=== PATIENT | female | born 1960 | race Caucasian/White ===

== ENCOUNTER 2018-07-21 00:48 | Outpatient (CLI) | payer MEDICARE, SELFPAY ==
--- NOTE | 2018-07-21 07:30 | MERGE_ITS ---
*[facility]* *[facility]* [address] [place] [address] Date of study: 07/21/2018 Transthoracic Echocardiography M-mode, complete 2D, complete spectral Doppler, and color Doppler *STUDY CONCLUSIONS* Summary: 1. Left ventricle: The cavity size was normal. Wall thickness was increased in a pattern of mild LVH. Systolic function was normal. The estimated ejection fraction was 60-65%. Wall motion was normal; there were no regional wall motion abnormalities. 2. Right ventricle: The cavity size was normal. Wall thickness was mildly increased. Systolic function was normal. *PATIENT PRESENTATION* Height: 165.1cm ((65in) ) S/D Pressure: 125 / 66 Weight: 122.5kg ((269.4lb) ) BSA: 2.44m^2 Test start time: 07:40 AM. Test stop time: 08:30 AM. CONSULTING Steven Jeffries MD PERFORMING Unknown PERFORMING [facility] ENVIRONMENTAL ADVISOR RT Tatiana (R)(CT), [facility] ORDERING Francy Lowe REFERRING Francy Lowe *PROCEDURE DATA* Procedure information: The patient was identified by two identifiers. This study was interpreted by [facility]. Pertinent images and digital data are archived for permanent storage and are available for subsequent review. No prior study was available for comparison. Study status: Routine. Transthoracic echocardiography. M-mode, complete 2D, complete spectral Doppler, and color Doppler. A Transthoracic Echocardiogram was performed. Scanning was performed from the parasternal, apical, subcostal, and suprasternal notch acoustic windows. Images were obtained using an [id number] cardiac ultrasound machine. Image quality was adequate. Study completion: The patient tolerated the procedure well. History: PMH: Intermittent chest pain r07.89. *CARDIAC ANATOMY* Left ventricle: The cavity size was normal. Wall thickness was increased in a pattern of mild LVH. Systolic function was normal. The estimated ejection fraction was 60-65%. Wall motion was normal; there were no regional wall motion abnormalities. Diastolic parameters were normal. Aortic valve: Trileaflet; normal thickness leaflets. Mobility was not restricted. Doppler: Transvalvular velocity was within the normal range. There was no stenosis. There was no significant regurgitation. VTI ratio of LVOT to aortic valve: 0.68. Valve area (VTI): 2.3cm^2. Indexed valve area (VTI): 1cm^2/m^2. Peak velocity ratio of LVOT to aortic valve: 0.55. Valve area (Vmax): 1.9cm^2. Indexed valve area (Vmax): 0.8cm^2/m^2. Mean velocity ratio of LVOT to aortic valve: 0.59. Valve area (Vmean): 2.1cm^2. Indexed valve area (Vmean): 0.8cm^2/m^2. Mean gradient (S): 6.8mm Hg. Peak gradient (S): 12.6mm Hg. Aorta: Aortic root: The aortic root was normal in size. Ascending aorta: The ascending aorta was normal in size. Mitral valve: Structurally normal valve. Mobility was not restricted. Doppler: Transvalvular velocity was within the normal range. There was no evidence for stenosis. There was no significant regurgitation. Valve area by pressure half-time: 3.7cm^2. Indexed valve area by pressure half-time: 1.5cm^2/m^2. Left atrium: The atrium was normal in size. Right ventricle: The cavity size was normal. Wall thickness was mildly increased. Systolic function was normal. Pulmonic valve: Doppler: Transvalvular velocity was within the normal range. There was no evidence for stenosis. There was no significant regurgitation. Peak gradient (S): 5.2mm Hg. Tricuspid valve: Structurally normal valve. Doppler: Transvalvular velocity was within the normal range. There was no evidence for stenosis. There was no significant regurgitation. Pulmonary artery: Systolic pressure could not be accurately estimated. Right atrium: The atrium was normal in size. Pericardium: A prominent pericardial fat pad was present. Systemic veins: Inferior vena cava: Well visualized. The vessel was patent and normal in size. The respirophasic diameter changes were in the normal range (greater than or equal to 50%). Baseline ECG: Normal sinus rhythm. Measurements Left ventricle Value Reference LV ID, ED, PLAX 4.8 cm 3.5 - 6.0 LV ID, ES, PLAX 3.3 cm 2.1 - 4.0 LV PW thickness, ED, PLAX 1.2 cm LV end-diastolic volume, 1-p A2C 69 ml LV ejection fraction, 1-p A2C 64 % LV end-diastolic volume, 1-p A4C 68 ml LV ejection fraction, 1-p A4C 57 % LV e', lateral 0.104 m/sec LV E/e', lateral 6 LV e', medial 0.075 m/sec LV E/e', medial 8 LV e', average 0.09 m/sec LV E/e', average 7 Ventricular septum Value Reference IVS thickness, ED, PLAX 1.2 cm LVOT Value Reference LVOT ID, A-P 2.1 cm LVOT area 3.5 cm^2 LVOT peak velocity, S 0.97 m/sec LVOT mean velocity, S 0.75 m/sec LVOT VTI, S 22.4 cm LVOT peak gradient, S 3.8 mm Hg LVOT mean gradient, S 2.4 mm Hg Stroke volume (SV), LVOT DP 77 ml Stroke index (SV/bsa), LVOT DP 32 ml/m^2 Aortic valve Value Reference Aortic valve peak velocity, S 1.8 m/sec Aortic valve mean velocity, S 1.26 m/sec Aortic valve VTI, S 33.0 cm Aortic mean gradient, S 6.8 mm Hg Aortic peak gradient, S 12.6 mm Hg VTI ratio, LVOT/AV 0.68 Aortic valve area, VTI 2.3 cm^2 Velocity ratio, peak, LVOT/AV 0.55 Aortic valve area, peak velocity 1.9 cm^2 Velocity ratio, mean, LVOT/AV 0.59 Aortic valve area, mean velocity 2.1 cm^2 Aortic valve area/bsa, mean velocity 0.8 cm^2/m^2 Aorta Value Reference Aortic root ID, ED 2.7 cm Ascending aorta ID, A-P, S 3.3 cm Left atrium Value Reference LA ID, A-P, ES 3.7 cm LA ID/bsa, A-P 1.5 cm/m^2 <=2.2 LA area, ES, A4C 16.8 cm^2 8.8 - 23.4 LA area, ES, A2C 15 cm^2 LA volume/bsa, ES, 1-p A4C 20 ml/m^2 LA volume, ES, 2-p 38 ml LA volume/bsa, ES, 2-p 15 ml/m^2 LA/aortic root ratio 1.36 Mitral valve Value Reference Mitral E-wave peak velocity 0.61 m/sec Mitral A-wave peak velocity 0.71 m/sec Mitral deceleration time 208 ms 150 - 230 Mitral pressure half-time 60 ms Mitral E/A ratio, peak 0.85 Mitral valve area, PHT, DP 3.7 cm^2 Pulmonary veins Value Reference Pulmonary vein peak velocity, S 0.4 m/sec Pulmonary vein peak velocity, D 0.25 m/sec Pulmonary vein velocity ratio, peak, 1.6 S/D Pulmonary vein A-wave reversal peak 0.3 m/sec velocity Pulmonary vein A-wave reversal 108 ms duration Tricuspid valve Value Reference Tricuspid regurg peak velocity 2.6 m/sec Tricuspid peak RV-RA gradient 27.6 mm Hg Right atrium Value Reference RA area, ES, A4C 13.4 cm^2 8.3 - 19.5 Pulmonic valve Value Reference Pulmonic peak gradient, S 5.2 mm Hg Legend: (L) and (H) michelle values outside specified reference range. I have personally reviewed the images and have reviewed and edited the reported findings. Electronically signed by John Telles 07/21/2018 11:40
== END 2018-07-21 01:08 ==
PROVIDERS: PCP Internal Medicine; Visit Provider Nurse Practitioner Family
DX: R07.89 Other chest pain (principal); I10 Essential (primary) hypertension; E78.5 Hyperlipidemia, unspecified
CPT/HCPCS: 93306

== ENCOUNTER 2018-07-27 00:21 | Outpatient (CLI) | payer MEDICARE, SELFPAY ==
--- NOTE | 2018-07-27 08:30 | MERGEMPI_ITS ---
*[facility]* *[facility]* [address] [place] [address] Myocardial Perfusion Imaging - SPECT Donnie protocol Date of study: 07/27/2018 *PATIENT PRESENTATION* Height: 165.1cm (65in) Blood Pressure: Weight: 125.9kg (277lb) BSA: 2.47m^2 Referring physician: Carlos Jenkins MD Ordering physician: Francy Lowe Impressions: Normal perfusion by Tc99m Sestamibi Imaging. Summary: 1. Myocardial perfusion imaging: No myocardial perfusion defects noted. 2. The calculated left ventricular ejection fraction after stress: 61%. No left ventricular regional motion abnormality. 3. Stress: The target heart rate was not achieved. Indication: R07.89. History: REASON FOR TESTING: PATIENT REPORTS INTERMITTENT DULL ACHE MIDSTERNAL CHEST PAIN WHICH OCCASIONALLY RADIATES TO HER JAW. SHE ALSO OCCASIONALLY HAS POKER LIKE PAIN BEHIND LEFT SHOULDER BLADE, AND OCCASIONAL DULL ACHE UNDER LEFT BREAST. THESE SYMPTOMS MOSTLY HAPPEN AT REST AND OCCASIONALLY WITH ACTIVITY. SHE REPORTS THESE SYMPTOMS HAVE BEEN HAPPENING FOR APPROXIMATELY A YEAR. THESE SYMPTOMS HAPPEN A COUPLE TIMES A WEEK WITH EPISODES LASTING APPROXIMATELY 30 SECONDS. SHE DENIES CHEST PAIN AND ANY ASSOCIATED SYMPTOMS UPON ARRIVAL TO TESTING TODAY. SIGNIFICANT PAST MEDICAL HISTORY: DIABETES SMOKING STATUS: CURRENT SMOKER WHO HAS SMOKED FOR 42 YEARS 1/2 PPD. EXERCISE ROUTINE: SEDENTARY LIFESTYLE. Risk factors: Family history of coronary artery disease. Current tobacco use. Diabetes mellitus. Obesity. Dyslipidemia. Cholesterol: 270mg/dl. HDL: 42mg/dl. LDL: 193mg/dl. Triglycerides: 157mg/dl. ALLERGIES: ZOLOFT, INDOCEN, PERCOCET, VICODIN, METFORMIN HCL, CODEINE, CELEXA, VICTOZA, BYETTA, VYTORIN, CRESTOR, LIPITOR, WELLBUTRIN. MEDICATIONS: PRILOSEC 40 MG BID, CYCLOBENZAPRINE HCL 10 MG HS, CICLOPIROX 8% EXTERNAL SOLUTION--REMOVE EVERY 7 DAYS, TRESIBA 82 UNITS DAILY. Imaging Technique: Protocol: Donnie protocol. Acquisition: Gated SPECT; 1 day - rest/stress. The patient was imaged in the supine position. Attenuation correction used. Isotope administration: - Rest. Tc[99m]-sestamibi. Dose: 12.4mCi. Injection time: 08:30 AM. Injection to stress time: 00:45. - Stress. Tc[99m]-sestamibi. Dose: 38mCi. Injection time: 10:34 AM. 1-2 min before end of exercise Baseline ECG: SINUS RHYTHM. 74BPM. Stress protocol: + +---+ + + !Stage !HR !BP (mmHg) !Comments ! + +---+ + + !Baseline supine !74 !130/86 (101)! ! + +---+ + + !Baseline standing !85 !140/88 (105)! ! + +---+ + + !Stage I; 1.7mph, 10degrees; 3 min!113! ! ! + +---+ + + !Stage II; 2.5mph, 12degrees; 3 !135! ! ! !min ! ! ! ! + +---+ + + !Recovery; 1 min !117!200/80 (120)! ! + +---+ + + !Recovery; 3 min !98 !142/80 (101)! ! + +---+ + + !1 min !107!120/70 (87) !Inject Regadenoson.! + +---+ + + !2 min !100!120/72 (88) ! ! + +---+ + + !3 min !99 !120/80 (93) ! ! + +---+ + + * Stress results: Maximal heart rate during stress was 135bpm (83% of maximal predicted heart rate). The maximal predicted heart rate was 163bpm. The target heart rate was not achieved. The rate-pressure product for the peak heart rate and blood pressure was 20178gd Hg/min. Stress ECG: STRESS TEST ENDED IN 5 MINUTES 55 SECONDS DUE TO FATIGUE AND KNEE DISCOMFORT. NORMAL HEART RATE AND BLOOD PRESSURE RESPONSE TO EXERCISE. MAX HEART RATE: 135 % OF TARGET HEART RATE ACHIEVED--UNABLE TO OBTAIN DUE TO ARTIFACT. MET'S: UNABLE TO OBTAIN DUE TO ARTIFACT. NO ECTOPY. NO ANGINA. NO SIGNIFICANT ST SEGMENT CHANGES. FUNCTIONAL CAPACITY: AVERAGE PATIENT TRANSITIONED LEXISCAN INJECTION DUE TO INABILITY TO ACHEIVE 85% TARGET HEART RATE. LEXISCAN STRESS TEST ENDED IN 6 MINUTES 43 SECONDS. NORMAL HEART RATE AND BLOOD PRESSURE RESPONSE TO LEXISCAN INJECTION. NO ECTOPY. NO ANGINA. NO SIGNIFICANT ST SEGMENT CHANGES. Myocardial perfusion: Imaging information: gated. No myocardial perfusion defects noted. Ventricular Function (Wall Motion): The calculated left ventricular ejection fraction after stress: 61%. No left ventricular regional motion abnormality. Study data: Carlos Jenkins MD supervised and was readily available during the procedure. This study was interpreted by [facility]. Study status: Routine. Consent: The risks, benefits, and alternatives to the procedure were explained to the patient and informed consent was obtained. Procedure: Initial setup. A baseline ECG was recorded. Surface ECG leads and manual cuff blood pressure measurements were monitored. Heart sounds: Normal. Lung sounds: Normal. Treadmill exercise testing was performed using the Donnie protocol. Study completion: All catheters inserted during the procedure were removed. The patient tolerated the procedure well and was discharged from the lab. Discharge: The patient left the laboratory in stable condition. Birthdate: Patient birthdate: 1960. Sex: Gender: female. Study date: Study date: 07/27/2018. Study time: 00:01 AM. Electronically signed by Carlos Jenkins MD 07/27/2018 18:52
[2018-07-27] MEDS: Regadenoson 0.4 MG/5 ML SYR IVP (10:47)
== END 2018-07-27 00:41 ==
PROVIDERS: PCP Internal Medicine; Visit Provider Nurse Practitioner Family
DX: R07.89 Other chest pain (principal); E11.9 Type 2 diabetes mellitus without complications; E78.5 Hyperlipidemia, unspecified; F17.200 Nicotine dependence, unspecified, uncomplicated; Z82.49 Family history of ischemic heart disease and other diseases of the circulatory system
CPT/HCPCS: 78452; 93016; 93018; 93017; J2785

== ENCOUNTER 2019-02-02 22:30 | Outpatient (REF) | payer MEDICARE, SELFPAY ==
[2019-02-02 20:57] LABS: Anion Gap 8.2 mmol/L (3-11); BUN 11 mg/dL (7-18); CO2 28.8 mmol/L (21.0-32.0); CREATININE 0.77 mg/dL (0.55-1.02); Calcium 8.7 mg/dL (8.5-10.1); Calculated LDL 183 mg/dL; Chloride 103 mmol/L (98-107); Cholesterol 250 mg/dL (50-200); Glucose 171 mg/dL (70-100); HDL Cholesterol 41 mg/dL (40-60); Potassium 4.2 mmol/L (3.5-5.1); Sodium 140 mmol/L (136-145); Triglyceride 130 mg/dL (30-150)
== END 2019-02-02 22:50 ==
LOC: NCHCN 22:30
PROVIDERS: PCP Internal Medicine; Visit Provider Nurse Practitioner Family
DX: E78.5 Hyperlipidemia, unspecified (principal)
CPT/HCPCS: 80048; 80061

== ENCOUNTER 2019-05-17 09:44 | Outpatient (REF) | payer MEDICARE, SELFPAY | END 2019-05-17 10:04 | LOC: NCHCN 09:44 | PROVIDERS: PCP Internal Medicine; Visit Provider Nurse Practitioner Family | DX: N76.0 Acute vaginitis (principal) | CPT/HCPCS: 87480; 87510; 87660 ==

== ENCOUNTER 2019-06-03 09:37 | Outpatient (REF) | payer MEDICARE, SELFPAY ==
[2019-06-03 19:48] LABS: FREE T4 0.96 ng/dL (0.76-1.46); TSH 2.25 uIU/mL (0.36-3.74)
[2019-06-04 17:13] LABS: T3,Free 3.3 pg/mL (2.8-5.3)
[2019-06-07 10:58] LABS: Thyroglobulin Antibody 63 U/mL (<=60); Thyroperoxidase Antibody 182 U/mL (<=60)
== END 2019-06-03 09:57 ==
LOC: NCHCN 09:37
PROVIDERS: PCP Internal Medicine; Visit Provider Nurse Practitioner Family
DX: L65.9 Nonscarring hair loss, unspecified (principal); R53.83 Other fatigue
CPT/HCPCS: 86376; 84439; 84443; 84481

== ENCOUNTER 2019-07-07 10:14 | Outpatient (REF) | payer MEDICARE, SELFPAY ==
[2019-07-07 21:01] LABS: COMMENT (LAB VIEW ONLY) 82.07 mg/dL; Microalb ug/mg Crea 4.9 ug/mg Cr
== END 2019-07-07 10:34 ==
LOC: NCHCN 10:14
PROVIDERS: PCP Internal Medicine; Visit Provider Nurse Practitioner Family
DX: E11.65 Type 2 diabetes mellitus with hyperglycemia (principal)
CPT/HCPCS: 82043; 82570

== ENCOUNTER 2019-10-13 10:29 | Outpatient (REF) | payer MEDICARE, SELFPAY ==
[2019-10-13 19:50] LABS: HCT 48.3 % (36.0-46.0); HGB 15.4 g/dL (12.0-15.5); Mean Corp. HGB Concentration 31.9 g/dL (32.0-36.0); Mean Corpuscular Hemoglobin 26.2 pg (27.0-33.0); Mean Corpuscular Volume 82.3 fL (80-95); Mean Platelet Volume 11.6 fL (8.0-11.0); Platelet Count 253 x1000/uL (130-400); RBC 5.87 m/cumm (4.00-5.20); RBC Distribution Width 14.1 % (11.7-14.6); White Blood Cell Count 6.36 k/cumm (4.4-10.8)
[2019-10-13 20:26] LABS: FREE T4 0.96 ng/dL (0.76-1.46); TSH 1.75 uIU/mL (0.36-3.74)
[2019-10-14 16:43] LABS: T3,Free 4.4 pg/mL (2.8-5.3)
[2019-10-15 10:59] LABS: Thyroglobulin Antibody 61 U/mL (<=60); Thyroperoxidase Antibody 324 U/mL (<=60)
== END 2019-10-13 10:49 ==
LOC: NCHCN 10:29
PROVIDERS: PCP Internal Medicine; Visit Provider Nurse Practitioner Family
DX: L65.9 Nonscarring hair loss, unspecified (principal)
CPT/HCPCS: 85027; 86376; 84439; 84443; 84481

== ENCOUNTER 2020-01-28 11:17 | Outpatient (REF) | payer MEDICARE, SELFPAY ==
[2020-01-28 22:29] LABS: Calculated LDL 162 mg/dL (<100); Cholesterol 238 mg/dL (<200); HDL Cholesterol 33 mg/dL (40-60); TSH 1.05 uIU/mL (0.36-3.74); Triglyceride 217 mg/dL (<150)
[2020-01-28 22:38] LABS: ESR 9 mm/hr (0-30)
[2020-01-28 22:59] LABS: FREE T4 0.83 ng/dL (0.76-1.46)
[2020-01-30 20:05] LABS: CRP, High Sensitivity 9.57 mg/L (See Note); Rheumatoid Factor <8.6 IU/mL (<12.0)
[2020-01-30 20:37] LABS: T3, Total 155 ng/dL (97-169)
[2020-01-31 09:20] LABS: Cyclic Citrullinated Peptide <2.5 U/mL (<5.0)
== END 2020-01-28 11:37 ==
LOC: NCHCN 11:17
PROVIDERS: PCP Internal Medicine; Visit Provider Physician Assistant
DX: E06.3 Autoimmune thyroiditis (principal); E11.40 Type 2 diabetes mellitus with diabetic neuropathy, unspecified; M25.50 Pain in unspecified joint
CPT/HCPCS: 80061; 85652; 86141; 86200; 84439; 84443; 84480; 86431

== ENCOUNTER 2020-09-12 13:30 | Outpatient (REF) | payer MEDICARE, SELFPAY ==
[2020-09-13 10:22] LABS: Hepatitis C Ab w Rflx HCV PCR Negative (Negative)
[2020-09-13 10:27] LABS: HBs Antibody, Quant <3.1 mIU/mL (See Note); Hepatitis B Surface Ab Negative (See Note)
[2020-09-13 11:11] LABS: Hep A Total Ab w Rflx IgM Negative (Negative)
== END 2020-09-12 13:31 | disposition home or self-care (01) ==
LOC: NCHCN 13:30
PROVIDERS: PCP Internal Medicine; Visit Provider Nurse Practitioner Family
DX: K76.0 Fatty (change of) liver, not elsewhere classified (principal)
CPT/HCPCS: 86706; 86709; 86803

== ENCOUNTER 2020-10-16 16:31 | Outpatient (REF) | payer OTHER, SELFPAY ==
[2020-10-16 16:03] LABS: Anion Gap 4.9 mmol/L (3-11); BUN 11 mg/dL (7-18); CO2 33.1 mmol/L (21.0-32.0); CREATININE 0.8 mg/dL (0.55-1.02); Chloride 104 mmol/L (98-107); Glucose 140 mg/dL (74-106); Potassium 4.5 mmol/L (3.5-5.1); Sodium 142 mmol/L (136-145); TSH (W/Ref FT4) 1.07 uIU/mL (0.36-3.74)
== END 2020-10-16 16:32 | disposition home or self-care (01) ==
LOC: NCHCN 16:31
PROVIDERS: PCP Internal Medicine; Visit Provider Nurse Practitioner Family
DX: E11.40 Type 2 diabetes mellitus with diabetic neuropathy, unspecified (principal); E06.3 Autoimmune thyroiditis
CPT/HCPCS: 80048; 83036; 84443

== ENCOUNTER 2021-01-23 12:50 | Outpatient (REF) | payer OTHER, SELFPAY ==
[2021-01-23 20:26] LABS: ALT 39 U/L (14-59); AST 28 U/L (15-37); Albumin 3.5 g/dL (3.4-5.0); Alkaline Phosphatase 77 U/L (46-116); Anion Gap 2.7 mmol/L (3-11); BUN 14 mg/dL (7-18); Bilirubin, Total 0.3 mg/dL (0.2-1.0); CO2 33.3 mmol/L (21.0-32.0); CREATININE 0.8 mg/dL (0.55-1.02); Calcium 8.9 mg/dL (8.5-10.1); Chloride 107 mmol/L (98-107); FREE T4 0.76 ng/dL (0.76-1.46); Glucose 106 mg/dL (74-106); Potassium 4.5 mmol/L (3.5-5.1); Sodium 143 mmol/L (136-145); TSH 0.91 uIU/mL (0.36-3.74); Total Protein 6.1 g/dL (6.4-8.2)
[2021-01-23 20:59] LABS: Microalb ug/mg Crea 4.4 ug/mg Cr
[2021-01-24 16:44] LABS: T3,Free 3.7 pg/mL (2.8-5.3)
[2021-01-24 18:15] LABS: Thyroglobulin Antibody 34 U/mL (<=60); Thyroperoxidase Antibody 98 U/mL (<=60)
== END 2021-01-23 12:51 | disposition home or self-care (01) ==
LOC: NCHCN 12:50
PROVIDERS: PCP Internal Medicine; Referring Provider Nurse Practitioner Family; Visit Provider Nurse Practitioner Family
DX: E06.3 Autoimmune thyroiditis (principal); E11.40 Type 2 diabetes mellitus with diabetic neuropathy, unspecified
CPT/HCPCS: 80053; 82043; 82570; 84439; 84443; 84481; 86376; 86800

== ENCOUNTER 2021-05-08 15:55 | Outpatient (REF) | payer OTHER, SELFPAY ==
[2021-05-10 10:35] LABS: COVID-19 RT-PCR UVMMC Result Negative (Negative)
== END 2021-05-08 15:56 | disposition home or self-care (01) ==
LOC: NCHCN 15:55
PROVIDERS: PCP Internal Medicine; Visit Provider Physician Assistant
DX: Z20.822 Contact with and (suspected) exposure to COVID-19 (principal); R09.81 Nasal congestion
CPT/HCPCS: U0003; U0005

== ENCOUNTER 2022-01-24 18:29 | Outpatient (REF) | payer MEDICARE, SELFPAY ==
[2022-01-24 20:22] LABS: Anion Gap 5.7 mmol/L (3-11); BUN 8 mg/dL (7-18); CO2 30.3 mmol/L (21.0-32.0); CREATININE 0.7 mg/dL (0.55-1.02); Calcium 8.7 mg/dL (8.5-10.1); Chloride 104 mmol/L (98-107); Estimated GFR 98.95 (mL/min/1.73m2); FREE T4 0.92 ng/dL (0.76-1.46); Glucose 121 mg/dL (74-106); Sodium 140 mmol/L (136-145)
[2022-01-25 20:03] LABS: T3, Total 165 ng/dL (97-169)
[2022-01-29 16:28] LABS: 2-OH-Ethyl-Flurazepam Negative ng/mL (Cutoff: 10); 7-NH-Clonazepam 250 ng/mL (Cutoff: 10); 7-NH-Flunitrazepam Negative ng/mL (Cutoff: 10); Alpha OH-Alprazolam Negative ng/mL (Cutoff: 10); Alpha-OH Midazolam Negative ng/mL (Cutoff: 10); Alpha-OH-Triazolam Negative ng/mL (Cutoff: 10); Alprazolam Negative ng/mL (Cutoff: 10); Benzodiazepines Interpretation Positive.; Chlordiazepoxide Negative ng/mL (Cutoff: 10); Clobazam Negative ng/mL (Cutoff: 10); Clonazepam 21 ng/mL (Cutoff: 10); Diazepam Negative ng/mL (Cutoff: 10); Lorazepam Negative ng/mL (Cutoff: 10); Midazolam Negative ng/mL (Cutoff: 10); N-Desmethylclobazam Negative ng/mL (Cutoff: 10); Prazepam Negative ng/mL (Cutoff: 10); Temazepam Negative ng/mL (Cutoff: 10); Triazolam Negative ng/mL (Cutoff: 10); Zolpidem Carboxylic acid Negative ng/mL (Cutoff: 10)
== END 2022-01-24 18:30 | disposition home or self-care (01) ==
LOC: NCHCN 18:29
PROVIDERS: PCP Internal Medicine; Visit Provider Physician Assistant
DX: E11.40 Type 2 diabetes mellitus with diabetic neuropathy, unspecified (principal); E06.3 Autoimmune thyroiditis; F32.A Depression, unspecified
CPT/HCPCS: 80048; 80346; 84439; 84443; 84480

== ENCOUNTER 2022-06-26 14:22 | Outpatient (CLI) | payer MEDICARE, SELFPAY ==
--- NOTE | 2022-06-26 14:15 | DI.RAD_ITS ---
Exam(s) XR KNEE LT 3V AP,LAT,TRACY EXAM: XR KNEE LT 3V AP,LAT,TRACY CLINICAL HISTORY: KNEE PAIN. TECHNIQUE: 2D digital imaging was performed. Three views. COMPARISON: No exams were available for comparison FINDINGS: BONES: No acute fracture is present. No bony destructive lesion is seen. JOINTS: Moderate to severe narrowing of the L lateral femoral tibial joint space. Mild periarticular spurring. Mild lateral subluxation. Mild narrowing of the lateral femoral tibial joint space and p eriarticular spurring. No joint effusion is seen. SOFT TISSUE: Normal. IMPRESSION: Degenerative changes greatest of the patellofemoral joint. DATA REPOSITORY: RADIATION DOSE DELIVERED:
--- NOTE | 2022-06-26 14:45 | DI.RAD_ITS ---
Exam(s) XR KNEE RT 3V AP,LAT,TRACY EXAM: XR KNEE RT 3V AP,LAT,TRACY CLINICAL HISTORY: right knee f/u. TECHNIQUE: 2D digital imaging was performed. Three views. COMPARISON: CR XR KNEE LT 3V AP,LAT,TRACY from 06/26/2022 FINDINGS: There is a total knee prosthesis. The alignment appears satisfactory. There are no suspicious bony lucencies. Mild vascular calcification noted. No joint effusion visible. IMPRESSION: Unremarkable knee prosthesis. DATA REPOSITORY: RADIATION DOSE DELIVERED:
== END 2022-06-26 14:23 | disposition home or self-care (01) ==
PROVIDERS: PCP Internal Medicine; Referring Provider Internal Medicine; Visit Provider Student in an Organized Health Care Education/Training Program
DX: Z96.651 Presence of right artificial knee joint; M17.12 Unilateral primary osteoarthritis, left knee; M24.561 Contracture, right knee
CPT/HCPCS: 20610; 73562; 99204; J1030

== ENCOUNTER → 2022-07-22 14:09 | Outpatient (BNVA) | payer MEDICARE, SELFPAY | PROVIDERS: PCP Internal Medicine; Referring Provider Internal Medicine; Visit Provider Student in an Organized Health Care Education/Training Program | DX: T84.89XA Other specified complication of internal orthopedic prosthetic devices, implants and grafts, initial encounter (principal); M25.661 Stiffness of right knee, not elsewhere classified; Z96.651 Presence of right artificial knee joint | CPT/HCPCS: 99214 ==

== ENCOUNTER 2022-10-29 12:33 | Outpatient (REF) | payer MEDICARE, SELFPAY ==
[2022-11-01 19:02] LABS: 2-OH-Ethyl-Flurazepam Negative ng/mL (Cutoff: 10); 7-NH-Clonazepam 383 ng/mL (Cutoff: 10); 7-NH-Flunitrazepam Negative ng/mL (Cutoff: 10); Alpha OH-Alprazolam Negative ng/mL (Cutoff: 10); Alpha-OH Midazolam Negative ng/mL (Cutoff: 10); Alpha-OH-Triazolam Negative ng/mL (Cutoff: 10); Alprazolam Negative ng/mL (Cutoff: 10); Benzodiazepines Interpretation Positive.; Chlordiazepoxide Negative ng/mL (Cutoff: 10); Clobazam Negative ng/mL (Cutoff: 10); Clonazepam 14 ng/mL (Cutoff: 10); Diazepam Negative ng/mL (Cutoff: 10); Flurazepam Negative ng/mL (Cutoff: 10); Lorazepam Negative ng/mL (Cutoff: 10); Midazolam Negative ng/mL (Cutoff: 10); N-Desmethylclobazam Negative ng/mL (Cutoff: 10); Prazepam Negative ng/mL (Cutoff: 10); Temazepam Negative ng/mL (Cutoff: 10); Triazolam Negative ng/mL (Cutoff: 10); Zolpidem Carboxylic acid Negative ng/mL (Cutoff: 10)
== END 2022-10-29 12:34 | disposition home or self-care (01) ==
LOC: LBN 12:33
PROVIDERS: PCP Internal Medicine; Visit Provider Physician Assistant
DX: F41.8 Other specified anxiety disorders (principal)
CPT/HCPCS: 80346

== ENCOUNTER 2023-01-29 13:26 | Outpatient (REF) | payer MEDICARE, SELFPAY ==
[2023-01-29 20:50] LABS: HCT 46.8 % (36.0-46.0); HGB 15.1 g/dL (11.2-15.7); MCHC 32.3 % (32.0-36.0); MCV 84 fL (80-95); Platelet Count 224 10^3/uL (130-400); RBC 5.59 10^6/uL (3.93-5.22); RDW 12.9 % (11.7-14.6); RDW-SD 39.2 fL; WBC 7.19 10^3/uL (4.4-10.8)
[2023-01-29 21:05] LABS: ALT 25 U/L (14-59); AST 15 U/L (15-37); Albumin 3.5 g/dL (3.4-5.0); Alkaline Phosphatase 67 U/L (46-116); Anion Gap 4.7 mmol/L (3-11); BUN 14 mg/dL (7-18); Bilirubin, Total 0.3 mg/dL (0.2-1.0); CO2 30.3 mmol/L (21.0-32.0); CREATININE 0.8 mg/dL (0.55-1.02); Calcium 9.3 mg/dL (8.5-10.1); Calculated LDL 48 mg/dL (<100); Chloride 102 mmol/L (98-107); Cholesterol 125 mg/dL (<200); Estimated GFR 83.78 (mL/min/1.73m2); Glucose 114 mg/dL (74-106); HDL Cholesterol 50 mg/dL (40-60); Potassium 4.4 mmol/L (3.5-5.1); Sodium 137 mmol/L (136-145); TSH (W/Ref FT4) 0.58 uIU/mL (0.36-3.74); Total Protein 6.6 g/dL (6.4-8.2); Triglyceride 139 mg/dL (<150)
[2023-01-30 19:15] LABS: T3, Total 164 ng/dL (97-169)
== END 2023-01-29 13:27 | disposition home or self-care (01) ==
LOC: NCHCN 13:26
PROVIDERS: PCP Internal Medicine; Visit Provider Physician Assistant
DX: E06.3 Autoimmune thyroiditis (principal); E11.40 Type 2 diabetes mellitus with diabetic neuropathy, unspecified; I25.10 Atherosclerotic heart disease of native coronary artery without angina pectoris
CPT/HCPCS: 80053; 80061; 85027; 84443; 84480

== ENCOUNTER 2023-05-15 15:43 | Outpatient (REF) | payer MEDICARE, SELFPAY ==
[2023-05-15 18:58] LABS: COMMENT (LAB VIEW ONLY) 205.31 mg/dL; Microalb ug/mg Crea 4.8 ug/mg Cr
[2023-05-15 20:25] LABS: Hemoglobin A1C 6.5 % (<5.7)
[2023-05-22 11:38] LABS: 2-OH-Ethyl-Flurazepam Negative ng/mL (Cutoff: 10); 7-NH-Clonazepam 208 ng/mL (Cutoff: 10); 7-NH-Flunitrazepam Negative ng/mL (Cutoff: 10); Alpha OH-Alprazolam Negative ng/mL (Cutoff: 10); Alpha-OH Midazolam Negative ng/mL (Cutoff: 10); Alpha-OH-Triazolam Negative ng/mL (Cutoff: 10); Alprazolam Negative ng/mL (Cutoff: 10); Benzodiazepines Interpretation Positive.; Chlordiazepoxide Negative ng/mL (Cutoff: 10); Clobazam Negative ng/mL (Cutoff: 10); Clonazepam Negative ng/mL (Cutoff: 10); Diazepam Negative ng/mL (Cutoff: 10); Flurazepam Negative ng/mL (Cutoff: 10); Lorazepam Negative ng/mL (Cutoff: 10); Midazolam Negative ng/mL (Cutoff: 10); N-Desmethylclobazam Negative ng/mL (Cutoff: 10); Prazepam Negative ng/mL (Cutoff: 10); Temazepam Negative ng/mL (Cutoff: 10); Triazolam Negative ng/mL (Cutoff: 10); Zolpidem Carboxylic acid Negative ng/mL (Cutoff: 10)
== END 2023-05-15 15:44 | disposition home or self-care (01) ==
LOC: NCHCN 15:43
PROVIDERS: PCP Internal Medicine; Visit Provider Physician Assistant
DX: E11.43 Type 2 diabetes mellitus with diabetic autonomic (poly)neuropathy (principal)
CPT/HCPCS: 80346; 82043; 82570; 83036

== ENCOUNTER 2023-11-25 15:27 | Outpatient (REF) | payer MEDICARE, SELFPAY ==
--- OUTSIDE RECORDS SUMMARY | 2023-11-25 15:29 | XMS_ITS | Continuity of Care Document ---
Author Organization [facility] Address [address] [place] [address] Care Team Providers Care [employer] Supervisor Name Role Phone Primeau IPHCSteven Primary Care Physician Encounter [facility] Date(s): 07/26/22 - 07/26/[address] [phone] Discharge Disposition: Home or Self Care Attending Physician: Gina Castro MD Admitting Physician: Gina Castro MD Allergies, Adverse Reactions, Alerts Substance Reaction Severity Status ADHESIVE TAPE 1, 2 Unknown Active codeine Itching Unknown Active indomethacin 3 Unknown Active sertraline Chest pain Unknown Active acetaminophen-hydrocodone Itching Unknown Ac tive acetaminophen-oxycodone Itching Unknown Acti ve atorvastatin 4 Unknown Active citalopram 5 Unknown Active escitalopram 6 Unknown Active rosuvastatin 7 Unknown Active ezetimibe-simvastatin 8 Unknown Acti ve buPROPion 9 Unknown Active exenatide Nausea Unknown Active metFORMIN Itching Unknown Active DULoxetine 10 Unknown Active liraglutide Unknown Active 1skin chambers [id number] 3Headache 4Constipation 5GI upset 6GI upset 7Constipation 8Constipation 9Increased depression 10Increases blood sugar Assessment and Plan Extracted from: Title:Clinical Document Author:Alicia Arnett te:07/26/22 Diagnosis: Cellulitis Comment: Functional Status 07/26/22 Recent Travel History No recent travel Other exposure to Infectious Disease Non e Medications !-Keflex 500 mg oral capsule 500 mg = 1 cap, Oral, QID, X 10 days, # 39 cap, 0 Refill(s), 08/05/22 13:24:00 EDT, Pharmacy: [id number], 165, cm, 07/26/22 13:13:00 EDT, Height/Length Dosing, 95, kg, 07/26/22 13:13:00 EDT, Weight Dosing Start Date: 07/26/22 Stop Date: 08/05/22 Status: Ordered Aspi-Cor 81 mg oral delayed release tablet 0 Refill(s) Start Date: 10/29/21 Status: Ordered clonazePAM 1 mg oral tablet 0 Refill(s) Start Date: 12/17/21 Status: Ordered clopidogrel 75 mg oral tablet 75 mg = 1 tab, Oral, Daily, 0 Refill(s) Start Date: 10/22/21 Status: Ordered cyclobenzaprine 10 mg oral tablet 10 mg = 1 tab, Oral, TID, PRN as needed for muscle spasm, # 30 tab, 0 Refill(s), Pharmacy: [id number], 165, cm, 12/17/21 12:57:00 EDT, Height/Length Dosing, 98.88, kg, 12/17/21 12:57:00 EDT, Weight Dosing Start Date: 12/17/21 Status: Ordered Dexilant 30 mg oral delayed release capsule 0 Refill(s) Start Date: 12/17/21 Status: Ordered doxycycline monohydrate 100 mg oral tablet 100 mg = 1 tab, Oral, BID, X 10 days, # 19 tab, 0 Refill(s), 08/05/22 13:24:00 EDT, Pharmacy: [id number], 165, cm, 07/26/22 13:13:00 EDT, Height/Length Dosing, 95, kg, 07/26/22 13:13:00 EDT, Weight Dosing Start Date: 07/26/22 Stop Date: 08/05/22 Status: Ordered estradiol 0.1 mg/g vaginal cream 0 Refill(s) Start Date: 12/17/21 Status: Ordered isosorbide mononitrate 30 mg oral tablet, extended release 30 mg = 1 tab, Oral, every morning, 0 Refill(s) Start Date: 10/22/21 Status: Ordered liothyronine 5 mcg oral tablet 0 Refill(s) Start Date: 12/17/21 Status: Ordered losartan 25 mg oral tablet 0.5 tab, Oral, Daily, # 45 tab, 3 Refill(s), Pharmacy: [id number], 165, cm, 12/17/21 12:57:00 EDT, Height/Length Dosing, 98.88, kg, 12/17/21 12:57:00 EDT, Weight Dosing Start Date: 01/07/22 Status: Ordered Metoprolol Succinate ER 50 mg oral tablet, extended release 1 tab, Oral, Daily, # 90 tab, 3 Refill(s), Pharmacy: [id number], 165, cm, 12/17/21 12:57:00 EDT, Height/Length Dosing, 98.88, kg, 12/17/21 12:57:00 EDT, Weight Dosing Start Date: 01/07/22 Status: Ordered nitroglycerin 0.4 mg sublingual tablet 0 Refill(s) Start Date: 12/17/21 Status: Ordered Ozempic (1 mg dose) 4 mg/3 mL subcutaneous solution 0.25 mg =, Subcutaneous, every week, # 3 mL, 0 Refill(s) Start Date: 10/29/21 Stop Date: 11/26/21 Status: Ordered Repatha Pushtronex 420 mg/3.5 mL subcutaneous solution 0 Refill(s) Start Date: 12/17/21 Status: Ordered Problem List Condition Confirmation Course Effective Dates Status H ealth Status Informant 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 Coronary arteriosclerosis Confirmed 09/27/20 Active Diabetes mellitus Confirmed 02/08/18 Active Finding of esophagus Confirmed Active Hypersomnia Confirmed Active 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 Insomnia Confirmed Active Swelling / lump finding Confirmed Active Nicotine dependence Confirmed Active Obstructive sleep apnea syndrome Confirmed Active pain of left knee Confirmed Active Pain of left shoulder joint Confirmed Active Postoperative pain Confirmed Active Sleep apnea Confirmed Active Vitamin D deficiency Confirmed Active Procedures Procedure Date Related Diagnosis Body Site Status Cardiac catheterization 1 02/06/20 Completed Carpal tunnel release - revision L 12/29/18 Completed Left shoulder arthroplasty 06/04/17 Completed Left elbow tendon release 05/11/14 Completed Repair of rectocele 05/11/14 Compl eted Laparoscopic Cholecystectomy 05/11/11 Completed Total replacement of right knee joint 05/11/09 Completed Hysterectomy 05/11/94 Completed Carpal tunnel surgery Com pleted Mass cyst lipoma excision - left inner arm Completed 1stents to JEANETH to LAD LPA&LPL1 Vital Signs Most recent to oldest [Reference Range]: 1 Temperature Temporal Artery [36-38 Deg C ] 36 Deg C (07/26/22 1:00 PM) Peripheral Pulse Rate [60-100 bpm] 84 bp m (07/26/22 1:00 PM) Respiratory Rate [12-24 br/min] 16 br/mi n (07/26/22 1:00 PM) Blood Pressure [90-140/60-90 mmHg] 142/9 1mmHg *HI* (07/26/22 1:00 PM) Weight Dosing 95.00 kg (07/26/22 1:13 PM) Weight Estimated 95.00 kg (07/26/22 1:00 PM) Height/Length Dosing 165.000 cm (07/26/22 1:13 PM) Height/Length Estimated 165.000 cm (07/26/22 1:00 PM) Social History Social History Type Response Tobacco Current everyday tob acco user Tobacco Use:. 1 PPD per day. 45 year(s). Sex Female Physician Emergency department Note * Sivakumar Armijo MD: PERFORM Event Display: ED Note Physician Authored Date: [id number] JARRETTMANISHA COLUNGA :1960 Age:62 years Sex:Female Visit Date:07/26/2022 Primary Care Physician: Mervin KWAN, Steven Mccarthy MD HPI 62-year-old female presents for evaluation of warmth, redness, and pain at a recent tattoo site, patient is concerned that she has cellulitis as she has experienced post tattoo cellulitis on 2 prior tattoos. No systemic symptoms. Symptoms been present for 1+ days. Tattoo placed 1 week ago. ROS withno recent constitutional symptoms. ?? Exam HR 84, RR 16, BP 142/91, T 36.0?C, SaO2 96% on room air.?? Gen: Pleasant, nontoxic-appearing, resting comfortably. HEENT: NC, AT, PEERL, EOMI. Resp: Unlabored respirations with a normal work of breathing. Card: Extremities warm and well perfused.?? GI: Non-distended. : Deferred MSK: No visible deformities, strength and tone without visually appreciable deficit. Neuro:??alert and oriented?3, no facial asymmetry, vision and hearing WNL. Heme/Lymph: Deferred Skin: Left upper posterior lateral arm with mild warmth and tenderness underlying a recent tattoo, affected area is approximately Mckenna in size. No underlying fluctuance, crepitus, or further abnormalities. Psych: Mood and affect appropriate. ?? MDM Previous chart, nursing note, and vitals reviewed.?? A: 62-year-old obese female with nicotine dependence presents for evaluation of warmth, redness, and tenderness of approximately 24 hours duration at the site of a tattoo placed 1 week ago. ?? DDx & Evaluation: Exam C/W cellulitis, no features suggestive of sepsis, erysipelas, necrotizing fasciitis, or abscess. Patient prescribed cephalexin and doxycycline. First dose is given in the ER. ?? Impression: Cellulitis. Electronically Signed on 07/26/22 01:26 PM Sivakumar Armijo MD Emergency department Discharge instructions * Sivakumar Armijo MD: PERFORM Event Display: ED Discharge Information Authored Date: [id number] MANISHA FARIAS :1960 Age:62 years Sex:Female Visit Date:07/26/2022 Primary Care Physician: Steven Jordan MD Discharge Instructions We would like to thank you for allowing us to assist you with your healthcare needs. The following includes patient education materials and information regarding your injury/illness. ?? You were seen at [facility] for evaluation for evaluation of??[redness, warmth, and tenderness on your left arm at the site of a recently placed tattoo. ??The time of your evaluation you are believed to have a cellulitis and you have been prescribed cephalexin and doxycycline].??Please r ead and follow all of the instructions below. ?? Please follow up with your primary care physician??[in 2-3 days for repeat evaluation of your cellulitis as well as your asymptomatic hypertension]. When calling for follow-up care, please make the office aware that this follow-up is from your recent emergency room visit.? Your care today was limited to identifying and treating emergent medical problems only. Many peoplehave subtle differences in their test results that require follow up with their outpatient physician(s) to correctly determine if this represents a normal variation or concerning abnormality with respect to your specific health.??The care given to you today was limited to identifying and treating emergent medical problems - you need to request a copy of all of your medical records from today's visit and follow up with your outpatient physician(s) to review both today's visit and your overall health. If you have any new symptoms or if you are at all concerned about your health please return immediately to the emergency department. ?? Prescriptions: If you are uninsured or have financial difficulties with filling your prescription(s), you may consider using a free pharmacy discount service such as [employer] ([employer]) or [employer] ([employer]). These services allow you to search for a medication on your phone (or computer) and obtain a coupon that usually has a significant discount from the list guerrero at a pharmacy. Your physician does not have a financial relationship with either of these services. You may also wish to speak with your physician to determine if lower cost prescriptions are possible. ?? High Blood Pressure (Hypertension) When you were in the emergency department you had an abnormally high blood pressure. High blood pressure can be without symptoms. However high blood pressure can lead to many medical problems including kidney disease, strokes, and heart attacks. Your blood pressure may have been elevated due to pain or the stress of being in the emergency department, however half of people with an elevated blood pressure in the emergency department have prison problems with high blood pressure.? Please see your primary care physician in 2-3 days for a repeat check of your blood pressure. This may help prevent many health serious problems in the future. ? Please return to the emergency department if you develop any of the following: chest pain, shortness of breath, new or severe headache, changes in vision or hearing, weakness, or if you are otherwiseconcerned about your health. ?? You were diagnosed with cellulitis. This is a bacterial infection of the skin. Symptoms are usually redness, swelling, and warmth in the affected area. Some people get a fever (temperature higher than 100.4??F / 38??C) with this infection. ?Cellulitis is treated with antibiotics and pain control.?Redness, swelling, warmth, and fever should start to get better after 1-2 days of treatment. Ifyou are not improving please see your primary care physician or return to this or the nearest emergency department. If you were directed during your exam or if you have any concerns about your infection please follow up promptly with your primary care physician or in an emergency department. ?If possible, outline the infection once every 24 hours and take a picture to show to your physician in case you need further treatment. ?? YOU SHOULD SEEK MEDICAL ATTENTION IMMEDIATELY, EITHER HERE OR AT THE NEAREST EMERGENCY DEPARTMENT, IF ANY OF THE FOLLOWING OCCURS: ?Redness spreads even with treatment. You can michelle the infection area with a pen. This will helpwatch for improvement or spreading. ?Fever (temperature higher than 100.4??F / 38??C) does not go away or gets worse after 2-3 days of antibiotics. ?Unusual or increasing pain in the infected area. ?Lightheadedness. ?Feeling sicker at any time or not getting better as expected. ?? Cephalexin (Brand Name: Keflex) ?Take as directed on the prescription. ?Take the full prescribed course of medications. ?? SIDE EFFECTS: Diarrhea, dizziness, headache, or stomach upset may occur. If any of these effects persist or worsen, tell your doctor or pharmacist promptly. Tell your doctor immediately if any of these rare but very serious side effects occur: severe stomach/abdominal pain, persistent nausea/vomiting, yellowing eyes/skin, dark urine, change in the amount of urine, new signs of infection (e.g., fever, persistent sore throat), easy bruising/bleeding, mental/mood changes (e.g., agitation, confusion). This medication may rarely cause a severe intestinal condition (Clostridium difficile-associateddiarrhea) due to a resistant bacteria. This condition may occur during treatment or weeks to months after treatment has stopped. Tell your doctor immediately if you develop persistent diarrhea, abdominal or stomach pain/cramping, blood/mucus in your stool. Do not use anti-diarrhea products or narcotic pain medications if you have any of these symptoms because these products may make them worse. Use of this medication for prolonged or repeated periods may result in oral thrush or a new vaginal yeast infection. Contact your doctor if you notice white patches in your mouth, a change in vaginal discharge, or other new symptoms. A very serious allergic reaction to this drug is rare. However, seek immediate medical attention if you notice any symptoms of a serious allergic reaction, including: rash, itching/swelling (especially of the face/tongue/throat), severe dizziness, trouble breathing. This is not a complete list of possible side effects. If you notice other effects not listed above, contact your doctor or pharmacist. ?? PRECAUTIONS: Before taking cephalexin, tell your doctor or pharmacist if you are allergic to it; orto penicillins or other cephalosporins (e.g., cefpodoxime); or if you have any other allergies. This product may contain inactive ingredients, which can cause allergic reactions or other problems. Talk to your pharmacist for more details. Before using this medication, tell your doctor or pharmacist your medical history, especially of: kidney disease, stomach/intestinal disease (e.g., colitis). This drug may make you dizzy. Do not drive, use machinery, or do any activity that requires alertness until you are sure you can perform such activities safely. Limit alcoholic beverages. The liquid form of this product may contain sugar. Caution is advised if you have diabetes. Ask your doctor or pharmacist about using this product safely. Kidney function declines as you grow older. This medicationis removed by the kidneys. Therefore, older adults may be at greater risk for side effects while using this drug. During , this medication should be used only when clearly needed. Discuss the risks and benefits with your doctor. This medication passes into breast milk. Consult your doctor before breast-feeding.? DRUG INTERACTIONS: Your doctor or pharmacist may already be aware of any possible drug interactionsand may be monitoring you for them. Do not start, stop, or change the dosage of any medicine beforechecking with them first. Before using this medication, tell your doctor or pharmacist of all prescription and nonprescription/herbal products you may use, especially of: vaccines that contain live bacteria (e.g., typhoid, BCG), metformin, probenecid. This medication may decrease the effectiveness of combination-type control pills. This can result in . You may need to use an additional form of reliable control while using this medication. Consult your doctor or pharmacist for details. This medication may interfere with certain laboratory tests (including Melissa' test, certain urine glucose tests), possibly causing false test results. Make sure laboratory personnel and all your doctors know you use this drug. This document does not contain all possible interactions. The refore, before using this product, tell your doctor or pharmacist of all the products you use. Keepa list of all your medications with you, and share the list with your doctor and pharmacist.? Doxycycline (Brand Name: Vibramycin) ?Please take this medication as prescribed. ?Please take the medication for the full duration of the precription. ?If you feel you are experiencing a side effect, please call your physician or the emergency department. ?This medication may rarely cause mild to severe rashes that hurt with exposure to sunlight. Please stop this medication and contact your doctor if you have a rash.? WARNING/CAUTION: Even though it may be rare, some people may have very bad and sometimes deadly side effects when taking a drug. Tell your doctor or get medical help right away if you have any of thefollowing signs or symptoms that may be related to a very bad side effect: ?Signs of an allergic reaction, like rash; hives; itching; red, swollen, blistered, or peeling skin with or without fever; wheezing; tightness in the chest or throat; trouble breathing or talking;unusual hoarseness; or swelling of the mouth, face, lips, tongue, or throat. ?Signs of liver problems like dark urine, feeling tired, not hungry, upset stomach or stomach pain, light-colored stools, throwing up, or yellow skin or eyes. ?Chest pain. ?Not able to pass urine or change in how much urine is passed. ?Fever or chills. ?Sore throat. ?Throat irritation. ?Trouble swallowing. ?Any bruising or bleeding that is not normal. ?Joint pain. ?Feeling very tired or weak. ?Vaginal itching or discharge. ?It is common to have diarrhea when taking this drug. Rarely, a very bad form of diarrhea calledClostridium difficile (C diff)-associated diarrhea (CDAD) may occur. Sometimes, this has led to a deadly bowel problem (colitis). CDAD may happen while you are taking this drug or within a few monthsafter you stop taking it. Call your doctor right away if you have stomach pain or cramps, very loose or watery stools, or bloody stools. Do not try to treat loose stools without first checking with your doctor. ?Raised pressure in the brain has happened with this drug. Most of the time, this will go back to normal after this drug is stopped. Sometimes, loss of eyesight may happen and may not go away evenafter this drug is stopped. Call your doctor right away if you have a headache or eyesight problemslike blurred eyesight, seeing double, or loss of eyesight. ?A very bad skin reaction (Tom-Reggie syndrome/toxic epidermal necrolysis) may happen. It can cause very bad health problems that may not go away, and sometimes . Get medical help right away if you have signs like red, swollen, blistered, or peeling skin (with or without fever); red or irritated eyes; or sores in your mouth, throat, nose, or eyes. ?? What are some other side effects of this drug?All drugs may cause side effects. However, many people have no side effects or only have minor side effects. Call your doctor or get medical help if any of these side effects or any other side effects bother you or do not go away: ?Not hungry. ?Upset stomach or throwing up. ?Loose stools (diarrhea). ?These are not all of the side effects that may occur. If you have questions about side effects,call your doctor. Call your doctor for medical advice about side effects. ?? What do I need to tell my doctor BEFORE I take this drug?If you have an allergy to doxycycline or any other part of this drug. ?If you are allergic to any drugs like this one, any other drugs, foods, or other substances. Tell your doctor about the allergy and what signs you had, like rash; hives; itching; shortness of breath; wheezing; cough; swelling of face, lips, tongue, or throat; or any other signs. ?If you are taking any of these drugs: Acitretin, isotretinoin, or a penicillin. ?This is not a list of all drugs or health problems that interact with this drug. ?Tell your doctor and pharmacist about all of your drugs (prescription or OTC, natural products,vitamins) and health problems. You must check to make sure that it is safe for you to take this drug with all of your drugs and health problems. Do not start, stop, or change the dose of any drug without checking with your doctor. ?? What are some things I need to know or do while I take this drug?You may get sunburned more easily. Avoid sun, sunlamps, and tanning beds. Use sunscreen and wear clothing and eyewear that protects you from the sun. ? control pills and other hormone-based control may not work as well to prevent . Use some other kind of control also like a condom when taking this drug. ?This drug may cause a change in tooth color to [id number] in children younger than 8 years old. If this change of tooth color happens, it will not go away. Talk with the doctor. ?Do not give to a child younger than 8 years old unless other drugs cannot be used or have not worked. Talk with the doctor. ?This drug may cause harm to the unborn baby if you take it while you are . ?Tell your doctor if you are or plan on getting . You will need to talk about the benefits and risks of using this drug while you are . Tell your doctor if you are breast-feeding. You will need to talk about any risks to your baby. ?? Discharge Vitals Temperature??(Temporal Artery) 96.8 ??F (36 ??C) Heart Rate??(Peripheral) 84 Respiratory Rate?? 16 Blood Pressure?? 142/91?? Height?? 64.96 in (165.000 cm) Weight??(Estimated) 209.48 lb (95.00 kg) Allergies ADHESIVE TAPE DULoxetine acetaminophen-hydrocodone??(Itching) acetaminophen-oxycodone??(Itching) atorvastatin buPROPion citalopram codeine??(Itching) escitalopram exenatide??(Nausea) ezetimibe-simvastatin indomethacin liraglutide metFORMIN??(Itching) rosuvastatin sertraline??(Chest pain) You were treated today on an emergency basis; it may be coyne to contact your primary care provider to notify them of your visit today. You may have been referred to your regular doctor or a specialist, please follow up as instructed. If your condition worsens or you can't get in to see the doctor, contact the Emergency Department. Medications What How Much When Why Instructions Next Dose New cephalexin (!-Keflex 500 mg oral capsule) 1 Capsules Oral (given by mouth) 4 times a day Duration: 10 Days Pickup at [facility] New doxycycline (doxycycline monohydrate 100 mg oral tablet) 1 tab Oral (given by mouth) 2 times a day Duration: 10 Days Pickup at [id number] Unchanged aspirin (Aspi-Cor 81 mg oral delayed release tablet) Unchanged clonazePAM (clonazePAM 1 mg oral tablet) Unchanged clopidogrel (clopidogrel 75 mg oral tablet) 1 tab Oral (given by mouth) Every day Unchanged cyclobenzaprine (cyclobenzaprine 10 mg oral tablet) 1 tab Oral (given by mouth) 3 times a day as needed for as needed for muscle spasm Lumbar disc herniation Unchanged dexlansoprazole (Dexilant 30 mg oral delayed release capsule) Unchanged estradiol topical (estradiol 0.1 mg/ g vaginal cream) Unchanged evolocumab (Repatha Pushtronex 420 mg/ 3.5 mL subcutaneous solution) Unchanged isosorbide mononitrate (isosorbide mononitrate 30 mg oral tablet, extended release) 1 tab Oral (given by mouth) Every morning Unchanged liothyronine (liothyronine 5 mcg oral tablet) Unchanged losartan (losartan 25 mg oral tablet) 0.5 tab Oral (given by mouth) Every day Unchanged metoprolol (Metoprolol Succinate ER 50 mg oral tablet, extended release) 1 tab Oral (given by mouth) Every day Unchanged nitroglycerin (nitroglycerin 0.4 mg sublingual tablet) Unchanged semaglutide (Ozempic (1 mg dose) 4 mg/ 3 mL subcutaneous solution) 0.25 Milligrams Subcutaneous (under the skin) Every week Duration: 4 weeks Pharmacy Information [facility]: [address] [place] [address] [phone] Patient/Care Navigator Signature Patient Name:MANISHA FARIAS I have received this information and my questions have been answered. Patient/Care Navigator Name: Patient/Care Navigator Signature: Relationship to Patient: Witness Name/Signature: Date: Electronically Signed on: 07/26/2022 13:26 EDTSigned by:RDJ Discharge summary * Alicia Arnett: PERFORM Event Display: Discharge Note Authored Date: [id number] * Alicia Arnett: PERFORM Event Display: Discharge Note Authored Date: [id number] Diagnosis: Cellulitis Comment: Electronically Signed on 07/26/22 01:30 PM Alicia Arnett Patient Care team information Care Team Personnel Name: Steven Jordan MD Position: No Access Member Role: Primary Care Physician Address: Address: [address] Name: Sivakumar Armijo MD Position: Physician Member Role: ED Physician Care Team Related Persons Name: ROGELIO FARIAS Address: Home
--- OUTSIDE RECORDS SUMMARY | 2023-11-25 15:29 | XMS_ITS | Continuity of Care Document ---
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 Name Role Phone [place] [facility] Primary Care Physician Encounter [facility] Date(s): 11/14/22 - 11/14/[address] [id number] Encounter Diagnosis Back pain(Discharge Diagnosis) - 11/14/22 Discharge Disposition: Home or Self Care Attending Physician: Rochelle Robbins MD Admitting Physician: Rochelle Robbins MD Allergies, Adverse Reactions, Alerts Substance Reaction [...] Unknown Active liraglutide Unknown Active 1skin chambers [id number] 3Headache 4Constipation 5GI upset 6GI upset 7Constipation 8Constipation 9Increased depression 10Increases blood sugar Assessment and Plan Extracted from: Title:Clinical Document Author:Alicia Arnett te:11/14/22 Diagnosis: 1. Back pain Comment: Diagnosis: Back pain Comment: Functional Status 11/14/22 Family Member Travel History No recent t ravel Recent Travel History No recent travel Other exposure to Infectious Disease Non e Medications Aspi-Cor 81 mg oral delayed release tablet 0 Refill(s) Start Date: 10/29/21 Status: Ordered clonazePAM 1 mg oral tablet 0 Refill(s) Start Date: 12/17/21 Status: Ordered cyclobenzaprine 10 mg oral tablet 10 mg = 1 tab, Oral, TID, PRN as needed for muscle spasm, # 30 tab, 0 Refill(s), Pharmacy: [id number], 165, cm, 12/17/21 12:57:00 EDT, Height/Length Dosing, 98.88, kg, 12/17/21 12:57:00 EDT, Weight Dosing Start Date: 12/17/21 Status: Ordered cyclobenzaprine 5 mg oral tablet 5 mg = 1 tab, Oral, Daily, PRN as needed for muscle spasm, X 5 days, # 12 tab, 0 Refill(s), 11/15/22 13:40:00 EDT, Pharmacy: [id number], 165.1, cm, 11/10/22 12:55:00 EDT, Height/Length Dosing, 99.79, kg, 11/10/22 12:55:00 EDT, Weight Dosing Start Date: 11/10/22 Stop Date: 11/15/22 Status: Ordered Dexilant 30 mg oral delayed release capsule 0 Refill(s) Start Date: 12/17/21 Status: Ordered estradiol 0.1 mg/g vaginal cream [...] Daily, # 45 tab, 3 Refill(s), Pharmacy: [id number], 165, cm, 12/17/21 12:57:00 EDT, Height/Length Dosing, 98.88, kg, 12/17/21 12:57:00 EDT, Weight Dosing Start Date: 01/07/22 Status: Ordered Metoprolol Succinate ER 50 mg oral tablet, extended release 1 tab, Oral, Daily, # 90 tab, 3 Refill(s), Pharmacy: [id number], 165, cm, 12/17/21 12:57:00 EDT, [...] Temperature Temporal Artery [36-38 Deg C ] 36.0 Deg C (11/14/22 1:36 PM) Peripheral Pulse Rate [60-100 bpm] 90 bp m (11/14/22 1:36 PM) Respiratory Rate [12-24 br/min] 18 br/mi n (11/14/22 1:36 PM) Blood Pressure [90-140/60-90 mmHg] 119/9 0mmHg (11/14/22 1:36 PM) Weight Dosing 99.79 kg (11/14/22 1:45 PM) Weight Estimated 99.79 kg (11/14/22 1:36 PM) Height/Length Dosing 165.000 cm (11/14/22 1:45 PM) Height/Length Estimated 165.000 cm (11/14/22 1:36 PM) Social History Social History Type Response Tobacco Current everyday tob acco user Tobacco Use:. Sex Female Hospital Discharge Instructions Patient Education 11/14/2022 13:21:30 Sacroiliac Joint Dysfunction Sacroiliac Joint Dysfunction Sacroiliac joint dysfunction is a condition that causes inflammation on one or both sides of the sacroiliac (SI) joint. The SI joint is the joint between two bones of the pelvis called the sacrum andthe ilium. The sacrum is the bone at the base of the spine. The ilium is the large bone that forms the hip. This condition causes deep aching or burning pain in the low back. In some cases, the pain may also spread into one or both buttocks, hips, or thighs. What are the causes? This condition may be caused by: ??? . During , extra stress is put on the SI joints because the pelvis widens. ??? Injury, such as: ??? Injuries from car crashes. ??? Sports-related injuries. ??? Work-related injuries. ??? Having one leg that is shorter than the other. ??? Conditions that affect the joints, such as: ??? Rheumatoid arthritis. ??? Gout. ??? Psoriatic arthritis. ??? Joint infection (septic arthritis). Sometimes, the cause of SI joint dysfunction is not known. What are the signs or symptoms? Symptoms of this condition include: ??? Aching or burning pain in the lower back. The pain may also spread to other areas, such as: ??? Buttocks. ??? Groin. ??? Thighs. ??? Muscle spasms in or around the painful areas. ??? Increased pain when standing, walking, running, stair climbing, bending, or lifting. How is this diagnosed? This condition is diagnosed with a physical exam and your medical history. During the exam, the health care provider may move one or both of your legs to different positions to check for pain. Various tests may be done to confirm the diagnosis, including: ??? Imaging tests to look for other causes of pain. These may include: ??? MRI. ??? CT scan. ??? Bone scan. ??? Diagnostic injection. A numbing medicine is injected into the SI joint using a needle. If your pain is temporarily improved or stopped after the injection, this can indicate that SI joint dysfunction is the problem. How is this treated? Treatment depends on the cause and severity of your condition. Treatment options can be noninvasiveand may include: ??? Ice or heat applied to the lower back area after an injury. This may help reduce pain and muscle spasms. ??? Medicines to relieve pain or inflammation or to relax the muscles. ??? Wearing a back brace (sacroiliac brace) to help support the joint while your back is healing. ??? Physical therapy to increase muscle strength around the joint and flexibility at the joint. This may also involve learning proper body positions and ways of moving to relieve stress on the joint. ??? Direct manipulation of the SI joint. ??? Use of a device that provides electrical stimulation to help reduce pain at the joint. Other treatments may include: ??? Injections of steroid medicine into the joint to reduce pain and swelling. ??? Radiofrequency ablation. This treatment uses heat to burn away nerves that are carrying pain messages from the joint. ??? Surgery to put in screws and plates that limit or prevent joint motion. This is rare. Follow these instructions at home: Medicines ??? Take bqhx-cwn-jcepatp and prescription medicines only as told by your health care provider. ??? Ask your health care provider if the medicine prescribed to you: ??? Requires you to avoid driving or using machinery. ??? Can cause constipation. You may need to take these actions to prevent or treat constipation: ??? Drink enough fluid to keep your urine pale yellow. ??? Take rhpt-drx-edwyptg or prescription medicines. ??? Eat foods that are high in fiber, such as beans, whole grains, and fresh fruits and vegetables. ??? Limit foods that are high in fat and processed sugars, such as fried or sweet foods. If you have a brace: ??? Wear the brace as told by your health care provider. Remove it only as told by your health careprovider. ??? Keep the brace clean. ??? If the brace is not waterproof: ??? Do not let it get wet. ??? Cover it with a watertight covering when you take a bath or a shower. Managing pain, stiffness, and swelling ??? Icing can help with pain and swelling. Heat may help with muscle tension or spasms. Ask your health care provider if you should use ice or heat. ??? If directed, put ice on the affected area: ??? If you have a removable brace, remove it as told by your health care provider. ??? Put ice in a plastic bag. ??? Place a towel between your skin and the bag. ??? Leave the ice on for 20 minutes, 2???3 times a day. ??? Remove the ice if your skin turns bright red. This is very important. If you cannot feel pain, heat, or cold, you have a greater risk of damage to the area. ??? If directed, apply heat to the affected area as often as told by your health care provider. Usethe heat source that your health care provider recommends, such as a moist heat pack or a heating pad. ??? Place a towel between your skin and the heat source. ??? Leave the heat on for 20???30 minutes. ??? Remove the heat if your skin turns bright red. This is especially important if you are unable to feel pain, heat, or cold. You may have a greater risk of getting burned. General instructions ??? Rest as needed. Return to your normal activities as told by your health care provider. Ask yourhealth care provider what activities are safe for you. ??? Do exercises as told by your health care provider or physical therapist. ??? Keep all follow-up visits. This is important. Contact a health care provider if: ??? Your pain is not controlled with medicine. ??? You have a fever. ??? Your pain is getting worse. Get help right away if: ??? You have weakness, numbness, or tingling in your legs or feet. ??? You lose control of your bladder or bowels. Summary ??? Sacroiliac (SI) joint dysfunction is a condition that causes inflammation on one or both sides of the SI joint. ??? This condition causes deep aching or burning pain in the low back. In some cases, the pain may also spread into one or both buttocks, hips, or thighs. ??? Treatment depends on the cause and severity of your condition. It may include medicines to reduce pain and swelling or to relax muscles. This information is not intended to replace advice given to you by your health care provider. Make sure you discuss any questions you have with your health care provider. Document Revised: 09/07/2020 Document Reviewed: 09/07/2020 [employer] Patient Education ?? 2022 [employer]. 11/14/2022 13:21:22 Acute Back Pain, Adult Acute Back Pain, Adult Acute back pain is sudden and usually short-lived. It is often caused by an injury to the muscles and tissues in the back. The injury may result from: ??? A muscle, tendon, or ligament getting overstretched or torn. Ligaments are tissues that connectbones to each other. Lifting something improperly can cause a back strain. ??? Wear and tear (degeneration) of the spinal disks. Spinal disks are circular tissue that providecushioning between the bones of the spine (vertebrae). ??? Twisting motions, such as while playing sports or doing yard work. ??? A hit to the back. ??? Arthritis. You may have a physical exam, lab tests, and imaging tests to find the cause of your pain. Acute back pain usually goes away with rest and home care. Follow these instructions at home: Managing pain, stiffness, and swelling ??? Take zpmd-vwk-elrenrv and prescription medicines only as told by your health care provider. Treatment may include medicines for pain and inflammation that are taken by mouth or applied to the skin, or muscle relaxants. ??? Your health care provider may recommend applying ice during the first 24???48 hours after your pain starts. To do this: ??? Put ice in a plastic bag. ??? Place a towel between your skin and the bag. ??? Leave the ice on for 20 minutes, 2???3 times a day. ??? Remove the ice if your skin turns bright red. This is very important. If you cannot feel pain, heat, or cold, you have a greater risk of damage to the area. ??? If directed, apply heat to the affected area as often as told by your health care provider. Usethe heat source that your health care provider recommends, such as a moist heat pack or a heating pad. ??? Place a towel between your skin and the heat source. ??? Leave the heat on for 20???30 minutes. ??? Remove the heat if your skin turns bright red. This is especially important if you are unable to feel pain, heat, or cold. You have a greater risk of getting burned. Activity ??? Do not stay in bed. Staying in bed for more than 1???2 days can delay your recovery. ??? Sit up and stand up straight. Avoid leaning forward when you sit or hunching over when you stand. ??? If you work at a desk, sit close to it so you do not need to lean over. Keep your chin tucked in. Keep your neck drawn back, and keep your elbows bent at a 90-degree angle (right angle). ??? Sit high and close to the steering wheel when you drive. Add lower back (lumbar) support to your car seat, if needed. ??? Take short walks on even surfaces as soon as you are able. Try to increase the length of time you walk each day. ??? Do not sit, drive, or computer support specialist instructor one place for more than 30 minutes at a time. Sitting or standing for long periods of time can put stress on your back. ??? Do not drive or use heavy machinery while taking prescription pain medicine. ??? Use proper lifting techniques. When you bend and lift, use positions that put less stress on your back: ??? Bend your knees. ??? Keep the load close to your body. ??? Avoid twisting. ??? Exercise regularly as told by your health care provider. Exercising helps your back heal fasterand helps prevent back injuries by keeping muscles strong and flexible. ??? Work with a physical therapist to make a safe exercise program, as recommended by your health care provider. Do any exercises as told by your physical therapist. Lifestyle ??? Maintain a healthy weight. Extra weight puts stress on your back and makes it difficult to havegood posture. ??? Avoid activities or situations that make you feel anxious or stressed. Stress and anxiety increase muscle tension and can make back pain worse. Learn ways to manage anxiety and stress, such as through exercise. General instructions ??? Sleep on a firm mattress in a comfortable position. Try lying on your side with your knees slightly bent. If you lie on your back, put a pillow under your knees. ??? Keep your head and neck in a straight line with your spine (neutral position) when using electronic equipment like smartphones or pads. To do this: ??? Raise your smartphone or pad to look at it instead of bending your head or neck to look down. ??? Put the smartphone or pad at the level of your face while looking at the screen. ??? Follow your treatment plan as told by your health care provider. This may include: ??? Cognitive or behavioral therapy. ??? Acupuncture or massage therapy. ??? Meditation or yoga. Contact a health care provider if: ??? You have pain that is not relieved with rest or medicine. ??? You have increasing pain going down into your legs or buttocks. ??? Your pain does not improve after 2 weeks. ??? You have pain at night. ??? You lose weight without trying. ??? You have a fever or chills. ??? You develop nausea or vomiting. ??? You develop abdominal pain. Get help right away if: ??? You develop new bowel or bladder control problems. ??? You have unusual weakness or numbness in your arms or legs. ??? You feel faint. These symptoms may represent a serious problem that is an emergency. Do not wait to see if the symptoms will go away. Get medical help right away. Call your local emergency services (911 in the [place] Do not drive yourself to the hospital. Summary ??? Acute back pain is sudden and usually short-lived. ??? Use proper lifting techniques. When you bend and lift, use positions that put less stress on your back. ??? Take mxhs-ffk-indfkmc and prescription medicines only as told by your health care provider, andapply heat or ice as told. This information is not intended to replace advice given to you by your health care provider. Make sure you discuss any questions you have with your health care provider. Document Revised: 07/20/2021 Document Reviewed: 07/20/2021 [employer] Patient Education ?? 2022 [employer]. Follow Up Care 11/14/2022 13:36:51 With:Follow up with primary care provider Address: When:1 to 2 weeks Physician Emergency department Note * Rochelle Robbins MD: PERFORM Event Display: ED Note Physician Authored Date: [id number] MANISHA FARIAS :1960 Age:62 years Sex:Female Visit Date:11/14/2022 Primary Care Physician: Mervin [facility], Steven Mccarthy MD Basic Information Time Seen: Rochelle Robbins MD / 11/14/2022 13:51 Chief Complaint I was seen on the I injured my back. I can't see my PCP until tomorrow and it's not any better. The toradol shot was great last time. I need more of that. 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 Patient reports when she was last in the emergency department??she received a shot of Toradol and a prescription for Flexeril??she also states she??received Flexeril??the medication received here in the em ergency department??worked while being around white ones that she received from [employer] did not seem to work.?? Patient reports that she is getting some tingling in her cast and the pain goes down her legs??she states that the spine??doctor she saw at [facility] did not want to do any injections??until she had pain down her legs she is hoping to make an appointment with them as soon as she leaves here.?? Patient has an appointment with Dr. Jeffries tomorrow.?? Patient is hoping for??Toradol injection. Review of Systems: see hpi for ros Physical Exam Vitals & Measurements T:??36.0?C ??(Temporal Artery)?? HR:??90??(Peripheral)?? RR:??18?? BP:??119/90?? SpO2:??94%?? HT:??165.000??cm?? WT:??99.79??kg??(Estimated)?? Pain Score:??8?? O2 Therapy:??Room air?? General: Alert and oriented, well nourished,?No??acute distress Eye: PER,?Normal??conjunctiva, No scleral icterus HENT: Normocephalic?Normal?? hearing?? Respiratory:??Respiration??no distress??no increased work of breathing Chest: wall excursion wnl no abnormal movements no obvious deformities Musculoskeletal:?Normal?? range of motion and strength,?No??tenderness??except for??positive seated straight leg raise left??negative on the right,?No??swelling??no vertebral tenderness to pa lpation except for bilateral SI joints??no muscle spasm bilaterally??appreciated??deep tendon reflexes are symmetric??patella and Achilles Skin: Skin is warm, dry and pink,?No??rashes,?No??lesions Neurologic: Awake, alert and oriented X4 Psychiatric: Cooperative, appropriate mood and affect Medical Decision Making: For MDM please see under assessment and plan Procedure No Qualifying Data Assessment/Plan 1.??Back pain??M54.9 I think this is a combination of back pain??sacroiliac dysfunction??patient will try to make an appointment with her spine??doctor??down at [facility] and she will keep an appointment with her primarycare provider tomorrow.?? Patient was given a Toradol 30 mg IM shot here??in the emergency department and will continue with??Flexeril as needed at home as well as heat and ice and other modalities that are helpful for her. Orders: Toradol, 30 mg = 1 mL, IM, Soln, Once, First Dose: 11/14/22 14:11:00 EDT, Stop Date: 11/14/22 14:11:00 EDT, Physician Stop, STAT Discharge Patient, 11/14/22 14:21:00 EDT, Home Independently, Constant Indicator Patient Education Sacroiliac Joint Dysfunction Acute Back Pain, Adult Follow Up With When Contact Information Follow up with primary care provider Within 1 to 2 weeks Additional Instructions: Medication Reconciliation Unchanged aspirin (Aspi-Cor 81 mg oral delayed release tablet) ?? clonazePAM (clonazePAM 1 mg oral tablet) ?? cyclobenzaprine (cyclobenzaprine 10 mg oral tablet)1 tab Oral (given by mouth) 3 times a day as needed as needed for muscle spasm. Refills: 0. ?? cyclobenzaprine (cyclobenzaprine 5 mg oral tablet)1 tab Oral (given by mouth) every day as needed as needed for muscle spasm for 5 Days. Refills: 0. ?? dexlansoprazole (Dexilant 30 mg oral delayed release capsule) ?? estradiol topical (estradiol 0.1 mg/g vaginal cream) ?? evolocumab (Repatha Pushtronex 420 mg/3.5 mL subcutaneous solution) ?? isosorbide mononitrate (isosorbide mononitrate 30 mg oral tablet, extended release)1 tab Oral (given by mouth) every morning. ?? liothyronine (liothyronine 5 mcg oral tablet) ?? losartan (losartan 25 mg oral tablet)0.5 tab Oral (given by mouth) every day. Refills: 3. ?? metoprolol (Metoprolol Succinate ER 50 mg oral tablet, extended release)1 tab Oral (given by mouth)every day. Refills: 3. ?? nitroglycerin (nitroglycerin 0.4 mg sublingual tablet) ?? semaglutide (Ozempic (1 mg dose) 4 mg/3 mL subcutaneous solution)0.25 Milligrams Subcutaneous (under the skin) every week for 4 weeks. Problem List/Past Medical History Ongoing Johnson's esophagus Coronary arteriosclerosis Diabetes mellitus Finding of esophagus Hypersomnia Idiopathic sleep related non-obstructive alveolar hypoventilation Insomnia Nicotine dependence Obstructive sleep apnea syndrome pain of left knee Pain of left shoulder joint Postoperative pain Sleep apnea Swelling / lump finding Vitamin D deficiency Historical No qualifying data Procedure/Surgical History ???Cardiac catheterization (02/07/2020)???Carpal tunnel release - revision L (12/30/2018)???Left shoulder arthroplasty (06/05/2017)???Left elbow tendon release (05/12/2014)???Repair of rectocele (05/12/2014)???Laparoscopic Cholecystectomy (05/12/2011)???Total replacement of right knee joint ( 010)???Hysterectomy (05/12/1994)???Carpal tunnel surgery???Mass cyst lipoma excision - left inner arm Allergies ADHESIVE TAPE DULoxetine acetaminophen-hydrocodone??(Itching) acetaminophen-oxycodone??(Itching) atorvastatin buPROPion citalopram codeine??(Itching) escitalopram exenatide??(Nausea) ezetimibe-simvastatin indomethacin liraglutide metFORMIN??(Itching) rosuvastatin sertraline??(Chest pain) Social History 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 Family History Diabetes mellitus: Sister and Brother. Myocardial infarction: Sister and Brother. Electronically Signed on 11/14/22 02:25 PM Rochelle Robbins MD Emergency department Discharge instructions * Rochelle Robbins MD: PERFORM Event Display: ED Discharge Information Authored Date: [id number] MANISHA FARIAS :1960 Age:62 years Sex:Female Visit Date:11/14/2022 Primary Care Physician: Steven Jordan MD Discharge Instructions We would like to thank you for allowing us to assist you with your healthcare needs. The following includes patient education materials and information regarding your injury/illness. Diagnosis from Today's Visit Back pain Discharge Vitals Temperature??(Temporal Artery) 96.8 ??F (36.0 ??C) Heart Rate??(Peripheral) 90 Respiratory Rate?? 18 Blood Pressure?? 119/90?? Height?? 64.96 in (165.000 cm) Weight??(Estimated) 220.04 lb (99.79 kg) Allergies ADHESIVE TAPE DULoxetine acetaminophen-hydrocodone??(Itching) acetaminophen-oxycodone??(Itching) atorvastatin buPROPion citalopram codeine??(Itching) escitalopram exenatide??(Nausea) ezetimibe-simvastatin indomethacin liraglutide metFORMIN??(Itching) rosuvastatin sertraline??(Chest pain) What to Do Next Instructions from Your Care Team Take your Flexeril 10 mg 3 times a day as needed try heat or ice to the area.?? Keep your appointment with your primary care provider tomorrow.?? If you worsen return to the emergency department. You Need to Schedule the Following Appointments Follow Up with??Follow up with primary care provider When:??Within 1 to 2 weeks You were treated today on an emergency [...] How Much When Why Instructions Next Dose Unchanged aspirin (Aspi-Cor 81 mg oral delayed release tablet) Unchanged clonazePAM (clonazePAM 1 mg oral tablet) Unchanged cyclobenzaprine (cyclobenzaprine 10 mg oral tablet) 1 tab Oral (given by mouth) 3 times a day as needed for as needed for muscle spasm Lumbar disc herniation Unchanged cyclobenzaprine (cyclobenzaprine 5 mg oral tablet) 1 tab Oral (given by mouth) Every day as needed for as needed for muscle spasm Back pain Duration: 5 Days Unchanged dexlansoprazole (Dexilant 30 mg oral delayed [...] the skin) Every week Duration: 4 weeks Education Materials Sacroiliac Joint Dysfunction Sacroiliac joint dysfunction is a condition that causes inflammation on one or both sides of the sacroiliac (SI) joint. The SI joint is the joint between two bones of the pelvis called the sacrum andthe ilium. The sacrum is the bone at the base of the spine. The ilium is the large bone that forms the hip. This condition causes deep aching or burning pain in the low back. In some cases, the pain may also spread into one or both buttocks, hips, or thighs. What are the causes? This condition may be caused by: ? . During , extra stress is put on the SI joints because the pelvis widens. ? Injury, such as: ? Injuries from car crashes. ? Sports-related injuries. ? Work-related injuries. ? Having one leg that is shorter than the other. ? Conditions that affect the joints, such as: ? Rheumatoid arthritis. ? Gout. ? Psoriatic arthritis. ? Joint infection (septic arthritis). Sometimes, the cause of SI joint dysfunction is not known. What are the signs or symptoms? Symptoms of this condition include: ? Aching or burning pain in the lower back. The pain may also spread to other areas, such as: ? Buttocks. ? Groin. ? Thighs. ? Muscle spasms in or around the painful areas. ? Increased pain when standing, walking, running, stair climbing, bending, or lifting. How is this diagnosed? This condition is diagnosed with a physical exam and your medical history. During the exam, the health care provider may move one or both of your legs to different positions to check for pain. Various tests may be done to confirm the diagnosis, including: ? Imaging tests to look for other causes of pain. These may include: ? MRI. ? CT scan. ? Bone scan. ? Diagnostic injection. A numbing medicine is injected into the SI joint using a needle. If your painis temporarily improved or stopped after the injection, this can indicate that SI joint dysfunctionis the problem. How is this treated? Treatment depends on the cause and severity of your condition. Treatment options can be noninvasiveand may include: ? Ice or heat applied to the lower back area after an injury. This may help reduce pain and muscle spasms. ? Medicines to relieve pain or inflammation or to relax the muscles. ? Wearing a back brace (sacroiliac brace) to help support the joint while your back is healing. ? Physical therapy to increase muscle strength around the joint and flexibility at the joint. This may also involve learning proper body positions and ways of moving to relieve stress on the joint. ? Direct manipulation of the SI joint. ? Use of a device that provides electrical stimulation to help reduce pain at the joint. Other treatments may include: ? Injections of steroid medicine into the joint to reduce pain and swelling. ? Radiofrequency ablation. This treatment uses heat to burn away nerves that are carrying pain messages from the joint. ? Surgery to put in screws and plates that limit or prevent joint motion. This is rare. Follow these instructions at home: Medicines ? Take uaom-brh-vzhquzv and prescription medicines only as told by your health care provider. ? Ask your health care provider if the medicine prescribed to you: ? Requires you to avoid driving or using machinery. ? Can cause constipation. You may need to take these actions to prevent or treat constipation: ? Drink enough fluid to keep your urine pale yellow. ? Take uhss-nac-pqzsgdh or prescription medicines. ? Eat foods that are high in fiber, such as beans, whole grains, and fresh fruits and vegetables. ? Limit foods that are high in fat and processed sugars, such as fried or sweet foods. If you have a brace: ? Wear the brace as told by your health care provider. Remove it only as told by your health care provider. ? Keep the brace clean. ? If the brace is not waterproof: ? Do not let it get wet. ? Cover it with a watertight covering when you take a bath or a shower. Managing pain, stiffness, and swelling ? Icing can help with pain and swelling. Heat may help with muscle tension or spasms. Ask your healthcare provider if you should use ice or heat. ? If directed, put ice on the affected area: ? If you have a removable brace, remove it as told by your health care provider. ? Put ice in a plastic bag. ? Place a towel between your skin and the bag. ? Leave the ice on for 20 minutes, 2???3 times a day. ? Remove the ice if your skin turns bright red. This is very important. If you cannot feel pain, heat, or cold, you have a greater risk of damage to the area. ? If directed, apply heat to the affected area as often as told by your health care provider. Use theheat source that your health care provider recommends, such as a moist heat pack or a heating pad. ? Place a towel between your skin and the heat source. ? Leave the heat on for 20???30 minutes. ? Remove the heat if your skin turns bright red. This is especially important if you are unable to feel pain, heat, or cold. You may have a greater risk of getting burned. General instructions ? Rest as needed. Return to your normal activities as told by your health care provider. Ask your health care provider what activities are safe for you. ? Do exercises as told by your health care provider or physical therapist. ? Keep all follow-up visits. This is important. Contact a health care provider if: ? Your pain is not controlled with medicine. ? You have a fever. ? Your pain is getting worse. Get help right away if: ? You have weakness, numbness, or tingling in your legs or feet. ? You lose control of your bladder or bowels. Summary ? Sacroiliac (SI) joint dysfunction is a condition that causes inflammation on one or both sides of the SI joint. ? This condition causes deep aching or burning pain in the low back. In some cases, the pain may alsospread into one or both buttocks, hips, or thighs. ? Treatment depends on the cause and severity of your condition. It may include medicines to reduce pain and swelling or to relax muscles. This information is not intended to replace advice given to you by your health care provider. Make sure you discuss any questions you have with your health care provider. Document Revised: 09/07/2020 Document Reviewed: 09/07/2020 [employer] Patient Education ?? 2022 [employer] Acute Back Pain, Adult Acute back pain is sudden and usually short-lived. It is often caused by an injury to the muscles and tissues in the back. The injury may result from: ? A muscle, tendon, or ligament getting overstretched or torn. Ligaments are tissues that connect bones to each other. Lifting something improperly can cause a back strain. ? Wear and tear (degeneration) of the spinal disks. Spinal disks are circular tissue that provide cushioning between the bones of the spine (vertebrae). ? Twisting motions, such as while playing sports or doing yard work. ? A hit to the back. ? Arthritis. You may have a physical exam, lab tests, and imaging tests to find the cause of your pain. Acute back pain usually goes away with rest and home care. Follow these instructions at home: Managing pain, stiffness, and swelling ? Take mojq-bab-caqwemu and prescription medicines only as told by your health care provider. Treatment may include medicines for pain and inflammation that are taken by mouth or applied to the skin, or muscle relaxants. ? Your health care provider may recommend applying ice during the first 24???48 hours after your painstarts. To do this: ? Put ice in a plastic bag. ? Place a towel between your skin and the bag. ? Leave the ice on for 20 minutes, 2???3 times a day. ? Remove the ice if your skin turns bright red. This is very important. If you cannot feel pain, heat, or cold, you have a greater risk of damage to the area. ? If directed, apply heat to the affected area as often as told by your health care provider. Use theheat source that your health care provider recommends, such as a moist heat pack or a heating pad. ? Place a towel between your skin and the heat source. ? Leave the heat on for 20???30 minutes. ? Remove the heat if your skin turns bright red. This is especially important if you are unable to feel pain, heat, or cold. You have a greater risk of getting burned. Activity ? Do not stay in bed. Staying in bed for more than 1???2 days can delay your recovery. ? Sit up and stand up straight. Avoid leaning forward when you sit or hunching over when you stand. ? If you work at a desk, sit close to it so you do not need to lean over. Keep your chin tucked in. Keep your neck drawn back, and keep your elbows bent at a 90-degree angle (right angle). ? Sit high and close to the steering wheel when you drive. Add lower back (lumbar) support to your car seat, if needed. ? Take short walks on even surfaces as soon as you are able. Try to increase the length of time you walk each day. ? Do not sit, drive, or computer support specialist instructor one place for more than 30 minutes at a time. Sitting or standing for long periods of time can put stress on your back. ? Do not drive or use heavy machinery while taking prescription pain medicine. ? Use proper lifting techniques. When you bend and lift, use positions that put less stress on your back: ? Bend your knees. ? Keep the load close to your body. ? Avoid twisting. ? Exercise regularly as told by your health care provider. Exercising helps your back heal faster andhelps prevent back injuries by keeping muscles strong and flexible. ? Work with a physical therapist to make a safe exercise program, as recommended by your health care provider. Do any exercises as told by your physical therapist. Lifestyle ? Maintain a healthy weight. Extra weight puts stress on your back and makes it difficult to have good posture. ? Avoid activities or situations that make you feel anxious or stressed. Stress and anxiety increase muscle tension and can make back pain worse. Learn ways to manage anxiety and stress, such as through exercise. General instructions ? Sleep on a firm mattress in a comfortable position. Try lying on your side with your knees slightlybent. If you lie on your back, put a pillow under your knees. ? Keep your head and neck in a straight line with your spine (neutral position) when using electronicequipment like smartphones or pads. To do this: ? Raise your smartphone or pad to look at it instead of bending your head or neck to look down. ? Put the smartphone or pad at the level of your face while looking at the screen. ? Follow your treatment plan as told by your health care provider. This may include: ? Cognitive or behavioral therapy. ? Acupuncture or massage therapy. ? Meditation or yoga. Contact a health care provider if: ? You have pain that is not relieved with rest or medicine. ? You have increasing pain going down into your legs or buttocks. ? Your pain does not improve after 2 weeks. ? You have pain at night. ? You lose weight without trying. ? You have a fever or chills. ? You develop nausea or vomiting. ? You develop abdominal pain. Get help right away if: ? You develop new bowel or bladder control problems. ? You have unusual weakness or numbness in your arms or legs. ? You feel faint. These symptoms may represent a serious problem that is an emergency. Do not wait to see if the symptoms will go away. Get medical help right away. Call your local emergency services (911 in the [place] Do not drive yourself to the hospital. Summary ? Acute back pain is sudden and usually short-lived. ? Use proper lifting techniques. When you bend and lift, use positions that put less stress on your back. ? Take wmfy-ztn-zotalbr and prescription medicines only as told by your health care provider, and apply heat or ice as told. This information is not intended to replace advice given to you by your health care provider. Make sure you discuss any questions you have with your health care provider. Document Revised: 07/20/2021 Document Reviewed: 07/20/2021 [employer] Patient Education ?? 2022 [employer] Patient/Tax Associate Attorney Signature Patient Name:MANISHA FARIAS I have received this information and my questions have been answered. Patient/Tax Associate Attorney Name: Patient/Tax Associate Attorney Signature: Relationship to Patient: Witness Name/Signature: Date: Electronically Signed on: 11/14/2022 14:25 EDTSigned by:Rochelle Joyce MD: PERFORM Event Display: ED Discharge Information Authored Date: [id number] MANISHA FARIAS :1960 Age:62 years Sex:Female Visit Date:11/14/2022 Primary Care Physician: Steven Jordan MD Discharge Instructions We would like to thank you for allowing us to assist you with your healthcare needs. The following includes patient education materials and information regarding your injury/illness. Discharge Vitals Temperature??(Temporal Artery) 96.8 ??F (36.0 ??C) Heart Rate??(Peripheral) 90 Respiratory Rate?? 18 Blood Pressure?? 119/90?? Height?? 64.96 in (165.000 cm) Weight??(Estimated) 220.04 lb (99.79 kg) Allergies ADHESIVE TAPE DULoxetine acetaminophen-hydrocodone??(Itching) acetaminophen-oxycodone??(Itching) atorvastatin buPROPion citalopram codeine??(Itching) escitalopram exenatide??(Nausea) ezetimibe-simvastatin indomethacin liraglutide metFORMIN??(Itching) rosuvastatin sertraline??(Chest pain) What to Do Next Instructions from Your Care Team Take your Flexeril 10 mg 3 times a day as needed try heat or ice to the area.?? Keep your appointment with your primary care provider tomorrow.?? If you worsen return to the emergency department. You Need to Schedule the Following Appointments Follow Up with??Follow up with primary care provider When:??Within 1 to 2 weeks You were treated today on an emergency [...] How Much When Why Instructions Next Dose Unchanged aspirin (Aspi-Cor 81 mg oral delayed release tablet) Unchanged clonazePAM (clonazePAM 1 mg oral tablet) Unchanged cyclobenzaprine (cyclobenzaprine 10 mg oral tablet) 1 tab Oral (given by mouth) 3 times a day as needed for as needed for muscle spasm Lumbar disc herniation Unchanged cyclobenzaprine (cyclobenzaprine 5 mg oral tablet) 1 tab Oral (given by mouth) Every day as needed for as needed for muscle spasm Back pain Duration: 5 Days Unchanged dexlansoprazole (Dexilant 30 mg oral delayed [...] the skin) Every week Duration: 4 weeks Education Materials Sacroiliac Joint Dysfunction Sacroiliac joint dysfunction is a condition that causes inflammation on one or both sides of the sacroiliac (SI) joint. The SI joint is the joint between two bones of the pelvis called the sacrum andthe ilium. The sacrum is the bone at the base of the spine. The ilium is the large bone that forms the hip. This condition causes deep aching or burning pain in the low back. In some cases, the pain may also spread into one or both buttocks, hips, or thighs. What are the causes? This condition may be caused by: ? . During , extra stress is put on the SI joints because the pelvis widens. ? Injury, such as: ? Injuries from car crashes. ? Sports-related injuries. ? Work-related injuries. ? Having one leg that is shorter than the other. ? Conditions that affect the joints, such as: ? Rheumatoid arthritis. ? Gout. ? Psoriatic arthritis. ? Joint infection (septic arthritis). Sometimes, the cause of SI joint dysfunction is not known. What are the signs or symptoms? Symptoms of this condition include: ? Aching or burning pain in the lower back. The pain may also spread to other areas, such as: ? Buttocks. ? Groin. ? Thighs. ? Muscle spasms in or around the painful areas. ? Increased pain when standing, walking, running, stair climbing, bending, or lifting. How is this diagnosed? This condition is diagnosed with a physical exam and your medical history. During the exam, the health care provider may move one or both of your legs to different positions to check for pain. Various tests may be done to confirm the diagnosis, including: ? Imaging tests to look for other causes of pain. These may include: ? MRI. ? CT scan. ? Bone scan. ? Diagnostic injection. A numbing medicine is injected into the SI joint using a needle. If your painis temporarily improved or stopped after the injection, this can indicate that SI joint dysfunctionis the problem. How is this treated? Treatment depends on the cause and severity of your condition. Treatment options can be noninvasiveand may include: ? Ice or heat applied to the lower back area after an injury. This may help reduce pain and muscle spasms. ? Medicines to relieve pain or inflammation or to relax the muscles. ? Wearing a back brace (sacroiliac brace) to help support the joint while your back is healing. ? Physical therapy to increase muscle strength around the joint and flexibility at the joint. This may also involve learning proper body positions and ways of moving to relieve stress on the joint. ? Direct manipulation of the SI joint. ? Use of a device that provides electrical stimulation to help reduce pain at the joint. Other treatments may include: ? Injections of steroid medicine into the joint to reduce pain and swelling. ? Radiofrequency ablation. This treatment uses heat to burn away nerves that are carrying pain messages from the joint. ? Surgery to put in screws and plates that limit or prevent joint motion. This is rare. Follow these instructions at home: Medicines ? Take icge-spk-wdpzueu and prescription medicines only as told by your health care provider. ? Ask your health care provider if the medicine prescribed to you: ? Requires you to avoid driving or using machinery. ? Can cause constipation. You may need to take these actions to prevent or treat constipation: ? Drink enough fluid to keep your urine pale yellow. ? Take fwup-onu-wmvgyoe or prescription medicines. ? Eat foods that are high in fiber, such as beans, whole grains, and fresh fruits and vegetables. ? Limit foods that are high in fat and processed sugars, such as fried or sweet foods. If you have a brace: ? Wear the brace as told by your health care provider. Remove it only as told by your health care provider. ? Keep the brace clean. ? If the brace is not waterproof: ? Do not let it get wet. ? Cover it with a watertight covering when you take a bath or a shower. Managing pain, stiffness, and swelling ? Icing can help with pain and swelling. Heat may help with muscle tension or spasms. Ask your healthcare provider if you should use ice or heat. ? If directed, put ice on the affected area: ? If you have a removable brace, remove it as told by your health care provider. ? Put ice in a plastic bag. ? Place a towel between your skin and the bag. ? Leave the ice on for 20 minutes, 2???3 times a day. ? Remove the ice if your skin turns bright red. This is very important. If you cannot feel pain, heat, or cold, you have a greater risk of damage to the area. ? If directed, apply heat to the affected area as often as told by your health care provider. Use theheat source that your health care provider recommends, such as a moist heat pack or a heating pad. ? Place a towel between your skin and the heat source. ? Leave the heat on for 20???30 minutes. ? Remove the heat if your skin turns bright red. This is especially important if you are unable to feel pain, heat, or cold. You may have a greater risk of getting burned. General instructions ? Rest as needed. Return to your normal activities as told by your health care provider. Ask your health care provider what activities are safe for you. ? Do exercises as told by your health care provider or physical therapist. ? Keep all follow-up visits. This is important. Contact a health care provider if: ? Your pain is not controlled with medicine. ? You have a fever. ? Your pain is getting worse. Get help right away if: ? You have weakness, numbness, or tingling in your legs or feet. ? You lose control of your bladder or bowels. Summary ? Sacroiliac (SI) joint dysfunction is a condition that causes inflammation on one or both sides of the SI joint. ? This condition causes deep aching or burning pain in the low back. In some cases, the pain may alsospread into one or both buttocks, hips, or thighs. ? Treatment depends on the cause and severity of your condition. It may include medicines to reduce pain and swelling or to relax muscles. This information is not intended to replace advice given to you by your health care provider. Make sure you discuss any questions you have with your health care provider. Document Revised: 09/07/2020 Document Reviewed: 09/07/2020 [employer] Patient Education ?? 2022 [employer] Acute Back Pain, Adult Acute back pain is sudden and usually short-lived. It is often caused by an injury to the muscles and tissues in the back. The injury may result from: ? A muscle, tendon, or ligament getting overstretched or torn. Ligaments are tissues that connect bones to each other. Lifting something improperly can cause a back strain. ? Wear and tear (degeneration) of the spinal disks. Spinal disks are circular tissue that provide cushioning between the bones of the spine (vertebrae). ? Twisting motions, such as while playing sports or doing yard work. ? A hit to the back. ? Arthritis. You may have a physical exam, lab tests, and imaging tests to find the cause of your pain. Acute back pain usually goes away with rest and home care. Follow these instructions at home: Managing pain, stiffness, and swelling ? Take vfjz-ydc-imvpjpv and prescription medicines only as told by your health care provider. Treatment may include medicines for pain and inflammation that are taken by mouth or applied to the skin, or muscle relaxants. ? Your health care provider may recommend applying ice during the first 24???48 hours after your painstarts. To do this: ? Put ice in a plastic bag. ? Place a towel between your skin and the bag. ? Leave the ice on for 20 minutes, 2???3 times a day. ? Remove the ice if your skin turns bright red. This is very important. If you cannot feel pain, heat, or cold, you have a greater risk of damage to the area. ? If directed, apply heat to the affected area as often as told by your health care provider. Use theheat source that your health care provider recommends, such as a moist heat pack or a heating pad. ? Place a towel between your skin and the heat source. ? Leave the heat on for 20???30 minutes. ? Remove the heat if your skin turns bright red. This is especially important if you are unable to feel pain, heat, or cold. You have a greater risk of getting burned. Activity ? Do not stay in bed. Staying in bed for more than 1???2 days can delay your recovery. ? Sit up and stand up straight. Avoid leaning forward when you sit or hunching over when you stand. ? If you work at a desk, sit close to it so you do not need to lean over. Keep your chin tucked in. Keep your neck drawn back, and keep your elbows bent at a 90-degree angle (right angle). ? Sit high and close to the steering wheel when you drive. Add lower back (lumbar) support to your car seat, if needed. ? Take short walks on even surfaces as soon as you are able. Try to increase the length of time you walk each day. ? Do not sit, drive, or computer support specialist instructor one place for more than 30 minutes at a time. Sitting or standing for long periods of time can put stress on your back. ? Do not drive or use heavy machinery while taking prescription pain medicine. ? Use proper lifting techniques. When you bend and lift, use positions that put less stress on your back: ? Bend your knees. ? Keep the load close to your body. ? Avoid twisting. ? Exercise regularly as told by your health care provider. Exercising helps your back heal faster andhelps prevent back injuries by keeping muscles strong and flexible. ? Work with a physical therapist to make a safe exercise program, as recommended by your health care provider. Do any exercises as told by your physical therapist. Lifestyle ? Maintain a healthy weight. Extra weight puts stress on your back and makes it difficult to have good posture. ? Avoid activities or situations that make you feel anxious or stressed. Stress and anxiety increase muscle tension and can make back pain worse. Learn ways to manage anxiety and stress, such as through exercise. General instructions ? Sleep on a firm mattress in a comfortable position. Try lying on your side with your knees slightlybent. If you lie on your back, put a pillow under your knees. ? Keep your head and neck in a straight line with your spine (neutral position) when using electronicequipment like smartphones or pads. To do this: ? Raise your smartphone or pad to look at it instead of bending your head or neck to look down. ? Put the smartphone or pad at the level of your face while looking at the screen. ? Follow your treatment plan as told by your health care provider. This may include: ? Cognitive or behavioral therapy. ? Acupuncture or massage therapy. ? Meditation or yoga. Contact a health care provider if: ? You have pain that is not relieved with rest or medicine. ? You have increasing pain going down into your legs or buttocks. ? Your pain does not improve after 2 weeks. ? You have pain at night. ? You lose weight without trying. ? You have a fever or chills. ? You develop nausea or vomiting. ? You develop abdominal pain. Get help right away if: ? You develop new bowel or bladder control problems. ? You have unusual weakness or numbness in your arms or legs. ? You feel faint. These symptoms may represent a serious problem that is an emergency. Do not wait to see if the symptoms will go away. Get medical help right away. Call your local emergency services (911 in the [place] Do not drive yourself to the hospital. Summary ? Acute back pain is sudden and usually short-lived. ? Use proper lifting techniques. When you bend and lift, use positions that put less stress on your back. ? Take [id number] and prescription medicines only as told by your health care provider, and apply heat or ice as told. This information is not intended to replace advice given to you by your health care provider. Make sure you discuss any questions you have with your health care provider. Document Revised: 07/20/2021 Document Reviewed: 07/20/2021 Elsevier Patient Education ?? 2022 [employer] Patient/Tax Associate Attorney Signature Patient Name:MANISHA FARIAS I have received this information and my questions have been answered. Patient/Tax Associate Attorney Name: Patient/Tax Associate Attorney Signature: Relationship to Patient: Witness Name/Signature: Date: Electronically Signed on: 11/14/2022 14:22 EDTSigned by:AMS Discharge summary * Alicia Arnett: PERFORM Event Display: Discharge Note Authored Date: * Alicia Arnett: PERFORM Event Display: Discharge Note Authored Date: Diagnosis: 1. Back pain Comment: Diagnosis: Back pain Comment: Electronically Signed on 11/14/22 02:39 PM Alicia Arnett Patient Care team information Care Team Personnel Name: Steven Jordan MD Position: No Access Member Role: Primary Care Physician Address: Address: [id number] [place] [address] Name: Arnaud Ortega RN Position: Nurse Member Role: ED Nurse Name: Rochelle Robbins MD Position: Physician Member Role: ED Physician Address: Address: [address] [place] [address] Care Team Related Persons Name: ROGELIO FARIAS
--- OUTSIDE RECORDS SUMMARY | 2023-11-25 15:29 | XMS_ITS | Continuity of Care Document ---
Author Organization [facility] Address [address] [place] [address] Care Team Providers Care Cook Night Name Role Phone Primeau IPHCSteven Primary Care Physician Encounter [facility] [id number] Date(s): 05/19/23 - 05/19/[address] [address] Discharge Disposition: Home or Self Care Attending Physician: Kaylee Jaquez PA-C Admitting Physician: Kaylee Jaquez PA-C Referring Physician: Kaylee aJquez PA-C Allergies, Adverse Reactions, Alerts Substance Reaction Severity [...] Unknown Active liraglutide Unknown Active 1skin chambers 7123136 3Headache 4Constipation 5GI upset 6GI upset 7Constipation 8Constipation 9Increased depression 10Increases blood sugar Medications Aspi-Cor 81 mg oral delayed release tablet 0 Refill(s) Start Date: 10/29/21 Status: Ordered clonazePAM 1 mg oral tablet 0 Refill(s) Start Date: 12/17/21 Status: Ordered cyclobenzaprine 10 mg oral tablet 10 mg = 1 tab, Oral, TID, PRN as needed for muscle spasm, # 30 tab, 0 Refill(s), Pharmacy: [id number], 165, cm, 12/17/21 12:57:00 EDT, [...] Daily, # 45 tab, 3 Refill(s), Pharmacy: [facility], 165, cm, 12/17/21 12:57:00 EDT, Height/Length Dosing, 98.88, kg, 12/17/21 12:57:00 EDT, Weight Dosing Start Date: 01/07/22 Status: Ordered Metoprolol Succinate ER 50 mg oral tablet, extended release 1 tab, Oral, Daily, # 90 tab, 3 Refill(s), Pharmacy: [facility], 165, cm, 12/17/21 12:57:00 EDT, [...] Completed 1stents to JEANETH to LAD LPA&LPL1 Social History Social History Type Response Tobacco Current everyday tob acco user Tobacco Use:. Sex Female Patient Care team information Care Team Personnel Name: Mervin Steven ALEXIS MD Position: No Access Member Role: Primary Care Physician Address: Address: [place] [address]- Care Team Related Persons Name: ROGELIO FARIAS
--- OUTSIDE RECORDS SUMMARY | 2023-11-25 15:29 | XMS_ITS | Continuity of Care Document ---
Author Organization [facility] Address [address] [place] [address] Care Team Providers Care Oral Surgery Physician Name Role Phone Primeau Steven ALEXIS Primary Care Physician Encounter [facility] Date(s): 08/15/22 - 08/15/[address] [address] Discharge Disposition: Home or Self Care Attending Physician: Kaylee Jaquez PA-C Admitting Physician: Kaylee Jaquez PA-C Referring Physician: Kaylee Jaquez PA-C Allergies, Adverse Reactions, Alerts Substance Reaction [...] Unknown Active liraglutide Unknown Active 1skin chambers [id number] 3Headache 4Constipation 5GI upset 6GI upset 7Constipation [...] spasm, # 30 tab, 0 Refill(s), Pharmacy: [facility], 165, cm, 12/17/21 12:57:00 [...] Daily, # 45 tab, 3 Refill(s), Pharmacy: [facility], 165, cm, 12/17/21 12:57:00 EDT, Height/Length Dosing, 98.88, kg, 12/17/21 12:57:00 EDT, Weight Dosing Start Date: 01/07/22 Status: Ordered Metoprolol Succinate ER 50 mg oral tablet, extended release 1 tab, Oral, Daily, # 90 tab, 3 Refill(s), Pharmacy: [facility], 165, cm, 12/17/21 12:57:00 [...] PPD per day. 46 year(s). Sex Female Patient Care team information Care Team Personnel Name: Steven Jordan MD Position: No Access Member Role: Primary Care Physician Address: Address: [id number] [place] [address] Care Team Related Persons Name: ROGELIO FARIAS Address: Home
--- OUTSIDE RECORDS SUMMARY | 2023-11-25 15:29 | XMS_ITS | Continuity of Care Document ---
Author Organization [facility] Address [address] [place] [address] Care Team Providers Care Photographic Spotter Name Role Phone Primeau IPHCSteven Primary Care Physician Encounter [facility] Date(s): 12/25/22 - 12/25/[address] [address] Discharge Disposition: Home or Self Care Attending Physician: Kayli Rader Admitting Physician: Kayli Rader Referring Physician: Kayli Rader Allergies, Adverse Reactions, Alerts Substance Reaction Severity [...] Unknown Active liraglutide Unknown Active 1skin chambers [id number] 3Headache 4Constipation 5GI upset 6GI upset 7Constipation [...] spasm, # 30 tab, 0 Refill(s), Pharmacy: [facility], 165, cm, 12/17/21 12:57:00 EDT, [...] Daily, # 45 tab, 3 Refill(s), Pharmacy: [facility], 165, cm, 12/17/21 12:57:00 EDT, Height/Length Dosing, 98.88, kg, 12/17/21 12:57:00 EDT, Weight Dosing Start Date: 01/07/22 Status: Ordered Metoprolol Succinate ER 50 mg oral tablet, extended release 1 tab, Oral, Daily, # 90 tab, 3 Refill(s), Pharmacy: [facility], 165, cm, 12/17/21 12:57:00 EDT, [...] Member Role: Primary Care Physician Address: Address: [address] [address]- Care Team Related Persons Name: ROGELIO FARIAS Address: Home
--- OUTSIDE RECORDS SUMMARY | 2023-11-25 15:29 | XMS_ITS | Continuity of Care Document ---
Author Organization [facility] Address [address] [place] [address] Care Team Providers Care Workplace Trainer And Assessor Name Role Phone Primeau HCSteven Primary Care Physician [facility] [id number] Date(s): 09/05/23 - 09/05/[address] [address] Encounter Diagnosis Pain in joint of right wrist(Discharge Diagnosis) - 09/05/23 Discharge Disposition: Home or Self Care Attending Physician: Priscilla Fuller PA-C Admitting Physician: Priscilla Fuller PA-C Referring Physician: Priscilla Fuller PA-C Allergies, Adverse Reactions, Alerts Substance Reaction [...] Unknown Active liraglutide Unknown Active 1skin chambers [id number] 3Headache 4Constipation 5GI upset 6GI upset 7Constipation [...] spasm, # 30 tab, 0 Refill(s), Pharmacy: [facility], 165, cm, 12/17/21 12:57:00 EDT, [...] Daily, # 45 tab, 3 Refill(s), Pharmacy: [facility], 165, cm, 12/17/21 12:57:00 EDT, Height/Length Dosing, 98.88, kg, 12/17/21 12:57:00 EDT, Weight Dosing Start Date: 01/07/22 Status: Ordered Metoprolol Succinate ER 50 mg oral tablet, extended release 1 tab, Oral, Daily, # 90 tab, 3 Refill(s), Pharmacy: [facility], 165, cm, 12/17/21 12:57:00 EDT, [...] - left inner arm Completed 1stents to JENAETH to LAD LPA&LPL1 Social History Social History Type Response Tobacco Current everyday tob acco user Tobacco Use:. Sex Female Patient Care team information Care Team Personnel Name: Steven Jordan MD Position: No Access Member Role: Informed Provider Address: Address: [facility] [address] [place] [address]- Care Team Related Persons Name: ROGELIO FARIAS Address: Home [address] [place], [id number]
--- OUTSIDE RECORDS SUMMARY | 2023-11-25 15:29 | XMS_ITS | Continuity of Care Document ---
Author Organization [facility] Address [address] [place] [address] Care Team Providers Care Outside Production Inspector Name Role Phone Primeau Steven ALEXIS Primary Care Physician Encounter [facility] Date(s): 11/10/22 - 11/10/[address] [address] Encounter Diagnosis Back pain(Discharge Diagnosis) - 11/10/22 Discharge Disposition: Home or Self Care Attending [...] Unknown Active liraglutide Unknown Active 1skin chambers [id number] 3Headache 4Constipation 5GI upset 6GI upset 7Constipation [...] spasm, # 30 tab, 0 Refill(s), Pharmacy: [id number], 165, cm, 12/17/21 12:57:00 EDT, Height/Length Dosing, 98.88, kg, 12/17/21 12:57:00 EDT, Weight Dosing Start Date: 12/17/21 Status: Ordered cyclobenzaprine 5 mg oral tablet 5 mg = 1 tab, Oral, Daily, PRN as needed for muscle spasm, X 5 days, # 12 tab, 0 Refill(s), 11/15/22 13:40:00 EDT, Pharmacy: [id number], 165.1, cm, 11/10/22 12:55:00 EDT, [...] Daily, # 45 tab, 3 Refill(s), Pharmacy: [id number], 165, cm, 12/17/21 12:57:00 EDT, Height/Length Dosing, 98.88, kg, 12/17/21 12:57:00 EDT, Weight Dosing Start Date: 01/07/22 Status: Ordered Metoprolol Succinate ER 50 mg oral tablet, extended release 1 tab, Oral, Daily, # 90 tab, 3 Refill(s), Pharmacy: [id number], 165, cm, 12/17/21 12:57:00 EDT, [...] Temperature Temporal Artery [36-38 Deg C ] 36.4 Deg C (11/10/22 12:51 PM) Peripheral Pulse Rate [60-100 bpm] 89 bp m (11/10/22 12:51 PM) Respiratory Rate [12-24 br/min] 16 br/mi n (11/10/22 12:51 PM) Blood Pressure [90-140/60-90 mmHg] 149/9 5mmHg *HI* (11/10/22 12:51 PM) Weight Dosing 99.79 kg (11/10/22 12:55 PM) Weight Estimated 99.79 kg (11/10/22 12:51 PM) Height/Length Dosing 165.100 cm (11/10/22 12:55 PM) Height/Length Estimated 165.100 cm (11/10/22 12:51 PM) Social History Social History Type Response Tobacco Current everyday tob acco user Tobacco Use:. Sex Female Hospital Discharge Instructions Patient Education 11/10/2022 12:40:21 Chronic Back Pain Chronic Back Pain When back pain lasts longer than 3 months, it is called chronic back pain. The cause of your back pain may not be known. Some common causes include: ??? Wear and tear (degenerative disease) of the bones, ligaments, or disks in your back. ??? Inflammation and stiffness in your back (arthritis). People who have chronic back pain often go through certain periods in which the pain is more intense (flare-ups). Many people can learn to manage the pain with home care. Follow these instructions at home: Pay attention to any changes in your symptoms. Take these actions to help with your pain: Managing pain and stiffness ??? If directed, apply ice to the painful area. Your health care provider may recommend applying ice during the first 24???48 hours after a flare-up begins. To do this: ??? Put ice in a plastic bag. ??? Place a towel between your skin and the bag. ??? Leave the ice on for 20 minutes, 2???3 times per day. ??? If directed, apply heat to the [...] have a greater risk of getting burned. ??? Try soaking in a warm tub. Activity ??? Avoid bending and other activities that make the problem worse. ??? Maintain a proper position when standing or sitting: ??? When standing, keep your upper back and neck straight, with your shoulders pulled back. Avoid slouching. ??? When sitting, keep your back straight and relax your shoulders. Do not round your shoulders or pull them backward. ??? Do not sit or od grinder operator one place for long periods of time. ??? Take brief periods of rest throughout the day. This will reduce your pain. Resting in a lying or standing position is usually better than sitting to rest. ??? When you are resting for longer periods, mix in some mild activity or stretching between periods of rest. This will help to prevent stiffness and pain. ??? Get regular exercise. Ask your health care provider what activities are safe for you. ??? Do not lift anything that is heavier than 10 lb (4.5 kg), or the limit that you are told, untilyour health care provider says that it is safe. Always use proper lifting technique, which includes: ??? Bending your knees. ??? Keeping the load close to your body. ??? Avoiding twisting. ??? Sleep on a firm mattress in a comfortable position. Try lying on your side with your knees slightly bent. If you lie on your back, put a pillow under your knees. Medicines ??? Treatment may include medicines for pain and inflammation taken by mouth or applied to the skin, prescription pain medicine, or muscle relaxants. Take jxuu-cnv-ffhixfj and prescription medicines only as told by your health care provider. ??? Ask your health care provider if the medicine prescribed to you: ??? Requires you to avoid driving or using machinery. ??? Can cause constipation. You may need to take these actions to prevent or treat constipation: ??? Drink enough fluid to keep your urine pale yellow. ??? Take iwhs-oxf-ggcmrae or prescription medicines. ??? Eat foods that are high in fiber, such as beans, whole grains, and fresh fruits and vegetables. ??? Limit foods that are high in fat and processed sugars, such as fried or sweet foods. General instructions ??? Do not use any products that contain nicotine or tobacco, such as cigarettes, e-cigarettes, andchewing tobacco. If you need help quitting, ask your health care provider. ??? Keep all follow-up visits as told by your health care provider. This is important. Contact a health care provider if: ??? You have pain that is not relieved with rest or medicine. ??? Your pain gets worse, or you have new pain. ??? You have a high fever. ??? You have rapid weight loss. ??? You have trouble doing your normal activities. Get help right away if: ??? You have weakness or numbness in one or both of your legs or feet. ??? You have trouble controlling your bladder or your bowels. ??? You have severe back pain and have any of the following: ??? Nausea or vomiting. ??? Pain in your abdomen. ??? Shortness of breath or you faint. Summary ??? Chronic back pain is back pain that lasts longer than 3 months. ??? When a flare-up begins, apply ice to the painful area for the first 24???48 hours. ??? Apply a moist heat pad or use a heating pad on the painful area as directed by your health careprovider. ??? When you are resting for longer periods, mix in some mild activity or stretching between periods of rest. This will help to prevent stiffness and pain. This information is not intended to replace advice given to you by your health care provider. Make sure you discuss any questions you have with your health care provider. Document Revised: 06/07/2020 Document Reviewed: 06/07/2020 [employer] Patient Education ?? 2021 [employer]. Follow Up Care 11/10/2022 12:51:20 With:Primary Care Physician Address: When:1 to 2 weeks only if needed Physician Emergency department Note * Gina Castro MD: PERFORM Event Display: ED Note Physician Authored Date: [id number] MANISHA FARIAS :1960 Age:62 years Sex:Female Visit Date:11/10/2022 Primary Care Physician: Mervin KWAN, Steven Mcacrthy MD Basic Information Time Seen: Gina Castro MD / 11/10/2022 12:52 Chief Complaint Pt states she has pain toher lower back that radiates down her left leg after vacuuming 2 days ago History Of Present Illness: 62-year-old lady??with chart listed history of coronary artery disease, diabetes,??insomnia, BEN, chronic back pain, presents to the ED with c/o back pain.?? Patient reports 30 years of chronic back pain. She is followed by spine at [facility] for nerve root damage and is scheduled to have an injection in the nextfew weeks. She??developed worsening pain after vacuuming 2 days ago. The patient denies recent trauma or fall. There has been no bowel or bladder incontinence or perianal anesthesia. ??The patient also denies numbness or tingling down the extremities, or weakness of any of the extremities. The patient denies current IV drug use or history of. No h/o recent surgery or injections in the back.?? Pt says she used to go the EDs with her back pain in the past and used to get Toradol and Demorol. She would like a shot of Toradol and a muscle relaxant today. ?? ROS: In addition to the ROS embedded in the HPI, the patient has no Const: fever, chills CV: chest pain or palpittiaons Pulm: sob GI: n/v/c/d or abd pain ? Physical examination GENERAL: A&Ox3, Well developed well nourished in nad HEENT: Moist mucous membranes. NECK: Supple, no JVD. BACK: no ttp over the spine, no step off, there is paraspinal ttp on the [@@@] EXTREMITIES: No clubbing, cyanosis or edema, motor 5/5 in all 4 extremities, sensation intact, gaitis steady [@@@] with normal coordination, patellar reflexes wnl and symmetric b/l.? MDM: 62??year-old lady with worsening back pain in the setting of Chronic back pain ?? Previous charts reviewed. Vitals reviewed, nursing triage note reviewed ?? Pt is neurovascularly intact. No red flags for cauda equina or discitis ?? Pt given Toradol and Flexeril with improvement in her pain. Will d/c home with a few days of Flexeril. She has f/u at the spine clinic. Discharge instructions and return precautions discussed, all questions answered. Physical Exam Vitals & Measurements T:??36.4?C ??(Temporal Artery)?? HR:??89??(Peripheral)?? RR:??16?? BP:??149/95?? SpO2:??96%?? HT:??165.100??cm?? WT:??99.79??kg??(Estimated)?? Pain Score:??2?? O2 Therapy:??Room air?? Procedure No Qualifying Data Assessment/Plan 1.??Back pain??M54.9 Ordered: cyclobenzaprine 5 mg oral tablet, 5 mg = 1 tab, Oral, Daily, PRN as needed for muscle spasm, X 5 days, # 12 tab, 0 Refill(s), 11/15/22 13:40:00 EDT, Pharmacy: [id number], 165.1, cm, 11/10/22 12:55:00 EDT, Height/Length Dosing, 99.79, kg, 11/10/22 12:55:00 EDT, Weight Dosing Discharge Patient, 11/10/22 13:40:00 EDT, Constant Indicator ?? Patient Education Chronic Back Pain Follow Up With When Contact Information Primary Care Physician Within 1 to 2 weeks, only if needed Additional Instructions: Medication Reconciliation Changed cyclobenzaprine (cyclobenzaprine 10 mg oral tablet)1 tab Oral (given by mouth) 3 times a day as needed as needed for muscle spasm. Refills: 0. ?? cyclobenzaprine (cyclobenzaprine 5 mg oral tablet)1 tab Oral (given by mouth) every day as needed as needed for muscle spasm for 5 Days. Refills: 0. ?? Unchanged aspirin (Aspi-Cor 81 mg oral delayed release tablet) ?? clonazePAM (clonazePAM 1 mg oral tablet) ?? clopidogrel (clopidogrel 75 mg oral tablet)1 tab Oral (given by mouth) every day. ?? 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 Family History Diabetes mellitus: Sister and Brother. Myocardial infarction: Sister and Brother. Electronically Signed on 11/10/22 02:43 PM Gina Castro MD Emergency department Discharge instructions * Gina Castro MD: PERFORM Event Display: ED Discharge Information Authored Date: [id number] MANISHA FARIAS :1960 Age:62 years Sex:Female Visit Date:11/10/2022 Primary Care Physician: Steven Jordan MD Discharge Instructions We would like to thank you for allowing us to assist you with your healthcare needs. The following includes patient education materials and information regarding your injury/illness. Diagnosis from Today's Visit Back pain Discharge Vitals Temperature??(Temporal Artery) 97.5 ??F (36.4 ??C) Heart Rate??(Peripheral) 89 Respiratory Rate?? 16 Blood Pressure?? 149/95?? Height?? 65.00 in (165.100 cm) Weight??(Estimated) 220.04 lb (99.79 kg) Allergies ADHESIVE TAPE DULoxetine acetaminophen-hydrocodone??(Itching) acetaminophen-oxycodone??(Itching) atorvastatin buPROPion citalopram codeine??(Itching) escitalopram exenatide??(Nausea) ezetimibe-simvastatin indomethacin liraglutide metFORMIN??(Itching) rosuvastatin sertraline??(Chest pain) What to Do Next Instructions from Your Care Team Please continue usual pain medications as prescribed.?? For extremely severe pain, take Flexeril upto twice a day.?? Please do not drive, operate machinery or make important life decisions when taking Flexeril as it may make you sleepy.?? Follow-up with your primary care provider for reevaluation in 1 to 2 weeks as needed.?? Return to the emergency department for any new or worsening symptoms. You Need to Schedule the Following Appointments Follow Up with??Primary Care Physician When:??Within 1 to 2 weeks, only if needed You were treated today on an emergency [...] How Much When Why Instructions Next Dose Changed cyclobenzaprine (cyclobenzaprine 10 mg oral tablet) 1 tab Oral (given by mouth) 3 times a day as needed for as needed for muscle spasm Lumbar disc herniation Changed cyclobenzaprine (cyclobenzaprine 5 mg oral tablet) 1 tab Oral (given by mouth) Every day as needed for as needed for muscle spasm Back pain Duration: 5 Days Pickup at [facility] Unchanged aspirin (Aspi-Cor 81 mg oral delayed release tablet) Unchanged clonazePAM (clonazePAM 1 mg oral tablet) Unchanged clopidogrel (clopidogrel 75 mg oral tablet) 1 tab Oral (given by mouth) Every day Unchanged dexlansoprazole (Dexilant 30 mg oral delayed [...] Every week Duration: 4 weeks Pharmacy Information [facility]: [address] [place] [address] [phone] Education Materials Chronic Back Pain When back pain lasts longer than 3 months, it is called chronic back pain. The cause of your back pain may not be known. Some common causes include: ? Wear and tear (degenerative disease) of the bones, ligaments, or disks in your back. ? Inflammation and stiffness in your back (arthritis). People who have chronic back pain often go through certain periods in which the pain is more intense (flare-ups). Many people can learn to manage the pain with home care. Follow these instructions at home: Pay attention to any changes in your symptoms. Take these actions to help with your pain: Managing pain and stiffness ? If directed, apply ice to the painful area. Your health care provider may recommend applying ice during the first 24???48 hours after a flare-up begins. To do this: ? Put ice in a plastic bag. ? Place a towel between your skin and the bag. ? Leave the ice on for 20 minutes, 2???3 times per day. ? If directed, apply heat to the [...] have a greater risk of getting burned. ? Try soaking in a warm tub. Activity ? Avoid bending and other activities that make the problem worse. ? Maintain a proper position when standing or sitting: ? When standing, keep your upper back and neck straight, with your shoulders pulled back. Avoid slouching. ? When sitting, keep your back straight and relax your shoulders. Do not round your shoulders or pullthem backward. ? Do not sit or od grinder operator one place for long periods of time. ? Take brief periods of rest throughout the day. This will reduce your pain. Resting in a lying or standing position is usually better than sitting to rest. ? When you are resting for longer periods, mix in some mild activity or stretching between periods ofrest. This will help to prevent stiffness and pain. ? Get regular exercise. Ask your health care provider what activities are safe for you. ? Do not lift anything that is heavier than 10 lb (4.5 kg), or the limit that you are told, until your health care provider says that it is safe. Always use proper lifting technique, which includes: ? Bending your knees. ? Keeping the load close to your body. ? Avoiding twisting. ? Sleep on a firm mattress in a comfortable position. Try lying on your side with your knees slightlybent. If you lie on your back, put a pillow under your knees. Medicines ? Treatment may include medicines for pain and inflammation taken by mouth or applied to the skin, prescription pain medicine, or muscle relaxants. Take oypr-lza-wpzyqpd and prescription medicines onlyas told by your health care provider. ? Ask your health care provider if the medicine prescribed to you: ? Requires you to avoid driving or using machinery. ? Can cause constipation. You may need to take these actions to prevent or treat constipation: ? Drink enough fluid to keep your urine pale yellow. ? Take zrtj-mcu-yfondtz or prescription medicines. ? Eat foods that are high in fiber, such as beans, whole grains, and fresh fruits and vegetables. ? Limit foods that are high in fat and processed sugars, such as fried or sweet foods. General instructions ? Do not use any products that contain nicotine or tobacco, such as cigarettes, e- cigarettes, and chewing tobacco. If you need help quitting, ask your health care provider. ? Keep all follow-up visits as told by your health care provider. This is important. Contact a health care provider if: ? You have pain that is not relieved with rest or medicine. ? Your pain gets worse, or you have new pain. ? You have a high fever. ? You have rapid weight loss. ? You have trouble doing your normal activities. Get help right away if: ? You have weakness or numbness in one or both of your legs or feet. ? You have trouble controlling your bladder or your bowels. ? You have severe back pain and have any of the following: ? Nausea or vomiting. ? Pain in your abdomen. ? Shortness of breath or you faint. Summary ? Chronic back pain is back pain that lasts longer than 3 months. ? When a flare-up begins, apply ice to the painful area for the first 24???48 hours. ? Apply a moist heat pad or use a heating pad on the painful area as directed by your health care provider. ? When you are resting for longer periods, mix in some mild activity or stretching between periods ofrest. This will help to prevent stiffness and pain. This information is not intended to replace advice given to you by your health care provider. Make sure you discuss any questions you have with your health care provider. Document Revised: 06/07/2020 Document Reviewed: 06/07/2020 [employer] Patient Education ?? 2021 [employer] Tests Performed Medications and Immunizations Administered Given cyclobenzaprine, 10 mg, Oral Toradol, 30 mg, IM Patient/Upset Operator Signature Patient Name:MANISHA FARIAS I have received this information and my questions have been answered. Patient/Upset Operator Name: Patient/Upset Operator Signature: Relationship to Patient: Witness Name/Signature: Date: Electronically Signed on: 11/10/2022 13:43 EDTSigned by:AKANKSHA Emergency department Note * Yaneli Wakefield: PERFORM Event Display: ED Notes Authored Date: [id number] Patient Care team information Care Team Personnel Name: Steven Jordan MD Position: No Access Member Role: Primary Care Physician Address: Address: [address] Name: Gina Castro MD Position: Physician Member Role: Attending Physician Address: Address: [address] [place] [address] Name: Moe Alvarez RN Position: Nurse Member Role: ED Nurse Care Team Related Persons Name: ROGELIO FARIAS
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
--- OUTSIDE RECORDS SUMMARY | 2023-11-25 15:30 | XMS_ITS | Encounter Summary ---
Author Organization [facility] Address [address] [place] [address] Care Team Providers Care Senior Business Intelligence Analyst Name Role Phone Vicentevashti Kenia Vashti CLAIMS AUDITOR Primary Care Provider [phone] Francy Lowe CLAIMS AUDITOR Primary Care Provider [phone] Reason for Referral * Radiology Services (Routine) - Authorization Not Required Specialty Diagnoses / Procedures Referred By Contac t Referred To Contact Diagnoses Right hip pain Procedures XR HIP RIGHT 2-3 VIEWS, OPTIONAL PELVIS Helena Ramirez NP [address] [place] [address] Referral ID Status Reason Start Date Expiration Date Visits Requested Visits Authorized [id number] Authorization Not Required 11/30/2020 1 1 Reason for Visit * Reason Onset Date Comments Pain 11/27/2020 Encounter Details Date Type Department Care Team (Late st Contact Info) Description 11/27/2020 Orders Only [facility] Total Joint Program - [address] [address] Helena Ramirez NP [address] [place] [address] Right hip pain (Primary Dx) Social History Tobacco Use Types Packs/Day Years Used Date Smoking Tobacco: Never Assessed Interpersonal Safety Answer Date Record ed Physically Hurt Never 10/01/2020 Verbally Threaten Not on file 10/01/2020 Sex and Gender Information Value Date Recorded Sex Assigned at Not on file Gender Identity Not on file Sexual Orientation Not on file documented as of this encounter Plan of Treatment Not on file documented as of this encounter Results * XR HIP RIGHT 2-3 VIEWS, OPTIONAL PELVIS (11/30/2020 14:57 EDT) Anatomical Region Laterality Modality Lower Extremities Right Computed Radio graphy 12/01/2020 8:57 EDT Impressions 12/01/2020 8:57 EDT FINDINGS / IMPRESSION: Pelvis AP view, right hip AP and frog-leg oblique views: 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 There is chronic appearing deformity at the right inferior ischio pubic ramus, likely sequela from prior injury. There are mild degenerative changes involving both SI joints and the pubic symphysis. Degenerative changes are noted in the lower most portion of the lumbar spine as included on the AP pelvis radiograph, but with this region incompletely assessed. A nonspecific small intramedullary sclerotic lesion at the level of the intertrochanteric region of the proximal right femur likely represents a bone island provided the patient has no known risk factors for an osteoblastic metastasis. A ovoid 2.4 x 1.6 cm calcific density projects over the lateral subcutaneous soft tissues at the level of the intertrochanteric region, nonspecific. This can be further evaluated with ultrasound if the patient has a palpable lump or pain referrable to this area. Narrative 12/01/2020 8:57 EDT EXAM/TECHNIQUE: XR HIP RIGHT 2-3 VIEWS, OPTIONAL PELVIS ??11/30/2020 2:15 PM HISTORY: ?? pain COMPARISON: None. Procedure Note Michael Lemus MD - 12/01/2020 EXAM/TECHNIQUE: XR HIP RIGHT 2-3 VIEWS, OPTIONAL PELVIS 11/30/2020 2:15 PM HISTORY: pain COMPARISON: None. IMPRESSION FINDINGS / IMPRESSION: Pelvis AP view, right hip AP and frog-leg oblique views: There is coxaprofunda with superimposed mild osteoarthrosis involving both hip joints,but with the left hip only evaluated in the AP projection. There ischronic appearing deformity at the right inferior ischio pubic ramus,likely sequela from prior injury. There are mild degenerative changesinvolving both SI joints and the pubic symphysis. Degenerative changes arenoted in the lower most portion of the lumbar spine as included on the APpelvis radiograph, but with this region incompletely assessed. Anonspecific small intramedullary sclerotic lesion at the level of theintertrochanteric region of the proximal right femur likely represents abone island provided the patient has no known risk factors for anosteoblastic metastasis. A ovoid 2.4 x 1.6 cm calcific density projectsover the lateral subcutaneous soft tissues at the level of theintertrochanteric region, nonspecific. This can be further evaluated withultrasound if the patient has a palpable lump or pain referrable to this area. Helena Ramirez NP IMG DIAGNOSTIC IMAGI NG ORDERABLES documented in this encounter Visit Diagnoses Diagnosis Right hip pain- Primary Pain in joint, pelvic region and thigh Right hip pain Pain in joint, pelvic region and thigh documented in this encounter Care Teams Senior Business Intelligence Analyst Relationship Specialty Start Date End Date Kenia Hernandez NP [address] [place] [address] PCP - General 06/04/16 11/29/20 Francy Lowe NP [address] [place] [address] PCP - General 11/30/20 documented as of this encounter
--- OUTSIDE RECORDS SUMMARY | 2023-11-25 15:30 | XMS_ITS | Encounter Summary ---
Author Organization [facility] Address [address] [place] [address] Care Team Providers Care Child And Family Therapist Name Role Phone David Kenia Arnaldo GRINDER CHIPPER Primary Care Provider [phone] Francy Lowe GRINDER CHIPPER Primary Care Provider [phone] Encounter Details Date Type Department Care Team (Late st Contact Info) Description 01/29/2020 Lab Requisition [facility] Pathology & Laboratory Medicine - [facility] [address] [place] [address] Outr Resulting Lab, Provider Social History Tobacco Use Types Packs/Day Years Used Date Smoking Tobacco: Never Assessed Interpersonal Safety Answer Date Record ed Physically Hurt Never 12/13/2019 Verbally Threaten Not on file 12/13/2019 Sex and Gender Information Value Date Recorded Sex Assigned at Not on file Gender Identity Not on file Sexual Orientation Not on file documented as of this encounter Plan of Treatment Not on file documented as of this encounter Procedures Procedure Name Priority Date/Time Associated Diagnosis Comments CCP ANTIBODIES Routine 01/28/2020 10:00 EDT RHEUMATOID FACTOR Routine 01/28/2020 10: 00 EDT HIGH SENSITIVITY C-REACTIVE PROTEIN (CARDIOVASCULAR DISEASE) Routine 01/28/2020 10:00 EDT T3, TOTAL Routine 01/28/2020 10:00 EDT documented in this encounter Results * T3, TOTAL (01/28/2020 10:00 EDT) T3, Total 155 97 - 169 ng/dL 01/30/2020 20:29 EDT [facility] Blood VENOUS BLOOD / Unknown 01/28/2020 10:00 EDT 01/30/2020 19:43 EDT Provider Outr Resulting Lab CHEMISTRY & BLOOD GAS ORDERABLES Performing Organization Address [facility] de Phone Number [facility] [address] [place] [address] * RHEUMATOID FACTOR (01/28/2020 10:00 EDT) Rheumatoid Factor <8.6 <12.0 IU/mL 01/30/2020 20:00 EDT [facility] Blood VENOUS BLOOD / Unknown 01/28/2020 10:00 EDT 01/30/2020 19:43 EDT Provider Outr Resulting Lab CHEMISTRY & BLOOD GAS ORDERABLES Performing Organization Address [facility] de Phone Number [facility] [address] [place] [address] * CCP ANTIBODIES (01/28/2020 10:00 EDT) CCP Antibodies <2.5 <5.0 U/mL 01/31/2020 9:16 EDT [facility] Blood VENOUS BLOOD / Unknown 01/28/2020 10:00 EDT 01/30/2020 19:43 EDT Provider Outr Resulting Lab IMMUNOLOGY A ND SEROLOGY ORDERABLES Performing Organization Address [facility] de Phone Number [facility] [address] [place] [address] * HIGH SENSITIVITY C-REACTIVE PROTEIN (CARDIOVASCULAR DISEASE) (01/28/2020 10:00 EDT) High Sensitivity CRP 9.57 See Note mg/L 01/30/2020 20:00 EDT [facility] Comment: Reference Range: ??Source: The [place] [employer] Clinical Practice Recommendations, 2003 ??Low Risk: ? <1.0 mg/L ??Average Risk: ?? 1.0 - 3.0 mg/L ??High Risk: ?>3.0 mg/L ??Indeterminate*: >10.0 mg/L ??*May be an indication of another source of inflammation or infection Blood VENOUS BLOOD / Unknown 01/28/2020 10:00 EDT 01/30/2020 19:43 EDT Provider Outr Resulting Lab CHEMISTRY & BLOOD GAS ORDERABLES [facility] [address] [place] [address] documented in this encounter Visit Diagnoses Not on filedocumented in this encounter Care Teams Child And Family Therapist Relationship Specialty Start Date End Date Kenia Hernandez NP [address] [place] [address] PCP - General 06/04/16 11/29/20 Francy Lowe NP [address] [place] [address] PCP - General 11/30/20 documented as of this encounter
--- OUTSIDE RECORDS SUMMARY | 2023-11-25 15:30 | XMS_ITS | Encounter Summary ---
Author Organization [facility] Address [facility] [place] [address] Care Team Providers Care Human Resources Benefits Assistant Name Role Phone Kaylee Jaquez Primary Care Provider [phone] Encounter Details Date Type Department Care Team (Late st Contact Info) Description 10/03/2023 Telephone Physical Therapy at [facility] [address] [place] [id number] Tatyana Hernandez Social History Tobacco Use Types Packs/Day Years Used Date Smoking Tobacco: Every Day Cigarettes 0.5 45 Smokeless Tobacco: Never Comments:Quit but family marina garcia and she started smoking again 08/01/21 Alcohol Use Standard Drinks/Week Comments Not Currently 0 (1 standard drink = 0.6 oz pur e alcohol) ocassional Sex and Gender Information Value Date Recorded Sex Assigned at Not on file Gender Identity Female 02/07/2020 7:29 AM EDT Sexual Orientation Not on file documented as of this encounter Plan of Treatment Not on file documented as of this encounter Visit Diagnoses Not on filedocumented in this encounter Care Teams Human Resources Benefits Assistant Relationship Specialty Start Date End Date Kaylee Jaquez PA [address] [place] [address] PCP - General Family Medicine 01/18/22 documented as of this encounter
--- OUTSIDE RECORDS SUMMARY | 2023-11-25 15:30 | XMS_ITS | Encounter Summary ---
Author Organization [facility] [place] [address] Care Team Providers Care Dry End Operator Name Role Phone Kaylee Jaquez Primary Care Provider Encounter Details Date Type Department Care Team (Late st Contact Info) Description 09/05/2023 2:30 PM EDT Ancillary Procedure [place] [id number] Unknown None Social History Tobacco Use Types Packs/Day Years Used Date Smoking Tobacco: Every Day Cigarettes 0.5 45 Smokeless Tobacco: Never Comments:Quit but family mem radha and she started smoking again 08/01/21 Alcohol [...] Procedure Name Priority Date/Time Associated Diagnosis Comments FILM LIBRARY STORAGE ONLY DX WRIST Routine 09/05/2023 2:30 PM EDT documented in this encounter Results * Film Library- Storage Only DX Wrist (09/05/2023 2:30 PM EDT) 10/28/2023 4:11 PM EDT Narrative [facility] - 10/28/2023 4:11 PM EDT This exam is auto-finalizing. It's purpose is for storage only. Unknown IMG FILM LIBRARY ORD ERABLES [place], [place] documented in this encounter Visit Diagnoses Not on filedocumented in this encounter Care Teams Dry End Operator Relationship Specialty Start Date End Date Kaylee Jaquez PA [address] [place] [address] PCP - General Family Medicine 01/18/22 documented as of this encounter
--- OUTSIDE RECORDS SUMMARY | 2023-11-25 15:30 | XMS_ITS | Encounter Summary ---
Author Organization [facility] Address [address] [place] [address] Care Team Providers Care Coil Strapper Name Role Phone Kenia Hernandez SCARFER OPERATOR Primary Care Provider [phone] Francy Lowe SCARFER OPERATOR Primary Care Provider [phone] Encounter Details Date Type Department Care Team (Late st Contact Info) Description 10/14/2019 Lab Requisition [facility] Pathology & Laboratory Medicine - [facility] [address] [place], [place] [id number] Outr Resulting Lab, Provider Social History Tobacco Use Types Packs/Day Years Used Date Smoking Tobacco: Never Assessed Sex and Gender Information Value Date Recorded Sex Assigned at Not on file Gender Identity Not on file Sexual Orientation Not on file documented as of this encounter Plan of Treatment Not on file documented as of this encounter Procedures Procedure Name Priority Date/Time Associated Diagnosis Comments HOLD SST Today 10/13/2019 10:00 EDT T3 FREE Today 10/13/2019 10:00 EDT THYROID ANTIBODIES Today 10/13/2019 10 :00 EDT documented in this encounter Results * HOLD SST (10/13/2019 10:00 EDT) Hold Hold 10/14/2019 17:[address] [facility] Blood VENOUS BLOOD / Unknown 10/13/2019 10:00 EDT 10/14/2019 16:02 EDT Provider Outr Resulting Lab LAB INFO SER VICE AND SUPPORT & PHONE RESULT Performing Organization Address City/[facility]/ZIP Co de Phone Number [facility] [address] [place] [address] * T3 FREE (10/13/2019 10:00 EDT) T3, Free 4.4 2.8 - 5.3 pg/mL 10/14/2019 16:[address] [facility] Blood VENOUS BLOOD / Unknown 10/13/2019 10:00 EDT 10/14/2019 16:01 EDT Provider Outr Resulting Lab CHEMISTRY & BLOOD GAS ORDERABLES Performing Organization Address City/[facility] Co de Phone Number [facility] [address] [place] [address] * (ABNORMAL) THYROID ANTIBODIES (10/13/2019 10:00 EDT) Anti-Thyroglobulin 61(H) <=60 U/mL 2019 10:54 ED[address] [facility] Thyroperoxidase Ab 324(H) <=60 U/mL 2019 10:[address] [facility] Blood VENOUS BLOOD / Unknown 10/13/2019 10:00 EDT 10/14/2019 16:01 EDT Provider Outr Resulting Lab CHEMISTRY & BLOOD GAS ORDERABLES Performing Organization Address City/[facility] Co de Phone Number [facility] [address] [place] [address] documented in this encounter Visit Diagnoses Not on filedocumented in this encounter Care Teams Coil Strapper Relationship Specialty Start Date End Date Kenia Hernandez SCARFER OPERATOR [address] [place] [address] PCP - General 06/04/16 11/29/20 Francy Lowe NP [address] [place] [address] PCP - General 11/30/20 documented as of this encounter
--- OUTSIDE RECORDS SUMMARY | 2023-11-25 15:30 | XMS_ITS | Encounter Summary ---
Author Organization Formerly [facility] [place] [address] Care Team Providers Care Multiple Knife Edge Trimmer Operator Name Role Phone Kaylee Jaquez Primary Care Provider [phone] Reason for Visit * Reason Onset Date Comments Medication Refill 11/17/2023 Encounter Details Date Type Department Care Team (Late st Contact Info) Description 11/17/2023 Refill Gastroenterology at [facility] [place] [address] Nimesh Alicia [place] [address] Gastroparesis Social History Tobacco Use Types Packs/Day Years [...] as of this encounter Visit Diagnoses Diagnosis Gastroparesis documented in this encounter Care Teams Multiple Knife Edge Trimmer Operator Relationship Specialty Start Date End Date Kaylee Jaquez PA [address] [place] [address] PCP - General Family Medicine 01/18/22 documented as of this encounter
--- OUTSIDE RECORDS SUMMARY | 2023-11-25 15:30 | XMS_ITS | Encounter Summary ---
Author Organization [facility] [place] [address] Care Team Providers Care Telesales Manager Name Role Phone Kaylee Jaquez Primary Care Provider [phone] Reason for Visit * Auth/Cert (Routine) Specialty Diagnoses / Procedures Referred By Jasson t Referred To Contact Diagnoses Gastroparesis villegas's surveillance Procedures PRO UPPER GI ENDOSCOPY, DIAGNOSTIC PRO UPPER GI ENDOSCOPY, BIOPSY PRO UP GI ENDOSCOPY, REMV TUMOR, SNARE PRO ANES, UGI ENDOSCOPY NOS EGD, UPPER GI ENDOSCOPY (WRVU 2.09) Nimesh Alicia MD [facility] [place] [address] [facility] Referral ID Status Reason Start Date Expiration Date Visits Re quested Visits Authorized [id number] 1 1 Encounter Details Date Type Department Care Team (Late st Contact Info) Description 10/03/2023 10:30 AM EDT - 10/03/2023 11:00 AM EDT [place] [address] Nimesh Alicia MD [facility] [place] [address] EGD WITH BIOPSY (WRVU 2.39) Social History Tobacco Use Types Packs/Day Years Used Date Smoking Tobacco: Every Day Cigarettes 0.5 45 Smokeless Tobacco: Never Tobacco Cessation:Ready to Q uit: Not Asked; Counseling Given: Not Answered Comments:Quit but family member and she started smoking again 08/01/21 Alcohol Use Standard Drinks/Week Comments Not Currently 0 (1 standard drink = 0.6 oz pur e alcohol) ocassional Sex and Gender Information Value Date Recorded Sex Assigned at Not on file Gender Identity Female 02/07/2020 7:29 AM EDT Sexual Orientation Not on file documented as of this encounter Last Filed Vital Signs Vital Sign Reading Time Taken Comments Blood Pressure 109/76 10/03/2023 10:07 AM EDT Pulse 68 10/03/2023 10:07 AM EDT Temperature 36.7 ??C (98.1 ??F) 10/03/2023 10:07 AM E DT Respiratory Rate 18 10/03/2023 10:07 AM EDT Oxygen Saturation 98% 10/03/2023 10:07 AM EDT Inhaled Oxygen Concentration - - Weight 99.8 kg (220 lb) 10/03/2023 10:07 AM EDT Height 165.1 cm (5' 5) 10/03/2023 10:07 AM EDT Body Mass Index 36.61 10/03/2023 10:07 AM EDT documented in this encounter Discharge Instructions * Discharge Instructions* Sonam Zavala, RN - 10/03/2023 11:07 AM EDT Upper GI Endoscopy: What to Expect at Home Your Recovery You will be able to go home after your doctor or nurse checks to make sure you are not having any problems. You may have to stay overnight if you had treatment during the test. You may have a sore throat fora day or two after the test. This care sheet gives you a general idea about what to expect after the test. How can you care for yourself at home? Activity Rest when you feel tired. You can do your normal activities when it feels okay to do so. Diet Follow your doctor's directions for eating. Unless your doctor has told you not to, drink plenty of fluids. This helps to replace the fluids that were lost during the prep. Do not drink alcohol. Medicines Your doctor will tell you if and when you can restart your medicines. He or she will also give you instructions about taking any new medicines. If you take blood thinners, such as warfarin (Coumadin), clopidogrel (Plavix), or aspirin, be sure to talk to your doctor. He or she will tell you if and when to start taking those medicines again. Make sure that you understand exactly what your doctor wants you to do. If polyps were removed or a biopsy was done during the test, your doctor may tell you not to take aspirin or other anti-inflammatory medicines for a few days. These include ibuprofen (Advil, Motrin) and naproxen (Aleve). If you have a sore throat the day after the procedure, use an ohjm-gut-shzfnuw spray to numb your throat. Sucking on throat lozenges and gargling with warm salt water may also help relieve your symptoms. Other instructions For your safety, do not drive or operate machinery until the medicine wears off and you can think clearly. Your doctor may tell you not to drive or operate machinery until the day after your test. Do not sign legal documents or make major decisions until the medicine wears off and you can think clearly. The anesthesia can make it hard for you to fully understand what you are agreeing to. Additional Information for Sedation Patients For patients who received sedation: You may have received medications before and/or during your procedure which effects your judgement and reaction time. Do not drive, operate machinery, drink alcoholic beverages or make important decisions for 24 hours. Be careful on stairs as you may be unsteady on your feet. You may eat a regular diet as tolerated. Do not smoke if you are alone. IV site: Slight redness or tenderness is normal, you can use a warm compress if you would like. If tenderness and/or redness increase or if foul drainage occurs, please contact your Doctor. Please call [phone] before 8pm Mon-Fri with problems, questions or concerns. If you call after 8pm or on weekends, call the Hospital at [phone] and ask to speak to the Supervisor [employer] global position system technician and the liner machine operator will contact that person for you. When should you call for help? Call [phone] anytime you think you may need emergency care. For example, call if: You passed out (lost consciousness). You pass maroon or bloody stools. You have trouble breathing. Call your doctor now or seek immediate medical care if: You have pain that does not get better after you take pain medicine. You are sick to your stomach or cannot drink fluids. You have new or worse belly pain. You have blood in your stools. You have a fever. You cannot pass stools or gas. Watch closely for changes in your health, and be sure to contact your doctor if you have any problems. Where can you learn more? [facility] View your After Visit Summary and more online at [email or web address] If you would like to provide feedback about your hospital experience, please call the Office of Patient and Family Relations at . If you have received this After Visit Summary in error, please immediately return it in person to the department, or notify the [facility] Privacy Office by calling toll free at between the hours of 8AM and 5PM to arrange for our retrieval of the documents at no cost to you. Content Version: 12.2 ?? 6195-2930 [employer]. Care instructions adapted under license by [facility]. If you have questions about a medical condition or this instruction, always ask your healthcare professional. [employer] disclaims any warranty or liability for your use of this information.Upper GI Endoscopy: What to Expect at Home Your Recovery You will be able to go home after your doctor or nurse checks to make sure you are not having any problems. You may have to stay overnight if you had treatment during the test. You may have a sore throat fora day or two after the test. This care sheet gives you a general idea about what to expect after the test. How can you care for yourself at home? Activity Rest when you feel tired. You can do your normal activities when it feels okay to do so. Diet Follow your doctor's directions for eating. Unless your doctor has told you not to, drink plenty of fluids. This helps to replace the fluids that were lost during the prep. Do not drink alcohol. Medicines Your doctor will tell you if and when you can restart your medicines. He or she will also give you instructions about taking any new medicines. If you take blood thinners, such as warfarin (Coumadin), clopidogrel (Plavix), or aspirin, be sure to talk to your doctor. He or she will tell you if and when to start taking those medicines again. Make sure that you understand exactly what your doctor wants you to do. If polyps were removed or a biopsy was done during the test, your doctor may tell you not to take aspirin or other anti-inflammatory medicines for a few days. These include ibuprofen (Advil, Motrin) and naproxen (Aleve). If you have a sore throat the day after the procedure, use an bhvg-wot-wxqgzny spray to numb your throat. Sucking on throat lozenges and gargling with warm salt water may also help relieve your symptoms. Other instructions For your safety, do not drive or operate machinery until the medicine wears off and you can think clearly. Your doctor may tell you not to drive or operate machinery until the day after your test. Do not sign legal documents or make major decisions until the medicine wears off and you can think clearly. The anesthesia can make it hard for you to fully understand what you are agreeing to. Additional Information for Sedation Patients For patients who received sedation: You may have received medications before and/or during your procedure which effects your judgement and reaction time. Do not drive, operate machinery, drink alcoholic beverages or make important decisions for 24 hours. Be careful on stairs as you may be unsteady on your feet. You may eat a regular diet as tolerated. Do not smoke if you are alone. IV site: Slight redness or tenderness is normal, you can use a warm compress if you would like. If tenderness and/or redness increase or if foul drainage occurs, please contact your Doctor. Please call [phone] before 8pm Mon-Fri with problems, questions or concerns. If you call after 8pm or on weekends, call the Hospital at [phone] and ask to speak to the Supervisor [employer] global position system technician and the liner machine operator will contact that person for you. When should you call for help? Call [phone] anytime you think you may need emergency care. For example, call if: You passed out (lost consciousness). You pass maroon or bloody stools. You have trouble breathing. Call your doctor now or seek immediate medical care if: You have pain that does not get better after you take pain medicine. You are sick to your stomach or cannot drink fluids. You have new or worse belly pain. You have blood in your stools. You have a fever. You cannot pass stools or gas. Watch closely for changes in your health, and be sure to contact your doctor if you have any problems. Where can you learn more? [facility] View your After Visit Summary and more online at [email or web address] If you would like to provide feedback about your hospital experience, please call the Office of Patient and Family Relations at . If you have received this After Visit Summary in error, please immediately return it in person to the department, or notify the - Privacy Office by calling toll free at between the hours of 8AM and 5PM to arrange for our retrieval of the documents at no cost to you. Content Version: 12.2 ?? 8250-5789 [employer]. Care instructions adapted under license by [facility]. If you have questions about a medical condition or this instruction, always ask your healthcare professional. [employer] disclaims any warranty or liability for your use of this information. documented in this encounter Medications at Time of Discharge Medication Sig Dispensed Refills Start Date End Date semaglutide (Ozempic) 1 mg/dose (4 mg/3 mL) Pen InjectorIndications:t ype 2 diabetes mellitus Inject 1 mg subcutaneously once a week. Indications: type 2 diabetes mellitus 9 mL 3 09/17/2023 isosorbide mononitrate CR (Imdur) 30 mg ER 24 hr tabletIndications:NST PAULETTE (non-ST elevated myocardial infarction) Take 2 tablets by mouth daily. 180 tablet 3 08/25/2023 liothyronine (Cytomel) 5 mcg tablet Take 1 tablet by mouth daily. 90 tablet 3 08/04/2023 metoprolol succinate XL (Toprol-XL) 50 mg ER 24 hr tabletIndications:NST PAULETTE (non-ST elevated myocardial infarction) Take 1 tablet by mouth daily. 90 tablet 3 08/04/2023 dexlansoprazole (Dexilant) [address] capsule Take 1 capsule by mouth daily. 90 capsule 1 07/07/2023 celecoxib (CeleBREX) 100 mg capsule Take 100 mg by mouth 2 times daily. nitroGLYcerin (Nitrostat) 0.4 mg Tablet, Sublingual Place 0.4 mg under the tongue every 5 minutes as needed for Chest pain. aspirin 81 mg Tablet, Chewable Take 81 mg by mouth daily. 90 tablet 02/10/2020 acetaminophen (TYLENOL) 500 mg Tablet Take 1,000 mg by mouth as needed for Pain. amoxicillin (AMOXIL) 500 mg TabletIndications:Lef t knee pain, unspecified chronicity Take 4 tablets by mouth 1 hour prior to procedure 12 tablet 2 03/26/2018 clonazePAM (KLONOPIN) 0.5 mg Tablet Take 0.5 mg by mouth daily. 2 02/26/2018 terbinafine (LamISIL) 250 mg tablet Take 1 tablet by mouth daily. 11/03/2023 predniSONE (Deltasone) 10 mg tablet Take 4 tablets by mouth x 4 days, take 3 tablets by mouth x 3 days, take 2 tablets by mouth x 2 days, take 1 tablet by mouth x 1 day 30 tablet 07/21/2023 11/03/2023 prucalopride (Motegrity) 1 mg tabletIndications:Gas troparesis Take 2 tablets by mouth daily. 180 tablet 3 09/23/2022 11/17/2023 losartan (Cozaar) 25 mg tabletIndications:NST PAULETTE (non-ST elevated myocardial infarction) Take 0.5 tablets by mouth daily. 45 tablet 3 09/04/2022 11/03/2023 Repatha Pushtronex 420 mg/3.5 mL wearable injectorIndications:H yperlipidemia, unspecified hyperlipidemia type 3.5 mLs by subcutaneous (via wearable injector) route every 30 days. 3.5 mL 11 09/04/2022 11/07/2023 BD ULTRA-FINE ORIG PEN NEEDLE 29 gauge x 1/2 Needle INJECT INSULIN SUBCUTANEOUSLY DIRECTED. 3 10/17/2017 11/03/2023 documented as of this encounter H&P Notes * Nimesh Alicia MD - 10/03/2023 10:41 AM EDT Procedure: \EGD Indication: Villegas's surveillance History of Present Illness: Danielle Mills is a 63 y.o. 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 Carpal tunnel syndrome G56.00 Cystocele [id number] Depression, anxiety, insomnia, PTSD F32.A Edema R60.9 Pain in right hip M25.551 Nicotine dependence, uncomplicated F17.200 Onychomycosis of toenail B35.1 Osteoarthritis of hip M16.9 Spinal stenosis of cervical region M48.02 Chronic low back pain M54.50, G89.29 BEN (obstructive sleep apnea) G47.33 HAMMONDS (nonalcoholic steatohepatitis) K75.81 Adult BMI 45.0-49.9 kg/sq m Z68.42 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, 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 with normal TSH 1.75-2.25) E06.3 Non-ST elevation myocardial infarction (NSTEMI) I21.4 NSTEMI (non-ST elevated myocardial infarction) I21.4 Constipation K59.00 Hepatitis K75.9 Radiculopathy of lumbar region M54.16 Medications: Reviewed in EDH Allergies Allergen Reactions Atorvastatin Other (See Comments) Constipation Bupropion Increased depression Citalopram GI upset Codeine Itching and Other (See Comments) Unable to sleep too Cortisone Sweating and headache- cortisone shots Duloxetine Increases blood sugar Escitalopram GI upset Exenatide Nausea And Vomiting Ezetimibe-Simvastatin Constipation Hydrocodone-Acetaminophen Itching Indomethacin Itching Liraglutide Metformin Itching Oxycodone-Acetaminophen Itching Prednisone Nausea Only Rosuvastatin Other (See Comments) Sertraline Other (See Comments) Tape, Permeable Adhesive Other (See Comments) Rash, peels off the skin- Can use paper tape Social History/Family History: Reviewed in EDH. No changes Exam: Patient Vitals for the past 24 hrs: Temp Pulse Resp BP SpO2 O2 Device 10/03/23 1007 36.7 ??C (98.1 ??F) 68 18 109/76 98 % RA Axox3, nad Anicteric, MMM CTAB RRR, no m/r/g abd soft nt nd +bs Assessment and Plan: Proceed with EGD: ASA Grade: ASA 3 - Patient with moderate systemic disease with functional limitations Mallampati score:III (soft palate, base of uvula visible) Sedation plan: MAC Risks and benefits of the procedure were discussed with the patient. Consent has been signed. Nimesh Alicia MD documented in this encounter Plan of Treatment Not on file documented as of this encounter Procedures Procedure Name Priority Date/Time Associated Diagnosis Comments SPECIMEN TO PATHOLOGY Routine 10/03/2023 11:02 AM EDT SURGICAL PATHOLOGY REPORT Routine 10/03/2023 10:58 AM EDT UPPER GI ENDOSCOPY Routine 10/03/2023 10 :50 AM EDT Upper Gi Endoscopy, Biopsy (10819) 10/03/2023 10:48 AM EDT Gastroparesis POCT GLUCOSE Routine 10/03/2023 10:27 AM EDT documented in this encounter Results * Specimen to Pathology (10/03/2023 11:02 AM EDT) AP Specimen 10/03/2023 11:0 2 AM EDT 10/03/2023 11:03 AM EDT Narrative [facility] - 10/03/2023 11:03 AM EDT Specimen requisition ordered. ??Separate Pathology report to follow Nimesh Alicia MD PATHOLOGY/CYTOLOGY O RDERABLES [facility] [place] [address] * Surgical Pathology Report (10/03/2023 10:58 AM EDT) Surgical Pathology Report [id number] ? Location: 4T; EA10; A The signing pathologist has (i) examined the relevant preparation(s) for the specimen(s) and (ii) rendered or confirmed the diagnosis(es). . ?Surgical Pathology DIAGNOSIS A - GE junction,biopsy (Multiple): - ??Squamous esophageal and cardiac mucosa within normal limits. - ??No goblet cell metaplasia is seen. Electronically signed by: ?Desirae ABDUL, Cleopatra Andersen Verified: ??10/14/2023 15:24 ??Pathologist Performed at: ??-[facility] Dept. of Pathology, [place] [address] Instructor Technical Training: Cleopatra Merrill MD, AP, ??CLIA Certificate: [id number] SPECIMEN(S) SUBMITTED A - GE junction bx's. r/o ?? Villegas's, biopsy (Multiple) CLINICAL INFORMATION 63-year-old with? ??Villegas's SPECIMEN PROCESSING A - Labeled/Fixativ e: GE junction BX, rule out Villegas's, formalin. Quantity/Size: Four, averaging 0.4 cm. Tissue Description: Soft, pink-red tissues. Sections/Proces sing: Submitted in toto ??in 1 cassette labeled A1. ??sns [facility] 10/03/2023 10:5 8 AM EDT Nimesh Alicia MD PATHOLOGY/CYTOLOGY O RDERABLES [facility] [place] [address] * UPPER GI ENDOSCOPY (10/03/2023 10:50 AM EDT) UPPER GI ENDOSCOPY [facility] ___ Procedure Date: 10/03/2023 10:50 AM ? Patient Name: Danielle Mills ? Date of : 1960 ? Age: 63 ? Order #: [id number] ? Instrument Name: [id number] ? ___ Procedure: ? Upper GI endoscopy Indications: ? Gastro-esophageal reflux disease, ? Follow-up of Villegas's esophagus Providers: ? Carlos Christian ? Evelyne, SHAR, Carlos Jj MD: ?Kaylee Jaquez Medicines: ? Propofol per Anesthesia Complications: ? No immediate complications. ___ Procedure: ? Pre-Anesthesia Assessment: ? - Prior to the procedure, a History ? and Physical was performed, and ? patient medications and allergies ? were reviewed. The patient is ? competent. The risks and benefits ? of the procedure and the sedation ? options and risks were discussed ? with the patient. All questions ? were answered and informed consent ? was obtained. Patient ? identification and proposed ? procedure were verified by the ? physician in the pre-procedure ? area. Mental Status Examination: ? alert and oriented. Airway ? Examination: normal oropharyngeal ? airway and neck mobility. ? Respiratory Examination: clear to ? auscultation. CV Examination: ? normal. Prophylactic Antibiotics: ? The patient does not require ? prophylactic antibiotics. Prior ? Anticoagulants: The patient has ? taken no anticoagulant or ? antiplatelet agents. ASA Grade ? Assessment: III - A patient with ? severe systemic disease. After ? reviewing the risks and benefits, ? the patient was deemed in ? satisfactory condition to undergo ? the procedure. The anesthesia plan ? was to use monitored anesthesia ? care (MAC). Immediately prior to ? administration of medications, the ? patient was re-assessed for ? adequacy to receive sedatives. The ? heart rate, respiratory rate, ? oxygen saturations, blood pressure, ? adequacy of pulmonary ventilation, ? and response to care were monitored ? throughout the procedure. The ? physical status of the patient was ? re-assessed after the procedure. ? The procedure, indications, ? benefits, risks and alternatives ? were explained to the patient. ? Specifically discussed were ? potential complications including, ? but not limited to, bleeding, ? perforation, infection, missing a ? cancer, and adverse medication ? reactions. The Endoscope was ? introduced through the mouth, and ? advanced to the second part of ? duodenum The patient tolerated the ? procedure well. ? Findings: ? The examined esophagus was normal. Multiple biopsies ? were obtained at the gastroesophageal junction with ? cold forceps for histology. ? Esophagogastric landmarks were identified: the Z-line ? was found at 40 cm and the gastroesophageal junction ? was found at 40 cm from the incisors. ? The entire examined stomach was normal. ? The examined duodenum was normal. ? Moderate Sedation: ? Not applicable - See Anesthesia documentation Impression: ?- Normal esophagus. ? - Normal stomach. ? - Normal examined duodenum. ? - Multiple biopsies were obtained ? at the gastroesophageal junction. Recommendation: ?- Discharge patient to home. ? - Resume previous diet. ? - Await pathology results. ? - Use a proton pump inhibitor PO ? daily. ? - Follow an antireflux regimen. ? - Repeat upper endoscopy for ? surveillance based on pathology ? results. ? Procedure Code(s): ? --- Professional --- ? 32621, Esophagogastroduode noscopy, ? flexible, transoral; with biopsy, ? single or multiple Diagnosis Code(s): ? --- Professional --- ? K21.9, Gastro-esophageal reflux ? disease without esophagitis ? K22.70, Villegas's esophagus without ? dysplasia ? --- Technical --- ? K21.9, Gastro-esophageal reflux ? disease without esophagitis ? K22.70, Villegas's esophagus without ? dysplasia CPT copyright 2021 [employer]. All rights reserved. The codes documented in this report are preliminary and upon panel assembler review may be revised to meet current compliance requirements. Attending Participation: ? I personally performed the entire procedure. ? Nimesh Alicia, 10/03/2023 11:02:52 AM Number of Addenda: 0 Note Initiated On: 10/03/2023 10:50 AM [employer] 10/03/2023 10:5 0 AM EDT Unknown GENERAL SURGICAL ORD ERABLES Performing Organization Address [facility] Co de Phone Number [employer] * POCT Glucose (10/03/2023 10:27 AM EDT) POC Glucose 114 65 - 199 mg/dL [facility] Comment: Supplemental ranges: <140 mg/dL before meals <180 mg/dL all other times of the day Blood 10/03/2023 10:2 7 AM EDT 10/03/2023 10:27 AM EDT Nimesh Alicia MD POINT OF CARE TEST O RDERABLES Performing Organization Address [facility] de Phone Number [facility] [place] [address] documented in this encounter Visit Diagnoses Diagnosis Gastroparesis documented in this encounter Administered Medications Inactive Administered Medications - up to 3 most recent administrations Medication Order MAR Action Action Date Dose Rate Site ipratropium-albuteroL (Duoneb) 0.5 mg-3 mg(2.5 mg base)/3 mL nebulizer solution 3 mL 3 mL, Nebulization, ONCE, 1 dose, On Fri10/03/23 at 1200, STAT Given 10/03/2023 11:32 AM EDT 3 mLs lactated ringers infusion 100 mL/hr, Intravenous, CONTINUOUS, Starting on Fri10/03/23 at 1030, Until Fri10/03/23 at 1200, Endoscopy (Intra-Procedure) Restarted 10/03/2023 10:50 AM EDT New Bag 10/03/2023 10:27 AM EDT 100 mL/hr 100 mL/hr documented in this encounter Active and Recently Administered Medications Times are shown in EDT. Scheduled Medication Order 10/01/2023 10/02/2023 10/03/2023 ipratropium-albuteroL (Duoneb) 0.5 mg-3 mg(2.5 mg base)/3 mL nebulizer solution 3 mL (COMPLETED) 3 mL, Nebulization, ONCE, 1 dose, On Fri10/03/23 at 1200, STAT 1132 (Given - Provid er: Sonam Zavala RN) Continuous Medication Order 10/01/2023 10/02/2023 10/03/2023 lactated ringers infusion (CANCELED) 100 mL/hr, Intravenous, CONTINUOUS, Starting on Fri10/03/23 at 1030, Until Fri10/03/23 at 1200, Endoscopy (Intra-Procedure) 1027 (New Bag - Prov ider: Malgorzata Lopez RN)1049 (Paused - Provider: Ryan Gates CRNA - Comment: Switch to gravity)1050 (Restarted - Provider: Ryan Gates CRNA)1104 (Stopped - Provider: Ryan Gates CRNA) documented in this encounter Care Teams Telesales Manager Relationship Specialty Start Date End Date Kaylee Jaquez PA [address] [address] PCP - General Family Medicine 01/18/22 documented as of this encounter
--- OUTSIDE RECORDS SUMMARY | 2023-11-25 15:30 | XMS_ITS | Encounter Summary ---
Author Organization [facility] [place] [address] Care Team Providers Care Zipper Setter Chainstitch Name Role Phone Kaylee Jaquez Primary Care Provider Encounter Details Date Type Department Care Team (Late st Contact Info) Description 09/05/2023 Interpretation [place] [id number] Unknown None Social History Tobacco Use Types [...] PM EDT) 10/28/2023 4:11 PM EDT Narrative RAD - 10/28/2023 4:11 PM EDT This exam is auto-finalizing. It's purpose is for storage only. Unknown IMG FILM LIBRARY ORD ERABLES [facility] [place], [place] documented in this encounter Visit Diagnoses Not on filedocumented in this encounter Care Teams Zipper Setter Chainstitch Relationship Specialty Start Date End Date Kaylee Jaquez PA [address] [place] [address] PCP - General Family Medicine 01/18/22 documented as of this encounter
--- OUTSIDE RECORDS SUMMARY | 2023-11-25 15:30 | XMS_ITS | Encounter Summary ---
Author Organization [facility] Address [facility] [place] [address] Care Team Providers Care Senior Production Manager Name Role Phone Kaylee Jauqez Primary Care Provider [phone] Reason for Visit * Reason Comments Medication Refill Encounter Details Date Type Department Care Team (Late st Contact Info) Description 08/25/2023 Refill Cardiology at [address] [phone] Lc Garcia MD [facility] [place] [address] Medication Refill Social History Tobacco Use Types Packs/Day Years [...] on file documented as of this encounter Miscellaneous Notes * Telephone Encounter - Minerva Mejia RN - 08/25/2023 9:40 AM EDT It was previously confirmed that the patient is taking 60mg of this medication - Imdur per day. See [employer] message chain from 07/28/23. documented in this encounter Plan of Treatment Not on file documented as of this encounter Visit Diagnoses Diagnosis NSTEMI (non-ST elevated myocardial infarction) Acute myocardial infarction, subendocardial infarction, episode of care unspecified documented in this encounter Care Teams Senior Production Manager Relationship Specialty Start Date End Date Kaylee Jaquez PA [address] [place] [id number] PCP - General Family Medicine 01/18/22 documented as of this encounter
--- OUTSIDE RECORDS SUMMARY | 2023-11-25 15:30 | XMS_ITS | Encounter Summary ---
Author Organization [facility] Address [address] [place] [address] Care Team Providers Care Pattern Developer Name Role Phone Kenia Hernandez VETERANS' COORDINATOR Primary Care Provider [phone] Encounter Details Date Type Department Care Team (Latest Contact Info) Description 09/08/2017 10:09 EDT - 09/08/2017 23:59 EDT Hospital Encounter [address] [address] Unknown, Provider, Discharge Disposition: Home or Self Care Social History Tobacco Use Types Packs/Day Years Used Date Smoking Tobacco: Never Assessed Sex and Gender Information Value Date Recorded Sex Assigned at Not on file Gender Identity Not on file Sexual Orientation Not on file documented as of this encounter Discharge Disposition Disposition Code Departure Means Destination Home or Self [facility] documented in this encounter Plan of Treatment Not on file documented as of this encounter Visit Diagnoses Not on filedocumented in this encounter Care Teams Pattern Developer Relationship Specialty Start Date End Date Kenia Hernandez, VETERANS' COORDINATOR [address] [place] [address] PCP - General 06/04/16 11/29/20 documented as of this encounter
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
--- OUTSIDE RECORDS SUMMARY | 2023-11-25 15:30 | XMS_ITS | Encounter Summary ---
Author Organization [facility] Address [address] [place] [address] Care Team Providers Care Financial Compliance Manager Name Role Phone Francy Lowe SENIOR DESIGNER/ART DIRECTOR Primary Care Provider [phone] Encounter Details Date Type Department Care Team (Late st Contact Info) Description 03/07/2021 Lab Requisition [facility] Pathology & Laboratory Medicine - [address] [address] Outr Resulting Lab, Provider Social History Tobacco [...] Procedure Name Priority Date/Time Associated Diagnosis Comments T3, TOTAL Routine 03/07/2021 14:31 EDT documented in this encounter Results * (ABNORMAL) T3, TOTAL (03/07/2021 14:31 EDT) T3, Total 171(H) 97 - 169 ng/dL 03/07/2021 21:44 EDT [facility] Blood VENOUS BLOOD / Unknown 03/07/2021 14:31 EDT 03/07/2021 20:59 EDT Provider Outr Resulting Lab CHEMISTRY & BLOOD GAS ORDERABLES [facility] [address] [place] [address] documented in this encounter Visit Diagnoses Not on filedocumented in this encounter Care Teams Financial Compliance Manager Relationship Specialty Start Date End Date Francy Lowe NP PCP - General 11/30/20 documented as of this encounter
--- OUTSIDE RECORDS SUMMARY | 2023-11-25 15:30 | XMS_ITS | Encounter Summary ---
Author Organization [facility] Address [address] [place] [address] Care Team Providers Care Amusement Centre Manager Name Role Phone Francy Lowe SHEET METAL INSULATOR Primary Care Provider [phone] Encounter Details Date Type Department Care Team (Late st Contact Info) Description 01/30/2023 Lab Requisition [facility] Pathology & Laboratory Medicine - [address] [phone] Outr Resulting Lab, Provider Social History Tobacco [...] Date/Time Associated Diagnosis Comments T3, TOTAL Routine 01/29/2023 9:35 EDT documented in this encounter Results * T3, TOTAL (01/29/2023 9:35 EDT) T3, Total 164 97 - 169 ng/dL 01/30/2023 19:[address] [facility] Blood VENOUS BLOOD / Unknown 01/29/2023 9:35 EDT 01/30/2023 18:02 EDT Provider Outr Resulting Lab CHEMISTRY & BLOOD GAS ORDERABLES [facility] [address] [place] [address] documented in this encounter Visit Diagnoses Not on filedocumented in this encounter Care Teams Amusement Centre Manager Relationship Specialty Start Date End Date Francy Lowe, VIRY PCP - General 11/30/20 documented as of this encounter
--- OUTSIDE RECORDS SUMMARY | 2023-11-25 15:30 | XMS_ITS | Encounter Summary ---
Author Organization [facility] Address [address] [place] [address] Care Team Providers Care Vending Machine Collector Name Role Phone Francy Lowe STAKE DRIVER Primary Care Provider [phone] Encounter Details Date Type Department Care Team (Late st Contact Info) Description 01/25/2022 Lab Requisition [facility] Pathology & Laboratory Medicine - [address] [address] Outr Resulting Lab, Provider Social History Tobacco [...] Date/Time Associated Diagnosis Comments T3, TOTAL Routine 01/24/2022 12:00 EDT documented in this encounter Results * T3, TOTAL (01/24/2022 12:00 EDT) T3, Total 165 97 - 169 ng/dL 01/25/2022 19:57 EDT [facility] Blood VENOUS BLOOD / Unknown 01/24/2022 12:00 EDT 01/25/2022 19:01 EDT Provider Outr Resulting Lab CHEMISTRY & BLOOD GAS ORDERABLES [facility] [address] [place] [address] documented in this encounter Visit Diagnoses Not on filedocumented in this encounter Care Teams Vending Machine Collector Relationship Specialty Start Date End Date Francy Lowe, VIRY PCP - General 11/30/20 documented as of this encounter
--- OUTSIDE RECORDS SUMMARY | 2023-11-25 15:30 | XMS_ITS | Encounter Summary ---
Author Organization [facility] [place] [address] Care Team Providers Care Administrative Support Specialist Name Role Phone Kaylee Jaquez Primary Care Provider [phone] Reason for Visit * Auth/Cert (Routine) Specialty Diagnoses / Procedures Referred By Contac t Referred To Contact Diagnoses Gastroparesis villegas's surveillance Procedures PRO UPPER GI ENDOSCOPY, DIAGNOSTIC PRO UPPER GI ENDOSCOPY, BIOPSY PRO UP GI ENDOSCOPY, REMV TUMOR, SNARE PRO ANES, UGI ENDOSCOPY NOS EGD, UPPER GI ENDOSCOPY (WRVU 2.09) Nimesh Alicia MD [facility] [place] [address] [facility] Referral ID Status Reason Start Date Expiration Date Visits Re quested Visits Authorized [id number] 1 1 Encounter Details Date Type Department Care Team (Late st Contact Info) Description 10/03/2023 10:47 AM EDT Anesthesia [place] [address] Lilibeth Freed MD [facility] [place] [address] Jason Hopson MD [facility] [place] [address] Anesthesia Record Procedure Summary Procedure Name Responsible Anesthesiologist Anesthesia Start Time Anesthesia Stop Time EGD WITH BIOPSY (WRVU 2.39) (Trunk) Lilibeth Freed MD 10/03/23 1047 10/03/23 1111 Events Date Time Event Comment 10/03/2023 1040 1047 AN Verify 1047 Start 1047 An Start Data 1051 An Induction 1052 Anesthesia Ready 1104 an stop data 1111 Recovery or ICU Handoff Della ent care was transferred to the destination unit staff after review of the patient's medical history, current anesthetic/surgical status and plan, according to the Provider Handoff Checklist. 1111 Stop Meds Name Total IV Lidocaine 100 mg Propofol 100 mg Propofol INF 66.69 mg lactated ringers infusion 400 mL * Agents Name O2 Air N2O O2 Auxiliary Flowmeter 1 * Blood No blood administrations on file. Lines, Drains, and Airways Type Details Placement Removal PIV 10/03/23; 1027; fllp-von-lupnmd catheter system; 20 gauge; median cubital vein (antecubital fossa), right; Anatomical Landmarks; Malgorzata MYLES; 10/03/23; 1200 10/03/23 1027 by Malgorzata Lopez RN 10/03/23 1200 by Sonam Zavala RN documented in this encounter Social History Tobacco Use Types Packs/Day Years [...] on file documented as of this encounter OR Notes * Anesthesia Postprocedure Evaluation - Lilibeth Freed MD - 10/03/2023 12:23 PM EDT Department of Anesthesiology Post-procedure Note Patient: Danielle Mills Procedure Summary Date: 10/03/23 Room / Location: [facility] ENDO 3 / [facility] Anesthesia Start: 1047 Anesthesia Stop: 1111 Procedure: EGD WITH BIOPSY (WRVU 2.39) (Trunk) Diagnosis: Gastroparesis (villegas's surveillance) Surgeons: Nimesh Alicia MD Responsible Provider: Lilibeth Freed MD Anesthesia Type: MAC ASA Status: 3 All Anesthesia Providers: Anesthesiologist: Lilibeth Freed MD INFORMATION CODER: Ryan Gates CRNA Student Support Advisor: Jason Hopson MD Vitals Value Taken Time BP 117/68 10/03/23 1150 Temp Pulse Resp 16 10/03/23 1150 SpO2 99 % 10/03/23 1155 Pain Level 0 10/03/23 1150 Vitals shown include unfiled device data. Patient Location: PACU/[facility] Level of Consciousness: Awake and Alert Pain Management: Satisfactory Analgesia PONV: None Cardiovascular Status: At Baseline and Hemodynamically Stable Respiratory Status: At Baseline and Room Air Postoperative Fluid Status: Intravascular EUvolemia Possible Anesthetic Complications: NONE apparent at time of evaluation Final Primary Anesthesia Type: MAC (The anesthetic type performed was the same as planned.) Comments: * Anesthesia Preprocedure Evaluation - Jason Hopson MD - 10/03/2023 8:06 AM EDT Pre-Anesthesia Evaluation for: Danielle Mills a 63 y.o. female. Procedure(s): EGD, UPPER GI ENDOSCOPY (WRVU 2.09) Patient Active Problem List Diagnosis Date Noted ??? 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 Radiculopathy of lumbar region 01/23/2023 ??? Hepatitis ??? Constipation 08/29/2020 ??? Non-ST elevation myocardial infarction (NSTEMI) 02/07/2020 ??? NSTEMI (non-ST elevated myocardial infarction) 02/07/2020 ??? BEN (obstructive sleep apnea) 10/20/2019 ??? HAMMONDS (nonalcoholic steatohepatitis) 10/20/2019 ??? Adult BMI 45.0-49.9 kg/sq m 10/20/2019 ??? Chronic low back pain 10/12/2019 ??? Benign lipomatous neoplasm 03/18/2018 ??? Cystocele 03/18/2018 ??? Depression, anxiety, insomnia, PTSD 03/18/2018 ??? Edema 03/18/2018 ??? Nicotine dependence, uncomplicated 03/18/2018 ??? Onychomycosis of toenail 03/18/2018 ??? Osteoarthritis of hip 03/18/2018 ??? Spinal stenosis of cervical region 03/18/2018 ??? Carpal tunnel syndrome 08/11/2014 ??? Gastroesophageal reflux disease with hiatal hernia 12/14/2010 ??? Type 2 diabetes mellitus ??? HLD (hyperlipidemia) ??? Pain in right hip 02/01/2010 Past Medical History: Diagnosis Date ??? Arthritis ??? Depression ??? DM hyperosmolarity type II ??? GERD (gastroesophageal reflux disease) ??? Hepatitis ??? Hiatal hernia ??? Hyperlipidemia ??? IBS (irritable bowel syndrome) ??? PTSD (post-traumatic stress disorder) ??? Tobacco use Past Surgical History: Procedure Laterality Date ??? ABDOMEN SURGERY ??? ANUS SURGERY 2004 Anal fissure repair Procedure Date: 2004 ??? CARPAL TUNNEL RELEASE Bilateral ~2005 Bilateral carpal tunnel release Procedure Date: Unknown ??? CHOLECYSTECTOMY ??? ELBOW SURGERY 01/04/2015 Left lateral epi rel ??? HIP SURGERY Right Right hip spur Procedure Date: Unknown, Dr. Benitez ??? HYSTERECTOMY, TOTAL ABDOMINAL 1994 Total abdominal hysterectomy Procedure Date: 1994 ??? JOINT REPLACEMENT ??? ORTHOPEDIC SURGERY ??? PRO COLONOSCOPY, REMV LESN, SNARE N/A 08/01/2021 COLONOSCOPY, POLYPECTOMY, REMOVAL LESION BY SNARE (WRVU 4.67) performed by Nimesh Alicia MD at [facility] ENDOSCOPY ??? PRO INJECTION DX/THER SBST INTRLMNR LMBR/SAC W/IMG GDN Midline 01/23/2023 INJECTION, EPIDURAL, LUMBAR OR SACRAL (CAUDAL), WITH IMAGING GUIDANCE (WRVU 1.8) performed by Alvarez Monteiro MD at [facility] PA[facility] ??? PRO INJECTION DX/THER SBST INTRLMNR LMBR/SAC W/IMG GDN Midline 01/23/2023 Lumbar or Sacral Epidural Steroid Inj Sacral (Caudal) (38716) performed by Alvarez Monteiro MD at [facility] ??? PRO UPPER GI ENDOSCOPY, BIOPSY N/A 11/19/2018 EGD WITH BIOPSY (WRVU 2.49) performed by Nimesh Alicia MD at [facility] END[facility]COPY ??? RECTOCELE REPAIR 2014 Dr. Boo @ [facility] ??? SHOULDER SURGERY Left 06/05/2017 L shoulder AC joint resection and bicep debridement, Dr. Adrien Pedro ??? TOTAL KNEE ARTHROPLASTY 09/2009 Right total knee replacement Procedure Date: September 2009 Social History Tobacco Use ??? Smoking status: Every Day Current packs/day: 0.50 Average packs/day: 0.5 packs/day for 45.0 years (22.5 ttl pk-yrs) Types: Cigarettes ??? Smokeless tobacco: Never ??? Tobacco comments: Quit but family member and she started smoking again 08/01/21 Substance Use Topics ??? Alcohol use: Not Currently Comment: ocassional Social History Substance and Sexual Activity Drug Use Not on file Comment: no drugs since 1990 no IV drug use Allergies Allergen Reactions ??? Atorvastatin Other (See Comments) Constipation ??? Bupropion Increased depression ??? Citalopram GI upset ??? Codeine Itching and Other (See Comments) Unable to sleep too ??? Cortisone Sweating and headache- cortisone shots ??? Duloxetine Increases blood sugar ??? Escitalopram GI upset ??? Exenatide Nausea And Vomiting ??? Ezetimibe-Simvastatin Constipation ??? Hydrocodone-Acetaminophen Itching ??? Indomethacin Itching ??? Liraglutide ??? Metformin Itching ??? Oxycodone-Acetaminophen Itching ??? Prednisone Nausea Only ??? Rosuvastatin Other (See Comments) ??? Sertraline Other (See Comments) ??? Tape, Permeable Adhesive Other (See Comments) Rash, peels off the skin- Can use paper tape Medications: MAR and/or home medications have been reviewed. Physical Exam: Preprocedure Vitals Current as of 10/03/23 0806 No BP, pulse, respiration, SpO2, or temperature recorded. Height: Weight: BMI: IBW: Airway Assessment: Mallampati: II TM distance: >3 FB Neck ROM: full Cardiovascular Assessment: system normal Pulmonary Assessment: unlabored breathing Dental Assessment: - normal exam Misc Assessment: IV access: Peripheral line Last Filed Perioperative Cognitive Screening None Anesthesia Plan: ASA 3 MAC, with a(n) intravenous induction Danielle Mills is a 63 y.o. female with villegas's surveillance, going to the OR for EGD, UPPER GIENDOSCOPY (WRVU 2.09) (Trunk) with Dr. Alicia and associates. PMH notable for: DMII, HLD, GERD with hiatal hernia, BEN, HAMMONDS, Delano's thyroiditis, current smoker, PTSD, prior NSTEMI(s/p PCI x3, takes 60mg of Imdur daily), lumbar radiculopathy, prescribed OZEMPIC Nuclear stress 07/05: No ischemia or scar, normal LV function Tolerated MAC for EGD previously Last dose of Ozempic was 3 weeks ago. GERD well controlled, able to lay flat without issues. Took adose of nitroglycerin 2 days ago for vague chest pain after sitting down. Says it was musculoskeletal pain, but improved with nitroglycerin. Denies any recent reproducible chest pain with exertion. Able to climb 2 sets of stairs and walk several blocks without needing to stop. Plan: JUN Hopson MD Student Support Advisor Region - Other Informed Consent: Anesthetic plan and risks discussed with patient. Anesthesia Screening documented in this encounter Plan of Treatment Not on file documented as of this encounter Visit Diagnoses Not on filedocumented in this encounter Administered Medications Inactive Administered Medications - up to 3 most recent administrations Medication Order MAR Action Action Date Dose Rate Site lactated ringers infusion 100 mL/hr, Intravenous, CONTINUOUS, Starting on Fri10/03/23 at 1030, Until Fri10/03/23 at 1200, Endoscopy (Intra-Procedure) Restarted 10/03/2023 10:50 AM EDT New Bag 10/03/2023 10:27 AM EDT 100 mL/hr 100 mL/hr lidocaine (pf) (Xylocaine) (20 mg/mL) 2% injection syringe Intravenous, PRN, Starting on Fri10/03/23 at 1051, Until Fri10/03/23 at 1111, Anesthesia Intra-op, Routine Given 10/03/2023 10:51 AM EDT 100 mg propofoL (Diprivan) (10 mg/mL) infusion Intravenous, CONTINUOUS PRN, Starting on Fri10/03/23 at 1051, Until Fri10/03/23 at 1111, Anesthesia Intra-op, Routine Restarted 10/03/2023 10:54 AM EDT 100 mcg/kg/min 44.46 mL/hr New Bag 10/03/2023 10:51 AM EDT 200 mcg/kg/min 88.92 mL /hr propofoL (Diprivan) 10 mg/mL bolus injection (Anesthesia) Intravenous, PRN, Starting on Fri10/03/23 at 1051, Until Fri10/03/23 at 1111, Anesthesia Intra-op Given 10/03/2023 10:52 AM EDT 50 mg Given 10/03/2023 10:51 AM EDT 50 mg documented in this encounter Care Teams Administrative Support Specialist Relationship Specialty Start Date End Date Kaylee Jaquez PA [address] [place] [id number] PCP - General Family Medicine 01/18/22 documented as of this encounter
--- OUTSIDE RECORDS SUMMARY | 2023-11-25 15:30 | XMS_ITS | Clinical Summary ---
Author Organization [facility] [place] [address] Care Team Providers Care Boilers Inspector Name Role Phone Kaylee Jaquez Primary Care Provider Allergies Active Allergy Reactions Criticality Noted Date Comments Atorvastatin Other (See Comments) 09/15/2015 Constipation Bupropion 12/09/2022 Increased depression Citalopram 12/09/2022 GI upset Codeine Itching,Other (See Comments) 09/15/2015 Unable to sleep too Cortisone 07/21/2023 Sweating and headache- cortisone shots Duloxetine 12/09/2022 Increases blood sugar Escitalopram 12/09/2022 GI upset Exenatide Nausea And Vomiting 12/09/2022 Ezetimibe-Simvastatin 12/09/2022 Constipation Hydrocodone-Acetaminoph en Itching 09/15/2015 Indomethacin Itching 09/15/2015 Liraglutide 12/09/2022 Metformin Itching 12/09/2022 Oxycodone-Acetaminophen Itching 09/15/2015 Prednisone Nausea Only 09/15/2015 Rosuvastatin Other (See Comments) 09/15/2015 Sertraline Other (See Comments) 12/09/2022 Tape, Permeable Adhesive Other (See Comments) 12/09/2022 Rash, peels off the skin- Can use paper tape Medications Medication Sig Dispensed Refills Start Date End Date Status clonazePAM (KLONOPIN) 0.5 mg Tablet Take 0.5 mg by mouth daily. 2 02/26/2018 Active amoxicillin (AMOXIL) 500 mg TabletIndications:L eft knee pain, unspecified chronicity Take 4 tablets by mouth 1 hour prior to procedure 12 tablet 2 03/26/2018 Active acetaminophen (TYLENOL) 500 mg Tablet Take 1,000 mg by mouth as needed for Pain. Active aspirin 81 mg Tablet, Chewable Take 81 mg by mouth daily. 90 tablet 02/10/2020 Active nitroGLYcerin (Nitrostat) 0.4 mg Tablet, Sublingual Place 0.4 mg under the tongue every 5 minutes as needed for Chest pain. Active celecoxib (CeleBREX) 100 mg capsule Take 100 mg by mouth 2 times daily. Active dexlansoprazole (Dexilant) [address] capsule Take 1 capsule by mouth daily. 90 capsule 1 07/07/2023 Active liothyronine (Cytomel) 5 mcg tablet Take 1 tablet by mouth daily. 90 tablet 3 08/04/2023 Active metoprolol succinate XL (Toprol-XL) 50 mg ER 24 hr tabletIndications:N STEMI (non-ST elevated myocardial infarction) Take 1 tablet by mouth daily. 90 tablet 3 08/04/2023 Active isosorbide mononitrate CR (Imdur) 30 mg ER 24 hr tabletIndications:N STEMI (non-ST elevated myocardial infarction) Take 2 tablets by mouth daily. 180 tablet 3 08/25/2023 Active semaglutide (Ozempic) 1 mg/dose (4 mg/3 mL) Pen InjectorIndications :type 2 diabetes mellitus Inject 1 mg subcutaneously once a week. Indications: type 2 diabetes mellitus 9 mL 3 09/17/2023 Active Repatha Pushtronex 420 mg/3.5 mL wearable injectorIndications :Hyperlipidemia, unspecified hyperlipidemia type INJECT 3.5ML SUBCUTANEOUSLY VIA WEARABLE INJECTOR ROUTE EVERY 30 DAYS 12 mL 3 11/07/2023 Active prucalopride (Motegrity) 2 mg tabletIndications:G astroparesis Take 1 tablet by mouth daily. 90 tablet 3 11/17/2023 Active Active Problems Problem Noted Date Diagnosed Date Radiculopathy of lumbar region 01/23/2023 Constipation 08/29/2020 Overview (08/29/2020): Added automatically from request for surgery [id number] Non-ST elevation myocardial infarction (NSTEMI) 02/07/2020 NSTEMI (non-ST elevated myocardial infarction) 0 02/07/2020 BEN (obstructive sleep apnea) 10/20/2019 HAMMONDS (nonalcoholic steatohepatitis) 10/20/2019 Adult BMI 45.0-49.9 kg/sq m 10/20/2019 Delano's thyroiditis (jason vated TPO Ab 324, Tg 63 with normal TSH 1.75-2.25) 10/20/2019 Chronic low back pain 10/12/2019 Benign lipomatous neoplasm 03/18/2018 Cystocele 03/18/2018 Depression, anxiety, insomnia, PTSD 03/18/2018 Edema 03/18/2018 Nicotine dependence, uncomplicated 03/18/2018 Onychomycosis of toenail 03/18/2018 Osteoarthritis of hip 03/18/2018 Spinal stenosis of cervical region 03/18/2018 Carpal tunnel syndrome 08/11/2014 Gastroesophageal reflux disease with hiatal adriana ia 12/14/2010 Pain in right hip 02/01/2010 Type 2 diabetes mellitus Overview (03/18/2018): Diet controlled HLD (hyperlipidemia) Hepatitis Resolved Problems Problem Noted Date Diagnosed Date Resolved Date Degeneration of intervertebr al disc of lumbar region 03/18/2018 10/20/2019 Dysphagia 03/18/2018 10/20/2019 Frequency of micturition 03/18/201801/2019 Hypertrophy of breast 03/18/20182019 Pain in thoracic spine 03/18/201810/19 Strain of lumbar region 03/18/201810/10 Tear of medial meniscus of knee 03/18/2018 10/20/2019 Trochanteric bursitis 03/18/20182019 Atopic rhinitis 03/18/2018 10/20/2019 Lateral epicondylitis 11/28/20142019 Enthesopathy of lower extrem ity excluding foot 01/19/2013 10/20/2019 Knee pain 10/31/2011 10/20/2019 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 12/14/2010 10/20/2019 Neck pain 10/20/2019 Anxiety disorder 10/20/2019 Hiatal hernia 10/20/2019 Insomnia 10/20/2019 Adiposity 10/20/2019 Encounters Date Type Department Care Team Description 11/17/2023 Refill [place] [address] Nimesh Alicia MD Gastroparesis 11/07/2023 Refill Cardiology at [address] [phone] Lc Garcia MD Medication Refill 11/03/2023 3:15 PM EDT Office Visit Orthopaedics at [address] [phone] Elvin Whiting MD Pain in right wrist 11/03/2023 Travel 10/27/2023 Travel 10/03/2023 10:47 AM EDT Anesthesia [place] [address] Lilibeth Freed MD Beck, Troy J, MD 10/03/2023 10:30 AM EDT - 10/03/2023 11:00 AM EDT Surgery [place] [phone] Nimesh Alicia MD EGD WITH BIOPSY (WRVU 2.39) 10/03/2023 9:38 AM EDT - 10/03/2023 12:15 PM EDT Hospital Encounter [place] [phone] Nimesh Alicia MD Discharge Disposition: Home 10/03/2023 Telephone Physical Therapy at [facility] [address] [place] [address] Tatyana Hernandez 09/05/2023 2:30 PM EDT Ancillary [place] [phone] Unknown 09/05/2023 Interpretation [place] [phone] Unknown from Last 3 Months Immunizations Name Administration Dates Next Due Influenza Quadrivalent, Preservative Free 2019 Family History Relation Status Comments Brother Father Mother Sister Social History Tobacco Use Types Packs/Day Years [...] AM EDT Sexual Orientation Not on file Last Filed Vital Signs Vital Sign Reading Time Taken Comments Blood Pressure 117/68 10/03/2023 11:50 AM EDT Pulse 68 10/03/2023 10:07 AM EDT Temperature 36.7 ??C (98.1 ??F) 10/03/2023 10:07 AM E DT Respiratory Rate 16 10/03/2023 11:50 AM EDT Oxygen Saturation 98% 10/03/2023 11:50 AM EDT Inhaled Oxygen Concentration - - Weight 99.8 kg (220 lb) 10/03/2023 10:07 AM EDT Height 165.1 cm (5' 5) 10/03/2023 10:07 AM EDT Body Mass Index 36.61 10/03/2023 10:07 AM EDT Plan of Treatment Health Maintenance Due Date Last Done Comments CT Colonography 1961 FIT DNA 1960 FIT 1961 Sigmoidoscopy 1960 Pneumococcal Vaccine: At-Ris k 5-64yrs (1 of 2 - PCV) 07/19/1967 DM Opthalmology Exam 07/19/1971 HIV screen 07/19/1979 Hepatitis C Screening 07/19/1979 Tdap adult 1980 Tetanus vaccine 1980 HPV test 07/19/1991 PAP Smear 07/19/1991 Breast Cancer Share Decision Needed 2001 Breast Cancer screening 2001 Zoster vaccine (1 of 2) 07/19/2011 Advance Directive 2016 Covid-19 Vaccine (2 - 2022-2 4 season) 2023 03/15/2022 DM Creatinine yearly 07/30/2023 07/29/2022, 02/09/2020, 02/08/2020, Additional history exists DM Urine Microalbumin yearly 07/30/2023 07/29/2022 Influenza (Flu) vaccine (1 o f 1 - Influenza standard series) 01/11/2024 02/09/2020 DM Hemoglobin A1c 6 month 01/31/20242023, 07/29/2022, 02/07/2020 Lipid Screening 02/06/2025 02/07/2020 Colonoscopy 08/02/2031 08/01/2021, 08/01/2021 Colorectal Cancer Screening 08/02/2031 Sigmoidoscopy (10 year) with FIT yearly 08/02/2031 08/01/2021, 08/01/2021 Procedures Procedure Name Priority Date/Time Associated Diagnosis Comments SPECIMEN TO PATHOLOGY Routine 10/03/2023 11:02 AM EDT SURGICAL PATHOLOGY REPORT Routine 10/03/2023 10:58 AM EDT UPPER GI ENDOSCOPY Routine 10/03/2023 10 :50 AM EDT Upper Gi Endoscopy, Biopsy ([id number]) 10/03/2023 10:48 AM EDT Gastroparesis POCT GLUCOSE Routine 10/03/2023 10:27 AM EDT FILM LIBRARY STORAGE ONLY DX WRIST Routine 09/05/2023 2:30 PM EDT HC HEMOGLOBIN A1C Routine 07/31/2023 12: 12 PM EDT Type 2 diabetes, controlled, 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 HC CREATININE - NON BLOOD Routine 07/29/2022 10:59 AM EDT Type 2 diabetes, controlled, 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 BASIC METABOLIC PANEL (NON-FASTING) Routine 07/29/2022 10:55 AM EDT Type 2 diabetes, controlled, 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 COLONOSCOPY Routine 08/01/2021 9:51 AM EDT LIPID PANEL (REFLEX DIRECT LDL) STAT 02/07/2020 7:29 AM EDT from Last 3 Months or Most Recently Relevant to Health Maintenance Results * Specimen to Pathology (10/03/2023 11:02 AM EDT) AP Specimen 10/03/2023 11:0 2 AM EDT 10/03/2023 11:03 AM EDT Narrative [facility] - 10/03/2023 11:03 AM EDT Specimen requisition ordered. ??Separate Pathology report to follow Nimesh Alicia MD PATHOLOGY/CYTOLOGY O RDERABLES [facility] [place] [id number] * Surgical Pathology Report (10/03/2023 10:58 AM EDT) Surgical Pathology Report [id number] ? Location: 4T; EA10; A The signing pathologist has (i) examined the relevant preparation(s) for the specimen(s) and (ii) rendered or confirmed the diagnosis(es). . ?Surgical Pathology DIAGNOSIS A - GE junction,biopsy (Multiple): - ??Squamous esophageal and cardiac mucosa within normal limits. - ??No goblet cell metaplasia is seen. Electronically signed by: ?Desirae ABDUL, Cleopatra Andersen Verified: ??10/14/2023 15:24 ??Pathologist Performed at: ??-[facility] Dept. of Pathology, [place] [address] Helicopter Technician: Cleopatra Merrill MD, FCAP, ??CLIA Certificate: [id number] SPECIMEN(S) SUBMITTED A - GE junction bx's. r/o ?? Johnson's, biopsy (Multiple) CLINICAL INFORMATION 63-year-old with? ??Johnson's SPECIMEN PROCESSING A - Labeled/Fixativ e: GE junction BX, rule out Johnson's, formalin. Quantity/Size: Four, averaging 0.4 cm. Tissue Description: Soft, pink-red tissues. Sections/Proces sing: Submitted in toto ??in 1 cassette labeled A1. ??sns [facility] 10/03/2023 10:5 8 AM EDT Nimesh Alicia MD PATHOLOGY/CYTOLOGY O RDERABLES [facility] [place] [address] * UPPER GI ENDOSCOPY (10/03/2023 10:50 AM EDT) UPPER GI ENDOSCOPY [facility] ___ Procedure Date: 10/03/2023 10:50 AM ? Patient Name: Danielle Mills ? Date of : 1960 ? Age: 63 ? Order #: [id number] ? Instrument Name: [id number] ? ___ Procedure: ? Upper GI endoscopy Indications: ? Gastro-esophageal reflux disease, ? Follow-up of Johnson's esophagus Providers: ? Carlos Christian ? SHAR Stubbs, Carlos Veliz Referring MD: ?Kaylee Jaquez Medicines: ? Propofol per [...] Procedure Code(s): ? --- Professional --- ? 02461, Esophagogastroduode noscopy, ? flexible, transoral; with biopsy, ? single or multiple Diagnosis Code(s): ? --- Professional --- ? K21.9, Gastro-esophageal reflux ? disease without esophagitis ? K22.70, Johnson's esophagus without ? dysplasia ? --- Technical --- ? K21.9, Gastro-esophageal reflux ? disease without esophagitis ? K22.70, Johnson's esophagus without ? dysplasia CPT copyright 2022 [employer]. All rights reserved. The codes documented in this report are preliminary and upon manager private review may be revised to meet current compliance requirements. Attending Participation: ? I personally performed the entire procedure. ? Nimesh Alicia, 10/03/2023 11:02:52 AM Number of Addenda: 0 Note Initiated On: 10/03/2023 10:50 AM PROVATION 10/03/2023 10:5 0 AM EDT Unknown GENERAL SURGICAL ORD ERABLES PROVATION * POCT Glucose (10/03/2023 10:27 AM EDT) POC Glucose 114 65 - 199 mg/dL [facility] Comment: Supplemental ranges: <140 mg/dL before meals <180 mg/dL all other times of the day Blood 10/03/2023 10:2 7 AM EDT 10/03/2023 10:27 AM EDT Nimesh Alicia MD POINT OF CARE TEST O RDERABLES Performing Organization Address [facility] de Phone Number [facility] [place] [address] * Film Library- Storage Only DX Wrist (09/05/2023 2:30 PM EDT) 10/28/2023 4:11 PM EDT Narrative [facility] - 10/28/2023 4:11 PM EDT This exam is auto-finalizing. It's purpose is for storage only. Unknown IMG FILM LIBRARY ORD ERABLES Performing Organization Address [facility] Co de Phone Number [place], [place] * (ABNORMAL) Hemoglobin A1c (07/31/2023 12:12 PM EDT) Hemoglobin A1C 6.9(H) 4.3 - 5.6 % [facility] Comment: Reference Range: 4.3 - 5.6% 5.7 - 6.4% - Increased Risk of Developing Diabetes Mellitus >= 6.5% - Consistent with diagnosis of Diabetes Mellitus In the absence of hyperglycemia (i.e. plasma glucose > 200 mg/dL) or classic symptoms of hyperglycemia a repeat measurement of HbA1c should be performed on a separate sample to confirm the diagnosis. Diagnosis and Classification of Diabetes Mellitus, Diabetes Care 2013; 36: Suppl. 1, S67-74 Est Avg Gluc 150 mg/dL [facility] Blood 07/31/2023 12:1 2 PM EDT 07/31/2023 12:43 PM EDT Narrative Resulting Agency Comment Spec In Lab Marta Rivera MD CHEMISTRY ORDERAB LES Performing Organization Address City/[facility]/ZIP Co de Phone Number [facility] [place] [address] * U Albumin/Cre Ratio (07/29/2022 10:59 AM EDT) Alb/Cr Ratio, Random Not Calculated 0 - 29 mcg/mg Cr [facility] Comment: Reference Ranges: <30 mcg/mg: Normal 30-300 mcg/mg: Moderately increased albuminuria.* >300 mcg/mg: Severely increased albuminuria. * ACEI or ARB recommended if diabetic; suggested if BP>130/80 without diabetes ACEI or ARB strongly recommended if diabetic; recommended if BP>130/80 without diabetes Two of three specimens collected within a 3 to 6 month period should be abnormal before considering a patient to have albuminuria. Transient causes: exercise, fever, infection, CHF, marked hyperglycemia or hypertension. Persistent albuminuria indicates CKD and is an independent risk factor for ASCVD. ADA Standards of Medical Care in Diabetes-2016; KDIGO: Kidney International Supplements (2012) 2, 357? 362 U Albumin Conc, Random <3.0 mg/L [facility] U Creatinine 49 mg/dL [facility] Urine 07/29/2022 10:5 9 AM EDT 07/29/2022 11:16 AM EDT Narrative Resulting Agency Comment Spec In Lab Marta Rivera MD URINE ORDERABLES [facility] [place] [address] * Basic Metabolic Panel (non-fasting) (07/29/2022 10:55 AM EDT) Glucose Lvl 139 65 - 199 mg/dL [facility] Comment:Diabetes: >=200 mg/d L plus symptoms BUN 11 8 - 18 mg/dL [facility] Creatinine 0.70 0.70 - 1.20 mg/dL [facility] Sodium 142 135 - 145 mmol/L [facility] Potassium 3.8 3.5 - 5.0 mmol/L [facility] Comment: Please note: ??Patients with WBC >100,000 may have falsely elevated Potassium levels. ??For accurate Potassium quantification in these patients send serum separator tube (gold top) for subsequent determinations. ??Contact the Clinical Chemistry Laboratory if there are any questions. Chloride 103 98 - 107 mmol/L [facility] CO2 28 22 - 31 mmol/L [facility] Anion Gap 11 5 - 15 mmol/L [facility] Calcium 9.4 8.5 - 10.5 mg/dL [facility] Estimated GFR 98 >=60 mL/min/1. 73 m?? [facility] Comment: This patient's estimated GFR was calculated using the 2020 CKD-EPI equation. The estimated GFR can vary from the measured GFR by up to 30% in the absence of rapidly changing kidney function. Assessment of the estimated GFR is not appropriate when creatinine concentrations are rapidly changing. For clinical situations in which a more precise estimate of GFR is necessary, consider alternative methods of GFR estimation such as a 24-hour urine creatinine clearance. Assignment of CKD stage 1-5 for patients with an eGFR near the transition point between stages may be based on clinical assessment of muscle mass and symptoms in addition to eGFR. Blood 07/29/2022 10:5 5 AM EDT 07/29/2022 11:15 AM EDT Narrative Resulting Agency Comment Spec In Lab Marta Rivera MD CHEMISTRY ORDERAB LES [facility] [place] [address] * COLONOSCOPY (08/01/2021 9:51 AM EDT) COLONOSCOPY [facility] Endoscopy Procedure Date: 08/01/2021 9:51 AM ? Patient Name: Danielle Mills ? N: [id number] ? Date of : 1960 ? Age: 61 ? Order #: [id number] ? Instrument Name: [id number] ? Procedure: ? Colonoscopy Indications: ? Constipation Providers: ? Nimesh Alicia, Deidre Vega, ? Carlos Veliz Referring MD: ?Steven Jeffries MD Medicines: ? Propofol per Anesthesia Complications: ? No immediate complications. Procedure: ? Pre-Anesthesia Assessment: ? - Prior to the procedure, a History ? and Physical was performed, and ? patient medications and allergies ? were reviewed. The patient is ? competent. The risks and benefits of ? the procedure and the sedation ? options and risks were discussed with ? the patient. All questions were ? answered and informed consent was ? obtained. Patient identification and ? proposed procedure were verified by ? the physician in the pre-procedure ? area. Mental Status Examination: ? alert and oriented. Airway ? Examination: normal oropharyngeal ? airway and neck mobility. Respiratory ? Examination: clear to auscultation. ? CV Examination: normal. Prophylactic ? Antibiotics: The patient does not ? require prophylactic antibiotics. ? Prior Anticoagulants: The patient has ? taken no previous anticoagulant or ? antiplatelet agents. ASA Grade ? Assessment: II - A patient with mild ? systemic disease. After reviewing the ? risks and benefits, the patient was ? deemed in satisfactory condition to ? undergo the procedure. The anesthesia ? plan was to use monitored anesthesia ? care (MAC). Immediately prior to ? administration of medications, the ? patient was re-assessed for adequacy ? to receive sedatives. The heart rate, ? respiratory rate, oxygen saturations, ? blood pressure, adequacy of pulmonary ? ventilation, and response to care ? were monitored throughout the ? procedure. The physical status of the ? patient was re-assessed after the ? procedure. ? The procedure, indications, benefits, ? risks and alternatives were explained ? to the patient. Specifically ? discussed were potential ? complications including, but not ? limited to, bleeding, perforation, ? infection, missing a cancer, and ? adverse medication reactions. The ? patient was placed in the left ? lateral decubitus position, and a ? digital rectal exam was performed. ? The Colonoscope was inserted in the ? anus and under direct visualization, ? advanced to the terminal ileum. ? Careful inspection was made as the ? colonoscope was withdrawn. The ? patient tolerated the procedure well. ? The quality of the bowel preparation ? was adequate. ? Findings: ? The terminal ileum appeared normal. ? Two flat polyps were found in the recto-sigmoid ? colon. The polyps were 1 to 2 mm in size. These ? polyps were removed with a cold snare. Resection and ? retrieval were complete. ? The retroflexed view of the distal rectum and anal ? verge was normal and showed no anal or rectal ? abnormalities. ? Moderate Sedation: ? Not applicable - See Anesthesia documentation Impression: ?- The examined portion of the ileum ? was normal. ? - Two 1 to 2 mm polyps at the ? recto-sigmoid colon, removed with a ? cold snare. Resected and retrieved. ? - The distal rectum and anal verge ? are normal on retroflexion view. Recommendation: ?- Discharge patient to home. ? - Resume previous diet. ? - Await pathology results. ? - Repeat colonoscopy for surveillance ? based on pathology results. ? - SmartPill and Anorectal manometry ? - Continue bowel regimen ? Procedure Code(s): ?? --- Professional --- ? 65834, Colonoscopy, flexible; with ? removal of tumor(s), polyp(s), or ? other lesion(s) by snare technique Diagnosis Code(s): ?? --- Professional --- ? K59.00, Constipation, unspecified ? K63.5, Polyp of colon ? --- Technical --- ? K59.00, Constipation, unspecified ? K63.5, Polyp of colon CPT copyright 2019 [employer]. All rights reserved. The codes documented in this report are preliminary and upon manager private review may be revised to meet current compliance requirements. Attending Participation: ? I personally performed the entire procedure. ? Nimesh Alicia, 08/01/2021 11:11:02 AM Number of Addenda: 0 Note Initiated On: 08/01/2021 9:51 AM PROVATION 08/01/2021 9:51 AM EDT Steven Jeffries MD GENERAL SURGICAL ORD ERABLES PROVATION * Lipid Panel (Reflex Direct LDL) (02/07/2020 7:29 AM EDT) Chol, Total 186 mg/dL [facility] Comment: Lower Risk: <200 mg/dL Average Risk: 200-239 mg/dL Higher Risk: >ys=150 mg/dL Triglycerides 161 mg/dL [facility] Comment: Average Risk/Lower Risk: <150 mg/dL Borderline High Risk: 150-199 mg/dL High Risk: 200-499 mg/dL Very High Risk: >da=797 mg/dL HDL 34 mg/dL [facility] Comment: Males: ?? Higher Risk: <40 mg/dL Females: ?? HIgher Risk: <50 mg/dL LDL Cholesterol 120 mg/dL [facility] Comment: Lowest Risk: <100 mg/dL Lower Risk: 100-129 mg/dL Borderline High Risk: 130-159 mg/dL High Risk: 160-189 mg/dL Very High Risk: >rg=483 mg/dL Chol/HDL Ratio 5.5 ratio [facility] Lipid Interpretation See Note [facility] Comment: Lipid management should be guided by a patient? s ASCVD risk, goals and preferences. ACC/AHA Guidelines recommend high intensity statin if clinical ASCVD or LDL greater than or equal to 190 mg/dL. http://Picanova/VBW-MTI-Qthnylzzq Adults aged 40-75 with LDL 70-189 mg/dL should have their 10 year ASCVD risk estimated with the ACC/AHA ASCVD risk help desk specialist http://tools.acc.org/ZSRJO-Mzdr-Dyrreopeq/ Statin should be discussed if risk greater than or equal to 7.5% in non-diabetics. With diabetes, moderate intensity statin is recommended if risk less than 7.5%, high intensity if risk greater than or equal to 7.5%. Annual lipid monitoring on statins is not necessary. Evaluate secondary causes of Triglycerides greater than 500 mg/dL or LDL greater than 190 mg/dL: See table 6 of ACC/AHA Guideline. Lifestyle modification is a critical component of ASCVD risk reduction. Blood specimen (specimen) 02/07/2020 7:29 AM EDT 02/07/2020 7:45 AM EDT Narrative Resulting Agency Comment Spec In Lab Vik Justin MD CHEMISTRY ORDER TOBI [facility] [place] [address] from Last 3 Months or Most Recently Relevant to Health Maintenance Advance Directives * Full Code (Latest Code Status on File) Date Activated Date Inactivated Comments 02/07/2020 7:37 AM 02/09/2020 2:35 PM Question Answer Comments Does patient have capacity to make decision: Yes * Attempt Cardiopulmonary Resuscitation - Inpatient Date Activated Date Inactivated Comments 02/07/2020 7:37 AM 02/07/2020 7:37 AM Question Answer Comments Code Status decision made by: Patient Care Teams Boilers Inspector Relationship Specialty Start Date End Date Kaylee Jaquez PA [address] [place] [address] PCP - General Family Medicine 01/18/22
--- OUTSIDE RECORDS SUMMARY | 2023-11-25 15:30 | XMS_ITS | Encounter Summary ---
Author Organization [facility] Address [address] [place] [address] Care Team Providers Care Assistant Professor Of Marine Biology Name Role Phone Kenia Hernandez Arnaldo [facility] Primary Care Provider [phone] Francy Lowe [facility] Primary Care Provider [phone] Encounter Details Date Type Department Care Team (Late st Contact Info) Description 09/12/2020 Lab Requisition [facility] Pathology & Laboratory Medicine - [facility] [address] [place], [place] [address] Outr Resulting Lab, Provider Social History Tobacco [...] Date/Time Associated Diagnosis Comments HOLD SST Today 09/12/2020 12:07 EDT HEPATITIS C AB W REFLEX TO HCV RNA BY PCR Today 09/12/2020 12:07 EDT HEPATITIS A TOTAL ANTIBODY W REFLEX Today 09/12/2020 12:07 EDT HEPATITIS B SURFACE ANTIBODY Today 09/12/2020 12:07 EDT documented in this encounter Results * HOLD SST (09/12/2020 12:07 EDT) Hold Hold 09/12/2020 21:32 EDT [facility] Blood VENOUS BLOOD / Unknown 09/12/2020 12:07 EDT 09/12/2020 20:29 EDT Provider Outr Resulting Lab LAB INFO SER VICE AND SUPPORT & PHONE RESULT Performing Organization Address [facility]/ZIP Co de Phone Number [facility] [address] [place] [address] * HEPATITIS B SURFACE ANTIBODY (09/12/2020 12:07 EDT) Pathologist [facility] Hep B Surface Ab, Quantitative <3.1 See Note mIU/mL 09/13/2020 10:22 EDT [facility] Comment: Reference Range for Hep B Surface Ab, Quant: Positive: >= 10.0 mIU/mL Negative: ??< 10.0 mIU/mL Patient is presumed to not be immune to infection with Hepatitis B Virus. Hep B Surface Ab, Qualitative Negative See Note 09/13/2020 10:22 EDT [facility] Comment: Reference Range for Hep B Surface Ab, Qual: Unvaccinated: ??Negative Vaccinated: ??Positive Blood VENOUS BLOOD / Unknown 09/12/2020 12:07 EDT 09/12/2020 20:29 EDT Provider Outr Resulting Lab CHEMISTRY & BLOOD GAS ORDERABLES Performing Organization Address [facility]/ZIP Co de Phone Number [facility] [address] [place] [id number] * HEPATITIS C AB W REFLEX TO HCV RNA BY PCR (09/12/2020 12:07 EDT) Pathologist [facility] Hep C Antibody Negative Negative 09/13/2020 10:17 EDT [facility] Blood VENOUS BLOOD / Unknown 09/12/2020 12:07 EDT 09/12/2020 20:24 EDT Provider Outr Resulting Lab CHEMISTRY & BLOOD GAS ORDERABLES [facility] [address] [place] [address] * HEPATITIS A TOTAL ANTIBODY W REFLEX (09/12/2020 12:07 EDT) Hepatitis A Antibody, Total Negative Negative 09/13/2020 11:07 EDT [facility] Blood VENOUS BLOOD / Unknown 09/12/2020 12:07 EDT 09/12/2020 20:29 EDT Narrative [facility] - 09/13/2020 11:07 EDT The result of this assay can be falsely elevated (Positive) due to the consumption of Biotin. Provider Outr Resulting Lab CHEMISTRY & BLOOD GAS ORDERABLES [facility] [address] [place] [address] documented in this encounter Visit Diagnoses Not on filedocumented in this encounter Care Teams Assistant Professor Of Marine Biology Relationship Specialty Start Date End Date Kenia Hernandez NP [address] [place] [address] PCP - General 06/04/16 11/29/20 Francy Lowe NP [address] [place] [address] PCP - General 11/30/20 documented as of this encounter
--- OUTSIDE RECORDS SUMMARY | 2023-11-25 15:30 | XMS_ITS | Encounter Summary ---
Author Organization [facility] Address [address] [place] [address] Care Team Providers Care Ribber Name Role Phone Francy Lowe NP Primary Care Provider [phone] Reason for Referral * Radiology Services (Routine) - Authorization Not Required Specialty Diagnoses / Procedures Referred By Contac t Referred To Contact Diagnoses Right hip pain Procedures XR HIP RIGHT 2-3 VIEWS, OPTIONAL PELVIS Helena Ramirez NP [address] [place] [address] Referral ID Status Reason Start Date Expiration Date Visits Requested Visits Authorized [id number] Authorization Not Required 11/30/2020 1 1 Reason for Visit * Radiology Services (Routine) - Authorization Not Required Specialty Diagnoses / Procedures Referred By Contac t Referred To Contact Diagnoses Right hip pain Procedures XR HIP RIGHT 2-3 VIEWS, OPTIONAL PELVIS Helena Ramirez NP [address] [place] [address] Referral ID Status Reason Start Date Expiration Date Visits Requested Visits Authorized [id number] Authorization Not Required 11/30/2020 1 1 Encounter Details Date Type Department Care Team (Latest Contact Info) Description 11/30/2020 14:15 EDT - 11/30/2020 23:59 EDT Hospital Encounter [facility] Xray [address] [place], [place] [id number] Right hip pain Discharge Disposition: Home or Self Care Social [...] Code Departure Means Destination Home or Self Care documented in this encounter Plan of Treatment Not on file documented as of this encounter Procedures Procedure Name Priority Date/Time Associated Diagnosis Comments XR HIP RIGHT 2-3 VIEWS, OPTIONAL PELVIS Routine 11/30/2020 14:57 EDT Right hip pain documented in this encounter Results * XR HIP RIGHT [...] this encounter Visit Diagnoses Diagnosis Right hip pain Pain in joint, pelvic region and thigh documented in this encounter Care Teams Ribber Relationship Specialty Start Date End Date Francy Lowe NP PCP - General 11/30/20 documented as of this encounter
--- OUTSIDE RECORDS SUMMARY | 2023-11-25 15:30 | XMS_ITS | Encounter Summary ---
Author Organization [facility] Address [address] [place] [address] Care Team Providers Care Bindery Machine Setter Name Role Phone Adeana luisa Francy Pauline ACCOUNTANT BOOKKEEPER Primary Care Provider [phone] Encounter Details Date Type Department Care Team (Latest Contact Info) Description 03/05/2021 10:48 EDT - 03/05/2021 23:59 EDT Hospital Encounter [facility] [address] [place], [place] [id number] Low back pain, unspecified back pain laterality, unspecified chronicity, unspecified whether sciatica present Discharge Disposition: Home or Self Care Social [...] on file documented as of this encounter Medications at Time of Discharge Medication Sig Dispensed Refills Start Date End Date aspirin chewable 81 mg tablet Take 81 mg by mouth daily. clopidogreL (PLAVIX) 75 mg tablet Take 75 mg by mouth daily. dexlansoprazole (DEXILANT) 60 mg capsule Take 60 mg by mouth daily. evolocumab (REPATHA PUSHTRONEX) 420 mg/3.5 mL wearable injector Inject 420 mg into the skin every 28 days. glimepiride (AMARYL) 4 mg tablet Take 4 mg by mouth 2 times daily. isosorbide MONOnitrate (IMDUR) 60 mg CR tablet Take 60 mg by mouth daily. liothyronine (CYTOMEL) 5 mcg tablet Take 5 mcg by mouth daily. liraglutide (VICTOZA 2-AUGUSTINE SUBQ) Inject 1.8 mg into the skin daily. losartan (COZAAR) 25 mg tablet Take 12.5 mg by mouth daily. Half tab metoprolol TARtrate (LOPRESSOR) 50 mg tablet Take 50 mg by mouth daily. documented as of this encounter Discharge Disposition Disposition Code Departure Means Destination Home or Self Care documented in this encounter Plan of Treatment Not on file documented as of this encounter Procedures Procedure Name Priority Date/Time Associated Diagnosis Comments XR LUMBAR SPINE 4+ VIEWS Routine 03/05/2021 11:01 EDT Low back pain, unspecified back pain laterality, unspecified chronicity, unspecified whether sciatica present documented in this encounter Results * XR LUMBAR SPINE 4 OR MORE VIEWS (03/05/2021 11:01 EDT) Anatomical Region Laterality Modality Computed Radiogr aphy 03/06/2021 12:3 9 EDT Impressions 03/06/2021 12:39 EDT Findings/Impression: Suspicious normal alignment. No dynamic instability. Vertebral body heights and disc heights are normal. Mild facet arthropathy in the lower lumbar levels. Surgical clips in the right upper quadrant. Atherosclerotic calcifications of the abdominal aorta are present. Narrative 03/06/2021 12:39 EDT XR LUMBAR SPINE 4 OR MORE VIEWS ??03/05/2021 11:00 AM Clinical History/Comments: Lower back pain. Technique: AP and lateral views of the lumbar spine. Flexion and extension views of the lumbar spine. Comparison: None Procedure Note Carlos Shi MD - 03/06/2021 XR LUMBAR SPINE 4 OR MORE VIEWS 03/05/2021 11:00 AM Clinical History/Comments: Lower back pain. Technique: AP and lateral views of the lumbar spine. Flexion and extension views ofthe lumbar spine. Comparison: None IMPRESSION Findings/Impression: Suspicious normal alignment. No dynamic instability. Vertebral bodyheights and disc heights are normal. Mild facet arthropathy in the lowerlumbar levels. Surgical clips in the right upper quadrant. Atheroscleroticcalcifications of the abdominal aorta are present. Fariba Darling PA-C [facility] ORDERABLES documented in this encounter Visit Diagnoses Diagnosis Low back pain, unspecified back pain laterality, unspecified chronicity, unspecified whether sciatica present documented in this encounter Care Teams Bindery Machine Setter Relationship Specialty Start Date End Date Francy Lowe NP PCP - General 11/30/20 documented as of this encounter
--- OUTSIDE RECORDS SUMMARY | 2023-11-25 15:30 | XMS_ITS | Encounter Summary ---
Author Organization [facility] Address [address] [place] [address] Care Team Providers Care Applications Manager Name Role Phone Francy Lowe APPLICATION ADMINISTRATOR Primary Care Provider [phone] Encounter Details Date Type Department Care Team (Late st Contact Info) Description 02/16/2021 Orders Only [facility] - [address] [place] [address] Fariba Darling PA-C [address] [facility] [place] [address] Low back pain, unspecified back pain laterality, unspecified chronicity, unspecified whether sciatica present (Primary Dx) Social [...] as of this encounter Results * XR LUMBAR SPINE [...] unspecified chronicity, unspecified whether sciatica present- Primary Low back pain, unspecified back pain laterality, unspecified chronicity, unspecified whether sciatica present documented in this encounter Care Teams Applications Manager Relationship Specialty Start Date End Date Francy Lowe NP PCP - General 11/30/20 documented as of this encounter
--- OUTSIDE RECORDS SUMMARY | 2023-11-25 15:30 | XMS_ITS | Encounter Summary ---
[place] [address] Care Team Providers Care Cart Pusher Name Role Phone Kaylee Jaquez Primary Care Provider Encounter Details Date Type Department Care Team (Latest Contact Info) Description 08/19/2023 Travel Social History Tobacco Use Types Packs/Day Years [...] on filedocumented in this encounter Care Teams Cart Pusher Relationship Specialty Start Date End Date Kaylee Jaquez PA [address] [place] [address] PCP - General Family Medicine 01/18/22 documented as of this encounter
--- OUTSIDE RECORDS SUMMARY | 2023-11-25 15:30 | XMS_ITS | Referral Summary ---
Author Organization [facility] Address [address] [place] [address] Care Team Providers Care Carpenter Assistant Installer Name Role Phone Adeana luisa Francy Pauline TAFFY CANDY MAKER Primary Care Provider [phone] Allergies Active Allergy Reactions Criticality Noted Date Comments Codeine Itching,Other (See Comments) 03/05/2021 insomnia Indomethacin Headaches 03/05/2021 Oxycodone-Acetaminophen Itching,Other (S ee Comments) 03/05/2021 Insomnia Hydrocodone-Acetaminophen Itching,Other (See Comments) 03/05/2021 insomnia Medications Medication Sig Dispensed Refills Start Date End Date Status evolocumab (REPATHA PUSHTRONEX) 420 mg/3.5 mL wearable injector Inject 420 mg into the skin every 28 days. Active metoprolol TARtrate (LOPRESSOR) 50 mg tablet Take 50 mg by mouth daily. Active clopidogreL (PLAVIX) 75 mg tablet Take 75 mg by mouth daily. Active losartan (COZAAR) 25 mg tablet Take 12.5 mg by mouth daily. Half tab Active aspirin chewable 81 mg tablet Take 81 mg by mouth daily. Active dexlansoprazole (DEXILANT) 60 mg capsule Take 60 mg by mouth daily. Active liothyronine (CYTOMEL) 5 mcg tablet Take 5 mcg by mouth daily. Active liraglutide (VICTOZA 2-AUGUSTINE SUBQ) Inject 1.8 mg into the skin daily. Active glimepiride (AMARYL) 4 mg tablet Take 4 mg by mouth 2 times daily. Active isosorbide MONOnitrate (IMDUR) 60 mg CR tablet Take 60 mg by mouth daily. Active Active Problems No known active problems Social History Tobacco Use Types Packs/Day Years [...] on file Sexual Orientation Not on file Plan of Treatment Not on file Procedures Procedure Name Priority Date/Time Associated Diagnosis Comments HEPATITIS C AB W REFLEX TO HCV RNA BY PCR Today 09/12/2020 12:07 EDT from Last 3 Months or Most Recently Relevant to Health Maintenance Results * HEPATITIS C AB W REFLEX TO HCV RNA BY PCR (09/12/2020 12:07 EDT) Hep C Antibody Negative Negative 09/13/2020 10:17 EDT [facility] Blood VENOUS BLOOD / Unknown 09/12/2020 12:07 EDT 09/12/2020 20:24 EDT Provider Outr Resulting Lab CHEMISTRY & BLOOD GAS ORDERABLES [facility] [address] [place] [address] from Last 3 Months or Most Recently Relevant to Health Maintenance Care Teams Carpenter Assistant Installer Relationship Specialty Start Date End Date Francy Lowe NP PCP - General 11/30/20
--- OUTSIDE RECORDS SUMMARY | 2023-11-25 15:30 | XMS_ITS | Clinical Summary ---
Author Organization [facility] Address [address] [place] [address] Care Team Providers Care Glass Or Mirror Inspector Name Role Phone Adeana luisa Francy Pauline TANK CREWMEMBER Primary Care Provider [phone] Allergies Active Allergy Reactions Criticality Noted Date [...] on file Sexual Orientation Not on file Obstetrics History Plan of Treatment Health Maintenance Due Date Last Done Comments Pneumococcal Immunization (1 of 2 - PCV) 07/19/1966 RSV Immunization ( o r 60+ Years) (1 - 1-dose 60+ series) 2021 COVID-19 Vaccine ( - 2022- season) 2023 Hepatitis C Screen Completed 09/12/2020 Procedures Procedure Name Priority Date/Time Associated Diagnosis Comments HEPATITIS C AB W REFLEX TO HCV RNA BY PCR Today 09/12/2020 12:07 EDT from Last 3 Months or Most Recently Relevant to Health Maintenance Results * HEPATITIS C AB W REFLEX TO HCV RNA BY PCR (09/12/2020 12:07 EDT) Hep C Antibody Negative Negative 09/13/2020 10:17 EDT [facility] Blood VENOUS BLOOD / Unknown 09/12/2020 12:07 EDT 09/12/2020 20:24 EDT Provider Outr Resulting Lab CHEMISTRY & BLOOD GAS ORDERABLES [facility] [address] [place] [address] from Last 3 Months or Most Recently Relevant to Health Maintenance Care Teams Glass Or Mirror Inspector Relationship Specialty Start Date End Date Francy Lowe NP PCP - General 11/30/20
--- OUTSIDE RECORDS SUMMARY | 2023-11-25 15:30 | XMS_ITS | Encounter Summary ---
Author Organization [facility] Address [address] [place] [address] Care Team Providers Care Steeplechase Jockey Name Role Phone rByFrancy villagran CLINICAL RN Primary Care Provider [phone] Encounter Details Date Type Department Care Team (Late st Contact Info) Description 01/24/2021 Lab Requisition [facility] Pathology & Laboratory Medicine - [address] [id number] Outr Resulting Lab, Provider Social History Tobacco [...] Date/Time Associated Diagnosis Comments HOLD SST Today 01/23/2021 11:30 EDT HOLD SST Today 01/23/2021 11:30 EDT THYROPEROXIDASE ANTIBODY Today 01/23/2021 11:30 EDT ANTI THYROGLOBULIN Today 01/23/2021 11 :30 EDT T3 FREE Today 01/23/2021 11:30 EDT documented in this encounter Results * HOLD SST (01/23/2021 11:30 EDT) Hold Hold 01/24/2021 17:01 EDT [facility] Blood VENOUS BLOOD / Unknown 01/23/2021 11:30 EDT 01/24/2021 15:53 EDT Provider Outr Resulting Lab LAB INFO SER VICE AND SUPPORT & PHONE RESULT Performing Organization Address [facility]/ZIP Co de Phone Number [facility] [address] [place] [address] * HOLD SST (01/23/2021 11:30 EDT) Hold Hold 01/24/2021 17:01 EDT [facility] Blood VENOUS BLOOD / Unknown 01/23/2021 11:30 EDT 01/24/2021 15:53 EDT Provider Outr Resulting Lab LAB INFO SER VICE AND SUPPORT & PHONE RESULT Performing Organization Address [facility]/ZIP Co de Phone Number [facility] [address] [place] [address] * T3 FREE (01/23/2021 11:30 EDT) Pathologist [facility] T3, Free 3.7 2.8 - 5.3 pg/mL 01/24/2021 16:39 EDT [facility] Blood VENOUS BLOOD / Unknown 01/23/2021 11:30 EDT 01/24/2021 15:52 EDT Provider Outr Resulting Lab CHEMISTRY & BLOOD GAS ORDERABLES Performing Organization Address City/[facility]/ZIP Co de Phone Number [facility] [address] [place] [address] * (ABNORMAL) THYROPEROXIDASE ANTIBODY (01/23/2021 11:30 EDT) Pathologist [facility] Thyroperoxidase Ab 98(H) <=60 U/mL 2020 18:10 EDT [facility] Blood VENOUS BLOOD / Unknown 01/23/2021 11:30 EDT 01/24/2021 15:52 EDT Provider Outr Resulting Lab CHEMISTRY & BLOOD GAS ORDERABLES Performing Organization Address City/[facility]/ZIP Co de Phone Number [facility] [address] [place] [address] * ANTI THYROGLOBULIN (01/23/2021 11:30 EDT) Anti-Thyroglob ulin 34 <=60 U/mL 01/24/2021 18:10 EDT [facility] Blood VENOUS BLOOD / Unknown 01/23/2021 11:30 EDT 01/24/2021 15:52 EDT Provider Outr Resulting Lab CHEMISTRY & BLOOD GAS ORDERABLES Performing Organization Address City/[facility] Co de Phone Number [facility] [address] [place] [address] documented in this encounter Visit Diagnoses Not on filedocumented in this encounter Care Teams Steeplechase Jockey Relationship Specialty Start Date End Date Francy Lowe NP PCP - General 11/30/20 documented as of this encounter
--- OUTSIDE RECORDS SUMMARY | 2023-11-25 15:30 | XMS_ITS | Encounter Summary ---
Author Organization [facility] [place] [address] Care Team Providers Care Park Maintainer Name Role Phone Kaylee Jaquez Primary Care Provider [phone] Encounter Details Date Type Department Care Team (Late st Contact Info) Description 08/25/2023 [place] [id number] Tahmina Morataya Social History Tobacco Use Types Packs/Day Years [...] encounter Miscellaneous Notes * Telephone Encounter - Tahmina Morataya - 08/25/2023 8:28 AM EDT Danielle Mills [id number] Diagnosis/Indication: barretts Please review patient chart to confirm if previous Endoscopy procedure was performed within system. If yes, take note of Anesthesia type used. If previous procedure found, and with MAC/propofol Anesthesia support was used, schedule this procedure with Anesthesia and skip the Anesthesia portion of questions. If not performed within system, not performed at all, or performed with IVCS, ask Anesthesia questions. SCHEDULING QUESTIONS (ask all patient these questions) Have you ever had a/an Upper Endoscopy before? Yes: Date 11/19/18 If yes, did you have any problems with the procedure (such as waking up during the procedure, pain or difficulties afterwards, etc.)? No What type of sedation was used: General Anesthesia (ASK ONLY FOR COLONOSCOPY PROCEDURES) Are you aware, or have you ever been told that you had a poor prep or failed prep with a previous colonoscopy? No If yes, assign the Extended MiraLAX Prep (ASK ONLY FOR COLONOSCOPY PROCEDURES) Do you have an ongoing history of constipation? (E.g., hard stools, >2 days without a bowel movement, straining or difficulty passing stool) No If yes, assign the Extended MiraLAX Prep Do you take any blood thinners or have you been diagnosed with a bleeding disorder that increases your risk of bleeding with procedures? No Do you have a Pacemaker or Defibrillator device? If yes, send pool message to Cardiology with patient information and date or procedure. No Do you have diabetes? If yes, call PCP/managing provider to discuss use of prep and any questions or concerns related to. No If yes, assign the Extended MiraLAX Prep Do you take any iron supplements or vitamins that contain iron? No Do you have a preference regarding the gender of your provider? Yes latoya ANESTHESIA QUESTIONS (YES to any question, please book with Anesthesia support) Have you ever been diagnosed with Pulmonary Hypertension and/or Congential Heart Disease? No Have you been diagnosed with A-Fib (atrial fibrillation) that is NOT being well controled with medications? No Have you ever had an allergic or adverse reaction to Fentanyl or Versed? No Have you had a problem with sedation or anesthesia? (Waking up during procedure, extreme confusion after, etc.) No Do you have a diagnosis of Obstructive Sleep Apnea that requires the use of a c- pap machine? No Do you use an oxygen tank at home? No Do you use a rescue inhaler more than twice per day? (COPD, severe asthma) No Do you experience breathing problems when you lay flat for a period of time? No Do you regularly take prescription opioid pain medications on a daily basis? (Includes oxycodone, Percocet, Suboxone, methadone, etc.) No If yes, assign the Extended MiraLAX Prep SCHEDULING CONFIRMATIONS: Please note any and all parts of your conversation with the patient here. We offer all new patients an opportunity to have an appointment with one of our associate care providers to learn more about your upcoming procedure, ask questions and get answers. These appointmentsare offered via telehealth. Would you be interested in scheduling this appointment? (Only ask if NEW referral patient; skip this question if [facility] provider ordered the procedure.) No Is there any other information or concerns you would like to us to share with your care team in relation to your upcoming scheduled procedure? No You must have a responsible green party who will drive you to your procedure, stay on campus for the entire duration of your procedure, and drive you home from your procedure. Who will likely be your farm truck driver for the procedure? *Please Verify the height and weight, and adjust if height and/or weight have changed* Estimated body mass index is 37.08 kg/m?? as calculated from the following: Height as of 08/15/23: 165.1 cm (5' 5). Weight as of 08/15/23: 101.1 kg (222 lb 12.8 oz). Age:63 y.o. documented in this encounter Plan of Treatment Not on file documented as of this encounter Visit Diagnoses Not on filedocumented in this encounter Care Teams Park Maintainer Relationship Specialty Start Date End Date Kaylee Jaquez PA [address] [address] PCP - General Family Medicine 01/18/22 documented as of this encounter
--- OUTSIDE RECORDS SUMMARY | 2023-11-25 15:30 | XMS_ITS | Encounter Summary ---
Author Organization [facility] Address [facility] [place] [address] Care Team Providers Care Applications Manager Name Role Phone Kaylee Jaquez Primary Care Provider [phone] Reason for Visit * Reason Comments Medication Refill Encounter Details Date Type Department Care Team (Late st Contact Info) Description 11/07/2023 Refill Cardiology at [address] [id number] Lc Garcia MD [facility] [place] [address] Medication Refill Social History Tobacco Use Types [...] encounter Miscellaneous Notes * Telephone Encounter - Annette Houser RN - 11/07/2023 8:50 AM EDT VINICIUS: 08/15/23 Per assessment and Plan: Cardiovascular #Chest pain, musculoskeletal by history, normal recent perfusion imaging #ASCVD, three-vessel, 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 (LAD, LPL, LPDA), preserved LV systolic function, stable and without anginal symptoms #Hyperlipidemia, on Repatha, documented allergies to atorvastatin and Crestor, last LDL 43 #Hypertension, well controlled Noncardiac #Obesity, class 2 (BMI 36), ~40 pound weight loss since 2019, now stable for the past 6 months, on Ozempic #Type 2 diabetes, recent hemoglobin A1c 6.5%, followed by Endocrinology #Current smoker, at least 45 pack years, currently 0.5-1 pack per day Next f/u: due back 08/2024 Requested Prescriptions Pending Prescriptions Disp Refills Repatha Pushtronex 420 mg/3.5 mL wearable injector [Pharmacy Med Name: Repatha Pushtronex System 420 MG/3.5ML Subcutaneous Solution Cartridge] 12 mL 3 Sig: INJECT 3.5ML SUBCUTANEOUSLY VIA WEARABLE INJECTOR ROUTE EVERY 30 DAYS Annette Houser RN [facility] at [facility] [id number] documented in this encounter Plan of Treatment Not on file documented as of this encounter Visit Diagnoses Diagnosis Hyperlipidemia, unspecified hyperlipidemia type documented in this encounter Care Teams Applications Manager Relationship Specialty Start Date End Date Kaylee Jaquez PA [address] [place] [id number] PCP - General Family Medicine 01/18/22 documented as of this encounter
--- OUTSIDE RECORDS SUMMARY | 2023-11-25 15:30 | XMS_ITS | Encounter Summary ---
[place] [address] Care Team Providers Care Interpretive Program Coordinator Name Role Phone Kaylee Jaquez Primary Care Provider [phone] Reason for Visit * Reason Comments Right Wrist Pain Encounter Details Date Type Department Care Team (Late st Contact Info) Description 11/03/2023 3:15 PM EDT Office Visit [facility] at [place] [address] [place] [address] Sofie Whiting MD [address] [place] [address] Pain in right wrist Social History Tobacco Use Types Packs/Day Years [...] as of this encounter Progress Notes * Sofie Whiting MD - 11/03/2023 3:15 PM EDT SUBJECTIVE: Danielle is a 63 old female, self-referred for a chief complaint of right wrist pain. She reports symptoms have been present for the past couple of months. She complains of pain on the palm side of her hand that radiates up into her thumb. She states her 2nd - 4th fingers will lock up on her. She states the pain exacerbated with any use of her right hand. She has tried a thumbster wrist brace that she mostly wears at night. She denies any trauma. She has had prior right carpal tunnel release many years ago that she did very well with. She denies any other associated symptoms and has no systemic complaints. Diabetes:Yes Lab Results Component Value Date HA1C 6.9 (H) 07/31/2023 Anticoagulants:ASA 81 mg Medications 11/03/23 1500 Medication Sig Taking? semaglutide (Ozempic) 1 mg/dose (4 mg/3 mL) Pen Injector Inject 1 mg subcutaneously once a week. Indications: type 2 diabetes mellitus Yes. T isosorbide mononitrate CR (Imdur) 30 mg ER 24 hr tablet Take 2 tablets by mouth daily. Yes liothyronine (Cytomel) 5 mcg tablet Take 1 tablet by mouth daily. Yes metoprolol succinate XL (Toprol-XL) 50 mg ER 24 hr tablet Take 1 tablet by mouth daily. Yes dexlansoprazole (Dexilant) [address] capsule Take 1 capsule by mouth daily. Yes celecoxib (CeleBREX) 100 mg capsule Take 100 mg by mouth 2 times daily. Yes prucalopride (Motegrity) 1 mg tablet Take 2 tablets by mouth daily. Yes Repatha Pushtronex 420 mg/3.5 mL wearable injector 3.5 mLs by subcutaneous (via wearable injector) route every 30 days. Yes nitroGLYcerin (Nitrostat) 0.4 mg Tablet, Sublingual Place 0.4 mg under the tongue every 5 minutes as needed for Chest pain. Yes aspirin 81 mg Tablet, Chewable Take 81 mg by mouth daily. Yes acetaminophen (TYLENOL) 500 mg Tablet Take 1,000 mg by mouth as needed for Pain. Yes amoxicillin (AMOXIL) 500 mg Tablet Take 4 tablets by mouth 1 hour prior to procedure Yes clonazePAM (KLONOPIN) 0.5 mg Tablet Take 0.5 mg by mouth daily. Yes Allergies Allergen Reactions Atorvastatin Other (See Comments) [...] off the skin- Can use paper tape Family history is noncontributory. Social history: No drug or alcohol problems reported. Current half pack a day smoker. She is currently on disability. All other systems reviewed and were negative. Past medical history, medications and allergies were reviewed and updated where appropriate. OBJECTIVE: On exam, a well-developed, well-nourished female awake, alert, and oriented x3. BMI 36.61 Right wrist exam: Volar cystic mass Nontender Mobile Skins unremarkable IMAGING: Xrays taken on 09/05/23 of the right wrist at an outside facility were reviewed with the patient andshow minimal osteoarthritis no signs of fracture. ASSESSMENT: Right wrist volar medial ganglion cyst PLAN: Mutually agreed to proceed with aspiration and injection today We discussed the x-ray findings examination findings anatomy pertinent to the diagnosis. Consideration of surgical excision if this is not helpful Right wrist aspiration and steroid injection today. A lengthy discussion was undertaken in regards to aspiration procedure including risks, benefits, and complications, and alternatives. She understood all of this, and wished to proceed. Sterile preparation of the skin with alcohol. A 20 gauge needle was then inserted into the right wrist and approximately 1 mL of a clear colored fluid consistent with a ganglion cyst was aspirated. Band-aid and coban were applied. Post-aspiration and injection instructions were reviewed. Procedural Time-Out: [x] ISOFIE MD, attest that the following elements of the timeout were completed. All staff for procedure were present Patient name and verified Consent signed or verbally obtained Procedure and location verified by patient & provider, site marked if applicable Time-Out completed at 3:30 pm Cc: JUAN PABLO Waterman documented in this encounter Plan of Treatment Not on file documented as of this encounter Visit Diagnoses Diagnosis Pain in right wrist Pain in joint, forearm documented in this encounter Administered Medications Inactive Administered Medications - up to 3 most recent administrations Medication Order MAR Action Action Date Dose Rate Site betamethasone acetate-betamethasone sodium phosphate (Celestone) (6 mg/mL) injection 6 mg 6 mg, Intra-articular, ONCE, 1 dose, On 11/03/23 at 1615, Routine Given 11/03/2023 3:59 PM EDT 6 mg documented in this encounter Care Teams Interpretive Program Coordinator Relationship Specialty Start Date End Date Kaylee Jaquez PA [address] [place] [id number] PCP - General Family Medicine 01/18/22 documented as of this encounter
--- OUTSIDE RECORDS SUMMARY | 2023-11-25 15:30 | XMS_ITS | Encounter Summary ---
[place] [address] Care Team Providers Care Payroll Technician Name Role Phone Kaylee Jaquez Primary Care Provider [phone] Encounter Details Date Type Department Care Team (Latest Contact Info) Description 10/27/2023 Travel Social History Tobacco Use Types Packs/Day [...] on filedocumented in this encounter Care Teams Payroll Technician Relationship Specialty Start Date End Date Kaylee Jaquez PA [address] [place] [address] PCP - General Family Medicine 01/18/22 documented as of this encounter
--- OUTSIDE RECORDS SUMMARY | 2023-11-25 15:30 | XMS_ITS | Encounter Summary ---
Author Organization [facility] Address [address] [place] [address] Care Team Providers Care Cosmetology Educator Name Role Phone Kenia Hernandez Arnaldo STATION INSTALLER AND REPAIRER Primary Care Provider [phone] Francy Lowe STATION INSTALLER AND REPAIRER Primary Care Provider [phone] Encounter Details Date Type Department Care Team (Late st Contact Info) Description 06/04/2019 Lab Requisition [facility] Pathology & Laboratory Medicine - [address] [address] Unknown, Provider, Social History Tobacco Use Types Packs/Day Years Used Date Smoking Tobacco: Never Assessed Sex and Gender Information Value Date Recorded Sex Assigned at Not on file Gender Identity Not on file Sexual Orientation Not on file documented as of this encounter Plan of Treatment Not on file documented as of this encounter Procedures Procedure Name Priority Date/Time Associated Diagnosis Comments T3 FREE Routine 06/03/2019 8:30 EST THYROID ANTIBODIES Routine 06/03/2019 8:30 EST documented in this encounter Results * T3 FREE (06/03/2019 8:30 EST) T3, Free 3.3 2.8 - 5.3 pg/mL 06/04/2019 17:10 EST [facility] Blood VENOUS BLOOD / Unknown 06/03/2019 8:30 EST 06/04/2019 16:44 EST Provider Unknown CHEMISTRY & BLOOD GA S ORDERABLES [facility] [address] [place] [address] * (ABNORMAL) THYROID ANTIBODIES (06/03/2019 8:30 EST) Anti-Thyroglobulin 63(H) <=60 U/mL 2019 10:54 EST [facility] Thyroperoxidase Ab 182(H) <=60 U/mL 2019 10:54 EST [facility] Blood VENOUS BLOOD / Unknown 06/03/2019 8:30 EST 06/04/2019 16:44 EST Provider Unknown CHEMISTRY & BLOOD GA S ORDERABLES Performing Organization Address [facility] Co de Phone Number [facility] [address] [place] [address] documented in this encounter Visit Diagnoses Not on filedocumented in this encounter Care Teams Cosmetology Educator Relationship Specialty Start Date End Date Kenia Hernandez STATION INSTALLER AND REPAIRER [address] [place] [id number] PCP - General 06/04/16 11/29/20 Francy Lowe NP [address] [place] [id number] PCP - General 11/30/20 documented as of this encounter
--- OUTSIDE RECORDS SUMMARY | 2023-11-25 15:30 | XMS_ITS | Continuity of Care Document ---
Author Organization [facility] Address [address] [place] [address] Care Team Providers Care Machine Operator Picker Name Role Phone Primeau IPHCSteven Primary Care Physician [facility] [id number] Date(s): 08/30/23 - 08/30/[address] [address] Encounter Diagnosis Pain in wrist(Discharge Diagnosis) - 08/30/23 Discharge Disposition: Home or Self Care Attending [...] Unknown Active liraglutide Unknown Active 1skin chambers [id number] 3Headache 4Constipation 5GI upset 6GI upset 7Constipation 8Constipation 9Increased depression 10Increases blood sugar Assessment and Plan Extracted from: Title:ED Provider Note Author:Gina Castro Ma, MD Date:08/30/23 Assessment/Plan 1.??Pain in wrist??M25.539 Ordered: Discharge Patient, 08/30/23 15:27:00 EDT, Constant Indicator ?? Patient Education Wrist Pain, Adult Medications Aspi-Cor 81 mg oral delayed release tablet 0 Refill(s) Start Date: 10/29/21 Status: Ordered clonazePAM 1 mg oral tablet 0 Refill(s) Start Date: 12/17/21 Status: Ordered cyclobenzaprine 10 mg oral tablet 10 mg = 1 tab, Oral, TID, PRN as needed for muscle spasm, # 30 tab, 0 Refill(s), Pharmacy: [id number], 165, cm, 12/17/21 12:57:00 [...] Daily, # 45 tab, 3 Refill(s), Pharmacy: [id number], 165, cm, 12/17/21 12:57:00 EDT, Height/Length Dosing, 98.88, kg, 12/17/21 12:57:00 EDT, Weight Dosing Start Date: 01/07/22 Status: Ordered Metoprolol Succinate ER 50 mg oral tablet, extended release 1 tab, Oral, Daily, # 90 tab, 3 Refill(s), Pharmacy: [id number], 165, cm, 12/17/21 12:57:00 [...] [36-38 Deg C ] 36.4 Deg C (08/30/23 3:12 PM) Heart Rate Monitored [60-100 bpm] 84 bpm (08/30/23 3:12 PM) Respiratory Rate [12-24 br/min] 16 br/mi n (08/30/23 3:12 PM) Blood Pressure [90-140/60-90 mmHg] 127/8 2mmHg (08/30/23 3:12 PM) Mean Arterial Pressure, Cuff [65-140 mmH g] 97 mmHg (08/30/23 3:12 PM) Weight Estimated 99.79 kg (08/30/23 3:12 PM) Body Mass Index Estimated 36.61 kg/m2 (08/30/23 3:12 PM) Height/Length Estimated 165.10 cm (08/30/23 3:12 PM) Social History Social History Type Response Tobacco Current everyday tob acco user Tobacco Use:. Sex Female Hospital Discharge Instructions Patient Education 08/30/2023 14:26:35 Wrist Pain, Adult Wrist Pain, Adult There are many things that can cause wrist pain. Some common causes include: ??? An injury to the wrist area, such as a sprain, strain, or fracture. ??? Overuse of the joint. ??? A condition that causes increased pressure on a nerve in the wrist (carpal tunnel syndrome). ??? Wear and tear of the joints that occurs with aging (osteoarthritis). ??? Other types of joint inflammation and stiffness (arthritis). Sometimes, the cause of wrist pain is not known. Often, the pain goes away when you follow instructions from your health care provider for relieving pain at home, such as resting the wrist, icing thewrist, or using a splint or an elastic wrap for a short time. If your wrist pain continues, it is important to tell your health care provider. Follow these instructions at home: If you have a splint or elastic wrap: ??? Wear the splint or wrap as told by your health care provider. Remove it only as told by your health care provider. Ask your health care provider if you may remove it for bathing. ??? Loosen the splint or wrap if your fingers tingle, become numb, or turn cold and blue. ??? Check the skin around the splint or wrap every day. Tell your health care provider about any concerns. ??? Keep the splint or wrap clean. ??? If the splint or wrap is not waterproof: ??? Do not let it get wet. ??? Cover it with a watertight covering when you take a bath or shower. Managing pain, stiffness, and swelling ??? If directed, put ice on the painful area. To do this: ??? If you have a removable splint or wrap, remove it as told by your health care provider. ??? Put ice in a plastic bag. ??? Place a towel between your skin and the bag or between your splint or wrap and the bag. ??? Leave the ice on for 20 minutes, 2???3 times a day. ??? Move your fingers often to reduce stiffness and swelling. ??? Raise (elevate) the injured area above the level of your heart while you are sitting or lying down. Activity ??? Rest your affected wrist as told by your health care provider. ??? Return to your normal activities as told by your health care provider. Ask your health care provider what activities are safe for you. ??? Ask your health care provider when it is safe to drive if you have a splint or wrap on your wrist. ??? Do exercises as told by your health care provider. General instructions ??? Pay attention to any changes in your symptoms. ??? Take imsh-unj-uhifqon and prescription medicines only as told by your health care provider. ??? Keep all follow-up visits as told by your health care provider. This is important. Contact a health care provider if: ??? You have a sudden, sharp pain in the wrist, hand, or arm that is different or new. ??? The swelling or bruising on your wrist or hand gets worse. ??? Your skin becomes red, gets a rash, or has open sores. ??? Your pain does not get better or it gets worse. ??? You have a fever or chills. Get help right away if: ??? You lose feeling in your fingers or hand. ??? Your fingers turn white, very red, or cold and blue. ??? You cannot move your fingers. Summary ??? Wrist pain in an adult has many different causes. ??? If your wrist pain continues, it is important to tell your health care provider. ??? You may need to wear a splint or an elastic wrap for a short period of time. ??? Return to your normal activities as told by your health care provider. Ask your health care provider what activities are safe for you. This information is not intended to replace advice given to you by your health care provider. Make sure you discuss any questions you have with your health care provider. Document Revised: 10/11/2022 Document Reviewed: 03/16/2020 Else[employer] Patient Education ?? 2022 [employer] Physician Emergency department Note * Gina Castro MD: PERFORM Event Display: ED Note Physician Authored Date: [id number] MANISHA FARIAS :1960 Age:63 years Sex:Female Visit Date:08/30/2023 Primary Care Physician: Mervin KWAN, Steven Mccarthy MD Basic Information Time Seen: Gina Castro MD / 08/30/2023 15:10 Chief Complaint Patient had a cardiac cath back in 2019, access through the right wrist. States that there has beenan increase in pain over the last two weeks causing a shooting pain down thumb and first two fingers, also causing knuckles to lock up History Of Present Illness: 62-year-old lady??with chart listed history of coronary artery disease, diabetes,??insomnia, BEN, chronic back pain, presents to the ED with c/o??wrist pain, mainly when she touches the area where she says she had a cath about 4 years ago. She has had pain for 3 weeks.?? Pt points over the base of the thumb where most of the pain is.?? Pain radiates to the thumb Pt also says sometimes she has locking of finger 2 and 3 that she manually unlocks Pt?? had carpal tunnel surgery in that wrist No trauma ?? Physical exam: ?? General: A&Ox3, Calm, no apparent distress, well developed, pleasant and cooperative ?? HEENT: Head ATNC. Eyes: OFELIA. Extraocular Mobility: intact and symmetrical. Conjunctiva: non-injected, anicteric, no discharge.? Extremities: Rt wrist with no deformity, no bruising, no cyanosis, no opening in the skin, there is ttp over themedial part of the anterior wrist, FROM actively. Strength 5/5, sensation intact, 2+cap refill in fingers ?? Neuro: normal tone, normal strength in all 3 other extremities, sensation intact ?? MDM Thorough chart review performed Nursing triage note reviewed Triage vitals reviewed Pt well and non toxic appearing?? Presentation concerning for trigger fingers, possibly more proximal tendon irritation. No concern for cellulitis, no concern for septic joint.?? I recommended pt follows up with orthopedic surgery. She wants to see [place] as she had carpal tunnel surgery there. I told her she was also welcome to f/u here.?? Would not splint at this time in order to keep range of motion and prevent stiffness. Discharge instructions and return precautions discussed, all questions answered. Physical Exam Vitals & Measurements T:??36.4?C ??(Temporal Artery)?? HR:??84??(Monitored)?? RR:??16?? BP:??127/82?? SpO2:??97%?? HT:??165.10??cm?? WT:??99.79??kg??(Estimated)?? BMI:??36.61?? O2 Therapy:??Room air?? Procedure No Qualifying Data Assessment/Plan 1.??Pain in wrist??M25.539 Ordered: Discharge Patient, 08/30/23 15:27:00 EDT, Constant Indicator ?? Patient Education Wrist Pain, Adult Medication Reconciliation Unchanged aspirin (Aspi-Cor 81 mg oral delayed release tablet) ?? clonazePAM (clonazePAM 1 mg oral tablet) ?? cyclobenzaprine (cyclobenzaprine 10 mg oral tablet)1 tab Oral (given by mouth) 3 times a day as needed as needed for muscle spasm. Refills: 0. ?? dexlansoprazole (Dexilant 30 mg [...] infarction: Sister and Brother. Electronically Signed on 08/30/23 03:40 PM Gina Castro MD Emergency department Discharge instructions * Gina Castro MD: PERFORM Event Display: ED Discharge Information Authored Date: [id number] MANISHA FARIAS :1960 Age:63 years Sex:Female Visit Date:08/30/2023 Primary Care Physician: Steven Jordan MD Discharge Instructions We would like to thank you for allowing us to assist you with your healthcare needs. The following includes patient education materials and information regarding your injury/illness. Diagnosis from Today's Visit Pain in wrist Discharge Vitals Temperature??(Temporal Artery) 97.5 ??F (36.4 ??C) Heart Rate??(Monitored) 84 Respiratory Rate?? 16 Blood Pressure?? 127/82?? SpO2?? 97% Height?? 65.00 in (165.10 cm) Weight??(Estimated) 220.04 lb (99.79 kg) BMI?? 36.61 Allergies ADHESIVE TAPE DULoxetine acetaminophen-hydrocodone??(Itching) acetaminophen-oxycodone??(Itching) atorvastatin buPROPion citalopram codeine??(Itching) escitalopram exenatide??(Nausea) ezetimibe-simvastatin indomethacin liraglutide metFORMIN??(Itching) rosuvastatin sertraline??(Chest pain) What to Do Next Instructions from Your Care Team Please follow up with your orthopedic surgeon next week. Take Tylenol for pain and move your wrist as tolerated. Return to the ED for any new or worsening symptoms.?? You were treated today on an emergency basis; it may be coyen to contact your primary care provider to [...] Every week Duration: 4 weeks Education Materials Wrist Pain, Adult There are many things that can cause wrist pain. Some common causes include: ? An injury to the wrist area, such as a sprain, strain, or fracture. ? Overuse of the joint. ? A condition that causes increased pressure on a nerve in the wrist (carpal tunnel syndrome). ? Wear and tear of the joints that occurs with aging (osteoarthritis). ? Other types of joint inflammation and stiffness (arthritis). Sometimes, the cause of wrist pain is not known. Often, the pain goes away when you follow instructions from your health care provider for relieving pain at home, such as resting the wrist, icing thewrist, or using a splint or an elastic wrap for a short time. If your wrist pain continues, it is important to tell your health care provider. Follow these instructions at home: If you have a splint or elastic wrap: ? Wear the splint or wrap as told by your health care provider. Remove it only as told by your healthcare provider. Ask your health care provider if you may remove it for bathing. ? Loosen the splint or wrap if your fingers tingle, become numb, or turn cold and blue. ? Check the skin around the splint or wrap every day. Tell your health care provider about any concerns. ? Keep the splint or wrap clean. ? If the splint or wrap is not waterproof: ? Do not let it get wet. ? Cover it with a watertight covering when you take a bath or shower. Managing pain, stiffness, and swelling ? If directed, put ice on the painful area. To do this: ? If you have a removable splint or wrap, remove it as told by your health care provider. ? Put ice in a plastic bag. ? Place a towel between your skin and the bag or between your splint or wrap and the bag. ? Leave the ice on for 20 minutes, 2???3 times a day. ? Move your fingers often to reduce stiffness and swelling. ? Raise (elevate) the injured area above the level of your heart while you are sitting or lying down. Activity ? Rest your affected wrist as told by your health care provider. ? Return to your normal activities as told by your health care provider. Ask your health care provider what activities are safe for you. ? Ask your health care provider when it is safe to drive if you have a splint or wrap on your wrist. ? Do exercises as told by your health care provider. General instructions ? Pay attention to any changes in your symptoms. ? Take pbfi-ecp-oruadkl and prescription medicines only as told by your health care provider. ? Keep all follow-up visits as told by your health care provider. This is important. Contact a health care provider if: ? You have a sudden, sharp pain in the wrist, hand, or arm that is different or new. ? The swelling or bruising on your wrist or hand gets worse. ? Your skin becomes red, gets a rash, or has open sores. ? Your pain does not get better or it gets worse. ? You have a fever or chills. Get help right away if: ? You lose feeling in your fingers or hand. ? Your fingers turn white, very red, or cold and blue. ? You cannot move your fingers. Summary ? Wrist pain in an adult has many different causes. ? If your wrist pain continues, it is important to tell your health care provider. ? You may need to wear a splint or an elastic wrap for a short period of time. ? Return to your normal activities as told by your health care provider. Ask your health care provider what activities are safe for you. This information is not intended to replace advice given to you by your health care provider. Make sure you discuss any questions you have with your health care provider. Document Revised: 10/11/2022 Document Reviewed: 03/16/2020 Elsevier Patient Education ?? 2022 [employer] Patient/Learning Program Manager Signature Patient Name:MANISHA FARIAS I have received this information and my questions have been answered. Patient/Learning Program Manager Name: Patient/Learning Program Manager Signature: Relationship to Patient: Witness Name/Signature: Date: Electronically Signed on: 08/30/2023 15:28 EDTSigned by:[facility] Emergency department Note * Angelica Funk M: PERFORM Event Display: ED Notes Authored Date: [id number] Patient Care team information Care Team Personnel Name: Steven Jordan MD Position: No Access Member Role: Informed Provider Address: Address: [facility] [address] [place] [address]- Care Team Related Persons Name: ROGELIO FARIAS Address: Home [address] [facility], [id number]
--- OUTSIDE RECORDS SUMMARY | 2023-11-25 15:30 | XMS_ITS | Encounter Summary ---
[place] [address] Care Team Providers Care Clipper Machine Name Role Phone Kaylee Jaquez Primary Care Provider Encounter Details Date Type Department Care Team (Latest Contact Info) Description 11/03/2023 Travel Social History Tobacco Use Types Packs/Day [...] on filedocumented in this encounter Care Teams Clipper Machine Relationship Specialty Start Date End Date Kaylee Jaquez PA [address] [place] [address] PCP - General Family Medicine 01/18/22 documented as of this encounter
--- OUTSIDE RECORDS SUMMARY | 2023-11-25 15:30 | XMS_ITS | Encounter Summary ---
Author Organization [facility] Address [address] [place] [address] Care Team Providers Care Irish Moss Operator Name Role Phone Francy Lowe AUDIO VISUAL FACILITIES ENGINEER Primary Care Provider [phone] Reason for Visit * Reason Onset Date Comments Other 03/05/2021 Encounter Details Date Type Department Care Team (Late st Contact Info) Description 03/05/2021 Telephone [facility] Spine Program - [address] [phone] Fariba Darling PA-C [address] [facility] [place] [address] Other Social History Tobacco Use Types Packs/Day Years [...] encounter Miscellaneous Notes * Telephone Encounter - Froy Anguiano MA - 03/05/2021 [id number] EDT Patient called to inform us that she would not be following up with Fariba Darling PA-C and would be seeing her doctor in [place]. She said she would not be doing the MRI and would like it canceled. I confirmed the patients Identity and that she wanted to cancel the MRI order. Radiology was called following this encounter and the order was canceled. FROY ANGUIANO MA 03/05/2021 14:37 documented in this encounter Plan of Treatment Not on file documented as of this encounter Visit Diagnoses Not on filedocumented in this encounter Care Teams Irish Moss Operator Relationship Specialty Start Date End Date Francy Lowe NP PCP - General 11/30/20 documented as of this encounter
--- OUTSIDE RECORDS SUMMARY | 2023-11-25 15:30 | XMS_ITS | Encounter Summary ---
Author Organization [facility] Address [address] [place] [address] Care Team Providers Care Woodworking Bench Carpenter Name Role Phone Francy Lowe LOOM FIXER Primary Care Provider [phone] Encounter Details Date Type Department Care Team (Late st Contact Info) Description 05/09/2021 Lab Requisition [facility] Pathology & Laboratory Medicine - [address] [phone] Outr Resulting Lab, Provider Social History Tobacco [...] Procedure Name Priority Date/Time Associated Diagnosis Comments ZZCOVID-19 TEST [facility] PCR Today 05/08/2021 15:30 EST COVID-19 TESTING Routine 05/08/2021 15:3 0 EST documented in this encounter Results * COVID-19 TEST [facility] PCR (05/08/2021 15:30 EST) Swab 05/08/2021 15:3 0 EST 05/09/2021 17:07 EST Provider Outr Resulting Lab MICROBIOLOGY - GENERAL ORDERABLES [facility] [address] [place] [address] * COVID-19 TESTING (05/08/2021 15:30 EST) COVID-19 rt-PCR Result Negative Negative 05/10/2021 10:28 EST [facility] Comment: This test has not been FDA cleared or approved. This test has been authorized by FDA under an EUA for use by authorized laboratories. This test has been authorized only for detection of nucleic acid from 2019-nCoV, not for any other viruses or pathogens. This test is only authorized for the duration of the declaration that circumstances exist justifying the authorization of emergency use of in vitro diagnostic tests for detection and/or diagnosis of 2019-nCoV under section 564(b)(1) of Act, 21 U.S.C ?? 360bbb-3(b) (1), unless the authorization is terminated or revoked sooner. Negative results do not preclude 2019-nCoV infection and should not be used as the sole basis for treatment or other patient management decisions. Negative results must be combined with clinical observations, patient history, and epidemiological information. Testing was performed using the latanya SARS-CoV-2 assay ([employer] on the Latanya 6800 System Performing Lab Latanya [address] [facility] Lab 05/10/2021 10:28 EST [facility] Swab 05/08/2021 15:3 0 EST 05/09/2021 17:07 EST Provider Outr Resulting Lab MICROBIOLOGY - GENERAL ORDERABLES [facility] [address] [place] [address] documented in this encounter Visit Diagnoses Not on filedocumented in this encounter Care Teams Woodworking Bench Carpenter Relationship Specialty Start Date End Date Francy Lowe NP PCP - General 11/30/20 documented as of this encounter
--- OUTSIDE RECORDS SUMMARY | 2023-11-25 15:30 | XMS_ITS | Encounter Summary ---
Author Organization [facility] [address] Care Team Providers Care Clarifier Operator Helper Name Role Phone Kaylee Jaquez Primary Care Provider [phone] Reason for Visit * Auth/Cert (Routine) Specialty Diagnoses / Procedures Referred By Jasson t Referred To Contact Diagnoses Gastroparesis villegas's surveillance Procedures PRO UPPER GI ENDOSCOPY, DIAGNOSTIC PRO UPPER GI ENDOSCOPY, BIOPSY PRO UP GI ENDOSCOPY, REMV TUMOR, SNARE PRO ANES, UGI ENDOSCOPY NOS EGD, UPPER GI ENDOSCOPY (WRVU 2.09) Nimesh Alicia MD [facility] [place] [address] [facility] Referral ID Status Reason Start Date Expiration Date Visits Re quested Visits Authorized [id number] 1 1 Encounter Details Date Type Department Care Team (Latest Contact Info) Description 10/03/2023 9:38 AM EDT - 10/03/2023 12:15 PM EDT Hospital Encounter [place] [address] Nimesh Alicia MD [facility] [place] [address] Discharge Disposition: Home Social History Tobacco Use Types Packs/Day Years [...] encounter Discharge Instructions * Discharge Instructions* Sonam Zavala RN - 10/03/2023 11:07 AM EDT Upper [...] the day after the procedure, use an ipel-vtw-fjockyt spray to numb your throat. Sucking on [...] occurs, please contact your Doctor. Please call [phone] before 8pm Mon-Fri with problems, questions or concerns. If you call after 8pm or on weekends, call the Hospital at [phone] and ask to speak to the Rhinologist stone setter metal optical frames and the equipment operator warehouse will contact that person for you. When should you call for help? Call [phone] anytime you think you may need emergency [...] any problems. Where can you learn more? [facility] View your After Visit Summary and more online at [email or web address] If you would like to provide feedback about your hospital experience, please call the Office of Patient and Family Relations at . If you have received this After Visit Summary in error, please immediately return it in person to the department, or notify the [facility] Privacy Office by calling toll free at between the hours of 8AM and 5PM to arrange for our retrieval of the documents at no cost to you. Content Version: 12.2 ?? [phone] [employer]. Care instructions adapted under license by [facility]. If you have questions about a medical condition or this instruction, always ask your healthcare professional. [employer] disclaims any warranty or liability for your [...] the day after the procedure, use an kvtd-woa-mmtfyzz spray to numb your throat. Sucking on [...] occurs, please contact your Doctor. Please call [phone] before 8pm Mon-Fri with problems, questions or concerns. If you call after 8pm or on weekends, call the Hospital at [phone] and ask to speak to the Rhinologist stone setter metal optical frames and the equipment operator warehouse will contact that person for you. When should you call for help? Call [phone] anytime you think you may need emergency [...] any problems. Where can you learn more? [email or web address] View your After Visit Summary and more online at [email or web address] If you would like to provide [...] cost to you. Content Version: 12.2 ?? 5858-2483 [employer]. Care instructions adapted under license by [facility]. If you have questions about a medical condition or this instruction, always ask your healthcare professional. 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 ??Separate Pathology report to follow Nimesh Alicia MD PATHOLOGY/CYTOLOGY O RDERABLES Performing Organization Address [facility]/State/ZIP Co de Phone Number [facility] [place] [address] * Surgical Pathology Report (10/03/2023 10:58 AM EDT) Surgical Pathology Report [id number] ? Location: 4T; EA10; A The signing pathologist has (i) examined the relevant preparation(s) for the specimen(s) and (ii) rendered or confirmed the diagnosis(es). . ?Surgical Pathology DIAGNOSIS A - GE junction,biopsy (Multiple): - ??Squamous esophageal and cardiac mucosa within normal limits. - ??No goblet cell metaplasia is seen. Electronically signed by: ?Desirae ABDUL, Cleopatra Andersen Verified: ??10/14/2023 15:24 ??Pathologist Performed at: ??-[facility] Dept. of Pathology, [place] [address] Cutting Machine Operator Helper: Cleopatra Merrill MD, AP, ??CLIA Certificate: [id number] SPECIMEN(S) SUBMITTED A - GE junction bx's. r/o ?? Villegas's, biopsy (Multiple) CLINICAL INFORMATION 63-year-old with? ??Villegas's SPECIMEN PROCESSING A - Labeled/Fixativ e: GE junction BX, rule out Villegas's, formalin. Quantity/Size: Four, averaging 0.4 cm. Tissue Description: Soft, pink-red tissues. Sections/Proces sing: Submitted in toto ??in 1 cassette labeled A1. ??sns [facility] 10/03/2023 10:5 8 AM EDT Nimesh Alicia MD PATHOLOGY/CYTOLOGY O RDERABLES [facility] [place] [address] * UPPER GI ENDOSCOPY (10/03/2023 10:50 AM EDT) UPPER GI ENDOSCOPY [facility] Endoscopy ___ Procedure Date: 10/03/2023 10:50 AM ? Patient Name: Danielle Mills ? Date of : 1960 ? Age: 63 ? Order #: [id number] ? Instrument Name: [id number] ? ___ Procedure: ? Upper GI endoscopy Indications: ? Gastro-esophageal reflux disease, ? Follow-up of Villegas's esophagus Providers: ? Carlos Christian ? Evelyne, SHAR, Carlos Veliz Referring : ?Kaylee Jaquez Medicines: ? Propofol per Anesthesia [...] Procedure Code(s): ? --- Professional --- ? 30895, Esophagogastroduode noscopy, ? flexible, transoral; with biopsy, ? single or multiple Diagnosis Code(s): ? --- Professional --- ? K21.9, Gastro-esophageal reflux ? disease without esophagitis ? K22.70, Villegas's esophagus without ? dysplasia ? --- Technical --- ? K21.9, Gastro-esophageal reflux ? disease without esophagitis ? K22.70, Villegas's esophagus without ? dysplasia CPT copyright 2021 [employer]. All rights reserved. The codes documented in this report are preliminary and upon highway safety engineer review may be revised to meet current compliance requirements. Attending Participation: ? I personally performed the entire procedure. ? Nimesh Alicia, 10/03/2023 11:02:52 AM Number of Addenda: 0 Note Initiated On: 10/03/2023 10:50 AM [facility]ATION 10/03/2023 10:5 0 AM EDT Unknown GENERAL SURGICAL ORD ERABLES Performing Organization Address [facility] Co de Phone Number [facility] * POCT Glucose (10/03/2023 10:27 AM EDT) POC Glucose 114 65 - 199 mg/dL [facility] Comment: Supplemental ranges: <140 mg/dL before meals <180 mg/dL all other times of the day Blood 10/03/2023 10:2 7 AM EDT 10/03/2023 10:27 AM EDT Nimesh Alicia MD POINT OF CARE TEST O RDERABLES Performing Organization Address [facility] Co de Phone Number [facility] [place] [address] documented in this encounter Visit Diagnoses Not [...] CRNA) documented in this encounter Care Teams Clarifier Operator Helper Relationship Specialty Start Date End Date Kaylee Jaquez PA [address] [address] PCP - General Family Medicine 01/18/22 documented as of this encounter
--- OUTSIDE RECORDS SUMMARY | 2023-11-25 15:30 | XMS_ITS | Encounter Summary ---
Author Organization [facility] Address [address] [place] [address] Care Team Providers Care Home Hospice Aide Name Role Phone Kenia Hernandez EGG SEPARATOR Primary Care Provider [phone] Encounter Details Date Type Department Care Team (Late st Contact Info) Description 09/09/2017 Results Only [facility] [phone] Tom Huber MD [address] [place] [id number] Social History Tobacco Use Types Packs/Day Years Used Date Smoking Tobacco: Never Assessed Sex and Gender Information Value Date Recorded Sex Assigned at Not on file Gender Identity Not on file Sexual Orientation Not on file documented as of this encounter Plan of Treatment Not on file documented as of this encounter Procedures Procedure Name Priority Date/Time Associated Diagnosis Comments SURGICAL PATHOLOGY Routine 09/09/2017 0:02 EDT documented in this encounter Results * SURGICAL PATHOLOGY (09/09/2017 0:02 EDT) Pathology Report: SURGICAL PATHOLOGY REPORT Reports generated via electronic interface contain original data; however they are lacking the format of the original report. Caution should be taken when reading/interpret ing unformatted reports. Name: ? DANIELLE FARIAS ? Accession #: ? [id number] ? : ? 1960 (Age: 57) ??F ? Collect Date: ? 09/09/2017 ? Location: ? [facility] ? Receive Date: ? 09/09/2017 ? Provider: TOM HUBER II, MD Copy to: SHASTA ARVIZU MD ? Final Pathologic Diagnosis: A. ESOPHAGUS, DISTAL, BIOPSY: - Intestinal metaplasia in a background of active reflux esophagitis. - Negative for dysplasia. B. STOMACH, ANTRUM, BIOPSY: - Focal intestinal metaplasia background of reactive (chemical) gastropathy. - Negative for dysplasia. C. SMALL BOWEL, JEJUNUM, BIOPSY: - ??Focal villous lymphangiectasia; otherwise no specific pathologic features. D. STOMACH, BODY, BIOPSY: - Gastric body mucosa with no specific pathologic features. Document reviewed and electronically signed by: FROY CHIRINOS MD Report ??Date: 09/10/2017 19:33 By the signature above, the attending physician certifies that he/she has personally conducted a gross and/or microscopic examination of the described specimens and rendered or confirmed the above diagnosis. Specimen(s) Received: A. ??Johnson's distal esophagus B. ??Antrum C. ??Jejunum bx D. ??Body bx Clinical History: GERD, HH, ? Johnson's, dysphagia; G itis Gross Description: A. ?Received in formalin labelled with proper patient identification (initials P, L) and Johnson's distal esophagus are four wright irregular tissues averaging 0.2 x 0.2 x 0.2 cm. Entirely submitted in A1. B. ?Received in formalin labelled with proper patient identification (initials P, L) and antrum are two wright irregular tissues, 0.1 x 0.1 x 0.1 cm and 0.3 x 0.3 x 0.2 cm. Entirely submitted in B1. C. ?Received in formalin labelled with proper patient identification (initials P, L) and jejunum bx are two wright irregular tissues, 0.3 x 0.3 x 0.3 cm and 0.4 x 0.2 x 0.2 cm. Entirely submitted in C1. D. ?Received in formalin labelled with proper patient identification (initials P, L) and body bx are three wright irregular tissues ranging from 0.1 x 0.1 x 0.1 cm to 0.4 x 0.2 x 0.1 cm. Entirely submitted in D1. JUAN PABLO Holt (ASCP) 09/09/2017 7:35 AM End of Report [facility] 09/09/2017 0:02 EDT 09/09/2017 0:02 EDT Tom Huber MD PATHOLOGY ORDERABLES Performing Organization Address City/State/[facility] Co de Phone Number [facility] [address] [place] [address] documented in this encounter Visit Diagnoses Not on filedocumented in this encounter Care Teams Home Hospice Aide Relationship Specialty Start Date End Date Kenia Hernandez, EGG SEPARATOR [address] [place] [address] PCP - General 06/04/16 11/29/20 documented as of this encounter
--- OUTSIDE RECORDS SUMMARY | 2023-11-25 15:31 | XMS_ITS | Encounter Summary ---
Author Organization [facility] [place] [address] Care Team Providers Care Animal Shelter Supervisor Name Role Phone Kaylee Jaquez Primary Care Provider [phone] Reason for Visit * Diagnostic Test (Routine) - Canceled Specialty Diagnoses / Procedures Referred By Contac t Referred To Contact Cardiology Diagnoses Chest pain, unspecified type ASCVD (arteriosclerotic cardiovascular disease) Procedures Nuclear Exercise Stress Cardiology Lc Garcia MD [facility] [place] [address] [facility] [place] [address] Referral ID Status Reason Start Date Expiration Date Visits Requested Visits Authorized [id number] Canceled Specialty Service Requested 05/30/2023 05/29/2024 1 1 Encounter Details Date Type Department Care Team (Latest Contact Info) Description 06/12/2023 8:59 AM EST Hospital Encounter Non-Invasive [place] [address] [facility] [place] [address] Chest pain, unspecified type; ASCVD (arteriosclerotic cardiovascular disease) Discharge Disposition: Home Social History Tobacco Use [...] Sig Dispensed Refills Start Date End Date celecoxib (CeleBREX) 100 mg capsule Take 100 [...] 0.5 mg by mouth daily. 2 02/26/2018 isosorbide mononitrate CR (Imdur) 30 mg ER 24 hr tabletIndications:NST PAULETTE (non-ST elevated myocardial infarction) Take 2 tablets by mouth daily. 90 tablet 3 05/30/2023 07/28/2023 liothyronine (Cytomel) 5 mcg tablet Take 1 tablet by mouth daily. 90 tablet 04/30/2023 07/30/2023 dexlansoprazole (Dexilant) [address] capsule Take 1 capsule by mouth daily. 90 capsule 1 03/11/2023 07/07/2023 prucalopride (Motegrity) 1 mg tabletIndications:Gas troparesis Take 2 tablets by mouth daily. 180 tablet 3 09/23/2022 11/17/2023 losartan (Cozaar) 25 mg tabletIndications:NST PAULETTE (non-ST elevated myocardial infarction) Take 0.5 tablets by mouth daily. 45 tablet 3 09/04/2022 11/03/2023 metoprolol succinate XL (Toprol-XL) 50 mg ER 24 hr tabletIndications:NST PAULETTE (non-ST elevated myocardial infarction) Take 1 tablet by mouth daily. 90 tablet 3 09/04/2022 07/30/2023 Repatha Pushtronex 420 mg/3.5 mL wearable injectorIndications:H yperlipidemia, unspecified hyperlipidemia type 3.5 mLs by subcutaneous (via wearable injector) route every 30 days. 3.5 mL 11 09/04/2022 11/07/2023 Ozempic 2 mg/dose (8 mg/3 mL) Pen Injector Inject 2 mg subcutaneously once a week. 06/26/2022 09/16/2023 BD ULTRA-FINE ORIG PEN NEEDLE 29 gauge x 1/2 Needle INJECT INSULIN SUBCUTANEOUSLY DIRECTED. 3 10/17/2017 11/03/2023 documented as of this encounter Plan of Treatment Not on file documented as of this encounter Procedures Procedure Name Priority Date/Time Associated Diagnosis Comments NUCLEAR PHARMACOLOGIC STRESS CARDIOLOGY Routine 06/12/2023 11:11 AM EST Chest pain, unspecified type ASCVD (arteriosclerotic cardiovascular disease) documented in this encounter Results * Nuclear Pharmacologic Stress Cardiology (06/12/2023 11:11 AM EST) Anatomical Region Laterality Modality Other Lc Garcia MD CARDIAC SERVICES ORD ERABLES documented in this encounter Visit Diagnoses Diagnosis Chest pain, unspecified type ASCVD (arteriosclerotic cardiovascular disease) Unspecified cardiovascular disease documented in this encounter Care Teams Animal Shelter Supervisor Relationship Specialty Start Date End Date Kaylee Jaquez PA [address] [place] [address] PCP - General Family Medicine 01/18/22 documented as of this encounter
--- OUTSIDE RECORDS SUMMARY | 2023-11-25 15:31 | XMS_ITS | Encounter Summary ---
Author Organization [facility] [place] [address] Care Team Providers Care Lens Examiner Name Role Phone Kaylee Jaquez Primary Care Provider [phone] Reason for Visit * Reason Onset Date Comments Medication Refill 07/30/2023 Encounter Details Date Type Department Care Team (Late st Contact Info) Description 07/30/2023 Refill [place] [address] Chiquis Chen MD [facility] [place] [address] Social History Tobacco Use Types Packs/Day Years [...] on filedocumented in this encounter Care Teams Lens Examiner Relationship Specialty Start Date End Date Kaylee Jaquez PA [address] [facility] [place] [address] PCP - General Family Medicine 01/18/22 documented as of this encounter
--- OUTSIDE RECORDS SUMMARY | 2023-11-25 15:31 | XMS_ITS | Encounter Summary ---
Author Organization [facility] [place] [address] Care Team Providers Care Forklift Wheel Loader Name Role Phone Kaylee Jaquez Primary Care Provider [phone] Encounter Details Date Type Department Care Team (Late st Contact Info) Description 01/31/2023 Telephone [facility] [place] [phone] Fariba Palacio Social History Tobacco Use Types Packs/Day Years [...] encounter Miscellaneous Notes * Telephone Encounter - Fariba Palacio - 01/31/2023 1:29 PM EDT LVM on 01/31/23 in regards to rescheduling an appointment with Kayli Rader APRN from 02/14/23. Please call [phone] documented in this encounter Plan of Treatment Not on file documented as of this encounter Visit Diagnoses Not on filedocumented in this encounter Care Teams Forklift Wheel Loader Relationship Specialty Start Date End Date Kaylee Jaquez PA [address] [place] [address] PCP - General Family Medicine 01/18/22 documented as of this encounter
--- OUTSIDE RECORDS SUMMARY | 2023-11-25 15:31 | XMS_ITS | Encounter Summary ---
[place] [address] Care Team Providers Care Filer Finish Name Role Phone Kaylee Jaquez Primary Care Provider Reason for Referral * Diagnostic Test (Routine) - Closed Specialty Diagnoses / Procedures Referred By Contac t Referred To Contact Radiology Diagnoses Chest pain, unspecified type ASCVD (arteriosclerotic cardiovascular disease) Procedures NM Exercise Stress CT Component Lc Garcia MD [facility] [place] [address] [place] [address] Referral ID Status Reason Start Date Expiration Date V isits Requested Visits Authorized [id number] Closed Specialty Service Requested 05/30/2023 11/27/2024 1 1 Reason for Visit * Diagnostic Test (Routine) - Closed Specialty Diagnoses / Procedures Referred By Contac t Referred To Contact Radiology Diagnoses Chest pain, unspecified type ASCVD (arteriosclerotic cardiovascular disease) Procedures NM Exercise Stress CT Component Lc Garcia MD [facility] [place] [address] [facility] [place] [address] Referral ID Status Reason Start Date Expiration Date V isits Requested Visits Authorized [id number] Closed Specialty Service Requested 05/30/2023 11/27/2024 1 1 Encounter Details Date Type Department Care Team (Latest Contact Info) Description 06/12/2023 9:00 AM EST - 06/12/2023 11:59 PM EST Hospital Encounter [place] [phone] Lc Garcia MD [facility] [place] [address] Chest pain, unspecified type; ASCVD (arteriosclerotic cardiovascular [...] Procedure Name Priority Date/Time Associated Diagnosis Comments NM EXERCISE STRESS CT COMPONENT Routine 06/12/2023 11:32 AM EST Chest pain, unspecified type ASCVD (arteriosclerotic cardiovascular disease) documented in this encounter Results * NM Exercise Stress CT Component (06/12/2023 11:32 AM EST) Anatomical Region Laterality Modality Nuclear Medicine Impressions 06/12/2023 2:58 PM EST 1. ??No ischemia or scar. 2. ??Left ventricular function is normal. Preliminary report signed by: Keri Yosvany at 06/12/2023 2:36 PM I have personally reviewed the image(s) and the resident's interpretation and agree with the findings, Neto Hinson MD at 06/12/2023 2:58 PM Thank you for letting us participate in the care of this patient. ??If you are a health care provider and have any questions regarding this report, please contact the number below. ??For patients who have questions please contact the health post acute care nurse practitioner that requested your imaging first. ? Narrative 06/12/2023 2:58 PM EST EXAMINATION: NM PHARMACOLOGIC STRESS AND REST MYOCARDIAL PERFUSION CLINICAL HISTORY: Chest pain/anginal equiv, 10yr CHD risk > 20%, EST candidate R07.9, Chest pain, unspecified - I25.10, Atherosclerotic heart disease of [place] coronary artery without angina pectoris TECHNIQUE: During rest, 7.8 mCi of technetium-99 sestamibi were administered intravenously. Approximately 15 minutes later, SPECT images of the heart were obtained with reconstruction in the short, vertical long and horizontal long axes. The patient was then administered Regadenoson 400 mcg intravenously over 20 seconds followed 20 seconds later by radionuclide tracer. ??26.1 mCi of technetium-99m sestamibi was then administered intravenously. Images of the heart were then again obtained with SPECT reconstruction. A low dose CT scan was acquired for the purpose of attenuation correction. COMPARISON: None FINDINGS: No fixed or reversible perfusion defects are present. Functional analysis: Myocardial function: There is normal wall motion and wall thickening. Left ventricular ejection fraction: 72 % (normal greater than 50%) INCIDENTAL CT FINDINGS: Aortic and coronary calcification. Evidence of coronary artery stent. 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 Approximately 15 minutes later, SPECT images of the heartwere obtained with reconstruction in the short, vertical long and horizontallong axes. The patient was then administered Regadenoson 400 mcg intravenously over20 seconds followed 20 seconds later by radionuclide tracer. 26.1 mCi of technetium-99m sestamibi was then administered intravenously. Images ofthe heart were then again obtained with SPECT reconstruction. A low dose CT scan was acquired for the purpose of attenuationcorrection. COMPARISON: None FINDINGS: No fixed or reversible perfusion defects are present. Functional analysis: Myocardial function: There is normal wall motion and wall thickening. Left ventricular ejection fraction: 72 % (normal greater than 50%) INCIDENTAL CT FINDINGS: Aortic and coronary calcification. Evidence of coronary artery stent. IMPRESSION 1. No ischemia or scar. 2. Left ventricular function is normal. Preliminary report signed by: Keri Bar at 06/12/2023 2:36 PM I have personally reviewed the image(s) and the resident's interpretationand agree with the findings, Neto Hinson MD at 06/12/2023 2:58 PM Thank you for letting us participate in the care of this patient. If youare a health care provider and have any questions regarding this report,please contact the number below. For patients who have questions please contactthe health post acute care nurse practitioner that requested your imaging first. Lc Garcia MD [facility] [place] ORDERABLES documented in this encounter Visit Diagnoses Diagnosis Chest pain, unspecified type ASCVD (arteriosclerotic cardiovascular disease) Unspecified cardiovascular disease documented in this encounter Care Teams Filer Finish Relationship Specialty Start Date End Date Kaylee Jaquez PA [address] [place] [address] PCP - General Family Medicine 01/18/22 documented as of this encounter
--- OUTSIDE RECORDS SUMMARY | 2023-11-25 15:31 | XMS_ITS | Encounter Summary ---
[facility] [place] [address] Care Team Providers Care Painter Bottom Name Role Phone Kaylee Jaquez Primary Care Provider [phone] Reason for Visit * Reason Comments Medication Refill Encounter Details Date Type Department Care Team (Late st Contact Info) Description 07/27/2023 Refill Cardiology at [address] [id number] Lc Garcia MD [facility] [place] [address] Medication Refill Social History Tobacco Use Types [...] unspecified documented in this encounter Care Teams Painter Bottom Relationship Specialty Start Date End Date Kaylee Jaquez PA [address] [place], [place] [id number] PCP - General Family Medicine 01/18/22 documented as of this encounter
--- OUTSIDE RECORDS SUMMARY | 2023-11-25 15:31 | XMS_ITS | Encounter Summary ---
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 Kaylee Jaquez PA [address] [place] [address] [facility] End[facility] [address] [place] [address] Referral ID Status Reason Start Date Expiration Date V isits Requested Visits Authorized [id number] Closed Consult, Test & Treat PCP Updated and/or Approved 05/22/2023 05/21/2024 6 6 Encounter Details Date Type Department Care Team (Latest Contact Info) Description 05/22/2023 Transcribe Orders eDH Incoming Referrals [phone] Kaylee Jaquez PA [address] [place] [address] 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 Social History Tobacco Use Types Packs/Day Years [...] as of this encounter Plan of Treatment Scheduled Referrals Name Type Priority Associated Diagnoses Order Schedule Referral to Gastroenterology Outpatient Referral Routine 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
--- OUTSIDE RECORDS SUMMARY | 2023-11-25 15:31 | XMS_ITS | Encounter Summary ---
[place] [address] Care Team Providers Care Compliance Auditor Name Role Phone Kaylee Jaquez Primary Care Provider Encounter Details Date Type Department Care Team (Latest Contact Info) Description 07/20/2023 Travel Social History Tobacco Use Types Packs/Day [...] on filedocumented in this encounter Care Teams Compliance Auditor Relationship Specialty Start Date End Date Kaylee Jaquez PA [address] [facility] [place] [address] PCP - General Family Medicine 01/18/22 documented as of this encounter
--- OUTSIDE RECORDS SUMMARY | 2023-11-25 15:31 | XMS_ITS | Encounter Summary ---
Author Organization [facility] [place] [address] Care Team Providers Care Bell Ringer Name Role Phone Kyalee Jaquez Primary Care Provider [phone] Encounter Details Date Type Department Care Team (Late st Contact Info) Description 07/31/2023 11:30 AM EDT Office Visit [place] [id number] Marta Cabral MD [facility] [place] [address] Type 2 diabetes, controlled, with neuropathy; Delano's thyroiditis; Vitamin D deficiency; 3-vessel CAD Social History Tobacco Use Types Packs/Day Years [...] Sign Reading Time Taken Comments Blood Pressure 91/62 07/31/2023 11:14 AM EDT Pulse 80 07/31/2023 11:14 AM EDT Temperature 36.8 ??C (98.3 ??F) 07/31/2023 1 1:14 AM EDT Respiratory Rate - - Oxygen Saturation 97% 07/31/2023 11: 14 AM EDT Inhaled Oxygen Concentration - - Weight 101.7 kg (224 lb 3.2 oz) 024 11:14 AM EDT Height 165.1 cm (5' 5) 07/31/2023 11:1 4 AM EDT Body Mass Index 37.31 07/31/2023 11:14 AM EDT documented in this encounter Patient Instructions * Patient Instructions* Marta Cabral MD - 07/31/2023 11:30 AM EDT Recent Results (from the past 24 hour(s)) LDL Cholesterol, Direct Result Value Ref Range LDL Chol Direct 43 mg/dL Vitamin D, 25-Hydroxy Result Value Ref Range 25-OH Vit D Total 20 (L) 21 - 100 ng/mL 25-OH Vit D Interp Deficient TSH [facility] Result Value Ref Range TSH 1.59 0.27 - 4.20 mcIU/mL Hemoglobin A1c Result Value Ref Range Hemoglobin A1C 6.9 (H) 4.3 - 5.6 % Est Avg Gluc 150 mg/dL Addendum: lab showed low vitamin D at 20 (normal 30-100) not good for bone or your hip => to double OTCvitamin D from 2,000iu to 4,000-5,000 iu daily for now. MARTA CABRAL MD PLAN: 1. Medication: Patient will continue taking liothyronine 5 mcg daily. *Previously, LT4 made her feel very depressed. T3 (short-acting active form) seems to help with some of her psych symptoms & depression. She knows to take thyroid pills on an empty stomach at least 1/2 h before breakfast and separate from iron, calcium or multivitamin-multimineral supplement to ensure full absorption of her thyroid medication. Patient was advised of proper dosage, how to take the medication properly, precautions, and potential complication of the medication prescribed. Target TSH 0.5-1.5 or around 1.0 and <2.0 for her weight and fatigue issues. Ok to continue Ozempic 2.0 mg weekly for her T2DM and obesity.and may reduce to 1 mg sc weekly if she has worsening gastroparesis - better lately (*already stopped taking glimiperide 4 mg 2x/day last year and off insulin since we started victoza). To cont to eat low carb low gluten diet. Patient will continue all other medications Ideally she should resume using CPAP at night to reduce daytime fatigue for her BEN and to quit smoking completely. 2. To eat low fat/controlled carb and healthy diet as well as exercise as tolerated to keep weight down and be able to cut back on insulin dose further. 3. Lab: already checked lab after visit today as ordered for TSH and A1c, etc Orders Placed This Encounter Procedures Hemoglobin A1c TSH [facility] Vitamin D, 25-Hydroxy LDL Cholesterol, Direct X-ray/Imaging study: Office Thyroid ultrasound for thyroid nodule size after 2-4 year at our office(by the same gettering filament machine operator). 4. RTC: 1-2 years for thyroid US and DM and make sure that she continue lose wt further (goal wt is185 lbs) documented in this encounter Progress Notes * Marta Cabral MD - 07/31/2023 11:30 AM EDT Images from the original note were not included. Office Thyroid Ultrasound: Date: 07/31/23 Indication: Rt thyroid nodule and Delano's thyroiditis - to assess nodule size after 1.5 yrs Comparison: 05/30/21, 12/06/19 at our clinic 10/22/19 US from outside at [facility]. Procedure: Real-time ultrasonography limited to the thyroid gland and lateral neck area with and without color doppler were obtained using a [employer] Flex Focus 400 US machine and an HFL38/15-6 broadband linear array transducer. All measurements are given as Longitudinal x Anterior-Posterior (A-P) x Transverse The right lobe measures 4.0x1.5x1.2 cm (was 3.4x1.6x1.8 cm on 05/30/21, 3.8x1.3x1.3 cm on 12/06/19) The left lobe measures 3.1x1.4x0.9 cm (was 2.9x1.5x0.9 cm on 05/30/21, 3.4x1.0x0.9 cm on 12/06/19) Isthmus thickness 0.4 cm (A-P dimension) The overall thyroid gland is slightly heterogeneous with normal vascularity. No goiter. There is a small spongiform nodule in the right mid-lower pole and a few mixed cysts in the right lobe and 2 tiny colloid cysts identified in the left lobe. #1 the right mixed solid/cystic, spongiform nodule is measured 1.07x0.7x0.7 cm (was 1.0x0.6x0.6 cm on 05/30/21; 1.2x0.7x0.7 cm on 12/06/19 and 1.1 cm at outside report on 10/22/19) with colloid crystalsfloating in the small cystic portions (not micro-calcifications). It has distinct smooth borders and avascular on color doppler with benign appearance. There is a small isthmus nodule of 0.7x0.6x0.5 cm very superficial with benign appearance There are 2 tiny cysts of 0.1-0.2 cm in the left lobe. Impression: Slightly small thyroid gland size without goiter or suspicious nodule. The small right mixed nodule with colloid crystals appears benign and stable in size 1.0-1.1 cm after 2 years (was 1.2 cm prior in 2019) Rec : Monitor thyroid function and will repeat US study only as needed in 2-4 years. FNA of the mixed nodule is rec'd only if it's enlarging in size >1.5-2.0 cm in the future. Marta Cabral MD, PhD, FACE, FACP ANES POST EVAL Endocrinology Follow-up Note Date of Visit: 07/31/2023 Patient: Name: Danielle Mills : 1960 PCP: JUAN PABLO Waterman Danielle Mills was seen in the Endocrine clinic in person for: Autoimmune Delano's thyroiditiswith thyroid nodule with stable or smaller nodule size at 1.0 cm after 1.5 yrs on US 05/30/21 and stable at 1.07 cm today after 2 yrs interval. She also has type 2 diabetes and weight issues with goodwt loss ~50-70 lbs after using victoza -> ozempic pen, already stopped insulin with A1c down from 8.2 to 6.1-6.5% excellent. Addendum 09/16/23:eDH messages Good morning, Ozempic has done wonders for my A1C but it???s making my gastoparesis worse. I can???t have normal bowel movements, I???m always feeling bloated. What is a good medication, besides going back on insulin, that we could try? I haven???t spoken with my GI doctor yet, but I do intend to. Thank you Danielle Mcgheeier => Better to lower ozempic dose from 2mg to 0.5mg or 1 mg weekly then. Other GLP1 will cause the same side effects/ Just have to balance the benefit and side effects to find the right dose you have benefit with least side effects. MARTA CABRAL MD HISTORY OF PRESENT ILLNESS: Patient is a very pleasant 63 y.o. female who initially presented to us on 10/21/19 for evaluation of autoimmune Delano's thyroiditis with rising TPO Ab from 182 in May to 324 in early October 2019 and normal TSH 1.75-2.25 in euthyroid. However, she was having all hypothyroid symptoms and already tried to eat healthier but unable to lose weight. She feels very fatigue with dry skin, scalp hair loss, mood swing and depressed mood when she tried to take levothyroxine (LT4) but ok with a low dose liothyronine (T3). Even a small dose of levothyroxine caused her to feel very depressed, so we switched to low dose cytomel 5 mcg qd instead since 11/01/19. Her noted improvement and she feels less sleepy without constipation since then. She also has T2DM with good control on lantus 100u => down to 86u qAM and tapered more after wt loss of 35+25 lbs as she cut back on carb intake plus using ozempic pen 2 mg weekly. Target is to keep fasting BG 80-140 range without low to avoid wt gain. She could not tolerate metformin, byetta orJardiance with yeast infection. Her A1c has been better 6.1-6.8% at target. She was diagnosed with BEN and unable to use CPAP due to more sinus issue so some of her daytime fatigue could be related to BEN. Patient has FH of thyroid problem on mother side but no family history of thyroid cancer that patient is aware of. No previous head and neck irradiation and does not take other supplements or medications that can cause low thyroid. She noticed mild goiter, R >L with some neck discomfort and occasional difficulty swallowing. Thyroid US at [facility] on 10/22/19 showed a Rt thyroid nodule of 1.1 cm and the others were < 1 cm with rec to FU in 6 mo. Since she has underlying Delano's thyroiditis we will need to r/o psuedonodule and to look at the US images realtime to see if it's colloid or calcification, etc. We therefore did office US on 12/06/19 for nodule characteristics and no need for FNA biopsy for benign appearing spongiform nodule of about 1 cm - stable on last US in May 2021. Thyroid US at [facility] Radiology (10/22/19) before taking thyroid Rx showed a Rt thyroid nodule of 1.1 cmand the others were < 1 cm with rec to FU in 6 mo. Recent labs: 06/03/19 10/13/19 07/29/22 1/424 A1c 8.2%H 6.1% 6.5% 6.5% TSH 2.25 1.75 1.27 FT4 0.96 0.96 still borderline low FT3 3.3 4.4 (nl 2.8-5.3) TPO Ab 182H 324H Tg AB 63H 61H Fatigue - better Weight gain - better & lost wt from 274 to 210-220s lbs on GLP1 (oempic 2 mg weekly) which is excellent Intolerance to cold - better Dry skin - better in her LEs constipation - better Menstrual irregularities - No, already menopause (s/p LISA at age 34 in 1994) Muscle and joint pain - Yes Sleep disturbances - BEN not on CPAP any more for a year due to sinus Forgetfulness - some Globus sensation - some Difficulty swallowing - occasionally Difficulty breathing - no Hoarseness or voice change - No REVIEW OF SYSTEMS: as per HPI, all other systems reviewed and negative PAST MEDICAL HISTORY Patient Active Problem List Diagnosis Code Type 2 diabetes mellitus E11.9 HLD (hyperlipidemia) E78.5 Gastroesophageal reflux disease with hiatal hernia K21.9, K44.9 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 90 tablet 3 isosorbide mononitrate CR (Imdur) 30 mg ER 24 hr tablet Take 1 tablet by mouth once daily (Patient taking differently: Take 60 mg by mouth daily.) 90 tablet 1 terbinafine (LamISIL) 250 mg tablet Take 1 tablet by mouth daily. predniSONE (Deltasone) 10 mg tablet Take 4 tablets by mouth x 4 days, take 3 tablets by mouth x 3 days, take 2 tablets by mouth x 2 days, take 1 tablet by mouth x 1 day 30 tablet 0 dexlansoprazole (Dexilant) [address] capsule Take 1 capsule by mouth daily. 90 capsule 1 liothyronine (Cytomel) 5 mcg tablet Take 1 tablet by mouth daily. 90 tablet 0 prucalopride (Motegrity) 1 mg tablet Take 2 tablets by mouth daily. 180 tablet 3 losartan (Cozaar) 25 mg tablet Take 0.5 tablets by mouth daily. 45 tablet 3 Repatha Pushtronex 420 mg/3.5 mL wearable injector 3.5 mLs by subcutaneous (via wearable injector) route every 30 days. 3.5 mL 11 Ozempic 2 mg/dose (8 mg/3 mL) Pen Injector Inject 2 mg subcutaneously once a week. nitroGLYcerin (Nitrostat) 0.4 mg Tablet, Sublingual Place 0.4 mg under the tongue every 5 minutes as needed for Chest pain. aspirin 81 mg Tablet, Chewable Take 81 mg by mouth daily. 90 tablet 0 acetaminophen (TYLENOL) 500 mg Tablet Take 1,000 mg by mouth as needed for Pain. amoxicillin (AMOXIL) 500 mg Tablet Take 4 tablets by mouth 1 hour prior to procedure 12 tablet 2 clonazePAM (KLONOPIN) 0.5 mg Tablet Take 0.5 mg by mouth daily. 2 BD ULTRA-FINE ORIG PEN NEEDLE 29 gauge x 1/2 Needle INJECT INSULIN SUBCUTANEOUSLY DIRECTED. 3 celecoxib (CeleBREX) 100 mg capsule Take 100 mg by mouth 2 times daily. No current facility-administered medications on file prior to visit. Social History Social History Socioeconomic History Marital status: Spouse name: Not on file Number of children: Not on file Years of education: Not on file Highest education level: Not on file Occupational History Not on file Tobacco Use Smoking status: Every Day Packs/day: 0.50 Years: 45.00 Additional pack years: 0.00 Total pack years: 22.50 Types: Cigarettes Smokeless tobacco: Never Tobacco comments: Quit but family member and she started smoking again 08/01/21 Vaping Use Vaping Use: Never used Substance and Sexual Activity Alcohol use: Not Currently Comment: ocassional Drug use: Not on file Comment: no drugs since 1990 no IV drug use Sexual activity: Not on file Other Topics Concern Not on file Social History Narrative Not on file Social Determinants of Health Financial Resource Strain: Not on file Food Insecurity: Not on file Transportation Needs: Not on file Physical Activity: Not on file Intimate Partner Violence: Not on file Housing Stability: Not on file Family History +DM2, thyroid PHYSICAL EXAM: BP 91/62 (BP Location (NBP): Right arm, Patient Position: Sitting, BP Cuff Sizes: Large Adult (32-43 cm)) Pulse 80 Temp 36.8 ??C (98.3 ??F) (Temporal) Ht 165.1 cm (5' 5) Wt 101.7 kg (224 lb 3.2 oz) SpO2 97% BMI 37.31 kg/m?? Appearance: Patient is very pleasant white female, obese, clinically euthyroid, not in acute distress Skin - normal in texture and temperature HEENT - PERRLA, EOMI, no lid lag or exophthalmos. No hoarseness of voice or stridor. Neck - supple, no goiter or nodule, no lymphadenopathy. Extremities - no pitting edema Neuro - Non-focal. No proximal muscle weakness. Addendum: Recent Results (from the past 24 hour(s)) LDL Cholesterol, Direct Result Value Ref Range LDL Chol Direct 43 mg/dL Vitamin D, 25-Hydroxy Result Value Ref Range 25-OH Vit D Total 20 (L) 21 - 100 ng/mL 25-OH Vit D Interp Deficient TSH [facility] Result Value Ref Range TSH 1.59 0.27 - 4.20 mcIU/mL Hemoglobin A1c Result Value Ref Range Hemoglobin A1C 6.9 (H) 4.3 - 5.6 % Est Avg Gluc 150 mg/dL Good thyroid and LDL with reasonable A1c 6.9% (target <7%) but low vitamin D at 20 (normal 30-100) not good for bone or your hip. Please double your vitamin D from 2,000iu to 4,000-5,000 iu daily for now. MARTA CABRAL MD DIAGNOSIS: 63 y.o. lady with confirmed Delano's thyroiditis with elevated TPO (182-324) and Tg antibodies (61-63) twice, so there is no need to follow the antibody titers any more as they are only used for the diagnosis which is definite. She has had normal TSH 1.75-2.25 in euthyroid but borderline low FT4at 0.96 x2 and now low at 0.8 (FT3 would be the last to get low in severe hypothyroid). She is having lots of hypothyroid symptoms and already tried to take low dose thyroid supplement and tolerated Liothyronine 5 mcg qd but not levothyroxine 25 mcg/day. Since she is very sensitive to thyroid hormone supplement, ok for her to try 0.25-0.5 tab of levothyroxine to keep FT4 up in the normal range and TSH around 1.0 for nodule suppression and weight down. She has been eating healthy and responded very well to the addition of GLP-1 (victoza -> ozempicpen weekly) for her T2DM with wt down 50-70 lbs over the past 4-5 yrs. Overall she has good BG control and A1c down from 8.2 to 6.1-6.5% since October 2021 which is amazing. She could not tolerate metformin, byetta, SGLT2 (Jardiance) and already stopped taking glimiperide last year and no insulin since she started victoza She also has untreated BEN (unable to use CPAP due to sinus issue) and feels some fatigue all the time, causing daytime fatigue, and has been using Aura ring to monitor her PaO2, HR, walking steps, etc. Her dry skin and scalp hair loss could be related to menopause but they could be due to a borderline hypothyroid with a borderline low FT4. Target TSH 0.5-1.5 or around 1.0 and <2.0 for her obesity (BMI 45-> 35 now!). She has no cardiovascular disease or arrhythmia but quite sensitive to any medication changes with underlying anxiety and depression. It's good news for thyroid US findingsat our visit in 2021 so there is no need for FNA biopsy and the mixed nodules are all small and stable in size up to 1 cm. PLAN: 1. Medication: Patient will continue taking liothyronine 5 mcg daily. *Previously, LT4 made her feel very depressed. T3 (short-acting active form) seems to help with some of her psych symptoms & depression. She knows to take thyroid pills on an empty stomach at least 1/2 h before breakfast and separate from iron, calcium or multivitamin-multimineral supplement to ensure full absorption of her thyroid medication. Patient was advised of proper dosage, how to take the medication properly, precautions, and potential complication of the medication prescribed. Target TSH 0.5-1.5 or around 1.0 and <2.0 for her weight and fatigue issues. Ok to continue Ozempic 2.0 mg weekly for her T2DM and obesity and to reduce to 1 mg sc weekly (09/16/23) as she has worsening gastroparesis. (*already stopped taking glimiperide 4 mg 2x/day last year and off insulin since we started victoza). To cont to eat low carb low gluten diet. Patient will continue all other medications Ideally she should resume using CPAP at night to reduce daytime fatigue for her BEN and to quit smoking completely. Addendum: lab showed low vitamin D at 20 (normal 30-100) not good for bone or your hip => to double OTCvitamin D from 2,000iu to 4,000-5,000 iu daily for now. MARTA CABRAL MD 2. To eat low fat/controlled carb and healthy diet as well as exercise as tolerated to keep weight down and be able to cut back on insulin dose further. 3. Lab: already checked lab after visit today as ordered for TSH and A1c, etc Orders Placed This Encounter Procedures Hemoglobin A1c TSH [facility] Vitamin D, 25-Hydroxy LDL Cholesterol, Direct X-ray/Imaging study: Office Thyroid ultrasound for thyroid nodule size after 2-4 year at our office(by the same gettering filament machine operator). 4. RTC: 1-2 years for thyroid US and DM and make sure that she continue lose wt further (goal wt is185 lbs) We have reviewed our plan outlined above with the patient, and patient verbalized understanding. All questions were answered and most of the time was spent on counseling about thyroid conditions, medications adjustment, including pros and cons of starting medication, the diagnostic and therapeutic decisions, and coordination of care. Thank you for allowing me to participate in the care of this very pleasant patient. Marta Cabral MD, PhD, FACE, FACP cc: JUAN PALBO Waterman documented in this encounter Miscellaneous Notes * Addendum Note - Marta Cabral MD - 07/31/2023 11:30 AM EDTAddended by: MARTA CABRAL on: 09/16/2023 01:16 PM Modules accepted: Orders documented in this encounter Plan of Treatment Not on file documented as of this encounter Results * LDL Cholesterol, Direct (07/31/2023 12:12 PM EDT) LDL Chol Direct 43 mg/dL [facility] Comment: Desirable: ? <100 mg/dL Above Desirable: 100-129 mg/dL Borderline High: 130-159 mg/dL High: ?160-189 mg/dL Very High: ? >ym=060 mg/dL If not reaching LDL goals on maximally tolerated statin, consider exetimibe and/or a PCSK9 inhibitor: ?? Target for primary prevention: LDL<100 ?? Target for those with ASCVD or diabetes and 19-year risk >or=20%: LDL<70 ?? Target for those with very high risk ASCVD: LDL<55 (Very high risk being the presence of 2 or more of: recent acute coronary syndrome, past myocardial infarction, ischemic stroke, symptomatic perpheral artery disease). Blood 07/31/2023 12:1 2 PM EDT 07/31/2023 12:44 PM EDT Narrative Resulting Agency Comment Spec In Lab Marta Cabral MD CHEMISTRY ORDERAB LES Performing Organization Address City/[facility]/ZIP Co de Phone Number [facility] [place] [address] * (ABNORMAL) Vitamin D, 25-Hydroxy (07/31/2023 12:12 PM EDT) [facility] 25-OH Vit D Total 20(L) 21 - 100 ng/mL [facility] 25-OH Vit D Interp Deficient [facility] Blood 07/31/2023 12:1 2 PM EDT 07/31/2023 12:43 PM EDT Narrative Resulting Agency Comment Spec In Lab Marta Cabral MD CHEMISTRY ORDERAB LES Performing Organization Address City/[facility]/ZIP Co de Phone Number [facility] [place] [address] * TSH [facility] (07/31/2023 12:12 PM EDT) [facility] TSH 1.59 0.27 - 4.20 mcIU/mL [facility] Comment: Reference Interval (mcIU/mL): Females: ??First Trimester: 0.23-3.88 ??Second Trimester: 0.22-3.90 ??Third Trimester: 0.44-4.66 Blood 07/31/2023 12:1 2 PM EDT 07/31/2023 12:43 PM EDT Narrative Resulting Agency Comment Spec In Lab Marta Cabral MD CHEMISTRY ORDERAB LES [facility] [place] [place] [address] * (ABNORMAL) Hemoglobin A1c (07/31/2023 12:12 PM EDT) Hemoglobin A1C 6.9(H) 4.3 - 5.6 % [facility] Comment: Reference Range: 4.3 [...] Mellitus, Diabetes Care 2013; 36: Suppl. 1, S67-71 Est Avg Gluc 150 mg/dL [facility] Blood 07/31/2023 12:1 2 PM EDT 07/31/2023 12:43 PM EDT Narrative Resulting Agency Comment Spec In Lab Marta Cabral MD CHEMISTRY ORDERAB LES Performing Organization Address City/[facility]/ZIP Co de Phone Number [facility] [place] [address] documented in this encounter Visit Diagnoses Diagnosis Type 2 diabetes, controlled, with neuropathy Type II or unspecified type diabetes mellitus with neurological manifestations, not stated as uncontrolled Delano's thyroiditis Chronic lymphocytic thyroiditis Vitamin D deficiency Unspecified vitamin D deficiency 3-vessel CAD Coronary atherosclerosis of unspecified type of vessel, [place] or graft documented in this encounter Care Teams Bell Ringer Relationship Specialty Start Date End Date Kaylee Jaquez PA [address] [place] [address] PCP - General Family Medicine 01/18/22 documented as of this encounter
--- OUTSIDE RECORDS SUMMARY | 2023-11-25 15:31 | XMS_ITS | Encounter Summary ---
Author Organization [facility] [place] [address] Care Team Providers Care Business Support Professional Name Role Phone Kaylee Jaquez Primary Care Provider [phone] Reason for Visit * Auth/Cert (Routine) Specialty Diagnoses / Procedures Referred By Contac t Referred To Contact Diagnoses Lumbar radiculopathy lumbar radiculopathy Procedures PRO INJECTION DX/THER SBST INTRLMNR LMBR/SAC W/IMG GDN PRO INJECTION DX/THER SBST INTRLMNR LMBR/SAC W/IMG GDN INJECTION, EPIDURAL, LUMBAR OR SACRAL (CAUDAL), WITH IMAGING GUIDANCE (WRVU 1.8) Lumbar or Sacral Epidural Steroid Inj Sacral (Caudal) (63135) Alvarez Monteiro MD [facility] [place] [address] [facility] Referral ID Status Reason Start Date Expiration Date Visits Re quested Visits Authorized [id number] 1 1 Encounter Details Date Type Department Care Team (Late st Contact Info) Description 01/23/2023 11:00 AM EDT Ancillary [place] [phone] Alvarez Monteiro MD [facility] [place] [address] Social History Tobacco Use Types Packs/Day Years [...] Associated Diagnosis Comments FILM LIBRARY STORAGE ONLY PAIN CLINIC C ARM Routine 01/23/2023 1:06 PM EDT documented in this encounter Results * Film Library- Storage Only pain Clinic C-Arm (01/23/2023 1:06 PM EDT) Narrative [facility] - 01/23/2023 1:06 PM EDT See PACS for result report. Alvarez Monteiro MD IMG FILM LIBRARY ORD ERABLES Performing Organization Address City/State/[facility] Co de Phone Number [place], [place] documented in this encounter Visit Diagnoses Not on filedocumented in this encounter Care Teams Business Support Professional Relationship Specialty Start Date End Date Kaylee Jaquez PA [address] [place] [address] PCP - General Family Medicine 01/18/22 documented as of this encounter
--- OUTSIDE RECORDS SUMMARY | 2023-11-25 15:31 | XMS_ITS | Encounter Summary ---
[place] [address] Care Team Providers Care Rag Washer Name Role Phone Kaylee Jaquez Primary Care Provider [phone] Encounter Details Date Type Department Care Team (Latest Contact Info) Description 08/11/2023 Travel Social History Tobacco Use Types Packs/Day [...] on filedocumented in this encounter Care Teams Rag Washer Relationship Specialty Start Date End Date Kaylee Jaquez PA [address] [place] [address] PCP - General Family Medicine 01/18/22 documented as of this encounter
--- OUTSIDE RECORDS SUMMARY | 2023-11-25 15:31 | XMS_ITS | Encounter Summary ---
Author Organization [facility] [place] [address] Care Team Providers Care Media Strategist Name Role Phone Kaylee Jaquez Primary Care Provider [phone] Reason for Visit * Reason Onset Date Comments Medication Refill 07/07/2023 Encounter Details Date Type Department Care Team (Late st Contact Info) Description 07/07/2023 Refill Gastroenterology at [facility] [place] [address] Nimesh Alicia MD [facility] [place] [address] Social History Tobacco Use Types Packs/Day Years [...] on filedocumented in this encounter Care Teams Media Strategist Relationship Specialty Start Date End Date Kaylee Jaquez PA [address] [facility] [place] [address] PCP - General Family Medicine 01/18/22 documented as of this encounter
--- OUTSIDE RECORDS SUMMARY | 2023-11-25 15:31 | XMS_ITS | Encounter Summary ---
[place] [address] Care Team Providers Care Corporate Officer Name Role Phone Kaylee Jaquez Primary Care Provider [phone] Encounter Details Date Type Department Care Team ([facility] st Contact Info) Description 07/21/2023 12:00 PM EDT Ancillary Procedure XRay at [place] [address] [place] [address] Elvin Whiting MD [address] [place] [place] [id number] Pain in right hip Social History Tobacco Use Types Packs/Day Years [...] Name Priority Date/Time Associated Diagnosis Comments XR PELVIS AND LAT HIP RIGHT Routine 07/21/2023 11:55 AM EDT Pain in right hip documented in this encounter Results * XR Pelvis & Lat Hip Right (Generic) (07/21/2023 11:55 AM EDT) Anatomical Region Laterality Modality Pelvis, Hip Right Digital Radiogra phy Impressions 07/21/2023 12:52 PM EDT No acute fracture dislocation. Vascular calcifications. Mild degenerative changes of the right hip. Subtle sclerotic area within the proximal right femur in the intertrochanteric area. Consider dedicated evaluation with contrast-enhanced MRI Thank you for letting us participate in the care of this patient. ??If you are a health care provider and have any questions regarding this report, please contact the number below. ??For patients who have questions please contact the health home care administrator that requested your imaging first. ? Narrative 07/21/2023 12:52 PM EDT EXAMINATION: XR PELVIS AND LAT HIP RIGHT (GENERIC) CLINICAL HISTORY: Right hip pain TECHNIQUE: AP view the pelvis and AP and frog-leg views of the right hip COMPARISON: None FINDINGS: Osseous structures: No acute fracture. ??Normal bone mineralization. No lytic or blastic bone lesion appreciated. Small sclerotic area within the right proximal femur incompletely characterized. Joints: Mild degenerative changes of both hips. No acute fracture or dislocation Soft tissues: No soft tissue swelling. No radiopaque foreign body. No soft tissue gas. Procedure Note Tony Ferro MD - 07/21/2023 EXAMINATION: XR PELVIS AND LAT HIP RIGHT (GENERIC) CLINICAL HISTORY: Right hip pain TECHNIQUE: AP view the pelvis and AP and frog-leg views of the right hip COMPARISON: None FINDINGS: Osseous structures: No acute fracture. Normal bone mineralization. Nolytic or blastic bone lesion appreciated. Small sclerotic area within the rightproximal femur incompletely characterized. Joints: Mild degenerative changes of both hips. No acute fracture ordislocation Soft tissues: No soft tissue swelling. No radiopaque foreign body. Nosoft tissue gas. IMPRESSION No acute fracture dislocation. Vascular calcifications. Mild degenerative changes of the right hip. Subtle sclerotic area within the proximal right femur in theintertrochanteric area. Consider dedicated evaluation with contrast-enhanced MRI Thank you for letting us participate in the care of this patient. If youare a health care provider and have any questions regarding this report,please contact the number below. For patients who have questions please contactthe health home care administrator that requested your imaging first. Elvin Whiting MD IMG DX ORDERABLES documented in this encounter Visit Diagnoses Diagnosis Pain in right hip Pain in joint, pelvic region and thigh documented in this encounter Care Teams Corporate Officer Relationship Specialty Start Date End Date Kaylee Jaquez PA [address] [place] [address] PCP - General Family Medicine 01/18/22 documented as of this encounter
--- OUTSIDE RECORDS SUMMARY | 2023-11-25 15:31 | XMS_ITS | Encounter Summary ---
[place] [address] Care Team Providers Care Conduit Cleaner Name Role Phone Kaylee Jaquez Primary Care Provider Encounter Details Date Type Department Care Team (Latest Contact Info) Description 07/31/2023 1:25 PM EDT Laboratory Appointment Lab [address] [address] Type 2 diabetes, controlled, with neuropathy; Delano's [...] Procedure Name Priority Date/Time Associated Diagnosis Comments HC THYROID STIMULATING HORMONE, SERUM Routine 07/31/2023 12:12 PM EDT Type 2 diabetes, controlled, 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 HC VITAMIN D TOTAL-25 HYDROXY Routine 07/31/2023 12:12 PM EDT Type 2 diabetes, controlled, 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 HC LDL CHOLESTEROL, DIRECT Routine 07/31/2023 12:12 PM EDT Type 2 diabetes, controlled, 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 HC HEMOGLOBIN A1C Routine 07/31/2023 12: 12 PM EDT Type 2 diabetes, controlled, 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 documented in this encounter Results * (ABNORMAL) Hemoglobin A1c (07/31/2023 12:12 PM [...] 1, S67-74 Est Avg Gluc 150 mg/dL [facility] Blood 07/31/2023 12:1 2 PM EDT 07/31/2023 12:43 PM EDT Narrative Resulting Agency Comment Spec In Lab Marta Rivera MD CHEMISTRY ORDERAB LES [facility] [place] [address] * TSH [place] (07/31/2023 12:12 PM EDT) TSH 1.59 0.27 - 4.20 mcIU/mL [facility] Comment: Reference Interval (mcIU/mL): Females: ??First Trimester: 0.23-3.88 ??Second Trimester: 0.22-3.90 ??Third Trimester: 0.44-4.66 Blood 07/31/2023 12:1 2 PM EDT 07/31/2023 12:43 PM EDT Narrative Resulting Agency Comment Spec In Lab Marta Rivera MD CHEMISTRY ORDERAB LES Performing Organization Address City/[facility]/ZIP Co de Phone Number [facility] [place] [address] * (ABNORMAL) Vitamin D, 25-Hydroxy (07/31/2023 12:12 PM EDT) 25-OH Vit D Total 20(L) 21 - 100 ng/mL [facility] 25-OH Vit D Interp Deficient [facility] Blood 07/31/2023 12:1 2 PM EDT 07/31/2023 12:43 PM EDT Narrative Resulting Agency Comment Spec In Lab Marta Rivera MD CHEMISTRY ORDERAB LES Performing Organization Address [facility] Co de Phone Number [facility] [place] [place] [address] * LDL Cholesterol, Direct (07/31/2023 12:12 PM EDT) LDL Chol Direct 43 mg/dL [facility] Comment: Desirable: ? <100 mg/dL Above Desirable: 100-129 mg/dL Borderline High: 130-159 mg/dL High: ?160-189 mg/dL Very High: ? >vk=720 mg/dL If not reaching LDL goals on [...] Lab Marta Rivera MD CHEMISTRY ORDERAB LES [facility] [place] [address] documented in this encounter Visit Diagnoses Diagnosis Type 2 diabetes, controlled, with neuropathy Type II or unspecified type diabetes mellitus with neurological manifestations, not stated as uncontrolled Delano's thyroiditis Chronic lymphocytic thyroiditis Vitamin D deficiency Unspecified vitamin D deficiency 3-vessel CAD Coronary atherosclerosis of unspecified type of vessel, benton or graft documented in this encounter Care Teams Conduit Cleaner Relationship Specialty Start Date End Date Kaylee Jqauez PA [address] [place] [address] PCP - General Family Medicine 01/18/22 documented as of this encounter
--- OUTSIDE RECORDS SUMMARY | 2023-11-25 15:31 | XMS_ITS | Encounter Summary ---
Author Organization [facility] [place] [address] Care Team Providers Care Micro Lab Analyst Name Role Phone Kaylee Jaquez Primary Care Provider [phone] Reason for Visit * Diagnostic Test (Routine) - Closed Specialty Diagnoses / Procedures Referred By Contac t Referred To Contact Gastroenterology Diagnoses Constipation, unspecified constipation type ARM for constipation Procedures High Definition Anal Manometry Nimesh Alicia MD [place] [address] [facility] [address] [place] [address] Referral ID Status Reason Start Date Expiration Date V isits Requested Visits Authorized [id number] Closed Consult, Test & Treat 07/14/2023 07/13/2024 1 1 Encounter Details Date Type Department Care Team (Latest Contact Info) Description 08/19/2023 2:00 PM EDT Procedure [place] [address] Constipation, unspecified constipation type Social History Tobacco Use Types Packs/Day Years [...] as of this encounter Progress Notes * Sarah Frazier RN - 08/19/2023 2:00 PM EDT A description of the anal manometry procedure was provided to the patient. All questions were answered and the patient verbalized understanding. After performing a digital rectal exam, the HRAM probe was placed in the rectum without difficulty and the procedure was performed. After removal of the probe, an anorectal balloon expulsion catheterwas placed in the rectum for continuation of the study and then removed. The patient tolerated the procedure well. * Carlos Stacy MD - 08/19/2023 2:00 PM EDT Re: Danielle Mills Reg No:[id number] : 1960 Date of Service: 08/19/2023 ANORECTAL MANOMETRY w/BALLOON EXPULSION Referring provider:Nimesh Alicia Dear: Dr. Alicia We had the pleasure of performing a high resolution anorectal manometry on your patient in the GI Motility Laboratory at [facility]. CLINICAL HISTORY AND INDICATION As you know, she is a 63 y.o. female with complaints of constipation RESULTS Resting sphincter pressure (NL Value: Males 70-100, Females 70-90) : 81 mmHg Max squeeze pressure (NL Value: Males 240-300, Females 160-200) : 274 mmHg Squeeze duration: excellent (sustaining at least 50% of the difference between maximum squeeze and resting pressures for at least 20 seconds). Rectoanal inhibitory reflex: present at 60 ccs balloon distention Response to coughing: normal (cough elicits a pressure greater than or equal to double the resting pressure). Dyssynergia evident on push maneuvers. 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 Resting anal sphincter pressure reflecting internal sphincter function was normal. Maximum squeeze pressures reflecting external sphincter function were elevated. Rectal sensation was normal. Carlos Stacy MD, [facility] Section of Gastroenterology and Hepatology [place] [address] [address] V: [phone] F: [phone] CC/EC: JUAN PABLO Waterman [address] [place] [address] documented in this encounter Plan of Treatment Not on file documented as of this encounter Visit Diagnoses Diagnosis Constipation, unspecified constipation type documented in this encounter Care Teams Micro Lab Analyst Relationship Specialty Start Date End Date Kaylee Jaquez PA [address] [place] [address] PCP - General Family Medicine 01/18/22 documented as of this encounter
--- OUTSIDE RECORDS SUMMARY | 2023-11-25 15:31 | XMS_ITS | Encounter Summary ---
Author Organization [facility] Address [facility] [place] [address] Care Team Providers Care Exhibitions Curator Name Role Phone Kaylee Jaquez Primary Care Provider [phone] Reason for Visit * Reason Onset Date Comments Medication Refill 07/30/2023 Encounter Details Date Type Department Care Team (Late st Contact Info) Description 07/30/2023 Refill Cardiology at [address] [address] Lc Garcia MD [facility] [place] [address] Medication Refill Social History Tobacco Use Types [...] unspecified documented in this encounter Care Teams Exhibitions Curator Relationship Specialty Start Date End Date Kaylee Jaquez PA [address] [place] [address] PCP - General Family Medicine 01/18/22 documented as of this encounter
--- OUTSIDE RECORDS SUMMARY | 2023-11-25 15:31 | XMS_ITS | Encounter Summary ---
Author Organization [facility] [place] [address] Care Team Providers Care Coat Hanger Shaper Machine Operator Name Role Phone Kaylee Jaquez Primary Care Provider Encounter Details Date Type Department Care Team (Late st Contact Info) Description 07/02/2023 Telephone Tobacco Treatment at [facility] [place] [phone] Jennifer Barber Social History Tobacco Use Types Packs/Day Years [...] encounter Miscellaneous Notes * Telephone Encounter - Jennifer Barber - 07/02/2023 10:14 AM EST LM (3rd) asking pt to return call to schedule a Smoking Cessation apptmt. Ref to be closed/unable to reach pt documented in this encounter Plan of Treatment Not on file documented as of this encounter Visit Diagnoses Not on filedocumented in this encounter Care Teams Coat Hanger Shaper Machine Operator Relationship Specialty Start Date End Date Kaylee Jaquez PA [address] [place] [address] PCP - General Family Medicine 01/18/22 documented as of this encounter
--- OUTSIDE RECORDS SUMMARY | 2023-11-25 15:31 | XMS_ITS | Encounter Summary ---
[place] [address] Care Team Providers Care Xm1 Tank Driver Name Role Phone Kaylee Jaquez Primary Care Provider [phone] Encounter Details Date Type Department Care Team (Late st Contact Info) Description 07/02/2023 Orders Only Orthopaedics at [place] [address] [place] [address] Elvin Whiting MD [address] [place] [address] Pain in right hip Social History Tobacco [...] as of this encounter Results * XR Pelvis & [...] who have questions please contact the health primary care physician that requested your imaging first. ? Narrative [...] patients who have questions please contactthe health primary care physician that requested your imaging first. Elvin Whiting MD IMG DX ORDERABLES documented in this encounter Visit Diagnoses Diagnosis Pain in right hip Pain in joint, pelvic region and thigh Pain in right hip Pain in joint, pelvic region and thigh documented in this encounter Care Teams Xm1 Tank Driver Relationship Specialty Start Date End Date Kaylee Jaquez PA [address] [place] [address] PCP - General Family Medicine 01/18/22 documented as of this encounter
--- OUTSIDE RECORDS SUMMARY | 2023-11-25 15:31 | XMS_ITS | Encounter Summary ---
Author Organization [facility] Address [facility] [place] [address] Care Team Providers Care Convention Services Director Name Role Phone Kaylee Jaquez Primary Care Provider Encounter Details Date Type Department Care Team (Latest Contact Info) Description 04/21/2023 9:49 PM EST - 04/21/2023 11:59 PM EST [place] [phone] Discharge Disposition: Home Social History Tobacco Use [...] 0.5 mg by mouth daily. 2 02/26/2018 dexlansoprazole (Dexilant) [address] capsule Take 1 capsule by mouth daily. 90 capsule 1 03/11/2023 07/07/2023 liothyronine (Cytomel) 5 mcg tablet Take 1 tablet by mouth daily. 90 tablet 1 11/01/2022 04/30/2023 prucalopride (Motegrity) 1 mg tabletIndications:Gas troparesis Take 2 tablets by mouth daily. 180 tablet 3 09/23/2022 11/17/2023 isosorbide mononitrate CR (Imdur) 30 mg ER 24 hr tabletIndications:NST PAULETTE (non-ST elevated myocardial infarction) Take 1 tablet by mouth daily. 90 tablet 3 09/10/2022 05/30/2023 losartan (Cozaar) 25 mg tabletIndications:NST PAULETTE (non-ST [...] Priority Date/Time Associated Diagnosis Comments SURGICAL PATHOLOGY REPORT Routine 04/21/2023 2:24 PM EST documented in this encounter Results * Surgical Pathology Report (04/21/2023 2:24 PM EST) Surgical Pathology Report [id number] ? Location: [facility] The signing pathologist has (i) examined the relevant preparation(s) for the specimen(s) and (ii) rendered or confirmed the diagnosis(es). . ?Surgical Pathology DIAGNOSIS Right foot toenail, clippings: - PAS staining positive for fungal hyphae present in nail plate ? (see discussion) Electronically signed by: ?Radha ABDUL, Steven Lindo Verified: ??04/24/2023 16:23 ??Dermatopathol ogist Performed at: ??-[facility] [place], [place] [address] Field Nurse: Cleopatra Merrill MD, FCAP, ??CLIA Certificate: [id number] DISCUSSION The hyphae have a distorted apperance, which could reflect processing artifact or partial treatment. Staining also reveals background coccoid bacteria that appear distinct from the fungi. SPECIMEN(S) SUBMITTED A - toenail clipping right foot Referring Identifier: ??[id number] CLINICAL INFORMATION Thick discolored nails SPECIMEN PROCESSING A - Labeled/Fixativ e: Patient demographics, fresh. Quantity/Size: ??Two, 0.5 and 0.7 cm. Tissue Description: Chalky, yellow-wright nail clippings. Sections/Proces sing: Submitted in toto ??in 1 cassette labeled A1. ??sns [facility] 04/21/2023 2:24 PM EST Narrative Resulting Agency Comment Spec In Lab / WKS Juanita Khan TEST CENTER ADMINISTRATOR PATHOLOGY/CYTOLOGY O RDERABLES [facility] [place] [address] documented in this encounter Visit Diagnoses Not on filedocumented in this encounter Care Teams Convention Services Director Relationship Specialty Start Date End Date Kaylee Jaquez PA [address] [place] [address] PCP - General Family Medicine 01/18/22 documented as of this encounter
--- OUTSIDE RECORDS SUMMARY | 2023-11-25 15:31 | XMS_ITS | Encounter Summary ---
Author Organization [facility] [place] [address] Care Team Providers Care Account Collector Name Role Phone Kaylee Jaquez Primary Care Provider [phone] Encounter Details Date Type Department Care Team (Late st Contact Info) Description 06/09/2023 Telephone Tobacco Treatment at [facility] [place] [phone] Jennifer Barber Social History Tobacco Use Types [...] * Telephone Encounter - Jennifer Barber - 06/09/2023 9:56 AM EST LM asking pt to return call to schedule a Smoking Cessation apptmt documented in this encounter Plan of Treatment Not on file documented as of this encounter Visit Diagnoses Not on filedocumented in this encounter Care Teams Account Collector Relationship Specialty Start Date End Date Kaylee Jaquez PA [address] [place], [place] [id number] PCP - General Family Medicine 01/18/22 documented as of this encounter
--- OUTSIDE RECORDS SUMMARY | 2023-11-25 15:31 | XMS_ITS | Encounter Summary ---
[place] [address] Care Team Providers Care Farmworker Pullet Farm Name Role Phone Kaylee Jaquez Primary Care Provider Encounter Details Date Type Department Care Team (Latest Contact Info) Description 06/11/2023 Travel Social History Tobacco Use Types Packs/Day [...] on filedocumented in this encounter Care Teams Farmworker Pullet Farm Relationship Specialty Start Date End Date Kaylee Jaquez PA [address] [facility] [place] [address] PCP - General Family Medicine 01/18/22 documented as of this encounter
--- OUTSIDE RECORDS SUMMARY | 2023-11-25 15:31 | XMS_ITS | Encounter Summary ---
[facility] [place] [address] Care Team Providers Care Solar Maintenance Technician Name Role Phone Kaylee Jaquez Primary Care Provider [phone] Reason for Visit * Auth/Cert (Routine) Specialty Diagnoses / Procedures Referred By Contac t Referred To Contact Diagnoses Lumbar radiculopathy lumbar radiculopathy Procedures PRO INJECTION DX/THER SBST INTRLMNR LMBR/SAC W/IMG GDN PRO INJECTION DX/THER SBST INTRLMNR LMBR/SAC W/IMG GDN INJECTION, EPIDURAL, LUMBAR OR SACRAL (CAUDAL), WITH IMAGING GUIDANCE (WRVU 1.8) Lumbar or Sacral Epidural Steroid Inj Sacral (Caudal) (23265) Alvarez Monteiro MD [facility] [place] [address] [facility] Referral ID Status Reason Start Date Expiration Date Visits Re quested Visits Authorized [id number] 1 1 Encounter Details Date Type Department Care Team (Late st Contact Info) Description 01/23/2023 11:00 AM EDT - 01/23/2023 11:30 AM [place]T [place] [id number] Alvarez Monteiro MD [facility] [place] [address] INJECTION, EPIDURAL, LUMBAR OR SACRAL (CAUDAL), WITH IMAGING GUIDANCE (WRVU 1.8) Social History Tobacco Use Types Packs/Day Years [...] Sign Reading Time Taken Comments Blood Pressure 123/76 01/23/2023 10:36 AM EDT Pulse 80 01/23/2023 10:36 AM EDT Temperature - - Respiratory Rate - - Oxygen Saturation 97% 01/23/2023 11:30 AM EDT Inhaled Oxygen Concentration - - Weight 99.8 kg (220 lb) 01/23/2023 10:36 AM EDT Height 165.1 cm (5' 5) 01/23/2023 10:36 AM EDT Body Mass Index 36.61 01/23/2023 10:36 AM EDT documented in this encounter Medications at Time [...] 1 capsule by mouth daily. 90 capsule 12/19/2022 03/11/2023 liothyronine (Cytomel) 5 mcg tablet Take 1 [...] as of this encounter H&P Notes * Arvind Gordon MD - 01/22/2023 1:57 PM EDT Patient Name: Danielle Mills Patient Age: 62 y.o. Birthdate: 1960 Admit date: (Not on file) Attending Physician: Alvarez Monteiro MD [facility] PREPROCEDURE HISTORY AND PHYSICAL HPI: Danielle Mills is a 62 y.o. female who presents today for: Procedure: left Lumbar Epidural Steroid Injection The history is obtained from the patient, and I have reviewed medical records provided by the referring physician, located in the electronic medical record to fill in gaps in the patient's recollection of events, treatments and outcomes. ROS: Patient denies recent fever, chills, infection, wounds, hospitalizations, ED visits, use of antibiotics. Pertinent positives and negatives otherwise noted in the HPI. I have reviewed the patient's past medical history, past surgical history, list of medications, allergies, family history and social history as documented in the electronic medical record. Physical Examination: There were no vitals taken for this visit. Pain Ratin Please see previous evaluation performed on 01/03/23, by Ms. Rader No pertinent changes are noted from previous assessment. Pulmonary/Chest: Effort normal. Skin: Skin is warm and dry. No rash noted. Not diaphoretic. Radiologic Data: Relevant imaging was reviewed today. New Imaging: None Labs: No labs required Assessment and Plan: lumbar radiculopathy Proceed with planned left Lumbar Epidural Steroid Injection. Addressed all questions and concerns. Nursing intake/checklist reviewed. Medications holds confirmed. Risks and benefits discussed with patient. No contraindications to the procedure at this time, will proceed. Arvind Gordon MD Attending Physician [facility] [place] [address] / documented in this encounter Miscellaneous Notes * Op Note - Alvarez Monteiro MD - 01/23/2023 11:25 AM EDT Pain Management Operative Note Patient Name: Danielle Mills : [id number] MR#: [id number] Case Date: 01/23/2023 Surgeon: Surgeon(s) and Role: * Alvarez Monteiro MD - Primary * Arvind Gordon MD - Fellow - Assisting Present on Admission: Radiculopathy of lumbar region Postoperative diagnosis: same LUMBAR INTERLAMINAR EPIDURAL STERIOID INJECTION PROCEDURE NOTE Ms. Danielle Mills has been referred to the [facility] for a lumbar epidural steroid injection by Unknown None. The patient complains of low back pain with pain radiating down the left leg. Ms. Mills was greeted by the nurse who verified patients name and . The patient was then taken to the fluoroscopy suite. Ms. Mills was interviewed and the medical record reviewed. There were no medical, pharmacologic, radiographic, or other structural contraindications to attempting fluoroscopically guided lumbar epidural steroid injection. Risks and potential side effects, as well as potential benefits of the procedure were reviewed with Ms. Mills. Her voiced concerns were addressed. After I was assured that informed consent was obtained, the patient consent form was signed. Standard time-out procedure was performed. Ms. Mills was placed in the prone position on the fluoroscopy table and automated blood pressure cuff and pulse oximeter applied. The skin entry point for entering/approaching the left L4-L5 epidural space for the lumbar epidural steroid injection was marked. Following thorough chlorhexadine preparation of the skin and draping and 1% lidocaine infiltration of the skin entry point and subcutaneous tissues, an 5 inch 18 gauge Touhy needle was placed and advanced under fluoroscopic guidance and with loss of resistance technique into the left L4-L5 epidural space. Needle tip placement and depth were aided and confirmed by fluoroscopy. There was no paresthesia or return of blood or CSF through the needle. 2 cc's of Omnipaque 240 was injected (48 cc's was wasted) with clear epidural spread confirmed with fluoroscopy. 80 mg of preservative-free Depomedrol (80 mg/cc) and 2 ml of 1% lidocaine preservative free was injected. This was followed by 1 cc of preservative-free normal saline to flush the steroid out of the needle. There was not any unusual discomfort expressed by Ms. Mills. (48 cc of Omnipaque was wasted) Ms. Mills's vital signs were stable throughout the procedure and were as recorded in nursing records. Patient's neurological examination was unchanged postprocedure. Post-procedure pain score: 0/10. Follow up plans and appointments were discussed with Ms. Mills. The patient is set to follow upwith Kayli Arana. Post procedure instruction was given as documented in nursing records and having met discharge criteria he was discharged from the [facility]. Comments: If this procedure is successful in helping with pain and improving her function, it can be completed a maximum of 3 times every 12 months. I was the attending physician supervising the fellow in the above care and I was present with the fellow for the entire procedure. Alvarez Monteiro MD [facility] Diesel Crane Operator of Anesthesiology [facility] [employer] [address] [phone] / [facility] [place] CC: Unknown None documented in this encounter Plan of Treatment Not on file documented as of this encounter Procedures Procedure Name Priority Date/Time Associated Diagnosis Comments Injection Dx/Ther Sbst Intrlmnr Lmbr/Sac W/Img Gdn (76400) 01/23/2023 11:22 AM EDT Left lumbar radiculopathy Injection Dx/Ther Sbst Intrlmnr Lmbr/Sac W/Img Gdn (37424) 01/23/2023 11:22 AM EDT Left lumbar radiculopathy INJECTION, EPIDURAL, LUMBAR OR SACRAL (CAUDAL), WITH IMAGING GUIDANCE Routine 01/23/2023 10:27 AM EDT Left lumbar radiculopathy documented in this encounter Visit Diagnoses Diagnosis Left lumbar radiculopathy Thoracic or lumbosacral neuritis or radiculitis, unspecified Left lumbar radiculopathy Thoracic or lumbosacral neuritis or radiculitis, unspecified documented in this encounter Administered Medications Inactive Administered Medications - up to 3 most recent administrations Medication Order MAR Action Action Date Dose Rate Site dexAMETHasone (PF) (Decadron) (10 mg/mL) injection PRN, Starting on Ayde 01/23/23 at 1137, Until Ayde 01/23/23 at 1338, Intra-Operative (Intra-Procedure), Routine Given 01/23/2023 11:37 AM EDT 15 mg iohexoL (Omnipaque) (240 mg/mL) solution PRN, Starting on Ayde 01/23/23 at 1137, Until Ayde 01/23/23 at 1338, Intra-Operative (Intra-Procedure), Routine Given 01/23/2023 11:37 AM EDT 1 mL lidocaine (pf) (Xylocaine) (10 mg/mL) 1% injection PRN, Starting on Ayde 01/23/23 at 1136, Until Yade 01/23/23 at 1338, Intra-Operative (Intra-Procedure), Routine Given 01/23/2023 11:36 AM EDT 2 mLs documented in this encounter Active and Recently Administered Medications Times are shown in EDT. PRN Medication Order 01/21/2023 01/22/2023 01/23/2023 dexAMETHasone (PF) (Decadron) (10 mg/mL) injection (CANCELED) PRN, Starting on Ayde 01/23/23 at 1137, Until Ayde 01/23/23 at 1338, Intra-Operative (Intra-Procedure), Routine 1137 (Given - Provid er: Arvind Gordon MD - Comment: LESI) iohexoL (Omnipaque) (240 mg/mL) solution (CANCELED) PRN, Starting on Ayde 01/23/23 at 1137, Until Ayde 01/23/23 at 1338, Intra-Operative (Intra-Procedure), Routine 1137 (Given - Provid er: Arvind Gordon MD - Comment: LESI) lidocaine (pf) (Xylocaine) (10 mg/mL) 1% injection (CANCELED) PRN, Starting on Ayde 01/23/23 at 1136, Until Ayde 01/23/23 at 1338, Intra-Operative (Intra-Procedure), Routine 1136 (Given - Provid er: Arvind Gordon MD - Comment: LESI) documented in this encounter Care Teams Solar Maintenance Technician Relationship Specialty Start Date End Date Kaylee Jaquez PA [address] [address] PCP - General Family Medicine 01/18/22 documented as of this encounter
--- OUTSIDE RECORDS SUMMARY | 2023-11-25 15:31 | XMS_ITS | Encounter Summary ---
[place] [address] Care Team Providers Care Plumbing Contractor Name Role Phone Kaylee Jaquez Primary Care Provider Encounter Details Date Type Department Care Team (Latest Contact Info) Description 08/12/2023 Travel Social History Tobacco Use Types Packs/Day [...] on filedocumented in this encounter Care Teams Plumbing Contractor Relationship Specialty Start Date End Date Kaylee Jaquez PA [address] [facility] [place] [address] PCP - General Family Medicine 01/18/22 documented as of this encounter
--- OUTSIDE RECORDS SUMMARY | 2023-11-25 15:31 | XMS_ITS | Encounter Summary ---
Author [place] [address] Care Team Providers Care Mathematical Engineering Technician Name Role Phone Kaylee Jaquez Primary Care Provider Encounter Details Date Type Department Care Team (Latest Contact Info) Description 08/13/2023 Travel Social History Tobacco Use Types Packs/Day [...] on filedocumented in this encounter Care Teams Mathematical Engineering Technician Relationship Specialty Start Date End Date Kaylee Jaquez PA [address] [place] [address] PCP - General Family Medicine 01/18/22 documented as of this encounter
--- OUTSIDE RECORDS SUMMARY | 2023-11-25 15:31 | XMS_ITS | Encounter Summary ---
[place] [address] Care Team Providers Care Supervisor Electron Tube Processing Name Role Phone Kaylee Jaquez Primary Care Provider Reason for Referral * Diagnostic Test (Routine) - Closed Specialty Diagnoses / Procedures Referred By Contac t Referred To Contact Radiology Diagnoses Chest pain, unspecified type ASCVD (arteriosclerotic cardiovascular disease) Procedures NM Exercise Stress and Rest Myocardial Perfusion Lc Garcia MD [facility] [place] [address] [place] [address] Referral ID Status Reason Start Date Expiration Date V isits Requested Visits Authorized [id number] Closed Specialty Service Requested 05/30/2023 11/28/2024 1 1 * Diagnostic Test (Routine) - Closed Specialty Diagnoses / Procedures Referred By Contac t Referred To Contact Radiology Diagnoses Chest pain, unspecified type ASCVD (arteriosclerotic cardiovascular disease) Procedures NM Exercise Stress CT Component Lc Garcia MD [facility] [place] [address] [facility] [place] [address] Referral ID Status Reason Start Date Expiration Date V isits Requested Visits Authorized [id number] Closed Specialty Service Requested 05/30/2023 11/27/2024 1 1 * Consultation (Routine) - Closed Specialty Diagnoses / Procedures Referred By Contac t Referred To Contact Diagnoses ASCVD (arteriosclerotic cardiovascular disease) Cigarette smoker Lc Garcia MD [facility] [place] [address] [facility] [place] [address] Referral ID Status Reason Start Date Expiration Date V isits Requested Visits Authorized [id number] Closed Consult, Test & Treat 05/30/2023 05/29/2024 1 1 Encounter Details Date Type Department Care Team (Latest Contact Info) Description 05/30/2023 1:20 PM EST Office Visit Cardiology at [address] [phone] Lc Garcia MD [facility] [place] [address] NSTEMI (non-ST elevated myocardial infarction); Chest pain, unspecified type; ASCVD (arteriosclerotic cardiovascular disease); Cigarette smoker Social History Tobacco Use Types Packs/Day Years [...] Sign Reading Time Taken Comments Blood Pressure 128/83 05/30/2023 1:10 PM EST Pulse 80 05/30/2023 1:10 PM EST Temperature - - Respiratory Rate - - Oxygen Saturation 100% 05/30/2023 1:10 PM EST Inhaled Oxygen Concentration - - Weight 102.7 kg (226 lb 8 oz) 05/30/2023 1:10 PM EST Height 165.1 cm (5' 5) 05/30/2023 1:10 PM EST Body Mass Index 37.69 05/30/2023 1:10 PM EST documented in this encounter Progress Notes * Lc Garcia MD - 05/30/2023 1:20 PM EST [facility] Outpatient Cardiology Patient: Danielle Mills : 1960 Reason for follow up: ASCVD, chest pain PCP: JUAN PABLO Waterman History of present illness: Danielle Mills is a 62 y.o. female with multivessel ASCVD who presents to establish cardiovascular care in the setting of her prior oss architect departing a local practice. History is notable for multivessel PCI in the context of non- STEMI in January 2022 performed at [facility], referred from [facility]. The patient was noted to have three-vessel coronary artery disease after her initial cath, and an IABP was placed due to intractable chest pain. Transthoracic echo showed preserved LV systolic function with apical hypokinesis and no thrombus, normal RV function, no valve disease. CT surgery was consulted, and the patient was deemed not to be a candidate for bypass due to poor targets. She thus proceeded with PCI of the LAD, L PDA, and LPL. The patient was noted to be in diastolic heart failure and was started on Lasix. Discharge weight was 256 pounds. The patient since 2019 [address] following with Dr. Carlos Jenkins at [facility]. She was switched to Repatha after both Crestor and atorvastatin resulted in severe constipation. She is doing well with Repatha and had labs documentingan LDL of 69. She quit smoking briefly after her myocardial infarction but has remained a smoker for the past couple years. She started smoking at the age of 17 and smokes about a pack a day. On interview today, the patient reports concern about chest pain which is increasing over the past 2 months. She states this occurs both at rest and with exertion. It is substernal radiating to her shoulder blades. It is dull and comes on over a few minutes, last a few minutes, and then subsides. No clear alleviating or exacerbating features. States this feels similar to her prior myocardial infarction. She has never had chest pain that did not resolve. She reports continue to smoke at least a half a pack a day, up to a full pack. Review of systems: Cardiovascular: No orthopnea, LE edema, or PND; no palpitations. 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, Tg 63 with normal TSH 1.75-2.25) Radiculopathy of lumbar region Hepatitis Constipation Added automatically from request for surgery [id number] Non-ST elevation myocardial infarction (NSTEMI) NSTEMI (non-ST elevated myocardial infarction) BEN (obstructive sleep apnea) HAMMONDS (nonalcoholic steatohepatitis) Adult BMI 45.0-49.9 kg/sq m Chronic low back pain Benign lipomatous neoplasm Cystocele Depression, anxiety, insomnia, PTSD Edema Nicotine dependence, uncomplicated Onychomycosis of toenail Osteoarthritis of hip Spinal stenosis of cervical region Carpal tunnel syndrome Gastroesophageal reflux disease with hiatal hernia Type 2 diabetes mellitus Diet controlled HLD (hyperlipidemia) Past Medical History: Diagnosis Date Arthritis Depression DM hyperosmolarity type II GERD (gastroesophageal reflux disease) Hepatitis Hiatal hernia Hyperlipidemia IBS (irritable bowel syndrome) PTSD (post-traumatic stress disorder) Tobacco use Past Surgical History: Procedure Laterality Date ABDOMEN SURGERY ANUS SURGERY 2004 Anal fissure repair Procedure Date: 2004 CARPAL TUNNEL RELEASE Bilateral ~2004 Bilateral carpal tunnel release Procedure Date: Unknown CHOLECYSTECTOMY ELBOW SURGERY 01/04/2015 Left lateral epi rel HIP SURGERY Right Right hip spur Procedure Date: Unknown, Dr. Benitez HYSTERECTOMY, TOTAL ABDOMINAL 1994 Total abdominal hysterectomy Procedure Date: 1994 JOINT REPLACEMENT ORTHOPEDIC SURGERY PRO COLONOSCOPY, REMV LESN, SNARE N/A 08/01/2021 COLONOSCOPY, POLYPECTOMY, REMOVAL LESION BY SNARE (WRVU 4.67) performed by Nimesh Alicia MD at [facility] ENDOSCOPY PRO INJECTION DX/THER SBST INTRLMNR LMBR/SAC W/IMG GDN Midline 01/23/2023 INJECTION, EPIDURAL, LUMBAR OR SACRAL (CAUDAL), WITH IMAGING GUIDANCE (WRVU 1.8) performed by Alvarez Monteiro MD at [facility] PAIN MGMT MSO PRO INJECTION DX/THER SBST INTRLMNR LMBR/SAC W/IMG GDN Midline 01/23/2023 Lumbar or Sacral Epidural Steroid Inj Sacral (Caudal) (18515) performed by Alvarez Monteiro MD at [facility] PAIN MGMT MSO PRO UPPER GI ENDOSCOPY, BIOPSY N/A 11/19/2018 EGD WITH BIOPSY (WRVU 2.49) performed by Nimesh Alicia MD at [facility] ENDOSCOPY RECTOCELE REPAIR 2014 Dr. Boo @ [facility] SHOULDER SURGERY Left 06/05/2017 L shoulder AC joint resection and bicep debridement, Dr. Adrien ePdro TOTAL KNEE ARTHROPLASTY 09/2009 Right total knee replacement Procedure Date: September 2009 Allergies: Allergies Allergen Reactions Atorvastatin Other (See Comments) Bupropion Increased depression Citalopram GI upset Codeine Other (See Comments) Duloxetine Increases blood sugar Escitalopram GI upset Exenatide Nausea And Vomiting Ezetimibe-Simvastatin Constipation Hydrocodone-Acetaminophen Itching Indomethacin Itching Liraglutide Metformin Itching Oxycodone-Acetaminophen Itching Prednisone Rosuvastatin Other (See Comments) Sertraline Other (See Comments) Tape, Permeable Adhesive Other (See Comments) Rash, peels off the skin Current Outpatient Medications Medication Sig Dispense Refill liothyronine (Cytomel) 5 mcg tablet Take 1 tablet by mouth daily. 90 tablet 0 dexlansoprazole (Dexilant) [address] capsule Take 1 capsule by mouth daily. 90 capsule 1 celecoxib (CeleBREX) 100 mg capsule Take 100 mg by mouth 2 times daily. prucalopride (Motegrity) 1 mg tablet Take 2 tablets by mouth daily. 180 tablet 3 isosorbide mononitrate CR (Imdur) 30 mg ER 24 hr tablet Take 1 tablet by mouth daily. 90 tablet 3 losartan (Cozaar) 25 mg tablet Take 0.5 tablets by mouth daily. 45 tablet 3 metoprolol succinate XL (Toprol-XL) 50 mg ER 24 hr tablet Take 1 tablet by mouth daily. 90 tablet 3 Repatha Pushtronex 420 mg/3.5 mL [...] 1/2 Needle INJECT INSULIN SUBCUTANEOUSLY DIRECTED. 3 No family history on file. Social History Socioeconomic History Marital status: Spouse [...] on file Housing Stability: Not on file Vitals: BP 128/83 Pulse 80 Ht 165.1 cm (5' 5) Wt 102.7 kg (226 lb 8 oz) SpO2 100% BMI 37.69 kg/m?? Exam: Psych: The patient is able to relay the details of her medical course, and is oriented. Cardiovascular: Heart rhythm is regular, rate controlled. PMI is palpated and is not displaced; there is no RV lift. S1 and S2 are normal. There is no systolic murmur, no diastolic murmur, no rubs orgallops. JVP is easily seen with the patient sitting upright and is estimated at less than 8 cm of water. Extremities: No LE edema. No stasis dermatitis or open ulcers. Respiratory: Clear to auscultation bilaterally; no labored breathing. Labs: Most recent labs available reviewed. CBC unremarkable. BMP unremarkable. Hemoglobin A1c 6.5%. Last LDL 69. ECGs: Personally reviewed. 02/07/2020: Normal sinus rhythm at 76 bpm. Cannot rule out anterior infarct. TTE (01/2020): Personally reviewed. 1. The left ventricular chamber size is normal. There is normal global left ventricular systolic function. The quantitative left ventricular ejection fraction by biplane Gross's method is 61%. There are left ventricular segmental wall motion abnormalities present at the apex as shown in the diagram below. 2. There is no LV apical thrombus (contrast administered). 3. The RV is normal in size and function. 4. No significant valvular abnormalities. Coronary angiography (02/07/2020): Personally reviewed. Dominance: Left Left Main There was mild diffuse (<=25% stenosis) disease of the entire vessel segment of the left main artery. Left Anterior Descending There was a 90% stenosis of the proximal segment of the left anterior descending artery (LAD). The mid segment of the LAD had a single discrete 40% stenosis. Left Circumflex There was mild diffuse (<=25% stenosis) disease of the entire vessel segment of the left circumflex artery (LCX). There was a 90% stenosis of the proximal segment of the first left posterolateral branch (LPL1) of the LCX. There was a 90% stenosis of the proximal segment of the left posterior descending branch (LPDA) of the LCX. Right Coronary Artery This vessel was not injected. Known occluded from earlier angiogram. Indication for Intervention: Coronary intervention was indicated for primary therapy for an acute myocardial infarction. The priority for the procedure was Emergent. The NCDR indication for the procedure was NSTE-ACS. LVEF within one week was 55%. Syntax Score was Intermediate. Staged PCI was performed for multivessel disease. PCI is performed after surgical consult and Surgery Not Recommended. Intervention Summary: Left Anterior Descending Artery Proximal 90% Stent insertion was performed on the 90% stenosis in the proximal segment of the LAD. This was a de maricarmen lesion. According to the ACC/AHA classification system, this lesion was a type B2 high risk lesion. Primary prevention of restenosis was the indication for stent insertion. This was the culprit lesion. A guidewire was placed across this lesion. Vessel flow pre intervention was DENIA 2. Lesion length was 15mm. Stent insertion was accomplished through a 7 Fr. XB 3.5 guide. The lesion was predilated with a 2.50mm EUPHORA 12 MM balloon with a maximum inflation pressure of 14 atmospheres. A premounted 3.50 x 18 mm Resolute EZEQUIEL (JEANETH) was deployed with a maximum inflation pressure of 18 atmospheres. Following stent deployment, the lesion was dilated using a 3.50mm NC EUPHORA 15 MM balloon with a maximum inflation pressure of 22 atmospheres. The final outcome was defined as successful. The residual stenosis following this intervention was 5%. The final DENIA flow was 3. First Left Posterolateral Branch of the LCX Proximal 90% Stent insertion was performed on the 90% stenosis in the proximal segment of the LPL1. This was a de maricarmen lesion. This lesion was designated a type C high risk lesion based on ACC/AHA classification system. Primary prevention of restenosis was the indication for stent insertion. This was the culprit lesion. A guidewire was placed across this lesion. Vessel flow pre intervention was DENIA 3. Lesion length was 18mm. The lesion involves a bifurcation with the LPDA. This bifurcation lesion was treated with a two stent, crush or mini-crush technique and a final kissing balloon post-dilation. Stent insertion was accomplished through a XB 3.5 guide. The lesion was predilated with a 2.00mm EUPHORA 15 MM balloon with a maximum inflation pressure of 15 atmospheres. A premounted 2.50 x 18 mm Resolute EZEQUIEL (JEANETH) was deployed with a maximum inflation pressure of 16 atmospheres. Following stent deployment, the lesion was dilated using a 3.00mm EUPHORA 15 MM balloon with a maximum inflation pressure of 16 atmospheres. The final outcome was defined as successful. The residual stenosis following this intervention was 5%. The final DENIA flow was 3. Left Posterior Descending Branch of the LCX Proximal 90% Stent insertion was performed on the 90% stenosis in the proximal segment of the LPDA. This was a de maricarmen lesion. According to the ACC/AHA classification system, this lesion was a type C high risk lesion. Primary prevention of restenosis was the indication for stent insertion. This was the culprit lesion. A guidewire was placed across this lesion. Vessel flow pre intervention was DENIA 3. Lesion length was 22mm. Stent insertion was accomplished through a 7 Fr. XB 3.5 guide. The lesion was predilated with a 2.00mm EUPHORA 20 MM balloon with a maximum inflation pressure of 20 atmospheres. A premounted 2.50 x 26 mm Resolute EZEQUIEL (JEANETH) was deployed with a maximum inflation pressure of 20 atmospheres. Following stent deployment, the lesion was dilated using a 2.00mm EUPHORA 15 MM balloon with a maximum inflation pressure of 16 atmospheres. The final outcome was defined as successful. The residual stenosis following this intervention was 5%. The final DENIA flow was 3. Assessment and recommendations: Cardiovascular #Chest pain, new, possibly anginal #ASCVD, three-vessel, 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 (LAD, LPL, LPDA), preserved LV systolic function, with new possibly anginal symptoms #Hyperlipidemia, on Repatha, documented allergies to atorvastatin and Crestor, last LDL 69 #Hypertension, well controlled Noncardiac #Obesity, class 2 (BMI 36), ~40 pound weight loss since 2019, now stable for the past 6 months, on Ozempic #Type 2 diabetes, recent hemoglobin A1c 6.5%, followed by Endocrinology #Current smoker, at least 45 pack years, currently 0.5-1 pack per day This is a very pleasant 62 y.o. female with history as above who presents in follow-up with a concern for new atypical chest pain, possibly anginal. She continues to smoke heavily. She does no structured exercise, has not lost further weight. However, lipids generally well managed, and blood pressure well- controlled. Given new chest pain, reasonable to obtain obtain stress imaging. Will obtain exercise SPECT with contingency for Lexiscan if unable to reach target heart rate. Increase Imdur to 60 mg daily. Smoke cessation extensively counseled. The patient was offered pharmacologic cessation aids. She says she cannot tolerate nicotine patches due to an adhesive allergy, and also got severelydepressed with both Chantix and Wellbutrin. She did agree to a referral to the [facility] tobacco cessation program, which I placed. The patient does clearly and unambiguously understands that continuing to smoke represents her greatest modifiable risk factor for cardiovascular morbidity and mortality. Follow-up plan pending stress testing results. I spent a total of 30 minutes on this encounter, including patient counseling, review of records, ordering testing, care coordination, and documentation. Lc Garcia MD, PARTH, FACC, FACP, FASE Cardiovascular Medicine Thank you for this referral. If you would like to discuss this patient, please contact me at [phone] or by email at [email or web address]. CC: JUAN PABLO Waterman documented in this encounter Plan of Treatment Scheduled Referrals Name Type Priority Associated Diagnoses Orde r Schedule Referral to Smoking Cessation Program Outpatient Referral Routine ASCVD (arteriosclerotic cardiovascular disease) Cigarette smoker Ordered: 05/30/2023 documented as of this encounter Results * NM Exercise Stress [...] who have questions please contact the health child care center assistant director that requested your imaging first. ? Electronically signed by: Neto Hinson MD, [facility] ([phone]), at 06/12/2023 2:58 PM Narrative 06/12/2023 2:58 PM EST EXAMINATION: NM PHARMACOLOGIC STRESS AND REST MYOCARDIAL PERFUSION CLINICAL HISTORY: Chest pain/anginal equiv, 10yr CHD risk > 20%, EST candidate R07.9, Chest pain, unspecified - I25.10, Atherosclerotic heart disease of [place] coronary artery without angina pectoris TECHNIQUE: During [...] patients who have questions please contactthe health child care center assistant director that requested your imaging first. Lc Garcia MD IMG NM ORDERABLES * NM Exercise Stress and Rest Myocardial Perfusion (06/12/2023 9:30 AM EST) Anatomical Region Laterality Modality Nuclear [...] who have questions please contact the health child care center assistant director that requested your imaging first. ? Electronically signed by: Neto Hinson MD, [facility] ([phone]), at 06/12/2023 2:58 PM Narrative 06/12/2023 2:58 PM EST EXAMINATION: NM PHARMACOLOGIC STRESS AND REST MYOCARDIAL PERFUSION CLINICAL HISTORY: Chest pain/anginal equiv, 10yr CHD risk > 20%, EST candidate R07.9, Chest pain, unspecified - I25.10, Atherosclerotic heart disease of [place] coronary artery without angina pectoris TECHNIQUE: During [...] patients who have questions please contactthe health child care center assistant director that requested your imaging first. Lc Garcia MD [facility] [place] ORDERABLES documented in this encounter Visit Diagnoses Diagnosis NSTEMI (non-ST elevated myocardial infarction) Acute myocardial infarction, subendocardial infarction, episode of care unspecified Chest pain, unspecified type ASCVD (arteriosclerotic cardiovascular disease) Unspecified cardiovascular disease Cigarette smoker Tobacco use disorder Chest pain, unspecified type ASCVD (arteriosclerotic cardiovascular disease) Unspecified cardiovascular disease Chest pain, unspecified type ASCVD (arteriosclerotic cardiovascular disease) Unspecified cardiovascular disease documented in this encounter Care Teams Supervisor Electron Tube Processing Relationship Specialty Start Date End Date Kaylee Jaquez PA [address] [place] [id number] PCP - General Family Medicine 01/18/22 documented as of this encounter
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
--- OUTSIDE RECORDS SUMMARY | 2023-11-25 15:31 | XMS_ITS | Encounter Summary ---
[place] [address] Care Team Providers Care Orthopedic Dentist Name Role Phone Kaylee Jaquez Primary Care Provider [phone] Encounter Details Date Type Department Care Team (Latest Contact Info) Description 05/30/2023 Travel Social History Tobacco Use Types Packs/Day [...] on filedocumented in this encounter Care Teams Orthopedic Dentist Relationship Specialty Start Date End Date Kaylee Jaquez PA [address] [facility] [place] [address] PCP - General Family Medicine 01/18/22 documented as of this encounter
--- OUTSIDE RECORDS SUMMARY | 2023-11-25 15:31 | XMS_ITS | Encounter Summary ---
Author Organization [facility] [place] [address] Care Team Providers Care Imitation Marble Mechanic Name Role Phone Kaylee Jaquez Primary Care Provider [phone] Reason for Visit * Reason Onset Date Comments Medication Refill 03/11/2023 Encounter Details Date Type Department Care Team (Late st Contact Info) Description 03/11/2023 Refill Gastroenterology at [facility] [address] Nimesh Alicia MD [facility] [place] [address] Social History Tobacco Use Types Packs/Day Years [...] on filedocumented in this encounter Care Teams Imitation Marble Mechanic Relationship Specialty Start Date End Date Kaylee Jaquez PA [address] [place] [facility] [place] [address] PCP - General Family Medicine 01/18/22 documented as of this encounter
--- OUTSIDE RECORDS SUMMARY | 2023-11-25 15:31 | XMS_ITS | Encounter Summary ---
[place] [address] Care Team Providers Care Corporate Travel Consultant Name Role Phone Kaylee Jaquez Primary Care Provider Encounter Details Date Type Department Care Team (Latest Contact Info) Description 07/31/2023 Travel Social History Tobacco Use Types Packs/Day [...] on filedocumented in this encounter Care Teams Corporate Travel Consultant Relationship Specialty Start Date End Date Kaylee Jaquez PA [address] [place] [address] PCP - General Family Medicine 01/18/22 documented as of this encounter
--- OUTSIDE RECORDS SUMMARY | 2023-11-25 15:31 | XMS_ITS | Encounter Summary ---
[place] [address] Care Team Providers Care Manager Nicu Name Role Phone Kaylee Jaquez Primary Care Provider [phone] Reason for Visit * Diagnostic Test (Routine) - Closed Specialty Diagnoses / Procedures Referred By Contac t Referred To Contact Radiology Diagnoses Chest pain, unspecified type ASCVD (arteriosclerotic cardiovascular disease) Procedures NM Exercise Stress and Rest Myocardial Perfusion Lc Garcia MD [facility] [place] [address] [place] [address] Referral ID Status Reason Start Date Expiration Date V isits Requested Visits Authorized [id number] Closed Specialty Service Requested 05/30/2023 11/28/2024 1 1 Encounter Details Date Type Department Care Team (Latest Contact Info) Description 06/12/2023 8:59 AM EST Hospital Encounter [place] [address] Lc Garcia MD [facility] [place] [address] Discharge Disposition: Home Social History Tobacco Use [...] Date/Time Associated Diagnosis Comments NM EXERCISE STRESS AND REST MYOCARDIAL PERFUSION Routine 06/12/2023 9:30 AM EST Chest pain, unspecified type ASCVD (arteriosclerotic cardiovascular disease) documented in this encounter Visit Diagnoses Not on filedocumented in this encounter Administered Medications Inactive Administered Medications - up to 3 most recent administrations Medication Order MAR Action Action Date Dose Rate Site regadenoson (Lexiscan) injection 0.4 mg 0.4 mg, Intravenous, ONCE, 1 dose, On Ayde 06/12/23 at 1130, Radiology Contrast, Routine Given 06/12/2023 11:30 AM EST 0.4 mg Righ t Arm technetium (Tc-99m) sestamibi injection 0-30 mCi 0-30 mCi, Intravenous, 2 TIMES DAILY PRN, 2 doses, Starting on Ayde 06/12/23 at 0936, Until Ayde 06/12/23 at 1100, Per Protocol, Radiology Contrast, Routine Given 06/12/2023 11:00 AM EST 26.1 mCi Right Arm Given 06/12/2023 9:35 AM EST 7.8 mCi Ri ght Arm documented in this encounter Care Teams Manager Nicu Relationship Specialty Start Date End Date Kaylee Jaquez PA [address] [place] [address] PCP - General Family Medicine 01/18/22 documented as of this encounter
--- OUTSIDE RECORDS SUMMARY | 2023-11-25 15:31 | XMS_ITS | Encounter Summary ---
Author Organization [facility] [place] [address] Care Team Providers Care Carbonation Equipment Operator Name Role Phone Kaylee Jaquez Primary Care Provider [phone] Reason for Visit * Reason Comments Medication Refill Encounter Details Date Type Department Care Team (Late st Contact Info) Description 04/30/2023 [place] [address] Marta Rivera MD [facility] [address] Social History Tobacco Use Types Packs/Day Years [...] on filedocumented in this encounter Care Teams Carbonation Equipment Operator Relationship Specialty Start Date End Date Kaylee Jaquez PA [address] [place] [address] PCP - General Family Medicine 01/18/22 documented as of this encounter
--- OUTSIDE RECORDS SUMMARY | 2023-11-25 15:31 | XMS_ITS | Encounter Summary ---
Author Organization [facility] [place] [address] Care Team Providers Care Shearer Screen Measurer And Trimmer Name Role Phone Kaylee Jaquez Primary Care Provider [phone] Encounter Details Date Type Department Care Team (Late st Contact Info) Description 06/02/2023 Telephone Tobacco Treatment at [facility] [place] [phone] Jennifer Barber Social History Tobacco Use Types [...] * Telephone Encounter - Jennifer Barber - 06/02/2023 9:53 AM EST LM asking pt to return call to schedule a Smoking cessation apptmt documented in this encounter Plan of Treatment Not on file documented as of this encounter Visit Diagnoses Not on filedocumented in this encounter Care Teams Shearer Screen Measurer And Trimmer Relationship Specialty Start Date End Date Kaylee Jaquez PA [address] [place], [place] [id number] PCP - General Family Medicine 01/18/22 documented as of this encounter
--- OUTSIDE RECORDS SUMMARY | 2023-11-25 15:31 | XMS_ITS | Encounter Summary ---
Author Organization [facility] [place] [address] Care Team Providers Care Alligator Hunter Name Role Phone Kaylee Jaquez Primary Care Provider [phone] Encounter Details Date Type Department Care Team (Late st Contact Info) Description 02/03/2023 Telephone [facility] [place] [phone] Fariba Palacio Social History Tobacco Use Types [...] * Telephone Encounter - Fariba Palacio - 02/03/2023 9:15 AM EDT LVM omn 02/03/23 in regards to rescheduling her appointment with Kayli Rader APRN from 02/14/23. Please call [phone]. SLB approved of a TOV documented in this encounter Plan of Treatment Not on file documented as of this encounter Visit Diagnoses Not on filedocumented in this encounter Care Teams Alligator Hunter Relationship Specialty Start Date End Date Kaylee Jaquez PA [address] [place] [address] PCP - General Family Medicine 01/18/22 documented as of this encounter
--- OUTSIDE RECORDS SUMMARY | 2023-11-25 15:31 | XMS_ITS | Encounter Summary ---
[place] [address] Care Team Providers Care Piece Jobber Name Role Phone Kaylee Jaquez Primary Care Provider [phone] Reason for Referral * Diagnostic Test (Routine) - Closed Specialty Diagnoses / Procedures Referred By Contac t Referred To Contact Radiology Diagnoses Chest pain, unspecified type ASCVD (arteriosclerotic cardiovascular disease) Procedures NM Exercise Stress and Rest Myocardial Perfusion Lc Garcia MD [facility] [place] [address] [place] [address] Referral ID Status Reason Start Date Expiration Date V isits Requested Visits Authorized [id number] Closed Specialty Service Requested 05/30/2023 11/28/2024 1 1 Reason for Visit * Diagnostic Test (Routine) - Closed Specialty Diagnoses / Procedures Referred By Contac t Referred To Contact Radiology Diagnoses Chest pain, unspecified type ASCVD (arteriosclerotic cardiovascular disease) Procedures NM Exercise Stress and Rest Myocardial Perfusion Lc Garcia MD [facility] [place] [address] [facility] [place] [address] Referral ID Status Reason Start Date Expiration Date V isits Requested Visits Authorized [id number] Closed Specialty Service Requested 05/30/2023 11/28/2024 1 1 Encounter Details Date Type Department Care Team (Latest Contact Info) Description 06/12/2023 8:59 AM EST Hospital Encounter [place] [address] Lc Garcia MD [facility] [place] [address] Chest pain, unspecified type; ASCVD (arteriosclerotic cardiovascular [...] this encounter Results * NM Exercise Stress and Rest Myocardial [...] who have questions please contact the health critical care unit nurse that requested your imaging first. ? Narrative 06/12/2023 2:58 PM EST EXAMINATION: NM PHARMACOLOGIC STRESS AND REST MYOCARDIAL PERFUSION CLINICAL HISTORY: Chest pain/anginal equiv, 10yr CHD risk > 20%, EST candidate R07.9, Chest pain, unspecified - I25.10, Atherosclerotic heart disease of habematolel coronary artery without angina pectoris TECHNIQUE: During [...] patients who have questions please contactthe health critical care unit nurse that requested your imaging first. Lc Garcia MD [facility] [place] ORDERABLES documented in this encounter Visit Diagnoses Diagnosis Chest pain, unspecified type ASCVD (arteriosclerotic cardiovascular disease) Unspecified cardiovascular disease documented in this encounter Administered Medications Inactive Administered Medications - up to 3 most recent administrations Medication Order MAR Action Action Date Dose Rate Site technetium (Tc-99m) sestamibi injection 0-30 mCi 0-30 mCi, Intravenous, 2 TIMES DAILY PRN, 2 doses, Starting on Ayde 06/12/23 at 0936, Until Ayde 06/12/23 at 1100, Per Protocol, Radiology Contrast, Routine Given 06/12/2023 11:00 AM EST 26.1 mCi Right Arm Given 06/12/2023 9:35 AM EST 7.8 mCi Ri ght Arm documented in this encounter Care Teams Piece Jobber Relationship Specialty Start Date End Date Kaylee Jaquez PA [address] [place] [address] PCP - General Family Medicine 01/18/22 documented as of this encounter
--- OUTSIDE RECORDS SUMMARY | 2023-11-25 15:31 | XMS_ITS | Encounter Summary ---
[place] [address] Care Team Providers Care Noodle Maker Name Role Phone Kaylee Jaquez Primary Care Provider Encounter Details Date Type Department Care Team (Late st Contact Info) Description 07/30/2023 Abstract Cardiology at [address] [phone] Kiki Peck, RN Social History Tobacco Use Types Packs/Day Years [...] on filedocumented in this encounter Care Teams Noodle Maker Relationship Specialty Start Date End Date Kaylee Jaquez PA [address] [place] [address] PCP - General Family Medicine 01/18/22 documented as of this encounter
--- OUTSIDE RECORDS SUMMARY | 2023-11-25 15:31 | XMS_ITS | Encounter Summary ---
[place] [address] Care Team Providers Care Auger Press Operator Name Role Phone Kaylee Jaquez Primary Care Provider [phone] Encounter Details Date Type Department Care Team (Latest Contact Info) Description 07/03/2023 Travel Social History Tobacco Use Types Packs/Day [...] on filedocumented in this encounter Care Teams Auger Press Operator Relationship Specialty Start Date End Date Kaylee Jaquez PA [address] [place] [address] PCP - General Family Medicine 01/18/22 documented as of this encounter
--- OUTSIDE RECORDS SUMMARY | 2023-11-25 15:31 | XMS_ITS | Encounter Summary ---
Author Organization [facility] [place] [address] Care Team Providers Care Labor Gang Supervisor Name Role Phone Kaylee Jaquez Primary Care Provider [phone] Reason for Visit * Reason Comments Medication Refill Encounter Details Date Type Department Care Team (Late st Contact Info) Description 07/30/2023 Refill [place] [address] Chiquis Chen MD [facility] [place] [address] Social History Tobacco Use Types Packs/Day Years [...] on filedocumented in this encounter Care Teams Labor Gang Supervisor Relationship Specialty Start Date End Date Kaylee Jaquez PA [address] [place] [address] PCP - General Family Medicine 01/18/22 documented as of this encounter
--- OUTSIDE RECORDS SUMMARY | 2023-11-25 15:31 | XMS_ITS | Encounter Summary ---
[place] [address] Care Team Providers Care Clip Riveter Name Role Phone Kaylee Jaquez Primary Care Provider [phone] Encounter Details Date Type Department Care Team (Latest Contact Info) Description 08/15/2023 Travel Social History Tobacco Use Types Packs/Day [...] on filedocumented in this encounter Care Teams Clip Riveter Relationship Specialty Start Date End Date Kaylee Jaquez PA [address] [facility] [place] [address] PCP - General Family Medicine 01/18/22 documented as of this encounter
--- OUTSIDE RECORDS SUMMARY | 2023-11-25 15:31 | XMS_ITS | Encounter Summary ---
Author Organization [facility] Address [facility] [place] [place] [address] Care Team Providers Care Timber Feller Name Role Phone Kaylee Jaquez Primary Care Provider [phone] Reason for Referral * Diagnostic Test (Routine) - Closed Specialty Diagnoses / Procedures Referred By Contac t Referred To Contact Gastroenterology Diagnoses Constipation, unspecified constipation type ARM for constipation Procedures High Definition Anal Manometry Nimesh Alicia MD [facility] [place] [address] [facility] Gastro [address] [place] [address] Referral ID Status Reason Start Date Expiration Date V isits Requested Visits Authorized [id number] Closed Consult, Test & Treat 07/14/2023 07/13/2024 1 1 Encounter Details Date Type Department Care Team (Late st Contact Info) Description 07/14/2023 Orders [place] [address] Nimesh Alicia MD [facility] [place] [address] Constipation, unspecified constipation type Social History Tobacco [...] of this encounter Plan of Treatment Scheduled Orders Name Type Priority Associated Diagnoses Orde r Schedule High Definition Anal Manometry GI Routine Constipation, unspecified constipation type Expected: 07/14/2023 (Approximate), Expires: 01/13/2024 documented as of this encounter Visit Diagnoses Diagnosis Constipation, unspecified constipation type documented in this encounter Care Teams Timber Feller Relationship Specialty Start Date End Date Kaylee Jaquez PA [address] [place] [address] PCP - General Family Medicine 01/18/22 documented as of this encounter
--- OUTSIDE RECORDS SUMMARY | 2023-11-25 15:31 | XMS_ITS | Encounter Summary ---
Author Organization [facility] Address [facility] [place] [address] Care Team Providers Care Apprentice Machinist Outside Name Role Phone Kaylee Jaquez Primary Care Provider Encounter Details Date Type Department Care Team (Latest Contact Info) Description 08/15/2023 11:40 AM EDT Office Visit Cardiology at [address] [id number] Lc Garcia MD [facility] [place] [address] ASCVD (arteriosclerotic cardiovascular disease); Hyperlipidemia, unspecified hyperlipidemia type; Non-cardiac chest pain; Current smoker Social History Tobacco Use Types Packs/Day [...] Sign Reading Time Taken Comments Blood Pressure 102/68 08/15/2023 11:18 AM EDT Pulse 76 08/15/2023 11:18 AM EDT Temperature - - Respiratory Rate - - Oxygen Saturation 98% 08/15/2023 11: 18 AM EDT Inhaled Oxygen Concentration - - Weight 101.1 kg (222 lb 12.8 oz) 2023 11:18 AM EDT Height 165.1 cm (5' 5) 08/15/2023 11:1 8 AM EDT Body Mass Index 37.08 08/15/2023 11:18 AM EDT documented in this encounter Progress Notes * Lc Garcia MD - 08/15/2023 11:40 AM EDT [facility] Outpatient Cardiology Patient: Danielle Mills : 1960 Reason for follow up: ASCVD chest pain PCP: JUAN PABLO Waterman History of present illness: Danielle Mills is a 63 y.o. 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 History is notable for multivessel PCI in the context of non- STEMI in January 2022 performed at [facility], referred from [facility]. The patient [...] on Lasix. Discharge weight was 256 pounds. She was switched to Repatha by Dr. Jenkins after both Crestor and atorvastatin resulted in severe constipation. She is doing well with Repatha and had labs documenting an LDL of 69. She quit smoking briefly after her myocardial infarction but has remained a smoker for the past couple years. She started smoking at the age of 17 and smokes about a pack a day. At her last visit in May, the patient complained of chest pain. We obtained perfusion imaging which was normal. She continues to experience chest pain which is worse with arm movement and position change. Review of systems: Cardiovascular: Denies orthopnea, LE edema, or PND; no palpitations. 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8) performed by Alvarez Monteiro MD at [facility] PAIN MGMT MSO PRO INJECTION DX/THER SBST INTRLMNR LMBR/SAC W/IMG GDN Midline 01/23/2023 Lumbar or Sacral Epidural Steroid Inj Sacral (Caudal) (93713) performed by Alvarez Monteiro MD at [facility] PAIN MGMT MSO PRO UPPER GI ENDOSCOPY, BIOPSY N/A 11/19/2018 EGD WITH BIOPSY (WRVU 2.49) performed by Nimesh Alicia MD at [facility] ENDOSCOPY RECTOCELE REPAIR 2014 Dr. Boo @ [facility] SHOULDER SURGERY Left 06/05/2017 L shoulder AC joint resection and bicep debridement, Dr. Adrien Pedro TOTAL KNEE ARTHROPLASTY 09/2009 Right total knee [...] the skin- Can use paper tape Current Outpatient Medications Medication Sig Dispense Refill liothyronine (Cytomel) 5 mcg tablet Take 1 tablet by mouth daily. 90 tablet 3 metoprolol succinate XL (Toprol-XL) 50 mg ER 24 hr tablet Take 1 tablet by mouth daily. 90 tablet 3 isosorbide mononitrate CR (Imdur) 30 mg ER 24 hr tablet Take 1 tablet by mouth once daily (Patient taking differently: Take 60 mg by mouth daily.) 90 tablet 1 terbinafine (LamISIL) 250 mg tablet Take 1 tablet by mouth daily. dexlansoprazole (Dexilant) [address] capsule Take 1 capsule by mouth daily. 90 capsule 1 prucalopride (Motegrity) 1 mg tablet Take 2 [...] Take 0.5 mg by mouth daily. 2 predniSONE (Deltasone) 10 mg tablet Take 4 tablets by mouth x 4 days, take 3 tablets by mouth x 3 days, take 2 tablets by mouth x 2 days, take 1 tablet by mouth x 1 day (Patient not taking: Reported on 08/15/2023) 30 tablet 0 celecoxib (CeleBREX) 100 mg capsule Take 100 mg by mouth 2 times daily. BD ULTRA-FINE ORIG PEN NEEDLE 29 gauge x 1/2 Needle INJECT INSULIN SUBCUTANEOUSLY DIRECTED. 3 Social History Socioeconomic History Marital status: Spouse [...] Housing Stability: Not on file Vitals: BP 102/68 Pulse 76 Ht 165.1 cm (5' 5) Wt 101.1 kg (222 lb 12.8 oz) SpO2 98% BMI 37.08 kg/m?? Exam: Psych: The patient is able [...] BMP unremarkable. Hemoglobin A1c 6.5%. Last LDL 43. ECGs: Personally reviewed. 02/07/2020: Normal sinus rhythm [...] of the LAD. This was a de maricarmne lesion. According to the ACC/AHA classification system, [...] 5%. The final DENIA flow was 3. Pharmacologic SPECT (06/12/23): 1. No ischemia or scar. 2. Left ventricular function is normal. Assessment and recommendations: Cardiovascular #Chest pain, musculoskeletal by history, normal [...] per day This is a very pleasant 63 y.o. female with history as above who presents in follow-up. Earlier this year, she underwent stress testing due to chest pain which was normal. She continues to have chestpain which is likely musculoskeletal. She has preserved LV systolic function. She is now on Repatha and has documented allergies to both atorvastatin and Crestor. Recent LDL is well under 70. Other than smoking, risk factors are well-managed. She continues to smoke fairly heavily. At our prior visit in May, I referred the patient to tobacco cessation counseling. The tobacco cessation counselor called the patient 3 times, but no calls were returned. The patient today declines a rereferral for tobacco cessation counseling. She has tried Wellbutrin in the past with the symptom of depression.I did once again counseled the patient that continue to smoke represents her greatest modifiable risk factor in terms of cardiovascular morbidity and mortality. She does not seem ready to quit, though her with her at the visit today seems supportive and does not smoke himself. In terms of changes at today's visit, we will stop very low-dose losartan 12.5 mg daily due to a systolic blood pressure ranging between 91 and 102 on recent clinic visits. The patient should check her blood pressure daily for the next week and let us know if her systolic pressure goes over 130 mmHg. Other than this, we will continue current medications. Patient has not needed refills. Schedule follow-up in 1 year, sooner if any concerning symptoms. I spent a total of 30 minutes on this encounter, including patient counseling, review of records, and documentation. Lc aGrcia MD, PARTH, FACC, FACP, FASE Cardiovascular Medicine Thank you for this referral. If you would like to discuss this patient, please contact me at [phone] or by email at [email or web address]. CC: JUAN PABLO Waterman documented in this encounter Plan of Treatment Not on file documented as of this encounter Visit Diagnoses Diagnosis ASCVD (arteriosclerotic cardiovascular disease) Unspecified cardiovascular disease Hyperlipidemia, unspecified hyperlipidemia type Non-cardiac chest pain Other chest pain Current smoker Tobacco use disorder documented in this encounter Care Teams Apprentice Machinist Outside Relationship Specialty Start Date End Date Kaylee Jaquez PA [address] [place] [address] PCP - General Family Medicine 01/18/22 documented as of this encounter
--- OUTSIDE RECORDS SUMMARY | 2023-11-25 15:31 | XMS_ITS | Encounter Summary ---
Author Organization [facility] Address [facility] [place] [address] Care Team Providers Care Service Unit Operator Oil Well Name Role Phone Kaylee Jaquez Primary Care Provider [phone] Reason for Visit * Reason Onset Date Comments Medication Refill 08/04/2023 Encounter Details Date Type Department Care Team (Late st Contact Info) Description 08/04/2023 Refill Cardiology at [address] [address] Lc Garcia MD [facility] [place] [address] Medication Refill Social History Tobacco Use Types [...] unspecified documented in this encounter Care Teams Service Unit Operator Oil Well Relationship Specialty Start Date End Date Kaylee Jaquez PA [address] [place] [address] PCP - General Family Medicine 01/18/22 documented as of this encounter
--- OUTSIDE RECORDS SUMMARY | 2023-11-25 15:31 | XMS_ITS | Encounter Summary ---
[place] [address] Care Team Providers Care Capsule Machine Operator Name Role Phone Kaylee Jaquez Primary Care Provider [phone] Reason for Visit * Diagnostic Test (Routine) - Closed Specialty Diagnoses / Procedures Referred By Contac t Referred To Contact Radiology Diagnoses Chest pain, unspecified type ASCVD (arteriosclerotic cardiovascular disease) Procedures NM Exercise Stress and Rest Myocardial Perfusion Lc Garcia MD [facility] [place] [address] [place] [address] Referral ID Status Reason Start Date Expiration Date V isits Requested Visits Authorized [id number] Closed Specialty Service Requested 05/30/2023 11/28/2024 1 1 Encounter Details Date Type Department Care Team (Latest Contact Info) Description 06/12/2023 8:59 AM EST Hospital Encounter [place] [address] Lc Garcia MD [facility] [place] [address] Discharge Disposition: Home Social History [...] who have questions please contact the health career resource specialist that requested your imaging first. ? Narrative 06/12/2023 2:58 PM EST EXAMINATION: NM PHARMACOLOGIC STRESS AND REST MYOCARDIAL PERFUSION CLINICAL HISTORY: Chest pain/anginal equiv, 10yr CHD risk > 20%, EST candidate R07.9, Chest pain, unspecified - I25.10, Atherosclerotic heart disease of [place] coronary artery without angina pectoris TECHNIQUE: During [...] patients who have questions please contactthe health career resource specialist that requested your imaging first. Lc Garcia [...] who have questions please contact the health career resource specialist that requested your imaging first. ? Narrative 06/12/2023 2:58 PM EST EXAMINATION: NM PHARMACOLOGIC STRESS AND REST MYOCARDIAL PERFUSION CLINICAL HISTORY: Chest pain/anginal equiv, 10yr CHD risk > 20%, EST candidate R07.9, Chest pain, unspecified - I25.10, Atherosclerotic heart disease of [place] coronary artery without angina pectoris TECHNIQUE: During [...] patients who have questions please contactthe health career resource specialist that requested your imaging first. Lc Garcia MD IMG NM ORDERABLES documented in this encounter Visit Diagnoses Not on filedocumented in this encounter Care Teams Capsule Machine Operator Relationship Specialty Start Date End Date Kaylee Jaquez PA [address] [address] PCP - General Family Medicine 01/18/22 documented as of this encounter
--- OUTSIDE RECORDS SUMMARY | 2023-11-25 15:31 | XMS_ITS | Encounter Summary ---
Author Organization [facility] [place] [address] Care Team Providers Care Bible Worker Name Role Phone Kaylee Jaquez Primary Care Provider [phone] Reason for Referral * Consultation (Routine) - Authorized Specialty Diagnoses / Procedures Referred By Contac t Referred To Contact Orthopaedics Diagnoses Pain of right hip PT ALREADY HAS APPT SCHED , ATTACHED REFERRAL TO APPT Kaylee Jaquez PA [address] [place] [address] Elvin Whiting MD [address] [place] [address] Referral ID Status Reason Start Date Expiration Date Visits Requested Visits Authorized [id number] Authorized Consult, Test & Treat PCP Updated and/or Approved 06/26/2023 06/25/2024 6 6 Encounter Details Date Type Department Care Team (Late st Contact Info) Description 06/26/2023 Transcribe Orders eDH Incoming Referrals [phone] Kaylee Jaquez PA [address] [place] [phone] Pain of right hip Social History Tobacco Use Types [...] Priority Associated Diagnoses Order Schedule Referral to Orthopaedics Outpatient Referral Routine Pain of right hip Ordered: 06/26/2023 documented as of this encounter Visit Diagnoses Diagnosis Pain of right hip documented in this encounter Care Teams Bible Worker Relationship Specialty Start Date End Date Kaylee Jaquez PA [address] [place] [address] PCP - General Family Medicine 01/18/22 documented as of this encounter
--- OUTSIDE RECORDS SUMMARY | 2023-11-25 15:31 | XMS_ITS | Encounter Summary ---
[place] [address] Care Team Providers Care Master Merchandiser Name Role Phone Kaylee Jaquez Primary Care Provider Encounter Details Date Type Department Care Team (Latest Contact Info) Description 07/24/2023 Travel Social History Tobacco Use Types Packs/Day [...] on filedocumented in this encounter Care Teams Master Merchandiser Relationship Specialty Start Date End Date Kaylee Jaquez PA [address] [facility] [place] [address] PCP - General Family Medicine 01/18/22 documented as of this encounter
--- OUTSIDE RECORDS SUMMARY | 2023-11-25 15:31 | XMS_ITS | Encounter Summary ---
Author Organization [facility] [address] Care Team Providers Care Game Artist Name Role Phone Kaylee Jaquez Primary Care Provider [phone] Encounter Details Date Type Department Care Team (Late st Contact Info) Description 07/24/2023 Telephone [place] [address] Colten Catherine Social History Tobacco Use Types Packs/Day Years [...] encounter Miscellaneous Notes * Telephone Encounter - Colten Catherine - 07/24/2023 9:27 AM EDT Inbound/Outbound: Outbound Spoke to Patient/Left Message: Left message Notes: Outbound call to patient to schedule motility lab testing from referral. Left message askingfor callback to schedule. Return calls can be handled by: [facility] Senior Manufacturing Technician documented in this encounter Plan of Treatment Not on file documented as of this encounter Visit Diagnoses Not on filedocumented in this encounter Care Teams Game Artist Relationship Specialty Start Date End Date Kaylee Jaquez PA [address] [place] [address] PCP - General Family Medicine 01/18/22 documented as of this encounter
--- OUTSIDE RECORDS SUMMARY | 2023-11-25 15:31 | XMS_ITS | Encounter Summary ---
Author Organization [facility] [place] [address] Care Team Providers Care Allergy Nurse Name Role Phone Kaylee Jaquez Primary Care Provider [phone] Reason for Visit * Reason Onset Date Comments Medication Refill 04/30/2023 Encounter Details Date Type Department Care Team (Late st Contact Info) Description 04/30/2023 Ref[place] [address] Marta Rivera MD [facility] [place] [address] Social History Tobacco Use Types Packs/Day Years [...] on filedocumented in this encounter Care Teams Allergy Nurse Relationship Specialty Start Date End Date Kaylee Jaquez PA [address] [place] [address] PCP - General Family Medicine 01/18/22 documented as of this encounter
--- OUTSIDE RECORDS SUMMARY | 2023-11-25 15:32 | XMS_ITS | Encounter Summary ---
[place] [address] Care Team Providers Care Design Eng Name Role Phone Steven Jeffries MD Primary Care Provider Reason for Referral * Consultation (Routine) - Closed Specialty Diagnoses / Procedures Referred By Contac t Referred To Contact [facility] Diagnoses Intervertebral disc disease Degenerative disc disease, lumbar Radiculopathy of lumbar region Spine - Lumbar disc protrusion w/ nerve impingement/ tried PT/ MRI 11/23/21 @ [facility] *AMP or Kaylee Alfonso PA [address] [place] [address] [facility] [place] [address] Referral ID Status Reason Start Date Expiration Date V isits Requested Visits Authorized [id number] Closed Evaluate and Treat PCP Updated and/or Approved 11/28/2021 11/28/2022 6 6 Encounter Details Date Type Department Care Team (Latest Contact Info) Description 11/28/2021 Transcribe Orders eDH Incoming Referrals [phone] Kaylee Jaquez PA [address] [place] [address] Intervertebral disc disease; Degenerative disc disease, lumbar; Radiculopathy of lumbar region Social History Tobacco Use Types Packs/Day Years [...] Associated Diagnoses Orde r Schedule Referral to [facility] and Spine Center (Internal only) Outpatient Referral Routine Intervertebral disc disease Degenerative disc disease, lumbar Radiculopathy of lumbar region Ordered: 11/28/2021 documented as of this encounter Visit Diagnoses Diagnosis Intervertebral disc disease Other and unspecified disc disorder of unspecified region Degenerative disc disease, lumbar Degeneration of lumbar or lumbosacral intervertebral disc Radiculopathy of lumbar region Thoracic or lumbosacral neuritis or radiculitis, unspecified documented in this encounter Care Teams Design Eng Relationship Specialty Start Date End Date Steven Jeffries MD [address] [place] [address] PCP - General General Internal Medicine 02/12/2101/17 documented as of this encounter
--- OUTSIDE RECORDS SUMMARY | 2023-11-25 15:32 | XMS_ITS | Encounter Summary ---
[place] [address] Care Team Providers Care Fire Range Technician Name Role Phone Kaylee Jaquez Primary Care Provider Encounter Details Date Type Department Care Team (Latest Contact Info) Description 07/09/2022 Travel Social History Tobacco Use Types Packs/Day [...] on filedocumented in this encounter Care Teams Fire Range Technician Relationship Specialty Start Date End Date Kaylee Jaquez PA [address] [place] [address] PCP - General Family Medicine 01/18/22 documented as of this encounter
--- OUTSIDE RECORDS SUMMARY | 2023-11-25 15:32 | XMS_ITS | Encounter Summary ---
Author Organization [facility] [place] [address] Care Team Providers Care Marketing Operations Manager Name Role Phone Kaylee Jaquez Primary Care Provider [phone] Encounter Details Date Type Department Care Team (Late st Contact Info) Description 11/22/2022 Telephone [facility] [place] [phone] Fariba Palacio Social History Tobacco Use Types [...] * Telephone Encounter - Fariba Palacio - 11/22/2022 12:21 PM EDT LVM on 11/22/22 in regards to a [employer]- message left by patient stating she is having back pain with leg pain that is getting worse. Patient was requesting a follow up with Dr. Cadena. I asked to call [phone]. documented in this encounter Plan of Treatment Not on file documented as of this encounter Visit Diagnoses Not on filedocumented in this encounter Care Teams Marketing Operations Manager Relationship Specialty Start Date End Date Kaylee Jaquez PA [address] [place] [address] PCP - General Family Medicine 01/18/22 documented as of this encounter
--- OUTSIDE RECORDS SUMMARY | 2023-11-25 15:32 | XMS_ITS | Encounter Summary ---
[place] [address] Care Team Providers Care Collar Pointer Name Role Phone Kaylee Jaquez Primary Care Provider Encounter Details Date Type Department Care Team (Latest Contact Info) Description 12/30/2022 Travel Social History Tobacco Use Types Packs/Day [...] on filedocumented in this encounter Care Teams Collar Pointer Relationship Specialty Start Date End Date Kaylee Jaquez PA [address] [facility] [place] [address] PCP - General Family Medicine 01/18/22 documented as of this encounter
--- OUTSIDE RECORDS SUMMARY | 2023-11-25 15:32 | XMS_ITS | Encounter Summary ---
Author Organization [facility] [place] [address] Care Team Providers Care Window Dresser Name Role Phone Kaylee Jaquez Primary Care Provider [phone] Reason for Visit * Reason Onset Date Comments Medication Refill 01/26/2022 Encounter Details Date Type Department Care Team (Late st Contact Info) Description 01/26/2022 [place] [address] Marta Rivera MD [facility] [place] [address] Social History Tobacco Use Types Packs/Day Years [...] on filedocumented in this encounter Care Teams Window Dresser Relationship Specialty Start Date End Date Kaylee Jaquez PA [address] [place] [address] PCP - General Family Medicine 01/18/22 documented as of this encounter
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
--- OUTSIDE RECORDS SUMMARY | 2023-11-25 15:32 | XMS_ITS | Encounter Summary ---
[place] [address] Care Team Providers Care Wire Tester Name Role Phone Kaylee Jaquez Primary Care Provider Encounter Details Date Type Department Care Team (Late st Contact Info) Description 12/25/2022 Ancillary Procedure [place] [address] Kaylee Jaquez PA [address] [place] [address] Social History Tobacco Use Types Packs/Day Years [...] Associated Diagnosis Comments FILM LIBRARY STORAGE ONLY MR SPINE Routine 12/25/2022 12:00 AM EDT documented in this encounter Results * Film Library- Storage Only MR Spine (12/25/2022 12:00 AM EDT) Narrative [facility] - 12/27/2022 8:59 AM EDT This exam is auto-finalizing. It's purpose is for storage only. Kaylee ALMEIDA [facility] FILM LIBRARY ORD ERABLES [place], [place] documented in this encounter Visit Diagnoses Not on filedocumented in this encounter Care Teams Wire Tester Relationship Specialty Start Date End Date Kaylee Jaquez PA [address] [place] [id number] PCP - General Family Medicine 01/18/22 documented as of this encounter
--- OUTSIDE RECORDS SUMMARY | 2023-11-25 15:32 | XMS_ITS | Encounter Summary ---
Author Organization [facility] [place] [address] Care Team Providers Care Rn Clinical Coordinator Name Role Phone Kaylee Jaquez Primary Care Provider [phone] Encounter Details Date Type Department Care Team (Late st Contact Info) Description 01/22/2023 Telephone [place] [id number] Charlee Porter RN Social History Tobacco Use Types Packs/Day [...] encounter Miscellaneous Notes * Telephone Encounter - Charlee Porter RN - 01/22/2023 11:42 AM EDT Pt called in to say that she might have an infection in one of her toes, she is seeing her doctor today at 1:30pm. She wanted to know if that would affect her having her procedure tomorrow. I told the pt yes, it would preclude her from getting the procedure. Pt will call me back after she is evaluated by her doctor, and she understands if it is infected, she will need to reschedule tomorrow's procedure. documented in this encounter Plan of Treatment Not on file documented as of this encounter Visit Diagnoses Not on filedocumented in this encounter Care Teams Rn Clinical Coordinator Relationship Specialty Start Date End Date Kaylee Jaquez PA [address] [address] PCP - General Family Medicine 01/18/22 documented as of this encounter
--- OUTSIDE RECORDS SUMMARY | 2023-11-25 15:32 | XMS_ITS | Encounter Summary ---
Author Organization [facility] [place] [address] Care Team Providers Care Comb Winder Name Role Phone Kaylee Jaquez Primary Care Provider [phone] Reason for Visit * Reason Comments Medication Refill Encounter Details Date Type Department Care Team (Late st Contact Info) Description 01/26/2022 [place] [address] Marta Rivera MD [facility] ENDOCR[facility]OLOG[place] [address] Social History Tobacco Use Types Packs/Day Years [...] on filedocumented in this encounter Care Teams Comb Winder Relationship Specialty Start Date End Date Kaylee Jaquez PA [address] [place] [address] PCP - General Family Medicine 01/18/22 documented as of this encounter
--- OUTSIDE RECORDS SUMMARY | 2023-11-25 15:32 | XMS_ITS | Encounter Summary ---
[place] [address] Care Team Providers Care Processing Archivist Name Role Phone Kaylee Jaquez Primary Care Provider [phone] Encounter Details Date Type Department Care Team (Latest Contact Info) Description 03/04/2022 2:20 PM EDT Ancillary Procedure XRay at [address] [address] Elvin Whiting MD [address] [place] [id number] Primary osteoarthritis of right knee Social History Tobacco Use Types Packs/Day Years [...] Name Priority Date/Time Associated Diagnosis Comments XR KNEE AP LAT AXIAL PATELLA RIGHT Routine 03/04/2022 2:27 PM EDT Primary osteoarthritis of right knee documented in this encounter Results * XR Knee 3 Views Right (03/04/2022 2:27 PM EDT) Anatomical Region Laterality Modality Knee Right Digital Radiogra phy Impressions 03/04/2022 3:09 PM EDT Right total knee arthroplasty radiographic evidence of complication or acute osseous abnormality Thank you for letting us participate in the care of this patient. ??If you are a health care provider and have any questions regarding this report, please contact the number below. ??For patients who have questions please contact the health client care representative that requested your imaging first. ? Electronically signed by: Hernesto Frias DO [facility] ([phone]), at 03/04/2022 3:09 PM Narrative 03/04/2022 3:09 PM EDT EXAMINATION: XR KNEE 3 VIEWS RIGHT CLINICAL HISTORY: right knee pain s/p tka TECHNIQUE: 3 views RIGHT knee COMPARISON: Knee radiographs dating back to 2016 FINDINGS: Right total knee arthroplasty is in place. Hardware remains intact with near anatomic alignment. No periprosthetic fracture or radiolucency is present. There is healed fracture deformity of the distal mid femoral diaphysis with compared to prior studies. Limited evaluation of the contralateral demonstrates stable degenerative changes and healed fracture of the fibula. Procedure Note Hernesto Frias DO - 03/04/2022 EXAMINATION: XR KNEE 3 VIEWS RIGHT CLINICAL HISTORY: right knee pain s/p tka TECHNIQUE: 3 views RIGHT knee COMPARISON: Knee radiographs dating back to 2016 FINDINGS: Right total knee arthroplasty is in place. Hardware remains intact withnear anatomic alignment. No periprosthetic fracture or radiolucency is present.There is healed fracture deformity of the distal mid femoral diaphysis withcompared to prior studies. Limited evaluation of the contralateral demonstrates stable degenerativechanges and healed fracture of the fibula. IMPRESSION Right total knee arthroplasty radiographic evidence of complication oracute osseous abnormality Thank you for letting us participate in the care of this patient. If youare a health care provider and have any questions regarding this report,please contact the number below. For patients who have questions please contactthe health client care representative that requested your imaging first. Elvin Whiting MD IMG DX ORDERABLES documented in this encounter Visit Diagnoses Diagnosis Primary osteoarthritis of right knee Primary localized osteoarthrosis, lower leg documented in this encounter Care Teams Processing Archivist Relationship Specialty Start Date End Date Kaylee Jaquez PA [address] [place] [address] PCP - General Family Medicine 01/18/22 documented as of this encounter
--- OUTSIDE RECORDS SUMMARY | 2023-11-25 15:32 | XMS_ITS | Encounter Summary ---
[place] [address] Care Team Providers Care Irrigation District Manager Name Role Phone Kaylee Jaquez Primary Care Provider [phone] Reason for Visit * Reason Comments Prior Authorization Repatha Pushtronex S ystem 420 SOCT Encounter Details Date Type Department Care Team (Late st Contact Info) Description 09/09/2022 Specialty [place] [address] Paula Marcelo CPHT Social History Tobacco Use Types Packs/Day Years [...] as of this encounter Progress Notes * Paula Marcelo - 09/09/2022 2:45 PM EDT [facility], Benefits Investigation Patient: Danielle Mills Patient : 1960 Patient Address: [address] [place] [address] (home) Medication Name: REPATHA PUSHTRONEX 420 MG/3.5 ML SUBCUTANEOUS WEARABLE INJECTOR Medication ID: [id number] Patient Location: [facility] 4A Patient Location Comment: Medication Strength Frequency Requested: Repatha Pushtronex System 420 SOCT: 3.5 mLs by subcutaneous (via wearable injector) route every 30 days Qty/Day Supply: 09/08 New Start: New to Pharmacy Diagnosis & ICD-10 Code: ASCVD, I25.10 Subscriber Insurance: [employer] Subscriber Insurance Comment: Fax: Physician: ARIK BARON Physician Comment : PA Status: PA Not Needed Insurance mandated Pharmacy: [facility] Fill[facility] at [facility]: Yes Insurance requirements/notes: None Copay: Unknown Copay assistance: None Copay assistance comment: Pharmacy staff will be reaching out to the patient to inform them of their medication[facility]. If applicable, a pharmacist will speak with the patient to offer our specialty pharmacy services and to arrange delivery of their medication. Paula Marcelo 09/09/22 2:50 PM documented in this encounter Plan of Treatment Not on file documented as of this encounter Visit Diagnoses Not on filedocumented in this encounter Care Teams Irrigation District Manager Relationship Specialty Start Date End Date Kaylee Jaquez PA [address] [place] [address] PCP - General Family Medicine 01/18/22 documented as of this encounter
--- OUTSIDE RECORDS SUMMARY | 2023-11-25 15:32 | XMS_ITS | Encounter Summary ---
Author Organization [facility] [place] [address] Care Team Providers Care Machinist/Machine Builder Name Role Phone Kaylee Jaquez Primary Care Provider [phone] Reason for Visit * Reason Onset Date Comments Medication Refill 09/04/2022 Encounter Details Date Type Department Care Team (Late st Contact Info) Description 09/04/2022 Refill Cardiology at [address] [address] Lc Garcia MD [facility] [place] [address] Medication Refill Social History Tobacco Use Types [...] Visit Diagnoses Diagnosis Hyperlipidemia, unspecified hyperlipidemia type NSTEMI (non-ST elevated myocardial infarction) Acute myocardial infarction, subendocardial infarction, episode of care unspecified documented in this encounter Care Teams Machinist/Machine Builder Relationship Specialty Start Date End Date Kaylee Jaquez PA [address] [place] [address] PCP - General Family Medicine 01/18/22 documented as of this encounter
--- OUTSIDE RECORDS SUMMARY | 2023-11-25 15:32 | XMS_ITS | Encounter Summary ---
Author Organization [facility] [place] [address] Care Team Providers Care Risk Management Intern Name Role Phone Kaylee Jaquez Primary Care Provider Encounter Details Date Type Department Care Team (Late st Contact Info) Description 07/17/2022 Notes Only Gastroenterology at [facility] [place] [address] Nimesh Alicia MD [facility] [place] [address] Social History Tobacco Use Types Packs/Day Years [...] on filedocumented in this encounter Care Teams Risk Management Intern Relationship Specialty Start Date End Date Kaylee Jaquez PA [address] [place] [address] PCP - General Family Medicine 01/18/22 documented as of this encounter
--- OUTSIDE RECORDS SUMMARY | 2023-11-25 15:32 | XMS_ITS | Encounter Summary ---
[facility] Organization [facility] [place] [address] Care Team Providers Care Health Worker Name Role Phone Kaylee Jaquez Primary Care Provider [phone] Reason for Visit * Auth/Cert (Routine) Specialty Diagnoses / Procedures Referred By Contac t Referred To Contact Diagnoses Lumbar radiculopathy lumbar radiculopathy Procedures PRO INJECTION DX/THER SBST INTRLMNR LMBR/SAC W/IMG GDN PRO INJECTION DX/THER SBST INTRLMNR LMBR/SAC W/IMG GDN INJECTION, EPIDURAL, LUMBAR OR SACRAL (CAUDAL), WITH IMAGING GUIDANCE (WRVU 1.8) Lumbar or Sacral Epidural Steroid Inj Sacral (Caudal) (89551) Alvarez Monteiro MD [facility] [place] [address] [facility] Referral ID Status Reason Start Date Expiration Date Visits Re quested Visits Authorized [id number] 1 1 Encounter Details Date Type Department Care Team (Latest Contact Info) Description 01/23/2023 10:13 AM EDT - 01/23/2023 11:37 AM EDT Hospital [place] [id number] Alvarez Monteiro MD [facility] [place] [address] Left lumbar radiculopathy Discharge Disposition: Home Social History Tobacco Use [...] on file) Attending Physician: Alvarez Monteiro MD [facility] PREPROCEDURE HISTORY AND [...] Attending Physician [facility] [place] [address] / documented in this encounter Miscellaneous Notes * Op Note - Alvarez Monteiro MD - 01/23/2023 11:25 AM EDT Pain Management Operative Note Patient Name: Danielle Mills : [id number] MR#: [id number] Case Date: 01/23/2023 Surgeon: Surgeon(s) and Role: [...] procedure. Alvarez Monteiro MD [facility] Dental Director of Anesthesiology [facility] [address] [address] / [facility] CC: Unknown None documented in this encounter Plan of Treatment Not on file documented as of this encounter Procedures Procedure Name Priority Date/Time Associated Diagnosis Comments Injection Dx/Ther Sbst Intrlmnr Lmbr/Sac W/Img Gdn (28814) 01/23/2023 11:22 AM EDT Left lumbar radiculopathy Injection Dx/Ther Sbst Intrlmnr Lmbr/Sac W/Img Gdn (72224) 01/23/2023 11:22 AM EDT Left lumbar radiculopathy INJECTION, EPIDURAL, LUMBAR OR SACRAL (CAUDAL), WITH IMAGING GUIDANCE Routine 01/23/2023 10:27 AM EDT Left lumbar radiculopathy documented in this encounter Visit Diagnoses Diagnosis Left lumbar radiculopathy Thoracic or lumbosacral neuritis or radiculitis, unspecified Radiculopathy of lumbar region Thoracic or lumbosacral neuritis or radiculitis, unspecified documented in this encounter Active and Recently [...] Provid er: Arvind Gordon MD - Comment: JM) documented in this encounter Care Teams Health Worker Relationship Specialty Start Date End Date Kaylee Jaquez PA [address] [place] [address] PCP - General Family Medicine 01/18/22 documented as of this encounter
--- OUTSIDE RECORDS SUMMARY | 2023-11-25 15:32 | XMS_ITS | Encounter Summary ---
Author Organization [facility] [place] [address] Care Team Providers Care Hand Plate Stacker Name Role Phone Kaylee Jaquez Primary Care Provider [phone] Encounter Details Date Type Department Care Team (Latest Contact Info) Description 01/03/2023 10:00 AM EDT Office Visit [place] [phone] Kayli Rader CHARGE ENTRY SPECIALIST [facility] [place] [address] Left lumbar radiculopathy Social History Tobacco Use Types Packs/Day Years [...] on file documented as of this encounter Patient Instructions * Patient Instructions* Kayli Rader APRN - 01/03/2023 10:00 AM EDT I have ordered the following injection plan for you: []Cervical Epidural Injection [x]Lumbar Epidural Injection - scheduled for 01/23 - please arrive 1030am for an 11am injection withDr. Monteiro []Medial Branch Blocks with Radiofrequency Ablation (RFA) - as a reminder, this process involves 2 test injection (medical branch block) appointments prior to the RFA []Sacroiliac Joint Injection Can I eat and/or drink prior to my procedure? You are not required to fast for this procedure. As a reminder, you will need to hold the following medications: Hold Aspirin 6 days prior to injection Multi-vitamins and all other supplements, not prescribed by someone your care team - hold for 7 days prior to your injection Scheduling: Our scheduling team will work on prior authorization from your insurance provider and will call youfor scheduling. If you have questions about scheduling your injection, please call the scheduling team at . Please call the office [phone] and ask to speak with a nurse if any of the following occurs within 14 days prior to your injection/procedure: [x]You have begun taking steroids or antibiotics [x]You have had any changes in your health status or medications [x]You have started taking a blood thinner documented in this encounter Progress Notes * Kayli Rader APRN - 01/03/2023 10:00 AM EDT [place] Medical Decision Making: Danielle Mills is a pleasant 62 y.o. female seen today for a chief complaint of left lower extremity radicular pain likely associated with a left L4-5 disc protrusion likely affecting her left L5 traversing nerve I would recommend at this point, moving forward with a left L4-5 epidural steroid injection to see if this can mitigate her pain. We briefly discussed the role of surgical intervention, but she is hopeful to avoid surgery. As a result of our discussion today, I will place an order for the MARINE and will follow-up with her after this is completed for a further discussion of options. Diagnosis: ICD-10-CM 1. Left lumbar radiculopathy M54.16 SURGICAL CASE REQUEST: INJECTION, EPIDURAL, LUMBAR OR SACRAL (CAUDAL), WITH IMAGING GUIDANCE (WRVU 1.8), Lumbar or Sacral Epidural Steroid Inj Sacral (Caudal) (35412) Plan Left L4-5 MARINE Follow-up with me after the above is completed HPI: Danielle Mills is a 62 y.o. female last seen by me on 12/09/2022 for evaluation of a chief complaint of left leg radicular pain following an L5-S1 pattern. She was also noted to have some weakness to the left foot. I subsequently recommended moving forward with an MRI and she is following up with me today to discuss the results. Currently, the patient continues to endorse left lower extremity radicular pain in an L5-S1 distribution. She continues to have a slight sense of weakness to the left foot. She is here today to discuss the results of her MRI. ROS A five point review of systems was completed today and, of note, pertinent positive and negatives are indicated in the HPI. reports that she has been smoking cigarettes. She has a 22.50 pack-year smoking history. She has never used smokeless tobacco. Conservative Treatment: Physical Therapy: None recently but she has extensive experience with Higinio Mcdaniel PT in the [facility] area who predominantly performs manual physical therapy practices Home Exercise Program: She is performing some Latha based exercises since her last visit with minimal improvement Medications: NSAIDS: Celecoxib Helpful? Yes Acetaminophen: Yes Helpful? No Other Medications: Toradol injection x2 at the emergency room Helpful? Yes Injections: None recently Physical Examination: Wt Readings from Last 1 Encounters: 12/09/22 99.3 kg (219 lb) BMI Readings from Last 1 Encounters: 12/09/22 36.44 kg/m?? Pain 6-12/19 General: Pleasant, cooperative, Mood and affect are appropriate Posture: Upright Gait: Antalgic favoring the left lower extremity Palpation: Deferred Skin: Intact with no stigmata of underlying disease. ROM: Deferred Sensation: Grossly intact throughout all dermatomes with the exception of altered sensation to the left lower extremity in an S1 distribution Neuro: Strength: LOWER RIGHT LEFT Hip Flex 5/5 5/5 Knee ext 5/5 5/5 Ank DF 5/5 5/5 EHL 5/5 5/5 Plantar Flex 5/5 5/5 Ank Eversion 5/5 4-/5 Reflexes: Knees 2/4 2/4 Ankles 1/4 0/4 Provocative Maneuvers: SLR: Positive left Imaging and Test Review: On the day of this encounter, I independently reviewed an MRI of the lumbar spine dated 12/25/2022 demonstrating a left sided disc protrusion at L4-5 contributing to left lateral recess stenosis likely affecting the traversing L5 and exiting L4 nerve. CC: JUAN PABLO Waterman Referring Provider: Kaylee Rader APRN 01/03/2023 [facility] documented in this encounter Plan of Treatment Not on file documented as of this encounter Visit Diagnoses Diagnosis Left lumbar radiculopathy Thoracic or lumbosacral neuritis or radiculitis, unspecified documented in this encounter Care Teams Hand Plate Stacker Relationship Specialty Start Date End Date Kaylee Jaquez PA [address] [place] [address] PCP - General Family Medicine 01/18/22 documented as of this encounter
--- OUTSIDE RECORDS SUMMARY | 2023-11-25 15:32 | XMS_ITS | Encounter Summary ---
Author Organization [facility] Address [facility] [place] [address] Care Team Providers Care Strainer Tender Name Role Phone Kaylee Jaquez Primary Care Provider [phone] Reason for Visit * Reason Onset Date Comments Medication Refill 12/16/2022 Encounter Details Date Type Department Care Team (Late st Contact Info) Description 12/16/2022 Refill Gastroenterology at [facility] [place] [address] Nimesh Alicia MD [facility] [place] [address] Social History Tobacco Use Types Packs/Day Years [...] encounter Miscellaneous Notes * Telephone Encounter - Kilo Durham RN - 12/16/2022 7:12 AM EDT Waiting for response from pt via myDH to confirm dosing; once daily or twice daily. Pt responds and confirms that she is taking once daily Dexilant. documented in this encounter Plan of Treatment Not on file documented as of this encounter Visit Diagnoses Not on filedocumented in this encounter Care Teams Strainer Tender Relationship Specialty Start Date End Date Kaylee Jaquez PA [address] [place] [address] PCP - General Family Medicine 01/18/22 documented as of this encounter
--- OUTSIDE RECORDS SUMMARY | 2023-11-25 15:32 | XMS_ITS | Encounter Summary ---
Author Organization [facility] [place] [address] Care Team Providers Care Proposal Manager Writer Name Role Phone Kaylee Jaquez Primary Care Provider Reason for Visit * Reason Onset Date Comments Medication Refill 09/04/2022 Encounter Details Date Type Department Care Team (Late st Contact Info) Description 09/04/2022 Refill Gastroenterology at [facility] [place] [address] Nimesh Alicia MD [facility] [place] [address] Gastroparesis Social History Tobacco Use Types Packs/Day [...] Gastroparesis documented in this encounter Care Teams Proposal Manager Writer Relationship Specialty Start Date End Date Kaylee Jaquez PA [address] [place] [address] PCP - General Family Medicine 01/18/22 documented as of this encounter
--- OUTSIDE RECORDS SUMMARY | 2023-11-25 15:32 | XMS_ITS | Encounter Summary ---
Author Organization [facility] [place] [address] Care Team Providers Care Brass Wind Instrument Maker Name Role Phone Kaylee Jaquez Primary Care Provider [phone] Reason for Visit * Reason Onset Date Comments Medication Refill 06/17/2022 Encounter Details Date Type Department Care Team (Late st Contact Info) Description 06/17/2022 Refill Gastroenterology at [facility] [place] [address] Nimesh Alicia MD [facility] [place] [address] Social History Tobacco Use Types Packs/Day Years [...] on filedocumented in this encounter Care Teams Brass Wind Instrument Maker Relationship Specialty Start Date End Date Kaylee Jaquez PA [address] [place] [facility] [place] [address] PCP - General Family Medicine 01/18/22 documented as of this encounter
--- OUTSIDE RECORDS SUMMARY | 2023-11-25 15:32 | XMS_ITS | Encounter Summary ---
Author Organization [facility] [place] [address] Care Team Providers Care Bit Tripoler Name Role Phone Kaylee Jaquez Primary Care Provider [phone] Reason for Visit * Reason Onset Date Comments Medication Refill 07/23/2022 Encounter Details Date Type Department Care Team (Late st Contact Info) Description 07/23/2022 Refill [place] [address] Marta Rivera MD [facility] [place] [address] Social History Tobacco Use Types Packs/Day Years [...] on filedocumented in this encounter Care Teams Bit Tripoler Relationship Specialty Start Date End Date Kaylee Jaquez PA [address] [place] [address] PCP - General Family Medicine 01/18/22 documented as of this encounter
--- OUTSIDE RECORDS SUMMARY | 2023-11-25 15:32 | XMS_ITS | Encounter Summary ---
Author Organization [facility] [place] [address] Care Team Providers Care Cardiopulmonary Technician Name Role Phone Kaylee Jaquez Primary Care Provider Reason for Referral * Consultation (Routine) - Closed Specialty Diagnoses / Procedures Referred By Contac t Referred To Contact [facility] Diagnoses Other specified dorsopathies, site unspecified Kaylee Jaquez PA [address] [place] [address] Maxime Cadena MD [facility] [place] [address] Referral ID Status Reason Start Date Expiration Date V isits Requested Visits Authorized [id number] Closed Consult, Test & Treat PCP Updated and/or Approved 11/22/2022 11/22/2023 1 1 Encounter Details Date Type Department Care Team (Latest Contact Info) Description 11/22/2022 Transcribe Orders eDH Incoming Referrals [phone] Kaylee Jaquez PA [address] [place], [place] [id number] Other specified dorsopathies, site unspecified Social History Tobacco Use Types Packs/Day Years [...] Diagnoses Orde r Schedule Referral to Pain Management Outpatient Referral Routine Other specified dorsopathies, site unspecified Ordered: 11/22/2022 documented as of this encounter Visit Diagnoses Diagnosis Other specified dorsopathies, site unspecified documented in this encounter Care Teams Cardiopulmonary Technician Relationship Specialty Start Date End Date Kaylee Jaquez PA [address] [place] [address] PCP - General Family Medicine 01/18/22 documented as of this encounter
--- OUTSIDE RECORDS SUMMARY | 2023-11-25 15:32 | XMS_ITS | Encounter Summary ---
Author Organization [facility] [place] [address] Care Team Providers Care Machine Featheredger And Reducer Name Role Phone Kaylee Jaquez Primary Care Provider [phone] Reason for Visit * Reason Onset Date Comments Medication Refill 06/16/2022 Encounter Details Date Type Department Care Team (Late st Contact Info) Description 06/16/2022 Refill Gastroenterology at [facility] [place] [address] Nimesh Alicia MD [facility] [place] [address] Social History Tobacco Use Types Packs/Day Years [...] on filedocumented in this encounter Care Teams Machine Featheredger And Reducer Relationship Specialty Start Date End Date Kaylee Jaquez PA [address] [place] [address] PCP - General Family Medicine 01/18/22 documented as of this encounter
--- OUTSIDE RECORDS SUMMARY | 2023-11-25 15:32 | XMS_ITS | Encounter Summary ---
[place] [address] Care Team Providers Care Program Mgr Name Role Phone Kaylee Jaquez Primary Care Provider Encounter Details Date Type Department Care Team (Late st Contact Info) Description 01/22/2023 Telephone [place] [phone] Charlee Porter RN Social History Tobacco Use [...] on filedocumented in this encounter Care Teams Program Mgr Relationship Specialty Start Date End Date Kaylee Jaquez PA [address] [place] [address] PCP - General Family Medicine 01/18/22 documented as of this encounter
--- OUTSIDE RECORDS SUMMARY | 2023-11-25 15:32 | XMS_ITS | Encounter Summary ---
[place] [address] Care Team Providers Care Fabric Lay Out Worker Name Role Phone Kaylee Jaquez Primary Care Provider [phone] Encounter Details Date Type Department Care Team (Latest Contact Info) Description 07/24/2022 Travel Social History Tobacco Use Types Packs/Day [...] on filedocumented in this encounter Care Teams Fabric Lay Out Worker Relationship Specialty Start Date End Date Kaylee Jaquez PA [address] [place] [address] PCP - General Family Medicine 01/18/22 documented as of this encounter
--- OUTSIDE RECORDS SUMMARY | 2023-11-25 15:32 | XMS_ITS | Encounter Summary ---
Author Organization [facility] Address [facility] [place] [address] Care Team Providers Care Process Coach Name Role Phone Kaylee Jaquez Primary Care Provider [phone] Reason for Visit * Reason Onset Date Comments Medication Refill 09/10/2022 Encounter Details Date Type Department Care Team (Late st Contact Info) Description 09/10/2022 Refill Cardiology at [address] [address] Lc Garcia MD [facility] [place] [address] Medication Refill Social History Tobacco Use Types [...] unspecified documented in this encounter Care Teams Process Coach Relationship Specialty Start Date End Date Kaylee Jaquez PA [address] [place] [address] PCP - General Family Medicine 01/18/22 documented as of this encounter
--- OUTSIDE RECORDS SUMMARY | 2023-11-25 15:32 | XMS_ITS | Encounter Summary ---
Author Organization [facility] [place] [address] Care Team Providers Care Tufter Operator Name Role Phone Kaylee Jaquez Primary Care Provider [phone] Encounter Details Date Type Department Care Team (Late st Contact Info) Description 01/31/2022 Notes Only Pain and Sp[facility] Center at [facility] [place] [address] Lisa Hernandez Social History Tobacco Use Types Packs/Day [...] as of this encounter Progress Notes * Lisa Hernandez - 01/31/2022 7:26 AM EDT Patient was scheduled for [facility] however, canceled via [facility] stating - After looking upthe program, it's all pretty much what I've done in the past. I've been dealing with lower back issues for years. I honestly don't think I will get anything out of it that I don't already know or have tried. - Patient's referral has been closed, referring provider will be notified. documented in this encounter Plan of Treatment Not on file documented as of this encounter Visit Diagnoses Not on filedocumented in this encounter Care Teams Tufter Operator Relationship Specialty Start Date End Date Kaylee Jaquez PA [address] [place] [address] PCP - General Family Medicine 01/18/22 documented as of this encounter
--- OUTSIDE RECORDS SUMMARY | 2023-11-25 15:32 | XMS_ITS | Encounter Summary ---
[place] [address] Care Team Providers Care Power Checker Name Role Phone Kaylee Jaquez Primary Care Provider [phone] Encounter Details Date Type Department Care Team (Latest Contact Info) Description 07/29/2022 Travel Social History Tobacco Use Types Packs/Day [...] on filedocumented in this encounter Care Teams Power Checker Relationship Specialty Start Date End Date Kaylee Jaquez PA [address] [place] [address] PCP - General Family Medicine 01/18/22 documented as of this encounter
--- OUTSIDE RECORDS SUMMARY | 2023-11-25 15:32 | XMS_ITS | Encounter Summary ---
Author Organization [facility] [place] [address] Care Team Providers Care Jewel Bearing Driller Name Role Phone Steven Jeffries MD Primary Care Provider [phone] Encounter Details Date Type Department Care Team (Late st Contact Info) Description 01/02/2022 Ancillary Procedure [place] [phone] Sirisha Tolliver APRN [facility] [place] [address] Social History Tobacco Use Types Packs/Day Years [...] FILM LIBRARY STORAGE ONLY MR SPINE Routine 01/02/2022 12:00 AM EDT documented in this encounter Results * Film Library- Storage Only MR Spine (01/02/2022 12:00 AM EDT) Narrative [facility] - 01/22/2022 8:06 PM EDT This exam is auto-finalizing. It's purpose is for storage only. Sirisha Tolliver APRN IMG FILM LIBRARY OR DERABLES DH [place], [place] documented in this encounter Visit Diagnoses Not on filedocumented in this encounter Care Teams Jewel Bearing Driller Relationship Specialty Start Date End Date Steven Jeffries MD [address] [place] [address] PCP - General General Internal Medicine 02/12/2101/17 documented as of this encounter
--- OUTSIDE RECORDS SUMMARY | 2023-11-25 15:32 | XMS_ITS | Encounter Summary ---
[place] [address] Care Team Providers Care Fishing Boat Captain Name Role Phone Kaylee Jaquez Primary Care Provider Encounter Details Date Type Department Care Team (Latest Contact Info) Description 01/03/2023 Travel Social History Tobacco Use Types Packs/Day [...] on filedocumented in this encounter Care Teams Fishing Boat Captain Relationship Specialty Start Date End Date Kaylee Jaquez PA [address] [place] [address] PCP - General Family Medicine 01/18/22 documented as of this encounter
--- OUTSIDE RECORDS SUMMARY | 2023-11-25 15:32 | XMS_ITS | Encounter Summary ---
Author Organization [facility] Address [facility] [place] [address] Care Team Providers Care Security Patrol Driver Name Role Phone Kaylee Jaquez Primary Care Provider [phone] Reason for Visit * Reason Onset Date Comments Medication Refill 11/22/2022 Encounter Details Date Type Department Care Team (Late st Contact Info) Description 11/22/2022 Refill Cardiology at [address] [address] Lc Garcia MD [facility] [place] [address] Medication Refill Social History Tobacco Use Types [...] type documented in this encounter Care Teams Security Patrol Driver Relationship Specialty Start Date End Date Kaylee Jaquez PA [address] [place] [facility] [place] [address] PCP - General Family Medicine 01/18/22 documented as of this encounter
--- OUTSIDE RECORDS SUMMARY | 2023-11-25 15:32 | XMS_ITS | Encounter Summary ---
[place] [address] Care Team Providers Care Manufacturing Engineering Director Name Role Phone Steven Jeffries MD Primary Care Provider [phone] Encounter Details Date Type Department Care Team (Late st Contact Info) Description 11/23/2021 Ancillary Procedure [place] [address] Steven Jeffries MD [address] [place] [address] Social History Tobacco Use Types Packs/Day Years [...] FILM LIBRARY STORAGE ONLY MR SPINE Routine 11/23/2021 12:00 AM EDT documented in this encounter Results * Film Library- Storage Only MR Spine (11/23/2021 12:00 AM EDT) Narrative [facility] - 01/16/2022 3:10 PM EDT This exam is auto-finalizing. It's purpose is for storage only. Steven Jeffries MD [facility] FILM LIBRARY ORD ERABLES Performing Organization Address City/State/[facility] Co de Phone Number [place], [place] documented in this encounter Visit Diagnoses Not on filedocumented in this encounter Care Teams Manufacturing Engineering Director Relationship Specialty Start Date End Date Steven Jeffries MD [address] [place] [address] PCP - General General Internal Medicine 02/12/2101/17 documented as of this encounter
--- OUTSIDE RECORDS SUMMARY | 2023-11-25 15:32 | XMS_ITS | Encounter Summary ---
[place] [address] Care Team Providers Care Technical Aide Name Role Phone Kaylee Jaquez Primary Care Provider [phone] Reason for Visit * Reason Comments Right Knee Pain S/P TKA dos September 2009 Encounter Details Date Type Department Care Team ([facility] st Contact Info) Description 03/04/2022 2:30 PM EDT Office Visit Orthopaedics at [address] [address] Elvin Whiting MD [address] [place] [id number] Primary osteoarthritis of right knee; Presence of right artificial knee joint Social History Tobacco Use Types Packs/Day Years [...] Progress Notes * Elvin Whiting MD - 03/04/2022 2:30 PM EDT SUBJECTIVE: Danielle is a 61 y.o. female, sent to me in consultation by JUAN PABLO Waterman for a yearly check of the right knee, s/p total knee arthroplasty on September 2009. Patient reports if she is on it to much walking and her normal activity. She has swelling and pain below the patella aspect of the knee. This started a couple weeks ago. She has tried Advil and tylenol to treat which they do seem to help. Blood thinners: Aspirin 81 mg History of Heart attack 2 years ago. Diabetic: yes, last A1C 6.7 taken on Jan 2022 Past Medical History: Diagnosis Date ??? Arthritis ??? Depression ??? DM hyperosmolarity type II ??? GERD (gastroesophageal reflux disease) ??? Hepatitis ??? Hiatal hernia ??? Hyperlipidemia ??? IBS (irritable bowel syndrome) ??? PTSD (post-traumatic stress disorder) ??? Tobacco use ??? semaglutide (Ozempic) 1 mg/dose (4 mg/3 mL) Pen Injector ??? liothyronine (Cytomel) 5 mcg Tablet ??? ibuprofen (Advil) 200 mg Tablet ??? dexlansoprazole (DEXILANT) 30 mg Cap, Delayed Rel., Multiphasic ??? isosorbide dinitrate (Isordil) 30 mg Tablet ??? Repatha Pushtronex 420 mg/3.5 mL wearable injector ??? senna (Senokot) 8.6 mg Tablet ??? nitroGLYcerin (Nitrostat) 0.4 mg Tablet, Sublingual ??? aspirin 81 mg Tablet, Chewable ??? losartan (Cozaar) 25 mg Tablet ??? metoprolol succinate XL (Toprol-XL) 50 mg Tablet Sustained Release 24 hr ??? cyclobenzaprine (Flexeril) 10 mg Tablet ??? acetaminophen (TYLENOL) 500 mg Tablet ??? amoxicillin (AMOXIL) 500 mg Tablet ??? clonazePAM (KLONOPIN) 0.5 mg Tablet ??? BD ULTRA-FINE ORIG PEN NEEDLE 29 gauge x 1/2 Needle Allergies Allergen Reactions ??? Atorvastatin Other (See Comments) ??? Codeine Other (See Comments) ??? Hydrocodone-Acetaminophen Itching ??? Indomethacin Itching ??? Oxycodone-Acetaminophen Itching ??? Prednisone ??? Rosuvastatin Other (See Comments) Family history is noncontributory. Social history: No drug or alcohol problems reported. Nonsmoker. All other systems reviewed and were negative. Past medical history, medications and allergies were reviewed and updated where appropriate. OBJECTIVE: On exam, a well-developed, well-nourished 61 y.o. female awake, alert, oriented x3. Pain and tenderness within the right knee just inferior to the patella No effusion good range of motion Stable ligaments Minimal limp on ambulation No erythema ecchymosis lymphadenopathy IMAGING: X-Ray taken today at [facility], were reviewed with the patient and shows: of the right knee, a well applied total knee replacement. ASSESSMENT: Right knee osteoarthritis, TKA PLAN: Appears as though she may have a low-grade degree of tendinitis. I do not feel there is anything specifically she should do for this area other than the use of Voltaren gel 3 times a day We can consider prednisone treatment if necessary. She has lost quite a bit of weight I suggest she continue with weight loss We will follow-up with her in 2 years for reevaluation of her knee PATIENT DISCUSSION: The above information was discussed in detail with the patient. We discussed and reviewed the diagnosis and the anatomy pertinent to the diagnosis. We reviewed treatment options both operative and nonoperative and the plan for treatment. Discussedreasons to contact the office. The patient expressed understanding of the discussion and diagnosis and agreed with the proposed treatment plan. Questions were elicited and answered. They appeared to be pleased upon departure from the office today. Suggested antibiotic prophylaxis dental and procedural regiments were reviewed. Exercises were reviewed to maintain joint strength and health were also discussed. Cc: JUAN PABLO Waterman documented in this encounter Plan of Treatment Not on file documented as of this encounter Visit Diagnoses Diagnosis Primary osteoarthritis of right knee Primary localized osteoarthrosis, lower leg Presence of right artificial knee joint Knee joint replacement by other means documented in this encounter Care Teams Technical Aide Relationship Specialty Start Date End Date Kaylee Jaquez PA [address] [place] [id number] PCP - General Family Medicine 01/18/22 documented as of this encounter
--- OUTSIDE RECORDS SUMMARY | 2023-11-25 15:32 | XMS_ITS | Encounter Summary ---
[place] [address] Care Team Providers Care Talent Acquisition Associate Name Role Phone Kaylee Jaquez Primary Care Provider Encounter Details Date Type Department Care Team (Latest Contact Info) Description 12/02/2022 Travel Social History Tobacco Use Types Packs/Day [...] on filedocumented in this encounter Care Teams Talent Acquisition Associate Relationship Specialty Start Date End Date Kaylee Jaquez PA [address] [place] [address] PCP - General Family Medicine 01/18/22 documented as of this encounter
--- OUTSIDE RECORDS SUMMARY | 2023-11-25 15:32 | XMS_ITS | Encounter Summary ---
Author Organization [facility] [place] [address] Care Team Providers Care Honeycomb Decapper Name Role Phone Kaylee Jaquez Primary Care Provider [phone] Reason for Visit * Reason Onset Date Comments Medication Refill 07/29/2022 Encounter Details Date Type Department Care Team (Late st Contact Info) Description 07/29/2022 Ref[place] [address] Marta Rivera MD [facility] [place] [address] Social History Tobacco Use Types Packs/Day Years [...] on filedocumented in this encounter Care Teams Honeycomb Decapper Relationship Specialty Start Date End Date Kaylee Jaquez PA [address] [place] [address] PCP - General Family Medicine 01/18/22 documented as of this encounter
--- OUTSIDE RECORDS SUMMARY | 2023-11-25 15:32 | XMS_ITS | Encounter Summary ---
Author Organization [facility] [place] [address] Care Team Providers Care Diesel Trailer Mechanic Name Role Phone Steven Jeffries MD Primary Care Provider [phone] Reason for Visit * Reason Onset Date Comments Medication Refill 01/02/2022 Encounter Details Date Type Department Care Team (Late st Contact Info) Description 01/02/2022 Refill Gastroenterology at [facility] [place] [address] Nimesh Alicia MD [facility] [address] Social History Tobacco Use Types Packs/Day Years [...] on filedocumented in this encounter Care Teams Diesel Trailer Mechanic Relationship Specialty Start Date End Date Steven Jeffries MD [address] [place] [address] PCP - General General Internal Medicine 02/12/2101/17 documented as of this encounter
--- OUTSIDE RECORDS SUMMARY | 2023-11-25 15:32 | XMS_ITS | Encounter Summary ---
[place] [address] Care Team Providers Care Appraisal Technician Name Role Phone Kaylee Jaquez Primary Care Provider [phone] Reason for Visit * Reason Onset Date Comments Prior Authorization 09/05/2022 [employer] Encounter Details Date Type Department Care Team (Late st Contact Info) Description 09/05/2022 Telephone [place] [id number] Paulette Guevara CMA Prior Authorization ([employer]) Social History Tobacco Use Types Packs/Day Years [...] encounter Miscellaneous Notes * Telephone Encounter - Maia Gutiérrez CMA - 09/06/2022 3:16 PM EDTSummary: Approved Submitted Date: Submitted Date: 09/05/2022 Next Review Date: Next Review Date: 05/11/2023 JUAN PABLO Outcome: PA Approval Medication Prior Authorization Approval Approved: Mote[employer] 1MG tablets Start Date: 09/06/2022 End Date: 05/11/2023 Case/Reference #: JUAN PABLO Case ID: [id number] [id number] Approval Letter will be scanned into media once received. * Telephone Encounter - Paulette Guevara CMA - 09/06/2022 10:36 AM EDT Images from the original note were not included. Received additional information request form from [employer]. Form printed off, filled out, faxed back to the insurance at [phone], and scanned into the patient chart. * Telephone Encounter - Paulette Guevara CMA - 09/05/2022 2:28 PM EDT PA Submitted Submitted Date: Submitted Date: 09/05/2022 Medication Prior Authorization Patient: Danielle Mills Patient : 1960 Insurance Company: [employer] Sent via: [employer] Leon: [id number] Physician: Nimesh Alicia MD Medication Requested: prucalopride (Motegrity) 1 mg tablet Frequency/Sig: Take 2 tablets by mouth daily Disp: 180 Refills: 3 Currently taking: yes If yes, how lon07/2022 Diagnosis for this medication: Gastroparesis (K31.84) Additional Notes: Information below attached to PA request Office note 07/16/2022 slowed gastric emptying on smart pill last year consistent with a diagnosis of gastroparesis. I reviewed therapeutic options for her, and given that she also has chronic constipation, I think prucalopride would be a good option for her. [facility] Endoscopy Procedure Date: 08/01/2021 9:51 AM ? Patient Name: Danielle Mills ? Date of : 1960 ? Age: 61 ? Order #: [id number] ? Instrument Name: [id number] ? Procedure: ? Colonoscopy Indications: ? Constipation Providers: ? Deidre Christian, ?Carlos Veliz Referring : ?Steven Jeffries MD Medicines: ? Propofol per Anesthesia Complications: ? No immediate complications. Procedure: ? Pre-Anesthesia Assessment: ?- Prior to the procedure, a History ?and Physical was performed, and ?patient medications and allergies ?were reviewed. The patient is ?competent. The risks and benefits of ?the procedure and the sedation ?options and risks were discussed with ?the patient. All questions were ?answered and informed consent was ?obtained. Patient identification and ?proposed procedure were verified by ?the physician in the pre-procedure ?area. Mental Status Examination: ?alert and oriented. Airway ?Examination: normal oropharyngeal ?airway and neck mobility. Respiratory ?Examination: clear to auscultation. ?CV Examination: normal. Prophylactic ?Antibiotics: The patient does not ?require prophylactic antibiotics. ?Prior Anticoagulants: The patient has ?taken no previous anticoagulant or ?antiplatelet agents. ASA Grade ?Assessment: II - A patient with mild ?systemic disease. After reviewing the ?risks and benefits, the patient was ?deemed in satisfactory condition to ?undergo the procedure. The anesthesia ?plan was to use monitored anesthesia ?care (MAC). Immediately prior to ?administration of medications, the ?patient was re-assessed for adequacy ?to receive sedatives. The heart rate, ?respiratory rate, oxygen saturations, ? blood pressure, adequacy of pulmonary ?ventilation, and response to care ?were monitored throughout the ?procedure. The physical status of the ?patient was re-assessed after the ?procedure. ?The procedure, indications, benefits, ?risks and alternatives were explained ?to the patient. Specifically ?discussed were potential ?complications including, but not ?limited to, bleeding, perforation, ?infection, missing a cancer, and ?adverse medication reactions. The ?patient was placed in the left ?lateral decubitus position, and a ?digital rectal exam was performed. ?The Colonoscope was inserted in the ?anus and under direct visualization, ?advanced to the terminal ileum. ?Careful inspection was made as the ?colonoscope was withdrawn. The ?patient tolerated the procedure well. ?The quality of the bowel preparation ?was adequate. ? Findings: ?The terminal ileum appeared normal. ?Two flat polyps were found in the recto-sigmoid ?colon. The polyps were 1 to 2 mm in size. These ?polyps were removed with a cold snare. Resection and ?retrieval were complete. ?The retroflexed view of the distal rectum and anal ?verge was normal and showed no anal or rectal ?abnormalities. ? Moderate Sedation: ?Not applicable - See Anesthesia documentation Impression: ?- The examined portion of the ileum ?was normal. ?- Two 1 to 2 mm polyps at the ?recto-sigmoid colon, removed with a ?cold snare. Resected and retrieved. ?- The distal rectum and anal verge ?are normal on retroflexion view. Recommendation: ?- Discharge patient to home. ?- Resume previous diet. ?- Await pathology results. ?- Repeat colonoscopy for surveillance ?based on pathology results. ?- SmartPill and Anorectal manometry ?- Continue bowel regimen ? Procedure Code(s): ?? --- Professional --- ?35610, Colonoscopy, flexible; with ?removal of tumor(s), polyp(s), or ?other lesion(s) by snare technique Diagnosis Code(s): ?? --- Professional --- ?K59.00, Constipation, unspecified ?K63.5, Polyp of colon ?--- Technical --- ?K59.00, Constipation, unspecified ?K63.5, Polyp of colon CPT copyright 2019 [employer]. All rights reserved. The codes documented in this report are preliminary and upon certified coder review may be revised to meet current compliance requirements. Attending Participation: ?I personally performed the entire procedure. ? Nimesh Alicia, 08/01/2021 11:11:02 AM Number of Addenda: 0 [facility] End[facility] Procedure Date: 11/19/2018 12:41 PM ? Patient Name: Danielle Mills ? Date of : 1960 ? Age: 58 ? Order #: [id number] ? Instrument Name: [id number] LOANER ? Procedure: ? Upper GI endoscopy Indications: ? Follow-up of Johnson's esophagus Providers: ? iNmesh Alicia MD, Yaneli ?Risa Moses MD: ?Steven Jeffries MD Medicines: ? Propofol per Anesthesia Complications: ? No immediate complications. Procedure: ? Pre-Anesthesia Assessment: ?- Prior to the procedure, a History ?and Physical was performed, and ?patient medications and allergies ?were reviewed. The risks and benefits ?of the procedure and the sedation ?options and risks were discussed with ?the patient. All questions were ?answered and informed consent was ?obtained. Patient identification and ?proposed procedure were verified by ?the physician in the pre-procedure ?area. Mental Status Examination: ?alert and oriented. Airway ?Examination: normal oropharyngeal ?airway and neck mobility. Respiratory ?Examination: clear to auscultation. ?CV Examination: normal. Prophylactic ?Antibiotics: The patient does not ?require prophylactic antibiotics. ?Prior Anticoagulants: The patient has ?taken no previous anticoagulant or ?antiplatelet agents. ASA Grade ?Assessment: II - A patient with mild ?systemic disease. After reviewing the ?risks and benefits, the patient was ?deemed in satisfactory condition to ?undergo the procedure. The anesthesia ?plan was to use monitored anesthesia ?care (MAC). Immediately prior to ?administration of medications, the ?patient was re-assessed for adequacy ?to receive sedatives. The heart rate, ?respiratory rate, oxygen saturations, ? blood pressure, adequacy of pulmonary ?ventilation, and response to care ?were monitored throughout the ?procedure. The physical status of the ?patient was re-assessed after the ?procedure. ?The procedure, indications, benefits, ?risks and alternatives were explained ?to the patient. Specifically ?discussed were potential ?complications including, but not ?limited to, bleeding, perforation, ?infection, missing a cancer, and ?adverse medication reactions. The was ?introduced through the mouth, and ?advanced to the second part of ?duodenum. The patient tolerated the ?procedure well. The patient tolerated ? the procedure well. ? Findings: ?The esophagus and gastroesophageal junction were ?examined with white light and narrow band imaging ?(NBI) from a forward view and retroflexed position. ?There were esophageal mucosal changes suspicious for ?short-segment Johnson's esophagus. These changes ?involved the mucosa at the upper extent of the ?gastric folds (40 cm from the incisors) extending to ?the Z-line (39 cm from the incisors). One tongue of ?salmon-colored mucosa was present from 39 to 40 cm. ?The maximum longitudinal extent of these esophageal ?mucosal changes was 1 cm in length. Mucosa was ?biopsied with a cold forceps for histology. One ?specimen bottle was sent to pathology. ?The entire examined stomach was normal. ?Biopsies were taken with a cold forceps in the ?gastric body and in the gastric antrum for histology. ?A single 4 mm sessile polyp was found in the first ?portion of the duodenum. Biopsies were taken with a ?cold forceps for histology. ? Moderate Sedation: ?Not applicable - See Anesthesia documentation Impression: ?- Esophageal mucosal changes ?suspicious for short-segment ?Johnson's esophagus. Biopsied. ?- Normal stomach. ?- A single duodenal polyp. Biopsied. ?- Non targeted biopsies were taken ?with a cold forceps for histology in ?the gastric body and in the gastric ?antrum to follow up metaplasia. Recommendation: ?- Discharge patient to home. ?- Resume regular diet. ?- Await pathology results. ?- Repeat upper endoscopy in 3 years ?for surveillance pending pathology. ? Attending Participation: ?I personally performed the entire procedure. ? Nimesh Alicia MD 11/19/2018 1:22:38 PM Number of Addenda: 0 Note Initiated On: 11/19/2018 12:41 PM documented in this encounter Plan of Treatment Not on file documented as of this encounter Visit Diagnoses Not on filedocumented in this encounter Care Teams Appraisal Technician Relationship Specialty Start Date End Date Kaylee Jaquez PA [address] [place] [address] PCP - General Family Medicine 01/18/22 documented as of this encounter
--- OUTSIDE RECORDS SUMMARY | 2023-11-25 15:32 | XMS_ITS | Encounter Summary ---
[place] [address] Care Team Providers Care Line Installation Supervisor Name Role Phone Kaylee Jaquez Primary Care Provider Encounter Details Date Type Department Care Team (Latest Contact Info) Description 08/02/2022 Travel Social History Tobacco Use Types Packs/Day [...] on filedocumented in this encounter Care Teams Line Installation Supervisor Relationship Specialty Start Date End Date Kaylee Jaquez PA [address] [facility] [address] PCP - General Family Medicine 01/18/22 documented as of this encounter
--- OUTSIDE RECORDS SUMMARY | 2023-11-25 15:32 | XMS_ITS | Encounter Summary ---
Author Organization [facility] [place] [address] Care Team Providers Care Color Paste Mixer Name Role Phone Kaylee Jaquez Primary Care Provider [phone] Encounter Details Date Type Department Care Team (Late st Contact Info) Description 07/29/2022 10:00 AM EDT Office [place] [phone] Marta Cabral MD [facility] [address] END[place] [address] Type 2 diabetes, controlled, with neuropathy; Delano's [...] Sign Reading Time Taken Comments Blood Pressure 118/74 07/29/2022 10:03 AM EDT Pulse 84 07/29/2022 10:03 AM EDT Temperature 36 ??C (96.8 ??F) 07/29/2022 10:03 AM EDT Respiratory Rate - - Oxygen Saturation 98% 07/29/2022 10:03 AM EDT Inhaled Oxygen Concentration - - Weight 97.5 kg (215 lb) 07/29/2022 10:03 AM EDT Height 165.1 cm (5' 5) 07/29/2022 10:03 AM EDT Body Mass Index 35.78 07/29/2022 10:03 AM EDT documented in this encounter Patient Instructions * Patient Instructions* Marta Cabral MD - 07/29/2022 10:00 AM EDT PLAN: 1. 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 4. RTC: 12 mo for thyroid US and DM and make sure that she continue lose wt further (goal wt is 185lbs) Marta Cabral MD, PhD, FACE, FACP documented in this encounter Progress Notes * Marta Cabral MD - 07/29/2022 10:00 AM EDT Images from the original note were not included. Endocrinology Follow-up Note Date of Visit: 07/29/2022 Patient: Name: Danielle Mills : 1960 PCP: JUAN PABLO Waterman Danielle Mills was seen in the Endocrine clinic in person for: Autoimmune Delano's thyroiditiswith thyroid nodule with stable or smaller nodule size at 1.0 cm after 1.5 yrs on US 05/30/21. She also has type 2 diabetes and weight issues with good wt loss ~70 lbs after using victoza -> ozempic pen, already stopped insulin when she started victoza with A1c down from 8.2 to 6.1% which is excellent. HISTORY OF PRESENT ILLNESS: Patient is a very pleasant 62 y.o. female who initially presented to us [...] lbs as she cut back on carb intake. Target is to keep fasting BG 80-140 range without low to avoid wt gain. She could not tolerate metformin, byetta or Jardiance with yeast infection. Her last A1c was better down from 8.2 to 7.1% and then 6.1-6.8% at target. She was diagnosed with [...] and occasional difficulty swallowing. Thyroid US at [facility] on 10/22/19 showed a Rt thyroid nodule [...] stable on last US in May 2021. Recent labs: 06/03/19 10/13/19 A1c 8.2%H 6.1% TSH 2.25 1.75 FT4 0.96 0.96 still borderline low FT3 3.3 4.4 (nl 2.8-5.3) TPO Ab 182H 324H Tg AB 63H 61H Fatigue - Yes, a bit better Weight gain - better & lost 36+23 lbs from 274 to 210-214 lbs on GLP1 (oempic 2 mg weekly higher dose) which is excellent Intolerance to cold - [...] HISTORY Patient Active Problem List Diagnosis Code ??? Type 2 diabetes mellitus E11.9 ??? HLD (hyperlipidemia) E78.5 ??? Gastroesophageal reflux disease with hiatal hernia K21.9, K44.9 ??? 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 Carpal tunnel syndrome G56.00 ??? Cystocele [id number] ??? Depression, anxiety, insomnia, PTSD F32.A ??? [...] I21.4 ??? Constipation K59.00 ??? Hepatitis K75.9 Allergy Allergies Allergen Reactions ??? Atorvastatin Other (See Comments) ??? Codeine Other (See Comments) ??? Hydrocodone-Acetaminophen Itching ??? Indomethacin Itching ??? Oxycodone-Acetaminophen Itching ??? Prednisone ??? Rosuvastatin Other (See Comments) Current Medication Current Outpatient Medications on File Prior to Visit Medication Sig Dispense Refill ??? prucalopride (Motegrity) 1 mg Tablet Take 1 tablet by mouth daily for 30 days. 30 tablet 3 ??? dexlansoprazole (DEXILANT) 30 mg Cap, Delayed Rel., Multiphasic Take 1 capsule by mouth daily. 30 capsule 5 ??? dexlansoprazole (DEXILANT) 30 mg Cap, Delayed Rel., Multiphasic Take 1 capsule by mouth daily. 30 capsule 5 ??? [DISCONTINUED] semaglutide (Ozempic) 1 mg/dose (4 mg/3 mL) Pen Injector Inject 1 mg subcutaneously once a week. 9 mL 1 ??? liothyronine (Cytomel) 5 mcg Tablet Take 1 tablet by mouth daily. 90 tablet 1 ??? ibuprofen (Advil) 200 mg Tablet Take 800 mg by mouth as needed for Pain. ??? isosorbide dinitrate (Isordil) 30 mg Tablet Take 30 mg by mouth daily. ??? Repatha Pushtronex 420 mg/3.5 mL wearable injector INJECT 3.5ML EVERY MONTH BY SUBCUTANEOUS ROUTE FOR 90 DAYS ??? aspirin 81 mg Tablet, Chewable Take 81 mg by mouth daily. 90 tablet 0 ??? losartan (Cozaar) 25 mg Tablet Take 0.5 tablets by mouth daily. 45 tablet 0 ??? metoprolol succinate XL (Toprol-XL) 50 mg Tablet Sustained Release 24 hr Take 1 tablet by mouthdaily. 90 tablet 0 ??? acetaminophen (TYLENOL) 500 mg Tablet Take 1,000 mg by mouth as needed for Pain. ??? clonazePAM (KLONOPIN) 0.5 mg Tablet Take 0.5 mg by mouth daily. 2 ??? BD ULTRA-FINE ORIG PEN NEEDLE 29 gauge x 1/2 Needle INJECT INSULIN SUBCUTANEOUSLY DIRECTED.3 ??? Ozempic 2 mg/dose (8 mg/3 mL) Pen Injector Inject 2 mg subcutaneously once a week. ??? senna (Senokot) 8.6 mg Tablet Take 2 tablets by mouth daily. (Patient not taking: Reported on 07/29/2022) 60 tablet 5 ??? nitroGLYcerin (Nitrostat) 0.4 mg Tablet, Sublingual Place 0.4 mg under the tongue every 5 minutes as needed for Chest pain. ??? cyclobenzaprine (Flexeril) 10 mg Tablet TAKE 1 TABLET BY MOUTH AT BEDTIME NEEDED ??? amoxicillin (AMOXIL) 500 mg Tablet Take 4 tablets by mouth 1 hour prior to procedure (Patient not taking: Reported on 07/29/2022) 12 tablet 2 No current facility-administered medications on file prior to visit. Social History Social History Socioeconomic History ??? Marital status: Spouse name: Not on file ??? Number of children: Not on file ??? Years of education: Not on file ??? Highest education level: Not on file Occupational History ??? Not on file Tobacco Use ??? Smoking status: Every Day Packs/day: 0.50 Years: 45.00 Pack years: 22.50 Types: Cigarettes ??? Smokeless tobacco: Never ??? Tobacco comments: Quit but family member and she started smoking again 08/01/21 Vaping Use ??? Vaping Use: Never used Substance and Sexual Activity ??? Alcohol use: Not Currently Comment: ocassional ??? Drug use: Not on file Comment: no [...] Family History +DM2, thyroid PHYSICAL EXAM: BP 118/74 Pulse 84 Temp 36 ??C (96.8 ??F) Ht 165.1 cm (5' 5) Wt 97.5 kg (215 lb) SpO2 98% BMI 35.78 kg/m?? Appearance: Patient is very pleasant white female, obese, clinically euthyroid, not in acute distress Skin - normal in texture and temperature HEENT - PERRLA, EOMI, no lid lag or exophthalmos. No hoarseness of voice or stridor. Neck - supple, no goiter or nodule, no lymphadenopathy. Extremities - no pitting edema Neuro - Non-focal. No proximal muscle weakness. Thyroid US at [facility] Radiology (10/22/19) before taking thyroid Rx showed a Rt thyroid nodule of 1.1 cmand the others were < 1 cm with rec to FU in 6 mo. Office Thyroid Ultrasound: 05/30/21 Indication: Rt thyroid nodule and Delano's thyroiditis - to assess nodule size after 1.5 yrs Comparison:12/06/19 at our clinic 10/22/19 US from outside at [facility]. Procedure: Real-time ultrasonography limited to the thyroid gland and lateral neck area with and without color doppler were obtained using a YABU[employer] Flex Focus 400 US machine and an HFL38/15-6 broadband linear array transducer. All measurements are given as Longitudinal x Anterior-Posterior (A-P) x Transverse The right lobe measures 3.4x1.6x1.8 cm (was 3.8x1.3x1.3 cm on 12/06/19) The left lobe measures 2.9x1.5x0.9 cm (was 3.4x1.0x0.9 cm on 12/06/19) Isthmus thickness 0.4 cm (A-P dimension) The overall thyroid gland is slightly heterogeneous with normal vascularity. No goiter. There is a small spongiform nodule in the right lower pole and a few mixed cysts in the right lobe and 2 tiny colloid cysts identified in the left lobe. #1 the right mixed solid/cystic, spongiform nodule is measured 1.0x0.6x0.6 cm (was 1.2x0.7x0.7 cm on 12/06/19 and 1.1 cm at outside report on 10/22/19) with colloid crystals floating in the small cystic portions (not micro- calcifications). It has distinct smooth borders and avascular on color doppler with benign appearance. #2 the largest mixed cyst in the right upper pole measured 0.4x0.2x0.3 cm (same as 12/06/19) with colloid crystals with entirely benign appearance Impression: Slightly small thyroid gland size without goiter or suspicious nodule. The small right mixed nodule with colloid crystals appears benign and stable or slightly smaller insize 1.1-1.2 to 1.0 cm after 1.5 years. The small mixed cyst of < 0.4 cm and bilateral tiny colloid cysts of 0.1-0.2 cm are all benign. Rec monitoring thyroid function and will repeat US study only as needed in 2-4 years FNA of the mixed nodule is rec'd only if it's enlarging in size >1.5-2.0 cm in the future. Marta Cabral MD, PhD, FACE, FACP Addendum: Lab after the visit (07/29/22) Recent Results (from the past 24 hour(s)) Basic Metabolic Panel (non-fasting) Result Value Ref Range Glucose Lvl 139 65 - 199 mg/dL BUN 11 8 - 18 mg/dL Creatinine 0.70 0.70 - 1.20 mg/dL Sodium 142 135 - 145 mmol/L Potassium 3.8 3.5 - 5.0 mmol/L Chloride 103 98 - 107 mmol/L CO2 28 22 - 31 mmol/L Anion Gap 11 5 - 15 mmol/L Calcium 9.4 8.5 - 10.5 mg/dL Estimated GFR 98 >=60 mL/min/1.73 m?? LDL Cholesterol, Direct Result Value Ref Range LDL Chol Direct 69 mg/dL Vitamin D, 25-Hydroxy Result Value Ref Range 25-OH Vit D Total 34 21 - 100 ng/mL 25-OH Vit D Interp Sufficient TSH [place] Result Value Ref Range TSH 1.27 0.27 - 4.20 mcIU/mL Hemoglobin A1c Result Value Ref Range Hemoglobin A1C 6.5 (H) 4.3 - 5.6 % Est Avg Gluc 140 mg/dL U Albumin/Cre Ratio Result Value Ref Range Alb/Cr Ratio, Random Not Calculated 0 - 29 mcg/mg Cr U Albumin Conc, Random <3.0 mg/L U Creatinine 49 mg/dL All good or better results & excellent A1c 6.5% with a total of 70 lbs weight loss which is excellent. Congrats! Ok to stay on all the current Rx. MARTA CABRAL MD DIAGNOSIS: 62 y.o. lady with confirmed Delano's thyroiditis with [...] weekly) for her T2DM with wt down 35+25 lbs over the past 2-3 yrs. Overall she has good BG control and A1c down from 8.2 to 6.1% in October 2021 which is amazing. She could [...] A1c, etc Orders Placed This Encounter Procedures ??? Hemoglobin A1c ??? TSH [place] ??? Vitamin D, 25-Hydroxy ??? LDL Cholesterol, Direct ??? Basic Metabolic Panel (non-fasting) ??? 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 4. RTC: 12 mo for thyroid US and DM and make sure that she continue lose wt further (goal wt is 185lbs) We have reviewed our plan outlined above [...] Cabral MD, PhD, FACE, FACP cc: JUAN PABLO Waterman documented in this encounter Plan of Treatment Not on file documented as of this encounter Procedures Procedure Name Priority Date/Time Associated Diagnosis Comments HC CREATININE - NON BLOOD Routine 07/29/2022 10:59 AM EDT Type 2 diabetes, controlled, 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 HC THYROID STIMULATING HORMONE, SERUM Routine 07/29/2022 10:55 AM EDT Type 2 diabetes, controlled, 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 HC VITAMIN D TOTAL-25 HYDROXY Routine 07/29/2022 10:55 AM EDT Type 2 diabetes, controlled, 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 HC LDL CHOLESTEROL, DIRECT Routine 07/29/2022 10:55 AM EDT Type 2 diabetes, controlled, 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 HC HEMOGLOBIN A1C Routine 07/29/2022 10: 55 AM EDT Type 2 diabetes, controlled, 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 BASIC METABOLIC PANEL (NON-FASTING) Routine 07/29/2022 10:55 AM EDT Type 2 diabetes, controlled, 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 documented in this encounter Results * U Albumin/Cre Ratio (07/29/2022 10:59 AM [...] Comment Spec In Lab Marta Cabral MD URINE ORDERABLES [facility] [place] [address] * Basic Metabolic Panel (non-fasting) (07/29/2022 10:55 [...] Lab Marta Cabral MD CHEMISTRY ORDERAB LES [facility] [place] [place] [address] * LDL Cholesterol, Direct (07/29/2022 10:55 AM EDT) LDL Chol Direct 69 mg/dL [facility] Comment: Lowest Risk: <100 mg/dL Lower Risk: 100-129 mg/dL Borderline High Risk: 130-159 mg/dL High Risk: 160-189 mg/dL Very High Risk: >kg=883 mg/dL Blood 07/29/2022 10:5 5 AM EDT 07/29/2022 11:15 AM EDT Narrative Resulting Agency Comment Spec In Lab Marta Cabral MD CHEMISTRY ORDERAB LES Performing Organization Address [facility] Co de Phone Number [facility] [place] [address] * Vitamin D, 25-Hydroxy (07/29/2022 10:55 AM EDT) 25-OH Vit D Total 34 21 - 100 ng/mL [facility] 25-OH Vit D Interp Sufficient [facility] Blood 07/29/2022 10:5 5 AM EDT 07/29/2022 11:15 AM EDT Narrative Resulting Agency Comment Spec In Lab Marta Cabral MD CHEMISTRY ORDERAB LES Performing Organization Address [facility] Co de Phone Number [facility] [place] [address] * TSH [place] (07/29/2022 10:55 AM EDT) Pathologist [facility] TSH 1.27 0.27 - 4.20 mcIU/mL [facility] Comment: Reference Interval (mcIU/mL): Females: ??First Trimester: 0.23-3.88 ??Second Trimester: 0.22-3.90 ??Third Trimester: 0.44-4.66 Blood 07/29/2022 10:5 5 AM EDT 07/29/2022 11:15 AM EDT Narrative Resulting Agency Comment Spec In Lab Marta Cabral MD CHEMISTRY ORDERAB LES Performing Organization Address [facility]/ZIP Co de Phone Number [facility] [place] [address] * (ABNORMAL) Hemoglobin A1c (07/29/2022 10:55 AM EDT) Hemoglobin A1C 6.5(H) 4.3 - 5.6 % [facility] Mellitus, Diabetes Care 2013; 36: Suppl. 1, S67-47 Est Avg Gluc 140 mg/dL [facility] Comment: eAG equivalents for HbA1c percentages: HbA1c(%) ?eAG(mg/dL) 6.0 ?126 6.5 ?140 7.0 ?154 7.5 ?169 8.0 ?183 8.5 ?197 9.0 ?212 9.5 ?226 10.0 ? 240 Limitations: The eAG calculation has not been validated on women, individuals below 18 years old and above 70 years old, and individuals with hemoglobinopathies. Additional resources are available on the ADA website. Ernesto ARCOS, Orlando J, Kimberly R, et al. ??Translating the A1C assay into estimated average glucose values. ??Diabetes Care 2008:31(8):1342-9254. Blood 07/29/2022 10:5 5 AM EDT 07/29/2022 11:15 AM EDT Narrative Resulting Agency Comment Spec In Lab Marta Cabral MD CHEMISTRY ORDERAB LES [facility] [place] [place] [address] documented in this encounter Visit Diagnoses Diagnosis Type 2 diabetes, controlled, with neuropathy Type II or unspecified type diabetes mellitus with neurological manifestations, not stated as uncontrolled Delano's thyroiditis Chronic lymphocytic thyroiditis Vitamin D deficiency Unspecified vitamin D deficiency 3-vessel CAD Coronary atherosclerosis of unspecified type of vessel, [place] or graft documented in this encounter Care Teams Color Paste Mixer Relationship Specialty Start Date End Date Kaylee Jaquez PA [address] [place] [id number] PCP - General Family Medicine 01/18/22 documented as of this encounter
--- OUTSIDE RECORDS SUMMARY | 2023-11-25 15:32 | XMS_ITS | Encounter Summary ---
[place] [address] Care Team Providers Care Surgical Services Assistant Name Role Phone Kaylee Jaquez Primary Care Provider Encounter Details Date Type Department Care Team (Latest Contact Info) Description 07/16/2022 Travel Social History Tobacco Use Types Packs/Day [...] on filedocumented in this encounter Care Teams Surgical Services Assistant Relationship Specialty Start Date End Date Kaylee Jaquez PA [address] [place] [address] PCP - General Family Medicine 01/18/22 documented as of this encounter
--- OUTSIDE RECORDS SUMMARY | 2023-11-25 15:32 | XMS_ITS | Encounter Summary ---
Author Organization [facility] [place] [address] Care Team Providers Care Costume Designer Name Role Phone Kaylee Jaquez Primary Care Provider Encounter Details Date Type Department Care Team (Late st Contact Info) Description 07/31/2022 Orders Only Gastroenterology at [facility] [place] [address] Nimesh Alicia MD [facility] [place] [address] Social History Tobacco Use Types Packs/Day Years [...] on filedocumented in this encounter Care Teams Costume Designer Relationship Specialty Start Date End Date Kaylee Jaquez PA [address] [place] [address] PCP - General Family Medicine 01/18/22 documented as of this encounter
--- OUTSIDE RECORDS SUMMARY | 2023-11-25 15:32 | XMS_ITS | Encounter Summary ---
Author Organization [facility] [place] [address] Care Team Providers Care Small Stock Facer Name Role Phone Kaylee Jaquez Primary Care Provider Reason for Visit * Reason Onset Date Comments Medication Refill 09/23/2022 Encounter Details Date Type Department Care Team (Late st Contact Info) Description 09/23/2022 Refill Gastroenterology at [facility] [place] [address] Nimesh Alicia MD [facility] [place] [address] Gastroparesis Social History Tobacco Use Types Packs/Day [...] Gastroparesis documented in this encounter Care Teams Small Stock Facer Relationship Specialty Start Date End Date Kaylee Jaquez PA [address] [place] [address] PCP - General Family Medicine 01/18/22 documented as of this encounter
--- OUTSIDE RECORDS SUMMARY | 2023-11-25 15:32 | XMS_ITS | Encounter Summary ---
[place] [address] Care Team Providers Care Railway Signal Electrician Name Role Phone Kaylee Jaquez Primary Care Provider Reason for Visit * Reason Onset Date Comments Prior Authorization 08/07/2022 dexlansopraz ole (Dexilant) [address] capsule Encounter Details Date Type Department Care Team (Late st Contact Info) Description 08/07/2022 [place] [phone] Crista Beckwith CMA Prior Authorization (dexlansoprazole (Dexilant) [address] capsule) Social History Tobacco Use Types Packs/Day Years [...] Telephone Encounter - Maia Gutiérrez CMA - 08/09/2022 3:20 PM EDTSummary: Approval Images from the original note were not included. PA Outcome: PA Approval Medication Prior Authorization for Primary Care Approved: dexlansoprazole (Dexilant) [address] capsule Start Date: 08/07/2022 End Date: 05/11/2023 Case/Reference #: [id number] Letter of approval will be scanned to media once received. Additional Notes: * Telephone Encounter - Crista Beckwith CMA - 08/07/2022 4:09 PM EDTSummary: JUAN PABLO submitted - dexlansoprazole Medication Prior Authorization Patient: Danielle Mills Patient : 1960 Insurance Company: [employer] Medicare Sent via: [employer] Leon: [id number] Physician: Nimesh Alicia MD Medication Requested: dexlansoprazole (Dexilant) [address] capsule Frequency/Sig: Take 1 capsule by mouth 2 times daily for 30 days. Disp: 30 Refills: 3 Currently taking: yes If yes, how lon08/2020, increased to BID dosing 07/31/22 Diagnosis for this medication: Gastroesophageal reflux disease with hiatal hernia (K21.9, K44.9) Prior medications trialed in this patient: Medication: pantoprazole EC (Protonix) 40 mg Tablet Approx Dates: 01/2020-08/2020 Outcome/Adverse Reactions: Inadequate response Medication: omeprazole (PriLOSEC) 40 mg Capsule, Approx Dates: 08/2015-01/2020 Outcome/Adverse Reactions: Inadequate response Medication: lansoprazole (PREVACID) 30 mg Capsule Approx Dates: 07/2010-12/2010, 08/2020-01/2022 Outcome/Adverse Reactions: Inadequate response Medication: esomeprazole (NexIUM) 40 mg Capsule Approx Dates: 01/2020 Outcome/Adverse Reactions: Inadequate response Additional Notes: documented in this encounter Plan of Treatment Not on file documented as of this encounter Visit Diagnoses Not on filedocumented in this encounter Care Teams Railway Signal Electrician Relationship Specialty Start Date End Date Kaylee Jaquez PA [address] [address] PCP - General Family Medicine 01/18/22 documented as of this encounter
--- OUTSIDE RECORDS SUMMARY | 2023-11-25 15:32 | XMS_ITS | Encounter Summary ---
[place] [address] Care Team Providers Care Psych Therapist Name Role Phone Kaylee Jaquez Primary Care Provider [phone] Reason for Referral * Consultation (Routine) - Closed Specialty Diagnoses / Procedures Referred By Contac t Referred To Contact [facility] Diagnoses Chronic midline low back pain, unspecified whether sciatica present Maxime Cadena MD [facility] [place] [address] [facility] [place] [address] Referral ID Status Reason Start Date Expiration Date V isits Requested Visits Authorized [id number] Closed Consult, Test & Treat 01/21/2022 01/21/2023 1 1 Reason for Visit * Reason Comments Back Pain Bilateral Leg Pain * Consultation (Routine) - Closed Specialty Diagnoses / Procedures Referred By Contac t Referred To Contact [facility] Diagnoses Intervertebral disc disease Degenerative disc disease, lumbar Radiculopathy of lumbar region Spine - Lumbar disc protrusion w/ nerve impingement/ tried PT/ MRI 11/23/21 @ [facility] *AMP or Kaylee Alfonso PA [address] [place] [address] [facility] [place] [address] Referral ID Status Reason Start Date Expiration Date V isits Requested Visits Authorized [id number] Closed Evaluate and Treat PCP Updated and/or Approved 11/28/2021 11/28/2022 6 6 Encounter Details Date Type Department Care Team (Late st Contact Info) Description 01/21/2022 3:00 PM EDT Office Visit [place] [phone] Maxime Cadena MD [facility] [place] [address] Chronic midline low back pain, unspecified whether sciatica present Social History Tobacco Use Types Packs/Day Years [...] Sign Reading Time Taken Comments Blood Pressure 131/81 01/21/2022 3:06 PM EDT Pulse 85 01/21/2022 3:06 PM EDT Temperature - - Respiratory Rate - - Oxygen Saturation - - Inhaled Oxygen Concentration - - Weight 98 kg (216 lb) 01/21/2022 3:06 PM EDT Height 165.1 cm (5' 5) 01/21/2022 3:06 PM EDT Body Mass Index 35.94 01/21/2022 3:06 PM EDT documented in this encounter Progress Notes * Maxime Cadena MD - 01/21/2022 3:00 PM EDT Chief complaint: Low back pain and History of present illness: Ms. Mills is a 61-year-old female whom I am seeing in consultation for Kaylee Jaquez in regards to her chronic back pain. She has had varying amounts of sciatica overthe years, but right now she has predominantly low back pain in the midline just below her belt line. 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 She describes occasional numbness and weakness in her legs but nothing consistent. Her pain tends a worse with prolonged sitting, though prolonged standing can also be bothersome. She gets some relief by laying on her left side. The pain occasionally bothers her at night. She denies bowel or bladder incontinence. She has done extensive physical therapy in the past with some benefit. She has been none recently. She takes Tylenol, Advil, and Flexeril with some relief. She has had many spinal injections the past but none recently. She has not had prior spinal surgery. Past medical history: Heart disease status post GA, diabetes, Delano's thyroiditis Past surgical history: Hysterectomy, hip surgery, cholecystectomy, total knee arthroplasty, bilateral carpal tunnel release, elbow surgery, shoulder surgery Medications and allergies were reviewed and are in eDH. Family history: Diabetes, cancer Social history: She is disabled. She smokes 1 pack/day. She does not drink. Review of systems: All negative except musculoskeletal as above. Physical exam Patient is 5 foot 5/10 and 16 pounds, with a BMI of 35.9 General: Patient is comfortable, no acute distress Back: Her back is mildly tender to palpation in the midline. She can flex 60 degrees and extend 10 degrees, with extension being more painful. Neurological exam: She walks with normal gait. She can heel and toe walk. Motor exam reveals 5/5 strength of all lower extremity motors. She has normal sensory exam. Reflexes are 1/4 at the knees andtrace at the ankles. Straight leg raise is negative bilaterally. She has no clonus. Hip exam: She has normal, painless range of motion of both hips. Vascular exam: She has palpable pulses bilaterally. Imaging: MRI of the lumbar spine from 11/23/2021 was reviewed. She has hemangiomas at multiple levels. She has moderate degenerative changes in the lower lumbar spine. The L5-S1 level there is transitional and hemisacralized on the right. At L4-L5, there is a left paracentral disc protrusion causingmild compression of the traversing L5 nerve root. There are no other areas of significant nerve compression. Assessment/plan: Ms. Mills is a 61-year-old female with chronic back pain in the setting of degenerative changes in the lumbar spine. She does have a small disc protrusion on the left at L4-L5, however, she does not have consistent radicular pain. 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 We discussed treatment options for this that include continued medication, further physical therapy, and injections. She would like to discuss injections with a provider in the pain clinic, so I made that referral. I see no role for surgery in her case documented in this encounter Plan of Treatment Scheduled Referrals Name Type Priority Associated Diagnoses Orde r Schedule Referral to Pain and Spine Center (Internal only) Outpatient Referral Routine Chronic midline low back pain, unspecified whether sciatica present Ordered: 01/21/2022 documented as of this encounter Visit Diagnoses Diagnosis Chronic midline low back pain, unspecified whether sciatica present documented in this encounter Care Teams Psych Therapist Relationship Specialty Start Date End Date Kaylee Jaquez PA [address] [place] [id number] PCP - General Family Medicine 01/18/22 documented as of this encounter
--- OUTSIDE RECORDS SUMMARY | 2023-11-25 15:32 | XMS_ITS | Encounter Summary ---
Author Organization [facility] [place] [address] Care Team Providers Care Barrel Cutter Name Role Phone Kaylee Jaquez Primary Care Provider [phone] Encounter Details Date Type Department Care Team (Late st Contact Info) Description 07/16/2022 10:00 AM EST Office Visit Gastroenterology at [place] [address] Nimesh Alicia MD [facility] [place] [address] Gastroparesis; Constipation, unspecified constipation type Social History Tobacco [...] as of this encounter Progress Notes * Nimesh Alicia MD - 07/16/2022 10:00 AM EST GI PROBLEM LIST Here in routine follow up Is interested in addressing her sulfur burps She has been successful through dietary intervention to lose a considerable amount of weight She also feels that her DM is better controled an dis also following with endocrinology for hoshimotos. She had a smart pill last year IMPRESSION Delayed gastric emptying. Normal small bowel transit. Normal colon transit. Review of Systems: All other systems negative except as above in HPI Past Medical History: Diagnosis Date ??? Arthritis [...] 4.67) performed by Nimesh Alicia MD at [facility] ENDOSCOPY ??? PRO UPPER GI ENDOSCOPY, BIOPSY N/A 11/19/2018 EGD WITH BIOPSY (WRVU 2.49) performed by Nimesh Alicia MD at [facility] ENDOSCOPY ??? RECTOCELE REPAIR 2014 Dr. Boo @ [facility] ??? SHOULDER SURGERY Left 06/05/2017 L shoulder AC joint resection and bicep debridement, Dr. Adrien Pedro ??? TOTAL KNEE ARTHROPLASTY 09/2009 Right total knee replacement Procedure Date: September 2009 Family History: family history is not on file. Current Outpatient Medications Medication Sig Dispense Refill ??? dexlansoprazole (DEXILANT) 30 mg Cap, Delayed Rel., Multiphasic Take 1 capsule by mouth daily. 30 capsule 5 ??? dexlansoprazole (DEXILANT) 30 mg Cap, Delayed Rel., Multiphasic Take 1 capsule by mouth daily. 30 capsule 5 ??? semaglutide (Ozempic) 1 mg/dose (4 mg/3 [...] BY SUBCUTANEOUS ROUTE FOR 90 DAYS ??? senna (Senokot) 8.6 mg Tablet Take 2 tablets by mouth daily. 60 tablet 5 ??? nitroGLYcerin (Nitrostat) 0.4 mg Tablet, Sublingual Place 0.4 mg under the tongue every 5 minutes as needed for Chest pain. ??? aspirin 81 mg Tablet, Chewable Take 81 mg by mouth daily. 90 tablet 0 ??? losartan (Cozaar) 25 mg Tablet Take 0.5 tablets by mouth daily. 45 tablet 0 ??? metoprolol succinate XL (Toprol-XL) 50 mg Tablet Sustained Release 24 hr Take 1 tablet by mouthdaily. 90 tablet 0 ??? cyclobenzaprine (Flexeril) 10 mg Tablet TAKE 1 TABLET BY MOUTH AT BEDTIME NEEDED ??? acetaminophen (TYLENOL) 500 mg Tablet Take 1,000 mg by mouth as needed for Pain. ??? amoxicillin (AMOXIL) 500 mg Tablet Take 4 tablets by mouth 1 hour prior to procedure 12 tablet 2 ??? clonazePAM (KLONOPIN) 0.5 mg Tablet Take 0.5 mg by mouth daily. 2 ??? BD ULTRA-FINE ORIG PEN NEEDLE 29 gauge x 1/2 Needle INJECT INSULIN SUBCUTANEOUSLY DIRECTED.3 No current facility-administered medications for this visit. Allergies Allergen Reactions ??? Atorvastatin Other (See Comments) ??? Codeine Other (See Comments) ??? Hydrocodone-Acetaminophen Itching ??? Indomethacin Itching ??? Oxycodone-Acetaminophen Itching ??? Prednisone ??? Rosuvastatin Other (See Comments) Physical Examination: There were no vitals taken for this visit. Alert and oriented, No acute distress Anicteric, acyanotic, MMM No neck adenopathy, no thyromegaly No wheezing Regular rhythm Abdomen soft, non-tender, non-distended, normal bowel sounds No edema No rashes Additional Testing: Reviewed available labs, imaging and endoscopy results in EDH/CIS as well as Scan Docs tab. Labs: Lab Results Component Value Date WBC 7.8 02/09/2020 HGB 13.5 02/09/2020 HCT 42.8 02/09/2020 MCV 83.8 02/09/2020 PLATELET 168 02/09/2020 Chemistry Component Value Date/Time NA 138 02/09/2020 0334 K 3.8 02/09/2020 0334 CL 100 02/09/2020 0334 CO2 29 02/09/2020 0334 BUN 12 02/09/2020 0334 CREATININE 0.78 02/09/2020 0334 Component Value Date/Time CALCIUM 8.0 (L) 02/09/2020 0334 ALKPHOS 72 02/07/2020 0729 AST 35 (H) 02/07/2020 0729 ALT 36 (H) 02/07/2020 0729 BILITOT 0.4 02/07/2020 0729 Lab Results Component Value Date ALT 36 (H) 02/07/2020 AST 35 (H) 02/07/2020 ALKPHOS 72 02/07/2020 BILITOT 0.4 02/07/2020 IMPRESSION AND RECOMMENDATIONS: Danielle Mills is a 61 y.o. woman with diabetes here in routine follow up to discuss sulfur smelling eructation. She otherwise has been feeling well. She does have DM and slowed gastric emptying on smart pill last year consistent with a diagnosis of gastroparesis. I reviewed therapeutic options for her, and given that she also has chronic constipation, I think prucalopride would be a good option for her. I have sent an Rx to her pharmacy, and she will contact me in a few weeks to let me know how she is tolerating the medication and if it is helping. 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 Nimesh Alicia MD [facility] [address] [place] [address] No referring provider defined for this encounter. documented in this encounter Plan of Treatment Not on file documented as of this encounter Visit Diagnoses Diagnosis Gastroparesis Constipation, unspecified constipation type documented in this encounter Care Teams Barrel Cutter Relationship Specialty Start Date End Date Kaylee Jaquez PA [address] [place] [address] PCP - General Family Medicine 01/18/22 documented as of this encounter
--- OUTSIDE RECORDS SUMMARY | 2023-11-25 15:32 | XMS_ITS | Encounter Summary ---
Author Organization [facility] [place] [address] Care Team Providers Care Horse Race Starter Name Role Phone Kaylee Jaquez Primary Care Provider Reason for Visit * Reason Comments Medication Refill Encounter Details Date Type Department Care Team (Late st Contact Info) Description 11/15/2022 Refill Gastroenterology at [facility] [place] [address] Nimesh Alicia MD [facility] [place] [address] Social History Tobacco Use Types Packs/Day Years [...] on filedocumented in this encounter Care Teams Horse Race Starter Relationship Specialty Start Date End Date Kaylee Jaquez PA [address] [facility] [place] [address] PCP - General Family Medicine 01/18/22 documented as of this encounter
--- OUTSIDE RECORDS SUMMARY | 2023-11-25 15:32 | XMS_ITS | Encounter Summary ---
[place] [address] Care Team Providers Care Instrument Inspector Name Role Phone Kaylee Jaquez Primary Care Provider [phone] Reason for Visit * Reason Onset Date Comments Medication Refill 02/04/2022 Encounter Details Date Type Department Care Team (Late st Contact Info) Description 02/04/2022 [place] [address] Reid Mondragon, RN Social History Tobacco Use Types Packs/Day [...] on filedocumented in this encounter Care Teams Instrument Inspector Relationship Specialty Start Date End Date Kaylee Jaquez PA [address] [place], [place] [address] PCP - General Family Medicine 01/18/22 documented as of this encounter
--- OUTSIDE RECORDS SUMMARY | 2023-11-25 15:32 | XMS_ITS | Encounter Summary ---
Author Organization [facility] Address [facility] [place] [address] Care Team Providers Care Web Developer Programmer Name Role Phone Kaylee Jaquez Primary Care Provider Reason for Visit * Reason Comments Follow-up Left sided foot and buttock pain * Consultation (Routine) - Closed Specialty Diagnoses / Procedures Referred By Contac t Referred To Contact [facility] and Sp[facility] Center Diagnoses Other specified dorsopathies, site unspecified Kaylee Jaquez PA [address] [place] [address] Maxime Cadena MD [facility] [place] [address] Referral ID Status Reason Start Date Expiration Date V isits Requested Visits Authorized [id number] Closed Consult, Test & Treat PCP Updated and/or Approved 11/22/2022 11/22/2023 1 1 Encounter Details Date Type Department Care Team (Latest Contact Info) Description 12/09/2022 9:15 AM EDT Office Visit [place] [address] Kayli Rader APRN [facility] [place] [address] Left lumbar radiculopathy Social History Tobacco Use [...] Sign Reading Time Taken Comments Blood Pressure - - Pulse - - Temperature - - Respiratory Rate - - Oxygen Saturation - - Inhaled Oxygen Concentration - - Weight 99.3 kg (219 lb) 12/09/2022 9:10 AM EDT Height 165.1 cm (5' 5) 12/09/2022 9:10 AM EDT Body Mass Index 36.44 12/09/2022 9:10 AM EDT documented in this encounter Progress Notes * Rader, Kayli Pauline, CELL POURER - 12/09/2022 9:15 AM EDT [place] [facility] Medical Decision Making: Danielle Mills is a 62 y.o. female seen today for a chief complaint of left lower extremity radicular pain most prominently following an S1 distribution. She also has some weakness to the left footwith ankle eversion again, suggestive of an S1 involvement. Today, I discussed with the patient that it would not be unreasonable to move forward with an MRI for further evaluation. She is amenable to this and I will see her back once this is completed for further discussion of options. In the interim, she will continue with her Tylenol and Celebrex. Diagnosis: ICD-10-CM 1. Left lumbar radiculopathy M54.16 MRI Lumbar Spine wo Contrast (Generic) Plan MR lumbar Follow-up with me when the above is completed HPI: Danielle Mills is a 62 y.o. female seen today for evaluation of acute issue revolving around 2 weeks of excruciating pain to her left foot, posterior calf, lateral aspect of the thigh and left buttock. She has been to the emergency room 2 times and treated with a Toradol injection. She is also connected with her primary care provider who is prescribed Celebrex. She did reach out to our clinic and was counseled to come in for a visit. Of note, she is established with Sirisha Tolliver but because of scheduling challenges, she is starting with me today. Currently, the patient reports 5 to 6 weeks of acute left lower extremity radicular pain. She reports on the day in question, she spent quite some time vacuuming her [id number]'s rug and on occasion, the vacuum would get slightly stuck and she had to pull hard on the vacuum. She then mopped to the kitchen floor. During the activity she felt okay but the next day, she had acute radiating pain to the left lower extremity. Today she reports pain radiating from the buttock into the posterior aspect of the thigh and calf and into the lateral aspect of the foot. She has some tingling in the samedistribution as the pain. She does not endorse any sense of weakness but she does have some claudica tory pain to the leg with stepping down. She has been struggling getting comfortable at night but does note that symptoms are slightly improved after switching to Celebrex through her primary care provider. However, symptoms persist and she is quite uncomfortable. ROS A ten point review of systems was completed today and, of note, pertinent positives and negatives are indicated in the HPI. reports that she has been smoking cigarettes. She has a 22.50 pack-year smoking history. She has never used smokeless tobacco. Conservative Treatment: Physical Therapy: None recently but she has extensive experience with Higinio Mcdaniel PT in the [facility] area who predominantly performs manual physical therapy practices Home Exercise Program: None currently Medications: NSAIDS: Celecoxib Helpful? Yes Acetaminophen: Yes Helpful? No Other Medications: Toradol injection x2 at the emergency room Helpful? Yes Injections: None recently Physical Examination: Wt Readings from Last 1 Encounters: 12/09/22 99.3 kg (219 lb) BMI Readings from Last 1 Encounters: 12/09/22 36.44 kg/m?? Pain: 4 (best- 2-3, sitting (positional) / Worst- 1, stepping down incorrectly, stairs, has to lay on her RT side and not on her back causes shooting pain in leg) General: Pleasant, cooperative, Mood and affect are appropriate Posture: Upright Gait: Antalgic favoring the left lower extremity Palpation: Deferred Skin: Intact with no stigmata of underlying disease. ROM: Deferred Sensation: Grossly intact throughout all dermatomes with the exception of altered sensation to the left lower extremity in an S1 distribution Neuro: Strength: LOWER RIGHT LEFT Hip Flex 5/5 5/5 Knee ext 5/ 5/5 Ank DF 5/5 5/5 EHL 5/5 5/5 Plantar Flex 5/5 5/5 Ank Eversion 5/5 4-/5 Reflexes: Knees 2/4 2/4 Ankles 1/4 0/4 Provocative Maneuvers: SLR: Positive left Imaging and Test Review: No new imaging studies have been ordered for review today CC: JUAN PABLO Waterman Referring Provider: No ref. provider found Kayli Rader APRN 12/09/2022 [facility] documented in this encounter Plan of Treatment Not on file documented as of this encounter Visit Diagnoses Diagnosis Left lumbar radiculopathy Thoracic or lumbosacral neuritis or radiculitis, unspecified documented in this encounter Care Teams Web Developer Programmer Relationship Specialty Start Date End Date Kaylee Jaquez PA [address] [place] [phone] PCP - General Family Medicine 01/18/22 documented as of this encounter
--- OUTSIDE RECORDS SUMMARY | 2023-11-25 15:32 | XMS_ITS | Encounter Summary ---
[place] [address] Care Team Providers Care Ios Software Engineer Name Role Phone Kaylee Jaquez Primary Care Provider [phone] Encounter Details Date Type Department Care Team (Latest Contact Info) Description 12/09/2022 Travel Social History Tobacco Use Types Packs/Day [...] on filedocumented in this encounter Care Teams Ios Software Engineer Relationship Specialty Start Date End Date Kaylee Jaquez PA [address] [place] [address] PCP - General Family Medicine 01/18/22 documented as of this encounter
--- OUTSIDE RECORDS SUMMARY | 2023-11-25 15:32 | XMS_ITS | Encounter Summary ---
Author [facility] [place] [address] Care Team Providers Care Lens Blank Gauger Name Role Phone Kaylee Jaquez Primary Care Provider [phone] Encounter Details Date Type Department Care Team (Late st Contact Info) Description 11/22/2022 Telephone [place] [address] Shahida Richard LPN Social History Tobacco Use Types Packs/Day Years [...] encounter Miscellaneous Notes * Telephone Encounter - Shahida Richard LPN - 11/22/2022 1:28 PM EDT Danielle called with concerns for 2 weeks on excruciating pain to her left foot, posterior calve, exterior thigh into butt left butt., she can't sleep, she can't lat down on her left side, she has had norecent imaging. She has been to local ED twice she received a shot of Toradol both times, she has also seen her PCP and he prescribed Celebrex. When stepping down on her left foot she gets a shootingpain up to her butt. She did see Dr. Cadena in January 2022, at which time he did not see a reason for surgery. Her primary cares office did send in a referral to see Dr. Cadena again, but with no new imaging Ifeel she should see either Kayli Ortiz or Dr. Chase. She is scheduled with Kayli for 12-26-22 documented in this encounter Plan of Treatment Not on file documented as of this encounter Visit Diagnoses Not on filedocumented in this encounter Care Teams Lens Blank Gauger Relationship Specialty Start Date End Date Kaylee Jaquez PA [address] [place] [id number] PCP - General Family Medicine 01/18/22 documented as of this encounter
--- OUTSIDE RECORDS SUMMARY | 2023-11-25 15:32 | XMS_ITS | Encounter Summary ---
[place] [address] Care Team Providers Care Solder Deposit Operator Name Role Phone Kaylee Jaquez Primary Care Provider [phone] Encounter Details Date Type Department Care Team (Latest Contact Info) Description 08/09/2022 Travel Social History Tobacco Use Types Packs/Day [...] on filedocumented in this encounter Care Teams Solder Deposit Operator Relationship Specialty Start Date End Date Kaylee Jaquez PA [address] [facility] [place] [address] PCP - General Family Medicine 01/18/22 documented as of this encounter
--- OUTSIDE RECORDS SUMMARY | 2023-11-25 15:32 | XMS_ITS | Encounter Summary ---
Author Organization [facility] [place] [address] Care Team Providers Care Hotbed Lever Operator Name Role Phone Kaylee Jaquez Primary Care Provider [phone] Encounter Details Date Type Department Care Team (Late st Contact Info) Description 03/06/2022 Telephone Gastroenterology at [facility] [place] [id number] Bonnie Rubio Social History Tobacco Use Types Packs/Day Years [...] encounter Miscellaneous Notes * Telephone Encounter - Bonnie Rubio - 03/06/2022 8:28 AM EDT Inbound/Outbound: OUTBOUND Spoke to Patient/Left Message: Spoke to patient Notes: Patient declines making an appointment with DR. Alicia for follow up. Patient states she is not having bowel problems at this time and is working with the spine clinic to help fix her evacuation problems. Return calls can be handled by: Any Gastro Blending Line Attendant documented in this encounter Plan of Treatment Not on file documented as of this encounter Visit Diagnoses Not on filedocumented in this encounter Care Teams Hotbed Lever Operator Relationship Specialty Start Date End Date Kaylee Jaquez PA [address] [place] [id number] PCP - General Family Medicine 01/18/22 documented as of this encounter
--- OUTSIDE RECORDS SUMMARY | 2023-11-25 15:32 | XMS_ITS | Encounter Summary ---
Author Organization [facility] [place] [address] Care Team Providers Care Stripping Machine Operator Name Role Phone Kaylee Jaquez Primary Care Provider Encounter Details Date Type Department Care Team (Latest Contact Info) Description 08/09/2022 1:40 PM EDT Office Visit Cardiology at [address] [phone] Lc Garcia MD [facility] [place] [address] ASCVD (arteriosclerotic cardiovascular disease); Hyperlipidemia, unspecified hyperlipidemia type; Hypertension, unspecified type; Current smoker Social History Tobacco Use Types [...] Sign Reading Time Taken Comments Blood Pressure 116/81 08/09/2022 1:35 PM EDT Pulse 80 08/09/2022 1:35 PM EDT Temperature - - Respiratory Rate - - Oxygen Saturation 98% 08/09/2022 1:35 PM EDT Inhaled Oxygen Concentration - - Weight 99.3 kg (219 lb) 08/09/2022 1:35 PM EDT Height 165.1 cm (5' 5) 08/09/2022 1:35 PM EDT Body Mass Index 36.44 08/09/2022 1:35 PM EDT documented in this encounter Progress Notes * Lc Garcia MD - 08/09/2022 1:40 PM EDT [facility] Outpatient Cardiology Patient: Danielle Mills : 1960 Reason for consult: ASCVD, hypertension, hyperlipidemia PCP: JUAN PABLO Waterman History of present illness: Danielle Mills is a 62 y.o. female with multivessel ASCVD who presents to establish cardiovascular care in the setting of her prior change person departing a local practice. History is notable for multivessel PCI in the context of non- STEMI in January 2022 [place] [facility] from [facility]. The patient was noted to have [...] not following with Dr. Carlos Jenkins at [facility]. She was switched to Repatha after both Crestor and atorvastatin resulted in severe constipation. She is doing well with Repatha and had recent labs docum enting an LDL of 69. She quit smoking briefly after her myocardial infarction but has remained a smoker for the past couple years. She started smoking at the age of 17 and smokes about a pack a day. She reports occasional twinges of chest pain. She recalls that her prior change person palpated her chest which reproduced the sensation. Ischemic evaluation was not previously recommended, and the patient has not had further cardiac testing since January 2020. She is taking her medications as prescribed. She is quite satisfied that she has lost 40 pounds. She is following with endocrinology for diabetes. She is taking aspirin but no clopidogrel or other antiplatelet. Review of systems: Cardiovascular: Denies orthopnea, LE edema, or PND; no palpitations. Patient Active Problem List Diagnosis ??? 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 Hepatitis ??? Constipation Added automatically from request for surgery [id number] ??? Non-ST elevation myocardial infarction (NSTEMI) ??? NSTEMI (non-ST elevated myocardial infarction) ??? BEN (obstructive sleep apnea) ??? HAMMONDS (nonalcoholic steatohepatitis) ??? Adult BMI 45.0-49.9 kg/sq m ??? Chronic low back pain ??? Benign lipomatous neoplasm ??? Cystocele ??? Depression, anxiety, insomnia, PTSD ??? Edema ??? Nicotine dependence, uncomplicated ??? Onychomycosis of toenail ??? Osteoarthritis of hip ??? Spinal stenosis of cervical region ??? Carpal tunnel syndrome ??? Gastroesophageal reflux disease with hiatal hernia ??? Type 2 diabetes mellitus Diet controlled ??? HLD (hyperlipidemia) Past Medical History: Diagnosis Date ??? Arthritis [...] 4.67) performed by Nimesh Alicia MD at [facility] ENDOSCOPY ??? PRO UPPER GI ENDOSCOPY, BIOPSY N/A 11/19/2018 EGD WITH BIOPSY (WRVU 2.49) performed by Nimesh Alicia MD at [facility] ENDOSCOPY ??? RECTOCELE REPAIR 2014 Dr. Boo @ [facility] ??? SHOULDER SURGERY Left 06/05/2017 L shoulder AC joint resection and bicep debridement, Dr. Adrien Pedro ??? TOTAL KNEE ARTHROPLASTY 09/2009 Right total knee replacement Procedure Date: September 2009 Allergies Allergen Reactions ??? Atorvastatin Other (See Comments) ??? Codeine Other (See Comments) ??? Hydrocodone-Acetaminophen Itching ??? Indomethacin Itching ??? Oxycodone-Acetaminophen Itching ??? Prednisone ??? Rosuvastatin Other (See Comments) Current Outpatient Medications Medication Sig Dispense Refill ??? dexlansoprazole (Dexilant) [address] capsule Take 1 capsule by mouth 2 times daily for 30 days. 30 capsule 3 ??? Ozempic 2 mg/dose (8 mg/3 mL) Pen Injector Inject 2 mg subcutaneously once a week. ??? liothyronine (Cytomel) 5 mcg tablet Take 1 tablet by mouth daily. 90 tablet 1 ??? prucalopride (Motegrity) 1 mg Tablet Take 1 tablet by mouth daily for 30 days. 30 tablet 3 ??? ibuprofen (Advil) 200 mg Tablet Take 800 mg by mouth as needed for Pain. ??? isosorbide dinitrate (Isordil) 30 mg Tablet Take 30 mg by mouth daily. ??? Repatha Pushtronex 420 mg/3.5 mL wearable injector INJECT 3.5ML EVERY MONTH BY SUBCUTANEOUS ROUTE FOR 90 DAYS ??? nitroGLYcerin (Nitrostat) 0.4 mg Tablet, Sublingual [...] taking: Reported on 07/29/2022) 12 tablet 2 ??? clonazePAM (KLONOPIN) 0.5 mg Tablet Take 0.5 mg by mouth daily. 2 ??? BD ULTRA-FINE ORIG PEN NEEDLE 29 gauge x 1/2 Needle INJECT INSULIN SUBCUTANEOUSLY DIRECTED.3 Social History Socioeconomic History ??? Marital status: [...] on file Housing Stability: Not on file Started smoking age 17. Continues smoke 1 pack/day. Quit briefly after her myocardial infarction. Vitals: BP 116/81 (BP Location (NBP): Left arm, Patient Position: Sitting, BP Cuff Sizes: Large Adult (32-43 cm)) Pulse 80 Ht 165.1 cm (5' 5) Wt 99.3 kg (219 lb) SpO2 98% BMI 36.44 kg/m?? Exam: Psych: The patient is able to relay the details of his medical course, and is oriented. Cardiovascular: Heart [...] CBC unremarkable. BMP unremarkable. Hemoglobin A1c 6.5%. LDL 69. ECGs: Personally reviewed. 02/07/2020: Normal [...] flow was 3. Assessment and recommendations: Cardiovascular #ASCVD, three-vessel, 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 (LAD, LPL, LPDA), preserved LV systolic function, stable and without anginal symptoms #Hyperlipidemia, on Repatha, documented allergies to atorvastatin and Crestor, recent LDL 69 #Hypertension, well controlled Noncardiac #Obesity, class 2 (BMI 36), ~40 pound weight loss since 2019 #Type 2 diabetes, recent hemoglobin A1c 6.5%, followed by Endocrinology #Current smoker, at least 45 pack years This is a very pleasant 62 y.o. female with history as above who presents to establish cardiology care following the recent departure of her local change person, Dr. Jenkins, at [facility]. History is remarkable for multivessel ASCVD status post PCI 2.5 years ago. She had preserved LV colic function at the time, has no anginal symptoms, and has a normal cardiovascular exam without evidence of heart failure. She is on reasonable medications including Repatha with an ideally managed LDL on recent labs. Blood pressure is well controlled, along with diabetes, followed by endocrinology. Her major issue is continued longstanding smoking. She has tried nicotine patches, Chantix, counseling, among other approaches. I did offer another round of tobacco cessation counseling [place] [facility], which the patient declined. After our discussion, the patient appeared to realize the gravity of the importance to quit smoking. I also advised her to increase physical activity and make better dietary choices as outlined below. -Continue current medications. -Current guidelines recommend at least 150 minutes of moderate-intensity (3-6 METs, including briskwalking, slow cycling, active yoga) or 75 minutes of high- intensity (greater than 6 METs, includingrunning, cycling at a normal speed, lap swimming) exercise per week to reduce ASCVD risk. Resistance exercise (at 50-80% of one-rep maximum) as possible is also encouraged. -The patient should attempt to follow a Mediterranean pattern diet based on vegetables, legumes, nuts, fruits, and lean vegetable or animal protein. This dietary pattern can reduce both ASCVD outcomes and mortality, particularly in patients who follow vegetarian or predominantly vegetarian versionsof this eating pattern. Intake of several food types has been shown to increase the risk of ASCVD, including sugar-sweetened beverages, sweets, refined grains, and processed meats. -Weight loss trough dietary modification and structured physical activity is recommended and was counseled. The patient has already made good progress on this, as her BMI at the time of her FL was 43. -Follow up in 1 year, sooner if concerning symptoms. Patient agrees to contact this office if symptoms worsen or fail to improve. Lc Garcia MD, PARTH, FACC, FACP, FASE Cardiovascular Medicine Thank you for this referral. If you would like to discuss this patient, please contact me at [phone] or by email at [email or web address]. CC: JUAN PABLO Waterman documented in this encounter Plan of Treatment Scheduled Orders Name Type Priority Associated Diagnoses Orde r Schedule EKG 12 Lead ECG Routine ASCVD (arteriosclerotic cardiovascular disease) One Time for 1 Occurrences starting 08/09/2022 until 08/09/2022 documented as of this encounter Visit Diagnoses Diagnosis ASCVD (arteriosclerotic cardiovascular disease) Unspecified cardiovascular disease Hyperlipidemia, unspecified hyperlipidemia type Hypertension, unspecified type Current smoker Tobacco use disorder documented in this encounter Care Teams Stripping Machine Operator Relationship Specialty Start Date End Date Kaylee Jaquez PA [address] [place] [id number] PCP - General Family Medicine 01/18/22 documented as of this encounter
--- OUTSIDE RECORDS SUMMARY | 2023-11-25 15:32 | XMS_ITS | Encounter Summary ---
Author Organization [facility] [place] [address] Care Team Providers Care Mail List Processor Name Role Phone Kaylee Jaquez Primary Care Provider [phone] Reason for Visit * Reason Onset Date Comments Medication Refill 11/01/2022 Encounter Details Date Type Department Care Team (Late st Contact Info) Description 11/01/2022 [place] [address] Marta Rivera MD [facility] [place] [address] Social History Tobacco Use Types Packs/Day Years [...] on filedocumented in this encounter Care Teams Mail List Processor Relationship Specialty Start Date End Date Kaylee Jaquez PA [address] [place] [address] PCP - General Family Medicine 01/18/22 documented as of this encounter
--- OUTSIDE RECORDS SUMMARY | 2023-11-25 15:32 | XMS_ITS | Encounter Summary ---
[place] [address] Care Team Providers Care Cafeteria Cook Name Role Phone Kaylee Jaquez Primary Care Provider [phone] Reason for Referral * Consultation (Routine) - Closed Specialty Diagnoses / Procedures Referred By Contac t Referred To Contact [facility] Diagnoses Cervical spondylosis Connective tissue and disc stenosis of intervertebral foramina of cervical region Kaylee Jaquez PA [address] [place] [id number] [facility] [place] [address] Referral ID Status Reason Start Date Expiration Date V isits Requested Visits Authorized [id number] Closed Consult, Test & Treat PCP Updated and/or Approved 01/18/2022 01/18/2023 6 6 Encounter Details Date Type Department Care Team (Latest Contact Info) Description 01/18/2022 Transcribe Orders eDH Incoming Referrals [phone] Kaylee Jaquez PA [address] [place] [phone] Cervical spondylosis Social History Tobacco Use Types Packs/Day Years [...] Referral to Pain Management Outpatient Referral Routine Cervical spondylosis Ordered: 01/18/2022 documented as of this encounter Visit Diagnoses Diagnosis Cervical spondylosis Cervical spondylosis without myelopathy documented in this encounter Care Teams Cafeteria Cook Relationship Specialty Start Date End Date Kaylee Jaquez PA [address] [place] [id number] PCP - General Family Medicine 01/18/22 documented as of this encounter
--- OUTSIDE RECORDS SUMMARY | 2023-11-25 15:33 | XMS_ITS | Encounter Summary ---
[place] [address] Care Team Providers Care Manager Product Name Role Phone Francy Lowe APRN Primary Care Provider + Reason for Visit * Reason Onset Date Comments Follow-up 08/07/2020 Tobacco Treatmen t Encounter Details Date Type Department Care Team (Late st Contact Info) Description 08/07/2020 Telephone [place] [phone] Arnaud Teague, RN Follow-up (Tobacco Treatment) Social History Tobacco Use Types Packs/Day Years Used Date Smoking Tobacco: Every Day Cigarettes 1 45 Smokeless Tobacco: Never Comments:states is quitting 11/19/2018 Alcohol Use Standard Drinks/Week Comments Not Currently 0 (1 standard drink = 0.6 oz pur e alcohol) ocassional Sex and Gender Information Value Date Recorded Sex Assigned at Not on file Gender Identity Female 02/07/2020 7:29 AM EDT Sexual Orientation Not on file documented as of this encounter Miscellaneous Notes * Telephone Encounter - Arnaud Teague RN - 08/07/2020 3:06 PM EDT DATE: 08/07/2020 NAME: Danielle Mills : 1960 Reason for Call: 6-month follow-up for Tobacco Treatment [facility] Arnaud Teague, MSN, RN-BC, NCTTP Tobacco Pricing Strategist [facility] Pager #[phone] documented in this encounter Plan of Treatment Not on file documented as of this encounter Visit Diagnoses Not on filedocumented in this encounter Care Teams Manager Product Relationship Specialty Start Date End Date Francy Lowe APRN PCP - General Family Medicine 10/19/19 02/11/21 documented as of this encounter
--- OUTSIDE RECORDS SUMMARY | 2023-11-25 15:33 | XMS_ITS | Encounter Summary ---
Author Organization [facility] [place] [address] Care Team Providers Care Drug Abuse Program Coordinator Name Role Phone Steven Jeffries MD Primary Care Provider [phone] Encounter Details Date Type Department Care Team ([facility] st Contact Info) Description 02/09/2021 Orders Only Orthopaedics at [address] [phone] Elvin Whiting MD [address] [place] [phone] Presence of right artificial knee joint; Primary osteoarthritis of right knee Social History Tobacco Use Types Packs/Day Years Used Date Smoking Tobacco: Every Day Cigarettes 0.5 45 Smokeless Tobacco: Never Comments:states is quitting [...] as of this encounter Results * XR Knee 3 Views Right (02/12/2021 10:49 AM EDT) Anatomical Region Laterality Modality Knee Right Digital Radiogra phy Impressions 02/12/2021 11:58 AM EDT Thank you for letting us participate in the care of this patient. ??If you are a health care provider and have any questions regarding this report, please contact the number below. ??For patients who have questions please contact the health animal daycare provider that requested your imaging first. ? Electronically signed by: Gloria Davidson MD, [facility] ([phone]), at 02/12/2021 11:58 AM Narrative 02/12/2021 11:58 AM EDT EXAMINATION: XR KNEE 3 VIEWS RIGHT CLINICAL HISTORY: s/p right TKA, recent fall TECHNIQUE: 3 views RIGHT knee COMPARISON: 09/15/2015 and 03/19/2018. FINDINGS: RIGHT knee: Patient status post RIGHT total knee arthroplasty. Position alignment of the prosthesis are satisfactory. There is no peripheral lucency about the hardware to suggest loosening or infection. There is a healed fracture of the RIGHT mid femoral shaft with overlap incompletely imaged. Healing fracture only identified on the RIGHT lateral knee. No radiographic complication. The RIGHT patella tracks normally. LEFT knee incidental imaging demonstrates moderate degenerative change with medial joint space narrowing and spurring of the tibial spines. Patellofemoral joint degenerative changes. Negative for osseous abnormality. Procedure Note Gloria Davidson MD - 02/12/2021 EXAMINATION: XR KNEE 3 VIEWS RIGHT CLINICAL HISTORY: s/p right TKA, recent fall TECHNIQUE: 3 views RIGHT knee COMPARISON: 09/15/2015 and 03/19/2018. FINDINGS: RIGHT knee: Patient status post RIGHT total knee arthroplasty. Position alignment of the prosthesis are satisfactory. There is no peripherallucency about the hardware to suggest loosening or infection. There is a healed fracture of the RIGHT mid femoral shaft with overlap incompletely imaged. Healing fracture only identified on the RIGHT lateralknee. No radiographic complication. The RIGHT patella tracks normally. LEFT knee incidental imaging demonstrates moderate degenerative changewith medial joint space narrowing and spurring of the tibial spines.Patellofemoral joint degenerative changes. Negative for osseous abnormality. IMPRESSION Thank you for letting us participate in the care of this patient. If youare a health care provider and have any questions regarding this report,please contact the number below. For patients who have questions please contactthe health animal daycare provider that requested your imaging first. Electronically signed by: Gloria Davidson MD, [facility]([phone]), at 02/12/2021 11:58 AM Elvin Whiting MD IMG DX ORDERABLES documented in this encounter Visit Diagnoses Diagnosis Presence of right artificial knee joint Knee joint replacement by other means Primary osteoarthritis of right knee Primary localized osteoarthrosis, lower leg Presence of right artificial knee joint Knee joint replacement by other means Primary osteoarthritis of right knee Primary localized osteoarthrosis, lower leg documented in this encounter Care Teams Drug Abuse Program Coordinator Relationship Specialty Start Date End Date Steven Jeffries MD [address] [place] [id number] PCP - General General Internal Medicine 02/12/2101/17 documented as of this encounter
--- OUTSIDE RECORDS SUMMARY | 2023-11-25 15:33 | XMS_ITS | Encounter Summary ---
Author Organization [facility] Address [facility] [place] [address] Care Team Providers Care Lab Scientist Name Role Phone Steven Jeffries MD Primary Care Provider [phone] Reason for Visit * Auth/Cert Specialty Diagnoses / Procedures Referred By Jasson t Referred To Contact Diagnoses constipation Procedures PRO COLONOSCOPY, DIAGNOSTIC COLONOSCOPY, DIAGNOSTIC Referral ID Status Reason Start Date Expiration Date Visits Re quested Visits Authorized [id number] 1 1 Encounter Details Date Type Department Care Team (Late st Contact Info) Description 08/01/2021 10:00 AM EDT - 08/01/2021 10:45 AM EDT Surgery [place] [id number] Nimesh Alicia MD [facility] [place] [address] COLONOSCOPY, POLYPECTOMY, REMOVAL LESION BY SNARE (WRVU 4.57) Social History Tobacco Use Types Packs/Day Years [...] Sign Reading Time Taken Comments Blood Pressure 108/71 08/01/2021 9:21 AM EDT Pulse 82 08/01/2021 9:21 AM EDT Temperature 36.4 ??C (97.5 ??F) 08/01/2021 9:21 AM ED T Respiratory Rate 20 08/01/2021 9:21 AM EDT Oxygen Saturation 96% 08/01/2021 9:21 AM EDT Inhaled Oxygen Concentration - - Weight 104.3 kg (230 lb) 08/01/2021 9:21 AM EDT Height - - Body Mass Index 38.27 05/30/2021 9:07 AM EST documented in this encounter Discharge Instructions * Discharge Instructions* Helena Lowry RN - 08/01/2021 11:23 AM EDT Colonoscopy: What to Expect at Home Your Recovery Your doctor will talk to you about when you will need your next colonoscopy. Your doctor can help you decide how often you need to be checked. This will depend on the results of your test and your risk for colorectal cancer. After the test, you may be bloated or have gas pains. You may need to pass gas. If a biopsy was done or a polyp was removed, you may have streaks of blood in your stool (feces) for a few days. Problems such as heavy rectal bleeding may not occur until several weeks after the test. This isn't common. But it can happen after polyps are removed. This care sheet gives you a general idea about how long it will take for you to recover. But each person recovers at a different pace. Follow the steps below to get better as quickly as possible. How can you care for yourself at home? Activity Rest when you feel tired. You can do your normal activities when it feels okay to do so. Diet Follow your doctor's directions for eating. Unless your doctor has told you not to, drink plenty of fluids. This helps to replace the fluids that were lost during the colon prep. Do not drink alcohol. Medicines Your [...] include ibuprofen (Advil, Motrin) and naproxen (Aleve). Other instructions For your safety, do not [...] occurs, please contact your Doctor. Please call [phone] before 8pm Mon-Fri with problems, questions or concerns. If you call after 8pm or on weekends, call the Hospital at [phone] and ask to speak to the [employer] presentation team member and the binder operator will contact that person for you. When should you call for help? Call 351 anytime you think you may need emergency [...] any problems. Where can you learn more? [facility] View your After Visit Summary and more online at [email or web address] If you would like to provide feedback about your hospital experience, please call the Office of Patient and Family Relations at . If you have received this After Visit Summary in error, please immediately return it in person to the department, or notify the [facility] Privacy Office by calling toll free at between the hours of 8AM and 5PM to arrange for our retrieval of the documents at no cost to you. Content Version: 12.2 ?? [id number] [employer] Care instructions adapted under license by [facility]. If you have questions about a medical condition or this instruction, always ask your healthcare professional. [employer] disclaims any warranty or liability for your use of this information. documented in this encounter Medications at Time of Discharge Medication Sig Dispensed Refills Start Date End Date nitroGLYcerin (Nitrostat) 0.4 mg Tablet, Sublingual Place 0.4 mg under the tongue every 5 minutes as needed for Chest pain. aspirin 81 mg Tablet, Chewable Take 81 mg by mouth daily. 90 tablet 02/10/2020 acetaminophen (TYLENOL) 500 mg Tablet Take 1,000 mg by mouth as needed for Pain. amoxicillin (AMOXIL) 500 mg TabletIndications:Le ft knee pain, unspecified chronicity Take 4 tablets by mouth 1 hour prior to procedure 12 tablet 2 03/26/2018 clonazePAM (KLONOPIN) 0.5 mg Tablet Take 0.5 mg by mouth daily. 2 02/26/2018 isosorbide dinitrate (Isordil) 30 mg Tablet Take 30 mg by mouth daily. 09/04/2022 glimepiride (AMARYL) 4 mg TabletIndications:Ty pe 2 diabetes, controlled, with neuropathy Take 1 tablet by mouth 2 times daily. 180 tablet 3 07/09/2021 01/29/2022 dexlansoprazole (DEXILANT) 30 mg Cap, Delayed Rel., Multiphasic Take 1 capsule by mouth daily. 30 capsule 5 07/02/2021 01/02/2022 Ozempic 1 mg/dose (2 mg/1.5 mL) Pen Injector Inject 1 mg subcutaneously every 7 days. 9 mL 3 05/30/2021 02/04/2022 Victoza 3-Emanuel 0.6 mg/0.1 mL (18 mg/3 mL) Pen InjectorIndications: Type 2 diabetes, controlled, with neuropathy INJECT 1.8 MG SUBCUTANEOUSLY ONCE DAILY 27 mL 1 05/29/2021 01/29/2022 Repatha Pushtronex 420 mg/3.5 mL wearable injector INJECT 3.5ML EVERY MONTH BY SUBCUTANEOUS ROUTE FOR 90 DAYS 12/29/2020 09/04/2022 liothyronine (Cytomel) 5 mcg Tablet Take 1 tablet by mouth daily. 90 tablet 3 12/25/2020 01/26/2022 senna (Senokot) 8.6 mg Tablet Take 2 tablets by mouth daily. 60 tablet 5 12/25/2020 08/09/2022 GIDEON ROOT, BULK, MISC by [facility].(Non-Drug; Combo Route) route. 01/29/2022 docusate sodium (Colace) 100 mg Capsule Take 100 mg by mouth 2 times daily. 01/29/2022 lansoprazole (PREVACID) 30 mg Capsule, Delayed Release(E.C.) Take 1 capsule by mouth daily. 30 capsule 12 08/29/2020 01/29/2022 Bisacodyl 5 mg Tablet Take 1 tablet by mouth every 3 days. 30 tablet 3 08/29/2020 01/29/2022 clopidogreL (Plavix) 75 mg Tablet Take 1 tablet by mouth daily. 90 tablet 02/10/2020 01/29/2022 losartan (Cozaar) 25 mg Tablet Take 0.5 tablets by mouth daily. 45 tablet 02/10/2020 09/04/2022 metoprolol succinate XL (Toprol-XL) 50 mg Tablet Sustained Release 24 hr Take 1 tablet by mouth daily. 90 tablet 02/09/2020 09/04/2022 atorvastatin (Lipitor) 80 mg Tablet Take 1 tablet by mouth every evening. 90 tablet 3 02/09/2020 01/29/2022 cyclobenzaprine (Flexeril) 10 mg Tablet TAKE 1 TABLET BY MOUTH AT BEDTIME NEEDED 09/05/2019 08/09/2022 sucralfate (CARAFATE) 100 mg/mL Suspension Take 1 g by mouth 4 times daily. PRN 01/29/2022 BD ULTRA-FINE ORIG PEN NEEDLE 29 gauge x 1/2 Needle INJECT INSULIN SUBCUTANEOUSLY DIRECTED. 3 10/17/2017 11/03/2023 documented as of this encounter Progress Notes * Mandy Goldman - 07/20/2021 8:23 AM EST Danielle Mills [id number] Diagnosis/Indication: constipation 1. Have you ever had a/an Colonoscopy before? Yes: Date when she was 51 If yes, did you have any problems with the procedure? No What type of sedation was used: Other: unknown 2. Do you take any blood thinners or have you been diagnosed with a bleeding disorder that increases your risk of bleeding with procedures? No 3. Do you have a Pacemaker or Defibrillator device? No 4. Are you a diabetic? Yes: Controlled by diet or medication? Medication 5. Do you have any Allergies to Eggs, Latex or Medications? Yes: EDH 6. Do you take any Oral Iron Supplements (Including multi-vitamins)? No 7. Do you have a history of three or more abdominal surgeries? No 8. Have you had a problem with sedation or anesthesia? No 9. Do you use a c-pap machine or oxygen tank? Neither 10. Do you take prescription narcotic pain medications, including suboxone or methodone? No 11. Do you have a preference regarding the gender of your provider? No Preference 12. Is there any other information you would like to us to note for the provider and nursing team who will perform your case? No 13. Say to patient: You must have a responsible green party who will drive you to your procedure, stay [place] for the entire duration of your procedure, and drive you home from your procedure? *Please Verify the height and weight, and adjust if height and/or weight have changed* Estimated body mass index is 39.61 kg/m?? as calculated from the following: Height as of 05/30/21: 165.1 cm (5' 5). Weight as of 05/30/21: 108 kg (238 lb). Age:61 y.o. documented in this encounter H&P Notes * Nimesh Alicia MD - 08/01/2021 10:25 AM EDT Procedure: colonoscopy Indication: constipation History of Present Illness: Danielle Mills is a 61 y.o. woman with worsening constipation here for colonsocopy Patient Active Problem List Diagnosis Code ??? Type 2 diabetes mellitus E11.9 ??? HLD (hyperlipidemia) E78.5 ??? Gastroesophageal reflux disease with hiatal hernia K21.9, K44.9 ??? 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 Carpal tunnel syndrome G56.00 ??? Cystocele TOP9474 ??? Depression, anxiety, insomnia, PTSD F32.A ??? Edema R60.9 ??? Nicotine dependence, uncomplicated F17.200 ??? Onychomycosis of toenail B35.1 ??? Osteoarthritis of hip M16.9 ??? Spinal stenosis of cervical region M48.02 ??? Chronic bilateral low back pain with right-sided sciatica M54.41, G89.29 ??? BEN (obstructive sleep apnea) G47.33 ??? HAMMONDS (nonalcoholic steatohepatitis) K75.81 ??? Adult BMI 45.0-49.9 kg/sq m Z68.42 ??? 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 Non-ST elevation myocardial infarction (NSTEMI) I21.4 ??? NSTEMI (non-ST elevated myocardial infarction) I21.4 ??? Constipation K59.00 ??? Hepatitis K75.9 Medications: Reviewed in EDH Allergies Allergen Reactions ??? Atorvastatin Other (See Comments) ??? Codeine Other (See Comments) ??? Hydrocodone-Acetaminophen Itching ??? Indomethacin Itching ??? Oxycodone-Acetaminophen Itching ??? Prednisone ??? Rosuvastatin Other (See Comments) Social History/Family History: Reviewed in EDH. No changes Exam: Patient Vitals for the past 24 hrs: Temp Pulse Resp BP SpO2 O2 Device 08/01/21 0921 36.4 ??C (97.5 ??F) 82 20 108/71 96 % RA Axox3, nad Anicteric, MMM CTAB RRR, no m/r/g abd soft nt nd +bs Assessment and Plan: Proceed with Colonoscopy: ASA Grade: ASA 2 - Patient with mild systemic disease with no functional limitations Mallampati score:III (soft palate, base of uvula visible) Sedation plan: MAC Risks and benefits of the procedure were discussed with the patient. Consent has been signed. Nimesh Alicia MD documented in this encounter Miscellaneous Notes * Op Note - Nimesh Alicia MD - 08/01/2021 10:38 AM EDT DH Operative Note Patient Name: Danielle Mills : [id number] MR#: [id number] Case Date: 08/01/2021 Surgeon: Surgeon(s) and Role: * Nimesh Alicia MD - Primary Procedure(s): COLONOSCOPY, POLYPECTOMY, REMOVAL LESION BY SNARE (WRVU 4.67) Please see Provation report for details. documented in this encounter Plan of Treatment Not on file documented as of this encounter Procedures Procedure Name Priority Date/Time Associated Diagnosis Comments SPECIMEN TO PATHOLOGY Routine 08/01/2021 11:02 AM EDT SURGICAL PATHOLOGY REPORT Routine 08/01/2021 10:55 AM EDT Colonoscopy, Remv Lesn, Snare ([id number]) 08/01/2021 10:30 AM EDT Constipation, unspecified constipation type COLONOSCOPY Routine 08/01/2021 9:51 AM EDT documented in this encounter Results * Specimen to Pathology (08/01/2021 11:02 AM EDT) AP Specimen 08/01/2021 11:0 2 AM EDT 08/01/2021 11:02 AM EDT [facility] - 08/01/2021 11:02 AM EDT Specimen requisition ordered. ??Separate Pathology report to follow Nimesh Alicia MD PATHOLOGY/CYTOLOGY O RDERABLES Performing Organization Address [facility]/ZIP Co de Phone Number [facility] [place] [address] * Surgical Pathology Report (08/01/2021 10:55 AM EDT) Surgical Pathology Report [id number] ? Location: 4T; EA11; A The signing pathologist has (i) examined the relevant preparation(s) for the specimen(s) and (ii) rendered or confirmed the diagnosis(es). . ?Surgical Pathology DIAGNOSIS A - Rectum polyps x2, excision: - ??Hyperplastic polyp. - Mucosal prolapse polyp. - ??Multiple levels examined. Electronically signed by: ?Shane ABDUL PhD, Adela Verified: ??08/06/2021 14:08 ??Pathologist Performed at: ??-[facility], [place], [place] SPECIMEN(S) SUBMITTED A - Rectum polyps x2, excision (2) CLINICAL INFORMATION 61-year-old female with constipation SPECIMEN PROCESSING A - Labeled/Fixative : Rectum polyps x2, formalin. Quantity/Size: Three, ranging 0.4 x 0.2 cm, 1.0 x 0.4 cm. Tissue Description: Red-wright, partially flattened mucosal tissues, the larger with an eccentric 0.2 cm brown polypoid focus. Sections/Process ing: Entirely submitted in 2 cassettes as follows: ?A1: ??Smaller mucosal tissues, submitted intact ?A2: ??Larger mucosal tissue, inked and trisected ??shb [facility] 08/01/2021 10:5 5 AM EDT Nimesh Alicia MD PATHOLOGY/CYTOLOGY O RDERABLES Performing Organization Address [facility] Co de Phone Number [facility] [place] [address] * COLONOSCOPY (08/01/2021 9:51 AM EDT) Pathologist [facility] COLONOSCOPY [facility] Endoscopy Procedure Date: 08/01/2021 9:51 AM ? Patient Name: Danielle Mills ? Date of : 1960 ? Age: 61 ? Order #: [id number] ? Instrument Name: [id number] ? Procedure: ? Colonoscopy Indications: ? Constipation Providers: ? Nimesh Ailcia, Deidre Vega, ? Carlos Veliz Referring MD: [...] Procedure Code(s): ?? --- Professional --- ? 11693, Colonoscopy, flexible; with ? removal of tumor(s), polyp(s), or ? other lesion(s) by snare technique Diagnosis Code(s): ?? --- Professional --- ? K59.00, Constipation, unspecified ? K63.5, Polyp of colon ? --- Technical --- ? K59.00, Constipation, unspecified ? K63.5, Polyp of colon CPT copyright 2019 [employer]. All rights reserved. The codes documented in this report are preliminary and upon oven equipment repairer review may be revised to meet current compliance requirements. Attending Participation: ? I personally performed the entire procedure. ? Nimesh Alicia, 08/01/2021 11:11:02 AM Number of Addenda: 0 Note Initiated On: 08/01/2021 9:51 AM PROVATION 08/01/2021 9:51 AM EDT Steven Jeffries MD GENERAL SURGICAL ORD ERABLES Performing Organization Address City/State/[facility] Co de Phone Number PROVATION documented in this encounter Visit Diagnoses Diagnosis Constipation- Primary Unspecified constipation Constipation, unspecified constipation type documented in this encounter Admitting Diagnoses Diagnosis Constipation Unspecified constipation documented in this encounter Administered Medications Inactive Administered Medications - up to 3 most recent administrations Medication Order MAR Action Action Date Dose Rate Site lactated ringers infusion 100 mL/hr, Intravenous, CONTINUOUS, Starting on Fri08/01/21 at 0930, Until Fri08/01/21 at 1139, Endoscopy (Day of Procedure) New Bag 08/01/2021 9:45 AM EDT 100 mL/hr 100 mL/hr documented in this encounter Active and Recently Administered Medications Times are shown in EDT. Continuous Medication Order 07/30/2021 07/31/2021 08/01/2021 lactated ringers infusion (CANCELED) 100 mL/hr, Intravenous, CONTINUOUS, Starting on Fri08/01/21 at 0930, Until Fri08/01/21 at 1139, Endoscopy (Day of Procedure) 0945 ([facility] ider: Sarah Frazier RN) documented in this encounter Care Teams Lab Scientist Relationship Specialty Start Date End Date Steven Jeffries MD [address] [place] [id number] PCP - General General Internal Medicine 02/12/2101/17 documented as of this encounter
--- OUTSIDE RECORDS SUMMARY | 2023-11-25 15:33 | XMS_ITS | Encounter Summary ---
Author Organization [facility] Address [facility] [place] [address] Care Team Providers Care Typing Secretary Name Role Phone Steven Jeffries MD Primary Care Provider Reason for Visit * Reason Comments Right Knee Pain S/P TKA dos September 2009 * Consultation (Urgent) - Closed Specialty Diagnoses / Procedures Referred By Jasson t Referred To Contact Orthopaedics Diagnoses Pain in right knee Steven Jeffries MD [address] [place] [address] [facility] [address] [place] [phone] Referral ID Status Reason Start Date Expiration Date V isits Requested Visits Authorized [id number] Closed Consult, Test & Treat PCP Updated and/or Approved 02/09/2021 02/09/2022 6 6 Encounter Details Date Type Department Care Team (Late st Contact Info) Description 02/12/2021 10:45 AM EDT Office Visit Orthopaedics at [address] [phone] Elvin Whiting MD [address] [place] [id number] Presence of right artificial knee joint; Primary [...] Progress Notes * Elvin Whiting MD - 02/12/2021 10:45 AM EDT SUBJECTIVE: Danielle is a 60 y.o. female, sent to me in consultation by Francy Lowe APRN for a yearly check of the right knee, s/p total knee arthroplasty on September 2009. She had a recent slip and fall off of a step and twisted her knee. Patient reports she went to her primary on Friday and during her exam. She is going to a spin specialist for ongoing back issues. Blood thinners: Aspirin 81 mg, Plavix Diabetic: yes, last A1C 7.0 take on 01/24/21 Cardiac history: heart attack last Jan. Has 3 stents dos 02/07/2020 No allergies to latex or nickel Past Medical History: Diagnosis Date ??? Arthritis ??? Depression ??? DM hyperosmolarity type II ??? GERD (gastroesophageal reflux disease) ??? Hepatitis ??? Hiatal hernia ??? Hyperlipidemia ??? IBS (irritable bowel syndrome) ??? PTSD (post-traumatic stress disorder) ??? Tobacco use ??? Repatha Pushtronex 420 mg/3.5 mL wearable injector ??? glimepiride (AMARYL) 4 mg Tablet ??? dexlansoprazole (DEXILANT) 30 mg Cap, Delayed Rel., Multiphasic ??? liothyronine (Cytomel) 5 mcg Tablet ??? senna (Senokot) 8.6 mg Tablet ??? GIDEON ROOT, BULK, MISC ??? nitroGLYcerin (Nitrostat) 0.4 mg Tablet, Sublingual ??? Bisacodyl 5 mg Tablet ??? Victoza 2-Emanuel 0.6 mg/0.1 mL (18 mg/3 mL) Pen Injector ??? isosorbide mononitrate CR (Imdur) 30 mg Tablet Sustained Release 24 hr ??? aspirin 81 mg Tablet, Chewable ??? clopidogreL (Plavix) 75 mg Tablet ??? losartan (Cozaar) 25 mg Tablet ??? metoprolol succinate XL (Toprol-XL) 50 mg Tablet Sustained Release 24 hr ??? acetaminophen (TYLENOL) 500 mg Tablet ??? sucralfate (CARAFATE) 100 mg/mL Suspension ??? amoxicillin (AMOXIL) 500 mg Tablet ??? clonazePAM (KLONOPIN) 0.5 mg Tablet ??? BD ULTRA-FINE ORIG PEN NEEDLE 29 gauge x 1/2 Needle ??? docusate sodium (Colace) 100 mg Capsule ??? lansoprazole (PREVACID) 30 mg Capsule, Delayed Release(E.C.) ??? atorvastatin (Lipitor) 80 mg Tablet ??? cyclobenzaprine (Flexeril) 10 mg Tablet Allergies Allergen Reactions ??? Atorvastatin Other (See Comments) ??? Codeine Other (See Comments) ??? Hydrocodone-Acetaminophen Itching ??? Indomethacin Itching ??? Oxycodone-Acetaminophen Itching ??? Prednisone ??? Rosuvastatin Other (See Comments) Family history is noncontributory. Social history: No drug or alcohol problems reported. current smoker. All other systems reviewed and were negative. Past medical history, medications and allergies were reviewed and updated where appropriate. OBJECTIVE: On exam, a well-developed, well-nourished 60 y.o. female awake, alert, oriented x3. Mild degree of pain with palpation of the MCL No gross instability Reasonable range of motion No effusion Minimal limp with ambulation IMAGING: X-Ray taken today at [facility], were reviewed with the patient and shows: of the right knee, a well applied total knee replacement. No signs of fracture or loosening ASSESSMENT: Right knee osteoarthritis, TKA Knee sprain MCL PLAN: We will lengthy discussion regards the anatomy pertinent to the diagnosis. Her x-rays look terrificno signs of loosening. She status post femur fracture midshaft years ago. The MCL does have some mild tenderness but no gross instability. I do not feel there is a need for bracing but should recoveron its own without too much difficulty. Reasons for which to return to the office were reviewed anddiscussed with the patient. [id number] treatment options were reviewed as well Cc: Francy Lowe APRN documented in this encounter Plan of Treatment Not on file documented as of this encounter Visit Diagnoses Diagnosis Presence of right artificial knee joint Knee joint replacement by other means Primary osteoarthritis of right knee Primary localized osteoarthrosis, lower leg documented in this encounter Care Teams Typing Secretary Relationship Specialty Start Date End Date Steven Jeffries MD [address] [place] [id number] PCP - General General Internal Medicine 02/12/2101/17 documented as of this encounter
--- OUTSIDE RECORDS SUMMARY | 2023-11-25 15:33 | XMS_ITS | Encounter Summary ---
[facility] Organization [facility] [place] [address] Care Team Providers Care Brim Pouncing Machine Operator Name Role Phone Steven Jeffries MD Primary Care Provider [phone] Reason for Visit * Diagnostic Test (Routine) - Closed Specialty Diagnoses / Procedures Referred By Contac t Referred To Contact Gastroenterology Diagnoses Other constipation Nausea SMARTPILL-Nausea Procedures SmartPill SMARTPILL-Nausea Nimesh Alicia MD [facility] [place] [address] [facility] [place] [address] [place] [address] Referral ID Status Reason Start Date Expiration Date V isits Requested Visits Authorized [id number] Closed Consult, Test & Treat 08/01/2021 08/01/2022 1 1 Encounter Details Date Type Department Care Team (Latest Contact Info) Description 08/17/2021 10:00 AM EDT Procedure [place] [address] Other constipation; Nausea Social History Tobacco Use Types Packs/Day Years [...] as of this encounter Progress Notes * Lissa Bryant CCMA - 08/17/2021 10:00 AM EDT The SmartPill Safety Check List was discussed with the patient and a description of the procedure was provided to the patient. All questions were answered and the patient verbalized understanding. Written instructions and contact information were given to the patient as well. The patient was given a glass of water and a SmartBar to eat. After consumption of the SmartBar, the patient was provided with the SmartPill, which was swallowed successfully with water. The patient will return the recording device once the capsule has passed or by next Friday (in five days) at the latest. Upon reading the study, if the capsule did not pass by completion of the study, the referring provider will contact the patient with any necessary next steps. * Adrien San MD - 08/17/2021 10:00 AM EDT Re: Danielle Mills Reg No:[id number] : 1960 Date of Service: 08/30/21 WIRELESS MOTILITY pH CAPSULE INGESTION (SMARTPILL) Referring provider:Nimesh Alicia Dear: Dr. Alicia We had the pleasure of performing a wireless motility pH capsule study on your patient in the GI Motility Laboratory at [facility]. CLINICAL HISTORY AND INDICATION As you know, she is a 61 y.o. female with complaints of nausea RESULTS There is appropriate loss of the recording signal and an abrupt temperature drop on the recording profile, confirming passage of the capsule. Gastric emptying time (normal 2 to 5 hours): 6 hours, 24 minutes Small bowel transit time (normal 2.5 to 6 hours): 4 hours, 42 minutes Colon transit time (normal 10 to 59 hours): 42 hours, 12 minutes Whole gut transit (normal <73 hours): 53 hours, 19 minutes IMPRESSION Delayed gastric emptying. Normal small bowel transit. Normal colon transit. Normal whole gut transit. Signed: Adrien San MD, [facility] Section of Gastroenterology and Hepatology [facility] [place] [address] V: [phone] F: [phone] CC/EC: Steven Jeffries MD [address] [place] [address] documented in this encounter Plan of Treatment Not on file documented as of this encounter Visit Diagnoses Diagnosis Other constipation Nausea Nausea alone documented in this encounter Care Teams Brim Pouncing Machine Operator Relationship Specialty Start Date End Date Steven Jeffries MD [address] [place] [address] PCP - General General Internal Medicine 02/12/2101/17 documented as of this encounter
--- OUTSIDE RECORDS SUMMARY | 2023-11-25 15:33 | XMS_ITS | Encounter Summary ---
Author Organization [facility] Address [facility] [place] [address] Care Team Providers Care Blood Typer Name Role Phone Steven Jeffries MD Primary Care Provider [phone] Reason for Visit * Auth/Cert Specialty Diagnoses / Procedures Referred By Jasson t Referred To Contact Diagnoses constipation Procedures PRO COLONOSCOPY, DIAGNOSTIC COLONOSCOPY, DIAGNOSTIC Referral ID Status Reason Start Date Expiration Date Visits Re quested Visits Authorized [id number] 1 1 Encounter Details Date Type Department Care Team (Late st Contact Info) Description 08/01/2021 10:30 AM EDT Anesthesia [place] [phone] Viviana Mcclellan MD [facility] [place] [address] Anesthesia Record Procedure Summary Procedure Name Responsible Anesthesiologist Anesthesia Start Time Anesthesia Stop Time COLONOSCOPY, POLYPECTOMY, REMOVAL LESION BY SNARE (WRVU 4.57) (Trunk) Viviana Mcclellan MD 08/01/21 1030 08/01/21 1102 Events Date Time Event Comment 08/01/2021 1030 AN Verify 1030 Start 1031 An Start Data 1036 An Induction 1038 Anesthesia Ready 1101 an stop data 1102 Recovery or ICU Handoff Della ent care was transferred to the destination unit staff after review of the patient's medical history, current anesthetic/surgical status and plan, according to the Provider Handoff Checklist. 1102 Stop 1128 Meds Name Total IV Lidocaine 60 mg Propofol 70 mg Propofol INF 312.9 mg Dexmedetomidine 6 mcg PHENYLephrine 240 mcg Lactated Ringers 500 mL * Agents Name O2 Air N2O O2 Auxiliary Flowmeter 1 * Blood No blood administrations on file. Lines, Drains, and Airways Type Details Placement Removal (RETIRED) Peripheral IV Line - Single Lumen 08/01/21; 0945; median cubital vein (antecubital fossa), left; [id number]-[id number]-[id number] catheter system; Anatomical Landmarks; 20 gauge; distraction, intradermal injection, tolerated well; 1; metacarpal vein (top of hand), right; 08/01/21; 1138 08/01/21 0945 by Sarah Frazier RN 08/01/21 1138 by Helena Lowry RN documented in this encounter Social History [...] OR Notes * Anesthesia Postprocedure Evaluation - Viviana Mcclellan MD - 08/01/2021 11:27 AM EDT Department of Anesthesiology Post-procedure Note Patient: Danielle Mills Procedure Summary Date: 08/01/21 Room / Location: [facility] / [facility] Anesthesia Start: 1030 Anesthesia Stop: 1102 Procedure: COLONOSCOPY, POLYPECTOMY, REMOVAL LESION BY SNARE (WRVU 4.67) (N/A Trunk) Diagnosis: Constipation, unspecified constipation type (constipation) Surgeons: Nimesh Alicia MD Responsible Provider: Viviana Mcclellan MD Anesthesia Type: MAC ASA Status: 4 All Anesthesia Providers: Anesthesiologist: Viviana Mcclellan MD CHILD AND YOUTH PROGRAM ASSISTANT: Elba Bean CRNA Vitals Value Taken Time BP 104/63 08/01/21 1120 Temp Pulse Resp SpO2 98 % 08/01/21 1126 Pain Level 0 08/01/21 1120 Vitals shown include unvalidated device data. Patient Location: PACU/COP Level of Consciousness: Conscious but Sleepy Pain Management: Satisfactory Analgesia PONV: None Cardiovascular Status: At Baseline Respiratory Status: At Baseline Postoperative Fluid Status: Intravascular EUvolemia Possible Anesthetic Complications: NONE apparent at time of evaluation Final Primary Anesthesia Type: MAC (The anesthetic type performed was the same as planned.) Comments: * Anesthesia Preprocedure Evaluation - Viviana Mcclellan MD - 07/31/2021 4:28 PM EDT Pre-Anesthesia Evaluation for: Danielle Mills a 61 y.o. female. Procedure(s): COLONOSCOPY, DIAGNOSTIC Patient Active Problem List Diagnosis Date Noted ??? 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 Hepatitis ??? *Constipation 08/29/2020 ??? Non-ST elevation myocardial infarction (NSTEMI) 02/07/2020 ??? NSTEMI (non-ST elevated myocardial infarction) 02/07/2020 ??? BEN (obstructive sleep apnea) 10/20/2019 ??? HAMMONDS (nonalcoholic steatohepatitis) 10/20/2019 ??? Adult BMI 45.0-49.9 kg/sq m 10/20/2019 ??? Chronic bilateral low back pain with right-sided sciatica 10/12/2019 ??? Benign lipomatous neoplasm 03/18/2018 ??? Cystocele 03/18/2018 ??? Depression, anxiety, insomnia, PTSD 03/18/2018 ??? Edema 03/18/2018 ??? Nicotine dependence, uncomplicated 03/18/2018 ??? Onychomycosis of toenail 03/18/2018 ??? Osteoarthritis of hip 03/18/2018 ??? Spinal stenosis of cervical region 03/18/2018 ??? Carpal tunnel syndrome 08/11/2014 ??? Gastroesophageal reflux disease with hiatal hernia 12/14/2010 ??? Type 2 diabetes mellitus ??? HLD (hyperlipidemia) Past Medical History: Diagnosis [...] JOINT REPLACEMENT ??? ORTHOPEDIC SURGERY ??? PRO UPPER GI ENDOSCOPY, BIOPSY N/A 11/19/2018 EGD WITH BIOPSY (WRVU 2.49) performed by Nimesh Alicia MD at [facility] ??? RECTOCELE REPAIR 2014 Dr. Boo @ [facility] ??? SHOULDER SURGERY Left 06/05/2017 L shoulder AC joint resection and bicep debridement, Dr. Adrien Pedro ??? TOTAL KNEE ARTHROPLASTY 09/2009 Right total knee replacement Procedure Date: September 2009 Social History Tobacco Use ??? Smoking status: Current Every Day Smoker Packs/day: 0.50 Years: 45.00 Pack years: 22.50 Types: Cigarettes ??? Smokeless tobacco: Never Used ??? Tobacco comment: states is quitting 11/19/2018 Substance Use Topics ??? Alcohol use: Not Currently Comment: ocassional Social History Substance and Sexual Activity Drug Use Not Currently Comment: no drugs since 1990 no IV drug use Allergies Allergen Reactions ??? Atorvastatin Other (See Comments) ??? Codeine Other (See Comments) ??? Hydrocodone-Acetaminophen Itching ??? Indomethacin Itching ??? Oxycodone-Acetaminophen Itching ??? Prednisone ??? Rosuvastatin Other (See Comments) Medications: MAR and/or home medications have been reviewed. Physical Exam: Preprocedure Vitals Current as of 07/31/21 1628 No BP, pulse, respiration, SpO2, or temperature recorded. Height: 165.1 cm (5' 5) (08/29/20) Weight: 106 kg (233 lb 11.2 oz) (08/29/20) BMI: 38.89 IBW: 57 kg (125 lb 10.6 oz) Airway Assessment: Mallampati: II TM distance: >3 FB Neck ROM: full Cardiovascular Assessment: Rhythm: regular Pulmonary Assessment: unlabored breathing Dental Assessment: Misc Assessment: IV access: Peripheral line Last Filed Perioperative Cognitive Screening None Anesthesia Plan: ASA 4 MAC, with a(n) intravenous induction 61 year old female with a PMH significant for IA (s/p Stent X 3), obesity, continued tobacco abuse,DM2, GERD, and Delano's who presents for colonoscopy. No problems with anesthesia in the past NPO No other changes in health On ASA only for anti-platelet therapy Plan: MAC Patient Active Problem List: Type 2 diabetes mellitus (E11.9) HLD (hyperlipidemia) (E78.5) Gastroesophageal reflux disease with hiatal hernia (K21.9, K44.9) Benign lipomatous neoplasm (D17.9) Carpal tunnel syndrome (G56.00) Cystocele (GJH0477) Depression, anxiety, insomnia, PTSD (F32.A) Edema (R60.9) Nicotine dependence, uncomplicated (F17.200) Onychomycosis of toenail (B35.1) Osteoarthritis of hip (M16.9) Spinal stenosis of cervical region (M48.02) Chronic bilateral low back pain with right-sided sciatica (M54.41, G89.29) BEN (obstructive sleep apnea) (G47.33) HAMMONDS (nonalcoholic steatohepatitis) (K75.81) Adult BMI 45.0-49.9 kg/sq m (Z68.42) 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, Tg 63 with normal TSH 1.75-2.25) (E06.3) Non-ST elevation myocardial infarction (NSTEMI) (I21.4) NSTEMI (non-ST elevated myocardial infarction) (I21.4) Constipation (K59.00) Hepatitis (K75.9) Region - Other Informed Consent: Anesthetic plan and risks discussed with patient. Plan discussed with CHILD AND YOUTH PROGRAM ASSISTANT. Anesthesia Screening documented in this encounter Plan of Treatment Not on file documented as of this encounter Visit Diagnoses Not on filedocumented in this encounter Administered Medications Inactive Administered Medications - up to 3 most recent administrations Medication Order MAR Action Action Date Dose Rate Site dexmedetomidine (Precedex) (4 mcg/mL) bolus injection (Anesthsia) Intravenous, PRN, Starting on Fri08/01/21 at 1037, Until Fri08/01/21 at 1102, Anesthesia Intra-op, Routine Given 08/01/2021 10:37 AM EDT 6 mcg lactated ringers infusion Intravenous, CONTINUOUS PRN, Starting on Fri08/01/21 at 1030, Until Fri08/01/21 at 1102, Anesthesia Intra-op New Bag 08/01/2021 10:30 AM EDT lidocaine (pf) (Xylocaine) (20 mg/mL) 2% injection syringe Intravenous, PRN, Starting on Fri08/01/21 at 1037, Until Fri08/01/21 at 1102, Anesthesia Intra-op, Routine Given 08/01/2021 10:37 AM EDT 60 mg PHENYLephrine in NS (PF) (HOPE-SYNEPHRINE) 0.8 mg/10 mL (80 mcg/mL) multi-dose injection Syrg Intravenous, PRN, Starting on Fri08/01/21 at 1052, Until Fri08/01/21 at 1102, Anesthesia Intra-op, Routine Given 08/01/2021 10:57 AM EDT 160 mcg Given 08/01/2021 10:52 AM EDT 80 mcg propofoL (Diprivan) (10 mg/mL) infusion Intravenous, CONTINUOUS PRN, Starting on Fri08/01/21 at 1037, Until Fri08/01/21 at 1102, Anesthesia Intra-op, Routine New Bag 08/01/2021 10:37 AM EDT 150 mcg/kg/min 93.87 mL/hr propofoL (Diprivan) 10 mg/mL bolus injection (Anesthesia) Intravenous, PRN, Starting on Fri08/01/21 at 1037, Until Fri08/01/21 at 1102, Anesthesia Intra-op Given 08/01/2021 10:39 AM EDT 20 mg Given 08/01/2021 10:37 AM EDT 50 mg documented in this encounter Care Teams Blood Typer Relationship Specialty Start Date End Date Steven Jeffries MD [address] [address] PCP - General General Internal Medicine 02/12/2101/17 documented as of this encounter
--- OUTSIDE RECORDS SUMMARY | 2023-11-25 15:33 | XMS_ITS | Encounter Summary ---
Author Organization [facility] Address [facility] [place] [address] Care Team Providers Care Medical Staff Services Manager Name Role Phone Steven Jeffries MD Primary Care Provider [phone] Reason for Visit * Auth/Cert Specialty Diagnoses / Procedures Referred By Jasson t Referred To Contact Diagnoses constipation Procedures PRO COLONOSCOPY, DIAGNOSTIC COLONOSCOPY, DIAGNOSTIC Referral ID Status Reason Start Date Expiration Date Visits Re quested Visits Authorized [id number] 1 1 Encounter Details Date Type Department Care Team (Latest Contact Info) Description 08/01/2021 8:51 AM EDT - 08/01/2021 11:48 AM EDT Hospital Encounter Gastroenterology at [facility] [place] [phone] Nimesh Alicia MD [facility] [place] [address] Constipation Discharge Disposition: Home Social History Tobacco Use [...] Sign Reading Time Taken Comments Blood Pressure 93/64 08/01/2021 11:30 AM EDT Pulse 82 08/01/2021 9:21 AM EDT Temperature 36.4 ??C (97.5 ??F) 08/01/2021 9:21 AM ED T Respiratory Rate 18 08/01/2021 11:30 AM EDT Oxygen Saturation 98% 08/01/2021 11:30 AM EDT Inhaled Oxygen Concentration - [...] occurs, please contact your Doctor. Please call [phone] before 8pm Mon-Fri with problems, questions or concerns. If you call after 8pm or on weekends, call the Hospital at [phone] and ask to speak to the Nursing Care Attendant operations agent and the receptionist/telephone operator will contact that person for you. When should you call for help? Call [phone] anytime you think you may need emergency [...] any problems. Where can you learn more? [facility] View your After Visit Summary and more online at [email or web address] If you would like to provide [...] cost to you. Content Version: 12.2 ?? 9801-1175 [employer]. Care instructions adapted under license by [facility]. If you have questions about a medical condition or this instruction, always ask your healthcare professional. [employer] disclaims any warranty or liability for your [...] 12/25/2020 08/09/2022 GIDEON ROOT, BULK, MISC by [facility].(Non-Drug; Combo Route) route. 01/29/2022 docusate sodium (Colace) [...] - 07/20/2021 8:23 AM EST Danielle Mills [id number] Diagnosis/Indication: constipation 1. Have you ever had [...] to patient: You must have a responsible democrat who will drive you to your procedure, [...] ??? Carpal tunnel syndrome G56.00 ??? Cystocele [id number] ??? Depression, anxiety, insomnia, PTSD F32.A ??? [...] Operative Note Patient Name: Danielle Mills : [id number] MR#: [id number] Case Date: 08/01/2021 Surgeon: Surgeon(s) and Role: * Nimseh Alicia MD - Primary Procedure(s): COLONOSCOPY, POLYPECTOMY, REMOVAL LESION BY SNARE (WRVU 4.67) Please see Provation report for details. documented in this encounter Plan of Treatment Not on file documented as of this encounter Procedures Procedure Name Priority Date/Time Associated Diagnosis Comments SPECIMEN TO PATHOLOGY Routine 08/01/2021 11:02 AM EDT SURGICAL PATHOLOGY REPORT Routine 08/01/2021 10:55 AM EDT Colonoscopy, Remv Lesn, Snare ([id number]) 08/01/2021 10:30 AM EDT Constipation, unspecified constipation type COLONOSCOPY Routine 08/01/2021 9:51 AM EDT documented in this encounter Results * Specimen to Pathology (08/01/2021 11:02 AM EDT) AP Specimen 08/01/2021 11:0 2 AM EDT 08/01/2021 11:02 AM EDT Narrative [facility] - 08/01/2021 11:02 AM EDT Specimen requisition ordered. ??Separate Pathology report to follow Nimesh Alicia MD PATHOLOGY/CYTOLOGY O RDERABLES [facility] [place] [address] * Surgical Pathology Report (08/01/2021 10:55 AM EDT) Surgical Pathology Report [id number] ? Location: 4T; EA11; A The signing pathologist has (i) examined the relevant preparation(s) for the specimen(s) and (ii) rendered or confirmed the diagnosis(es). . ?Surgical Pathology DIAGNOSIS A - Rectum polyps x2, excision: - ??Hyperplastic polyp. - Mucosal prolapse polyp. - ??Multiple levels examined. Electronically signed by: ?Shane ABDUL PhD, Adela Verified: ??08/06/2021 14:08 ??Pathologist Performed at: ??-[facility] Dept. of Pathology, [place], [place] SPECIMEN(S) SUBMITTED A - Rectum polyps [...] ??Larger mucosal tissue, inked and trisected ??shb [facility] 08/01/2021 10:5 5 AM EDT Nimesh Alicia MD PATHOLOGY/CYTOLOGY O RDERABLES [facility] [place] [address] * COLONOSCOPY (08/01/2021 9:51 AM EDT) COLONOSCOPY [facility] Procedure Date: 08/01/2021 9:51 AM ? Patient Name: Danielle Mills ? Date of : 1960 ? Age: 61 ? Order #: [id number] ? Instrument Name: [id number] ? Procedure: ? Colonoscopy Indications: ? Constipation [...] Procedure Code(s): ?? --- Professional --- ? 62491, Colonoscopy, flexible; with ? removal of tumor(s), polyp(s), or ? other lesion(s) by snare technique Diagnosis Code(s): ?? --- Professional --- ? K59.00, Constipation, unspecified ? K63.5, Polyp of colon ? --- Technical --- ? K59.00, Constipation, unspecified ? K63.5, Polyp of colon CPT copyright 2019 [employer]. All rights reserved. The codes documented in this report are preliminary and upon vp software review may be revised to meet current compliance requirements. Attending Participation: ? I personally performed the entire procedure. ? Nimesh Alicia, 08/01/2021 11:11:02 AM Number of Addenda: 0 Note Initiated On: 08/01/2021 9:51 AM PROVATION 08/01/2021 9:51 AM EDT Steven Jeffries MD GENERAL SURGICAL ORD ERABLES Performing Organization Address City/State/[facility] Co de Phone Number PROVATION documented in this encounter Visit Diagnoses Diagnosis Constipation- Primary Unspecified constipation documented in this encounter Admitting Diagnoses Diagnosis [...] CONTINUOUS, Starting on Fri08/01/21 at 0930, Until 08/01/21 at 1139, Endoscopy (Day of Procedure) 0945 ([facility] ider: Sarah Frazier RN) documented in this encounter Care Teams Medical Staff Services Manager Relationship Specialty Start Date End Date Steven Jeffries MD [address] [place] [address] PCP - General General Internal Medicine 02/12/2101/17 documented as of this encounter
--- OUTSIDE RECORDS SUMMARY | 2023-11-25 15:33 | XMS_ITS | Encounter Summary ---
Author Organization [facility] Address [facility] [place] [address] Care Team Providers Care Information Systems Auditor Name Role Phone Steven Jeffries MD Primary Care Provider [phone] Reason for Referral * Diagnostic Test (Routine) - Closed Specialty Diagnoses / Procedures Referred By Contac t Referred To Contact Gastroenterology Diagnoses Other constipation Nausea SMARTPILL-Nausea Procedures SmartPill SMARTPILL-Nausea Nimesh Alicia MD [facility] [place] [address] [facility] [place] [address] [place] [address] Referral ID Status Reason Start Date Expiration Date V isits Requested Visits Authorized [id number] Closed Consult, Test & Treat 08/01/2021 08/01/2022 1 1 Encounter Details Date Type Department Care Team (Late st Contact Info) Description 08/01/2021 Orders [place] [address] Nimesh Alicia MD [facility] [place] [address] Other constipation; Nausea Social History Tobacco Use [...] Type Priority Associated Diagnoses Orde r Schedule SmartPill GI Routine Other constipation Nausea Expected: 08/01/2021, Expires: 01/31/2022 documented as of this encounter Visit Diagnoses Diagnosis Other constipation Nausea Nausea alone documented in this encounter Care Teams Information Systems Auditor Relationship Specialty Start Date End Date Steven Jeffries MD [address] [place] [address] PCP - General General Internal Medicine 02/12/2101/17 documented as of this encounter
--- OUTSIDE RECORDS SUMMARY | 2023-11-25 15:33 | XMS_ITS | Encounter Summary ---
Author Organization [facility] [place] [address] Care Team Providers Care Emulsion Coater Name Role Phone Francy Lowe APRN Primary Care Provider + Encounter Details Date Type Department Care Team (Late st Contact Info) Description 12/22/2020 Orders Only Gastroenterology at [facility] [place] [address] Nimesh Alicia MD [facility] [place] [address] Constipation, unspecified constipation type Social History Tobacco [...] type documented in this encounter Care Teams Emulsion Coater Relationship Specialty Start Date End Date Francy Lowe APRN PCP - General Family Medicine 10/19/19 02/11/21 documented as of this encounter
--- OUTSIDE RECORDS SUMMARY | 2023-11-25 15:33 | XMS_ITS | Encounter Summary ---
Author Organization [facility] [place] [address] Care Team Providers Care Quality Consultant Name Role Phone Francy Lowe APRN Primary Care Provider + Reason for Visit * Reason Comments Medication Refill Encounter Details Date Type Department Care Team (Late st Contact Info) Description 10/13/2020 Refill [place] [address] Marta Rivera MD [facility] [place] [address] Social History Tobacco Use Types Packs/Day Years [...] on filedocumented in this encounter Care Teams Quality Consultant Relationship Specialty Start Date End Date Francy Lowe APRN PCP - General Family Medicine 10/19/19 02/11/21 documented as of this encounter
--- OUTSIDE RECORDS SUMMARY | 2023-11-25 15:33 | XMS_ITS | Encounter Summary ---
Author Organization [facility] [place] [address] Care Team Providers Care Share Holder Name Role Phone Francy Lowe APRN Primary Care Provider + Reason for Visit * Reason Onset Date Comments Medication Refill 12/25/2020 Encounter Details Date Type Department Care Team (Late st Contact Info) Description 12/25/2020 Refill Gastroenterology at [facility] [place] [address] Nimesh Alicia MD [facility] [place] [address] Social History Tobacco Use Types Packs/Day Years [...] on filedocumented in this encounter Care Teams Share Holder Relationship Specialty Start Date End Date Francy Lowe APRN PCP - General Family Medicine 10/19/19 02/11/21 documented as of this encounter
--- OUTSIDE RECORDS SUMMARY | 2023-11-25 15:33 | XMS_ITS | Encounter Summary ---
Author Organization [facility] [place] [address] Care Team Providers Care Firer Automatic Stoker Name Role Phone Francy Lowe APRN Primary Care Provider + Reason for Visit * Reason Comments Medication Refill Encounter Details Date Type Department Care Team (Late st Contact Info) Description 01/06/2021 [place] [address] Marta Rivera MD [facility] [place] [address] Type 2 diabetes, controlled, with neuropathy Social History Tobacco Use Types Packs/Day Years [...] as of this encounter Visit Diagnoses Diagnosis Type 2 diabetes, controlled, with neuropathy Type II or unspecified type diabetes mellitus with neurological manifestations, not stated as uncontrolled documented in this encounter Care Teams Firer Automatic Stoker Relationship Specialty Start Date End Date Francy Lowe APRN PCP - General Family Medicine 10/19/19 02/11/21 documented as of this encounter
--- OUTSIDE RECORDS SUMMARY | 2023-11-25 15:33 | XMS_ITS | Encounter Summary ---
Author Organization [facility] [place] [address] Care Team Providers Care Roofer Vinyl Coating Name Role Phone Francy Lowe APRN Primary Care Provider + Reason for Visit * Reason Comments Medication Refill Encounter Details Date Type Department Care Team (Late st Contact Info) Description 08/29/2020 Ref[place] [address] Marta Rivera MD [facility] DR ENDOCRIN[place] [address] Type 2 diabetes, controlled, with neuropathy Social [...] uncontrolled documented in this encounter Care Teams Roofer Vinyl Coating Relationship Specialty Start Date End Date Francy Lowe APRN PCP - General Family Medicine 10/19/19 02/11/21 documented as of this encounter
--- OUTSIDE RECORDS SUMMARY | 2023-11-25 15:33 | XMS_ITS | Encounter Summary ---
Author Organization [facility] [place] [address] Care Team Providers Care Sign Hanger Name Role Phone Steven Jeffries MD Primary Care Provider [phone] Reason for Visit * Reason Comments Medication Refill Encounter Details Date Type Department Care Team (Late st Contact Info) Description 05/29/2021 Refill [place] [id number] Marta Rivera MD [facility] [place] [address] Type 2 diabetes, controlled, with neuropathy Social [...] uncontrolled documented in this encounter Care Teams Sign Hanger Relationship Specialty Start Date End Date Steven Jeffries MD [address] [place] [phone] PCP - General General Internal Medicine 02/12/2101/17 documented as of this encounter
--- OUTSIDE RECORDS SUMMARY | 2023-11-25 15:33 | XMS_ITS | Encounter Summary ---
Author Organization [facility] [place] [address] Care Team Providers Care Software Support Technician Name Role Phone Francy Lowe APRN Primary Care Provider + Reason for Visit * Reason Onset Date Comments Medication Refill 12/25/2020 Encounter Details Date Type Department Care Team (Late st Contact Info) Description 12/25/2020 Ref[place] [address] Marta Rivera MD [facility] [place] [address] Social History Tobacco Use Types Packs/Day Years [...] on filedocumented in this encounter Care Teams Software Support Technician Relationship Specialty Start Date End Date Francy Lowe APRN PCP - General Family Medicine 10/19/19 02/11/21 documented as of this encounter
--- OUTSIDE RECORDS SUMMARY | 2023-11-25 15:33 | XMS_ITS | Encounter Summary ---
Author Organization [facility] [address] Care Team Providers Care Marine Design Engineer Name Role Phone Steven Jeffries MD Primary Care Provider [phone] Reason for Visit * Reason Comments Medication Refill Encounter Details Date Type Department Care Team (Late st Contact Info) Description 05/31/2021 Refill Gastroenterology at [facility] [place] [address] Nimesh Alicia MD [facility] [place] [address] Social History Tobacco Use Types Packs/Day Years [...] on filedocumented in this encounter Care Teams Marine Design Engineer Relationship Specialty Start Date End Date Steven Jeffries MD [address] [place], [place] [phone] PCP - General General Internal Medicine 02/12/2101/17 documented as of this encounter
--- OUTSIDE RECORDS SUMMARY | 2023-11-25 15:33 | XMS_ITS | Encounter Summary ---
Author Organization [facility] [place] [address] Care Team Providers Care Bus Info Consultant Name Role Phone Steven Jeffries MD Primary Care Provider [phone] Reason for Visit * Reason Comments Medication Refill Encounter Details Date Type Department Care Team (Late st Contact Info) Description 04/26/2021 Refill Gastroenterology at [facility] [place] [address] Nimesh Alicia MD [facility] [place] [address] Social History Tobacco Use Types Packs/Day Years [...] on filedocumented in this encounter Care Teams Bus Info Consultant Relationship Specialty Start Date End Date Steven Jeffries MD [address] [place], [place] [phone] PCP - General General Internal Medicine 02/12/2101/17 documented as of this encounter
--- OUTSIDE RECORDS SUMMARY | 2023-11-25 15:33 | XMS_ITS | Encounter Summary ---
[place] [address] Care Team Providers Care Instrument Checker Name Role Phone Steven Jeffries MD Primary Care Provider [phone] Encounter Details Date Type Department Care Team (Latest Contact Info) Description 02/12/2021 10:35 AM EDT Ancillary Procedure XRay at [address] [address] Elvin Whiting MD [address] [place] [id number] Presence of right artificial knee joint; Primary [...] KNEE AP LAT AXIAL PATELLA RIGHT Routine 02/12/2021 10:49 AM EDT Presence of right artificial knee joint Primary osteoarthritis of right knee documented in [...] who have questions please contact the health hospice spiritual care coordinator that requested your imaging first. ? Electronically signed by: Gloria Davidson MD, [facility] ([phone]), at 02/12/2021 11:58 AM Narrative 02/12/2021 11:58 [...] patients who have questions please contactthe health hospice spiritual care coordinator that requested your imaging first. Electronically signed by: Gloria Davidson MD, [facility]([phone]), at 02/12/2021 11:58 AM Elvin Whiting MD IMG DX ORDERABLES documented in this encounter Visit Diagnoses Diagnosis Presence of right artificial knee joint Knee joint replacement by other means Primary osteoarthritis of right knee Primary localized osteoarthrosis, lower leg documented in this encounter Care Teams Instrument Checker Relationship Specialty Start Date End Date Steven Jeffries MD [address] [place] [id number] PCP - General General Internal Medicine 02/12/2101/17 documented as of this encounter
--- OUTSIDE RECORDS SUMMARY | 2023-11-25 15:33 | XMS_ITS | Encounter Summary ---
Author Organization [facility] [place] [address] Care Team Providers Care Director Of Curriculum Name Role Phone Steven Jeffries MD Primary Care Provider [phone] Encounter Details Date Type Department Care Team (Late st Contact Info) Description 05/30/2021 9:30 AM EST Office [place] [id number] Marta Rivera MD [facility] [address] [place] [address] Type 2 diabetes, controlled, with neuropathy; Delano's thyroiditis; Vitamin D deficiency; Thyroid nodule Social History Tobacco Use Types Packs/Day Years [...] Sign Reading Time Taken Comments Blood Pressure 122/59 05/30/2021 9:07 AM EST Pulse 89 05/30/2021 9:07 AM EST Temperature 36.2 ??C (97.2 ??F) 05/30/2021 9:07 AM ES T Respiratory Rate - - Oxygen Saturation 97% 05/30/2021 9:07 AM EST Inhaled Oxygen Concentration - - Weight 108 kg (238 lb) 05/30/2021 9:07 AM EST Height 165.1 cm (5' 5) 05/30/2021 9:07 AM EST Body Mass Index 39.61 05/30/2021 9:07 AM EST documented in this encounter Patient Instructions * Patient Instructions* Marta Rivera MD - 05/30/2021 9:30 AM EST PLAN: 1. Medication: Patient will continue taking liothyronine 5 mcg daily without side effect os palpitation at this very low dose. Previously, LT4 made her feel very depressed with more anxiety while T3 (the active short-acting form) seems to help with some of [...] complication of the medication prescribed. Target TSH 1.0-4.0 for her thyroid nodule andcardiac issues. To switch victoza pen 1.8 mg sc daily => ozempic pen 1 mg sc weekly for her T2DM and obesity with lowered cardiovascular outcomes. Ok to continue glimiperide 4 mg 2x/day and allow her to taper to 4-6 mg/day if needed to prevent hypoglycemia. To hole if NPO or low BG<80. Patient will continue all other medications Ideally she should resume using CPAP at night to reduce daytime fatigue for her BEN and to quit smoking completely. 2. To eat low fat/controlled carb and healthy diet as well as exercise as tolerated to keep weight down and be able to cut back on insulin dose further. 3. Lab: already checked lab as above and to recheck lab locally with PCP q 3 mo for A1c and TSH X-ray/Imaging study: Already done Office Thyroid ultrasound for thyroid nodule size after a year atour office by the same head still operator next spring/summer. 4. RTC: 12 mo via Telehealth for her thyroid and T2DM and will make sure that she cont to lose wt with good A1c & TSH further. Marta Rivera MD, PhD, FACE, FACP documented in this encounter Progress Notes * Marta Rivera MD - 05/30/2021 9:30 AM EST Images from the original note were not included. Endocrinology Follow-up Note Date of Visit: 05/30/2021 Patient: Name: Danielle Mills : 1960 PCP: Steven Jeffries MD Reason for follow-up: Delano's thyroiditis with thyroid nodule, obesity with T2DM (A1c 6.8-7.1% recently off high dose insulin and tolerated victoza and glimiperide) and metabolic syndrome, recently admitted in late Jan 2020 for TX s/p 3 stents (02/07/20) Patient verbally consents to this telephone visit and understands that this visit may be billed, similar to a clinic office visit. I provided care to the patient today via telephone call. The total time associated with this visit was 30 minutes. HISTORY OF PRESENT ILLNESS: Danielle Mills is a very pleasant 60 y.o. 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 However, she is having all hypothyroid symptoms with wt gain despite eating healthier and very fatigue all the time with dry skin, scalp hair loss, depressed mood, etc. So we tried a small dose of levothyroxine but it caused her to feel very depressed and switched to low dose cytomel 5 mcg qd instead since 11/01/19. Her noted improvement and she feels less sleepy without constipation. She also has T2DM with good control on lantus 100u => down to 94u => 86u qAM lately after wt loss of 10 lbs as she cut back on carb intake. She used to have low BG dropped from 104 to 54 overnight so we'd rec reducing lantus by 10-20% which is 10-20u down further if low BG<80 while fasting(not by 2u as she is on such a high dose). Target is to keep fasting BG 80-140 range without low toavoid wt gain. She could not tolerate metformin, GLP-1 (byetta or victoza) or Jardiance with yeast infection. Her last A1c was better down from 8.2 to 6-8-7.1% at target. She was diagnosed with BEN and unable to use CPAP due to more sinus issue so some of her daytime fatigue could be related to BEN. She recently admitted due to TX s/p 3 stents for her 3vss CAD with summary as shown below: Hospital Course during 02/06-02/09/20: #NSTEMI s/p PCI with JEANETH to LAD, LPA and LPL1 Admitted to the cardiology service. The patient was taken to the lab technologist and noted to have 3 vessel disease. Given known diabetes and multivessel disease, decision made to discuss with further regarding CABG; IABP placed due to chest pain. Upon discussion with CT surgery, it was thought that she did not have good bypass targets and thus decision was for PCI to LAD, LPA, and LPL1.She patient tolerated the procedure well. The IABP was removed with no issues and she returned to the [facility]. During the cath, she was also noted to have LVEDP of 34 and she was diuresed with IV furosemide 40.She responded well to the lasix and diuresed a net negative 3L. No issues with diuresis and her symptoms improved. At the time of discharge, she was noted to be hemodynamically stable with no issues.She was asymptomatic at discharge. Patient has FH of thyroid problem on mother side but no family history of thyroid cancer that patient is aware of. No previous head and neck irradiation and does not take other supplements or medications that can cause low thyroid. She noticed mild goiter, R >L with some neck discomfort and occasional difficulty swallowing. Thyroid US at [facility] on 10/22/19 showed a Rt thyroid nodule of 1.1 cm and the others were < 1 cm with rec to FU in 6 mo. Since she has underlying Delano's thyroiditis we rechecked US at last visit on 12/06/19 to look at the US images realtime for nodule characteristics and there is no need for FNAbiopsy. Impression: Normal thyroid gland size without goiter or suspicious nodule. The 1.2 cm right mixed nodule with colloid crystals appears benign and will monitor the size next year. The small mixed cyst of < 0.4 cm and bilateral tiny colloid cysts of 0.1-0.2 cm are all benign. Rec monitoring thyroid function and will repeat US study after a year. No need for FNA biopsy yet. FNA of the mixed nodule is rec'd only if it's enlarging in size > 1.5-2.0 cm in the future. Recent labs: 06/03/19 10/13/19 TSH 2.25 1.75 FT4 0.96 0.96 still borderline low FT3 3.3 4.4 (nl 2.8-5.3) TPO Ab 182H 324H Tg AB 63H 61H Fatigue - Yes, a bit better Weight gain - better & lost 10 lbs from 274 to 264 lbs over 6 weeks and then 256 lbs recently which is excellent Intolerance to cold - Yes => better Dry skin - Yes => better in her LEs constipation - Yes => better Menstrual irregularities - No, already menopause (s/p LISA at age 34 in 1994) Muscle and joint pain - Yes Sleep disturbances - Yes, BEN not on CPAP any more for a year due to sinus Forgetfulness - some Globus sensation - some Difficulty swallowing - occasionally Difficulty breathing - no Hoarseness or voice change - No In term of diabetes, she responded very well and tolerated victoza pen up to 1.8 mg sc qd without problem and glimiperide 4 mg bid very well without insulin at all (used to take lantus 60-100 units/day prior). She had much better A1c 6.8- 7.1% now. She checked FSBG 1-2d/day and noted low BG 68 once in the afternoon so she can reduced glimiperide 4 mg bid to 6mg/day for now. REVIEW OF SYSTEMS: as per HPI, all other systems reviewed and negative PAST MEDICAL HISTORY Patient Active Problem List Diagnosis Code ??? Type 2 diabetes mellitus E11.9 ??? HLD (hyperlipidemia) E78.5 ??? Gastroesophageal reflux disease with hiatal hernia K21.9, K44.9 ??? 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 Carpal tunnel syndrome G56.00 ??? Cystocele [id number] ??? Depression, anxiety, insomnia, PTSD F32.A ??? [...] to Visit Medication Sig Dispense Refill ??? Victoza 3-Emanuel 0.6 mg/0.1 mL (18 mg/3 mL) Pen Injector INJECT 1.8 MG SUBCUTANEOUSLY ONCE DAILY 27 mL 1 ??? Dexilant 30 mg Cap, Delayed Rel., Multiphasic Take 1 capsule by mouth once daily 30 capsule 0 ??? glimepiride (AMARYL) 4 mg Tablet TAKE 1 TABLET BY MOUTH TWICE DAILY - DOSE INCREASE 180 tablet 0 ??? Repatha Pushtronex 420 mg/3.5 mL wearable injector INJECT 3.5ML EVERY MONTH BY SUBCUTANEOUS ROUTE FOR 90 DAYS ??? liothyronine (Cytomel) 5 mcg Tablet Take 1 tablet by mouth daily. 90 tablet 3 ??? senna (Senokot) 8.6 mg Tablet Take 2 tablets by mouth daily. 60 tablet 5 ??? GIDEON ROOT, BULK, MISC by Misc.(Non-Drug; Combo Route) route. ??? docusate sodium (Colace) 100 mg Capsule Take 100 mg by mouth 2 times daily. ??? nitroGLYcerin (Nitrostat) 0.4 mg Tablet, Sublingual Place 0.4 mg under the tongue every 5 minutes as needed for Chest pain. ??? Bisacodyl 5 mg Tablet Take 1 tablet by mouth every 3 days. 30 tablet 3 ??? aspirin 81 mg Tablet, Chewable Take 81 mg by mouth daily. 90 tablet 0 ??? clopidogreL (Plavix) 75 mg Tablet Take 1 tablet by mouth daily. 90 tablet 0 ??? losartan (Cozaar) 25 mg Tablet Take 0.5 tablets by mouth daily. 45 tablet 0 ??? metoprolol succinate XL (Toprol-XL) 50 mg Tablet Sustained Release 24 hr Take 1 tablet by mouthdaily. 90 tablet 0 ??? acetaminophen (TYLENOL) 500 mg Tablet Take 1,000 mg by mouth every 6 hours as needed for Pain. ??? sucralfate (CARAFATE) 100 mg/mL Suspension Take 1 g by mouth 4 times daily. PRN ??? amoxicillin (AMOXIL) 500 mg Tablet Take 4 tablets by mouth 1 hour prior to procedure 12 tablet 2 ??? clonazePAM (KLONOPIN) 0.5 mg Tablet Take 0.5 mg by mouth daily. 2 ??? BD ULTRA-FINE ORIG PEN NEEDLE 29 gauge x 1/2 Needle INJECT INSULIN SUBCUTANEOUSLY DIRECTED.3 ??? lansoprazole (PREVACID) 30 mg Capsule, Delayed Release(E.C.) Take 1 capsule by mouth daily. 30 capsule 12 ??? atorvastatin (Lipitor) 80 mg Tablet Take 1 tablet by mouth every evening. (Patient not taking: Reported on 02/12/2021) 90 tablet 3 ??? cyclobenzaprine (Flexeril) 10 mg Tablet TAKE 1 TABLET BY MOUTH AT BEDTIME NEEDED No current facility-administered medications on file prior [...] ??? Tobacco comment: states is quitting 11/19/2018 Vaping Use ??? Vaping Use: Never used Substance and Sexual Activity ??? Alcohol use: Not Currently Comment: ocassional ??? Drug use: Not Currently Comment: no drugs since 1990 [...] Family History +DM2, thyroid PHYSICAL EXAM: BP 122/59 Pulse 89 Temp 36.2 ??C (97.2 ??F) (Temporal) Ht 165.1 cm (5' 5) Wt 108 kg (238 lb) SpO2 97% BMI 39.61 kg/m?? Appearance: Patient is very pleasant white female, obese, clinically euthyroid, not in acute distress, here with her Skin - normal in texture and temperature HEENT - PERRLA, EOMI, no lid lag or exophthalmos. No hoarseness of voice or stridor. Neck - supple, no goiter or nodule, no lymphadenopathy. Extremities - no pitting edema Neuro - Non-focal. No proximal muscle weakness. Thyroid US at [facility] Radiology (10/22/19) before taking thyroid Rx showed a Rt thyroid nodule of 1.1 cmand the others were < 1 cm with rec to FU in 6 mo. Office Thyroid Ultrasound: 12/06/19 (~6 weeks after taking liothyronine supplement) Indication: Rt thyroid nodule and Delano's thyroiditis - to assess nodule characteristic & may need FNA biopsy if suspicious. Comparison: 10/22/19 US from outside at [facility]. Procedure: Real-time ultrasonography limited to the thyroid gland and lateral neck area with and without color doppler were obtained using a shopa Flex Focus 400 US machine and an HFL38/15-6 broadband linear array transducer. All measurements are given as Longitudinal x Anterior-Posterior (A-P) x Transverse The right lobe measures 3.8x1.3x1.3 cm The left lobe measures 3.4x1.0x0.9 cm Isthmus thickness 0.3 cm (A-P dimension) The overall thyroid gland is slightly heterogeneous with normal vascularity. No goiter. There is a small right mixed thyroid nodule in the lower pole and a few mixed cysts in the right lobe and 2 tiny colloid cysts identified in the left lobe. #1 the right mixed solid/cystic, almost spongiform nodule is measured 1.2x0.7x0.7 cm (was 1.1 cm atoutside report) with colloid crystals floating in the small cystic portions (not micro-calcifications). It has distinct smooth borders and avascular on color doppler with benign appearance. #2 the largest mixed cyst in the right upper pole measured 0.4x0.2x0.3 cm with colloid crystals with entirely benign appearance Impression: Normal thyroid gland size without goiter or suspicious nodule (so there is no need for FNA biopsy today). The 1.2 cm right mixed nodule with colloid crystals appears benign and will monitor the size next year. The small mixed cyst of < 0.4 cm and bilateral tiny colloid cysts of 0.1-0.2 cm are all benign. Rec monitoring thyroid function and will repeat US study after a year. FNA of the mixed nodule is rec'd if it's enlarging in size 1.5-2.0 cm in the future. Marta Rivera MD, PhD, FACE, FACP CARDIAC CATHETERIZATION ??02/07/2020 Left dominant LM: mild LAD: proximal 90% LCx: LPL1 90%, LPDA 80% Ramus: ev mild RCA: mid 100% Stents x3 placed in the LAD, LPA and LPL1 ?? Results for JARRETTDANIELLE COLUNGA ( ) Ref. Range 12/06/2019 12:06 02/07/2020 07:29 Hemoglobin A1C Latest Ref Range: 4.3 - 5.6 % 6.8 (H) => 6.6% on 03/07/21 => 6.8% (04/25/21) Free T4 Latest Ref Range: 0.93 - 1.70 ng/dL 0.80 (L) TSH Latest Ref Range: 0.27 - 4.20 mcIU/mL 1.75 1.30 25-OH Vit D Total Latest Ref Range: 21 - 100 ng/mL 29 Chol, Total Latest Units: mg/dL 186 HDL Latest Units: mg/dL 34 Chol/HDL Ratio Latest Units: ratio 5.5 Triglycerides Latest Units: mg/dL 161 LDL Cholesterol Latest Units: mg/dL 120 Lipid Interpretation Unknown See Note Creatinine Latest Ref Range: 0.70 - 1.20 mg/dL 0.69 (L) DIAGNOSIS: 60 y.o. lady with confirmed Delano's thyroiditis with elevated TPO (182-324) and Tg antibodies (61-63), so there is no need to follow the antibody titers any more as they are only used for the diagnosis which is definite. She has had normal TSH 1.75-2.25 in euthyroid but borderline low FT4 at 0.96 x2 and then low at 0.8 (FT3 would be the last to get low in severe hypothyroid). She is having lots of hypothyroid symptoms and already tried to take low dose thyroid supplement and tolerated the Liothyronine 5 mcg qd but not levothyroxine 25 mcg/day. Since she is very sensitive to thyroid hormone supplement, ok for her to try 0.25-0.5 tab of levothyroxine to keep FT4 up in the normal range andTSH around 1.0 for nodule suppression and weight down. She is quite sensitive to any medication changes with underlying anxiety and depression. It's good news for thyroid US findings at our visit confirmed that there is no need for FNA biopsy at present. She also has severe obesity (BMI >40) with T2DM (A1c 6.8-7.1% on high dose insulin) and metabolic syndrome, recently admitted in late Jan 2020 for TX s/p 3 stents (02/07/20), so we will need to keep TSH 1.0-4.0 range and avoid hyperthyroid for her cardiac issue. In term of diabetes, she responded very well and tolerated victoza pen up to 1.8 mg sc qd without problem and glimiperide 4 mg bid very well without insulin at all (used to take lantus 60-100 units/day prior). She had much better A1c 6.8- 7.1% now. She checked FSBG 1-2d/day and noted low BG 68 once in the afternoon so she can reduced glimiperide 4 mg bid to 6mg/day for now. Target is to keep fasting BG 80-150 range without low to avoid wt gain. She could not tolerate metformin or SGLT2 (Jardiance). We discussed the cardiovascular benefit of victoza pen and we are pleased that she could tolerate it well without the need of insulin any more. She also has untreated BEN (unable to use CPAP due to sinus issue) and feels very fatigue all the time, so some of her daytime fatigue could be related to BEN. PLAN: 1. Medication: Patient will continue taking liothyronine 5 mcg daily without side effect os palpitation at this very low dose. Previously, LT4 made her feel very depressed with more anxiety while T3 (the active short-acting form) seems to help with some of [...] complication of the medication prescribed. Target TSH 1.0-4.0 for her thyroid nodule andcardiac issues. To switch victoza pen 1.8 mg sc daily => ozempic pen 1 mg sc weekly for her T2DM and obesity with lowered cardiovascular outcomes. Ok to continue glimiperide 4 mg 2x/day and allow her to taper to 4-6 mg/day if needed to prevent hypoglycemia. To hole if NPO or low BG<80. Patient will continue all other medications Ideally she should resume using CPAP at night to reduce daytime fatigue for her BEN and to quit smoking completely. 2. To eat low fat/controlled carb and healthy diet as well as exercise as tolerated to keep weight down and be able to cut back on insulin dose further. 3. Lab: already checked lab as above and to recheck lab locally with PCP q 3 mo for A1c and TSH X-ray/Imaging study: Already done Office Thyroid ultrasound for thyroid nodule size after a year atour office by the same head still operator next spring/summer. 4. RTC: 12 mo via Telehealth for her thyroid and T2DM and will make sure that she cont to lose wt with good A1c & TSH further. We have reviewed our plan outlined above with the patient, and patient verbalized understanding. All questions were answered and most of the time 34 mins was spent on counseling about thyroid conditions, medications adjustment, including pros and cons of starting medication, the diagnostic and therapeutic decisions, and coordination of care. Thank you for allowing me to participate in the care of this very pleasant patient. Marta Rivera MD, PhD, FACE, FACP cc: Steven Jeffries MD * Marta Rivera MD - 05/30/2021 9:30 AM EST Images from the original note were not included. Endocrinology Follow-up Note Date of Visit: 05/30/2021 Patient: Name: Danielle Mills : 1960 PCP: Steven Jeffries MD Danielle Mills was seen in the Endocrine clinic in person for: Autoimmune Delano's thyroiditiswith thyroid nodule and will check office US today for the nodule size after 1.5 yrs. She also has type 2 diabetes and weight issues with goal to cut back on insulin and weight down. HISTORY OF PRESENT ILLNESS: Patient is a very pleasant 60 y.o. female who initially presented to us [...] and tapered more after wt loss of 35 lbs as she cut back on carb intake. Target is to keep fasting BG 80-140 range without lowto avoid wt gain. She could not tolerate metformin, byetta or Jardiance with yeast infection. Her last A1c was better down from 8.2 to 7.1% and then 6.6-6.8% at target. She was diagnosed with BEN [...] and occasional difficulty swallowing. Thyroid US at [facility] on 10/22/19 showed a Rt thyroid nodule [...] benign appearing spongiform nodule of about 1 cm. Recent labs: 06/03/19 10/13/19 TSH 2.25 1.75 FT4 0.96 0.96 still borderline low FT3 3.3 4.4 (nl 2.8-5.3) TPO Ab 182H 324H Tg AB 63H 61H Fatigue - Yes, a bit better Weight gain - Yes => better & lost 36 lbs from 274 to 238 lbs on GLP1 which is excellent Intolerance to cold - Yes => better Dry skin - Yes => better in her LEs constipation - Yes => better Menstrual irregularities - No, already menopause (s/p LISA at age 34 in 1994) Muscle and joint pain - Yes Sleep disturbances - Yes, BEN not on CPAP any more for [...] ??? Carpal tunnel syndrome G56.00 ??? Cystocele [id number] ??? Depression, anxiety, insomnia, PTSD F32.A ??? [...] to Visit Medication Sig Dispense Refill ??? Victoza 3-Emanuel 0.6 mg/0.1 mL (18 mg/3 mL) Pen Injector INJECT 1.8 MG SUBCUTANEOUSLY ONCE DAILY 27 mL 1 ??? Dexilant 30 mg Cap, Delayed Rel., Multiphasic Take 1 capsule by mouth once daily 30 capsule 0 ??? glimepiride (AMARYL) 4 mg Tablet TAKE 1 TABLET BY MOUTH TWICE DAILY - DOSE INCREASE 180 tablet 0 ??? Repatha Pushtronex 420 mg/3.5 mL wearable injector INJECT 3.5ML EVERY MONTH BY SUBCUTANEOUS ROUTE FOR 90 DAYS ??? liothyronine (Cytomel) 5 mcg Tablet Take 1 tablet by mouth daily. 90 tablet 3 ??? senna (Senokot) 8.6 mg Tablet Take 2 tablets by mouth daily. 60 tablet 5 ??? GIDEON ROOT, BULK, MISC by Misc.(Non-Drug; Combo Route) route. ??? docusate sodium (Colace) 100 mg Capsule Take 100 mg by mouth 2 times daily. ??? nitroGLYcerin (Nitrostat) 0.4 mg Tablet, Sublingual Place 0.4 mg under the tongue every 5 minutes as needed for Chest pain. ??? Bisacodyl 5 mg Tablet Take 1 tablet by mouth every 3 days. 30 tablet 3 ??? aspirin 81 mg Tablet, Chewable Take 81 mg by mouth daily. 90 tablet 0 ??? clopidogreL (Plavix) 75 mg Tablet Take 1 tablet by mouth daily. 90 tablet 0 ??? losartan (Cozaar) 25 mg Tablet Take 0.5 tablets by mouth daily. 45 tablet 0 ??? metoprolol succinate XL (Toprol-XL) 50 mg Tablet Sustained Release 24 hr Take 1 tablet by mouthdaily. 90 tablet 0 ??? acetaminophen (TYLENOL) 500 mg Tablet Take 1,000 mg by mouth every 6 hours as needed for Pain. ??? sucralfate (CARAFATE) 100 mg/mL Suspension Take 1 g by mouth 4 times daily. PRN ??? amoxicillin (AMOXIL) 500 mg Tablet Take 4 tablets by mouth 1 hour prior to procedure 12 tablet 2 ??? clonazePAM (KLONOPIN) 0.5 mg Tablet Take 0.5 mg by mouth daily. 2 ??? BD ULTRA-FINE ORIG PEN NEEDLE 29 gauge x 1/2 Needle INJECT INSULIN SUBCUTANEOUSLY DIRECTED.3 ??? lansoprazole (PREVACID) 30 mg Capsule, Delayed Release(E.C.) Take 1 capsule by mouth daily. 30 capsule 12 ??? atorvastatin (Lipitor) 80 mg Tablet Take 1 tablet by mouth every evening. (Patient not taking: Reported on 02/12/2021) 90 tablet 3 ??? cyclobenzaprine (Flexeril) 10 mg Tablet TAKE 1 TABLET BY MOUTH AT BEDTIME NEEDED No current facility-administered medications on file prior [...] ??? Tobacco comment: states is quitting 11/19/2018 Vaping Use ??? Vaping Use: Never used Substance and Sexual Activity ??? Alcohol use: Not Currently Comment: ocassional ??? Drug use: Not Currently Comment: no drugs since 1990 [...] Family History +DM2, thyroid PHYSICAL EXAM: BP 122/59 Pulse 89 Temp 36.2 ??C (97.2 ??F) (Temporal) Ht 165.1 cm (5' 5) Wt 108 kg (238 lb) SpO2 97% BMI 39.61 kg/m?? Appearance: Patient is very pleasant white female, obese, clinically euthyroid, not in acute distress Skin - normal in texture and temperature HEENT - PERRLA, EOMI, no lid lag or exophthalmos. No hoarseness of voice or stridor. Neck - supple, no goiter or nodule, no lymphadenopathy. Extremities - no pitting edema Neuro - Non-focal. No proximal muscle weakness. Thyroid US at [facility] Radiology (10/22/19) before taking thyroid Rx showed a Rt thyroid nodule of 1.1 cmand the others were < 1 cm with rec to FU in 6 mo. Office Thyroid Ultrasound: 05/30/2021 Indication: Rt thyroid nodule and Delano's thyroiditis - to assess nodule size after 1.5 yrs Comparison:12/06/19 at our clinic 10/22/19 US from outside at [facility]. Procedure: Real-time ultrasonography limited to the thyroid gland and lateral neck area with and without color doppler were obtained using a shopa Flex Focus 400 US machine and an [...] size >1.5-2.0 cm in the future. Marta Rivera MD, PhD, FACE, FACP DIAGNOSIS: 60 y.o. lady with confirmed Delano's thyroiditis with [...] for nodule suppression and weight down. She tried to eat healthy and responded well to the addition of GLP-1 (victoza -> ozempic pen from today) for her T2DM with wt down 35 lbs over the past 1.5 yrs. Overall she has good BG control andA1c down from 8.2 to 7.1% in October 2019 and now 6.6-6.8% range. She could not tolerate metformin, byetta, SGLT2 (Jardiance) but has not tried glimiperide yet so we tried glimiperide and able to cut back on insulin need. She also has untreated BEN (unable to use CPAP due to sinus issue) and feels very fatigue all the time, so some of her daytime fatigue could be related to BEN. Her dry skin and scalp hair loss could be related to menopause but they could be due to a borderline hypothyroid with a borderline low FT4.Target TSH 0.5-1.5 or around 1.0 and <2.0 for her obesity (BMI 45). She has no cardiovascular disease pr arrhythmia but quite sensitive to any medication changes with underlying anxiety and depression. It's good news for thyroid US findings at our visit today so there is no need for FNA biopsy and the mixed nodules are all small and stable in size up to 1 cm and no need for FNA biopsy. PLAN: 1. Medication: Patient will continue taking [...] her weight and fatigue issues. Ok to switch victoza pen 1.8 mg sc daily to ozempic 1.0 mg weekly for her T2DM and obesity. To cont taking glimiperide 4 mg 2x/day to reduce the insulin need. To hole if NPO or low BG<80. To cont to eat low carb low [...] dose further. 3. Lab: already checked lab recently with PCP for TSH and A1c as above X-ray/Imaging study: Office Thyroid ultrasound for thyroid nodule size after 1.5 year at our officetoday as above (by the same head still operator). 4. RTC: 6-12 mo to assess the effect of thyroid and DM medications and make sure that she can lose wt and cut back on insulin use further. We have reviewed our plan outlined above [...] care of this very pleasant patient. Marta Rivera MD, PhD, FACE, FACP cc: Steven Jeffries MD * Marta Rivera MD - 05/30/2021 9:30 AM EST Office Thyroid Ultrasound: 05/30/2021 Name: Danielle Mills : 1960 PCP: Steven Jeffries MD Indication: Rt thyroid nodule and Delano's thyroiditis - to assess nodule size after 1.5 yrs Comparison:12/06/19 at our clinic 10/22/19 US from outside at [facility]. Procedure: Real-time ultrasonography limited to the thyroid gland and lateral neck area with and without color doppler were obtained using a shopa Flex Focus 400 US machine and an [...] size >1.5-2.0 cm in the future. Marta Rivera MD, PhD, FACE, FACP documented in this encounter Plan of Treatment Not on file documented as of this encounter Visit Diagnoses Diagnosis Type 2 diabetes, controlled, with neuropathy Type II or unspecified type diabetes mellitus with neurological manifestations, not stated as uncontrolled Delano's thyroiditis Chronic lymphocytic thyroiditis Vitamin D deficiency Unspecified vitamin D deficiency Thyroid nodule Nontoxic uninodular goiter documented in this encounter Care Teams Director Of Curriculum Relationship Specialty Start Date End Date Steven Jeffries MD [address] [place] [id number] PCP - General General Internal Medicine 02/12/2101/17 documented as of this encounter
--- OUTSIDE RECORDS SUMMARY | 2023-11-25 15:33 | XMS_ITS | Encounter Summary ---
Author Organization [facility] [place] [address] Care Team Providers Care Materials Technician Name Role Phone Francy Lowe APRN Primary Care Provider + Reason for Visit * Reason Onset Date Comments Medication Refill 12/25/2020 Encounter Details Date Type Department Care Team (Late st Contact Info) Description 12/25/2020 Refill Gastroenterology at [facility] [place] [address] Nimesh Alicia MD [facility] [place] [address] Social History Tobacco Use Types Packs/Day Years [...] on filedocumented in this encounter Care Teams Materials Technician Relationship Specialty Start Date End Date Francy Lowe APRN PCP - General Family Medicine 10/19/19 02/11/21 documented as of this encounter
--- OUTSIDE RECORDS SUMMARY | 2023-11-25 15:33 | XMS_ITS | Encounter Summary ---
Author Organization [facility] [place] [address] Care Team Providers Care Recreation Therapy Teacher Name Role Phone Francy Lowe APRN Primary Care Provider + Encounter Details Date Type Department Care Team (Late st Contact Info) Description 03/08/2020 [place] [phone] Sergio Jasmine Social History Tobacco Use Types Packs/Day Years [...] encounter Miscellaneous Notes * Telephone Encounter - Sergio Jasmine - 03/08/2020 2:23 PM EDT LMOAM X1 to schedule 6 month f/u with Dr. Rivera, with ultrasound. documented in this encounter Plan of Treatment Not on file documented as of this encounter Visit Diagnoses Not on filedocumented in this encounter Care Teams Recreation Therapy Teacher Relationship Specialty Start Date End Date Francy Lowe APRN PCP - General Family Medicine 10/19/19 02/11/21 documented as of this encounter
--- OUTSIDE RECORDS SUMMARY | 2023-11-25 15:33 | XMS_ITS | Encounter Summary ---
[place] [address] Care Team Providers Care Acid Dipper Name Role Phone Francy Lowe APRN Primary Care Provider + Reason for Visit * Reason Onset Date Comments Prior Authorization 08/30/2020 Encounter Details Date Type Department Care Team (Late st Contact Info) Description 08/30/2020 Telephone [place] [address] Lissa Bryant CCMA Prior Authorization Social History Tobacco Use Types Packs/Day Years [...] encounter Miscellaneous Notes * Telephone Encounter - Lissa Bryant CCMA - 08/30/2020 1:46 PM EDT Medication Prior Authorization 4L Gastroenterology / [place] [address] Subscriber Insurance: [employer] BIN:[id number] PCN: [id number] Phone: Fax: Physician: Nimesh Alicia NPI: Return Pharmacy: [facility] Phone: Fax: Medication Requested: Lansoprazole Strength: 30mg Frequency: Take 1 capsule by mouth daily Disp.:30 Refills: 12 Currently taking: Diagnosis for this medication: Gerd with hiatal Hernia ICD-10 code: (K21.9) (K44.9) Prior medications trialed in this patient: Esomeprazole, Omeprazole, Pantoprazole, Sucralfate Medication: Outcome/Adverse Reactions:Treatment Failure Decision: Denied Denial letter states the following: The drug you asked for is non-formulary. Before the drug can becovered, we need more information. Please ask your prescriber to explain to [employer] why the preferred drugs have not worked for your medical condition and/or would have bad side effects. If you have not tried ALL the preferred drugs, including Dexilant capsules. Please try this first. documented in this encounter Plan of Treatment Not on file documented as of this encounter Visit Diagnoses Not on filedocumented in this encounter Care Teams Acid Dipper Relationship Specialty Start Date End Date Francy Lowe APRN PCP - General Family Medicine 10/19/19 02/11/21 documented as of this encounter
--- OUTSIDE RECORDS SUMMARY | 2023-11-25 15:33 | XMS_ITS | Encounter Summary ---
[place] [address] Care Team Providers Care Strategic Alliances Manager Name Role Phone Francy Lowe APRN Primary Care Provider + Encounter Details Date Type Department Care Team (Late st Contact Info) Description 11/23/2020 Telephone [place] [phone] Tanya Mccullough Social History Tobacco Use Types Packs/Day Years [...] on filedocumented in this encounter Care Teams Strategic Alliances Manager Relationship Specialty Start Date End Date Francy Lowe APRN PCP - General Family Medicine 10/19/19 02/11/21 documented as of this encounter
--- OUTSIDE RECORDS SUMMARY | 2023-11-25 15:33 | XMS_ITS | Encounter Summary ---
[place] [address] Care Team Providers Care Agricultural Inspector Name Role Phone Francy Lowe APRN Primary Care Provider + Reason for Visit * Reason Onset Date Comments Follow-up 03/10/2020 tobacco treatmen t Encounter Details Date Type Department Care Team (Late st Contact Info) Description 03/10/2020 Telephone [place] [phone] Arnaud Teague, RN Follow-up (tobacco treatment) Social History Tobacco Use Types Packs/Day Years [...] Telephone Encounter - Arnaud Teague RN - 03/10/2020 11:55 AM EDT DATE: 03/10/2020 NAME: Danielle Mills : 1960 Reason for Call: 1-month follow-up for Tobacco Treatment M Arnaud Teague, MSN, RN-BC, [facility] Tobacco Agile Tester [facility] Pager #[phone] documented in this encounter Plan of Treatment Not on file documented as of this encounter Visit Diagnoses Not on filedocumented in this encounter Care Teams Agricultural Inspector Relationship Specialty Start Date End Date Francy Lowe APRN PCP - General Family Medicine 10/19/19 02/11/21 documented as of this encounter
--- OUTSIDE RECORDS SUMMARY | 2023-11-25 15:33 | XMS_ITS | Encounter Summary ---
Author Organization [facility] [place] [address] Care Team Providers Care Long Winder Tender Name Role Phone Steven Jeffries MD Primary Care Provider [phone] Reason for Visit * Reason Comments Medication Refill Encounter Details Date Type Department Care Team (Late st Contact Info) Description 07/02/2021 Refill Gastroenterology at [facility] [place] [address] Nimesh Alicia MD [facility] [place] [address] Social History Tobacco Use Types Packs/Day Years [...] on filedocumented in this encounter Care Teams Long Winder Tender Relationship Specialty Start Date End Date Steven Jeffries MD [address] [place], [place] [phone] PCP - General General Internal Medicine 02/12/2101/17 documented as of this encounter
--- OUTSIDE RECORDS SUMMARY | 2023-11-25 15:33 | XMS_ITS | Encounter Summary ---
Author Organization [facility] [place] [address] Care Team Providers Care Prototype Fabricator Name Role Phone Steven Jeffries MD Primary Care Provider Reason for Visit * Reason Onset Date Comments Medication Refill 05/30/2021 Encounter Details Date Type Department Care Team (Late st Contact Info) Description 05/30/2021 Refill Gastroenterology at [facility] [place] [address] Nimesh Alicia MD [facility] [place] [address] Social History Tobacco Use Types Packs/Day Years [...] on filedocumented in this encounter Care Teams Prototype Fabricator Relationship Specialty Start Date End Date Steven Jeffries MD [address] [place], [place] [phone] PCP - General General Internal Medicine 02/12/2101/17 documented as of this encounter
--- OUTSIDE RECORDS SUMMARY | 2023-11-25 15:33 | XMS_ITS | Encounter Summary ---
Author Organization [facility] [place] [address] Care Team Providers Care Collarette Separator Name Role Phone Steven Jeffries MD Primary Care Provider [phone] Reason for Visit * Reason Comments Medication Refill Encounter Details Date Type Department Care Team (Late st Contact Info) Description 07/07/2021 [place] [phone] Marta Rivera MD [facility] [place] [address] Type 2 diabetes, controlled, with neuropathy Social [...] uncontrolled documented in this encounter Care Teams Collarette Separator Relationship Specialty Start Date End Date Steven Jeffries MD [address] [facility] [place] [phone] PCP - General General Internal Medicine 02/12/2101/17 documented as of this encounter
--- OUTSIDE RECORDS SUMMARY | 2023-11-25 15:33 | XMS_ITS | Encounter Summary ---
[place] [address] Care Team Providers Care Product Safety Compliance Leader Name Role Phone Francy Lowe APRN Primary Care Provider + Reason for Visit * Reason Onset Date Comments Appointment 11/30/2020 Encounter Details Date Type Department Care Team (Late st Contact Info) Description 11/30/2020 Telephone [place] [phone] Felicita Costa I Appointment Social History Tobacco Use Types Packs/Day Years [...] encounter Miscellaneous Notes * Telephone Encounter - Felicita Norton I - 11/30/2020 1:34 PM EDT Called to schedule an overdue FUV from RX list. documented in this encounter Plan of Treatment Not on file documented as of this encounter Visit Diagnoses Not on filedocumented in this encounter Care Teams Product Safety Compliance Leader Relationship Specialty Start Date End Date Francy Lowe APRN PCP - General Family Medicine 10/19/19 02/11/21 documented as of this encounter
--- OUTSIDE RECORDS SUMMARY | 2023-11-25 15:33 | XMS_ITS | Encounter Summary ---
Author Organization [facility] [place] [address] Care Team Providers Care Mortgage Analyst Name Role Phone Steven Jeffries MD Primary Care Provider Reason for Visit * Reason Onset Date Comments Medication Refill 07/02/2021 Encounter Details Date Type Department Care Team (Late st Contact Info) Description 07/02/2021 Refill Gastroenterology at [facility] [place] [address] Nimesh Alicia MD [facility] [place] [address] Social History Tobacco Use Types Packs/Day Years [...] on filedocumented in this encounter Care Teams Mortgage Analyst Relationship Specialty Start Date End Date Steven Jeffries MD [address] [place], [place] [phone] PCP - General General Internal Medicine 02/12/2101/17 documented as of this encounter
--- OUTSIDE RECORDS SUMMARY | 2023-11-25 15:33 | XMS_ITS | Encounter Summary ---
Author Organization [facility] [place] [address] Care Team Providers Care Windows Infrastructure Engineer Name Role Phone Francy Lowe APRN Primary Care Provider + Encounter Details Date Type Department Care Team (Late st Contact Info) Description 08/29/2020 8:30 AM EDT Office Visit Gastroenterology at [facility] [place] [phone] Nimesh Alicia MD [facility] [place] [address] Constipation, unspecified constipation type Social History Tobacco [...] Sign Reading Time Taken Comments Blood Pressure 116/72 08/29/2020 8:20 AM EDT Pulse 80 08/29/2020 8:20 AM EDT Temperature - - Respiratory Rate - - Oxygen Saturation - - Inhaled Oxygen Concentration - - Weight 106 kg (233 lb 11.2 oz) 08/29/2020 8:20 A M EDT Height 165.1 cm (5' 5) 08/29/2020 8:20 AM EDT Body Mass Index 38.89 08/29/2020 8:20 AM EDT documented in this encounter Progress Notes * Nimesh Alicia MD - 08/29/2020 8:30 AM EDT GI PROBLEM LIST Here in routine follow up No acute issues She has been struggling with chronic constipation. No BM at times for 1-2 weeks, straining, hard stools Take milk of mag as needed Review of Systems: All other systems negative [...] performed by Nimesh Alicia MD at [facility] ENDOSCOPY ??? RECTOCELE REPAIR 2014 Dr. Boo @ [facility] ??? SHOULDER SURGERY Left 06/05/2017 L shoulder AC joint resection and bicep debridement, Dr. Adrien Pedro ??? TOTAL KNEE ARTHROPLASTY 09/2009 Right total knee replacement Procedure Date: September 2009 Social History: reports that she has been smoking cigarettes. She has a 22.50 pack-year smoking history. She has never used smokeless tobacco. She reports previous alcohol use. She reports previous drug use. Family History: family history is not on file. Current Outpatient Medications Medication Sig Dispense Refill ??? GIDEON ROOT, BULK, MISC by Misc.(Non-Drug; Combo Route) route. ??? docusate sodium (Colace) 100 mg Capsule Take 100 mg by mouth 2 times daily. ??? nitroGLYcerin (Nitrostat) 0.4 mg Tablet, Sublingual Place 0.4 mg under the tongue every 5 minutes as needed for Chest pain. ??? isosorbide mononitrate CR (Imdur) 30 mg Tablet Sustained Release 24 hr Take 1 tablet by mouth daily. 30 tablet 11 ??? aspirin 81 mg Tablet, Chewable Take [...] tablet by mouthdaily. 90 tablet 0 ??? pantoprazole EC (Protonix) 40 mg Tablet, Delayed Release (E.C.) Take 1 tablet by mouth daily. 90 tablet 0 ??? atorvastatin (Lipitor) 80 mg Tablet Take 1 tablet by mouth every evening. 90 tablet 3 ??? glimepiride (AMARYL) 4 mg Tablet Take 1 tablet by mouth 2 times daily. 180 tablet 3 ??? liraglutide (VICTOZA) 0.6 mg/0.1 mL (18 mg/3 mL) Pen Injector Inject 1.8 mg subcutaneously daily. 9 Syringe 3 ??? liothyronine (Cytomel) 5 mcg Tablet Take 1 tablet by mouth daily. 90 tablet 3 ??? acetaminophen (TYLENOL) 500 mg Tablet Take 1,000 mg by mouth every 6 hours as needed for Pain. ??? sucralfate (CARAFATE) 100 mg/mL Suspension Take 1 g by mouth 4 times daily. ??? amoxicillin (AMOXIL) 500 mg Tablet Take 4 tablets by mouth 1 hour prior to procedure 12 tablet 2 ??? clonazePAM (KLONOPIN) 0.5 mg Tablet Take 0.5 mg by mouth daily. 2 ??? BD ULTRA-FINE ORIG PEN NEEDLE 29 gauge x 1/2 Needle INJECT INSULIN SUBCUTANEOUSLY DIRECTED.3 ??? cyclobenzaprine (Flexeril) 10 mg Tablet TAKE 1 TABLET BY MOUTH AT BEDTIME NEEDED No current facility-administered medications for this visit. Allergies Allergen Reactions ??? Atorvastatin Other (See Comments) ??? Codeine Other (See Comments) ??? Hydrocodone-Acetaminophen Itching ??? Indomethacin Itching ??? Oxycodone-Acetaminophen Itching ??? Prednisone ??? Rosuvastatin Other (See Comments) Physical Examination: BP 116/72 (BP Location (NBP): Left arm, Patient Position: Sitting, BP Cuff Sizes: Large Adult (32-43 cm)) Pulse 80 Ht 165.1 cm (5' 5) Wt 106 kg (233 lb 11.2 oz) BMI 38.89 kg/m?? Alert and oriented, No acute distress Anicteric, [...] IMPRESSION AND RECOMMENDATIONS: Danielle Mills is a 60 y.o. woman with diabetes here in routine follow up. She has been experiencing worsening constipation, at times not having a bowel movement for1-2 weeks, using milk of magnesia as needed. I counseled her on a bowel regimen, and recommended adding a fiber supplement with senna 2 tabs in the am, miralax 1-2 scoops 1-2 times per day, and bisacodyl every 3 days as needed. Will also schedule a colonoscopy and follow up afterwards. Nimesh Alicia MD CC Francy Lowe APRN [address] [address] No referring provider defined for this encounter. documented in this encounter Plan of Treatment Scheduled Orders Name Type Priority Associated Diagnoses Orde r Schedule ENDOSCOPY CASE REQUEST: COLONOSCOPY, DIAGNOSTIC Procedures Routine Constipation, unspecified constipation type Ordered: 08/29/2020 documented as of this encounter Visit Diagnoses Diagnosis Constipation, unspecified constipation type documented in this encounter Care Teams Windows Infrastructure Engineer Relationship Specialty Start Date End Date Francy Lowe APRN PCP - General Family Medicine 10/19/19 02/11/21 documented as of this encounter
--- OUTSIDE RECORDS SUMMARY | 2023-11-25 15:33 | XMS_ITS | Encounter Summary ---
[facility] [place] [address] Care Team Providers Care Stitch Separator Name Role Phone Francy Lowe APRN Primary Care Provider + Encounter Details Date Type Department Care Team (Late st Contact Info) Description 09/12/2020 [place] [phone] Danielle Kimbrough Social History Tobacco Use Types Packs/Day Years [...] encounter Miscellaneous Notes * Telephone Encounter - Danielle Kimbrough - 09/12/2020 8:19 AM EDT Danielle Mills [id number] Diagnosis/Indication: constipation 1. Have you ever had a/an Colonoscopy before? Yes: Date @ 51 in [place] If yes, did you have any problems with the procedure? No What type of sedation was used: IV Conscious Sedation 2. Do you take any blood thinners or have you been diagnosed with a bleeding disorder that increases your risk of bleeding with procedures? Yes: Type: 75 mg of clopidogreo 3. Do you have a Pacemaker or Defibrillator device? No 4. Are you a diabetic? Yes: Controlled by diet or medication? Both 5. Do you have any Allergies to Eggs, Latex or Medications? Yes: E-DH 6. Do you take any Oral Iron Supplements (Including multi-vitamins)? No 7. Do you have a history of three or more abdominal surgeries? No 8. Have you had a problem with sedation or anesthesia? No 9. Do you use a c-pap machine or oxygen tank? Neither but having sleep study 10. Do you take prescription narcotic pain medications, including suboxone or methodone? No 11. Do you have a preference regarding the gender of your provider? Yes: Male Ravin 12. Is there any other information you would like to us to note for the provider and nursing team who will perform your case? Yes: can lay on left side longer than right 13. Say to patient: You must have a responsible republican who will drive you to your procedure, stay [place] for the entire duration of your procedure, and drive you home from your procedure? *Please Verify the height and weight, and adjust if height and/or weight have changed* Estimated body mass index is 38.89 kg/m?? as calculated from the following: Height as of 08/29/20: 165.1 cm (5' 5). Weight as of 08/29/20: 106 kg (233 lb 11.2 oz). Age:60 y.o. documented in this encounter Plan of Treatment Not on file documented as of this encounter Visit Diagnoses Not on filedocumented in this encounter Care Teams Stitch Separator Relationship Specialty Start Date End Date Francy Lowe APRN PCP - General Family Medicine 10/19/19 02/11/21 documented as of this encounter
--- OUTSIDE RECORDS SUMMARY | 2023-11-25 15:33 | XMS_ITS | Encounter Summary ---
Author Organization [facility] [place] [address] Care Team Providers Care State'S Attorney Name Role Phone Francy Lowe APRN Primary Care Provider + Encounter Details Date Type Department Care Team (Latest Contact Info) Description 03/07/2020 10:00 AM EDT TH Visit (TeleHealth) Endocrinology at [place] [phone] Marta Rivera MD [facility] 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, Tg 63 with normal TSH 1.75-2.25); NSTEMI (non-ST elevated myocardial infarction); Adult BMI 40.0-44.9 kg/sq m; Controlled type 2 diabetes mellitus with diabetic neuropathy, without long-term current use of insulin Social History Tobacco Use Types Packs/Day Years [...] Sign Reading Time Taken Comments Blood Pressure 120/80 03/07/2020 10:10 AM EDT Pulse 70 03/07/2020 10:10 AM EDT Temperature - - Respiratory Rate 14 03/07/2020 10:10 AM EDT Oxygen Saturation - - Inhaled Oxygen Concentration - - Weight 113.4 kg (250 lb) 03/07/2020 10:10 AM EDT Height 165.1 cm (5' 5) 03/07/2020 10:10 AM EDT Body Mass Index 41.6 03/07/2020 10:10 AM EDT documented in this encounter Patient Instructions * Patient Instructions* Marta Rivera MD - 03/07/2020 10:00 AM EDT PLAN: 1. Medication: Patient [...] for her thyroid nodule andcardiac issues. To cont victoza pen 1.8 mg sc daily for her T2DM and obesity. Ok to taper glimiperide 4 mg 2x/day to 2 mg qAM and 4 mg qPM or vice versa (total 6 mg/day) to prevent hypoglycemia. To hole if NPO [...] dose further. 3. Lab: already checked lab at recent hopsitalization as above and to recheck lab locally with PCP q 3 mo for A1c and TSH X-ray/Imaging study: Office Thyroid ultrasound for thyroid nodule size after a year at our office by the same outboard motorboat operator next spring/summer. 4. RTC: 6-9 mo with neck ultrasound for annual visit of her hypothyroid with nodules, T2DM and makesure that she cont to lose wt with good A1c & TSH further. Results for DANIELLE FARIAS ( ) Ref. Range 12/06/2019 12:06 02/07/2020 07:29 Hemoglobin A1C Latest Ref Range: 4.3 - 5.6 % 6.8 (H) Free T4 Latest Ref Range: 0.93 - [...] Range: 0.70 - 1.20 mg/dL 0.69 (L) documented in this encounter Progress Notes * Marta Rivera MD - 03/07/2020 10:00 AM EDT Images from the original note were not included. Endocrinology Follow-up Note Date of Visit: 03/07/2020 Patient: Name: Danielle Farias : 1960 PCP: Francy Lowe APRN Reason for follow-up: Delano's thyroiditis with thyroid nodule, obesity with T2DM (A1c 6.8-7.1% recently off high dose insulin and tolerated victoza and glimiperide) and metabolic syndrome, recently admitted in late Jan 2020 for FL s/p 3 stents (02/07/20) Patient verbally consents to this telephone visit and understands that this visit may be billed, similar to a clinic office visit. I provided care to the patient today via telephone call. The total time associated with this visit was 30 minutes. HISTORY OF PRESENT ILLNESS: Danielle Farias is a very pleasant 59 y.o. female who initially presented to us [...] to BEN. She recently admitted due to FL s/p 3 stents for her 3vss CAD with summary as shown below: Hospital Course during 02/06-02/09/20: #NSTEMI s/p PCI with JEANETH to LAD, LPA and LPL1 Admitted to the cardiology service. The patient was taken to the metallurgical lab technician and noted to have 3 vessel disease. [...] and occasional difficulty swallowing. Thyroid US at [facility] on 10/22/19 showed a Rt thyroid nodule [...] ??? Carpal tunnel syndrome G56.00 ??? Cystocele NHQ2988 ??? Depression, anxiety, insomnia, PTSD F32.9 ??? Edema R60.9 ??? Nicotine dependence, uncomplicated [...] ??? NSTEMI (non-ST elevated myocardial infarction) I21.4 Allergy Allergies Allergen Reactions ??? Atorvastatin Other (See Comments) ??? Codeine Other (See Comments) ??? Hydrocodone-Acetaminophen Itching ??? Indomethacin Itching ??? Oxycodone-Acetaminophen Itching ??? Prednisone ??? Rosuvastatin Other (See Comments) Current Medication Current Outpatient Medications on File Prior to Visit Medication Sig Dispense Refill ??? aspirin 81 mg Tablet, Chewable Take [...] by mouth daily. 90 tablet 3 ??? cyclobenzaprine (Flexeril) 10 [...] INSULIN SUBCUTANEOUSLY DIRECTED.3 No current facility-administered medications on file prior to visit. Social History Social History Socioeconomic History ??? Marital status: Spouse name: Not on file ??? Number of children: Not on file ??? Years of education: Not on file ??? Highest education level: Not on file Occupational History ??? Not on file Social Needs ??? Financial resource strain: Not on file ??? Food insecurity Worry: Not on file Inability: Not on file ??? Transportation needs Medical: Not on file Non-medical: Not on file Tobacco Use ??? Smoking status: Current Every Day Smoker Packs/day: 1.00 Years: 45.00 Pack years: 45.00 Types: Cigarettes ??? Smokeless tobacco: Never Used ??? Tobacco comment: states is quitting 11/19/2018 Substance and Sexual Activity ??? Alcohol use: Not Currently Frequency: Never Comment: ocassional ??? Drug use: Not Currently Comment: no drugs since 1990 no IV drug use ??? Sexual activity: Not on file Lifestyle ??? Physical activity Days per week: Not on file Minutes per session: Not on file ??? Stress: Not on file Relationships ??? Social connections Talks on phone: Not on file Gets together: Not on file Attends yarsani service: Not on file Active member of club or organization: Not on file Attends meetings of clubs or organizations: Not on file Relationship status: Not on file ??? Intimate partner violence Fear of current or ex partner: Not on file Emotionally abused: Not on file Physically abused: Not on file Forced sexual activity: Not on file Other Topics Concern ??? Not on file Social History Narrative ??? Not on file Family History +DM2, thyroid PHYSICAL EXAM: There were no vitals taken for this visit. Appearance: Patient is very pleasant white female, obese, clinically euthyroid, not in acute distress, here with her Skin - normal in texture and temperature HEENT - PERRLA, EOMI, no lid lag or exophthalmos. No hoarseness of voice or stridor. Neck - supple, no goiter or nodule, no lymphadenopathy. Extremities - no pitting edema Neuro - Non-focal. No proximal muscle weakness. Thyroid US at [facility] Radiology (10/22/19) before taking thyroid Rx showed a Rt thyroid nodule of 1.1 cmand the others were < 1 cm with rec to FU in 6 mo. Office Thyrid Ultrasound: 12/06/19 (~6 weeks after taking liothyronine supplement) Indication: Rt thyroid nodule and Delano's thyroiditis - to assess nodule characteristic & may need FNA biopsy if suspicious. Comparison: 10/22/19 US from outside at [facility]. Procedure: Real-time ultrasonography limited to the thyroid gland and lateral neck area with and without color doppler were obtained using a [employer] Focus 400 US machine and an [id number] [...] FACE, FACP CARDIAC CATHETERIZATION ??02/07/2020 Left dominant ?? LM: mild LAD: proximal 90% LCx: LPL1 90%, LPDA 80% Ramus: ev mild RCA: mid 100% ?? Stents x3 placed in the LAD, LPA and LPL1 ?? Results for DANIELLE FARIAS ( ) Ref. Range 12/06/2019 12:06 02/07/2020 07:29 Hemoglobin A1C Latest Ref Range: 4.3 - 5.6 % 6.8 (H) Free T4 Latest Ref Range: 0.93 - [...] 0.70 - 1.20 mg/dL 0.69 (L) DIAGNOSIS: 59 y.o. lady with confirmed Delano's thyroiditis with [...] recently admitted in late Jan 2020 for FL s/p 3 stents (02/07/20), so we will [...] for her thyroid nodule andcardiac issues. To cont victoza pen 1.8 mg sc daily for her T2DM and obesity. Ok to taper glimiperide 4 mg 2x/day to 2 mg qAM and 4 mg qPM or vice versa (total 6 mg/day) to prevent hypoglycemia. To hole if NPO [...] dose further. 3. Lab: already checked lab at recent hopsitalization as above and to recheck lab locally with PCP q 3 mo for A1c and TSH X-ray/Imaging study: Office Thyroid ultrasound for thyroid nodule size after a year at our office by the same outboard motorboat operator next spring/summer. 4. 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
--- OUTSIDE RECORDS SUMMARY | 2023-11-25 15:33 | XMS_ITS | Encounter Summary ---
Author Organization [facility] [place] [address] Care Team Providers Care Shuttler Car Name Role Phone Farncy Lowe APRN Primary Care Provider + Encounter Details Date Type Department Care Team (Late st Contact Info) Description 09/04/2020 Orders Only Gastroenterology at [facility] [place] [address] Nimesh Alicia MD [place] [address] Social History Tobacco Use Types Packs/Day Years [...] on filedocumented in this encounter Care Teams Shuttler Car Relationship Specialty Start Date End Date Francy Lowe APRN PCP - General Family Medicine 10/19/19 02/11/21 documented as of this encounter
--- OUTSIDE RECORDS SUMMARY | 2023-11-25 15:33 | XMS_ITS | Encounter Summary ---
Author Organization [facility] [place] [address] Care Team Providers Care Obstetrical Anesthesiologist Name Role Phone Steven Jeffries MD Primary Care Provider [phone] Reason for Visit * Reason Comments Medication Refill Encounter Details Date Type Department Care Team (Late st Contact Info) Description 04/11/2021 Ref[place] [phone] Marta Rivera MD [facility] [place] [address] Type 2 diabetes, controlled, with neuropathy Social [...] uncontrolled documented in this encounter Care Teams Obstetrical Anesthesiologist Relationship Specialty Start Date End Date Steven Jeffries MD [address] [facility] [place] [phone] PCP - General General Internal Medicine 02/12/2101/17 documented as of this encounter
--- OUTSIDE RECORDS SUMMARY | 2023-11-25 15:33 | XMS_ITS | Encounter Summary ---
Author Organization [facility] [place] [address] Care Team Providers Care Senior Analysis Specialist Name Role Phone Francy Lowe APRN Primary Care Provider + Reason for Visit * Reason Comments Medication Refill Encounter Details Date Type Department Care Team (Late st Contact Info) Description 09/30/2020 [place] [phone] Marta Rivera MD [facility] [address] [place] [address] Social History Tobacco Use Types Packs/Day Years [...] encounter Miscellaneous Notes * Telephone Encounter - Brooke Saleem LPN - 10/02/2020 8:35 AM EDT Requested Prescriptions Pending Prescriptions Disp Refills ??? liothyronine (Cytomel) 5 mcg Tablet [Pharmacy Med Name: Liothyronine Sodium 5 MCG Oral Tablet] 90 tablet 0 Sig: Take 1 tablet by mouth once daily Last office visit: 03/07/2020 Last refill: 11/01/2019 Brooke saleem LPN documented in this encounter Plan of Treatment Not on file documented as of this encounter Visit Diagnoses Not on filedocumented in this encounter Care Teams Senior Analysis Specialist Relationship Specialty Start Date End Date Francy Lowe APRN PCP - General Family Medicine 10/19/19 02/11/21 documented as of this encounter
--- OUTSIDE RECORDS SUMMARY | 2023-11-25 15:34 | XMS_ITS | Encounter Summary ---
Author Organization Formerly [facility] [place] [address] Care Team Providers Care Cultural Centre Manager Name Role Phone Farncy Lowe APRN Primary Care Provider + Reason for Referral * Consultation (Routine) - Specialty Diagnoses / Procedures Referred By Jasson mendoza Referred To Contact Cardiac Rehabilitation Diagnoses Non-ST elevation myocardial infarction (NSTEMI) Rell Gutierrez MD [facility] [place] [address] Cardiac Rehab, [address] [place] [address] Referral ID Status Reason Start Date Expiration Date V isits Requested Visits Authorized [id number] Consult, Test & Treat 02/09/2020 08/07/2020 36 36 Reason for Visit * Auth/Cert Specialty Diagnoses / Procedures Referred By Jasson t Referred To Contact Diagnoses NSTEMI (non-ST elevated myocardial infarction) nstemi Referral ID Status Reason Start Date Expiration Date Visits Re quested Visits Authorized [id number] 1 1 Encounter Details Date Type Department Care Team (Latest Contact Info) Description 02/07/2020 6:06 AM EDT - 02/09/2020 12:30 PM EDT Hospital [place] [address] Rell Gutierrez MD [facility] [place] [address] Non-ST elevation myocardial infarction (NSTEMI) Discharge Disposition: Home Social History Tobacco Use Types Packs/Day Years Used Date Smoking Tobacco: Every Day Cigarettes 1 45 Smokeless Tobacco: Never Tobacco Cessation:Ready to Q uit: Yes Comments:states is quitting 11/19/2018 Alcohol Use Standard [...] Sign Reading Time Taken Comments Blood Pressure 101/63 02/09/2020 8:06 AM EDT Pulse 69 02/09/2020 8:06 AM EDT Temperature 36.9 ??C (98.4 ??F) 02/09/2020 4:00 AM ED T Respiratory Rate 17 02/09/2020 8:06 AM EDT Oxygen Saturation 95% 02/09/2020 8:06 AM EDT Inhaled Oxygen Concentration - - Weight 116.2 kg (256 lb 3.2 oz) 02/09/2020 6:00 AM EDT Height 165.1 cm (5' 5) 02/07/2020 6:18 AM EDT Body Mass Index 42.63 02/07/2020 6:18 AM EDT documented in this encounter Discharge Summaries * Maria Bolaños MD - 02/09/2020 12:14 PM EDT Discharge Summary Patient Name: Danielle Mills Patient Age: 59 y.o. Language: Syriac Race: White Ethnicity: Not nor Admit date: 02/07/2020 Discharge date and time: 02/09/20 Attending Physician: Rell Gutierrez MD Discharge Physician: Rell Gutierrez MD Follow-up Recommendations for Providers: -DAPT therapy for at least 1 year, ASA and plavix -GDMT of metoprolol succinate 50mg daily and losartan 12.5 mg Discharge Diagnoses (Hospital Problems) and Secondary Diagnoses (Chronic Problems): Active Hospital Problems Diagnosis ??? 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 Non-ST elevation myocardial infarction (NSTEMI) ??? NSTEMI (non-ST elevated myocardial infarction) ??? Depression, anxiety, insomnia, PTSD ??? Gastroesophageal reflux disease with hiatal hernia ??? Type 2 diabetes mellitus ??? HLD (hyperlipidemia) Resolved Hospital Problems No resolved problems to display. Active Non-Hospital Problems Diagnosis ??? BEN (obstructive sleep apnea) ??? HAMMONDS (nonalcoholic steatohepatitis) ??? Adult BMI 45.0-49.9 kg/sq m ??? Chronic bilateral low back pain with right-sided sciatica ??? Benign lipomatous neoplasm ??? Cystocele ??? Edema ??? Nicotine dependence, uncomplicated ??? Onychomycosis of toenail ??? Osteoarthritis of hip ??? Spinal stenosis of cervical region ??? Carpal tunnel syndrome Operations/Major Procedures: Operations: Procedure(s): CARDIAC CATHETERIZATION 02/07/2020 Procedure(s): CARDIAC CATHETERIZATION 02/07/2020 Left dominant ?? LM: mild LAD: proximal 90% LCx: LPL1 90%, LPDA 80% Ramus: ev mild RCA: mid 100% ?? Stent placed in the LAD, LPA and LPL1 History of Presentation: 59 y/o F with HTN, DM, dyslipidemia, hypothyroidism, obesity/BEN was transferred from [facility] for NSTEMI. ?? Pt reports 1 week of epigastric crushing pain that initially thought was her GERD since worsened with food and drinking. Has been to the ED atleast 4 times with negative w/u that included EKGs. ?? Since yesterday the pain has migrated up to more substernal location. Its worsened with lying and relieved with NTG. Report associated dyspnea and orthopnea. Some nausea but no vomiting. No diaphoresis. No fever, cough, leg swelling. No palpitations. ?? At [facility] starting 9 pm, VSS stable 113/73 HR 85 bpm, RR 19 Questionable CLEMENTINA in V1-V2. Troponin 0.24, lipase 117 CT abdomen/plevis reportedly unremarkable. Pt is s/p CCY She received 4mg IV morphine , Zofran She was started on Heparin and NTG drip. Received ASA 324mg @ 1:32 am at [facility] Plavix 300mg @ 1:55am and then 300mg @2:21am. Consulted with Cards fellow at [facility] and decided to transfer. Hospital Course: #NSTEMI s/p PCI with JEANETH to LAD, LPA and LPL1 Admitted to the cardiology service. 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 [...] with no issues.She was asymptomatic at discharge. Vital Signs at Discharge: BP: 101/63, Heart Rate: 69, Temp: 36.9 ??C (98.4 ??F), Resp: 17, BMI (Calculated): 43.1 Height: 165.1 cm (5' 5) (02/07/20 0618) Weight: 116.2 kg (256 lb 3.2 oz) (02/09/20 0600) Functional and Cognitive Status: Functionally and cognitively intact Admission Diagnoses: NSTEMI (non-ST elevated myocardial infarction) [I21.4] Discharge Diagnoses: NSTEMI with 3VD s/p 3 JEANETH Admission Condition: fair Consults: cardiology Important Studies and Lab Data: Labs: Last wbc, hgb, hct plt Recent Labs 02/09/20 0334 WBC 7.8 HGB 13.5 HCT 42.8 Last 3 Lytes Recent Labs 02/09/20 0334 02/08/20 0401 02/07/20205402/07/20 0729 NA 138 138 -- -- 139 K 3.8 4.4 3.7 < > 4.1 CL 100 102 -- -- 105 CO2 29 27 -- -- 21* BUN 12 8 -- -- 7* CREATININE 0.78 0.66* -- -- 0.69* < > = values in this interval not displayed. Last 3 ProBNP, Trop, CK Recent Labs 02/07/20 1710 02/07/20 1055 02/07/20 0729 TROPONINT 0.27* 0.13* 0.10* PROBNP -- -- 893* Last 3 Lipids Recent Labs 02/07/20 0729 CHLPL 186 HDL 34 LDLCHOL 120 TRIG 161 Last 3 HgbA1C Recent Labs 02/07/20 0729 HA1C 6.8* Studies: TTE 02/07/2020 SUMMARY: ?? 1. The left ventricular chamber size is [...] and function. 4. No significant valvular abnormalities. 5. Other details as noted below. Cath 02/07/2020: Hemodynamics: Left Heart Pressures Resting: Syst Diast EDP a v m Ao 135 74 88 Coronary Angiography: Dominance: Left Left Main There was mild [...] 5%. The final DENIA flow was 3. Discharge Exam: Gen: Pleasant female in NAD HEENT: MMM CV: RRR, s1/s2 of nl character and amplitude, no m/r/g Resp: CTAB, normal WOB on room air Abd: Nondistended, soft, NT, NABS Ext: WWP, 2+ dp/pt pulses, no LE edema Neuro: Alert and responsive without focal deficit Discharge Conditions/Prognosis: good Discharge to: home Updated Allergies/ADRs: Allergies Allergen Reactions ??? Atorvastatin Other (See Comments) ??? Codeine Other (See Comments) ??? Hydrocodone-Acetaminophen Itching ??? Indomethacin Itching ??? Oxycodone-Acetaminophen Itching ??? Prednisone ??? Rosuvastatin Other (See Comments) Immunizations Given this Hospitalization: Immunization History Administered Date(s) Administered ??? Influenza Vaccine PF, Quadrivalent 02/09/2020 Discharge Medications: Your Medications New Medications Dose Details aspirin 81 mg Chew Take 81 mg by mouth daily. Start taking on: February 10, 2020 81 mg Quantity: 90 tablet Refills: 0 atorvastatin 80 mg Tab Commonly known as: Lipitor Take 1 tablet by mouth every evening. 80 mg Quantity: 90 tablet Refills: 3 clopidogreL 75 mg Tab Commonly known as: Plavix Take 1 tablet by mouth daily. Start taking on: February 10, 2020 75 mg Quantity: 90 tablet Refills: 0 losartan 25 mg Tab Commonly known as: Cozaar Take 0.5 tablets by mouth daily. Start taking on: February 10, 2020 12.5 mg Quantity: 45 tablet Refills: 0 metoprolol succinate XL 50 mg Tablet sr Commonly known as: Toprol-XL Take 1 tablet by mouth daily. 50 mg Quantity: 90 tablet Refills: 0 pantoprazole EC 40 mg Tbec Commonly known as: Protonix Take 1 tablet by mouth daily. Start taking on: February 10, 2020 Replaces: omeprazole 40 mg Cpdr 40 mg Quantity: 90 tablet Refills: 0 Continued medications, unchanged Dose Details acetaminophen 500 mg Tab Commonly known as: Tylenol Take 1,000 mg by mouth every 6 hours as needed for Pain. 1,000 mg Refills: 0 amoxicillin 500 mg Tab Commonly known as: AMOXIL Take 4 tablets by mouth 1 hour prior to procedure Quantity: 12 tablet Refills: 2 BD Ultra-Fine Orig Pen Needle 29 gauge x 1/2 Ndle INJECT INSULIN SUBCUTANEOUSLY DIRECTED. Generic drug: insulin needles (disposable) Refills: 3 clonazePAM 0.5 mg Tab Commonly known as: KlonoPIN Take 0.5 mg by mouth daily. 0.5 mg Refills: 2 cyclobenzaprine 10 mg Tab Commonly known as: Flexeril TAKE 1 TABLET BY MOUTH AT BEDTIME NEEDED Refills: 0 glimepiride 4 mg Tab Commonly known as: AMARYL Take 1 tablet by mouth 2 times daily. 4 mg Quantity: 180 tablet Refills: 3 liothyronine 5 mcg Tab Commonly known as: Cytomel Take 1 tablet by mouth daily. 5 mcg Quantity: 90 tablet Refills: 3 liraglutide 0.6 mg/0.1 mL (18 mg/3 mL) Pnij Commonly known as: VICTOZA Inject 1.8 mg subcutaneously daily. 1.8 mg Quantity: 9 Syringe Refills: 3 sucralfate 100 mg/mL Susp Commonly known as: Carafate Take 1 g by mouth 4 times daily. 1 g Refills: 0 STOPPED Medications esomeprazole 40 mg Cpdr Commonly known as: NexIUM Ibuprofen 200 mg Cap omeprazole 40 mg Cpdr Commonly known as: PriLOSEC Replaced by: pantoprazole EC 40 mg Tbec Smoking Status at Discharge: Social History Tobacco Use Smoking Status Current Every Day Smoker ??? Packs/day: 1.00 ??? Years: 45.00 ??? Pack years: 45.00 ??? Types: Cigarettes Smokeless Tobacco Never Used Tobacco Comment states is quitting 11/19/2018 Instructions Given to Patient at Discharge: Patient Instructions Patient Instructions on Discharge to Home Why you were hospitalized: You had a heart attack, which was caused by a blockage in one of your heart arteries. This was fixed with a stent that was placed during a cardiac catheretization. Please continue to take your diabetes medications as you were taking them prior to your hospitalization. Please continue to take your me dications as they are prescribed. Call your doctor if your right groin or wrist pain gets worse, or you develop swelling or redness in that area. Also, call your doctor if you develop sudden chest pain or shortness of breath, especially chest pain that does not go away with nitroglycerin. It is important that you take your aspirin 81mg daily forever and clopidogrel 75mg daily for at least 1 year. Do not miss any doses of these medications! New Medications: Aspirin: this is a platelet inhibitor that will help prevent clot build up in your arteries, as well as in the stent that was placed. Continue taking 81mg daily indefinitely. Clopidogrel (plavix): this is a second platelet inhibitor that will help prevent clot build up in the stent that was placed. It is very important that you take this medication every day at least forone year to help keep your stent open. Follow up with your doctor before stopping this medication. Metoprolol (toprol): this is a beta fernando, that helps protect your heart. Take this every day. Lisinopril: this is an OFE inhibitor that also helps protect your heart, as well as help control your blood pressure. Take this every day. Nitroglycerin: this is a medication that can be placed under your tongue as needed for chest pain. If you experience chest pain, especially that similar to what you had before you were admitted to the hospital, sit down and place one tab under your tongue (it may make you dizzy, so sitting down before taking this is safest). If your chest pain does not improve, call your doctor. Pantoprazole: this is a proton pump inhibitor that protects your stomach from irritation and bleeding that may occur which you are taking two platelet inhibitors. It is recommended you continue to take this medication at least as long as you are taking aspirin and clopidogrel together. When to call your doctor: - Chest pain, worsening shortness of breath, fatigue with usual exertion, or new rest/night time symptoms. - Weigh yourself daily and record; if you note an increase of more than 2-3 pounds in 2 days, or 5 pounds over a week, contact your health care provider. - If you become short of breath, cannot lie down to sleep, or have swelling in your legs/ankles or abdomen, contact your health care provider. - Call if you have reduced urination during the day or increased urination at night. - Call for signs of increased wound drainage, redness, swelling, or increased pain at the site of your cardiac cath. - Call if you develop a temp >100.5 If you have non-emergent questions between now and the time of your follow up appointments: During 8am-5pm Friday through Friday call [phone] to speak with a nurse in the cardiology clinic All other times call [phone] and ask to speak to the insurance healthcare representative teamcenter consultant. Follow up Appointments: ?? [facility] on Friday02/21/20 @ 2:30pm Dr. Carlos Jenkins ([facility] Cardiology) on 03/02/20 @ 2:45pm Future Appointments Date Time Provider Department Center 03/07/2020 10:00 AM Marta Rivera MD [facility] ENDO [facility] PCP: Francy Lowe APRN at [phone] Your Inpatient Doctor(s) at [facility]: Rell Gutierrez MD - Attending physician Your Primary Care Provider: Francy Lowe APRN [address] / [place] [address] For questions regarding issues relating to your hospitalization on the Hospital Medicine Service, please contact your inpatient physician through the [facility] Real Estate Office Manager [phone]. Issues after hours and on weekends will be handled by the Hospitalist staff on-call. General Instructions None Future Appointments and Orders Future Appointments and Orders Future Appointments Provider Department Dept Phone 03/07/2020 10:00 AM Marta Rivera MD Endocrinology at [facility] Arrive at: Home [phone] Please do not come in for this visit. Your provider will call you at the number you provided. Future Orders Complete By Expires Referral to Cardiac Rehab [[id number] Custom] As directed Process Instructions: If no progress note charted, please enter Clinical details in comments. Scheduling Instructions: Questions: My question or request is: NSTEMI, PCI- CR at [facility] Discharge References/Attachments None documented in this encounter Discharge Instructions * Patient Instructions* Kayleigh Crook - 02/09/2020 8:59 AM EDT Patient Instructions on Discharge to Home Why you were hospitalized: You had a heart attack, which was caused by a blockage in one of your heart arteries. This was fixed with a stent that was placed during a cardiac catheretization. Please continue to take your diabetes medications as you were taking them prior to your hospitalization. Please continue to take your me dications as they are prescribed. Call your doctor if your right groin or wrist pain gets worse, or you develop swelling or redness in that area. Also, call your doctor if you develop sudden chest pain or shortness of breath, especially chest pain that does not go away with nitroglycerin. It is important that you take your aspirin 81mg daily forever and clopidogrel 75mg daily for at least 1 year. Do not miss any doses of these medications! New Medications: Aspirin: this is a platelet inhibitor that will help prevent clot build up in your arteries, as well as in the stent that was placed. Continue taking 81mg daily indefinitely. Clopidogrel (plavix): this is a second platelet inhibitor that will help prevent clot build up in the stent that was placed. It is very important that you take this medication every day at least forone year to help keep your stent open. Follow up with your doctor before stopping this medication. Metoprolol (toprol): this is a beta fernando, that helps protect your heart. Take this every day. Lisinopril: this is an OFE inhibitor that also helps protect your heart, as well as help control your blood pressure. Take this every day. Nitroglycerin: this is a medication that can be placed under your tongue as needed for chest pain. If you experience chest pain, especially that similar to what you had before you were admitted to the hospital, sit down and place one tab under your tongue (it may make you dizzy, so sitting down before taking this is safest). If your chest pain does not improve, call your doctor. Pantoprazole: this is a proton pump inhibitor that protects your stomach from irritation and bleeding that may occur which you are taking two platelet inhibitors. It is recommended you continue to take this medication at least as long as you are taking aspirin and clopidogrel together. When to call your doctor: - Chest pain, worsening shortness of breath, fatigue with usual exertion, or new rest/night time symptoms. - Weigh yourself daily and record; if you note an increase of more than 2-3 pounds in 2 days, or 5 pounds over a week, contact your health care provider. - If you become short of breath, cannot lie down to sleep, or have swelling in your legs/ankles or abdomen, contact your health care provider. - Call if you have reduced urination during the day or increased urination at night. - Call for signs of increased wound drainage, redness, swelling, or increased pain at the site of your cardiac cath. - Call if you develop a temp >100.5 If you have non-emergent questions between now and the time of your follow up appointments: During 8am-5pm Friday through Friday call [phone] to speak with a nurse in the cardiology clinic All other times call [phone] and ask to speak to the insurance healthcare representative teamcenter consultant. Follow up Appointments: ?? [facility] on Friday02/21/20 @ 2:30pm Dr. Carlos Jenkins ([facility]) on 03/02/20 @ 2:45pm Future Appointments Date Time Provider Department Center 03/07/2020 10:00 AM Marta Rivera MD [facility] ENDO [facility] PCP: Francy Lowe APRN at [phone] Your Inpatient Doctor(s) at [facility]: Rell Gutierrez MD - Attending physician Your Primary Care Provider: Francy Lowe APRN [address] / [place] [address] For questions regarding issues relating to your hospitalization on the Hospital Medicine Service, please contact your inpatient physician through the [facility] Real Estate Office Manager [phone]. Issues after hours and on weekends will be handled by the Hospitalist staff on-call. documented in this encounter Medications at Time of Discharge Medication Sig Dispensed Refills Start Date End Date aspirin 81 mg Tablet, Chewable Take 81 [...] 0.5 mg by mouth daily. 2 02/26/2018 clopidogreL (Plavix) 75 mg Tablet Take 1 tablet by mouth daily. 90 tablet 02/10/2020 01/29/2022 losartan (Cozaar) 25 mg Tablet Take 0.5 tablets by mouth daily. 45 tablet 02/10/2020 09/04/2022 metoprolol succinate XL (Toprol-XL) 50 mg Tablet Sustained Release 24 hr Take 1 tablet by mouth daily. 90 tablet 02/09/2020 09/04/2022 pantoprazole EC (Protonix) 40 mg Tablet, Delayed Release (E.C.) Take 1 tablet by mouth daily. 90 tablet 02/10/2020 08/29/2020 atorvastatin (Lipitor) 80 mg Tablet Take 1 tablet by mouth every evening. 90 tablet 3 02/09/2020 01/29/2022 glimepiride (AMARYL) 4 mg TabletIndications:Ty pe 2 diabetes, controlled, with neuropathy Take 1 tablet by mouth 2 times daily. 180 tablet 3 12/09/2019 01/08/2021 liraglutide (VICTOZA) 0.6 mg/0.1 mL (18 mg/3 mL) Pen InjectorIndications: Type 2 diabetes, controlled, with neuropathy Inject 1.8 mg subcutaneously daily. 9 Syringe 3 12/06/2019 08/29/2020 liothyronine (Cytomel) 5 mcg Tablet Take 1 tablet by mouth daily. 90 tablet 3 11/01/2019 10/02/2020 cyclobenzaprine (Flexeril) 10 mg Tablet TAKE 1 TABLET BY MOUTH AT BEDTIME NEEDED 09/05/2019 08/09/2022 sucralfate (CARAFATE) 100 mg/mL Suspension Take 1 g by mouth 4 times daily. PRN 01/29/2022 BD ULTRA-FINE ORIG PEN NEEDLE 29 gauge x 1/2 Needle INJECT INSULIN SUBCUTANEOUSLY DIRECTED. 3 10/17/2017 11/03/2023 documented as of this encounter Progress Notes * Clarisa Rees, RN - 02/09/2020 12:21 PM EDT CARE MANAGEMENT DISCHARGE NOTE Chart reviewed, care reviewed with primary team and at interdisciplinary rounds. Patient is medically ready for discharge to home. Needs for Transition of Care: Services Anticipated at Discharge: none Transportation: Transportation Available: family or friend will provide This plan was formulated with input from patient, family and team. All are in agreement with plan. CM addressed financial concerns with patient as she stated she was Medicare A/B only. Patient confirmed that she had received a brochure for financial assistance. She also [place] a point person that she works with on this at [facility]. Also states that she is on a financial program at [facility]. CM encouraged patient to call the financial assistance number provided on the brochure for screening and to discuss the bill from this hospitalization to determine what could potentially be used towards her Medicaid spend down as well. Patient verbalized understanding and denies any further questions or concerns at this time. CM updated DIRECTOR OF THERAPY SERVICES and completed consult that was placed for social work re: financial concerns. Clarisa Rees RN, MSN Family Health Nurse Practitioner - Cardiology Office of Care Management Pager: [phone] Work * Rell Gutierrez MD - 02/09/2020 7:26 AM EDT Inpatient Cardiology Progress Note Patient Name: Danielle Mills Date of Admission: 02/07/2020 ( Hospital Day 2 days ) Service: S2 ID: Danielle Mills 59 y/o F with HTN, DM, dyslipidemia, hypothyroidism, obesity/BEN was transferred from [facility] for NSTEMI. Cardiac cath this AM showed triple vessel disease s/p high riskPCI w/ stent placed in the LAD, LPA and LPL1. Active Problems: Active Hospital Problems Diagnosis ??? 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 Non-ST elevation myocardial infarction (NSTEMI) ??? NSTEMI (non-ST elevated myocardial infarction) ??? Depression, anxiety, insomnia, PTSD ??? Gastroesophageal reflux disease with hiatal hernia ??? Type 2 diabetes mellitus ??? HLD (hyperlipidemia) Resolved Hospital Problems No resolved problems to display. 24 hr events/Subjective: - No acute events overnight - Doing well, no issues. Scheduled Meds: ??? metoprolol succinate XL 50 mg Oral Daily ??? losartan 12.5 mg Oral Daily ??? insulin lispro 0-8 Units Subcutaneous TID WC ? ? insulin lispro 2-12 Units Subcutaneous 4 Times Daily AC & HS ??? enoxaparin 40 mg Subcutaneous Q12H DELORIS ??? aspirin 81 mg Oral Daily ??? liothyronine 5 mcg Oral Daily ??? pantoprazole EC 40 mg Oral Daily ??? sodium chloride 0.9 % (flush) 5 mL Intravenous BID ??? clopidogreL 75 mg Oral Daily Continuous Infusions: PRN Meds:.nicotine polacrilex, flu vacc (6 mos-64 yrs)(PF), glucose 40% oral geL OR dextrose 10% OR glucagon (human recombinant), clonazePAM, cyclobenzaprine, sodium chloride 0.9 % (flush), lidocaine, acetaminophen, potassium chloride ER OR potassium chloride ER Physical Exam: Last value Range last 24 hrs Temperature Temp: 36.9 ??C (98.4 ??F) Temp: [36.8 ??C (98.2 ??F)-37 ??C (98.6 ??F)] Heart Rate Heart Rate: 69 Heart Rate: [69-96] Blood Pressure BP: 101/63 BP: (87-145)/(60-119) Respiratory Rate Resp: 17 Resp: [16-28] SpO2 SpO2: 95 % SpO2: [92 %-99 %] Intake/Output Summary (Last 24 hours) at 02/09/2020 1033 Last data filed at 02/09/2020 0900 Gross per 24 hour Intake 770 ml Output 1140 ml Net -370 ml Cumulative I/O's since admission: Patient Vitals for the past 168 hrs: Weight 02/09/20 0600 116.2 kg (256 lb 3.2 oz) 02/07/20 0618 117.5 kg (259 lb 0.7 oz) Admit wt: 117.5 kg Gen: Pleasant female in NAD HEENT: MMM CV: RRR, s1/s2 of nl character and amplitude, no m/r/g Resp: CTAB, normal WOB on room air Abd: Nondistended, soft, NT, NABS Ext: WWP, 2+ dp/pt pulses, no LE edema Neuro: Alert and responsive without focal deficit Labs Recent Labs 02/09/20 0334 02/08/20 04002/07/20 0729 WBC 7.8 7.9 7.8 HGB 13.5 13.5 13.7 HCT 42.8 42.6 45.2 PLATELET 168 189 173 Recent Labs 02/09/20 0334 02/08/20 0401 02/07/20205402/07/20 0729 NA 138 138 -- -- 139 K 3.8 4.4 3.7 < > 4.1 CL 100 102 -- -- 105 CO2 29 27 -- -- 21* BUN 12 8 -- -- 7* CREATININE 0.78 0.66* -- -- 0.69* < > = values in this interval not displayed. Recent Labs 02/07/20 0729 AST 35* ALT 36* ALKPHOS 72 BILITOT 0.4 BILIDIR 0.1 Recent Labs 02/09/20 0334 02/08/20 0401 02/07/20 1055 02/07/20 0729 CALCIUM 8.0* 7.9* -- 8.1* MAGNESIUM 0.93 0.91 1.00 -- PHOS 2.8 1.9* 3.0 -- Recent Labs 02/07/20 0729 INR 1.0 PT 11.8 Recent Labs 02/07/20 1710 02/07/20 1055 02/07/20 0729 TROPONINT 0.27* 0.13* 0.10* Imaging/Studies: XR Chest One View Final Result Similar pattern of mild vascular congestive changes in the setting of intra-aortic pump. Thank you for letting us participate in the care of this patient. For questions regarding this report, please contact the number below. Cardiac Catheterization Final Result XR Chest One View Final Result Findings suggestive of mild volume overload without kuldeep pulmonary edema. Thank you for letting us participate in the care of this patient. For questions regarding this report, please contact the number below. Cardiac Catheterization Final Result CARDIAC CATH CASE REQUEST: CARDIAC CATHETERIZATION (Results Pending) CARDIAC CATH CASE REQUEST: CARDIAC CATHETERIZATION (Results Pending) XR Chest One View (Results Pending) Cardiac Catheterization: (02/07/2020) Conclusions: * Obstructive disease of the LAD and LCX * Nonobstructive disease of the LM * Successful stent insertion of the proximal LAD lesion * Successful stent insertion of the proximal LPL1 lesion * Successful stent insertion of the proximal LPDA lesion * See Dual Antiplatelet (DAPT) Recommendations above. Assessment: 59 y/o F with HTN, DM, dyslipidemia, hypothyroidism, obesity/BEN was transferred from [facility] for NSTEMI. S/p high risk PCI with stents to LAD, LPL1, LPDA. Required IABP which was removed shortly after theprocedure. Tolerating procedure well with no issues. CP is improved. Doing well. Discharge today. Plan:?? #NSTEMI s/p stent to LAD, LPL1, LPDA - ANN score 111 , DENIA score 4 - s/p cath with JEANETH - ASA, plavix - GDMT - started on metoprolol succinate 50 mg, losartan 12.5 mg #DM -Hold Victoza and glimepride -Sliding scale coverage. ?? #Hypothyroidism -C/w Cytomel. ?? #BEN -CPAP if required ?? #GERD -PPI and sucralfate. ?? #Anxiety -PRN Clonazepam. ?? # FEN/Ppx - Diet: cardiac diet - VTE: lovenox nightly - Electrolytes: Goal K > 4, Mg > 1. K+ protocol Code Status: Full code Dispo: d/c home Maria Bolaños MD PGY1 Cardiology S2 #[id number] CARDIOLOGY ATTENDING NOTE Patient: Danielle Mills Date of Service: 02/09/2020 Date of Admission: 02/07/2020 Length of Stay Hospital Day 2 days Please see the above note by Dr. Bolaños for details. I have interviewed and examined the patient independently and I concur with the assessment and plan. The case was discussed on cardiology rounds and we reviewed the plan of care with the team and patient. In addition, I certify that I am a D-H credentialed attending provider with admitting privileges and that the patient meets or has met medical necessity to require an inpatient IPI level of care meeting a minimum of two midnights. ?? Mrs. Mills is a 59 year old woman with history of HTN, HLD, DM, obesity who presented with worsening epigastric pain, ruled in for NSTEMI with anterior ST-T wave changes. 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 Discussed with CT surg, but due to poor targets, elected for PCI and she is now s/p PCI to LAD, LPL1 and LPDA. IABP removed. TTE with EF 61% with apical WMA. Continue GDMT with DAPT, BB, ARB (ACEI intolerant). Chest pain free. Cardiac rehab consult this morning and then stable for discharge home with outpatientcardiology follow-up. ?? Rest per Dr. Bolaños. Rell Gutierrez MD, MPH, RPVI, [facility] Pager [phone] [employer] RepresentativeManager Of Financial Reportingcake [place] [address] * Rell Gutierrez MD - 02/08/2020 7:04 AM EDT Inpatient Cardiology Progress Note Patient Name: Danielle Mills Date of Admission: 02/07/2020 ( Hospital Day 1 day ) Service: S2 ID: Danielle Mills 59 y/o F with HTN, DM, dyslipidemia, hypothyroidism, obesity/BEN was transferred from [facility] for NSTEMI. Cardiac cath this AM showed triple vessel disease s/p high riskPCI w/ stent placed in the LAD, LPA and LPL1. Active Problems: Active Hospital Problems Diagnosis ??? 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 Non-ST elevation myocardial infarction (NSTEMI) ??? NSTEMI (non-ST elevated myocardial infarction) ??? Depression, anxiety, insomnia, PTSD ??? Gastroesophageal reflux disease with hiatal hernia ??? Type 2 diabetes mellitus ??? HLD (hyperlipidemia) Resolved Hospital Problems No resolved problems to display. 24 hr events/Subjective: - No acute events overnight - Balloon pump was d/c'd - Doing well, no issues. - Denies CP, SOB, palpitations, PND, Orthopnea, dizziness/LH, LE swelling or pain, n/v, abd pain Scheduled Meds: ??? metoprolol tartrate 12.5 mg Oral Q6H DELORIS ??? potassium, sodium phosphates 3 g Oral Q4H ??? losartan 12.5 mg Oral Daily ??? insulin lispro 0-8 Units Subcutaneous TID WC ? ? insulin lispro 2-12 Units Subcutaneous 4 Times Daily AC & HS ??? aspirin 81 mg Oral Daily ??? liothyronine 5 mcg Oral Daily ??? pantoprazole EC 40 mg Oral Daily ??? sodium chloride 0.9 % (flush) 5 mL Intravenous BID ??? clopidogreL 75 mg Oral Daily Continuous Infusions: PRN Meds:.nicotine polacrilex, flu vacc (6 mos-64 yrs)(PF), glucose 40% oral geL OR dextrose 10% OR glucagon (human recombinant), clonazePAM, cyclobenzaprine, sodium chloride 0.9 % (flush), lidocaine, acetaminophen, potassium chloride ER OR potassium chloride ER Physical Exam: Last value Range last 24 hrs Temperature Temp: 36.7 ??C (98.1 ??F) Temp: [36.5 ??C (97.7 ??F)-37.6 ??C (99.7 ??F)] Heart Rate Heart Rate: 77 Heart Rate: [68-96] Blood Pressure BP: 112/66 BP: (88-132)/(33-79) Respiratory Rate Resp: 17 Resp: [-] SpO2 SpO2: 91 % SpO2: [91 %-100 %] Intake/Output Summary (Last 24 hours) at 02/08/2020 1131 Last data filed at 02/08/2020 0932 Gross per 24 hour Intake 1993 ml Output 4325 ml Net -2332 ml cumulative I/O's since admission: Patient Vitals for the past 168 hrs: Weight 02/07/20 0618 117.5 kg (259 lb 0.7 oz) Admit wt: 117.5 kg Gen: Pleasant female in NAD HEENT: MMM CV: RRR, s1/s2 of nl character and amplitude, no m/r/g Resp: CTAB, normal WOB on room air Abd: Nondistended, soft, NT, NABS Ext: WWP, 2+ dp/pt pulses, no LE edema Neuro: Alert and responsive without focal deficit Labs Recent Labs 02/08/2040002/07/20 0729 WBC 7.9 7.8 HGB 13.5 13.7 HCT 42.6 45.2 PLATELET 189 173 Recent Labs 02/08/2040002/07/20205402/07/20170902/07/20 0729 NA 138 -- -- 139 K 4.4 3.7 4.0 4.1 CL 102 -- -- 105 CO2 27 -- -- 21* BUN 8 -- -- 7* CREATININE 0.66* -- -- 0.69* Recent Labs 02/07/20 0729 AST 35* ALT 36* ALKPHOS 72 BILITOT 0.4 BILIDIR 0.1 Recent Labs 02/08/20 04002/07/20 1055 02/07/20 0729 CALCIUM 7.9* -- 8.1* MAGNESIUM 0.91 1.00 -- PHOS 1.9* 3.0 -- Recent Labs 02/07/20 0729 INR 1.0 PT 11.8 Recent Labs 02/07/20170902/07/20 10502/07/20 0729 TROPONINT 0.27* 0.13* 0.10* Imaging/Studies: XR Chest One View Final Result Similar pattern of mild vascular congestive changes in the setting of intra-aortic pump. Thank you for letting us participate in the care of this patient. For questions regarding this report, please contact the number below. Cardiac Catheterization Final Result XR Chest One View Final Result Findings suggestive of mild volume overload without kuldeep pulmonary edema. Thank you for letting us participate in the care of this patient. For questions regarding this report, please contact the number below. Cardiac Catheterization Final Result CARDIAC CATH CASE REQUEST: CARDIAC CATHETERIZATION (Results Pending) CARDIAC CATH CASE REQUEST: CARDIAC CATHETERIZATION (Results Pending) XR Chest One View (Results Pending) Cardiac Catheterization: (02/07/2020) Conclusions: * Obstructive disease of the LAD and LCX * Nonobstructive disease of the LM * Successful stent insertion of the proximal LAD lesion * Successful stent insertion of the proximal LPL1 lesion * Successful stent insertion of the proximal LPDA lesion * See Dual Antiplatelet (DAPT) Recommendations above. Assessment: 59 y/o F with HTN, DM, dyslipidemia, hypothyroidism, obesity/BEN was transferred from [facility] for NSTEMI. S/p high risk PCI with stents to LAD, LPL1, LPDA. Required IABP which was removed shortly after theprocedure. Tolerating procedure well with no issues. CP is improved. Doing well. Plan:?? #NSTEMI -ANN score 111 , DENIA score 4 - s/p cath with stent placed in the LAD, LPA and LPL1 - IABP was kept s/p cath, removed shortly after with no issues #DM -Hold Victoza and glimepride -Sliding scale coverage. ?? #Hypothyroidism -C/w Cytomel. ?? #BEN -CPAP if required ?? #GERD -PPI and sucralfate. ?? #Anxiety -PRN Clonazepam. ?? # FEN/Ppx - Diet: cardiac diet - VTE: lovenox nightly - Electrolytes: Goal K > 4, Mg > 1. K+ protocol Code Status: Full code Dispo: transfer to floor Maria Bolaños MD PGY1 Cardiology S2 #0019 CARDIOLOGY ATTENDING NOTE Patient: Danielle Mills Date of Service: 02/08/2020 Date of Admission: 02/07/2020 Length of Stay Hospital Day 1 day Please see the above note by Dr. Bolaños for details. I have interviewed and examined the patient independently and I concur with the assessment and plan. The case was discussed on cardiology rounds and we reviewed the plan of care with the team and patient. In addition, I certify that I am a D-H credentialed attending provider with admitting privileges and that the patient meets or has met medical necessity to require an inpatient IPI level of care meeting a minimum of two midnights. Mrs. Mills is a 59 year old woman with history of HTN, HLD, DM, obesity who presented with worsening epigastric pain, ruled in for NSTEMI with anterior ST-T wave changes. 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 Discussed with CT surg, but due to poor targets, elected for PCI and she is now s/p PCI to LAD, LPL1 and LPDA. IABP out. Doing well this morning, pain free. TTE with EF 61% with apical WMA. Continue GDMT with DAPT, BB, ARB (ACEI intolerant). Continue diuresis given elevated LVEDP. Stable to transfer for floor. Cardiac rehab consult. Probable discharge tomorrow if remains stable. Rest per Dr. Bolaños. Rell Gutierrez MD, MPH, RPVI, FACC Pager [phone] [employer] RepresentativeManager Of Financial Reportingcake [place] [address] * Carmella Alexander - 02/07/2020 9:02 PM EDT Post-Catheterization Progress Note Subjective: Patient denies lightheadedness, dyspnea, chest pain, palpitations, hand pain, wrist pain, or arm pain. Dressing clean and dry, no signs of infection, no bleeding from R radial access site. Objective: Vitals: Last value Range last 8 hrs Temperature Temp: 36.5 ??C (97.7 ??F) Temp: [36.5 ??C (97.7 ??F)] Heart Rate Heart Rate: 88 Heart Rate: [70-89] Blood Pressure BP: 119/63 BP: (88-132)/(33-79) Respiratory Rate Resp: 18 Resp: [12-20] SpO2 SpO2: 98 % SpO2: [92 %-100 %] Gen: Laying in bed in NAD Ext: R radial access site without hematoma or ecchymosis. No active bleeding. Dressing clean, dry, intact. No tenderness to palpation. A/P: S/p cardiac catheterization with benign appearing R radial access site. Carmella Alexander MD, PGY-2 Cardiology S1/S2, Pager [phone] 02/07/2020 * Ney Sylvester MD - 02/07/2020 1:58 PM EDT Danielle Mills is a 59 y.o. female referred for cardiac catheterization by Dr. Gutierrez for evaluation of coronary arteries . 59 y/o F with HTN, DM, dyslipidemia, hypothyroidism, obesity/BEN was transferred from [facility] for NSTEMI. Cardiac cath this AM showed triple vessel disease as below. IABP in place since this morning. Patient asymptomatic on nitro gtt. Left dominant ?? LM: mild LAD: proximal 90% LCx: LPL1 90%, LPDA 80% Ramus: ev mild RCA: mid 100% SOCIAL Hx: Outpatient Medications Marked as Taking for the 02/07/20 encounter (Hospital Encounter) Medication Sig Dispense Refill ??? esomeprazole (NexIUM) 40 mg Capsule, Delayed Release(E.C.) Take 40 mg by mouth every morning (before breakfast). Indications: indigestion ??? glimepiride (AMARYL) 4 mg Tablet Take 1 tablet by mouth 2 times daily. 180 tablet 3 ??? liothyronine (Cytomel) 5 mcg Tablet Take 1 tablet by mouth daily. 90 tablet 3 ??? [DISCONTINUED] omeprazole (PriLOSEC) 40 mg Capsule, Delayed Release(E.C.) TAKE 1 CAPSULE BY MOUTH TWICE DAILY BP 108/70 (BP Location (NBP): Left arm, Patient Position: Lying) Pulse 73 Temp 36.4 ??C (97.5 ??F) (Oral) Resp 9 Ht 165.1 cm (5' 5) Wt 117.5 kg (259 lb 0.7 oz) SpO2 99% BMI 43.11 kg/m?? Labs reviewed and notable for: Lab Results Component Value Date WBC 7.8 02/07/2020 HGB 13.7 02/07/2020 HCT 45.2 02/07/2020 MCV 84.8 02/07/2020 PLATELET 173 02/07/2020 Lab Results Component Value Date CREATININE 0.69 (L) 02/07/2020 BUN 7 (L) 02/07/2020 NA 139 02/07/2020 K 4.1 02/07/2020 CL 105 02/07/2020 CO2 21 (L) 02/07/2020 Lab Results Component Value Date INR 1.0 02/07/2020 A/P 59 y/o F with HTN, DM, dyslipidemia, hypothyroidism, obesity/BEN was transferred from [facility] for NSTEMI. Cardiac cath this AM showed triple vessel disease as below. IABP in place since this morning. Patient asymptomatic on nitro gtt. - consent signed - No apparent contraindication to DAPT, patient denies upcoming or planned procedures/operations, and denies ongoing or recent bleeding events - FULL code ASA 2 Mallampati 3 I have personally discussed the procedure, including benefits and risks, with the patient who agrees to proceed. The indications for the catheterization, the expected benefits, and the possible riskswere reviewed in detail with the patient. The potential for , heart attack, stroke, kidney failure, bleeding, allergic reaction, vascular complications and infection were reviewed. The possibility of stenting and other percutaneous interventions, with associated risk, was reviewed. The potential need for emergent coronary artery bypass surgery was reviewed. Alternatives were discussed and the patient's questions were answered in full. Following this discussion, the patient consented to theprocedure and signed a form attesting to this, which is in the chart Ney Sylvester MD General Cardiology 02/07/20 1:58 PM [id number] * Jacquelin Dotson RN - 02/07/2020 6:50 AM EDT 0630 Pt admitted for [facility] with c/o chest pain. Pt states she is having 4/10 sscp at this time. Nitrodrip was increased to 20 mcg. Heparin drip continued. MD at bedside. EKG done. Oriented to room andcall system. documented in this encounter H&P Notes * Vik Justin MD - 02/07/2020 6:26 AM EDT Cardiology Admission H&P Patient Name: Danielle Mills Date of : 1960 Age: 59 y.o. Hospital Admit Date: 02/07/2020 Inpatient Attending: Rell Gutierrez MD PCP: Francy Lowe APRN Presenting Diagnosis/Chief Complaint: Transfer from [facility] with NSTEMI/[place]. Active Problem List: Active Hospital Problems Diagnosis ??? Non-ST elevation myocardial infarction (NSTEMI) Resolved Hospital Problems No resolved problems to display. History of Present Illness: 59 y/o F with HTN, DM, dyslipidemia, hypothyroidism, obesity/BEN was transferred from [facility] for NSTEMI. Pt reports 1 week of epigastric crushing pain that initially thought was her GERD since worsened with food and drinking. Has been to the ED atleast 4 times with negative w/u that included EKGs. Since yesterday the pain has migrated up to more substernal location. Its worsened with lying and relieved with NTG. Report associated dyspnea and orthopnea. Some nausea but no vomiting. No diaphoresis. No fever, cough, leg swelling. No palpitations. At [facility] starting 9 pm, VSS stable 113/73 HR 85 bpm, RR 19 Questionable CLEMENTINA in V1-V2. Troponin 0.24, lipase 117 CT abdomen/plevis reportedly unremarkable. Pt is s/p CCY She received 4mg IV morphine , Zofran She was started on Heparin and NTG drip. Received ASA 324mg @ 1:32 am at [facility] Plavix 300mg @ 1:55am and then 300mg @2:21am. Consulted with Cards fellow at [facility] and decided to transfer. Personal and social Hx: . Active smoker with 1ppd X 45 yrs. No Etoh or street drug use. FH: Brother used NTG before dying in his 40s. Unknown if had established CAD. Older sister with CHF. 6 years ago in her 60s. Both parents from cancer. Past Medical History: Past Medical History: Diagnosis Date ??? DM hyperosmolarity type II ??? GERD (gastroesophageal reflux disease) ??? Hiatal hernia ??? Hyperlipidemia ??? IBS (irritable bowel syndrome) ??? PTSD (post-traumatic stress disorder) ??? Tobacco use Surgical History/Problems: Past Surgical History: Procedure Laterality Date ??? ANUS SURGERY 2004 Anal fissure repair Procedure Date: 2004 ??? CARPAL TUNNEL RELEASE Bilateral ~2004 Bilateral carpal tunnel release Procedure Date: Unknown ??? ELBOW SURGERY 01/04/2015 Left lateral epi rel ??? HIP SURGERY Right Right hip spur Procedure Date: Unknown, Dr. Benitez ??? HYSTERECTOMY, TOTAL ABDOMINAL 1994 Total abdominal hysterectomy Procedure Date: 1994 ??? PRO UPPER GI ENDOSCOPY, BIOPSY N/A 11/19/2018 EGD WITH BIOPSY (WRVU 2.49) performed by Nimesh Alicia MD at [facility] ENDOSCOPY ??? RECTOCELE REPAIR 2014 Dr. Boo @ [facility] ??? SHOULDER SURGERY Left 06/05/2017 L shoulder AC joint resection and bicep debridement, Dr. Adrien Pedro ??? TOTAL KNEE ARTHROPLASTY 09/2009 Right total knee replacement Procedure Date: September 2009 Significant Family History: No family history on file. Social History: Social History Socioeconomic History ??? Marital status: Single Spouse name: Not on file ??? Number [...] status: Current Every Day Smoker Packs/day: 0.50 Types: Cigarettes ??? Smokeless tobacco: Never Used ??? Tobacco comment: states is quitting 11/19/2018 Substance and Sexual Activity ??? Alcohol use: Yes Frequency: Never Comment: ocassional ??? Drug use: Not Currently Comment: no drugs since 1990 no IV drug use ??? Sexual activity: Not on file Lifestyle ??? Physical activity Days per week: Not on file Minutes per session: Not on file ??? Stress: Not on file Relationships ??? Social connections Talks on phone: Not on file Gets together: Not on file Attends sikh service: Not on file Active member of [...] Social History Narrative ??? Not on file REVIEW OF SYSTEMS: Review of Systems Constitutional: Positive for appetite change. Negative for activity change, chills, diaphoresis, fatigue and fever. HENT: Negative for congestion, ear pain, facial swelling, hearing loss, postnasal drip, sinus pressure, sinus pain and sore throat. Eyes: Negative. Negative for discharge and itching. Respiratory: Negative for apnea, cough, chest tightness, shortness of breath and wheezing. Cardiovascular: Positive for chest pain. Negative for palpitations and leg swelling. Gastrointestinal: Positive for abdominal pain and nausea. Negative for abdominal distention, anal bleeding, blood in stool, constipation, rectal pain and vomiting. Endocrine: Negative. Genitourinary: Negative. Musculoskeletal: Positive for arthralgias and back pain. Negative for neck pain. Skin: Negative. Allergic/Immunologic: Negative. Neurological: Negative. Negative for dizziness, tremors, seizures, syncope, weakness and light-headedness. Hematological: Negative. Psychiatric/Behavioral: Negative. Medications: Medications Prior to Admission Medication Sig Dispense Refill Last Dose ??? glimepiride (AMARYL) 4 mg Tablet Take 1 tablet by mouth 2 times daily. 180 tablet 3 ??? liraglutide (VICTOZA) 0.6 mg/0.1 mL (18 mg/3 mL) Pen Injector Inject 1.8 mg subcutaneously daily. 9 Syringe 3 ??? levothyroxine (Synthroid) 25 mcg Tablet Take 0.5-1 tablets by mouth daily. 30 tablet 11 ??? liothyronine (Cytomel) 5 mcg Tablet Take 1 tablet by mouth daily. 90 tablet 3 ??? cyclobenzaprine (Flexeril) 10 mg Tablet TAKE 1 TABLET BY MOUTH AT BEDTIME NEEDED ??? pregabalin (Lyrica) 25 mg Capsule TAKE 1 CAPSULE BY MOUTH TWICE DAILY ??? omeprazole (PriLOSEC) 40 mg Capsule, Delayed Release(E.C.) TAKE 1 CAPSULE BY MOUTH TWICE DAILY ??? Lantus U-100 Insulin Solution ??? acetaminophen (TYLENOL) 500 mg Tablet Take 1,000 mg by mouth every 6 hours as needed for Pain. ??? Ibuprofen 200 mg Capsule Take 800 mg by mouth. ??? sucralfate (CARAFATE) 100 mg/mL Suspension Take 1 g by mouth 4 times daily. ??? amoxicillin (AMOXIL) 500 mg Tablet Take 4 tablets by mouth 1 hour prior to procedure 12 tablet 2 ??? clonazePAM (KLONOPIN) 0.5 mg Tablet Take 0.5 mg by mouth daily. 2 ??? BD ULTRA-FINE ORIG PEN NEEDLE 29 gauge x 1/2 Needle INJECT INSULIN SUBCUTANEOUSLY DIRECTED.3 Allergies: Allergies Allergen Reactions ??? Atorvastatin Other (See Comments) ??? Codeine Other (See Comments) ??? Hydrocodone-Acetaminophen Itching ??? Indomethacin Itching ??? Oxycodone-Acetaminophen Itching ??? Prednisone ??? Rosuvastatin Other (See Comments) PHYSICAL EXAM: Last set of vital signs: Ht 165.1 cm (5' 5) Wt 117.5 kg (259 lb 0.7 oz) BMI 43.11 kg/m?? Physical Exam Constitutional: General: She is not in acute distress. Appearance: Normal appearance. She is obese. She is not ill-appearing or diaphoretic. HENT: Head: Normocephalic and atraumatic. Right Ear: External ear normal. Left Ear: External ear normal. Mouth/Throat: Mouth: Mucous membranes are moist. Eyes: General: No scleral icterus. Extraocular Movements: Extraocular movements intact. Pupils: Pupils are equal, round, and reactive to light. Neck: Musculoskeletal: Normal range of motion. Cardiovascular: Rate and Rhythm: Normal rate and regular rhythm. Pulses: Normal pulses. Heart sounds: Normal heart sounds. No murmur. Pulmonary: Breath sounds: No wheezing or rales. Abdominal: Palpations: Abdomen is soft. Tenderness: There is abdominal tenderness. There is no right CVA tenderness or left CVA tenderness. Musculoskeletal: General: No swelling. Right lower leg: No edema. Left lower leg: No edema. Skin: General: Skin is warm. Capillary Refill: Capillary refill takes less than 2 seconds. Comments: Tattoos on LE. Neurological: General: No focal deficit present. Mental Status: She is alert and oriented to person, place, and time. Psychiatric: Mood and Affect: Mood normal. Behavior: Behavior normal. Diagnostics: ECG: NSR @ 80 bpm, normal axis, ? CLEMENTINA in V1-V6 with TWI . Also in I , aVR. QTc 49ms. CXR pending. LABS: No results found for this or any previous visit (from the past 24 hour(s)). ASSESSMENT: 59 y/o F with HTN, DM, dyslipidemia, hypothyroidism, obesity/BEN was transferred from [facility] for NSTEMI. TREATMENT PLAN: #[place]/NSTEMI -ANN score 111 , DENIA score 4 -C/w Heparin and NTG drip. - Received ASA 324mg @ 1:32 am at [facility] -Plavix 300mg @ 1:55am and then 300mg @2:21am. -Will consider adding Metoprolol if BP allows. Last BP 100/60 on NTG drip. -Pt reports constipation with statins. -Plan for urgent LHC today. #DM -Hold Victoza and glimepride -Sliding scale coverage. #Hypothyroidism -C/w Cytomel. #BEN #GERD -PPI and sucralfate. #Anxiety -PRN Clonazepam. #Full code. NPO for LHC. Provider: Vik Justin MD Provider #: [id number] 02/07/2020 documented in this encounter Miscellaneous Notes * Consult Note - Arnaud Teague RN - 02/09/2020 11:53 AM EDT TOBACCO DEPENDENCE TREATMENT NOTE DATE: 02/09/2020 NAME: Danielle Mills : 1960 S: I promise, I am never going to smoke again. I already had him () throw away all my cigarettes, lighters, anything that will be a reminder. I have already thought about some changes I need to make and changing up my habits. O: Referral received. I met with Danielle just as she was preparing for discharge. She would like to continue using the nicotine lozenges to help manage her cravings. She's not able to use the nicotine patches because of an adhesive sensitivity. She has used Chantix in the past and was successful the first time she used it, remaining tobacco-free for about 4 months. She relapsed after the passing of a pet. The second time she tried Chantix she experienced horrible depression and cried constantly. She has tried Wellbutrin in the past and that also caused a horrible depression. Pt feels confident that she will be able to remain tobacco-free with just the lozenges. I gave her a supply of 4 mg nicotine lozenges and reviewed proper use. Pt verbalized understanding. She was also given the Tobacco Treatment packet, including my contact information, and was encouraged to contact me with any questions or concerns. A: Pt is in the PREPARATION stage of change. P: Continue current plan of care. I will follow-up with Danielle at the one month michelle to assess progress with this quit attempt. Thank you. Arnaud Teague, MSN, RN-, [facility] [employer] [facility] Pager #[phone] * Consult Note - Chelsey Beltre RN - 02/09/2020 9:40 AM EDT Danielle Mills was seen today by Cardiac Rehabilitation for: NSTEMI, PCI Activity evaluation - Just walked with RN in CCU. Harriet well. Educational packet regarding CAD, cardiac risk factors, and managing angina given to the patient. Heart diagram reviewed. Given parameters for home exercise. Reviewed managing angina /use of sl nitroglycerin. She has significant stress in her life. She uses smoking to deal w/stress but feels very motivated to quit. Participation in an outpatient cardiac rehabilitation program at [facility] was discussed. Patient agrees to a referral to this program. The referral will be sent at discharge and the patient should be contacted by the Program within 1- 2 weeks from discharge. * Plan of Care - Maribel Babcock RN - 02/08/2020 6:02 PM EDT Problem: Patient Care Overview Goal: Plan of Care Review Outcome: Ongoing (Interventions Implemented as Appropriate) 02/08/20 0802/08/20 3337 Plan of Care Review Progress -- improving Coping/Psychosocial Plan Of Care Reviewed With patient -- OUTCOME EVALUATION NOTE: OUTCOME SUMMARY: A+0x4, sr on tele. Denies pain/sob. Pt walked in halls twice today with stand by assist, pt had steady gait. Pt did c/o Left Neck pain but resolved as soon as it started, did not have any other symptoms with incident- pt spoke to md about situation. Alfred removed. Voiding appropriately PLAN MOVING FORWARD: Transfer to floor when bed available INDIVIDUALIZED FALL PREVENTION INTERVENTIONS: Patient-specific fall risk factors per assessment: [current deficits]: Multiple lines Assistance [level of assistance required for transfers and ambulation]: Stand by Supervision [direct monitoring required during toileting and ADLs]: full Surveillance [continuous indirect monitoring]: zhou Patient-specific fall prevention interventions for sensory deficits provided, if applicable: CPG GOAL OUTCOME EVALUATION: Goal: Fall Prevention-Safe Patient Handling Outcome: Ongoing (Interventions Implemented as Appropriate) 02/08/20 0802/08/20 1400 02/08/20 1600 Mcdaniel Fall Risk History of Falling 0 -- -- Secondary Diagnosis 15 -- -- Ambulatory Aids 0 -- -- Intravenous Therapy/Heparin/Saline Lock 20 -- -- Gait/Transferring 0 -- -- Mental Status 0 -- -- Score 35 -- -- OTHER Mcdaniel Fall Risk Med -- -- Restraint Interventions Safety Promotion/Fall Prevention -- -- safety round/check completed Positioning Body Position independent -- -- Activity Activity Type activity adjusted per tolerance -- -- Activity Assistance Provided -- assistance, stand-by -- Assistive Device Utilized none -- -- Goal: Infection Control Outcome: Ongoing (Interventions Implemented as Appropriate) 02/08/20 0800 Safety Interventions Isolation Precautions standard precautions maintained Infection Prevention single patient room provided Coping Strategies Supportive Measures goal setting facilitated;verbalization of feelings encouraged;self-care encouraged;positive reinforcement provided * Initial Assessments - Clarisa Rees RN - 02/08/2020 6:12 AM EDT Office of Care Management Initial Assessment Clarisa Rees RN reviewed record and discussed patient with Care Team. Source of Information: Source: (chart reviewed), team, bedside nurse and medical record Introduced self/reviewed role; services accepted. Reason for Hospitalization: Reason for Admission as Stated by Patient: chest pain/NSTEMI. Transferred from [facility] Last COVID test date and time: 02/07/20 negative Past medical History: Past Medical History: Diagnosis Date ??? Arthritis ??? Depression ??? DM hyperosmolarity type II ??? GERD (gastroesophageal reflux disease) ??? Hepatitis ??? Hiatal hernia ??? Hyperlipidemia ??? IBS (irritable bowel syndrome) ??? PTSD (post-traumatic stress disorder) ??? Tobacco use Hospitalizations Within the Past 30 Days: Hospitalizations in past 30 days: 0 Anticipated Length Of Stay (If known): 2 days Current Decision-Making Capacity: Decision Maker: Self Advance Care Planning: Full Code <no information> -Advanced Directive: No, need to discuss If AD's have not been completed spouse would be surrogate decision maker per [place] surrogate decision making law. (Only good for 90 days) Any patient receiving care at [facility] must abide by [place] law. The hierarchy for surrogate decision making is: (a) Patient???s spouse, or civil union partner or common law spouse unless there is a divorce proceeding, separation agreement, or restraining order limiting that person???s relationship with the patient. (b) Any adult son or daughter of the patient. (c) Either parent of the patient. (d) Any adult brother or sister of the patient. (e) Any adult grandchild of the patient. (f) Any grandparent of the patient. (g) Any adult aunt, uncle, niece, or nephew of the patient. (h) A close friend of the patient. (i) The agent with financial power of tax attorney or a conservator appointed in accordance with RSA 464-A. (j) The guardian of the patient???s estate. Current Coping/Education/Information Needs: . Patient states she/he is coping pretty well and declined needing a social work consult at this time. Confirms that providers have been good about communicating information to them and denies current questions. 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 Living Arrangements: house. Home Environment: 2 story home with finished basement. Current DME: none DME Needed at DC: none Home Address Listed as: [address] [place] [id number] Social & Family Supports: Extended Emergency Contact Information Primary Emergency Contact: Andrés Mills [address]: [address] [place] [address], [place] [address] [facility] Relation: Spouse Community Resources being provided currently: none noted Behavioral Health History: Current or Prior Mental Health History: Unable to address at this time Substance Use/Abuse: Per chart review: current smoker, occasional alcohol and no recreational drug use since 1990. Other Pertinent/Service Specific Information: No Health/Prescription Coverage: Primary Insurance: MEDICARE Payor: MEDICARE / Plan: MEDICARE PART A & B / Product Type: *No Product type* / Secondary Insurance: N/A Prescription Coverage: Preferred Pharmacy: [id number] - [place] - [address] [place] [address] [id number] - [place], [place] - [address] [facility] [address] [facility] [address] [place], [place] [address] [facility] [address] [facility] [address] Primary Care Provider: Francy Lowe APRN [phone] Patient/Caregiver Goals of Treatment: DC home Potential Needs for Transition of Care: Services Anticipated at Discharge: none Transportation: Transportation Available: family or friend will provide Anticipated Barriers to Discharge/Special Considerations: None noted or presented to CM at this time. Assessment: Patient with no apparent RNCM/SW needs at this time. No housing, transportation, insurance, resources concerns identified at this time. Supports in place to achieve a safe post-hospital transition. No identified barriers to accessing necessary care and/or follow-up after discharge. Assessment: patient is admitted to cardiology service for NSTEMI as a transfer from [facility]. Plan: A member of the Care Management team will continue to monitor progress, follow for continuityof care and assist with transition of care planning. Clarisa Rees RN, MSN, astrophysics teacher Office of Care Management Pager: [phone] Work * Brief Op Note - Todd Garcia MD - 02/07/2020 3:26 PM EDT Images from the original note were not included. Preliminary Cardiac Catheterization Procedure Note: Patient Name: Danielle Mills : [id number] MR#: [id number] Case Date: 02/07/2020 Real Estate Office Manager: Surgeon(s) and Role: * Todd Garcia MD - Primary Preoperative diagnosis: ?CAD Postoperative diagnosis: *ASCVD * Procedure(s) performed: Stent insertion, coronary Access: left BRANCH OPERATIONS COORDINATOR--> Perclosed A time-out was conducted prior to the start of the procedure to verify the correct patient and procedure, procedure location, and all relevant critical information. Preliminary findings: Left dominant LM: mild LAD: proximal 90% LCx: LPL1 90%, LPDA 80% Ramus: ev mild RCA: mid 100% Stent placed in the LAD, LPA and LPL1 IABP will be left for 2-6 hours post procedure until pain. Full report to follow. Todd Garcia MD * Brief Op Note - Todd Garcia MD - 02/07/2020 8:58 AM EDT Preliminary Cardiac Catheterization Procedure Note: Patient Name: Danielle Mills : [id number] MR#: [id number] Case Date: 02/07/2020 Real Estate Office Manager: Surgeon(s) and Role: * Todd Garcia MD - Primary * David Vigil MD - Fellow Preoperative diagnosis: ASCVD Postoperative diagnosis: * ASCVD * Procedure(s) performed: [facility] Coronary angio IABP insertion Access: right radial--> TR band, right BRANCH OPERATIONS COORDINATOR--> IABP inserted A time-out was conducted prior to the start of the procedure to verify the correct patient and procedure, procedure location, and all relevant critical information. Preliminary findings: Left dominant LM: mild LAD: proximal 90% LCx: LPL1 90%, LPDA 80% Ramus: ev mild RCA: mid 100% Severe ASCVD. Reviewed with attending. In light of multivessel disease, diabetes status, and young age, decision made for CABG. IABP inserted to quell low level chest pain, and this was effective. CPfree The patient tolerated the procedures smoothly and was transferred from the cardiac catheterization lab to the next level of care in stable condition. No evident early complications. Full report to follow. Todd Garcia MD * Consult Note - Will Skinner MD - 02/07/2020 8:45 AM EDT Cardiac Surgery Consultation Note Danielle Mills is seen at the request of Dr. Gutierrez for the evaluation of MVCAD. HPI: She is a 59 y.o. year old female who was transferred here this am for NSTEMI. She reported 1 week of epigastric pain that she thought was related to GERD. She has had several work ups in the past at the ED at [facility] for epigastric pain that had been negative for acute findings. Thispresentation she was found to have a slight troponin elevation and slight ST elevation in V1-V6 with t wave inversions. Cath this am showed multivessel disease including LAD, Circ and RCA. She was still having some chest pain on low dose nitro. An IABP was placed in the mill labor supervisor and she is being transferred to [facility]. She received 600mg of plavix this morning. She is currently in [facility] following cath with IABP in place. She is chest pain free. She is on a nitro drip @ 40 mcg/min. She has no other current complaints. Other than the epigastric pain which she has been having, she had no other recent illnesses or complaints. Recently changed her diet drastically to eliminate gluten and other things because of her recent Ronny's diagnosis. Review of Symptoms: Constitutional - No weakness, fatigue, fevers, weight change. HEENT - No visual changes; no hearing changes; no recent URI symptoms. Neck - No new pain, limitation of motion. Cardiovascular -As per HPI. Pulmonary - No dyspnea, cough, bronchitis, pneumonias. GI - No difficulty swallowing, abdominal pain, constipation, diarrhea, melena, or BRBPR. - No frequency, nocturia, dysuria. Musculoskeletal - No muscle pain, No new limitation of motion. Extremities - No edema, no varicosities. Neuro - No confusion, syncope, paresthesias. Hematologic - No bruising, excessive bleeding, previous bleeding issues. Problem List: Patient Active Problem List Diagnosis ??? 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 Non-ST elevation myocardial infarction (NSTEMI) ??? NSTEMI (non-ST elevated myocardial infarction) ??? BEN (obstructive sleep apnea) ??? HAMMONDS (nonalcoholic steatohepatitis) ??? Adult BMI 45.0-49.9 kg/sq m ??? Chronic bilateral low back pain with right-sided sciatica ??? Benign lipomatous neoplasm ??? Cystocele ??? Depression, anxiety, insomnia, PTSD ??? Edema ??? Nicotine dependence, uncomplicated ??? Onychomycosis of toenail ??? Osteoarthritis of hip ??? Spinal stenosis of cervical region ??? Carpal tunnel syndrome ??? Gastroesophageal reflux disease with hiatal hernia ??? Type 2 diabetes mellitus Diet controlled ??? HLD (hyperlipidemia) Past Medical History: Past Medical History: Diagnosis Date ??? Arthritis ??? Depression ??? DM hyperosmolarity type II ??? GERD (gastroesophageal reflux disease) ??? Hepatitis ??? Hiatal hernia ??? Hyperlipidemia ??? IBS (irritable bowel syndrome) ??? PTSD (post-traumatic stress disorder) ??? Tobacco use Denies: CVA, TIA, asthma, emphysema, cancer. Past Surgical History: Past Surgical History: Procedure [...] 2.49) performed by Nimesh Alicia MD at [facility] END[facility]COPY ??? RECTOCELE REPAIR 2014 Dr. Boo @ [facility] ??? SHOULDER SURGERY Left 06/05/2017 L shoulder AC joint resection and bicep debridement, Dr. Adrien Pedro ??? TOTAL KNEE ARTHROPLASTY 09/2009 Right total knee replacement Procedure Date: September 2009 Denies previous chest surgery, vein, or or other vascular surgery. Social History: Social History Tobacco Use ??? Smoking status: Current Every Day Smoker Packs/day: 1.00 Years: 45.00 Pack years: 45.00 Types: Cigarettes ??? Smokeless tobacco: Never Used ??? Tobacco comment: states is quitting 11/19/2018 Substance Use Topics ??? Alcohol use: Yes Frequency: Never Comment: ocassional ??? Drug use: Not Currently Comment: no drugs since 1990 no IV drug use Social History Social History Narrative ??? Not on file Work-She is on disability for spinal issues/chronic pain. 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 Family- lives with Andrés and his mother. Illicit drug use- denies Bahai- denies Family History: History reviewed. No pertinent family history. Meds Prior to Admission: Medications Prior to Admission Medication Sig Dispense Refill Last Dose ??? esomeprazole (NexIUM) 40 mg Capsule, Delayed Release(E.C.) Take 40 mg by mouth every morning (before breakfast). Indications: indigestion ??? glimepiride (AMARYL) 4 mg Tablet Take 1 tablet by mouth 2 times daily. 180 tablet 3 02/06/2020 at Unknown time ??? liothyronine (Cytomel) 5 mcg Tablet Take 1 tablet by mouth daily. 90 tablet 3 02/06/2020 at Unknown time ??? liraglutide (VICTOZA) 0.6 mg/0.1 mL (18 mg/3 mL) Pen Injector Inject 1.8 mg subcutaneously daily. 9 Syringe 3 Unknown at Unknown time ??? cyclobenzaprine (Flexeril) 10 mg Tablet TAKE 1 TABLET BY MOUTH AT BEDTIME NEEDED Unknown at Unknown time ??? acetaminophen (TYLENOL) 500 mg Tablet Take 1,000 mg by mouth every 6 hours as needed for Pain. Unknown at Unknown time ??? Ibuprofen 200 mg Capsule Take 800 mg by mouth. Unknown at Unknown time ??? sucralfate (CARAFATE) 100 mg/mL Suspension Take 1 g by mouth 4 times daily. Unknown at Unknown time ??? amoxicillin (AMOXIL) 500 mg Tablet Take 4 tablets by mouth 1 hour prior to procedure 12 tablet 2 Unknown at Unknown time ??? clonazePAM (KLONOPIN) 0.5 mg Tablet Take 0.5 mg by mouth daily. 2 Unknown at Unknown time ??? BD ULTRA-FINE ORIG PEN NEEDLE 29 gauge x 1/2 Needle INJECT INSULIN SUBCUTANEOUSLY DIRECTED.3 Unknown at Unknown time Current Meds: Scheduled Meds: ??? heparin (porcine) ??? [MAR Hold] aspirin 81 mg Oral Daily ??? [MAR Hold] insulin lispro 1-6 Units Subcutaneous TID AC ??? [MAR Hold] metoprolol tartrate 12.5 mg Oral Q12H DELORIS Continuous Infusions: ??? nitroGLYcerin 40 mcg/min (02/07/20 0835) PRN Meds:.[MAR Hold] glucose 40% oral geL OR [MAR Hold] dextrose 10% OR [MAR Hold] glucagon(human recombinant), fentaNYL (PF), verapamiL, midazolam (PF), nitroGLYcerin, heparin (porcine), nitroGLYcerin Allergies: Allergies Allergen Reactions ??? Atorvastatin Other (See Comments) ??? Codeine Other (See Comments) ??? Hydrocodone-Acetaminophen Itching ??? Indomethacin Itching ??? Oxycodone-Acetaminophen Itching ??? Prednisone ??? Rosuvastatin Other (See Comments) Physical Exam: BP (!) 148/118 Pulse 84 Resp 16 Ht 165.1 cm (5' 5) Wt 117.5 kg (259 lb 0.7 oz) SpO2 98% BMI 43.11 kg/m?? General: Well appearing in no acute distress, on bedrest. Neuro: Conversant. Alert and oriented x 3. Grossly intact with grossly normal strength. Skin: Warm, dry, and well perfused. Extensive tattoos. Neck: Trachea ML. No JVD. No carotid bruits. Heart: RR, S1/S2. NSR on tele. Lungs: LS present bilaterally. No W/R/C. Abdomen: Soft, NT/ND. BS present. No masses noted. Extremities: right groin IABP. No clubbing, cyanosis, or edema. No significant varicosities. Diagnostics: Lab Results Component Value Date WBC 7.8 02/07/2020 RBC 5.33 (H) 02/07/2020 HGB 13.7 02/07/2020 HCT 45.2 02/07/2020 PLATELET 173 02/07/2020 Recent Labs 02/07/20 0729 INR 1.0 Lab Results Component Value Date NA 139 02/07/2020 K 4.1 02/07/2020 CL 105 02/07/2020 CO2 21 (L) 02/07/2020 BUN 7 (L) 02/07/2020 CREATININE 0.69 (L) 02/07/2020 CXR: pending CATH: Coronary Angiography: Dominance: Left Left Main There was mild diffuse (<=25% stenosis) disease of the entire vessel segment of the left main artery. Left Anterior Descending There was mild diffuse (<=25% stenosis) disease of the entire vessel segment of the left anterior descending artery (LAD). The proximal segment of the LAD had a single discrete 95% stenosis. Left Circumflex There was mild diffuse (<=25% stenosis) disease of the entire vessel segment of the left circumflex artery (LCX). There was a 90% single discrete stenosis of the proximal segment of the first left posterolateral branch (LPL1) of the LCX. There was an 80% diffuse stenosis of the proximal segment of the second left posterolateral branch (LPL2) of the LCX. Right Coronary Artery There was mild diffuse (<=25% stenosis) disease of the entire vessel segment of the right coronary artery (RCA). The proximal segment of the RCA had a single discrete total occlusion. Ramus There was mild diffuse (<=25% stenosis) disease of the entire vessel segment of the ramus. Vascular Access: Vascular Access Management: Mechanical Compression of the right radial artery access site was performed. Conclusions: * Three vessel coronary artery disease (LAD, LCX and RCA) * Elevated left ventricular end diastolic pressure ECHO: pending. Assessment and Plan: 59 y.o. year old with MVCAD with IABP in place, no chest pain currently. She presented with NSTEMI, Systolic HF with PMHx of BEN, COPD, GERD. DMII, HLD, HAMMONDS, Chronic Back Pain, Depression, Current tobacco use, and ronny's thyroiditis. -Pre-Op BB as tolerated -No further Plavix if proceeding forth with surgery. -Continue with medical management/optimization. -Surgical candidacy, timing, and/or further recommendations will be determined by the Attending Surgeon. DW Dr. Skinner. Thank you very much for the opportunity to be involved in the care of Danielle Mills. Signed: JUAN PABLO [facility] Section of Cardiac Surgery Date: 02/07/2020 59 yo female who presents with stuttering PA, on plavix, anterior WMA. CAth shows a very tight proximal LAD stenosis, distal LCX disease, non-dominant RCA which is occluded. The distal LCX circulation is not a good target for bypass surgery. The RCA is not a target. The LAD is a good target. We could end up surgery with only a NAIR to the LAD. Right now on plavix, with an acute PA, on an IABP, with BMI 43 and diabetes she is at higher risk for CABG than average. The LAD is the likely target vessel. I would recommend consideration of PCI to the LAD only. She may eventually require CABG surgery, but it could be a much lower risk than she currently faces. * Plan of Care - Vik Justin MD - 02/07/2020 6:50 AM EDT Images from the original note were not included. Cardiac cath Pre Procedure Note The indications, expected benefits and potential risks of heart catheterization were reviewed in detail with the patient. The potential for , heart attack, stroke, kidney failure, hemorrhage, allergic reaction, vascular complications and infection were reviewed in detail. The possibility of stenting and other percutaneous intervention with associated risk was reviewed. The possible need for emergent coronary artery bypass surgery was reviewed. After a discussion about the above, and havinganswered all questions posed, the patient was provided with a consent which was reviewed and signed. ASA: 2: Patient with mild systemic disease Mallampati: III: only the base of the uvula can be seen Sedation Plan: moderate (conscious sedation) Assessment and Plan: Proceed with cardiac cath today, see progress note from today for further details. Vik Justin MD 02/07/2020 Pager [phone] documented in this encounter Plan of Treatment Scheduled Referrals Name Type Priority Associated Diagnoses Orde r Schedule Referral to Cardiac Rehab Outpatient Referral Routine Non-ST elevation myocardial infarction (NSTEMI) Ordered: 02/09/2020 documented as of this encounter Procedures Procedure Name Priority Date/Time Associated Diagnosis Comments POCT GLUCOSE Routine 02/09/2020 6:55 AM EDT HEMOGRAM Routine 02/09/2020 3:34 AM EDT DIFFERENTIAL, AUTOMATED Routine 02/09/20 20 3:34 AM EDT HC CBC,PLT & AUTO DIFF Routine 0 3:34 AM EDT HC PHOSPHORUS, SERUM Routine 02/09/2020 3:34 AM EDT HC MAGNESIUM, SERUM Routine 02/09/2020 3 :34 AM EDT BASIC METABOLIC PANEL (NON-FASTING) Timed 02/09/2020 3:34 AM EDT POCT GLUCOSE Routine 02/08/2020 8:56 PM EDT POCT GLUCOSE Routine 02/08/2020 4:52 PM EDT POCT GLUCOSE Routine 02/08/2020 12:35 PM EDT POCT GLUCOSE Routine 02/08/2020 9:38 AM EDT POCT GLUCOSE Routine 02/08/2020 7:35 AM EDT HEMOGRAM Routine 02/08/2020 4:01 AM EDT DIFFERENTIAL, AUTOMATED Routine 02/08/20 20 4:01 AM EDT HC CBC,PLT & AUTO DIFF Routine 0 4:01 AM EDT HC PHOSPHORUS, SERUM Routine 02/08/2020 4:01 AM EDT HC MAGNESIUM, SERUM Routine 02/08/2020 4 :01 AM EDT BASIC METABOLIC PANEL (NON-FASTING) Timed 02/08/2020 4:01 AM EDT HC POTASSIUM Routine 02/07/2020 8:55 PM EDT POCT GLUCOSE Routine 02/07/2020 8:48 PM EDT HC TROPONIN T STAT 02/07/2020 5:10 PM EDT HC POTASSIUM Routine 02/07/2020 5:10 PM EDT XR CHEST ONE VIEW Routine 02/07/2020 5:0 7 PM EDT POCT GLUCOSE Routine 02/07/2020 4:21 PM EDT CARDIAC CATHETERIZATION Routine 02/07/20 3:21 PM EDT RAPID COVID-19 PCR ([facility]) Routine 02/07/2020 12:30 PM EDT POCT GLUCOSE Routine 02/07/2020 10:58 AM EDT HC UNFRACTIONATED HEPARIN (HEP [facility]) STAT 02/07/2020 10:55 AM EDT LAVENDER TUBE HOLD Routine 02/07/2020 10 :55 AM EDT HC TROPONIN T STAT 02/07/2020 10:55 AM EDT HC PHOSPHORUS, SERUM Routine 02/07/2020 10:55 AM EDT HC MAGNESIUM, SERUM Routine 02/07/2020 1 0:55 AM EDT ECHO COMPLETE W CONTRAST Routine 02/07/2020 10:46 AM EDT Non-ST elevation myocardial infarction (NSTEMI) XR CHEST ONE VIEW STAT 02/07/2020 9:4 6 AM EDT CARDIAC CATHETERIZATION Routine 02/07/20 20 9:00 AM EDT POCT GLUCOSE Routine 02/07/2020 7:32 AM EDT CRP, ACUTE INFLAMMATION STAT 02/07/20 20 7:29 AM EDT HC VENIPUNCTURE STAT 02/07/2020 7:29 AM EDT HEMOGRAM STAT 02/07/2020 7:29 AM EDT DIFFERENTIAL, AUTOMATED STAT 02/07/20 20 7:29 AM EDT SEDIMENTATION RATE STAT 02/07/2020 7: 29 AM EDT HC PROTHROMBIN TIME STAT 02/07/2020 7 :29 AM EDT HC CBC,PLT & AUTO DIFF STAT 0 7:29 AM EDT HC TROPONIN T STAT 02/07/2020 7:29 AM EDT HC THYROID STIMULATING HORMONE, SERUM Routine 02/07/2020 7:29 AM EDT HC PROBNP Routine 02/07/2020 7:29 AM EDT LIPASE STAT 02/07/2020 7:29 AM EDT HEMOGLOBIN A1C STAT 02/07/2020 7:29 AM EDT HEPATIC FUNCTION PANEL STAT 0 7:29 AM EDT LIPID PANEL (REFLEX DIRECT LDL) STAT 02/07/2020 7:29 AM EDT EKG 12-LEAD STAT 02/07/2020 6:33 AM EDT Non-ST elevation myocardial infarction (NSTEMI) documented in this encounter Results * (ABNORMAL) POCT Glucose (02/09/2020 6:55 AM EDT) [facility] POC Glucose 228(H) 65 - 199 mg/dL [facility] Comment: Supplemental ranges: <140 mg/dL before meals <180 mg/dL all other times of the day Blood specimen (specimen) 02/09/2020 6:55 AM EDT 02/09/2020 6:55 AM EDT Rell Gutierrez MD POINT OF CARE TEST O RDERABLES [facility] [place] [address] * Differential, Automated (02/09/2020 3:34 AM EDT) [facility] Neutrophils % 67.7 % [facility] Neutr Abs (ANC) 5.30 1.70 - 6.10 x10(3)/[facility] Lymphocytes % 20.9 % [facility] Lymphocytes Abs 1.6 0.9 - 3.2 x10(3)/[facility] Monocytes % 9.2 % [facility] Monocyte Abs 0.7 0.3 - 0.9 x10(3)/[facility] Eosinophils % 1.5 % [facility] Eosinophils Abs 0.1 0.0 - 0.4 x10(3)/[facility] Basophils % 0.4 % [facility] Basophils Abs 0.0 0.0 - 0.1 x10(3)/[facility] Immature Gran % 0.30 % [facility] Comment: Immature granulocytes(IG's)percentage and absolute count will include metamyelocytes, myelocytes, and promyelocytes. Blood smears from CBCs yielding IG's will be scanned manually for concordance. If this scan disagrees with the automated IG or if promyelocytes are noted, a manual differential will be performed. Lorraine Gran Abs 0.02 0.00 - 0.04 x10(3)/[facility] Blood specimen (specimen) 02/09/2020 3:34 AM EDT 02/09/2020 3:42 AM EDT Narrative Resulting Agency Comment Spec In Lab Maria Bolaños MD HEMATOLOGY ORDERABLE S [facility] [place] [address] * (ABNORMAL) Hemogram (02/09/2020 3:34 AM EDT) WBC 7.8 4.0 - 9.5 x10(3)/[facility] RBC 5.11 4.00 - 5.21 x10(6)/[facility] Hemoglobin 13.5 11.7 - 15.5 gm/dL [facility] Hematocrit 42.8 35.7 - 45.8 % [facility] MCV 83.8 82.6 - 94.4 fL [facility] MCH 26.4(L) 27.1 - 32.0 pg [facility] MCHC 31.5(L) 31.7 - 35.0 gm/dL [facility] Platelets 168 145 - 357 x10(3)/[facility] RDWSD 43.8 37.0 - 46.0 fL [facility] RDWCV 14.3(H) 11.5 - 14.1 % [facility] MPV 11.5 7.6 - 12.9 [facility]ORY nRBC % Auto 0.0 % [facility] nRBC Abs Auto 0.000 0.000 - 0.000 x10(3)/[facility] Blood specimen (specimen) 02/09/2020 3:34 AM EDT 02/09/2020 3:42 AM EDT Narrative Resulting Agency Comment Spec In Lab Maria Bolaños MD HEMATOLOGY ORDERABLE S Performing Organization Address [facility] [place] [address] * Phosphorus (02/09/2020 3:34 AM EDT) Phosphorus 2.8 2.5 - 4.5 mg/dL [facility] Blood specimen (specimen) 02/09/2020 3:34 AM EDT 02/09/2020 3:42 AM EDT Narrative Resulting Agency Comment Spec In Lab Rell Gutierrez MD CHEMISTRY ORDERABLES Performing Organization Address [facility] Co de Phone Number [facility] [place] [address] * Magnesium (02/09/2020 3:34 AM EDT) Magnesium 0.93 0.69 - 1.07 mmol/L [facility] Blood specimen (specimen) 02/09/2020 3:34 AM EDT 02/09/2020 3:42 AM EDT Narrative Resulting Agency Comment Spec In Lab Rell Gutierrez MD CHEMISTRY ORDERABLES Performing Organization Address [facility] Co de Phone Number [facility] [place] [address] * (ABNORMAL) Basic Metabolic Panel (non-fasting) (02/09/2020 3:34 AM EDT) Glucose Lvl 249(H) 65 - 199 mg/dL [facility] Comment:Diabetes: >=200 mg/d L plus symptoms BUN 12 8 - 18 mg/dL [facility] Creatinine 0.78 0.70 - 1.20 mg/dL [facility] Sodium 138 135 - 145 mmol/L [facility] Potassium 3.8 3.5 - 5.0 mmol/L [facility] Comment: Please note: ??Patients with WBC >100,000 may have falsely elevated Potassium levels. ??For accurate Potassium quantification in these patients send serum separator tube (gold top) for subsequent determinations. ??Contact the Clinical Chemistry Laboratory if there are any questions. Chloride 100 98 - 107 mmol/L [facility] CO2 29 22 - 31 mmol/L [facility] Anion Gap 9 5 - 15 mmol/L [facility] Calcium 8.0(L) 8.5 - 10.5 mg/dL [facility] Estimated GFR 84 >=60 mL/min/1. 73 m?? [facility] Comment: The eGFR was calculated using the CKD-EPI equation. As with all creatinine based estimates of kidney function, eGFR values calculated with the CKD-EPI equation are not accurate in patients with acute kidney failure, extremes of body mass or the acutely ill. [email or web address] [place]nk[place] eGFR 97 >=60 mL/min/1. 73 m?? [facility] Comment: The eGFR was calculated using the CKD-EPI equation. As with all creatinine based estimates of kidney function, eGFR values calculated with the CKD-EPI equation are not accurate in patients with acute kidney failure, extremes of body mass or the acutely ill. [email or web address] Blood specimen (specimen) 02/09/2020 3:34 AM EDT 02/09/2020 3:42 AM EDT Narrative Resulting Agency Comment Spec In Lab Rell Gutierrez MD CHEMISTRY ORDERABLES Performing Organization Address [facility] Co de Phone Number [facility] [place] [address] * POCT Glucose (02/08/2020 8:56 PM EDT) POC Glucose 145 65 - 199 mg/dL [facility] Comment: Supplemental ranges: <140 mg/dL before meals <180 mg/dL all other times of the day Blood specimen (specimen) 02/08/2020 8:56 PM EDT 02/08/2020 8:56 PM EDT Rell Gutierrez MD POINT OF CARE TEST O RDERABLES Performing Organization Address [facility] de Phone Number [facility] [place] [address] * POCT Glucose (02/08/2020 4:52 PM EDT) POC Glucose 144 65 - 199 mg/dL [facility] Comment: Supplemental ranges: <140 mg/dL before meals <180 mg/dL all other times of the day Blood specimen (specimen) 02/08/2020 4:52 PM EDT 02/08/2020 4:52 PM EDT Rell Gutierrez MD POINT OF CARE TEST O RDERABLES Performing Organization Address [facility] Co de Phone Number [facility] [place] [address] * (ABNORMAL) POCT Glucose (02/08/2020 12:35 PM EDT) POC Glucose 235(H) 65 - 199 mg/dL [facility] Comment: Supplemental ranges: <140 mg/dL before meals <180 mg/dL all other times of the day Blood specimen (specimen) 02/08/2020 12:35 PM EDT 02/08/2020 12:35 PM EDT Rell Gutierrez MD POINT OF CARE TEST O RDERABLES Performing Organization Address [facility] Co de Phone Number [facility] [place] [address] * (ABNORMAL) POCT Glucose (02/08/2020 9:38 AM EDT) POC Glucose 296(H) 65 - 199 mg/dL [facility] Comment: Supplemental ranges: <140 mg/dL before meals <180 mg/dL all other times of the day Blood specimen (specimen) 02/08/2020 9:38 AM EDT 02/08/2020 9:38 AM EDT Rell Gutierrez MD POINT OF CARE TEST O RDERATRAY Performing Organization Address [facility] de Phone Number [facility] [place] [address] * (ABNORMAL) POCT Glucose (02/08/2020 7:35 AM EDT) POC Glucose 241(H) 65 - 199 mg/dL [facility] Comment: Supplemental ranges: <140 mg/dL before meals <180 mg/dL all other times of the day Blood specimen (specimen) 02/08/2020 7:35 AM EDT 02/08/2020 7:35 AM EDT Rell Gutierrez MD POINT OF CARE TEST O RDERABLES Performing Organization Address [facility] Co de Phone Number [facility] [place] [address] * Differential, Automated (02/08/2020 4:01 AM EDT) Neutrophils % 68.7 % [facility] Neutr Abs (ANC) 5.45 1.70 - 6.10 x10(3)/mcL [facility] Lymphocytes % 21.1 % [facility] Lymphocytes Abs 1.7 0.9 - 3.2 x10(3)/[facility] Monocytes % 8.6 % [facility] Monocyte Abs 0.7 0.3 - 0.9 x10(3)/[facility] Eosinophils % 0.8 % [facility] Eosinophils Abs 0.1 0.0 - 0.4 x10(3)/[facility] Basophils % 0.4 % [facility] Basophils Abs 0.0 0.0 - 0.1 x10(3)/[facility] Immature Gran % 0.40 % [facility] Comment: Immature granulocytes(IG's)percentage and absolute count will include metamyelocytes, myelocytes, and promyelocytes. Blood smears from CBCs yielding IG's will be scanned manually for concordance. If this scan disagrees with the automated IG or if promyelocytes are noted, a manual differential will be performed. Lorraine Gran Abs 0.03 0.00 - 0.04 x10(3)/[facility] Blood specimen (specimen) 02/08/2020 4:01 AM EDT 02/08/2020 4:06 AM EDT Narrative Resulting Agency Comment Spec In Lab Kayleigh Crook MD HEMATOLOGY ORDERABLE S [facility] [place] [address] * (ABNORMAL) Hemogram (02/08/2020 4:01 AM EDT) WBC 7.9 4.0 - 9.5 x10(3)/[facility] RBC 5.11 4.00 - 5.21 x10(6)/[facility] Hemoglobin 13.5 11.7 - 15.5 gm/dL [facility] Hematocrit 42.6 35.7 - 45.8 % [facility] MCV 83.4 82.6 - 94.4 fL [facility] MCH 26.4(L) 27.1 - 32.0 pg [facility] MCHC 31.7 31.7 - 35.0 gm/dL [facility] Platelets 189 145 - 357 x10(3)/[facility] RDWSD 43.5 37.0 - 46.0 fL [facility] RDWCV 14.3(H) 11.5 - 14.1 % [facility] MPV 11.2 7.6 - 12.9 fL [facility] nRBC % Auto 0.0 % [facility] nRBC Abs Auto 0.000 0.000 - 0.000 x10(3)/[facility] Blood specimen (specimen) 02/08/2020 4:01 AM EDT 02/08/2020 4:06 AM EDT Narrative Resulting Agency Comment Spec In Lab Kayleigh Crook MD HEMATOLOGY ORDERABLE S [facility] [place] [address] * (ABNORMAL) Phosphorus (02/08/2020 4:01 AM EDT) Phosphorus 1.9(L) 2.5 - 4.5 mg/dL [facility] Blood specimen (specimen) 02/08/2020 4:01 AM EDT 02/08/2020 4:06 AM EDT Narrative Resulting Agency Comment Spec In Lab Rell Gutierrez MD CHEMISTRY ORDERABLES [facility] [place] [address] * Magnesium (02/08/2020 4:01 AM EDT) Magnesium 0.91 0.69 - 1.07 mmol/L [facility] Blood specimen (specimen) 02/08/2020 4:01 AM EDT 02/08/2020 4:06 AM EDT Narrative Resulting Agency Comment Spec In Lab Rell Gutierrez MD CHEMISTRY ORDERABLES [facility] [place] [address] * (ABNORMAL) Basic Metabolic Panel (non-fasting) (02/08/2020 4:01 AM EDT) Glucose Lvl 247(H) 65 - 199 mg/dL [facility] Comment:Diabetes: >=200 mg/d L plus symptoms BUN 8 8 - 18 mg/dL [facility] Creatinine 0.66(L) 0.70 - 1.20 mg/dL [facility] Sodium 138 135 - 145 mmol/L [facility] Potassium 4.4 3.5 - 5.0 mmol/L [facility] Comment: Please note: ??Patients with WBC >100,000 may have falsely elevated Potassium levels. ??For accurate Potassium quantification in these patients send serum separator tube (gold top) for subsequent determinations. ??Contact the Clinical Chemistry Laboratory if there are any questions. Chloride 102 98 - 107 mmol/L [facility] CO2 27 22 - 31 mmol/L [facility] Anion Gap 9 5 - 15 mmol/L [facility] Calcium 7.9(L) 8.5 - 10.5 mg/dL [facility] Estimated GFR 97 >=60 mL/min/1. 73 m?? [facility] Comment: The eGFR was calculated using the CKD-EPI equation. As with all creatinine based estimates of kidney function, eGFR values calculated with the CKD-EPI equation are not accurate in patients with acute kidney failure, extremes of body mass or the acutely ill. [email or web address] eGFR 113 >=60 mL/min/1. 73 m?? [facility] Comment: The eGFR was calculated using the CKD-EPI equation. As with all creatinine based estimates of kidney function, eGFR values calculated with the CKD-EPI equation are not accurate in patients with acute kidney failure, extremes of body mass or the acutely ill. [email or web address] Blood specimen (specimen) 02/08/2020 4:01 AM EDT 02/08/2020 4:06 AM EDT Narrative Resulting Agency Comment Spec In Lab Rell Gutierrez MD CHEMISTRY ORDERABLES Performing Organization Address [facility] Co de Phone Number [facility] [place] [address] * Potassium (02/07/2020 8:55 PM EDT) Potassium 3.7 3.5 - 5.0 mmol/L [facility] Comment: Please note: ??Patients with WBC >100,000 may have falsely elevated Potassium levels. ??For accurate Potassium quantification in these patients send serum separator tube (gold top) for subsequent determinations. ??Contact the Clinical Chemistry Laboratory if there are any questions. Blood specimen (specimen) 02/07/2020 8:55 PM EDT 02/07/2020 9:03 PM EDT Narrative Resulting Agency Comment Spec In Lab Rell Gutierrez MD CHEMISTRY ORDERABLES Performing Organization Address [facility] Co de Phone Number [facility] [place] [address] * POCT Glucose (02/07/2020 8:48 PM EDT) POC Glucose 183 65 - 199 mg/dL [facility] Comment: Supplemental ranges: <140 mg/dL before meals <180 mg/dL all other times of the day Blood specimen (specimen) 02/07/2020 8:48 PM EDT 02/07/2020 8:48 PM EDT Rell Gutierrez MD POINT OF CARE TEST O RDERABLES Performing Organization Address City/[facility]/ZIP Co de Phone Number [facility] [place] [address] * Potassium (02/07/2020 5:10 PM EDT) Potassium 4.0 3.5 - 5.0 mmol/L [facility] Comment: Please note: ??Patients with WBC >100,000 may have falsely elevated Potassium levels. ??For accurate Potassium quantification in these patients send serum separator tube (gold top) for subsequent determinations. ??Contact the Clinical Chemistry Laboratory if there are any questions. Blood specimen (specimen) 02/07/2020 5:10 PM EDT 02/07/2020 5:28 PM EDT Narrative Resulting Agency Comment Spec In Lab Rell Gutierrez MD CHEMISTRY ORDERABLES [facility] [place] [address] * (ABNORMAL) Troponin (02/07/2020 5:10 PM EDT) Troponin-T 0.27(H) 0.00 - 0.00 ng/mL [facility] Comment: The 99th percentile for Troponin T is less than 0.01 ng/mL, any detectable cTnT concentration using this assay should be considered elevated. According to the third universal definition of myocardial infarction the following criteria with a clinical presentation consistent with acute myocardial ischemia meets the diagnosis for a myocardial infarction (PA). Detection of a rise and/or fall of cTnT, with at least one value greater than the 99th percentile (> or = 0.01) and with at least one of the following ?? Symptoms of ischemia ?? New or presumed new significant ZR-rlskdwi-N wave (ST-T) changes or new left bundle branch block (LBBB) ?? Development of pathologic Q waves in the ECG ?? Imaging evidence of new loss of viable myocardium or new regional wall motion abnormality ?? Identification of an intracoronary thrombus by angiography or autopsy Samples for cTnT testing should be obtained serially upon first assessment and again 3 to 6 hours later. If the clinical suspicion is high and previous samples have been negative an additional sample may be indicated. Reference: Third [place] Definition of Myocardial Infarction. Journal of the [place] [employer] 2012;60:1581-98 Blood specimen (specimen) 02/07/2020 5:10 PM EDT 02/07/2020 5:28 PM EDT Narrative Resulting Agency Comment Spec In Lab Vik Justin MD CHEMISTRY ORDER TOBI [facility] [place] [address] * XR Chest One View (02/07/2020 5:07 PM EDT) Anatomical Region Laterality Modality Chest N/A Digital Radiogra phy Impressions 02/08/2020 3:54 AM EDT Similar pattern of mild vascular congestive changes in the setting of intra-aortic pump. Thank you for letting us participate in the care of this patient. For questions regarding this report, please contact the number below. ? Narrative 02/08/2020 3:54 AM EDT EXAMINATION: XR CHEST ONE VIEW CLINICAL HISTORY: s/p IABP TECHNIQUE: 1 view of the chest COMPARISON: 02/07/2020 at 0941 hours FINDINGS: Stable location of intra-aortic balloon pump with distal end projecting in the distal aortic arch. Similar appearance of minimal linear opacity at the left lower lung zone laterally. There is otherwise clear appearance of the lungs. Similar pattern of mild congestive changes seen with mild cephalization, bronchial wall thickening and vascular marginal blurring Procedure Note Trace Lopez MD - 02/08/2020 EXAMINATION: XR CHEST ONE VIEW CLINICAL HISTORY: s/p IABP TECHNIQUE: 1 view of the chest COMPARISON: 02/07/2020 at 0941 hours FINDINGS: Stable location of intra-aortic balloon pump with distal end projecting inthe distal aortic arch. Similar appearance of minimal linear opacity at the left lower lung zone laterally. There is otherwise clear appearance of the lungs. Similarpattern of mild congestive changes seen with mild cephalization, bronchial wallthickening and vascular marginal blurring IMPRESSION Similar pattern of mild vascular congestive changes in the setting of intra-aortic pump. Thank you for letting us participate in the care of this patient. Forquestions regarding this report, please contact the number below. Rell Gutierrez MD IMG DX ORDERABLES * POCT Glucose (02/07/2020 4:21 PM EDT) POC Glucose 139 65 - 199 mg/dL [facility] Comment: Supplemental ranges: <140 mg/dL before meals <180 mg/dL all other times of the day Blood specimen (specimen) 02/07/2020 4:21 PM EDT 02/07/2020 4:21 PM EDT Rell Gutierrez MD POINT OF CARE TEST O RDERABLES [facility] [place] [address] * CARDIAC CATHETERIZATION (02/07/2020 3:21 PM EDT) Anatomical Region Laterality Modality Other Narrative 02/07/2020 4:29 PM EDT ?[facility] ? Cardiac Catheterization/Intervention Report ? Patient Name: Danielle Mills ? Procedure Date: 02/07/2020 ? A #: [id number] ? Primary Physician: Jose, Todd T ? Case #: [id number] ? File Name: [id number] ? Catheterization Order Number: [id number] ? [facility] ? Final Report [place], [place] ? Patient Name: ? Danielle Jarrett ? ID#: ?[id number] ? : ?1960 ? Procedure Date: ? February 07, 2020 ? Case #: ? [id number] ? Room: ? 6 ? Case Physician: ? Todd Garcia M.D. ?Start: ?14:09 ?Fellow: ? David Vigil M.D. ?Admission: ??02/07/2020 ? Discharge: ??02/09/2020 ? Procedures: ?* Coronary Angiography ?* Coronary Stent Insertion ?* Vascular Closure Device Deployment ?* Access Site Angiography ? History ?Danielle Mills is a 59 year old woman. She has hypertension and a family ?history of coronary artery disease. The patient's smoking status is ?Current with Current - Every Day frequency, using cigarettes. Cigarette ?use is Heavy (>=10/day). She has hypercholesterolemia. The patient has ?diabetes managed by diet and oral medication. She is status post an acute ?non-ST elevation myocardial infarction. The patient has a history of an ?ejection fraction less than or equal to 35%. She has a history of CHF. ?The CHF is NYHA Functional Class III, is newly diagnosed and is ?classified as Systolic. She also has a history of chronic obstructive ?pulmonary disease. Prior to the initiation of this procedure, the patient ?was designated as ASA Class III. The CSHA clinical frailty scale is 5: ?Mildly Frail. ? Diagnostic Tests: ?Prior Coronary Angiography: ? LV ejection fraction within 6 months is 30%. ?Electrocardiography: ? EKG was assessed by ECG. EKG was Abnormal. EKG showed T-wave ? inversions and other abnormality. ?Medications Prior to Procedure: ? Aspirin, Beta Fernando and Statin. ? Indications for Diagnostic Cath: ?The priority of the diagnostic procedure was Urgent. 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 Chest pain symptom assessment ?was: Non-anginal Chest Pain. Ventricular support was supplied with ?mechanical support with Intra-aortic balloon pump (IABP) In place at ?start of procedure. ? Technique: ?A 7Fr sheath was inserted in the left femoral artery utilizing the ?Seldinger technique. The left coronary artery was injected utilizing a ?7Fr EBU 3.5 catheter. Coronary stent insertion was performed and the ?equipment utilized will be described in the intervention summary section. ?7,000 units of heparin were administered. A total of 300cc of Omnipaque ?were opened, 210cc of Omnipaque were administered and 90cc of Omnipaque ?were wasted. Radiation: Fluoro time was 15.8 minutes, dose area product ?was 10,600 mGYcm2 and air kerma was 1,280 mGY. See the case log for ?additional details. ?The patient received the following medications prior to and during the ?procedure: ? Unfractionated Heparin. ? Hemodynamics: ?Left Heart Pressures ? Resting: ? Syst Diast ? EDP ?a ?v ? m ?Ao 135 ?? 74 ?88 ? Coronary Angiography: ?Dominance: Left ?Left Main ? There was mild diffuse (<=25% stenosis) disease of the entire vessel ? segment of the left main artery. ?Left Anterior Descending ? There was a 90% stenosis of the proximal segment of the left ? anterior descending artery (LAD). ??The mid segment of the LAD had a ? single discrete 40% stenosis. ?Left Circumflex ? There was mild diffuse (<=25% stenosis) disease of the entire vessel ? segment of the left circumflex artery (LCX). ? There was a 90% stenosis of the proximal segment of the first left ? posterolateral branch (LPL1) of the LCX. ? There was a 90% stenosis of the proximal segment of the left ? posterior descending branch (LPDA) of the LCX. ?Right Coronary Artery ? This vessel was not injected. ? Known occluded from earlier angiogram. ? Indication for Intervention: ?Coronary intervention was indicated for primary therapy for an acute ?myocardial infarction. The priority for the procedure was Emergent. The ?NCDR indication for the procedure was NSTE-ACS. LVEF within one week was ?55%. Syntax Score was Intermediate. Staged PCI was performed for ?multivessel disease. PCI is performed after surgical consult and Surgery ?Not Recommended. ? Intervention Summary: ?Left Anterior Descending Artery ? Proximal 90% ? Stent insertion was performed on the 90% stenosis in the ? proximal segment of the LAD. This was a de maricarmen lesion. ? According to the ACC/AHA classification system, this lesion ? was a type B2 high risk lesion. Primary prevention of ? restenosis was the indication for stent insertion. This was ? the culprit lesion. A guidewire was placed across this lesion. ? Vessel flow pre intervention was DENIA 2. Lesion length was ? 15mm. ? Stent insertion was accomplished through a 7 Fr. XB 3.5 guide. ?The lesion was predilated with a 2.50mm EUPHORA 12 MM balloon ? with a maximum inflation pressure of 14 atmospheres. ??A ? premounted 3.50 x 18 mm Resolute EZEQUIEL (JEANETH) was deployed with ? a maximum inflation pressure of 18 atmospheres. ??Following ? stent deployment, the lesion was dilated using a 3.50mm NC ? EUPHORA 15 MM balloon with a maximum inflation pressure of 22 ? atmospheres. ? The final outcome was defined as successful. The residual ? stenosis following this intervention was 5%. The final DENIA ? flow was 3. ?First Left Posterolateral Branch of the LCX ? Proximal 90% ? Stent insertion was performed on the 90% stenosis in the ? proximal segment of the LPL1. This was a de maricarmen lesion. This ? lesion was designated a type C high risk lesion based on ? ACC/AHA classification system. Primary prevention of ? restenosis was the indication for stent insertion. This was ? the culprit lesion. A guidewire was placed across this lesion. ? Vessel flow pre intervention was DENIA 3. Lesion length was ? 18mm. The lesion involves a bifurcation with the LPDA. This ? bifurcation lesion was treated with a two stent, crush or ? mini-crush technique and a final kissing balloon ? post-dilation. ? Stent insertion was accomplished through a XB 3.5 guide. ??The ? lesion was predilated with a 2.00mm EUPHORA 15 MM balloon with ? a maximum inflation pressure of 15 atmospheres. ??A premounted ? 2.50 x 18 mm Resolute EZEQUIEL ??(JEANETH) was deployed with a maximum ? inflation pressure of 16 atmospheres. ??Following stent ? deployment, the lesion was dilated using a 3.00mm EUPHORA 15 ? MM balloon with a maximum inflation pressure of 16 ? atmospheres. ? The final outcome was defined as successful. The residual ? stenosis following this intervention was 5%. The final DENIA ? flow was 3. ?Left Posterior Descending Branch of the LCX ? Proximal 90% ? Stent insertion was performed on the 90% stenosis in the ? proximal segment of the LPDA. This was a de maricarmen lesion. ? According to the ACC/AHA classification system, this lesion ? was a type C high risk lesion. Primary prevention of ? restenosis was the indication for stent insertion. This was ? the culprit lesion. A guidewire was placed across this lesion. ? Vessel flow pre intervention was DENIA 3. Lesion length was ? 22mm. ? Stent insertion was accomplished through a 7 Fr. XB 3.5 guide. ?The lesion was predilated with a 2.00mm EUPHORA 20 MM balloon ? with a maximum inflation pressure of 20 atmospheres. ??A ? premounted 2.50 x 26 mm Resolute EZEQUIEL (JEANETH) was deployed with ? a maximum inflation pressure of 20 atmospheres. ??Following ? stent deployment, the lesion was dilated using a 2.00mm ? EUPHORA 15 MM balloon with a maximum inflation pressure of 16 ? atmospheres. ? The final outcome was defined as successful. The residual ? stenosis following this intervention was 5%. The final DENIA ? flow was 3. ? Vascular Access: ?Vascular Access Angiogram: ? A selective angiogram at the left femoral artery revealed mild ? diffuse disease. ?Vascular Access Management: ? A 6 Fr Perclose was deployed at the left femoral artery access site. ? Dual Antiplatelet (DAPT) Recommendations: ?Drug eluting stent (JEANETH) inserted. ?P2Y12 Loading dose administered prior to arrival in the mill labor supervisor. ?Recommended anti-platelet/anti-thrombotic regimen: ?Start aspirin 81 mg daily now and continue for indefinitely. ?Start clopidogrel 75 mg daily now and continue for 12 months then stop. ?These recommendations are made at the time of the intervention. Patient ?and provider preferences or a changing clinical situation may require ?modification of this regimen. Consult [facility] Interventional Cardiology for ?questions. ?The 1 year bleeding risk as calculated by the PRECISE DAPT score is Very ?low risk. ?This patient has a high DAPT score and may benefit from prolonged (12-30 ?months) dual antiplatelet therapy. If the patient has completed 12 months ?of DAPT without having a major bleeding or ischemic event and the patient ?is NOT on chronic anticoagulation. This should be used for guidance in ?the overall conversation about prolonged dual antiplatelet therapy and ?not as a recommendation for or against any medical treatment. Consult ?http://tools.acc.org/DAPTriskapp/#!/content/calculator/ or [facility] ?Interventional Cardiology for questions. ? Conclusions: ?* Obstructive disease of the LAD and LCX ?* Nonobstructive disease of the LM ?* Successful stent insertion of the proximal LAD lesion ?* Successful stent insertion of the proximal LPL1 lesion ?* Successful stent insertion of the proximal LPDA lesion ?* See Dual Antiplatelet (DAPT) Recommendations above. ? Complications/Events: ?The patient had no complications during these procedures. ? Recommendations: ?Based upon the results of this procedure, it was recommended that medical ?therapy be considered. ?The attending physician was present for the entire procedure. ?Dr. Todd Garcia M.D. was present during the moderate sedation ?intraservice time as documented by the sedation nurse. ??Case time = 01:21. ?Dr. Todd Garcia M.D. performed the coronary angiography, stent ?insertion-coronary, access site angiography and vascular closure device. ? Todd Garcia, M.D. ? Electronically Signed by: Todd Garcia, M.D. ? Report Finalized: 02/07/2020 ??16:24 ? Report Last Ammended: 03/23/2020 ??13:04 ? Procedure Note Todd Garcia MD - 03/23/2020 [facility] Cardiac Catheterization/Intervention Report Patient Name: Danielle Mills Procedure Date: 02/07/2020 A #: [id number] Primary Physician: Todd Garcia Case #: [id number] File Name: [id number] Catheterization Order Number: [id number] [facility] FinalReport [place], [place] Patient Name: Danielle Mills ID#:[id number] :[id number] Procedure Date: February 07, 2020 Case #: [id number] Room: 6 Case Physician: Todd Garcia M.D. Start: 14:09 Fellow: David Vigil M.D. Admission:02/07/2020 Discharge:02/09/2020 Procedures: * Coronary Angiography * Coronary Stent Insertion * Vascular Closure Device Deployment * Access Site Angiography History Danielle Mills is a 59 year old woman. She has hypertension and afamily history of coronary artery disease. The patient's smoking status is Current with Current - Every Day frequency, using cigarettes.Cigarette use is Heavy (>=10/day). She has hypercholesterolemia. The patienthas diabetes managed by diet and oral medication. She is status post anacute non-ST elevation myocardial infarction. The patient has a history ofan ejection fraction less than or equal to 35%. She has a history ofCHF. The CHF is NYHA Functional Class III, is newly diagnosed and is classified as Systolic. She also has a history of chronicobstructive pulmonary disease. Prior to the initiation of this procedure, thepatient was designated as ASA Class III. The [facility] clinical frailty scale is5: Mildly Frail. Diagnostic Tests: Prior Coronary Angiography: LV ejection fraction within 6 months is 30%. Electrocardiography: EKG was assessed by ECG. EKG was Abnormal. EKG showed T-wave inversions and other abnormality. Medications Prior to Procedure: Aspirin, Beta Fernando and Statin. Indications for Diagnostic Cath: The priority of the diagnostic procedure was Urgent. 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 Chest pain symptomassessment was: Non-anginal Chest Pain. Ventricular support was supplied with mechanical support with Intra-aortic balloon pump (IABP) In place at start of procedure. Technique: A 7Fr sheath was inserted in the left femoral artery utilizing the Seldinger technique. The left coronary artery was injected utilizinga 7Fr EBU 3.5 catheter. Coronary stent insertion was performed and the equipment utilized will be described in the intervention summarysection. 7,000 units of heparin were administered. A total of 300cc ofOmnipaque were opened, 210cc of Omnipaque were administered and 90cc ofOmnipaque were wasted. Radiation: Fluoro time was 15.8 minutes, dose areaproduct was 10,600 mGYcm2 and air kerma was 1,280 mGY. See the case log for additional details. The patient received the following medications prior to and duringthe procedure: Unfractionated Heparin. Hemodynamics: Left Heart Pressures Resting: Syst Diast EDP a v m Ao 135 74 88 Coronary Angiography: Dominance: Left Left Main There was mild diffuse (<=25% stenosis) disease of the entirevessel segment of the left main artery. Left Anterior Descending There was a 90% stenosis of the proximal segment of the left anterior descending artery (LAD). The mid segment of the LADhad a single discrete 40% stenosis. Left Circumflex There was mild diffuse (<=25% stenosis) disease of the entirevessel segment of the left circumflex artery (LCX). There was a 90% stenosis of the proximal segment of the firstleft posterolateral branch (LPL1) of the LCX. There was a 90% stenosis of the proximal segment of the left posterior descending branch (LPDA) of the LCX. Right Coronary Artery This vessel was not injected. Known occluded from earlier angiogram. Indication for Intervention: Coronary intervention was indicated for primary therapy for an acute myocardial infarction. The priority for the procedure was Emergent.The [facility] indication for the procedure was NSTE-ACS. LVEF within one weekwas 55%. Syntax Score was Intermediate. Staged PCI was performed for multivessel disease. PCI is performed after surgical consult andSurgery Not Recommended. Intervention Summary: Left Anterior Descending Artery Proximal 90% Stent insertion was performed on the 90% stenosis in the proximal segment of the LAD. This was a de maricarmen lesion. According to the ACC/AHA classification system, thislesion was a type B2 high risk lesion. Primary prevention of restenosis was the indication for stent insertion. Thiswas the culprit lesion. A guidewire was placed across thislesion. Vessel flow pre intervention was DENIA 2. Lesion lengthwas 15mm. Stent insertion was accomplished through a 7 Fr. XB 3.5guide. The lesion was predilated with a 2.50mm EUPHORA 12 MMballoon with a maximum inflation pressure of 14 atmospheres. A premounted 3.50 x 18 mm Resolute EZEQUIEL (JEANETH) was deployedwith a maximum inflation pressure of 18 atmospheres.Following stent deployment, the lesion was dilated using a 3.50mmNC EUPHORA 15 MM balloon with a maximum inflation pressureof 22 atmospheres. The final outcome was defined as successful. The residual stenosis following this intervention was 5%. The finalTIMI flow was 3. First Left Posterolateral Branch of the LCX Proximal 90% Stent insertion was performed on the 90% stenosis in the proximal segment of the LPL1. This was a de maricarmen lesion.This lesion was designated a type C high risk lesion based on ACC/AHA classification system. Primary prevention of restenosis was the indication for stent insertion. Thiswas the culprit lesion. A guidewire was placed across thislesion. Vessel flow pre intervention was DENIA 3. Lesion lengthwas 18mm. The lesion involves a bifurcation with the LPDA.This bifurcation lesion was treated with a two stent, crush or mini-crush technique and a final kissing balloon post-dilation. Stent insertion was accomplished through a XB 3.5 guide.The lesion was predilated with a 2.00mm EUPHORA 15 MM balloonwith a maximum inflation pressure of 15 atmospheres. Apremounted 2.50 x 18 mm Resolute EZEQUIEL (JEANETH) was deployed with amaximum inflation pressure of 16 atmospheres. Following stent deployment, the lesion was dilated using a 3.00mm [id number] MM balloon with a maximum inflation pressure of 16 atmospheres. The final outcome was defined as successful. The residual stenosis following this intervention was 5%. The finalTIMI flow was 3. Left Posterior Descending Branch of the LCX Proximal 90% Stent insertion was performed on the 90% stenosis in the proximal segment of the LPDA. This was a de maricarmen lesion. According to the ACC/AHA classification system, thislesion was a type C high risk lesion. Primary prevention of restenosis was the indication for stent insertion. Thiswas the culprit lesion. A guidewire was placed across thislesion. Vessel flow pre intervention was DENIA 3. Lesion lengthwas 22mm. Stent insertion was accomplished through a 7 Fr. XB 3.5guide. The lesion was predilated with a 2.00mm EUPHORA 20 MMballoon with a maximum inflation pressure of 20 atmospheres. A premounted 2.50 x 26 mm Resolute EZEQUIEL (JEANETH) was deployedwith a maximum inflation pressure of 20 atmospheres.Following stent deployment, the lesion was dilated using a 2.00mm EUPHORA 15 MM balloon with a maximum inflation pressureof 16 atmospheres. The final outcome was defined as successful. The residual stenosis following this intervention was 5%. The finalTIMI flow was 3. Vascular Access: Vascular Access Angiogram: A selective angiogram at the left femoral artery revealed mild diffuse disease. Vascular Access Management: A 6 Fr Perclose was deployed at the left femoral artery accesssite. Dual Antiplatelet (DAPT) Recommendations: Drug eluting stent (JEANETH) inserted. P2Y12 Loading dose administered prior to arrival in the mill labor supervisor. Recommended anti-platelet/anti-thrombotic regimen: Start aspirin 81 mg daily now and continue for indefinitely. Start clopidogrel 75 mg daily now and continue for 12 months thenstop. These recommendations are made at the time of the intervention.Patient and provider preferences or a changing clinical situation mayrequire modification of this regimen. Consult [facility] Interventional Cardiologyfor questions. The 1 year bleeding risk as calculated by the PRECISE DAPT score isVery low risk. This patient has a high DAPT score and may benefit from prolonged(12-30 months) dual antiplatelet therapy. If the patient has completed 12months of DAPT without having a major bleeding or ischemic event and thepatient is NOT on chronic anticoagulation. This should be used for guidancein the overall conversation about prolonged dual antiplatelet therapyand not as a recommendation for or against any medical treatment.Consult http://tools.acc.org/DAPTriskapp/#!/content/calculator/ or [facility] Interventional Cardiology for questions. Conclusions: * Obstructive disease of the LAD and LCX * Nonobstructive disease of the LM * Successful stent insertion of the proximal LAD lesion * Successful stent insertion of the proximal LPL1 lesion * Successful stent insertion of the proximal LPDA lesion * See Dual Antiplatelet (DAPT) Recommendations above. Complications/Events: The patient had no complications during these procedures. Recommendations: Based upon the results of this procedure, it was recommended thatmedical therapy be considered. The attending physician was present for the entire procedure. Dr. Todd Garcia M.D. was present during the moderate sedation intraservice time as documented by the sedation nurse. Case time =01:21. Dr. Todd Garcia M.D. performed the coronary angiography, stent insertion-coronary, access site angiography and vascular closuredevice. Todd Garcia M.D. Electronically Signed by: Todd Garcia M.D. Report Finalized: 02/07/2020 16:24 Report Last Ammended: 03/23/2020 13:04 Todd Garcia MD CARDIAC CATH ORDERAB LES * COVID-19 PCR (02/07/2020 12:30 PM EDT) Pathologist [facility] SARS-CoV-2 RNA PCR Not Detected Not Detected [facility] Comment: This result should be interpreted in combination with the clinical observations, patient history and epidemiological information. For testing of asymptomatic individuals, assay performance characteristics and clinical utility have not been evaluated. Testing for SARS-CoV-2 (Severe acute respiratory syndrome coronavirus 2, formerly known as 2019 novel coronavirus or 2019-nCoV) to aid in the diagnosis of COVID-19 is performed using the Simplexa COVID-19 Direct Assay by [employer] as authorized by the FDA issued Emergency Use Authorization (EUA). This assay is intended for In-vitro Diagnostic (IVD) use with nasopharyngeal swabs collected from individuals meeting the CDC criteria for testing. The assay is performed based on the instructions for use and additional guidance provided by the FDA. Testing is performed in the Microbiology Laboratory within the Department of Pathology and Laboratory Medicine at [facility], certified under the Clinical Laboratory Improvement Amendments of 1988 (CLIA), 42 U.S.C. section 263a, to perform high complexity tests. Assay performance has been verified according to clinical laboratory regulatory requirements. Test results are provided above. A result of Not Detected indicates that the viral RNA target is not present but does not preclude SARS-CoV-2 infection. False negative results may occur if a specimen is improperly collected, transported or handled; if amplification inhibitors are present; or if inadequate numbers of viral particles are present in the specimen. A result of Detected suggests a current or recent infection and the patient is presumed to be infected. Positive and negative predictive values for this test are highly dependent on disease prevalence. A result of Invalid indicates the inability to conclusively determine the presence or absence of SARS-CoV-2 RNA in the sample which can be due to a variety of factors. Recollection is recommended in the case of an invalid result. CDC COVID-19 criteria for testing on human specimens and clinical management guidance information are available at the CDC Coronavirus Disease 2019 (COVID-19) webpage under Information for Healthcare Professionals (https://www.cdc.gov/coronavirus/2019-ncov/hcp/index.html). SARS-CoV-2 Source [employer] Swab JAYME NORIEGA [facility] Nasopharyngeal swab (specimen) 02/07/2020 12:30 PM EDT 02/07/2020 12:59 PM EDT Comment:Symptoms->Surveillan ce Narrative Resulting Agency Comment Spec In Lab Vik Justin MD MICROBIOLOGY - GENERAL ORDERABLES [facility] [place] [address] * POCT Glucose (02/07/2020 10:58 AM EDT) POC Glucose 115 65 - 199 mg/dL [facility] Comment: Supplemental ranges: <140 mg/dL before meals <180 mg/dL all other times of the day Blood specimen (specimen) 02/07/2020 10:58 AM EDT 02/07/2020 10:58 AM EDT Rell Gutierrez MD POINT OF CARE TEST O RDERABLES [facility] [place] [address] * Lavender Tube HOLD (02/07/2020 10:55 AM EDT) Pathologist [facility] Lavender Hold Sample in lab. [facility] Blood specimen (specimen) Venous Draw / Unknown 02/07/2020 10:55 AM EDT 02/07/2020 11:16 AM EDT Kayleigh Crook MD HEMATOLOGY ORDERABLE S Performing Organization Address City/[facility]/ZIP Co de Phone Number [facility] [place] [address] * Phosphorus (02/07/2020 10:55 AM EDT) Phosphorus 3.0 2.5 - 4.5 mg/dL [facility] Blood specimen (specimen) 02/07/2020 10:55 AM EDT 02/07/2020 11:15 AM EDT Narrative Resulting Agency Comment Spec In Lab Rell Gutierrez MD CHEMISTRY ORDERABLES Performing Organization Address City/[facility]/ZIP Co de Phone Number [facility] [place] [address] * Magnesium (02/07/2020 10:55 AM EDT) Magnesium 1.00 0.69 - 1.07 mmol/L [facility] Blood specimen (specimen) 02/07/2020 10:55 AM EDT 02/07/2020 11:15 AM EDT Narrative Resulting Agency Comment Spec In Lab Rell Gutierrez MD CHEMISTRY ORDERABLES Performing Organization Address [facility] de Phone Number [facility] [place] [address] * Heparin (unfractionated) Level (02/07/2020 10:55 AM EDT) Heparin UFH Level 0.44 IU/mL [facility] Comment: Guidelines for therapeutic unfractionated heparin levels are summarized below. Heparin (Anti-Xa) levels should be determined in a plasma sample that has been drawn 6 hours after a dose change i.e., steady-state has been reached. DRUG ?Dosing Schedule ? Target Peak Steady-State ?Heparin (Anti-Xa) Levels (Units/mL) Unfractionated ?Continuous infusion ?0.3-0.7 Heparin ?0.3-0.6 for some neurology indications Blood specimen (specimen) 02/07/2020 10:55 AM EDT 02/07/2020 11:15 AM EDT Narrative Resulting Agency Comment Spec In Lab Vik Justin MD HEMATOLOGY EDEN LOPES Performing Organization Address [facility] Co de Phone Number [facility] [place] [address] * (ABNORMAL) Troponin (02/07/2020 10:55 AM EDT) Troponin-T 0.13(H) 0.00 - 0.00 ng/mL [facility] Comment: The 99th percentile for Troponin T is less than 0.01 ng/mL, any detectable cTnT concentration using this assay should be considered elevated. According to the third universal definition of myocardial infarction the following criteria with a clinical presentation consistent with acute myocardial ischemia meets the diagnosis for a myocardial infarction (PA). Detection of a rise and/or fall of cTnT, with at least one value greater than the 99th percentile (> or = 0.01) and with at least one of the following ?? Symptoms of ischemia ?? New or presumed new significant RV-hgbiocc-L wave (ST-T) changes or new left bundle branch block (LBBB) ?? Development of pathologic Q waves in the ECG ?? Imaging evidence of new loss of viable myocardium or new regional wall motion abnormality ?? Identification of an intracoronary thrombus by angiography or autopsy Samples for cTnT testing should be obtained serially upon first assessment and again 3 to 6 hours later. If the clinical suspicion is high and previous samples have been negative an additional sample may be indicated. Reference: Third [place] Definition of Myocardial Infarction. Journal of the [place] [employer] 2012;60:1581-98 Blood specimen (specimen) 02/07/2020 10:55 AM EDT 02/07/2020 11:15 AM EDT Narrative Resulting Agency Comment Spec In Lab Vik Justin MD CHEMISTRY ORDER TOBI [facility] [place] [address] * ECHO COMPLETE W CONTRAST (02/07/2020 10:46 AM EDT) EF 61 HEARTLAB SYSTEM Anatomical Region Laterality Modality Other 02/07/2020 Narrative 02/07/2020 1:49 PM EDT Procedure: ?Transthoracic Echocardiogram Patient: ?JARRETT Mcintosh ?(Age): 1960(59y) Med Rec#: ? [id number] ?Sex: ?F ? Site Loc: ? [facility] ?Ht / Wt: ??165(cm)/118(kg) Pt. Loc: ?CCU ? BSA: ?2.21 Study Date: ?? 02/07/2020 ?Pt. Type: Inpatient Tape: ? Referring: Rell Gutierrez ??([id number]) Referring: LISY Reading: Ruslan Mcfarlane ([id number]) Aircraft Cylinder Mechanic: Laura Brown Diagnosis: *Non-ST elevation (NSTEMI) myocardial infarction (I21.4) *1 vial Optison used, Obese, on IABP SUMMARY: 1. The left ventricular chamber size is normal. ??There is normal global left ventricular systolic function. ??The quantitative left ventricular ejection fraction by biplane Gross's method is 61%. ??There are left ventricular segmental wall motion abnormalities present at the apex as shown in the diagram below. 2. There is no LV apical thrombus (contrast administered). 3. The RV is normal in size and function. 4. No significant valvular abnormalities. 5. Other details as noted below. Findings ? : Study Quality: ? Technically limited Left Ventricle: ? The left ventricular chamber size is normal. ?Left ventricular wall thickness is normal. ?There is no evidence of LVOT obstruction. ?There is normal global left ventricular systolic function. ?The quantitative left ventricular ejection fraction by biplane Gross's method is 61%. ?There are left ventricular segmental wall motion abnormalities present, as shown in the diagram below. ?The left ventricular diastolic filling pattern is consistent with impaired LV relaxation. ?The ??basal inferoseptal, mid anteroseptal, mid inferoseptal, apical septal, and ??apical inferior wall segments are hypokinetic (score 2). ?The ??apical anterior, and ??apical lateral wall segments are akinetic (score 3). ?Overall wallmotion score index is ??1.56 Left Atrium: ? The left atrium is normal in size. ?No atrial septal defect is visualized. Right Ventricle: ? The right ventricle is normal in size. ?Right ventricular global systolic function is normal. ?No pulmonary hypertension is noted. ?The estimated pulmonary artery systolic pressure is 10.95 mmHg. ?The estimated right atrial pressure is 3 mmHg. Right Atrium: ? The right atrium appears normal. Aortic Valve: ? The aortic valve is trileaflet. The leaflets are thin with normal excursion. There is no aortic stenosis or regurgitation present. Mitral Valve: ? The mitral valve appears normal in structure and function. ?There is no evidence of mitral valve leaflet prolapse. ?There is trace mitral regurgitation present. Tricuspid Valve: ? The tricuspid valve appears normal in structure and function. ?There is trace tricuspid regurgitation present. Pulmonic Valve: ? The pulmonic valve appears normal in structure and function. Pericardium: ? The pericardium appears normal and there is no evidence of a pericardial effusion. Aorta: ? The aortic root is normal in size. ?The ascending aorta is normal in size. ?There is no evidence of coarctation of the aorta. Pulmonary Artery: ? The main pulmonary artery appears normal. Venous: ? The inferior vena cava appears normal in size. ?There is a greater than 50% respiratory change in the inferior vena cava dimension. Misc: ? Two-dimensional echo, spectral Doppler and color Doppler performed. Chambers 2D ?Value ?Units (Range) ? RVIDd ??Base ? 3.3 ?cm ? RVIDd ??Mid (AP) ? 3.1 ?cm ? IVSd (2D) ? 1.21 ? cm ? LVPWd (2D) ?1.07 ? cm ? IVS:LVPW ratio (2D) 1.13 ? ratio ? RWT (2D) ?0.5 ?ratio ? RWT PW (2D) ? 0.47 ? ratio ? LVIDd (2D) ?4.6 ?cm ? LVIDs (2D) ?3.22 ? cm ? LVIDd (2D) index ?2.08 ? cm/m2 ? LVIDs (2D) index ?1.46 ? cm/m2 ? LV FS (2D) ?30 ? % ? EF Josefina (2D) ?? 57.28 ?% ? Ao root diameter (2D2.7 ?cm (2.1 - 3.6) ? Ascending Ao ?3 ?cm (2 - 3.5) ? Volumes/Mass ?Value ?Units (Range) ? LA Area 4 CH ?14.8 ? cm2 (<21) ? RA AREA 4CH ? 11.7 ? cm2 ? LA ESV BP (MOD) inde16.92 ?ml/m2 ? LV ESV SP 4CH (MOD) 46 ? ml ? LV ESV SP 2CH (MOD) 43.9 ? ml ? LV EDV BP ? 118 ?ml ? LV ESV BP ? 45.4 ? ml ? LV EDV BP index ? 53.37 ?ml/m2 ? LV ESV BP index ? 20.53 ?ml/m2 ? BP EF (MOD) ? 61.53 ?% ? LV mass (2D) ?190.57 ? g ? LV mass (2D) index ??86.19 ?g/m2 ? Diastolic/Systolic Function ?Value ?Units (Range) ? MV E-wave Vmax ?0.61 ? m/sec ? MV deceleration adtt643 ?msec ? MV A-wave Vmax ?0.77 ? m/sec ? MV E:A ratio ?0.79 ? ratio ? LV septal e' Vmax ?? 0.07 ? m/sec ? LV lateral e' Vmax ??0.07 ? m/sec ? LV average e' Vmax ??0.07 ? m/sec ? LV E:e' septal ratio8.7 ?ratio ? LV E:e' lateral rati8.7 ?ratio ? LV average E:e' rati8.7 ?ratio ? Mitral Valve ?Value ?Units (Range) ? MV PHT ?42 ? msec ? MVA (PHT) ? 5.24 ? cm2 ? Tricuspid Valve ?Value ?Units (Range) ? TAPSE ? 2.4 ?cm ? RV lateral s' Vmax ??0.13 ? m/sec ? TR Vmax ? 1.41 ? m/sec ? TR peak gradient ?7.95 ? mmHg ? RAP ? 3 ?mmHg ? RVSP ?10.95 ?mmHg ? Measurement Trending Name ? 02/07/2020 ? RAP ?3 RVSP ? 10.95 BP EF (MOD) ?61.53 Wall Motion: Segment Name ?Rest ? Base-Anteroseptal ?? Normal ? Base-Anterior ? Normal ? Base-Anterolateral ??Normal ? Base-Posterolateral Normal ? Base-Inferior ? Normal ? Base-Inferoseptal ?? Hypokinetic ? Mid-Anteroseptal ?Hypokinetic ? Mid-Anterior ?Normal ? Mid-Anterolateral ?? Normal ? Mid-Posterolateral ??Normal ? Mid-Inferior ?Normal ? Mid-Inferoseptal ?Hypokinetic ? [place]-Septal ? Hypokinetic ? [place]-Anterior ? Akinetic ? [place]-Lateral ?Akinetic ? [place]-Inferior ? Hypokinetic ? [place]-Tip ?Akinetic ? This report has been electronically signed by: Ruslan Mcfarlane MD ? 02/07/2020 13:49:14 Images reviewed and interpretation verified [facility] Procedure Note Ruslan Mcfarlane MD - 02/07/2020 Procedure: Transthoracic Echocardiogram Patient: JARRETT BUSTILLO(Age): 1960(59y) Med Rec#: [id number] Sex: F Site Loc: [facility] [place] Ht / Wt: 165(cm)/118(kg) Pt. Loc: CCU BSA: 2.21 Study Date: 02/07/2020 Pt. Type: Inpatient Tape: Referring: Rell Gutierrez ([id number]) Referring: LISY Reading: Ruslan Mcfarlane ([id number]) Aircraft Cylinder Mechanic: Laura Brown Diagnosis: *Non-ST elevation (NSTEMI) myocardial infarction (I21.4) *1 vial Optison used, Obese, on IABP SUMMARY: 1. The left ventricular chamber size is [...] and function. 4. No significant valvular abnormalities. 5. Other details as noted below. Findings : Study Quality: Technically limited Left Ventricle: The left ventricular chamber size is normal. Left ventricular wall thickness is normal. There is no evidence of LVOT obstruction. There is normal global left ventricular systolic function. The quantitative left ventricular ejection fraction by biplane Gross's method is 61%. There are left ventricular segmental wall motion abnormalities present, as shown in the diagram below. The left ventricular diastolic filling pattern is consistent with impaired LV relaxation. The basal inferoseptal, mid anteroseptal, mid inferoseptal, apical septal, and apical inferior wall segments are hypokinetic (score 2). The apical anterior, and apical lateral wall segments are akinetic (score 3). Overall wallmotion score index is 1.56 Left Atrium: The left atrium is normal in size. No atrial septal defect is visualized. Right Ventricle: The right ventricle is normal in size. Right ventricular global systolic function is normal. No pulmonary hypertension is noted. The estimated pulmonary artery systolic pressure is 10.95 mmHg. The estimated right atrial pressure is 3 mmHg. Right Atrium: The right atrium appears normal. Aortic Valve: The aortic valve is trileaflet. The leaflets are thin with normal excursion. There is no aortic stenosis or regurgitation present. Mitral Valve: The mitral valve appears normal in structure and function. There is no evidence of mitral valve leaflet prolapse. There is trace mitral regurgitation present. Tricuspid Valve: The tricuspid valve appears normal in structure and function. There is trace tricuspid regurgitation present. Pulmonic Valve: The pulmonic valve appears normal in structure and function. Pericardium: The pericardium appears normal and there is no evidence of a pericardial effusion. Aorta: The aortic root is normal in size. The ascending aorta is normal in size. There is no evidence of coarctation of the aorta. Pulmonary Artery: The main pulmonary artery appears normal. Venous: The inferior vena cava appears normal in size. There is a greater than 50% respiratory change in the inferior vena cava dimension. Misc: Two-dimensional echo, spectral Doppler and color Doppler performed. Chambers 2D Value Units (Range) RVIDd Base 3.3 cm RVIDd Mid (AP) 3.1 cm IVSd (2D) 1.21 cm LVPWd (2D) 1.07 cm IVS:LVPW ratio (2D) 1.13 ratio RWT (2D) 0.5 ratio RWT PW (2D) 0.47 ratio LVIDd (2D) 4.6 cm LVIDs (2D) 3.22 cm LVIDd (2D) index 2.08 cm/m2 LVIDs (2D) index 1.46 cm/m2 LV FS (2D) 30 % EF Teichholz (2D) 57.28 % Ao root diameter (2D2.7 cm (2.1 - 3.6) Ascending Ao 3 cm (2 - 3.5) Volumes/Mass Value Units (Range) LA Area 4 CH 14.8 cm2 (<21) RA AREA 4CH 11.7 cm2 LA ESV BP (MOD) inde16.92 ml/m2 LV ESV SP 4CH (MOD) 46 ml LV ESV SP 2CH (MOD) 43.9 ml LV EDV BP 118 ml LV ESV BP 45.4 ml LV EDV BP index 53.37 ml/m2 LV ESV BP index 20.53 ml/m2 BP EF (MOD) 61.53 % LV mass (2D) 190.57 g LV mass (2D) index 86.19 g/m2 Diastolic/Systolic Function Value Units (Range) MV E-wave Vmax 0.61 m/sec MV deceleration [id number] msec MV A-wave Vmax 0.77 m/sec MV E:A ratio 0.79 ratio LV septal e' Vmax 0.07 m/sec LV lateral e' Vmax 0.07 m/sec LV average e' Vmax 0.07 m/sec LV E:e' septal ratio8.7 ratio LV E:e' lateral rati8.7 ratio LV average E:e' rati8.7 ratio Mitral Valve Value Units (Range) MV PHT 42 msec MVA (PHT) 5.24 cm2 Tricuspid Valve Value Units (Range) TAPSE 2.4 cm RV lateral s' Vmax 0.13 m/sec TR Vmax 1.41 m/sec TR peak gradient 7.95 mmHg RAP 3 mmHg RVSP 10.95 mmHg Measurement Trending Name 02/07/2020 RAP 3 RVSP 10.95 BP EF (MOD) 61.53 Wall Motion: Segment Name Rest Base-Anteroseptal Normal Base-Anterior Normal Base-Anterolateral Normal Base-Posterolateral Normal Base-Inferior Normal Base-Inferoseptal Hypokinetic Mid-Anteroseptal Hypokinetic Mid-Anterior Normal Mid-Anterolateral Normal Mid-Posterolateral Normal Mid-Inferior Normal Mid-Inferoseptal Hypokinetic [place]-Septal Hypokinetic [place]-Anterior Akinetic [place]-Lateral Akinetic [place]-Inferior Hypokinetic [place]-Tip Akinetic This report has been electronically signed by: Ruslan Mcfarlane MD 02/07/2020 13:49:14 Images reviewed and interpretation verified [facility] Rell Gutierrez MD ECHO ORDERABLES * XR Chest One View (02/07/2020 9:46 AM EDT) Anatomical Region Laterality Modality Chest N/A Digital Radiogra phy Impressions 02/07/2020 9:53 AM EDT Findings suggestive of mild volume overload without kuldeep pulmonary edema. Thank you for letting us participate in the care of this patient. For questions regarding this report, please contact the number below. ? Narrative 02/07/2020 9:53 AM EDT EXAMINATION: XR CHEST ONE VIEW CLINICAL HISTORY: pt with NSTEMI. r/o CHF TECHNIQUE: 1 view of the chest COMPARISON: None FINDINGS: The cardiomediastinal silhouette is within normal limits. The last and central pulmonary vascular markings are prominent. Central pulmonary vascular line margins are indistinct. No large pleural effusion. No pneumothorax. A surgical clip projects over the aortic arch. Procedure Note Varghese Richmond MD - 02/07/2020 EXAMINATION: XR CHEST ONE VIEW CLINICAL HISTORY: pt with NSTEMI. r/o CHF TECHNIQUE: 1 view of the chest COMPARISON: None FINDINGS: The cardiomediastinal silhouette is within normal limits. The last andcentral pulmonary vascular markings are prominent. Central pulmonary vascularline margins are indistinct. No large pleural effusion. No pneumothorax. Asurgical clip projects over the aortic arch. IMPRESSION Findings suggestive of mild volume overload without kuldeep pulmonaryedema. Thank you for letting us participate in the care of this patient. Forquestions regarding this report, please contact the number below. Vik Justin MD IMG DX ORDERABL ES * CARDIAC CATHETERIZATION (02/07/2020 9:00 AM EDT) Anatomical Region Laterality Modality Other Narrative 02/07/2020 9:04 AM EDT ?[facility] ? Cardiac Catheterization/Intervention Report ? Patient Name: Danielle Mills ? Procedure Date: 02/07/2020 ? A #: [id number] ? Primary Physician: Jose, Todd T ? Case #: [id number] ? File Name: [id number] ? Catheterization Order Number: [id number] ? [facility] ? Final Report [place], [place] ? Patient Name: ? Danielle Jarrett ? ID#: ?[id number] ? : ?1960 ? Procedure Date: ? February 07, 2020 ? Case #: ? [id number] ? Room: ? 2 ? Case Physician: ? Todd Garcia MHayley. ?Start: ?08:14 ?Fellow: ? David Vigil M.D. ?Admission: ??02/07/2020 ? Discharge: ??02/09/2020 ? Referring Physician: ??Edita Dickson ? Procedures: ?* Coronary Angiography ?* Left Heart Catheterization ?* Intra-Aortic Balloon Pump (IABP) Insertion ? History ?Danielle Mills is a 59 year old woman. She has hypertension. The ?patient's smoking status is Current with Current - Every Day frequency, ?using cigarettes. Cigarette use is Heavy (>=10/day). She has ?hypercholesterolemia. The patient has diabetes managed by diet and oral ?medication. She is status post an acute non-ST elevation myocardial ?infarction. The patient has a history of an ejection fraction less than ?or equal to 35%. She has a history of CHF. The CHF is NYHA Functional ?Class III, is newly diagnosed and is classified as Systolic. She also has ?a history of chronic obstructive pulmonary disease. Prior to the ?initiation of this procedure, the patient was designated as ASA Class IV. ?The [facility] clinical frailty scale is 5: Mildly Frail. ? Diagnostic Tests: ?Prior Coronary Angiography: ? LV ejection fraction within 6 months is 30%. ?Electrocardiography: ? EKG was assessed by ECG. EKG was Abnormal. EKG showed T-wave ? inversions. ?Medications Prior to Procedure: ? Aspirin and Statin. ? Indications for Diagnostic Cath: ?The priority of the diagnostic procedure was Urgent. The indication for ?the mill labor supervisor visit is ACS less than or equal to 24 hrs. Chest pain ?symptom assessment was: Typical Angina. Ventricular support was supplied ?with mechanical support with Intra-aortic balloon pump (IABP) Inserted ?during procedure and prior to intervention. ? Technique: ?A 6 SLFr sheath was inserted in the right radial artery utilizing the ?Seldinger technique. An 8Fr sheath was inserted in the right femoral ?artery utilizing the Seldinger technique. The left coronary artery was ?injected utilizing a 5Fr MELITON RADIAL catheter. A 5Fr MELITON RADIAL ?catheter was used to inject the right coronary artery. Left ventricle was ?performed with a 5Fr MELITON RADIAL catheter. 7,000 units of heparin were ?administered. A total of 200cc of Omnipaque were opened, 100cc of ?Omnipaque were administered and 100cc of Omnipaque were wasted. ?Radiation: Fluoro time was 5.8 minutes, dose area product was 86,057 ?mGYcm2 and air kerma was 1,456 mGY. See the case log for additional ?details. ?The patient received the following medications prior to and during the ?procedure: ? Unfractionated Heparin and Clopidogrel. ? Hemodynamics: ?Left Heart Pressures ? Resting: ? Syst Diast ? EDP ?a ?v ? m ?Ao 124 ?? 73 ?96 ?LV 122 ? 34 ? Coronary Angiography: ?Dominance: Left ?Left Main ? There was mild diffuse (<=25% stenosis) disease of the entire vessel ? segment of the left main artery. ?Left Anterior Descending ? There was mild diffuse (<=25% stenosis) disease of the entire vessel ? segment of the left anterior descending artery (LAD). ??The proximal ? segment of the LAD had a single discrete 95% stenosis. ?Left Circumflex ? There was mild diffuse (<=25% stenosis) disease of the entire vessel ? segment of the left circumflex artery (LCX). ? There was a 90% single discrete stenosis of the proximal segment of ? the first left posterolateral branch (LPL1) of the LCX. ? There was an 80% diffuse stenosis of the proximal segment of the ? left posterior descending branch (LPDA) of the LCX. ?Right Coronary Artery ? There was mild diffuse (<=25% stenosis) disease of the entire vessel ? segment of the right coronary artery (RCA). ??The proximal segment of ? the RCA had a single discrete total occlusion. ?Ramus ? There was mild diffuse (<=25% stenosis) disease of the entire vessel ? segment of the ramus. ? Vascular Access: ?Vascular Access Management: ? Mechanical Compression of the right radial artery access site was ? performed. ? Conclusions: ?* Three vessel coronary artery disease (LAD, LCX and RCA) ?* Elevated left ventricular end diastolic pressure ? Complications/Events: ?The patient had no complications during these procedures. ? Recommendations: ?Based upon the results of this procedure, it was recommended that ?coronary artery bypass surgery and stent insertion be considered. ? Comments: ?An 8Fr IABP was inserted via the right BRANCH OPERATIONS COORDINATOR using ultrasound guidance. ?The IABP was advanced via the right BRANCH OPERATIONS COORDINATOR into the distal aortic arch over ?a wire. ??After confirming position, the IABP was sutured in place and ?connected to the console. ??The counterpulsation was initiated and the ?patient was noted to become chest pain free. ?Successful inseriton of a 50cc IABP via an 8fr sheat in the right BRANCH OPERATIONS COORDINATOR. ?The attending physician was present for the entire procedure. ?Dr. Todd Garcia M.D. was present during the moderate sedation ?intraservice time as documented by the sedation nurse. ??Case time = 00:34. ?Dr. Todd Garcia M.D. performed the coronary angiography, left heart ?catheterization and IABP insertion in mill labor supervisor. ? Todd Garcia M.D. ? Electronically Signed by: Todd Garcia M.D. ? Report Finalized: 02/07/2020 ??08:57 ? Report Last Ammended: 03/23/2020 ??13:05 ? Procedure Note Todd Garcia MD - 03/23/2020 [facility] Cardiac Catheterization/Intervention Report Patient Name: Danielle Mills Procedure Date: 02/07/2020 A #: [id number] Primary Physician: Todd Garcia Case #: [id number] File Name: [id number] Catheterization Order Number: [id number] [facility] FinalReport [place], [place] Patient Name: Danielle Mills ID#:[id number] :1960 Procedure Date: February 07, 2020 Case #: [id number] Room: 2 Case Physician: Todd Garcia M.D. Start: 08:14 Fellow: David Vigil M.D. Admission:02/07/2020 Discharge:02/09/2020 Referring Physician: Edita Dickson Procedures: * Coronary Angiography * Left Heart Catheterization * Intra-Aortic Balloon Pump (IABP) Insertion History Danielle Mills is a 59 year old woman. She has hypertension. The patient's smoking status is Current with Current - Every Dayfrequency, using cigarettes. Cigarette use is Heavy (>=10/day). She has hypercholesterolemia. The patient has diabetes managed by diet andoral medication. She is status post an acute non-ST elevation myocardial infarction. The patient has a history of an ejection fraction lessthan or equal to 35%. She has a history of CHF. The CHF is NYHAFunctional Class III, is newly diagnosed and is classified as Systolic. Abel has a history of chronic obstructive pulmonary disease. Prior to the initiation of this procedure, the patient was designated as ASAClass IV. The [facility] clinical frailty scale is 5: Mildly Frail. Diagnostic Tests: Prior Coronary Angiography: LV ejection fraction within 6 months is 30%. Electrocardiography: EKG was assessed by ECG. EKG was Abnormal. EKG showed T-wave inversions. Medications Prior to Procedure: Aspirin and Statin. Indications for Diagnostic Cath: The priority of the diagnostic procedure was Urgent. The indicationfor the mill labor supervisor visit is ACS less than or equal to 24 hrs. Chest pain symptom assessment was: Typical Angina. Ventricular support wassupplied with mechanical support with Intra-aortic balloon pump (IABP)Inserted during procedure and prior to intervention. Technique: A 6 SLFr sheath was inserted in the right radial artery utilizingthe Seldinger technique. An 8Fr sheath was inserted in the right femoral artery utilizing the Seldinger technique. The left coronary arterywas injected utilizing a 5Fr MELITON RADIAL catheter. A 5Fr MELITON RADIAL catheter was used to inject the right coronary artery. Leftventricle was performed with a 5Fr MELITON RADIAL catheter. 7,000 units of heparinwere administered. A total of 200cc of Omnipaque were opened, 100cc of Omnipaque were administered and 100cc of Omnipaque were wasted. Radiation: Fluoro time was 5.8 minutes, dose area product was 86,057 mGYcm2 and air kerma was 1,456 mGY. See the case log for additional details. The patient received the following medications prior to and duringthe procedure: Unfractionated Heparin and Clopidogrel. Hemodynamics: Left Heart Pressures Resting: Syst Diast EDP a v m Ao 124 73 96 LV 122 34 Coronary Angiography: Dominance: Left Left Main There was mild diffuse (<=25% stenosis) disease of the entirevessel segment of the left main artery. Left Anterior Descending There was mild diffuse (<=25% stenosis) disease of the entirevessel segment of the left anterior descending artery (LAD). Theproximal segment of the LAD had a single discrete 95% stenosis. Left Circumflex There was mild diffuse (<=25% stenosis) disease of the entirevessel segment of the left circumflex artery (LCX). There was a 90% single discrete stenosis of the proximalsegment of the first left posterolateral branch (LPL1) of the LCX. There was an 80% diffuse stenosis of the proximal segment ofthe left posterior descending branch (LPDA) of the LCX. Right Coronary Artery There was mild diffuse (<=25% stenosis) disease of the entirevessel segment of the right coronary artery (RCA). The proximalsegment of the RCA had a single discrete total occlusion. Ramus There was mild diffuse (<=25% stenosis) disease of the entirevessel segment of the ramus. Vascular Access: Vascular Access Management: Mechanical Compression of the right radial artery access sitewas performed. Conclusions: * Three vessel coronary artery disease (LAD, LCX and RCA) * Elevated left ventricular end diastolic pressure Complications/Events: The patient had no complications during these procedures. Recommendations: Based upon the results of this procedure, it was recommended that coronary artery bypass surgery and stent insertion be considered. Comments: An 8Fr IABP was inserted via the right BRANCH OPERATIONS COORDINATOR using ultrasoundguidance. The IABP was advanced via the right BRANCH OPERATIONS COORDINATOR into the distal aortic archover a wire. After confirming position, the IABP was sutured in placeand connected to the console. The counterpulsation was initiated andthe patient was noted to become chest pain free. Successful inseriton of a 50cc IABP via an 8fr sheat in the rightCFA. The attending physician was present for the entire procedure. Dr. Todd Garcia M.D. was present during the moderate sedation intraservice time as documented by the sedation nurse. Case time =00:34. Dr. Todd Garcia M.D. performed the coronary angiography, leftheart catheterization and IABP insertion in mill labor supervisor. Todd Garcia M.D. Electronically Signed by: Todd Garcia M.D. Report Finalized: 02/07/2020 08:57 Report Last Ammended: 03/23/2020 13:05 Todd Garcia MD CARDIAC CATH ORDERAB LES * POCT Glucose (02/07/2020 7:32 AM EDT) POC Glucose 147 65 - 199 mg/dL [facility] Comment: Supplemental ranges: <140 mg/dL before meals <180 mg/dL all other times of the day Blood specimen (specimen) 02/07/2020 7:32 AM EDT 02/07/2020 7:32 AM EDT Rell Gutierrez MD POINT OF CARE TEST O RDERABLES [facility] [place] [address] * (ABNORMAL) Hemoglobin A1c (02/07/2020 7:29 AM EDT) Hemoglobin A1C 6.8(H) 4.3 - 5.6 % [facility] Comment: Reference Range: 4.3 - 5.6% [...] 36: Suppl. 1, S67-74 Est Avg Gluc 147 mg/dL [facility] Comment: eAG equivalents for HbA1c percentages: [...] into estimated average glucose values. ??Diabetes Care 2008:31(8):9327-6245. Blood specimen (specimen) Venous Draw / Unknown 02/07/2020 7:29 AM EDT 02/07/2020 8:47 AM EDT Narrative Resulting Agency Comment Spec In Lab Keyon Foley MD CHEMISTRY ORDERABLES Performing Organization Address [facility] de Phone Number [facility] [place] [address] * Sedimentation rate (02/07/2020 7:29 AM EDT) [facility] Sed Rate 25 2 - 39 mm/hr [facility] Comment: Effective April 21, 2019 new capillary photometric technology has resulted in a change in reference ranges. It is recommended that each ESR result be reviewed with its own age appropriate reference range. Blood specimen (specimen) Venous Draw / Unknown 02/07/2020 7:29 AM EDT 02/07/2020 7:45 AM EDT Narrative Resulting Agency Comment Spec In Lab Rell Gutierrez MD HEMATOLOGY ORDERABLE S Performing Organization Address [facility] de Phone Number [facility] [place] [address] * (ABNORMAL) Hepatic Function Panel (02/07/2020 7:29 AM EDT) Total Protein 6.0(L) 6.1 - 8.0 gm/dL [facility] Albumin 3.8 3.2 - 5.2 gm/dL [facility] AST 35(H) 0 - 30 unit/L [facility] ALT 36(H) 0 - 30 unit/L [facility] Alk Phos 72 35 - 105 unit/L [facility] Total Bilirubin 0.4 0.2 - 1.3 mg/dL [facility] Bili, Direct 0.1 0.0 - 0.3 mg/dL [facility] Blood specimen (specimen) Venous Draw / Unknown 02/07/2020 7:29 AM EDT 02/07/2020 7:45 AM EDT Narrative Resulting Agency Comment Spec In Lab Rell Gutierrez MD CHEMISTRY ORDERABLES Performing Organization Address City/[facility]/ZIP Co de Phone Number [facility] [place] [address] * Lipase (02/07/2020 7:29 AM EDT) Lipase 28 0 - 60 unit/L [facility] Blood specimen (specimen) Venous Draw / Unknown 02/07/2020 7:29 AM EDT 02/07/2020 7:45 AM EDT Narrative Resulting Agency Comment Spec In Lab Rell Gutierrez MD CHEMISTRY ORDERABLES Performing Organization Address City/[facility]/ZIP Co de Phone Number [facility] [place] [address] * (ABNORMAL) CRP, acute inflammation (02/07/2020 7:29 AM EDT) CRP 18.2(H) <=4.9 mg/L [facility] Blood specimen (specimen) Venous Draw / Unknown 02/07/2020 7:29 AM EDT 02/07/2020 7:45 AM EDT Narrative Resulting Agency Comment Spec In Lab Rell Gutierrez MD CHEMISTRY ORDERABLES [facility] [place] [address] * Differential, Automated (02/07/2020 7:29 AM EDT) Neutrophils % 64.8 % [facility] Neutr Abs (ANC) 5.08 1.70 - 6.10 x10(3)/[facility] Lymphocytes % 27.1 % [facility] Lymphocytes Abs 2.1 0.9 - 3.2 x10(3)/[facility] Monocytes % 6.8 % [facility] Monocyte Abs 0.5 0.3 - 0.9 x10(3)/[facility] Eosinophils % 0.5 % [facility] Eosinophils Abs 0.0 0.0 - 0.4 x10(3)/[facility] Basophils % 0.5 % [facility] Basophils Abs 0.0 0.0 - 0.1 x10(3)/[facility] Immature Gran % 0.30 % [facility] Comment: Immature granulocytes(IG's)percentage and absolute count will include metamyelocytes, myelocytes, and promyelocytes. Blood smears from CBCs yielding IG's will be scanned manually for concordance. If this scan disagrees with the automated IG or if promyelocytes are noted, a manual differential will be performed. Lorraine Gran Abs 0.02 0.00 - 0.04 x10(3)/[facility] Blood specimen (specimen) 02/07/2020 7:29 AM EDT 02/07/2020 7:45 AM EDT Narrative Resulting Agency Comment Spec In Lab Vik Justin MD HEMATOLOGY ORDE MARIANNE [facility] [place] [address] * (ABNORMAL) Hemogram (02/07/2020 7:29 AM EDT) WBC 7.8 4.0 - 9.5 x10(3)/[facility] LAB[facility] RBC 5.33(H) 4.00 - 5.21 x10(6)/[facility] Hemoglobin 13.7 11.7 - 15.5 gm/dL [facility] Hematocrit 45.2 35.7 - 45.8 % [facility] MCV 84.8 82.6 - 94.4 fL [facility] MCH 25.7(L) 27.1 - 32.0 pg [facility] MCHC 30.3(L) 31.7 - 35.0 gm/dL [facility] Platelets 173 145 - 357 x10(3)/[facility] LAB[facility] RDWSD 43.9 37.0 - 46.0 fL [facility] RDWCV 14.2(H) 11.5 - 14.1 % [facility] MPV 11.0 7.6 - 12.9 fL [facility] nRBC % Auto 0.0 % [facility] nRBC Abs Auto 0.000 0.000 - 0.000 x10(3)/[facility] Blood specimen (specimen) 02/07/2020 7:29 AM EDT 02/07/2020 7:45 AM EDT Narrative Resulting Agency Comment Spec In Lab Vik Justin MD HEMATOLOGY EDEN LOPES [facility] [place] [address] * Prothrombin Time (02/07/2020 7:29 AM EDT) PT 11.8 9.4 - 12.5 sec [facility] INR 1.0 [facility] Comment: An INR <2.0 indicates adequate procoagulant activity for hemostasis in most patients without underlying bleeding disorders, though the INR may not adequately reflect hemostatic capacity in patients with liver disease and synthetic impairment. The recommended target INR range for therapeutic anticoagulation is 2.0 ? 3.0 for most applications, though lower and higher ranges may be appropriate depending on clinical circumstances. Blood specimen (specimen) 02/07/2020 7:29 AM EDT 02/07/2020 7:45 AM EDT Narrative Resulting Agency Comment Spec In Lab Vik Justin MD HEMATOLOGY ORDE RABLES Performing Organization Address [facility]/ZIP Co de Phone Number [facility] [place] [address] * (ABNORMAL) pro-Brain Natriuretic Peptide (02/07/2020 7:29 AM EDT) ProBNP 893(H) <=125 pg/mL [facility] Blood specimen (specimen) 02/07/2020 7:29 AM EDT 02/07/2020 7:45 AM EDT Narrative Resulting Agency Comment Spec In Lab Vik Justin MD CHEMISTRY ORDER TOBI Performing Organization Address [facility] Co de Phone Number [facility] [place] [address] * Lipid Panel (Reflex Direct LDL) (02/07/2020 7:29 AM EDT) Chol, Total 186 mg/dL [facility] Comment: Lower Risk: <200 mg/dL Average Risk: 200-239 mg/dL Higher Risk: >iu=548 mg/dL Triglycerides 161 mg/dL [facility] Comment: Average Risk/Lower Risk: <150 mg/dL Borderline High Risk: 150-199 mg/dL High Risk: 200-499 mg/dL Very High Risk: >ms=811 mg/dL HDL 34 mg/dL [facility] Comment: Males: ?? Higher Risk: <40 mg/dL Females: ?? HIgher Risk: <50 mg/dL LDL Cholesterol 120 mg/dL [facility] Comment: Lowest Risk: <100 mg/dL Lower Risk: 100-129 mg/dL Borderline High Risk: 130-159 mg/dL High Risk: 160-189 mg/dL Very High Risk: >hp=020 mg/dL Chol/HDL Ratio 5.5 ratio [facility] Lipid Interpretation See Note [facility] Comment: Lipid management should be guided by a patient? s ASCVD risk, goals and preferences. ACC/AHA Guidelines recommend high intensity statin if clinical ASCVD or LDL greater than or equal to 190 mg/dL. [email or web address]/[email or web address] Adults aged 40-75 with LDL 70-189 mg/dL should have their 10 year ASCVD risk estimated with the ACC/AHA ASCVD risk senior cost estimator http://tools.acc.org/RBNYI-Dmlh-Sglnhgude/ Statin should be discussed if risk greater [...] Lab Vik Justin MD CHEMISTRY ORDER TOBI [facility] [place] [address] * TSH (02/07/2020 7:29 AM EDT) TSH 1.30 0.27 - 4.20 mcIU/mL [facility] Blood specimen (specimen) 02/07/2020 7:29 AM EDT 02/07/2020 7:45 AM EDT Narrative Resulting Agency Comment Spec In Lab Vik Justin MD CHEMISTRY ORDER TOBI Performing Organization Address City/[facility]/ZIP Co de Phone Number [facility] [place] [address] * (ABNORMAL) Troponin (02/07/2020 7:29 AM EDT) Troponin-T 0.10(H) 0.00 - 0.00 ng/mL [facility] Comment: Called by: graciela, Read back by: edita yates (data center engineer), Date/Time:_02/07/20 08:14. The 99th percentile for Troponin T is less than 0.01 ng/mL, any detectable cTnT concentration using this assay should be considered elevated. According to the third universal definition of myocardial infarction the following criteria with a clinical presentation consistent with acute myocardial ischemia meets the diagnosis for a myocardial infarction (PA). Detection of a rise and/or fall of cTnT, with at least one value greater than the 99th percentile (> or = 0.01) and with at least one of the following ?? Symptoms of ischemia ?? New or presumed new significant [id number] wave (ST-T) changes or new left bundle branch block (LBBB) ?? Development of pathologic Q waves in the ECG ?? Imaging evidence of new loss of viable myocardium or new regional wall motion abnormality ?? Identification of an intracoronary thrombus by angiography or autopsy Samples for cTnT testing should be obtained serially upon first assessment and again 3 to 6 hours later. If the clinical suspicion is high and previous samples have been negative an additional sample may be indicated. Reference: Third [place] Definition of Myocardial Infarction. Journal of the [place] [employer] 2012;60:1581-98 Blood specimen (specimen) 02/07/2020 7:29 AM EDT 02/07/2020 7:45 AM EDT Narrative Resulting Agency Comment Spec In Lab Vik Justin MD CHEMISTRY ORDER TOBI Performing Organization Address City/[facility]/ZIP Co de Phone Number [facility] [place] [address] * (ABNORMAL) BMP w/fasting Glucose (02/07/2020 7:29 AM EDT) Glucose Fasting 155(H) 65 - 99 mg/dL [facility] Comment: ?Fasting* Glucose Interpretive Criteria Normal ?65-99 mg/dL Impaired Fasting glucose ?100-125 mg/dL Consistent with Diabetes Mellitus ? >or= 126 mg/dL *Fasting is defined as no caloric intake for at least 8 hours In the absence of unequivocal hyperglycemia a plasma glucose value of >or= 126 mg/dL should be repeated on a subsequent day. Diagnosis and Classification of Diabetes Mellitus, Position Statement from the [place] [employer]. ??Diabetes Care, Volume 33, Supplement 1, May 2009 BUN 7(L) 8 - 18 mg/dL [facility] Creatinine 0.69(L) 0.70 - 1.20 mg/dL [facility] Sodium 139 135 - 145 mmol/L [facility] Potassium 4.1 3.5 - 5.0 mmol/L [facility] Comment: Please note: ??Patients with WBC >100,000 may have falsely elevated Potassium levels. ??For accurate Potassium quantification in these patients send serum separator tube (gold top) for subsequent determinations. ??Contact the Clinical Chemistry Laboratory if there are any questions. Chloride 105 98 - 107 mmol/L [facility] CO2 21(L) 22 - 31 mmol/L [facility] Anion Gap 13 5 - 15 mmol/L [facility] Calcium 8.1(L) 8.5 - 10.5 mg/dL [facility] Estimated GFR 96 >=60 mL/min/1. 73 m?? [facility] Comment: The eGFR was calculated using the CKD-EPI equation. As with all creatinine based estimates of kidney function, eGFR values calculated with the CKD-EPI equation are not accurate in patients with acute kidney failure, extremes of body mass or the acutely ill. [email or web address] [email or web address] eGFR 111 >=60 mL/min/1. 73 m?? [facility] Comment: The eGFR was calculated using the CKD-EPI equation. As with all creatinine based estimates of kidney function, eGFR values calculated with the CKD-EPI equation are not accurate in patients with acute kidney failure, extremes of body mass or the acutely ill. [email or web address] Blood specimen (specimen) 02/07/2020 7:29 AM EDT 02/07/2020 7:45 AM EDT Narrative Resulting Agency Comment Spec In Lab Vik Justin MD CHEMISTRY ORDER TOBI Performing Organization Address City/[facility]/ZIP Co de Phone Number [facility] [place] [address] * EKG 12 Lead (02/07/2020 6:33 AM EDT) Ventricular rate 80 BPM MUSE SYSTEM Atrial Rate 80 BPM MUSE SYSTEM P-R Interval 150 ms MUSE SYSTEM QRS Duration 82 ms MUSE SYSTEM Q-T Interval 426 ms MUSE SYSTEM QTC Calculated (Bezet) 491 ms MUSE SYSTEM Calculated P [place] 54 degrees MUSE SYSTEM Calculated R [place] 6 degrees MUSE SYSTEM Calculated T [place] 103 degrees MUSE SYSTEM INTERPRETATION Normal sinus rhythm Anterior infarct , age undetermined Possible Left atrial enlargement T wave abnormality, consider lateral ischemia Abnormal ECG No previous ECGs available I personally reviewed the tracing and edited the fellows interpretation Confirmed by fellow Fabian Waters ([id number]) on 02/07/2020 2:39:52 PM Confirmed by MD MUSA DAVID ([id number]) on 02/08/2020 5:36:22 PM MUSE SYSTEM 02/07/2020 6:33 AM EDT 02/08/2020 5:36 PM EDT Vik Justin MD ECG ORDERABLES MUSE SYSTEM documented in this encounter Visit Diagnoses Diagnosis Non-ST elevation myocardial infarction (NSTEMI) Acute myocardial infarction, subendocardial infarction, episode of care unspecified Non-ST elevation myocardial infarction (NSTEMI) Acute myocardial infarction, subendocardial infarction, episode of care unspecified 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, 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 with normal TSH 1.75-2.25) Chronic lymphocytic thyroiditis Type 2 diabetes mellitus Type II or unspecified type diabetes mellitus without mention of complication, not stated as uncontrolled HLD (hyperlipidemia) Other and unspecified hyperlipidemia Gastroesophageal reflux disease with hiatal hernia Esophageal reflux Depression, anxiety, insomnia, PTSD Depressive disorder, not elsewhere classified NSTEMI (non-ST elevated myocardial infarction) Acute myocardial infarction, subendocardial infarction, episode of care unspecified documented in this encounter Admitting Diagnoses Diagnosis NSTEMI (non-ST elevated myocardial infarction) Acute myocardial infarction, subendocardial infarction, episode of care unspecified documented in this encounter Administered Medications Inactive Administered Medications - up to 3 most recent administrations Medication Order MAR Action Action Date Dose Rate Site acetaminophen (Tylenol) tablet 1,000 mg 1,000 mg, Oral, EVERY 6 HOURS PRN, Starting on Fri02/07/20 at 1017, Until Fri02/09/20 at 1430, Pain, Maximum dose of acetaminophen is 4000 mg from all sources in 24 hours. When ordered for pain, acetaminophen should be given even when other ordered pain medications are indicated. , STAT Given 02/08/2020 1:09 AM EDT 1,000 mg Given 02/07/2020 10:49 AM EDT 1,000 mg aspirin 81 mg chewable tablet 1 dose, Starting on Fri02/07/20 at 0743, Until Fri02/07/20 at 0745, LAURA SOMMER: gonzálezinet override aspirin chewable tablet 81 mg 81 mg, Oral, DAILY, First dose on Fri02/07/20 at 0900, Until Discontinued, Routine Given 02/09/2020 8:16 AM EDT 81 mg Given 02/08/2020 8:06 AM EDT 81 mg Given 02/07/2020 7:45 AM EDT 81 mg atorvastatin (Lipitor) tablet 80 mg 80 mg, Oral, EVERY EVENING, First dose on Fri02/09/20 at 1700, Until Discontinued, Routine clopidogreL (Plavix) tablet 75 mg 75 mg, Oral, DAILY, First dose (after last modification) on Fri02/08/20 at 0700, Until Discontinued, Routine Given 02/09/2020 8:16 AM EDT 75 mg Given 02/08/2020 8:06 AM EDT 75 mg dextrose 10% infusion 250 mL, at 1,000 mL/hr, Intravenous, EVERY 30 MIN PRN, Starting on Fri02/07/20 at 0652, Until Fri02/09/20 at 1430, For BG 50-70 mg/dL: Oral treatment preferred:?? If able to drink, give 120 mL Juice or Regular (not diet) soda OR If NPO, give 15 gram glucose 40% oral gel massaged into buccal mucosa OR if unconscious or uncooperative, give 25 gram (250 mL) Dextrose 10% IV over 15 minutes per protocol OR, if no IV access, 1 mg Glucagon IM. For BG less than 50 mg/dL: Oral treatment preferred:?? If able to drink, give 240 mL Juice or Regular (not diet) soda OR If NPO, give 30 gram glucose 40% oral gel massaged in buccal mucosa OR if unconscious or uncooperative, give 25 gram (250 mL) Dextrose 10% IV over 15 minutes per protocol OR, if no IV access, 1 mg Glucagon IM. Recheck BG in 30 minutes. May repeat juice/soda, gel, dextrose or glucagon once per episode. For persistent hypoglycemia, consider longer-acting treatment for the duration of the active insulin. enoxaparin (LOVENOX) injection 40 mg 40 mg, Subcutaneous, EVERY 12 HOURS SCHEDULED, First dose (after last modification) on Fri02/08/20 at 2100, Until Discontinued, Routine Given 02/09/2020 8:19 AM EDT 40 mg Given 02/08/2020 9:00 PM EDT 40 mg fentaNYL (PF) 50 mcg/mL injection 50 mcg, Intravenous, ONCE PRN, 1 dose, Starting on Fri02/07/20 at 1716, Until Fri02/07/20 at 1826, Pain, Pain with IABP pull, If medication ordered subcutaneously, do not administer more than 2 mL as a single injection., Routine Given 02/07/2020 6:26 PM EDT 50 mcg furosemide (LASIX) injection 40 mg 40 mg, Intravenous, ONCE, 1 dose, On Fri02/07/20 at 1045, Routine Given 02/07/2020 10:49 AM EDT 40 mg furosemide (LASIX) injection 40 mg 40 mg, Intravenous, ONCE, 1 dose, On Fri02/08/20 at 1000, Routine Given 02/08/2020 9:32 AM EDT 40 mg glucagon (human recombinant) injection SolR 1 mg 1 mg, Intramuscular, EVERY 30 MIN PRN, Starting on Fri02/07/20 at 0652, Until Fri02/09/20 at 1430, Low blood sugar, For BG 50-70 mg/dL: Oral treatment preferred:?? If able to drink, give 120 mL Juice or Regular (not diet) soda OR If NPO, give 15 gram glucose 40% oral gel massaged into buccal mucosa OR if unconscious or uncooperative, give 25 gram (250 mL) Dextrose 10% IV over 15 minutes per protocol OR, if no IV access, 1 mg Glucagon IM. For BG less than 50 mg/dL: Oral treatment preferred:?? If able to drink, give 240 mL Juice or Regular (not diet) soda OR If NPO, give 30 gram glucose 40% oral gel massaged in buccal mucosa OR if unconscious or uncooperative, give 25 gram (250 mL) Dextrose 10% IV over 15 minutes per protocol OR, if no IV access, 1 mg Glucagon IM. Recheck BG in 30 minutes. May repeat juice/soda, gel, dextrose or glucagon once per episode. For persistent hypoglycemia, consider longer-acting treatment for the duration of the active insulin., Routine glucose (GLUTOSE) 40% oral geL 15-30 g, Buccal, EVERY 30 MIN PRN, Starting on Fri02/07/20 at 0652, Until Fri02/09/20 at 1430, Low blood sugar, For BG 50-70 mg/dL: Oral treatment preferred:?? If able to drink, give 120 mL Juice or Regular (not diet) soda OR If NPO, give 15 gram glucose 40% oral gel massaged into buccal mucosa OR if unconscious or uncooperative, give 25 gram (250 mL) Dextrose 10% IV over 15 minutes per protocol OR, if no IV access, 1 mg Glucagon IM. For BG less than 50 mg/dL: Oral treatment preferred:?? If able to drink, give 240 mL Juice or Regular (not diet) soda OR If NPO, give 30 gram glucose 40% oral gel massaged in buccal mucosa OR if unconscious or uncooperative, give 25 gram (250 mL) Dextrose 10% IV over 15 minutes per protocol OR, if no IV access, 1 mg Glucagon IM. Recheck BG in 30 minutes. May repeat juice/soda, gel, dextrose or glucagon once per episode. For persistent hypoglycemia, consider longer-acting treatment for the duration of the active insulin. 1 tube contains 15 grams of glucose (net weight of tube = 37.5 grams., Routine insulin lispro (HumaLOG) VIAL injection 0-8 Units 0-8 Units, Subcutaneous, 3 TIMES DAILY WITH MEALS, First dose on Fri02/08/20 at 1200, Until Discontinued, [employer] Give 1 unit for every 10 grams carbohydrate. Hold if not eating or if BG less than 70., Routine Given 02/09/2020 8:48 AM EDT 5 Units Given 02/08/2020 6:14 PM EDT 2 Units Given 02/08/2020 12:56 PM EDT 1 Units insulin lispro (HumaLOG) VIAL injection 1-6 Units 1-6 Units, Subcutaneous, 3 TIMES DAILY BEFORE MEALS, First dose on Fri02/07/20 at 0745, Until Discontinued, CORRECTION BOLUS [1-6 Units] Moderate Sliding Scale: Correction factor 20 (1 unit of insulin is expected to drop the glucose 20 mg/dL) BG 140 - 160 Give 1 unit BG 161 - 180 Give 2 units BG 181 - 200 Give 3 units BG 201 - 220 Give 4 units BG 221 - 240 Give 5 units BG greater than 240, give 6 units and recheck BG in 2 hours. - If recheck BG is LESS than 240, give no insulin and resume schedule. - If recheck BG is GREATER than 240, give 6 units and repeat BG in 2 hours (no more than 3 times) & call for new insulin orders. DO NOT hold if NPO, unless specifically told to do so. Per Blood Glucose Monitoring Policy, re-check a BG of > 240 in 2 hours., Routine Given 02/08/2020 9:39 AM EDT 6 Units Given 02/08/2020 8:08 AM EDT 6 Units insulin lispro (HumaLOG) VIAL injection 2-12 Units 2-12 Units, Subcutaneous, 4 TIMES DAILY BEFORE MEALS & NIGHTLY, First dose (after last modification) on Fri02/08/20 at 1130, Until Discontinued, CORRECTION BOLUS [2-12 Units] Correction Factor 10 (1 unit of insulin is expected to drop the glucose 10 mg/dL) BG 140 - 160 Give 2 units BG 161 - 180 Give 4 units BG 181 - 200 Give 6 units BG 201 - 220 Give 8 units BG 221 - 240 Give 10 units BG greater than 240, give 12 units and recheck BG in 2 hours. - If recheck BG is LESS than 240, give no insulin and resume schedule. - If recheck BG is GREATER than 240, give 12 units and repeat BG in 2 hours (no more than 3 times) & call for new insulin orders. DO NOT hold if NPO, unless specifically told to do so. Per Blood Glucose Monitoring Policy, re-check a BG of > 240 in 2 hours, Routine Given 02/09/2020 8:48 A M EDT 10 Units Given 02/08/2020 8:59 PM EDT 2 Units Given 02/08/2020 6:13 PM EDT 2 Units liothyronine (Cytomel) tablet 5 mcg 5 mcg, Oral, DAILY, First dose on Fri02/08/20 at 0600, Until Discontinued, Routine Given 02/09/2020 5:18 AM EDT 5 mcg Given 02/08/2020 6:22 AM EDT 5 mcg losartan (Cozaar) tablet 12.5 mg 12.5 mg, Oral, DAILY, First dose on Fri02/08/20 at 1015, Until Discontinued, Routine Given 02/09/2020 8:17 AM EDT 12.5 mg Given 02/08/2020 11:34 AM EDT 12.5 mg magnesium sulfate 2 g in sterile water 50 mL 2 g, Intravenous, ONCE, 1 dose, On Fri02/08/20 at 0615, Administer over 120 Minutes New Bag 02/08/2020 6:23 AM EDT 2 g 25 mL/hr magnesium sulfate 2 g in sterile water 50 mL 2 g, Intravenous, ONCE, 1 dose, On Fri02/09/20 at 0500, Administer over 120 Minutes New Bag 02/09/2020 5:17 AM EDT 2 g 25 mL/hr metoprolol succinate XL (Toprol-XL) tablet 50 mg 50 mg, Oral, DAILY, First dose (after last modification) on Fri02/10/20 at 0900, Until Discontinued, DO NOT CRUSH OR OPEN, Routine metoprolol tartrate (Lopressor) tablet 12.5 mg 12.5 mg, Oral, EVERY 12 HOURS SCHEDULED, First dose on Fri02/07/20 at 0900, Until Discontinued, Routine Given 02/08/2020 8:06 AM EDT 12.5 mg Given 02/07/2020 8:36 PM EDT 12.5 mg metoprolol tartrate (Lopressor) tablet 12.5 mg 12.5 mg, Oral, EVERY 6 HOURS SCHEDULED, First dose (after last modification) on Fri02/08/20 at 1200, Until Discontinued, Hold for HR < 55, SBP < 90, Routine Given 02/09/2020 5:18 AM EDT 12.5 mg Given 02/08/2020 11:55 PM EDT 12.5 mg Given 02/08/2020 6:12 PM EDT 12.5 mg metoprolol tartrate (Lopressor) tablet 25 mg 25 mg, Oral, EVERY 12 HOURS SCHEDULED, First dose on Fri02/09/20 at 1215, Until Discontinued, Routine Given 02/09/2020 12:03 PM EDT 25 mg nicotine polacrilex (NICORETTE) gum 2 mg 2 mg, Buccal, EVERY 2 HOURS PRN, Starting on Fri02/08/20 at 0157, Until Fri02/09/20 at 1430, Smoking cessation, Chew gum slowly. Do not swallow. Maximum of 48 mg/day., Routine Given 02/08/2020 9:00 PM EDT 2 mg nitroGLYcerin 50 mg in dextrose 5% 250 mL infusion 0-200 mcg/min (0-60 mL/hr), Intravenous, CONTINUOUS, Starting on Fri02/07/20 at 1015, Until Fri02/08/20 at 0922, Titrate to keep chest pain < 2/10. Start at 25 mcg/min and adjust by 25 mcg/min every 5 minutes. Do not exceed 200 mcg/min., Routine Rate/Dose Verify 02/07/2020 4:00 PM EDT 40 mcg/min 12 mL/hr Rate/Dose Verify 02/07/2020 12:00 PM EDT 40 mcg/min 12 mL/ hr Rate/Dose Verify 02/07/2020 11:00 AM EDT 40 mcg/min 12 mL/ hr nitroGLYcerin 50 mg in dextrose 5% 250 mL infusion CONTINUOUS PRN, Starting on Fri02/07/20 at 1543, Until Fri02/08/20 at 0922, Cath (Intra-Procedure), Routine Rate/Dose Change 02/07/2020 5:28 PM EDT 20 mcg/min 6 mL/hr Rate/Dose Change 02/07/2020 5:00 PM EDT 30 mcg/min 9 mL/hr New Bag 02/07/2020 3:43 PM EDT 40 mcg/min 12 mL/hr pantoprazole EC (Protonix) tablet 40 mg 40 mg, Oral, DAILY, First dose on Fri02/07/20 at 1030, Until Discontinued Given 02/09/2020 8:17 AM EDT 40 mg Given 02/08/2020 8:06 AM EDT 40 mg Given 02/07/2020 10:49 AM EDT 40 mg potassium chloride ER (K-Dur/Klor-Con) tablet 20 mEq 20 mEq, Oral, EVERY 4 HOURS PRN, Starting on Fri02/07/20 at 1642, Until Fri02/09/20 at 1430, hypokalemia, Administer for serum potassium (mMol/L) of 3.9 - 4 See instructions for Potassium Protocol in online policies., Routine potassium chloride ER (K-Dur/Klor-Con) tablet 40 mEq 40 mEq, Oral, EVERY 4 HOURS PRN, Starting on Fri02/07/20 at 1642, Until Fri02/09/20 at 1430, hypokalemia, Administer for serum potassium (mMol/L) of 3.6 - 3.8 See instructions for Potassium Protocol in online policies., Routine Given 02/07/2020 10:06 PM EDT 40 mEq potassium, sodium phosphates (Neutra-Phos) 280-160-250 mg oral packet 3 g 3 g, Oral, EVERY 4 HOURS, 2 doses, First dose on Fri02/08/20 at 1000, Last dose on Fri02/08/20 at 1400, Take with full glass of water, Routine Given 02/08/2020 2:05 PM EDT 3 g Given 02/08/2020 9:31 AM EDT 3 g sodium chloride 0.9 % (flush) flush 5 mL 5 mL, Intravenous, EVERY 12 HOURS, First dose on Fri02/07/20 at 1015, Until Discontinued, Cath (Day of Procedure), Routine Given 02/08/2020 8:08 AM EDT 5 mLs sodium chloride 0.9 % (flush) flush 5 mL 5 mL, Intravenous, 2 TIMES DAILY, First dose on Fri02/07/20 at 1015, Until Discontinued, Routine Given 02/09/2020 8:20 AM EDT 5 mLs Given 02/08/2020 9:00 PM EDT 5 mLs Given 02/08/2020 8:07 AM EDT 5 mLs documented in this encounter Active and Recently Administered Medications Times are shown in EDT. Scheduled Medication Order 02/07/2020 02/08/2020 02/09/2020 aspirin chewable tablet 81 mg 81 mg, Oral, DAILY, First dose on Fri02/07/20 at 0900, Until Discontinued, Routine 0745 (Given - Provider: Laura Sommer RN)0755 ([facility] Hold - Provider: Admin Adt - Reason: Transfer to a Procedural area)0900 (Automatically Held - Provider: Admin Adt)0906 ([facility] Unhold - Provider: Admin Adt)1401 ([facility] Hold - Provider: Admin Adt - Reason: Transfer to a Procedural area)1549 ([facility] Unhold - Provider: Admin Adt) 0806 (Given - Provider: Maribel Babcock RN) 0816 (Given - Provider: Ann Mari RN) atorvastatin (Lipitor) tablet 80 mg 80 mg, Oral, EVERY EVENING, First dose on Fri02/09/20 at 1700, Until Discontinued, Routine clopidogreL (Plavix) tablet 75 mg 75 mg, Oral, DAILY, First dose (after last modification) on Fri02/08/20 at 0700, Until Discontinued, Routine 1401 (MAR Hold - Provider: Admin Adt - Reason: Transfer to a Procedural area)1549 (MAR Unhold - Provider: Admin Adt) 0806 (Given - Provider: Maribel Babcock RN) 0816 (Given - Provider: Ann Mari RN) enoxaparin (LOVENOX) injection 40 mg 40 mg, Subcutaneous, EVERY 12 HOURS SCHEDULED, First dose (after last modification) on Fri02/08/20 at 2100, Until Discontinued, Routine 2100 (Given - Provider: Gamaliel Shelton RN) 0819 (Given - Provider: Ann Mari RN) furosemide (LASIX) injection 40 mg (COMPLETED) 40 mg, Intravenous, ONCE, 1 dose, On Fri02/07/20 at 1045, Routine 1049 (Given - Provider: Alyce Navarro RN) furosemide (LASIX) injection 40 mg (COMPLETED) 40 mg, Intravenous, ONCE, 1 dose, On Fri02/08/20 at 1000, Routine 0932 (Given - Provider: Maribel Babcock, SHAR) insulin lispro (HumaLOG) VIAL injection 0-8 Units 0-8 Units, Subcutaneous, 3 TIMES DAILY WITH MEALS, First dose on Fri02/08/20 at 1200, Until Discontinued, [employer] Give 1 unit for every 10 grams carbohydrate. Hold if not eating or if BG less than 70., Routine 1256 (Given - Provider: Maribel Babcock, SHAR)1814 (Given - Provider: Maribel Babcock, RN) 0848 (Given - Provider: Ann Mari RN)1200 (Due) insulin lispro (HumaLOG) VIAL injection 1-6 Units (CANCELED)(Linked Group 1) 1-6 Units, Subcutaneous, 3 TIMES DAILY BEFORE MEALS, First dose on Fri02/07/20 at 0745, Until Discontinued, CORRECTION BOLUS [1-6 Units] Moderate Sliding Scale: Correction factor 20 (1 unit of insulin is expected to drop the glucose 20 mg/dL) BG 140 - 160 Give 1 unit BG 161 - 180 Give 2 units BG 181 - 200 Give 3 units BG 201 - 220 Give 4 units BG 221 - 240 Give 5 units BG greater than 240, give 6 units and recheck BG in 2 hours. - If recheck BG is LESS than 240, give no insulin and resume schedule. - If recheck BG is GREATER than 240, give 6 units and repeat BG in 2 hours (no more than 3 times) & call for new insulin orders. DO NOT hold if NPO, unless specifically told to do so. Per Blood Glucose Monitoring Policy, re-check a BG of > 240 in 2 hours., Routine 0745 (Not Given - Provider: Alyce Navarro RN - Reason: Transfer to a Procedural area - Comment: not on this RN's shift)0755 ([facility] Hold - Provider: Admin Adt - Reason: Transfer to a Procedural area)0906 ([facility] Unhold - Provider: Admin Adt)1130 (Not Given - Provider: Alyce Navarro RN - Reason: Order parameters not met)1401 ([facility]UL Hold - Provider: Admin Adt - Reason: Transfer to a Procedural area)1549 (MAR Unhold - Provider: Admin Adt)1630 (Not Given - Provider: Alyce Navarro RN - Reason: Order parameters not met) 0808 (Given - Provider: Maribel Babcock RN)0939 (Given - Provider: Maribel Babcock RN) insulin lispro (HumaLOG) VIAL injection 2-12 Units(Linked Group 2) 2-12 Units, Subcutaneous, 4 TIMES DAILY BEFORE MEALS & NIGHTLY, First dose (after last modification) on Fri02/08/20 at 1130, Until Discontinued, CORRECTION BOLUS [2-12 Units] Correction Factor 10 (1 unit of insulin is expected to drop the glucose 10 mg/dL) BG 140 - 160 Give 2 units BG 161 - 180 Give 4 units BG 181 - 200 Give 6 units BG 201 - 220 Give 8 units BG 221 - 240 Give 10 units BG greater than 240, give 12 units and recheck BG in 2 hours. - If recheck BG is LESS than 240, give no insulin and resume schedule. - If recheck BG is GREATER than 240, give 12 units and repeat BG in 2 hours (no more than 3 times) & call for new insulin orders. DO NOT hold if NPO, unless specifically told to do so. Per Blood Glucose Monitoring Policy, re-check a BG of > 240 in 2 hours, Routine 1255 (Given - Provider: Maribel Babcock, SHAR)1813 (Given - Provider: Maribel Babcock, SHAR)2059 (Given - Provider: Gamaliel Shelton, SHAR) 0848 (Given - Provider: Ann Mari RN)1130 (Due) liothyronine (Cytomel) tablet 5 mcg 5 mcg, Oral, DAILY, First dose on Fri02/08/20 at 0600, Until Discontinued, Routine 1401 ([facility] Hold - Provider: Admin Adt - Reason: Transfer to a Procedural area)1549 ([facility] Unhold - Provider: Admin Adt) 0622 (Given - Provider: Lissa Sabillon RN) 0518 (Given - Provider: Gamaliel Shelton, SHAR) losartan (Cozaar) tablet 12.5 mg 12.5 mg, Oral, DAILY, First dose on Fri02/08/20 at 1015, Until Discontinued, Routine 1134 (Given - Provider: Maribel Babcock RN) 0817 (Given - Provider: Ann Mari RN) magnesium sulfate 2 g in sterile water 50 mL (COMPLETED) 2 g, Intravenous, ONCE, 1 dose, On Fri02/08/20 at 0615, Administer over 120 Minutes 0623 (New Bag - Provider: Lissa Sabillon RN)0823 (Stopped - Provider: Maribel Babcock RN) magnesium sulfate 2 g in sterile water 50 mL (COMPLETED) 2 g, Intravenous, ONCE, 1 dose, On Fri02/09/20 at 0500, Administer over 120 Minutes 0517 (New Bag - Provider: Gamaliel Shelton, SHAR)0717 (Stopped - Provider: Gamaliel Shelton RN) metoprolol succinate XL (Toprol-XL) tablet 50 mg 50 mg, Oral, DAILY, First dose (after last modification) on Fri02/10/20 at 0900, Until Discontinued, DO NOT CRUSH OR OPEN, Routine metoprolol tartrate (Lopressor) tablet 12.5 mg (CANCELED) 12.5 mg, Oral, EVERY 12 HOURS SCHEDULED, First dose on Fri02/07/20 at 0900, Until Discontinued, Routine 0755 ([facility] Hold - Provider: Admin Adt - Reason: Transfer to a Procedural area)0900 (Automatically Held - Provider: Admin Adt)0906 ([facility] Unhold - Provider: Admin Adt)1401 ([facility]UL Hold - Provider: Admin Adt - Reason: Transfer to a Procedural area)1549 ([facility]UL Unhold - Provider: Admin Adt)2036 (Given - Provider: Lissa Sabillon RN) 0806 (Given - Provider: Maribel Babcock, SHAR) metoprolol tartrate (Lopressor) tablet 12.5 mg (CANCELED) 12.5 mg, Oral, EVERY 6 HOURS SCHEDULED, First dose (after last modification) on Fri02/08/20 at 1200, Until Discontinued, Hold for HR < 55, SBP < 90, Routine 1138 (Given - Provider: Maribel Babcock, SHAR)1812 (Given - Provider: Maribel Babcock, SHAR)2355 (Given - Provider: Gamaliel Shelton RN) 0518 (Given - Provider: Gamaliel Shelton RN) metoprolol tartrate (Lopressor) tablet 25 mg 25 mg, Oral, EVERY 12 HOURS SCHEDULED, First dose on Fri02/09/20 at 1215, Until Discontinued, Routine 1203 (Given - Provider: Ann Mari RN) pantoprazole EC (Protonix) tablet 40 mg 40 mg, Oral, DAILY, First dose on Fri02/07/20 at 1030, Until Discontinued 1049 (Given - Provider: Alyce Navarro RN)1401 ([facility] Hold - Provider: Admin Adt - Reason: Transfer to a Procedural area)1549 ([facility]UL Unhold - Provider: Admin Adt) 0806 (Given - Provider: Maribel Babcock, SHAR) 0817 (Given - Provider: Ann Mari RN) potassium, sodium phosphates (Neutra-Phos) 280-160-250 mg oral packet 3 g (COMPLETED) 3 g, Oral, EVERY 4 HOURS, 2 doses, First dose on Fri02/08/20 at 1000, Last dose on Fri02/08/20 at 1400, Take with full glass of water, Routine 0931 (Given - Provider: Maribel Babcock, SHAR)1405 (Given - Provider: Maribel Babcock, SHAR) sodium chloride 0.9 % (flush) flush 5 mL (CANCELED) 5 mL, Intravenous, EVERY 12 HOURS, First dose on Fri02/07/20 at 1015, Until Discontinued, Cath (Day of Procedure), Routine 1015 (Not Given - Provider: Alyce Navarro RN - Reason: Contraindicated)2215 (Not Given - Provider: Lissa Sabillon RN - Reason: See comment - Comment: given during assessment) 0808 (Given - Provider: Maribel Babcock, SHAR) sodium chloride 0.9 % (flush) flush 5 mL 5 mL, Intravenous, 2 TIMES DAILY, First dose on Fri02/07/20 at 1015, Until Discontinued, Routine 1051 (Given - Provider: Alyce Navarro RN)1401 ([facility] Hold - Provider: Admin Adt - Reason: Transfer to a Procedural area)1549 ([facility] Unhold - Provider: Admin Adt)2037 (Given - Provider: Lissa Sabillon RN) 0807 (Given - Provider: Maribel Babcock, RN)2100 (Given - Provider: Gamaliel Shelton, RN) 0820 (Given - Provider: Ann Shea V RN) Continuous Medication Order 02/07/2020 02/08/2020 02/09/2020 nitroGLYcerin 50 mg in dextrose 5% 250 mL infusion (CANCELED) 0-200 mcg/min (0-60 mL/hr), Intravenous, CONTINUOUS, Starting on Fri02/07/20 at 1015, Until Fri02/08/20 at 0922, Titrate to keep chest pain < 2/10. Start at 25 mcg/min and adjust by 25 mcg/min every 5 minutes. Do not exceed 200 mcg/min., Routine 0900 (New Bag - Provider: Alyce Navarro RN)1100 (Rate/Dose Verify - Provider: Alyce Navarro RN)1200 (Rate/Dose Verify - Provider: Alyce Navarro, RN)1401 ([facility] Hold - Provider: Admin Adt - Reason: Transfer to a Procedural area)1549 (MAR Unhold - Provider: Admin Adt)1600 (Rate/Dose Verify - Provider: Alyce Navarro, SHAR)1800 (Stopped - Provider: Alyce Navarro RN) PRN Medication Order 02/07/2020 02/08/2020 02/09/2020 acetaminophen (Tylenol) tablet 1,000 mg 1,000 mg, Oral, EVERY 6 HOURS PRN, Starting on Fri02/07/20 at 1017, Until Fri02/09/20 at 1430, Pain, Maximum dose of acetaminophen is 4000 mg from all sources in 24 hours. When ordered for pain, acetaminophen should be given even when other ordered pain medications are indicated. , STAT 1049 (Given - Provider: Alyce Navarro RN)1401 (MAR Hold - Provider: Admin Adt - Reason: Transfer to a Procedural area)1549 (MAR Unhold - Provider: Admin Adt) 0109 (Given - Provider: Lissa Sabillon RN) clonazePAM (KlonoPIN) tablet 0.5 mg 0.5 mg, Oral, 2 TIMES DAILY PRN, Starting on Fri02/07/20 at 0921, Until Fri02/09/20 at 1430, Anxiety, DO NOT SPLIT, CRUSH OR OPEN, Routine 1401 ([facility] Hold - Provider: Admin Adt - Reason: Transfer to a Procedural area)1549 ([facility] Unhold - Provider: Admin Adt) cyclobenzaprine (Flexeril) tablet 10 mg 10 mg, Oral, 3 TIMES DAILY PRN, Starting on Fri02/07/20 at 0921, Until Fri02/09/20 at 1430, Muscle spasms, Routine 1401 ([facility] Hold - Provider: Admin Adt - Reason: Transfer to a Procedural area)1549 ([facility] Unhold - Provider: Admin Adt) dextrose 10% infusion(Linked Group 3) 250 mL, at 1,000 mL/hr, Intravenous, EVERY 30 MIN PRN, Starting on Fri02/07/20 at 0652, Until Fri02/09/20 at 1430, For BG 50-70 mg/dL: Oral treatment preferred:?? If able to drink, give 120 mL Juice or Regular (not diet) soda OR If NPO, give 15 gram glucose 40% oral gel massaged into buccal mucosa OR if unconscious or uncooperative, give 25 gram (250 mL) Dextrose 10% IV over 15 minutes per protocol OR, if no IV access, 1 mg Glucagon IM. For BG less than 50 mg/dL: Oral treatment preferred:?? If able to drink, give 240 mL Juice or Regular (not diet) soda OR If NPO, give 30 gram glucose 40% oral gel massaged in buccal mucosa OR if unconscious or uncooperative, give 25 gram (250 mL) Dextrose 10% IV over 15 minutes per protocol OR, if no IV access, 1 mg Glucagon IM. Recheck BG in 30 minutes. May repeat juice/soda, gel, dextrose or glucagon once per episode. For persistent hypoglycemia, consider longer-acting treatment for the duration of the active insulin. 0755 ([facility] Hold - Provider: Admin Adt - Reason: Transfer to a Procedural area)0906 ([facility] Unhold - Provider: Admin Adt)1401 ([facility] Hold - Provider: Admin Adt - Reason: Transfer to a Procedural area)1549 ([facility] Unhold - Provider: Admin Adt) fentaNYL (PF) 50 mcg/mL injection (CANCELED) 25 mcg, Intravenous, Administer over 4 Hours, EVERY 30 MIN PRN, 4 doses, Starting on Fri02/07/20 at 0924, Until Fri02/07/20 at 1552, Pain, sheath removal, May repeat once while in Cath Recovery Unit, Cath (Recovery-Hospital Unit), Routine 1508 (Given - Provider: Ekaterina Romo RN) fentaNYL (PF) 50 mcg/mL injection (COMPLETED) 50 mcg, Intravenous, ONCE PRN, 1 dose, Starting on Fri02/07/20 at 1716, Until Fri02/07/20 at 1826, Pain, Pain with IABP pull, If medication ordered subcutaneously, do not administer more than 2 mL as a single injection., Routine 1826 (Given - Provider: Alyce Navarro, SHAR) fentaNYL 50 mcg/mL multi-dose injection (CANCELED) ONCE PRN, Starting on Fri02/07/20 at 0805, Until Fri02/07/20 at 0921, Cath (Intra-Procedure), Routine 0805 (Given - Provider: Maxime Trujillo, SHAR)0825 (Given - Provider: Maxime Trujillo RN)0829 (Given - Provider: Elsie Camacho RN) fentaNYL 50 mcg/mL multi-dose injection (CANCELED) ONCE PRN, Starting on Fri02/07/20 at 1411, Until Fri02/07/20 at 1527, Cath (Intra-Procedure), Routine 1411 (Given - Provider: Ekaterina Romo RN)1453 (Given - Provider: Ekaterina Romo RN - Comment: Chest pain with balloon inflations) glucagon (human recombinant) injection SolR 1 mg(Linked Group 3) 1 mg, Intramuscular, EVERY 30 MIN PRN, Starting on Fri02/07/20 at 0652, Until Fri02/09/20 at 1430, Low blood sugar, For BG 50-70 mg/dL: Oral treatment preferred:?? If able to drink, give 120 mL Juice or Regular (not diet) soda OR If NPO, give 15 gram glucose 40% oral gel massaged into buccal mucosa OR if unconscious or uncooperative, give 25 gram (250 mL) Dextrose 10% IV over 15 minutes per protocol OR, if no IV access, 1 mg Glucagon IM. For BG less than 50 mg/dL: Oral treatment preferred:?? If able to drink, give 240 mL Juice or Regular (not diet) soda OR If NPO, give 30 gram glucose 40% oral gel massaged in buccal mucosa OR if unconscious or uncooperative, give 25 gram (250 mL) Dextrose 10% IV over 15 minutes per protocol OR, if no IV access, 1 mg Glucagon IM. Recheck BG in 30 minutes. May repeat juice/soda, gel, dextrose or glucagon once per episode. For persistent hypoglycemia, consider longer-acting treatment for the duration of the active insulin., Routine 0755 ([facility] Hold - Provider: Admin Adt - Reason: Transfer to a Procedural area)0906 ([facility] Unhold - Provider: Admin Adt)1401 ([facility] Hold - Provider: Admin Adt - Reason: Transfer to a Procedural area)1549 ([facility] Unhold - Provider: Admin Adt) glucose (GLUTOSE) 40% oral geL(Linked Group 3) 15-30 g, Buccal, EVERY 30 MIN PRN, Starting on Fri02/07/20 at 0652, Until Fri02/09/20 at 1430, Low blood sugar, For BG 50-70 mg/dL: Oral treatment preferred:?? If able to drink, give 120 mL Juice or Regular (not diet) soda OR If NPO, give 15 gram glucose 40% oral gel massaged into buccal mucosa OR if unconscious or uncooperative, give 25 gram (250 mL) Dextrose 10% IV over 15 minutes per protocol OR, if no IV access, 1 mg Glucagon IM. For BG less than 50 mg/dL: Oral treatment preferred:?? If able to drink, give 240 mL Juice or Regular (not diet) soda OR If NPO, give 30 gram glucose 40% oral gel massaged in buccal mucosa OR if unconscious or uncooperative, give 25 gram (250 mL) Dextrose 10% IV over 15 minutes per protocol OR, if no IV access, 1 mg Glucagon IM. Recheck BG in 30 minutes. May repeat juice/soda, gel, dextrose or glucagon once per episode. For persistent hypoglycemia, consider longer-acting treatment for the duration of the active insulin. 1 tube contains 15 grams of glucose (net weight of tube = 37.5 grams., Routine 0755 ([facility] Hold - Provider: Admin Adt - Reason: Transfer to a Procedural area)0906 ([facility] Unhold - Provider: Admin Adt)1401 ([facility] Hold - Provider: Admin Adt - Reason: Transfer to a Procedural area)1549 ([facility] Unhold - Provider: Admin Adt) heparin (porcine) 1,000 unit/mL injection (CANCELED) ONCE PRN, Starting on Fri02/07/20 at 0823, Until Fri02/07/20 at 0921, Cath (Intra-Procedure), Routine 0823 (Given - Provider: Elsie Camacho RN) heparin (porcine) 1,000 unit/mL injection (CANCELED) ONCE PRN, Starting on Fri02/07/20 at 1420, Until Fri02/07/20 at 1527, Cath (Intra-Procedure), Routine 1420 (Given - Provider: Ekaterina Romo RN)1427 (Given - Provider: Elsie Camacho RN) iohexoL (Omnipaque) 350 mg/mL solution (CANCELED) ONCE PRN, Starting on Fri02/07/20 at 0847, Until Fri02/07/20 at 1527, Cath (Intra-Procedure), Routine 0847 (Given - Provider: Todd Garcia MD) iohexoL (Omnipaque) 350 mg/mL solution (CANCELED) ONCE PRN, Starting on Fri02/07/20 at 1529, Until Fri02/08/20 at 0922, Cath (Intra-Procedure), Routine 1529 (Given - Provider: Elsie Camacho RN - Comment: 260 ml total) lidocaine (XYLOCAINE) 10 mg/mL (1 %) injection 3 mg 3 mg (0.3 mL), Subcutaneous, ONCE PRN, 1 dose, Starting on Fri02/07/20 at 0924, Until Fri02/09/20 at 1430, for discomfort with PIV insertion, Routine 1401 ([facility] Hold - Provider: Admin Adt - Reason: Transfer to a Procedural area)1549 ([facility] Unhold - Provider: Admin Adt) midazolam (PF) (VERSED) injection 1 mg (COMPLETED) 1 mg, Intravenous, Administer over 4 Hours, EVERY 1 HOUR PRN, 2 doses, Starting on Fri02/07/20 at 0924, Until Fri02/07/20 at 1453, Sleep, For sheath removal, May repeat once while in Cath Recovery Unit., Cath (Recovery-Hospital Unit), Routine 1411 (Given - Provider: Ekaterina Romo RN)1453 (Given - Provider: Elsie Camacho RN) midazolam (PF) (VERSED) multi-dose injection (CANCELED) ONCE PRN, Starting on Fri02/07/20 at 0805, Until Fri02/07/20 at 0921, Cath (Intra-Procedure), Routine 0805 (Given - Provider: Maxime Trujillo RN)0829 (Given - Provider: Elsie Camacho RN) midazolam (PF) (VERSED) multi-dose injection (CANCELED) ONCE PRN, Starting on Fri02/07/20 at 1509, Until Fri02/07/20 at 1527, Cath (Intra-Procedure), Routine 1509 (Given - Provider: Elsie Camacho RN) nicotine polacrilex (NICORETTE) gum 2 mg 2 mg, Buccal, EVERY 2 HOURS PRN, Starting on Fri02/08/20 at 0157, Until Fri02/09/20 at 1430, Smoking cessation, Chew gum slowly. Do not swallow. Maximum of 48 mg/day., Routine 2100 (Given - Provider: Gamaliel Shelton RN) nitroGLYcerin 100 mcg/mL intracoronary dilution (CANCELED) ONCE PRN, Starting on Fri02/07/20 at 0814, Until Fri02/07/20 at 0921, Cath (Intra-Procedure), Routine 0814 (Given - Provider: Todd Garcia MD) nitroGLYcerin 100 mcg/mL intracoronary dilution (CANCELED) ONCE PRN, Starting on Fri02/07/20 at 1438, Until Fri02/07/20 at 1527, Cath (Intra-Procedure), Routine 1438 (Given - Provider: Elsie Camacho RN) nitroGLYcerin 50 mg in dextrose 5% 250 mL infusion (CANCELED) CONTINUOUS PRN, Starting on Fri02/07/20 at 0835, Until Fri02/07/20 at 0921, Cath (Intra-Procedure), Routine 0835 (New Bag - Provider: Elsie Camacho RN) nitroGLYcerin 50 mg in dextrose 5% 250 mL infusion (CANCELED) CONTINUOUS PRN, Starting on Fri02/07/20 at 1436, Until Fri02/07/20 at 1527, Cath (Intra-Procedure), Routine 1436 (New Bag - Provider: Elsie Camacho RN - Comment: Rate change) nitroGLYcerin 50 mg in dextrose 5% 250 mL infusion (CANCELED) CONTINUOUS PRN, Starting on Fri02/07/20 at 1543, Until Fri02/08/20 at 0922, Cath (Intra-Procedure), Routine 1543 (New Bag - Provider: Ekaterina Romo RN)1700 (Rate/Dose Change - Provider: Alyce Navarro RN)1728 (Rate/Dose Change - Provider: Alyce Navarro RN) potassium chloride ER (K-Dur/Klor-Con) tablet 20 mEq(Linked Group 4) 20 mEq, Oral, EVERY 4 HOURS PRN, Starting on Fri02/07/20 at 1642, Until Fri02/09/20 at 1430, hypokalemia, Administer for serum potassium (mMol/L) of 3.9 - 4 See instructions for Potassium Protocol in online policies., Routine 2205 (See Alternative - Provider: Lissa Sabillon RN) potassium chloride ER (K-Dur/Klor-Con) tablet 40 mEq(Linked Group 4) 40 mEq, Oral, EVERY 4 HOURS PRN, Starting on Fri02/07/20 at 1642, Until Fri02/09/20 at 1430, hypokalemia, Administer for serum potassium (mMol/L) of 3.6 - 3.8 See instructions for Potassium Protocol in online policies., Routine 2205 (Given - Provider: Lissa Sabillon RN) sodium chloride 0.9 % (flush) flush 5-20 mL 5-20 mL, Intravenous, EVERY 1 MIN PRN, Starting on Fri02/07/20 at 0924, Until Fri02/09/20 at 1430, flush, Flush pertains to all indwelling lines. Flush per protocol found in the job aid using the link provided on this medication record., Routine 1401 ([facility] Hold - Provider: Admin Adt - Reason: Transfer to a Procedural area)1549 ([facility] Unhold - Provider: Admin Adt) sodium chloride 0.9% infusion (CANCELED) CONTINUOUS PRN, Starting on Fri02/07/20 at 0847, Until Fri02/07/20 at 1527, Cath (Intra-Procedure) 0847 (New Bag - Provider: Todd Garcia MD) verapamiL (Isoptin) injection (CANCELED) ONCE PRN, Starting on Fri02/07/20 at 0814, Until Fri02/07/20 at 0921, Administer over 2 Minutes, Cath (Intra-Procedure) 0814 (Given - Provider: Todd Garcia MD) Linked Groups Order Group 1: POCT Fingerstick Glucose (CANCELED) Routine, 4 TIMES DAILY BEFORE MEALS & AT BEDTIME, First occurrence on Fri02/07/20 at 0700, Until Specified, Consider choosing FOUR TIMES A DAY BEFORE MEALS AND AT BEDTIME as frequency for: Patients who have a good hypoglycemia awareness: -Patients who are eating meals during the day and sleeping at night -Patient who are otherwise stable And insulin lispro (HumaLOG) VIAL injection 1-6 Units (CANCELED)Jump to med 1-6 Units, Subcutaneous, 3 TIMES DAILY BEFORE MEALS, First dose on Fri02/07/20 at 0745, Until Discontinued, CORRECTION BOLUS [1-6 Units] Moderate Sliding Scale: Correction factor 20 (1 unit of insulin is expected to drop the glucose 20 mg/dL) BG 140 - 160 Give 1 unit BG 161 - 180 Give 2 units BG 181 - 200 Give 3 units BG 201 - 220 Give 4 units BG 221 - 240 Give 5 units BG greater than 240, give 6 units and recheck BG in 2 hours. - If recheck BG is LESS than 240, give no insulin and resume schedule. - If recheck BG is GREATER than 240, give 6 units and repeat BG in 2 hours (no more than 3 times) & call for new insulin orders. DO NOT hold if NPO, unless specifically told to do so. Per Blood Glucose Monitoring Policy, re-check a BG of > 240 in 2 hours., Routine Group 2: POCT Fingerstick Glucose (CANCELED) Routine, 4 TIMES DAILY BEFORE MEALS & AT BEDTIME, First occurrence on Fri02/08/20 at 1100, Until Specified, Consider choosing FOUR TIMES A DAY BEFORE MEALS AND AT BEDTIME as frequency for: Patients who have a good hypoglycemia awareness: -Patients who are eating meals during the day and sleeping at night -Patient who are otherwise stable And insulin lispro (HumaLOG) VIAL injection 2-12 UnitsJump to med 2-12 Units, Subcutaneous, 4 TIMES DAILY BEFORE MEALS & NIGHTLY, First dose (after last modification) on Fri02/08/20 at 1130, Until Discontinued, CORRECTION BOLUS [2-12 Units] Correction Factor 10 (1 unit of insulin is expected to drop the glucose 10 mg/dL) BG 140 - 160 Give 2 units BG 161 - 180 Give 4 units BG 181 - 200 Give 6 units BG 201 - 220 Give 8 units BG 221 - 240 Give 10 units BG greater than 240, give 12 units and recheck BG in 2 hours. - If recheck BG is LESS than 240, give no insulin and resume schedule. - If recheck BG is GREATER than 240, give 12 units and repeat BG in 2 hours (no more than 3 times) & call for new insulin orders. DO NOT hold if NPO, unless specifically told to do so. Per Blood Glucose Monitoring Policy, re-check a BG of > 240 in 2 hours, Routine Group 3: glucose (GLUTOSE) 40% oral geLJump to med 15-30 g, Buccal, EVERY 30 MIN PRN, Starting on Fri02/07/20 at 0652, Until Fri02/09/20 at 1430, Low blood sugar, For BG 50-70 mg/dL: Oral treatment preferred:?? If able to drink, give 120 mL Juice or Regular (not diet) soda OR If NPO, give 15 gram glucose 40% oral gel massaged into buccal mucosa OR if unconscious or uncooperative, give 25 gram (250 mL) Dextrose 10% IV over 15 minutes per protocol OR, if no IV access, 1 mg Glucagon IM. For BG less than 50 mg/dL: Oral treatment preferred:?? If able to drink, give 240 mL Juice or Regular (not diet) soda OR If NPO, give 30 gram glucose 40% oral gel massaged in buccal mucosa OR if unconscious or uncooperative, give 25 gram (250 mL) Dextrose 10% IV over 15 minutes per protocol OR, if no IV access, 1 mg Glucagon IM. Recheck BG in 30 minutes. May repeat juice/soda, gel, dextrose or glucagon once per episode. For persistent hypoglycemia, consider longer-acting treatment for the duration of the active insulin. 1 tube contains 15 grams of glucose (net weight of tube = 37.5 grams., Routine Or dextrose 10% infusionJump to med 250 mL, at 1,000 mL/hr, Intravenous, EVERY 30 MIN PRN, Starting on Fri02/07/20 at 0652, Until Fri02/09/20 at 1430, For BG 50-70 mg/dL: Oral treatment preferred:?? If able to drink, give 120 mL Juice or Regular (not diet) soda OR If NPO, give 15 gram glucose 40% oral gel massaged into buccal mucosa OR if unconscious or uncooperative, give 25 gram (250 mL) Dextrose 10% IV over 15 minutes per protocol OR, if no IV access, 1 mg Glucagon IM. For BG less than 50 mg/dL: Oral treatment preferred:?? If able to drink, give 240 mL Juice or Regular (not diet) soda OR If NPO, give 30 gram glucose 40% oral gel massaged in buccal mucosa OR if unconscious or uncooperative, give 25 gram (250 mL) Dextrose 10% IV over 15 minutes per protocol OR, if no IV access, 1 mg Glucagon IM. Recheck BG in 30 minutes. May repeat juice/soda, gel, dextrose or glucagon once per episode. For persistent hypoglycemia, consider longer-acting treatment for the duration of the active insulin. Or glucagon (human recombinant) injection SolR 1 mgJump to med 1 mg, Intramuscular, EVERY 30 MIN PRN, Starting on Fri02/07/20 at 0652, Until Fri02/09/20 at 1430, Low blood sugar, For BG 50-70 mg/dL: Oral treatment preferred:?? If able to drink, give 120 mL Juice or Regular (not diet) soda OR If NPO, give 15 gram glucose 40% oral gel massaged into buccal mucosa OR if unconscious or uncooperative, give 25 gram (250 mL) Dextrose 10% IV over 15 minutes per protocol OR, if no IV access, 1 mg Glucagon IM. For BG less than 50 mg/dL: Oral treatment preferred:?? If able to drink, give 240 mL Juice or Regular (not diet) soda OR If NPO, give 30 gram glucose 40% oral gel massaged in buccal mucosa OR if unconscious or uncooperative, give 25 gram (250 mL) Dextrose 10% IV over 15 minutes per protocol OR, if no IV access, 1 mg Glucagon IM. Recheck BG in 30 minutes. May repeat juice/soda, gel, dextrose or glucagon once per episode. For persistent hypoglycemia, consider longer-acting treatment for the duration of the active insulin., Routine Group 4: potassium chloride ER (K-Dur/Klor-Con) tablet 20 mEqJump to med 20 mEq, Oral, EVERY 4 HOURS PRN, Starting on 02/07/20 at 1642, Until 02/09/20 at 1430, hypokalemia, Administer for serum potassium (mMol/L) of 3.9 - 4 See instructions for Potassium Protocol in online policies., Routine Or potassium chloride ER (K-Dur/Klor-Con) tablet 40 mEqJump to med 40 mEq, Oral, EVERY 4 HOURS PRN, Starting on Fri02/07/20 at 1642, Until Fri02/09/20 at 1430, hypokalemia, Administer for serum potassium (mMol/L) of 3.6 - 3.8 See instructions for Potassium Protocol in online policies., Routine documented in this encounter Care Teams Cultural Centre Manager Relationship Specialty Start Date End Date Francy Lowe, PRODUCT DEVELOPMENT DIRECTOR PCP - General Family Medicine 10/19/19 02/11/21 documented as of this encounter
--- OUTSIDE RECORDS SUMMARY | 2023-11-25 15:34 | XMS_ITS | Encounter Summary ---
[facility] Organization [facility] [place] [address] Care Team Providers Care Information Manager Name Role Phone Francy Lowe APRN Primary Care Provider + Reason for Visit * Auth/Cert Specialty Diagnoses / Procedures Referred By Jasson mendoza Referred To Contact Diagnoses NSTEMI (non-ST elevated myocardial infarction) nstemi Referral ID Status Reason Start Date Expiration Date Visits Re quested Visits Authorized [id number] 1 1 Encounter Details Date Type Department Care Team (Late st Contact Info) Description 02/07/2020 7:30 AM EDT - 02/07/2020 8:30 AM EDT [place] [id number] Todd Garcia MD [facility] [place] [address] CARDIAC CATHETERIZATION Social History Tobacco Use Types Packs/Day Years [...] Sign Reading Time Taken Comments Blood Pressure 148/118 02/07/2020 7:54 AM EDT Pulse 84 02/07/2020 7:54 AM EDT Temperature - - Respiratory Rate 16 02/07/2020 8:15 AM EDT Oxygen Saturation 98% 02/07/2020 8:15 AM EDT Inhaled Oxygen Concentration - - Weight 117.5 kg (259 lb 0.7 oz) 02/07/2020 6:18 AM EDT Height 165.1 cm (5' 5) 02/07/2020 6:18 AM EDT Body Mass Index 42.63 02/07/2020 6:18 AM EDT documented in this encounter Discharge Summaries * Maria Bolaños MD - 02/09/2020 12:14 PM EDT Discharge Summary Patient Name: Danielle Mills Patient Age: 59 y.o. Language: Hebrew Race: White Ethnicity: Not nor Admit date: [...] DM, dyslipidemia, hypothyroidism, obesity/BEN was transferred from [facility] for NSTEMI. ?? Pt reports 1 week [...] cough, leg swelling. No palpitations. ?? At [facility] starting 9 pm, VSS stable 113/73 HR 85 bpm, RR 19 Questionable CLEMENTINA in V1-V2. Troponin 0.24, lipase 117 CT abdomen/plevis reportedly unremarkable. Pt is s/p CCY She received 4mg IV morphine , Zofran She was started on Heparin and NTG drip. Received ASA 324mg @ 1:32 am at [facility] Plavix 300mg @ 1:55am and then 300mg @2:21am. Consulted with Cards fellow at [facility] and decided to transfer. Hospital Course: #NSTEMI s/p PCI with JEANETH to LAD, LPA and LPL1 Admitted to the cardiology service. The patient was taken to the laboratory equipment cleaner and noted to have 3 vessel disease. [...] (Calculated): 43.1 Height: 165.1 cm (5' 5) (02/07/20617) Weight: 116.2 kg (256 lb 3.2 oz) (02/09/20 06) Functional and Cognitive Status: Functionally and cognitively intact Admission Diagnoses: NSTEMI (non-ST elevated myocardial infarction) [I21.4] Discharge Diagnoses: NSTEMI with 3VD s/p 3 JEANETH Admission Condition: fair Consults: cardiology Important Studies and Lab Data: Labs: Last wbc, hgb, hct plt Recent Labs 02/09/20 0334 WBC 7.8 HGB 13.5 HCT 42.8 Last 3 Lytes Recent Labs 02/09/20 0334 02/08/20 0401 02/07/20 20502/07/20 0729 NA 138 138 -- -- 139 [...] priority for the procedure was Emergent. [facility]. LVEF [...] appointments: During 8am-5pm Friday through Friday call [phone] to speak with a nurse in the cardiology clinic All other times call [phone] and ask to speak to the electromechanical inspector career development consultant. Follow up Appointments: ?? Francy Lowe PCP on Friday02/21/20 @ 2:30pm Dr. Carlos Jenkins ([facility] Cardiology) on 03/02/20 @ 2:45pm Future Appointments Date Time Provider Department Center 03/07/2020 10:00 AM Marta Rivera MD [facility] [place] PCP: Francy Lowe APRN at [phone] Your Inpatient Doctor(s) at [facility]: Rell Gutierrez MD - Attending physician Your Primary Care Provider: Francy Lowe APRN [address] / [place] [address] For questions regarding issues relating to your hospitalization on the Hospital Medicine Service, please contact your inpatient physician through the [facility] Shotblaster [phone]. Issues after hours and on weekends will be handled by the Hospitalist staff on-call. General Instructions None Future Appointments and Orders Future Appointments and Orders Future Appointments Provider Department Dept Phone 03/07/2020 10:00 AM Marta Rivera MD Endocrinology at [facility] Arrive at: Home [phone] Please do not come in for this visit. Your provider will call you at the number you provided. Future Orders Complete By Expires Referral to Cardiac Rehab [[id number] Custom] As directed Process Instructions: If no progress note charted, please enter Clinical details in comments. Scheduling Instructions: Questions: My question or request is: NSTEMI, PCI- CR at [facility] Discharge References/Attachments None documented in this encounter [...] appointments: During 8am-5pm Friday through Friday call [phone] to speak with a nurse in the cardiology clinic All other times call [phone] and ask to speak to the electromechanical inspector career development consultant. Follow up Appointments: ?? Francy Lowe PCP on Friday02/21/20 @ 2:30pm Dr. Carlos Jenkins ([facility] Cardiology) on 03/02/20 @ 2:45pm Future Appointments Date Time Provider Department Center 03/07/2020 10:00 AM Marta Rivera MD [facility] [place] PCP: Francy Lowe APRN at [phone] Your Inpatient Doctor(s) at [facility]: Rell Gutierrez MD - Attending physician Your Primary Care Provider: Francy Lowe APRN [address] / [place] [address] For questions regarding issues relating to your hospitalization on the Hospital Medicine Service, please contact your inpatient physician through the [facility] Shotblaster [phone]. Issues after hours and on weekends will [...] of this encounter Progress Notes * Clarisa Rees RN - 02/09/2020 12:21 PM EDT CARE [...] that she works with on this at [facility]. Also states that she is on a financial program at [facility]. CM encouraged patient to call the financial assistance number provided on the brochure for screening and to discuss the bill from this hospitalization to determine what could potentially be used towards her Medicaid spend down as well. Patient verbalized understanding and denies any further questions or concerns at this time. CM updated REGULATORY ADMINISTRATOR and completed consult that was placed for social work re: financial concerns. Clarisa Rees RN, MSN Seconds Inspector - Cardiology Office of Care Management Pager: [phone] Work * Rell Gutierrez MD - 02/09/2020 7:26 AM EDT Inpatient Cardiology Progress Note Patient Name: Danielle Mills Date of Admission: 02/07/2020 ( Hospital Day 2 days ) Service: S2 ID: Danielle Mills 59 y/o F with HTN, DM, dyslipidemia, hypothyroidism, obesity/BEN was transferred from [facility] for NSTEMI. Cardiac cath this [...] deficit Labs Recent Labs 02/09/20 0334 02/08/20 0401 02/07/20 0729 WBC 7.8 7.9 7.8 HGB 13.5 13.5 13.7 HCT 42.8 42.6 45.2 PLATELET 168 189 173 Recent Labs 02/09/20 0334 02/08/20 0401 02/07/20205402/07/20 0729 NA 138 138 -- -- 139 K 3.8 4.4 3.7 < > 4.1 CL 100 102 -- -- 105 CO2 27 -- -- 21* BUN 12 8 -- -- 7* CREATININE 0.78 0.66* -- -- 0.69* < > = values in this interval not displayed. Recent Labs 02/07/20 0729 AST 35* ALT 36* ALKPHOS 72 BILITOT 0.4 BILIDIR 0.1 Recent Labs 02/09/20 0334 02/08/20 0401 02/07/20 10502/07/20 0729 CALCIUM 8.0* 7.9* -- 8.1* MAGNESIUM 0.93 0.91 1.00 -- PHOS 2.8 1.9* 3.0 -- Recent Labs 02/07/20 0729 INR 1.0 PT 11.8 Recent Labs 02/07/20 1710 02/07/20 10502/07/20 0729 TROPONINT 0.27* 0.13* 0.10* Imaging/Studies: XR Chest One View Final Result Similar pattern of mild vascular congestive changes in the setting of intra-aortic pump. Thank you for letting us participate in the care of this patient. For questions regarding this report, please contact the number below. Electronically signed by: Trace Lopez MD, [facility] ([phone]), at 02/08/2020 3:54 AM Cardiac Catheterization Final Result XR Chest One View Final Result Findings suggestive of mild volume overload without kuldeep pulmonary edema. Thank you for letting us participate in the care of this patient. For questions regarding this report, please contact the number below. Electronically signed by: Varghese Richmond MD, [facility] ([phone]), at 02/07/2020 9:53 AM Cardiac Catheterization Final Result CARDIAC CATH CASE [...] DM, dyslipidemia, hypothyroidism, obesity/BEN was transferred from [facility] for NSTEMI. S/p high risk PCI with [...] home Maria Bolaños MD PGY1 Cardiology S2 #[id number] CARDIOLOGY ATTENDING NOTE Patient: Danielle Mills Date [...] anterior ST-T wave changes. Went urgently to laboratory equipment cleaner due to ongoing pain on 02/06 - 3VD including NAME PLATE STAMPING MACHINE OPERATOR RCA; IABP placed due to ongoing pain. [...] per Dr. Bolaños. Rell Gutierrez MD, MPH, VI, [facility] Pager [phone] Cardiovascular Fine Wire DrawerProtein [place]ist[place] [address] * Rell Gutierrez MD - 02/08/2020 7:04 AM EDT Inpatient Cardiology Progress Note Patient Name: Danielle Mills Date of Admission: 02/07/2020 ( Hospital Day 1 day ) Service: S2 ID: Danielle Mills 59 y/o F with HTN, DM, dyslipidemia, hypothyroidism, obesity/BEN was transferred from [facility] for NSTEMI. Cardiac cath this [...] BP: (88-132)/(33-79) Respiratory Rate Resp: 17 Resp: [9-27] SpO2 SpO2: 91 % SpO2: [91 %-100 [...] 42.6 45.2 PLATELET 189 173 Recent Labs 02/08/2040002/07/20205402/07/20 17102/07/20 0729 NA 138 -- -- 139 K 4.4 3.7 4.0 4.1 CL 102 -- -- 105 CO2 27 -- -- 21* BUN 8 -- -- 7* CREATININE 0.66* -- -- 0.69* Recent Labs 02/07/20 0729 AST 35* ALT 36* ALKPHOS 72 BILITOT 0.4 BILIDIR 0.1 Recent Labs 02/08/2040002/07/20 1055 02/07/20 0729 CALCIUM 7.9* -- 8.1* [...] this report, please contact the number below. Electronically signed by: Trace Lopez MD, [facility] ([phone]), at 02/08/2020 3:54 AM Cardiac Catheterization Final Result XR Chest One View Final Result Findings suggestive of mild volume overload without kuldeep pulmonary edema. Thank you for letting us participate in the care of this patient. For questions regarding this report, please contact the number below. Electronically signed by: Varghese Richmond MD, [facility] ([phone]), at 02/07/2020 9:53 AM Cardiac Catheterization Final Result CARDIAC CATH CASE [...] DM, dyslipidemia, hypothyroidism, obesity/BEN was transferred from [facility] for NSTEMI. S/p high risk PCI with [...] floor Maria Bolaños MD PGY1 Cardiology S2 #[id number] CARDIOLOGY ATTENDING NOTE Patient: Danielle Mills Date [...] anterior ST-T wave changes. Went urgently to laboratory equipment cleaner due to ongoing pain on 02/06 - 3VD including NAME PLATE STAMPING MACHINE OPERATOR RCA; IABP placed due to ongoing pain. [...] Rell Gutierrez MD, MPH, RPVI, FACC Pager [phone] Cardiovascular Fine Wire DrawerProtein Scientistmanager [place] [address] * Carmella Alexander - 02/07/2020 9:02 PM [...] Carmella Alexander MD, PGY-2 Cardiology S1/S2, Pager [phone] 02/07/2020 * Ney Sylvester MD - 02/07/2020 1:58 PM EDT Danielle Mills is a 59 y.o. female referred for cardiac catheterization by Dr. Gutierrez for evaluation of coronary arteries . 59 y/o F with HTN, DM, dyslipidemia, hypothyroidism, obesity/BEN was transferred from [facility] for NSTEMI. Cardiac cath this AM showed [...] DM, dyslipidemia, hypothyroidism, obesity/BEN was transferred from [facility] for NSTEMI. Cardiac cath this AM showed [...] 6:50 AM EDT 0630 Pt admitted for [facility] with c/o chest pain. Pt states she [...] 02/07/2020 Inpatient Attending: Rell Gutierrez MD PCP: Franyc Lowe APRN Presenting Diagnosis/Chief Complaint: Transfer from [facility] with NSTEMI/[place]. Active Problem List: Active Hospital Problems Diagnosis ??? Non-ST elevation myocardial infarction (NSTEMI) Resolved Hospital Problems No resolved problems to display. History of Present Illness: 59 y/o F with HTN, DM, dyslipidemia, hypothyroidism, obesity/BEN was transferred from [facility] for NSTEMI. Pt reports 1 week of [...] fever, cough, leg swelling. No palpitations. At [facility] starting 9 pm, VSS stable 113/73 HR 85 bpm, RR 19 Questionable CLEMENTINA in V1-V2. Troponin 0.24, lipase 117 CT abdomen/plevis reportedly unremarkable. Pt is s/p CCY She received 4mg IV morphine , Zofran She was started on Heparin and NTG drip. Received ASA 324mg @ 1:32 am at [facility] Plavix 300mg @ 1:55am and then 300mg @2:21am. Consulted with Cards fellow at [facility] and decided to transfer. Personal and social [...] 2.49) performed by Nimesh Alicia MD at [facility] ??? RECTOCELE REPAIR 2014 Dr. Boo @ [facility] ??? SHOULDER SURGERY Left 06/05/2017 L [...] file Gets together: Not on file Attends hindu service: Not on file Active member of [...] DM, dyslipidemia, hypothyroidism, obesity/[facility] TREATMENT PLAN: #[place]/NSTEMI -ANN score 111 , DENIA score 4 -C/w Heparin and NTG drip. - Received ASA 324mg @ 1:32 am at [facility] -Plavix 300mg @ 1:55am and [...] attempt. Thank you. Arnaud Teague, MSN, RN-, [facility] Tobacco Ironworker Apprentice [employer] [facility] Pager #[phone] * Consult Note - Chelsey Beltre RN [...] in an outpatient cardiac rehabilitation program at [facility] was discussed. Patient agrees to [...] Ongoing (Interventions Implemented as Appropriate) 02/08/20 0800 02/08/20 4655 Plan of Care Review Progress -- improving [...] Ongoing (Interventions Implemented as Appropriate) 02/08/20 0800 02/08/20 1400 02/08/20 1600 Mcdaniel Fall Risk History [...] Outcome: Ongoing (Interventions Implemented as Appropriate) 02/08/20 08 Safety Interventions Isolation Precautions standard precautions maintained [...] Stated by Patient: chest pain/NSTEMI. Transferred from [facility] Last COVID test date and [...] spouse would be surrogate decision maker per [place] surrogate decision making law. (Only good for 90 days) Any patient receiving care at [facility] must abide by [place] law. The hierarchy for surrogate decision making [...] (i) The agent with financial power of corporate associate attorney or a conservator appointed in accordance [...] at DC: none Home Address Listed as: [address] [facility] [address] Social & Family Supports: Extended Emergency Contact Information Primary Emergency Contact: Andrés Mills Address: [address] [facility] [address] [facility] Mobile Relation: Spouse Community Resources being provided [...] Secondary Insurance: N/A Prescription Coverage: Preferred Pharmacy: [id number] - [place], [place] - [address] [place] [address] [id number] - [place], [place] - [address] [facility] [address] [facility] [address] [place], [place] [address] [facility] [address] [facility] [address] Primary Care Provider: Francy Lowe, [place] [phone] Patient/Caregiver Goals of Treatment: DC home Potential [...] service for NSTEMI as a transfer from [facility]. Plan: A member of the Care Management team will continue to monitor progress, follow for continuityof care and assist with transition of care planning. Clarisa Rees, RN, MSN, extrusion die template maker Office of Care Management Pager: [phone] Work * Brief Op Note - Todd Garcia MD - 02/07/2020 3:26 PM EDT Images from the original note were not included. Preliminary Cardiac Catheterization Procedure Note: Patient Name: Danielle Mills DOB: [id number] MR#: [id number] Case Date: 02/07/2020 Shotblaster: Surgeon(s) and Role: * Todd Garcia MD - Primary Preoperative diagnosis: ?CAD Postoperative diagnosis: *ASCVD * Procedure(s) performed: Stent insertion, coronary Access: left SAFEKEEPING CLERK--> Perclosed A time-out was conducted prior to [...] Procedure Note: Patient Name: Danielle Mills : [id number] MR#: [id number] Case Date: 02/07/2020 Shotblaster: Surgeon(s) and Role: * Todd Garcia MD - Primary * David Vigil MD - Fellow Preoperative diagnosis: ASCVD Postoperative diagnosis: * ASCVD * Procedure(s) performed: [facility] Coronary angio IABP insertion Access: right radial--> TR band, right SAFEKEEPING CLERK--> IABP inserted A time-out was conducted prior [...] AM EDT Cardiac Surgery Consultation Note Danielle Arnaldo McgheeJarrett is seen at the request of Dr. Gutierrez for the evaluation of MVCAD. HPI: She is a 59 y.o. year old female who was transferred here this am for NSTEMI. She reported 1 week of epigastric pain that she thought was related to GERD. She has had several work ups in the past at the ED at [facility] for epigastric pain that had been negative for acute findings. Thispresentation she was found to have a slight troponin elevation and slight ST elevation in V1-V6 with t wave inversions. Cath this am showed multivessel disease including LAD, Circ and RCA. She was still having some chest pain on low dose nitro. An IABP was placed in the laboratory equipment cleaner and she is being transferred to CV. She received 600mg of plavix this morning. [...] 2.49) performed by Nimesh Alicia MD at [facility] ??? RECTOCELE REPAIR 2014 Dr. Boo @ [facility] ??? SHOULDER SURGERY Left 06/05/2017 L [...] issues/chronic pain. 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 Family- lives with Andrés and his mother. [...] Meds: Scheduled Meds: ??? heparin (porcine) ??? [JUL Hold] aspirin 81 mg Oral Daily ??? [JUL Hold] insulin lispro 1-6 Units Subcutaneous TID AC ??? [JUL Hold] metoprolol tartrate 12.5 mg Oral Q12H DELORIS Continuous Infusions: ??? nitroGLYcerin 40 mcg/min (02/07/20 0835) PRN Meds:.[JUL Hold] glucose 40% oral geL OR [JUL Hold] dextrose 10% OR [JUL Hold] glucagon(human recombinant), fentaNYL (PF), verapamiL, midazolam [...] will be determined by the Attending Surgeon. SULLY Skinner. Thank you very much for the opportunity to be involved in the care of Danielle Mills. Signed: JUAN PABLO [facility] Section of Cardiac Surgery Date: 02/07/2020 59 yo female who presents with stuttering MT, on plavix, anterior WMA. CAth shows a very tight proximal LAD stenosis, distal LCX disease, non-dominant RCA which is occluded. The distal LCX circulation is not a good target for bypass surgery. The RCA is not a target. The LAD is a good target. We could end up surgery with only a NAIR to the LAD. Right now on plavix, with an acute MT, on an IABP, with BMI 43 and [...] further details. Vik Justin MD 02/07/2020 Pager [phone] documented in this encounter Plan of Treatment [...] 4:21 PM EDT CARDIAC CATHETERIZATION Routine 02/07/20 20 3:21 PM EDT RAPID COVID-19 PCR ([facility]) Routine 02/07/2020 12:30 PM EDT POCT GLUCOSE [...] 7:29 AM EDT DIFFERENTIAL, AUTOMATED STAT 02/07/20 7:29 AM EDT SEDIMENTATION RATE STAT 02/07/2020 [...] (ABNORMAL) POCT Glucose (02/09/2020 6:55 AM EDT) POC Glucose 228(H) 65 - 199 mg/dL [facility] Comment: Supplemental ranges: <140 mg/dL before meals <180 mg/dL all other times of the day Blood specimen (specimen) 02/09/2020 6:55 AM EDT 02/09/2020 6:55 AM EDT Rell Gutierrez MD POINT OF CARE TEST O RDERABLES [facility] [place] [address] * Differential, Automated (02/09/2020 3:34 AM EDT) Pathologist [facility] Neutrophils % 67.7 % [facility] Neutr Abs (ANC) 5.30 1.70 - 6.10 x10(3)/[facility] Lymphocytes % 20.9 % [facility] Lymphocytes Abs 1.6 0.9 - 3.2 x10(3)/[facility] Monocytes % 9.2 % [facility] Monocyte Abs 0.7 0.3 - 0.9 x10(3)/[facility] Eosinophils % 1.5 % [facility] Eosinophils Abs 0.1 0.0 - 0.4 x10(3)/[facility] Basophils % 0.4 % [facility] Basophils Abs 0.0 0.0 - 0.1 x10(3)/[facility] Immature Gran % 0.30 % [facility] Comment: Immature granulocytes(IG's)percentage and absolute count will include metamyelocytes, myelocytes, and promyelocytes. Blood smears from CBCs yielding IG's will be scanned manually for concordance. If this scan disagrees with the automated IG or if promyelocytes are noted, a manual differential will be performed. Lorraine Gran Abs 0.02 0.00 - 0.04 x10(3)/[facility] Blood specimen (specimen) 02/09/2020 3:34 AM EDT 02/09/2020 3:42 AM EDT Narrative Resulting Agency Comment Spec In Lab Maria Bolaños MD HEMATOLOGY ORDERABLE S [facility] [place] [address] * (ABNORMAL) Hemogram (02/09/2020 3:34 AM EDT) WBC 7.8 4.0 - 9.5 x10(3)/[facility] RBC 5.11 4.00 - 5.21 x10(6)/[facility] Hemoglobin 13.5 11.7 - 15.5 gm/dL [facility] Hematocrit 42.8 35.7 - 45.8 % [facility] MCV 83.8 82.6 - 94.4 [facility] MCH 26.4(L) 27.1 - 32.0 pg [facility] MCHC 31.5(L) 31.7 - 35.0 gm/dL [facility] Platelets 168 145 - 357 x10(3)/[facility] RDWSD 43.8 37.0 - 46.0 [facility] RDWCV 14.3(H) 11.5 - 14.1 % [facility] MPV 11.5 7.6 - 12.9 [facility] nRBC % Auto 0.0 % [facility] nRBC Abs Auto 0.000 0.000 - 0.000 x10(3)/[facility] Blood specimen (specimen) 02/09/2020 3:34 AM EDT 02/09/2020 3:42 AM EDT Narrative Resulting Agency Comment Spec In Lab Maria Bolaños MD HEMATOLOGY ORDERABLE S [facility] [place] [address] * Phosphorus (02/09/2020 3:34 AM EDT) Pathologist [facility] Phosphorus 2.8 2.5 - 4.5 mg/dL [facility] Blood specimen (specimen) 02/09/2020 3:34 AM EDT 02/09/2020 3:42 AM EDT Narrative Resulting Agency Comment Spec In Lab Rell Gutierrez MD CHEMISTRY ORDERABLES Performing Organization Address City/[facility]/ZIP Co de Phone Number [facility] [place] [address] * Magnesium (02/09/2020 3:34 AM EDT) [facility] Magnesium 0.93 0.69 - 1.07 mmol/L [facility] Blood specimen (specimen) 02/09/2020 3:34 AM EDT 02/09/2020 3:42 AM EDT Narrative Resulting Agency Comment Spec In Lab Rell Gutierrez MD CHEMISTRY ORDERABLES Performing Organization Address [facility] Co de Phone Number [facility] [place] [address] * (ABNORMAL) Basic Metabolic Panel (non-fasting) (02/09/2020 3:34 AM EDT) Pathologist [facility] Glucose Lvl 249(H) 65 - 199 mg/dL [facility] Comment:Diabetes: >=200 mg/d L plus symptoms BUN 12 8 - 18 mg/dL [facility] Creatinine 0.78 0.70 - 1.20 mg/dL [facility] Sodium 138 135 - 145 mmol/L [facility] Potassium 3.8 3.5 - 5.0 mmol/L [facility] Comment: Please note: ??Patients with WBC >100,000 may have falsely elevated Potassium levels. ??For accurate Potassium quantification in these patients send serum separator tube (gold top) for subsequent determinations. ??Contact the Clinical Chemistry Laboratory if there are any questions. Chloride 100 98 - 107 mmol/L [facility] CO2 29 22 - 31 mmol/L [facility] [facility] Anion Gap 9 5 - 15 mmol/L [facility] Calcium 8.0(L) 8.5 - 10.5 mg/dL [facility] Estimated GFR 84 >=60 mL/min/1. 73 m?? [facility] Comment: The eGFR was calculated using the CKD-EPI equation. As with all creatinine based estimates of kidney function, eGFR values calculated with the CKD-EPI equation are not accurate in patients with acute kidney failure, extremes of body mass or the acutely ill. http://[employer]/[facility]KEENEReliance [employer]k eGFR 97 >=60 mL/min/1. 73 m?? [facility] Comment: The eGFR was calculated using the CKD-EPI equation. As with all creatinine based estimates of kidney function, eGFR values calculated with the CKD-EPI equation are not accurate in patients with acute kidney failure, extremes of body mass or the acutely ill. http://HiLo Tickets/[facility]ENEnkf Blood specimen (specimen) 02/09/2020 3:34 AM EDT 02/09/2020 3:42 AM EDT Narrative Resulting Agency Comment Spec In Lab Rell Gutierrez MD CHEMISTRY ORDERABLES Performing Organization Address City/[facility] Co de Phone Number [facility] [place] [address] * POCT Glucose (02/08/2020 8:56 PM EDT) POC Glucose 145 65 - 199 mg/dL [facility] Comment: Supplemental ranges: <140 mg/dL before meals <180 mg/dL all other times of the day Blood specimen (specimen) 02/08/2020 8:56 PM EDT 02/08/2020 8:56 PM EDT Rell Gutierrez MD POINT OF CARE TEST O RDERABLES Performing Organization Address City/[facility] Co de Phone Number [facility] [place] [address] * POCT Glucose (02/08/2020 4:52 PM EDT) POC Glucose 144 65 - 199 mg/dL [facility] Comment: Supplemental ranges: <140 mg/dL before meals <180 mg/dL all other times of the day Blood specimen (specimen) 02/08/2020 4:52 PM EDT 02/08/2020 4:52 PM EDT Rell Gutierrez MD POINT OF CARE TEST O RDERATRAY Performing Organization Address [facility] Co de Phone Number [facility] [place] [address] * (ABNORMAL) POCT Glucose (02/08/2020 12:35 PM EDT) POC Glucose 235(H) 65 - 199 mg/dL [facility] Comment: Supplemental ranges: <140 mg/dL before meals <180 mg/dL all other times of the day Blood specimen (specimen) 02/08/2020 12:35 PM EDT 02/08/2020 12:35 PM EDT Rell Gutierrez MD POINT OF CARE TEST O RDERATRAY Performing Organization Address [facility] Co de Phone Number [facility] [place] [address] * (ABNORMAL) POCT Glucose (02/08/2020 9:38 AM EDT) POC Glucose 296(H) 65 - 199 mg/dL [facility] Comment: Supplemental ranges: <140 mg/dL before meals <180 mg/dL all other times of the day Blood specimen (specimen) 02/08/2020 9:38 AM EDT 02/08/2020 9:38 AM EDT Rell Gutierrez MD POINT OF CARE TEST O RDERABLES Performing Organization Address [facility]/ZIP Co de Phone Number [facility] [place] [address] * (ABNORMAL) POCT Glucose (02/08/2020 7:35 AM EDT) Pathologist [facility] POC Glucose 241(H) 65 - 199 mg/dL [facility] Comment: Supplemental ranges: <140 mg/dL before meals <180 mg/dL all other times of the day Blood specimen (specimen) 02/08/2020 7:35 AM EDT 02/08/2020 7:35 AM EDT Rell Gutierrez MD POINT OF CARE TEST O RDERABLES Performing Organization Address [facility] Co de Phone Number [facility] [place] [address] * Differential, Automated (02/08/2020 4:01 AM EDT) Pathologist [facility] Neutrophils % 68.7 % [facility] Neutr Abs (ANC) 5.45 1.70 - 6.10 x10(3)/[facility] Lymphocytes % 21.1 % [facility] Lymphocytes Abs 1.7 0.9 - 3.2 x10(3)/[facility] Monocytes % 8.6 % [facility] Monocyte Abs 0.7 0.3 - 0.9 x10(3)/[facility] Eosinophils % 0.8 % [facility] Eosinophils Abs 0.1 0.0 - 0.4 x10(3)/[facility] Basophils % 0.4 % [facility] Basophils Abs 0.0 0.0 - 0.1 x10(3)/[facility] Immature Gran % 0.40 % [facility] Comment: Immature granulocytes(IG's)percentage and absolute count will include metamyelocytes, myelocytes, and promyelocytes. Blood smears from CBCs yielding IG's will be scanned manually for concordance. If this scan disagrees with the automated IG or if promyelocytes are noted, a manual differential will be performed. Lorraine Gran Abs 0.03 0.00 - 0.04 x10(3)/[facility] Blood specimen (specimen) 02/08/2020 4:01 AM EDT 02/08/2020 4:06 AM EDT Narrative Resulting Agency Comment Spec In Lab Kayleigh Crook MD HEMATOLOGY ORDERABLE S [facility] [place] [address] * (ABNORMAL) Hemogram (02/08/2020 4:01 AM EDT) WBC 7.9 4.0 - 9.5 x10(3)/[facility] RBC 5.11 4.00 - 5.21 x10(6)/[facility] Hemoglobin 13.5 11.7 - 15.5 gm/dL [facility] Hematocrit 42.6 35.7 - 45.8 % [facility] MCV 83.4 82.6 - 94.4 [facility] MCH 26.4(L) 27.1 - 32.0 pg [facility] MCHC 31.7 31.7 - 35.0 gm/dL [facility] Platelets 189 145 - 357 x10(3)/[facility] RDWSD 43.5 37.0 - 46.0 [facility] RDWCV 14.3(H) 11.5 - 14.1 % [facility] MPV 11.2 7.6 - 12.9 [facility] nRBC % Auto 0.0 % [facility] nRBC Abs Auto 0.000 0.000 - 0.000 x10(3)/[facility] Blood specimen (specimen) 02/08/2020 4:01 AM EDT 02/08/2020 4:06 AM EDT Narrative Resulting Agency Comment Spec In Lab Kayleigh Crook MD HEMATOLOGY ORDERABLE S Performing Organization Address [facility]/ZIP Co de Phone Number [facility] [place] [address] * (ABNORMAL) Phosphorus (02/08/2020 4:01 AM EDT) Phosphorus 1.9(L) 2.5 - 4.5 mg/dL [facility] Blood specimen (specimen) 02/08/2020 4:01 AM EDT 02/08/2020 4:06 AM EDT Narrative Resulting Agency Comment Spec In Lab Rell Gutierrez MD CHEMISTRY ORDERABLES Performing Organization Address [facility] Co de Phone Number [facility] [place] [address] * Magnesium (02/08/2020 4:01 AM EDT) Magnesium 0.91 0.69 - 1.07 mmol/L [facility] Blood specimen (specimen) 02/08/2020 4:01 AM EDT 02/08/2020 4:06 AM EDT Narrative Resulting Agency Comment Spec In Lab Rell Gutierrez MD CHEMISTRY ORDERABLES Performing Organization Address [facility] Co de Phone Number [facility] [place] [address] * (ABNORMAL) Basic Metabolic Panel (non-fasting) (02/08/2020 4:01 AM EDT) Glucose Lvl 247(H) 65 - 199 mg/dL [facility] Comment:Diabetes: >=200 mg/d L plus symptoms BUN 8 8 - 18 mg/dL [facility] Creatinine 0.66(L) 0.70 - 1.20 mg/dL [facility] Sodium 138 135 - 145 mmol/L [facility] Potassium 4.4 3.5 - 5.0 mmol/L [facility] Comment: Please note: ??Patients with WBC >100,000 may have falsely elevated Potassium levels. ??For accurate Potassium quantification in these patients send serum separator tube (gold top) for subsequent determinations. ??Contact the Clinical Chemistry Laboratory if there are any questions. Chloride 102 98 - 107 mmol/L [facility] CO2 27 22 - 31 mmol/L [facility] Anion Gap 9 5 - 15 mmol/L [facility] Calcium 7.9(L) 8.5 - 10.5 mg/dL [facility] Estimated GFR 97 >=60 mL/min/1. 73 m?? [facility] Comment: The eGFR was calculated using the CKD-EPI equation. As with all creatinine based estimates of kidney function, eGFR values calculated with the CKD-EPI equation are not accurate in patients with acute kidney failure, extremes of body mass or the acutely ill. http://[employer] Tickets/[facility]KEENEnkf eGFR 113 >=60 mL/min/1. 73 m?? [facility] Comment: The eGFR was calculated using the CKD-EPI equation. As with all creatinine based estimates of kidney function, eGFR values calculated with the CKD-EPI equation are not accurate in patients with acute kidney failure, extremes of body mass or the acutely ill. http://[employer]/DHnkf Blood specimen (specimen) 02/08/2020 4:01 AM EDT 02/08/2020 4:06 AM EDT Narrative Resulting Agency Comment Spec In Lab Rell Gutierrez MD CHEMISTRY ORDERABLES [facility] [place] [address] * Potassium (02/07/2020 8:55 PM EDT) Potassium 3.7 3.5 - 5.0 mmol/L [facility] Comment: Please note: ??Patients [...] Gutierrez MD CHEMISTRY ORDERABLES Performing Organization Address [facility]/ZIP Co de Phone Number [facility] [place] [address] * POCT Glucose (02/07/2020 8:48 PM EDT) POC Glucose 183 65 - 199 mg/dL [facility] Comment: Supplemental ranges: <140 mg/dL before meals <180 mg/dL all other times of the day Blood specimen (specimen) 02/07/2020 8:48 PM EDT 02/07/2020 8:48 PM EDT Rell Gutierrez MD POINT OF CARE TEST O RDERABLES Performing Organization Address [facility] Co de Phone Number [facility] [place] [address] * Potassium (02/07/2020 5:10 PM EDT) Pathologist [facility] Potassium 4.0 3.5 - 5.0 mmol/L [facility] Comment: Please note: ??Patients [...] Gutierrez MD CHEMISTRY ORDERABLES Performing Organization Address [facility]/ZIP Co de Phone Number [facility] [place] [address] * (ABNORMAL) Troponin (02/07/2020 5:10 PM EDT) Troponin-T 0.27(H) 0.00 - 0.00 ng/mL [facility] Comment: The 99th percentile for Troponin T is less than 0.01 ng/mL, any detectable cTnT concentration using this assay should be considered elevated. According to the third universal definition of myocardial infarction the following criteria with a clinical presentation consistent with acute myocardial ischemia meets the diagnosis for a myocardial infarction (MT). Detection of a rise and/or fall of cTnT, with at least one value greater than the 99th percentile (> or = 0.01) and with at least one of the following ?? Symptoms of ischemia ?? New or presumed new significant DD-lzohxue-R wave (ST-T) changes or new left bundle [...] additional sample may be indicated. Reference: Third [place] Definition of Myocardial Infarction. Journal of the [place] College [employer] 2012;60:1581-98 Blood specimen (specimen) 02/07/2020 5:10 PM EDT 02/07/2020 5:28 PM EDT Narrative Resulting Agency Comment Spec In Lab Vik Justin MD CHEMISTRY ORDER TOBI Performing Organization Address City/State/[facility] Co de Phone Number [facility] [place] [address] * XR Chest One View (02/07/2020 5:07 PM EDT) Anatomical Region Laterality Modality Chest N/A Digital Radiogra phy Impressions 02/08/2020 3:54 AM EDT Similar pattern of mild vascular congestive changes in the setting of intra-aortic pump. Thank you for letting us participate in the care of this patient. For questions regarding this report, please contact the number below. ? Electronically signed by: Trace Lopez MD, [facility] ([phone]), at 02/08/2020 3:54 AM Narrative 02/08/2020 3:54 AM EDT EXAMINATION: XR [...] this report, please contact the number below. Electronically signed by: Trace Lopez MD, [facility]([phone]), at 02/08/2020 3:54 AM Rell Gutierrez MD IMG DX ORDERABLES * POCT Glucose (02/07/2020 4:21 PM EDT) POC Glucose 139 65 - 199 mg/dL [facility] Comment: Supplemental ranges: <140 mg/dL before meals <180 mg/dL all other times of the day Blood specimen (specimen) 02/07/2020 4:21 PM EDT 02/07/2020 4:21 PM EDT Rell Gutierrez MD POINT OF CARE TEST O RDERABLES [facility] [place] [address] * CARDIAC CATHETERIZATION (02/07/2020 3:21 PM EDT) Anatomical Region Laterality Modality Other Narrative 02/07/2020 4:29 PM EDT ?[facility] ? Cardiac Catheterization/Intervention Report ? Patient Name: Jarrett, Danielle ? Procedure Date: 02/07/2020 ? A #: [id number] ? Primary Physician: Jose, Todd Mendoza ? Case #: [id number] ? File Name: [id number] ? Catheterization Order Number: [id number] ? [facility] ? Final Report [place], [place] ? Patient Name: ? Danielle Jarrett ? ID#: ?[id number] ? : ?1960 ? Procedure Date: ? February 07, 2020 ? Case #: ? [id number] ? Room: ? 6 ? Case Physician: ? Todd Garcia M.D. ?Start: ?14:09 ?Fellow: ? David Raelson, M.D. ?Admission: ??02/07/2020 ? Discharge: ??02/09/2020 ? [...] procedure was Urgent. The indication for ?the laboratory equipment cleaner visit is worsening angina. Chest pain symptom [...] dose administered prior to arrival in the laboratory equipment cleaner. ?Recommended anti-platelet/anti-thrombotic regimen: ?Start aspirin 81 mg daily now and continue for indefinitely. ?Start clopidogrel 75 mg daily now and continue for 12 months then stop. ?These recommendations are made at the time of the intervention. Patient ?and provider preferences or a changing clinical situation may require ?modification of this regimen. Consult [facility] Interventional Cardiology for ?questions. ?The 1 year [...] against any medical treatment. Consult ?http://tools.acc.org/DAPTriskapp/#!/content/calculator/ or [facility] ?Interventional Cardiology for questions. ? Conclusions: ?* [...] angiography and vascular closure device. ? Todd Garcia M.D. ? Electronically Signed by: Todd Garcia M.D. ? Report Finalized: 02/07/2020 ??16:24 ? Report Last Ammended: 03/23/2020 ??13:04 ? Procedure Note Todd Garcia MD - 03/23/2020 [facility] Cardiac Catheterization/Intervention Report Patient Name: Danielle Mills Procedure Date: 02/07/2020 A #: [id number] Primary Physician: Todd Garcia Case #: [id number] File Name: [id number] Catheterization Order Number: [id number] [facility] FinalReport [place], [place] Patient Name: Danielle Mills ID#:[id number] :1960 Procedure Date: February 07, 2020 Case [...] was designated as ASA Class III. The [facility] clinical frailty scale is5: Mildly Frail. Diagnostic Tests: Prior Coronary Angiography: LV ejection fraction within 6 months is 30%. Electrocardiography: EKG was assessed by ECG. EKG was Abnormal. EKG showed T-wave inversions and other abnormality. Medications Prior to Procedure: Aspirin, Beta Fernando and Statin. Indications for Diagnostic Cath: The priority of the diagnostic procedure was Urgent. The indicationfor the laboratory equipment cleaner visit is worsening angina. Chest pain symptomassessment [...] The priority for the procedure was Emergent.The [facility] indication for the procedure was NSTE-ACS. LVEF [...] the lesion was dilated using a 3.00mm [id number] MM balloon with a maximum inflation pressure [...] dose administered prior to arrival in the laboratory equipment cleaner. Recommended anti-platelet/anti-thrombotic regimen: Start aspirin 81 mg daily now and continue for indefinitely. Start clopidogrel 75 mg daily now and continue for 12 months thenstop. These recommendations are made at the time of the intervention.Patient and provider preferences or a changing clinical situation mayrequire modification of this regimen. Consult [facility] Interventional Cardiologyfor questions. The 1 year bleeding [...] or against any medical treatment.Consult http://tools.acc.org/DAPTriskapp/#!/content/calculator/ or [facility] Interventional Cardiology for questions. Conclusions: * Obstructive [...] * COVID-19 PCR (02/07/2020 12:30 PM EDT) SARS-CoV-2 RNA PCR Not Detected Not Detected [facility] Comment: This result should be interpreted [...] using the Simplexa COVID-19 Direct Assay by [employer] as authorized by the FDA issued Emergency [...] Department of Pathology and Laboratory Medicine at [facility], certified under the Clinical Laboratory Improvement Amendments [...] Information for Healthcare Professionals (https://www.cdc.gov/coronavirus/2019-ncov/hcp/index.html). SARS-CoV-2 Source PAEDIATRIC PHYSIOTHERAPIST Swab [place] [facility] Nasopharyngeal swab (specimen) 02/07/2020 12:30 PM EDT 02/07/2020 12:59 PM EDT Comment:Symptoms->Surveillan ce Narrative Resulting Agency Comment Spec In Lab Vik Justin MD MICROBIOLOGY - GENERAL ORDERABLES Performing Organization Address City/[facility]/ZIP Co de Phone Number [facility] [place] [address] * POCT Glucose (02/07/2020 10:58 AM EDT) Pathologist [facility] POC Glucose 115 65 - 199 mg/dL [facility] Comment: Supplemental ranges: <140 mg/dL before meals <180 mg/dL all other times of the day Blood specimen (specimen) 02/07/2020 10:58 AM EDT 02/07/2020 10:58 AM EDT Rell Gutierrez MD POINT OF CARE TEST O RDERABLES Performing Organization Address City/[facility]/ZIP Co de Phone Number [facility] [place] [address] * Lavender Tube HOLD (02/07/2020 10:55 AM EDT) Pathologist [facility] Lavender Hold Sample in lab. [facility] Blood specimen (specimen) Venous Draw / Unknown 02/07/2020 10:55 AM EDT 02/07/2020 11:16 AM EDT Kayleigh Crook MD HEMATOLOGY ORDERABLE S Performing Organization Address [facility]/ZIP Co de Phone Number [facility] [place] [address] * Phosphorus (02/07/2020 10:55 AM EDT) Phosphorus 3.0 2.5 - 4.5 mg/dL [facility] Blood specimen (specimen) 02/07/2020 10:55 AM EDT 02/07/2020 11:15 AM EDT Narrative Resulting Agency Comment Spec In Lab Rell Gutierrez MD CHEMISTRY ORDERABLES Performing Organization Address [facility] Co de Phone Number [facility] [place] [address] * Magnesium (02/07/2020 10:55 AM EDT) Magnesium 1.00 0.69 - 1.07 mmol/L [facility] Blood specimen (specimen) 02/07/2020 10:55 AM EDT 02/07/2020 11:15 AM EDT Narrative Resulting Agency Comment Spec In Lab Rell Gutierrez MD CHEMISTRY ORDERABLES Performing Organization Address [facility] Co de Phone Number [facility] [place] [phone] * Heparin (unfractionated) Level (02/07/2020 10:55 AM EDT) Heparin UFH Level 0.44 IU/mL [facility] Comment: Guidelines for therapeutic unfractionated heparin [...] Lab Vik Justin MD HEMATOLOGY EDEN LOPES [facility] [place] [address] * (ABNORMAL) Troponin (02/07/2020 10:55 AM EDT) Troponin-T 0.13(H) 0.00 - 0.00 ng/mL [facility] Comment: The 99th percentile for Troponin T is less than 0.01 ng/mL, any detectable cTnT concentration using this assay should be considered elevated. According to the third universal definition of myocardial infarction the following criteria with a clinical presentation consistent with acute myocardial ischemia meets the diagnosis for a myocardial infarction (MT). Detection of a rise and/or fall of cTnT, with at least one value greater than the 99th percentile (> or = 0.01) and with at least one of the following ?? Symptoms of ischemia ?? New or presumed new significant YS-yufljfe-S wave (ST-T) changes or new left bundle [...] additional sample may be indicated. Reference: Third [place] Definition of Myocardial Infarction. Journal of the [place] College [employer]iology 2012;60:1581-98 Blood specimen (specimen) 02/07/2020 10:55 AM EDT 02/07/2020 11:15 AM EDT Narrative Resulting Agency Comment Spec In Lab Vik Justin MD CHEMISTRY ORDER TOBI [facility] [place] [address] * ECHO COMPLETE W CONTRAST (02/07/2020 10:46 AM EDT) EF 61 HEARTLAB SYSTEM Anatomical Region Laterality Modality Other 02/07/2020 Narrative 02/07/2020 1:49 PM EDT Procedure: ?Transthoracic Echocardiogram Patient: ?JARRETT Mcintosh ?(Age): 1960(59y) Med Rec#: ? [id number] ?Sex: ?F ? Site Loc: ? [facility] ?Ht / Wt: ??165(cm)/118(kg) Pt. Loc: ?CCU ? BSA: ?2.21 Study Date: ?? 02/07/2020 ?Pt. Type: Inpatient Tape: ? Referring: Rell Gutierrez ??([id number]) Referring: LISY Reading: Ruslan Mcfarlane ([id number]) Healthcare Advisory Services Manager: Laura Brown Diagnosis: *Non-ST elevation (NSTEMI) myocardial [...] FS (2D) ?30 ? % ? EF Teichholz (2D) ?? 57.28 ?% ? Ao root [...] Vmax ?0.61 ? m/sec ? MV deceleration [id number] ?msec ? MV A-wave Vmax ?0.77 ? [...] ? Mid-Inferior ?Normal ? Mid-Inferoseptal ?Hypokinetic ? [place]-Septal ? Hypokinetic ? [place]-Anterior ? Akinetic ? [place]-Lateral ?Akinetic ? [place]-Inferior ? Hypokinetic ? [place]-Tip ?Akinetic ? This report has been electronically signed by: Ruslan Mcfarlane MD ? 02/07/2020 13:49:14 Images reviewed and interpretation verified [facility] Cardiac Ultrasound Laboratory Procedure Note Ruslan Mcfarlane MD - 02/07/2020 Procedure: Transthoracic Echocardiogram Patient: JARRETT BUSTILLO(Age): 1960(59y) Med Rec#: [id number] Sex: F Site Loc: [facility] Ht / Wt: 165(cm)/118(kg) Pt. Loc: CCU BSA: 2.21 Study Date: 02/07/2020 Pt. Type: Inpatient Tape: Referring: Rell Gutierrez ([id number]) Referring: LISY Reading: Ruslan Mcfarlane ([id number]) Healthcare Advisory Services Manager: Laura Brown Diagnosis: *Non-ST elevation (NSTEMI) myocardial [...] MV E-wave Vmax 0.61 m/sec MV deceleration [id number] msec MV A-wave Vmax 0.77 m/sec MV [...] Normal Mid-Posterolateral Normal Mid-Inferior Normal Mid-Inferoseptal Hypokinetic [place]-Septal Hypokinetic [place]-Anterior Akinetic [place]-Lateral Akinetic [place]-Inferior Hypokinetic [place]-Tip Akinetic This report has been electronically signed by: Ruslan Mcfarlane MD 02/07/2020 13:49:14 Images reviewed and interpretation verified [facility] Cardiac Ultrasound Laboratory Rell Gutierrez MD ECHO [...] report, please contact the number below. ? Electronically signed by: Varghese Richmond MD, [facility] ([phone]), at 02/07/2020 9:53 AM Narrative 02/07/2020 9:53 AM EDT EXAMINATION: XR [...] this report, please contact the number below. Electronically signed by: Varghese Richmond MD, [facility]([phone]), at 02/07/2020 9:53 AM Vik Justin MD IMG DX ORDERABL ES * CARDIAC CATHETERIZATION (02/07/2020 9:00 AM EDT) Anatomical Region Laterality Modality Other Narrative 02/07/2020 9:04 AM EDT ?[facility] ? Cardiac Catheterization/Intervention Report ? Patient Name: Jarrett, Danielle ? Procedure Date: 02/07/2020 ? A #: [id number] ? Primary Physician: oJse, Todd T ? Case #: [id number] ? File Name: [id number] ? Catheterization Order Number: [id number] ? [facility] ? Final Report [place], [place] ? Patient Name: ? Danielle Jarrett ? ID#: ?[id number] ? : ?1960 ? Procedure Date: ? February 07, 2020 ? Case #: ? [id number] ? Room: ? 2 ? Case Physician: ? Todd Garcia M.D. ?Start: ?08:14 ?Fellow: ? David Vigil M.D. [...] was designated as ASA Class IV. ?The CSHA clinical frailty scale is 5: Mildly Frail. ? Diagnostic Tests: ?Prior Coronary Angiography: ? LV ejection fraction within 6 months is 30%. ?Electrocardiography: ? EKG was assessed by ECG. EKG was Abnormal. EKG showed T-wave ? inversions. ?Medications Prior to Procedure: ? Aspirin and Statin. ? Indications for Diagnostic Cath: ?The priority of the diagnostic procedure was Urgent. The indication for ?the laboratory equipment cleaner visit is ACS less than or equal [...] 8Fr IABP was inserted via the right SAFEKEEPING CLERK using ultrasound guidance. ?The IABP was advanced via the right SAFEKEEPING CLERK into the distal aortic arch over ?a wire. ??After confirming position, the IABP was sutured in place and ?connected to the console. ??The counterpulsation was initiated and the ?patient was noted to become chest pain free. ?Successful inseriton of a 50cc IABP via an 8fr sheat in the right SAFEKEEPING CLERK. ?The attending physician was present for the entire procedure. ?Dr. Todd Garcia M.D. was present during the moderate sedation ?intraservice time as documented by the sedation nurse. ??Case time = 00:34. ?Dr. Todd Garcia M.D. performed the coronary angiography, left heart ?catheterization and IABP insertion in laboratory equipment cleaner. ? Todd Garcia M.D. ? Electronically Signed by: Todd Garcia M.D. ? Report Finalized: 02/07/2020 ??08:57 ? Report Last Ammended: 03/23/2020 ??13:05 ? Procedure Note Todd Garcia MD - 03/23/2020 [facility] Cardiac Catheterization/Intervention Report Patient Name: Danielle Mills Procedure Date: 02/07/2020 A #: [id number] Primary Physician: Todd Garcia Case #: [id number] File Name: [id number] Catheterization Order Number: [id number] [facility] FinalReport [place], [place] Patient Name: Danielle Mills ID#:[id number] :1960 Procedure Date: February 07, 2020 Case [...] patient was designated as ASAClass IV. The [facility] clinical frailty scale is 5: Mildly Frail. Diagnostic Tests: Prior Coronary Angiography: LV ejection fraction within 6 months is 30%. Electrocardiography: EKG was assessed by ECG. EKG was Abnormal. EKG showed T-wave inversions. Medications Prior to Procedure: Aspirin and Statin. Indications for Diagnostic Cath: The priority of the diagnostic procedure was Urgent. The indicationfor the laboratory equipment cleaner visit is ACS less than or equal [...] 8Fr IABP was inserted via the right SAFEKEEPING CLERK using ultrasoundguidance. The IABP was advanced via the right SAFEKEEPING CLERK into the distal aortic archover a wire. [...] angiography, leftheart catheterization and IABP insertion in laboratory equipment cleaner. Todd Garcia M.D. Electronically Signed by: Todd Garcia M.D. Report Finalized: 02/07/2020 08:57 Report Last Ammended: 03/23/2020 13:05 Todd Garcia MD CARDIAC CATH ORDERAB LES * POCT Glucose (02/07/2020 7:32 AM EDT) POC Glucose 147 65 - 199 mg/dL [facility] Comment: Supplemental ranges: <140 mg/dL before meals <180 mg/dL all other times of the day Blood specimen (specimen) 02/07/2020 7:32 AM EDT 02/07/2020 7:32 AM EDT Rell Gutierrez MD POINT OF CARE TEST O RDERABLES [facility] [place] [address] * (ABNORMAL) Hemoglobin A1c (02/07/2020 7:29 AM EDT) Hemoglobin A1C 6.8(H) 4.3 - 5.6 % [facility] Comment: Reference Range: 4.3 [...] Mellitus, Diabetes Care 2013; 36: Suppl. 1, S67-77 Est Avg Gluc 147 mg/dL [facility] Comment: eAG equivalents for HbA1c percentages: HbA1c(%) ?eAG(mg/dL) 6.0 ?126 6.5 ?140 7.0 ?154 7.5 ?169 8.0 ?183 8.5 ?197 9.0 ?212 9.5 ?226 10.0 ? 240 Limitations: The eAG calculation has not been validated on women, individuals below 18 years old and above 70 years old, and individuals with hemoglobinopathies. Additional resources are available on the ADA website. Ernesto RACOS, Orlando J, Kimberly R, et al. ??Translating the A1C assay into estimated average glucose values. ??Diabetes Care 2008:31(8):4665-2602. Blood specimen (specimen) Venous Draw / Unknown 02/07/2020 7:29 AM EDT 02/07/2020 8:47 AM EDT Narrative Resulting Agency Comment Spec In Lab Keyon Foley MD CHEMISTRY ORDERABLES Performing Organization Address [facility] Co de Phone Number [facility] [place] [address] * Sedimentation rate (02/07/2020 7:29 AM EDT) [facility] Sed Rate 25 2 - 39 mm/hr [facility] Comment: Effective April 21, 2019 new [...] MD HEMATOLOGY ORDERABLE S Performing Organization Address [facility] Co de Phone Number [facility] [place] [address] * (ABNORMAL) Hepatic Function Panel (02/07/2020 7:29 AM EDT) [facility] Total Protein 6.0(L) 6.1 - 8.0 gm/dL [facility] Albumin 3.8 3.2 - 5.2 gm/dL [facility] AST 35(H) 0 - 30 unit/L [facility] ALT 36(H) 0 - 30 unit/L [facility] Alk Phos 72 35 - 105 unit/L [facility] Total Bilirubin 0.4 0.2 - 1.3 mg/dL [facility] Bili, Direct 0.1 0.0 - 0.3 mg/dL [facility] Blood specimen (specimen) Venous Draw / Unknown 02/07/2020 7:29 AM EDT 02/07/2020 7:45 AM EDT Narrative Resulting Agency Comment Spec In Lab Rell Gutierrez MD CHEMISTRY ORDERABLES Performing Organization Address City/[facility]/ZIP Co de Phone Number [facility] [place] [address] * Lipase (02/07/2020 7:29 AM EDT) [facility] Lipase 28 0 - 60 unit/L [facility] Blood specimen (specimen) Venous Draw / Unknown 02/07/2020 7:29 AM EDT 02/07/2020 7:45 AM EDT Narrative Resulting Agency Comment Spec In Lab Rell Gutierrez MD CHEMISTRY ORDERABLES Performing Organization Address [facility] Co de Phone Number [facility] [place] [address] * (ABNORMAL) CRP, acute inflammation (02/07/2020 7:29 AM EDT) [facility] CRP 18.2(H) <=4.9 mg/L [facility] Blood specimen (specimen) Venous Draw / Unknown 02/07/2020 7:29 AM EDT 02/07/2020 7:45 AM EDT Narrative Resulting Agency Comment Spec In Lab Rell Gutierrez MD CHEMISTRY ORDERABLES Performing Organization Address City/[facility]/ZIP Co de Phone Number [facility] [place] [address] * Differential, Automated (02/07/2020 7:29 AM EDT) [facility] Neutrophils % 64.8 % [facility] Neutr Abs (ANC) 5.08 1.70 - 6.10 x10(3)/[facility] Lymphocytes % 27.1 % [facility] Lymphocytes Abs 2.1 0.9 - 3.2 x10(3)/[facility] Monocytes % 6.8 % [facility] Monocyte Abs 0.5 0.3 - 0.9 x10(3)/[facility] Eosinophils % 0.5 % [facility] Eosinophils Abs 0.0 0.0 - 0.4 x10(3)/[facility] Basophils % 0.5 % [facility] Basophils Abs 0.0 0.0 - 0.1 x10(3)/[facility] Immature Gran % 0.30 % [facility] Comment: Immature granulocytes(IG's)percentage and absolute count will include metamyelocytes, myelocytes, and promyelocytes. Blood smears from CBCs yielding IG's will be scanned manually for concordance. If this scan disagrees with the automated IG or if promyelocytes are noted, a manual differential will be performed. Lorraine Gran Abs 0.02 0.00 - 0.04 x10(3[place] [place] (specimen) 02/07/2020 7:29 AM EDT 02/07/2020 7:45 AM EDT Narrative Resulting Agency Comment Spec In Lab Vik Justin MD HEMATOLOGY EDEN LOPES [facility] [place] [address] * (ABNORMAL) Hemogram (02/07/2020 7:29 AM EDT) WBC 7.8 4.0 - 9.5 x10(3)/[facility] RBC 5.33(H) 4.00 - 5.21 x10(6)/[facility] Hemoglobin 13.7 11.7 - 15.5 gm/dL [facility] Hematocrit 45.2 35.7 - 45.8 % [facility] MCV 84.8 82.6 - 94.4 fL [facility] MCH 25.7(L) 27.1 - 32.0 pg [facility] MCHC 30.3(L) 31.7 - 35.0 gm/dL [facility] Platelets 173 145 - 357 x10(3)/[facility] RDWSD 43.9 37.0 - 46.0 [facility] RDWCV 14.2(H) 11.5 - 14.1 % [facility] MPV 11.0 7.6 - 12.9 [facility] nRBC % Auto 0.0 % [facility] nRBC Abs Auto 0.000 0.000 - 0.000 x10(3)/[facility] Blood specimen (specimen) 02/07/2020 7:29 AM EDT 02/07/2020 7:45 AM EDT Narrative Resulting Agency Comment Spec In Lab Vik Justin MD HEMATOLOGY EDEN LOPES Performing Organization Address [facility] Co de Phone Number [facility] [place] [address] * Prothrombin Time (02/07/2020 7:29 AM EDT) PT 11.8 9.4 - 12.5 sec [facility] INR 1.0 [facility] Comment: An INR <2.0 indicates [...] MD HEMATOLOGY EDEN LOPES Performing Organization Address [facility]/ZIP Co de Phone Number [facility] [place] [address] * (ABNORMAL) pro-Brain Natriuretic Peptide (02/07/2020 7:29 AM EDT) ProBNP 893(H) <=125 pg/mL [facility] Blood specimen (specimen) 02/07/2020 7:29 AM EDT 02/07/2020 7:45 AM EDT Narrative Resulting Agency Comment Spec In Lab Vik Justin MD CHEMISTRY ORDER TOBI [facility] [place] [address] * Lipid Panel (Reflex Direct LDL) (02/07/2020 7:29 AM EDT) Chol, Total 186 mg/dL [facility] Comment: Lower Risk: <200 mg/dL Average Risk: 200-239 mg/dL Higher Risk: >ti=935 mg/dL Triglycerides 161 mg/dL [facility] Comment: Average Risk/Lower Risk: <150 mg/dL Borderline High Risk: 150-199 mg/dL High Risk: 200-499 mg/dL Very High Risk: >ha=010 mg/dL HDL 34 mg/dL [facility] Comment: Males: ?? Higher Risk: <40 mg/dL Females: ?? HIgher Risk: <50 mg/dL LDL Cholesterol 120 mg/dL [facility] Comment: Lowest Risk: <100 mg/dL Lower Risk: 100-129 mg/dL Borderline High Risk: 130-159 mg/dL High Risk: 160-189 mg/dL Very High Risk: >gr=689 mg/dL Chol/HDL Ratio 5.5 ratio [facility] Lipid Interpretation See Note [facility] Comment: Lipid management should be guided by a patient? s ASCVD risk, goals and preferences. ACC/AHA Guidelines recommend high intensity statin if clinical ASCVD or LDL greater than or equal to 190 mg/dL. http://Maizhuourl.com/ABN-RKP-Hkvgrcdpx Adults aged 40-75 with LDL 70-189 mg/dL should have their 10 year ASCVD risk estimated with the ACC/AHA ASCVD risk distribution estimator http://tools.acc.org/KNYBG-Bcyt-Jwcrumvuh/ Statin should be discussed if risk greater [...] MD CHEMISTRY ORDER TOBI Performing Organization Address City/[facility]/ZIP Co de Phone Number [facility] [place] [address] * TSH (02/07/2020 7:29 AM EDT) TSH 1.30 0.27 - 4.20 mcIU/mL [facility] Blood specimen (specimen) 02/07/2020 7:29 AM EDT 02/07/2020 7:45 AM EDT Narrative Resulting Agency Comment Spec In Lab Vik Justin MD CHEMISTRY ORDER TOBI Performing Organization Address [facility] Co de Phone Number [facility] [place] [address] * (ABNORMAL) Troponin (02/07/2020 7:29 AM EDT) Troponin-T 0.10(H) 0.00 - 0.00 ng/mL [facility] Comment: Called by: graciela, Read back by: edita yates (aerodynamicist), Date/Time:_02/07/20 08:14. The 99th percentile for Troponin T is less than 0.01 ng/mL, any detectable cTnT concentration using this assay should be considered elevated. According to the third universal definition of myocardial infarction the following criteria with a clinical presentation consistent with acute myocardial ischemia meets the diagnosis for a myocardial infarction (MT). Detection of a rise and/or fall of cTnT, with at least one value greater than the 99th percentile (> or = 0.01) and with at least one of the following ?? Symptoms of ischemia ?? New or presumed new significant UI-glzsbrp-O wave (ST-T) changes or new left bundle [...] additional sample may be indicated. Reference: Third [place] Definition of Myocardial Infarction. Journal of the [place] [employer] 2012;60:1581-98 Blood specimen (specimen) 02/07/2020 7:29 AM EDT 02/07/2020 7:45 AM EDT Narrative Resulting Agency Comment Spec In Lab Vik Justin MD CHEMISTRY ORDER TOBI [facility] [place] [address] * (ABNORMAL) BMP w/fasting Glucose (02/07/2020 7:29 AM EDT) Glucose Fasting 155(H) 65 - 99 mg/dL [facility] Comment: ?Fasting* Glucose Interpretive Criteria Normal [...] of Diabetes Mellitus, Position Statement from the [place] [employer]. ??Diabetes Care, Volume 33, Supplement 1, May 2009 BUN 7(L) 8 - 18 mg/dL [facility] Creatinine 0.69(L) 0.70 - 1.20 mg/dL [facility] Sodium 139 135 - 145 mmol/L [facility] Potassium 4.1 3.5 - 5.0 mmol/L [facility] Comment: Please note: ??Patients with WBC >100,000 may have falsely elevated Potassium levels. ??For accurate Potassium quantification in these patients send serum separator tube (gold top) for subsequent determinations. ??Contact the Clinical Chemistry Laboratory if there are any questions. Chloride 105 98 - 107 mmol/L [facility] CO2 21(L) 22 - 31 mmol/L [facility] Anion Gap 13 5 - 15 mmol/L [facility] Calcium 8.1(L) 8.5 - 10.5 mg/dL [facility] Estimated GFR 96 >=60 mL/min/1. 73 m?? [facility] Comment: The eGFR was calculated using the CKD-EPI equation. As with all creatinine based estimates of kidney function, eGFR values calculated with the CKD-EPI equation are not accurate in patients with acute kidney failure, extremes of body mass or the acutely ill. [email or web address]KEENEnkf eGFR 111 >=60 mL/min/1. 73 m?? [facility] Comment: The eGFR was calculated using the CKD-EPI equation. As with all creatinine based estimates of kidney function, eGFR values calculated with the CKD-EPI equation are not accurate in patients with acute kidney failure, extremes of body mass or the acutely ill. [email or web address]/[facility]EN[facility] Blood specimen (specimen) 02/07/2020 7:29 AM EDT 02/07/2020 7:45 AM EDT Narrative Resulting Agency Comment Spec In Lab Vik Justin MD CHEMISTRY ORDER TOBI [facility] [place] [address] * EKG 12 Lead (02/07/2020 6:33 AM EDT) Ventricular rate 80 BPM MUSE SYSTEM Atrial Rate 80 BPM MUSE SYSTEM P-R Interval 150 ms MUSE SYSTEM QRS Duration 82 ms MUSE SYSTEM Q-T Interval 426 ms MUSE SYSTEM QTC Calculated (Bezet) 491 ms MUSE SYSTEM Calculated P Rhodes 54 degrees MUSE SYSTEM Calculated R Rhodes 6 degrees MUSE SYSTEM Calculated T Rhodes 103 degrees MUSE SYSTEM INTERPRETATION Normal sinus rhythm Anterior infarct , age undetermined Possible Left atrial enlargement T wave abnormality, consider lateral ischemia Abnormal ECG No previous ECGs available I personally reviewed the tracing and edited the fellows interpretation Confirmed by fellow Fabian Waters ([id number]) on 02/07/2020 2:39:52 PM Confirmed by MD MUSA DAVID ([id number]) on 02/08/2020 5:36:22 PM MUSE SYSTEM 02/07/2020 6:33 AM EDT 02/08/2020 5:36 PM EDT Vik Justin MD ECG ORDERABLES MUSE SYSTEM documented in this encounter Visit Diagnoses Not on filedocumented in this encounter Admitting Diagnoses Diagnosis NSTEMI [...] 02/07/2020 10:49 AM EDT 1,000 mg aspirin chewable tablet 81 mg 81 mg, [...] 02/08/2020 9:00 PM EDT 40 mg fentaNYL 50 mcg/mL multi-dose injection ONCE PRN, Starting on Fri02/07/20 at 0805, Until Fri02/07/20 at 0921, Cath (Intra-Procedure), Routine Given 02/07/2020 8:29 AM EDT 25 mcg Given 02/07/2020 8:25 AM EDT 25 mcg Given 02/07/2020 8:05 AM EDT 50 mcg glucagon (human recombinant) injection SolR 1 mg [...] weight of tube = 37.5 grams., Routine heparin (porcine) 1,000 unit/mL injection ONCE PRN, Starting on Fri02/07/20 at 0823, Until Fri02/07/20 at 0921, Cath (Intra-Procedure), Routine Given 02/07/2020 8:23 AM EDT 7,000 Units insulin lispro (HumaLOG) VIAL injection 0-8 Units [...] 1 Units insulin lispro (HumaLOG) VIAL injection 2-12 [...] Given 02/08/2020 6:13 PM EDT 2 Units iohexoL (Omnipaque) 350 mg/mL solution ONCE PRN, Starting on Fri02/07/20 at 0847, Until Fri02/07/20 at 1527, Cath (Intra-Procedure), Routine Given 02/07/2020 8:47 AM EDT 100 mLs liothyronine (Cytomel) tablet 5 mcg 5 mcg, [...] Given 02/08/2020 11:34 AM EDT 12.5 mg metoprolol succinate XL (Toprol-XL) tablet 50 mg 50 mg, Oral, DAILY, First dose (after last modification) on Fri02/10/20 at 0900, Until Discontinued, DO NOT CRUSH OR OPEN, Routine metoprolol tartrate (Lopressor) tablet 25 mg 25 mg, Oral, EVERY 12 HOURS SCHEDULED, First dose on Fri02/09/20 at 1215, Until Discontinued, Routine Given 02/09/2020 12:03 PM EDT 25 mg midazolam (PF) (VERSED) multi-dose injection ONCE PRN, Starting on Fri02/07/20 at 0805, Until Fri02/07/20 at 0921, Cath (Intra-Procedure), Routine Given 02/07/2020 8:29 AM EDT 1 mg Given 02/07/2020 8:05 AM EDT 1 mg nicotine polacrilex (NICORETTE) gum 2 mg 2 mg, Buccal, EVERY 2 HOURS PRN, Starting on Fri02/08/20 at 0157, Until Fri02/09/20 at 1430, Smoking cessation, Chew gum slowly. Do not swallow. Maximum of 48 mg/day., Routine Given 02/08/2020 9:00 PM EDT 2 mg nitroGLYcerin 100 mcg/mL intracoronary dilution ONCE PRN, Starting on Fri02/07/20 at 0814, Until Fri02/07/20 at 0921, Cath (Intra-Procedure), Routine Given 02/07/2020 8:14 AM EDT 150 mcg nitroGLYcerin 50 mg in dextrose 5% 250 mL infusion CONTINUOUS PRN, Starting on Fri02/07/20 at 0835, Until Fri02/07/20 at 0921, Cath (Intra-Procedure), Routine New Bag 02/07/2020 8:35 AM EDT 40 mcg/min 12 m L/hr pantoprazole EC (Protonix) tablet 40 mg 40 [...] Given 02/07/2020 10:06 PM EDT 40 mEq sodium chloride 0.9 % (flush) flush 5 mL 5 mL, Intravenous, 2 TIMES DAILY, First dose on Fri02/07/20 at 1015, Until Discontinued, Routine Given 02/09/2020 8:20 AM EDT 5 mLs Given 02/08/2020 9:00 PM EDT 5 mLs Given 02/08/2020 8:07 AM EDT 5 mLs sodium chloride 0.9% infusion CONTINUOUS PRN, Starting on Fri02/07/20 at 0847, Until Fri02/07/20 at 1527, Cath (Intra-Procedure) New Bag 02/07/2020 8:47 AM EDT 300 mLs verapamiL (Isoptin) injection ONCE PRN, Starting on Fri02/07/20 at 0814, Until Fri02/07/20 at 0921, Administer over 2 Minutes, Cath (Intra-Procedure) Given 02/07/2020 8:14 AM EDT 2.5 mg documented in this encounter Active and Recently Administered Medications Times are shown in EDT. Scheduled Medication Order 02/07/2020 02/08/2020 02/09/2020 aspirin chewable tablet 81 mg 81 mg, Oral, DAILY, First dose on Fri02/07/20 at 0900, Until Discontinued, Routine 0745 (Given - Provider: Laura Sommer RN)0755 (JUL Hold - Provider: Admin Adt - Reason: Transfer to a Procedural area)0900 ([facility] Held - Provider: Admin Adt)0906 ([facility] Unhold - Provider: Admin Adt)1401 ([facility] Hold - Provider: Admin Adt - Reason: Transfer to a Procedural area)1549 ([facility] Unhold - Provider: Admin Adt) 0806 (Given [...] - Reason: Transfer to a Procedural area)1549 ([facility] Unhold - Provider: Admin Adt) 0806 (Given [...] Routine 1256 (Given - Provider: Maribel Babcock, RN)1814 (Given - Provider: Maribel Babcock, RN) 0848 [...] Procedural area)1549 (JUL Unhold - Provider: Admin Adt)1630 (Not Given [...] hours, Routine 1255 (Given - Provider: Maribel Babcock RN)1813 (Given - Provider: Maribel Babcock, SHAR)2059 (Given [...] Adt)0906 (JUL Unhold - Provider: Admin Adt)1401 ([facility] Hold - Provider: Admin Adt - Reason: Transfer to a Procedural area)1549 (JUL Unhold - Provider: Admin Adt)2036 (Given - Provider: Lissa Sabillon RN) 0806 (Given - Provider: Maribel Babcock RN) metoprolol tartrate (Lopressor) tablet 12.5 mg (CANCELED) [...] Sabillon RN) 0807 (Given - Provider: Maribel L Sadiq, RN)2100 (Given - Provider: Gamaliel Shelton, SHAR) 0820 (Given - Provider: Ann Shea V [...] Navarro RN)1200 (Rate/Dose Verify - Provider: Alyce Navarro RN)1401 ([facility] Hold - Provider: Admin Adt - Reason: [...] 1049 (Given - Provider: Alyce Navarro RN)1401 ([facility] Hold - Provider: Admin Adt - Reason: Transfer to a Procedural area)1549 (MAR Unhold - Provider: Admin Adt) 0109 (Given - Provider: Lissa Sabillon RN) clonazePAM (KlonoPIN) tablet 0.5 mg 0.5 mg, Oral, 2 TIMES DAILY PRN, Starting on Fri02/07/20 at 0921, Until Fri02/09/20 at 1430, Anxiety, DO NOT SPLIT, CRUSH OR OPEN, Routine 1401 ([facility] Hold - Provider: Admin Adt - Reason: Transfer to a Procedural area)1549 ([facility] Unhold - Provider: Admin Adt) cyclobenzaprine (Flexeril) tablet 10 mg 10 mg, Oral, 3 TIMES DAILY PRN, Starting on Fri02/07/20 at 0921, Until Fri02/09/20 at 1430, Muscle spasms, Routine 1401 ([facility] Hold - Provider: Admin Adt - Reason: Transfer to a Procedural area)1549 ([facility] Unhold - Provider: Admin Adt) dextrose 10% [...] the duration of the active insulin. 0755 ([facility] Hold - Provider: Admin Adt - Reason: Transfer to a Procedural area)0906 ([facility] Unhold - Provider: Admin Adt)1401 ([facility] Hold - Provider: Admin Adt - Reason: Transfer to a Procedural area)1549 ([facility] Unhold - Provider: Admin Adt) fentaNYL (PF) 50 mcg/mL injection (CANCELED) 25 mcg, Intravenous, Administer over 4 Hours, EVERY 30 MIN PRN, 4 doses, Starting on Fri02/07/20 at 0924, Until Fri02/07/20 at 1552, Pain, sheath removal, May repeat once while in Cath Recovery Unit, Cath (Recovery-Hospital Unit), Routine 1508 (Given - Provider: Ekaterina Romo, SHAR) fentaNYL (PF) 50 mcg/mL injection (COMPLETED) 50 mcg, Intravenous, ONCE PRN, 1 dose, Starting on Fri02/07/20 at 1716, Until Fri02/07/20 at 1826, Pain, Pain with IABP pull, If medication ordered subcutaneously, do not administer more than 2 mL as a single injection., Routine 1826 (Given - Provider: Alyce Navarro RN) fentaNYL 50 mcg/mL multi-dose injection (CANCELED) ONCE PRN, Starting on Fri02/07/20 at 0805, Until Fri02/07/20 at 0921, Cath (Intra-Procedure), Routine 0805 (Given - Provider: Maxime Trujillo RN)0825 (Given - Provider: Maxime Trujillo RN)0829 (Given [...] duration of the active insulin., Routine 0755 ([facility] Hold - Provider: Admin Adt - Reason: Transfer to a Procedural area)0906 ([facility] Unhold - Provider: Admin Adt)140 ([facility] Hold - Provider: Admin Adt - Reason: Transfer to a Procedural area)1549 ([facility] Unhold - Provider: Admin Adt) glucose (GLUTOSE) [...] of tube = 37.5 grams., Routine 0755 ([facility] Hold - Provider: Admin Adt - Reason: Transfer to a Procedural area)0906 ([facility] Unhold - Provider: Admin Adt)140 ([facility] Hold - Provider: Admin Adt - Reason: Transfer to a Procedural area)1549 ([facility] Unhold - Provider: Admin Adt) heparin (porcine) [...] Until Fri02/07/20 at 0921, Cath (Intra-Procedure), Routine 08 (Given - Provider: Maxime Trujillo RN)0829 (Given [...] Romo RN)1700 (Rate/Dose Change - Provider: Alyce Navarro, SHAR)1728 (Rate/Dose Change - Provider: Alyce Navarro RN) [...] Routine documented in this encounter Care Teams Information Manager Relationship Specialty Start Date End Date Francy Lowe, [employer] PCP - General Family Medicine 10/19/19 02/11/21 documented as of this encounter
--- OUTSIDE RECORDS SUMMARY | 2023-11-25 15:34 | XMS_ITS | Encounter Summary ---
Author Organization [facility] [place] [address] Care Team Providers Care Environmental Field Professional Name Role Phone Francy Lowe APRN Primary Care Provider + Reason for Visit * Auth/Cert Specialty Diagnoses / Procedures Referred By Jasson mendoza Referred To Contact Diagnoses NSTEMI (non-ST elevated myocardial infarction) nstemi Referral ID Status Reason Start Date Expiration Date Visits Re quested Visits Authorized [id number] 1 1 Encounter Details Date Type Department Care Team (Late st Contact Info) Description 02/07/2020 2:03 PM EDT - 02/07/2020 3:03 PM EDT Surgery Social [place] [id number] Todd Garcia MD [facility] [place] [address] CARDIAC CATHETERIZATION Social History Tobacco Use Types [...] Sign Reading Time Taken Comments Blood Pressure 127/62 02/07/2020 2:50 PM EDT Pulse 78 02/07/2020 2:50 PM EDT Temperature 36.4 ??C (97.5 ??F) 02/07/2020 1 0:00 AM EDT Respiratory Rate 14 02/07/2020 2:50 PM EDT Oxygen Saturation 100% 02/07/2020 2:50 PM EDT Inhaled Oxygen Concentration - - Weight 117.5 kg (259 lb 0.7 oz) 02/07/2020 6:18 AM EDT Height 165.1 cm (5' 5) 02/07/2020 6:18 AM EDT Body Mass Index 42.63 02/07/2020 6:18 AM EDT documented in this encounter Discharge Summaries * Maria Bolaños MD - 02/09/2020 12:14 PM EDT Discharge Summary Patient Name: Danielle Mills Patient Age: 59 y.o. Language: Israeli Race: White Ethnicity: Not nor Admit date: [...] cough, leg swelling. No palpitations. ?? At [facility] starting 9 pm, VSS stable 113/73 HR 85 bpm, RR 19 Questionable CLEMENTINA in V1-V2. Troponin 0.24, lipase 117 CT abdomen/plevis reportedly unremarkable. Pt is s/p CCY She received 4mg IV morphine , Zofran She was started on Heparin and NTG drip. Received ASA 324mg @ 1:32 am at [facility] Plavix 300mg @ 1:55am and then 300mg @2:21am. Consulted with Cards fellow at [facility] and decided to transfer. Hospital Course: #NSTEMI s/p PCI with JEANETH to LAD, LPA and LPL1 Admitted to the cardiology service. The patient was taken to the laborer/grade check and noted to have 3 vessel disease. [...] Recent Labs 02/09/20 0334 02/08/20 0401 02/07/20 2055 02/07/20 0729 NA 138 138 -- -- 139 [...] appointments: During 8am-5pm Friday through Friday call [phone] to speak with a nurse in the cardiology clinic All other times call [phone] and ask to speak to the regulatory and compliance technician acid conditioning worker. Follow up Appointments: ?? Francy Lowe PCP on Friday02/21/20 @ 2:30pm Dr. Carlos Jenkins ([facility] Cardiology) on 03/02/20 @ 2:45pm Future Appointments Date Time Provider Department Center 03/07/2020 10:00 AM Marta Rivera MD [facility] ENDO [facility] PCP: Francy Lowe APRN at [phone] Your Inpatient Doctor(s) at [facility]: Rell Gutierrez MD - Attending physician Your Primary Care Provider: Francy Lowe APRN [address] / [place] [address] For questions regarding issues relating to your hospitalization on the Hospital Medicine Service, please contact your inpatient physician through the [facility] Dull Coat Mill Operator [phone]. Issues after hours and on weekends will be handled by the Hospitalist staff on-call. General Instructions None Future Appointments and Orders Future Appointments and Orders Future Appointments Provider Department Dept Phone 03/07/2020 10:00 AM Marta Rivera MD Endocrinology at [facility] Arrive at: Home [phone] Please do not come in for this visit. Your provider will call you at the number you provided. Future Orders Complete By Expires Referral to Cardiac Rehab [[id number] Custom] As directed Process Instructions: If no progress note charted, please enter Clinical details in comments. Scheduling Instructions: Questions: My question or request is: NSTEMI, PCI- CR at [facility] Discharge References/Attachments None documented in this encounter [...] appointments: During 8am-5pm Friday through Friday call [phone] to speak with a nurse in the cardiology clinic All other times call [phone] and ask to speak to the regulatory and compliance technician acid conditioning worker. Follow up Appointments: ?? Francy Lowe, PCP on Friday02/21/20 @ 2:30pm Dr. Carlos Jenkins ([facility] Cardiology) on 03/02/20 @ 2:45pm Future Appointments Date Time Provider Department Center 03/07/2020 10:00 AM Marta Rivera MD [facility] END[facility] PCP: Francy Lowe APRN at [phone] Your Inpatient Doctor(s) at [facility]: Rell Gutierrez MD - Attending physician Your Primary Care Provider: Francy Lowe APRN [address] / [place] [address] For questions regarding issues relating to your hospitalization on the Hospital Medicine Service, please contact your inpatient physician through the [facility] Dull Coat Mill Operator [phone]. Issues after hours and on weekends will [...] that she works with on this at [facility]. Also states that she is on a financial program at [facility]. CM encouraged patient to call the financial assistance number provided on the brochure for screening and to discuss the bill from this hospitalization to determine what could potentially be used towards her Medicaid spend down as well. Patient verbalized understanding and denies any further questions or concerns at this time. CM updated NEURO PSYCH SALES SPECIALIST and completed consult that was placed for social work re: financial concerns. Clarisa Rees RN, MSN Exploration Manager - Cardiology Office of Care Management Pager: [phone] Work * Rell Gutierrez MD - 02/09/2020 [...] 189 173 Recent Labs 02/09/20 0334 02/08/20 04002/07/20 20502/07/20 0729 NA 138 138 -- -- [...] below. Electronically signed by: Trace Lopez MD, [facility] ([phone]), at 02/08/2020 3:54 AM Cardiac Catheterization Final Result XR Chest One View Final Result Findings suggestive of mild volume overload without kuldeep pulmonary edema. Thank you for letting us participate in the care of this patient. For questions regarding this report, please contact the number below. Electronically signed by: Varghese Richmond MD, [facility] ([phone]), at 02/07/2020 9:53 AM Cardiac Catheterization Final [...] home Maria Bolaños MD PGY1 Cardiology S2 #0366 CARDIOLOGY ATTENDING NOTE Patient: Danielle Mills Date [...] anterior ST-T wave changes. Went urgently to laborer/grade check due to ongoing pain on 02/06 - 3VD including [employer] RCA; IABP placed due to ongoing pain. [...] Dr. Bolaños. Rell Gutierrez MD, MPH, RPVI, [facility] Pager [phone] Cardiovascular Yard AssistantUniversity Extension Specialistsenior [place] [address] * Rell Gutierrez MD - 02/08/2020 7:04 [...] 72 BILITOT 0.4 BILIDIR 0.1 Recent Labs 02/08/2040002/07/20105402/07/20 0729 CALCIUM 7.9* -- 8.1* MAGNESIUM 0.91 1.00 -- PHOS 1.9* 3.0 -- Recent Labs 02/07/20 0729 INR 1.0 PT 11.8 Recent Labs 02/07/20170902/07/20105402/07/20 0729 TROPONINT 0.27* 0.13* 0.10* Imaging/Studies: XR Chest One View Final Result Similar pattern of mild vascular congestive changes in the setting of intra-aortic pump. Thank you for letting us participate in the care of this patient. For questions regarding this report, please contact the number below. Electronically signed by: Trace Lopez MD, [facility] ([phone]), at 02/08/2020 3:54 AM Cardiac Catheterization Final Result XR Chest One View Final Result Findings suggestive of mild volume overload without kuldeep pulmonary edema. Thank you for letting us participate in the care of this patient. For questions regarding this report, please contact the number below. Electronically signed by: Varghese Richmond MD, [facility] ([phone]), at 02/07/2020 9:53 AM Cardiac Catheterization Final [...] floor Maria Bolaños MD PGY1 Cardiology S2 #4233 CARDIOLOGY ATTENDING NOTE Patient: Danielle Mills Date [...] anterior ST-T wave changes. Went urgently to laborer/grade check due to ongoing pain on 02/06 - 3VD including [employer] RCA; IABP placed due to ongoing pain. [...] Dr. Bolaños. Rell Gutierrez MD, MPH, RPVI, [facility] Pager [phone] Cardiovascular Yard AssistantUniversity Extension Specialistsenior [place] [address] * Carmella Alexander - 02/07/2020 9:02 PM [...] Carmella Alexander MD, PGY-2 Cardiology S1/S2, Pager [phone] 02/07/2020 * Ney Sylvester MD - 02/07/2020 [...] Cardiology 02/07/20 1:58 PM [id number] * Jacquelin Dotson, RN - 02/07/2020 6:50 AM EDT 0630 Pt admitted for [facility] with c/o chest pain. Pt states she [...] Lowe APRN Presenting Diagnosis/Chief Complaint: Transfer from [facility] with NSTEMI/[place]. Active Problem List: Active [...] fever, cough, leg swelling. No palpitations. At [facility] starting 9 pm, VSS stable 113/73 HR 85 bpm, RR 19 Questionable CLEMENTINA in V1-V2. Troponin 0.24, lipase 117 CT abdomen/plevis reportedly unremarkable. Pt is s/p CCY She received 4mg IV morphine , Zofran She was started on Heparin and NTG drip. Received ASA 324mg @ 1:32 am at [facility] Plavix 300mg @ 1:55am and then 300mg @2:21am. Consulted with Cards fellow at [facility] and decided to [...] 2.49) performed by Nimesh Alicia MD at [facility] ENDOSCOPY ??? RECTOCELE REPAIR 2014 Dr. Boo @ [facility] ??? SHOULDER SURGERY Left 06/05/2017 L [...] file Gets together: Not on file Attends yazidi service: Not on file Active member of [...] transferred from [facility] for NSTEMI. TREATMENT PLAN: #[place]/NSTEMI -ANN score 111 , DENIA score 4 -C/w Heparin and NTG drip. - Received ASA 324mg @ 1:32 am at [facility] -Plavix 300mg @ 1:55am and then [...] attempt. Thank you. Arnaud Teague, MSN, RN-, [facility] Tobacco Wedding Planning Internship [facility] Pager #[phone] * Consult Note - Chelsey Beltre RN [...] in an outpatient cardiac rehabilitation program at [facility] was discussed. Patient agrees to a [...] (Interventions Implemented as Appropriate) 02/08/20 0800 02/08/20 0295 Plan of Care Review Progress -- improving [...] and ADLs]: full Surveillance [continuous indirect monitoring]: winnie Patient-specific fall prevention interventions for sensory deficits [...] Stated by Patient: chest pain/NSTEMI. Transferred from [facility] Last COVID test date and time: [...] spouse would be surrogate decision maker per [place] surrogate decision making law. (Only good for 90 days) Any patient receiving care at [facility] must abide by [place] law. The hierarchy for surrogate decision making [...] (i) The agent with financial power of attorney law clerk or a conservator appointed in accordance with [...] at DC: none Home Address Listed as: [address] [place] [phone] Social & Family Supports: Extended Emergency Contact Information Primary Emergency Contact: Andrés Mills Address: [address] [place] [phone] [facility] Mobile Relation: Spouse Community Resources being provided [...] Coverage: Preferred Pharmacy: [id number] [place] [address] [place] [address] [id number] [place], [place] [address] [facility] [address] [facility] [address] [place] [address], [place] [address] [facility] [address] [facility] [address] Primary Care Provider: Francy Lowe APRN [phone] Patient/Caregiver Goals of Treatment: DC home Potential [...] service for NSTEMI as a transfer from [facility]. Plan: A member of the Care Management team will continue to monitor progress, follow for continuityof care and assist with transition of care planning. Clarisa Rees RN, MSN, pecan mallow dipper Office of Care Management Pager: [phone] Work * Brief Op Note - Todd Garcia MD - 02/07/2020 3:26 PM EDT Images from the original note were not included. Preliminary Cardiac Catheterization Procedure Note: Patient Name: Danielle Mills : [id number] MR#: [id number] Case Date: 02/07/2020 Dull Coat Mill Operator: Surgeon(s) and Role: * Todd Garcia MD - Primary Preoperative diagnosis: ?CAD Postoperative diagnosis: *ASCVD * Procedure(s) performed: Stent insertion, coronary Access: left MACHINE INSTALLER--> Perclosed A time-out was conducted prior to [...] Procedure Note: Patient Name: Danielle Mills : [id number] MR#: [id number] Case Date: 02/07/2020 Dull Coat Mill Operator: Surgeon(s) and Role: * Todd Garcia MD - Primary * David Vigil MD - Fellow Preoperative diagnosis: ASCVD Postoperative diagnosis: * ASCVD * Procedure(s) performed: [facility] Coronary angio IABP insertion Access: right radial--> TR band, right MACHINE INSTALLER--> IABP inserted A time-out was conducted prior [...] EDT Cardiac Surgery Consultation Note Danielle Arnaldo Mills is seen at the request of Dr. Gutierrez for the evaluation of MVCAD. HPI: She is a 59 y.o. year old female who was transferred here this am for NSTEMI. She reported 1 week of epigastric pain that she thought was related to GERD. She has had several work ups in the past at the ED at [facility] for epigastric pain that had been negative for acute findings. Thispresentation she was found to have a slight troponin elevation and slight ST elevation in V1-V6 with t wave inversions. Cath this am showed multivessel disease including LAD, Circ and RCA. She was still having some chest pain on low dose nitro. An IABP was placed in the laborer/grade check and she is being transferred to CV. [...] 2.49) performed by Nimesh Alicia MD at [facility] ENDOSCOPY ??? RECTOCELE REPAIR 2014 Dr. Boo @ [facility] ??? SHOULDER SURGERY Left 06/05/2017 L [...] issues/chronic pain. 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 Family- lives with Andrés and his mother. Illicit drug use- denies Scientology- denies Family History: History reviewed. No pertinent [...] Meds:.[JUL Hold] glucose 40% oral geL OR [MAR [...] of Danielle Mills. Signed: JUAN PABLO [facility] Section of Cardiac Surgery Date: 02/07/2020 59 yo female who presents with stuttering MO, on plavix, anterior WMA. CAth shows a very tight proximal LAD stenosis, distal LCX disease, non-dominant RCA which is occluded. The distal LCX circulation is not a good target for bypass surgery. The RCA is not a target. The LAD is a good target. We could end up surgery with only a NAIR to the LAD. Right now on plavix, with an acute MO, on an IABP, with BMI 43 and [...] further details. Vik Justin MD 02/07/2020 Pager [phone] documented in this encounter Plan of Treatment [...] TEST O RDERABLES [facility] [place] [address] * Differential, Automated (02/09/2020 3:34 AM EDT) Pathologist [facility] Neutrophils % 67.7 % [facility] Neutr Abs (ANC) 5.30 1.70 - 6.10 x10(3)/[facility] LABORATORY Lymphocytes % 20.9 % [facility] Lymphocytes Abs 1.6 0.9 - 3.2 x10(3)/[facility] LABORATORY Monocytes % 9.2 % [facility] Monocyte Abs 0.7 0.3 - 0.9 x10(3)/[facility] LABORATORY Eosinophils % 1.5 % [facility] Eosinophils Abs 0.1 0.0 - 0.4 x10(3)/[facility] LABORATORY Basophils % 0.4 % [facility] Basophils Abs 0.0 0.0 - 0.1 x10(3)/[facility] LABORATORY Immature Gran % 0.30 % [facility] Comment: Immature granulocytes(IG's)percentage and absolute count will include metamyelocytes, myelocytes, and promyelocytes. Blood smears from CBCs yielding IG's will be scanned manually for concordance. If this scan disagrees with the automated IG or if promyelocytes are noted, a manual differential will be performed. Lorraine Gran Abs 0.02 0.00 - 0.04 x10(3)/[facility] LABORATORY Blood specimen (specimen) 02/09/2020 3:34 AM EDT 02/09/2020 3:42 AM EDT Narrative Resulting Agency Comment Spec In Lab Maria Bolaños MD HEMATOLOGY ORDERABLE S [facility] [place] [address] * (ABNORMAL) Hemogram (02/09/2020 3:34 AM EDT) WBC 7.8 4.0 - 9.5 x10(3)/[facility] LABORATORY RBC 5.11 4.00 - 5.21 x10(6)/[facility] LABORATORY Hemoglobin 13.5 11.7 - 15.5 gm/dL [facility] Hematocrit 42.8 35.7 - 45.8 % [facility] MCV 83.8 82.6 - 94.4 fL [facility] MCH 26.4(L) 27.1 - 32.0 pg [facility] MCHC 31.5(L) 31.7 - 35.0 gm/dL [facility] Platelets 168 145 - 357 x10(3)/[facility] LABORATORY RDWSD 43.8 37.0 - 46.0 [facility] LABORATORY RDWCV 14.3(H) 11.5 - 14.1 % [facility] MPV 11.5 7.6 - 12.9 [facility] LABOR[facility] nRBC % Auto 0.0 % [facility] nRBC Abs Auto 0.000 0.000 - 0.000 x10(3)/[facility] LABORATORY Blood specimen (specimen) 02/09/2020 3:34 AM EDT 02/09/2020 3:42 AM EDT Narrative Resulting Agency Comment Spec In Lab Maria Bolaños MD HEMATOLOGY ORDERABLE S Performing Organization Address [facility]/ZIP Co de Phone Number [facility] [place] [address] * Phosphorus (02/09/2020 3:34 AM EDT) Pathologist [facility] Phosphorus 2.8 2.5 - 4.5 mg/dL [facility] Blood specimen (specimen) 02/09/2020 3:34 AM EDT 02/09/2020 3:42 AM EDT Narrative Resulting Agency Comment Spec In Lab Rell Gutierrez MD CHEMISTRY ORDERABLES Performing Organization Address [facility] Co de Phone Number [facility] [place] [address] * Magnesium (02/09/2020 3:34 AM EDT) [facility] Magnesium 0.93 0.69 - 1.07 mmol/L [facility] Blood specimen (specimen) 02/09/2020 3:34 AM EDT 02/09/2020 3:42 AM EDT Narrative Resulting Agency Comment Spec In Lab Rell Gutierrez MD CHEMISTRY ORDERABLES Performing Organization Address [facility] Co de Phone Number [facility] [place] [address] * (ABNORMAL) Basic Metabolic Panel (non-fasting) (02/09/2020 3:34 AM EDT) Pathologist [facility] Glucose Lvl 249(H) 65 - 199 mg/dL [...] of body mass or the acutely ill. [email or web address] [email or web address] eGFR 97 >=60 mL/min/1. 73 m?? [facility] Comment: The eGFR was calculated using the CKD-EPI equation. As with all creatinine based estimates of kidney function, eGFR values calculated with the CKD-EPI equation are not accurate in patients with acute kidney failure, extremes of body mass or the acutely ill. http://[employer]/Say[employer]ownkf Blood specimen (specimen) 02/09/2020 3:34 AM EDT 02/09/2020 3:42 AM EDT Narrative Resulting Agency Comment Spec In Lab Rell Gutierrez MD CHEMISTRY ORDERABLES [facility] [place] [address] * POCT Glucose (02/08/2020 8:56 PM EDT) POC Glucose 145 65 - 199 mg/dL [facility] Comment: Supplemental ranges: <140 mg/dL before meals <180 mg/dL all other times of the day Blood specimen (specimen) 02/08/2020 8:56 PM EDT 02/08/2020 8:56 PM EDT Rell Gutierrez MD POINT OF CARE TEST O RDERABLES Performing Organization Address City/[facility]/ZIP Co de Phone Number [facility] [place] [address] * POCT Glucose (02/08/2020 4:52 PM EDT) POC Glucose 144 65 - 199 mg/dL [facility] Comment: Supplemental ranges: <140 mg/dL before meals <180 mg/dL all other times of the day Blood specimen (specimen) 02/08/2020 4:52 PM EDT 02/08/2020 4:52 PM EDT Rell Gutierrez MD POINT OF CARE TEST O RDERABLES Performing Organization Address [facility] Co de Phone Number [facility] [place] [address] * (ABNORMAL) POCT Glucose (02/08/2020 12:35 PM EDT) POC Glucose 235(H) 65 - 199 mg/dL [facility] Comment: Supplemental ranges: <140 mg/dL before meals <180 mg/dL all other times of the day Blood specimen (specimen) 02/08/2020 12:35 PM EDT 02/08/2020 12:35 PM EDT Rell Gutierrez MD POINT OF CARE TEST O RDERABLES Performing Organization Address City/[facility]/ZIP Co de Phone Number [facility] [place] [address] * (ABNORMAL) POCT Glucose (02/08/2020 9:38 AM EDT) POC Glucose 296(H) 65 - 199 mg/dL [facility] Comment: Supplemental ranges: <140 mg/dL before meals <180 mg/dL all other times of the day Blood specimen (specimen) 02/08/2020 9:38 AM EDT 02/08/2020 9:38 AM EDT Rell Gutierrez MD POINT OF CARE TEST O RDERABLES Performing Organization Address City/[facility]/ZIP Co de Phone Number [facility] [place] [address] * (ABNORMAL) POCT Glucose (02/08/2020 7:35 AM EDT) Pathologist [facility] POC Glucose 241(H) 65 - 199 mg/dL [facility] Comment: Supplemental ranges: <140 mg/dL before meals <180 mg/dL all other times of the day Blood specimen (specimen) 02/08/2020 7:35 AM EDT 02/08/2020 7:35 AM EDT Rell Gutierrez MD POINT OF CARE TEST O SUSHILERATRAY Performing Organization Address [facility] Co de Phone Number [facility] [place] [address] * Differential, Automated (02/08/2020 4:01 AM EDT) Pathologist [facility] Neutrophils % 68.7 % [facility] Neutr Abs (ANC) 5.45 1.70 - 6.10 x10(3)/[facility] LABORATORY Lymphocytes % 21.1 % [facility] Lymphocytes Abs 1.7 0.9 - 3.2 x10(3)/[facility] LABORATORY Monocytes % 8.6 % [facility] Monocyte Abs 0.7 0.3 - 0.9 x10(3)/[facility] LABORATORY Eosinophils % 0.8 % [facility] Eosinophils Abs 0.1 0.0 - 0.4 x10(3)/[facility] LABORATORY Basophils % 0.4 % [facility] Basophils Abs 0.0 0.0 - 0.1 x10(3)/[facility] LABORATORY Immature Gran % 0.40 % [facility] Comment: Immature granulocytes(IG's)percentage and absolute count will include metamyelocytes, myelocytes, and promyelocytes. Blood smears from CBCs yielding IG's will be scanned manually for concordance. If this scan disagrees with the automated IG or if promyelocytes are noted, a manual differential will be performed. Lorraine Gran Abs 0.03 0.00 - 0.04 x10(3)/[facility] LABORATORY Blood specimen (specimen) 02/08/2020 4:01 AM EDT 02/08/2020 4:06 AM EDT Narrative Resulting Agency Comment Spec In Lab Kayleigh Crook MD HEMATOLOGY ORDERABLE S [facility] [place] [address] * (ABNORMAL) Hemogram (02/08/2020 4:01 AM EDT) WBC 7.9 4.0 - 9.5 x10(3)/[facility] LABORATORY RBC 5.11 4.00 - 5.21 x10(6)/[facility] LABORATORY Hemoglobin 13.5 11.7 - 15.5 gm/dL [facility] Hematocrit 42.6 35.7 - 45.8 % [facility] MCV 83.4 82.6 - 94.4 [facility] LABORATORY MCH 26.4(L) 27.1 - 32.0 pg [facility] LABORATORY MCHC 31.7 31.7 - 35.0 gm/dL [facility] Platelets 189 145 - 357 x10(3)/[facility] RDWSD 43.5 37.0 - 46.0 [facility] LABORATORY RDWCV 14.3(H) 11.5 - 14.1 % [facility] MPV 11.2 7.6 - 12.9 [facility] LABORATORY nRBC % Auto 0.0 % [facility] nRBC Abs Auto 0.000 0.000 - 0.000 x10(3)/[facility] LABORATORY Blood specimen (specimen) 02/08/2020 4:01 AM EDT 02/08/2020 4:06 AM EDT Narrative Resulting Agency Comment Spec In Lab Kayleigh Crook MD HEMATOLOGY ORDERABLE S Performing Organization Address [facility] Co de Phone Number [facility] [place] [address] * (ABNORMAL) Phosphorus (02/08/2020 4:01 AM EDT) Phosphorus 1.9(L) 2.5 - 4.5 mg/dL [facility] Blood specimen (specimen) 02/08/2020 4:01 AM EDT 02/08/2020 4:06 AM EDT Narrative Resulting Agency Comment Spec In Lab Rell Gutierrez MD CHEMISTRY ORDERABLES Performing Organization Address [facility] de Phone Number [facility] [place] [address] * Magnesium (02/08/2020 4:01 AM EDT) Magnesium 0.91 0.69 - 1.07 mmol/L [facility] Blood specimen (specimen) 02/08/2020 4:01 AM EDT 02/08/2020 4:06 AM EDT Narrative Resulting Agency Comment Spec In Lab Rell Gutierrez MD CHEMISTRY ORDERABLES Performing Organization Address [facility] Co de Phone Number [facility] [place] [address] * (ABNORMAL) Basic Metabolic Panel (non-fasting) (02/08/2020 [...] of body mass or the acutely ill. http://[employer]/[facility] eGFR 113 >=60 mL/min/1. 73 m?? [facility] Comment: The eGFR was calculated using the CKD-EPI equation. As with all creatinine based estimates of kidney function, eGFR values calculated with the CKD-EPI equation are not accurate in patients with acute kidney failure, extremes of body mass or the acutely ill. http://[employer]/[facility]nk[facility] Blood specimen (specimen) 02/08/2020 4:01 AM EDT 02/08/2020 4:06 AM EDT Narrative Resulting Agency Comment Spec In Lab Rell Gutierrez MD CHEMISTRY ORDERABLES [facility] [place] [address] * Potassium (02/07/2020 8:55 PM EDT) Potassium [...] Gutierrez MD CHEMISTRY ORDERABLES Performing Organization Address [facility] Co de Phone Number [facility] [place] [address] * POCT Glucose (02/07/2020 8:48 PM EDT) POC Glucose 183 65 - 199 mg/dL [facility] Comment: Supplemental ranges: <140 mg/dL before meals <180 mg/dL all other times of the day Blood specimen (specimen) 02/07/2020 8:48 PM EDT 02/07/2020 8:48 PM EDT Rell Gutierrez MD POINT OF CARE TEST O RDERABLES Performing Organization Address [facility] de Phone Number [facility] [place] [address] * Potassium (02/07/2020 5:10 PM EDT) Potassium 4.0 3.5 - 5.0 mmol/L [facility] [...] Gutierrez MD CHEMISTRY ORDERABLES Performing Organization Address [facility] Co de Phone Number [facility] [place] [address] * (ABNORMAL) Troponin (02/07/2020 5:10 PM EDT) [...] meets the diagnosis for a myocardial infarction (MO). Detection of a rise and/or fall of cTnT, with at least one value greater than the 99th percentile (> or = 0.01) and with at least one of the following ?? Symptoms of ischemia ?? New or presumed new significant WI-ulbgmmm-H wave (ST-T) changes or new left bundle [...] additional sample may be indicated. Reference: Third Bly Definition of Myocardial Infarction. Journal of the [place] [employer] 2012;60:1581-98 Blood specimen (specimen) 02/07/2020 5:10 PM EDT 02/07/2020 5:28 PM EDT Narrative Resulting Agency Comment Spec In Lab Vik Justin MD CHEMISTRY ORDER TOBI [facility] [place] [address] * XR Chest One View (02/07/2020 5:07 [...] ? Electronically signed by: Trace Lopez MD, [facility] ([phone]), at 02/08/2020 3:54 AM Narrative 02/08/2020 3:54 [...] below. Electronically signed by: Trace Lopez MD, [facility]([phone]), at 02/08/2020 3:54 AM Rell Gutierrez MD [...] CARE TEST O RDERABLES Performing Organization Address City/State/[facility] Co de Phone Number [facility] [place] [address] * CARDIAC CATHETERIZATION (02/07/2020 3:21 PM EDT) Anatomical Region Laterality Modality Other Narrative 02/07/2020 4:29 PM EDT ?[facility] ? Cardiac Catheterization/Intervention Report ? Patient Name: Jarrett, Danielle ? Procedure Date: 02/07/2020 ? A #: [id number] ? Primary Physician: Todd Garcia ? Case #: [id number] ? File Name: [id number] ? Catheterization Order Number: [id number] ? [facility] ? Final Report [place], [place] ? Patient Name: ? Danielle Jarrett ? ID#: ?[id number] ? : ?1960 ? Procedure Date: ? February 07, 2020 ? Case #: ? [id number] ? Room: ? 6 ? Case Physician: ? Todd Garcia MDenysD. ?Start: ?14:09 ?Fellow: ? David Vigil M.D. ?Admission: ??02/07/2020 ? Discharge: ??02/09/2020 ? Procedures: ?* Coronary Angiography ?* Coronary Stent Insertion ?* Vascular Closure Device Deployment ?* Access Site Angiography ? History ?Danilele Mills is a 59 year old woman. [...] ?was designated as ASA Class III. The [facility] clinical frailty scale is 5: ?Mildly Frail. ? Diagnostic Tests: ?Prior Coronary Angiography: ? LV ejection fraction within 6 months is 30%. ?Electrocardiography: ? EKG was assessed by ECG. EKG was Abnormal. EKG showed T-wave ? inversions and other abnormality. ?Medications Prior to Procedure: ? Aspirin, Beta Fernanod and Statin. ? Indications for Diagnostic Cath: ?The priority of the diagnostic procedure was Urgent. The indication for ?the laborer/grade check visit is worsening angina. Chest pain symptom [...] dose administered prior to arrival in the laborer/grade check. ?Recommended anti-platelet/anti-thrombotic regimen: ?Start aspirin 81 mg daily now and continue for indefinitely. ?Start clopidogrel 75 mg daily now and continue for 12 months then stop. ?These recommendations are made at the time of the intervention. Patient ?and provider preferences or a changing clinical situation may require ?modification of this regimen. Consult [facility] Interventional Cardiology for [...] against any medical treatment. Consult ?http://tools.acc.org/[employer]APTriskapp/#!/content/calculator/ or [facility] ?Interventional Cardiology for [...] Procedure Note Todd Garcia MD - 03/23/2020 [facility] Cardiac Catheterization/Intervention Report Patient Name: Danielle Mills Procedure Date: 02/07/2020 A #: [id number] Primary Physician: Todd Garcia Case #: [id number] File Name: [id number] Catheterization Order Number: [id number] [facility] FinalReport [place], [place] Patient Name: Danielle Mills ID#:[id number] :1960 Procedure Date: February 07, 2020 Case [...] was designated as ASA Class III. The [facility] clinical frailty scale is5: Mildly Frail. Diagnostic Tests: Prior Coronary Angiography: LV ejection fraction within 6 months is 30%. Electrocardiography: EKG was assessed by ECG. EKG was Abnormal. EKG showed T-wave inversions and other abnormality. Medications Prior to Procedure: Aspirin, Beta Fernando and Statin. Indications for Diagnostic Cath: The priority of the diagnostic procedure was Urgent. The indicationfor the laborer/grade check visit is worsening angina. Chest pain symptomassessment [...] The priority for the procedure was Emergent.The [facility] indication for the procedure was NSTE-ACS. LVEF [...] premounted 3.50 x 18 mm Resolute EZEQUIEL (JEAENTH) was deployedwith a maximum inflation pressure of [...] the lesion was dilated using a 3.00mm TBTAGCQ95 MM balloon with a maximum inflation pressure [...] dose administered prior to arrival in the laborer/grade check. Recommended anti-platelet/anti-thrombotic regimen: Start aspirin 81 mg daily now and continue for indefinitely. Start clopidogrel 75 mg daily now and continue for 12 months thenstop. These recommendations are made at the time of the intervention.Patient and provider preferences or a changing clinical situation mayrequire modification of this regimen. Consult [facility] Interventional Cardiologyfor questions. [...] or against any medical treatment.Consult http://tools.acc.org/DAPTriskapp/#!/content/calculator/ or [facility] Interventional Cardiology for [...] using the Simplexa COVID-19 Direct Assay by [employer] as authorized by the FDA issued Emergency [...] Department of Pathology and Laboratory Medicine at [facility], certified under the Clinical Laboratory [...] Information for Healthcare Professionals (https://www.cdc.gov/coronavirus/2019-ncov/hcp/index.html). 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 Nasopharyngeal swab (specimen) 02/07/2020 12:30 PM EDT 02/07/2020 12:59 PM EDT Comment:Symptoms->Surveillan ce Narrative Resulting Agency Comment Spec In Lab Vik Justin MD MICROBIOLOGY - GENERAL ORDERABLES Performing Organization Address [facility]/ZIP Co de Phone Number [facility] [place] [address] * POCT Glucose (02/07/2020 10:58 AM EDT) POC Glucose 115 65 - 199 mg/dL [facility] Comment: Supplemental ranges: <140 mg/dL before meals <180 mg/dL all other times of the day Blood specimen (specimen) 02/07/2020 10:58 AM EDT 02/07/2020 10:58 AM EDT Rell Gutierrez MD POINT OF CARE TEST O RDERABLES Performing Organization Address City/[facility]/ZIP Co de Phone Number [facility] [place] [address] * Lavender Tube HOLD (02/07/2020 10:55 AM EDT) Pathologist [facility] Lavender Hold Sample in lab. [facility] Blood specimen (specimen) Venous Draw / Unknown 02/07/2020 10:55 AM EDT 02/07/2020 11:16 AM EDT Kayleigh Crook MD HEMATOLOGY ORDERABLE S Performing Organization Address City/[facility]/ZIP Co de Phone Number [facility] [place] [address] * Phosphorus (02/07/2020 10:55 AM EDT) [facility] Phosphorus 3.0 2.5 - 4.5 mg/dL [facility] Blood specimen (specimen) 02/07/2020 10:55 AM EDT 02/07/2020 11:15 AM EDT Narrative Resulting Agency Comment Spec In Lab Rell Gutierrez MD CHEMISTRY ORDERABLES Performing Organization Address [facility] Co de Phone Number [facility] [place] [address] * Magnesium (02/07/2020 10:55 AM EDT) [facility] Magnesium 1.00 0.69 - 1.07 mmol/L [facility] Blood specimen (specimen) 02/07/2020 10:55 AM EDT 02/07/2020 11:15 AM EDT Narrative Resulting Agency Comment Spec In Lab Rell Gutierrez MD CHEMISTRY ORDERABLES Performing Organization Address City/[facility]/ZIP Co de Phone Number [facility] [place] [address] * Heparin (unfractionated) Level (02/07/2020 10:55 AM EDT) Pathologist [facility] Heparin UFH Level 0.44 IU/mL [facility] Comment: Guidelines for therapeutic [...] MD HEMATOLOGY EDEN LOPES Performing Organization Address City/State/[facility] Co de Phone Number [facility] [place] [address] * (ABNORMAL) Troponin (02/07/2020 10:55 AM EDT) [...] meets the diagnosis for a myocardial infarction (MO). Detection of a rise and/or fall of cTnT, with at least one value greater than the 99th percentile (> or = 0.01) and with at least one of the following ?? Symptoms of ischemia ?? New or presumed new significant SH-uondwgh-M wave (ST-T) changes or new left bundle [...] additional sample may be indicated. Reference: Third Bly Definition of Myocardial Infarction. Journal of the [place] College [employer] 2012;60:1581-98 Blood specimen (specimen) 02/07/2020 10:55 AM EDT 02/07/2020 11:15 AM EDT Narrative Resulting Agency Comment Spec In Lab Vik Justin MD CHEMISTRY ORDER TOBI [facility] [place] [address] * ECHO COMPLETE W CONTRAST (02/07/2020 10:46 AM EDT) EF 61 HEARTLAB SYSTEM Anatomical Region Laterality Modality Other 02/07/2020 Narrative 02/07/2020 1:49 PM EDT Procedure: ?Transthoracic Echocardiogram Patient: ?JARRETT Mcintosh ?(Age): 1960(59y) Med Rec#: ? [id number] ?Sex: ?F ? Site Loc: ? [facility] ?Ht / Wt: ??165(cm)/118(kg) Pt. Loc: ?CCU ? BSA: ?2.21 Study Date: ?? 02/07/2020 ?Pt. Type: Inpatient Tape: ? Referring: Rell Gutierrez ??([id number]) Referring: LISY Reading: Ruslan Mcfarlane ([id number]) Academic Affairs Dean: Laura Brown Diagnosis: *Non-ST elevation (NSTEMI) myocardial [...] Vmax ?0.61 ? m/sec ? MV deceleration [id number] ?msec ? MV A-wave Vmax ?0.77 ? [...] ? Mid-Inferior ?Normal ? Mid-Inferoseptal ?Hypokinetic ? [place]-Septal ? Hypokinetic ? [place]-Anterior ? Akinetic ? [place]-Lateral ?Akinetic ? [place]-Inferior ? Hypokinetic ? [place]-Tip ?Akinetic ? This report has been electronically signed by: Ruslan Mcfarlane MD ? 02/07/2020 13:49:14 Images reviewed and interpretation verified [facility] Cardiac Ultrasound Laboratory Procedure Note Ruslan Mcfarlane MD - 02/07/2020 Procedure: Transthoracic Echocardiogram Patient: JARRETT BUSTILLO(Age): 1960(59y) Med Rec#: [id number] Sex: F Site Loc: [facility] Ht / Wt: 165(cm)/118(kg) Pt. Loc: CCU BSA: 2.21 Study Date: 02/07/2020 Pt. Type: Inpatient Tape: Referring: Rell Gutierrez ([id number]) Referring: LISY Reading: Ruslan Mcfarlane ([id number]) Academic Affairs Dean: Laura Brown Diagnosis: *Non-ST elevation (NSTEMI) myocardial [...] MV E-wave Vmax 0.61 m/sec MV deceleration [id number] msec MV A-wave Vmax 0.77 m/sec MV [...] Normal Mid-Posterolateral Normal Mid-Inferior Normal Mid-Inferoseptal Hypokinetic [place]-Septal Hypokinetic [place]-Anterior Akinetic [place]-Lateral Akinetic [place]-Inferior Hypokinetic [place]-Tip Akinetic This report has been electronically signed by: Ruslan Mcfarlane MD 02/07/2020 13:49:14 Images reviewed and interpretation verified [facility] Cardiac Ultrasound Laboratory Rell Gutierrez [...] ? Electronically signed by: Varghese Richmond MD, [facility] ([phone]), at 02/07/2020 9:53 AM Narrative 02/07/2020 9:53 [...] below. Electronically signed by: Varghese Richmond MD, [facility]([phone]), at 02/07/2020 9:53 AM Vik Justin MD IMG DX ORDERABL ES * CARDIAC CATHETERIZATION (02/07/2020 9:00 AM EDT) Anatomical Region Laterality Modality Other Narrative 02/07/2020 9:04 AM EDT ?[facility] ? Cardiac Catheterization/Intervention Report ? Patient Name: Jarrett, Danielle ? Procedure Date: 02/07/2020 ? A #: [id number] ? Primary Physician: Jose, Todd T ? Case #: [id number] ? File Name: [id number] ? Catheterization Order Number: [id number] ? [facility] ? Final Report [place], [place] ? Patient Name: ? Danielle Jarrett ? ID#: ?[id number] ? : ?1960 ? Procedure Date: ? February 07, 2020 ? Case #: ? [id number] ? Room: ? 2 ? Case Physician: [...] procedure was Urgent. The indication for ?the laborer/grade check visit is ACS less than or equal [...] 8Fr IABP was inserted via the right MACHINE INSTALLER using ultrasound guidance. ?The IABP was advanced via the right MACHINE INSTALLER into the distal aortic arch over ?a wire. ??After confirming position, the IABP was sutured in place and ?connected to the console. ??The counterpulsation was initiated and the ?patient was noted to become chest pain free. ?Successful inseriton of a 50cc IABP via an 8fr sheat in the right MACHINE INSTALLER. ?The attending physician was present for the entire procedure. ?Dr. Todd Garcia M.D. was present during the moderate sedation ?intraservice time as documented by the sedation nurse. ??Case time = 00:34. ?Dr. Todd Garcia M.D. performed the coronary angiography, left heart ?catheterization and IABP insertion in laborer/grade check. ? Todd Garcia M.D. ? Electronically Signed by: Todd Garcia M.D. ? Report Finalized: 02/07/2020 ??08:57 ? Report Last Ammended: 03/23/2020 ??13:05 ? Procedure Note Todd Garcia MD - 03/23/2020 [facility] Cardiac Catheterization/Intervention Report Patient Name: Danielle Mills Procedure Date: 02/07/2020 A #: [id number] Primary Physician: Todd Garcia Case #: [id number] File Name: [id number] Catheterization Order Number: [id number] [facility] FinalReport [place], [place] Patient Name: Danielle Mills ID#:[id number] :1960 Procedure Date: February 07, 2020 Case [...] patient was designated as ASAClass IV. The [facility] clinical frailty scale is 5: Mildly Frail. Diagnostic Tests: Prior Coronary Angiography: LV ejection fraction within 6 months is 30%. Electrocardiography: EKG was assessed by ECG. EKG was Abnormal. EKG showed T-wave inversions. Medications Prior to Procedure: Aspirin and Statin. Indications for Diagnostic Cath: The priority of the diagnostic procedure was Urgent. The indicationfor the laborer/grade check visit is ACS less than or equal [...] 8Fr IABP was inserted via the right MACHINE INSTALLER using ultrasoundguidance. The IABP was advanced via the right MACHINE INSTALLER into the distal aortic archover a wire. [...] angiography, leftheart catheterization and IABP insertion in laborer/grade check. Todd Garcia M.D. Electronically Signed by: Todd [...] TEST O RDERABLES [facility] [place] [address] * (ABNORMAL) Hemoglobin A1c (02/07/2020 7:29 AM [...] Mellitus, Diabetes Care 2013; 36: Suppl. 1, S67-85 Est Avg Gluc 147 mg/dL [facility] Comment: eAG equivalents for [...] into estimated average glucose values. ??Diabetes Care 2008:31(8):5748-4794. Blood specimen (specimen) Venous Draw / Unknown 02/07/2020 7:29 AM EDT 02/07/2020 8:47 AM EDT Narrative Resulting Agency Comment Spec In Lab Keyon Foley MD CHEMISTRY ORDERABLES Performing Organization Address [facility] Co de Phone Number [facility] [place] [address] * Sedimentation rate (02/07/2020 7:29 AM EDT) Pathologist [facility] Sed Rate 25 2 - 39 mm/hr [...] MD HEMATOLOGY ORDERABLE S Performing Organization Address [facility] Co de Phone Number [facility] [place] [address] * (ABNORMAL) Hepatic Function Panel (02/07/2020 7:29 AM EDT) [facility] Total Protein 6.0(L) 6.1 - 8.0 gm/dL [...] Gutierrez MD CHEMISTRY ORDERABLES Performing Organization Address [facility]/ZIP Co de Phone Number [facility] [place] [address] * Lipase (02/07/2020 7:29 AM EDT) Pathologist [facility] Lipase 28 0 - 60 unit/L [facility] Blood specimen (specimen) Venous Draw / Unknown 02/07/2020 7:29 AM EDT 02/07/2020 7:45 AM EDT Narrative Resulting Agency Comment Spec In Lab Rell Gutierrez MD CHEMISTRY ORDERABLES Performing Organization Address [facility] Co de Phone Number [facility] [place] [address] * (ABNORMAL) CRP, acute inflammation (02/07/2020 7:29 AM EDT) [facility] CRP 18.2(H) <=4.9 mg/L [facility] Blood specimen (specimen) Venous Draw / Unknown 02/07/2020 7:29 AM EDT 02/07/2020 7:45 AM EDT Narrative Resulting Agency Comment Spec In Lab Rell Gutierrez MD CHEMISTRY ORDERABLES Performing Organization Address [facility] Co de Phone Number [facility] [place] [address] * Differential, Automated (02/07/2020 7:29 AM EDT) [facility] Neutrophils % 64.8 % [facility] Neutr Abs (ANC) 5.08 1.70 - 6.10 x10(3)/[facility] Lymphocytes % 27.1 % [facility] Lymphocytes Abs 2.1 0.9 - 3.2 x10(3)/[facility] LABORATORY Monocytes % 6.8 % [facility] Monocyte Abs 0.5 0.3 - 0.9 x10(3)/[facility] LABORATORY Eosinophils % 0.5 % [facility] Eosinophils Abs 0.0 0.0 - 0.4 x10(3)/[facility] Basophils % 0.5 % [facility] Basophils Abs 0.0 0.0 - 0.1 x10(3)/[facility]AT[facility] Immature Gran % 0.30 % [facility] Comment: Immature granulocytes(IG's)percentage and absolute count will include metamyelocytes, myelocytes, and promyelocytes. Blood smears from CBCs yielding IG's will be scanned manually for concordance. If this scan disagrees with the automated IG or if promyelocytes are noted, a manual differential will be performed. [place] Gran Abs 0.02 0.00 - 0.04 x10(3)/[facility] LAB[facility]ATORY Blood specimen (specimen) 02/07/2020 7:29 AM EDT 02/07/2020 7:45 AM EDT Narrative Resulting Agency Comment Spec In Lab Vik Justin MD HEMATOLOGY EDEN LOPES [facility] [place] [address] * (ABNORMAL) Hemogram (02/07/2020 7:29 AM EDT) WBC 7.8 4.0 - 9.5 x10(3)/[facility] LABORATORY RBC 5.33(H) 4.00 - 5.21 x10(6)/[facility] Hemoglobin 13.7 11.7 - 15.5 gm/dL [facility] Hematocrit 45.2 35.7 - 45.8 % [facility] MCV 84.8 82.6 - 94.4 fL [facility] MCH 25.7(L) 27.1 - 32.0 pg [facility] MCHC 30.3(L) 31.7 - 35.0 gm/dL [facility] Platelets 173 145 - 357 x10(3)/[facility] LABORATORY RDWSD 43.9 37.0 - 46.0 fL [facility] RDWCV 14.2(H) 11.5 - 14.1 % [facility] MPV 11.0 7.6 - 12.9 fL [facility] nRBC % Auto 0.0 % [facility] nRBC Abs Auto 0.000 0.000 - 0.000 x10(3)/[facility] Blood specimen (specimen) 02/07/2020 7:29 AM EDT 02/07/2020 7:45 AM EDT Narrative Resulting Agency Comment Spec In Lab Vik Justin MD HEMATOLOGY EDEN LOPES Performing Organization Address [facility] Co de Phone Number [facility] [place] [address] * Prothrombin Time (02/07/2020 7:29 AM EDT) PT 11.8 9.4 - 12.5 sec [facility] INR 1.0 [facility] Comment: An INR <2.0 indicates adequate [...] Spec In Lab Vik Justin MD HEMATOLOGY ORDBelgica LOPES Performing Organization Address City/[facility]/ZIP Co de Phone Number [facility] [place] [address] * (ABNORMAL) pro-Brain Natriuretic Peptide (02/07/2020 7:29 AM EDT) ProBNP 893(H) <=125 pg/mL [facility] Blood specimen (specimen) 02/07/2020 7:29 AM EDT 02/07/2020 7:45 AM EDT Narrative Resulting Agency Comment Spec In Lab Vik Justin MD CHEMISTRY ORDER TOBI [facility] [place] [address] * Lipid Panel (Reflex Direct LDL) (02/07/2020 7:29 AM EDT) Chol, Total 186 mg/dL [facility] Comment: Lower Risk: <200 mg/dL Average Risk: 200-239 mg/dL Higher Risk: >ht=585 mg/dL Triglycerides 161 mg/dL [facility] Comment: Average Risk/Lower Risk: <150 mg/dL Borderline High Risk: 150-199 mg/dL High Risk: 200-499 mg/dL Very High Risk: >ug=560 mg/dL HDL 34 mg/dL [facility] Comment: Males: ?? Higher Risk: <40 mg/dL Females: ?? HIgher Risk: <50 mg/dL LDL Cholesterol 120 mg/dL [facility] Comment: Lowest Risk: <100 mg/dL Lower Risk: 100-129 mg/dL Borderline High Risk: 130-159 mg/dL High Risk: 160-189 mg/dL Very High Risk: >iq=637 mg/dL Chol/HDL Ratio 5.5 ratio [facility] Lipid Interpretation See Note [facility] Comment: Lipid management should be guided by a patient? s ASCVD risk, goals and preferences. ACC/AHA Guidelines recommend high intensity statin if clinical ASCVD or LDL greater than or equal to 190 mg/dL. [email or web address]/SVB-DIP-Sgceyfdfw Adults aged 40-75 with LDL 70-189 mg/dL should have their 10 year ASCVD risk estimated with the ACC/AHA ASCVD risk sales estimator http://tools.acc.org/AKNHO-Uwba-Lfnqblnfc/ Statin should be discussed if risk greater [...] MD CHEMISTRY ORDER TOBI Performing Organization Address City/[facility]/ZIP Co de Phone Number [facility] [place] [address] * TSH (02/07/2020 7:29 AM EDT) TSH 1.30 0.27 - 4.20 mcIU/mL [facility] Blood specimen (specimen) 02/07/2020 7:29 AM EDT 02/07/2020 7:45 AM EDT Narrative Resulting Agency Comment Spec In Lab Vik Justin MD CHEMISTRY ORDER TOBI Performing Organization Address City/[facility]/ZIP Co de Phone Number [facility] [place] [address] * (ABNORMAL) Troponin (02/07/2020 7:29 AM EDT) Troponin-T 0.10(H) 0.00 - 0.00 ng/mL [facility] Comment: Called by: graciela, Read back by: edita yates (steam blocker), Date/Time:_02/07/20 08:14. The 99th percentile for Troponin T is less than 0.01 ng/mL, any detectable cTnT concentration using this assay should be considered elevated. According to the third universal definition of myocardial infarction the following criteria with a clinical presentation consistent with acute myocardial ischemia meets the diagnosis for a myocardial infarction (MO). Detection of a rise and/or fall of cTnT, with at least one value greater than the 99th percentile (> or = 0.01) and with at least one of the following ?? Symptoms of ischemia ?? New or presumed new significant ZZ-proxtzn-T wave (ST-T) changes or new left bundle [...] additional sample may be indicated. Reference: Third Bly Definition of Myocardial Infarction. Journal of the [place] [employer] 2012;60:1581-98 Blood specimen (specimen) 02/07/2020 7:29 AM EDT 02/07/2020 7:45 AM EDT Narrative Resulting Agency Comment Spec In Lab iVk Justin MD CHEMISTRY ORDER TOBI [facility] [place] [address] * (ABNORMAL) BMP w/fasting Glucose (02/07/2020 7:29 [...] of Diabetes Mellitus, Position Statement from the [place] [employer]. ??Diabetes Care, Volume 33, Supplement [...] of body mass or the acutely ill. [email or web address] CITYnkf eGFR 111 >=60 mL/min/1. 73 m?? [facility] Comment: The eGFR was calculated using the CKD-EPI equation. As with all creatinine based estimates of kidney function, eGFR values calculated with the CKD-EPI equation are not accurate in patients with acute kidney failure, extremes of body mass or the acutely ill. [email or web address] Blood specimen (specimen) 02/07/2020 7:29 AM EDT 02/07/2020 7:45 AM EDT Narrative Resulting Agency Comment Spec In Lab Vik Justin MD CHEMISTRY ORDER TOBI [facility] [place] [address] * EKG 12 Lead (02/07/2020 6:33 AM EDT) Ventricular rate 80 BPM MUSE SYSTEM Atrial Rate 80 BPM MUSE SYSTEM P-R Interval 150 ms MUSE SYSTEM QRS Duration 82 ms MUSE SYSTEM Q-T Interval 426 ms MUSE SYSTEM QTC Calculated (Bezet) 491 ms MUSE SYSTEM Calculated P Floris 54 degrees MUSE SYSTEM Calculated R Floris 6 degrees MUSE SYSTEM Calculated T Floris 103 degrees MUSE SYSTEM INTERPRETATION Normal sinus rhythm Anterior infarct , age undetermined Possible Left atrial enlargement T wave abnormality, consider lateral ischemia Abnormal ECG No previous ECGs available I personally reviewed the tracing and edited the fellows interpretation Confirmed by fellow Fabian Waters ([id number]) on 02/07/2020 2:39:52 PM Confirmed by MD [...] 40 mg fentaNYL (PF) 50 mcg/mL injection 25 mcg, Intravenous, Administer over 4 Hours, EVERY 30 MIN PRN, 4 doses, Starting on Fri02/07/20 at 0924, Until Fri02/07/20 at 1552, Pain, sheath removal, May repeat once while in Cath Recovery Unit, Cath (Recovery-Hospital Unit), Routine Given 02/07/2020 3:08 PM EDT 25 mcg fentaNYL 50 mcg/mL multi-dose injection ONCE PRN, Starting on Fri02/07/20 at 1411, Until Fri02/07/20 at 1527, Cath (Intra-Procedure), Routine Given 02/07/2020 2:53 PM EDT 50 mcg Given 02/07/2020 2:11 PM EDT 50 mcg glucagon (human recombinant) injection [...] injection ONCE PRN, Starting on Fri02/07/20 at 1420, Until Fri02/07/20 at 1527, Cath (Intra-Procedure), Routine Given 02/07/2020 2:27 PM EDT 1,500 Units Given 02/07/2020 2:20 PM EDT 7,000 Units insulin lispro (HumaLOG) VIAL [...] solution ONCE PRN, Starting on Fri02/07/20 at 1529, Until Fri02/08/20 at 0922, Cath (Intra-Procedure), Routine Given 02/07/2020 3:29 PM EDT 260 mLs liothyronine (Cytomel) tablet 5 mcg 5 [...] PM EDT 25 mg midazolam (PF) (VERSED) injection 1 mg 1 mg, Intravenous, Administer over 4 Hours, EVERY 1 HOUR PRN, 2 doses, Starting on Fri02/07/20 at 0924, Until Fri02/07/20 at 1453, Sleep, For sheath removal, May repeat once while in Cath Recovery Unit., Cath (Recovery-Hospital Unit), Routine Given 02/07/2020 2:53 PM EDT 1 mg Given 02/07/2020 2:11 PM EDT 1 mg midazolam (PF) (VERSED) multi-dose injection ONCE PRN, Starting on Fri02/07/20 at 1509, Until Fri02/07/20 at 1527, Cath (Intra-Procedure), Routine Given 02/07/2020 3:09 PM EDT 1 mg nicotine polacrilex (NICORETTE) gum 2 mg 2 mg, Buccal, EVERY 2 HOURS PRN, Starting on Fri02/08/20 at 0157, Until Fri02/09/20 at 1430, Smoking cessation, Chew gum slowly. Do not swallow. Maximum of 48 mg/day., Routine Given 02/08/2020 9:00 PM EDT 2 mg nitroGLYcerin 100 mcg/mL intracoronary dilution ONCE PRN, Starting on Fri02/07/20 at 1438, Until Fri02/07/20 at 1527, Cath (Intra-Procedure), Routine Given 02/07/2020 2:38 PM EDT 150 mcg nitroGLYcerin 50 mg in dextrose 5% 250 mL infusion CONTINUOUS PRN, Starting on Fri02/07/20 at 1436, Until Fri02/07/20 at 1527, Cath (Intra-Procedure), Routine New Bag 02/07/2020 2:36 PM EDT 20 mcg/min 6 mL/hr nitroGLYcerin 50 mg in dextrose 5% 250 [...] Fri02/08/20 at 0700, Until Discontinued, Routine 1401 (JUL Hold - [...] 1000, Routine 0932 (Given - Provider: Maribel Babcock RN) insulin lispro (HumaLOG) VIAL injection 0-8 Units 0-8 Units, Subcutaneous, 3 TIMES DAILY WITH MEALS, First dose on Fri02/08/20 at 1200, Until Discontinued, MEAL ASSOCIATED Give 1 unit for every 10 grams carbohydrate. Hold if not eating or if BG less than 70., Routine 1256 (Given - Provider: Maribel Babcock RN)1814 (Given - Provider: Maribel Babcock RN) 0848 (Given - Provider: Ann Mari [...] not met) 0808 (Given - Provider: Maribel Babcock, SHAR)0939 (Given - Provider: Maribel Babcock, SHAR) insulin lispro (HumaLOG) VIAL injection 2-12 Units(Linked [...] Maribel Babcock RN)1813 (Given - Provider: Maribel Babcock RN)205 (Given - Provider: Gamaliel Shelton, SHAR) 0848 (Given - Provider: Ann Mari RN)1130 (Due) liothyronine (Cytomel) tablet 5 mcg 5 mcg, Oral, DAILY, First dose on Fri02/08/20 at 0600, Until Discontinued, Routine 1401 (MAR Hold - Provider: Admin Adt - Reason: Transfer to a Procedural area)1549 (MAR Unhold - Provider: Admin Adt) 0622 (Given [...] 120 Minutes 0517 (New Bag - Provider: Gamlaiel Shelton RN)0717 (Stopped - Provider: Gamaliel Shelton RN) metoprolol succinate XL (Toprol-XL) tablet 50 mg 50 mg, Oral, DAILY, First dose (after last modification) on Fri02/10/20 at 0900, Until Discontinued, DO NOT CRUSH OR OPEN, Routine metoprolol tartrate (Lopressor) tablet 12.5 mg (CANCELED) 12.5 mg, Oral, EVERY 12 HOURS SCHEDULED, First dose on Fri02/07/20 at 0900, Until Discontinued, Routine 0755 (MAR Hold - Provider: Admin Adt - Reason: Transfer to a Procedural area)0900 (Automatically Held - Provider: Admin Adt)0906 ([facility] Unhold - Provider: Admin Adt)1401 ([facility] Hold - Provider: Admin Adt - Reason: Transfer to a Procedural area)1549 ([facility] Unhold - Provider: Admin Adt)203 (Given - Provider: Lissa Sabillon RN) 0806 (Given - Provider: Maribel Babcock RN) metoprolol tartrate (Lopressor) tablet 12.5 mg (CANCELED) 12.5 mg, Oral, EVERY 6 HOURS SCHEDULED, First dose (after last modification) on Fri02/08/20 at 1200, Until Discontinued, Hold for HR < 55, SBP < 90, Routine 1138 (Given - Provider: Maribel Babcock RN)1812 (Given - Provider: Maribel Babcock RN)2355 (Given - Provider: Gamaliel Shelton RN) 0518 [...] 1049 (Given - Provider: Alyce Navarro RN)1401 ([facility] Hold - Provider: Admin Adt - Reason: Transfer to a Procedural area)1549 ([facility] Unhold - Provider: Admin Adt) 0806 (Given - Provider: Maribel Babcock RN) 0817 (Given - Provider: Ann Mari RN) potassium, sodium phosphates (Neutra-Phos) 280-160-250 mg oral packet 3 g (COMPLETED) 3 g, Oral, EVERY 4 HOURS, 2 doses, First dose on Fri02/08/20 at 1000, Last dose on Fri02/08/20 at 1400, Take with full glass of water, Routine 0931 (Given - Provider: Maribel Babcock, SHAR)1405 (Given - Provider: Maribel Babcock RN) sodium chloride 0.9 % (flush) flush 5 mL (CANCELED) 5 mL, Intravenous, EVERY 12 HOURS, First dose on Fri02/07/20 at 1015, Until Discontinued, Cath (Day of Procedure), Routine 1015 (Not Given - Provider: Alyce Navarro RN - Reason: Contraindicated)2215 (Not Given - Provider: Lissa Sabillon RN - Reason: See comment - Comment: given during assessment) 0808 (Given - Provider: Maribel Babcock, RN) sodium chloride 0.9 % (flush) flush 5 mL 5 mL, Intravenous, 2 TIMES DAILY, First dose on Fri02/07/20 at 1015, Until Discontinued, Routine 1051 (Given - Provider: Alyce Navarro, SHAR)1401 (JUL Hold - Provider: Admin Adt - Reason: Transfer to a Procedural area)1549 (JUL Unhold - Provider: Admin Adt)203 (Given - Provider: Lissa Sabillon, SHAR) 0807 (Given - Provider: Maribel Babcock, RN)2100 (Given - Provider: Gamaliel Shelton RN) 0820 (Given - Provider: Ann Mari RN) Continuous Medication Order 02/07/2020 02/08/2020 02/09/2020 [...] Navarro RN)1100 (Rate/Dose Verify - Provider: Alyce Navarro, RN)1200 (Rate/Dose Verify - Provider: Alyce Navarro, RN)1401 (JUL Hold - Provider: Admin Adt - Reason: Transfer to a Procedural area)1549 (MAR Unhold - Provider: Admin Adt)1600 (Rate/Dose Verify - Provider: Alyce Navarro, RN)1800 (Stopped - Provider: Alyce Navarro, SHAR) PRN Medication Order 02/07/2020 02/08/2020 02/09/2020 acetaminophen [...] , STAT 1049 (Given - Provider: Alyce Navarro, SHAR)1401 ([facility] Hold - Provider: Admin Adt - Reason: Transfer to a Procedural area)1549 ([facility] Unhold - Provider: Admin Adt) 0109 (Given - Provider: Lissa Sabillon RN) clonazePAM (KlonoPIN) tablet 0.5 mg 0.5 mg, Oral, 2 TIMES DAILY PRN, Starting on Fri02/07/20 at 0921, Until Fri02/09/20 at 1430, Anxiety, DO NOT SPLIT, CRUSH OR OPEN, Routine 1401 ([facility] Hold - Provider: Admin Adt - Reason: Transfer to a Procedural area)1549 ([facility] Unhold - Provider: Admin Adt) cyclobenzaprine (Flexeril) tablet 10 mg 10 mg, Oral, 3 TIMES DAILY PRN, Starting on Fri02/07/20 at 0921, Until Fri02/09/20 at 1430, Muscle spasms, Routine 1401 ([facility] Hold - Provider: Admin Adt - Reason: Transfer to a Procedural area)1549 ([facility] Unhold - Provider: Admin Adt) dextrose 10% [...] the duration of the active insulin. 0755 ([facility] Hold - Provider: Admin Adt - Reason: Transfer to a Procedural area)0906 ([facility] Unhold - Provider: Admin Adt)1401 ([facility] Hold - Provider: Admin Adt - Reason: Transfer to a Procedural area)1549 ([facility] Unhold - Provider: Admin Adt) fentaNYL (PF) [...] Maxime Trujillo, SHAR)0825 (Given - Provider: Maxime Trujillo, SHAR)0829 (Given - Provider: Elsie Camacho RN) fentaNYL [...] duration of the active insulin., Routine 0755 ([facility] Hold - Provider: Admin Adt - Reason: Transfer to a Procedural area)0906 ([facility] Unhold - Provider: Admin Adt)1401 ([facility] Hold - Provider: Admin Adt - Reason: Transfer to a Procedural area)1549 ([facility] Unhold - Provider: Admin Adt) glucose (GLUTOSE) [...] of tube = 37.5 grams., Routine 0755 ([facility] Hold - Provider: Admin Adt - Reason: Transfer to a Procedural area)0906 ([facility] Unhold - Provider: Admin Adt)1401 ([facility] Hold - Provider: Admin Adt - Reason: Transfer to a Procedural area)1549 ([facility] Unhold - Provider: Admin Adt) heparin (porcine) [...] Cath (Intra-Procedure), Routine 08 (Given - Provider: Todd Garcia MD) nitroGLYcerin [...] for Potassium Protocol in online policies., Routine 220 (See Alternative - Provider: Lissa Sabillon RN) potassium chloride ER (K-Dur/Klor-Con) tablet 40 mEq(Linked Group 4) 40 mEq, Oral, EVERY 4 HOURS PRN, Starting on Fri02/07/20 at 1642, Until Fri02/09/20 at 1430, hypokalemia, Administer for serum potassium (mMol/L) of 3.6 - 3.8 See instructions for Potassium Protocol in online policies., Routine 220 (Given - Provider: Lissa Sabillon RN) sodium [...] Routine documented in this encounter Care Teams Environmental Field Professional Relationship Specialty Start Date End Date Francy Lowe, LETTER SORTING MACHINE OPERATOR PCP - General Family Medicine 10/19/19 02/11/21 documented as of this encounter
--- OUTSIDE RECORDS SUMMARY | 2023-11-25 15:34 | XMS_ITS | Encounter Summary ---
[facility] [place] [address] Care Team Providers Care Sprinkler Irrigation Equipment Mechanic Name Role Phone Francy Lowe APRN Primary Care Provider + Reason for Visit * Auth/Cert Specialty Diagnoses / Procedures Referred By Jasson t Referred To Contact Diagnoses NSTEMI (non-ST elevated myocardial infarction) nstemi Referral ID Status Reason Start Date Expiration Date Visits Re quested Visits Authorized [id number] 1 1 Encounter Details Date Type Department Care Team (Latest Contact Info) Description 02/07/2020 8:50 AM EDT - 02/07/2020 11:59 PM EDT Hospital Encounter Non[place] [id number] Discharge Disposition: Home Social History Tobacco Use Types Packs/Day Years Used Date Smoking Tobacco: Every Day Cigarettes 1 45 Smokeless Tobacco: Never Comments:states is quitting 11/19/2018 Alcohol Use Standard Drinks/Week Comments Yes 0 (1 standard drink = 0.6 oz [...] every evening. 90 tablet 3 02/09/2020 01/29/2022 esomeprazole (NexIUM) 40 mg Capsule, Delayed Release(E.C.)Indicat ions:dyspepsia Take 40 mg by mouth every morning (before breakfast). Indications: indigestion 02/09/2020 glimepiride (AMARYL) 4 mg TabletIndications:Ty pe 2 [...] BY MOUTH AT BEDTIME NEEDED 09/05/2019 08/09/2022 Ibuprofen 200 mg Capsule Take 800 mg by mouth. 2019 sucralfate (CARAFATE) 100 mg/mL Suspension Take 1 g by mouth 4 times daily. PRN 01/29/2022 BD ULTRA-FINE ORIG PEN NEEDLE 29 gauge x 1/2 Needle INJECT INSULIN SUBCUTANEOUSLY DIRECTED. 3 10/17/2017 11/03/2023 documented as of this encounter Plan of Treatment Not on file documented as of this encounter Procedures Procedure Name Priority Date/Time Associated Diagnosis Comments ECHO COMPLETE W CONTRAST Routine 02/07/2020 10:46 AM EDT Non-ST elevation myocardial infarction (NSTEMI) documented in this encounter Visit Diagnoses Not on filedocumented in this encounter Administered Medications Inactive Administered Medications - up to 3 most recent administrations Medication Order MAR Action Action Date Dose Rate Site perflutren protein-A microspheres (OPTISON) 0.22 mg/mL injection 0.5 mL 0.5 mL, Intravenous, ONCE PRN, 1 dose, Starting on Fri02/07/20 at 1047, Until Fri02/07/20 at 0945, for enhancement of sub-optimal echo images, Echo Lab (Intra-Procedure), Routine Given 02/07/2020 9:45 AM EDT 1.2 mLs documented in this encounter Care Teams Sprinkler Irrigation Equipment Mechanic Relationship Specialty Start Date End Date Francy Lowe APRN PCP - General Family Medicine 10/19/19 02/11/21 documented as of this encounter
--- OUTSIDE RECORDS SUMMARY | 2023-11-25 15:35 | XMS_ITS | Encounter Summary ---
Author Organization [facility] Address [facility] [place] [address] Care Team Providers Care Transport Assistant Name Role Phone Francy Lowe APRN Primary Care Provider + Reason for Visit * Consultation (Routine) - Specialty Diagnoses / Procedures Referred By Contmacie t Referred To Contact Endocrinology Diagnoses Autoimmune thyroiditis Francy Lowe APRN [address] [place] [address] Phone: [facility] Endocrinology [address] [place] [phone] Referral ID Status Reason Start Date Expiration Date V isits Requested Visits Authorized [id number] Consult, Test & Treat Connection Center PCP Updated and/or Approved 10/19/2019 10/18/2020 1 1 Encounter Details Date Type Department Care Team (Latest Contact Info) Description 10/21/2019 10:30 AM EDT TH Visit (TeleHealth) [place] [phone] Marta Cabral MD [facility] [place] [address] Delano's thyroiditis Social History Tobacco Use Types Packs/Day Years Used Date Smoking Tobacco: Every Day Cigarettes Smokeless Tobacco: Never Comments:states is quitting 11/19/2018 Alcohol Use Standard Drinks/Week Comments Yes 0 (1 standard drink = 0.6 oz pur e alcohol) ocassional Sex and Gender Information Value Date Recorded Sex Assigned at Not on file Gender Identity Female 02/07/2020 7:29 AM EDT Sexual Orientation Not on file documented as of this encounter Patient Instructions * Patient Instructions* Marta Cabral MD - 10/21/2019 10:30 AM EDT PLAN: 1. Medication: Patient will start taking levothyroxine 25 mcg qd for a week and if tolerated to increase to 50 mcg daily. She is allowed to cut back to 25 mcg qd if she notes hyperactive symptoms. She was instructed to take it on an empty stomach at least 1/2 h before breakfast and separate from iron, calcium or multivitamin-multimineral supplement to ensure full absorption of her thyroid medication. Patient was advised of proper dosage, how to take the medication properly, precautions, and potential complication of the medication prescribed. Target TSH 0.5-1.5 and <2.0 for her weight and fatigue issues. Ok to taper lantus by 10-20u (10-20%) if she notes nocturnal hypoglycemia while she plans to eat low carb diet - to avoid low BG and reduce weight gain. Patient will continue all other medications Ideally she should resume using CPAP at night to reduce daytime fatigue for her BEN and to quit smoking completely. 2. To eat low fat/controlled carb and healthy diet as well as exercise as tolerated to keep weight down and be able to cut back on insulin dose further. 3. Lab: check lab locally with PCP in 2 mo for TSH, FT4, 25vitamin D, B12 (for her neuropathy and autoimmune Delano's), A1c, and lipid profile (levothyroxine should help reduce cholesterol for marge well). X-ray/Imaging study: Office Thyroid ultrasound for thyroid size and to r/o nodule at [facility] as scheduled tomorrow. 4. RTC: As needed and she can recheck TSH q2-3 mo as needed with PCP during the interim while we titrate her LT4 dose to keep TSH at target of 0.5-1.5 with FT4 at the high normal end for her. documented in this encounter Progress Notes * Marta Cabral MD - 10/21/2019 10:30 AM EDT Endocrinology Consultation Date of Visit: 10/21/2019 Patient: Name: Danielle Mills : 1960 PCP: Francy Lowe APRN Provided by Marta Cabral MD, PhD, FACE, FACP Danielle Mills was seen in consultation in the Endocrine clinic at the request of Dr. 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 Patient's previous record as are the lab results are reviewed. HISTORY OF PRESENT ILLNESS: Patient is a very pleasant 59 y.o. 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 However, she is having all hypothyroid symptoms as shown below. She already triedto eat healthier but unable to lose weight. She feels very fatigue all the time with dry skin and lots more scalp hair loss lately. She also has T2DM with good control on lantus 100u => down to 94 u qAM lately when she started to cut back on carb intake. She used to have low BG dropped from 104 to 54 overnight so we'd rec reducing lantus by 10-20% which is 10-20u down if low BG<80 while fasting (not by 2u as she is on a high dose). Target is to keep fasting BG 80-140 range without low to avoid wt gain. She could not tole rate metformin, GLP-1 (byetta or victoza) and last A1c was better down from 8.2 to 7.1% at target. She was diagnosed with BEN and unable to use CPAP due to more sinus issue so some of her daytime fatigue could be related to BEN, Patient has FH of thyroid problem on mother side but no family history of thyroid cancer that patient is aware of. No previous head and neck irradiation and does not take other supplements or medications that can cause low thyroid. She noticed mild goiter, R >L with some neck discomfort and occasional difficulty swallowing. Her PCP already arranged for thyroid US at [facility] tomorrow. Recent labs: 06/03/19 10/13/19 TSH 2.25 1.75 FT4 0.96 0.96 still borderline low FT3 3.3 4.4 (nl 2.8-5.3) TPO Ab 182H 324H Tg AB 63H 61H Fatigue - Yes Weight gain - Yes Intolerance to cold - Yes Dry skin - Yes constipation - Yes Menstrual irregularities - No, already menopause (s/p [...] ??? Carpal tunnel syndrome G56.00 ??? Cystocele [id number] ??? Depression, anxiety, insomnia, PTSD F32.9 ??? [...] 63 with normal TSH 1.75- 2.25) E06.3 Allergy Allergies Allergen Reactions ??? Atorvastatin Other (See Comments) ??? Codeine Other (See Comments) ??? Hydrocodone-Acetaminophen Itching ??? Indomethacin Itching ??? Oxycodone-Acetaminophen Itching ??? Prednisone ??? Rosuvastatin Other (See Comments) Current Medication Current Outpatient Medications on File Prior to Visit Medication Sig Dispense Refill ??? cyclobenzaprine (Flexeril) 10 mg Tablet TAKE 1 TABLET BY MOUTH AT BEDTIME NEEDED ??? pregabalin (Lyrica) 25 mg Capsule TAKE 1 CAPSULE BY MOUTH TWICE DAILY ??? omeprazole (PriLOSEC) 40 mg Capsule, Delayed Release(E.C.) TAKE 1 CAPSULE BY MOUTH TWICE DAILY ??? Lantus U-100 Insulin Solution ??? estradiol (ESTRACE) 0.01 % (0.1 mg/gram) Cream Place 2 g vaginally twice a week. 42.5 g 12 ??? acetaminophen (TYLENOL) 500 mg Tablet Take [...] file Gets together: Not on file Attends restoration service: Not on file Active member of [...] file Family History +DM2, thyroid PHYSICAL EXAM: BW 274 lbs per pt's report No hoarseness of voice or stridor. Deferred. Thyroid US at [facility] Radiology - pending for the report tomorrow (10/22/19) DIAGNOSIS: 59 y.o. lady with confirmed Delano's thyroiditis with elevated TPO (182-324) and Tg antibodies (61-63) twice, so there is no need to follow the antibody titers from now as they are only used for the diagnosis which is now it's definite. She has had normal TSH 1.75-2.25 range still euthyroid but borderline low FT4 at 0.96 x2 (FT3 would be the last to get low in severe hypothyroid). She is having lots of hypothyroid symptoms and already tried to eat healthy but unable to lose weight but also on high dose insulin using lantus 94-100u daily for her T2DM with good control but some nocturnal hypoglycemia down to 50s when she started low carb diet). So we'd rec reducing lantus by 10-20% which is 10- 20u for her if she has low BG<80 while fasting. Target is to keep fasting BG 80- 140 range without low to avoid wt gain. She could not tolerate metformin, GLP-1 (byetta or victoza) and last A1cwas better down from 8.2 to 7.1% at target. She also has untreated BEN (unable to use CPAP due to sinus issue) and feels very fatigue all the time, so some of her daytime fatigue could be related to BEN. Her dry skin and scalp hair loss could be related to menopause but they could be due to a borderline hypothyroid with low normal FT4. We can do therapeutic trial and start her on a low dose levothyroxine to see if any of her symptoms will improve. Target TSH 0.5-1.5 and <2.0 for her obesity (BMI 45). She has no cardiovascular disease pr arrhythmia. She notes mild goiter R>L and globus, so it's good that her PCP has arranged for thyroid US at local hospital tomorrow. PLAN: 1. Medication: Patient will start taking levothyroxine 25 mcg qd for a week and if tolerated to increase to 50 mcg daily. She is allowed to cut back to 25 mcg qd if she notes hyperactive symptoms. Addendum: => D/C LT4 as it made her feel very depressed and ok to try low dose T3 5 mcg qd (active short-acting form) which some psychiatrists like to try for depression. She was instructed to take it on an empty stomach at least 1/2 h before breakfast and separate fromiron, calcium or multivitamin-multimineral supplement to ensure full absorption of her thyroid medication. Patient was advised of proper dosage, how to take the medication properly, precautions, and potential complication of the medication prescribed. Target TSH 0.5-1.5 and <2.0 for her weight and fatigue issues. Ok to taper lantus by 10-20u (10-20%) if she notes nocturnal hypoglycemia while she plans to eat low carb diet - to avoid low BG and reduce weight gain. Patient will continue all other medications Ideally she should resume using CPAP at night to reduce daytime fatigue for her BEN and to quit smoking completely. 2. To eat low fat/controlled carb and healthy diet as well as exercise as tolerated to keep weight down and be able to cut back on insulin dose further. 3. Lab: check lab locally with PCP in 2 mo for TSH, FT4, 25vitamin D, B12 (for her neuropathy and autoimmune Delano's), A1c, and lipid profile (levothyroxine should help reduce cholesterol for marge well). X-ray/Imaging study: Office Thyroid ultrasound for thyroid size and to r/o nodule at [facility] as scheduled tomorrow. 4. RTC: As needed and she can recheck TSH q2-3 mo as needed with PCP during the interim while we titrate her LT4 dose to keep TSH at target of 0.5-1.5 with FT4 at the high normal end for her. We have reviewed our plan outlined above [...] Marta Cabral MD, PhD, FACE, FACP cc: Francy Lowe APRN Addendum: chain of emails with pt AFTER the visit 11/02/19 Yes, we did a therapeutic trial using the smallest dose of LT4 (levothyroxine) or T3 (liothyronine)to see if it helps your symptoms (fatigue, weight gain, hair loss, constipation, dry skin) but it did not help at all and seems to aggravate your mood, so your ongoing symptoms are most likely unrelated to thyroid at all. Conclusion: At the moment there is no need to take any thyroid supplement yet for your Delano's thyroiditis until TSH is out of the range. MD Dr. Miguel MARTINEZ, No disrespect when I write this, but are you doing some kind of guessing game with my health? The first medication you prescribed for me threw me into such a severe depression that I actually thought of killing myself to feel better. This new medication, one dose and my heart is racing and all I want to do is sleep. I can not and will not continue to be ???experimented?? with until you come up with the correct diagnosis for me. I???m doing all the things that I need to do to try and stay healthy. I eat right, I???ve brought my A1C down from 8.4 to 7.2. I need answers to what???s going on with my thyroid and if you???re not the doctor for me then I need a doctor that is actually going to listen and diagnose me properly, NOT over the telephone. Danielle Mills 11/01/19 I see. In that case, we can try low dose T3 (another type of thyroid supplement which is an active short-acting form) which some psychiatrists like to try for depression. FYI-I cannot prescribe anti-depressant for you as it's out of the scope of my practice so either PCP or psychiatrist can do this if T3 supplement still does not help. I will efax the new prescription to your pharmacy to try so you can pick it up if you want to. It supposes to give you energy and not feel too low. Hope you feel better soon. MARTA CABRAL MD ----- Message ----- From:Danielle Mills Sent:11/01/2019 9:08 AM EDT To:MARTA CABRAL MD Subject:RE: Medication Question (not renewal) My PCP sent me to you directly because as she put it, ???this is out of my wheelhouse?? Is depression a normal side effect? What am I supposed to do in the meantime? Just let my thyroid issue get worse? ----- Message ----- From:MARTA CABRAL MD Sent:11/01/2019 9:03 AM EDT To:Danielle Mills Subject:RE: Medication Question (not renewal) Ok not to take the medication if you feel depressed. Sorry to hear that. Hopefully your PCP can help directly soon. Take care. MARTA CABRAL MD ----- Message ----- From:Danielle Mills Sent:10/30/2019 5:00 AM EDT To:MARTA CABRAL MD Subject:RE: Medication Question (not renewal) Does this meditation make you feel worse before it makes you feel better? My depression is worse, I can barely get out of bed, I cry ALL the time. I honestly don???t know how much more I or my can take. I???m needing some reassurance at this point. Thanks Danielle Mills ----- Message ----- From:MARTA CABRAL MD Sent:10/29/2019 6:44 PM EDT To:Danielle Mills Subject:RE: Medication Question (not renewal) Yes, I got the ultrasound results and already told my service secretary to schedule 6 month follow-up so I can ultrasound by myself and show you at next clinic visit directly. Ok to call my service secretary at [phone] next week if you have not heard from them to find the time which will work for both of us. I am not familiar with the clense and typically we would rec the use thyroid supplement to suppressthe nodule growth and keep TSH 0.3-2.0 as your target. It's common to have regenerating nodule or pseudo-nodule in Delano's thyroiditis so it's better for us to see the ultrasound in real-time. MARTA CABRAL MD ----- Message ----- From:Danielle Arnaldo Gene Sent:10/29/2019 11:18 AM EDT To:AMRTA CABRAL MD Subject:RE: Medication Question (not renewal) Good morning, Just a quick question. How does the doctor feel about me doing a cleanse and starting a diet directly based on thyroid function? My chiropractor is also a nutrition therapist. I figured I???d run it by her before I tried anything different. Also, has she gotten the results of my ultrasound? Thanks Danielle Mills documented in this encounter Miscellaneous Notes * Addendum Note - Marta Cabral MD - 10/21/2019 10:30 AM EDTAddended by: MARTA CABRAL on: 11/01/2019 09:52 AM Modules accepted: Orders documented in this encounter Plan of Treatment Not on file documented as of this encounter Visit Diagnoses Diagnosis Delano's thyroiditis Chronic lymphocytic thyroiditis documented in this encounter Care Teams Transport Assistant Relationship Specialty Start Date End Date Francy Lowe APRN PCP - General Family Medicine 10/19/19 02/11/21 documented as of this encounter
--- OUTSIDE RECORDS SUMMARY | 2023-11-25 15:35 | XMS_ITS | Encounter Summary ---
[place] [address] Care Team Providers Care Router Setter Name Role Phone Francy Lowe APRN Primary Care Provider + Reason for Visit * Reason Onset Date Comments Medication Refill 12/09/2019 Encounter Details Date Type Department Care Team (Late st Contact Info) Description 12/09/2019 Refill [place] [phone] Bonnie Guillen RN Type 2 diabetes, controlled, with neuropathy Social [...] Miscellaneous Notes * Telephone Encounter - Bonnie Gordon RN - 12/09/2019 12:27 PM EDT Yes, to take glimiperide 4 mg bid and reduce lantus to half dose. Thanks for the correction. VILLA CABRAL MD documented in this encounter Plan of Treatment Not on file documented as of this encounter Visit Diagnoses Diagnosis Type 2 diabetes, controlled, with neuropathy Type II or unspecified type diabetes mellitus with neurological manifestations, not stated as uncontrolled documented in this encounter Care Teams Router Setter Relationship Specialty Start Date End Date Francy Lowe APRN PCP - General Family Medicine 10/19/19 02/11/21 documented as of this encounter
--- OUTSIDE RECORDS SUMMARY | 2023-11-25 15:35 | XMS_ITS | Encounter Summary ---
Author Organization Formerly [facility], 1928–1983 Address [facility] [place] [address] Care Team Providers Care Java Spring Developer Name Role Phone Steven Jeffries MD Primary Care Provider [phone] Encounter Details Date Type Department Care Team (Latest Contact Info) Description 11/19/2018 11:59 AM EDT - 11/19/2018 2:02 PM EDT Hospital Encounter Gastroenterology at [facility] [place] [address] Nimesh Alicia MD [facility] [place] [address] Discharge Disposition: Home Social History Tobacco Use [...] Sign Reading Time Taken Comments Blood Pressure 132/109 11/19/2018 1:50 PM EDT Pulse 88 11/19/2018 12:25 PM EDT Temperature 36.3 ??C (97.3 ??F) 11/19/2018 1:22 PM ED T Respiratory Rate 18 11/19/2018 1:50 PM EDT Oxygen Saturation 100% 11/19/2018 1:50 PM EDT Inhaled Oxygen Concentration - - Weight 125.6 kg (277 lb) 11/19/2018 12:25 PM EDT Height 165.1 cm (5' 5) 11/19/2018 12:25 PM EDT Body Mass Index 46.1 11/19/2018 12:25 PM EDT documented in this encounter Discharge Instructions * Discharge Instructions* Yaneli Lopez RN - 11/19/2018 1:27 PM EDT UPPER GI ENDOSCOPY WHAT TO EXPECT AFTER THE PROCEDURE After the test you may feel a little more gassy or bloated than usual, this is normal. ACTIVITY Because of the sedation that you received Your judgement and reaction time are affected ?? Go home and rest quietly for the remainder of the day. You may resume your normal activities tomorrow. ?? Change from one position to the next slowly. You may lose your balance unexpectedly Be careful on stairs, as you may be unsteady on your feet. FOR THE NEXT 24 HRS ?? DO NOT DRIVE OR OPERATE ANY MACHINERY ?? DO NOT DRINK ALCOHOLIC BEVERAGES ?? DO NOT SIGN LEGAL DOCUMENTS ?? If you are a smoker: DO NOT SMOKE WHILE YOU ARE ALONE Diet ?? Start by eating small portions of foods that ordinarily will not upset your stomach. Be gentle with what you choose to start with. ?? Drink plenty of fluids ( unless otherwise told not to) Medications You may have a mild sore throat. Ice chips, popsicles, over the counter throat lozenges or spray may help numb your throat. This procedure should not cause a fever. IV SITE-- slight redness or tenderness is normal, you can use warm compresses if you get concerned.If the tenderness +/or redness increases or foul drainage and a red streak occurs, please contact your PCP immediately. WHEN SHOULD YOU CALL FOR HELP? Call 911 anytime you think that you need emergency care. For example, call if: You passed out (lost consciousness). You cough up blood. You vomit blood or what looks like coffee grounds. You pass maroon or very bloody stools. Call your healthcare provider or seek immediate medical attention if: You have trouble swallowing. You have belly pain. Your stools are black or tarlike or have streaks of blood. You are sick to your stomach or cannot keep fluids down. Watch closely for changes in your health, and be sure to contact your doctor IF Your throat still hurts after a day or two You do not get better as expected. Friday-Friday Same Day Endo [phone] 7a-8p Otherwise contact [phone] and ask to speak to the sign letterer environmental studies faculty member Follow-up care is a prasad part of your treatment and safety. Be sure to make and go to all appointments, and call your doctor if you are having problems. Instructions have been reviewed and patient expresses understanding documented in this encounter Medications at Time of Discharge Medication Sig Dispensed Refills Start Date End Date acetaminophen (TYLENOL) 500 mg Tablet Take 1,000 mg by mouth as needed for Pain. amoxicillin (AMOXIL) 500 mg TabletIndications:Le ft knee pain, unspecified chronicity Take 4 tablets by mouth 1 hour prior to procedure 12 tablet 2 03/26/2018 clonazePAM (KLONOPIN) 0.5 mg Tablet Take 0.5 mg by mouth daily. 2 02/26/2018 Ibuprofen 200 mg Capsule Take 800 mg by mouth. 2019 sucralfate (CARAFATE) 100 mg/mL Suspension Take 1 g by mouth 4 times daily. PRN 01/29/2022 TRESIBA FLEXTOUCH U-200 200 unit/mL (3 mL) Insulin Pen Inject 200 Units as directed. 1 10/16/2017 10/20/2019 BD ULTRA-FINE ORIG PEN NEEDLE 29 gauge x 1/2 Needle INJECT INSULIN SUBCUTANEOUSLY DIRECTED. 3 10/17/2017 11/03/2023 omeprazole (PRILOSEC) 20 mg Capsule, Delayed Release(E.C.) Take 20 mg by mouth daily. 5 09/03/2015 10/20/2019 documented as of this encounter H&P Notes * Nimesh Alicia MD - 11/19/2018 12:48 PM EDT Procedure: EGD Indication: Johnson's surveillance History of Present Illness: Danielle Mills is a 58 y.o. woman with Johnson's esophagus here for surveillance Patient Active Problem List Diagnosis Code ??? Neck pain M54.2 ??? Anxiety disorder F41.9 ??? Type 2 diabetes mellitus E11.9 ??? Hiatal hernia K44.9 ??? HLD (hyperlipidemia) E78.5 ??? Insomnia G47.00 ??? Adiposity E66.9 ??? Gastroesophageal reflux disease with hiatal hernia K21.9, K44.9 ??? 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 K22.70 ??? 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 Carpal tunnel syndrome G56.00 ??? Cystocele [id number] ??? Degeneration of intervertebral disc of lumbar region M51.36 ??? Depression F32.9 ??? Dysphagia R13.10 ??? Edema R60.9 ??? Enthesopathy of lower extremity excluding foot M76.9 ??? Frequency of micturition R35.0 ??? Hip pain M25.559 ??? Hypertrophy of breast N62 ??? Knee pain M25.569 ??? Lateral epicondylitis M77.10 ??? Nicotine dependence, uncomplicated F17.200 ??? Onychomycosis of toenail B35.1 ??? Osteoarthritis of hip M16.9 ??? Pain in thoracic spine M54.6 ??? Spinal stenosis of cervical region M48.02 ??? Strain of lumbar region S39.012A ??? Tear of medial meniscus of knee S83.249A ??? Trochanteric bursitis M70.60 ??? Atopic rhinitis J30.9 Medications: Reviewed in EDH Allergies Allergen Reactions ??? Atorvastatin Other (See Comments) ??? Codeine Other (See Comments) ??? Hydrocodone-Acetaminophen Itching ??? Indomethacin Itching ??? Oxycodone-Acetaminophen Itching ??? Prednisone ??? Rosuvastatin Other (See Comments) Social History/Family History: Reviewed in EDH. No changes Exam: Most Recent Vitals: 11/19/18 1225 BP: 113/78 Pulse: 88 Temp: 36.8 ??C (98.2 ??F) SpO2: 96% Axox3, nad Anicteric, MMM CTAB RRR, no m/r/g abd soft nt nd +bs Assessment and Plan: Proceed with EGD: ASA Grade: ASA 2 - Patient with mild systemic disease with no functional limitations Mallampati score:III (soft palate, base of uvula visible) Sedation plan: MAC Risks and benefits of the procedure were discussed with the patient. Consent has been signed. Nimesh Alicia MD documented in this encounter Miscellaneous Notes * Op Note - Nimesh Alicia MD - 11/19/2018 1:32 PM EDT [facility] [place] Patient Name: Danielle Mills : [id number] MR#: [id number] Case Date: 11/19/2018 Surgeon: Surgeon(s) and Role: * Nimesh Alicia MD - Primary Preoperative diagnosis: hx of Johnson's Postoperative diagnosis: * No post-op diagnosis entered * Procedure(s): EGD WITH BIOPSY (WRVU 2.49) Please see Provation report for details. documented in this encounter Plan of Treatment Not on file documented as of this encounter Procedures Procedure Name Priority Date/Time Associated Diagnosis Comments SPECIMEN TO PATHOLOGY Routine 11/19/2018 1:26 PM EDT SPECIMEN TO PATHOLOGY Routine 11/19/2018 1:26 PM EDT SPECIMEN TO PATHOLOGY Routine 11/19/2018 1:26 PM EDT SPECIMEN TO PATHOLOGY Routine 11/19/2018 1:26 PM EDT SURGICAL PATHOLOGY REPORT Routine 11/19/2018 1:14 PM EDT EGD WITH BIOPSY (WRVU 2.39) 11/19/2018 12:58 PM EDT hx of Johnson's UPPER GI ENDOSCOPY Routine 11/19/2018 12 :41 PM EDT POCT GLUCOSE Routine 11/19/2018 12:17 PM EDT documented in this encounter Results * Specimen to Pathology (11/19/2018 1:26 PM EDT) AP Specimen 11/19/2018 1:26 PM EDT 11/19/2018 1:26 PM EDT Narrative [facility] - 11/19/2018 1:26 PM EDT Specimen requisition ordered. ??Separate Pathology report to follow Nimesh Alicia MD PATHOLOGY/CYTOLOGY O MARIANO Performing Organization Address [facility]/[place] [address] * Specimen to Pathology (11/19/2018 1:26 PM EDT) AP Specimen 11/19/2018 1:26 PM EDT 11/19/2018 1:26 PM EDT Narrative [facility] - 11/19/2018 1:26 PM EDT Specimen requisition ordered. ??Separate Pathology report to follow Nimesh Alicia MD PATHOLOGY/CYTOLOGY O MARIANO Performing Organization Address [facility] [place] [place] [address] * Specimen to Pathology (11/19/2018 1:26 PM EDT) AP Specimen 11/19/2018 1:26 PM EDT 11/19/2018 1:26 PM EDT Narrative [facility] - 11/19/2018 1:26 PM EDT Specimen requisition ordered. ??Separate Pathology report to follow Nimesh Alicia MD PATHOLOGY/CYTOLOGY O MARIANO Performing Organization Address [facility]/[place] [address] * Specimen to Pathology (11/19/2018 1:26 PM EDT) AP Specimen 11/19/2018 1:26 PM EDT 11/19/2018 1:26 PM EDT Narrative [facility] - 11/19/2018 1:26 PM EDT Specimen requisition ordered. ??Separate Pathology report to follow Nimesh Alicia MD PATHOLOGY/CYTOLOGY O MARIANO [facility] [place] [address] * Surgical Pathology Report (11/19/2018 1:14 PM EDT) Surgical Pathology Report [id number] ? Location: 4T; EA07; A The signing pathologist has (i) examined the relevant preparation(s) for the specimen(s) and (ii) rendered or confirmed the diagnosis(es). . ?Surgical Pathology DIAGNOSIS A - Duodenum, polypectomy: Duodenal mucosa with lymphangiectasia. B - Gastric antrum, biopsy: Gastric antral gland mucosa with nonspecific reactive gastropathy. No H. pylori-like microorganism is seen. C - Gastric body, biopsy: Gastric fundic gland mucosa with nonspecific parietal cell alterations of the type sometimes seen in hypergastrinemic conditions or in patients on PPI therapy. No H. pylori-like microorganism is seen. D - 39cm esophagus, biopsy: Squamous esophageal and cardiac and fundic gland mucosa within normal limits. No goblet cell metaplasia is seen. Electronically signed by: ??Cleopatra Merrill MD Verified: ??11/20/2018 ?Pathologist Performed at: ??-[facility] 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 Quantity/Size: Two, 0.3 and 0.4 cm. Tissue Description: Slightly firm, wright-pink polyps. Sections/Processing : Submitted en toto ??in 1 cassette labeled A1. B - Labeled/Fixative: Gastric antrum, formalin. Quantity/Size: Three, ranging from 0.2-0.6 cm. Tissue Description: Soft, wright-pink tissues. Sections/Processing : Submitted en toto ??in 1 cassette labeled B1. C - Labeled/Fixative: Gastric body, formalin. Quantity/Size: Multiple, ranging from 0.2-0.4 cm. Tissue Description: Soft, wright-pink tissues. Sections/Processing : Submitted en toto ??in 2 cassettes labeled C1-C2. D - Labeled/Fixative: 39 cm esophagus for Johnson's, formalin. Quantity/Size: Four, ranging from 0.2-0.6 cm. Tissue Description: Soft, wright-pink tissues. Sections/Processing : . SPECIMEN PROCESSING Submitted en toto ??in 1 cassette labeled D1. ??apb [facility] 11/19/2018 1:14 PM EDT Nimesh Alicia MD PATHOLOGY/CYTOLOGY O RDERATRAY [facility] [place] [address] * UPPER GI ENDOSCOPY (11/19/2018 12:41 PM EDT) UPPER GI ENDOSCOPY [facility] ___ Procedure Date: 11/19/2018 12:41 PM ? Patient Name: Danielle Mills ? Date of : 1960 ? Age: 58 ? Order #: [id number] ? Instrument Name: [id number] LOANER ? ___ Procedure: ? Upper GI endoscopy Indications: ? Follow-up of Johnson's esophagus Providers: ? Nimesh Alicia MD, [facility] [place] ? Risa Moses MD: ?Steven Jeffries MD Medicines: ? Propofol per Anesthesia Complications: ? No immediate complications. ___ Procedure: ? Pre-Anesthesia Assessment: ? - Prior to the procedure, a History ? and Physical was performed, and ? patient medications and allergies ? were reviewed. The risks and benefits ? of the [...] cancer, and ? adverse medication reactions. The was ? introduced through the mouth, and ? advanced to the second part of ? duodenum. The patient tolerated the ? procedure well. The patient tolerated ? the procedure well. ? Findings: ? The esophagus and gastroesophageal junction were ? examined with white light and narrow band imaging ? (NBI) from a forward view and retroflexed position. ? There were esophageal mucosal changes suspicious for ? short-segment Johnson's esophagus. These changes ? involved the mucosa at the upper extent of the ? gastric folds (40 cm from the incisors) extending to ? the Z-line (39 cm from the incisors). One tongue of ? salmon-colored mucosa was present from 39 to 40 cm. ? The maximum longitudinal extent of these esophageal ? mucosal changes was 1 cm in length. Mucosa was ? biopsied with a cold forceps for histology. One ? specimen bottle was sent to pathology. ? The entire examined stomach was normal. ? Biopsies were taken with a cold forceps in the ? gastric body and in the gastric antrum for histology. ? A single 4 mm sessile polyp was found in the first ? portion of the duodenum. Biopsies were taken with a ? cold forceps for histology. ? Moderate Sedation: ? Not applicable - See Anesthesia documentation Impression: ?- Esophageal mucosal changes ? suspicious for short-segment ? Johnson's esophagus. Biopsied. ? - Normal stomach. ? - A single duodenal polyp. Biopsied. ? - Non targeted biopsies were taken ? with a cold forceps for histology in ? the gastric body and in the gastric ? antrum to follow up metaplasia. Recommendation: ?- Discharge patient to home. ? - Resume regular diet. ? - Await pathology results. ? - Repeat upper endoscopy in 3 years ? for surveillance pending pathology. ? Attending Participation: ? I personally performed the entire procedure. ? Nimesh Alicia MD 11/19/2018 1:22:38 PM Number of Addenda: 0 Note Initiated On: 11/19/2018 12:41 PM PROVATION 11/19/2018 12:4 1 PM EDT Steven Jeffries MD GENERAL SURGICAL ORD ADOLFO PROVATION * POCT Glucose (11/19/2018 12:17 PM EDT) POC Glucose 90 65 - 199 mg/dL [facility] Comment: Supplemental ranges: <140 mg/dL before meals <180 mg/dL all other times of the day Blood specimen (specimen) 11/19/2018 12:17 PM EDT 11/19/2018 12:17 PM EDT Nimesh Alicia MD POINT OF CARE TEST O RDERABLES Performing Organization Address City/State/[facility] Co de Phone Number [facility] [place] [address] documented in this encounter Visit Diagnoses Not on filedocumented in this encounter Active and Recently Administered Medications Care Teams Java Spring Developer Relationship Specialty Start Date End Date Steven Jeffries MD [address] [place] [id number] PCP - General General Internal Medicine 11/18/1810/17 documented as of this encounter
--- OUTSIDE RECORDS SUMMARY | 2023-11-25 15:35 | XMS_ITS | Encounter Summary ---
Author Organization [facility] Address [facility] [place] [address] Care Team Providers Care Director Of Acquisition Marketing Name Role Phone Steven Jeffries MD Primary Care Provider [phone] Encounter Details Date Type Department Care Team (Late st Contact Info) Description 11/19/2018 12:57 PM EDT Anesthesia [place] [address] Lorenzo Cotto MD [facility] [place] [address] Kayli Ferrera CRNA [facility] [place] [address] Anesthesia Record Procedure Summary Procedure Name Responsible Anesthesiologist Anesthesia Start Time Anesthesia Stop Time EGD WITH BIOPSY (WRVU 2.39) Lorenzo Cotto MD 11/19/18 1257 11/19/18 1326 Events Date Time Event Comment 11/19/2018 1245 1257 AN Verify 1257 Start 1257 An Start Data 1259 An Induction 1301 Anesthesia Ready 1320 an stop data 1326 Recovery or ICU Handoff Della ent care was transferred to the destination unit staff after review of the patient's medical history, current anesthetic/surgical status and plan, according to the Provider Handoff Checklist. 1326 Stop Meds Name Total IV Lidocaine 100 mg Propofol 190 mg Propofol INF 533.8 mg Lactated Ringers 200 mL * Agents No agents on file. * Blood No blood administrations on file. Lines, Drains, and Airways Type Details Placement Removal (RETIRED) Peripheral IV Line - Single Lumen 11/19/18; 1257; metacarpal vein (top of hand), left; [id number] catheter system; 20 gauge; distraction; 11/19/18; 1353 11/19/18 1257 by Kayli Chen RN 11/19/18 1353 by Yaneli Lopez RN documented in this encounter Social History [...] OR Notes * Anesthesia Postprocedure Evaluation - Lorenzo Cotto MD - 11/19/2018 2:38 PM EDT Department of Anesthesiology Post-procedure Note Patient: Danielle Mills Procedure Summary Date: 11/19/18 Room / Location: [facility] 6 / [facility] Anesthesia Start: 1257 Anesthesia Stop: 1326 Procedure: EGD WITH BIOPSY (WRVU 2.49) (N/A ) Diagnosis: (hx of Johnson's) Surgeon: Nimesh Alicia MD Responsible Provider: Lorenzo Cotto MD Anesthesia Type: MAC ASA Status: 2 All Anesthesia Providers: Anesthesiologist: Lorenzo Cotto MD SENIOR LOSS CONTROL SPECIALIST: Michelle Freeman CRNA Student Nurse Tools Programmer: Ryan Paredes Vitals Value Taken Time BP 132/109 11/19/2018 1:50 PM Temp Pulse Resp 18 11/19/2018 1:50 PM SpO2 100 % 11/19/2018 1:52 PM Pain Level 0 11/19/2018 1:50 PM Vitals shown include unvalidated device data. Patient Location: PACU/[facility] Level of Consciousness: Awake and Alert Pain Management: Satisfactory Analgesia PONV: None Cardiovascular Status: At Baseline and Hemodynamically Stable Respiratory Status: At Baseline and Room Air Postoperative Fluid Status: Intravascular EUvolemia Possible Anesthetic Complications: NONE apparent at time of evaluation Final Primary Anesthesia Type: MAC (The anesthetic type performed was the same as planned.) Comments: Lorenzo Cotto MD * Anesthesia Preprocedure Evaluation - Lorenzo Cotto MD - 11/19/2018 11:35 AM EDT Pre-Anesthesia Evaluation for: Danielle Mills a 58 y.o. female. Procedure(s): EGD, UPPER GI ENDOSCOPY Patient Active Problem List Diagnosis ??? Benign lipomatous neoplasm ??? Cystocele ??? Degeneration of intervertebral disc of lumbar region ??? Depression ??? Dysphagia ??? Edema ??? Frequency of micturition ??? Hypertrophy of breast ??? Nicotine dependence, uncomplicated ??? Onychomycosis of toenail ??? Osteoarthritis of hip ??? Pain in thoracic spine ??? Spinal stenosis of cervical region ??? Strain of lumbar region ??? Tear of medial meniscus of knee ??? Trochanteric bursitis ??? Atopic rhinitis ??? Lateral epicondylitis ??? Carpal tunnel syndrome ??? Enthesopathy of lower extremity excluding foot ??? Knee pain ??? Gastroesophageal reflux disease with hiatal hernia ??? 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 ??? Neck pain ??? Anxiety disorder ??? Type 2 diabetes mellitus Diet controlled ??? Hiatal hernia ??? HLD (hyperlipidemia) ??? Insomnia ??? Adiposity ??? Hip pain No past medical history on file. Past Surgical History: Procedure Laterality Date ??? CARPAL TUNNEL RELEASE Bilateral ~2004 Bilateral carpal tunnel release Procedure Date: Unknown ??? CREATED BY INTERFACE Anal fissure repair Procedure Date: 2004 ??? CREATED BY INTERFACE Right Right hip spur Procedure Date: Unknown, Dr. Benitez ??? CREATED BY INTERFACE Right total knee replacement Procedure Date: September 2009 ??? CREATED BY INTERFACE Total abdominal hysterectomy Procedure Date: 1994 ??? ELBOW SURGERY 01/04/2015 Left lateral epi rel ??? KNEE ARTHROPLASTY Right 09/2009 right TKA, srd ??? SHOULDER SURGERY Left 06/05/2017 L shoulder AC joint resection and bicep debridement, Dr. Adrien Pedro Social History Tobacco Use ??? Smoking status: Current Every Day Smoker Packs/day: 1.00 Types: Cigarettes ??? Smokeless tobacco: Never Used Substance Use Topics ??? Alcohol use: Not on file Social History Substance and Sexual Activity Drug Use Not on file Allergies Allergen Reactions ??? Atorvastatin Other (See Comments) ??? Codeine Other (See Comments) ??? Hydrocodone-Acetaminophen Itching ??? Indomethacin Itching ??? Oxycodone-Acetaminophen Itching ??? Prednisone ??? Rosuvastatin Other (See Comments) Medications: MAR and/or home medications have been reviewed. Physical Exam: There were no vitals filed for this visit. There is no height or weight on file to calculate BMI. Airway Assessment: Mallampati: II TM distance: >3 FB Neck ROM: full Cardiovascular Assessment: Pulmonary Assessment: Dental Assessment: Misc Assessment: Anesthesia Plan: ASA 2 MAC, with a(n) intravenous induction Attending Assessment: Patient personally seen and examined. 58yo F active smoker, presenting for EGD for h/o Johnson's. No active GERD or nausea in preop. PMH notable for: T2DM, GERD, HL, s/p R TKA, cervical spinal stenosis No cardiac problems. No recent URI. Well-controlled GERD on PPI (asymptomatic in preop). No problems with anesthesia in the past. Meds: reviewed EKG: none indicated NPO status adequate Plan: - standard ASA monitors, PIV - MAC, with GA as backup The patient was informed of the risks, benefits and alternatives of anesthesia. These risks included, but were not limited to, post-operative nausea and/or vomiting, pain, sore throat, dental/lip injury, and other rare but serious complications such as cardiac instability/arrest, neurologic event, awareness, severe allergic reactions, position-related nerve injuries, and need blood transfusions. All questions sought and answered. Consent was signed and placed in chart. Lorenzo Cotto MD 11/19/2018 Region - Other Informed Consent: Anesthetic plan and risks discussed with patient. Plan discussed with SENIOR LOSS CONTROL SPECIALIST. PAT Clinic Note documented in this encounter Plan of Treatment Not on file documented as of this encounter Visit Diagnoses Not on filedocumented in this encounter Administered Medications Inactive Administered Medications - up to 3 most recent administrations Medication Order MAR Action Action Date Dose Rate Site lactated ringers infusion CONTINUOUS PRN, Starting on Ayde 11/19/18 at 1257, Until Ayde 11/19/18 at 1326, Anesthesia Intra-op New Bag 11/19/2018 12:57 PM EDT lidocaine (PF) (XYLOCAINE) 100 mg/5 mL (2 %) injection PRN, Starting on Ayde 11/19/18 at 1259, Until Ayde 11/19/18 at 1326, Anesthesia Intra-op, Routine Given 11/19/2018 12:59 PM EDT 100 mg propofol (DIPRIVAN) 10 mg/mL bolus injection (Anesthesia) PRN, Starting on Ayde 11/19/18 at 1259, Until Ayde 11/19/18 at 1326, Anesthesia Intra-op Given 11/19/2018 1:10 PM EDT 50 mg Given 11/19/2018 1:06 PM EDT 50 mg Given 11/19/2018 1:02 PM EDT 20 mg propofol (DIPRIVAN) infusion CONTINUOUS PRN, Starting on Ayde 11/19/18 at 1259, Until Ayde 11/19/18 at 1326, Anesthesia Intra-op, Routine Rate/Dose Change 11/19/2018 1:09 PM EDT 250 mcg/kg/min 188.4 mL/hr New Bag 11/19/2018 12:59 PM EDT 200 mcg/kg/min 150.7 mL /hr documented in this encounter Care Teams Director Of Acquisition Marketing Relationship Specialty Start Date End Date Steven Jeffries MD [address] [place] [id number] PCP - General General Internal Medicine 11/18/1810/17 documented as of this encounter
--- OUTSIDE RECORDS SUMMARY | 2023-11-25 15:35 | XMS_ITS | Encounter Summary ---
[place] [address] Care Team Providers Care Yoke Setter Name Role Phone Radha Fry MD Primary Care Provider [phone] Encounter Details Date Type Department Care Team (Late st Contact Info) Description 11/28/2014 11:10 AM EDT Office Visit Orthopaedics at [address] [address] Elvin Whiting MD [address] [place] [id number] Social History Tobacco Use Types Packs/Day Years [...] on filedocumented in this encounter Care Teams Yoke Setter Relationship Specialty Start Date End Date Radha Fry MD PCP - General 07/22/11 11/17/18 documented as of this encounter
--- OUTSIDE RECORDS SUMMARY | 2023-11-25 15:35 | XMS_ITS | Encounter Summary ---
Author Organization [facility] [address] Care Team Providers Care Director Packaging Name Role Phone Radha Fry MD Primary Care Provider [phone] Encounter Details Date Type Department Care Team (Late st Contact Info) Description 04/06/2013 9:25 AM EST Office Visit MR at [address] [address] Social History Tobacco Use Types Packs/Day Years Used Date Smoking Tobacco: Never Assessed Sex and Gender Information Value Date Recorded Sex Assigned at Not on file Gender Identity Female 02/07/2020 7:29 AM EDT Sexual Orientation Not on file documented as of this encounter Miscellaneous Notes * Miscellaneous - Provider, Scanning - 04/07/2013 10:47 AM EST documented in this encounter Plan of Treatment Not on file documented as of this encounter Procedures Procedure Name Priority Date/Time Associated Diagnosis Comments MRI KNEE WO CONTRAST Routine 04/06/2013 10:00 AM EST documented in this encounter Results * MRI knee WO contrast (04/06/2013 10:00 AM EST) Anatomical Region Laterality Modality Knee Magnetic Resonan ce 04/06/2013 10:0 0 AM EST Narrative 04/06/2013 4:15 PM EST Examination MR Knee Without CONTRAST/LEFT Clinical History DX: LEFT KNEE PAIN Comparison None Technique ? 1. Sagittal and coronal proton density images. ? 2. Sagittal and coronal T2 weighted images with fat saturation. ? 3. Axial proton density images with fat saturation. Findings There are osteoarthritic changes present of a mild degree in the lateral and patellofemoral joint compartments with irregularity of the articular cartilage and degenerative spur formation. ??There is evidence of 2 small intraarticular loose bodies seen superior to the posterior cruciate ligament measuring approximately 6 mm each in the posterior intercondylar notch. ??The donor site of these is not clear from this study. ??The menisci are intact as are the cruciate ligaments and collateral ligaments. 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 No other abnormalities are seen. Impression ? 1. Osteoarthritic changes as described above in the lateral and patellofemoral joint compartments. ? 2. Intraarticular loose bodies in the intercondylar notch, dorsal to the posterior cruciate ligament. ? 3. ??Pichardo cyst as described above. Procedure Note Parviz Zambrano MD - 04/06/2013 Examination MR Knee Without CONTRAST/LEFT Clinical History DX: LEFT KNEE PAIN Comparison None Technique 1. Sagittal and coronal proton density images. 2. Sagittal and coronal T2 weighted images with fat saturation. 3. Axial proton density images with fat saturation. Findings There are osteoarthritic changes present of a mild degree in the lateraland patellofemoral joint compartments with irregularity of the articularcartilage and degenerative spur formation. There is evidence of 2 smallintraarticular loose bodies seen superior to the posterior cruciate ligament measuring approximately 6 mm each in the posterior intercondylar notch. The donorsite of these is not clear from this study. The menisci are intact as are the cruciate ligaments and collateral ligaments. 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 No other abnormalities are seen. Impression 1. Osteoarthritic changes as described above in the lateral and patellofemoral joint compartments. 2. Intraarticular loose bodies in the intercondylar notch, dorsal tothe posterior cruciate ligament. 3. Pichardo cyst as described above. Elvin Whiting MD IMG MRI ORDERABLES documented in this encounter Visit Diagnoses Not on filedocumented in this encounter Care Teams Director Packaging Relationship Specialty Start Date End Date Radha Fry MD PCP - General 07/22/11 11/17/18 documented as of this encounter
--- OUTSIDE RECORDS SUMMARY | 2023-11-25 15:35 | XMS_ITS | Encounter Summary ---
[place] [address] Care Team Providers Care Bioinformatics Research Technician Name Role Phone Radha Fry MD Primary Care Provider [phone] Encounter Details Date Type Department Care Team (Late st Contact Info) Description 08/07/2012 10:40 AM EDT Office Visit [facility] [address] [place] [address] Elvin Whiting MD [address] [place] [address] Social History Tobacco Use Types Packs/Day Years [...] on filedocumented in this encounter Care Teams Bioinformatics Research Technician Relationship Specialty Start Date End Date Radha Fry MD PCP - General 07/22/11 11/17/18 documented as of this encounter
--- OUTSIDE RECORDS SUMMARY | 2023-11-25 15:35 | XMS_ITS | Encounter Summary ---
Author Organization [facility] [place] [address] Care Team Providers Care Director Prospect Name Role Phone Radha Fry MD Primary Care Provider [phone] Reason for Visit * Reason Comments Left Knee Pain * High Dollar Medication (Urgent) - Closed Specialty Diagnoses / Procedures Referred By Contac t Referred To Contact Orthopaedics Diagnoses left knee osteoarthrtitis Procedures TC SYNVISC/SYNVISC-ONE, 1MG, INTRA-ARTICULAR INJECTION Left knee Synvsic One [facility] [address] [place] [phone] Referral ID Status Reason Start Date Expiration Date V isits Requested Visits Authorized [id number] Closed Evaluate and Treat 03/19/2018 03/19/2019 1 1 Encounter Details Date Type Department Care Team ([facility] st Contact Info) Description 03/26/2018 1:30 PM EST Office Visit Orthopaedics at [address] [address] Elvin Whiting MD [address] [place] [phone] Primary osteoarthritis of left knee; Left knee pain, unspecified chronicity Social History Tobacco Use Types Packs/Day Years Used Date Smoking Tobacco: Every Day Cigarettes Smokeless Tobacco: Never Sex and Gender Information Value Date Recorded Sex Assigned at Not on file Gender Identity Female 02/07/2020 7:29 AM EDT Sexual Orientation Not on file documented as of this encounter Patient Instructions * Patient Instructions* Pinky Walters 03/26/2018 1:30 PM EST FOLLOW UP NEEDED, SYNVISC ONE INJECTION LEFT KNEE documented in this encounter Progress Notes * Elvin Whiting MD - 03/26/2018 1:30 PM EST I am documenting this encounter acting as the scribe for and in the presence of Scott. Johanne MD.KIMBERLY ROBLEDO, RN Danielle is here today for a Synvisc One injection into the left knee. She complains of continued knee pain and has failed conservative treatment such as ice, rest, elevation, and compression. Diagnosis:??Left knee osteoarthritis Premixed ampule of Synvisc One injected into the left knee lateral joint space after discussion of risks and complications and sterile preparation of the skin with alcohol.?? A band-aid was applied. Post injection instructions were given.?? I will see her back on an as needed basis. I performed the services which were documented by the scribe, and I agree with the accuracy of the documentation in this encounter. Elvin Whiting MD documented in this encounter Plan of Treatment Not on file documented as of this encounter Visit Diagnoses Diagnosis Primary osteoarthritis of left knee Primary localized osteoarthrosis, lower leg Left knee pain, unspecified chronicity documented in this encounter Administered Medications Inactive Administered Medications - up to 3 most recent administrations Medication Order MAR Action Action Date Dose Rate Site hyaluronate (HYLAN,SYNVISC) injection 48 mg 48 mg (rounded from 46 mg), Intra-articular, ONCE, 1 dose, On Ayde 03/26/18 at 1400, Routine Given 03/26/2018 1:36 PM EST 48 mg documented in this encounter Care Teams Director Prospect Relationship Specialty Start Date End Date Radha Fry MD PCP - General 07/22/11 11/17/18 documented as of this encounter
--- OUTSIDE RECORDS SUMMARY | 2023-11-25 15:35 | XMS_ITS | Encounter Summary ---
[place] [address] Care Team Providers Care Chemical Test Engineer Name Role Phone Radha Fry MD Primary Care Provider [phone] Reason for Visit * Reason Comments Right Knee Pain s/p R TKA September 2009 b y srd Encounter Details Date Type Department Care Team ([facility] st Contact Info) Description 09/15/2015 3:20 PM EDT Office Visit Orthopaedics at [address] [phone] Elvin Whiting MD [address] [place] [phone] Primary osteoarthritis of right knee (Primary Dx) Social History Tobacco Use Types Packs/Day Years Used Date Smoking Tobacco: Every Day Cigarettes Tobacco Cessation:Counseling Given: Yes Sex and Gender Information Value Date Recorded Sex Assigned at Not on file Gender Identity Female 02/07/2020 7:29 AM EDT Sexual Orientation Not on file documented as of this encounter Patient Instructions * Patient Instructions* Pinky Walters - 09/15/2015 4:18 PM EDT INJECTION TO RIGHT KNEE FOLLOW UP NEEDED documented in this encounter Progress Notes * Elvin Whiting MD - 09/25/2015 9:25 PM EDT Chief complaint of right knee pain status post total knee replacement in September of 2009. Recent aggravation of her symptoms over the past 2 weeks. She is going to be moving up to [place]. Wanted to check in to see me before she left. She has had increased pain. Denies any swelling. Denies any fevers, chills. No trauma, injury, or other associated symptoms. No systemic complaints. Reports pain and tenderness within the right knee, limitations in range of motion, some discomfort going up and down stairs. She has had no recent changes in her past medical history. No recent hospitalizations, surgeries, or infections. On exam, a well-developed, well-nourished female 55 years of age, elevated BMI. Pain and tenderness within the right knee. Limitations in range of motion. Pain with palpation. No signs of crepitus. Excellent overall stability. Appears to be neurovascularly intact. No effusion, no warmth, no redness, no lymphadenopathy noted. X-rays show well-applied total knee replacement with no signs of loosening or irregularity. ASSESSMENT: Synovitis status post total knee replacement. PLAN: Injection to the knee. We will see how this does to help reduce symptoms. Hopefully it calms it down enough that she is back towards her normal self and should require her to have an [id number] followup with me for consideration of x-rays and reevaluation. Procedure: Pre-injection discussion of risks and benefits. Sterile preparation of the skin with alcohol, injection of 2 cc of Celestone, 8 cc of 1% lidocaine into the right knee. A Band-Aid was applied. Post injection instructions were given. No complications were noted. cc: Dr. Radha Fry documented in this encounter Plan of Treatment Not on file documented as of this encounter Results * XR Knee 3 Views - Right (09/15/2015 3:54 PM EDT) Anatomical Region Laterality Modality Knee Right Computed Radiogr aphy Impressions 09/15/2015 5:03 PM EDT IMPRESSION: Status post total right knee arthroplasty with near normal anatomic positioning. Narrative 09/15/2015 5:03 PM EDT EXAMINATION: XR KNEE 3 VIEWS RIGHT CLINICAL HISTORY: s/p Right TKA TECHNIQUE: Weight-bearing AP and sunrise views were obtained of each knee supplemented with a lateral view of the right. COMPARISON: None FINDINGS: Images from present study fail to demonstrate fracture or subluxation on the right. The patient has undergone total right knee arthroplasty. Prosthetic components appear well seated. Anatomic alignment is near normal. There are degenerative changes of the left knee with narrowing of medial and patellofemoral joint spaces as well as marginal osteophyte formation. Bones are at least minimally demineralized. No abnormal soft tissue densities or joint effusion are identified on the right. Procedure Note Charlie Dunn, DO - 09/15/2015 EXAMINATION: XR KNEE 3 VIEWS RIGHT CLINICAL HISTORY: s/p Right TKA TECHNIQUE: Weight-bearing AP and sunrise views were obtained of eachknee supplemented with a lateral view of the right. COMPARISON: None FINDINGS: Images from present study fail to demonstrate fracture or subluxation onthe right. The patient has undergone total right knee arthroplasty.Prosthetic components appear well seated. Anatomic alignment is near normal. There are degenerative changes of the left knee with narrowing of medialand patellofemoral joint spaces as well as marginal osteophyte formation.Bones are at least minimally demineralized. No abnormal soft tissue densities or joint effusion are identified on theright. IMPRESSION IMPRESSION: Status post total right knee arthroplasty with near normal anatomicpositioning. Elvin Whiting MD IMG DX ORDERABLES documented in this encounter Visit Diagnoses Diagnosis Primary osteoarthritis of right knee- Primary Primary localized osteoarthrosis, lower leg documented in this encounter Care Teams Chemical Test Engineer Relationship Specialty Start Date End Date Radha Fry MD PCP - General 07/22/11 11/17/18 documented as of this encounter
--- OUTSIDE RECORDS SUMMARY | 2023-11-25 15:35 | XMS_ITS | Encounter Summary ---
[place] [address] Care Team Providers Care Registered Nurse Maternal Child Name Role Phone Radha Fry MD Primary Care Provider [phone] Encounter Details Date Type Department Care Team (Late st Contact Info) Description 04/14/2015 Abstract [facility] [address] [place] [address] Provider, His Deven MD None Social History Tobacco Use Types Packs/Day Years Used Date Smoking Tobacco: Never Assessed Sex and Gender Information Value Date Recorded Sex Assigned at Not on file Gender Identity Female 02/07/2020 7:29 AM EDT Sexual Orientation Not on file documented as of this encounter Last Filed Vital Signs Vital Sign Reading Time Taken Comments Blood Pressure 124/78 08/23/2014 11:04 AM EDT Pulse - - Temperature - - Respiratory Rate - - Oxygen Saturation - - Inhaled Oxygen Concentration - - Weight 111.1 kg (245 lb) 08/23/2014 11:04 AM EDT Height 166.4 cm (5' 5.5) 08/23/2014 11:04 AM ED T Body Mass Index 40.15 08/23/2014 11:04 AM EDT documented in this encounter Plan of Treatment Not on file documented as of this encounter Visit Diagnoses Not on filedocumented in this encounter Care Teams Registered Nurse Maternal Child Relationship Specialty Start Date End Date Radha Fry MD PCP - General 07/22/11 11/17/18 documented as of this encounter
--- OUTSIDE RECORDS SUMMARY | 2023-11-25 15:35 | XMS_ITS | Encounter Summary ---
Author Organization [facility] [place] [address] Care Team Providers Care Classified Ad Taker Name Role Phone Francy Lowe APRN Primary Care Provider + Encounter Details Date Type Department Care Team (Late st Contact Info) Description 12/06/2019 11:00 AM EDT Office [place] [phone] Marta Cabral MD [facility] [address] [place] [address] Delano's thyroiditis; Vitamin D deficiency; Controlled type 2 diabetes mellitus with diabetic nephropathy, with long-term current use of insulin; Type 2 diabetes, controlled, with neuropathy; 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, Tg 63 with normal TSH 1.75-2.25) Social History Tobacco Use Types Packs/Day Years [...] Sign Reading Time Taken Comments Blood Pressure 132/83 12/06/2019 10:28 AM EDT Pulse 91 12/06/2019 10:28 AM EDT Temperature 37 ??C (98.6 ??F) 12/06/2019 10:28 AM EDT Respiratory Rate - - Oxygen Saturation 97% 12/06/2019 10:28 AM EDT Inhaled Oxygen Concentration - - Weight 119.7 kg (264 lb) 12/06/2019 10:28 AM EDT Height - - Body Mass Index 43.93 10/08/2019 10:19 AM EDT documented in this encounter Progress Notes * Marta Cabral MD - 12/06/2019 11:00 AM EDT Images from the original note were not included. Endocrinology Follow-up Note Date of Visit: 12/06/2019 Patient: Name: Danielle Mills : 1960 PCP: Francy Lowe APRN Danielle Mills was seen in the Endocrine clinic in person for: Autoimmune Delano's thyroiditiswith thyroid nodule and several non-specific hypothyroid symptoms. She also raised concern on diabetes and weight issues with goal to cut back on insulin and weight down. She is worried about her recently discovered thyroid nodule so we will check office US today +/- FNA. HISTORY OF PRESENT ILLNESS: Patient is a very pleasant 59 y.o. female who initially presented to us on 10/21/19 for evaluation of autoimmune Delano's thyroiditis with rising TPO Ab from 182 in May to 324 in early October 2019 and normal TSH 1.75-2.25 in euthyroid. However, she is having all hypothyroid symptoms as shown below.She already tried to eat healthier but unable to lose weight. She feels very fatigue all the time with dry skin and lots more scalp hair loss and depressed mood. So we tried a small dose of levothyroxine but it caused her to feel very depressed, so we switched to low dose cytomel 5 mcg qd instead since 11/01/19. Her noted improvement and she feels less sleepy without constipation now. She also has T2DM with good control [...] and occasional difficulty swallowing. Thyroid US at [facility] on 10/22/19 showed a Rt thyroid nodule of 1.1 cm and the others were < 1 cm with rec to FU in 6 mo. Since she has underlying Delano's thyroiditis we will need to r/o psuedonodule and to look at the US images realtime to see if it's colloid or calcification, etc. We therefore planned to do office US for nodule characteristics and see if it needs FNA at the visit today. Recent labs: 06/03/19 10/13/19 TSH 2.25 1.75 FT4 0.96 0.96 still borderline low FT3 3.3 4.4 (nl 2.8-5.3) TPO Ab 182H 324H Tg AB 63H 61H Fatigue - Yes, a bit better Weight gain - Yes => better & lost 10 lbs from 274 to 264 lbs over 6 weeks which is excellent Intolerance to cold - [...] no Hoarseness or voice change - No eDH communications during the interim before the visit: 11/01/19 I see. In that case, we [...] the ultrasound results and already told my bilingual secretary to schedule 6 month follow-up so I can ultrasound by myself and show you at next clinic visit directly. Ok to call my bilingual secretary at [phone] next week if you have not heard [...] CABRAL MD ----- Message ----- From:Danielle Mills Sent:10/29/2019 11:18 AM EDT To:MARTA CABRAL MD Subject:RE: Medication Question (not renewal) Good morning, Just a quick question. How does the doctor feel about me doing a cleanse and starting a diet directly based on thyroid function? My chiropractor is also a nutritional services host. I figured I???d run it by her before I tried anything different. Also, has she gotten the results of my ultrasound? Thanks Danielle Mills REVIEW OF SYSTEMS: as per HPI, all other systems reviewed and negative PAST MEDICAL HISTORY Patient Active Problem List Diagnosis Code ??? Type 2 diabetes mellitus E11.9 ??? HLD (hyperlipidemia) E78.5 ??? Gastroesophageal reflux disease with hiatal hernia K21.9, K44.9 ??? 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 Carpal tunnel syndrome G56.00 ??? Cystocele [id number] ??? Depression, anxiety, insomnia, PTSD F32.9 ??? [...] to Visit Medication Sig Dispense Refill ??? liothyronine (Cytomel) 5 mcg Tablet Take 1 tablet by mouth daily. 90 tablet 3 ??? Lantus U-100 Insulin Solution ??? estradiol (ESTRACE) 0.01 % (0.1 mg/gram) Cream Place 2 g vaginally twice a week. 42.5 g 12 ??? acetaminophen (TYLENOL) 500 mg Tablet Take 1,000 mg by mouth every 6 hours as needed for Pain. ??? amoxicillin (AMOXIL) [...] 1 CAPSULE BY MOUTH TWICE DAILY ??? Ibuprofen 200 mg Capsule Take 800 mg by mouth. ??? sucralfate (CARAFATE) 100 mg/mL Suspension Take 1 g by mouth 4 times daily. No current facility-administered medications on [...] file Gets together: Not on file Attends rastafarian service: Not on file Active member of [...] Family History +DM2, thyroid PHYSICAL EXAM: BP 132/83 Pulse 91 Temp 37 ??C (98.6 ??F) (Temporal) Wt 119.7 kg (264 lb) SpO2 97% BMI 43.93 kg/m?? Appearance: Patient is very pleasant white [...] No proximal muscle weakness. Thyroid US at [facility] Radiology (10/22/19) before taking thyroid Rx showed a Rt thyroid nodule of 1.1 cmand the others were < 1 cm with rec to FU in 6 mo. Office Thyrid Ultrasound: 12/06/2019 (~6 weeks after taking liothyronine supplement) Indication: Rt thyroid nodule and Delano's thyroiditis - to assess nodule characteristic & may need FNA biopsy if suspicious. Comparison: 10/22/19 US from outside at [facility]. Procedure: Real-time ultrasonography limited to the thyroid gland and lateral neck area with and without color doppler were obtained using a V[employer]osa Flex Focus 400 US machine and an [...] size 1.5-2.0 cm in the future. Marta Cabral MD, PhD, FACE, FACP Recent Results (from the past 24 hour(s)) TSH Result Value Ref Range TSH 1.75 0.27 - 4.20 mcIU/mL Vitamin B12 Result Value Ref Range Vitamin B-12 617 232 - 1,245 pg/mL T4, free Result Value Ref Range Free T4 0.80 (L) 0.93 - 1.70 ng/dL *Sent comments to pt after the visit: Ideally she needs to take a low dose levothyroxine (T4) 12.5-25 mcg/day too to keep FT4 up otherwise it is slightly low while she is taking only Liothyronine (T3) 5 mcg daily which is ok to continue the same dose for now. B12 is good and still waiting for vitDresult DIAGNOSIS: 59 y.o. lady with confirmed Delano's thyroiditis with elevated TPO (182-324) and Tg antibodies (61-63) twice, so there is no need to follow the antibody titers any more as they are only used for the diagnosis which is now definite. She has had normal TSH 1.75-2.25 in euthyroid but borderline lowFT4 at 0.96 x2 and now low at 0.8 [...] weight down. She tried to eat healthy but unable to lose weight while using high dose insulin (lantus 86-100u daily) for her T2DM. Overall she has good BG control and A1c down from 8.2 to 7.1% in October 2019 but also had some nocturnal hypoglycemia down to 50s when she started eating low carb and low gluten diet.So we'd rec reducing lantus by 10-20% which is 10-20u for her if she has low BG<80 while fasting. Target is to keep fasting BG 80-140 range without low to avoid wt gain. She could not tolerate metformin, GLP-1 (byetta or victoza), SGLT2 (Jardiance) but has not tried glimiperide yet so she is willing to take it to see if she can cut back on insulin need. Since victoza is also FDA-approved for wt loss medication and she previously had side effects of nausea, it's worth trying at a lowered doseand titrate very gradually to be able to lose wt and cut back on insulin use. We discussed the benefit and how to deal with side effects by the gradual titration so her body can handle victoza pen. She also has untreated BEN (unable to [...] no need for FNA biopsy at present. PLAN: 1. Medication: Patient will start taking levothyroxine 6.25-12.5 mcg daily (0.5 or 0.25 tablet of the 25 mcg pills) as tolerated and continue taking liothyronine 5 mcg daily. She is allowed to stop levothyroxine if she notes intolerable side effects and simply cont with only T3 low dose 5 mcg daily further. *Previously, LT4 made her feel very depressed while T3 (the active short-acting form) seems to helpwith some of her psych symptoms & depression. [...] her weight and fatigue issues. Ok to resume low dose victoza pen 0.6 mg sc daily for 1-2 weeks until she feels better from nausea before she gradually increased the dose to 1.2mg and then 1.8 mg sc daily as the final dose for her T2DM and obesity. Also start taking glimiperide 4 mg 2x/day to reduce the insulin need. To hole if NPO or low BG<80. To taper lantus by half dose when she starts taking glimiperide and low dose victoza and allow her to titrate by 10-20u (10-20%) to keep BG 80-150 range without nocturnal hypoglycemia while eat ing low carb low gluten diet. She knows to reduce insulin to avoid low BG and help reduce her weight. Patient will continue all other medications Ideally she should resume using CPAP at night to reduce daytime fatigue for her BEN and to quit smoking completely. 2. To eat low fat/controlled carb and healthy diet as well as exercise as tolerated to keep weight down and be able to cut back on insulin dose further. 3. Lab: already checked lab today as above and to recheck lab locally with PCP in 6-8 weeks for TSH, A1c, and lipid profile (levothyroxine should help reduce cholesterol for her as well). X-ray/Imaging study: Office Thyroid ultrasound for thyroid nodule size after a year at our office by the same crawler crane operator. 4. RTC: 3 mo to assess the effect of thyroid and DM medications and make sure that she can lose wt and cut back on insulin use further. We have reviewed our plan outlined above with the patient, and patient verbalized understanding. All questions were answered and most of the time 60 mins was spent on counseling about thyroid [...] Type Priority Associated Diagnoses Orde r Schedule TSH Lab Routine Delano's thyroiditis Vitamin D deficiency Expected: 12/06/2019 (Approximate), Expires: 06/06/2020 documented as of this encounter Procedures Procedure Name Priority Date/Time Associated Diagnosis Comments HC VITAMIN D TOTAL-25 HYDROXY Routine 12/06/2019 12:06 PM EDT Delano's thyroiditis Vitamin D deficiency HC THYROID STIMULATING HORMONE, SERUM STAT 12/06/2019 12:06 PM EDT 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, Tg 63 with normal TSH 1.75-2.25) HC FREE THYROXINE (T4) Routine 12/06/2019 12:06 PM EDT Delano's thyroiditis HC VENIPUNCTURE Routine 12/06/2019 12:06 PM EDT Delano's thyroiditis Vitamin D deficiency documented in this encounter Results * (ABNORMAL) T4, free (12/06/2019 12:06 PM EDT) Free T4 0.80(L) 0.93 - 1.70 ng/dL [facility] Blood specimen (specimen) 12/06/2019 12:06 PM EDT 12/06/2019 12:23 PM EDT Narrative Resulting Agency Comment Spec In Lab Marta Cabral MD CHEMISTRY ORDERAB LES [facility] [place] [address] * TSH (12/06/2019 12:06 PM EDT) [facility] TSH 1.75 0.27 - 4.20 mcIU/mL [facility] Blood specimen (specimen) 12/06/2019 12:06 PM EDT 12/06/2019 12:23 PM EDT Narrative Resulting Agency Comment Spec In Lab Marta Cabral MD CHEMISTRY ORDERAB LES Performing Organization Address City/[facility]/ZIP Co de Phone Number [facility] [place] [address] * Vitamin B12 (12/06/2019 12:06 PM EDT) [facility] Vitamin B-12 617 232 - 1,245 pg/mL [facility] Blood specimen (specimen) 12/06/2019 12:06 PM EDT 12/06/2019 12:23 PM EDT Narrative Resulting Agency Comment Spec In Lab Marta Cabral MD CHEMISTRY ORDERAB LES Performing Organization Address City/[facility]/ZIP Co de Phone Number [facility] [place] [address] * Vitamin D, 25-Hydroxy (12/06/2019 12:06 PM EDT) [facility] 25-OH Vit D Total 29 21 - 100 ng/mL [facility] Comment: Please note, effective September 15, 2019, additional result field for Vitamin D Interpretation, and updated flagging notification. 25-OH Vit D Interp Insufficient [facility] Blood specimen (specimen) 12/06/2019 12:06 PM EDT 12/06/2019 12:23 PM EDT Narrative Resulting Agency Comment Spec In Lab Marta Cabral MD CHEMISTRY ORDERAB LES Performing Organization Address City/State/[facility] Co de Phone Number [facility] [place] [address] documented in this encounter Visit Diagnoses Diagnosis 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, Tg 63 with normal TSH 1.75-2.25) Chronic lymphocytic thyroiditis Vitamin D deficiency Unspecified vitamin D deficiency Controlled type 2 diabetes mellitus with diabetic nephropathy, 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
--- OUTSIDE RECORDS SUMMARY | 2023-11-25 15:35 | XMS_ITS | Encounter Summary ---
[place] [address] Care Team Providers Care Development Intern Name Role Phone Radha Fry MD Primary Care Provider [phone] Encounter Details Date Type Department Care Team (Late st Contact Info) Description 10/31/2011 11:00 AM EDT Office Visit [facility] [address] [place] [address] Elvin Whiting MD [address] [place] [address] Social History Tobacco Use Types Packs/Day Years [...] on filedocumented in this encounter Care Teams Development Intern Relationship Specialty Start Date End Date Radha Fry MD PCP - General 07/22/11 11/17/18 documented as of this encounter
--- OUTSIDE RECORDS SUMMARY | 2023-11-25 15:35 | XMS_ITS | Encounter Summary ---
Author Organization [facility] Address [facility] [place] [address] Care Team Providers Care Concrete Block Mason Name Role Phone Francy Lowe APRN Primary Care Provider + Encounter Details Date Type Department Care Team (Late st Contact Info) Description 02/07/2020 External [place] [phone] Social History Tobacco Use Types Packs/Day Years [...] Procedure Name Priority Date/Time Associated Diagnosis Comments ECG SCAN Routine 02/07/2020 ECG SCAN Routine 02/07/2020 documented in this encounter Results * Scan Doc: ECG (02/07/2020) Historical Provider MD MEDIA MGR SCAN EX T ORDR/RSLT * Scan Doc: ECG (02/07/2020) Historical Provider MD MEDIA MGR SCAN EX T ORDR/RSLT documented in this encounter Visit Diagnoses Not on filedocumented in this encounter Care Teams Concrete Block Mason Relationship Specialty Start Date End Date Francy Lowe, [place] PCP - General Family Medicine 10/19/19 02/11/21 documented as of this encounter
--- OUTSIDE RECORDS SUMMARY | 2023-11-25 15:35 | XMS_ITS | Encounter Summary ---
Author Organization [facility] [place] [address] Care Team Providers Care Silverware Buffing Machine Operator Name Role Phone Steven Jeffries MD Primary Care Provider [phone] Encounter Details Date Type Department Care Team (Late st Contact Info) Description 08/13/2019 Telephone [place] [phone] Lisa Reza Social History Tobacco Use Types Packs/Day Years [...] encounter Miscellaneous Notes * Telephone Encounter - Lisa Reza - 08/13/2019 2:06 PM EDT Message left with mother in law for patient to call back and change her 08/22 appt 2nd attempt documented in this encounter Plan of Treatment Not on file documented as of this encounter Visit Diagnoses Not on filedocumented in this encounter Care Teams Silverware Buffing Machine Operator Relationship Specialty Start Date End Date Steven Jeffries MD [address] [place] [facility], [place] [id number] PCP - General General Internal Medicine 11/18/1810/17 documented as of this encounter
--- OUTSIDE RECORDS SUMMARY | 2023-11-25 15:35 | XMS_ITS | Encounter Summary ---
[place] [address] Care Team Providers Care Proposal Manager Name Role Phone Radha Fry MD Primary Care Provider [phone] Encounter Details Date Type Department Care Team (Late st Contact Info) Description 12/06/2014 1:50 PM EDT Office Visit Orthopaedics at [address] [address] Elvin Whiting MD [address] [place] [address] Social History Tobacco Use Types Packs/Day Years [...] on filedocumented in this encounter Care Teams Proposal Manager Relationship Specialty Start Date End Date Radha Fry MD PCP - General 07/22/11 11/17/18 documented as of this encounter
--- OUTSIDE RECORDS SUMMARY | 2023-11-25 15:35 | XMS_ITS | Encounter Summary ---
Author Organization [facility] [place] [address] Care Team Providers Care Sales And Marketing Analyst Name Role Phone Steven Jeffries MD Primary Care Provider [phone] Encounter Details Date Type Department Care Team (Late st Contact Info) Description 08/13/2019 Telephone [place] [phone] Lisa Reza Social History Tobacco Use Types [...] Telephone Encounter - Lisa Reza - 08/13/2019 8:59 AM EDT Lvm - need to change upcoming GI Clinic aptyao call to review options (Telehealth/Phone) 1st attempt documented in this encounter Plan of Treatment Not on file documented as of this encounter Visit Diagnoses Not on filedocumented in this encounter Care Teams Sales And Marketing Analyst Relationship Specialty Start Date End Date Steven Jeffries MD [address] [facility] [place] [place] [address] PCP - General General Internal Medicine 11/18/1810/17 documented as of this encounter
--- OUTSIDE RECORDS SUMMARY | 2023-11-25 15:35 | XMS_ITS | Encounter Summary ---
Author Organization [facility] Address [facility] [place] [address] Care Team Providers Care Health Education Aide Name Role Phone Steven Jeffries MD Primary Care Provider Encounter Details Date Type Department Care Team (Late st Contact Info) Description 11/19/2018 1:00 PM EDT - 11/19/2018 1:30 PM EDT Surgery Gastroenterology at [facility] [place] [address] Nimesh Alicia MD [facility] [place] [address] EGD WITH BIOPSY (WRVU 2.39) Social History [...] Sign Reading Time Taken Comments Blood Pressure 117/57 11/19/2018 1:30 PM EDT Pulse 88 11/19/2018 12:25 PM EDT Temperature 36.3 ??C (97.3 ??F) 11/19/2018 1:22 PM ED T Respiratory Rate 16 11/19/2018 1:30 PM EDT Oxygen Saturation 92% 11/19/2018 1:30 PM EDT Inhaled Oxygen Concentration - - [...] better as expected. Friday-Friday Same Day Endo [phone] 7a-8p Otherwise contact [phone] and ask to speak to the casino surveillance officer amphibious operations officer Follow-up care is a prasad part of [...] ??? Carpal tunnel syndrome G56.00 ??? Cystocele [id number] ??? Degeneration of intervertebral disc of lumbar [...] Alicia MD - 11/19/2018 1:32 PM EDT [facility] [place] Patient Name: Danielle Mills : [id number] MR#: [id number] Case Date: 11/19/2018 Surgeon: Surgeon(s) and Role: [...] PM EDT 11/19/2018 1:26 PM EDT Narrative [facility] - 11/19/2018 1:26 PM EDT Specimen requisition ordered. ??Separate Pathology report to follow Nimesh Alicia MD PATHOLOGY/CYTOLOGY O MARIANO Performing Organization Address [facility] [place] [place] [address] * Specimen to Pathology (11/19/2018 1:26 PM EDT) AP Specimen 11/19/2018 1:26 PM EDT 11/19/2018 1:26 PM EDT Narrative [facility] - 11/19/2018 1:26 PM EDT Specimen requisition ordered. ??Separate Pathology report to follow Nimesh Alicia MD PATHOLOGY/CYTOLOGY O MARIANO Performing Organization Address [facility] [place] [place] [address] * Specimen to Pathology (11/19/2018 1:26 PM EDT) AP Specimen 11/19/2018 1:26 PM EDT 11/19/2018 1:26 PM EDT Narrative [facility] - 11/19/2018 1:26 PM EDT Specimen requisition ordered. ??Separate Pathology report to follow Nimesh Alicia MD PATHOLOGY/CYTOLOGY O MARIANO Performing Organization Address [facility] [place] [place] [address] * Specimen to Pathology (11/19/2018 1:26 PM EDT) AP Specimen 11/19/2018 1:26 PM EDT 11/19/2018 1:26 PM EDT Narrative [facility] - 11/19/2018 1:26 PM EDT Specimen requisition ordered. ??Separate Pathology report to follow Nimesh Alicia MD PATHOLOGY/CYTOLOGY O RDERABLES [facility] [place] [address] * Surgical Pathology Report (11/19/2018 1:14 PM EDT) Surgical Pathology Report [id number] ? Location: 4T; EA07; A The signing [...] Merrill MD Verified: ??11/20/2018 ?Pathologist Performed at: ??[place] [place], [place], [place] CLINICAL INFORMATION Specimen Submitted: A - [...] toto ??in 1 cassette labeled D1. ??apb [facility] 11/19/2018 1:14 PM EDT Nimesh Alicia MD PATHOLOGY/CYTOLOGY O RDERABLES [facility] [place] [address] * UPPER GI ENDOSCOPY (11/19/2018 12:41 PM EDT) UPPER GI ENDOSCOPY [facility] Endoscopy ___ Procedure Date: 11/19/2018 12:41 PM ? Patient Name: Danielle Mills ? Date of : 1960 ? Age: 58 ? Order #: [id number] ? Instrument Name: [id number] LOANER ? ___ Procedure: ? Upper GI endoscopy Indications: ? Follow-up of Johnson's esophagus Providers: ? Nimesh Alicia MD, Yaneli ? Risa Moses MD: ?Steven Jeffries MD [...] EDT Steven Jeffries MD GENERAL SURGICAL ORD ERATRAY Performing Organization Address [facility] de Phone Number [employer] * POCT Glucose (11/19/2018 12:17 PM EDT) POC Glucose 90 65 - 199 mg/dL [facility] Comment: Supplemental ranges: <140 mg/dL before meals <180 mg/dL all other times of the day Blood specimen (specimen) 11/19/2018 12:17 PM EDT 11/19/2018 12:17 PM EDT Nimesh Alicia MD POINT OF CARE TEST O RDERABLES Performing Organization Address [facility] de Phone Number [facility] [place] [address] documented in this encounter Visit Diagnoses Not on filedocumented in this encounter Active and Recently Administered Medications Care Teams Health Education Aide Relationship Specialty Start Date End Date Steven Jeffries MD [address] [address] PCP - General General Internal Medicine 11/18/1810/17 documented as of this encounter
--- OUTSIDE RECORDS SUMMARY | 2023-11-25 15:35 | XMS_ITS | Encounter Summary ---
[place] [address] Care Team Providers Care Sledger Name Role Phone Radha Fry MD Primary Care Provider [phone] Encounter Details Date Type Department Care Team (Latest Contact Info) Description 03/19/2018 2:00 PM EST Ancillary Procedure XRay at [address] [address] Elvin Whiting MD [address] [place] [id number] Primary osteoarthritis of left knee Social History Tobacco Use Types Packs/Day Years Used Date Smoking Tobacco: Every Day Cigarettes Sex and Gender Information Value Date Recorded Sex Assigned at Not on file Gender Identity Female 02/07/2020 7:29 AM EDT Sexual Orientation Not on file documented as of this encounter Plan of Treatment Not on file documented as of this encounter Procedures Procedure Name Priority Date/Time Associated Diagnosis Comments XR KNEE 4 OR MORE VIEWS LEFT Routine 03/19/2018 2:07 PM EST Primary osteoarthritis of left knee documented in this encounter Results * XR Knee 4 or more views Left (03/19/2018 2:07 PM EST) Anatomical Region Laterality Modality Knee Left Digital Radiogra phy Impressions 03/19/2018 2:27 PM EST Degenerative changes as described above. Narrative 03/19/2018 2:27 PM EST EXAMINATION: XR KNEE 4 OR MORE VIEWS LEFT CLINICAL HISTORY: left knee pain TECHNIQUE: Bilateral standing knees, left lateral, left tunnel view bilateral sunrise's COMPARISON: 09/15/2015 FINDINGS: Right. The patient is status post total right knee replacement. The prosthesis is well seated. Left small marginal osteophytes in the lateral compartment. There is narrowing of the lateral patella facet. Procedure Note Cesar Cowan MD - 03/19/2018 EXAMINATION: XR KNEE 4 OR MORE VIEWS LEFT CLINICAL HISTORY: left knee pain TECHNIQUE: Bilateral standing knees, left lateral, left tunnel view bilateralsunrise's COMPARISON: 09/15/2015 FINDINGS: Right. The patient is status post total right knee replacement. The prosthesis iswell seated. Left small marginal osteophytes in the lateral compartment. There isnarrowing of the lateral patella facet. IMPRESSION Degenerative changes as described above. 2:27 PM Elvin Whiting MD IMG DX ORDERABLES documented in this encounter Visit Diagnoses Diagnosis Primary osteoarthritis of left knee Primary localized osteoarthrosis, lower leg documented in this encounter Care Teams Sledger Relationship Specialty Start Date End Date Radha Fry MD PCP - General 07/22/11 11/17/18 documented as of this encounter
--- OUTSIDE RECORDS SUMMARY | 2023-11-25 15:35 | XMS_ITS | Encounter Summary ---
[place] [address] Care Team Providers Care Professor Of Biological Sciences Name Role Phone Radha Fry MD Primary Care Provider [phone] Encounter Details Date Type Department Care Team (Late st Contact Info) Description 12/10/2011 8:45 AM EDT Office Visit [facility] [address] [place] [address] Fitz Post PA [address] [place] [address] Social History Tobacco Use Types Packs/Day Years [...] on filedocumented in this encounter Care Teams Professor Of Biological Sciences Relationship Specialty Start Date End Date Radha Fry MD PCP - General 07/22/11 11/17/18 documented as of this encounter
--- OUTSIDE RECORDS SUMMARY | 2023-11-25 15:35 | XMS_ITS | Encounter Summary ---
Author Organization [facility] [place] [address] Care Team Providers Care Social Service Coordinator Name Role Phone Steven Jeffries MD Primary Care Provider [phone] Encounter Details Date Type Department Care Team (Late st Contact Info) Description 02/18/2019 Telephone Gastroenterology at [facility] [place] [address] Nimesh Alicia MD [facility] [place] [address] Social History Tobacco Use Types Packs/Day Years [...] Telephone Encounter - Kilo Durham RN - 02/18/2019 2:32 PM EDT TC from pt. Pt states that medication, omeprazole, isn't working and I'm what else Dr. Alicia can put me on. Msg forwarded to Dr. Alicia for review * Telephone Encounter - Nimesh Alicia MD - 02/18/2019 10:51 AM EDT I spoke with Ms Gene, she wasn't sure any longer what her question was about her medication. She says she is feeling fine. She will contact me again if she has any questions. documented in this encounter Plan of Treatment Not on file documented as of this encounter Visit Diagnoses Not on filedocumented in this encounter Care Teams Social Service Coordinator Relationship Specialty Start Date End Date Steven Jeffries MD [address] [place] [id number] PCP - General General Internal Medicine 11/18/1810/17 documented as of this encounter
--- OUTSIDE RECORDS SUMMARY | 2023-11-25 15:35 | XMS_ITS | Encounter Summary ---
[place] [address] Care Team Providers Care Test Clerk Name Role Phone Radha Fry MD Primary Care Provider Encounter Details Date Type Department Care Team (Late st Contact Info) Description 03/18/2018 Orders Only Orthopaedics at [address] [address] Elvin Wihting MD [address] [place] [id number] Primary osteoarthritis of left knee Social History [...] of this encounter Results * XR Knee 4 [...] left knee Primary localized osteoarthrosis, lower leg Primary osteoarthritis of left knee Primary localized osteoarthrosis, lower leg documented in this encounter Care Teams Test Clerk Relationship Specialty Start Date End Date Radha Fry MD PCP - General 07/22/11 11/17/18 documented as of this encounter
--- OUTSIDE RECORDS SUMMARY | 2023-11-25 15:35 | XMS_ITS | Encounter Summary ---
Author Organization [facility] [place] [address] Care Team Providers Care Asbestos Surveyor Name Role Phone Gonzalez Sloan MD Primary Care Provider [phone] Encounter Details Date Type Department Care Team (Late st Contact Info) Description 07/17/2010 8:45 AM EST Office Visit [place] [address] Bill Banks MD [facility]STETR[facility] [place] [address] Discharge Disposition: Home Social History Tobacco Use [...] on filedocumented in this encounter Care Teams Asbestos Surveyor Relationship Specialty Start Date End Date Gonzalez Sloan MD [place] [address] [address] [place] [address] PCP - General 04/03/10 04/14/11 documented as of this encounter
--- OUTSIDE RECORDS SUMMARY | 2023-11-25 15:35 | XMS_ITS | Encounter Summary ---
[place] [address] Care Team Providers Care Automotive Glass Specialist Name Role Phone Gonzalez Sloan MD Primary Care Provider [phone] Encounter Details Date Type Department Care Team (Late st Contact Info) Description 12/14/2010 [facility] [address] [place] [address] Chrissy Mendoza RN Social History Tobacco Use Types Packs/Day [...] on filedocumented in this encounter Care Teams Automotive Glass Specialist Relationship Specialty Start Date End Date Gonzalez Sloan MD [place] [address] [address] [place] [address] PCP - General 04/03/10 04/14/11 documented as of this encounter
--- OUTSIDE RECORDS SUMMARY | 2023-11-25 15:35 | XMS_ITS | Encounter Summary ---
Author Organization [facility] [place] [address] Care Team Providers Care Usability Strategist Name Role Phone Gonzalez Sloan MD Primary Care Provider [phone] Encounter Details Date Type Department Care Team (Late st Contact Info) Description 08/24/2010 Orders Only Obstetrics [place] [address] Bill Banks MD [facility] OBSTETRICS & [place] [address] Social History Tobacco Use Types Packs/Day Years [...] on filedocumented in this encounter Care Teams Usability Strategist Relationship Specialty Start Date End Date Gonzalez Sloan MD [facility] [address] [place] [address] PCP - General 04/03/10 04/14/11 documented as of this encounter
--- OUTSIDE RECORDS SUMMARY | 2023-11-25 15:35 | XMS_ITS | Encounter Summary ---
[place] [address] Care Team Providers Care Driftman Name Role Phone Radha Fry MD Primary Care Provider [phone] Encounter Details Date Type Department Care Team (Late st Contact Info) Description 08/23/2014 8:40 AM EDT Office Visit [facility] [address] [place] [address] Elvin Whiting MD [address] [place] [address] Social History Tobacco Use Types Packs/Day Years [...] on filedocumented in this encounter Care Teams Driftman Relationship Specialty Start Date End Date Radha Fry MD PCP - General 07/22/11 11/17/18 documented as of this encounter
--- OUTSIDE RECORDS SUMMARY | 2023-11-25 15:35 | XMS_ITS | Encounter Summary ---
Author Organization [facility] [place] [address] Care Team Providers Care Group Worker Name Role Phone Francy Lowe APRN Primary Care Provider + Encounter Details Date Type Department Care Team (Late st Contact Info) Description 12/08/2019 Telephone [place] [address] Reid Mondragon RN Social History Tobacco Use Types Packs/Day [...] Encounter - Bonnie Gordon RN - 12/09/2019 11:[address] Cabral's info to pt via [employer] message and Kimber Rivera via TC. Pending new rx to Dr Cabral for glimiperide BID instead of daily. * Telephone Encounter - Marta Cabral MD - 12/08/2019 6:40 PM EDT Yes, to take glimiperide 4 mg bid and reduce lantus to half dose. Thanks for the correction. MARTA CABRAL MD * Telephone Encounter - Reid Mondragon RN - 12/08/2019 3:05 PM EDT Received call from CAROLYN Luke, that patient is concerned over medication changes that arebeing made. Her greatest concern is going hypoglycemic. Kimber was looking for dose clarifications on Lantus, Victoza, and glimepiride. This was largely outlined in the [employer] message sent to the patient today at 1444. One question needing clarification though is, is the patient to take 4mg of glimepiride daily or twice daily. The notes say twice daily but the rx was written for daily. They also want to clarify that she should reduce her Lantus dose to 43 (has been taking 86) when she starts Victoza and glimepiride. documented in this encounter Plan of Treatment Not on file documented as of this encounter Visit Diagnoses Not on filedocumented in this encounter Care Teams Group Worker Relationship Specialty Start Date End Date Francy Lowe APRN PCP - General Family Medicine 10/19/19 02/11/21 documented as of this encounter
--- OUTSIDE RECORDS SUMMARY | 2023-11-25 15:35 | XMS_ITS | Encounter Summary ---
[place] [address] Care Team Providers Care Car Supplier Name Role Phone Radha Fry MD Primary Care Provider [phone] Encounter Details Date Type Department Care Team (Late st Contact Info) Description 08/11/2014 8:10 AM EDT Office Visit [facility] [address] [place] [address] Elvin Whiting MD [address] [place] [address] Social History Tobacco Use Types Packs/Day Years [...] on filedocumented in this encounter Care Teams Car Supplier Relationship Specialty Start Date End Date Radha Fry MD PCP - General 07/22/11 11/17/18 documented as of this encounter
--- OUTSIDE RECORDS SUMMARY | 2023-11-25 15:35 | XMS_ITS | Encounter Summary ---
[place] [address] Care Team Providers Care Titrator Name Role Phone Radha Fry MD Primary Care Provider [phone] Encounter Details Date Type Department Care Team (Late st Contact Info) Description 02/09/2013 7:00 AM EDT Office Visit [facility] [address] [place] [address] Elvin Whiting MD [address] [place] [address] Social History Tobacco Use Types Packs/Day Years [...] on filedocumented in this encounter Care Teams Titrator Relationship Specialty Start Date End Date Radha Fry MD PCP - General 07/22/11 11/17/18 documented as of this encounter
--- OUTSIDE RECORDS SUMMARY | 2023-11-25 15:35 | XMS_ITS | Encounter Summary ---
[place] [address] Care Team Providers Care Senior Php Software Developer Name Role Phone Francy Lowe APRN Primary Care Provider + Encounter Details Date Type Department Care Team (Late st Contact Info) Description 02/07/2020 [place] [phone] Maria Saenz MD [facility] [place] [address] Social History Tobacco Use Types Packs/Day Years [...] encounter Miscellaneous Notes * Telephone Encounter - Maria Saenz MD - 02/07/2020 1:57 AM EDT TELEPHONE TRIAGE NOTE Patient Name: Danielle Mills Patient Initial contact date: 02/07/2020 Initial contact time: 1:57 AM Referring provider: Dr. Richey Patient location: [place], [place] Past Medical History: HLD Diabetes on insulin Tobacco use- 1ppd GERD Presenting Symptoms per OSH: 59yo F with above comorbidities. Patient reports intermittent sharp epigastric pain, worse with eating, radiating up her chest. She has presented to the ER 01/28,02/01, 02/03, and now today 02/06. Her work-up all other times was negative. Pain was very positional and thought to be 2/2 GERD. Now shereports pain is more constant, and now she is more dyspneic on exertion. Today initial trop I negative now 0.24 (ULN 0.06). Nitro has completely relieved pain.EKG shows dynamic changes. Pertinent Diagnostic Findings: Vitals: 96.7, 109/76, HR 88, RR 17, 95% RA EKG: Multiple available- dynamic precordial changes Labs: trop negative-> 0.24, WBC 7.5, Hb 15.5, Plt 243, Gluce 157, BUN 9, Cr 0.7, Na 138, K 4.0, HCO3 33, lipase 117 Imaging: CT CAP: unremarkable (stable Upper lung nodule) OSH Interventions: ASA 324mg Plavix 600mg Heparin drip Plan: -High risk NSTEMI- suspect tight LAD based on dynamic changes in precordial leads. As of now, EKG does not meet stemi criteria and patient is currently chest pain free. I initially questioned if there are anterior Q waves, but with recent negative troponins on days of presentation recently and initial negative troponin today, it is unlikely she completed an infarct this week. -Agree with ASA load (already complete), and giving Plavix 600mg (likely early AM cath), and heparin drip. -Low threshold for nitro drip/ to call in cath team sooner if any signs of decompensation. -There are also inferior changes on EKG, and I question lead placement as the axis seems to shift with R waves in one EKG then S waves in the next and switching back to R waves again. Perhaps large wrap-around LAD on the ddx, too. Maria Saenz, PGY5 Cardiovascular Disease Fellow documented in this encounter Plan of Treatment Not on file documented as of this encounter Visit Diagnoses Not on filedocumented in this encounter Care Teams Senior Php Software Developer Relationship Specialty Start Date End Date Francy Lowe APRN PCP - General Family Medicine 10/19/19 02/11/21 documented as of this encounter
--- OUTSIDE RECORDS SUMMARY | 2023-11-25 15:35 | XMS_ITS | Encounter Summary ---
[place] [address] Care Team Providers Care Scheduling Clerk Name Role Phone Radha Fry MD Primary Care Provider [phone] Encounter Details Date Type Department Care Team (Late st Contact Info) Description 04/13/2013 8:00 AM EST Office Visit [facility] [address] [place] [address] Elvin Whiting MD [address] [place] [address] Social History Tobacco Use Types Packs/Day Years [...] on filedocumented in this encounter Care Teams Scheduling Clerk Relationship Specialty Start Date End Date Radha Fry MD PCP - General 07/22/11 11/17/18 documented as of this encounter
--- OUTSIDE RECORDS SUMMARY | 2023-11-25 15:35 | XMS_ITS | Encounter Summary ---
[place] [address] Care Team Providers Care Weighing Station Operator Name Role Phone Steven Jeffries MD Primary Care Provider [phone] Reason for Referral * Physical Therapy (Routine) - Closed Specialty Diagnoses / Procedures Referred By Contac t Referred To Contact Diagnoses Obstructive defecation Pelvic floor dysfunction Siria Lerner MD [address] [place] [id number] [address] Ribeiro, PT [address] [place] [address] Referral ID Status Reason Start Date Expiration Date V isits Requested Visits Authorized [id number] Closed Evaluate and Treat 01/18/2019 07/17/2019 12 12 Reason for Visit * Reason Comments Establish Care * Consultation (Routine) - Closed Specialty Diagnoses / Procedures Referred By Contac t Referred To Contact Obstetrics and Gynecology Diagnoses Rectocele Poginy, Francy L, [employer] [address] [place] [address] [facility] Compliance Specialist [address] [place] [phone] Referral ID Status Reason Start Date Expiration Date Visits Re quested Visits Authorized [id number] Closed 12/15/2018 12/15/2019 1 1 Encounter Details Date Type Department Care Team (Late st Contact Info) Description 01/18/2019 11:00 AM EDT Office Visit Obstetrics [place] [address] Siria Lerner MD [address] [place] [phone] Urinary urgency; Obstructive defecation; Pelvic floor dysfunction; Atrophic vaginitis; Rectocele; Nocturia; Dyspareunia in female Social History Tobacco Use Types Packs/Day Years [...] Sign Reading Time Taken Comments Blood Pressure 127/83 01/18/2019 10:54 AM EDT Pulse 81 01/18/2019 10:54 AM EDT Temperature 36.4 ??C (97.5 ??F) 01/18/2019 1 0:54 AM EDT Respiratory Rate - - Oxygen Saturation 98% 01/18/2019 10: 54 AM EDT Inhaled Oxygen Concentration - - Weight 125.7 kg (277 lb 3.2 oz) 019 10:54 AM EDT Height - - Body Mass Index 46.13 11/19/2018 12:25 PM EDT documented in this encounter Progress Notes * Siria Lerner MD - 01/18/2019 11:00 AM EDT Female Pelvic Medicine and Reconstructive Surgery @ [facility] Patient Name: Danielle Mills Patient Primary Care Provider: Steven Jeffries MD Chief Complaint: Vaginal odor Dyspareunia Defecatory dysfunction (IBS-constipation predominant) Recurrent vaginal bulge following previous rectocele repair in 2014 History of Present Illness: Ms. Mills is a 58 y.o. para 2 woman presents for evaluation and assessment of multiple pelvic floor complaints. Patient reports a recurrent vaginal bulge followign a prior rectocele repair in 2014 She reports she does need to splint currently for constipation a couple times per week, but not with every bowel movement. Patient had a rectocele repair in 2014 at [facility] with Dr. Boo. She reports that prior to surgery, she had to splint with every bowel movement and things felt worse than they do now. She is concerned about both a vaginal odor and pain with coitus. Due to pain (superficial/dryness), she reports coital frequency around every 6 weeks. She had a hysterectomy for dysmenorrhea in 1994. Urinary tract history Patient denies a history of recurrent urinary tract infection. Patient denies a history of urinary tract abnormality. Patient denies a history of pyelonephritis. Patient denies a history of nephrolithiasis. Bladder irritants: Fluid intake: 1-2 water bottles Caffeine intake: 3 to 4 cups of coffee (throughout they day)--DD iced coffee Cigarette smoking (packs, time, if quit when): 1 ppd--has attempted to quit multiple times. Would like to try again Bladder Function Urinary incontinence: yes No. episodes: A couple times per month Pad use (per day): no Daytime voids: Every 2 hours Nocturia: A couple times (sleep apnea) Previous urinary incontinence treatment (Medical/Behavioral/Surgical): Rectocele surgery in the past. Storage symptoms yes Urinary frequency Yes-has sleep apnea and not able to wear CPAP due to recurrent nasal infections Nocturia rarely Stress urinary incontinence - leakage with exertion, cough/sneeze Mostly with first morning void-urgency Urge urinary incontinence - leakage preceded immediately by urge to void Noctural enuresis - NOT IN ASSOCIATION WITH URGE Continuous urinary leakage Other: (e,g. giggle, intercourse-related) Bladder sensation X Normal - aware of filling and increased sensation up to desire to void Increased - feels an early and persistent need to void Reduced - aware of filling but NOT definite desire to void Absent - NO sensation of filling or need to void Non-specific - No specific bladder symptoms during filling or void Voiding symptoms None Slow stream Spraying Intermittent stream - stop/start on > 1 occasion during void Straining - muscular effort to initiate, maintain OR improve stream Terminal dribble - prolonged final part of void sometimes Feeling of incomplete emptying Pelvic Organ Prolapse (POP) Any personally see or feel a vaginal bulge? yes What precipitates prolapse or symptoms of prolapse? Defecation--must splint if constipated Previous treatment for POP (physical therapy, pessary, surgery)?: Surgery- rectocele repair in 2014 Bowel Function Fecal incontinence (yes/no): no Number of bowel movements (day/week): IBS-constipation predominant Takes fiber and avoids laxatives Defecatory Dysfunction: Symptom Presence Symptom Presence NONE Incomplete Emptying Straining Infrequent stools (<3 week) Splinting Yes with constipation Abdominal discomfort Loose stools Defecatory urgency Hard stools Constipation predominant IBS Other Sexual Function Active?: yes Pain with intercourse?: Difficulty with dryness Past Medical History: Diagnosis Date ??? DM [...] Total abdominal hysterectomy Procedure Date: 1994 ??? KNEE ARTHROPLASTY Right 09/2009 right TKA, srd ??? PRO UPPER GI ENDOSCOPY, BIOPSY N/A 11/19/2018 EGD WITH BIOPSY (WRVU 2.49) performed by Nimesh Alicia MD at [facility] ??? RECTOCELE REPAIR 2014 Dr. Boo @ [facility] ??? SHOULDER SURGERY Left 06/05/2017 L shoulder AC joint resection and bicep debridement, Dr. Adrien Pedro ??? TOTAL KNEE ARTHROPLASTY 09/2009 Right total knee replacement Procedure Date: September 2009 Outpatient Medications Marked as Taking for the 01/18/19 encounter (Office Visit) with Siria Lerner MD Medication Sig Dispense Refill ??? acetaminophen (TYLENOL) 500 mg Tablet Take 1,000 mg by mouth every 6 hours as needed for Pain. ??? Ibuprofen 200 mg Capsule Take 800 mg by mouth. ??? amoxicillin (AMOXIL) 500 mg Tablet Take 4 tablets by mouth 1 hour prior to procedure 12 tablet 2 ??? clonazePAM (KLONOPIN) 0.5 mg Tablet Take 0.5 mg by mouth daily. 2 ??? TRESIBA FLEXTOUCH U-200 200 unit/mL (3 mL) Insulin Pen Inject 200 Units as directed. 1 ??? BD ULTRA-FINE ORIG PEN NEEDLE 29 gauge x 1/2 Needle INJECT INSULIN SUBCUTANEOUSLY DIRECTED.3 ??? omeprazole (PRILOSEC) 20 mg Capsule, Delayed Release(E.C.) Take 20 mg by mouth daily. 5 Allergies Allergen Reactions ??? Atorvastatin Other (See Comments) ??? Codeine Other (See Comments) ??? Hydrocodone-Acetaminophen Itching ??? Indomethacin Itching ??? Oxycodone-Acetaminophen Itching ??? Prednisone ??? Rosuvastatin Other (See Comments) Social History Tobacco Use ??? Smoking status: Current Every Day Smoker Packs/day: 0.50 Types: Cigarettes ??? Smokeless tobacco: Never Used ??? Tobacco comment: states is quitting 11/19/2018 Substance Use Topics ??? Alcohol use: Yes Frequency: Never Comment: ocassional ??? Drug use: Not Currently Comment: no drugs since 1990 no IV drug use No family history on file. ROS: Review of all other systems negative except for those mentioned above or indicated below: System Symptom Presence Constitutional Weight Loss No Weight gain No Eyes History of glaucoma No ENT/Mouth Dry mouth No Cardiovascular Chest pain No Leg swelling yes Respiratory Wheezing No SOB Yes-current smoker-1ppd GI Nausea/vomiting No Abdominal pain Constipation Skin Rash No Musculoskeletal Muscle weakness No Trouble Walking No Falling No Back Pain Yes Neurological Dizziness No Numbness No Headaches No Psychiatric Depression Yes-history of PTSD Anxiety No Endocrine Abnormal thirst No Hot flashes No Hematologic Frequent bruising No History of blood transfusions No Blood clots (DVT / PE) with need for blood thinners No History of joint replacement Yes-right knee Prior problems w/ anesthesia No OBJECTIVE: BP 127/83 Pulse 81 Temp 36.4 ??C (97.5 ??F) Wt 125.7 kg (277 lb 3.2 oz) SpO2 98% BMI 46.13 kg/m?? [employer] Bladder Scanner was used to obtain a postvoid residual to further delineate urinary symptoms. After the patient voided, 21 mL was measured as a postvoid residual. This is within normal limits for patient's history and age. General: normal appearing female, pleasant mood, normal speech Skin: skin of abdomen/pelvis normal Multiple tatoos Respiratory: clear to auscultation bilaterally Neuro: no paraspinous tenderness; saddle sensory function (S2-4) intact in the pelvic area to touch Cardiac: regular rate and rhythm, no appreciated murmurs Gastrointestinal: no palpable masses/organomegaly, soft/nontender, no appreciable hernia Musculoskeletal: levator ani tone (0-5): 2/5, levator ani contraction (0-5): 2/5, minimal levator tenderness; lower extremity motor 5/5 bilaterally Pelvic: Cough stress test (empty supine): negative External Genitalia: Vulva, Zeb's and Bartholin glands normal, urethra without tenderness or mass Vagina: With Valsalva, the anterior vaginal wall is well supported and the posterior vagina wall comes 1 cmabove the hymen Atrophic epithelium (yes/no)?: yes Discharge?: minimal Cervix: absent Bimanual (uterus/adnexa): absent uterus, no masses palpated Anal sphincter: Anal wink: present External anal sphincter: intact Rectal exam: no masses, small rectocele, no perineocele POP Q Measurements: Aa -2 Ba -2 C -8 GH 3 PB 3 TVL 11 Ap -1 Bp -1 D X Impression: ?? Mild stage II recurrent rectocele--We discussed that I do not believe surgical correction at this time would improve symptoms ?? Pelvic floor dysfunction--history of trauma--We discussed that I feel that she would benefit from pelvic floor physical therapy with biofeedback to better coordinate muscles during defecation. ?? Genitourinary symptoms of menopause/atrophic vaginitis ?? Vaginal odor--no current evidence of infectious candidal vaginitis or bacterial vaginosis ?? IBS-constipation predominant symptoms ?? Smoking cessation advised. ?? Excessive caffiene consumption, reduction advised ?? Sleep apnea (unable to use CPAP mask) with nocturia Recommendations: For her pelvic organ prolapse: Normal and abnormal anatomy of pelvic floor support discussed. We discussed the symptoms of cystocele or rectocele is a vaginal bulge or the need to splint for comfort, micturition, or defecation. Wediscussed options for treatment of pelvic organ prolapse include expectant management, pelvic floormuscle exercises, pessaries, and surgery. We discussed that in 60 to 80% of women with prolapse, prolapse does not worsen over 5 years. So decisions for treatment should be made on current symptoms, not what patient may anticipate symptoms might become in the future. Given her current pelvic exam, I do not believe that surgery would substantially improve her symptoms. Instead, we discussed that I recommend pelvic floor physical therapy to better coordinate muscles with defecation and treating Genitourinary symptoms of menopause/atrophic vaginitis. Amb referral to physical therapy to [facility] placed. We discussed vaginal estrogen is helpful in the treatment of atrophic vaginitis. Vagianl estrogen has been demonstrated to decrease vaginal pH and decrease recurrent UTIs in postmenopausal women. Vaginal estrogen has been shown to decrease symptoms of vaginal burning, dryness, and pain with intercourse. Risks of irregular vaginal bleeding in women with a uterus were discussed (patient has had a hysterectomy). Estrace cream twice weekly prescribed. In addition, vulvar skin care guidelines were reviewed in detail and written information given. We discussed her current IBS symptoms. We discussed that dietary changes and pelvic floor physical therapy can play large roles in the improvement of her symptoms. FODMAP diet instructions given. Siria Lerner MD MPH FACOG Division of Female Pelvic Medicine/Reconstructive Surgery CC: MD Francy Heller documented in this encounter Plan of Treatment Scheduled Referrals Name Type Priority Associated Diagnoses Orde r Schedule Referral to Physical Therapy Outpatient Referral Routine Obstructive defecation Pelvic floor dysfunction Ordered: 01/18/2019 documented as of this encounter Procedures Procedure Name Priority Date/Time Associated Diagnosis Comments BLADDER SCAN Routine 01/18/2019 Urinary urgency POCT URINE DIPSTICK Routine 01/18/2019 Urinary urgency documented in this encounter Results * Bladder Scan (01/18/2019) Bladder Scan (mL) 21 mL Siria Lerner MD NURSING TREATMENT ORDERABLES - ONCE OR AT INTERVALS * POCT urine dipstick (01/18/2019) POC Sp [place] 1.005 1.002 - 1.030 POC pH, UA 7 5.0 - 8.5 POC Leuk, UA negative Negative - Negative POC Nitrite, UA negative Negative - Negative POC Protein, UA negative Negative - Negative mg/dL POC Glucose, UA normal Normal - Normal mg/dL POC Ketone, UA negative Negative - Negative POC Urobil, UA normal 0.2 - 1.0 mg/dL POC Bili, UA negative Negative - Negative POC Blood, UA negative Negative - Negative jerman/uL Siria Lerner MD POINT OF CARE JOHANNE T ORDERABLES documented in this encounter Visit Diagnoses Diagnosis Urinary urgency Urgency of urination Obstructive defecation Pelvic floor dysfunction Pelvic muscle wasting Atrophic vaginitis Postmenopausal atrophic vaginitis Rectocele Nocturia Dyspareunia in female documented in this encounter Care Teams Weighing Station Operator Relationship Specialty Start Date End Date Steven Jeffries MD [address] [place] [id number] PCP - General General Internal Medicine 11/18/1810/17 documented as of this encounter
--- OUTSIDE RECORDS SUMMARY | 2023-11-25 15:35 | XMS_ITS | Encounter Summary ---
Author Organization [facility] [place] [address] Care Team Providers Care Nib Adjuster Name Role Phone Radha Fry MD Primary Care Provider [phone] Encounter Details Date Type Department Care Team (Late st Contact Info) Description 12/23/2017 Ancillary Procedure [place] [address] Tony Rivera APRN [facility] [place] [address] Social History Tobacco Use Types Packs/Day Years [...] FILM LIBRARY STORAGE ONLY MR SPINE Routine 12/23/2017 12:00 AM EDT documented in this encounter Results * Film Library- Storage Only MR Spine (12/23/2017 12:00 AM EDT) Narrative JAMES - 10/08/2019 11:08 AM EDT This exam is auto-finalizing. It's purpose is for storage only. Tony Rivera APRN IM FILM LIBRARY ORDERABLES DH RAD [place], [place] documented in this encounter Visit Diagnoses Not on filedocumented in this encounter Care Teams Nib Adjuster Relationship Specialty Start Date End Date Radha Fry MD PCP - General 07/22/11 11/17/18 documented as of this encounter
--- OUTSIDE RECORDS SUMMARY | 2023-11-25 15:35 | XMS_ITS | Encounter Summary ---
[place] [address] Care Team Providers Care Automotive Customer Experience Advisor Name Role Phone Radha Fry MD Primary Care Provider [phone] Reason for Visit * Reason Comments Left Knee Pain Left knee pain Encounter Details Date Type Department Care Team (Late st Contact Info) Description 03/19/2018 1:40 PM EST Office Visit Orthopaedics at [address] [address] Sofie Sutton MD [address] [place] [id number] Primary osteoarthritis of left knee Social History Tobacco Use Types Packs/Day Years Used Date Smoking Tobacco: Every Day Cigarettes Sex and Gender Information Value Date Recorded Sex Assigned at Not on file Gender Identity Female 02/07/2020 7:29 AM EDT Sexual Orientation Not on file documented as of this encounter Progress Notes * Sofie Sutton MD - 03/19/2018 1:40 PM EST Chrissy Sarkar [facility], have performed the documentation for this encounter in the presence of and acting as a scribe for OSFIE SUTTON MD. Visit type: FUV (last seen for left knee in 2014) SUBJECTIVE: Danielle is a 57 y.o. female, sent to me in consultation by Radha Fry MD for a chief complaint of left pain. She is well known to me for bilateral knee pain and was last seen by me for her left knee in 2014. She denies any trauma or injury. Onset of symptoms began around 2012. Reports pain and tenderness in the knee diffused, moderate in intensity. Pain is worse with even ground, stairs, better with pillow support at night and Tylenol. She has villegas's esophagus so she can not take NSAIDS. Sheis s/p a Jun 2017 left knee injection from an outside physician which helped to some degree. Deniesany other associated symptoms or systemic complaints. She does wear compression socks which helps wi th left leg swelling. She reports some lower back pain as well which she is being treated for. Blood thinners: No Diabetic: Type II, 7.3 A1-C Jan 2018 Patient Active Problem List Diagnosis Code ??? Neck pain M54.2 ??? Anxiety disorder F41.9 ??? Type 2 diabetes mellitus E11.9 ??? Hiatal hernia K44.9 ??? HLD (hyperlipidemia) E78.5 ??? Insomnia G47.00 ??? Adiposity E66.9 ??? Gastroesophageal reflux disease with hiatal hernia K21.9, K44.9 ??? Villegas's esophagus without dysplasia K22.70 ??? 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 Carpal tunnel syndrome G56.00 ??? Cystocele [id number] ??? Degeneration of intervertebral disc of lumbar [...] Trochanteric bursitis M70.60 ??? Atopic rhinitis J30.9 Medications 03/19/18 1347 Medication Sig Taking? clonazePAM (KLONOPIN) 0.5 mg Tablet Take 0.5 mg by mouth daily. Yes TRESIBA FLEXTOUCH U-200 200 unit/mL (3 mL) Insulin Pen Inject 200 Units as directed. Yes BD ULTRA-FINE ORIG PEN NEEDLE 29 gauge x 1/2 Needle INJECT INSULIN SUBCUTANEOUSLY DIRECTED. Yes LANTUS Solution Inject 100 Units subcutaneously daily. Yes omeprazole (PRILOSEC) 20 mg Capsule, Delayed Release(E.C.) Take 20 mg by mouth daily. Yes amoxicillin (AMOXIL) 500 mg Tablet Take 4 tablets by mouth 1 hour prior to procedure Yes CIS Free Text Med - Chantix Yes Allergies Allergen Reactions ??? Atorvastatin Other (See Comments) ??? Codeine Other (See Comments) ??? Hydrocodone-Acetaminophen Itching ??? Indomethacin Itching ??? Oxycodone-Acetaminophen Itching ??? Prednisone ??? Rosuvastatin Other (See Comments) Social history:?? No drug or alcohol problems reported. Smoker Job occupation: Not working, on disability All other systems reviewed and were negative. Past medical history, medications and allergies were reviewed and updated where appropriate.?? OBJECTIVE: On exam, a well-developed, well-nourished 57 y.o. female Estimated body mass index is 40.15 kg/m?? as calculated from the following: Height as of 08/23/14: 166.4 cm (5' 5.5). Weight as of 08/23/14: 111.1 kg (245 lb). awake, alert, oriented x3.?? No erythema, ecchymosis, or lymphadenopathy. Valgus deformity Notable crepitus Normal tracking patella Tenderness over the medial joint Notable swelling within the ankle Good pulses IMAGING: X-Rays taken on at [facility] were reviewed with the patient and shows: Left knee osteoarthritis, bone spurring ASSESSMENT: Left knee osteoarthritis Smoker Diabetic Elevated BMI PLAN: She does have notable left leg swelling. We can treat this knee conservatively, with visco supplementations such as a Synvisc One injection, but can expect some inflammation post injection. She also inquired about having this injection done closer to her home by an outside provider which is also anoption for her. At this point we will try to get her authorized for a Synvisc One injection. Repeat every 6 months as needed for knee pain. Discussed starting an exercise program and weight control. Conservative measures including relative rest, ice, NSAID's, compression and elevation were reviewed. Concerning symptoms for which to return or seek more urgent care were discussed.?? A significant amount of time was spent with direct counseling of care. Discussed the anatomy and the pathophysiology associated with the ailment, potential treatment options, including but not limited to future surgical options. Follow when authorized for a Synvisc One injection into the left knee. Cc: Radha Fry MD I performed the services which were documented by the scribe, and I agree with the accuracy of the documentation in this encounter. Sofie Sutton MD documented in this encounter Plan of Treatment Not on file documented as of this encounter Visit Diagnoses Diagnosis Primary osteoarthritis of left knee Primary localized osteoarthrosis, lower leg documented in this encounter Care Teams Automotive Customer Experience Advisor Relationship Specialty Start Date End Date Radha Fry MD PCP - General 07/22/11 11/17/18 documented as of this encounter
--- OUTSIDE RECORDS SUMMARY | 2023-11-25 15:35 | XMS_ITS | Encounter Summary ---
[place] [address] Care Team Providers Care Grants And Contracts Assistant Name Role Phone Radha Fry MD Primary Care Provider [phone] Reason for Visit * Reason Onset Date Comments Medication Refill 05/23/2015 Encounter Details Date Type Department Care Team (Late st Contact Info) Description 05/23/2015 Telephone Orthopaedics at [place] [address] [place] [address] Elvin Whiting MD [address] [place] [address] Medication Refill Social History Tobacco Use Types Packs/Day Years Used Date Smoking Tobacco: Never Assessed Sex and Gender Information Value Date Recorded Sex Assigned at Not on file Gender Identity Female 02/07/2020 7:29 AM EDT Sexual Orientation Not on file documented as of this encounter Miscellaneous Notes * Telephone Encounter - Rochelle Jaramillo LPN - 05/23/2015 3:13 PM EST Danielle returning my call. Verified that she has no new medication allergies, no allergy to Amoxicillin. Med Erx. Patient verbalized understanding and is in agreement with this plan. * Telephone Encounter - Rochelle Jaramillo LPN - 05/23/2015 2:08 PM EST Phoned patient. Left message on machine to return my call. * Telephone Encounter - Zohreh Alonso - 05/23/2015 1:10 PM EST Would like Refill on her Amoxicillin for her dental procedure called into [facility] Please call her at [phone] when done. documented in this encounter Plan of Treatment Not on file documented as of this encounter Visit Diagnoses Diagnosis History of total knee arthroplasty, right documented in this encounter Care Teams Grants And Contracts Assistant Relationship Specialty Start Date End Date Radha Fry MD PCP - General 07/22/11 11/17/18 documented as of this encounter
--- OUTSIDE RECORDS SUMMARY | 2023-11-25 15:35 | XMS_ITS | Encounter Summary ---
[place] [address] Care Team Providers Care Metabolic Specialist Name Role Phone Francy Lowe APRN Primary Care Provider + Reason for Referral * Surgical (Routine) - Closed Specialty Diagnoses / Procedures Referred By Contac t Referred To Contact Gastroenterology Diagnoses Esophageal spasm Procedures High Resolution Esophageal Manometry Nimesh Alicia MD [facility] [place] [address] [facility] [address] [place] [id number] Referral ID Status Reason Start Date Expiration Date V isits Requested Visits Authorized [id number] Closed Consult, Test & Treat 02/03/2020 02/02/2021 1 1 * Consultation (Routine) - Closed Specialty Diagnoses / Procedures Referred By Contac t Referred To Contact Gastroenterology Diagnoses Esophageal spasm Nimesh Alicia MD [facility] [place] [address] [facility] Endoscopy [address] [place] [phone] Referral ID Status Reason Start Date Expiration Date V isits Requested Visits Authorized [id number] Closed Consult, Test & Treat 02/03/2020 02/02/2021 1 1 Encounter Details Date Type Department Care Team (Late st Contact Info) Description 02/03/2020 Orders Only Gastroenterology at [facility] [place] [address] Nimesh Alicia MD [facility] [place] [id number] Esophageal spasm Social History Tobacco Use Types Packs/Day Years [...] Priority Associated Diagnoses Orde r Schedule High Resolution Esophageal Manometry Procedures Routine Esophageal spasm Ordered: 02/03/2020 Scheduled Referrals Name Type Priority Associated Diagnoses Order Schedule Referral to Gastroenterology Outpatient Referral Routine Esophageal spasm Ordered: 02/03/2020 documented as of this encounter Procedures Procedure Name Priority Date/Time Associated Diagnosis Comments EKG 12-LEAD Routine 02/07/2020 9:16 AM EDT documented in this encounter Results * EKG 12 Lead (02/07/2020 9:16 AM EDT) Ventricular rate 76 BPM MUSE SYSTEM Atrial Rate 76 BPM MUSE SYSTEM P-R Interval 160 ms MUSE SYSTEM QRS Duration 78 ms MUSE SYSTEM Q-T Interval 442 ms MUSE SYSTEM QTC Calculated (Bezet) 497 ms MUSE SYSTEM Calculated P [place] 58 degrees MUSE SYSTEM Calculated R [place] 19 degrees MUSE SYSTEM Calculated T [place] 109 degrees MUSE SYSTEM INTERPRETATION Normal sinus rhythm Possible Anterior infarct (cited on or before 07-FEB-2020) T wave abnormality, consider lateral ischemia Abnormal ECG When compared with ECG of 07-FEB-2020 06:33, No significant change was found Confirmed by MD YANDY, SOHAIL ([id number]) on 02/08/2020 8:36:48 AM MUSE SYSTEM 02/07/2020 9:16 AM EDT 02/08/2020 8:36 AM EDT Unknown ECG ORDERABLES SPark! SYSTEM documented in this encounter Visit Diagnoses Diagnosis Esophageal spasm Dyskinesia of esophagus documented in this encounter Care Teams Metabolic Specialist Relationship Specialty Start Date End Date Francy Lowe APRN PCP - General Family Medicine 10/19/19 02/11/21 documented as of this encounter
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
--- OUTSIDE RECORDS SUMMARY | 2023-11-25 15:35 | XMS_ITS | Encounter Summary ---
Author Organization [facility] [place] [address] Care Team Providers Care Environmental Assistant Name Role Phone Steven Jeffries MD Primary Care Provider [phone] Encounter Details Date Type Department Care Team (Late st Contact Info) Description 08/23/2019 8:00 AM EDT TH Visit (TeleHealth) Gastroenterology at [facility] [place] [address] Nimesh Alicia MD [facility] [place] [address] Throat burning Social History Tobacco Use Types Packs/Day Years [...] Progress Notes * Nimesh Alicia MD - 08/23/2019 8:00 AM EDT [facility] Section of Gastroenterology and Hepatology Outpatient Consultation [facility] Gastroenterology Telephone Note Primary care provider: Steven Jeffries MD Referred by Reason for visit: follow up symptoms I spoke with Ms Mills this morning to follow up symptoms. She started experiencing a severe burning sensation in the back of her throat that she recalls starting after beginning treatment with Tresiba. She recalls her primary care doctor not certain that this was the etiology. Ms Mills stopped the medication, the symptoms improved, restarted the medication and the symptoms returned, and has since switched to lantus and has less frequent symptoms. She is taking omeprazole twice daily. Smoking. Weighs 270 lbs unable to gain or lose weight. We discussed her EGD from 11/2018 without pathology evidence of Johnson,s but recalls having carried the diagnosis of Johnson's in the past Review of Systems: All other systems negative except as above in HPI Past Medical History: Diagnosis Date ??? DM [...] 2.49) performed by Nimesh Alicia MD at [facility] ENDOSCOPY ??? RECTOCELE REPAIR 2014 Dr. Boo @ [facility] ??? SHOULDER SURGERY Left 06/05/2017 L shoulder AC joint resection and bicep debridement, Dr. Adrien Pedro ??? TOTAL KNEE ARTHROPLASTY 09/2009 Right total knee replacement Procedure Date: September 2009 Social History: reports that she has been smoking cigarettes. She has been smoking about 0.50 packsper day. She has never used smokeless tobacco. She reports current alcohol use. She reports previous drug use. Family History: family history is not on file. Current Outpatient Medications Medication Sig Dispense Refill ??? estradiol (ESTRACE) 0.01 % (0.1 mg/gram) [...] Take 20 mg by mouth daily. 5 No current facility-administered medications for this visit. Allergies Allergen Reactions ??? Atorvastatin Other (See Comments) ??? Codeine Other (See Comments) ??? Hydrocodone-Acetaminophen Itching ??? Indomethacin Itching ??? Oxycodone-Acetaminophen Itching ??? Prednisone ??? Rosuvastatin Other (See Comments) No Physical Examination Performed because this was a telephone/telehealth visit Additional Testing: Reviewed available labs, imaging and endoscopy results in EDH/CIS as well as Scan Docs tab. Labs: No results found for: WBC, HGB, HCT, MCV, PLATELET Chemistry No results found for: NA, K, CL, CO2, BUN, CREATININE No results found for: CALCIUM, ALKPHOS, AST, ALT, BILITOT No results found for: ALT, AST, GGT, ALKPHOS, BILITOT IMPRESSION AND RECOMMENDATIONS: Danielle Mills is a 59 y.o. woman with insulin dependent diabeteswho I spoke with this morning by telephone regarding a burning sensation she was having in the backof her throat that she noticed developing after starting Tresiba. I would agree with her PCP that this symptom would be a very atypical side effect of this medication; however, her symptoms were allev iated when she stopped and exacerbated when she restarted. They are infrequent and mild now that she is on Lantus. She taking PPI bid, and would like to stop smoking. We discussed weight loss and life style modifications for reflux. She is going to let me know how she does, and if her symptoms change. 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 in 2018. Patient verbally consents to this telephone visit and understands that this visit may be billed, similar to a clinic office visit. I provided care to the patient today via telephone call, 15 minutes telephone visit was spent in discussion with patient on above. Nimesh Alicia MD CC Steven Jeffries MD [address] [place] [address] No referring provider defined for this encounter. Gastroenterology Section [facility] documented in this encounter Plan of Treatment Not on file documented as of this encounter Visit Diagnoses Diagnosis Throat burning Throat pain documented in this encounter Care Teams Environmental Assistant Relationship Specialty Start Date End Date Steven Jeffries MD [address] [place] [address] PCP - General General Internal Medicine 11/18/1810/17 documented as of this encounter
--- OUTSIDE RECORDS SUMMARY | 2023-11-25 15:35 | XMS_ITS | Encounter Summary ---
[place] [address] Care Team Providers Care Area Coordinator Name Role Phone Radha Fry MD Primary Care Provider [phone] Encounter Details Date Type Department Care Team (Late st Contact Info) Description 01/19/2013 3:10 PM EDT Office Visit [facility] [address] [place] [address] Elvin Whiting MD [address] [place] [address] Social History Tobacco Use Types Packs/Day Years [...] on filedocumented in this encounter Care Teams Area Coordinator Relationship Specialty Start Date End Date Radha Fry MD PCP - General 07/22/11 11/17/18 documented as of this encounter
--- OUTSIDE RECORDS SUMMARY | 2023-11-25 15:35 | XMS_ITS | Encounter Summary ---
Author Organization [facility] [place] [address] Care Team Providers Care Finance Broker Name Role Phone Francy Lowe APRN Primary Care Provider + Encounter Details Date Type Department Care Team (Late st Contact Info) Description 02/07/2020 3:00 AM EDT Ancillary [place] [address] Francy Lowe APRN [address] [place] [address] Social History Tobacco Use Types Packs/Day Years [...] Associated Diagnosis Comments FILM LIBRARY STORAGE ONLY CT CHEST ABDOMEN PELVIS Routine 02/07/2020 2:56 AM EDT documented in this encounter Results * Film Library- Storage Only CT Chest Abdomen Pelvis (02/07/2020 2:56 AM EDT) Narrative [facility] - 02/07/2020 2:56 AM EDT This exam is auto-finalizing. It's purpose is for storage only. Francy Lowe APRN [facility] FILM LIBRARY ORD ERABLES [place], [place] documented in this encounter Visit Diagnoses Not on filedocumented in this encounter Care Teams Finance Broker Relationship Specialty Start Date End Date Francy Lowe APRN PCP - General Family Medicine 10/19/19 02/11/21 documented as of this encounter
--- OUTSIDE RECORDS SUMMARY | 2023-11-25 15:35 | XMS_ITS | Encounter Summary ---
[place] [address] Care Team Providers Care Automobile Body Customizer Name Role Phone Radha Fry MD Primary Care Provider [phone] Encounter Details Date Type Department Care Team (Late st Contact Info) Description 08/11/2012 10:50 AM EDT Office Visit [facility] [address] [place] [address] Elvin Whiting MD [address] [place] [address] Social History Tobacco Use Types Packs/Day Years [...] on filedocumented in this encounter Care Teams Automobile Body Customizer Relationship Specialty Start Date End Date Radha Fry MD PCP - General 07/22/11 11/17/18 documented as of this encounter
[2023-11-25 19:05] LABS: Abs Immature Grans 0.01 10^3/uL (0.0-0.06); Absolute Basophil Count 0.04 10^3/uL (0.0-0.2); Absolute Eosinophil Count 0.07 10^3/uL (0.0-0.7); Absolute Lymphocyte Count 1.88 10^3/uL (1.2-3.4); Absolute Monocyte Count 0.41 10^3/uL (0.1-0.8); Absolute Neutrophil Count 2.94 10^3/uL (1.2-6.7); Basophils % 0.7 %; Eosinophils % 1.3 %; HCT 44.8 % (36.0-46.0); HGB 14.9 g/dL (11.2-15.7); Immature Grans % 0.2 %; Lymphocytes % 35.1 %; MCH 28.1 pg (27.0-33.0); MCHC 33.3 % (32.0-36.0); MCV 85 fL (80-95); Monocytes % 7.7 %; Platelet Count 211 10^3/uL (130-400); RDW 12.8 % (11.7-14.6); RDW-SD 39.6 fL; WBC 5.35 10^3/uL (4.4-10.8)
[2023-11-25 19:20] LABS: ALT 23 U/L (14-59); AST 18 U/L (15-37); Albumin 3.5 g/dL (3.4-5.0); Alkaline Phosphatase 63 U/L (46-116); Anion Gap 7.7 mmol/L (3-11); BUN 11 mg/dL (7-18); Bilirubin, Total 0.52 mg/dL (0.2-1.0); CO2 30.3 mmol/L (21.0-32.0); CREATININE 0.7 mg/dL (0.55-1.02); Calcium 9.1 mg/dL (8.5-10.1); Chloride 105 mmol/L (98-107); Estimated GFR 97.72 (mL/min/1.73m2); Glucose 123 mg/dL (74-106); Sodium 143 mmol/L (136-145); Total Protein 6.7 g/dL (6.4-8.2)
[2023-11-26 20:01] LABS: HIV-1/2 Ag & Ab Screen Negative (Negative)
== END 2023-11-25 15:28 | disposition home or self-care (01) ==
LOC: NCHCN 15:27
PROVIDERS: PCP Internal Medicine; Visit Provider Physician Assistant
DX: K76.0 Fatty (change of) liver, not elsewhere classified (principal); Z11.4 Encounter for screening for human immunodeficiency virus [HIV]
CPT/HCPCS: 80053; 87389; 85025

== ENCOUNTER 2024-05-21 20:08 | Outpatient (REF) | payer OTHER, SELFPAY ==
[2024-05-21 19:17] LABS: Abs Immature Grans 0.01 10^3/uL (0.0-0.06); Absolute Basophil Count 0.05 10^3/uL (0.0-0.2); Absolute Eosinophil Count 0.04 10^3/uL (0.0-0.7); Absolute Lymphocyte Count 1.94 10^3/uL (1.2-3.4); Absolute Neutrophil Count 4.07 10^3/uL (1.2-6.7); Basophils % 0.8 %; Eosinophils % 0.6 %; HCT 46.6 % (36.0-46.0); HGB 15.3 g/dL (11.2-15.7); Immature Grans % 0.2 %; Lymphocytes % 29.8 %; MCH 27.6 pg (27.0-33.0); MCHC 32.8 % (32.0-36.0); MCV 84 fL (80-95); MPV 10.8 fL (8.0-11.0); Monocytes % 6.1 %; Neutrophils % 62.5 %; Platelet Count 225 10^3/uL (130-400); RBC 5.54 10^6/uL (3.93-5.22); RDW 12.8 % (11.7-14.6); RDW-SD 39.1 fL; WBC 6.51 10^3/uL (4.4-10.8)
[2024-05-21 19:39] LABS: ALT 18 U/L (14-59); AST 16 U/L (15-37); Albumin 3.4 g/dL (3.4-5.0); Alkaline Phosphatase 68 U/L (46-116); Anion Gap 1.7 mmol/L (3-11); BUN 15 mg/dL (7-18); Bilirubin, Total 0.39 mg/dL (0.2-1.0); CO2 32.3 mmol/L (21.0-32.0); CREATININE 0.9 mg/dL (0.55-1.02); Calcium 8.9 mg/dL (8.5-10.1); Chloride 104 mmol/L (98-107); Estimated GFR 72.28 (mL/min/1.73m2); FREE T4 0.85 ng/dL (0.76-1.46); Glucose 204 mg/dL (74-106); Magnesium 1.7 mg/dL (1.8-2.4); Potassium 4.1 mmol/L (3.5-5.1); Sodium 138 mmol/L (136-145); TSH 0.91 uIU/mL (0.36-3.74); Total Protein 6.7 g/dL (6.4-8.2)
--- OUTSIDE RECORDS SUMMARY | 2024-05-21 20:13 | XMS_ITS | Encounter Summary ---
Author Organization [facility] Address [address] [place] [address] Care Team Providers Care Orchid Worker Name Role Phone Francy Lowe PHLEBOTOMY TECHNOLOGIST Primary Care Provider [phone] Encounter Details Date Type Department Care Team (Late st Contact Info) Description 11/26/2023 Lab Requisition [facility] Pathology & Laboratory Medicine - [address] [address] Outr Resulting Lab, Provider Social History Tobacco Use Types Packs/Day Years Used Date Smoking Tobacco: Every Day Cigarettes 0.5 30 Smokeless Tobacco: Never Alcohol Use Standard Drinks/Week Comments Not Currently 0 (1 standard drink = 0.6 oz pur e alcohol) Interpersonal Safety Answer Date Record ed Physically Hurt Never 10/01/2020 Verbally Threaten Not on file 10/01/2020 Comments Unknown Sex and Gender Information Value Date Recorded Sex Assigned at Not on file Legal Sex Female 13:59 EST Gender Identity Not on file Sexual Orientation Not on file documented as of this encounter Plan of Treatment Not on file documented as of this encounter Procedures Procedure Name Priority Date/Time Associated Diagnosis Comments HIV 1/2 ANTIGEN AND ANTIBODY, 4TH GENERATION Routine 11/25/2023 11:30 EDT documented in this encounter Results * HIV 1/2 ANTIGEN AND ANTIBODY, 4TH GENERATION (11/25/2023 11:30 EDT) HIV 1 and 2 Antibody/p24 Antigen, 4th Generation Negative Negative 11/26/2023 19:[address] [facility] Comment:If acute HIV-1 infec tion is suspected in a high risk patient, submit plasma specimen for HIV-1 RNA quantitation test. Blood VENOUS BLOOD / Unknown 11/25/2023 11:30 EDT 11/26/2023 18:[address] [facility] - 11/26/2023 19:55 EDT Fourth Generation assay performed on the Siemens Drivyaur XPT. us Provider Outr Resulting Lab IMMUNOLOGY AND SEROL OGY ORDERABLES Final Result [facility] [address] [place], [place] [id number] documented in this encounter Visit Diagnoses Not on filedocumented in this encounter Care Teams Orchid Worker Relationship Specialty Start Date End Date Francy Lowe NP PCP - General 11/30/20 documented as of this encounter
--- OUTSIDE RECORDS SUMMARY | 2024-05-21 20:13 | XMS_ITS | Encounter Summary ---
Author Organization [facility] Address [address] [place] [address] Care Team Providers Care Coldfusion Name Role Phone Francy Lowe DISPOSAL OPERATOR Primary Care Provider [phone] Encounter Details Date Type Department Care Team (Late st Contact Info) Description 01/25/2022 Lab Requisition [facility] Pathology & Laboratory Medicine - [address] [address] Outr Resulting Lab, Provider Social History Tobacco [...] 97 - 169 ng/dL 01/25/2022 19:57 EDT [facility] Blood VENOUS BLOOD / Unknown 01/24/2022 12:00 EDT 01/25/2022 19:01 EDT us Provider Outr Resulting Lab CHEMISTRY & BLOOD GA S ORDERABLES Final Result [facility] [address] [place] [address] documented in this encounter Visit Diagnoses Not on filedocumented in this encounter Care Teams Coldfusion Relationship Specialty Start Date End Date Francy Lowe, VIRY PCP - General 11/30/20 documented as of this encounter
--- OUTSIDE RECORDS SUMMARY | 2024-05-21 20:13 | XMS_ITS | Encounter Summary ---
Author Organization [facility] Address [address] [place] [address] Care Team Providers Care Test Development Engineer Name Role Phone Francy Lowe GENETIC COUNSELOR Primary Care Provider [phone] Encounter Details Date Type Department Care Team (Late st Contact Info) Description 02/16/2021 Orders Only [facility] Spine Program - [address] [place] [address] Fariba Darling, TAQUERIA [address] [facility] [place] [address] Low back pain, unspecified back [...] Fariba Darling PA-C IMRadha DIAGNOSTIC IMAGING ORDERABLES Final Result documented in this encounter Visit Diagnoses Diagnosis Low back pain, unspecified back pain laterality, unspecified chronicity, unspecified whether sciatica present- Primary Low back pain, unspecified back pain laterality, unspecified chronicity, unspecified whether sciatica present documented in this encounter Care Teams Test Development Engineer Relationship Specialty Start Date End Date Francy Lowe NP PCP - General 11/30/20 documented as of this encounter
--- OUTSIDE RECORDS SUMMARY | 2024-05-21 20:13 | XMS_ITS | Encounter Summary ---
Author Organization [facility] Address [address] [place] [address] Care Team Providers Care Freight Tallier Name Role Phone Francy Lowe CIGAR MAKING MACHINE OPERATOR Primary Care Provider [phone] Encounter Details Date Type Department Care Team (Late st Contact Info) Description 05/09/2021 Lab Requisition [facility] Pathology & Laboratory Medicine - [address] [address] Outr Resulting Lab, Provider Social History Tobacco [...] 05/08/2021 15:3 0 EST 05/09/2021 17:07 EST us Provider Outr Resulting Lab MICROBIOLOGY - GENER AL ORDERABLES Final Result [facility] [address] [place] [address] * COVID-19 TESTING (05/08/2021 15:30 EST) COVID-19 rt-PCR Result Negative Negative 05/10/2021 10:28 EST [facility] Comment: This test has not [...] was performed using the latanya SARS-CoV-2 assay ([employer] on the Latanya 6800 System Performing Lab Latanya [address] [facility] Lab 05/10/2021 10:28 EST [facility] Swab 05/08/2021 15:3 0 EST 05/09/2021 17:07 EST us Provider Outr Resulting Lab MICROBIOLOGY - GENER AL ORDERABLES Final Result [facility] [address] [place] [address] documented in this encounter Visit Diagnoses Not on filedocumented in this encounter Care Teams Freight Tallier Relationship Specialty Start Date End Date Francy Lowe NP PCP - General 11/30/20 documented as of this encounter
--- OUTSIDE RECORDS SUMMARY | 2024-05-21 20:13 | XMS_ITS | Encounter Summary ---
Author Organization [facility] Address [address] [place] [address] Care Team Providers Care Explosive Operator Supervisor Name Role Phone AdeFrancy orosco Pauline SENIOR COMMERCIAL LOAN OFFICER Primary Care Provider [phone] Encounter Details Date Type Department Care Team (Latest Contact Info) Description 03/05/2021 10:48 EDT - 03/05/2021 23:59 EDT Hospital Encounter [facility] [address] [place], [place] [id number] Low back pain, unspecified back pain laterality, [...] this encounter Medications at Time of Discharge aspirin chewable 81 mg tablet Take 81 [...] Atheroscleroticcalcifications of the abdominal aorta are present. us Fariba Darling PA-C [facility] ORDERABLES Final Result documented in this encounter Visit Diagnoses Diagnosis Low back pain, unspecified back pain laterality, unspecified chronicity, unspecified whether sciatica present documented in this encounter Care Teams Explosive Operator Supervisor Relationship Specialty Start Date End Date Francy Lowe NP PCP - General 11/30/20 documented as of this encounter
--- OUTSIDE RECORDS SUMMARY | 2024-05-21 20:13 | XMS_ITS | Continuity of Care Document ---
Author Organization [facility] Ambulatory Clinics Address [address] [place] [address] Care Team Providers Care Pattern Stamper Name Role Phone ROMEO PAYTON PA-C Primary Care Physician Encounter [facility] NBR [id number] Date(s): 11/26/23 - 11/26/23 [facility] Ambulatory Clin[facility] [address] [place] [address]- [place] Patient Care team information Care Team Personnel Name: FITO MENG ([facility])ROMEO Position: No Access Member Role: Primary Care Physician Address: Address: [address] [place] [id number]
--- OUTSIDE RECORDS SUMMARY | 2024-05-21 20:13 | XMS_ITS | Continuity of Care Document ---
Author Organization [facility] Ambulatory Clinics Address [address] [place] [address] Care Team Providers Care Sleeve Tailor Name Role Phone ROMEO PAYTON PA-C Primary Care Physician [phone] Encounter [facility] FIN NBR [id number] Date(s): 05/04/24 - 05/04/24 [facility] Ambulatory Clinics [address] [place] [address]- [place] Discharge Disposition: Home Encounter Type: Between Visit Allergies, Adverse Reactions, Alerts Substance Criticality Severity Reaction Reaction Severity Status codeine Unable to assess criticality Unknown Active indomethacin Unable to assess criticality Unknown Active cortisone Unable to assess criticality Unknown Active sertraline Unable to assess criticality Unknown Active atorvastatin Unable to assess criticality Unknown Active citalopram Unable to assess criticality Unknown Active escitalopram Unable to assess criticality Unknown Active rosuvastatin Unable to assess criticality Unknown Active ezetimibe-simvastatin Unable to assess criticality Unknown Active buPROPion Unable to assess criticality Unknown Active exenatide Unable to assess criticality Unknown Active predniSONE Unable to assess criticality Unknown Active metFORMIN Unable to assess criticality Unknown Active DULoxetine Unable to assess criticality Unknown Active liraglutide Unable to assess criticality Unknown Active Tape Unable to assess criticality Unknown Active oxycodone-acetaminophe n Unable to assess criticality Unknown Active hydrocodone-acetaminop hen Unable to assess criticality Unknown Active Assessment and Plan Future Scheduled Tests Radiology* MRI Spine Lumbar w/o Contrast 05/03/24 Medications acetaminophen 1,000 mg =, Oral, PRN as needed for pain, 0 Refill(s) Start Date: 12/26/23 Status: Ordered Repeat number: 1 amoxicillin 500 mg =, given 1 hour prior to the procedure, 0 Refill(s) Start Date: 12/26/23 Status: Ordered Repeat number: 1 aspirin 81 mg oral capsule 81 mg = 1 cap, Oral, every 24 hr, 0 Refill(s) Start Date: 12/26/23 Status: Ordered Repeat number: 1 clonazePAM 0.5 mg =, Oral, Daily, 0 Refill(s) Start Date: 12/26/23 Status: Ordered Repeat number: 1 Cytomel 5 mcg =, Oral, Daily, 0 Refill(s) Start Date: 12/26/23 Status: Ordered Repeat number: 1 Dexilant 30 mg oral delayed release capsule 30 mg = 1 cap, Oral, Daily, 0 Refill(s) Start Date: 12/26/23 Status: Ordered Repeat number: 1 isosorbide mononitrate extended release 60 mg =, Oral, every morning, 0 Refill(s) Start Date: 12/26/23 Status: Ordered Repeat number: 1 metoprolol succinate 75 mg =, Oral, Daily, 0 Refill(s) Start Date: 12/26/23 Status: Ordered Repeat number: 1 nitroglycerin 0.4 mg sublingual tablet 0.4 mg = 1 tab, Sublingual, every 5 min, PRN as needed for chest pain, 0 Refill(s) Start Date: 12/26/23 Status: Ordered Repeat number: 1 Ozempic 2 mg, Subcutaneous, every week, 0 Refill(s) Start Date: 12/26/23 Status: Ordered Repeat number: 1 Repatha Pushtronex 420 mg =, Subcutaneous, every month, 0 Refill(s) Start Date: 12/26/23 Status: Ordered Repeat number: 1 Problem List Condition Confirmation Course Effective Dates Status H ealth Status Informant Benign lipomatous neoplasm Confirmed Active Carpal tunnel Confirmed Active Constipation Confirmed Active Cystocele Confirmed Active Edema Confirmed Active Gastroesophageal reflux Confirmed Active Delano's thyroiditis Confirmed Active Pain in right hip Confirmed Active Hyperlipidemia Confirmed Active Myocardial infarction Confirmed Active Nicotine dependence Confirmed Active Nonalcoholic steatohepatitis Confirmed Active Obstructive sleep apnea Confirmed Active Osteoarthritis Confirmed Active Radiculopathy Confirmed Active Spinal stenosis of cervical region Confirmed Active Type 2 diabetes mellitus Confirmed Active Social History Social History Type Response Tobacco Current everyday tob acco user Tobacco Use:. 1 ppd per day. Sex Sex Representation Female (finding) Patient Care team information Care Team Personnel Name: FITO MENG (JEAN)ROMEO Position: No Access Member Role: Primary Care Physician Address: [address] [place] [id number] Telecom: Insurance Providers Guarantor name: Health Plan Information #: 1 Payer: [facility] MEDIC[facility] SOLUTIONS Member Number: NA Policy Number: NA Group Number: NA
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
--- OUTSIDE RECORDS SUMMARY | 2024-05-21 20:13 | XMS_ITS | Continuity of Care Document ---
Author Organization [facility] Ambulatory Clinics Address [address] [place] [address] Care Team Providers Care Global Marketing Specialist Name Role Phone FITO MENG, ROMEO Lozano Primary Care Physician [phone] Encounter [facility] NBR [id number] Date(s): 05/04/24 - 05/04/24 [facility] Ambulatory Clinics [address] [place] [address] [place] Discharge Disposition: Home Encounter [...] Access Member Role: Primary Care Physician Address: [address] [place] [id number] Telecom: Insurance Providers Guarantor name: Health Plan Information #: 1 Payer: [facility] MEDICARE SOLUTIONS Member Number: NA Policy Number: NA Group Number: NA
--- OUTSIDE RECORDS SUMMARY | 2024-05-21 20:13 | XMS_ITS | Encounter Summary ---
Author Organization [facility] Address [address] [place] [address] Care Team Providers Care Vrt Mechanic Name Role Phone Francy Lowe REFUGE MANAGER Primary Care Provider [phone] Encounter Details Date Type Department Care Team (Late st Contact Info) Description 01/30/2023 Lab Requisition [facility] Pathology & Laboratory Medicine - [address] [id number] Outr Resulting Lab, Provider Social History Tobacco [...] 97 - 169 ng/dL 01/30/2023 19:11 EDT [facility] Blood VENOUS BLOOD / Unknown 01/29/2023 9:35 EDT 01/30/2023 18:02 EDT us Provider Outr Resulting Lab CHEMISTRY & BLOOD GA S ORDERABLES Final Result [facility] [address] [place] [address] documented in this encounter Visit Diagnoses Not on filedocumented in this encounter Care Teams Vrt Mechanic Relationship Specialty Start Date End Date Francy Lowe, VIRY PCP - General 11/30/20 documented as of this encounter
--- OUTSIDE RECORDS SUMMARY | 2024-05-21 20:13 | XMS_ITS | Referral Summary ---
Author Organization [facility] Address [address] [place] [address] Care Team Providers Care Bottom Precipitator Operator Name Role Phone AdeFrancy orosco Pauline STEWARDESSES TEACHER Primary Care Provider [phone] Allergies Active Allergy Reactions Criticality Noted Date Comments Codeine Itching,Other (See Comments) 03/05/2021 insomnia Indomethacin Headaches 03/05/2021 Oxycodone-Acetaminophen Itching,Other (S ee Comments) 03/05/2021 Insomnia Hydrocodone-Acetaminophen Itching,Other (See Comments) 03/05/2021 insomnia Medications evolocumab (REPATHA PUSHTRONEX) 420 mg/3.5 mL wearable [...] C Antibody Negative Negative 09/13/2020 10:17 EDT [facility] Blood VENOUS BLOOD / Unknown 09/12/2020 12:07 EDT 09/12/2020 20:24 EDT us Provider Outr Resulting Lab CHEMISTRY & BLOOD GA S ORDERABLES Final Result [facility] [address] [place] [address] from Last 3 Months or Most Recently Relevant to Health Maintenance [place] [address] [address] MEDICARE Care Teams Bottom Precipitator Operator Relationship Specialty Start Date End Date Francy Lowe NP PCP - General 11/30/20
--- OUTSIDE RECORDS SUMMARY | 2024-05-21 20:13 | XMS_ITS | Continuity of Care Document ---
Author Organization [facility] Ambulatory Clinics Address [address] [place] [address] Care Team Providers Care Tactical Air Defense Controller Name Role Phone ROMEO PAYTON PA-C Primary Care Physician [phone] Encounter [facility] NBR [id number] Date(s): 05/04/24 - 05/04/24 [facility] Ambulatory Clinics [address] [place] [address] [place] Discharge Disposition: Home Encounter [...] Access Member Role: Primary Care Physician Address: [address] [place] [id number] Telecom: Insurance Providers Guarantor name: Health Plan Information #: 1 Payer: [facility] MEDIC[facility] SOLUTIONS Member Number: NA Policy Number: NA Group Number: NA
--- OUTSIDE RECORDS SUMMARY | 2024-05-21 20:13 | XMS_ITS | Clinical Summary ---
Author Organization [facility] Address [address] [place] [address] Care Team Providers Care Web Retailer Name Role Phone AdeFrancy orosco Pauline FILLING CARRIER Primary Care Provider [phone] Allergies Active Allergy Reactions Criticality Noted Date [...] Immunization (1 of 2 - PCV) 07[birth year]19/1966 COVID-19 Vaccine ( - 2023- season) 2024 RSV Immunization ( o r 60+ Years) (1 - 1-dose 75+ series) 2036 Hepatitis C Screen Completed 09/12/2020 Procedures Procedure Name Priority Date/Time Associated Diagnosis Comments HEPATITIS C AB W REFLEX TO HCV RNA BY PCR Today 09/12/2020 12:07 EDT from Last 3 Months or Most Recently Relevant to Health Maintenance Results * HEPATITIS C AB W REFLEX TO HCV RNA BY PCR (09/12/2020 12:07 EDT) Hep C Antibody Negative Negative 09/13/2020 10:17 EDT [facility] Blood VENOUS BLOOD / Unknown 09/12/2020 12:07 EDT 09/12/2020 20:24 EDT us Provider Outr Resulting Lab CHEMISTRY & BLOOD GA S ORDERABLES Final Result [facility] [address] [place] [address] from Last 3 Months or Most Recently Relevant to Health Maintenance Insurance [employer] MEDICARE Care Teams Web Retailer Relationship Specialty Start Date End Date Francy Lowe NP PCP - General 11/30/20
--- OUTSIDE RECORDS SUMMARY | 2024-05-21 20:13 | XMS_ITS | Encounter Summary ---
Author Organization [facility] Address [address] [place] [address] Care Team Providers Care Plug Machine Operator Name Role Phone Francy Lowe TENNIS COACH Primary Care Provider [phone] Reason for Visit * Reason Onset Date Comments Other 03/05/2021 Encounter Details Date Type Department Care Team (Late st Contact Info) Description 03/05/2021 Telephone [facility] Spine Program - [address] [address] Fariba Darling PA-C [address] [facility] [place] [address] Other Social History Tobacco Use [...] Encounter - Froy Anguiano MA - 03/05/2021 8516 EDT Patient called to inform us that she would not be following up with Fariba Darling PA-C and would be seeing her doctor in [place]. She said she would not be doing [...] on filedocumented in this encounter Care Teams Plug Machine Operator Relationship Specialty Start Date End Date Francy Lowe, VIRY PCP - General 11/30/20 documented as of this encounter
--- OUTSIDE RECORDS SUMMARY | 2024-05-21 20:13 | XMS_ITS | Encounter Summary ---
Author Organization [facility] Address [address] [place] [address] Care Team Providers Care Retail Pharmacy Manager Name Role Phone Francy Lowe DRYWALL STRIPPER Primary Care Provider [phone] Encounter Details Date Type Department Care Team (Late st Contact Info) Description 03/07/2021 Lab Requisition [facility] Pathology & Laboratory Medicine - [address] [address] Outr Resulting Lab, Provider Social History Tobacco [...] 97 - 169 ng/dL 03/07/2021 21:44 EDT [facility] Blood VENOUS BLOOD / Unknown 03/07/2021 14:31 EDT 03/07/2021 20:59 EDT us Provider Outr Resulting Lab CHEMISTRY & BLOOD GA S ORDERABLES Final Result [facility] [address] [place] [phone] documented in this encounter Visit Diagnoses Not on filedocumented in this encounter Care Teams Retail Pharmacy Manager Relationship Specialty Start Date End Date Francy Lowe NP PCP - General 11/30/20 documented as of this encounter
--- OUTSIDE RECORDS SUMMARY | 2024-05-21 20:13 | XMS_ITS | Continuity of Care Document ---
Author Organization [facility] Address [address] [place] [address] Care Team Providers Care Basting Machine Operator Name Role Phone ROMEO PAYTON PA-C Primary Care Physician [phone] Encounter [facility] NBR [id number] Date(s): 03/04/24 - 03/04/24 [facility] [address] [place] [address]- [place] Encounter Diagnosis Low back pain(Discharge Diagnosis) - 03/04/24 Lumbar disc herniation(Discharge Diagnosis) - 03/04/24 Lumbar radicular pain(Discharge Diagnosis) - 03/04/24 Discharge Disposition: Home or Self Care Attending Physician: Celia Mckinney DO Admitting Physician: Celia Mckinney DO Referring Physician: FITO MENG ([facility])ROMEO Allergies, Adverse Reactions, Alerts Substance Criticality Severity [...] assess criticality Unknown Active Assessment and Plan Extracted from: Title:Op Note / Discharge Summary Author:Faiza Alvarez i Date:03/04/24 Pt is neurologically intact, vital signs stable. Pt denies any chest pain, shortness of breath, nausea, headache, blurred vision, dizziness or any new numbness or tinging in extremities. Pt has been evaluated and cleared for discharge by pain provider. All discharge paperwork has been reviewed with patient who verbalizes understanding of all information to include follow up appt date and time. Pt is aware to call the clinic for any abnormal symptoms or changes in their condition for further guidance and instruction, pt verbalizes understanding of how to contact clinic should they need to.?? Future Appointments Medications acetaminophen 1,000 mg =, Oral, PRN as needed for pain, 0 Refill(s) Start Date: 12/26/23 Status: Ordered amoxicillin 500 mg =, given 1 hour prior to the procedure, 0 Refill(s) Start Date: 12/26/23 Status: Ordered aspirin 81 mg oral capsule 81 mg = 1 cap, Oral, every 24 hr, 0 Refill(s) Start Date: 12/26/23 Status: Ordered clonazePAM 0.5 mg =, Oral, Daily, 0 Refill(s) Start Date: 12/26/23 Status: Ordered Cytomel 5 mcg =, Oral, Daily, 0 Refill(s) Start Date: 12/26/23 Status: Ordered Dexilant 30 mg oral delayed release capsule 30 mg = 1 cap, Oral, Daily, 0 Refill(s) Start Date: 12/26/23 Status: Ordered isosorbide mononitrate extended release 60 mg =, Oral, every morning, 0 Refill(s) Start Date: 12/26/23 Status: Ordered metoprolol succinate 75 mg =, Oral, Daily, 0 Refill(s) Start Date: 12/26/23 Status: Ordered nitroglycerin 0.4 mg sublingual tablet 0.4 mg = 1 tab, Sublingual, every 5 min, PRN as needed for chest pain, 0 Refill(s) Start Date: 12/26/23 Status: Ordered Ozempic 2 mg, Subcutaneous, every week, 0 Refill(s) Start Date: 12/26/23 Status: Ordered Repatha Pushtronex 420 mg =, Subcutaneous, every month, 0 Refill(s) Start Date: 12/26/23 Status: Ordered Problem List Condition Confirmation Course [...] Active Type 2 diabetes mellitus Confirmed Active Results Laboratory List Name Date Glucose POCT 03/04/24 Most recent to oldest [Reference Range]: 1 Glucose POC 163 *NA* (03/04/24 8:54 AM) Vital Signs Most recent to oldest [Reference Range]: 1 2 3 Temperature Temporal Artery [36-38 Deg C] 36.2 Deg C (03/04/24 9:18 AM) Peripheral Pulse Rate [60-100 bpm] 80 bpm (03/04/24 9:48 AM) 76 bpm (03/04/24 9:46 AM) 75 bpm (03/04/24 9:43 AM) Respiratory Rate [12-24 br/min] 18 br/min (03/04/24 9:18 AM) Blood Pressure [90-120/60-80 mmHg] 118/83mmHg (03/04/24 9:48 AM) 130/83mmHg *HI* (03/04/24 9:46 AM) 134/79mmHg *HI* (03/04/24 9:43 AM) Social History Social History Type Response Tobacco Current everyday tob acco user Tobacco Use:. 1 ppd per day. Sex Sex Representation Female (finding) Discharge instructions * Event Display: Discharge Instructions History and physical note * Celia Mckinney, DO: PERFORM Event Display: History and Physical Update Authored Date: [id number] DANIELLE FARIAS :1960 Age:63 years Sex:Female Visit Date:03/04/2024 Primary Care Physician: FITO MENG ([place]), ROMEO Lozano Chief Complaint epidural to get rid of my sciatic pain ?? pt denies any recent infection History of Present Illness ?? Danielle is here for a lumbar epidural steroid injection.?? She describes low back pain with intermittent radiation to the left leg.?? MRI shows a left-sided disc protrusion at L4-5 which is suspectedto be the source of her current symptoms.?? She would like to move forward with a lumbar epidural steroid injection today. Review of Systems Constitutional:?No fevers/chills Respiratory:?No shortness of breath Cardiovascular:?No Chest pain Gastrointestinal:?No bowel dysfunction Genitourinary:?No bladder dysfunction Musculoskeletal:??Positive for back pain Neurological: No new weakness, no new numbness/tingling Physical Exam Vitals & Measurements T:??36.2?C ??(Temporal Artery)?? HR:??80??(Peripheral)?? RR:??18?? BP:??118/83?? SpO2:??96%?? Pain Score:??5?? O2 Therapy:??Room air?? General: NAD Resp: Breathing comfortable, unlabored respirations Cardiac: Regular rate Motor: 5/5 strength with HF, KE, AD, EHL, PF Sensation: sensation intact in lower extremities bilaterally?? Assessment/Plan Low back pain??M54.50 Lumbar disc herniation??M51.26 Lumbar radicular pain??M54.16 ?? There are no contraindications to moving forward with a lumbar epidural steroid injection today.??Patient would like to move forward with the planned procedure.?? Okay to proceed. ?? Problem List/Past Medical History Ongoing Benign lipomatous neoplasm Carpal tunnel Constipation Cystocele Edema Gastroesophageal reflux Delano's thyroiditis Hyperlipidemia Myocardial infarction Nicotine dependence Nonalcoholic steatohepatitis Obstructive sleep apnea Osteoarthritis Pain in right hip Radiculopathy Spinal stenosis of cervical region Type 2 diabetes mellitus Historical No qualifying data Medications acetaminophen, 1000 mg, Oral, PRN amoxicillin, 500 mg aspirin 81 mg oral capsule, 81 mg= 1 cap, Oral, every 24 hr clonazePAM, 0.5 mg, Oral, Daily Cytomel, 5 mcg, Oral, Daily Dexilant 30 mg oral delayed release capsule, 30 mg= 1 cap, Oral, Daily isosorbide mononitrate extended release, 60 mg, Oral, every morning metoprolol succinate, 75 mg, Oral, Daily nitroglycerin 0.4 mg sublingual tablet, 0.4 mg= 1 tab, Sublingual, every 5 min, PRN Ozempic, 2 mg, Subcutaneous, every week Repatha Pushtronex, 420 mg, Subcutaneous, every month Allergies DULoxetine Tape atorvastatin buPROPion citalopram codeine cortisone escitalopram exenatide ezetimibe-simvastatin hydrocodone-acetaminophen indomethacin liraglutide metFORMIN oxycodone-acetaminophen predniSONE rosuvastatin sertraline Social History Electronic Cigarette/Vaping Electronic Cigarette Use: Never. Tobacco Current everyday tobacco user Tobacco Use:. 1 ppd per day. Electronically Signed on 03/04/2024 12:48 EDT Celia Mckinney DO Discharge summary * Faiza Harrison: PERFORM Event Display: Discharge Note Authored Date: [id number] DANIELLE FARIAS :1960 Age:63 years Sex:Female Visit Date:03/04/2024 Primary Care Physician: FITO MENG ([facility])ROMEO Date/Time Surgery Performed 03/04/2024 Indication for Surgery Preoperative Diagnosis Lumbar radicular pain, stenosis of lateral recess of lumbar spine Postoperative Diagnosis Lumbar radicular pain, stenosis of lateral recess of lumbar spine Operation Lumbar Translaminar Epidural (MARINE), Lumbar Translaminar Epidural Steroid Injection Surgeon(s) Celia Mckinney DO (Surgeon - Primary) Physical Exam Vitals & Measurements T:??36.2?C ??(Temporal Artery)?? HR:??80??(Peripheral)?? RR:??18?? BP:??118/83?? SpO2:??96%?? Pain Score:??5?? O2 Therapy:??Room air?? Medications Inpatient No active inpatient medications Home acetaminophen, 1000 mg, Oral, PRN amoxicillin, 500 mg aspirin 81 mg oral capsule, 81 mg= 1 cap, Oral, every 24 hr clonazePAM, 0.5 mg, Oral, Daily Cytomel, 5 mcg, Oral, Daily Dexilant 30 mg oral delayed release capsule, 30 mg= 1 cap, Oral, Daily isosorbide mononitrate extended release, 60 mg, Oral, every morning metoprolol succinate, 75 mg, Oral, Daily nitroglycerin 0.4 mg sublingual tablet, 0.4 mg= 1 tab, Sublingual, every 5 min, PRN Ozempic, 2 mg, Subcutaneous, every week Repatha Pushtronex, 420 mg, Subcutaneous, every month Social History Electronic Cigarette/Vaping Electronic Cigarette Use: Never. Tobacco Current everyday tobacco user Tobacco Use:. 1 ppd per day. Discharge Plan Patient Discharge Condition Pt is neurologically intact, vital signs stable. Pt denies any chest pain, shortness of breath, nausea, headache, blurred vision, dizziness or any new numbness or tinging in extremities. Pt has been evaluated and cleared for discharge by pain provider. All discharge paperwork has been reviewed with patient who verbalizes understanding of all information to include follow up appt date and time. Ptis aware to call the clinic for any abnormal symptoms or changes in their condition for further guidance and instruction, pt verbalizes understanding of how to contact clinic should they need to.?? Medication Reconciliation Unchanged acetaminophen1,000 Milligrams Oral (given by mouth) as needed as needed for pain. ?? [id number] Milligrams. given 1 hour prior to the procedure. ?? aspirin (aspirin 81 mg oral capsule)1 Capsules Oral (given by mouth) every 24 hours. ?? clonazePAM0.5 Milligrams Oral (given by mouth) every day. ?? dexlansoprazole (Dexilant 30 mg oral delayed release capsule)1 Capsules Oral (given by mouth) everyday. ?? evolocumab (Repatha Pushtronex)420 Milligrams Subcutaneous (under the skin) once a month. ?? isosorbide mononitrate (isosorbide mononitrate extended release)60 Milligrams Oral (given by mouth)every morning. ?? liothyronine (Cytomel)5 Micrograms Oral (given by mouth) every day. ?? metoprolol (metoprolol succinate)75 Milligrams Oral (given by mouth) every day. ?? nitroglycerin (nitroglycerin 0.4 mg sublingual tablet)1 tab Sublingual (dissolve under the tongue) every 5 minutes as needed as needed for chest pain. ?? semaglutide (Ozempic)2 Milligrams Subcutaneous (under the skin) every week. Electronically Signed on 03/04/2024 10:01 EDT Faiza Harrison Patient Care team information Care Team Personnel Name: FITO MENG ([facility]), ORMEO Lozano Position: No Access Member Role: Primary Care Physician Address: [address] [place] [address] Insurance Providers Guarantor name: NI Health Plan Information #: 1 Payer: [employer] Member Number: [id number] Policy Number: [employer] Health Plan Information #: 2 Payer: [employer] Member Number: [id number] Policy Number: Health Plan Information #: 3 Payer: [employer] Member Number: [id number] Policy Number:
--- OUTSIDE RECORDS SUMMARY | 2024-05-21 20:13 | XMS_ITS | Continuity of Care Document ---
Author Organization [facility] Address [address] [place] [address] Care Team Providers Care National Opelint Analyst Name Role Phone ROMEO PYATON PA-C Primary Care Physician [phone] Encounter [facility] NBR [id number] Date(s): 04/29/24 - 04/29/24 [facility] [address] [place] [address]- [place] Encounter Diagnosis Low back pain(Discharge Diagnosis) - 04/29/24 Lumbar radiculopathy(Discharge Diagnosis) - 04/29/24 Lumbar disc herniation(Discharge Diagnosis) - 04/29/24 Discharge Disposition: Home or Self Care Attending Physician: Celia Mckinney DO Referring Physician: FITO MENG ([facility])ROMEO Encounter Type: Clinic Allergies, Adverse Reactions, Alerts Substance Criticality Severity Reaction Reaction Severity Status codeine Unable to assess criticality Unknown Active indomethacin Unable to assess criticality Unknown Active cortisone Unable to assess criticality Unknown Active sertraline Unable to assess criticality Unknown Active citalopram Unable to assess criticality Unknown Active buPROPion Unable to assess criticality Unknown Active exenatide Unable to assess criticality Unknown Active metFORMIN Unable to assess criticality Unknown Active DULoxetine Unable to assess criticality Unknown Active oxycodone-acetaminophe n Unable to assess criticality Unknown Active hydrocodone-acetaminop hen Unable to assess criticality Unknown Active Tape Unable to assess criticality Unknown Active atorvastatin Unable to assess criticality Unknown Active escitalopram Unable to assess criticality Unknown Active rosuvastatin Unable to assess criticality Unknown Active ezetimibe-simvastatin Unable to assess criticality Unknown Active predniSONE Unable to assess criticality Unknown Active [facility] Unable to assess criticality Unknown Active Assessment and Plan Extracted from: Title:[facility] Office Visit Note - Pain Management Author:Celia Mckinney, DO Date:04/29/24 Low back pain??M54.50 Lumbar disc herniation??M51.26 Lumbar radiculopathy??M54.16 ?? 85% relief x 2 weeks??after lumbar MARINE pain now back to baseline offered repeat LESI vs. surgical consult also discussed option to trial medication for neuropathic pain, such as gabapentin. Side effects reviewed. After reviewing options, she prefers to move forward with a surgical opinion. ??Referral placed??to Dr. Hart ? Medications acetaminophen 1,000 mg =, Oral, PRN [...] Active Type 2 diabetes mellitus Confirmed Active Vital Signs Most recent to oldest [Reference Range]: 1 Peripheral Pulse Rate [60-100 bpm] 90 bp m (04/29/24 1:00 PM) Respiratory Rate [- br/min] 20 br/mi n (04/29/24 1:00 PM) Blood Pressure [90-120/60-80 mmHg] 107/6 3mmHg (04/29/24 1:00 PM) Mean Arterial Pressure, Cuff [65-140 mmH g] 78 mmHg (04/29/24 1:00 PM) Social History Social History Type Response Tobacco Current everyday tob acco user Tobacco Use:. 1 ppd per day. Sex Sex Representation Female (finding) Physician Outpatient Note * Celia Mckinney, DO: PERFORM, MODIFY Event Display: Office Clinic Note Physician Authored Date: [id number] MANISHA FARIAS :1960 Age:63 years Sex:Female Visit Date:04/29/2024 Primary Care Physician: FITO MENG ([facility])ROMEO Chief Complaint f/u after injection Additional Information pt reports she had about 85% improvement in her pain level for about 2 weeks and now she is back tosqare one History of Present Illness ?? s/p L4-5 LESI on 03/04/24 85% relief x 2 weeks and then pain returned she was experiencing pain with coughing which resolved after the injection after injection she could walk without pain, and also lay on left side without pain now pain 5/10 with sitting and 8/10 with activity pain across back to both buttocks intermittent pain to left thigh and left calf takes Tylenol, Celebrex Review of Systems Constitutional:?No fevers/chills Respiratory:?No shortness of breath Cardiovascular:?No Chest pain Gastrointestinal:?No bowel dysfunction Genitourinary:?No bladder dysfunction Musculoskeletal:??Positive for back pain Neurological: No new weakness, no new numbness/tingling Physical Exam Vitals & Measurements HR:??90??(Peripheral)?? RR:??20?? BP:??107/63?? SpO2:??95%?? Pain Score:??5?? General: no acute distress HEENT: Facial movements symmetric Resp: Breathing comfortably, unlabored respirations Neuro: Motor:Strength grossly intact in the lower extremities bilaterally Sensation: Slightly diminished at the toes bilaterally??(reports chronic numbness in toes due to peripheral neuropathy) + seated SLR left Gait: steady?? Assessment/Plan Low back pain??M54.50 Lumbar disc herniation??M51.26 Lumbar radiculopathy??M54.16 ?? 85% relief x 2 weeks??after lumbar MARINE pain now back to baseline offered repeat LESI vs. surgical consult also discussed option to trial medication for neuropathic pain, such as gabapentin. Side effects reviewed. After reviewing options, she prefers to move forward with a surgical opinion. ??Referral placed??toDr. Hart Images MRI lumbar spine images reviewed ? 30 minutes spent on day of encounter including face to face time, chart review, imaging review, documentation, referral. Problem List/Past Medical History Ongoing Benign lipomatous [...] 1 ppd per day. Electronically Signed on 04/29/2024 13:31 EST Celia Mckinney DO Patient Care team information Care Team Personnel Name: FITO MENG ([facility]), ROMEO Lozano Position: No Access Member Role: Primary Care Physician Address: [address] [place] [address] Telecom: Insurance Providers Guarantor name: DIPTI Health Plan Information #: 1 Payer: [employer] Member Number: [id number] Policy Number: BETH Group Number: BETH Health Plan Information #: 2 Payer: [employer] Member Number: [id number] Policy Number: NA Group Number: BETH Health Plan Information #: 3 Payer: [employer] Member Number: [id number] Policy Number: BETH Group Number: BETH
--- OUTSIDE RECORDS SUMMARY | 2024-05-21 20:13 | XMS_ITS | Encounter Summary ---
Author Organization [facility] Address [address] [place] [address] Care Team Providers Care Administrative Underwriter Name Role Phone Francy Lowe [employer] Primary Care Provider [phone] Encounter Details Date Type Department Care Team (Late st Contact Info) Description 01/24/2021 Lab Requisition [facility] Pathology & Laboratory Medicine - [facility] [address] [place], [place] [id number] Outr Resulting Lab, Provider Social History Tobacco [...] 11:30 EDT) Hold Hold 01/24/2021 17:01 EDT [facility] Blood VENOUS BLOOD / Unknown 01/23/2021 11:30 EDT 01/24/2021 15:53 EDT us Provider Outr Resulting Lab LAB INFO SERVICE AND SUPPORT & PHONE RESULT Final Result [facility] [address] [place] [address] * HOLD SST (01/23/2021 11:30 EDT) Hold Hold 01/24/2021 17:01 EDT [facility] Blood VENOUS BLOOD / Unknown 01/23/2021 11:30 EDT 01/24/2021 15:53 EDT us Provider Outr Resulting Lab LAB INFO SERVICE AND SUPPORT & PHONE RESULT Final Result Performing Organization Address City/[facility]/ZIP Co de Phone Number [facility] [address] [place] [id number] * T3 FREE (01/23/2021 11:30 EDT) Pathologist [facility] T3, Free 3.7 2.8 - 5.3 pg/mL 01/24/2021 16:39 EDT [facility] Blood VENOUS BLOOD / Unknown 01/23/2021 11:30 EDT 01/24/2021 15:52 EDT us Provider Outr Resulting Lab CHEMISTRY & BLOOD GA S ORDERABLES Final Result Performing Organization Address City/[facility]/ZIP Co de Phone Number [facility] [address] [place] [address] * (ABNORMAL) THYROPEROXIDASE ANTIBODY (01/23/2021 11:30 EDT) [facility] Thyroperoxidase Ab 98(H) <=60 U/mL 2020 18:10 EDT [facility] Blood VENOUS BLOOD / Unknown 01/23/2021 11:30 EDT 01/24/2021 15:52 EDT us Provider Outr Resulting Lab CHEMISTRY & BLOOD GA S ORDERABLES Final Result Performing Organization Address City/[facility]/ZIP Co de Phone Number [facility] [address] [place] [address] * ANTI THYROGLOBULIN (01/23/2021 11:30 EDT) Anti-Thyroglob ulin 34 <=60 U/mL 01/24/2021 18:10 EDT [facility] Blood VENOUS BLOOD / Unknown 01/23/2021 11:30 EDT 01/24/2021 15:52 EDT us Provider Outr Resulting Lab CHEMISTRY & BLOOD GA S ORDERABLES Final Result Performing Organization Address City/[facility] Co de Phone Number [facility] [address] [place] [address] documented in this encounter Visit Diagnoses Not on filedocumented in this encounter Care Teams Administrative Underwriter Relationship Specialty Start Date End Date Francy Lowe NP PCP - General 11/30/20 documented as of this encounter
--- OUTSIDE RECORDS SUMMARY | 2024-05-21 20:13 | XMS_ITS | Continuity of Care Document ---
Author Organization [facility] Address [address] [place] [address] Care Team Providers Care Multi Disciplined Language Analyst Name Role Phone Mervin [facility] Primary Care Physician Encounter [facility] Date(s): 01/10/24 - 01/11/[address] [address] Encounter Diagnosis Chest pain(Discharge Diagnosis) - 01/11/24 Discharge Disposition: Home or Self Care Attending Physician: Reji Ramirez MD Admitting Physician: Reji Ramirez MD Allergies, Adverse Reactions, Alerts Substance Criticality Severity Reaction Reaction Severity Status ADHESIVE TAPE 1, 2 Unable to assess criticality Unknown Active codeine Unable to assess criticality Unknown Itching Active indomethacin 3 Unable to assess criticality Unknown Active sertraline Unable to assess criticality Unknown Chest pain Active acetaminophen-hydroco done Unable to assess criticality Unknown Itching Active acetaminophen-oxycodo ne Unable to assess criticality Unknown Itching Active atorvastatin 4 Unable to assess criticality Unknown Active citalopram 5 Unable to assess criticality Unknown Active escitalopram 6 Unable to assess criticality Unknown Active rosuvastatin 7 Unable to assess criticality Unknown Active ezetimibe-simvastatin 8 Unable to assess criticality Unknown Active buPROPion 9 Unable to assess criticality Unknown Active exenatide Unable to assess criticality Unknown Nausea Active metFORMIN Unable to assess criticality Unknown Itching Active DULoxetine 10 Unable to assess criticality Unknown Active liraglutide Unable to assess criticality Unknown Active 1skin chambers [id number] 3Headache 4Constipation 5GI upset 6GI upset 7Constipation 8Constipation 9Increased depression 10Increases blood sugar Assessment and Plan Extracted from: Title:ED Provider Note Author:Reji Ramirez MD Date:01/11/24 Assessment/Plan 1.??Chest pain??R07.9 Ordered: Discharge Patient, 01/11/24 2:17:00 EDT, Home Independently, Constant Indicator ?? Patient Education Nonspecific Chest Pain, Adult Follow Up With When Contact Information [facility], Steven Mccarthy MD Within 1 to [address] [phone] [phone] ?? Additional Instructions: Extracted from: Title:Clinical Document Author:Alicia Arnett te:01/11/24 Diagnosis: 1. Chest pain Comment: Diagnosis: Chest pain Comment: Medications Aspi-Cor 81 mg oral delayed release tablet 0 Refill(s) Start Date: 10/29/21 Status: Ordered clonazePAM 1 mg oral tablet 0 Refill(s) Start Date: 12/17/21 Status: Ordered cyclobenzaprine 10 mg oral tablet 10 mg = 1 tab, Oral, TID, PRN as needed for muscle spasm, # 30 tab, 0 Refill(s), Pharmacy: [id number], 165, cm, 12/17/21 12:57:00 [...] Daily, # 45 tab, 3 Refill(s), Pharmacy: [id number], 165, cm, 12/17/21 12:57:00 EDT, Height/Length Dosing, 98.88, kg, 12/17/21 12:57:00 EDT, Weight Dosing Start Date: 01/07/22 Status: Ordered Metoprolol Succinate ER 50 mg oral tablet, extended release 1 tab, Oral, Daily, # 90 tab, 3 Refill(s), Pharmacy: [id number], 165, cm, 12/17/21 12:57:00 [...] Completed 1stents to JEANETH to LAD [id number] Results Laboratory List Name Date Troponin-I 01/11/24 CBC w/ Diff 01/10/24 Comprehensive Metabolic Panel (CMP) 01/09 Troponin-I 01/10/24 Automated Diff 01/10/24 Most recent to oldest [Reference Range]: 1 2 WBC [5.0-10.0 x10^3/mcL] 7.4 x10^3/mcL (01/10/24 11:20 PM) RBC [4.1-5.3 x10^6/mcL] 5.3 x10^6/mcL (01/10/24 11:20 PM) Neutro Auto [40.0-75.0 %] 51.9 % (01/10/24 11:20 PM) Lymph Auto [20.0-50.0 %] 38.4 % (01/10/24 11:20 PM) [place] Auto [2.0-15.0 %] 7.7 % (01/10/24 11:20 PM) Basophil Auto [0.0-1.0 %] 0.7 % (01/10/24 11:20 PM) BUN [7-18 mg/dL] 10 mg/dL (01/10/24 11: PM) Glucose Level [74-106 mg/dL] 126 mg/dL *HI* (01/10/24 11:20 PM) Potassium Level [3.5-5.1 mmol/L] 3.8 mmo l/L (01/10/24 11:20 PM) MCV [80.0-96.0 fL] 84.8 fL (01/10/24 11:20 PM) AST [15-37 unit/L] 25 unit/L (01/10/24 11:20 PM) ALT [14-59 unit/L] 32 unit/L (01/10/24 11:20 PM) MCHC [31.0-35.0 g/dL] 32.9 g/dL (01/10/24 11:20 PM) Troponin-I [0.0-51.4 pg/mL] 12.2 pg/mL (01/11/24 1:20 AM) 11.6 pg/mL (01/10/24 11:20 PM) Sodium Level [136-145 mmol/L] 142 mmol/L (01/10/24 11:20 PM) Hct [37.0-47.0 %] 45.3 % (01/10/24 11:20 PM) Calcium Level [8.5-10.1 mg/dL] 8.9 mg/dL (01/10/24 11:20 PM) Albumin Level [3.4-5.0 g/dL] 3.5 g/dL (01/10/24 11:20 PM) Protein Total [6.4-8.2 g/dL] 6.7 g/dL (01/10/24 11:20 PM) MCH [26.0-32.0 pg] 27.9 pg (01/10/24 11:20 PM) Neutro Absolute 3.9 x10^3/mcL *NA* (01/10/24 11: PM) Bilirubin Total [0.2-1.0 mg/dL] 0.3 mg/d L (01/10/24: PM) Hgb [12.0-16.0 g/dL] 14.9 g/dL (01/10/24 11: PM) Alk Phos [46-146 unit/L] 74 unit/L (01/10/24: PM) Platelets [130-450 x10^3/mcL] 203 x10^3/ mcL (01/10/24 11:20 PM) CO2 [21-32 mmol/L] 31 mmol/L (01/10/24 11: PM) eGFR Non-AA [>=60] 86 (01/10/24 11:20 PM) eGFR AA [>=60] 86 (01/10/24 11:20 PM) Chloride Level [98-107 mmol/L] 105 mmol/ L (01/10/24: PM) RDW-CV [11.5-14.5 %] 13.2 % (01/10/24 11:20 PM) Imm Gran Auto [0.0-0.9 %] 0.1 % (01/10/24 11:20 PM) Creatinine Level [0.55-1.02 mg/dL] 0.78 mg/dL (01/10/24 11: PM) Eos, Auto [1.0-6.0 %] 1.2 % (01/10/24 11:20 PM) Vital Signs Most recent to oldest [Reference Range]: 1 2 3 Temperature Temporal Artery [36-38 Deg C] 36.7 Deg C (01/10/24 11:13 PM) Peripheral Pulse Rate [60-100 bpm] 77 bpm (01/11/24 1:29 AM) 72 bpm (01/11/24 12:59 AM) 74 bpm (01/11/24 12:29 AM) Heart Rate Monitored [60-100 bpm] 74 bpm (01/11/24 1:30 AM) 74 bpm (01/11/24 1:26 AM) 74 bpm (01/11/24 12:59 AM) Respiratory Rate [12-24 br/min] 20 br/min (01/11/24 1:30 AM) 19 br/min (01/11/24 1:26 AM) 21 br/min (01/11/24 12:59 AM) Blood Pressure [90-140/60-90 mmHg] 122/75mmHg (01/11/24 1:30 AM) 122/75mmHg (01/11/24 1:00 AM) 129/83mmHg (01/11/24 12:30 AM) Mean Arterial Pressure, Cuff [65-140 mmHg] 91 mmHg (01/11/24 1:00 AM) 98 mmHg (01/11/24 12:30 AM) 91 mmHg (01/11/24 12:00 AM) Weight 99.79 kg (01/10/24 11:13 PM) Weight Dosing 99.790 kg (01/10/24 11:13 PM) Height 165 cm (01/10/24 11:13 PM) Body Mass Index 36.65 kg/m2 (01/10/24 11:13 PM) Social History Social History Type Response Tobacco Current everyday tob acco user Tobacco Use:. 1 PPD per day. 45 year(s). Sex Female Sex Representation Female (finding) Hospital Discharge Instructions Patient Education 01/11/2024 01:18:16 Nonspecific Chest Pain, Adult Nonspecific Chest Pain, Adult Chest pain is an uncomfortable, tight, or painful feeling in the chest. The pain can feel like a crushing, aching, or squeezing pressure. A person can feel a burning or tingling sensation. Chest paincan also be felt in your back, neck, jaw, shoulder, or arm. This pain can be worse when you move, sneeze, or take a deep breath. Chest pain can be caused by a condition that is life-threatening. This must be treated right away. It can also be caused by something that is not life- threatening. If you have chest pain, it can be hard to know the difference, so it is important to get help right away to make sure that you do not have a serious condition. Some life-threatening causes of chest pain include: ??? Heart attack. ??? A tear in the body's main blood vessel (aortic dissection). ??? Inflammation around your heart (pericarditis). ??? A problem in the lungs, such as a blood clot (pulmonary embolism) or a collapsed lung (pneumothorax). Some non life-threatening causes of chest pain include: ??? Heartburn. ??? Anxiety or stress. ??? Damage to the bones, muscles, and cartilage that make up your chest wall. ??? Pneumonia or bronchitis. ??? Shingles infection (varicella-zoster virus). Your chest pain may come and go. It may also be constant. Your health care provider will do tests and other studies to find the cause of your pain. Treatment will depend on the cause of your chest pain. Follow these instructions at home: Medicines ??? Take fxrd-zhd-isuyoep and prescription medicines only as told by your health care provider. ??? If you were prescribed an antibiotic medicine, take it as told by your health care provider. Donot stop taking the antibiotic even if you start to feel better. Activity ??? Avoid any activities that cause chest pain. ??? Do not lift anything that is heavier than 10 lb (4.5 kg), or the limit that you are told, untilyour health care provider says that it is safe. ??? Rest as directed by your health care provider. ??? Return to your normal activities only as told by your health care provider. Ask your health care provider what activities are safe for you. Lifestyle ??? Do not use any products that contain nicotine or tobacco, such as cigarettes, e-cigarettes, andchewing tobacco. If you need help quitting, ask your health care provider. ??? Do not drink alcohol. ??? Make healthy lifestyle changes as recommended. These may include: ??? Getting regular exercise. Ask your health care provider to suggest some exercises that are safefor you. ??? Eating a heart-healthy diet. This includes plenty of fresh fruits and vegetables, whole grains,low-fat (lean) protein, and low-fat dairy products. A dietitian can help you find healthy eating options. ??? Maintaining a healthy weight. ??? Managing any other health conditions you may have, such as high blood pressure (hypertension) or diabetes. ??? Reducing stress, such as with yoga or relaxation techniques. General instructions ??? Pay attention to any changes in your symptoms. ??? It is up to you to get the results of any tests that were done. Ask your health care provider, or the department that is doing the tests, when your results will be ready. ??? Keep all follow-up visits as told by your health care provider. This is important. ??? You may be asked to go for further testing if your chest pain does not go away. Contact a health care provider if: ??? Your chest pain does not go away. ??? You feel depressed. ??? You have a fever. ??? You notice changes in your symptoms or develop new symptoms. Get help right away if: ??? Your chest pain gets worse. ??? You have a cough that gets worse, or you cough up blood. ??? You have severe pain in your abdomen. ??? You faint. ??? You have sudden, unexplained chest discomfort. ??? You have sudden, unexplained discomfort in your arms, back, neck, or jaw. ??? You have shortness of breath at any time. ??? You suddenly start to sweat, or your skin gets clammy. ??? You feel nausea or you vomit. ??? You suddenly feel lightheaded or dizzy. ??? You have severe weakness, or unexplained weakness or fatigue. ??? Your heart begins to beat quickly, or it feels like it is skipping beats. These symptoms may represent a serious problem that is an emergency. Do not wait to see if the symptoms will go away. Get medical help right away. Call your local emergency services (911 in the [place] Do not drive yourself to the hospital. Summary ??? Chest pain can be caused by a condition that is serious and requires urgent treatment. It may also be caused by something that is not life-threatening. ??? Your health care provider may do lab tests and other studies to find the cause of your pain. ??? Follow your health care provider's instructions on taking medicines, making lifestyle changes, and getting emergency treatment if symptoms become worse. ??? Keep all follow-up visits as told by your health care provider. This includes visits for any further testing if your chest pain does not go away. This information is not intended to replace advice given to you by your health care provider. Make sure you discuss any questions you have with your health care provider. Document Revised: 07/10/2021 Document Reviewed: 07/12/2021 Elsevier Patient Education ?? 2022 [employer] Follow Up Care 01/10/2024 23:09:20 With:Steven Jordan MD Address: [address] [address] [phone] When:1 to 2 weeks Physician Emergency department Note * Reji Ramirez MD: PERFORM Event Display: ED Note Physician Authored Date: [id number] MANISHA FARIAS :1960 Age:63 years Sex:Female Visit Date:01/10/2024 Primary Care Physician: Steven Jordan MD Basic Information Time Seen: Reji Ramirez MD / 01/10/2024 23:10 Chief Complaint Pt reports palpitations around 10pm. Chest pain began shortly after. 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 Hx of PCIx3 History Of Present Illness: 63 y/o female presents with chest pain.?? History of diabetes,??cardiac stents. ??Occurred tonight around??930 to 10 PM, started with a fluttering sensation and then had pain in their??substernal chest nonradiating nothing make it better or worse,??lasted for 5 minutes then went away on its own, came to the ER asymptomatic, no shortness of breath??nausea vomiting cough cold congestion fevers or other symptoms Review of Systems: Chest pain Physical Exam Vitals & Measurements T:??36.7?C ??(Temporal Artery)?? HR:??74??(Monitored)?? RR:??20?? BP:??122/75?? SpO2:??95%?? HT:??165??cm?? WT:??99.79??kg?? BMI:??36.65?? Pain Score:??5?? General: Alert and oriented, well nourished,?No??acute distress Eye: PERRL, EOMI,?Normal?conjunctiva HENT: Normocephalic Lungs: Clear to auscultation and percussion,?Non-labored?? respiration Heart:?Normal? rate,?Regular??rhythm Abdomen: Soft, non-tender, non-distended Psychiatric: Cooperative, appropriate mood and affect Medical Decision Makin-year-old female presents with??chest pain. ??36.7, 126/83, 79, 20, 95%.?? No chest pain on arrival. ??Vital stable. ??EKG shows a sinus rhythm without any ST segment elevations??or depressions or other ischemic changes. ??Troponin x 2 negative chest x-ray normal other labs??acutely unremarkable.?? With her cardiac history, ACS is in the differential however statistically quite unlikely considering no active chest pain, and troponin x 2 negative with normal EKG.?? Etiology of the pain is unclear, arrhythmia would be a possibility??at the time of the symptoms.?? Chest wall pain such as costochondritis or muscular strain??or pleurisy would be??consideration as well.?? GI considerations would include??reflux??or esophageal spasm.?? At this time the exact etiology is not entirely clear, given return precautions the ED regarding any worsening symptoms,??primary care follow-up. Procedure No Qualifying Data Assessment/Plan 1.??Chest pain??R07.9 Ordered: Discharge Patient, 01/11/24 2:17:00 EDT, Home Independently, Constant Indicator ?? Patient Education Nonspecific Chest Pain, Adult Follow Up With When Contact Information [facility], Steven Mccarthy MD Within 1 to [address] [phone] [phone] Additional Instructions: Medication Reconciliation Unchanged aspirin (Aspi-Cor [...] Current everyday tobacco user Tobacco Use:. 1 PPD per day. 45 year(s). Family History Diabetes mellitus: Sister and Brother. Myocardial infarction: Sister and Brother. Lab Results CBC and Differential?? LATEST RESULTS?? WBC?? 01/10/24 23:20?? 7.4?? RBC?? 01/10/24 23:20?? 5.3?? Hgb?? 01/10/24 23:20?? 14.9?? Hct?? 01/10/24 23:20?? 45.3?? MCV?? 01/10/24 23:20?? 84.8?? MCH?? 01/10/24 23:20?? 27.9?? MCHC?? 01/10/24 23:20?? 32.9?? RDW-CV?? 01/10/24 23:20?? 13.2?? Platelets?? 01/10/24 23:20?? 203?? Neutro Auto?? 01/10/24 23:20?? 51.9?? Lymph Auto?? 01/10/24 23:20?? 38.4?? [place] Auto?? 01/10/24 23:20?? 7.7?? Eos, Auto?? 01/10/24 23:20?? 1.2?? Basophil Auto?? 01/10/24 23:20?? 0.7?? Imm Gran Auto?? 01/10/24 23:20?? 0.1?? Neutro Absolute?? 01/10/24 23:20?? 3.9? Routine Chemistry?? LATEST RESULTS?? Sodium Level?? 01/10/24 23:20?? 142?? Potassium Level?? 01/10/24 23:20?? 3.8?? Chloride Level?? 01/10/24 23:20?? 105?? CO2?? 01/10/24 23:20?? 31?? Alk Phos?? 01/10/24 23:20?? 74?? AST?? 01/10/24 23:20?? 25?? ALT?? 01/10/24 23:20?? 32?? BUN?? 01/10/24 23:20?? 10?? Glucose Level?? 01/10/24 23:20?? 126 ??High?? Creatinine Level?? 01/10/24 23:20?? 0.78?? eGFR AA?? 01/10/24 23:20?? 86?? eGFR Non-AA?? 01/10/24 23:20?? 86?? Calcium Level?? 01/10/24 23:20?? 8.9?? Protein Total?? 01/10/24 23:20?? 6.7?? Albumin Level?? 01/10/24 23:20?? 3.5?? Bilirubin Total?? 01/10/24 23:20?? 0.3? Cardiac Isoenzymes?? LATEST RESULTS?? Troponin-I?? 01/11/24 01:20?? 12.2? Electronically Signed on 01/11/2024 02:42 EDT Reji Ramirez MD Emergency department Discharge instructions * Reji Ramirez MD: PERFORM Event Display: ED Discharge Information Authored Date: [id number] MANISHA FARIAS :1960 Age:63 years Sex:Female Visit Date:01/10/2024 Primary Care Physician: Steven Jordan MD Discharge Instructions We would like to thank you for allowing us to assist you with your healthcare needs. The following includes patient education materials and information regarding your injury/illness. Diagnosis from Today's Visit Chest pain Discharge Vitals Temperature??(Temporal Artery) 98.1 ??F (36.7 ??C) Heart Rate??(Monitored) 74 Respiratory Rate?? 20 Blood Pressure?? 122/75?? SpO2?? 95% Height?? 64.96 in (165 cm) Weight?? 220.04 lb (99.79 kg) BMI?? 36.65 Allergies ADHESIVE TAPE DULoxetine acetaminophen-hydrocodone??(Itching) acetaminophen-oxycodone??(Itching) atorvastatin buPROPion citalopram codeine??(Itching) escitalopram exenatide??(Nausea) ezetimibe-simvastatin indomethacin liraglutide metFORMIN??(Itching) rosuvastatin sertraline??(Chest pain) What to Do Next Instructions from Your Care Team You were seen in the emergency department today for chest pain.?? Your cardiac testing does not show any signs of heart attack here in the ER.?? The reason for your pain is not 100% clear, so please follow-up with your doctor in 1 to 2 weeks for reevaluation.?? Otherwise,??any significant symptoms or other concerns come back to the ER. You Need to Schedule the Following Appointments Follow Up with??[facility], Steven Mccarthy MD When:??Within 1 to 2 weeks Where: [address] [address] [phone] You were treated today on an emergency [...] Every week Duration: 4 weeks Education Materials Nonspecific Chest Pain, Adult Chest pain is an uncomfortable, tight, or painful feeling in the chest. The pain can feel like a crushing, aching, or squeezing pressure. A person can feel a burning or tingling sensation. Chest paincan also be felt in your back, neck, jaw, shoulder, or arm. This pain can be worse when you move, sneeze, or take a deep breath. Chest pain can be caused by a condition that is life-threatening. This must be treated right away. It can also be caused by something that is not life- threatening. If you have chest pain, it can be hard to know the difference, so it is important to get help right away to make sure that you do not have a serious condition. Some life-threatening causes of chest pain include: ? Heart attack. ? A tear in the body's main blood vessel (aortic dissection). ? Inflammation around your heart (pericarditis). ? A problem in the lungs, such as a blood clot (pulmonary embolism) or a collapsed lung (pneumothorax). Some non life-threatening causes of chest pain include: ? Heartburn. ? Anxiety or stress. ? Damage to the bones, muscles, and cartilage that make up your chest wall. ? Pneumonia or bronchitis. ? Shingles infection (varicella-zoster virus). Your chest pain may come and go. It may also be constant. Your health care provider will do tests and other studies to find the cause of your pain. Treatment will depend on the cause of your chest pain. Follow these instructions at home: Medicines ? Take feua-crm-adokhen and prescription medicines only as told by your health care provider. ? If you were prescribed an antibiotic medicine, take it as told by your health care provider. Do notstop taking the antibiotic even if you start to feel better. Activity ? Avoid any activities that cause chest pain. ? Do not lift anything that is heavier than 10 lb (4.5 kg), or the limit that you are told, until your health care provider says that it is safe. ? Rest as directed by your health care provider. ? Return to your normal activities only as told by your health care provider. Ask your health care provider what activities are safe for you. Lifestyle ? Do not use any products that contain nicotine or tobacco, such as cigarettes, e- cigarettes, and chewing tobacco. If you need help quitting, ask your health care provider. ? Do not drink alcohol. ? Make healthy lifestyle changes as recommended. These may include: ? Getting regular exercise. Ask your health care provider to suggest some exercises that are safe foryou. ? Eating a heart-healthy diet. This includes plenty of fresh fruits and vegetables, whole grains, low-fat (lean) protein, and low-fat dairy products. A dietitian can help you find healthy eating options. ? Maintaining a healthy weight. ? Managing any other health conditions you may have, such as high blood pressure (hypertension) or diabetes. ? Reducing stress, such as with yoga or relaxation techniques. General instructions ? Pay attention to any changes in your symptoms. ? It is up to you to get the results of any tests that were done. Ask your health care provider, or the department that is doing the tests, when your results will be ready. ? Keep all follow-up visits as told by your health care provider. This is important. ? You may be asked to go for further testing if your chest pain does not go away. Contact a health care provider if: ? Your chest pain does not go away. ? You feel depressed. ? You have a fever. ? You notice changes in your symptoms or develop new symptoms. Get help right away if: ? Your chest pain gets worse. ? You have a cough that gets worse, or you cough up blood. ? You have severe pain in your abdomen. ? You faint. ? You have sudden, unexplained chest discomfort. ? You have sudden, unexplained discomfort in your arms, back, neck, or jaw. ? You have shortness of breath at any time. ? You suddenly start to sweat, or your skin gets clammy. ? You feel nausea or you vomit. ? You suddenly feel lightheaded or dizzy. ? You have severe weakness, or unexplained weakness or fatigue. ? Your heart begins to beat quickly, or it feels like it is skipping beats. These symptoms may represent a serious problem that is an emergency. Do not wait to see if the symptoms will go away. Get medical help right away. Call your local emergency services (911 in the [place] Do not drive yourself to the hospital. Summary ? Chest pain can be caused by a condition that is serious and requires urgent treatment. It may also be caused by something that is not life-threatening. ? Your health care provider may do lab tests and other studies to find the cause of your pain. ? Follow your health care provider's instructions on taking medicines, making lifestyle changes, and getting emergency treatment if symptoms become worse. ? Keep all follow-up visits as told by your health care provider. This includes visits for any further testing if your chest pain does not go away. This information is not intended to replace advice given to you by your health care provider. Make sure you discuss any questions you have with your health care provider. Document Revised: 07/10/2021 Document Reviewed: 07/12/2021 [employer] Patient Education ?? 2022 [employer] Tests Performed Lab Test Name Test Result Date/Time WBC 7.4 x10^3/mcL 01/10/2024 23:20 EDT RBC 5.3 x10^6/mcL 01/10/2024 23:20 EDT Hgb 14.9 g/dL 01/10/2024 23:20 EDT Hct 45.3 % 01/10/2024 23:20 EDT MCV 84.8 fL 01/10/2024 23:20 EDT MCH 27.9 pg 01/10/2024 23:20 EDT MCHC 32.9 g/dL 01/10/2024 23:20 EDT RDW-CV 13.2 % 01/10/2024 23:20 EDT Platelets 203 x10^3/mcL 01/10/2024 23:20 EDT Neutro Auto 51.9 % 01/10/2024 23:20 EDT Lymph Auto 38.4 % 01/10/2024 23:[address] [place] Auto 7.7 % 01/10/2024 23:20 EDT Eos, Auto 1.2 % 01/10/2024 23:20 EDT Basophil Auto 0.7 % 01/10/2024 23:20 EDT Imm Gran Auto 0.1 % 01/10/2024 23:20 EDT Neutro Absolute 3.9 x10^3/mcL 01/10/2024 23:20 EDT Sodium Level 142 mmol/L 01/10/2024 23:20 EDT Potassium Level 3.8 mmol/L 01/10/2024 23:20 EDT Chloride Level 105 mmol/L 01/10/2024 23:20 EDT CO2 31 mmol/L 01/10/2024 23:20 EDT Alk Phos 74 unit/L 01/10/2024 23:20 EDT AST 25 unit/L 01/10/2024 23:20 EDT ALT 32 unit/L 01/10/2024 23:20 EDT BUN 10 mg/dL 01/10/2024 23:20 EDT Glucose Level 126 mg/dL 01/10/2024 23:20 EDT Creatinine Level 0.78 mg/dL 01/10/2024 23:20 EDT eGFR AA 86 01/10/2024 23:20 EDT eGFR Non-AA 86 01/10/2024 23:20 EDT Calcium Level 8.9 mg/dL 01/10/2024 23:20 EDT Protein Total 6.7 g/dL 01/10/2024 23:20 EDT Albumin Level 3.5 g/dL 01/10/2024 23:20 EDT Bilirubin Total 0.3 mg/dL 01/10/2024 23:20 EDT Troponin-I 12.2 pg/mL 01/11/2024 01:20 EDT Patient/Information Technology Administrator Signature Patient Name:MANISHA FARIAS I have received this information and my questions have been answered. Patient/Information Technology Administrator Name: Patient/Information Technology Administrator Signature: Relationship to Patient: Witness Name/Signature: Date: Electronically Signed on: 01/11/2024 02:18 EDTSigned by:TRM Discharge summary * Alciia Arnett: PERFORM Event Display: Discharge Note Authored Date: * Alicia Arnett: PERFORM Event Display: Discharge Note Authored Date: Diagnosis: 1. Chest pain Comment: Diagnosis: Chest pain Comment: Electronically Signed on 01/11/2024 02:43 EDT Alicia Arnett Patient Care team information Care Team Personnel Name: Steven Jordan MD Position: No Access Member Role: Informed Provider Address: [address] Care Team Related Persons Name: ROGELIO FARIAS Insurance Providers Guarantor name: MANISHA FARIAS Health Plan Information #: 1 Payer: [employer] PPO Member Number: [id number] Policy Number: Health Plan Information #: 2 Payer: [employer]VANTAGE PPO Member Number: [id number] Policy Number: NA Health Plan Information #: 3 Payer: [employer]VANT[employer] PPO Member Number: [id number] Policy Number: NA
--- OUTSIDE RECORDS SUMMARY | 2024-05-21 20:14 | XMS_ITS | Encounter Summary ---
Author Organization [facility] Address [address] [place] [address] Care Team Providers Care Food Clerk Name Role Phone Francy Lowe LAST WAXER Primary Care Provider [phone] Reason for Referral * Radiology Services (Routine) - Closed Specialty Diagnoses / Procedures Referred By Jasson mendoza Referred To Contact Diagnoses Right hip pain Procedures XR HIP RIGHT 2-3 VIEWS, OPTIONAL PELVIS Helena Ramirez NP Phone: tel: fax: Referral ID Status Reason Start Date Expiration Date Visits Re quested Visits Authorized [id number] Closed 11/30/2020 1 1 Reason for Visit * Radiology Services (Routine) - Closed Specialty Diagnoses / Procedures Referred By Jasson mendoza Referred To Contact Diagnoses Right hip pain Procedures XR HIP RIGHT 2-3 VIEWS, OPTIONAL PELVIS Helena Ramirez NP Phone: tel: fax: Referral ID Status Reason Start Date Expiration Date Visits Re quested Visits Authorized [id number] Closed 11/30/2020 1 1 Encounter Details Date Type Department Care Team (Latest Contact Info) Description 11/30/2020 14:15 EDT - 11/30/2020 23:59 EDT Hospital Encounter [address] [employer], [place] [id number] Right hip pain Discharge Disposition: Home or [...] this area. Helena Ramirez NP IMG DIAGNOSTIC IMAGING ORDER TOBI Final Result documented in this encounter Visit Diagnoses Diagnosis Right hip pain Pain in joint, pelvic region and thigh documented in this encounter Care Teams Food Clerk Relationship Specialty Start Date End Date Francy Lowe NP PCP - General 11/30/20 documented as of this encounter
--- OUTSIDE RECORDS SUMMARY | 2024-05-21 20:14 | XMS_ITS | Encounter Summary ---
Author Organization [facility] Address [address] [place] [address] Care Team Providers Care Rn Concurrent Review Name Role Phone David Kenia Arnaldo LEAD GENERATOR Primary Care Provider [phone] Francy Lowe LEAD GENERATOR Primary Care Provider [phone] Encounter Details Date Type Department Care Team (Late st Contact Info) Description 01/29/2020 Lab Requisition [facility] Pathology & Laboratory Medicine - [address] [address] Outr Resulting Lab, Provider Social History Tobacco Use Types Packs/Day Years Used Date Smoking Tobacco: Never Assessed Interpersonal Safety Answer Date Record ed Physically Hurt Never 12/13/2019 Verbally Threaten Not on file 12/13/2019 Comments Unknown Sex and Gender Information Value [...] Results * T3, TOTAL (01/28/2020 10:00 EDT) [facility] T3, Total 155 97 - 169 ng/dL 01/30/2020 20:29 EDT [facility] Blood VENOUS BLOOD / Unknown 01/28/2020 10:00 EDT 01/30/2020 19:43 EDT us Provider Outr Resulting Lab CHEMISTRY & BLOOD GA S ORDERABLES Final Result [facility] [address] [place] [address] * RHEUMATOID FACTOR (01/28/2020 10:00 EDT) [facility] Rheumatoid Factor <8.6 <12.0 IU/mL 01/30/2020 20:00 EDT [facility] Blood VENOUS BLOOD / Unknown 01/28/2020 10:00 EDT 01/30/2020 19:43 EDT us Provider Outr Resulting Lab CHEMISTRY & BLOOD GA S ORDERABLES Final Result Performing Organization Address City/[facility]/ZIP Co de Phone Number [facility] [address] [place] [address] * CCP ANTIBODIES (01/28/2020 10:00 EDT) [facility] CCP Antibodies <2.5 <5.0 U/mL 01/31/2020 9:16 EDT [facility] Blood VENOUS BLOOD / Unknown 01/28/2020 10:00 EDT 01/30/2020 19:43 EDT us Provider Outr Resulting Lab IMMUNOLOGY AND SEROL OGY ORDERABLES Final Result [facility] [address] [place] [address] * HIGH SENSITIVITY C-REACTIVE PROTEIN (CARDIOVASCULAR DISEASE) (01/28/2020 10:00 EDT) [facility] High Sensitivity CRP 9.57 See Note mg/L 01/30/2020 20:00 EDT [facility] Comment: Reference Range: ??Source: The [place] [employer] Clinical Practice Recommendations, 2003 ??Low Risk: ? <1.0 mg/L ??Average Risk: ?? 1.0 - 3.0 mg/L ??High Risk: ?>3.0 mg/L ??Indeterminate*: >10.0 mg/L ??*May be an indication of another source of inflammation or infection Blood VENOUS BLOOD / Unknown 01/28/2020 10:00 EDT 01/30/2020 19:43 EDT us Provider Outr Resulting Lab CHEMISTRY & BLOOD GA S ORDERABLES Final Result [facility] [address] [place] [address] documented in this encounter Visit Diagnoses Not on filedocumented in this encounter Care Teams Rn Concurrent Review Relationship Specialty Start Date End Date Kenia Hernandez NP [address] [place] [address] PCP - General 06/04/16 11/29/20 Francy Lowe NP [address] [place] [address] PCP - General 11/30/20 documented as of this encounter
--- OUTSIDE RECORDS SUMMARY | 2024-05-21 20:14 | XMS_ITS | Encounter Summary ---
Author Organization [facility] [place] [address] Care Team Providers Care Legal Transcriber Name Role Phone Kaylee Jaquez Primary Care Provider Encounter Details Date Type Department Care Team (Late st Contact Info) Description 10/03/2023 Telephone Physical Therapy at [facility] [address] [place] [address] Tatyana Hernandez Social History Tobacco Use Types [...] on filedocumented in this encounter Care Teams Legal Transcriber Relationship Specialty Start Date End Date Kaylee Jaquez PA [address] [place] [address] PCP - General Family Medicine 01/18/22 documented as of this encounter
--- OUTSIDE RECORDS SUMMARY | 2024-05-21 20:14 | XMS_ITS | Encounter Summary ---
Author Organization [facility] [place] [address] Care Team Providers Care Garment Folder Name Role Phone Kaylee Jaquez Primary Care Provider [phone] Encounter Details Date Type Department Care Team (Late st Contact Info) Description 09/05/2023 Interpretation Only Radiology Library at [facility] [place] [address] [place] [address] Unknown None Social History Tobacco Use Types [...] only. Unknown IMG FILM LIBRARY ORD ERABLES [place], [place] documented in this encounter Visit Diagnoses Not on filedocumented in this encounter Care Teams Garment Folder Relationship Specialty Start Date End Date Kaylee Jaquez PA [address] [place] [address] PCP - General Family Medicine 01/18/22 documented as of this encounter
--- OUTSIDE RECORDS SUMMARY | 2024-05-21 20:14 | XMS_ITS | Encounter Summary ---
[place] [address] Care Team Providers Care Specifications Writer Name Role Phone Kaylee Jaquez Primary Care Provider [phone] Encounter Details Date Type Department Care Team (Late st Contact Info) Description 02/12/2024 Telephone Cardiology at [address] [phone] Annette Houser, RN Social History Tobacco Use Types Packs/Day [...] Miscellaneous Notes * Telephone Encounter - Annette Houser, RN - 02/12/2024 3:38 PM EDT TC to patient to relay message from Dr. Garcia copied below. Patient verbalized understanding and repeated instructions back clearly and correctly. Patient states she is still smoking, but is working on quitting. ----- Message from Lc Garcia sent at 02/09/2024 8:49 PM EDT ----- Please call patient to let her know that her monitor did not show atrial fibrillation or any sustained arrhythmia. Would, however, we would recommend increasing metoprolol succinate to 75 mg daily from 50 mg daily. If possible, would also gently remind her that quitting smoking, if she has not doneso already, would be the single most impactful thing she could do for her heart and general health.Thanks. Annette Houser RN [facility] Team Nurse [phone] documented in this encounter Plan of Treatment Not on file documented as of this encounter Visit Diagnoses Not on filedocumented in this encounter Care Teams Specifications Writer Relationship Specialty Start Date End Date Kaylee Jaquez PA [address] [place] [address] PCP - General Family Medicine 01/18/22 documented as of this encounter
--- OUTSIDE RECORDS SUMMARY | 2024-05-21 20:14 | XMS_ITS | Encounter Summary ---
Author Organization [facility] [place] [address] Care Team Providers Care Lockmaker Name Role Phone Kaylee Jaquez Primary Care Provider [phone] Reason for Visit * Reason Onset Date Comments Medication Refill 07/30/2023 Encounter Details Date Type Department Care Team (Late st Contact Info) Description 07/30/2023 Refill [place] [address] Chiquis Chen MD [facility] [place] [address] Social History Tobacco Use Types Packs/Day Years [...] on filedocumented in this encounter Care Teams Lockmaker Relationship Specialty Start Date End Date Kaylee Jaquez PA [address] [facility], [place] [address] PCP - General Family Medicine 01/18/22 documented as of this encounter
--- OUTSIDE RECORDS SUMMARY | 2024-05-21 20:14 | XMS_ITS | Encounter Summary ---
[place] [address] Care Team Providers Care Oil And Gas Superintendent Name Role Phone Kaylee Jaquez Primary Care Provider Encounter Details Date Type Department Care Team (Latest Contact Info) Description 07/31/2023 1:25 PM EDT Laboratory Appointment Lab [address] [phone] Type 2 diabetes, controlled, with neuropathy; Delano's [...] Procedure Name Priority Date/Time Associated Diagnosis Comments TSH CASCADE Routine 07/31/2023 12:12 PM EDT Type 2 diabetes, controlled, 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 VITAMIN D, 25-HYDROXY Routine 07/31/2023 12:12 PM EDT Type 2 diabetes, controlled, 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 LDL CHOLESTEROL, DIRECT Routine 07/31/2023 12:12 PM EDT Type 2 diabetes, controlled, 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 HEMOGLOBIN A1C Routine 07/31/2023 12:12 PM EDT Type 2 diabetes, controlled, 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 documented in this encounter Results * (ABNORMAL) Hemoglobin A1c (07/31/2023 12:12 PM EDT) Hemoglobin A1c 6.9(H) 4.3 - 5.6 % [facility] Comment: Reference Range: 4.3 - [...] Mellitus, Diabetes Care 2013; 36: Suppl. 1, S6774 Estimated Average Glucose 150 mg/dL [facility] Blood 07/31/2023 12:1 2 PM EDT 07/31/2023 12:43 PM EDT Narrative Resulting Agency Comment Spec In Lab Marta Rivera MD CHEMISTRY ORDERAB LES [facility] [place] [address] * TSH [place] (07/31/2023 12:12 PM EDT) Thyroid Stimulating Hormone 1.59 0.27 - 4.20 mcIU/mL [facility] Comment: Reference Interval (mcIU/mL): Females: ??First Trimester: 0.23-3.88 ??Second Trimester: 0.22-3.90 ??Third Trimester: 0.44-4.66 Blood 07/31/2023 12:1 2 PM EDT 07/31/2023 12:43 PM EDT Narrative Resulting Agency Comment Spec In Lab Marta Rivera MD CHEMISTRY ORDERAB LES [facility] [place] [address] * (ABNORMAL) Vitamin D, 25-Hydroxy (07/31/2023 12:12 PM EDT) Vitamin D Total 25 OH 20(L) 21 - 100 ng/mL [facility] Vit D Interp Deficient [facility] Blood 07/31/2023 12:1 2 PM EDT 07/31/2023 12:43 PM EDT Narrative Resulting Agency Comment Spec In Lab Marta Rivera MD CHEMISTRY ORDERAB LES Performing Organization Address City/[facility]/ZIP Co de Phone Number [facility] [place] [address] * LDL Cholesterol, Direct (07/31/2023 12:12 PM EDT) LDL Cholesterol, Direct 43 mg/dL [facility] Comment: Desirable: ? <100 mg/dL Above Desirable: 100-129 mg/dL Borderline High: 130-159 mg/dL High: ?160-189 mg/dL Very High: ? >fl=563 mg/dL If not reaching LDL goals on [...] Lab Marta Rivera MD CHEMISTRY ORDERAB LES [facility] [place] [address] documented in this encounter Visit Diagnoses Diagnosis Type 2 diabetes, controlled, with neuropathy Type II or unspecified type diabetes mellitus with neurological manifestations, not stated as uncontrolled Delano's thyroiditis Chronic lymphocytic thyroiditis Vitamin D deficiency Unspecified vitamin D deficiency 3-vessel CAD Coronary atherosclerosis of unspecified type of vessel, campo or graft documented in this encounter Care Teams Oil And Gas Superintendent Relationship Specialty Start Date End Date Kaylee Jaquez PA [address] [place] [address] PCP - General Family Medicine 01/18/22 documented as of this encounter
--- OUTSIDE RECORDS SUMMARY | 2024-05-21 20:14 | XMS_ITS | Encounter Summary ---
Author Organization [facility] [address] Care Team Providers Care Box Inspector Name Role Phone Kaylee Jaquez Primary Care Provider [phone] Reason for Visit * Reason Comments Medication Refill Encounter Details Date Type Department Care Team (Late st Contact Info) Description 07/30/2023 Ref[place] [address] Chiquis Chen MD [facility] [place] [place] [address] Social History Tobacco Use Types Packs/Day Years [...] on filedocumented in this encounter Care Teams Box Inspector Relationship Specialty Start Date End Date Kaylee Jaquez PA [address] [place], [place] [address] PCP - General Family Medicine 9/9/22 documented as of this encounter
--- OUTSIDE RECORDS SUMMARY | 2024-05-21 20:14 | XMS_ITS | Encounter Summary ---
[place] [address] Care Team Providers Care Tire Finisher Name Role Phone Kaylee Jaquez Primary Care Provider [phone] Encounter Details Date Type Department Care Team [...] on filedocumented in this encounter Care Teams Tire Finisher Relationship Specialty Start Date End Date Kaylee Jaquez PA [address] [place] [address] PCP - General Family Medicine 01/18/22 documented as of this encounter
--- OUTSIDE RECORDS SUMMARY | 2024-05-21 20:14 | XMS_ITS | Encounter Summary ---
Author [facility] [place] [address] Care Team Providers Care Keno Clerk Name Role Phone Kaylee Jaquez Primary Care Provider Reason for Visit * Auth/Cert (Routine) Specialty Diagnoses / Procedures Referred By Jasson mendoza Referred To Contact Diagnoses Gastroparesis villegas's surveillance Procedures PRO UPPER GI ENDOSCOPY, DIAGNOSTIC PRO UPPER GI ENDOSCOPY, BIOPSY PRO UP GI ENDOSCOPY, REMV TUMOR, SNARE PRO ANES, UGI ENDOSCOPY NOS EGD, UPPER GI ENDOSCOPY (WRVU 2.09) Nimesh Alicia MD [facility] [place] [place] [address] [facility] Referral ID Status Reason Start Date Expiration Date Visits Re quested Visits Authorized [id number] 1 1 Encounter Details Date Type Department Care Team (Late st Contact Info) Description 10/03/2023 10:30 AM EDT - 10/03/2023 11:00 AM EDT Surgery [place] [address] Nimesh Alicia MD [facility] [place] [place] [address] EGD WITH BIOPSY (WRVU 2.39) Social History [...] the day after the procedure, use an sfww-pdi-lzvusmq spray to numb your throat. Sucking on [...] occurs, please contact your Doctor. Please call [phone] before 8pm Mon-Fri with problems, questions or concerns. If you call after 8pm or on weekends, call the Hospital at [phone] and ask to speak to the Repairer Maintenance Building documentation coordinator and the crane operator cab will contact that person for you. When should you call for help? Call [phone] anytime you think you may need emergency [...] any problems. Where can you learn more? [facility] View your After Visit Summary and more online at [email or web address] If you would like to provide feedback about your hospital experience, please call the Office of Patient and Family Relations at . If you have received this After Visit Summary in error, please immediately return it in person to the department, or notify the [facility] Privacy Office by calling toll free at between the hours of 8AM and 5PM to arrange for our retrieval of the documents at no cost to you. Content Version: 12.2 ?? 4380-1498 [email or web address]. Care instructions adapted under license by [facility]. If you have questions about a medical condition or this instruction, always ask your healthcare professional. [email or web address] disclaims any warranty or liability for your [...] the day after the procedure, use an ayyu-ktw-nbpqoen spray to numb your throat. Sucking on [...] occurs, please contact your Doctor. Please call [phone] before 8pm Mon-Fri with problems, questions or concerns. If you call after 8pm or on weekends, call the Hospital at [phone] and ask to speak to the Repairer Maintenance Building documentation coordinator and the crane operator cab will contact that person for you. When should you call for help? Call [phone] anytime you think you may need emergency [...] any problems. Where can you learn more? [facility] View your After Visit Summary and more online at [email or web address] If you would like to provide feedback about your hospital experience, please call the Office of Patient and Family Relations at . If you have received this After Visit Summary in error, please immediately return it in person to the department, or notify the [facility] Privacy Office by calling toll free at between the hours of 8AM and 5PM to arrange for our retrieval of the documents at no cost to you. Content Version: 12.2 ?? [phone] [email or web address]. Care instructions adapted under license by [facility]. If you have questions about a medical condition or this instruction, always ask your healthcare professional. [email or web address] disclaims any warranty or liability for your [...] 0.5 mg by mouth daily. 2 02/26/2018 metoprolol succinate XL (Toprol-XL) 50 mg ER 24 hr tabletIndications:NST PAULETTE (non-ST elevated myocardial infarction) Take 1 tablet by mouth daily. 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 ??Separate Pathology report to follow Nimesh Alicia MD PATHOLOGY/CYTOLOGY O RDERABLES Performing Organization Address City/State/[facility] Co de Phone Number [facility] [place] [address] * Surgical Pathology Report (10/03/2023 10:58 AM EDT) Final Diagnosis [id number] ? Location: 4T; EA10; A The signing pathologist has (i) examined the relevant preparation(s) for the specimen(s) and (ii) rendered or confirmed the diagnosis(es). . ?Surgical Pathology DIAGNOSIS A - GE junction,biopsy (Multiple): - ??Squamous esophageal and cardiac mucosa within normal limits. - ??No goblet cell metaplasia is seen. Electronically signed by: ?Cleopatra Merrill MD Verified: ??10/14/2023 15:24 ??Pathologist Performed at: ??-[facility] [place] Dept. of Pathology, [place] [address] Core Analysis Operator: Cleopatra Merrill MD, FCAP, ??CLIA Certificate: [id number] SPECIMEN(S) SUBMITTED A - GE junction bx's. r/o ?? Villegas's, biopsy (Multiple) CLINICAL INFORMATION 63-year-old with? ??Villegas's SPECIMEN PROCESSING A - Labeled/Fixativ e: GE junction BX, rule out Villegas's, formalin. Quantity/Size: Four, averaging 0.4 cm. Tissue Description: Soft, pink-red tissues. Sections/Proces sing: Submitted in toto ??in 1 cassette labeled A1. ??sns 10/14/2023 3:24 PM EDT [facility] GI Biopsy 10/03/2023 10:5 8 AM EDT 10/03/2023 10:58 AM EDT Nimesh Alicia MD PATHOLOGY/CYTOLOGY O RDERABLES Performing Organization Address City/State/[facility] Co de Phone Number [facility] [place] [phone] * UPPER GI ENDOSCOPY (10/03/2023 10:50 AM EDT) UPPER GI ENDOSCOPY [facility] Endoscopy ___ Procedure Date: 10/03/2023 10:50 AM ? Patient Name: Danielle Mills ? Date of : 1960 ? Age: 63 ? Order #: [id number] ? Instrument Name: [id number] ? ___ Procedure: ? Upper GI endoscopy Indications: ? Gastro-esophageal reflux disease, ? Follow-up of Villegas's esophagus Providers: ? Carlos Christian ? Evelyne, RN, Carlos Veliz Referring MD: ?Kaylee Jaquez Medicines: [...] Procedure Code(s): ? --- Professional --- ? 90596, Esophagogastroduode noscopy, ? flexible, transoral; with biopsy, ? single or multiple Diagnosis Code(s): ? --- Professional --- ? K21.9, Gastro-esophageal reflux ? disease without esophagitis ? K22.70, Villegas's esophagus without ? dysplasia ? --- Technical --- ? K21.9, Gastro-esophageal reflux ? disease without esophagitis ? K22.70, Villegas's esophagus without ? dysplasia CPT copyright 2021 [employer]. All rights reserved. The codes documented in this report are preliminary and upon vice president residential solar sales review may be revised to meet current compliance requirements. Attending Participation: ? I personally performed the entire procedure. ? Nimesh Alicia, 10/03/2023 11:02:52 AM Number of Addenda: 0 Note Initiated On: 10/03/2023 10:50 AM PROVATION 10/03/2023 10:5 0 AM EDT Unknown GENERAL SURGICAL ORD ERABLES PROVATION * POCT Glucose (10/03/2023 10:27 AM EDT) Glucose, POC 114 65 - 199 mg/dL [facility] Comment: Supplemental ranges: <140 mg/dL before meals <180 mg/dL all other times of the day Blood 10/03/2023 10:2 7 AM EDT 10/03/2023 10:27 AM EDT Nimesh Alicia MD POINT OF CARE [place] [address] documented in this encounter Visit Diagnoses Diagnosis [...] CRNA) documented in this encounter Care Teams Keno Clerk Relationship Specialty Start Date End Date Kaylee Jaquez PA [address] [place] [address] PCP - General Family Medicine 01/18/22 documented as of this encounter
--- OUTSIDE RECORDS SUMMARY | 2024-05-21 20:14 | XMS_ITS | Encounter Summary ---
Author Organization [facility] Address [address] [place] [address] Care Team Providers Care Roof Truss Builder Name Role Phone Kenia Hernandez LINUX DEVELOPER Primary Care Provider [phone] Encounter Details Date Type Department Care Team (Latest Contact Info) Description 09/08/2017 10:09 EDT - 09/08/2017 23:59 EDT Hospital Encounter [address] [address] Unknown, Provider, MD Discharge Disposition: Home or Self Care Social History Tobacco Use Types Packs/Day Years Used Date Smoking Tobacco: Never Assessed Comments Unknown Sex and Gender Information Value Date Recorded Sex Assigned at Not on file Legal Sex Female 13:59 EST Gender Identity Not on file Sexual Orientation Not on file documented as of this encounter Discharge Disposition Disposition Code Departure Means Destination Home or Self [facility] documented in this encounter Plan of Treatment Not on file documented as of this encounter Visit Diagnoses Not on filedocumented in this encounter Care Teams Roof Truss Builder Relationship Specialty Start Date End Date Kenia Hernandez, LINUX DEVELOPER [address] [place] [address] PCP - General 06/04/16 11/29/20 documented as of this encounter
--- OUTSIDE RECORDS SUMMARY | 2024-05-21 20:14 | XMS_ITS | Encounter Summary ---
Author Organization [facility] [place] [address] Care Team Providers Care Art Therapist Name Role Phone Kaylee Jaquez Primary Care Provider Reason for Visit * Reason Comments Medication Refill Encounter Details Date Type Department Care Team (Late st Contact Info) Description 08/25/2023 Refill Cardiology at [address] [address] Lc Garcia MD [facility] [place] [address] Medication Refill Social History Tobacco Use Types [...] this medication - Imdur per day. See [employer] message chain from 07/28/23. documented in this encounter Plan of Treatment Not on file documented as of this encounter Visit Diagnoses Diagnosis NSTEMI (non-ST elevated myocardial infarction) Acute myocardial infarction, subendocardial infarction, episode of care unspecified documented in this encounter Care Teams Art Therapist Relationship Specialty Start Date End Date Kaylee Jaquez PA [address] [place] [address] PCP - General Family Medicine 01/18/22 documented as of this encounter
--- OUTSIDE RECORDS SUMMARY | 2024-05-21 20:14 | XMS_ITS | Clinical Summary ---
Author Organization [facility] Address [place] [address] Care Team Providers Care Security Advisor Name Role Phone Kaylee Jaquez Primary Care Provider [phone] Allergies Active Allergy Reactions Criticality Noted Date [...] mouth daily. 90 tablet 3 11/17/2023 Active metoprolol succinate XL (Toprol-XL) 50 mg ER 24 hr tabletIndications:N STEMI (non-ST elevated myocardial infarction) Take 1.5 tablets by mouth daily. 135 tablet 3 02/12/2024 Active Active Problems Problem Noted Date Diagnosed Date Radiculopathy of lumbar region 01/23/2023 Constipation 08/29/2020 Overview (08/29/2020): Added automatically from request for surgery [id number] Non-ST elevation myocardial infarction (NSTEMI) 02/07/2020 NSTEMI [...] Encounters Date Type Department Care Team Description 04/30/2024 Transcribe Orders eDH Incoming Referrals [phone] Celia López DO Low back pain, unspecified back pain laterality, unspecified chronicity, unspecified whether sciatica present 04/26/2024 Transcribe Orders eD Incoming Referrals [phone] Kaylee Jaquez, JUAN PABLO Pelvic and perineal pain from Last 3 Months Immunizations Name Administration [...] FIT DNA 1961 FIT 1961 Sigmoidoscopy 1960 DM Opthalmology Exam 07/19/1971 HIV screen 07/19/1979 Hepatitis C Screening 07/19/1979 Pneumococcal Vaccine: At-Ris k 5-64yrs (1 of 2 - PCV) 1980 Tetanus/Diphtheria/Pertussis Vaccines (1 - Tdap) 1980 HPV test 07/19/1991 PAP Smear 07/19/1991 Breast Cancer Share Decision Needed 2001 Breast Cancer screening 2001 Zoster vaccine (1 of 2) 07/19/2011 Advance Directive 2016 RSV Vaccine (1 - Risk 60-74 years 1-dose series) 2021 DM Creatinine yearly 07/30/2023 07/29/2022, 02/09/2020, 02/08/2020, Additional history exists DM Urine Microalbumin yearly 07/30/2023 07/29/2022 Covid-19 Vaccine (2 - 2023-2 5 season) 2024 03/15/2022 Influenza (Flu) vaccine (1 o f 1 - Influenza standard series) 01/11/2024 02/09/2020 DM Hemoglobin A1c 6 month 01/31/20242023, 07/29/2022, 02/07/2020 Lipid Screening 02/06/2025 02/07/2020 Colonoscopy 08/02/2031 08/01/2021, 08/01/2021 Colorectal Cancer Screening 08/02/2031 Sigmoidoscopy (10 year) with FIT yearly 08/02/2031 08/01/2021, 08/01/2021 Procedures Procedure Name Priority Date/Time Associated Diagnosis Comments HEMOGLOBIN A1C Routine 07/31/2023 12:12 PM EDT Type 2 diabetes, controlled, 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 U ALBUMIN/CRE RATIO Routine 07/29/2022 1 0:59 AM EDT Type 2 diabetes, controlled, 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 1, S67-74 Estimated Average Glucose 150 mg/dL [facility] Blood 07/31/2023 12:1 2 PM EDT 07/31/2023 12:43 PM EDT Narrative Resulting Agency Comment Spec In Lab Marta Rivera MD CHEMISTRY ORDERAB LES [facility] [place] [address] * U Albumin/Cre Ratio (07/29/2022 10:59 AM EDT) Albumin / Creatinin Ratio, Urine Not Calculated 0 - 29 mcg/mg Cr [facility] Comment: Reference Ranges: <30 mcg/mg: [...] [employer] Supplements (2012) 2, 357? 362 Albumin, Urine <3.0 mg/L [facility] Creatinine, Urine 49 mg/dL [facility] Urine 07/29/2022 10:5 9 AM EDT 07/29/2022 11:16 AM EDT Narrative Resulting Agency Comment Spec In Lab Marta Rivera MD URINE ORDERABLES [facility] [address] * Basic Metabolic Panel (non-fasting) (07/29/2022 10:55 AM EDT) Glucose 139 65 - 199 mg/dL [facility] Comment:Diabetes: >=200 mg/d L plus symptoms Blood Urea Nitrogen 11 8 - 18 mg/dL [facility] Creatinine 0.70 0.70 - 1.20 mg/dL [facility] Sodium 142 135 - 145 mmol/L [facility] Potassium 3.8 3.5 - 5.0 mmol/L [facility] Comment: Please note: ??Patients with WBC >100,000 may have falsely elevated Potassium levels. ??For accurate Potassium quantification in these patients send serum separator tube (gold top) for subsequent determinations. ??Contact the Clinical Chemistry Laboratory if there are any questions. Chloride 103 98 - 107 mmol/L [facility] Carbon Dioxide 28 22 - 31 mmol/L [facility] Anion Gap 11 5 - 15 mmol/L [facility] Calcium 9.4 8.5 - 10.5 mg/dL [facility] Est Glomerular Filtration Rate 98 >=60 mL/min/1. 73 m?? [facility] Comment: This patient's estimated GFR [...] Lab Marta Rivera MD CHEMISTRY ORDERAB LES [facility] [place] [address] * COLONOSCOPY (08/01/2021 9:51 AM EDT) COLONOSCOPY [facility] Endoscopy Procedure Date: 08/01/2021 9:51 AM ? Patient Name: Danielle Mills ? N: [id number] ? Date of : 1960 ? Age: 61 ? Order #: [id number] ? Instrument Name: [id number] ? Procedure: ? Colonoscopy Indications: ? Constipation [...] Procedure Code(s): ?? --- Professional --- ? 26043, Colonoscopy, flexible; with ? removal of tumor(s), polyp(s), or ? other lesion(s) by snare technique Diagnosis Code(s): ?? --- Professional --- ? K59.00, Constipation, unspecified ? K63.5, Polyp of colon ? --- Technical --- ? K59.00, Constipation, unspecified ? K63.5, Polyp of colon CPT copyright 2019 [employer]. All rights reserved. The codes documented in this report are preliminary and upon school speech language pathologist review may be revised to meet current compliance requirements. Attending Participation: ? I personally performed the entire procedure. ? Nimesh Alicia, 08/01/2021 11:11:02 AM Number of Addenda: 0 Note Initiated On: 08/01/2021 9:51 AM [facility] 08/01/2021 9:51 AM EDT Steven Jeffries MD GENERAL SURGICAL ORD ERABLES [facility] * Lipid Panel (Reflex Direct LDL) (02/07/2020 7:29 AM EDT) Cholesterol, Total 186 mg/dL [facility] Comment: Lower Risk: <200 mg/dL Average Risk: 200-239 mg/dL Higher Risk: >tr=857 mg/dL Triglyceride 161 mg/dL [facility] Comment: Average Risk/Lower Risk: <150 mg/dL Borderline High Risk: 150-199 mg/dL High Risk: 200-499 mg/dL Very High Risk: >xn=141 mg/dL HDL Cholesterol 34 mg/dL [facility] Comment: Males: ?? Higher Risk: <40 mg/dL Females: ?? HIgher Risk: <50 mg/dL LDL Cholesterol 120 mg/dL [facility] Comment: Lowest Risk: <100 mg/dL Lower Risk: 100-129 mg/dL Borderline High Risk: 130-159 mg/dL High Risk: 160-189 mg/dL Very High Risk: >ev=003 mg/dL Cholesterol/HDL Ratio 5.5 ratio [facility] Lipid Interpretation See Note [facility] Comment: Lipid management should be guided by a patient? s ASCVD risk, goals and preferences. ACC/AHA Guidelines recommend high intensity statin if clinical ASCVD or LDL greater than or equal to 190 mg/dL. http://[employer]/BLL-POQ-Bxnsutsya Adults aged 40-75 with LDL 70-189 mg/dL should have their 10 year ASCVD risk estimated with the ACC/AHA ASCVD risk auto damage estimator http://tools.acc.org/JQQJT-Zekp-Delbzhuwj/ Statin should be discussed if risk greater [...] Lab Vik Justin MD CHEMISTRY ORDER TOBI [facility] [place] [address] from Last 3 Months or Most Recently [...] Status decision made by: Patient Care Teams Security Advisor Relationship Specialty Start Date End Date Kaylee Jaquez PA [address] [place] [address] PCP - General Family Medicine 01/18/22
--- OUTSIDE RECORDS SUMMARY | 2024-05-21 20:14 | XMS_ITS | Encounter Summary ---
[place] [address] Care Team Providers Care Chainstitch Zipper Setter Name Role Phone Kaylee Jaquez Primary Care Provider [phone] Reason for Visit * Diagnostic Test (Routine) - Closed Specialty Diagnoses / Procedures Referred By Jasson mendoza Referred To Contact Gastroenterology Diagnoses Constipation, unspecified constipation type ARM for constipation Procedures High Definition Anal Manometry Nimesh Alicia MD [facility] [place] [address] [facility] [address] [place] [address] Referral ID Status Reason Start Date Expiration Date V isits Requested Visits Authorized [id number] Closed Consult, Test & Treat 07/14/2023 07/13/2024 1 1 Encounter Details Date Type Department Care Team (Latest Contact Info) Description 08/19/2023 2:00 PM EDT Procedure [place] [address] Constipation, unspecified constipation type Social History Tobacco [...] 2:00 PM EDT Re: Danielle Mills Reg No:[id number] : 1960 Date of Service: 08/19/2023 ANORECTAL MANOMETRY w/BALLOON EXPULSION Referring provider:Nimesh Alicia Dear: Dr. Alicia We had the pleasure of performing a high resolution anorectal manometry on your patient in the GI Motility Laboratory at [facility]. CLINICAL HISTORY AND INDICATION As you [...] Rectal sensation was normal. Carlos Stacy MD, FRCPC Section of Gastroenterology and Hepatology [place] [address] V: [phone] F: [phone] CC/EC: JUAN PABLO Waterman [address] [place] [address] documented in this encounter Plan of Treatment Not on file documented as of this encounter Visit Diagnoses Diagnosis Constipation, unspecified constipation type documented in this encounter Care Teams Chainstitch Zipper Setter Relationship Specialty Start Date End Date Kaylee Jaquez PA [address] [place] [address] PCP - General Family Medicine 01/18/22 documented as of this encounter
--- OUTSIDE RECORDS SUMMARY | 2024-05-21 20:14 | XMS_ITS | Encounter Summary ---
[place] [address] Care Team Providers Care Superintendent Circus Name Role Phone Kaylee Jaquez Primary Care Provider Reason for Referral * Consultation (Routine) - Authorized Specialty Diagnoses / Procedures Referred By Jasson mendoza Referred To Contact Urology Diagnoses Pelvic and perineal pain Kaylee Jaquez PA [address] [place] [address] [facility] Levee Superintendent [address] [place] [phone] Referral ID Status Reason Start Date Expiration Date Visits Requested Visits Authorized [id number] Authorized Consult, Test & Treat PCP Updated and/or Approved 4 03/26/2025 6 6 Encounter Details Date Type Department Care Team (Latest Contact Info) Description 04/26/2024 Transcribe Orders eDH Incoming Referrals [phone] Kaylee Jaquez PA [address] [place] [address] Pelvic and perineal pain Social History Tobacco Use Types Packs/Day Years [...] Priority Associated Diagnoses Order Schedule Referral to Urogynecology Outpatient Referral Urgent Pelvic and perineal pain Ordered: 04/26/2024 documented as of this encounter Visit Diagnoses Diagnosis Pelvic and perineal pain Unspecified symptom associated with female genital organs documented in this encounter Care Teams Superintendent Circus Relationship Specialty Start Date End Date Kaylee Jaquez PA [address] [place] [address] PCP - General Family Medicine 01/18/22 documented as of this encounter
--- OUTSIDE RECORDS SUMMARY | 2024-05-21 20:14 | XMS_ITS | Encounter Summary ---
[place] [address] Care Team Providers Care Department Editor Name Role Phone Kaylee Jaquez Primary Care Provider [phone] Reason for Visit * Auth/Cert (Routine) Specialty Diagnoses / Procedures Referred By Jasson mendoza Referred To Contact Diagnoses Gastroparesis villegas's surveillance Procedures PRO UPPER GI ENDOSCOPY, DIAGNOSTIC PRO UPPER GI ENDOSCOPY, BIOPSY PRO UP GI ENDOSCOPY, REMV TUMOR, SNARE PRO ANES, UGI ENDOSCOPY NOS EGD, UPPER GI ENDOSCOPY (WRVU 2.09) Nimesh Alicia MD [facility] [place] [address] [facility] Referral ID Status Reason Start Date Expiration Date Visits Re quested Visits Authorized [id number] 1 1 Encounter Details Date Type Department Care Team (Late st Contact Info) Description 10/03/2023 10:47 AM EDT Anesthesia Event [place] [address] Lilibeth Freed MD [facility] [place] [address] Jason Hopson MD Anesthesia Record Procedure Summary Procedure Name Responsible [...] Type Details Placement Removal PIV 10/03/23; 1027; [id number]-[id number] catheter system; 20 gauge; median cubital vein [...] Procedure Summary Date: 10/03/23 Room / Location: [facility] ENDO 3 / [facility]COPY Anesthesia Start: 1047 Anesthesia Stop: 1111 Procedure: EGD WITH BIOPSY (WRVU 2.39) (Trunk) Diagnosis: Gastroparesis (villegas's surveillance) Surgeons: Nimesh Alicia MD Responsible Provider: Lilibeth Freed MD Anesthesia Type: MAC ASA Status: 3 All Anesthesia Providers: Anesthesiologist: Lilibeth Freed MD TIRE STRIPPER: Ryan Gates CRNA Laundry Aid: Jason Hopson MD Vitals Value Taken Time BP 117/68 10/03/23 1150 Temp Pulse Resp 16 10/03/23 1150 SpO2 99 % 10/03/23 1155 Pain Level 0 10/03/23 1150 Vitals shown include unfiled device data. Patient Location: PACU/[facility] Level of Consciousness: Awake and Alert Pain [...] 4.67) performed by Nimesh Alicia MD at [facility] ENDOSCOPY ??? PRO INJECTION DX/THER SBST INTRLMNR LMBR/SAC W/IMG GDN Midline 01/23/2023 INJECTION, EPIDURAL, LUMBAR OR SACRAL (CAUDAL), WITH IMAGING GUIDANCE (WRVU 1.8) performed by Alvarez Monteiro MD at [facility] PAIN MGMT MSO ??? PRO INJECTION DX/THER SBST INTRLMNR LMBR/SAC W/IMG GDN Midline 01/23/2023 Lumbar or Sacral Epidural Steroid Inj Sacral (Caudal) (08298) performed by Alvarez Monteiro MD at [facility] PAIN MGMT MSO ??? PRO UPPER GI ENDOSCOPY, BIOPSY N/A 11/19/2018 EGD WITH BIOPSY (WRVU 2.49) performed by Nimesh Alicia MD at [facility] ENDOSCOPY ??? RECTOCELE REPAIR 2014 Dr. Boo @ [facility] ??? SHOULDER SURGERY Left 06/05/2017 L [...] needing to stop. Plan: JUN Hopson MD Laundry Aid Region - Other Informed Consent: Anesthetic plan [...] mg documented in this encounter Care Teams Department Editor Relationship Specialty Start Date End Date Kaylee Jaquez PA [address] [place] [address] PCP - General Family Medicine 01/18/22 documented as of this encounter
--- OUTSIDE RECORDS SUMMARY | 2024-05-21 20:14 | XMS_ITS | Encounter Summary ---
Author Organization [facility] Address [address] [place] [address] Care Team Providers Care Supervisor Elementary Education Name Role Phone Francy Lowe NP Primary Care Provider [phone] Reason for Referral * Consult (Routine) - Specialty Report Received Specialty Diagnoses / Procedures Referred By Jasson mendoza Referred To Contact Orthopedic Surgery Diagnoses Chronic right-sided low back pain, unspecified whether sciatica present Helena Ramirez NP Phone: tel: fax: [facility] [place] [address] Phone: tel: fax: Referral ID Status Reason Start Date Expiration Date Visits Requested Visits Authorized [id number] Specialty Report Received Specialty Services Required 11/30/2020 1 1 Question Answer Reason for Request: right low back acute on chronic pain Reason for Visit * Reason Comments Pain * Referral (Routine) - Receiving Office to Obtain Authorization Specialty Diagnoses / Procedures Referred By Jasson mendoza Referred To Contact Orthopedic Surgery Diagnoses Pain in right hip Francy Lowe NP Phone: tel: fax: [facility] [place] [address] Phone: tel: fax: Referral ID Status Reason Start Date Expiration Date Visits Requested Visits Authorized [id number] Receiving Office to Obtain Authorization 1 1 Encounter Details Date Type Department Care Team (Late st Contact Info) Description 11/30/2020 14:30 EDT Office Visit [facility] - [facility] [address] [place] [address] Helena Ramirez, VIR[address] [place] [address] Chronic right-sided low back pain, [...] this encounter Progress Notes * Helena Ramirez, PANTOGRAPH OPERATOR - 11/30/2020 1430 EDT New Hip pain [...] surgery. She is also s/p right TKA (2009, [place]), which is doing well. She has not [...] Gatherings with Friends and Family: ??? Attends Protestant Services: ??? Active Member of Clubs or [...] clinic for further evaluation/management Disposition: follow-up in [facility] as needed Dr. Lan was the attending physician available in the clinic today if needed. A consultation was not required. All or part of this document has been prepared with speech recognition software and/or keyboard data collection associate techniques. Minor irregularities may be present. documented [...] Primary documented in this encounter Care Teams Supervisor Elementary Education Relationship Specialty Start Date End Date Francy Lowe NP PCP - General 11/30/20 documented as of this encounter
--- OUTSIDE RECORDS SUMMARY | 2024-05-21 20:14 | XMS_ITS | Encounter Summary ---
[place] [address] Care Team Providers Care Red Mud Thickener Operator Name Role Phone Kaylee Jaquez Primary Care Provider Encounter Details Date Type Department Care Team (Late st Contact Info) Description 07/30/2023 Abstract Cardiology at [address] [address] Kiki Peck, RN Social History Tobacco Use [...] on filedocumented in this encounter Care Teams Red Mud Thickener Operator Relationship Specialty Start Date End Date Kaylee Jaquez PA [address] [place] [address] PCP - General Family Medicine 01/18/22 documented as of this encounter
--- OUTSIDE RECORDS SUMMARY | 2024-05-21 20:14 | XMS_ITS | Encounter Summary ---
[place] [address] Care Team Providers Care Ambulance Driver Paramedic Name Role Phone Kaylee Jaquez Primary Care Provider Reason for Visit * Reason Comments Right Wrist Pain Encounter Details Date Type Department Care Team ([facility] st Contact Info) Description 11/03/2023 3:15 PM EDT Office Visit Orthopaedics at [address] [address] Sofie Whiting MD [address] [place] [address] [place] [address] Pain in right wrist Social History Tobacco [...] mg documented in this encounter Care Teams Ambulance Driver Paramedic Relationship Specialty Start Date End Date Kaylee Jaquez PA [address] [place] [address] PCP - General Family Medicine 01/18/22 documented as of this encounter
--- OUTSIDE RECORDS SUMMARY | 2024-05-21 20:14 | XMS_ITS | Encounter Summary ---
[place] [address] Care Team Providers Care Certified Welding Inspector Name Role Phone Kaylee Jaquez Primary [...] on filedocumented in this encounter Care Teams Certified Welding Inspector Relationship Specialty Start Date End Date Kaylee Jaquez PA [address] [place] [address] PCP - General Family Medicine 01/18/22 documented as of this encounter
--- OUTSIDE RECORDS SUMMARY | 2024-05-21 20:14 | XMS_ITS | Encounter Summary ---
Author Organization [facility] [place] [address] Care Team Providers Care Optometry Doctor Name Role Phone Kaylee Jaquez Primary Care Provider [phone] Encounter Details Date Type Department Care Team (Late st Contact Info) Description 09/05/2023 2:30 PM EDT Ancillary Procedure Radiology Library [place] [facility] [place] [address] Unknown None Social History Tobacco Use Types [...] only. Unknown IMG FILM LIBRARY ORD ERABLES [place], [place] documented in this encounter Visit Diagnoses Not on filedocumented in this encounter Care Teams Optometry Doctor Relationship Specialty Start Date End Date Kaylee Jaquez PA [address] [place] [address] PCP - General Family Medicine 01/18/22 documented as of this encounter
--- OUTSIDE RECORDS SUMMARY | 2024-05-21 20:14 | XMS_ITS | Encounter Summary ---
[place] [address] Care Team Providers Care Bilingual Elementary School Teacher Name Role Phone Kaylee Jaquez Primary Care [...] on filedocumented in this encounter Care Teams Bilingual Elementary School Teacher Relationship Specialty Start Date End Date Kaylee Jaquez PA [address] [place] [address] PCP - General Family Medicine 01/18/22 documented as of this encounter
--- OUTSIDE RECORDS SUMMARY | 2024-05-21 20:14 | XMS_ITS | Encounter Summary ---
[place] [address] Care Team Providers Care Factory Hand Name Role Phone Kaylee Jaquez Primary Care [...] on filedocumented in this encounter Care Teams Factory Hand Relationship Specialty Start Date End Date Kaylee Jaquez PA [address] [place] [id number] PCP - General Family Medicine 01/18/22 documented as of this encounter
--- OUTSIDE RECORDS SUMMARY | 2024-05-21 20:14 | XMS_ITS | Encounter Summary ---
Author Organization [facility] Address [facility] [place] [address] Care Team Providers Care Quality Improvement Manager Name Role Phone Kaylee Jaquez Primary Care Provider [phone] Reason for Visit * Reason Onset Date Comments Medication Refill 11/17/2023 Encounter Details Date Type Department Care Team (Late st Contact Info) Description 11/17/2023 Refill [place] [address] Nimesh Alicia MD [facility] [place] [address] Gastroparesis Social History Tobacco Use Types Packs/Day [...] Gastroparesis documented in this encounter Care Teams Quality Improvement Manager Relationship Specialty Start Date End Date Kaylee Jaquez PA [address] [place] [facility], [place] [address] PCP - General Family Medicine 01/18/22 documented as of this encounter
--- OUTSIDE RECORDS SUMMARY | 2024-05-21 20:14 | XMS_ITS | Encounter Summary ---
[place] [address] Care Team Providers Care Mathematical Scientist Name Role Phone Kaylee Jaquez Primary Care Provider Reason for Referral * Diagnostic Test (Routine) - Closed Specialty Diagnoses / Procedures Referred By Jasson mendoza Referred To Contact Cardiology Diagnoses Palpitations Procedures Ziopatch 48 Hrs-15 Days Lc Garcia MD [facility] [place] [address] [facility] [place] [address] Referral ID Status Reason Start Date Expiration Date V isits Requested Visits Authorized [id number] Closed Specialty Service Requested 01/16/2024 01/15/2025 1 1 Reason for Visit * Reason Onset Date Comments Palpitations 01/13/2024 Chest Pain 01/13/2024 Encounter Details Date Type Department Care Team (Late st Contact Info) Description 01/13/2024 Telephone Cardiology at [address] [address] Minerva Mejia RN Palpitations; Chest Pain Social History Tobacco Use Types Packs/Day Years [...] Telephone Encounter - Minerva Mejia RN - 01/13/2024 3:41 PM EDT Lc Garcia [place] [facility] [place] - [facility] Cardiology [place] 01/13/24 2:16 PM Please obtain records. Recommend Ziopatch to rule out occult arrhythmia. Please call patient to seeif she is ok with this, then place order and I can sign. Thanks. Lc I called Danielle per request of - she was agreeable to a zio patch for her recent symptoms ofunusual palpitations and chest pain that recently landed her in the ER. Will pend the order to for signing. She did not have any further questions/concerns at this time and is aware she can call us back at anytime if needed. documented in this encounter Plan of Treatment Not on file documented as of this encounter Results * Ziopatch 48 Hrs-15 Days (01/16/2024 1:56 PM EDT) Total Enrollment Period [id number] IRHYTHM Anatomical Region Laterality Modality Other 01/16/2024 Narrative 02/05/2024 3:58 PM EDT [facility] ? Zio Patch Ambulatory Cardiac Event Monitor Report Indication for Study: [Palpitations] Duration of recording: ??[8 days 7 hours] Summary Data: Minimum rate: ??[57] Average rate: ??[84] Maximum rate: ??[114] Predominant Rhythm: ??[Normal sinus rhythm] Atrial fibrillation: ??[None seen] Significant Pauses: ??[None seen] Patient Diary Events: Triggered Events (button pushes): ??[2] Diary Events: [1] Ectopic beats: Atrial premature beats (APC? s): [Less than 1%] Ventricular premature beats (VPC's): [Less than 1%] Leon Rhythm Findings: 1. ??[Throughout the recording normal sinus rhythm is the predominant rhythm the average heart rate is 84 bpm There are rare isolated premature ventricular contractions with rare ventricular couplets and triplets. ??2 episodes of ventricular tachycardia were seen the fastest lasted for 13 beats at a maximal heart rate of 154 bpm this was also the longest run. ??This episodes appear to be symptomatic Isolated premature atrial contractions were rare and there were also rare atrial couplets and triplets. ??There were 2 episodes of supraventricular tachycardia the fastest heart rate of 162 bpm and lasted for 10 beats. ?? The longest lasted for 18 seconds with an average heart rate of 126 bpm. ?? No episodes of atrial fibrillation detected There were no significant pauses] Note: ??The full PDF version of this Zio evaluation is available for review. ??For medical providers accessing via the electronic medical record, the PDF can be found on the Chart Review > Media tab. ??For patients accessing the study from [facility] (My Chart), click on the link or links found in the IMAGES area below the text of the report. Skyler Snowden MD FAC Lc Garcia MD CARDIAC SERVICES ORD ERABLES documented in this encounter Visit Diagnoses Diagnosis Palpitations Palpitations documented in this encounter Care Teams Mathematical Scientist Relationship Specialty Start Date End Date Kaylee Jaquez PA [address] [address] PCP - General Family Medicine 01/18/22 documented as of this encounter
--- OUTSIDE RECORDS SUMMARY | 2024-05-21 20:14 | XMS_ITS | Encounter Summary ---
Author Organization [facility] Address [address] [place] [address] Care Team Providers Care Summer Internship Name Role Phone Vicentevashti Kenia Vashti FAST FOOD SUPERVISOR Primary Care Provider [phone] Francy Lowe FAST FOOD SUPERVISOR Primary Care Provider [phone] Encounter Details Date Type Department Care Team (Late st Contact Info) Description 06/04/2019 Lab Requisition [facility] Pathology & Laboratory Medicine - [address] [address] Unknown, Provider, Social History Tobacco Use Types [...] 2.8 - 5.3 pg/mL 06/04/2019 17:10 EST [facility] Blood VENOUS BLOOD / Unknown 06/03/2019 8:30 EST 06/04/2019 16:44 EST us Provider Unknown CHEMISTRY & BLOOD GAS ORDERA BLES Final Result [facility] [address] [place] [address] * (ABNORMAL) THYROID ANTIBODIES (06/03/2019 8:30 EST) Anti-Thyroglobulin 63(H) <=60 U/mL 2019 10:54 EST [facility] Thyroperoxidase Ab 182(H) <=60 U/mL 2019 10:54 EST [facility] Blood VENOUS BLOOD / Unknown 06/03/2019 8:30 EST 06/04/2019 16:44 EST us Provider Unknown CHEMISTRY & BLOOD GAS ORDERA BLES Final Result Performing Organization Address [facility] Co de Phone Number [facility] [address] [place] [address] documented in this encounter Visit Diagnoses Not on filedocumented in this encounter Care Teams Summer Internship Relationship Specialty Start Date End Date Kenia Hernandez NP [address] [place] [address] PCP - General 06/04/16 11/29/20 Francy Lowe NP [address] [place] [address] PCP - General 11/30/20 documented as of this encounter
--- OUTSIDE RECORDS SUMMARY | 2024-05-21 20:14 | XMS_ITS | Encounter Summary ---
Author Organization [facility] Address [address] [place] [address] Care Team Providers Care Energy Rater Name Role Phone Vicentevashti Kenia Vashti LANDING GEAR MECHANIC Primary Care Provider [phone] Francy Lowe LANDING GEAR MECHANIC Primary Care Provider [phone] Encounter Details Date Type Department Care Team (Late st Contact Info) Description 09/12/2020 Lab Requisition [facility] Pathology & Laboratory Medicine - [facility] [address] [place], [place] [id number] Outr Resulting Lab, Provider Social History Tobacco [...] 12:07 EDT) Hold Hold 09/12/2020 21:32 EDT [facility] Blood VENOUS BLOOD / Unknown 09/12/2020 12:07 EDT 09/12/2020 20:29 EDT us Provider Outr Resulting Lab LAB INFO SERVICE AND SUPPORT & PHONE RESULT Final Result Performing Organization Address [facility] Co de Phone Number [facility] [address] [place] [address] * HEPATITIS B SURFACE ANTIBODY (09/12/2020 12:07 EDT) [facility] Hep B Surface Ab, Quantitative <3.1 See Note mIU/mL 09/13/2020 10:22 EDT [facility] Comment: Reference Range for Hep B Surface Ab, Quant: Positive: >= 10.0 mIU/mL Negative: ??< 10.0 mIU/mL Patient is presumed to not be immune to infection with Hepatitis B Virus. Hep B Surface Ab, Qualitative Negative See Note 09/13/2020 10:22 EDT [facility] Comment: Reference Range for Hep B Surface Ab, Qual: Unvaccinated: ??Negative Vaccinated: ??Positive Blood VENOUS BLOOD / Unknown 09/12/2020 12:07 EDT 09/12/2020 20:29 EDT us Provider Outr Resulting Lab CHEMISTRY & BLOOD GA S ORDERABLES Final Result Performing Organization Address [facility] Co de Phone Number [facility] [address] [place] [address] * HEPATITIS C AB W REFLEX TO HCV RNA BY PCR (09/12/2020 12:07 EDT) [facility] Hep C Antibody Negative Negative 09/13/2020 10:17 EDT [facility] Blood VENOUS BLOOD / Unknown 09/12/2020 12:07 EDT 09/12/2020 20:24 EDT us Provider Outr Resulting Lab CHEMISTRY & BLOOD GA S ORDERABLES Final Result Performing Organization Address City/[facility]/ZIP Co de Phone Number [facility] [address] [place] [address] * HEPATITIS A TOTAL ANTIBODY W REFLEX (09/12/2020 12:07 EDT) Hepatitis A Antibody, Total Negative Negative 09/13/2020 11:07 EDT [facility] Blood VENOUS BLOOD / Unknown 09/12/2020 12:07 EDT 09/12/2020 20:29 EDT Narrative [facility] - 09/13/2020 11:07 EDT The result of this assay can be falsely elevated (Positive) due to the consumption of Biotin. Provider Outr Resulting Lab CHEMISTRY & BLOOD GA S ORDERABLES Final Result Performing Organization Address City/[facility] Co de Phone Number [facility] [address] [place] [address] documented in this encounter Visit Diagnoses Not on filedocumented in this encounter Care Teams Energy Rater Relationship Specialty Start Date End Date Kenia Hernandez LANDING GEAR MECHANIC [address] [place] [address] PCP - General 06/04/16 11/29/20 Francy Lowe LANDING GEAR MECHANIC [address] [place] [address] PCP - General 11/30/20 documented as of this encounter
--- OUTSIDE RECORDS SUMMARY | 2024-05-21 20:14 | XMS_ITS | Encounter Summary ---
[place] [address] Care Team Providers Care Vitamin Manager Name Role Phone Kaylee Jaquez Primary Care Provider Encounter Details Date Type Department Care Team (Late st Contact Info) Description 08/25/2023 Telephone [place] [phone] BrandyChina boycehector Social History Tobacco Use Types Packs/Day Years [...] Miscellaneous Notes * Telephone Encounter - Tahmina davis - 08/25/2023 8:28 AM EDT Danielle Mills [id number] Diagnosis/Indication: barretts Please review patient chart to [...] procedure? No You must have a responsible republican who will drive you to your procedure, stay on campus for the entire duration of your procedure, and drive you home from your procedure. Who will likely be your delivery driver for the procedure? *Please Verify the [...] on filedocumented in this encounter Care Teams Vitamin Manager Relationship Specialty Start Date End Date Kaylee Jaquez PA [address] [address] PCP - General Family Medicine 01/18/22 documented as of this encounter
--- OUTSIDE RECORDS SUMMARY | 2024-05-21 20:14 | XMS_ITS | Encounter Summary ---
Author Organization [facility] Address [address] [place] [address] Care Team Providers Care Packer Sausage And Wiener Name Role Phone Kenia Hernandez SKEWER UP Primary Care Provider [phone] Encounter Details Date Type Department Care Team (Late st Contact Info) Description 09/09/2017 Results Only [facility] [phone] Tom Huber MD [address] [place] [phone] Social History Tobacco Use Types Packs/Day [...] ? DANIELLE FARIAS ? Accession #: ? [id number] ? : ? 1960 (Age: 57) ??F [...] (ASCP) 09/09/2017 7:35 AM End of Report [facility] 09/09/2017 0:02 EDT 09/09/2017 0:02 EDT us Tom Huber MD PATHOLOGY ORDERABLES Final Re sult [facility] [address] [place] [address] documented in this encounter Visit Diagnoses Not on filedocumented in this encounter Care Teams Packer Sausage And Wiener Relationship Specialty Start Date End Date Kenia Hernandez, SKEWER UP [address] [place] [address] PCP - General 06/04/16 11/29/20 documented as of this encounter
--- OUTSIDE RECORDS SUMMARY | 2024-05-21 20:14 | XMS_ITS | Encounter Summary ---
Author Organization [place] [address] Care Team Providers Care Glassware Engraver Name Role Phone Kaylee Jaquez Primary Care Provider [phone] Reason for Visit * Reason Onset Date Comments Medication Refill 02/12/2024 Encounter Details Date Type Department Care Team (Late st Contact Info) Description 02/12/2024 Refill Cardiology at [address] [address] Lc Garcia MD [facility] [place] [address] Medication Refill Social History Tobacco Use Types [...] Encounter - Annette Houser, RN - 02/12/2024 4:16 PM EDT ----- Message from Lc Garcia sent at [...] RN [facility] Team Nurse [phone] documented in this encounter Plan of Treatment Not on file documented as of this encounter Visit Diagnoses Diagnosis NSTEMI (non-ST elevated myocardial infarction) Acute myocardial infarction, subendocardial infarction, episode of care unspecified documented in this encounter Care Teams Glassware Engraver Relationship Specialty Start Date End Date Kaylee Jaquez PA [address] [place] [address] PCP - General Family Medicine 01/18/22 documented as of this encounter
--- OUTSIDE RECORDS SUMMARY | 2024-05-21 20:14 | XMS_ITS | Encounter Summary ---
Author Organization [facility] [place] [address] Care Team Providers Care Bottom Finisher Name Role Phone Kaylee Jaquez Primary Care Provider [phone] Reason for Visit * Reason Comments Medication Refill Encounter Details Date Type Department Care Team (Late st Contact Info) Description 07/27/2023 Refill Cardiology at [address] [address] Lc Garcia MD [facility] [place] [address] Medication Refill Social History Tobacco Use Types [...] unspecified documented in this encounter Care Teams Bottom Finisher Relationship Specialty Start Date End Date Kaylee Jaquez PA [address] [place] [address] PCP - General Family Medicine 01/18/22 documented as of this encounter
--- OUTSIDE RECORDS SUMMARY | 2024-05-21 20:14 | XMS_ITS | Encounter Summary ---
Author Organization [facility] [place] [address] Care Team Providers Care Core Machine Tender Name Role Phone Kaylee Jaquez Primary Care Provider Reason for Visit * Reason Onset Date Comments Medication Refill 08/04/2023 Encounter Details Date Type Department Care Team (Late st Contact Info) Description 08/04/2023 Refill Cardiology at [address] [address] Lc Garcia MD [facility] [place] [address] Medication Refill Social History Tobacco Use Types [...] unspecified documented in this encounter Care Teams Core Machine Tender Relationship Specialty Start Date End Date Kaylee Jaquez PA [address] [place] [address] PCP - General Family Medicine 01/18/22 documented as of this encounter
--- OUTSIDE RECORDS SUMMARY | 2024-05-21 20:14 | XMS_ITS | Encounter Summary ---
Author Organization [facility] [place] [address] Care Team Providers Care Surface Grinder Tender Name Role Phone Kaylee Jaquez Primary Care Provider [phone] Reason for Visit * Reason Comments Medication Refill Encounter Details Date Type Department Care Team (Late st Contact Info) Description 11/07/2023 Refill Cardiology at [address] [address] Lc Garcia MD [facility] [place] [address] Medication Refill Social History Tobacco Use Types [...] DAYS Annette Houser RN Cardiology Clinic at [facility] [address] documented in this encounter Plan of Treatment Not on file documented as of this encounter Visit Diagnoses Diagnosis Hyperlipidemia, unspecified hyperlipidemia type documented in this encounter Care Teams Surface Grinder Tender Relationship Specialty Start Date End Date Kaylee Jaquez PA [address] [place] [address] PCP - General Family Medicine 01/18/22 documented as of this encounter
--- OUTSIDE RECORDS SUMMARY | 2024-05-21 20:14 | XMS_ITS | Encounter Summary ---
[place] [address] Care Team Providers Care Chief Meter Reader Name Role Phone Kaylee Jaquez Primary Care [...] on filedocumented in this encounter Care Teams Chief Meter Reader Relationship Specialty Start Date End Date Kaylee Jaquez PA [address] [place] [address] PCP - General Family Medicine 01/18/22 documented as of this encounter
--- OUTSIDE RECORDS SUMMARY | 2024-05-21 20:14 | XMS_ITS | Encounter Summary ---
Author Organization [facility] [place] [address] Care Team Providers Care Dentures Lab Technician Name Role Phone Kaylee Jaquez Primary Care Provider Reason for Visit * Auth/Cert (Routine) Specialty Diagnoses / Procedures Referred By Jasson mendoza Referred To Contact Diagnoses Gastroparesis villegas's surveillance Procedures PRO UPPER GI ENDOSCOPY, DIAGNOSTIC PRO UPPER GI ENDOSCOPY, BIOPSY PRO UP GI ENDOSCOPY, REMV TUMOR, SNARE PRO ANES, UGI ENDOSCOPY NOS EGD, UPPER GI ENDOSCOPY (WRVU 2.09) Nimesh Alicia MD [facility] [place] [address] [facility] [[email or web address]] Referral ID Status Reason Start Date Expiration Date Visits Re quested Visits Authorized [id number] 1 1 Encounter Details Date Type Department Care Team (Latest Contact Info) Description 10/03/2023 9:38 AM EDT - 10/03/2023 12:15 PM EDT Hospital [place] [address] Nimesh Alicia MD [facility] [place] [address] Discharge Disposition: Home Social History Tobacco Use [...] the day after the procedure, use an mzfs-yxt-lkfnoyt spray to numb your throat. Sucking on [...] occurs, please contact your Doctor. Please call [phone] before 8pm Mon-Fri with problems, questions or concerns. If you call after 8pm or on weekends, call the Hospital at [phone] and ask to speak to the [place] donkey engine firer/fireman and the machine room operator will contact that person for you. When should you call for help? Call [phone] anytime you think you may need emergency [...] any problems. Where can you learn more? [facility] View your After Visit Summary and more online at [email or web address] If you would like to provide feedback about your hospital experience, please call the Office of Patient and Family Relations at . If you have received this After Visit Summary in error, please immediately return it in person to the department, or notify the [facility] Privacy Office by calling toll free at between the hours of 8AM and 5PM to arrange for our retrieval of the documents at no cost to you. Content Version: 12.2 ?? [phone] [employer]. Care instructions adapted under license by [facility]. If you have questions about a medical condition or this instruction, always ask your healthcare professional. [employer] disclaims any warranty or liability for your [...] the day after the procedure, use an tsny-ado-lwzgxht spray to numb your throat. Sucking on [...] occurs, please contact your Doctor. Please call [phone] before 8pm Mon-Fri with problems, questions or concerns. If you call after 8pm or on weekends, call the Hospital at [phone] and ask to speak to the [employer] [employer] donkey engine firer/fireman and the machine room operator will contact that person for you. When should you call for help? Call [phone] anytime you think you may need emergency [...] any problems. Where can you learn more? [facility] View your After Visit Summary and more online at [email or web address] If you would like to provide feedback about your hospital experience, please call the Office of Patient and Family Relations at . If you have received this After Visit Summary in error, please immediately return it in person to the department, or notify the [facility] Privacy Office by calling toll free at between the hours of 8AM and 5PM to arrange for our retrieval of the documents at no cost to you. Content Version: 12.2 ?? [phone] [employer]. Care instructions adapted under license by [facility]. If you have questions about a medical condition or this instruction, always ask your healthcare professional. 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 ??Separate Pathology report to follow Nimesh Alicia MD PATHOLOGY/CYTOLOGY O RDERABLES [facility] [place] [address] * Surgical Pathology Report (10/03/2023 10:58 AM EDT) Final Diagnosis [id number] ? Location: 4T; EA10; A The signing pathologist has (i) examined the relevant preparation(s) for the specimen(s) and (ii) rendered or confirmed the diagnosis(es). . ?Surgical Pathology DIAGNOSIS A - GE junction,biopsy (Multiple): - ??Squamous esophageal and cardiac mucosa within normal limits. - ??No goblet cell metaplasia is seen. Electronically signed by: ?Cleopatra Merrill MD Verified: ??10/14/2023 15:24 ??Pathologist Performed at: ??-[facility] Dept. of Pathology, [place] [address] Legal Coordinator: Cleopatra Merrill MD, FCAP, ??CLIA Certificate: [id number] SPECIMEN(S) SUBMITTED A - GE junction bx's. [...] EDT Nimesh Alicia MD PATHOLOGY/CYTOLOGY O RDERABLES [facility] [place] [id number] * UPPER GI ENDOSCOPY (10/03/2023 10:50 AM EDT) UPPER GI ENDOSCOPY [facility] Endoscopy ___ Procedure Date: 10/03/2023 10:50 AM ? Patient Name: Danielle Mills ? Date of : 1960 ? Age: 63 ? Order #: [id number] ? Instrument Name: [id number] ? ___ Procedure: ? Upper GI endoscopy Indications: ? Gastro-esophageal reflux disease, ? Follow-up of Villegas's esophagus Providers: ? Carlos Christian ? Evelyne, RN, Carlos Veliz Referring : ?Kaylee Jaquez Medicines: [...] Procedure Code(s): ? --- Professional --- ? 12252, Esophagogastroduode noscopy, ? flexible, transoral; with biopsy, ? single or multiple Diagnosis Code(s): ? --- Professional --- ? K21.9, Gastro-esophageal reflux ? disease without esophagitis ? K22.70, Villegas's esophagus without ? dysplasia ? --- Technical --- ? K21.9, Gastro-esophageal reflux ? disease without esophagitis ? K22.70, Villegas's esophagus without ? dysplasia CPT copyright 2021 [employer]. All rights reserved. The codes documented in this report are preliminary and upon membership sales advisor review may be revised to meet current [...] MD POINT OF CARE [place] [address] documented in this encounter Visit Diagnoses Not [...] CRNA) documented in this encounter Care Teams Dentures Lab Technician Relationship Specialty Start Date End Date Kaylee Jaquez PA [address] [place] [address] PCP - General Family Medicine 01/18/22 documented as of this encounter
--- OUTSIDE RECORDS SUMMARY | 2024-05-21 20:14 | XMS_ITS | Encounter Summary ---
[place] [address] Care Team Providers Care Business Center Representative Name Role Phone Kaylee Jaquez Primary Care [...] filedocumented in this encounter Care Teams Business Center Representative Relationship Specialty Start Date End Date Kaylee Jaquez PA [address] [place] [address] PCP - General Family Medicine 01/18/22 documented as of this encounter
--- OUTSIDE RECORDS SUMMARY | 2024-05-21 20:14 | XMS_ITS | Encounter Summary ---
[place] [address] Care Team Providers Care Motor Tune Up Specialist Name Role Phone Kaylee Jaquez Primary Care Provider Reason for Referral * Diagnostic Test (Routine) - Closed Specialty Diagnoses / Procedures Referred By Contac t Referred To Contact Cardiology Diagnoses Palpitations Procedures Ziopatch 48 Hrs-15 Days Lc Garcia MD [facility] [place] [address] [facility] [place] [address] Referral ID Status Reason Start Date Expiration Date V isits Requested Visits Authorized [id number] Closed Specialty Service Requested 01/16/2024 01/15/2025 1 1 Reason for Visit * Diagnostic Test (Routine) - Closed Specialty Diagnoses / Procedures Referred By Contac t Referred To Contact Cardiology Diagnoses Palpitations Procedures Ziopatch 48 Hrs-15 Days Lc Garcia MD [facility] [place] [address] [facility] [place] [address] Referral ID Status Reason Start Date Expiration Date V isits Requested Visits Authorized [id number] Closed Specialty Service Requested 01/16/2024 01/15/2025 1 1 Encounter Details Date Type Department Care Team (Latest Contact Info) Description 01/16/2024 1:30 PM EDT - 01/16/2024 11:59 PM EDT Hospital Encounter Non-Invasive Cardiology Lab [facility] [place] [address] Lc Garcia MD [facility] [place] [address] Palpitations Discharge Disposition: Home Social History Tobacco Use [...] Sig Dispensed Refills Start Date End Date prucalopride (Motegrity) 2 mg tabletIndications:Gas troparesis Take 1 tablet by mouth daily. 90 tablet 3 11/17/2023 Repatha Pushtronex 420 mg/3.5 mL wearable injectorIndications:H yperlipidemia, unspecified hyperlipidemia type INJECT 3.5ML SUBCUTANEOUSLY VIA WEARABLE INJECTOR ROUTE EVERY 30 DAYS 12 mL 3 11/07/2023 semaglutide (Ozempic) 1 mg/dose (4 mg/3 mL) [...] mouth daily. 90 tablet 3 08/04/2023 02/12/2024 documented as of this encounter Plan of Treatment Not on file documented as of this encounter Procedures Procedure Name Priority Date/Time Associated Diagnosis Comments ZIOPATCH 48 HRS-15 DAYS Routine 01/16/2024 1:56 PM EDT Palpitations documented in this encounter Results * Ziopatch 48 Hrs-15 Days (01/16/2024 1:56 PM EDT) Total Enrollment Period [id number] IRHYTHM Anatomical Region Laterality Modality Other 01/16/2024 Narrative 02/05/2024 3:58 PM EDT [facility] ? Zio Patch Ambulatory Cardiac Event [...] tab. ??For patients accessing the study from [facility] (My Chart), click on the link or links found in the IMAGES area below the text of the report. Skyler Snowden MD [facility] Lc Garcia MD CARDIAC SERVICES ORD ERABLES documented in this encounter Visit Diagnoses Diagnosis Palpitations documented in this encounter Care Teams Motor Tune Up Specialist Relationship Specialty Start Date End Date Kaylee Jaquez PA [address] [place] [address] PCP - General Family Medicine 01/18/22 documented as of this encounter
--- OUTSIDE RECORDS SUMMARY | 2024-05-21 20:14 | XMS_ITS | Encounter Summary ---
[place] [address] Care Team Providers Care Monument Erector Name Role Phone Kaylee Jaquez Primary Care [...] on filedocumented in this encounter Care Teams Monument Erector Relationship Specialty Start Date End Date Kaylee Jaquez PA [address] [place] [address] PCP - General Family Medicine 01/18/22 documented as of this encounter
--- OUTSIDE RECORDS SUMMARY | 2024-05-21 20:14 | XMS_ITS | Encounter Summary ---
Author Organization [facility] [place] [address] Care Team Providers Care Chip Unloader Name Role Phone Kaylee Jaquez Primary Care Provider Reason for Visit * Reason Onset Date Comments Medication Refill 07/30/2023 Encounter Details Date Type Department Care Team (Late st Contact Info) Description 07/30/2023 Refill Cardiology at [address] [address] Lc Garcia MD [facility] [place] [address] Medication Refill Social History Tobacco Use Types [...] unspecified documented in this encounter Care Teams Chip Unloader Relationship Specialty Start Date End Date Kaylee Jaquez PA [address] [place] [address] PCP - General Family Medicine 01/18/22 documented as of this encounter
--- OUTSIDE RECORDS SUMMARY | 2024-05-21 20:14 | XMS_ITS | Encounter Summary ---
Author Organization [facility] Address [address] [place] [address] Care Team Providers Care Hand Surgeon Name Role Phone Kenia Hernandez Arnaldo LABOUR MARKET ECONOMIST Primary Care Provider [phone] Francy Lwoe LABOUR MARKET ECONOMIST Primary Care Provider [phone] Encounter Details Date Type Department Care Team (Late st Contact Info) Description 10/14/2019 Lab Requisition [facility] Pathology & Laboratory Medicine - [address] [address] Outr Resulting Lab, Provider Social History Tobacco [...] 10:00 EDT) Hold Hold 10/14/2019 17:17 EDT [facility] Blood VENOUS BLOOD / Unknown 10/13/2019 10:00 EDT 10/14/2019 16:02 EDT us Provider Outr Resulting Lab LAB INFO SERVICE AND SUPPORT & PHONE RESULT Final Result Performing Organization Address City/[facility]/ZIP Co de Phone Number [facility] [address] [place] [address] * T3 FREE (10/13/2019 10:00 EDT) T3, Free 4.4 2.8 - 5.3 pg/mL 10/14/2019 16:39 EDT [facility] Blood VENOUS BLOOD / Unknown 10/13/2019 10:00 EDT 10/14/2019 16:01 EDT us Provider Outr Resulting Lab CHEMISTRY & BLOOD GA S ORDERABLES Final Result Performing Organization Address [facility] Co de Phone Number [facility] [address] [place] [address] * (ABNORMAL) THYROID ANTIBODIES (10/13/2019 10:00 EDT) Anti-Thyroglobulin 61(H) <=60 U/mL 2019 10:54 EDT [facility] Thyroperoxidase Ab 324(H) <=60 U/mL 2019 10:54 EDT [facility] Blood VENOUS BLOOD / Unknown 10/13/2019 10:00 EDT 10/14/2019 16:01 EDT us Provider Outr Resulting Lab CHEMISTRY & BLOOD GA S ORDERABLES Final Result Performing Organization Address [facility]/ZIP Co de Phone Number [facility] [address] [place] [address] documented in this encounter Visit Diagnoses Not on filedocumented in this encounter Care Teams Hand Surgeon Relationship Specialty Start Date End Date Kenia Hernandez NP [address] [place] [address] PCP - General 06/04/16 11/29/20 Francy Lowe LABOUR MARKET ECONOMIST [address] [place] [address] PCP - General 11/30/20 documented as of this encounter
--- OUTSIDE RECORDS SUMMARY | 2024-05-21 20:14 | XMS_ITS | Encounter Summary ---
Author Organization [facility] [place] [address] Care Team Providers Care Waste Collector Name Role Phone Kaylee Jaquez Primary Care Provider Reason for Referral * Consultation (Routine) - Authorized Specialty Diagnoses / Procedures Referred By Contmacie t Referred To Contact Neurosurgery Diagnoses Low back pain, unspecified back pain laterality, unspecified chronicity, unspecified whether sciatica present Celia López DO [address] [address] Mary [place] [address] Referral ID Status Reason Start Date Expiration Date Visits Requested Visits Authorized [id number] Authorized Consult, Test & Treat 04/30/2024 04/30/2025 1 1 Encounter Details Date Type Department Care Team (Late st Contact Info) Description 04/30/2024 Transcribe Orders eD Incoming Referrals [phone] Celia López DO [address] [address] Low back pain, unspecified back pain laterality, unspecified chronicity, unspecified whether sciatica present Social History Tobacco [...] Associated Diagnoses Orde r Schedule Referral to Neurosurgery Outpatient Referral Routine Low back pain, unspecified back pain laterality, unspecified chronicity, unspecified whether sciatica present Ordered: 04/30/2024 documented as of this encounter Visit Diagnoses Diagnosis Low back pain, unspecified back pain laterality, unspecified chronicity, unspecified whether sciatica present documented in this encounter Care Teams Waste Collector Relationship Specialty Start Date End Date Kaylee Jaquez PA [address] [place] [address] PCP - General Family Medicine 01/18/22 documented as of this encounter
--- OUTSIDE RECORDS SUMMARY | 2024-05-21 20:14 | XMS_ITS | Encounter Summary ---
Author Organization [facility] Address [facility] [place] [address] Care Team Providers Care Display Mechanic Name Role Phone Kaylee Jaquez Primary Care Provider Encounter Details Date Type Department Care Team (Late st Contact Info) Description 07/31/2023 11:30 AM EDT Office [place] [address] Marta Cabral MD [facility] [place] [address] Type 2 diabetes, controlled, with neuropathy; Delano's [...] ng/mL 25-OH Vit D Interp Deficient TSH [place] Result Value Ref Range TSH 1.59 0.27 [...] Placed This Encounter Procedures Hemoglobin A1c TSH [place] Vitamin D, 25-Hydroxy LDL Cholesterol, Direct X-ray/Imaging study: Office Thyroid ultrasound for thyroid nodule size after 2-4 year at our office(by the same stripping shovel operator). 4. RTC: 1-2 years for thyroid [...] our clinic 10/22/19 US from outside at [facility]. Procedure: Real-time ultrasonography limited to the thyroid gland and lateral neck area with and without color doppler were obtained using a [employer] Flex Focus 400 US machine and an [...] down from 8.2 to 6.1-6.5% excellent. Addendum 09/16/23:eD messages Good morning, Ozempic has done wonders for my A1C but it???s making my gastoparesis worse. I can???t have normal bowel movements, I???m always feeling bloated. What is a good medication, besides going back on insulin, that we could try? I haven???t spoken with my GI doctor yet, but I do intend to. Thank you Danielle Mills => Better to lower ozempic dose from [...] difficulty swallowing. Thyroid US at [facility] on 10/22/19 showed a Rt thyroid nodule [...] US in May 2021. 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 4. RTC: 1-2 years for thyroid [...] JUAN PABLO Waterman documented in this encounter Miscellaneous Notes * Addendum Note - Marta Cabral MD - 07/31/2023 11:30 AM EDTAddended by: MARTA CABRAL on: 09/16/2023 01:16 PM Modules accepted: Orders documented in this encounter Plan of Treatment Not on file documented as of this encounter Results * LDL Cholesterol, Direct (07/31/2023 12:12 PM EDT) LDL Cholesterol, Direct 43 mg/dL [facility] Comment: Desirable: ? <100 mg/dL Above Desirable: 100-129 mg/dL Borderline High: 130-159 mg/dL High: ?160-189 mg/dL Very High: ? >yh=683 mg/dL If not reaching LDL goals on [...] Lab Marta Cabral MD CHEMISTRY ORDERAB LES [facility] [place] [address] * (ABNORMAL) Vitamin D, 25-Hydroxy (07/31/2023 12:12 PM EDT) Vitamin D Total 25 OH 20(L) 21 - 100 ng/mL [facility] Vit D Interp Deficient [facility] Blood 07/31/2023 12:1 2 PM EDT 07/31/2023 12:43 PM EDT Narrative Resulting Agency Comment Spec In Lab Marta Cabral MD CHEMISTRY ORDERAB LES [facility] [place] [address] * TSH [place] (07/31/2023 12:12 PM EDT) Thyroid Stimulating Hormone 1.59 0.27 - 4.20 mcIU/mL [facility] Comment: Reference Interval (mcIU/mL): Females: ??First Trimester: 0.23-3.88 ??Second Trimester: 0.22-3.90 ??Third Trimester: 0.44-4.66 Blood 07/31/2023 12:1 2 PM EDT 07/31/2023 12:43 PM EDT Narrative Resulting Agency Comment Spec In Lab Marta Cabral MD CHEMISTRY ORDERAB LES Performing Organization Address [facility] Co de Phone Number [facility] [place] [address] * (ABNORMAL) Hemoglobin A1c (07/31/2023 12:12 PM EDT) Hemoglobin A1c 6.9(H) 4.3 - 5.6 % [facility] Comment: Reference Range: 4.3 - [...] Mellitus, Diabetes Care 2013; 36: Suppl. 1, J18-01 Estimated Average Glucose 150 mg/dL [facility] Blood 07/31/2023 12:1 2 PM EDT 07/31/2023 12:43 PM EDT Narrative Resulting Agency Comment Spec In Lab Marta Cabral MD CHEMISTRY ORDERAB LES Performing Organization Address [facility] Co de Phone Number [facility] [place] [address] documented in this encounter Visit Diagnoses Diagnosis Type 2 diabetes, controlled, with neuropathy Type II or unspecified type diabetes mellitus with neurological manifestations, not stated as uncontrolled Delano's thyroiditis Chronic lymphocytic thyroiditis Vitamin D deficiency Unspecified vitamin D deficiency 3-vessel CAD Coronary atherosclerosis of unspecified type of vessel, [place] or graft documented in this encounter Care Teams Display Mechanic Relationship Specialty Start Date End Date Kaylee Jaquez PA [address] [place] [address] PCP - General Family Medicine 01/18/22 documented as of this encounter
--- OUTSIDE RECORDS SUMMARY | 2024-05-21 20:14 | XMS_ITS | Encounter Summary ---
Author Organization [facility] Address [address] [place] [address] Care Team Providers Care Dobby Loom Weaver Name Role Phone Vicentevashti Kenia Mcintosh DIRECTOR [employer] Primary Care Provider [phone] Francy Lowe DIRECTOR [employer] Primary Care Provider [phone] Reason for Referral * Radiology Services (Routine) - Closed Specialty Diagnoses / Procedures Referred By Jasson mendoza Referred To Contact Diagnoses Right hip pain Procedures XR HIP RIGHT 2-3 VIEWS, OPTIONAL PELVIS Helena Ramirez NP Phone: tel: fax: Referral ID Status Reason Start Date Expiration Date Visits Re quested Visits Authorized [id number] Closed 11/30/2020 1 1 Reason for Visit * Reason Onset Date Comments Pain 11/27/2020 Encounter Details Date Type Department Care Team (Late st Contact Info) Description 11/27/2020 Orders Only [facility] Total Joint Program - [place] [address] [place] [address] Helena Ramirez NP [address] [place] [address] Right hip pain (Primary Dx) [...] thigh documented in this encounter Care Teams Dobby Loom Weaver Relationship Specialty Start Date End Date Kenia Hernandez NP [address] [place] [address] PCP - General 06/04/16 11/29/20 Francy Lowe NP [address] [place] [address] PCP - General 11/30/20 documented as of this encounter
--- OUTSIDE RECORDS SUMMARY | 2024-05-21 20:14 | XMS_ITS | Encounter Summary ---
[place] [address] Care Team Providers Care Entertainment Musician Name Role Phone Kaylee Jaquez Primary Care Provider [phone] Encounter Details Date Type Department Care Team [...] on filedocumented in this encounter Care Teams Entertainment Musician Relationship Specialty Start Date End Date Kaylee Jaquez PA [address] [place] [address] PCP - General Family Medicine 01/18/22 documented as of this encounter
--- OUTSIDE RECORDS SUMMARY | 2024-05-21 20:14 | XMS_ITS | Encounter Summary ---
Author Organization [facility] Address [facility] [place] [address] Care Team Providers Care Health Workers Name Role Phone Kaylee Jaquez Primary Care Provider [phone] Encounter Details Date Type Department Care Team (Latest Contact Info) Description 08/15/2023 11:40 AM EDT Office Visit Cardiology at [address] [address] Lc Garcia MD [facility] [place] [address] ASCVD (arteriosclerotic cardiovascular disease); Hyperlipidemia, unspecified hyperlipidemia [...] Garcia MD - 08/15/2023 11:40 AM EDT [facility] Outpatient Cardiology Patient: Danielle Mills : 1960 Reason for follow up: ASCVD chest pain PCP: JUAN PABLO Waterman History of present illness: Danielle Mills is a 63 y.o. 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 History is notable for multivessel PCI in the context of non- STEMI in January 2022 performed at [facility] [place] [place], referred from [facility]. The patient was noted to have [...] Constipation Added automatically from request for surgery [id number] Non-ST elevation myocardial infarction (NSTEMI) NSTEMI (non-ST [...] 4.67) performed by Nimesh Alicia MD at [facility] ENDOSCOPY PRO INJECTION DX/THER SBST INTRLMNR LMBR/SAC W/IMG GDN Midline 01/23/2023 INJECTION, EPIDURAL, LUMBAR OR SACRAL (CAUDAL), WITH IMAGING GUIDANCE (WRVU 1.8) performed by Alvarez Monteiro MD at [facility] PAIN MGMT MSO PRO INJECTION DX/THER SBST INTRLMNR LMBR/SAC W/IMG GDN Midline 01/23/2023 Lumbar or Sacral Epidural Steroid Inj Sacral (Caudal) ([id number]) performed by Alvarez Monteiro MD at [facility] PAIN MGMT MSO PRO UPPER GI ENDOSCOPY, BIOPSY N/A 11/19/2018 EGD WITH BIOPSY (WRVU 2.49) performed by Nimesh Alicia MD at [facility] ENDOSCOPY RECTOCELE REPAIR 2014 Dr. Boo @ [facility] SHOULDER SURGERY Left 06/05/2017 L shoulder AC [...] counseling, review of records, and documentation. Lc Garcia MD, PARTH, FACC, FACP, FASE Cardiovascular Medicine Thank you for this referral. If you would like to discuss this patient, please contact me at [phone] or by email at [email or web address]. CC: JUAN PABLO Waterman documented in this encounter Plan of Treatment Not on file documented as of this encounter Visit Diagnoses Diagnosis ASCVD (arteriosclerotic cardiovascular disease) Unspecified cardiovascular disease Hyperlipidemia, unspecified hyperlipidemia type Non-cardiac chest pain Other chest pain Current smoker Tobacco use disorder documented in this encounter Care Teams Health Workers Relationship Specialty Start Date End Date Kaylee Jaquez PA [address] [place] [address] PCP - General Family Medicine 01/18/22 documented as of this encounter
--- OUTSIDE RECORDS SUMMARY | 2024-05-21 20:15 | XMS_ITS | Encounter Summary ---
Author Organization [facility] [place] [address] Care Team Providers Care Medicaid Eligibility Specialist Name Role Phone Kaylee Jaquez Primary Care Provider Reason for Visit * Reason Onset Date Comments Medication Refill 11/01/2022 Encounter Details Date Type Department Care Team (Late st Contact Info) Description 11/01/2022 Refill [place] [address] Marta Rivera MD [facility] [place] [address] Social History Tobacco Use Types Packs/Day Years [...] on filedocumented in this encounter Care Teams Medicaid Eligibility Specialist Relationship Specialty Start Date End Date Kaylee Jaquez PA [address] [place] [facility][NOTE 3][place], [place] [address] PCP - General Family Medicine 01/18/22 documented as of this encounter
--- OUTSIDE RECORDS SUMMARY | 2024-05-21 20:15 | XMS_ITS | Encounter Summary ---
[place] [address] Care Team Providers Care Tailor Garment Fitter Name Role Phone Kaylee Jaquez Primary Care [...] on filedocumented in this encounter Care Teams Tailor Garment Fitter Relationship Specialty Start Date End Date Kaylee Jaquez PA [address] [place] [address] PCP - General Family Medicine 01/18/22 documented as of this encounter
--- OUTSIDE RECORDS SUMMARY | 2024-05-21 20:15 | XMS_ITS | Encounter Summary ---
Author Organization [facility] [place] [address] Care Team Providers Care Supervisor Seaming Name Role Phone Kaylee Jaquez Primary Care Provider Reason for Visit * Auth/Cert (Routine) Specialty Diagnoses / Procedures Referred By Jasson mendoza Referred To Contact Diagnoses Lumbar radiculopathy lumbar radiculopathy Procedures PRO INJECTION DX/THER SBST INTRLMNR LMBR/SAC W/IMG GDN PRO INJECTION DX/THER SBST INTRLMNR LMBR/SAC W/IMG GDN INJECTION, EPIDURAL, LUMBAR OR SACRAL (CAUDAL), WITH IMAGING GUIDANCE (WRVU 1.8) Lumbar or Sacral Epidural Steroid Inj Sacral (Caudal) (42397) Alvarez Monteiro MD [facility] [place] [address] [facility] Referral ID Status Reason Start Date Expiration Date Visits Re quested Visits Authorized [id number] 1 1 Encounter Details Date Type Department Care Team (Latest Contact Info) Description 01/23/2023 10:13 AM EDT - 01/23/2023 11:37 AM EDT Hospital En[place] [address] Alvarez Monteiro MD [facility] [place] [address] Left lumbar radiculopathy Discharge Disposition: Home Social [...] on file) Attending Physician: Alvarez Monteiro MD [facility] PREPROCEDURE HISTORY [...] Attending Physician [facility] [place] [address] / documented in this encounter Miscellaneous Notes * Op Note - Alvarez Monteiro MD - 01/23/2023 11:25 AM EDT Pain Management Operative Note Patient Name: Danielle Mills : [id number] MR#: [id number] Case Date: 01/23/2023 Surgeon: Surgeon(s) and Role: [...] procedure. Alvarez Monteiro MD Pain Management Center Professor Of Fine Art of Anesthesiology [facility] [employer] [address] [address] / [facility] CC: Unknown None documented in this encounter Plan of Treatment Not on file documented as of this encounter Procedures Procedure Name Priority Date/Time Associated Diagnosis Comments Injection Dx/Ther Sbst Intrlmnr Lmbr/Sac W/Img Gdn (19218) 01/23/2023 11:22 AM EDT Left lumbar radiculopathy Injection Dx/Ther Sbst Intrlmnr Lmbr/Sac W/Img Gdn (36562) 01/23/2023 11:22 AM EDT Left lumbar radiculopathy [...] er: Arvind Gordon MD - Comment: JM) iohexoL (Omnipaque) (240 mg/mL) solution (CANCELED) PRN, Starting on Ayde 01/23/23 at 1137, Until Ayde 01/23/23 at 1338, Intra-Operative (Intra-Procedure), Routine 1137 (Given - Provid er: Arvind Gordon MD - Comment: JM) lidocaine (pf) (Xylocaine) (10 mg/mL) 1% injection (CANCELED) PRN, Starting on Ayde 01/23/23 at 1136, Until Ayde 01/23/23 at 1338, Intra-Operative (Intra-Procedure), Routine 1136 (Given - Provid er: Arvind Gordon MD - Comment: JM) documented in this encounter Care Teams Supervisor Seaming Relationship Specialty Start Date End Date Kaylee Jaquez PA [address] [address] PCP - General Family Medicine 01/18/22 documented as of this encounter
--- OUTSIDE RECORDS SUMMARY | 2024-05-21 20:15 | XMS_ITS | Encounter Summary ---
[place] [address] Care Team Providers Care Toll Gate Tender Name Role Phone Kaylee Jaquez Primary Care Provider Reason for Referral * Diagnostic Test (Routine) - Closed Specialty Diagnoses / Procedures Referred By Contac t Referred To Contact Radiology Diagnoses Chest pain, unspecified type ASCVD (arteriosclerotic cardiovascular disease) Procedures NM Exercise Stress and Rest Myocardial Perfusion Lc Garcia MD [facility] [place] [address] [place] [address] Referral ID Status Reason Start Date Expiration Date V isits Requested Visits Authorized [id number] Closed Specialty Service Requested 05/30/2023 11/28/2024 1 1 * Diagnostic Test (Routine) - Closed Specialty Diagnoses / Procedures Referred By Contac t Referred To Contact Radiology Diagnoses Chest pain, unspecified type ASCVD (arteriosclerotic cardiovascular disease) Procedures NM Exercise Stress CT Component Lc Garcia MD [facility] [place] [address] [place] [address] Referral ID Status Reason Start Date Expiration Date V isits Requested Visits Authorized [id number] Closed Specialty Service Requested 05/30/2023 11/27/2024 1 1 * Consultation (Routine) - Closed Specialty Diagnoses / Procedures Referred By Contac t Referred To Contact Diagnoses ASCVD (arteriosclerotic cardiovascular disease) Cigarette smoker Lc Garcia MD [facility] [place] [address] [facility] [place] [address] Referral ID Status Reason Start Date Expiration Date V isits Requested Visits Authorized [id number] Closed Consult, Test & Treat 05/30/2023 05/29/2024 1 1 Encounter Details Date Type Department Care Team (Latest Contact Info) Description 05/30/2023 1:20 PM EST Office Visit Cardiology at [address] [address] Lc Garcia MD [facility] [place] [address] NSTEMI (non-ST elevated myocardial infarction); Chest pain, [...] Garcia MD - 05/30/2023 1:20 PM EST [facility] Outpatient Cardiology Patient: Danielle Mills : 1960 Reason for follow up: ASCVD, chest pain PCP: JUAN PABLO Waterman History of present illness: Danielle Mills is a 62 y.o. female with multivessel ASCVD who presents to [facility] cardiovascular care in the setting of her prior crossing flagman departing a local practice. History is notable for multivessel PCI in the context of non- STEMI in January 2022 [place] [facility] [place] [facility]. The patient was noted to have [...] not following with Dr. Carlos Jenkins at [facility]. She was switched to Rep[place] after both [...] Constipation Added automatically from request for surgery [id number] Non-ST elevation myocardial infarction (NSTEMI) NSTEMI (non-ST [...] 4.67) performed by Nimesh Alicia MD at [facility] ENDOSCOPY PRO INJECTION DX/THER SBST INTRLMNR LMBR/SAC W/IMG GDN Midline 01/23/2023 INJECTION, EPIDURAL, LUMBAR OR SACRAL (CAUDAL), WITH IMAGING GUIDANCE (WRVU 1.8) performed by Alvarez Monteiro MD at [facility] PAIN MGMT MSO PRO INJECTION DX/THER SBST INTRLMNR LMBR/SAC W/IMG GDN Midline 01/23/2023 Lumbar or Sacral Epidural Steroid Inj Sacral (Caudal) (47083) performed by Alvarez Monteiro MD at [facility] PAIN MGMT MSO PRO UPPER GI ENDOSCOPY, BIOPSY N/A 11/19/2018 EGD WITH BIOPSY (WRVU 2.49) performed by Nimesh Alicia MD at [facility] ENDOSCOPY RECTOCELE REPAIR 2014 Dr. Boo @ [facility] SHOULDER SURGERY Left 06/05/2017 L [...] of the LPDA. This was a de maricarmne lesion. According [...] following this intervention was 5%. The final DENAI flow was 3. Assessment and recommendations: Cardiovascular [...] did agree to a referral to the [facility] [place] cessation program, which I placed. The [...] discuss this patient, please contact me at [phone] or by email at [email or web address]. CC: JUAN PABLO Waterman documented in this [...] who have questions please contact the health pet care technician that requested your imaging first. ? Narrative 06/12/2023 2:58 PM EST EXAMINATION: NM PHARMACOLOGIC STRESS AND REST MYOCARDIAL PERFUSION CLINICAL HISTORY: Chest pain/anginal equiv, 10yr CHD risk > 20%, EST candidate R07.9, Chest pain, unspecified - I25.10, Atherosclerotic heart disease of [place] coronary artery without angina pectoris TECHNIQUE: During [...] patients who have questions please contactthe health pet care technician that requested your imaging first. Lc Garcia [...] who have questions please contact the health pet care technician that requested your imaging first. ? Narrative 06/12/2023 2:58 PM EST EXAMINATION: NM PHARMACOLOGIC STRESS AND REST MYOCARDIAL PERFUSION CLINICAL HISTORY: Chest pain/anginal equiv, 10yr CHD risk > 20%, EST candidate R07.9, Chest pain, unspecified - I25.10, Atherosclerotic heart disease of [place] coronary artery without angina pectoris TECHNIQUE: During [...] patients who have questions please contactthe health pet care technician that requested your imaging first. Lc Garcia MD IM [place] ORDERABLES documented in this encounter Visit [...] disease documented in this encounter Care Teams Toll Gate Tender Relationship Specialty Start Date End Date Kaylee Jaquez PA [address] [place] [address] PCP - General Family Medicine 01/18/22 documented as of this encounter
--- OUTSIDE RECORDS SUMMARY | 2024-05-21 20:15 | XMS_ITS | Encounter Summary ---
[place] [address] Care Team Providers Care Battery Tester Field Name Role Phone Kaylee Jaquez Primary Care [...] on filedocumented in this encounter Care Teams Battery Tester Field Relationship Specialty Start Date End Date Kaylee Jaquez PA [address] [place] [address] PCP - General Family Medicine 01/18/22 documented as of this encounter
--- OUTSIDE RECORDS SUMMARY | 2024-05-21 20:15 | XMS_ITS | Encounter Summary ---
Author Organization [facility] [place] [address] Care Team Providers Care Fulling Machine Operator Name Role Phone Kaylee Jaquez Primary Care Provider Reason for Visit * Diagnostic Test (Routine) - Canceled Specialty Diagnoses / Procedures Referred By Jasson mendoza Referred To Contact Cardiology Diagnoses Chest pain, unspecified type ASCVD (arteriosclerotic cardiovascular disease) Procedures Nuclear Exercise Stress Cardiology Lc Garcia MD [facility] [place] [address] [facility] [place] [address] Referral ID Status Reason Start Date Expiration Date Visits Requested Visits Authorized [id number] Canceled Specialty Service Requested 05/30/2023 05/29/2024 1 1 Encounter Details Date Type Department Care Team (Latest Contact Info) Description 06/12/2023 8:59 AM EST Hospital Encounter Non-Invasive [place] [address] Lc Garcia MD [facility] [place] [address] Chest pain, unspecified type; ASCVD [...] disease documented in this encounter Care Teams Fulling Machine Operator Relationship Specialty Start Date End Date Kaylee Jaquez PA [address] [place] [address] PCP - General Family Medicine 01/18/22 documented as of this encounter
--- OUTSIDE RECORDS SUMMARY | 2024-05-21 20:15 | XMS_ITS | Encounter Summary ---
[place] [address] Care Team Providers Care Lap Machine Operator Name Role Phone Kaylee Jaquez [...] on filedocumented in this encounter Care Teams Lap Machine Operator Relationship Specialty Start Date End Date Kaylee Jaquez PA [address] [place] [address] PCP - General Family Medicine 01/18/22 documented as of this encounter
--- OUTSIDE RECORDS SUMMARY | 2024-05-21 20:15 | XMS_ITS | Encounter Summary ---
Author Organization [facility] Address [facility] [place] [address] Care Team Providers Care Containers Sales Representative Name Role Phone Kaylee Jaquez Primary Care Provider [phone] Reason for Visit * Reason Comments Medication Refill Encounter Details Date Type Department Care Team (Late st Contact Info) Description 11/15/2022 [place] [address] Nimesh Alicia MD [facility] [address] [place] [address] Social History Tobacco Use Types Packs/Day Years [...] on filedocumented in this encounter Care Teams Containers Sales Representative Relationship Specialty Start Date End Date Kaylee Jaquez PA [address] [place], [place] [address] PCP - General Family Medicine 01/18/22 documented as of this encounter
--- OUTSIDE RECORDS SUMMARY | 2024-05-21 20:15 | XMS_ITS | Encounter Summary ---
Author Organization [facility] [place] [address] Care Team Providers Care Automotive Refinish Technician Name Role Phone Kaylee Jaquez Primary Care Provider [phone] Encounter Details Date Type Department Care Team (Late st Contact Info) Description 12/25/2022 Ancillary Procedure Radiology Library at [facility] [place] [address] Kaylee Jaquez PA [address] [place] [address] Social History Tobacco Use Types Packs/Day Years [...] MR Spine (12/25/2022 12:00 AM EDT) Narrative RAD - 12/27/2022 8:59 AM EDT This exam is auto-finalizing. It's purpose is for storage only. Kaylee ALMEIDA [facility] FILM LIBRARY ORD ERABLES JAMES [place], [place] documented in this encounter Visit Diagnoses Not on filedocumented in this encounter Care Teams Automotive Refinish Technician Relationship Specialty Start Date End Date Kaylee Jaquez PA [address] [place] [address] PCP - General Family Medicine 01/18/22 documented as of this encounter
--- OUTSIDE RECORDS SUMMARY | 2024-05-21 20:15 | XMS_ITS | Encounter Summary ---
Author Organization [facility] Address [facility] [place] [address] Care Team Providers Care Director For Beauty School Name Role Phone Kaylee Jaquez Primary Care Provider Reason for Visit * Reason Onset Date Comments Medication Refill 07/07/2023 Encounter Details Date Type Department Care Team (Late st Contact Info) Description 07/07/2023 [place] [address] Nimesh Alicia MD [facility] [place] [address] Social History Tobacco Use Types Packs/Day Years [...] filedocumented in this encounter Care Teams Director For Beauty School Relationship Specialty Start Date End Date Kaylee Jaquez PA [address] [place] [facility] [place] [address] PCP - General Family Medicine 01/18/22 documented as of this encounter
--- OUTSIDE RECORDS SUMMARY | 2024-05-21 20:15 | XMS_ITS | Encounter Summary ---
[place] [address] Care Team Providers Care Apprentice Cosmetologist Name Role Phone Kaylee Jaquez Primary Care Provider [phone] Encounter Details Date Type Department Care Team [...] on filedocumented in this encounter Care Teams Apprentice Cosmetologist Relationship Specialty Start Date End Date Kaylee Jaquez PA [address] [place] [address] PCP - General Family Medicine 01/18/22 documented as of this encounter
--- OUTSIDE RECORDS SUMMARY | 2024-05-21 20:15 | XMS_ITS | Encounter Summary ---
Author Organization [place] [address] Care Team Providers Care Farm Reporter Name Role Phone Kaylee Jaquez Primary Care Provider Reason for Referral * Consultation (Routine) - Authorized Specialty Diagnoses / Procedures Referred By Contmacie t Referred To Contact Orthopaedics Diagnoses Pain of right hip PT ALREADY HAS APPT SCHED , ATTACHED REFERRAL TO APPT Kaylee Jaquez PA [address] [place] [address] Elvin Whiting MD [address] [place] [address] [place] [address] Referral ID Status Reason Start Date Expiration Date Visits Requested Visits Authorized [id number] Authorized Consult, Test & Treat PCP Updated and/or Approved 06/26/2023 06/25/2024 6 6 Encounter Details Date Type Department Care Team ([facility] st Contact Info) Description 06/26/2023 Transcribe Orders eDH Incoming Referrals [phone] Kaylee Jaquez PA [address] [place] [address] Pain of right hip Social History Tobacco [...] hip documented in this encounter Care Teams Farm Reporter Relationship Specialty Start Date End Date Kaylee Jaquez PA [address] [place] [address] PCP - General Family Medicine 01/18/22 documented as of this encounter
--- OUTSIDE RECORDS SUMMARY | 2024-05-21 20:15 | XMS_ITS | Encounter Summary ---
[place] [address] Care Team Providers Care Biztalk Architect Name Role Phone Kaylee Jaquez Primary Care Provider Encounter Details Date Type Department Care Team (Late st Contact Info) Description 07/24/2023 Telephone [place] [address] [place] Social History Tobacco Use Types [...] calls can be handled by: [facility] Electron Microprobe Operator documented in this encounter Plan of Treatment Not on file documented as of this encounter Visit Diagnoses Not on filedocumented in this encounter Care Teams Biztalk Architect Relationship Specialty Start Date End Date Kaylee Jaquez PA [address] [place] [address] PCP - General Family Medicine 01/18/22 documented as of this encounter
--- OUTSIDE RECORDS SUMMARY | 2024-05-21 20:15 | XMS_ITS | Encounter Summary ---
[place] [address] Care Team Providers Care Quantitative Equity Head Name Role Phone Kaylee Jaquez Primary Care Provider Reason for Referral * Diagnostic Test (Routine) - Closed Specialty Diagnoses / Procedures Referred By Contac t Referred To Contact Radiology Diagnoses Chest pain, unspecified type ASCVD (arteriosclerotic cardiovascular disease) Procedures NM Exercise Stress CT Component Lc Garcia MD [facility] [place] [address] [place] [address] Referral ID Status Reason Start Date Expiration Date V isits Requested Visits Authorized [id number] Closed Specialty Service Requested 05/30/2023 11/27/2024 1 1 Reason for Visit * Diagnostic Test (Routine) - Closed Specialty Diagnoses / Procedures Referred By Contac t Referred To Contact Radiology Diagnoses Chest pain, unspecified type ASCVD (arteriosclerotic cardiovascular disease) Procedures NM Exercise Stress CT Component Lc Garcia MD [facility] [place] [address] [place] [address] Referral ID Status Reason Start Date Expiration Date V isits Requested Visits Authorized [id number] Closed Specialty Service Requested 05/30/2023 11/27/2024 1 1 Encounter Details Date Type Department Care Team (Latest Contact Info) Description 06/12/2023 9:00 AM EST - 06/12/2023 11:59 PM EST Hospital Encounter [place] [address] Lc Garcia MD [facility] [place] [address] Chest pain, unspecified type; ASCVD [...] who have questions please contact the health senior care specialist that requested your imaging first. ? Electronically signed by: Neto Hinson MD, [facility] ([phone]), at 06/12/2023 2:58 PM Narrative 06/12/2023 2:58 PM EST EXAMINATION: NM PHARMACOLOGIC STRESS AND REST MYOCARDIAL PERFUSION CLINICAL HISTORY: Chest pain/anginal equiv, 10yr CHD risk > 20%, EST candidate R07.9, Chest pain, unspecified - I25.10, Atherosclerotic heart disease of [place] coronary artery without angina pectoris TECHNIQUE: During [...] patients who have questions please contactthe health senior care specialist that requested your imaging first. Electronically signed by: Neto Hinson MD, [facility]([phone]), at 06/12/2023 2:58 PM Lc Garcia MD [place] ORDERABLES documented in this encounter Visit Diagnoses Diagnosis Chest pain, unspecified type ASCVD (arteriosclerotic cardiovascular disease) Unspecified cardiovascular disease documented in this encounter Care Teams Quantitative Equity Head Relationship Specialty Start Date End Date Kaylee Jaquez PA [address] [place] [address] PCP - General Family Medicine 01/18/22 documented as of this encounter
--- OUTSIDE RECORDS SUMMARY | 2024-05-21 20:15 | XMS_ITS | Encounter Summary ---
Author Organization [facility] Address [facility] [place] [address] Care Team Providers Care Junior Assistant Manager Name Role Phone Kaylee Jaquez Primary Care Provider [phone] Reason for Visit * Reason Onset Date Comments Medication Refill 12/16/2022 Encounter Details Date Type Department Care Team (Late st Contact Info) Description 12/16/2022 Refill [place] [address] Nimesh Alicia MD [facility] [place] [address] Social History Tobacco Use Types Packs/Day Years [...] EDT Waiting for response from pt via [facility] to confirm dosing; once daily or twice daily. Pt responds and confirms that she is taking once daily Dexilant. documented in this encounter Plan of Treatment Not on file documented as of this encounter Visit Diagnoses Not on filedocumented in this encounter Care Teams Junior Assistant Manager Relationship Specialty Start Date End Date Kaylee Jaquez PA [address] [place] [address] PCP - General Family Medicine 01/18/22 documented as of this encounter
--- OUTSIDE RECORDS SUMMARY | 2024-05-21 20:15 | XMS_ITS | Encounter Summary ---
Author Organization [facility] [place] [address] Care Team Providers Care Manager Transfer Name Role Phone Kaylee Jaquez Primary Care Provider [phone] Reason for Visit * Reason Onset Date Comments Medication Refill 09/10/2022 Encounter Details Date Type Department Care Team (Late st Contact Info) Description 09/10/2022 Refill Cardiology at [address] [address] Lc Garcia MD [facility] [place] [address] Medication Refill Social History Tobacco Use Types [...] unspecified documented in this encounter Care Teams Manager Transfer Relationship Specialty Start Date End Date Kaylee Jaquez PA [address] [place] [address] PCP - General Family Medicine 01/18/22 documented as of this encounter
--- OUTSIDE RECORDS SUMMARY | 2024-05-21 20:15 | XMS_ITS | Encounter Summary ---
[place] [address] Care Team Providers Care Computer Systems Technician Name Role Phone Kaylee Jaquez Primary Care Provider Encounter Details Date Type Department Care Team ([facility] st Contact Info) Description 07/21/2023 12:00 PM EDT Ancillary Procedure XRay at [address] [address] Elvin Whiting MD [address] [place] [address] [place] [address] Pain in right hip Social History Tobacco [...] who have questions please contact the health healthcare technician that requested your imaging first. ? [...] patients who have questions please contactthe health healthcare technician that requested your imaging first. Elvin Whiting MD IMG DX ORDERABLES documented in this encounter Visit Diagnoses Diagnosis Pain in right hip Pain in joint, pelvic region and thigh documented in this encounter Care Teams Computer Systems Technician Relationship Specialty Start Date End Date Kaylee Jaquez PA [address] [place] [address] PCP - General Family Medicine 01/18/22 documented as of this encounter
--- OUTSIDE RECORDS SUMMARY | 2024-05-21 20:15 | XMS_ITS | Encounter Summary ---
[place] [address] Care Team Providers Care Ceo & Board Director Name Role Phone Kaylee Jaquez Primary Care Provider Reason for Referral * Diagnostic Test (Routine) - Closed Specialty Diagnoses / Procedures Referred By Contac t Referred To Contact Radiology Diagnoses Chest pain, unspecified type ASCVD (arteriosclerotic cardiovascular disease) Procedures NM Exercise Stress and Rest Myocardial Perfusion Lc Garcia MD [facility] [place] [address] [place] [address] Referral ID Status Reason Start Date Expiration Date V isits Requested Visits Authorized [id number] Closed Specialty Service Requested 05/30/2023 11/28/2024 1 1 Reason for Visit * Diagnostic Test (Routine) - Closed Specialty Diagnoses / Procedures Referred By Contac t Referred To Contact Radiology Diagnoses Chest pain, unspecified type ASCVD (arteriosclerotic cardiovascular disease) Procedures NM Exercise Stress and Rest Myocardial Perfusion Lc Garcia MD [facility] [place] [address] [place] [address] Referral ID Status Reason Start Date Expiration Date V isits Requested Visits Authorized [id number] Closed Specialty Service Requested 05/30/2023 11/28/2024 1 1 Encounter Details Date Type Department Care Team (Latest Contact Info) Description 06/12/2023 8:59 AM EST Hospital Encounter Nuclear Medicine at [facility] [place] [address] Lc Garcia MD [facility] [address] Chest pain, unspecified type; ASCVD (arteriosclerotic cardiovascular [...] have questions please contact the health healthcare administration intern that requested your imaging first. ? Narrative 06/12/2023 2:58 PM EST EXAMINATION: NM PHARMACOLOGIC STRESS AND REST MYOCARDIAL PERFUSION CLINICAL HISTORY: Chest pain/anginal equiv, 10yr CHD risk > 20%, EST candidate R07.9, Chest pain, unspecified - I25.10, Atherosclerotic heart disease of [place] coronary artery without angina pectoris TECHNIQUE: During [...] who have questions please contactthe health healthcare administration intern that requested your imaging first. Lc Garcia MD [facility] [place] ORDERABLES documented in [...] Arm documented in this encounter Care Teams Ceo & Board Director Relationship Specialty Start Date End Date Kaylee Jaquez PA [address] [place] [address] PCP - General Family Medicine 01/18/22 documented as of this encounter
--- OUTSIDE RECORDS SUMMARY | 2024-05-21 20:15 | XMS_ITS | Encounter Summary ---
[place] [address] Care Team Providers Care Boat Driver Name Role Phone Kaylee Jaquez Primary Care Provider Encounter Details Date Type Department Care Team (Late st Contact Info) Description 02/03/2023 Telephone [place] [phone] Fariba Palacio Social History Tobacco Use Types [...] Kayli Rader APRN from 02/14/23. Please call [phone]. SLB approved of a TOV documented in this encounter Plan of Treatment Not on file documented as of this encounter Visit Diagnoses Not on filedocumented in this encounter Care Teams Boat Driver Relationship Specialty Start Date End Date Kaylee Jaquez PA [address] [place] [address] PCP - General Family Medicine 01/18/22 documented as of this encounter
--- OUTSIDE RECORDS SUMMARY | 2024-05-21 20:15 | XMS_ITS | Encounter Summary ---
Author Organization [facility] [place] [address] Care Team Providers Care Aging Room Hand Name Role Phone Kaylee Jaquez Primary Care Provider [phone] Encounter Details Date Type Department Care Team (Latest Contact Info) Description 01/03/2023 10:00 AM EDT Office Visit [place] [address] Kayli Rader LINE PREP [facility] [place] [address] Left lumbar radiculopathy Social History Tobacco Use Types Packs/Day Years Used Date Smoking Tobacco: Every Day Cigarettes 0.5 45 Smokeless Tobacco: Never Comments:Quit but family mem radah and she started smoking again 08/01/21 Alcohol [...] arrive 1030am for an 11am injection withDr. Dey []Medial Branch Blocks with Radiofrequency Ablation (RFA) [...] team at . Please call the office [phone] and ask to speak with a nurse if any of the following occurs within 14 days prior to your injection/procedure: [x]You have begun taking steroids or antibiotics [x]You have had any changes in your health status or medications [x]You have started taking a blood thinner documented in this encounter Progress Notes * Kayli Rader APRN - 01/03/2023 10:00 AM EDT [facility] Medical Decision Making: [...] or Sacral Epidural Steroid Inj Sacral (Caudal) (05367) Plan Left L4-5 MARINE Follow-up with me [...] experience with Higinio Mcdaniel PT in the [facility] area who predominantly performs manual [...] Last 1 Encounters: 12/09/22 36.44 kg/m?? Pain 6-8/10 General: Pleasant, cooperative, Mood and affect are [...] Waterman Referring Provider: Kaylee Rader APRN 01/03/2023 [facility] documented in this encounter Plan of Treatment Not on file documented as of this encounter Visit Diagnoses Diagnosis Left lumbar radiculopathy Thoracic or lumbosacral neuritis or radiculitis, unspecified documented in this encounter Care Teams Aging Room Hand Relationship Specialty Start Date End Date Kaylee Jaquez PA [address] [place] [address] PCP - General Family Medicine 01/18/22 documented as of this encounter
--- OUTSIDE RECORDS SUMMARY | 2024-05-21 20:15 | XMS_ITS | Encounter Summary ---
[place] [address] Care Team Providers Care Bar Tender Name Role Phone Kaylee Jaquez Primary Care Provider Encounter Details Date Type Department Care Team (Late st Contact Info) Description 06/02/2023 Telephone [place] [address] Jennifer Barber Social History Tobacco Use Types [...] on filedocumented in this encounter Care Teams Bar Tender Relationship Specialty Start Date End Date Kaylee Jaquez PA [address] [place] [address] PCP - General Family Medicine 01/18/22 documented as of this encounter
--- OUTSIDE RECORDS SUMMARY | 2024-05-21 20:15 | XMS_ITS | Encounter Summary ---
[place] [address] Care Team Providers Care Chrome Worker Name Role Phone Kaylee Jaquez Primary Care Provider [phone] Encounter Details Date Type Department Care Team (Late st Contact Info) Description 11/22/2022 Telephone [place] [address] Fariba Palacio Social History Tobacco Use Types [...] LVM on 11/22/22 in regards to a [facility] message left by patient stating she is having back pain with leg pain that is getting worse. Patient was requesting a follow up with Dr. Cadena. I asked to call [phone]. documented in this encounter Plan of Treatment Not on file documented as of this encounter Visit Diagnoses Not on filedocumented in this encounter Care Teams Chrome Worker Relationship Specialty Start Date End Date Kaylee Jaquez PA [address] [address] PCP - General Family Medicine 01/18/22 documented as of this encounter
--- OUTSIDE RECORDS SUMMARY | 2024-05-21 20:15 | XMS_ITS | Encounter Summary ---
[place] [address] Care Team Providers Care Transfer And Pumphouse Operator Chief Name Role Phone Kaylee Jaquez Primary Care Provider Encounter Details Date Type Department Care Team (Late st Contact Info) Description 06/09/2023 [place]phone [place] [address] Jennifer Barber Social History Tobacco Use Types [...] on filedocumented in this encounter Care Teams Transfer And Pumphouse Operator Chief Relationship Specialty Start Date End Date Kaylee Jaquez PA [address] [place] [address] PCP - General Family Medicine 01/18/22 documented as of this encounter
--- OUTSIDE RECORDS SUMMARY | 2024-05-21 20:15 | XMS_ITS | Encounter Summary ---
Author Organization [facility] Address [facility] [place] [address] Care Team Providers Care Customer Service Technician Name Role Phone Kaylee Jaquez Primary Care Provider [phone] Reason for Visit * Reason Onset Date Comments Medication Refill 03/11/2023 Encounter Details Date Type Department Care Team (Late st Contact Info) Description 03/11/2023 [place] [address] Nimesh Alicia MD [facility] [place] [address] Social History Tobacco Use Types Packs/Day Years [...] on filedocumented in this encounter Care Teams Customer Service Technician Relationship Specialty Start Date End Date Kaylee Jaquez PA [address] [facility] [address], [place] [address] PCP - General Family Medicine 01/18/22 documented as of this encounter
--- OUTSIDE RECORDS SUMMARY | 2024-05-21 20:15 | XMS_ITS | Encounter Summary ---
[place] [address] Care Team Providers Care Coat Baster Name Role Phone Kaylee Jaquez Primary Care Provider Encounter Details Date Type Department Care Team (Late st Contact Info) Description 07/02/2023 Orders Only Orthopaedics at [place] [address] [place] [address] Elvin Whiting MD [address] [facility] [place] [address] Pain in right hip Social History Tobacco [...] who have questions please contact the health field care advocate that requested your imaging first. ? Electronically signed by: Tony Xiong MD, [facility] ([phone]), at 07/21/2023 12:52 PM Narrative 07/21/2023 12:52 PM EDT EXAMINATION: XR [...] patients who have questions please contactthe health field care advocate that requested your imaging first. Elvin Whiting MD IMG DX ORDERABLES documented in this encounter Visit Diagnoses Diagnosis Pain in right hip Pain in joint, pelvic region and thigh Pain in right hip Pain in joint, pelvic region and thigh documented in this encounter Care Teams Coat Baster Relationship Specialty Start Date End Date Kaylee Jaquez PA [address] [place] [address] PCP - General Family Medicine 01/18/22 documented as of this encounter
--- OUTSIDE RECORDS SUMMARY | 2024-05-21 20:15 | XMS_ITS | Encounter Summary ---
Author [facility] [place] [address] Care Team Providers Care Fire Sprinkler Fitter Name Role Phone Kaylee Jaquez Primary [...] or Sacral Epidural Steroid Inj Sacral (Caudal) ([address]) Alvarez Monteiro MD [facility] [place] [address] [facility] Referral ID Status Reason Start Date Expiration Date Visits Re quested Visits Authorized [id number] 1 1 Encounter Details Date Type Department Care Team (Late st Contact Info) Description 01/23/2023 11:00 AM EDT Ancillary [place] [address] Alvarez Monteiro MD [facility] [place] [address] Social History Tobacco Use Types Packs/Day Years [...] Clinic [facility] (01/23/2023 1:06 PM EDT) Narrative [facility] - 01/23/2023 1:06 PM EDT See PACS for result report. Alvarez Monteiro MD G FILM LIBRARY ORD ERABLES Performing Organization Address City/State/[facility] Co de Phone Number [place], [place] documented in this encounter Visit Diagnoses Not on filedocumented in this encounter Care Teams Fire Sprinkler Fitter Relationship Specialty Start Date End Date Kaylee Jaquez PA [address] [place] [address] PCP - General Family Medicine 01/18/22 documented as of this encounter
--- OUTSIDE RECORDS SUMMARY | 2024-05-21 20:15 | XMS_ITS | Encounter Summary ---
Author Organization [facility] Address [facility] [place] [address] Care Team Providers Care Application Processor Name Role Phone Kaylee Jaquez Primary Care Provider Reason for Visit * Reason Onset Date Comments Medication Refill 09/23/2022 Encounter Details Date Type Department Care Team (Late st Contact Info) Description 09/23/2022 Refill [place] [address] Nimesh Alicia MD [facility] [place] [address] Gastroparesis Social History Tobacco Use Types Packs/Day [...] Gastroparesis documented in this encounter Care Teams Application Processor Relationship Specialty Start Date End Date Kaylee Jaquez PA [address] [facility], [place] [address] PCP - General Family Medicine 01/18/22 documented as of this encounter
--- OUTSIDE RECORDS SUMMARY | 2024-05-21 20:15 | XMS_ITS | Encounter Summary ---
[place] [address] Care Team Providers Care Packager And Strapper Name Role Phone Kaylee Jaquez Primary Care [...] on filedocumented in this encounter Care Teams Packager And Strapper Relationship Specialty Start Date End Date Kaylee Jaquez PA [address] [place] [address] PCP - General Family Medicine 01/18/22 documented as of this encounter
--- OUTSIDE RECORDS SUMMARY | 2024-05-21 20:15 | XMS_ITS | Encounter Summary ---
Author Organization [facility] [place] [address] Care Team Providers Care Regional Project Manager Name Role Phone Kaylee Jaquez Primary Care Provider Reason for Visit * Diagnostic Test (Routine) - Closed Specialty Diagnoses / Procedures Referred By Jasson mendoza Referred To Contact Radiology Diagnoses Chest pain, unspecified type ASCVD (arteriosclerotic cardiovascular disease) Procedures NM Exercise Stress and Rest Myocardial Perfusion Lc Garcia MD [facility] [place] [address] [place] [address] Referral ID Status Reason Start Date Expiration Date V isits Requested Visits Authorized [id number] Closed Specialty Service Requested 05/30/2023 11/28/2024 1 1 Encounter Details Date Type Department Care Team (Latest Contact Info) Description 06/12/2023 8:59 AM EST Hospital Encounter [place] [address] Lc Garcia MD [facility] [place] [address] Discharge Disposition: Home Social History [...] who have questions please contact the health ambulatory care that requested your imaging first. ? Electronically signed by: Neto Hinson MD, [facility] ([phone]), at 06/12/2023 2:58 PM Narrative 06/12/2023 2:58 PM EST EXAMINATION: NM PHARMACOLOGIC STRESS AND REST MYOCARDIAL PERFUSION CLINICAL HISTORY: Chest pain/anginal equiv, 10yr CHD risk > 20%, EST candidate R07.9, Chest pain, unspecified - I25.10, Atherosclerotic heart disease of [place] coronary artery without angina pectoris TECHNIQUE: During [...] patients who have questions please contactthe health ambulatory care that requested your imaging first. Electronically signed by: Neto Hinson MD, [facility]([phone]), at 06/12/2023 2:58 PM Lc Garcia MD IMG [place] ORDERABLES * [...] who have questions please contact the health ambulatory care that requested your imaging first. ? Electronically signed by: Neto Hinson MD, [facility] ([phone]), at 06/12/2023 2:58 PM Narrative 06/12/2023 2:58 PM EST EXAMINATION: NM PHARMACOLOGIC STRESS AND REST MYOCARDIAL PERFUSION CLINICAL HISTORY: Chest pain/anginal equiv, 10yr CHD risk > 20%, EST candidate R07.9, Chest pain, unspecified - I25.10, Atherosclerotic heart disease of [place] coronary artery without angina pectoris TECHNIQUE: During [...] patients who have questions please contactthe health ambulatory care that requested your imaging first. Electronically signed by: Neto Hinson MD, [facility]([phone]), at 06/12/2023 2:58 PM Lc Garcia MD [facility] ORDERABLES documented in this encounter Visit Diagnoses Not on filedocumented in this encounter Care Teams Regional Project Manager Relationship Specialty Start Date End Date Kaylee Jaquez PA [address] [place] [address] PCP - General Family Medicine 01/18/22 documented as of this encounter
--- OUTSIDE RECORDS SUMMARY | 2024-05-21 20:15 | XMS_ITS | Encounter Summary ---
[place] [address] Care Team Providers Care Information Technology Professor Name Role Phone Kaylee Jaquez Primary Care Provider Reason for Visit * Reason Comments Prior Authorization Repatha Pushtronex S ystem 420 SOCT Encounter Details Date Type Department Care Team (Late st Contact Info) Description 09/09/2022 Specialty [place] [address] Paula Marcelo CPHT Social History Tobacco Use [...] Address: [address] [place] [address] (home) Medication Name: REPATHA PUSHTRONEX 420 MG/3.5 ML SUBCUTANEOUS WEARABLE INJECTOR Medication ID: [id number] Patient Location: [facility] 4A Patient Location Comment: Medication Strength Frequency Requested: Repatha Pushtronex System 420 SOCT: 3.5 mLs by subcutaneous (via wearable injector) route every 30 days Qty/Day Supply: 09/08 New Start: New to Pharmacy Diagnosis & ICD-10 Code: ASCVD, I25.10 Subscriber Insurance: [employer] Subscriber Insurance Comment: Fax: Physician: ARIK BARON Physician Comment : PA Status: JUAN PABLO Not Needed Insurance mandated Pharmacy: [facility] Fill[facility]: Yes Insurance requirements/notes: None Copay: Unknown Copay assistance: None Copay assistance comment: Pharmacy staff will be reaching out to the patient to inform them of their medication's [facility]. If applicable, a pharmacist will speak with the patient to offer our specialty pharmacy services and to arrange delivery of their medication. Paula Marcelo 09/09/22 2:50 PM documented in this encounter Plan of Treatment Not on file documented as of this encounter Visit Diagnoses Not on filedocumented in this encounter Care Teams Information Technology Professor Relationship Specialty Start Date End Date Kaylee Jaquez PA [address] [place] [address] PCP - General Family Medicine 01/18/22 documented as of this encounter
--- OUTSIDE RECORDS SUMMARY | 2024-05-21 20:15 | XMS_ITS | Encounter Summary ---
[place] [address] Care Team Providers Care Steam And Power Superintendent Name Role Phone Kaylee Jaquez Primary Care Provider Encounter Details Date Type Department Care Team (Late st Contact Info) Description 01/22/2023 Telephone [place] [address] Charlee Porter RN Social History Tobacco Use [...] on filedocumented in this encounter Care Teams Steam And Power Superintendent Relationship Specialty Start Date End Date Kaylee Jaquez PA [address] [place] [address] PCP - General Family Medicine 01/18/22 documented as of this encounter
--- OUTSIDE RECORDS SUMMARY | 2024-05-21 20:15 | XMS_ITS | Encounter Summary ---
[place] [address] Care Team Providers Care Manager Cosmetics Name Role Phone Kaylee Jaquez Primary Care [...] filedocumented in this encounter Care Teams Manager Cosmetics Relationship Specialty Start Date End Date Kaylee Jaquez PA [address] [place] [address] PCP - General Family Medicine 01/18/22 documented as of this encounter
--- OUTSIDE RECORDS SUMMARY | 2024-05-21 20:15 | XMS_ITS | Encounter Summary ---
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 - barretts Kaylee Jaquez PA [address] [place] [address] [facility] Endoscopy [address] [place] [address] Referral ID Status Reason Start Date Expiration Date V isits Requested Visits Authorized [id number] Closed Consult, Test & Treat PCP Updated and/or Approved 05/22/2023 05/21/2024 6 6 Encounter Details Date Type Department Care Team (Latest Contact Info) Description 05/22/2023 Transcribe Orders eDH Incoming Referrals [phone] Kaylee Jaquez PA [address] [place], [place] [id number] 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
--- OUTSIDE RECORDS SUMMARY | 2024-05-21 20:15 | XMS_ITS | Encounter Summary ---
[facility] Organization [facility] [place] [address] Care Team Providers Care Manager Search Engine Name Role Phone Kaylee Jaquez Primary Care Provider Reason for Visit * Reason Onset Date Comments Medication Refill 04/30/2023 Encounter Details Date Type Department Care Team (Late st Contact Info) Description 04/30/2023 [place] [address] Marta Rivera MD [facility] [place] [address] Social History Tobacco Use Types Packs/Day Years [...] filedocumented in this encounter Care Teams Manager Search Engine Relationship Specialty Start Date End Date Kaylee Jaquez PA [address] [place] [address] PCP - General Family Medicine 01/18/22 documented as of this encounter
--- OUTSIDE RECORDS SUMMARY | 2024-05-21 20:15 | XMS_ITS | Encounter Summary ---
[place] [address] Care Team Providers Care Coffee Sampler Name Role Phone Kaylee Jaquez Primary Care Provider Encounter Details Date Type Department Care Team (Late st Contact Info) Description 11/22/2022 Telephone [place] [phone] Shahida Richard LPN Social History Tobacco Use [...] on filedocumented in this encounter Care Teams Coffee Sampler Relationship Specialty Start Date End Date Kaylee Jaquez PA [address] [place] [address] PCP - General Family Medicine 01/18/22 documented as of this encounter
--- OUTSIDE RECORDS SUMMARY | 2024-05-21 20:15 | XMS_ITS | Encounter Summary ---
[place] [address] Care Team Providers Care Export Coordinator Name Role Phone Kaylee Jaquez Primary Care Provider Encounter Details Date Type Department Care Team (Late st Contact Info) Description 07/02/2023 Telephone [place] [address] Jennifer Barber Social History Tobacco Use Types [...] on filedocumented in this encounter Care Teams Export Coordinator Relationship Specialty Start Date End Date Kaylee Jaquez PA [address] [place] [address] PCP - General Family Medicine 01/18/22 documented as of this encounter
--- OUTSIDE RECORDS SUMMARY | 2024-05-21 20:15 | XMS_ITS | Encounter Summary ---
Author Organization [facility] [place] [address] Care Team Providers Care Psychiatric Clinician Name Role Phone Kaylee Jaquez Primary Care Provider Reason for Visit * Reason Onset Date Comments Medication Refill 11/22/2022 Encounter Details Date Type Department Care Team (Late st Contact Info) Description 11/22/2022 Refill Cardiology at [address] [address] Lc Garcia MD [facility] [place] [address] Medication Refill Social History Tobacco Use Types [...] type documented in this encounter Care Teams Psychiatric Clinician Relationship Specialty Start Date End Date Kaylee Jaquez PA [address] [place] [place] [phone] PCP - General Family Medicine 01/18/22 documented as of this encounter
--- OUTSIDE RECORDS SUMMARY | 2024-05-21 20:15 | XMS_ITS | Encounter Summary ---
Author Organization [facility] [place] [address] Care Team Providers Care Molded Goods Spot Picker Name Role Phone Kaylee Jaquez Primary Care Provider Reason for Visit * Reason Comments Medication Refill Encounter Details Date Type Department Care Team (Late st Contact Info) Description 04/30/2023 [place] [address] Marta Rivera MD [facility] [place] [address] Social History Tobacco Use Types Packs/Day Years [...] on filedocumented in this encounter Care Teams Molded Goods Spot Picker Relationship Specialty Start Date End Date Kaylee Jaquez PA [address] [place], [place] [address] PCP - General Family Medicine 01/18/22 documented as of this encounter
--- OUTSIDE RECORDS SUMMARY | 2024-05-21 20:15 | XMS_ITS | Encounter Summary ---
Author Organization [facility] Address [facility] [place] [address] Care Team Providers Care Obstetrics Technician Name Role Phone Kaylee Jaquez Primary Care Provider Reason for Visit * Reason Comments Right Hip Pain * Consultation (Routine) - Authorized Specialty Diagnoses / Procedures Referred By Jasson mendoza Referred To Contact Orthopaedics Diagnoses Pain of right hip PT ALREADY HAS APPT SCHED , ATTACHED REFERRAL TO APPT Kaylee Jaquez PA [address] [place] [address] Elvin Whiting MD [address] [place] [address] Referral ID Status Reason Start Date Expiration Date Visits Requested Visits Authorized [id number] Authorized Consult, Test & Treat PCP Updated and/or Approved 06/26/2023 06/25/2024 6 6 Encounter Details Date Type Department Care Team (Late st Contact Info) Description 07/21/2023 12:30 PM EDT Office Visit Orthopaedics at [address] [address] Elvin Whiting MD [address] [place] [address] Pain in right hip Social History Tobacco [...] latex or nickel History of heart attack 2020 :NSTEMI 2021 cardiac history Occupation: Not employed Patient Active Problem List Diagnosis Code Type 2 diabetes mellitus E11.9 HLD (hyperlipidemia) E78.5 Gastroesophageal reflux disease with hiatal hernia K21.9, K44.9 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 Weight as of [...] and rotation IMAGING: X-Rays taken today at [facility] were reviewed with the patient and shows: [...] from quite the distance traveling from near [place] and [place] and we will have to make sure [...] thigh documented in this encounter Care Teams Obstetrics Technician Relationship Specialty Start Date End Date Kaylee Jaquez PA [address] [place] [address] PCP - General Family Medicine 01/18/22 documented as of this encounter
--- OUTSIDE RECORDS SUMMARY | 2024-05-21 20:15 | XMS_ITS | Encounter Summary ---
Author Organization [facility] [place] [address] Care Team Providers Care Tortilla Maker Name Role Phone Kaylee Jaquez Primary Care Provider Reason for Visit * Diagnostic Test (Routine) - Closed Specialty Diagnoses / Procedures Referred By Jsason mendoza Referred To Contact Radiology Diagnoses Chest pain, unspecified type ASCVD (arteriosclerotic cardiovascular disease) Procedures NM Exercise Stress and Rest Myocardial Perfusion Lc Garcia MD [facility] [place] [address] [place] [address] Referral ID Status Reason Start Date Expiration Date V isits Requested Visits Authorized [id number] Closed Specialty Service Requested 05/30/2023 11/28/2024 1 1 Encounter Details Date Type Department Care Team (Latest Contact Info) Description 06/12/2023 8:59 AM EST Hospital Encounter [place] [address] Lc Garcia MD [facility] [place] [place] [address] Discharge Disposition: Home Social History [...] 0.4 mg, Intravenous, ONCE, 1 dose, On Fri06/12/23 at 1130, Radiology Contrast, Routine Given 06/12/2023 11:30 AM EST 0.4 mg Righ t Arm technetium (Tc-99m) sestamibi injection 0-30 mCi 0-30 mCi, Intravenous, 2 TIMES DAILY PRN, 2 doses, Starting on Fri06/12/23 at 0936, Until Ayde 06/12/23 at 1100, Per Protocol, Radiology Contrast, Routine Given 06/12/2023 11:00 AM EST 26.1 mCi Right Arm Given 06/12/2023 9:35 AM EST 7.8 mCi Ri ght Arm documented in this encounter Care Teams Tortilla Maker Relationship Specialty Start Date End Date Kaylee Jaquez PA [address] [place] [address] PCP - General Family Medicine 01/18/22 documented as of this encounter
--- OUTSIDE RECORDS SUMMARY | 2024-05-21 20:15 | XMS_ITS | Encounter Summary ---
[place] [address] Care Team Providers Care Pipe Line Repairer Name Role Phone Kaylee Jaquez Primary Care [...] on filedocumented in this encounter Care Teams Pipe Line Repairer Relationship Specialty Start Date End Date Kaylee Jaquez PA [address] [place] [address] PCP - General Family Medicine 01/18/22 documented as of this encounter
--- OUTSIDE RECORDS SUMMARY | 2024-05-21 20:15 | XMS_ITS | Encounter Summary ---
[place] [address] Care Team Providers Care Supervisor Veneer Name Role Phone Kaylee Jaquez Primary Care Provider Reason for Visit * Reason Comments Follow-up Left sided foot and buttock pain * Consultation (Routine) - Closed Specialty Diagnoses / Procedures Referred By Contac t Referred To Contact [facility] and Sp[facility] Center Diagnoses Other specified dorsopathies, site unspecified Kaylee Jaquez PA [address] [place] [address] Maxime Cadena MD [facility] [place] [address] Referral ID Status Reason Start Date Expiration Date V isits Requested Visits Authorized [id number] Closed Consult, Test & Treat PCP Updated and/or Approved 11/22/2022 11/22/2023 1 1 Encounter Details Date Type Department Care Team (Latest Contact Info) Description 12/09/2022 9:15 AM EDT Office Visit [facility] [place] [phone] Kayli Rader APRN [facility] [place] [address] Left lumbar radiculopathy Social History Tobacco Use [...] this encounter Progress Notes * Kayli Rader Pauline, INSERT CUTTER - 12/09/2022 9:15 AM EDT [facility] Medical Decision Making: [...] she spent quite some time vacuuming her [id number]-pv-pxm's rug and on occasion, the vacuum would [...] experience with Higinio Mcdaniel PT in the [facility] area who predominantly performs manual physical [...] ref. provider found Kayli Rader APRN 12/09/2022 [facility] documented in this encounter Plan of Treatment Not on file documented as of this encounter Visit Diagnoses Diagnosis Left lumbar radiculopathy Thoracic or lumbosacral neuritis or radiculitis, unspecified documented in this encounter Care Teams Supervisor Veneer Relationship Specialty Start Date End Date Kaylee Jaquez PA [address] [place] [address] PCP - General Family Medicine 01/18/22 documented as of this encounter
--- OUTSIDE RECORDS SUMMARY | 2024-05-21 20:15 | XMS_ITS | Encounter Summary ---
Author Organization [facility] [place] [address] Care Team Providers Care Sample Grinder Name Role Phone Kaylee Jaquez Primary Care [...] or Sacral Epidural Steroid Inj Sacral (Caudal) (45728) Alvarez Monteiro MD [facility] [place] [address] [facility] Referral ID Status Reason Start Date Expiration Date Visits Re quested Visits Authorized [id number] 1 1 Encounter Details Date Type Department Care Team (Late st Contact Info) Description 01/23/2023 11:00 AM EDT - 01/23/2023 11:30 AM EDT [place] [address] Alvarez Monteiro MD [facility] [place] [address] INJECTION, EPIDURAL, LUMBAR OR SACRAL (CAUDAL), WITH IMAGING GUIDANCE (VU 1.8) Social History Tobacco Use Types Packs/Day [...] on file) Attending Physician: Alvarez Monteiro MD [facility] PREPROCEDURE HISTORY AND [...] Attending Physician [facility] [place] [address] / documented in this encounter Miscellaneous Notes * Op Note - Alvarez Monteiro MD - 01/23/2023 11:25 AM EDT Pain Management Operative Note Patient Name: Danielle Mills : [id number] MR#: [id number] Case Date: 01/23/2023 Surgeon: Surgeon(s) and Role: [...] procedure. Alvarez Monteiro MD [facility] Newspaper Illustrator of Anesthesiology [facility] [employer] [facility] [address] [address] / [facility] CC: Unknown None documented in this encounter Plan of Treatment Not on file documented as of this encounter Procedures Procedure Name Priority Date/Time Associated Diagnosis Comments Injection Dx/Ther Sbst Intrlmnr Lmbr/Sac W/Img Gdn (05201) 01/23/2023 11:22 AM EDT Left lumbar radiculopathy Injection Dx/Ther Sbst Intrlmnr Lmbr/Sac W/Img Gdn (96623) 01/23/2023 11:22 AM EDT Left lumbar radiculopathy [...] Provid er: Arvind Gordon MD - Comment: EDDI) iohexoL (Omnipaque) (240 mg/mL) solution (CANCELED) PRN, Starting on Ayde 01/23/23 at 1137, Until Ayde 01/23/23 at 1338, Intra-Operative (Intra-Procedure), Routine 1137 (Given - Provid er: Arvind Gordon MD - Comment: EDDI) lidocaine (pf) (Xylocaine) (10 mg/mL) 1% injection (CANCELED) PRN, Starting on Ayde 01/23/23 at 1136, Until Ayde 01/23/23 at 1338, Intra-Operative (Intra-Procedure), Routine 1136 (Given - Provid er: Arvind Gordon MD - Comment: LESI) documented in this encounter Care Teams Sample Grinder Relationship Specialty Start Date End Date Kaylee Jaquez PA [address] [place] [address] PCP - General Family Medicine 01/18/22 documented as of this encounter
--- OUTSIDE RECORDS SUMMARY | 2024-05-21 20:15 | XMS_ITS | Encounter Summary ---
Author Organization [facility] [place] [address] Care Team Providers Care Molder Sweep Name Role Phone Kaylee Jaquez Primary Care Provider Reason for Referral * Diagnostic Test (Routine) - Closed Specialty Diagnoses / Procedures Referred By Contmacie t Referred To Contact Gastroenterology Diagnoses Constipation, unspecified constipation type ARM for constipation Procedures High Definition Anal Manometry Nimesh Alicia MD [facility] [place] [address] [facility] [place] [address] [place] [address] Referral ID Status Reason Start Date Expiration Date V isits Requested Visits Authorized [id number] Closed Consult, Test & Treat 07/14/2023 07/13/2024 1 1 Encounter Details Date Type Department Care Team (Late st Contact Info) Description 07/14/2023 Orders [place] [address] Nimesh Alicia MD [facility] [place] [place] [address] Constipation, unspecified constipation type Social History Tobacco [...] type documented in this encounter Care Teams Molder Sweep Relationship Specialty Start Date End Date Kaylee Jaquez PA [address] [place] [address] PCP - General Family Medicine 01/18/22 documented as of this encounter
--- OUTSIDE RECORDS SUMMARY | 2024-05-21 20:15 | XMS_ITS | Encounter Summary ---
[place] [address] Care Team Providers Care Lead Web Application Developer Name Role Phone Kaylee Jaquez Primary Care Provider [phone] Encounter Details Date Type Department Care Team (Late st Contact Info) Description 01/31/2023 Telephone [facility] [place] [address] Fariba Palacio Social History Tobacco Use Types [...] Kayli Rader APRN from 02/14/23. Please call [phone] documented in this encounter Plan of Treatment Not on file documented as of this encounter Visit Diagnoses Not on filedocumented in this encounter Care Teams Lead Web Application Developer Relationship Specialty Start Date End Date Kaylee Jaquez PA [address] [place] [address] PCP - General Family Medicine 01/18/22 documented as of this encounter
--- OUTSIDE RECORDS SUMMARY | 2024-05-21 20:15 | XMS_ITS | Encounter Summary ---
[place] [address] Care Team Providers Care Fagot Heater Helper Name Role Phone Kaylee Jaquez Primary [...] on filedocumented in this encounter Care Teams Fagot Heater Helper Relationship Specialty Start Date End Date Kaylee Jaquez PA [address] [place] [address] PCP - General Family Medicine 01/18/22 documented as of this encounter
--- OUTSIDE RECORDS SUMMARY | 2024-05-21 20:15 | XMS_ITS | Encounter Summary ---
Author Organization [facility] [place] [address] Care Team Providers Care Mechanical Service Technician Name Role Phone Kaylee Jaquez Primary Care Provider Reason for Referral * Consultation (Routine) - Closed Specialty Diagnoses / Procedures Referred By Contmacie t Referred To Contact [facility] Center Diagnoses Other specified dorsopathies, site unspecified Kaylee Jaquez PA [address] [place] [address] Maxime Cadena MD [facility] [place] [address] Referral ID Status Reason Start Date Expiration Date V isits Requested Visits Authorized [id number] Closed Consult, Test & Treat PCP Updated and/or Approved 11/22/2022 11/22/2023 1 1 Encounter Details Date Type Department Care Team (Latest Contact Info) Description 11/22/2022 Transcribe Orders eDH Incoming Referrals [phone] Kyalee Jaquez PA [address] [place], [place] [id number] Other specified dorsopathies, site unspecified Social History [...] unspecified documented in this encounter Care Teams Mechanical Service Technician Relationship Specialty Start Date End Date Kaylee Jaquez PA [address] [place] [address] PCP - General Family Medicine 01/18/22 documented as of this encounter
--- OUTSIDE RECORDS SUMMARY | 2024-05-21 20:15 | XMS_ITS | Encounter Summary ---
Author Organization [facility] [place] [address] Care Team Providers Care Laborer Road Name Role Phone Kaylee Jaquez Primary Care Provider Encounter Details Date Type Department Care Team (Latest Contact Info) Description 04/21/2023 9:49 PM EST - 04/21/2023 11:59 PM [facility] Hospital [place] [address] Discharge Disposition: Home Social History Tobacco Use [...] Surgical Pathology Report (04/21/2023 2:24 PM EST) Final Diagnosis [id number] ? Location: [facility] The signing pathologist has (i) examined the relevant preparation(s) for the specimen(s) and (ii) rendered or confirmed the diagnosis(es). . ?Surgical Pathology DIAGNOSIS Right foot toenail, clippings: - PAS staining positive for fungal hyphae present in nail plate ? (see discussion) Electronically signed by: ?Radha ABDUL, Steven Lindo Verified: ??04/24/2023 16:23 ??Dermatopathol ogist Performed at: ??-[facility] Dept. of Pathology, [place] [address] Explosives Truck Driver: Cleopatra Merrill MD, FCAP, ??CLIA Certificate: [id number] DISCUSSION The hyphae have a distorted apperance, which could reflect processing artifact or partial treatment. Staining also reveals background coccoid bacteria that appear distinct from the fungi. SPECIMEN(S) SUBMITTED A - toenail clipping right foot Referring Identifier: ??[id number] CLINICAL INFORMATION Thick discolored nails SPECIMEN PROCESSING A - Labeled/Fixativ e: Patient demographics, fresh. Quantity/Size: ??Two, 0.5 and 0.7 cm. Tissue Description: Chalky, yellow-wright nail clippings. Sections/Proces sing: Submitted in toto ??in 1 cassette labeled A1. ??sns 04/24/2023 4:23 PM EST [facility] NAIL SPECIMEN / Unknown 04/21/2023 2:24 PM EST 04/21/2023 2:24 PM EST Narrative Resulting Agency Comment Spec In Lab / WKS Juanita Khan VEGETABLE TESTER PATHOLOGY/CYTOLOGY O RDERABLES [facility] [place] [address] [facility] [place] [address] documented in this encounter Visit Diagnoses Not on filedocumented in this encounter Care Teams Laborer Road Relationship Specialty Start Date End Date Kaylee Jaquez PA [address] [place] [address] PCP - General Family Medicine 01/18/22 documented as of this encounter
--- OUTSIDE RECORDS SUMMARY | 2024-05-21 20:15 | XMS_ITS | Encounter Summary ---
Author [place] [address] Care Team Providers Care Hot Patcher Name Role Phone Kaylee Jaquez Primary Care Provider [phone] Encounter Details Date Type Department Care Team (Late st Contact Info) Description 01/22/2023 Telephone [place] [phone] Charlee Porter RN Social History Tobacco Use [...] on filedocumented in this encounter Care Teams Hot Patcher Relationship Specialty Start Date End Date Kaylee Jaquez PA [address] [place] [address] PCP - General Family Medicine 01/18/22 documented as of this encounter
--- OUTSIDE RECORDS SUMMARY | 2024-05-21 20:15 | XMS_ITS | Encounter Summary ---
[place] [address] Care Team Providers Care Correctional Substance Abuse Counselor Name Role Phone Kaylee Jaquez Primary Care [...] on filedocumented in this encounter Care Teams Correctional Substance Abuse Counselor Relationship Specialty Start Date End Date Kaylee Jaquez PA [address] [place] [address] PCP - General Family Medicine 01/18/22 documented as of this encounter
--- OUTSIDE RECORDS SUMMARY | 2024-05-21 20:16 | XMS_ITS | Encounter Summary ---
[place] [address] Care Team Providers Care Working Second Hand Name Role Phone Kaylee Jaquez Primary [...] on filedocumented in this encounter Care Teams Working Second Hand Relationship Specialty Start Date End Date Kaylee Jaquez PA [address] [place] [address] PCP - General Family Medicine 01/18/22 documented as of this encounter
--- OUTSIDE RECORDS SUMMARY | 2024-05-21 20:16 | XMS_ITS | Encounter Summary ---
Author Organization [facility] Address [facility] [place] [address] Care Team Providers Care Underground Electrician Name Role Phone Steven Jeffries MD Primary Care Provider Reason for Visit * Auth/Cert Specialty Diagnoses / Procedures Referred By Jasson mendoza Referred To Contact Diagnoses constipation Procedures PRO COLONOSCOPY, DIAGNOSTIC COLONOSCOPY, DIAGNOSTIC Referral ID Status Reason Start Date Expiration Date Visits Re quested Visits Authorized [id number] 1 1 Encounter Details Date Type Department Care Team (Late st Contact Info) Description 08/01/2021 10:00 AM EDT - 08/01/2021 10:45 AM EDT Surgery [place] [address] Nimesh Alicia MD [facility] [place] [address] COLONOSCOPY, POLYPECTOMY, REMOVAL LESION BY SNARE (WRVU [...] occurs, please contact your Doctor. Please call [phone] before 8pm Mon-Fri with problems, questions or concerns. If you call after 8pm or on weekends, call the Hospital at [phone] and ask to speak to the Resident Service Coordinator monitoring tech and the reserve operator will contact that person for you. When should you call for help? Call [phone] anytime you think you may need emergency [...] After Visit Summary and more online at [email or web address] If you would like to provide feedback about your hospital experience, please call the Office of Patient and Family Relations at . If you have received this After Visit Summary in error, please immediately return it in person to the department, or notify the -H Privacy Office by calling toll free at between the hours of 8AM and 5PM to arrange for our retrieval of the documents at no cost to you. Content Version: 12.2 ?? [phone] [employer]. Care instructions adapted under license by [facility]. If you have questions about a medical condition or this instruction, always ask your healthcare professional. [employer] disclaims any warranty or liability for your [...] 12/25/2020 08/09/2022 GIDEON ROOT, BULK, MISC by [facility].(Non-Drug; Combo Route) route. 01/29/2022 docusate sodium (Colace) [...] - 07/20/2021 8:23 AM EST Danielle Mills [id number] Diagnosis/Indication: constipation 1. Have you ever had [...] to patient: You must have a responsible libertarian who will drive you to your procedure, [...] ??? Carpal tunnel syndrome G56.00 ??? Cystocele [id number] ??? Depression, anxiety, insomnia, PTSD F32.A ??? [...] Operative Note Patient Name: Danielle Mills : [id number] MR#: [id number] Case Date: 08/01/2021 Surgeon: Surgeon(s) and Role: [...] Routine 08/01/2021 10:55 AM EDT Colonoscopy, Remv Lesmary, Snare ([id number]) 08/01/2021 10:30 AM EDT Constipation, unspecified constipation type COLONOSCOPY Routine 08/01/2021 9:51 AM EDT documented in this encounter Results * Specimen to Pathology (08/01/2021 11:02 AM EDT) AP Specimen 08/01/2021 11:0 2 AM EDT 08/01/2021 11:02 AM EDT [facility] LABORATORY - 08/01/2021 11:02 AM EDT Specimen requisition ordered. ??Separate Pathology report to follow Nimesh Alicia MD PATHOLOGY/CYTOLOGY O RDERABLES [facility] [place] [address] * Surgical Pathology Report (08/01/2021 10:55 AM EDT) Final Diagnosis [id number] ? Location: 4T; EA11; A The signing pathologist has (i) examined the relevant preparation(s) for the specimen(s) and (ii) rendered or confirmed the diagnosis(es). . ?Surgical Pathology DIAGNOSIS A - Rectum polyps x2, excision: - ??Hyperplastic polyp. - Mucosal prolapse polyp. - ??Multiple levels examined. Electronically signed by: ?Shane ABDUL PhD, Adela Verified: ??08/06/2021 14:08 ??Pathologist Performed at: ??-[facility] Dept. of Pathology, [place], [place] SPECIMEN(S) SUBMITTED A - Rectum polyps [...] ??Larger mucosal tissue, inked and trisected ??shb 08/06/2021 2:08 PM EDT [facility] GI Biopsy 08/01/2021 10:5 5 AM EDT 08/01/2021 10:55 AM EDT Nimesh Alicia MD PATHOLOGY/CYTOLOGY O RDERABLES Performing Organization Address [facility]/State/ZIP Co de Phone Number [facility] [place] [address] * COLONOSCOPY (08/01/2021 9:51 AM EDT) COLONOSCOPY [facility] Procedure Date: 08/01/2021 9:51 AM ? Patient Name: Danielle Mills ? N: [id number] ? Date of : 1960 ? Age: 61 ? Order #: [id number] ? Instrument Name: [id number] ? Procedure: ? Colonoscopy Indications: ? Constipation Providers: ? Nimesh Alicia, Deidre Vega, ? Carlos Jj MD: ?Steven Jeffries MD Medicines: ? Propofol [...] Procedure Code(s): ?? --- Professional --- ? 52892, Colonoscopy, flexible; with ? removal of tumor(s), polyp(s), or ? other lesion(s) by snare technique Diagnosis Code(s): ?? --- Professional --- ? K59.00, Constipation, unspecified ? K63.5, Polyp of colon ? --- Technical --- ? K59.00, Constipation, unspecified ? K63.5, Polyp of colon CPT copyright 2019 [employer]. All rights reserved. The codes documented in this report are preliminary and upon compressed gases tester review may be revised to meet current compliance requirements. Attending Participation: ? I personally performed the entire procedure. ? Nimesh Alicia, 08/01/2021 11:11:02 AM Number of Addenda: 0 Note Initiated On: 08/01/2021 9:51 AM PROVATION 08/01/2021 9:51 AM EDT Steven Jeffries MD GENERAL SURGICAL ORD ERABLES PROVATION documented in this encounter Visit Diagnoses [...] at 1139, Endoscopy (Day of Procedure) [facility] 08/01/2021 9:45 AM EDT 100 mL/hr 100 mL/hr documented in this encounter Active and Recently Administered Medications Times are shown in EDT. Continuous Medication Order 07/30/2021 07/31/2021 08/01/2021 lactated ringers infusion (CANCELED) 100 mL/hr, Intravenous, CONTINUOUS, Starting on Fri08/01/21 at 0930, Until Fri08/01/21 at 1139, Endoscopy (Day of Procedure) 0945 (New Bag - Prov ider: Sarah Frazier RN) documented in this encounter Care Teams Underground Electrician Relationship Specialty Start Date End Date Steven Jeffries MD [address] [place] [address] PCP - General General Internal Medicine 02/12/2101/17 documented as of this encounter
--- OUTSIDE RECORDS SUMMARY | 2024-05-21 20:16 | XMS_ITS | Encounter Summary ---
[place] [address] Care Team Providers Care Acetylene Operator Name Role Phone Kaylee Jaquez Primary Care Provider [phone] Encounter Details Date Type Department Care Team [...] on filedocumented in this encounter Care Teams Acetylene Operator Relationship Specialty Start Date End Date Kaylee Jaquez PA [address] [place] [address] PCP - General Family Medicine 01/18/22 documented as of this encounter
--- OUTSIDE RECORDS SUMMARY | 2024-05-21 20:16 | XMS_ITS | Encounter Summary ---
Author Organization [facility] Address [place] [address] Care Team Providers Care Allopathic Doctor Name Role Phone Steven Jeffries MD Primary Care Provider [phone] Reason for Visit * Reason Comments Medication Refill Encounter Details Date Type Department Care Team (Late st Contact Info) Description 04/26/2021 [place] [address] Nimesh Alicia MD [facility] [place] [address] Social History Tobacco Use Types Packs/Day Years [...] on filedocumented in this encounter Care Teams Allopathic Doctor Relationship Specialty Start Date End Date Steven Jeffries MD [address] [place] [address] PCP - General General Internal Medicine 02/12/2101/17 documented as of this encounter
--- OUTSIDE RECORDS SUMMARY | 2024-05-21 20:16 | XMS_ITS | Encounter Summary ---
Author Organization [facility] Address [facility] [place] [address] Care Team Providers Care Type Rolling Machine Operator Name Role Phone Steven Jeffries MD Primary Care Provider [phone] Reason for Visit * Auth/Cert Specialty Diagnoses / Procedures Referred By Jasson mendoza Referred To Contact Diagnoses constipation Procedures PRO COLONOSCOPY, DIAGNOSTIC COLONOSCOPY, DIAGNOSTIC Referral ID Status Reason Start Date Expiration Date Visits Re quested Visits Authorized [id number] 1 1 Encounter Details Date Type Department Care Team (Latest Contact Info) Description 08/01/2021 8:51 AM EDT - 08/01/2021 11:48 AM EDT Hospital En[place] [address] Nimesh Alicia MD [facility] [place] [address] Constipation Discharge Disposition: Home Social History Tobacco [...] occurs, please contact your Doctor. Please call [phone] before 8pm Mon-Fri with problems, questions or concerns. If you call after 8pm or on weekends, call the Hospital at [phone] and ask to speak to the General Manager [employer] transonic engineer and the ager operator will contact that person for you. When should you call for help? Call [phone] anytime you think you may need emergency [...] After Visit Summary and more online at [email or web address] If you would like to provide [...] cost to you. Content Version: 12.2 ?? [id number] [email or web address]. Care instructions adapted under license by [facility]. If you have questions about a medical condition or this instruction, always ask your healthcare professional. [email or web address] disclaims any warranty or liability for your [...] 12/25/2020 08/09/2022 GIDEON ROOT, BULK, MISC by [facility].(Non-Drug; Combo Route) route. 01/29/2022 docusate sodium (Colace) [...] - 07/20/2021 8:23 AM EST Danielle Mills [id number] Diagnosis/Indication: constipation 1. Have you ever had [...] to patient: You must have a responsible alliance party who will drive you to your [...] ??? Carpal tunnel syndrome G56.00 ??? Cystocele [id number] ??? Depression, anxiety, insomnia, PTSD F32.A ??? [...] Operative Note Patient Name: Danielle Mills : [id number] MR#: [id number] Case Date: 08/01/2021 Surgeon: Surgeon(s) and Role: [...] 10:55 AM EDT Colonoscopy, Remv Lesn, Snare ([id number]) 08/01/2021 10:30 AM EDT Constipation, unspecified constipation type COLONOSCOPY Routine 08/01/2021 9:51 AM EDT documented in this encounter Results * Specimen to Pathology (08/01/2021 11:02 AM EDT) AP Specimen 08/01/2021 11:0 2 AM EDT 08/01/2021 11:02 AM EDT [facility] LABORATORY - 08/01/2021 11:02 AM EDT Specimen requisition ordered. ??Separate Pathology report to follow Nimesh Alicia MD PATHOLOGY/CYTOLOGY O MARIANO [facility] [place] [address] * Surgical Pathology Report (08/01/2021 10:55 AM EDT) Final Diagnosis [id number] ? Location: 4T; EA11; A The signing pathologist has (i) examined the relevant preparation(s) for the specimen(s) and (ii) rendered or confirmed the diagnosis(es). . ?Surgical Pathology DIAGNOSIS A - Rectum polyps x2, excision: - ??Hyperplastic polyp. - Mucosal prolapse polyp. - ??Multiple levels examined. Electronically signed by: ?Shane ABDUL PhD, Adela Verified: ??08/06/2021 14:08 ??Pathologist Performed at: ??-[facility] Dept. of [place]ology, [place], [place] SPECIMEN(S) SUBMITTED A - Rectum polyps [...] and trisected ??shb 08/06/2021 2:08 PM EDT [facility] GI Biopsy 08/01/2021 10:5 5 AM EDT 08/01/2021 10:55 AM EDT Nimesh Alicia MD PATHOLOGY/CYTOLOGY O RDKORIBLES [facility] [place] [address] * COLONOSCOPY (08/01/2021 9:51 AM EDT) COLONOSCOPY [facility] Endoscopy Procedure Date: 08/01/2021 9:51 AM ? Patient Name: Danielle Mills ? N: [id number] ? Date of : 1960 ? Age: 61 ? Order #: [id number] ? Instrument Name: [id number] ? Procedure: ? Colonoscopy Indications: ? Constipation [...] Procedure Code(s): ?? --- Professional --- ? 05144, Colonoscopy, flexible; with ? removal of tumor(s), polyp(s), or ? other lesion(s) by snare technique Diagnosis Code(s): ?? --- Professional --- ? K59.00, Constipation, unspecified ? K63.5, Polyp of colon ? --- Technical --- ? K59.00, Constipation, unspecified ? K63.5, Polyp of colon CPT copyright 2019 [employer]. All rights reserved. The codes documented in this report are preliminary and upon high lift operator review may be revised to meet current compliance requirements. Attending Participation: ? I personally performed the entire procedure. ? Nimesh Marta Alicia, 08/01/2021 11:11:02 AM Number of Addenda: [...] RN) documented in this encounter Care Teams Type Rolling Machine Operator Relationship Specialty Start Date End Date Steven Jeffries MD [address] [place] [address] PCP - General General Internal Medicine 02/12/2101/17 documented as of this encounter
--- OUTSIDE RECORDS SUMMARY | 2024-05-21 20:16 | XMS_ITS | Encounter Summary ---
Author Organization [facility] [place] [address] Care Team Providers Care Human Factors Advisor Lead Name Role Phone Steven Jeffries MD Primary Care Provider Reason for Visit * Reason Comments Right Knee Pain S/P TKA dos September 2009 * Consultation (Urgent) - Closed Specialty Diagnoses / Procedures Referred By Jasson mendoza Referred To Contact Orthopaedics Diagnoses Pain in right knee Steven Jeffries MD [address] [place] [address] [facility] Orthopa[facility]ics [address] [place] [phone] Referral ID Status Reason Start Date Expiration Date V isits Requested Visits Authorized [id number] Closed Consult, Test & Treat PCP Updated and/or Approved 02/09/2021 02/09/2022 6 6 Encounter Details Date Type Department Care Team (Late st Contact Info) Description 02/12/2021 10:45 AM EDT Office Visit Orthopaedics at [address] [address] Elvin Whiting MD [address] [place] [address] [place] [address] Presence of right artificial knee joint; Primary [...] with ambulation IMAGING: X-Ray taken today at [facility], were reviewed with the patient and shows: [...] office were reviewed anddiscussed with the patient. [id number] treatment options were reviewed as well Cc: Francy Lowe APRN documented in this encounter Plan of Treatment Not on file documented as of this encounter Visit Diagnoses Diagnosis Presence of right artificial knee joint Knee joint replacement by other means Primary osteoarthritis of right knee Primary localized osteoarthrosis, lower leg documented in this encounter Care Teams Human Factors Advisor Lead Relationship Specialty Start Date End Date Steven Jeffries MD [address] [place] [address] PCP - General General Internal Medicine 02/12/2101/17 documented as of this encounter
--- OUTSIDE RECORDS SUMMARY | 2024-05-21 20:16 | XMS_ITS | Encounter Summary ---
[place] [address] Care Team Providers Care Draw End Hand Name Role Phone Steven Jeffries MD Primary Care Provider [phone] Encounter Details Date Type Department Care Team (Late st Contact Info) Description 02/09/2021 Orders Only Orthopaedics at [address] [address] Elvin Whiting MD [address] [facility] [place] [address] Presence of right artificial knee joint; Primary [...] who have questions please contact the health day care teacher that requested your imaging first. ? Electronically signed by: Gloria Davidson MD, [facility] ([phone]), at 02/12/2021 11:58 AM Narrative 02/12/2021 11:58 [...] patients who have questions please contactthe health day care teacher that requested your imaging first. Electronically signed by: Gloria Davidson MD, [facility]([phone]), at 02/12/2021 11:58 AM Elvin Whiting MD [...] leg documented in this encounter Care Teams Draw End Hand Relationship Specialty Start Date End Date Steven Jeffries MD [address] [place] [address] PCP - General General Internal Medicine 02/12/2101/17 documented as of this encounter
--- OUTSIDE RECORDS SUMMARY | 2024-05-21 20:16 | XMS_ITS | Encounter Summary ---
[place] [address] Care Team Providers Care Food Safety Officer Name Role Phone Kaylee Jaquez Primary [...] on filedocumented in this encounter Care Teams Food Safety Officer Relationship Specialty Start Date End Date Kaylee Jaquez PA [address] [place] [address] PCP - General Family Medicine 01/18/22 documented as of this encounter
--- OUTSIDE RECORDS SUMMARY | 2024-05-21 20:16 | XMS_ITS | Encounter Summary ---
Author Organization [facility] [place] [address] Care Team Providers Care Extraction Machine Operator Name Role Phone Kaylee Jaquez Primary Care Provider Encounter Details Date Type Department Care Team (Late st Contact Info) Description 07/17/2022 Notes [place] [address] Nimesh Alicia MD [facility] [address] Social History Tobacco Use Types Packs/Day Years [...] on filedocumented in this encounter Care Teams Extraction Machine Operator Relationship Specialty Start Date End Date Kaylee Jaquez PA [address] [place], [place] [address] PCP - General Family Medicine 01/18/22 documented as of this encounter
--- OUTSIDE RECORDS SUMMARY | 2024-05-21 20:16 | XMS_ITS | Encounter Summary ---
[place] [address] Care Team Providers Care Stress Engineer Name Role Phone Kaylee Jaquez Primary [...] on filedocumented in this encounter Care Teams Stress Engineer Relationship Specialty Start Date End Date Kaylee Jaquez PA [address] [place] [address] PCP - General Family Medicine 01/18/22 documented as of this encounter
--- OUTSIDE RECORDS SUMMARY | 2024-05-21 20:16 | XMS_ITS | Encounter Summary ---
Author Organization [facility] Address [facility] [place] [address] Care Team Providers Care Load Dropper Name Role Phone Steven Jeffries MD Primary Care Provider [phone] Encounter Details Date Type Department Care Team (Late st Contact Info) Description 05/30/2021 9:30 AM EST Office [place] [address] Marta Rivera MD [facility] [place] [address] Type 2 diabetes, controlled, with neuropathy; Delano's [...] a year atour office by the same lever operator next spring/summer. 4. RTC: 12 mo [...] Date of Visit: 05/30/2021 Patient: Name: Danielle Farias : 1960 PCP: Steven Jeffries MD Reason for follow-up: Delano's thyroiditis with thyroid nodule, obesity with T2DM (A1c 6.8-7.1% recently off high dose insulin and tolerated victoza and glimiperide) and metabolic syndrome, recently admitted in late Jan 2020 for WI s/p 3 stents (02/07/20) Patient verbally consents to this telephone visit and understands that this visit may be billed, similar to a clinic office visit. I provided care to the patient today via telephone call. The total time associated with this visit was 30 minutes. HISTORY OF PRESENT ILLNESS: Dainelle Farias is a very pleasant 60 y.o. female [...] to BEN. She recently admitted due to WI s/p 3 stents for her 3vss CAD with summary as shown below: Hospital Course during 02/06-02/09/20: #NSTEMI s/p PCI with JEANETH to LAD, LPA and LPL1 Admitted to the cardiology service. 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 [...] and occasional difficulty swallowing. Thyroid US at [facility] on 10/22/19 showed a Rt thyroid [...] ??? Carpal tunnel syndrome G56.00 ??? Cystocele [id number] ??? Depression, anxiety, insomnia, PTSD F32.A ??? [...] No proximal muscle weakness. Thyroid US at [facility] Radiology (10/22/19) before taking thyroid Rx showed a Rt thyroid nodule of 1.1 cmand the others were < 1 cm with rec to FU in 6 mo. Office Thyroid Ultrasound: 12/06/19 (~6 weeks after taking liothyronine supplement) Indication: Rt thyroid nodule and Delano's thyroiditis - to assess nodule characteristic & may need FNA biopsy if suspicious. Comparison: 10/22/19 US from outside at [facility]. Procedure: Real-time ultrasonography limited to the thyroid gland and lateral neck area with and without color doppler were obtained using a [employer] Focus 400 US machine and an HFL38/15-6 [...] recently admitted in late Jan 2020 for WI s/p 3 stents (02/07/20), so we will [...] a year atour office by the same lever operator next spring/summer. 4. RTC: 12 mo [...] Date of Visit: 05/30/2021 Patient: Name: Danielle Farias : 1960 PCP: Steven Jeffries MD Danielle Farias was seen in the Endocrine clinic in [...] and occasional difficulty swallowing. Thyroid US at [facility] on 10/22/19 showed a Rt thyroid [...] ??? Carpal tunnel syndrome G56.00 ??? Cystocele [id number] ??? Depression, anxiety, insomnia, PTSD F32.A ??? [...] No proximal muscle weakness. Thyroid US at [facility] Radiology (10/22/19) before taking thyroid Rx showed a Rt thyroid nodule of 1.1 cmand the others were < 1 cm with rec to FU in 6 mo. Office Thyroid Ultrasound: 05/30/2021 Indication: Rt thyroid nodule and Delano's thyroiditis - to assess nodule size after 1.5 yrs Comparison:12/06/19 at our clinic 10/22/19 US from outside at [facility]. Procedure: Real-time ultrasonography limited to the thyroid gland and lateral neck area with and without color doppler were obtained using a [employer] Flex Focus 400 US machine and an [...] our officetoday as above (by the same lever operator). 4. RTC: 6-12 mo to assess [...] EST Office Thyroid Ultrasound: 05/30/2021 Name: Danielle Farias : 1960 PCP: Steven Jeffries MD Indication: Rt thyroid nodule and Delano's thyroiditis - to assess nodule size after 1.5 yrs Comparison:12/06/19 at our clinic 10/22/19 US from outside at [facility]. Procedure: Real-time ultrasonography limited to the thyroid gland and lateral neck area with and without color doppler were obtained using a [employer] Flex Focus 400 US machine and an [...] goiter documented in this encounter Care Teams Load Dropper Relationship Specialty Start Date End Date Steven Jeffries MD [address] [place] [address] PCP - General General Internal Medicine 02/12/2101/17 documented as of this encounter
--- OUTSIDE RECORDS SUMMARY | 2024-05-21 20:16 | XMS_ITS | Encounter Summary ---
Author Organization [facility] [place] [address] Care Team Providers Care Roastmaster Name Role Phone Kaylee Jaquez Primary Care Provider [phone] Reason for Visit * Reason Onset Date Comments Medication Refill 09/04/2022 Encounter Details Date Type Department Care Team (Late st Contact Info) Description 09/04/2022 Refill Cardiology at [address] [address] Lc Garcia MD [facility] [place] [address] Medication Refill Social History Tobacco Use Types [...] unspecified documented in this encounter Care Teams Roastmaster Relationship Specialty Start Date End Date Kaylee Jaquez PA [address] [place] [address] PCP - General Family Medicine 01/18/22 documented as of this encounter
--- OUTSIDE RECORDS SUMMARY | 2024-05-21 20:16 | XMS_ITS | Encounter Summary ---
[facility] Organization [facility] [place] [address] Care Team Providers Care Laundry Agent Name Role Phone Kaylee Jaquez Primary Care Provider Encounter Details Date Type Department Care Team (Late st Contact Info) Description 07/31/2022 Orders [place] [address] Nimesh Alicia MD [facility] [place] [address] Social History Tobacco Use Types Packs/Day Years [...] on filedocumented in this encounter Care Teams Laundry Agent Relationship Specialty Start Date End Date Kaylee Jaquez PA [address] [place], [place] [address] PCP - General Family Medicine 01/18/22 documented as of this encounter
--- OUTSIDE RECORDS SUMMARY | 2024-05-21 20:16 | XMS_ITS | Encounter Summary ---
[place] [address] Care Team Providers Care Starbucks Clerk Name Role Phone Steven Jeffries MD Primary Care Provider [phone] Encounter Details Date Type Department Care Team (Latest Contact Info) Description 02/12/2021 10:35 AM EDT Ancillary Procedure XRay at [address] [address] Elvin Whiting MD [address] [place] [address] [place] [address] Presence of right artificial knee joint; Primary [...] questions please contact the health primary care provider that requested your imaging first. ? Electronically signed by: Gloria Davidson MD, [facility] ([phone]), at 02/12/2021 11:58 AM Narrative 02/12/2021 11:58 [...] have questions please contactthe health primary care provider that requested your imaging first. Electronically signed by: Gloria Davidson MD, [facility]([phone]), at 02/12/2021 11:58 AM Elvin Whiting MD IMG DX ORDERABLES documented in this encounter Visit Diagnoses Diagnosis Presence of right artificial knee joint Knee joint replacement by other means Primary osteoarthritis of right knee Primary localized osteoarthrosis, lower leg documented in this encounter Care Teams Starbucks Clerk Relationship Specialty Start Date End Date Steven Jeffries MD [address] [place] [address] PCP - General General Internal Medicine 02/12/2101/17 documented as of this encounter
--- OUTSIDE RECORDS SUMMARY | 2024-05-21 20:16 | XMS_ITS | Encounter Summary ---
Author Organization [facility] Address [facility] [place] [address] Care Team Providers Care Stock Hanger Name Role Phone Steven Jeffries MD Primary Care Provider [phone] Reason for Visit * Reason Onset Date Comments Medication Refill 01/02/2022 Encounter Details Date Type Department Care Team (Late st Contact Info) Description 01/02/2022 Refill [place] [address] Nimesh Alicia MD [facility] [place] [address] Social History Tobacco Use Types Packs/Day Years [...] on filedocumented in this encounter Care Teams Stock Hanger Relationship Specialty Start Date End Date Steven Jeffries MD [address] [facility] [address] PCP - General General Internal Medicine 02/12/2101/17 documented as of this encounter
--- OUTSIDE RECORDS SUMMARY | 2024-05-21 20:16 | XMS_ITS | Encounter Summary ---
Author Organization [facility] Address [facility] [place] [address] Care Team Providers Care Shift Coordinator Name Role Phone Steven Jeffries MD Primary Care Provider [phone] Reason for Visit * Reason Onset Date Comments Medication Refill 05/30/2021 Encounter Details Date Type Department Care Team (Late st Contact Info) Description 05/30/2021 Refill [place] [address] Nimesh Alicia MD [facility] [place] [address] Social History Tobacco Use Types Packs/Day Years [...] on filedocumented in this encounter Care Teams Shift Coordinator Relationship Specialty Start Date End Date Steven Jeffries MD [address] [place], [place] [address] PCP - General General Internal Medicine 10/4/21 9/8 /22 documented as of this encounter
--- OUTSIDE RECORDS SUMMARY | 2024-05-21 20:16 | XMS_ITS | Encounter Summary ---
[place] [address] Care Team Providers Care Bilingual Legal Assistant Name Role Phone Kaylee Jaquez Primary Care Provider [phone] Reason for Visit * Reason Onset Date Comments Prior Authorization 08/07/2022 dexlansopraz ole (Dexilant) [address] capsule Encounter Details Date Type Department Care Team (Late st Contact Info) Description 08/07/2022 Telephone [place] [address] Crista Beckwith CMA Prior Authorization (dexlansoprazole (Dexilant) [...] Date: 08/07/2022 End Date: 05/11/2023 Case/Reference #: JUAN [id number] Letter of approval will be scanned to media once received. Additional Notes: * Telephone Encounter - Crista Beckwith CMA - 08/07/2022 4:09 PM EDTSummary: JUAN PABLO submitted - dexlansoprazole Medication Prior Authorization Patient: Danielle Mills Patient : 1960 Insurance Company: [employer] Medicare Sent via: Verified Identity Pass Leon: [id number] Physician: Nimesh Alicia MD Medication Requested: dexlansoprazole [...] filedocumented in this encounter Care Teams Bilingual Legal Assistant Relationship Specialty Start Date End Date Kaylee Jaquez PA [address] [place] [address] PCP - General Family Medicine 01/18/22 documented as of this encounter
--- OUTSIDE RECORDS SUMMARY | 2024-05-21 20:16 | XMS_ITS | Encounter Summary ---
[place] [address] Care Team Providers Care Prepared Foods Supervisor Name Role Phone Kaylee Jaquez Primary Care Provider [phone] Reason for Visit * Reason Comments Right Knee Pain S/P TKA dos September 2009 Encounter Details Date Type Department Care Team (Late st Contact Info) Description 03/04/2022 2:30 PM EDT Office Visit Orthopaedics at [address] [address] Elvin Whiting MD [address] [place] [address] [place] [address] Primary osteoarthritis of right knee; Presence of [...] ecchymosis lymphadenopathy IMAGING: X-Ray taken today at [facility], were reviewed with the patient [...] means documented in this encounter Care Teams Prepared Foods Supervisor Relationship Specialty Start Date End Date Kaylee Jaquez PA [address] [place] [address] PCP - General Family Medicine 01/18/22 documented as of this encounter
--- OUTSIDE RECORDS SUMMARY | 2024-05-21 20:16 | XMS_ITS | Encounter Summary ---
Author Organization [facility] [place] [address] Care Team Providers Care Cementer Oil Well Name Role Phone Kaylee Jaquez Primary Care Provider [phone] Reason for Visit * Reason Onset Date Comments Medication Refill 01/26/2022 Encounter Details Date Type Department Care Team (Late st Contact Info) Description 01/26/2022 Ref[place] [address] Marta Rivera MD [facility] [place] [address] Social History Tobacco Use Types Packs/Day Years [...] on filedocumented in this encounter Care Teams Cementer Oil Well Relationship Specialty Start Date End Date Kaylee Jaquez PA [address] [facility] [place], [place] [address] PCP - General Family Medicine 01/18/22 documented as of this encounter
--- OUTSIDE RECORDS SUMMARY | 2024-05-21 20:16 | XMS_ITS | Encounter Summary ---
[place] [address] Care Team Providers Care Bakery Worker Name Role Phone Kaylee Jaquez Primary [...] on filedocumented in this encounter Care Teams Bakery Worker Relationship Specialty Start Date End Date Kaylee Jaquez PA [address] [place] [address] PCP - General Family Medicine 01/18/22 documented as of this encounter
--- OUTSIDE RECORDS SUMMARY | 2024-05-21 20:16 | XMS_ITS | Encounter Summary ---
Author Organization [place] [address] Care Team Providers Care Senior Data Modeler Name Role Phone Steven Jeffries MD Primary Care Provider [phone] Reason for Visit * Auth/Cert Specialty Diagnoses / Procedures Referred By Jasson mendoza Referred To Contact Diagnoses constipation Procedures PRO COLONOSCOPY, DIAGNOSTIC COLONOSCOPY, DIAGNOSTIC Referral ID Status Reason Start Date Expiration Date Visits Re quested Visits Authorized [id number] 1 1 Encounter Details Date Type Department Care Team (Late st Contact Info) Description 08/01/2021 10:30 AM EDT Anesthesia [place] [address] Viviana Mcclellan MD [facility] [place] [address] Anesthesia Record Procedure Summary Procedure Name Responsible [...] 0945; median cubital vein (antecubital fossa), left; unjq-uwf-alstmv catheter system; Anatomical Landmarks; 20 gauge; distraction, intradermal injection, tolerated well; 1; metacarpal vein (top of hand), right; 08/01/21; 1138 08/01/21 0945 by Sarah Frazier RN 08/01/21 1138 by Helena Du RN documented in this encounter Social History [...] Procedure Summary Date: 08/01/21 Room / Location: [facility] / [facility] Anesthesia Start: 1030 Anesthesia Stop: 1102 Procedure: COLONOSCOPY, POLYPECTOMY, REMOVAL LESION BY SNARE (WRVU 4.67) (N/A Trunk) Diagnosis: Constipation, unspecified constipation type (constipation) Surgeons: Nimesh Alicia MD Responsible Provider: Viviana Mcclellan MD Anesthesia Type: MAC ASA Status: 4 All Anesthesia Providers: Anesthesiologist: Viviana Mcclellan MD TOP TILE DECORATOR: Elba Bean CRNA Vitals Value Taken Time BP 104/63 08/01/21 1120 Temp Pulse Resp SpO2 98 % 08/01/21 1126 Pain Level 0 08/01/21 1120 Vitals shown include unvalidated device data. Patient Location: PACU/SDP Level of Consciousness: Conscious but Sleepy Pain [...] Date ??? ABDOMEN SURGERY ??? ANUS SURGERY 2005 Anal fissure repair Procedure Date: 2005 ??? CARPAL TUNNEL RELEASE Bilateral ~2005 Bilateral [...] 2.49) performed by Nimesh Alicia MD at [facility] ??? RECTOCELE REPAIR 2014 Dr. Boo @ [facility] ??? 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 Plan discussed with TOP TILE DECORATOR. Anesthesia Screening documented in this encounter Plan [...] mg documented in this encounter Care Teams Senior Data Modeler Relationship Specialty Start Date End Date Steven Jeffries MD [address] [place] [address] PCP - General General Internal Medicine 02/12/2101/17 documented as of this encounter
--- OUTSIDE RECORDS SUMMARY | 2024-05-21 20:16 | XMS_ITS | Encounter Summary ---
[place] [address] Care Team Providers Care Customer Equipment Engineer Name Role Phone Kaylee Jaquez Primary Care Provider Reason for Referral * Consultation (Routine) - Closed Specialty Diagnoses / Procedures Referred By Jasson mendoza Referred To Contact [facility] Diagnoses Cervical spondylosis Connective tissue and disc stenosis of intervertebral foramina of cervical region Kaylee Jaquez PA [address] [place] [address] [facility] [place] [address] Referral ID Status Reason Start Date Expiration Date V isits Requested Visits Authorized [id number] Closed Consult, Test & Treat PCP Updated and/or Approved 01/18/2022 01/18/2023 6 6 Encounter Details Date Type Department Care Team (Latest Contact Info) Description 01/18/2022 Transcribe Orders eDH Incoming Referrals [phone] Kaylee Jaquez PA [address] [place] [phone] Cervical spondylosis Social History Tobacco Use Types [...] myelopathy documented in this encounter Care Teams Customer Equipment Engineer Relationship Specialty Start Date End Date Kaylee Jaquez PA [address] [place] [address] PCP - General Family Medicine 01/18/22 documented as of this encounter
--- OUTSIDE RECORDS SUMMARY | 2024-05-21 20:16 | XMS_ITS | Encounter Summary ---
[place] [address] Care Team Providers Care S3B Multi Sensor Operator Name Role Phone Kaylee Jaquez Primary Care Provider [phone] Reason for Referral * Consultation (Routine) - Canceled Specialty Diagnoses / Procedures Referred By Contac t Referred To Contact [facility] Diagnoses Chronic midline low back pain, unspecified whether sciatica present Sirisha Tolliver APRN [facility] [place] [address] [facility] [place] [address] Referral ID Status Reason Start Date Expiration Date V isits Requested Visits Authorized [id number] Canceled Consult, Test & Treat 01/29/2022 01/29/2023 1 1 Reason for Visit * Reason Comments Pain Lower back /tail bon e - down Left legNeck pain * Consultation (Routine) - Closed Specialty Diagnoses / Procedures Referred By Contac t Referred To [facility] Diagnoses Cervical spondylosis Connective tissue and disc stenosis of intervertebral foramina of cervical region Kaylee Jaquez PA [address] [place] [address] [facility] [place] [address] Referral ID Status Reason Start Date Expiration Date V isits Requested Visits Authorized [id number] Closed Consult, Test & Treat PCP Updated and/or Approved 01/18/2022 01/18/2023 6 6 Encounter Details Date Type Department Care Team (Late st Contact Info) Description 01/29/2022 1:30 PM EDT Office Visit [facility] [place] [address] Sirisha Tolliver, BELTING INSPECTOR [facility] [place] [address] Chronic midline low back pain, unspecified whether [...] this encounter Progress Notes * Sirisha Tolliver, BELTING INSPECTOR - 01/29/2022 1:30 PM EDT Images from the original note were not included. [facility] Date [...] 43.97 PAST THERAPIES: Tylenol advil PT in [place], trying to change walking gait. Injections MARINE, YASMINE, LESI Chiropractor activator Functional Status Work--disbaled ADL's---can do pretty much everything with pacing Lives at home with her [facility] Prescription Monitoring Program was checked. The [...] ??? Carpal tunnel syndrome G56.00 ??? Cystocele [id number] ??? Depression, anxiety, insomnia, PTSD F32.A ??? [...] 4.67) performed by Nimesh Alicia MD at [facility] ??? PRO UPPER GI ENDOSCOPY, BIOPSY N/A 11/19/2018 EGD WITH BIOPSY (WRVU 2.49) performed by Nimesh Alicia MD at [facility] ??? RECTOCELE REPAIR 2014 Dr. Boo @ [facility] ??? SHOULDER SURGERY Left 06/05/2017 [...] y.o. year-old female who presents to the [facility] I spoke to the patient about her active pain service and the welcome group as well as the functional yarsanism program in detail. She actually has an acquaintance who went through the functional yarsanism program successfully and she is quite interested in that. We have agreed to have her go through the welcome group and pain 100 and perhaps empowered relief. If she listens tothe welcome group and is interested in the functional yarsanism program and the time team thinks is appropriate, she can go forward with a gap assessment to identify her goals and her needs. I am happy to see her in follow-up for a medical clearance afterwards. All her questions were answered. Thank you Dr. Cadena for allowing my participation in Danielle Mills's care. Sirisha Tolliver, MS, SENIOR WEB APPLICATIONS DEVELOPER-BC, BELTING INSPECTOR Nurse practitioner Pain management [facility] documented in this encounter Plan of Treatment Scheduled Referrals Name Type Priority Associated Diagnoses Orde r Schedule Amb Referral to Active Pain Care Services Outpatient Referral Routine Chronic midline low back pain, unspecified whether sciatica present Ordered: 01/29/2022 documented as of this encounter Visit Diagnoses Diagnosis Chronic midline low back pain, unspecified whether sciatica present- Primary documented in this encounter Care Teams S3B Multi Sensor Operator Relationship Specialty Start Date End Date Kaylee Jaquez PA [address] [place] [address] PCP - General Family Medicine 01/18/22 documented as of this encounter
--- OUTSIDE RECORDS SUMMARY | 2024-05-21 20:16 | XMS_ITS | Encounter Summary ---
Author Organization [facility] [place] [address] Care Team Providers Care Dishwashing Machine Operator Name Role Phone Kaylee Jaquez Primary Care Provider Encounter Details Date Type Department Care Team (Latest Contact Info) Description 08/09/2022 1:40 PM EDT Office Visit Cardiology at [address] [address] Lc Garcia MD [facility] [place] [address] ASCVD (arteriosclerotic cardiovascular disease); Hyperlipidemia, unspecified hyperlipidemia [...] Garcia MD - 08/09/2022 1:40 PM EDT [facility] Outpatient Cardiology Patient: Danielle Mills : 1960 Reason for consult: ASCVD, hypertension, hyperlipidemia PCP: JUAN PABLO Waterman History of present illness: Danielle Mills is a 62 y.o. 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 History is notable for multivessel PCI in the context of non- STEMI in January 2022 performed at [facility], referred from [facility]. The patient was noted to have three-vessel [...] not following with Dr. Carlos Jenkins at [facility]. She was switched to Repatha after both [...] chest pain. She recalls that her prior head waiter palpated her chest which reproduced the sensation. [...] Constipation Added automatically from request for surgery [id number] ??? Non-ST elevation myocardial infarction (NSTEMI) ??? [...] 4.67) performed by Nimesh Alicia MD at [facility] ??? PRO UPPER GI ENDOSCOPY, BIOPSY N/A 11/19/2018 EGD WITH BIOPSY (WRVU 2.49) performed by Nimesh Alicia MD at [facility] ??? RECTOCELE REPAIR 2014 Dr. Boo @ [facility] ??? SHOULDER SURGERY Left 06/05/2017 L [...] following the recent departure of her local head waiter, Dr. Jenkins, at [facility]. History is remarkable for multivessel ASCVD status [...] another round of tobacco cessation counseling at [facility], which the patient declined. After our discussion, [...] her BMI at the time of her ND was 43. -Follow up in 1 year, sooner if concerning symptoms. Patient agrees to contact this office if symptoms worsen or fail to improve. Lc Garcia MD, PARTH, FACC, FACP, FASE Cardiovascular Medicine Thank you for this referral. If you would like to discuss this patient, please contact me at [phone] or by email at .[email or web address]. CC: JUAN PABLO Waterman documented in this [...] disorder documented in this encounter Care Teams Dishwashing Machine Operator Relationship Specialty Start Date End Date Kaylee Jaquez PA [address] [place] [address] PCP - General Family Medicine 01/18/22 documented as of this encounter
--- OUTSIDE RECORDS SUMMARY | 2024-05-21 20:16 | XMS_ITS | Encounter Summary ---
[place] [address] Care Team Providers Care Consumer Affairs Manager Name Role Phone Kaylee Jaquez Primary Care Provider [phone] Reason for Visit * Reason Onset Date Comments Prior Authorization 09/05/2022 Motegrity Encounter Details Date Type Department Care Team (Late st Contact Info) Description 09/05/2022 Telephone [place] [address] Paulette Guevara CMA Prior Authorization ([place]ua) Social History Tobacco Use Types Packs/Day Years [...] Next Review Date: Next Review Date: 05/11/2023 PA Outcome: PA Approval Medication Prior Authorization Approval Approved: Motegrity 1MG tablets Start Date: 09/06/2022 End Date: 05/11/2023 Case/Reference #: JUAN PABLO Case ID: [id number] [id number] Approval Letter will be scanned into media once received. * Telephone Encounter - Paulette Guevara CMA - 09/06/2022 10:36 AM EDT Images from the original note were not included. Received additional information request form from [employer]. Form printed off, filled out, faxed back to the insurance at [phone], and scanned into the patient chart. * Telephone Encounter - Paulette Guevara CMA - 09/05/2022 2:28 PM EDT PA Submitted Submitted Date: Submitted Date: 09/05/2022 Medication Prior Authorization Patient: Danielle Mills Patient : 1960 Insurance Company: [employer] Sent via: [employer] Leon: [id number] Physician: Nimesh Alicia MD Medication Requested: prucalopride [...] would be a good option for her. [facility] Endoscopy Procedure Date: 08/01/2021 9:51 AM ? Patient Name: Danielle Mills ? Date of : 1960 ? Age: 61 ? Order #: [id number] ? Instrument Name: [id number] ? Procedure: ? Colonoscopy Indications: ? Constipation Providers: ? Deidre Christian, ?Carlos Veliz Referring MD: ?Steven Jeffries MD Medicines: [...] ? Procedure Code(s): ?? --- Professional --- ?50307, Colonoscopy, flexible; with ?removal of tumor(s), polyp(s), or ?other lesion(s) by snare technique Diagnosis Code(s): ?? --- Professional --- ?K59.00, Constipation, unspecified ?K63.5, Polyp of colon ?--- Technical --- ?K59.00, Constipation, unspecified ?K63.5, Polyp of colon CPT copyright 2019 [employer]. All rights reserved. The codes documented in this report are preliminary and upon health insurance sales agent review may be revised to meet current compliance requirements. Attending Participation: ?I personally performed the entire procedure. ? Nimesh Alicia, 08/01/2021 11:11:02 AM Number of Addenda: 0 [facility] Endoscopy Procedure Date: 11/19/2018 12:41 PM ? Patient Name: Danielle Mills ? Date of : 1960 ? Age: 58 ? Order #: [id number] ? Instrument Name: [id number] LOANER ? Procedure: ? Upper GI endoscopy Indications: ? Follow-up of Johnson's esophagus Providers: ? Nimesh Alicia MD, Yaneli ?Risa Moses MD: ?Steven [...] on filedocumented in this encounter Care Teams Consumer Affairs Manager Relationship Specialty Start Date End Date Kaylee Jaquez PA [address] [place] [address] PCP - General Family Medicine 01/18/22 documented as of this encounter
--- OUTSIDE RECORDS SUMMARY | 2024-05-21 20:16 | XMS_ITS | Encounter Summary ---
[place] [address] Care Team Providers Care Filer Finish Name Role Phone Kaylee Jaquez Primary Care Provider [phone] Encounter Details Date Type Department Care Team (Late st Contact Info) Description 01/31/2022 Notes Only [facility] [place] [address] Lisa Hernandez Social History Tobacco Use Types [...] for [employer] Welcome Group however, canceled via [facility] stating - After looking upthe program, it's [...] on filedocumented in this encounter Care Teams Filer Finish Relationship Specialty Start Date End Date Kaylee Jaquez PA [address] [place] [address] PCP - General Family Medicine 01/18/22 documented as of this encounter
--- OUTSIDE RECORDS SUMMARY | 2024-05-21 20:16 | XMS_ITS | Encounter Summary ---
[place] [address] Care Team Providers Care Aeronautics Teacher Name Role Phone Kaylee Jaquez Primary Care Provider Reason for Referral * Consultation (Routine) - Closed Specialty Diagnoses / Procedures Referred By Contac t Referred To [facility] Diagnoses Chronic midline low back pain, unspecified whether sciatica present Maxime Cadena MD [facility] [place] [address] [facility] [place] [place] [address] Referral ID Status Reason Start Date Expiration Date V isits Requested Visits Authorized [id number] Closed Consult, Test & Treat 01/21/2022 01/21/2023 [...] tried PT/ MRI 11/23/21 @ [facility] *AMP or KJM Kaylee Jaquez PA [address] [place] [address] [facility] [place] [address] Referral ID Status Reason Start Date Expiration Date V isits Requested Visits Authorized [id number] Closed Evaluate and Treat PCP Updated and/or Approved 11/28/2021 11/28/2022 6 6 Encounter Details Date Type Department Care Team (Late st Contact Info) Description 01/21/2022 3:00 PM EDT Office Visit [place] [phone] Maxime Cadena MD [facility] [place] [address] Chronic midline low back pain, unspecified whether [...] ago following a work- related injury at [employer] with repetitive bending, twisting, and lifting in [...] Past medical history: Heart disease status post [place], diabetes, Delano's thyroiditis Past surgical history: Hysterectomy, [...] present documented in this encounter Care Teams Aeronautics Teacher Relationship Specialty Start Date End Date Kaylee Jaquez PA [address] [place] [address] PCP - General Family Medicine 01/18/22 documented as of this encounter
--- OUTSIDE RECORDS SUMMARY | 2024-05-21 20:16 | XMS_ITS | Encounter Summary ---
Author Organization [facility] Address [facility] [place] [address] Care Team Providers Care Patient Information Coordinator Name Role Phone Kaylee Jaquez Primary Care Provider Encounter Details Date Type Department Care Team (Late st Contact Info) Description 07/29/2022 10:00 AM EDT Office [place] [address] Marta Cabral MD [facility] [place] [address] Type 2 diabetes, controlled, with neuropathy; Delano's [...] Placed This Encounter Procedures Hemoglobin A1c TSH [place] Vitamin D, 25-Hydroxy LDL Cholesterol, Direct Basic Metabolic Panel (non-fasting) U Albumin/Cre Ratio X-ray/Imaging study: Office Thyroid ultrasound for thyroid nodule size after 2-5 year at our officenext year (by the same drop machine operator). 4. RTC: 12 mo for thyroid [...] difficulty swallowing. Thyroid US at [facility] on 10/22/19 showed a Rt [...] ??? Carpal tunnel syndrome G56.00 ??? Cystocele [id number] ??? Depression, anxiety, insomnia, PTSD F32.A ??? [...] muscle weakness. Thyroid US at [facility] Radiology (10/22/19) before taking thyroid Rx showed a Rt thyroid nodule of 1.1 cmand the others were < 1 cm with rec to FU in 6 mo. Office Thyroid Ultrasound: 05/30/21 Indication: Rt thyroid nodule and Delano's thyroiditis - to assess nodule size after 1.5 yrs Comparison:12/06/19 at our clinic 10/22/19 US from outside at [facility]. Procedure: Real-time ultrasonography limited to the thyroid gland and lateral neck area with and without color doppler were obtained using a [employer] Flex Focus 400 US machine and an [...] ng/mL 25-OH Vit D Interp Sufficient TSH [place] Result Value Ref Range TSH 1.27 0.27 [...] Encounter Procedures ??? Hemoglobin A1c ??? TSH [place] ??? Vitamin D, 25-Hydroxy ??? LDL Cholesterol, Direct ??? Basic Metabolic Panel (non-fasting) ??? U Albumin/Cre Ratio X-ray/Imaging study: Office Thyroid ultrasound for thyroid nodule size after 2-5 year at our officenext year (by the same drop machine operator). 4. RTC: 12 mo for thyroid [...] Procedure Name Priority Date/Time Associated Diagnosis Comments U ALBUMIN/CRE RATIO Routine 07/29/2022 1 0:59 [...] D deficiency 3-vessel CAD HEMOGLOBIN A1C Routine 07/29/2022 10:55 AM EDT Type 2 [...] Not Calculated 0 - 29 mcg/mg Cr [facility] Comment: Reference Ranges: <30 mcg/mg: Normal [...] 2, 357? 362 Albumin, Urine <3.0 mg/L [facility] Creatinine, Urine 49 mg/dL [facility] Urine 07/29/2022 10:5 9 AM EDT 07/29/2022 11:16 AM EDT Narrative Resulting Agency Comment Spec In Lab Marta Cabral MD URINE ORDERABLES [facility] [place] [address] * Basic Metabolic Panel (non-fasting) (07/29/2022 10:55 AM EDT) Glucose 139 65 - 199 mg/dL [facility] Comment:Diabetes: >=200 mg/d L plus symptoms Blood Urea Nitrogen 11 8 - 18 mg/dL [facility] Creatinine 0.70 0.70 - 1.20 mg/dL [facility] Sodium 142 135 - 145 mmol/L [facility] Potassium 3.8 3.5 - 5.0 mmol/L [facility] Comment: Please note: ??Patients with WBC >100,000 may have falsely elevated Potassium levels. ??For accurate Potassium quantification in these patients send serum separator tube (gold top) for subsequent determinations. ??Contact the Clinical Chemistry Laboratory if there are any questions. Chloride 103 98 - 107 mmol/L [facility] Carbon Dioxide 28 22 - 31 mmol/L [facility] Anion Gap 11 5 - 15 mmol/L [facility] Calcium 9.4 8.5 - 10.5 mg/dL [facility] Est Glomerular Filtration Rate 98 >=60 mL/min/1. 73 m?? [facility] Comment: This patient's estimated GFR was [...] MD CHEMISTRY ORDERAB LES Performing Organization Address City/[facility]/ZIP Co de Phone Number [facility] [place] [address] * LDL Cholesterol, Direct (07/29/2022 10:55 AM EDT) LDL Cholesterol, Direct 69 mg/dL [facility] Comment: Lowest Risk: <100 mg/dL Lower Risk: 100-129 mg/dL Borderline High Risk: 130-159 mg/dL High Risk: 160-189 mg/dL Very High Risk: >hj=856 mg/dL Blood 07/29/2022 10:5 5 AM EDT 07/29/2022 11:15 AM EDT Narrative Resulting Agency Comment Spec In Lab Marta Cabral MD CHEMISTRY ORDERAB LES [facility] [place] [address] * Vitamin D, 25-Hydroxy (07/29/2022 10:55 AM EDT) Vitamin D Total 25 OH 34 21 - 100 ng/mL [facility] Vit D Interp Sufficient [facility] Blood 07/29/2022 10:5 5 AM EDT 07/29/2022 11:15 AM EDT Narrative Resulting Agency Comment Spec In Lab Marta Cabral MD CHEMISTRY ORDERAB LES Performing Organization Address City/[facility] Co de Phone Number [facility] [place] [address] * TSH [place] (07/29/2022 10:55 AM EDT) Thyroid Stimulating Hormone 1.27 0.27 - 4.20 mcIU/mL [facility] Comment: Reference Interval (mcIU/mL): Females: ??First Trimester: 0.23-3.88 ??Second Trimester: 0.22-3.90 ??Third Trimester: 0.44-4.66 Blood 07/29/2022 10:5 5 AM EDT 07/29/2022 11:15 AM EDT Narrative Resulting Agency Comment Spec In Lab Marta Cabral MD CHEMISTRY ORDERAB LES Performing Organization Address City/[facility] Co de Phone Number [facility] [address] * (ABNORMAL) Hemoglobin A1c (07/29/2022 10:55 AM EDT) Hemoglobin A1c 6.5(H) 4.3 - 5.6 % [facility] Comment: Reference Range: 4.3 - 5.6% [...] Mellitus, Diabetes Care 2013; 36: Suppl. 1, D45-78 Estimated Average Glucose 140 mg/dL [facility] Comment: eAG equivalents for HbA1c [...] into estimated average glucose values. ??Diabetes Care 2008:31(8):0686-0932. Blood 07/29/2022 10:5 5 AM EDT 07/29/2022 11:15 AM EDT Narrative Resulting Agency Comment Spec In Lab Marta Cabral MD CHEMISTRY ORDERAB LES [facility] [place] [address] documented in this encounter Visit Diagnoses Diagnosis Type 2 diabetes, controlled, with neuropathy Type II or unspecified type diabetes mellitus with neurological manifestations, not stated as uncontrolled Delano's thyroiditis Chronic lymphocytic thyroiditis Vitamin D deficiency Unspecified vitamin D deficiency 3-vessel CAD Coronary atherosclerosis of unspecified type of vessel, pauma or graft documented in this encounter Care Teams Patient Information Coordinator Relationship Specialty Start Date End Date Kaylee Jaquez PA [address] [address] PCP - General Family Medicine 01/18/22 documented as of this encounter
--- OUTSIDE RECORDS SUMMARY | 2024-05-21 20:16 | XMS_ITS | Encounter Summary ---
Author Organization [facility] [place] [address] Care Team Providers Care Arch Support Technician Name Role Phone Kaylee Jaquez Primary Care Provider Reason for Visit * Reason Comments Medication Refill Encounter Details Date Type Department Care Team (Late st Contact Info) Description 01/26/2022 [place] [address] Marta Rivera MD [facility] [place] [address] Social History Tobacco Use Types Packs/Day Years [...] on filedocumented in this encounter Care Teams Arch Support Technician Relationship Specialty Start Date End Date Kaylee Jaquez PA [address] [place], [place] [address] PCP - General Family Medicine 01/18/22 documented as of this encounter
--- OUTSIDE RECORDS SUMMARY | 2024-05-21 20:16 | XMS_ITS | Encounter Summary ---
Author Organization [facility] Address [facility] [place] [address] Care Team Providers Care Liquor Rectifier Name Role Phone Steven Jeffries MD Primary Care Provider [phone] Reason for Visit * Reason Comments Medication Refill Encounter Details Date Type Department Care Team (Late st Contact Info) Description 07/07/2021 Refill [place] [address] Marta Rivera MD [facility] [place] [address] Type 2 diabetes, controlled, with neuropathy Social [...] uncontrolled documented in this encounter Care Teams Liquor Rectifier Relationship Specialty Start Date End Date Steven Jeffries MD [address] [place] [address] PCP - General General Internal Medicine 02/12/2101/17 documented as of this encounter
--- OUTSIDE RECORDS SUMMARY | 2024-05-21 20:16 | XMS_ITS | Encounter Summary ---
Author Organization [facility] [place] [address] Care Team Providers Care Director Independent Name Role Phone Steven Jeffries MD Primary Care Provider Encounter Details Date Type Department Care Team (Late st Contact Info) Description 11/23/2021 Ancillary Procedure Radiology Library at [facility] [place] [address] Steven Jeffries MD [address] [facility] [place] [address] Social History Tobacco Use Types Packs/Day Years [...] MR Spine (11/23/2021 12:00 AM EDT) Narrative [facility] - 01/16/2022 3:10 PM EDT This exam is auto-finalizing. It's purpose is for storage only. Steven Jeffries MD IMG FILM LIBRARY ORD ERABLES [place], [place] documented in this encounter Visit Diagnoses Not on filedocumented in this encounter Care Teams Director Independent Relationship Specialty Start Date End Date Steven Jeffries MD [address] [place] [address] PCP - General General Internal Medicine 02/12/2101/17 documented as of this encounter
--- OUTSIDE RECORDS SUMMARY | 2024-05-21 20:16 | XMS_ITS | Encounter Summary ---
Author Organization [facility] Address [facility] [place] [address] Care Team Providers Care Shower Maid Name Role Phone Kaylee Jaquez Primary Care Provider Reason for Visit * Reason Onset Date Comments Medication Refill 09/04/2022 Encounter Details Date Type Department Care Team (Late st Contact Info) Description 09/04/2022 Refill [place] [address] Nimesh Alicia MD [facility] [place] [address] Gastroparesis Social History Tobacco Use Types Packs/Day [...] Gastroparesis documented in this encounter Care Teams Shower Maid Relationship Specialty Start Date End Date Kaylee Jaquez PA [address] [facility] [place], [place] [address] PCP - General Family Medicine 01/18/22 documented as of this encounter
--- OUTSIDE RECORDS SUMMARY | 2024-05-21 20:16 | XMS_ITS | Encounter Summary ---
Author Organization [facility] [place] [address] Care Team Providers Care Print Production Associate Name Role Phone Steven Jeffries MD Primary Care Provider Reason for Referral * Diagnostic Test (Routine) - Closed Specialty Diagnoses / Procedures Referred By Contmacie mendoza Referred To Contact Gastroenterology Diagnoses Other constipation Nausea SMARTPILL-Nausea Procedures SmartPill SMARTPILL-Nausea Nimesh Alicia MD [facility] [place] [address] [facility] [address] [place] [address] Referral ID Status Reason Start Date Expiration Date V isits Requested Visits Authorized [id number] Closed Consult, Test & Treat 08/01/2021 08/01/2022 1 1 Encounter Details Date Type Department Care Team (Late st Contact Info) Description 08/01/2021 Orders [place] [address] [facility] [place] [address] Other constipation; Nausea Social History Tobacco Use [...] alone documented in this encounter Care Teams Print Production Associate Relationship Specialty Start Date End Date Steven Jeffries MD [address] [place] [address] PCP - General General Internal Medicine 02/12/2101/17 documented as of this encounter
--- OUTSIDE RECORDS SUMMARY | 2024-05-21 20:16 | XMS_ITS | Encounter Summary ---
Author Organization [facility] Address [facility] [address] Care Team Providers Care Director Of Public Relations Name Role Phone Kaylee Jaquez Primary Care Provider Encounter Details Date Type Department Care Team (Late st Contact Info) Description 07/16/2022 10:00 AM EST Office [place] [address] Nimesh Alicia MD [facility] [place] [address] Gastroparesis; Constipation, unspecified constipation type Social History [...] 4.67) performed by Nimesh Alicia MD at [facility] ENDOSCOPY ??? PRO UPPER GI ENDOSCOPY, BIOPSY N/A 11/19/2018 EGD WITH BIOPSY (WRVU 2.49) performed by Nimesh Alicia MD at [facility] ENDOSCOPY ??? RECTOCELE REPAIR 2014 Dr. Boo @ [facility] ??? SHOULDER SURGERY Left 06/05/2017 L [...] CC JUAN PABLO Waterman [address] [place] [address] No referring provider defined for this encounter. documented in this encounter Plan of Treatment Not on file documented as of this encounter Visit Diagnoses Diagnosis Gastroparesis Constipation, unspecified constipation type documented in this encounter Care Teams Director Of Public Relations Relationship Specialty Start Date End Date Kaylee Jaquez PA [address] [place] [address] PCP - General Family Medicine 01/18/22 documented as of this encounter
--- OUTSIDE RECORDS SUMMARY | 2024-05-21 20:16 | XMS_ITS | Encounter Summary ---
[place] [address] Care Team Providers Care Professor Of Languages Name Role Phone Kaylee Jaquez Primary Care Provider [phone] Encounter Details Date Type Department Care Team (Latest Contact Info) Description 03/04/2022 2:20 PM EDT Ancillary Procedure XRay at [address] [address] Elvin Whiting MD [address] [place] [address] [place] [address] Primary osteoarthritis of right knee Social History [...] questions please contact the health home care assistant that requested your imaging first. ? Narrative 03/04/2022 3:09 PM EDT EXAMINATION: XR KNEE 3 VIEWS RIGHT CLINICAL HISTORY: right knee pain s/p tka TECHNIQUE: 3 views RIGHT knee COMPARISON: Knee radiographs dating back to 2015 FINDINGS: Right total knee arthroplasty is in [...] knee COMPARISON: Knee radiographs dating back to 2015 FINDINGS: Right total knee arthroplasty is in [...] have questions please contactthe health home care assistant that requested your imaging first. Elvin Whiting MD IMG DX ORDERABLES documented in this encounter Visit Diagnoses Diagnosis Primary osteoarthritis of right knee Primary localized osteoarthrosis, lower leg documented in this encounter Care Teams Professor Of Languages Relationship Specialty Start Date End Date Kaylee Jaquez PA [address] [place] [address] PCP - General Family Medicine 01/18/22 documented as of this encounter
--- OUTSIDE RECORDS SUMMARY | 2024-05-21 20:16 | XMS_ITS | Encounter Summary ---
Author Organization [facility] Address [facility] [place] [address] Care Team Providers Care Single Stroke Preformer Name Role Phone Kaylee Jaquez Primary Care Provider Reason for Visit * Reason Onset Date Comments Medication Refill 06/16/2022 Encounter Details Date Type Department Care Team (Late st Contact Info) Description 06/16/2022 Refill [place] [address] Nimesh Alicia MD [facility] [place] [address] Social History Tobacco Use Types Packs/Day Years [...] on filedocumented in this encounter Care Teams Single Stroke Preformer Relationship Specialty Start Date End Date Kaylee Jaquez PA [address] [facility], [place] [address] PCP - General Family Medicine 01/18/22 documented as of this encounter
--- OUTSIDE RECORDS SUMMARY | 2024-05-21 20:16 | XMS_ITS | Encounter Summary ---
Author Organization [facility] [place] [address] Care Team Providers Care Fisheries Diver Name Role Phone Kaylee Jaquez Primary Care Provider Reason for Visit * Reason Onset Date Comments Medication Refill 07/23/2022 Encounter Details Date Type Department Care Team (Late st Contact Info) Description 07/23/2022 Refill [place] [address] Marta Rivera MD [facility] [place] [address] Social History Tobacco Use Types Packs/Day Years [...] on filedocumented in this encounter Care Teams Fisheries Diver Relationship Specialty Start Date End Date Kaylee Jaquez PA [address] [facility], [place] [address] PCP - General Family Medicine 01/18/22 documented as of this encounter
--- OUTSIDE RECORDS SUMMARY | 2024-05-21 20:16 | XMS_ITS | Encounter Summary ---
Author Organization [facility] Address [facility] [place] [address] Care Team Providers Care Television Maintenance Man Name Role Phone Steven Jeffries MD Primary Care Provider [phone] Reason for Visit * Reason Comments Medication Refill Encounter Details Date Type Department Care Team (Late st Contact Info) Description 04/11/2021 [place] [address] Marta Rivera MD [facility] [place] [address] Type 2 diabetes, controlled, with neuropathy Social [...] uncontrolled documented in this encounter Care Teams Television Maintenance Man Relationship Specialty Start Date End Date Steven Jeffries MD [address] [place] [address] PCP - General General Internal Medicine 02/12/2101/17 documented as of this encounter
--- OUTSIDE RECORDS SUMMARY | 2024-05-21 20:16 | XMS_ITS | Encounter Summary ---
[place] [address] Care Team Providers Care Brass Cutter Name Role Phone Kaylee Jaquez Primary Care Provider Reason for Visit * Reason Onset Date Comments Medication Refill 02/04/2022 Encounter Details Date Type Department Care Team (Late st Contact Info) Description 02/04/2022 Ref[place] [address] Reid Mondragon, RN Social History Tobacco Use [...] filedocumented in this encounter Care Teams Brass Cutter Relationship Specialty Start Date End Date Kaylee Jaquez PA [address] [place] [address] PCP - General Family Medicine 01/18/22 documented as of this encounter
--- OUTSIDE RECORDS SUMMARY | 2024-05-21 20:16 | XMS_ITS | Encounter Summary ---
Author Organization [facility] Address [facility] [place] [address] Care Team Providers Care Second Facing Baster Name Role Phone Steven Jeffries MD Primary Care Provider [phone] Reason for Visit * Reason Comments Medication Refill Encounter Details Date Type Department Care Team (Late st Contact Info) Description 05/29/2021 Refill [place] [address] Marta Rivera MD [facility] [place] [place] [address] Type 2 diabetes, controlled, with neuropathy Social [...] uncontrolled documented in this encounter Care Teams Second Facing Baster Relationship Specialty Start Date End Date Steven Jeffries MD [address] [place] [address] PCP - General General Internal Medicine 02/12/2101/17 documented as of this encounter
--- OUTSIDE RECORDS SUMMARY | 2024-05-21 20:16 | XMS_ITS | Encounter Summary ---
[place] [address] Care Team Providers Care Is Analyst Name Role Phone Steven Jeffries MD Primary Care Provider Reason for Referral * Consultation (Routine) - Closed Specialty Diagnoses / Procedures Referred By Jasson t Referred To Contact Pain and Spine Center Diagnoses Intervertebral disc disease Degenerative disc disease, lumbar Radiculopathy of lumbar region Spine - Lumbar disc protrusion w/ nerve impingement/ tried PT/ MRI 11/23/21 @ [facility] *AMP or KJM Kaylee Jaquez PA [address] [place] [address] [facility] [place] [address] Referral ID Status Reason Start Date Expiration Date V isits Requested Visits Authorized [id number] Closed Evaluate and Treat PCP Updated and/or Approved 11/28/2021 11/28/2022 6 6 Encounter Details Date Type Department Care Team (Latest Contact Info) Description 11/28/2021 Transcribe Orders eDH Incoming Referrals [phone] Kaylee Jaquez PA [address] [place], [place] [id number] Intervertebral disc disease; Degenerative disc disease, lumbar; [...] unspecified documented in this encounter Care Teams Is Analyst Relationship Specialty Start Date End Date Steven Jeffries MD [address] [place] [address] PCP - General General Internal Medicine 02/12/2101/17 documented as of this encounter
--- OUTSIDE RECORDS SUMMARY | 2024-05-21 20:16 | XMS_ITS | Encounter Summary ---
[place] [address] Care Team Providers Care Pig Machine Operator Name Role Phone Kaylee Jaquez Primary Care Provider [phone] Encounter Details Date Type Department Care Team (Late st Contact Info) Description 03/06/2022 Tele[place] [address] Bonnie Rubio Social History Tobacco Use Types [...] calls can be handled by: [facility] documented in this encounter Plan of Treatment Not on file documented as of this encounter Visit Diagnoses Not on filedocumented in this encounter Care Teams Pig Machine Operator Relationship Specialty Start Date End Date Kaylee Jaquez PA [address] [place] [address] PCP - General Family Medicine 01/18/22 documented as of this encounter
--- OUTSIDE RECORDS SUMMARY | 2024-05-21 20:16 | XMS_ITS | Encounter Summary ---
Author Organization [facility] Address [facility] [place] [address] Care Team Providers Care Special Needs Librarian Name Role Phone Steven Jeffries MD Primary Care Provider + [phone] Reason for Visit * Reason Onset Date Comments Medication Refill 07/02/2021 Encounter Details Date Type Department Care Team (Late st Contact Info) Description 07/02/2021 [place] [address] Nimesh Alicia MD [facility] [place] [address] Social History Tobacco Use Types Packs/Day Years [...] on filedocumented in this encounter Care Teams Special Needs Librarian Relationship Specialty Start Date End Date Steven Jeffries MD [address] [place], [place] [address] PCP - General General Internal Medicine 10/4/21 9/8 /22 documented as of this encounter
--- OUTSIDE RECORDS SUMMARY | 2024-05-21 20:16 | XMS_ITS | Encounter Summary ---
Author Organization [facility] Address [facility] [place] [address] Care Team Providers Care Client Program Manager Name Role Phone Steven Jeffries MD Primary Care Provider [phone] Reason for Visit * Reason Comments Medication Refill Encounter Details Date Type Department Care Team (Late st Contact Info) Description 05/31/2021 Ref[place] [address] Nimesh Alicia MD [facility] [place] [address] Social History Tobacco Use Types Packs/Day Years [...] on filedocumented in this encounter Care Teams Client Program Manager Relationship Specialty Start Date End Date Steven Jeffries MD [address] [place] [address] PCP - General General Internal Medicine 02/12/2101/17 documented as of this encounter
--- OUTSIDE RECORDS SUMMARY | 2024-05-21 20:16 | XMS_ITS | Encounter Summary ---
Author Organization [facility] [place] [address] Care Team Providers Care Event Coordinator Marketing And Sales Name Role Phone Steven Jeffries MD Primary Care Provider [phone] Encounter Details Date Type Department Care Team (Late st Contact Info) Description 01/02/2022 Ancillary Procedure Radiology Library at [facility] [place] [address] Sirisha Tolliver APRN [facility] [place] [address] Social History Tobacco Use Types Packs/Day Years [...] MR Spine (01/02/2022 12:00 AM EDT) Narrative RAD - 01/22/2022 8:06 PM EDT This exam is auto-finalizing. It's purpose is for storage only. Sirisha Tolliver APRN IMG FILM LIBRARY OR DERABLES [place], [place] documented in this encounter Visit Diagnoses Not on filedocumented in this encounter Care Teams Event Coordinator Marketing And Sales Relationship Specialty Start Date End Date Steven Jeffries MD [address] [place] [address] PCP - General General Internal Medicine 02/12/2101/17 documented as of this encounter
--- OUTSIDE RECORDS SUMMARY | 2024-05-21 20:16 | XMS_ITS | Encounter Summary ---
[place] [address] Care Team Providers Care Astronaut Mission Specialist Name Role Phone Kaylee Jaquez Primary [...] on filedocumented in this encounter Care Teams Astronaut Mission Specialist Relationship Specialty Start Date End Date Kaylee Jaquez PA [address] [place] [address] PCP - General Family Medicine 01/18/22 documented as of this encounter
--- OUTSIDE RECORDS SUMMARY | 2024-05-21 20:16 | XMS_ITS | Encounter Summary ---
Author Organization [facility] Address [facility] [place] [address] Care Team Providers Care Medical Delivery Driver Name Role Phone Steven Jeffries MD Primary Care Provider [phone] Reason for Visit * Reason Comments Medication Refill Encounter Details Date Type Department Care Team (Late st Contact Info) Description 07/02/2021 Refill [place] [address] Nimesh Alicia MD [facility] DR [place]STRO[place] [address] Social History Tobacco Use Types Packs/Day Years [...] on filedocumented in this encounter Care Teams Medical Delivery Driver Relationship Specialty Start Date End Date Steven Jeffries MD [address] [place] [address] PCP - General General Internal Medicine 02/12/2101/17 documented as of this encounter
--- OUTSIDE RECORDS SUMMARY | 2024-05-21 20:16 | XMS_ITS | Encounter Summary ---
Author Organization [facility] [place] [address] Care Team Providers Care Resistor Tester Name Role Phone Kaylee Jaquez Primary Care Provider [phone] Reason for Visit * Reason Onset Date Comments Medication Refill 07/29/2022 Encounter Details Date Type Department Care Team (Late st Contact Info) Description 07/29/2022 [place] [address] Marta Rivera MD [facility] [place] [place] [address] Social History Tobacco Use Types Packs/Day Years [...] on filedocumented in this encounter Care Teams Resistor Tester Relationship Specialty Start Date End Date Kaylee Jaquez PA [address] [facility], [place] [address] PCP - General Family Medicine 01/18/22 documented as of this encounter
--- OUTSIDE RECORDS SUMMARY | 2024-05-21 20:16 | XMS_ITS | Encounter Summary ---
Author Organization [facility] [place] [address] Care Team Providers Care Trains Dispatcher Supervisor Name Role Phone Steven Jeffries MD Primary Care Provider [phone] Reason for Visit * Diagnostic Test (Routine) - Closed Specialty Diagnoses / Procedures Referred By Jasson mendoza Referred To Contact Gastroenterology Diagnoses Other constipation Nausea SMARTPILL-Nausea Procedures SmartPill SMARTPILL-Nausea Nimesh Alicia MD [facility] [place] [address] [facility] [place] [address] [place] [address] Referral ID Status Reason Start Date Expiration Date V isits Requested Visits Authorized [id number] Closed Consult, Test & Treat 08/01/2021 08/01/2022 1 1 Encounter Details Date Type Department Care Team (Latest Contact Info) Description 08/17/2021 10:00 AM EDT Procedure [place] [id number] Other constipation; Nausea Social History Tobacco Use [...] 10:00 AM EDT Re: Danielle Mills Reg No:[id number] : 1960 Date of Service: 08/30/21 WIRELESS MOTILITY pH CAPSULE INGESTION (SMARTPILL) Referring provider:Nimesh Alicia Dear: Dr. Alicia We had the pleasure of performing a wireless motility pH capsule study on your patient in the GI Motility Laboratory at [facility]. CLINICAL HISTORY AND INDICATION As you know, [...] colon transit. Normal whole gut transit. Signed: Adrine San MD, [facility] Section of Gastroenterology and Hepatology [place] [address] V: [phone] F: [phone] CC/EC: Steven Jeffries MD [address] [place] [address] documented in this encounter Plan of Treatment Not on file documented as of this encounter Visit Diagnoses Diagnosis Other constipation Nausea Nausea alone documented in this encounter Care Teams Trains Dispatcher Supervisor Relationship Specialty Start Date End Date Steven Jeffries MD [address] [place] [address] PCP - General General Internal Medicine 02/12/2101/17 documented as of this encounter
--- OUTSIDE RECORDS SUMMARY | 2024-05-21 20:16 | XMS_ITS | Encounter Summary ---
Author Organization [facility] Address [facility] [place] [address] Care Team Providers Care Corner Block Cutter Name Role Phone Kaylee aJquez Primary Care Provider [phone] Reason for Visit * Reason Onset Date Comments Medication Refill 06/17/2022 Encounter Details Date Type Department Care Team (Late st Contact Info) Description 06/17/2022 [place] [address] Nimesh Alicia MD [facility] [place] [address] Social History Tobacco Use Types Packs/Day Years [...] on filedocumented in this encounter Care Teams Corner Block Cutter Relationship Specialty Start Date End Date Kaylee Jaquez PA [address] [facility], [place] [address] PCP - General Family Medicine 01/18/22 documented as of this encounter
--- OUTSIDE RECORDS SUMMARY | 2024-05-21 20:17 | XMS_ITS | Encounter Summary ---
[place] [address] Care Team Providers Care Electrical Controls Assembler Name Role Phone Francy Lowe APRN Primary Care Provider + Reason for Visit * Reason Onset Date Comments Appointment 11/30/2020 Encounter Details Date Type Department Care Team (Late st Contact Info) Description 11/30/2020 Telephone [place] [address] Felicita Costa I Appointment Social History Tobacco [...] on filedocumented in this encounter Care Teams Electrical Controls Assembler Relationship Specialty Start Date End Date Francy Lowe APRN PCP - General Family Medicine 10/19/19 02/11/21 documented as of this encounter
--- OUTSIDE RECORDS SUMMARY | 2024-05-21 20:17 | XMS_ITS | Encounter Summary ---
[place] [address] Care Team Providers Care Rail Signal Worker Name Role Phone Francy Lowe APRN Primary Care Provider + Encounter Details Date Type Department Care Team (Late st Contact Info) Description 11/23/2020 Telephone [place] [address] Tanya Mccullough Social History Tobacco Use Types [...] on filedocumented in this encounter Care Teams Rail Signal Worker Relationship Specialty Start Date End Date Francy Lowe APRN PCP - General Family Medicine 10/19/19 02/11/21 documented as of this encounter
--- OUTSIDE RECORDS SUMMARY | 2024-05-21 20:17 | XMS_ITS | Encounter Summary ---
Author Organization [facility] Address [facility] [place] [address] Care Team Providers Care Staff Readiness Officer Name Role Phone Francy Lowe APRN Primary Care Provider + Encounter Details Date Type Department Care Team (Late st Contact Info) Description 08/29/2020 8:30 AM EDT Office Visit [place] [address] Nimesh Alicia MD [facility] [place] [address] Constipation, unspecified constipation type Social History Tobacco [...] 2.49) performed by Nimesh Alicia MD at [facility] END[facility]COPY ??? RECTOCELE REPAIR 2014 Dr. Boo @ [facility] ??? SHOULDER SURGERY Left 06/05/2017 L [...] Nimesh Alicia MD CC Francy Lowe APRN [address] [address] No referring provider defined for this encounter. documented in this encounter Plan of Treatment Scheduled Orders Name Type Priority Associated Diagnoses Orde r Schedule ENDOSCOPY CASE REQUEST: COLONOSCOPY, DIAGNOSTIC Procedures Routine Constipation, unspecified constipation type Ordered: 08/29/2020 documented as of this encounter Visit Diagnoses Diagnosis Constipation, unspecified constipation type documented in this encounter Care Teams Staff Readiness Officer Relationship Specialty Start Date End Date Francy Lowe APRN PCP - General Family Medicine 10/19/19 02/11/21 documented as of this encounter
--- OUTSIDE RECORDS SUMMARY | 2024-05-21 20:17 | XMS_ITS | Encounter Summary ---
[place] [address] Care Team Providers Care Morning Caregiver Name Role Phone Francy Lowe APRN Primary Care Provider + Encounter Details Date Type Department Care Team (Late st Contact Info) Description 03/08/2020 Telephone [place] [address] Sergio Jasmine Social History Tobacco Use Types [...] on filedocumented in this encounter Care Teams Morning Caregiver Relationship Specialty Start Date End Date Francy Lowe APRN PCP - General Family Medicine 10/19/19 02/11/21 documented as of this encounter
--- OUTSIDE RECORDS SUMMARY | 2024-05-21 20:17 | XMS_ITS | Encounter Summary ---
[place] [address] Care Team Providers Care Manual Control Auger Press Operator Name Role Phone Francy Lowe APRN Primary Care Provider + Reason for Visit * Reason Onset Date Comments Medication Refill 12/25/2020 Encounter Details Date Type Department Care Team (Late st Contact Info) Description 12/25/2020 Refill [place] [address] Nimesh Alicia MD [facility] [place] [address] Social History Tobacco Use Types Packs/Day Years [...] on filedocumented in this encounter Care Teams Manual Control Auger Press Operator Relationship Specialty Start Date End Date Francy Lowe APRN PCP - General Family Medicine 10/19/19 02/11/21 documented as of this encounter
--- OUTSIDE RECORDS SUMMARY | 2024-05-21 20:17 | XMS_ITS | Encounter Summary ---
Author Organization [facility] Address [facility] [place] [address] Care Team Providers Care Slip Laster Name Role Phone Francy Lowe APRN Primary Care Provider + Reason for Visit * Reason Comments Medication Refill Encounter Details Date Type Department Care Team (Late st Contact Info) Description 01/06/2021 Refill [place] [address] Marta Rivera MD [facility] [place] [address] Type 2 diabetes, controlled, with neuropathy Social [...] uncontrolled documented in this encounter Care Teams Slip Laster Relationship Specialty Start Date End Date Francy Lowe APRN PCP - General Family Medicine 6/9/20 10/3/21 documented as of this encounter
--- OUTSIDE RECORDS SUMMARY | 2024-05-21 20:17 | XMS_ITS | Encounter Summary ---
Author Organization [facility] Address [facility] [place] [address] Care Team Providers Care Drier Belt Conveyor Name Role Phone Francy Lowe APRN Primary Care Provider + Reason for Visit * Reason Comments Medication Refill Encounter Details Date Type Department Care Team (Late st Contact Info) Description 09/30/2020 [place] [address] Marta Rivera MD [facility] [place] [address] Social History Tobacco Use Types Packs/Day Years [...] on filedocumented in this encounter Care Teams Drier Belt Conveyor Relationship Specialty Start Date End Date Francy Lowe APRN PCP - General Family Medicine 10/19/19 02/11/21 documented as of this encounter
--- OUTSIDE RECORDS SUMMARY | 2024-05-21 20:17 | XMS_ITS | Encounter Summary ---
Author Organization [facility] [place] [address] Care Team Providers Care Contract Specialist Name Role Phone Francy Lowe APRN Primary Care Provider + Reason for Visit * Reason Onset Date Comments Medication Refill 12/25/2020 Encounter Details Date Type Department Care Team (Late st Contact Info) Description 12/25/2020 Ref[place] [address] Marta Rivera MD [facility] [place] [address] Social History Tobacco Use Types Packs/Day Years [...] on filedocumented in this encounter Care Teams Contract Specialist Relationship Specialty Start Date End Date Francy Lowe APRN PCP - General Family Medicine 10/19/19 02/11/21 documented as of this encounter
--- OUTSIDE RECORDS SUMMARY | 2024-05-21 20:17 | XMS_ITS | Encounter Summary ---
Author Organization [facility] [place] [address] Care Team Providers Care Aircraft Design Engineer Name Role Phone Francy Lowe APRN Primary Care Provider + Encounter Details Date Type Department Care Team (Late st Contact Info) Description 12/22/2020 Orders [place] [address] Nimesh Alicia MD [facility] [place]STROENTER[place] [address] Constipation, unspecified constipation type Social History Tobacco [...] type documented in this encounter Care Teams Aircraft Design Engineer Relationship Specialty Start Date End Date Francy Lowe APRN PCP - General Family Medicine 10/19/19 02/11/21 documented as of this encounter
--- OUTSIDE RECORDS SUMMARY | 2024-05-21 20:17 | XMS_ITS | Encounter Summary ---
[place] [address] Care Team Providers Care Concrete Boom Operator Name Role Phone Francy Lowe APRN Primary Care Provider + Reason for Referral * Consultation (Routine) - Specialty Diagnoses / Procedures Referred By Jasson mendoza Referred To Contact Cardiac Rehabilitation Diagnoses Non-ST elevation myocardial infarction (NSTEMI) Rell Gutierrez MD [address] [place] [address] Cardiac Rehab, [address] [place] [address] Referral ID Status Reason Start Date Expiration Date V isits Requested Visits Authorized [id number] Consult, Test & Treat 02/09/2020 08/07/2020 36 36 Reason for Visit * Auth/Cert Specialty Diagnoses / Procedures Referred By Jasson mendoza Referred To Contact Diagnoses NSTEMI (non-ST elevated myocardial infarction) nstemi Referral ID Status Reason Start Date Expiration Date Visits Re quested Visits Authorized [id number] 1 1 Encounter Details Date Type Department Care Team (Latest Contact Info) Description 02/07/2020 6:06 AM EDT - 02/09/2020 12:30 PM EDT Hospital [place] [id number] Rell Gutierrez MD Non-ST elevation myocardial infarction (NSTEMI) Discharge Disposition: [...] Danielle Mills Patient Age: 59 y.o. Language: Armenian Race: White Ethnicity: Not nor Admit date: [...] DM, dyslipidemia, hypothyroidism, obesity/BEN was transferred from [facility] for NSTEMI. ?? Pt reports [...] 300mg @2:21am. Consulted with Cards fellow at [facility] and decided to transfer. Hospital Course: #NSTEMI s/p PCI with JEANETH to LAD, LPA and LPL1 Admitted to the cardiology service. The patient was taken to the operations label clerk and noted to have 3 vessel disease. [...] priority for the procedure was Emergent. The [facility] indication for the procedure was [...] appointments: During 8am-5pm Friday through Friday call [phone] to speak with a nurse in the cardiology clinic All other times call [phone] and ask to speak to the supervisor cutting and boning semiconductor testing group leader. Follow up Appointments: ?? Francy Lowe PCP on Friday02/21/20 @ 2:30pm Dr. Carlos Jenkins ([facility] Cardiology) on 03/02/20 @ 2:45pm Future Appointments Date Time Provider Department Center 03/07/2020 10:00 AM Marta Rivera MD [facility] ENDO [facility] PCP: Francy Lowe APRN at [phone] Your Inpatient Doctor(s) at [facility]: Rell Gutierrez MD - Attending physician Your Primary Care Provider: Francy Lowe APRN [address] / [place] [address] For questions regarding issues relating to your hospitalization on the Hospital Medicine Service, please contact your inpatient physician through the [facility] [employer] [phone]. Issues after hours and on weekends will be handled by the Hospitalist staff on-call. General Instructions None Future Appointments and Orders Future Appointments and Orders Future Appointments Provider Department Dept Phone 03/07/2020 10:00 AM Marta Rivera MD Endocrinology at [facility] Arrive at: Home [phone] Please do not come in for this visit. Your provider will call you at the number you provided. Future Orders Complete By Expires Referral to Cardiac Rehab [[id number] Custom] As directed Process Instructions: If no progress note charted, please enter Clinical details in comments. Scheduling Instructions: Questions: My question or request is: NSTEMI, PCI- CR at [facility] Discharge References/Attachments None documented in this [...] appointments: During 8am-5pm Friday through Friday call [phone] to speak with a nurse in the cardiology clinic All other times call [phone] and ask to speak to the supervisor cutting and boning semiconductor testing group leader. Follow up Appointments: ?? COCO Staley on Friday02/21/20 @ 2:30pm Dr. Carlos Jenkins ([facility] Cardiology) on 03/02/20 @ 2:45pm Future Appointments Date Time Provider Department Center 03/07/2020 10:00 AM Marta Rivera MD [facility] ENDO [facility] PCP: Francy Lowe APRN at [phone] Your Inpatient Doctor(s) at [facility]: Rell Gutierrez MD - Attending physician Your Primary Care Provider: Francy Lowe APRN [address] / [place] [address] For questions regarding issues relating to your hospitalization on the Hospital Medicine Service, please contact your inpatient physician through the [facility] [employer] [phone]. Issues after hours and on weekends will [...] or concerns at this time. CM updated APPRENTICE STYLIST and completed consult that was placed for social work re: financial concerns. Clarisa Rees RN, MSN Incident Coordinator - Cardiology Office of Care Management Pager: [phone] Work * Rell Gutierrez MD - 02/09/2020 7:26 AM EDT Inpatient Cardiology Progress Note Patient Name: Danielle Mills Date of Admission: 02/07/2020 ( Hospital Day 2 days ) Service: S2 ID: Danielle Mills 59 y/o F with HTN, DM, dyslipidemia, hypothyroidism, obesity/BEN was transferred from [facility] for NSTEMI. Cardiac cath this AM [...] below. Electronically signed by: Varghese Richmond MD, [facility] ([phone]), at 02/07/2020 9:53 AM Cardiac Catheterization Final [...] DM, dyslipidemia, hypothyroidism, obesity/BEN was transferred from [facility] for NSTEMI. S/p high risk [...] home Maria Bolaños MD PGY1 Cardiology S2 #[id number] CARDIOLOGY ATTENDING NOTE Patient: Danielle Mills Date [...] anterior ST-T wave changes. Went urgently to operations label clerk due to ongoing pain on 02/06 - 3VD including CUFF TURNER RCA; IABP placed due to ongoing pain. [...] Rell Gutierrez MD, MPH, RPVI, FACC Pager [phone] Cardiovascular Typewriter [place] [address] * Rell Gutierrez MD - 02/08/2020 7:04 AM EDT Inpatient Cardiology Progress Note Patient Name: Danielle Mills Date of Admission: 02/07/2020 ( Hospital Day 1 day ) Service: S2 ID: Danielle Mills 59 y/o F with HTN, DM, dyslipidemia, hypothyroidism, obesity/BEN was transferred from [facility] for NSTEMI. Cardiac cath this AM [...] 02/08/2020 0932 Gross per 24 hour Intake 1992 ml Output 4325 ml Net -2332 ml [...] responsive without focal deficit Labs Recent Labs 02/08/20 04002/07/20 0729 WBC 7.9 7.8 HGB 13.5 13.7 HCT 42.6 45.2 PLATELET 189 173 Recent Labs 02/08/20 04002/07/20205402/07/20 17102/07/20 0729 NA 138 -- -- 139 [...] INR 1.0 PT 11.8 Recent Labs 02/07/20170902/07/20 1055 02/07/20 0729 TROPONINT 0.27* 0.13* 0.10* [...] below. Electronically signed by: Varghese Richmond MD, [facility] ([phone]), at 02/07/2020 9:53 AM Cardiac Catheterization Final [...] DM, dyslipidemia, hypothyroidism, obesity/BEN was transferred from [facility] for NSTEMI. S/p high risk [...] floor Maria Bolaños MD PGY1 Cardiology S2 #4421 CARDIOLOGY ATTENDING NOTE Patient: Danielle Mills Date [...] anterior ST-T wave changes. Went urgently to operations label clerk due to ongoing pain on 02/06 - 3VD including CUFF TURNER RCA; IABP placed due to ongoing pain. [...] Dr. Bolaños. Rell Gutierrez MD, MPH, RPVI, [facility] Pager [phone] Cardiovascular Typewriter Repairer[place] [address] * JatinderashuCarmella - 02/07/2020 9:02 PM EDT Post-Catheterization Progress [...] Carmella Alexander MD, PGY-2 Cardiology S1/S2, Pager [phone] 02/07/2020 * Ney Sylvester MD - 02/07/2020 1:58 PM EDT Danielle Mills is a 59 y.o. female referred for cardiac catheterization by Dr. Gutierrez for evaluation of coronary arteries . 59 y/o F with HTN, DM, dyslipidemia, hypothyroidism, obesity/BEN was transferred from [facility] for NSTEMI. Cardiac cath this [...] DM, dyslipidemia, hypothyroidism, obesity/BEN was transferred from [facility] for NSTEMI. Cardiac cath this [...] 6:50 AM EDT 0630 Pt admitted for [facility] with c/o chest pain. Pt states [...] Lowe APRN Presenting Diagnosis/Chief Complaint: Transfer from [facility] with NSTEMI/[place]. Active Problem List: Active Hospital Problems Diagnosis ??? Non-ST elevation myocardial infarction (NSTEMI) Resolved Hospital Problems No resolved problems to display. History of Present Illness: 59 y/o F with HTN, DM, dyslipidemia, hypothyroidism, obesity/BEN was transferred from [facility] for NSTEMI. Pt reports 1 [...] 300mg @2:21am. Consulted with Cards fellow at [facility] and decided to transfer. Personal and social [...] 2.49) performed by Nimesh Alicia MD at [facility] ENDOSCOPY ??? RECTOCELE REPAIR 2014 Dr. Boo @ [facility] ??? SHOULDER SURGERY Left 06/05/2017 L [...] file Gets together: Not on file Attends confucianist service: Not on file Active member of [...] DM, dyslipidemia, hypothyroidism, obesity/BEN was transferred from [facility] for NSTEMI. TREATMENT PLAN: #[place]/NSTEMI [...] attempt. Thank you. Arnaud Teague, MSN, RN-, [facility] Tobacco Post Office Manager [facility] Pager #[phone] * Consult Note - Chelsey Belter RN - 02/09/2020 9:40 AM EDT Danielle [...] in an outpatient cardiac rehabilitation program at [facility] was discussed. Patient agrees to a referral to this program. The referral will be sent at discharge and the patient should be contacted by the Program within 1- 2 weeks from discharge. * Plan of Care - Maribel Babcock RN - 02/08/2020 6:02 PM EDT Problem: Patient Care Overview Goal: Plan of Care Review Outcome: Ongoing (Interventions Implemented as Appropriate) 02/08/20 0802/08/20 9427 Plan of Care Review Progress -- improving [...] Stated by Patient: chest pain/NSTEMI. Transferred from [facility] Last COVID test date and time: [...] spouse would be surrogate decision maker per [place] surrogate decision making law. (Only good for 90 days) Any patient receiving care at [facility] must abide by [place] law. The hierarchy for surrogate decision making [...] (i) The agent with financial power of research attorney or a conservator appointed in accordance [...] at DC: none Home Address Listed as: [address] [place] [address] Social & Family Supports: Extended Emergency Contact Information Primary Emergency Contact: Andrés Mills Address: [address] [place] [address] [facility] Mobile Relation: Spouse Community Resources [...] Secondary Insurance: N/A Prescription Coverage: Preferred Pharmacy: [id number] - [place] - [address] [place] [address] [id number] - [place], [place] - [address] [place] [address] [id number] - [place], [place] - [address] [facility] [address] Primary Care Provider: Francy Lowe APRN [phone] Patient/Caregiver Goals of Treatment: DC home Potential [...] service for NSTEMI as a transfer from [facility]. Plan: A member of the Care Management team will continue to monitor progress, follow for continuityof care and assist with transition of care planning. Clarisa Rees, RN, MSN, clinical dietician Office of Care Management Pager: [phone] Work * Brief Op Note - Todd Garcia MD - 02/07/2020 3:26 PM EDT Images from the original note were not included. Preliminary Cardiac Catheterization Procedure Note: Patient Name: Danielle Mills : [id number] MR#: [id number] Case Date: 02/07/2020 [employer]: Surgeon(s) and Role: * Todd Garcia MD - Primary Preoperative diagnosis: ?CAD Postoperative diagnosis: *ASCVD * Procedure(s) performed: Stent insertion, coronary Access: left BRACELET AND BROOCH MAKER--> Perclosed A time-out was conducted prior to [...] Procedure Note: Patient Name: Danielle Mills : [id number] MR#: [id number] Case Date: 02/07/2020 [employer]: Surgeon(s) and Role: * Todd Garcia MD - Primary * David Vigil MD - Fellow Preoperative diagnosis: ASCVD Postoperative diagnosis: * ASCVD * Procedure(s) performed: [facility] Coronary angio IABP insertion Access: right radial--> TR band, right BRACELET AND BROOCH MAKER--> IABP inserted A time-out was conducted prior [...] in the past at the ED at [facility] for epigastric pain that had been negative for acute findings. Thispresentation she was found to have a slight troponin elevation and slight ST elevation in V1-V6 with t wave inversions. Cath this am showed multivessel disease including LAD, Circ and RCA. She was still having some chest pain on low dose nitro. An IABP was placed in the operations label clerk and she is being transferred to [facility]. She received 600mg of plavix this morning. [...] SURGERY 2005 Anal fissure repair Procedure Date: 2004 ??? [...] 2.49) performed by Nimesh Alicia MD at [facility] ENDOSCOPY ??? RECTOCELE REPAIR 2014 Dr. Boo @ [facility] ??? SHOULDER SURGERY Left 06/05/2017 L [...] issues/chronic pain. 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 Family- lives with Andrés and his mother. Illicit drug use- denies Mormon- denies Family History: History reviewed. No pertinent [...] Mills. Signed: JUAN PABLO [facility] Section of Cardiac Surgery Date: 02/07/2020 59 yo female who presents with stuttering OR, on plavix, anterior WMA. CAth shows a very tight proximal LAD stenosis, distal LCX disease, non-dominant RCA which is occluded. The distal LCX circulation is not a good target for bypass surgery. The RCA is not a target. The LAD is a good target. We could end up surgery with only a NAIR to the LAD. Right now on plavix, with an acute OR, on an IABP, with BMI 43 and [...] further details. Vik Justin MD 02/07/2020 Pager [phone] documented in this encounter Plan of Treatment [...] 3 :34 AM EDT BASIC METABOLIC PANEL Timed 02/09/2020 3:34 AM EDT POCT GLUCOSE [...] 4 :01 AM EDT BASIC METABOLIC PANEL Timed 02/08/2020 4:01 AM EDT HC POTASSIUM [...] (ABNORMAL) POCT Glucose (02/09/2020 6:55 AM EDT) [facility] Glucose, POC 228(H) 65 - 199 mg/dL [facility] Comment: Supplemental ranges: <140 mg/dL before meals <180 mg/dL all other times of the day Blood specimen (specimen) 02/09/2020 6:55 AM EDT 02/09/2020 6:55 AM EDT Rell Gutierrez MD POINT OF CARE TEST O RDERABLES Performing Organization Address City/State/[facility] Co de Phone Number [facility] [place] [address] * Differential, Automated (02/09/2020 3:34 AM EDT) [facility] Neutrophil % 67.7 % [facility] Neutrophil Absolute 5.30 1.70 - 6.10 x10(3)/[facility] Lymph % 20.9 % [facility] Lymphocytes Abs 1.6 0.9 - 3.2 x10(3)/[facility] Monocyte % 9.2 % [facility] Monocyte Abs 0.7 0.3 - 0.9 x10(3)/[facility] Eos % 1.5 % [facility] Eosinophils Abs 0.1 0.0 - 0.4 x10(3)/[facility] Basophil % 0.4 % [facility] Baso Absolute 0.0 0.0 - 0.1 x10(3)/[facility] Immature Gran % 0.30 % [facility] Comment: Immature granulocytes(IG's)percentage and absolute count will include metamyelocytes, myelocytes, and promyelocytes. Blood smears from CBCs yielding IG's will be scanned manually for concordance. If this scan disagrees with the automated IG or if promyelocytes are noted, a manual differential will be performed. Immature Gran Absolute 0.02 0.00 - 0.04 x10(3)/[facility] Blood specimen (specimen) 02/09/2020 3:34 AM EDT 02/09/2020 3:42 AM EDT Narrative Resulting Agency Comment Spec In Lab Maria Bolaños MD HEMATOLOGY ORDERABLE S [facility] [place] [address] * (ABNORMAL) Hemogram (02/09/2020 3:34 AM EDT) White Blood Cell 7.8 4.0 - 9.5 x10(3)/ L [facility] Red Blood Cell 5.11 4.00 - 5.21 x10(6)/ L [facility] Hemoglobin 13.5 11.7 - 15.5 gm/dL [facility] Hematocrit 42.8 35.7 - 45.8 % [facility] Mean Cell Volume 83.8 82.6 - 94.4 fL [facility] Mean Cell Hemoglobin 26.4(L) 27.1 - 32.0 pg [facility] Mean Cell Hemoglobin Concentration 31.5(L) 31.7 - 35.0 gm/dL [facility] Platelet 168 145 - 357 x10(3)/ L [facility] RDW Standard Deviation 43.8 37.0 - 46.0 fL [facility] RDW coefficient of variation 14.3(H) 11.5 - 14.1 % [facility] Mean Platelet Volume 11.5 7.6 - 12.9 fL [facility] NRBC% auto 0.0 % [facility] NRBC Absolute 0.000 0.000 - 0.000 x10(3)/mc L [facility] Blood specimen (specimen) 02/09/2020 3:34 AM EDT 02/09/2020 3:42 AM EDT Narrative Resulting Agency Comment Spec In Lab Maria Bolaños MD HEMATOLOGY ORDERABLE S Performing Organization Address [facility]/ZIP Co de Phone Number [facility] [place] [address] * Phosphorus (02/09/2020 3:34 AM EDT) Phosphorus 2.8 2.5 - 4.5 mg/dL [facility] Blood specimen (specimen) 02/09/2020 3:34 AM EDT 02/09/2020 3:42 AM EDT Narrative Resulting Agency Comment Spec In Lab Rell Gutierrez MD CHEMISTRY ORDERABLES Performing Organization Address [facility]/ZIP Co de Phone Number [facility] [place] [address] * Magnesium (02/09/2020 3:34 AM EDT) Magnesium 0.93 0.69 - 1.07 mmol/L [facility] Blood specimen (specimen) 02/09/2020 3:34 AM EDT 02/09/2020 3:42 AM EDT Narrative Resulting Agency Comment Spec In Lab Rell Gutierrez MD CHEMISTRY ORDERABLES Performing Organization Address [facility]/ZIP Co de Phone Number [facility] [place] [address] * (ABNORMAL) Basic Metabolic Panel (non-fasting) (02/09/2020 3:34 AM EDT) Glucose 249(H) 65 - 199 mg/dL [facility] Comment:Diabetes: >=200 mg/d L plus symptoms Blood Urea Nitrogen 12 8 - 18 mg/dL [facility] Creatinine 0.78 0.70 - 1.20 mg/dL [facility] Sodium 138 135 - 145 mmol/L [facility] Potassium 3.8 3.5 - 5.0 mmol/L [facility] Comment: Please note: ??Patients with WBC >100,000 may have falsely elevated Potassium levels. ??For accurate Potassium quantification in these patients send serum separator tube (gold top) for subsequent determinations. ??Contact the Clinical Chemistry Laboratory if there are any questions. Chloride 100 98 - 107 mmol/L [facility] Carbon Dioxide 29 22 - 31 mmol/L [facility] Anion Gap 9 5 - 15 mmol/L [facility] Calcium 8.0(L) 8.5 - 10.5 mg/dL [facility] Est Glomerular Filtration Rate 84 >=60 mL/min/1. 73 m?? [facility] Comment: The eGFR was calculated using the CKD-EPI equation. As with all creatinine based estimates of kidney function, eGFR values calculated with the CKD-EPI equation are not accurate in patients with acute kidney failure, extremes of body mass or the acutely ill. http://[facility] eGFR 97 >=60 mL/min/1. 73 m?? [facility] Comment: The eGFR was calculated using the CKD-EPI equation. As with all creatinine based estimates of kidney function, eGFR values calculated with the CKD-EPI equation are not accurate in patients with acute kidney failure, extremes of body mass or the acutely ill. http://[facility] Blood specimen (specimen) 02/09/2020 3:34 AM EDT 02/09/2020 3:42 AM EDT Narrative Resulting Agency Comment Spec In Lab Rell Gutierrez MD CHEMISTRY ORDERABLES Performing Organization Address [facility]/ZIP Co de Phone Number [facility] [place] [address] * POCT Glucose (02/08/2020 8:56 PM EDT) Glucose, POC 145 65 - 199 mg/dL [facility] Comment: Supplemental ranges: <140 mg/dL before meals <180 mg/dL all other times of the day Blood specimen (specimen) 02/08/2020 8:56 PM EDT 02/08/2020 8:56 PM EDT Rell Gutierrez MD POINT OF CARE TEST O RDERABLES Performing Organization Address [facility] Co de Phone Number [facility] [place] [address] * POCT Glucose (02/08/2020 4:52 PM EDT) Glucose, POC 144 65 - 199 mg/dL [facility] Comment: Supplemental ranges: <140 mg/dL before meals <180 mg/dL all other times of the day Blood specimen (specimen) 02/08/2020 4:52 PM EDT 02/08/2020 4:52 PM EDT Rell Gutierrez MD POINT OF CARE TEST O RDERATRAY Performing Organization Address [facility]/ZIP Co de Phone Number [facility] [place] [address] * (ABNORMAL) POCT Glucose (02/08/2020 12:35 PM EDT) Glucose, POC 235(H) 65 - 199 mg/dL [facility] Comment: Supplemental ranges: <140 mg/dL before meals <180 mg/dL all other times of the day Blood specimen (specimen) 02/08/2020 12:35 PM EDT 02/08/2020 12:35 PM EDT Rell Gutierrez MD POINT OF CARE TEST O RDERABLES Performing Organization Address [facility] Co de Phone Number [facility] [place] [address] * (ABNORMAL) POCT Glucose (02/08/2020 9:38 AM EDT) Glucose, POC 296(H) 65 - 199 mg/dL [facility] Comment: Supplemental ranges: <140 mg/dL before meals <180 mg/dL all other times of the day Blood specimen (specimen) 02/08/2020 9:38 AM EDT 02/08/2020 9:38 AM EDT Rell Gutierrez MD POINT OF CARE TEST O RDERABLES Performing Organization Address [facility] Co de Phone Number [facility] [place] [address] * (ABNORMAL) POCT Glucose (02/08/2020 7:35 AM EDT) Glucose, POC 241(H) 65 - 199 mg/dL [facility] Comment: Supplemental ranges: <140 mg/dL before meals <180 mg/dL all other times of the day Blood specimen (specimen) 02/08/2020 7:35 AM EDT 02/08/2020 7:35 AM EDT Rell Gutierrez MD POINT OF CARE TEST O RDERABLES Performing Organization Address [facility] Co de Phone Number [facility] [place] [address] * Differential, Automated (02/08/2020 4:01 AM EDT) Neutrophil % 68.7 % [facility] Neutrophil Absolute 5.45 1.70 - 6.10 x10(3)/[facility] Lymph % 21.1 % [facility] Lymphocytes Abs 1.7 0.9 - 3.2 x10(3)/[facility] Monocyte % 8.6 % [facility] Monocyte Abs 0.7 0.3 - 0.9 x10(3)/[facility] Eos % 0.8 % [facility] Eosinophils Abs 0.1 0.0 - 0.4 x10(3)/[facility] Basophil % 0.4 % [facility] Baso Absolute 0.0 0.0 - 0.1 x10(3)/[facility] Immature Gran % 0.40 % [facility] Comment: Immature granulocytes(IG's)percentage and absolute count will include metamyelocytes, myelocytes, and promyelocytes. Blood smears from CBCs yielding IG's will be scanned manually for concordance. If this scan disagrees with the automated IG or if promyelocytes are noted, a manual differential will be performed. Immature Gran Absolute 0.03 0.00 - 0.04 x10(3)/[facility] Blood specimen (specimen) 02/08/2020 4:01 AM EDT 02/08/2020 4:06 AM EDT Narrative Resulting Agency Comment Spec In Lab Kayleigh Crook MD HEMATOLOGY ORDERABLE S [facility] [place] [address] * (ABNORMAL) Hemogram (02/08/2020 4:01 AM EDT) White Blood Cell 7.9 4.0 - 9.5 x10(3)/mc L [facility] Red Blood Cell 5.11 4.00 - 5.21 x10(6)/mc L [facility] Hemoglobin 13.5 11.7 - 15.5 gm/dL [facility] Hematocrit 42.6 35.7 - 45.8 % [facility] Mean Cell Volume 83.4 82.6 - 94.4 fL [facility] Mean Cell Hemoglobin 26.4(L) 27.1 - 32.0 pg [facility] Mean Cell Hemoglobin Concentration 31.7 31.7 - 35.0 gm/dL [facility] Platelet 189 145 - 357 x10(3)/mc L [facility] RDW Standard Deviation 43.5 37.0 - 46.0 fL [facility] RDW coefficient of variation 14.3(H) 11.5 - 14.1 % [facility] Mean Platelet Volume 11.2 7.6 - 12.9 fL [facility] NRBC% auto 0.0 % [facility] NRBC Absolute 0.000 0.000 - 0.000 x10(3)/mc L [facility] Blood specimen (specimen) 02/08/2020 4:01 AM EDT 02/08/2020 4:06 AM EDT Narrative Resulting Agency Comment Spec In Lab Kayleigh Crook MD HEMATOLOGY ORDERABLE S [facility] [place] [address] * (ABNORMAL) Phosphorus (02/08/2020 4:01 AM EDT) Phosphorus 1.9(L) 2.5 - 4.5 mg/dL [facility] Blood specimen (specimen) 02/08/2020 4:01 AM EDT 02/08/2020 4:06 AM EDT Narrative Resulting Agency Comment Spec In Lab Rell Gutierrez MD CHEMISTRY ORDERABLES [facility] [place] [place] [address] * Magnesium (02/08/2020 4:01 AM EDT) Magnesium 0.91 0.69 - 1.07 mmol/L [facility] Blood specimen (specimen) 02/08/2020 4:01 AM EDT 02/08/2020 4:06 AM EDT Narrative Resulting Agency Comment Spec In Lab Rell Gutierrez MD CHEMISTRY ORDERABLES [facility] [place] [place] [address] * (ABNORMAL) Basic Metabolic Panel (non-fasting) (02/08/2020 4:01 AM EDT) Glucose 247(H) 65 - 199 mg/dL [facility] Comment:Diabetes: >=200 mg/d L plus symptoms Blood Urea Nitrogen 8 8 - 18 mg/dL [facility] Creatinine 0.66(L) 0.70 - 1.20 mg/dL [facility] Sodium 138 135 - 145 mmol/L [facility] Potassium 4.4 3.5 - 5.0 mmol/L [facility] Comment: Please note: ??Patients with WBC >100,000 may have falsely elevated Potassium levels. ??For accurate Potassium quantification in these patients send serum separator tube (gold top) for subsequent determinations. ??Contact the Clinical Chemistry Laboratory if there are any questions. Chloride 102 98 - 107 mmol/L [facility] Carbon Dioxide 27 22 - 31 mmol/L [facility] Anion Gap 9 5 - 15 mmol/L [facility] Calcium 7.9(L) 8.5 - 10.5 mg/dL [facility] Est Glomerular Filtration Rate 97 >=60 mL/min/1. 73 m?? [facility] Comment: The eGFR was calculated using the CKD-EPI equation. As with all creatinine based estimates of kidney function, eGFR values calculated with the CKD-EPI equation are not accurate in patients with acute kidney failure, extremes of body mass or the acutely ill. http://INMAN/DHnkf eGFR 113 >=60 mL/min/1. 73 m?? [facility] Comment: The eGFR was calculated using the CKD-EPI equation. As with all creatinine based estimates of kidney function, eGFR values calculated with the CKD-EPI equation are not accurate in patients with acute kidney failure, extremes of body mass or the acutely ill. [email or web address] [email or web address] Blood specimen (specimen) 02/08/2020 4:01 AM EDT 02/08/2020 4:06 AM EDT Narrative Resulting Agency Comment Spec In Lab Rell Gutierrez MD CHEMISTRY ORDERABLES Performing Organization Address [facility] Co de Phone Number [facility] [place] [place] [address] * Potassium (02/07/2020 8:55 PM EDT) Potassium 3.7 3.5 - 5.0 mmol/L [facility] Comment: Please note: ??Patients with [...] Gutierrez MD CHEMISTRY ORDERABLES Performing Organization Address [facility] de Phone Number [facility] [place] [place] [address] * POCT Glucose (02/07/2020 8:48 PM EDT) Glucose, POC 183 65 - 199 mg/dL [facility] Comment: Supplemental ranges: <140 mg/dL before meals <180 mg/dL all other times of the day Blood specimen (specimen) 02/07/2020 8:48 PM EDT 02/07/2020 8:48 PM EDT Rell Gutierrez MD POINT OF CARE TEST O RDERABLES Performing Organization Address [facility]/ZIP Co de Phone Number [facility] [place] [place] [address] * Potassium (02/07/2020 5:10 PM EDT) Potassium 4.0 3.5 - 5.0 mmol/L [facility] Comment: Please note: ??Patients with [...] In Lab Rell Gutierrez MD CHEMISTRY ORDERABLES [facility] [place] [place] [address] * (ABNORMAL) Troponin (02/07/2020 5:10 PM EDT) Troponin-T 0.27(H) 0.00 - 0.00 ng/mL [facility] Comment: The 99th percentile for Troponin T is less than 0.01 ng/mL, any detectable cTnT concentration using this assay should be considered elevated. According to the third universal definition of myocardial infarction the following criteria with a clinical presentation consistent with acute myocardial ischemia meets the diagnosis for a myocardial infarction (OR). Detection of a rise and/or fall of cTnT, with at least one value greater than the 99th percentile (> or = 0.01) and with at least one of the following ?? Symptoms of ischemia ?? New or presumed new significant KF-cjkacou-M wave (ST-T) changes or new left bundle [...] additional sample may be indicated. Reference: Third Hood Definition of Myocardial Infarction. Journal of the [place] [employer] 2012;60:1581-98 Blood specimen (specimen) 02/07/2020 5:10 PM EDT 02/07/2020 5:28 PM EDT Narrative Resulting Agency Comment Spec In Lab Vik Justin MD CHEMISTRY ORDER TOBI KERON [facility] [place] [address] * XR Chest One View (02/07/2020 5:07 [...] * POCT Glucose (02/07/2020 4:21 PM EDT) [facility] Glucose, POC 139 65 - 199 mg/dL [facility] Comment: Supplemental ranges: <140 mg/dL before meals <180 mg/dL all other times of the day Blood specimen (specimen) 02/07/2020 4:21 PM EDT 02/07/2020 4:21 PM EDT Rell Gutierrez MD POINT OF CARE TEST O RDERABLES Performing Organization Address City/State/[facility] Co de Phone Number [facility] [place] [address] * CARDIAC CATHETERIZATION (02/07/2020 3:21 PM EDT) Anatomical Region Laterality Modality Other Narrative 02/07/2020 4:29 PM EDT ?[facility] ? Cardiac Catheterization/Intervention Report ? Patient Name: Danielle Mills ? Procedure Date: 02/07/2020 ? A #: [id number] ? Primary Physician: Jose, Todd T ? Case #: [id number] ? File Name: [id number] ? Catheterization Order Number: [id number] ? [facility] [facility] ? Final Report [place], [place] ? Patient Name: ? Danielle Jarrett ? ID#: ?[id number] ? : ?1960 ? Procedure Date: ? February 07, 2020 ? Case #: ? [id number] ? Room: ? 6 ? Case Physician: [...] procedure was Urgent. The indication for ?the operations label clerk visit is worsening angina. Chest pain symptom [...] dose administered prior to arrival in the operations label clerk. ?Recommended anti-platelet/anti-thrombotic regimen: ?Start aspirin 81 mg daily now and continue for indefinitely. ?Start clopidogrel 75 mg daily now and continue for 12 months then stop. ?These recommendations are made at the time of the intervention. Patient ?and provider preferences or a changing clinical situation may require ?modification of this regimen. Consult [facility] Interventional Cardiology for ?questions. ?The 1 year [...] against any medical treatment. Consult ?http://tools.acc.org/DAPTriskapp/#!/content/calculator/ or [facility] ?Interventional Cardiology for questions. ? Conclusions: ?* [...] Todd Garcia MD - 03/23/2020 [facility] Cardiac Catheterization/Intervention Report Patient Name: Danielle Mills Procedure Date: 02/07/2020 A #: [id number] Primary Physician: Todd Garcia Case #: [id number] File Name: [id number] Catheterization Order Number: [id number] [facility] FinalReport [place], [place] Patient Name: Danielle Mills ID#:[id number] :1960 Procedure Date: February 07, 2020 Case [...] designated as ASA Class III. The [facility] clinical frailty scale is5: Mildly Frail. Diagnostic Tests: Prior Coronary Angiography: LV ejection fraction within 6 months is 30%. Electrocardiography: EKG was assessed by ECG. EKG was Abnormal. EKG showed T-wave inversions and other abnormality. Medications Prior to Procedure: Aspirin, Beta Fernando and Statin. Indications for Diagnostic Cath: The priority of the diagnostic procedure was Urgent. The indicationfor the operations label clerk visit is worsening angina. Chest pain symptomassessment [...] The priority for the procedure was Emergent.The NCDR indication for the procedure was NSTE-ACS. [...] across thislesion. Vessel flow pre intervention was DNEIA 2. Lesion lengthwas 15mm. Stent insertion was [...] the lesion was dilated using a 3.00mm [id number] MM balloon with a maximum inflation pressure [...] dose administered prior to arrival in the operations label clerk. Recommended anti-platelet/anti-thrombotic regimen: Start aspirin 81 mg daily now and continue for indefinitely. Start clopidogrel 75 mg daily now and continue for 12 months thenstop. These recommendations are made at the time of the intervention.Patient and provider preferences or a changing clinical situation mayrequire modification of this regimen. Consult [facility] Interventional Cardiologyfor questions. The 1 year bleeding [...] or against any medical treatment.Consult http://tools.acc.org/DAPTriskapp/#!/content/calculator/ or [facility] Interventional Cardiology for questions. Conclusions: * Obstructive [...] the sedation nurse. Case time =01:21. Dr. oTdd Garcia M.D. performed the coronary angiography, stent insertion-coronary, access site angiography and vascular closuredevice. Todd Garcia M.D. Electronically Signed by: Todd Garcia M.D. Report Finalized: 02/07/2020 16:24 Report Last Ammended: 03/23/2020 13:04 Todd Garcia MD CARDIAC CATH ORDERAB LES * COVID-19 PCR (02/07/2020 12:30 PM EDT) SARS-CoV-2 RNA (Rapid) Not Detected Not Detected [facility] Comment: This result should be [...] using the Simplexa COVID-19 Direct Assay by Albireo as authorized by the FDA issued Emergency [...] Department of Pathology and Laboratory Medicine at [facility], certified under the Clinical Laboratory Improvement Amendments [...] Information for Healthcare Professionals (https://www.cdc.gov/coronavirus/2019-ncov/hcp/index.html). SARS-CoV-2 Source [employer] Swab JAYME NORIEGA [facility] Nasopharyngeal swab (specimen) 02/07/2020 12:30 PM EDT 02/07/2020 12:59 PM EDT Comment:Symptoms->Surveillan ce Narrative Resulting Agency Comment Spec In Lab Vik Justin MD MICROBIOLOGY - GENERAL ORDERABLES [facility] [place] [place] [address] * POCT Glucose (02/07/2020 10:58 AM EDT) Glucose, POC 115 65 - 199 mg/dL [facility] Comment: Supplemental ranges: <140 mg/dL before meals <180 mg/dL all other times of the day Blood specimen (specimen) 02/07/2020 10:58 AM EDT 02/07/2020 10:58 AM EDT Rell Gutierrez MD POINT OF CARE TEST O RDERABLES [facility] [place] [place] [address] * Lavender Tube HOLD (02/07/2020 10:55 AM EDT) Lavender Hold Sample in lab. [facility] Blood specimen (specimen) Venous Draw / Unknown 02/07/2020 10:55 AM EDT 02/07/2020 11:16 AM EDT Kayleigh Crook MD HEMATOLOGY ORDERABLE S Performing Organization Address City/[facility]/ZIP Co de Phone Number [facility] [address] * Phosphorus (02/07/2020 10:55 AM EDT) Phosphorus 3.0 2.5 - 4.5 mg/dL [facility] Blood specimen (specimen) 02/07/2020 10:55 AM EDT 02/07/2020 11:15 AM EDT Narrative Resulting Agency Comment Spec In Lab Rell Gutierrez MD CHEMISTRY ORDERABLES Performing Organization Address City/[facility]/ZIP Co de Phone Number [facility] [place] [address] * Magnesium (02/07/2020 10:55 AM EDT) Magnesium 1.00 0.69 - 1.07 mmol/L [facility] Blood specimen (specimen) 02/07/2020 10:55 AM EDT 02/07/2020 11:15 AM EDT Narrative Resulting Agency Comment Spec In Lab Rell Gutierrez MD CHEMISTRY ORDERABLES Performing Organization Address [facility] de Phone Number [facility] [place] [address] * Heparin (unfractionated) Level (02/07/2020 10:55 AM EDT) Pathologist [facility] UF Heparin 0.44 IU/mL [facility] Comment: Guidelines for therapeutic unfractionated [...] Lab Vik Justin MD HEMATOLOGY ORDE MARIANNE Performing Organization Address [facility] Co de Phone Number [facility] [place] [address] * (ABNORMAL) Troponin (02/07/2020 10:55 AM EDT) [facility] Troponin-T 0.13(H) 0.00 - 0.00 ng/mL [facility] Comment: The 99th percentile for Troponin T is less than 0.01 ng/mL, any detectable cTnT concentration using this assay should be considered elevated. According to the third universal definition of myocardial infarction the following criteria with a clinical presentation consistent with acute myocardial ischemia meets the diagnosis for a myocardial infarction (OR). Detection of a rise and/or fall of cTnT, with at least one value greater than the 99th percentile (> or = 0.01) and with at least one of the following ?? Symptoms of ischemia ?? New or presumed new significant XK-jhiujos-Q wave (ST-T) changes or new left bundle [...] additional sample may be indicated. Reference: Third Hood Definition of Myocardial Infarction. Journal of the [place] College of [employer]iology 2012;60:1581-98 Blood specimen (specimen) 02/07/2020 10:55 AM EDT 02/07/2020 11:15 AM EDT Narrative Resulting Agency Comment Spec In Lab Vik Justin MD CHEMISTRY ORDER TOBI [facility] [place] [address] * ECHO COMPLETE W CONTRAST (02/07/2020 10:46 AM EDT) EF 61 HEART[facility] SYSTEM Anatomical Region Laterality Modality Other 02/07/2020 Narrative 02/07/2020 1:49 PM EDT Procedure: ?Transthoracic Echocardiogram Patient: ?JARRETT Mcintosh ?(Age): 1960(59y) Med Rec#: ? [id number] ?Sex: ?F ? Site Loc: ? [facility] ?Ht / Wt: ??165(cm)/118(kg) Pt. Loc: ?[facility] ? BSA: ?2.21 Study Date: ?? 02/07/2020 ?Pt. Type: Inpatient Tape: ? Referring: Rell Gutierrez ??([id number]) Referring: LISY Reading: Ruslan Mcfarlane ([id number]) [facility] Aide: Laura Brown Diagnosis: *Non-ST elevation (NSTEMI) myocardial [...] Vmax ?0.61 ? m/sec ? MV deceleration [id number] ?msec ? MV A-wave Vmax ?0.77 ? [...] ? Mid-Inferior ?Normal ? Mid-Inferoseptal ?Hypokinetic ? Ekron-Septal ? Hypokinetic ? Ekron-Anterior ? Akinetic ? Ekron-Lateral ?Akinetic ? Ekron-Inferior ? Hypokinetic ? Ekron-Tip ?Akinetic ? This report has been electronically signed by: Ruslan Mcfarlane MD ? 02/07/2020 13:49:14 Images reviewed and interpretation verified [facility] Cardiac Ultrasound Laboratory Procedure Note Ruslan Mcfarlane MD - 02/07/2020 Procedure: Transthoracic Echocardiogram Patient: JARRETT BUSTILLO(Age): 1960(59y) Med Rec#: [id number] Sex: F Site Loc: [facility] Ht / Wt: 165(cm)/118(kg) Pt. Loc: [facility] BSA: 2.21 Study Date: 02/07/2020 Pt. Type: Inpatient Tape: Referring: Rell Gutierrez ([id number]) Referring: LISY Reading: Ruslan Mcfarlane ([id number]) [facility] Aide: Laura Brown Diagnosis: *Non-ST elevation (NSTEMI) myocardial [...] MV E-wave Vmax 0.61 m/sec MV deceleration [id number] msec MV A-wave Vmax 0.77 m/sec MV [...] Normal Mid-Posterolateral Normal Mid-Inferior Normal Mid-Inferoseptal Hypokinetic Ekron-Septal Hypokinetic Ekron-Anterior Akinetic Ekron-Lateral Akinetic Ekron-Inferior Hypokinetic Ekron-Tip Akinetic This report has been electronically signed by: Ruslan Mcfarlane MD 02/07/2020 13:49:14 Images reviewed and interpretation verified [facility] Cardiac Ultrasound Laboratory Rell Gutierrez MD ECHO [...] Narrative 02/07/2020 9:04 AM EDT ?[facility] ? Cardiac Catheterization/Intervention Report ? Patient Name: Danielle Mills ? Procedure Date: 02/07/2020 ? A #: [id number] ? Primary Physician: Todd Garcia T ? Case #: [id number] ? File Name: [id number] ? Catheterization Order Number: [id number] ? [facility] [employer] [facility] ? Final Report [place], [place] ? Patient Name: ? Danielle Jarrett ? ID#: ?[id number] ? : ?1960 ? Procedure Date: ? February 07, 2020 ? Case #: ? [id number] ? Room: ? 2 ? Case Physician: ? Todd Garcia M.D. ?Start: ?08:14 ?Fellow: ? David Vigil M.D. ?Admission: ??02/07/2020 ? Discharge: ??02/09/2020 ? Referring Physician: ??Koby Dickson ? Procedures: ?* Coronary Angiography ?* [...] was designated as ASA Class IV. ?The [facility] clinical frailty scale is 5: Mildly Frail. ? Diagnostic Tests: ?Prior Coronary Angiography: ? LV ejection fraction within 6 months is 30%. ?Electrocardiography: ? EKG was assessed by ECG. EKG was Abnormal. EKG showed T-wave ? inversions. ?Medications Prior to Procedure: ? Aspirin and Statin. ? Indications for Diagnostic Cath: ?The priority of the diagnostic procedure was Urgent. The indication for ?the operations label clerk visit is ACS less than or equal [...] 8Fr IABP was inserted via the right BRACELET AND BROOCH MAKER using ultrasound guidance. ?The IABP was advanced via the right BRACELET AND BROOCH MAKER into the distal aortic arch over ?a wire. ??After confirming position, the IABP was sutured in place and ?connected to the console. ??The counterpulsation was initiated and the ?patient was noted to become chest pain free. ?Successful inseriton of a 50cc IABP via an 8fr sheat in the right BRACELET AND BROOCH MAKER. ?The attending physician was present for the entire procedure. ?Dr. Todd Garcia M.D. was present during the moderate sedation ?intraservice time as documented by the sedation nurse. ??Case time = 00:34. ?Dr. Todd Garcia M.D. performed the coronary angiography, left heart ?catheterization and IABP insertion in operations label clerk. ? Todd Garcia MDenysD. ? Electronically Signed by: Todd Garcia M.D. ? Report Finalized: 02/07/2020 ??08:57 ? Report Last Ammended: 03/23/2020 ??13:05 ? Procedure Note Todd Garcia MD - 03/23/2020 [facility] Cardiac Catheterization/Intervention Report Patient Name: Danielle Mills Procedure Date: 02/07/2020 A #: [id number] Primary Physician: Todd Garcia Case #: [id number] File Name: [id number] Catheterization Order Number: [id number] [facility] FinalReport [place], [place] Patient Name: Danielle Mills ID#:[id number] :1960 Procedure Date: February 07, 2020 Case #: [id number] Room: 2 Case Physician: Todd Garcia M.D. Start: 08:14 Fellow: David Vigil M.D. Admission:02/07/2020 Discharge:02/09/2020 Referring Physician: Koby Dickson Procedures: * Coronary Angiography * Left [...] was designated as ASAClass IV. The [facility] clinical frailty scale is 5: Mildly Frail. Diagnostic Tests: Prior Coronary Angiography: LV ejection fraction within 6 months is 30%. Electrocardiography: EKG was assessed by ECG. EKG was Abnormal. EKG showed T-wave inversions. Medications Prior to Procedure: Aspirin and Statin. Indications for Diagnostic Cath: The priority of the diagnostic procedure was Urgent. The indicationfor the operations label clerk visit is ACS less than or equal [...] 8Fr IABP was inserted via the right BRACELET AND BROOCH MAKER using ultrasoundguidance. The IABP was advanced via the right BRACELET AND BROOCH MAKER into the distal aortic archover a wire. [...] angiography, leftheart catheterization and IABP insertion in operations label clerk. Todd Garcia M.D. Electronically Signed by: Todd Garcia M.D. Report Finalized: 02/07/2020 08:57 Report Last Ammended: 03/23/2020 13:05 Todd Garcia MD CARDIAC CATH ORDERAB LES * POCT Glucose (02/07/2020 7:32 AM EDT) Glucose, POC 147 65 - 199 mg/dL [facility] Comment: Supplemental ranges: <140 mg/dL before meals <180 mg/dL all other times of the day Blood specimen (specimen) 02/07/2020 7:32 AM EDT 02/07/2020 7:32 AM EDT Rell Gutierrez MD POINT OF CARE TEST O RDERABLES [facility] [place] [address] * (ABNORMAL) Hemoglobin A1c (02/07/2020 7:29 AM EDT) Hemoglobin A1c 6.8(H) 4.3 - 5.6 % [facility] Comment: Reference Range: 4.3 - [...] Mellitus, Diabetes Care 2013; 36: Suppl. 1, S67-94 Estimated Average Glucose 147 mg/dL [facility] Comment: eAG equivalents for HbA1c [...] into estimated average glucose values. ??Diabetes Care 2008:31(8):5067-0204. Blood specimen (specimen) Venous Draw / Unknown 02/07/2020 7:29 AM EDT 02/07/2020 8:47 AM EDT Narrative Resulting Agency Comment Spec In Lab Keyon Foley MD CHEMISTRY ORDERABLES Performing Organization Address [facility] de Phone Number [facility] [place] [address] * Sedimentation rate (02/07/2020 7:29 AM EDT) [facility] Sedimentation Rate Automated 25 2 - 39 mm/hr [facility] Comment: Effective April 21, 2019 [...] MD HEMATOLOGY ORDERABLE S Performing Organization Address [facility] Co de Phone Number [facility] [place] [address] * (ABNORMAL) Hepatic Function Panel (02/07/2020 7:29 AM EDT) [facility] Protein, Total 6.0(L) 6.1 - 8.0 gm/dL [facility] Albumin 3.8 3.2 - 5.2 gm/dL [facility] Aspartate Aminotransferase 35(H) 0 - 30 unit/L [facility] Alanine Aminotransferase 36(H) 0 - 30 unit/L [facility] Alkaline Phosphatase 72 35 - 105 unit/L [facility] Bilirubin, Total 0.4 0.2 - 1.3 mg/dL [facility] Bilirubin, Direct 0.1 0.0 - 0.3 mg/dL [facility] Blood specimen (specimen) Venous Draw / Unknown 02/07/2020 7:29 AM EDT 02/07/2020 7:45 AM EDT Narrative Resulting Agency Comment Spec In Lab Rell Gutierrez MD CHEMISTRY ORDERABLES [facility] [place] [address] * Lipase (02/07/2020 7:29 AM EDT) [facility] Lipase 28 0 - 60 unit/L [facility] Blood specimen (specimen) Venous Draw / Unknown 02/07/2020 7:29 AM EDT 02/07/2020 7:45 AM EDT Narrative Resulting Agency Comment Spec In Lab Rell Gutierrez MD CHEMISTRY ORDERABLES [facility] [place] [address] * (ABNORMAL) CRP, acute inflammation (02/07/2020 7:29 AM EDT) [facility] C-Reactive Protein 18.2(H) <=4.9 mg/L [facility] Blood specimen (specimen) Venous Draw / Unknown 02/07/2020 7:29 AM EDT 02/07/2020 7:45 AM EDT Narrative Resulting Agency Comment Spec In Lab Rell Gutierrez MD [place] [address] * Differential, Automated (02/07/2020 7:29 AM EDT) Neutrophil % 64.8 % [facility] Neutrophil Absolute 5.08 1.70 - 6.10 x10(3)/[facility] Lymph % 27.1 % [facility] Lymphocytes Abs 2.1 0.9 - 3.2 x10(3)/[facility] Monocyte % 6.8 % [facility] Monocyte Abs 0.5 0.3 - 0.9 x10(3)/[facility] Eos % 0.5 % [facility] Eosinophils Abs 0.0 0.0 - 0.4 x10(3)/[facility] Basophil % 0.5 % [facility] Baso Absolute 0.0 0.0 - 0.1 x10(3)/[facility] Immature Gran % 0.30 % [facility] Comment: Immature granulocytes(IG's)percentage and absolute count will include metamyelocytes, myelocytes, and promyelocytes. Blood smears from CBCs yielding IG's will be scanned manually for concordance. If this scan disagrees with the automated IG or if promyelocytes are noted, a manual differential will be performed. Immature Gran Absolute 0.02 0.00 - 0.04 x10(3)/[facility] Blood specimen (specimen) 02/07/2020 7:29 AM EDT 02/07/2020 7:45 AM EDT Narrative Resulting Agency Comment Spec In Lab Vik Justin MD HEMATOLOGY ORDE MARIANNE Performing Organization Address City/[facility]/ZIP Co de Phone Number [facility] [place] [place] [address] * (ABNORMAL) Hemogram (02/07/2020 7:29 AM EDT) Pathologist [facility] [place] White Blood Cell 7.8 4.0 - 9.5 x10(3)/[facility] LABORATORY Red Blood Cell 5.33(H) 4.00 - 5.21 x10(6)/[facility] LABORATORY Hemoglobin 13.7 11.7 - 15.5 gm/dL [facility] Hematocrit 45.2 35.7 - 45.8 % [facility] Mean Cell Volume 84.8 82.6 - 94.4 fL [facility] Mean Cell Hemoglobin 25.7(L) 27.1 - 32.0 pg [facility] Mean Cell Hemoglobin Concentration 30.3(L) 31.7 - 35.0 gm/dL [facility] Platelet 173 145 - 357 x10(3)/[facility] LABORATORY RDW Standard Deviation 43.9 37.0 - 46.0 [facility]ATORY RDW coefficient of variation 14.2(H) 11.5 - 14.1 % [facility] Mean Platelet Volume 11.0 7.6 - 12.9 fL [facility] NRBC% auto 0.0 % [facility] NRBC Absolute 0.000 0.000 - 0.000 x10(3)/[facility] LABORATORY Blood specimen (specimen) 02/07/2020 7:29 AM EDT 02/07/2020 7:45 AM EDT Narrative Resulting Agency Comment Spec In Lab Vik Justin MD HEMATOLOGY EDEN LOPES [facility] [place] [place] [address] * Prothrombin Time (02/07/2020 7:29 AM EDT) Pathologist [facility] Prothrombin Time 11.8 9.4 - 12.5 sec [facility] International Normalization Ratio 1.0 [facility] Comment: An INR <2.0 indicates [...] MD HEMATOLOGY ORDE RABLES Performing Organization Address [facility]/ZIP Co de Phone Number [facility] [place] [address] * (ABNORMAL) pro-Brain Natriuretic Peptide (02/07/2020 7:29 AM EDT) NT-proBNP 893(H) <=125 pg/mL [facility] Blood specimen (specimen) 02/07/2020 7:29 AM EDT 02/07/2020 7:45 AM EDT Narrative Resulting Agency Comment Spec In Lab Vik Justin MD CHEMISTRY ORDER TOBI Performing Organization Address City/[facility]/ZIP Co de Phone Number [facility] [place] [place] [address] * Lipid Panel (Reflex Direct LDL) (02/07/2020 7:29 AM EDT) Cholesterol, Total 186 mg/dL [facility] Comment: Lower Risk: <200 mg/dL Average Risk: 200-239 mg/dL Higher Risk: >of=140 mg/dL Triglyceride 161 mg/dL [facility] Comment: Average Risk/Lower Risk: <150 mg/dL Borderline High Risk: 150-199 mg/dL High Risk: 200-499 mg/dL Very High Risk: >xl=701 mg/dL HDL Cholesterol 34 mg/dL [facility] Comment: Males: ?? Higher Risk: <40 mg/dL Females: ?? HIgher Risk: <50 mg/dL LDL Cholesterol 120 mg/dL [facility] Comment: Lowest Risk: <100 mg/dL Lower Risk: 100-129 mg/dL Borderline High Risk: 130-159 mg/dL High Risk: 160-189 mg/dL Very High Risk: >sa=800 mg/dL Cholesterol/HDL Ratio 5.5 ratio [facility] Lipid Interpretation See Note [facility] Comment: Lipid management should be guided by a patient? s ASCVD risk, goals and preferences. ACC/AHA Guidelines recommend high intensity statin if clinical ASCVD or LDL greater than or equal to 190 mg/dL. http://V.i. Laboratories.com/EYX-INO-Vfxbiyakw Adults aged 40-75 with LDL 70-189 mg/dL should have their 10 year ASCVD risk estimated with the ACC/AHA ASCVD risk estimator printing http://tools.acc.org/TAOCL-Mosf-Hlgyfaprd/ Statin should be discussed if risk greater [...] Lab Vik Justin MD CHEMISTRY ORDER TOBI [facility] [place] [place] [address] * TSH (02/07/2020 7:29 AM EDT) Thyroid Stimulating Hormone 1.30 0.27 - 4.20 mcIU/mL [facility] Blood specimen (specimen) 02/07/2020 7:29 AM EDT 02/07/2020 7:45 AM EDT Narrative Resulting Agency Comment Spec In Lab Vik Justin MD CHEMISTRY ORDER TOBI Performing Organization Address City/[facility]/ZIP Co de Phone Number [facility] [place] [place] [address] * (ABNORMAL) Troponin (02/07/2020 7:29 AM EDT) Troponin-T 0.10(H) 0.00 - 0.00 ng/mL [facility] Comment: Called by: graciela, Read back by: koby yates (museum director), Date/Time:_02/07/20 08:14. The 99th percentile for Troponin T is less than 0.01 ng/mL, any detectable cTnT concentration using this assay should be considered elevated. According to the third universal definition of myocardial infarction the following criteria with a clinical presentation consistent with acute myocardial ischemia meets the diagnosis for a myocardial infarction (OR). Detection of a rise and/or fall of cTnT, with at least one value greater than the 99th percentile (> or = 0.01) and with at least one of the following ?? Symptoms of ischemia ?? New or presumed new significant BQ-fvgzwrd-M wave (ST-T) changes or new left bundle [...] additional sample may be indicated. Reference: Third Hood Definition of Myocardial Infarction. Journal of the [place] College of [employer]iology 2012;60:1581-98 Blood specimen (specimen) 02/07/2020 7:29 AM EDT 02/07/2020 7:45 AM EDT Narrative Resulting Agency Comment Spec In Lab Vik Justin MD CHEMISTRY ORDER TOBI Performing Organization Address City/[facility]/ZIP Co de Phone Number [facility] [place] [place] [address] * (ABNORMAL) BMP w/fasting Glucose (02/07/2020 7:29 AM EDT) [facility] Signature Glucose Fasting 155(H) 65 - 99 mg/dL [facility] Comment: ?Fasting* Glucose Interpretive Criteria [...] of Diabetes Mellitus, Position Statement from the [place] Diabetes Association. ??Diabetes Care, Volume 33, Supplement 1, May 2009 Blood Urea Nitrogen 7(L) 8 - 18 mg/dL [facility] Creatinine 0.69(L) 0.70 - 1.20 mg/dL [facility] Sodium 139 135 - 145 mmol/L [facility] Potassium 4.1 3.5 - 5.0 mmol/L [facility] Comment: Please note: ??Patients with WBC >100,000 may have falsely elevated Potassium levels. ??For accurate Potassium quantification in these patients send serum separator tube (gold top) for subsequent determinations. ??Contact the Clinical Chemistry Laboratory if there are any questions. Chloride 105 98 - 107 mmol/L [facility] Carbon Dioxide 21(L) 22 - 31 mmol/L [facility] Anion Gap 13 5 - 15 mmol/L [facility] Calcium 8.1(L) 8.5 - 10.5 mg/dL [facility] Est Glomerular Filtration Rate 96 >=60 mL/min/1. 73 m?? [facility] Comment: The eGFR was calculated using the CKD-EPI equation. As with all creatinine based estimates of kidney function, eGFR values calculated with the CKD-EPI equation are not accurate in patients with acute kidney failure, extremes of body mass or the acutely ill. http://INMAN/DHnkf eGFR 111 >=60 mL/min/1. 73 m?? [facility] Comment: The eGFR was calculated using the CKD-EPI equation. As with all creatinine based estimates of kidney function, eGFR values calculated with the CKD-EPI equation are not accurate in patients with acute kidney failure, extremes of body mass or the acutely ill. http://INMAN/[facility] TULSAnkf Blood specimen (specimen) 02/07/2020 7:29 AM EDT 02/07/2020 7:45 AM EDT Narrative Resulting Agency Comment Spec In Lab Vik Justin MD CHEMISTRY ORDER TOBI Performing Organization Address City/[facility]/ZIP Co de Phone Number [facility] [place] [address] * EKG 12 Lead (02/07/2020 6:33 AM EDT) Ventricular rate 80 BPM MUSE SYSTEM Atrial Rate 80 BPM MUSE SYSTEM P-R Interval 150 ms MUSE SYSTEM QRS Duration 82 ms MUSE SYSTEM Q-T Interval 426 ms MUSE SYSTEM QTC Calculated (Bezet) 491 ms MUSE SYSTEM Calculated P [place] 54 degrees MUSE SYSTEM Calculated R [place] 6 degrees MUSE SYSTEM Calculated T [place] 103 degrees MUSE SYSTEM INTERPRETATION Normal sinus rhythm Anterior infarct , age undetermined Possible Left atrial enlargement T wave abnormality, consider lateral ischemia Abnormal ECG No previous ECGs available I personally reviewed the tracing and edited the fellows interpretation Confirmed by fellow Fabian Waters ([id number]) on 02/07/2020 2:39:52 PM Confirmed by MD LENCHO, KOBY ([id number]) on 02/08/2020 5:36:22 PM MUSE SYSTEM 02/07/2020 6:33 AM EDT 02/08/2020 5:36 PM EDT Vik Justin MD ECG ORDERABLES Performing Organization Address City/[facility]/ZIP Co de Phone Number MUSE SYSTEM documented in this encounter Visit [...] 0743, Until Fri02/07/20 at 0745, LAURA SOMMER: libra override aspirin chewable tablet 81 mg 81 [...] 0745 (Given - Provider: Laura Sommer RN)0755 ([facility] Hold - Provider: Admin Adt - Reason: Transfer to a Procedural area)0900 ([facility] Held - Provider: Admin Adt)0906 ([facility] Unhold - Provider: Admin Adt)1401 ([facility] Hold - Provider: Admin Adt - Reason: Transfer to a Procedural area)1549 ([facility] Unhold - Provider: Admin Adt) 0806 (Given - Provider: Maribel Babcock, SHAR) 0816 (Given - Provider: Ann Mari RN) atorvastatin (Lipitor) tablet 80 mg 80 mg, Oral, EVERY EVENING, First dose on Fri02/09/20 at 1700, Until Discontinued, Routine clopidogreL (Plavix) tablet 75 mg 75 mg, Oral, DAILY, First dose (after last modification) on Fri02/08/20 at 0700, Until Discontinued, Routine 1401 ([facility] Hold - Provider: Admin Adt - Reason: Transfer to a Procedural area)1549 ([facility] Unhold - Provider: Admin Adt) 0806 (Given - Provider: Maribel Babcock, SHAR) 0816 (Given - Provider: Ann Mari RN) [...] Routine 0932 (Given - Provider: Maribel Babcock, RN) insulin lispro (HumaLOG) VIAL injection 0-8 [...] - Comment: not on this RN's shift)0755 ([facility] Hold - Provider: Admin Adt - Reason: Transfer to a Procedural area)0906 ([facility] Unhold - Provider: Admin Adt)1130 (Not Given - Provider: Alyce Navarro, SHAR - Reason: Order parameters not met)1401 (JUL [...] Babcock RN)1813 (Given - Provider: Maribel Babcock RN)2059 (Given - Provider: Gamaliel Shelton, SHAR) 0848 [...] Sabillon RN) 0518 (Given - Provider: Gamaliel Shelton RN) losartan (Cozaar) tablet 12.5 mg 12.5 mg, Oral, DAILY, First dose on Fri02/08/20 at 1015, Until Discontinued, Routine 1134 (Given - Provider: Maribel Babcock RN) 0817 (Given - Provider: Ann Mari RN) magnesium sulfate 2 g in sterile water 50 mL (COMPLETED) 2 g, Intravenous, ONCE, 1 dose, On Fri02/08/20 at 0615, Administer over 120 Minutes 0623 (New Bag - Provider: Lissa Sabillon, SHAR)0823 (Stopped - Provider: Maribel Babcock, SHAR) magnesium sulfate 2 g in sterile water 50 mL (COMPLETED) 2 g, Intravenous, ONCE, 1 dose, On Fri02/09/20 at 0500, Administer over 120 Minutes 0517 (New Bag - Provider: Gamaliel Shelton RN)0717 (Stopped - Provider: Gamaliel Shelton [...] Provider: Admin Adt)2036 (Given - Provider: Lissa Sabillon, SHAR) 0806 (Given - Provider: Maribel Babcock RN) metoprolol tartrate (Lopressor) tablet 12.5 mg (CANCELED) 12.5 mg, Oral, EVERY 6 HOURS SCHEDULED, First dose (after last modification) on Fri02/08/20 at 1200, Until Discontinued, Hold for HR < 55, SBP < 90, Routine 1138 (Given - Provider: Maribel Babcock RN)1812 (Given - Provider: Maribel Babcock RN)2355 (Given - Provider: Gamaliel Shelton, SHAR) 0518 (Given - Provider: Gamaliel Shelton RN) [...] water, Routine 0931 (Given - Provider: Maribel Babcock RN)1405 (Given - Provider: Maribel Babcock RN) sodium [...] during assessment) 0808 (Given - Provider: Maribel Babcock RN) sodium chloride 0.9 % (flush) flush 5 mL 5 mL, Intravenous, 2 TIMES DAILY, First dose on Fri02/07/20 at 1015, Until Discontinued, Routine 1051 (Given - Provider: Alyce Navarro RN)1401 ([facility] Hold - Provider: Admin Adt - Reason: Transfer to a Procedural area)1549 (JUL Unhold - Provider: Admin Adt)2036 (Given - Provider: Lissa Sabillon, SHAR) 0807 (Given - Provider: Maribel Babcock, SHAR)2100 (Given - Provider: Gamaliel Shelton, SHAR) 0820 [...] (Rate/Dose Verify - Provider: Alyce Navarro RN)1401 (JUL Hold - Provider: Admin Adt - Reason: Transfer to a Procedural area)1549 ([facility] Unhold - Provider: Admin Adt)1600 (Rate/Dose Verify - Provider: Alyce Navarro RN)1800 (Stopped - Provider: Alyce Navarro RN) PRN [...] area)1549 (JUL Unhold - Provider: Admin Adt) 0109 (Given - Provider: Lissa Sabillon RN) clonazePAM (KlonoPIN) tablet 0.5 mg 0.5 mg, Oral, 2 TIMES DAILY PRN, Starting on Fri02/07/20 at 0921, Until Fri02/09/20 at 1430, Anxiety, DO NOT SPLIT, CRUSH OR OPEN, Routine 1401 ([facility] Hold - Provider: Admin Adt - Reason: Transfer to a Procedural area)1549 ([facility] Unhold - Provider: Admin Adt) cyclobenzaprine (Flexeril) tablet 10 mg 10 mg, Oral, 3 TIMES DAILY PRN, Starting on Fri02/07/20 at 0921, Until Fri02/09/20 at 1430, Muscle spasms, Routine 1401 ([facility] Hold - Provider: Admin Adt - Reason: Transfer to a Procedural area)1549 ([facility] Unhold - Provider: Admin Adt) dextrose 10% [...] the duration of the active insulin. 0755 ([facility] Hold - Provider: Admin Adt - Reason: Transfer to a Procedural area)0906 ([facility] Unhold - Provider: Admin Adt)1401 ([facility] Hold - Provider: Admin Adt - Reason: Transfer to a Procedural area)1549 ([facility] Unhold - Provider: Admin Adt) fentaNYL (PF) [...] duration of the active insulin., Routine 0755 (JUL Hold - Provider: Admin Adt - Reason: Transfer to a Procedural area)0906 ([facility] Unhold - Provider: Admin Adt)1401 (JUL Hold - Provider: Admin Adt - Reason: Transfer to a Procedural area)1549 ([facility] Unhold - Provider: Admin Adt) glucose (GLUTOSE) [...] of tube = 37.5 grams., Routine 0755 (JUL Hold - Provider: Admin Adt - Reason: Transfer to a Procedural area)09 ([facility] Unhold - Provider: Admin Adt)1401 (JUL Hold - Provider: Admin Adt - Reason: Transfer to a Procedural area)1549 ([facility] Unhold - Provider: Admin Adt) heparin (porcine) [...] 1430, for discomfort with PIV insertion, Routine 140 (JUL Hold - Provider: Admin Adt - Reason: Transfer to a Procedural area)154 ([facility] Unhold - Provider: Admin Adt) midazolam [...] Until Fri02/07/20 at 1527, Cath (Intra-Procedure), Routine 143 (New Bag - Provider: Elsie Camacho RN [...] provided on this medication record., Routine 1401 ([facility] Hold - Provider: Admin Adt - Reason: Transfer to a Procedural area)1549 ([facility] Unhold - Provider: Admin Adt) sodium chloride [...] PRN, Starting on 02/07/20 at 1642, Until Fri02/09/20 at 1430, hypokalemia, Administer for serum potassium (mMol/L) of 3.6 - 3.8 See instructions for Potassium Protocol in online policies., Routine documented in this encounter Care Teams Concrete Boom Operator Relationship Specialty Start Date End Date Francy Lowe, QUALITY COMPLIANCE MANAGER PCP - General Family Medicine 10/19/19 02/11/21 documented as of this encounter
--- OUTSIDE RECORDS SUMMARY | 2024-05-21 20:17 | XMS_ITS | Encounter Summary ---
[place] [address] Care Team Providers Care Yard Attendant Name Role Phone Francy Lowe APRN Primary Care Provider + Encounter Details Date Type Department Care Team (Late st Contact Info) Description 09/12/2020 Telephone [place] [phone] Danielle Kimbrough Social History Tobacco Use Types [...] - 09/12/2020 8:19 AM EDT Danielle Mills [id number] Diagnosis/Indication: constipation 1. Have you ever had a/an Colonoscopy before? Yes: Date @ 51 in [place] If yes, did you have any problems [...] on filedocumented in this encounter Care Teams Yard Attendant Relationship Specialty Start Date End Date Francy Lowe APRN PCP - General Family Medicine 10/19/19 02/11/21 documented as of this encounter
--- OUTSIDE RECORDS SUMMARY | 2024-05-21 20:17 | XMS_ITS | Encounter Summary ---
[place] [address] Care Team Providers Care Manager Audio Name Role Phone Francy Lowe APRN Primary Care Provider + Reason for Visit * Reason Onset Date Comments Follow-up 08/07/2020 Tobacco Treatmen t Encounter Details Date Type Department Care Team (Late st Contact Info) Description 08/07/2020 Telephone [place] [address] Arnaud Teague, RN Follow-up (Tobacco Treatment) Social [...] Miscellaneous Notes * Telephone Encounter - Arnaud Teague, RN - 08/07/2020 3:06 PM EDT DATE: 08/07/2020 NAME: Danielle Mills : 1960 Reason for Call: 6-month follow-up for Tobacco Treatment [facility] Arnaud Teague, MSN, RN-BC, NCTTP Tobacco Health Outcomes Liaison [facility] Pager #[phone] documented in this encounter Plan of Treatment Not on file documented as of this encounter Visit Diagnoses Not on filedocumented in this encounter Care Teams Manager Audio Relationship Specialty Start Date End Date Francy Lowe APRN PCP - General Family Medicine 10/19/19 02/11/21 documented as of this encounter
--- OUTSIDE RECORDS SUMMARY | 2024-05-21 20:17 | XMS_ITS | Encounter Summary ---
Author Organization [facility] [place] [address] Care Team Providers Care Basket Weaver Name Role Phone Francy Lowe APRN Primary Care Provider + Reason for Visit * Reason Comments Medication Refill Encounter Details Date Type Department Care Team (Late st Contact Info) Description 10/13/2020 [place] [address] Marta Rivera MD [facility] [place] [address] Social History Tobacco Use Types Packs/Day Years [...] on filedocumented in this encounter Care Teams Basket Weaver Relationship Specialty Start Date End Date Francy Lowe APRN PCP - General Family Medicine 10/19/19 02/11/21 documented as of this encounter
--- OUTSIDE RECORDS SUMMARY | 2024-05-21 20:17 | XMS_ITS | Encounter Summary ---
Author Organization [facility] Address [facility] [place] [address] Care Team Providers Care Nursing Manager Name Role Phone Francy Lowe APRN Primary Care Provider + Reason for Visit * Reason Comments Medication Refill Encounter Details Date Type Department Care Team (Late st Contact Info) Description 08/29/2020 Refill [place] [address] Marta Rivera MD [facility] [place] [address] Type 2 diabetes, controlled, with neuropathy Social [...] uncontrolled documented in this encounter Care Teams Nursing Manager Relationship Specialty Start Date End Date Francy Lowe APRN PCP - General Family Medicine 6/9/20 10/3/21 documented as of this encounter
--- OUTSIDE RECORDS SUMMARY | 2024-05-21 20:17 | XMS_ITS | Encounter Summary ---
Author Organization [facility] Address [facility] [place] [address] Care Team Providers Care Meat Pumper Name Role Phone Francy Lowe APRN Primary Care Provider + Encounter Details Date Type Department Care Team (Latest Contact Info) Description 03/07/2020 10:00 AM EDT TH Visit (TeleHealth) [place] [address] Marta Rivera MD [facility] [place] [address] 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, Tg [...] year at our office by the same flat lock machine operator next spring/summer. 4. RTC: 6-9 mo [...] recently admitted in late Jan 2020 for NM s/p 3 stents (02/07/20) Patient verbally consents [...] to BEN. She recently admitted due to NM s/p 3 stents for her 3vss CAD with summary as shown below: Hospital Course during 02/06-02/09/20: #NSTEMI s/p PCI with JEANETH to LAD, LPA and LPL1 Admitted to the cardiology service. The patient was taken to the r and d lab technician and noted to have 3 [...] and occasional difficulty swallowing. Thyroid US at [facility] on 10/22/19 showed a Rt thyroid [...] ??? Carpal tunnel syndrome G56.00 ??? Cystocele [id number] ??? Depression, anxiety, insomnia, PTSD F32.9 ??? [...] file Gets together: Not on file Attends mu-ism service: Not on file Active member of [...] No proximal muscle weakness. Thyroid US at [facility] Radiology (10/22/19) before taking thyroid Rx showed a Rt thyroid nodule of 1.1 cmand the others were < 1 cm with rec to FU in 6 mo. Office Thyrid Ultrasound: 12/06/19 (~6 weeks after taking liothyronine supplement) Indication: Rt thyroid nodule and Delano's thyroiditis - to assess nodule characteristic & may need FNA biopsy if suspicious. Comparison: 10/22/19 US from outside at [facility]. Procedure: Real-time ultrasonography limited to the thyroid gland and lateral neck area with and without color doppler were obtained using a [employer] Focus 400 US machine and an [id number] [...] LAD, LPA and LPL1 ?? Results for JARRETT, DANIELLE K ( ) Ref. Range 12/06/2019 12:06 02/07/2020 [...] recently admitted in late Jan 2020 for NM s/p 3 stents (02/07/20), so we will [...] year at our office by the same flat lock machine operator next spring/summer. 4. RTC: 6-9 mo [...] Rivera MD, PhD, FACE, FACP cc: Francy Lwoe APRN documented in this encounter Plan of [...] insulin documented in this encounter Care Teams Meat Pumper Relationship Specialty Start Date End Date Francy Lowe APRN PCP - General Family Medicine 10/19/19 02/11/21 documented as of this encounter
--- OUTSIDE RECORDS SUMMARY | 2024-05-21 20:17 | XMS_ITS | Encounter Summary ---
[place] [address] Care Team Providers Care Nurse Liaison Name Role Phone Francy Lowe APRN Primary Care Provider + Reason for Visit * Reason Onset Date Comments Follow-up 03/10/2020 tobacco treatmen t Encounter Details Date Type Department Care Team (Late st Contact Info) Description 03/10/2020 Telephone [place] [phone] Arnaud Teague, RN Follow-up (tobacco treatment) Social [...] Telephone Encounter - Arnaud Teague, RN - 03/10/2020 11:55 AM EDT DATE: 03/10/2020 NAME: Danielle Mills : 1960 Reason for Call: 1-month follow-up for Tobacco Treatment [facility] Arnaud Teague, MSN, RN-BC, [facility] Tobacco Rotary Dump Operator [facility] Pager #[phone] documented in this encounter Plan of Treatment Not on file documented as of this encounter Visit Diagnoses Not on filedocumented in this encounter Care Teams Nurse Liaison Relationship Specialty Start Date End Date Francy Lowe APRN PCP - General Family Medicine 10/19/19 02/11/21 documented as of this encounter
--- OUTSIDE RECORDS SUMMARY | 2024-05-21 20:17 | XMS_ITS | Encounter Summary ---
[place] [address] Care Team Providers Care Staff Mine Warfare Officer Name Role Phone Francy Lowe APRN Primary Care Provider + Reason for Visit * Reason Onset Date Comments Medication Refill 12/25/2020 Encounter Details Date Type Department Care Team (Late st Contact Info) Description 12/25/2020 Refill [place] [address] Nimesh Alicia MD [facility] [place] [address] Social History Tobacco Use Types Packs/Day Years [...] on filedocumented in this encounter Care Teams Staff Mine Warfare Officer Relationship Specialty Start Date End Date Francy Lowe APRN PCP - General Family Medicine 10/19/19 02/11/21 documented as of this encounter
--- OUTSIDE RECORDS SUMMARY | 2024-05-21 20:17 | XMS_ITS | Encounter Summary ---
[place] [address] Care Team Providers Care Calculator Operator Name Role Phone Francy Lowe APRN Primary Care Provider + Reason for Visit * Reason Onset Date Comments Prior Authorization 08/30/2020 Encounter Details Date Type Department Care Team (Late st Contact Info) Description 08/30/2020 Telephone [place] [address] Lissa Bryant CCMA Prior Authorization Social History [...] Prior Authorization 4L Gastroenterology / [place] [address] Subscriber Insurance: [employer] BIN:[id number] PCN: [id number] Phone: Fax: Physician: Nimesh Alicia NPI: Return [...] on filedocumented in this encounter Care Teams Calculator Operator Relationship Specialty Start Date End Date Francy Lowe APRN PCP - General Family Medicine 10/19/19 02/11/21 documented as of this encounter
--- OUTSIDE RECORDS SUMMARY | 2024-05-21 20:17 | XMS_ITS | Encounter Summary ---
Author [facility] [place] [address] Care Team Providers Care Clinical Esthetician Name Role Phone Francy Lowe APRN Primary Care Provider + Encounter Details Date Type Department Care Team (Late st Contact Info) Description 09/04/2020 Orders [place] [address] Nimesh Alicia MD [facility] [place] [address] Social History Tobacco Use Types Packs/Day Years [...] on filedocumented in this encounter Care Teams Clinical Esthetician Relationship Specialty Start Date End Date Francy Lowe APRN PCP - General Family Medicine 10/19/19 02/11/21 documented as of this encounter
--- OUTSIDE RECORDS SUMMARY | 2024-05-21 20:18 | XMS_ITS | Encounter Summary ---
Author [place] [address] Care Team Providers Care Fur Vault Attendant Name Role Phone Steven Jeffries MD Primary Care Provider [phone] Encounter Details Date Type Department Care Team (Late st Contact Info) Description 08/13/2019 Telephone [place] [address] Lisa Reza Social History Tobacco Use Types [...] - need to change upcoming GI Clinic yao castellanos call to review options (Telehealth/Phone) 1st attempt documented in this encounter Plan of Treatment Not on file documented as of this encounter Visit Diagnoses Not on filedocumented in this encounter Care Teams Fur Vault Attendant Relationship Specialty Start Date End Date Steven Jeffries MD [address] [address] PCP - General General Internal Medicine 11/18/1810/17 documented as of this encounter
--- OUTSIDE RECORDS SUMMARY | 2024-05-21 20:18 | XMS_ITS | Encounter Summary ---
[place] [address] Care Team Providers Care Barrel Polisher Name Role Phone Steven Jeffries MD Primary Care Provider Reason for Referral * Physical Therapy (Routine) - Closed Specialty Diagnoses / Procedures Referred By Contac t Referred To Contact Diagnoses Obstructive defecation Pelvic floor dysfunction Siria Lerner MD [address] [place] [address] Shell Ribeiro, PT [address] [place] [address] Referral ID Status Reason Start Date Expiration Date V isits Requested Visits Authorized [id number] Closed Evaluate and Treat 01/18/2019 07/17/2019 12 12 Reason for Visit * Reason Comments Establish Care * Consultation (Routine) - Closed Specialty Diagnoses / Procedures Referred By Contac t Referred To Contact Obstetrics and Gynecology Diagnoses Rectocele PoginyFrancy L, TAR HEAT EXCHANGER CLEANER [address] [place] [address] [facility] Doggy Daycare Activities Director [address] [place] [phone] Referral ID Status Reason Start Date Expiration Date Visits Re quested Visits Authorized [id number] Closed 12/15/2018 12/15/2019 1 1 Encounter Details Date Type Department Care Team (Late st Contact Info) Description 01/18/2019 11:00 AM EDT Office Visit Obstetrics [place] [address] Siria Lerner MD [address] [place] [phone] Urinary urgency; Obstructive defecation; Pelvic floor dysfunction; [...] Female Pelvic Medicine and Reconstructive Surgery @ [facility] Patient Name: Danielle Mills Patient Primary Care [...] 2.49) performed by Nimesh Alicia MD at [facility] ??? RECTOCELE REPAIR 2014 Dr. Boo @ [facility] ??? SHOULDER SURGERY Left 06/05/2017 L [...] oz) SpO2 98% BMI 46.13 kg/m?? The [employer] Bladder Scanner was used to obtain a [...] test (empty supine): negative External Genitalia: Vulva, Moonshine's and Bartholin glands normal, urethra without tenderness [...] Amb referral to physical therapy to Shell Ribeiro, PT placed. We discussed vaginal estrogen is [...] * POCT urine dipstick (01/18/2019) POC Sp [place] 1.005 1.002 - 1.030 POC pH, UA [...] female documented in this encounter Care Teams Barrel Polisher Relationship Specialty Start Date End Date Steven Jeffries MD [address] [place] [id number] PCP - General General Internal Medicine 11/18/1810/17 documented as of this encounter
--- OUTSIDE RECORDS SUMMARY | 2024-05-21 20:18 | XMS_ITS | Encounter Summary ---
Author Organization [facility] Address [facility] [place] [address] Care Team Providers Care Analyst Name Role Phone Francy Lowe APRN Primary Care Provider + Reason for Visit * Auth/Cert Specialty Diagnoses / Procedures Referred By Jasson mendoza Referred To Contact Diagnoses NSTEMI (non-ST elevated myocardial infarction) nstemi Referral ID Status Reason Start Date Expiration Date Visits Re quested Visits Authorized [id number] 1 1 Encounter Details Date Type Department Care Team (Late st Contact Info) Description 02/07/2020 2:03 PM EDT - 02/07/2020 3:03 PM EDT Surgery [place] [address] Todd Garcia MD [facility] [place] [address] CARDIAC CATHETERIZATION Social History Tobacco Use Types [...] Danielle Mills Patient Age: 59 y.o. Language: Algerian Race: White Ethnicity: Not nor Admit date: [...] transferred from [facility] for NSTEMI. ?? Pt reports 1 [...] cough, leg swelling. No palpitations. ?? At [facility] starting 9 pm, VSS stable 113/73 HR 85 bpm, RR 19 Questionable CLEMENTINA in V1-V2. Troponin 0.24, lipase 117 CT abdomen/plevis reportedly unremarkable. Pt is s/p CCY She received 4mg IV morphine , Zofran She was started on Heparin and NTG drip. Received ASA 324mg @ 1:32 am at [facility] Plavix 300mg @ 1:55am and then 300mg @2:21am. Consulted with Cards fellow at [facility] and decided to transfer. Hospital Course: #NSTEMI s/p PCI with JEANETH to LAD, LPA and LPL1 Admitted to the cardiology service. The patient was taken to the coreroom foundry laborer and noted to have 3 vessel disease. [...] appointments: During 8am-5pm Friday through Friday call [phone] to speak with a nurse in the cardiology clinic All other times call [phone] and ask to speak to the salvage machine operator heating and air conditioning mechanic. Follow up Appointments: ?? Francy Lowe PCP on Friday02/21/20 @ 2:30pm Dr. Carols Jenkins ([facility] Cardiology) on 03/02/20 @ 2:45pm Future Appointments Date Time Provider Department Center 03/07/2020 10:00 AM Marta Rivera MD [facility] END[facility] PCP: Francy Lowe APRN at [phone] Your Inpatient Doctor(s) at [facility]: Rell Gutierrez MD - Attending physician Your Primary Care Provider: Francy Lowe APRN [address] / [place] [address] For questions regarding issues relating to your hospitalization on the Hospital Medicine Service, please contact your inpatient physician through the [facility] Rotary Derrick Operator [phone]. Issues after hours and on weekends will be handled by the Hospitalist staff on-call. General Instructions None Future Appointments and Orders Future Appointments and Orders Future Appointments Provider Department Dept Phone 03/07/2020 10:00 AM Marta Rivera MD Endocrinology at [facility] Arrive at: Home [phone] Please do not come in for this visit. Your provider will call you at the number you provided. Future Orders Complete By Expires Referral to Cardiac Rehab [[id number] Custom] As directed Process Instructions: If no progress note charted, please enter Clinical details in comments. Scheduling Instructions: Questions: My question or request is: NSTEMI, PCI- CR at [facility] Discharge References/Attachments None documented in this encounter [...] appointments: During 8am-5pm Friday through Friday call [phone] to speak with a nurse in the cardiology clinic All other times call [phone] and ask to speak to the salvage machine operator heating and air conditioning mechanic. Follow up Appointments: ?? Francy Lowe, PCP on Friday02/21/20 @ 2:30pm Dr. Carlos Jenkins ([facility] Cardiology) on 03/02/20 @ 2:45pm Future Appointments Date Time Provider Department Center 03/07/2020 10:00 AM Marta Rivera MD [facility] END[facility] PCP: Francy Lowe APRN at [phone] Your Inpatient Doctor(s) at [facility]: Rell Gutierrez MD - Attending physician Your Primary Care Provider: Francy Lowe APRN [address] / [facility] [address] For questions regarding issues relating to your hospitalization on the Hospital Medicine Service, please contact your inpatient physician through the [facility] Rotary Derrick Operator [phone]. Issues after hours and on weekends will [...] that she works with on this at [facility]. Also states that she is on a financial program at [facility]. CM encouraged patient to call the financial assistance number provided on the brochure for screening and to discuss the bill from this hospitalization to determine what could potentially be used towards her Medicaid spend down as well. Patient verbalized understanding and denies any further questions or concerns at this time. CM updated SOLDERER ASSEMBLER and completed consult that was placed for social work re: financial concerns. Clarisa Rees RN, MSN Bakery Sales Clerk - Cardiology Office of Care Management Pager: [phone] Work * Rell Gutierrez MD - 02/09/2020 7:26 AM EDT Inpatient Cardiology Progress Note Patient Name: Danielle Mills Date of Admission: 02/07/2020 ( Hospital Day 2 days ) Service: S2 ID: Danielle Mills 59 y/o F with HTN, DM, dyslipidemia, hypothyroidism, obesity/BEN was transferred from [facility] for NSTEMI. Cardiac cath this AM [...] without focal deficit Labs Recent Labs 02/09/20 03302/08/20 04002/07/20 0729 WBC 7.8 7.9 7.8 HGB 13.5 13.5 13.7 HCT 42.8 42.6 45.2 PLATELET 168 189 173 Recent Labs 02/09/20 03302/08/20 04002/07/20205402/07/20 0729 NA 138 138 -- -- 139 [...] signed by: Trace Lopez MD, [facility] ([phone]), at 02/08/2020 3:54 AM Cardiac Catheterization Final [...] transferred from [facility] for NSTEMI. S/p high risk PCI [...] home Maria Bolaños MD PGY1 Cardiology S2 #[id number] CARDIOLOGY ATTENDING NOTE Patient: Danielle Mills Date [...] anterior ST-T wave changes. Went urgently to coreroom foundry laborer due to ongoing pain on 02/06 - 3VD including PROGRAM FACILITATOR RCA; IABP placed due to ongoing pain. [...] Dr. Bolaños. Rell Gutierrez MD, MPH, RPVI, [facility] Pager [phone] Cardiovascular Certified Real Estate AppraiserSatur[place] [address] * Rell Gutierrez MD - 02/08/2020 7:04 AM EDT Inpatient Cardiology Progress Note Patient Name: Danielle Mills Date of Admission: 02/07/2020 ( Hospital Day 1 day ) Service: S2 ID: Danielle Mills 59 y/o F with HTN, DM, dyslipidemia, hypothyroidism, obesity/BEN was transferred from [facility] for NSTEMI. Cardiac cath this AM [...] signed by: Trace Lopez MD, [facility] ([phone]), at 02/08/2020 3:54 AM Cardiac Catheterization Final Result XR Chest One View Final Result Findings suggestive of mild volume overload without kuldeep pulmonary edema. Thank you for letting us participate in the care of this patient. For questions regarding this report, please contact the number below. Electronically signed by: Varghese Richmond MD, [facility] ([phone]), at 02/07/2020 9:53 AM Cardiac Catheterization Final [...] transferred from [facility] for NSTEMI. S/p high risk PCI [...] floor Maria Bolaños MD PGY1 Cardiology S2 #[id number] CARDIOLOGY ATTENDING NOTE Patient: Danielle Mills Date [...] met medical necessity to require an inpatient I level of care meeting a minimum of two midnights. Mrs. Mills is a 59 year old woman with history of HTN, HLD, DM, obesity who presented with worsening epigastric pain, ruled in for NSTEMI with anterior ST-T wave changes. Went urgently to coreroom foundry laborer due to ongoing pain on 02/06 - 3VD including PROGRAM FACILITATOR RCA; IABP placed due to ongoing pain. [...] Rell Gutierrez MD, MPH, RPVI, FACC Pager [phone] Cardiovascular Certified Real Estate AppraiserSatur[place] [address] * Carmella Alexander - 02/07/2020 9:02 PM [...] Carmella Alexander MD, PGY-2 Cardiology S1/S2, Pager [phone] 02/07/2020 * Ney Sylvester MD - 02/07/2020 [...] AM EDT 0630 Pt admitted for [facility] with c/o chest pain. Pt states she [...] Lowe APRN Presenting Diagnosis/Chief Complaint: Transfer from [facility] with NSTEMI/[place]. Active Problem List: Active Hospital Problems Diagnosis ??? Non-ST elevation myocardial infarction (NSTEMI) Resolved Hospital Problems No resolved problems to display. History of Present Illness: 59 y/o F with HTN, DM, dyslipidemia, hypothyroidism, obesity/BEN was transferred from [facility] for NSTEMI. Pt reports 1 week [...] fever, cough, leg swelling. No palpitations. At [facility] starting 9 pm, VSS stable 113/73 HR 85 bpm, RR 19 Questionable CLEMENTINA in V1-V2. Troponin 0.24, lipase 117 CT abdomen/plevis reportedly unremarkable. Pt is s/p CCY She received 4mg IV morphine , Zofran She was started on Heparin and NTG drip. Received ASA 324mg @ 1:32 am at [facility] Plavix 300mg @ 1:55am and [...] 2.49) performed by Nimesh Alicia MD at [facility] ENDOSCOPY ??? RECTOCELE REPAIR 2014 Dr. Boo @ [facility] ??? SHOULDER SURGERY Left 06/05/2017 [...] file Gets together: Not on file Attends confucianism service: Not on file Active member of [...] transferred from [facility] for NSTEMI. TREATMENT PLAN: #[place]/NSTEMI -ANN score 111 , DENIA score 4 -C/w Heparin and NTG drip. - Received ASA 324mg @ 1:32 am at [facility] -Plavix 300mg @ 1:55am and [...] attempt. Thank you. Arnaud Teague, MSN, RN-, [facility] Tobacco Bath Attendant [facility] Pager #[phone] * Consult Note - Chelsey Beltre RN [...] in an outpatient cardiac rehabilitation program at [facility] was discussed. Patient agrees to a [...] (Interventions Implemented as Appropriate) 02/08/20 0800 02/08/20 1000 Plan of Care Review Progress -- improving [...] Stated by Patient: chest pain/NSTEMI. Transferred from [facility] Last COVID test date and time: [...] spouse would be surrogate decision maker per [place] surrogate decision making law. (Only good for 90 days) Any patient receiving care at [facility] must abide by [place] law. The hierarchy for surrogate decision making [...] The agent with financial power of corporate attorney or a conservator appointed in accordance [...] DC: none Home Address Listed as: [address] [facility] [address] Social & Family Supports: Extended Emergency Contact Information Primary Emergency Contact: Andrés Mills Address: [address] [place] [place] [address] [facility] Relation: Spouse Community Resources being provided [...] Secondary Insurance: N/A Prescription Coverage: Preferred Pharmacy: [id number] [place] - [address] [place] [address] [id number] - [place], [place] - [address] [facility] [address] [facility] - [place], [place] - [address] [facility] [address] [facility] [address] Primary Care Provider: Francy Lowe APRN [phone] Patient/Caregiver Goals of Treatment: DC home Potential [...] service for NSTEMI as a transfer from [facility]. Plan: A member of the Care Management team will continue to monitor progress, follow for continuityof care and assist with transition of care planning. Clarisa Rees, RN, MSN, software asset manager Office of Care Management Pager: [phone] Work * Brief Op Note - Todd Garcia MD - 02/07/2020 3:26 PM EDT Images from the original note were not included. Preliminary Cardiac Catheterization Procedure Note: Patient Name: Danielle Mills : [id number] MR#: [id number] Case Date: 02/07/2020 Rotary Derrick Operator: Surgeon(s) and Role: * Todd Garcia MD - Primary Preoperative diagnosis: ?CAD Postoperative diagnosis: *ASCVD * Procedure(s) performed: Stent insertion, coronary Access: left SPECIAL TAX AUDITOR--> Perclosed A time-out was conducted prior to [...] Procedure Note: Patient Name: Danielle Mills : [id number] MR#: [id number] Case Date: 02/07/2020 Rotary Derrick Operator: Surgeon(s) and Role: * Todd Garcia MD - Primary * David Vigil MD - Fellow Preoperative diagnosis: ASCVD Postoperative diagnosis: * ASCVD * Procedure(s) performed: [facility] Coronary angio IABP insertion Access: right radial--> TR band, right SPECIAL TAX AUDITOR--> IABP inserted A time-out was conducted prior [...] in the past at the ED at [facility] for epigastric pain that had been negative for acute findings. Thispresentation she was found to have a slight troponin elevation and slight ST elevation in V1-V6 with t wave inversions. Cath this am showed multivessel disease including LAD, Circ and RCA. She was still having some chest pain on low dose nitro. An IABP was placed in the coreroom foundry laborer and she is being transferred to [facility]. She received 600mg of plavix this morning. [...] 2.49) performed by Nimesh Alicia MD at [facility] END[facility]COPY ??? RECTOCELE REPAIR 2015 Dr. Boo @ [facility] ??? SHOULDER SURGERY Left 06/05/2017 [...] issues/chronic pain. 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 Family- lives with Andrés and his mother. Illicit drug use- denies Nondenominational- denies Family History: History reviewed. No pertinent [...] geL OR [JUL Hold] dextrose 10% OR [MAR Hold] glucagon(human [...] of Danielle Mills. Signed: JUAN PABLO [facility] Section of Cardiac Surgery Date: 02/07/2020 59 yo female who presents with stuttering NE, on plavix, anterior WMA. CAth shows a very tight proximal LAD stenosis, distal LCX disease, non-dominant RCA which is occluded. The distal LCX circulation is not a good target for bypass surgery. The RCA is not a target. The LAD is a good target. We could end up surgery with only a NAIR to the LAD. Right now on plavix, with an acute NE, on an IABP, with BMI 43 and [...] further details. Vik Justin MD 02/07/2020 Pager [phone] documented in this encounter Plan of Treatment [...] (ABNORMAL) POCT Glucose (02/09/2020 6:55 AM EDT) Pathologist [facility] Glucose, POC 228(H) 65 - 199 mg/dL [facility] Comment: Supplemental ranges: <140 mg/dL before meals <180 mg/dL all other times of the day Blood specimen (specimen) 02/09/2020 6:55 AM EDT 02/09/2020 6:55 AM EDT Rell Gutierrez MD POINT OF CARE TEST O RDERABLES [facility] [place] [address] * Differential, Automated (02/09/2020 3:34 AM EDT) [facility] Neutrophil % 67.7 % [facility] Neutrophil Absolute 5.30 1.70 - 6.10 x10(3)/[facility] Lymph % 20.9 % [facility] Lymphocytes Abs 1.6 0.9 - 3.2 x10(3)/[facility] Monocyte % 9.2 % [facility] Monocyte Abs 0.7 0.3 - 0.9 x10(3)/[facility] Eos % 1.5 % [facility] Eosinophils Abs 0.1 0.0 - 0.4 x10(3)/[facility] Basophil % 0.4 % [facility] Baso Absolute 0.0 0.0 - 0.1 x10(3)/[facility] Immature Gran % 0.30 % [facility] Comment: Immature granulocytes(IG's)percentage and absolute count will include metamyelocytes, myelocytes, and promyelocytes. Blood smears from CBCs yielding IG's will be scanned manually for concordance. If this scan disagrees with the automated IG or if promyelocytes are noted, a manual differential will be performed. Immature Gran Absolute 0.02 0.00 - 0.04 x10(3)/[facility] Blood specimen (specimen) 02/09/2020 3:34 AM EDT 02/09/2020 3:42 AM EDT Narrative Resulting Agency Comment Spec In Lab Maria Bolaños MD HEMATOLOGY ORDERABLE S [facility] [place] [address] * (ABNORMAL) Hemogram (02/09/2020 3:34 AM EDT) White Blood Cell 7.8 4.0 - 9.5 x10(3)/[facility] Red Blood Cell 5.11 4.00 - 5.21 x10(6)/[facility] Hemoglobin 13.5 11.7 - 15.5 gm/dL [facility] Hematocrit 42.8 35.7 - 45.8 % [facility] Mean Cell Volume 83.8 82.6 - 94.4 [facility] Mean Cell Hemoglobin 26.4(L) 27.1 - 32.0 pg [facility] Mean Cell Hemoglobin Concentration 31.5(L) 31.7 - 35.0 gm/dL [facility] Platelet 168 145 - 357 x10(3)/[facility] RDW Standard Deviation 43.8 37.0 - 46.0 [facility] RDW coefficient of variation 14.3(H) 11.5 - 14.1 % [facility] Mean Platelet Volume 11.5 7.6 - 12.9 [facility] NRBC% auto 0.0 % [facility] NRBC Absolute 0.000 0.000 - 0.000 x10(3)/[facility] Blood specimen (specimen) 02/09/2020 3:34 AM EDT 02/09/2020 3:42 AM EDT Narrative Resulting Agency Comment Spec In Lab Maria Bolaños MD HEMATOLOGY ORDERABLE S Performing Organization Address [facility]/ZIP Co de Phone Number [facility] [place] [address] * Phosphorus (02/09/2020 3:34 AM EDT) Phosphorus 2.8 2.5 - 4.5 mg/dL [facility] Blood specimen (specimen) 02/09/2020 3:34 AM EDT 02/09/2020 3:42 AM EDT Narrative Resulting Agency Comment Spec In Lab Rell Gutierrez MD CHEMISTRY ORDERABLES Performing Organization Address [facility] Co de Phone Number [facility] [place] [address] * Magnesium (02/09/2020 3:34 AM EDT) Magnesium 0.93 0.69 - 1.07 mmol/L [facility] Blood specimen (specimen) 02/09/2020 3:34 AM EDT 02/09/2020 3:42 AM EDT Narrative Resulting Agency Comment Spec In Lab Rell Gutierrez MD CHEMISTRY ORDERABLES Performing Organization Address [facility]/ZIP Co de Phone Number [facility] [place] [address] * (ABNORMAL) Basic Metabolic Panel (non-fasting) (02/09/2020 3:34 AM EDT) Glucose 249(H) 65 - 199 mg/dL [facility] Comment:Diabetes: >=200 mg/d L plus symptoms Blood Urea Nitrogen 12 8 - 18 mg/dL [facility] Creatinine 0.78 0.70 - 1.20 mg/dL [facility] Sodium 138 135 - 145 mmol/L [facility] Potassium 3.8 3.5 - 5.0 mmol/L [facility] Comment: Please note: ??Patients with WBC >100,000 may have falsely elevated Potassium levels. ??For accurate Potassium quantification in these patients send serum separator tube (gold top) for subsequent determinations. ??Contact the Clinical Chemistry Laboratory if there are any questions. Chloride 100 98 - 107 mmol/L [facility] Carbon Dioxide 29 22 - 31 mmol/L [facility] Anion Gap 9 5 - 15 mmol/L [facility] Calcium 8.0(L) 8.5 - 10.5 mg/dL [facility] Est Glomerular Filtration Rate 84 >=60 mL/min/1. 73 m?? [facility] Comment: The eGFR was calculated using the CKD-EPI equation. As with all creatinine based estimates of kidney function, eGFR values calculated with the CKD-EPI equation are not accurate in patients with acute kidney failure, extremes of body mass or the acutely ill. [email or web address]/[facility]f eGFR 97 >=60 mL/min/1. 73 m?? [facility] Comment: The eGFR was calculated using the CKD-EPI equation. As with all creatinine based estimates of kidney function, eGFR values calculated with the CKD-EPI equation are not accurate in patients with acute kidney failure, extremes of body mass or the acutely ill. [email or web address] Blood specimen (specimen) 02/09/2020 3:34 AM EDT 02/09/2020 3:42 AM EDT Narrative Resulting Agency Comment Spec In Lab Rell Gutierrez MD CHEMISTRY ORDERABLES [facility] [place] [address] * POCT Glucose (02/08/2020 8:56 PM EDT) Glucose, POC 145 65 - 199 mg/dL [facility] Comment: Supplemental ranges: <140 mg/dL before meals <180 mg/dL all other times of the day Blood specimen (specimen) 02/08/2020 8:56 PM EDT 02/08/2020 8:56 PM EDT Rell Gutierrez MD POINT OF CARE TEST O RDERABLES Performing Organization Address [facility] Co de Phone Number [facility] [place] [address] * POCT Glucose (02/08/2020 4:52 PM EDT) Glucose, POC 144 65 - 199 mg/dL [facility] Comment: Supplemental ranges: <140 mg/dL before meals <180 mg/dL all other times of the day Blood specimen (specimen) 02/08/2020 4:52 PM EDT 02/08/2020 4:52 PM EDT Rell Gutierrez MD POINT OF CARE TEST O SUSHILERATRAY Performing Organization Address [facility] Co de Phone Number [facility] [place] [address] * (ABNORMAL) POCT Glucose (02/08/2020 12:35 PM EDT) Glucose, POC 235(H) 65 - 199 mg/dL [facility] Comment: Supplemental ranges: <140 mg/dL before meals <180 mg/dL all other times of the day Blood specimen (specimen) 02/08/2020 12:35 PM EDT 02/08/2020 12:35 PM EDT Rell Gutierrez MD POINT OF CARE TEST O RDERATRAY Performing Organization Address [facility] Co de Phone Number [facility] [place] [address] * (ABNORMAL) POCT Glucose (02/08/2020 9:38 AM EDT) Glucose, POC 296(H) 65 - 199 mg/dL [facility] Comment: Supplemental ranges: <140 mg/dL before meals <180 mg/dL all other times of the day Blood specimen (specimen) 02/08/2020 9:38 AM EDT 02/08/2020 9:38 AM EDT Rell Gutierrez MD POINT OF CARE TEST O RDERATRAY Performing Organization Address [facility] Co de Phone Number [facility] [place] [address] * (ABNORMAL) POCT Glucose (02/08/2020 7:35 AM EDT) Pathologist [facility] Glucose, POC 241(H) 65 - 199 mg/dL [facility] Comment: Supplemental ranges: <140 mg/dL before meals <180 mg/dL all other times of the day Blood specimen (specimen) 02/08/2020 7:35 AM EDT 02/08/2020 7:35 AM EDT Rell Gutierrez MD POINT OF CARE TEST O MARIANO Performing Organization Address City/[facility] Co de Phone Number [facility] [place] [address] * Differential, Automated (02/08/2020 4:01 AM EDT) [facility] Neutrophil % 68.7 % [facility] Neutrophil Absolute 5.45 1.70 - 6.10 x10(3)/[facility] Lymph % 21.1 % [facility] Lymphocytes Abs 1.7 0.9 - 3.2 x10(3)/[facility] Monocyte % 8.6 % [facility] Monocyte Abs 0.7 0.3 - 0.9 x10(3)/[facility] Eos % 0.8 % [facility] Eosinophils Abs 0.1 0.0 - 0.4 x10(3)/[facility] Basophil % 0.4 % [facility] Baso Absolute 0.0 0.0 - 0.1 x10(3)/[facility] Immature Gran % 0.40 % [facility] Comment: Immature granulocytes(IG's)percentage and absolute count will include metamyelocytes, myelocytes, and promyelocytes. Blood smears from CBCs yielding IG's will be scanned manually for concordance. If this scan disagrees with the automated IG or if promyelocytes are noted, a manual differential will be performed. Immature Gran Absolute 0.03 0.00 - 0.04 x10(3)/mcL [facility] Blood specimen (specimen) 02/08/2020 4:01 AM EDT 02/08/2020 4:06 AM EDT Narrative Resulting Agency Comment Spec In Lab Kayleigh Crook MD HEMATOLOGY ORDERABLE S [facility] [place] [place] [address] * (ABNORMAL) Hemogram (02/08/2020 4:01 AM EDT) White Blood Cell 7.9 4.0 - 9.5 x10(3)/mc L [facility] Red Blood Cell 5.11 4.00 - 5.21 x10(6)/mc L [facility] Hemoglobin 13.5 11.7 - 15.5 gm/dL [facility] Hematocrit 42.6 35.7 - 45.8 % [facility] Mean Cell Volume 83.4 82.6 - 94.4 fL [facility] Mean Cell Hemoglobin 26.4(L) 27.1 - 32.0 pg [facility] Mean Cell Hemoglobin Concentration 31.7 31.7 - 35.0 gm/dL [facility] Platelet 189 145 - 357 x10(3)/mc L [facility] RDW Standard Deviation 43.5 37.0 - 46.0 fL [facility] RDW coefficient of variation 14.3(H) 11.5 - 14.1 % [facility] Mean Platelet Volume 11.2 7.6 - 12.9 fL [facility] NRBC% auto 0.0 % [facility] NRBC Absolute 0.000 0.000 - 0.000 x10(3)/mc L [facility] Blood specimen (specimen) 02/08/2020 4:01 AM EDT 02/08/2020 4:06 AM EDT Narrative Resulting Agency Comment Spec In Lab Kayleigh Crook MD HEMATOLOGY ORDERABLE S [facility] [place] [place] [address] * (ABNORMAL) Phosphorus (02/08/2020 4:01 AM EDT) Phosphorus 1.9(L) 2.5 - 4.5 mg/dL [facility] Blood specimen (specimen) 02/08/2020 4:01 AM EDT 02/08/2020 4:06 AM EDT Narrative Resulting Agency Comment Spec In Lab Rell Gutierrez MD CHEMISTRY ORDERABLES Performing Organization Address City/[facility]/ZIP Co de Phone Number [facility] [place] [place] [address] * Magnesium (02/08/2020 4:01 AM EDT) Magnesium 0.91 0.69 - 1.07 mmol/L [facility] Blood specimen (specimen) 02/08/2020 4:01 AM EDT 02/08/2020 4:06 AM EDT Narrative Resulting Agency Comment Spec In Lab Rell Gutierrez MD CHEMISTRY ORDERABLES Performing Organization Address City/[facility]/ZIP Co de Phone Number [facility] [place] [address] * (ABNORMAL) Basic Metabolic Panel (non-fasting) (02/08/2020 4:01 AM EDT) Glucose 247(H) 65 - 199 mg/dL [facility] Comment:Diabetes: >=200 mg/d L plus symptoms Blood Urea Nitrogen 8 8 - 18 mg/dL [facility] Creatinine 0.66(L) 0.70 - 1.20 mg/dL [facility] Sodium 138 135 - 145 mmol/L [facility] Potassium 4.4 3.5 - 5.0 mmol/L [facility] Comment: Please note: ??Patients with WBC >100,000 may have falsely elevated Potassium levels. ??For accurate Potassium quantification in these patients send serum separator tube (gold top) for subsequent determinations. ??Contact the Clinical Chemistry Laboratory if there are any questions. Chloride 102 98 - 107 mmol/L [facility] Carbon Dioxide 27 22 - 31 mmol/L [facility] Anion Gap 9 5 - 15 mmol/L [facility] Calcium 7.9(L) 8.5 - 10.5 mg/dL [facility] Est Glomerular Filtration Rate 97 >=60 mL/min/1. 73 m?? [facility] Comment: The eGFR was calculated using the CKD-EPI equation. As with all creatinine based estimates of kidney function, eGFR values calculated with the CKD-EPI equation are not accurate in patients with acute kidney failure, extremes of body mass or the acutely ill. [email or web address] eGFR 113 >=60 mL/min/1. 73 m?? [facility] Comment: The eGFR was calculated using the CKD-EPI equation. As with all creatinine based estimates of kidney function, eGFR values calculated with the CKD-EPI equation are not accurate in patients with acute kidney failure, extremes of body mass or the acutely ill. [email or web address] Blood specimen (specimen) 02/08/2020 4:01 AM EDT 02/08/2020 4:06 AM EDT Narrative Resulting Agency Comment Spec In Lab Rell Gutierrez MD CHEMISTRY ORDERABLES [facility] [place] [place] [address] * Potassium (02/07/2020 8:55 PM EDT) Potassium 3.7 3.5 - 5.0 mmol/L [facility] Comment: Please note: ??Patients [...] Gutierrez MD CHEMISTRY ORDERABLES Performing Organization Address [facility]/ZIP Co de Phone Number [facility] [place] [address] * POCT Glucose (02/07/2020 8:48 PM EDT) Glucose, POC 183 65 - 199 mg/dL [facility] Comment: Supplemental ranges: <140 mg/dL before meals <180 mg/dL all other times of the day Blood specimen (specimen) 02/07/2020 8:48 PM EDT 02/07/2020 8:48 PM EDT Rell Gutierrez MD POINT OF CARE TEST O RDERABLES Performing Organization Address [facility]/ZIP Co de Phone Number [facility] [place] [address] * Potassium (02/07/2020 5:10 PM EDT) Potassium 4.0 3.5 - 5.0 mmol/L [facility] Comment: Please note: ??Patients [...] Gutierrez MD CHEMISTRY ORDERABLES Performing Organization Address [facility]/ZIP Co de Phone Number [facility] [place] [address] * (ABNORMAL) Troponin (02/07/2020 5:10 PM EDT) Troponin-T 0.27(H) 0.00 - 0.00 ng/mL [facility] Comment: The 99th percentile for Troponin T is less than 0.01 ng/mL, any detectable cTnT concentration using this assay should be considered elevated. According to the third universal definition of myocardial infarction the following criteria with a clinical presentation consistent with acute myocardial ischemia meets the diagnosis for a myocardial infarction (NE). Detection of a rise and/or fall of cTnT, with at least one value greater than the 99th percentile (> or = 0.01) and with at least one of the following ?? Symptoms of ischemia ?? New or presumed new significant HJ-jifhfkl-E wave (ST-T) changes or new left bundle [...] additional sample may be indicated. Reference: Third [place] Definition of Myocardial Infarction. Journal of the [place] [employer] 2012;60:1581-98 Blood specimen (specimen) 02/07/2020 5:10 PM EDT 02/07/2020 5:28 PM EDT Narrative Resulting Agency Comment Spec In Lab Vik Justin MD CHEMISTRY ORDER TOBI Performing Organization Address [facility] Co de Phone Number [facility] [place] [address] * XR Chest One View (02/07/2020 5:07 [...] signed by: Trace Lopez MD, [facility] ([phone]), at 02/08/2020 3:54 AM Narrative 02/08/2020 3:54 [...] signed by: Trace Lopez MD, [facility]([phone]), at 02/08/2020 3:54 AM Rell Gutierrez MD IMG DX ORDERABLES * POCT Glucose (02/07/2020 4:21 PM EDT) Glucose, POC 139 65 - 199 mg/dL [facility] Comment: Supplemental ranges: <140 mg/dL before meals <180 mg/dL all other times of the day Blood specimen (specimen) 02/07/2020 4:21 PM EDT 02/07/2020 4:21 PM EDT Rell Gutierrez MD POINT OF CARE TEST O RDERABLES Performing Organization Address City/State/[facility] Co de Phone Number [facility] [place] [address] * CARDIAC CATHETERIZATION (02/07/2020 3:21 PM EDT) Anatomical Region Laterality Modality Other Narrative 02/07/2020 4:29 PM EDT ?[facility] ? Cardiac Catheterization/Intervention Report ? Patient Name: Jarrett, Danielle ? Procedure Date: 02/07/2020 ? A #: [id number] ? Primary Physician: Jose, Todd T ? Case #: [id number] ? File Name: [id number] ? Catheterization Order Number: [id number] ? [facility] ? Final Report [place], [place] ? Patient Name: ? Danielle Jarrett ? ID#: ?[id number] ? : ?1960 ? Procedure Date: ? [...] ?was designated as ASA Class III. The [facility] clinical frailty scale is 5: ?Mildly [...] procedure was Urgent. The indication for ?the coreroom foundry laborer visit is worsening angina. Chest pain symptom [...] dose administered prior to arrival in the coreroom foundry laborer. ?Recommended anti-platelet/anti-thrombotic regimen: ?Start aspirin 81 mg [...] Procedure Note Todd Garcia MD - 03/23/2020 [facility] Cardiac Catheterization/Intervention Report Patient Name: Danielle Mills Procedure Date: 02/07/2020 A #: [id number] Primary Physician: Todd Garcia Case #: [id number] File Name: [id number] Catheterization Order Number: [id number] [facility] FinalReport [place], [place] Patient Name: Danielle Mills ID#:[id number] :1960 Procedure Date: February 07, 2020 Case [...] was designated as ASA Class III. The [facility] clinical frailty scale is5: Mildly Frail. Diagnostic Tests: Prior Coronary Angiography: LV ejection fraction within 6 months is 30%. Electrocardiography: EKG was assessed by ECG. EKG was Abnormal. EKG showed T-wave inversions and other abnormality. Medications Prior to Procedure: Aspirin, Beta Fernando and Statin. Indications for Diagnostic Cath: The priority of the diagnostic procedure was Urgent. The indicationfor the coreroom foundry laborer visit is worsening angina. Chest pain symptomassessment [...] the lesion was dilated using a 3.00mm [id number] MM balloon with a maximum inflation pressure [...] dose administered prior to arrival in the coreroom foundry laborer. Recommended anti-platelet/anti-thrombotic regimen: Start aspirin 81 mg [...] COVID-19 PCR (02/07/2020 12:30 PM EDT) Pathologist [facility] [place] SARS-CoV-2 RNA (Rapid) Not Detected Not Detected [facility] Comment: This result should [...] using the Simplexa COVID-19 Direct Assay by [employer] as authorized by the FDA issued Emergency [...] Information for Healthcare Professionals (https://www.cdc.gov/coronavirus/2019-ncov/hcp/index.html). SARS-CoV-2 Source [employer] F[employer]ISTING DE[employer]MENT [employer] [facility] Nasopharyngeal swab (specimen) 02/07/2020 12:30 PM EDT 02/07/2020 12:59 PM EDT Comment:Symptoms->Surveillan ce Narrative Resulting Agency Comment Spec In Lab Vik Justin MD MICROBIOLOGY - GENERAL ORDERABLES [facility] [place] [place] [address] * POCT Glucose (02/07/2020 10:58 AM EDT) Glucose, POC 115 65 - 199 mg/dL [facility] Comment: Supplemental ranges: <140 mg/dL before meals <180 mg/dL all other times of the day Blood specimen (specimen) 02/07/2020 10:58 AM EDT 02/07/2020 10:58 AM EDT Rell Gutierrez MD POINT OF CARE TEST O RDERABLES Performing Organization Address City/[facility]/ZIP Co de Phone Number [facility] [place] [address] * Lavender Tube HOLD (02/07/2020 10:55 AM EDT) Lavender Hold Sample in lab. [facility] Blood specimen (specimen) Venous Draw / Unknown 02/07/2020 10:55 AM EDT 02/07/2020 11:16 AM EDT Kayleigh Crook MD HEMATOLOGY ORDERABLE S Performing Organization Address [facility] Co de Phone Number [facility] [place] [address] * Phosphorus (02/07/2020 10:55 AM EDT) Phosphorus 3.0 2.5 - 4.5 mg/dL [facility] Blood specimen (specimen) 02/07/2020 10:55 AM EDT 02/07/2020 11:15 AM EDT Narrative Resulting Agency Comment Spec In Lab Rell Gutierrez MD CHEMISTRY ORDERABLES Performing Organization Address [facility] Co de Phone Number [facility] [place] [address] * Magnesium (02/07/2020 10:55 AM EDT) Magnesium 1.00 0.69 - 1.07 mmol/L [facility] Blood specimen (specimen) 02/07/2020 10:55 AM EDT 02/07/2020 11:15 AM EDT Narrative Resulting Agency Comment Spec In Lab Rell Gutierrez MD CHEMISTRY ORDERABLES Performing Organization Address [facility] Co de Phone Number [facility] [place] [address] * Heparin (unfractionated) Level (02/07/2020 10:55 AM EDT) UF Heparin 0.44 IU/mL [facility] Comment: Guidelines for therapeutic unfractionated [...] Lab Vik Justin MD HEMATOLOGY EDEN LOPES [facility] [place] [place] [address] * (ABNORMAL) Troponin (02/07/2020 10:55 AM EDT) [facility] Troponin-T 0.13(H) 0.00 - 0.00 ng/mL [facility] Comment: The 99th percentile for Troponin T is less than 0.01 ng/mL, any detectable cTnT concentration using this assay should be considered elevated. According to the third universal definition of myocardial infarction the following criteria with a clinical presentation consistent with acute myocardial ischemia meets the diagnosis for a myocardial infarction (NE). Detection of a rise and/or fall of cTnT, with at least one value greater than the 99th percentile (> or = 0.01) and with at least one of the following ?? Symptoms of ischemia ?? New or presumed new significant TK-yxqmoyw-M wave (ST-T) changes or new left bundle [...] additional sample may be indicated. Reference: Third [place] Definition of Myocardial Infarction. Journal of the [place] College [employer]iology 2012;60:1581-98 Blood specimen (specimen) 02/07/2020 10:55 AM EDT 02/07/2020 11:15 AM EDT Narrative Resulting Agency Comment Spec In Lab Vik Justin MD CHEMISTRY ORDER TOBI [facility] [place] [id number] * ECHO COMPLETE W CONTRAST (02/07/2020 10:46 AM EDT) EF 61 HEARTLAB SYSTEM Anatomical Region Laterality Modality Other 02/07/2020 Narrative 02/07/2020 1:49 PM EDT Procedure: ?Transthoracic Echocardiogram Patient: ?JARRETT Mcintosh ?(Age): 1960(59y) Med Rec#: ? [id number] ?Sex: ?F ? Site Loc: ? [facility] ?Ht / Wt: ??165(cm)/118(kg) Pt. Loc: ?CCU ? BSA: ?2.21 Study Date: ?? 02/07/2020 ?Pt. Type: Inpatient Tape: ? Referring: Rell Gutierrez ??([id number]) Referring: LISY Reading: Ruslan Mcfarlane ([id number]) Edge Bander Operator: Laura Brown Diagnosis: *Non-ST elevation (NSTEMI) myocardial [...] Vmax ?0.61 ? m/sec ? MV deceleration [id number] ?msec ? MV A-wave Vmax ?0.77 ? [...] ? Mid-Inferior ?Normal ? Mid-Inferoseptal ?Hypokinetic ? [place]-Septal ? Hypokinetic ? [place]-Anterior ? Akinetic ? [place]-Lateral ?Akinetic ? [place]-Inferior ? Hypokinetic ? [place]-Tip ?Akinetic ? This report has been electronically signed by: Ruslan Mcfarlane MD ? 02/07/2020 13:49:14 Images reviewed and interpretation verified [facility] Cardiac Ultrasound Laboratory Procedure Note Ruslan Mcfarlane MD - 02/07/2020 Procedure: Transthoracic Echocardiogram Patient: JARRETT BUSTILLO(Age): 1960(59y) [facility] Rec#: [id number] Sex: F Site Loc: [facility] Ht / Wt: 165(cm)/118(kg) Pt. Loc: CCU BSA: 2.21 Study Date: 02/07/2020 Pt. Type: Inpatient Tape: Referring: Rell Gutierrez ([id number]) Referring: LISY Reading: Ruslan Mcfarlane ([id number]) Edge Bander Operator: Laura Brown Diagnosis: *Non-ST elevation (NSTEMI) myocardial [...] MV E-wave Vmax 0.61 m/sec MV deceleration [id number] msec MV A-wave Vmax 0.77 m/sec MV [...] Normal Mid-Posterolateral Normal Mid-Inferior Normal Mid-Inferoseptal Hypokinetic [place]-Septal Hypokinetic [place]-Anterior Akinetic [place]-Lateral Akinetic [place]-Inferior Hypokinetic [place]-Tip Akinetic This report has been electronically signed [...] signed by: Varghese Richmond MD, [facility] ([phone]), at 02/07/2020 9:53 AM Narrative 02/07/2020 9:53 [...] signed by: Varghese Richmond MD, [facility]([phone]), at 02/07/2020 9:53 AM Vik Justin MD IMG DX ORDERABL ES * CARDIAC CATHETERIZATION (02/07/2020 9:00 AM EDT) Anatomical Region Laterality Modality Other Narrative 02/07/2020 9:04 AM EDT ?[facility] ? Cardiac Catheterization/Intervention Report ? Patient Name: Jarrett, Danielle ? Procedure Date: 02/07/2020 ? A #: [id number] ? Primary Physician: Jose, Todd T ? Case #: [id number] ? File Name: [id number] ? Catheterization Order Number: [id number] ? [facility] ? Final Report [place], [place] ? Patient Name: ? Danielle Mills ? ID#: ?[id number] ? : ?1960 ? Procedure Date: ? February 07, 2020 ? Case #: ? [id number] ? Room: ? 2 ? Case Physician: [...] procedure was Urgent. The indication for ?the coreroom foundry laborer visit is ACS less than or equal [...] 8Fr IABP was inserted via the right SPECIAL TAX AUDITOR using ultrasound guidance. ?The IABP was advanced via the right SPECIAL TAX AUDITOR into the distal aortic arch over ?a wire. ??After confirming position, the IABP was sutured in place and ?connected to the console. ??The counterpulsation was initiated and the ?patient was noted to become chest pain free. ?Successful inseriton of a 50cc IABP via an 8fr sheat in the right SPECIAL TAX AUDITOR. ?The attending physician was present for the entire procedure. ?Dr. Todd Garcia M.D. was present during the moderate sedation ?intraservice time as documented by the sedation nurse. ??Case time = 00:34. ?Dr. Todd Garcia M.D. performed the coronary angiography, left heart ?catheterization and IABP insertion in coreroom foundry laborer. ? Todd Garcia MDenysD. ? Electronically Signed by: Todd Garcia MDenysD. ? Report Finalized: 02/07/2020 ??08:57 ? Report Last Ammended: 03/23/2020 ??13:05 ? Procedure Note Todd Garcia MD - 03/23/2020 [facility] Cardiac Catheterization/Intervention Report Patient Name: Danielle Mills Procedure Date: 02/07/2020 A #: [id number] Primary Physician: Todd Garcia Case #: [id number] File Name: [id number] Catheterization Order Number: [id number] [facility] FinalReport [place], [place] Patient Name: Danielle Mills ID#:[id number] :1960 Procedure Date: February 07, 2020 Case [...] patient was designated as ASAClass IV. The [facility] clinical frailty scale is 5: Mildly Frail. Diagnostic Tests: Prior Coronary Angiography: LV ejection fraction within 6 months is 30%. Electrocardiography: EKG was assessed by ECG. EKG was Abnormal. EKG showed T-wave inversions. Medications Prior to Procedure: Aspirin and Statin. Indications for Diagnostic Cath: The priority of the diagnostic procedure was Urgent. The indicationfor the coreroom foundry laborer visit is ACS less than or equal [...] 8Fr IABP was inserted via the right SPECIAL TAX AUDITOR using ultrasoundguidance. The IABP was advanced via the right SPECIAL TAX AUDITOR into the distal aortic archover a wire. [...] angiography, leftheart catheterization and IABP insertion in coreroom foundry laborer. Todd Garcia M.D. Electronically Signed by: Todd Garcia M.D. Report Finalized: 02/07/2020 08:57 Report Last Ammended: 03/23/2020 13:05 Todd Garcia MD CARDIAC CATH ORDERAB LES * POCT Glucose (02/07/2020 7:32 AM EDT) Glucose, POC 147 65 - 199 mg/dL [facility] Comment: Supplemental ranges: <140 mg/dL before meals <180 mg/dL all other times of the day Blood specimen (specimen) 02/07/2020 7:32 AM EDT 02/07/2020 7:32 AM EDT Rell Gutierrez MD POINT OF CARE TEST O RDERABLES [facility] [place] [address] * (ABNORMAL) Hemoglobin A1c (02/07/2020 7:29 AM EDT) Hemoglobin A1c 6.8(H) 4.3 - 5.6 % [facility] Mellitus, Diabetes Care 2013; 36: Suppl. 1, S67-10 Estimated Average Glucose 147 mg/dL [facility] Comment: eAG equivalents [...] into estimated average glucose values. ??Diabetes Care 2008:31(8):6132-2082. Blood specimen (specimen) Venous Draw / Unknown 02/07/2020 7:29 AM EDT 02/07/2020 8:47 AM EDT Narrative Resulting Agency Comment Spec In Lab Keyon Foley MD CHEMISTRY ORDERABLES Performing Organization Address [facility] Co de Phone Number [facility] [place] [address] * Sedimentation rate (02/07/2020 7:29 AM EDT) [facility] Sedimentation Rate Automated 25 2 - 39 mm/hr [facility] Comment: Effective April 21, [...] MD HEMATOLOGY ORDERABLE S Performing Organization Address [facility] Co de Phone Number [facility] [place] [address] * (ABNORMAL) Hepatic Function Panel (02/07/2020 7:29 AM EDT) [facility] Protein, Total 6.0(L) 6.1 - 8.0 gm/dL [facility] Albumin 3.8 3.2 - 5.2 gm/dL [facility] Aspartate Aminotransferase 35(H) 0 - 30 unit/L [facility] Alanine Aminotransferase 36(H) 0 - 30 unit/L [facility] Alkaline Phosphatase 72 35 - 105 unit/L [facility] Bilirubin, Total 0.4 0.2 - 1.3 mg/dL [facility] Bilirubin, Direct 0.1 0.0 - 0.3 mg/dL [facility] Blood specimen (specimen) Venous Draw / Unknown 02/07/2020 7:29 AM EDT 02/07/2020 7:45 AM EDT Narrative Resulting Agency Comment Spec In Lab Rell Gutierrez MD CHEMISTRY ORDERABLES Performing Organization Address City/[facility]/ZIP Co de Phone Number [facility] [place] [address] * Lipase (02/07/2020 7:29 AM EDT) [facility] Lipase 28 0 - 60 unit/L [facility] Blood specimen (specimen) Venous Draw / Unknown 02/07/2020 7:29 AM EDT 02/07/2020 7:45 AM EDT Narrative Resulting Agency Comment Spec In Lab Rell Gutierrez MD CHEMISTRY ORDERABLES Performing Organization Address City/[facility] Co de Phone Number [facility] [place] [address] * (ABNORMAL) CRP, acute inflammation (02/07/2020 7:29 AM EDT) [facility] C-Reactive Protein 18.2(H) <=4.9 mg/L [facility] Blood specimen (specimen) Venous Draw / Unknown 02/07/2020 7:29 AM EDT 02/07/2020 7:45 AM EDT Narrative Resulting Agency Comment Spec In Lab Rell Gutierrez MD CHEMISTRY ORDERABLES Performing Organization Address City/[facility]/ZIP Co de Phone Number [facility] [place] [address] * Differential, Automated (02/07/2020 7:29 AM EDT) [facility] Neutrophil % 64.8 % [facility] Neutrophil Absolute 5.08 1.70 - 6.10 x10(3)/mcL [facility] Lymph % 27.1 % [facility] Lymphocytes Abs 2.1 0.9 - 3.2 x10(3)/[facility] Monocyte % 6.8 % [facility] Monocyte Abs 0.5 0.3 - 0.9 x10(3)/[facility] Eos % 0.5 % [facility] Eosinophils Abs 0.0 0.0 - 0.4 x10(3)/[facility] Basophil % 0.5 % [facility] Baso Absolute 0.0 0.0 - 0.1 x10(3)/[facility] Immature Gran % 0.30 % [facility] Comment: Immature granulocytes(IG's)percentage and absolute count will include metamyelocytes, myelocytes, and promyelocytes. Blood smears from CBCs yielding IG's will be scanned manually for concordance. If this scan disagrees with the automated IG or if promyelocytes are noted, a manual differential will be performed. Immature Gran Absolute 0.02 0.00 - 0.04 x10(3)/[facility] Blood specimen (specimen) 02/07/2020 7:29 AM EDT 02/07/2020 7:45 AM EDT Narrative Resulting Agency Comment Spec In Lab Vik Justin MD HEMATOLOGY EDEN LOPES [facility] [place] [place] [address] * (ABNORMAL) Hemogram (02/07/2020 7:29 AM EDT) White Blood Cell 7.8 4.0 - 9.5 x10(3)/ L [facility] Red Blood Cell 5.33(H) 4.00 - 5.21 x10(6)/mc L [facility] Hemoglobin 13.7 11.7 - 15.5 gm/dL [facility] Hematocrit 45.2 35.7 - 45.8 % [facility] Mean Cell Volume 84.8 82.6 - 94.4 fL [facility] Mean Cell Hemoglobin 25.7(L) 27.1 - 32.0 pg [facility] Mean Cell Hemoglobin Concentration 30.3(L) 31.7 - 35.0 gm/dL [facility] Platelet 173 145 - 357 x10(3)/mc L [facility] RDW Standard Deviation 43.9 37.0 - 46.0 fL [facility] RDW coefficient of variation 14.2(H) 11.5 - 14.1 % [facility] Mean Platelet Volume 11.0 7.6 - 12.9 fL [facility] NRBC% auto 0.0 % [facility] NRBC Absolute 0.000 0.000 - 0.000 x10(3)/mc L [facility] Blood specimen (specimen) 02/07/2020 7:29 AM EDT 02/07/2020 7:45 AM EDT Narrative Resulting Agency Comment Spec In Lab Vik Justin MD HEMATOLOGY EDEN LOPES [facility] [place] [place] [address] * Prothrombin Time (02/07/2020 7:29 AM EDT) Prothrombin Time 11.8 9.4 - 12.5 sec [facility] International Normalization Ratio 1.0 [facility] Comment: An INR <2.0 [...] Lab Vik Justin MD HEMATOLOGY ORDE RABLES [facility] [place] [address] * (ABNORMAL) pro-Brain Natriuretic Peptide (02/07/2020 7:29 AM EDT) NT-proBNP 893(H) <=125 pg/mL [facility] Blood specimen (specimen) 02/07/2020 7:29 AM EDT 02/07/2020 7:45 AM EDT Narrative Resulting Agency Comment Spec In Lab Vik Justin MD CHEMISTRY ORDER TOBI Performing Organization Address City/[facility]/ZIP Co de Phone Number [facility] [place] [address] * Lipid Panel (Reflex Direct LDL) (02/07/2020 7:29 AM EDT) Cholesterol, Total 186 mg/dL [facility] Comment: Lower Risk: <200 mg/dL Average Risk: 200-239 mg/dL Higher Risk: >zv=300 mg/dL Triglyceride 161 mg/dL [facility] Comment: Average Risk/Lower Risk: <150 mg/dL Borderline High Risk: 150-199 mg/dL High Risk: 200-499 mg/dL Very High Risk: >yl=628 mg/dL HDL Cholesterol 34 mg/dL [facility] Comment: Males: ?? Higher Risk: <40 mg/dL Females: ?? HIgher Risk: <50 mg/dL LDL Cholesterol 120 mg/dL [facility] Comment: Lowest Risk: <100 mg/dL Lower Risk: 100-129 mg/dL Borderline High Risk: 130-159 mg/dL High Risk: 160-189 mg/dL Very High Risk: >vz=354 mg/dL Cholesterol/HDL Ratio 5.5 ratio [facility] Lipid Interpretation See Note [facility] Comment: Lipid management should be guided by a patient? s ASCVD risk, goals and preferences. ACC/AHA Guidelines recommend high intensity statin if clinical ASCVD or LDL greater than or equal to 190 mg/dL. http://Cellworksurl.com/VIW-PCF-Erpfydnbc Adults aged 40-75 with LDL 70-189 mg/dL should have their 10 year ASCVD risk estimated with the ACC/AHA ASCVD risk job estimator http://tools.acc.org/RLHPY-Vmqq-Vnwwlvaxv/ Statin should be discussed if risk greater [...] MD CHEMISTRY ORDER TOBI Performing Organization Address City/[facility]/ZIP Co de Phone Number [facility] [place] [address] * TSH (02/07/2020 7:29 AM EDT) Thyroid Stimulating Hormone 1.30 0.27 - 4.20 mcIU/mL [facility] Blood specimen (specimen) 02/07/2020 7:29 AM EDT 02/07/2020 7:45 AM EDT Narrative Resulting Agency Comment Spec In Lab Vik Justin MD CHEMISTRY ORDER TOBI Performing Organization Address City/[facility]/ZIP Co de Phone Number [facility] [place] [address] * (ABNORMAL) Troponin (02/07/2020 7:29 AM EDT) Troponin-T 0.10(H) 0.00 - 0.00 ng/mL [facility] Comment: Called by: graciela, Read back by: edita yates (atmospheric physics professor), Date/Time:_02/07/20 08:14. The 99th percentile for Troponin T is less than 0.01 ng/mL, any detectable cTnT concentration using this assay should be considered elevated. According to the third universal definition of myocardial infarction the following criteria with a clinical presentation consistent with acute myocardial ischemia meets the diagnosis for a myocardial infarction (NE). Detection of a rise and/or fall of cTnT, with at least one value greater than the 99th percentile (> or = 0.01) and with at least one of the following ?? Symptoms of ischemia ?? New or presumed new significant KI-edodngk-D wave (ST-T) changes or new left bundle [...] additional sample may be indicated. Reference: Third [place] Definition of Myocardial Infarction. Journal of the [place] College [employer] 2012;60:1581-98 Blood specimen (specimen) 02/07/2020 7:29 AM EDT 02/07/2020 7:45 AM EDT Narrative Resulting Agency Comment Spec In Lab Vik Justin MD CHEMISTRY ORDER TOBI [facility] [place] [address] * (ABNORMAL) BMP w/fasting Glucose (02/07/2020 7:29 AM EDT) Glucose Fasting 155(H) 65 - 99 mg/dL [facility] Comment: ?Fasting* Glucose Interpretive [...] of Diabetes Mellitus, Position Statement from the [place] [employer]. ??Diabetes Care, Volume 33, Supplement 1, May 2009 Blood Urea Nitrogen 7(L) 8 - 18 mg/dL [facility] Creatinine 0.69(L) 0.70 - 1.20 mg/dL [facility] Sodium 139 135 - 145 mmol/L [facility] Potassium 4.1 3.5 - 5.0 mmol/L [facility] Comment: Please note: ??Patients with WBC >100,000 may have falsely elevated Potassium levels. ??For accurate Potassium quantification in these patients send serum separator tube (gold top) for subsequent determinations. ??Contact the Clinical Chemistry Laboratory if there are any questions. Chloride 105 98 - 107 mmol/L [facility] Carbon Dioxide 21(L) 22 - 31 mmol/L [facility] Anion Gap 13 5 - 15 mmol/L [facility] Calcium 8.1(L) 8.5 - 10.5 mg/dL [facility] Est Glomerular Filtration Rate 96 >=60 mL/min/1. 73 m?? [facility] Comment: The eGFR was calculated using the CKD-EPI equation. As with all creatinine based estimates of kidney function, eGFR values calculated with the CKD-EPI equation are not accurate in patients with acute kidney failure, extremes of body mass or the acutely ill. [email or web address]/[facility]nkf eGFR 111 >=60 mL/min/1. 73 m?? [facility] Comment: The eGFR was calculated using the CKD-EPI equation. As with all creatinine based estimates of kidney function, eGFR values calculated with the CKD-EPI equation are not accurate in patients with acute kidney failure, extremes of body mass or the acutely ill. [email or web address]/[facility]nk[facility] Blood specimen (specimen) 02/07/2020 7:29 AM EDT 02/07/2020 7:45 AM EDT Narrative Resulting Agency Comment Spec In Lab Vik Justin MD CHEMISTRY ORDER TOBI [facility] [place] [address] * EKG 12 Lead (02/07/2020 6:33 AM EDT) Ventricular rate 80 BPM MUSE SYSTEM Atrial Rate 80 BPM MUSE SYSTEM P-R Interval 150 ms MUSE SYSTEM QRS Duration 82 ms MUSE SYSTEM Q-T Interval 426 ms MUSE SYSTEM QTC Calculated (Bezet) 491 ms MUSE SYSTEM Calculated P [place] 54 degrees MUSE SYSTEM Calculated R [place] 6 degrees MUSE SYSTEM Calculated T [place] 103 degrees MUSE SYSTEM INTERPRETATION Normal sinus rhythm Anterior infarct , age undetermined Possible Left atrial enlargement T wave abnormality, consider lateral ischemia Abnormal ECG No previous ECGs available I personally reviewed the tracing and edited the fellows interpretation Confirmed by fellow Fabian Waters ([id number]) on 02/07/2020 2:39:52 PM Confirmed by MD MUSA DAVID ([id number]) on 02/08/2020 5:36:22 PM MUSE SYSTEM 02/07/2020 6:33 AM EDT 02/08/2020 5:36 PM EDT Vik Justin MD ECG ORDERABLES Performing Organization Address City/[facility] Co de Phone Number MUSE SYSTEM documented [...] Oral, EVERY 6 HOURS PRN, Starting on 02/07/20 at 1017, Until Fri02/09/20 at 1430, Pain, [...] RN - Reason: Order parameters not met)1401 (MAR Hold - Provider: Admin Adt - [...] Maribel Babcock, SHAR)1813 (Given - Provider: Maribel Babcock RN)2059 (Given [...] Procedural area)1549 (MAR Unhold - Provider: Admin Adt)2036 (Given - [...] Maribel Babcock, SHAR)2355 (Given - Provider: Gamaliel Shelton, SHAR) 0518 (Given - Provider: Gamaliel Shelton, SHAR) metoprolol tartrate (Lopressor) tablet 25 mg 25 [...] area)1549 (MAR Unhold - Provider: Admin Adt) 08 (Given - Provider: Maribel Babcock, SHAR) 0817 [...] Reason: Contraindicated)2215 (Not Given - Provider: Lissa Sabiloln RN - Reason: See comment - Comment: [...] Procedural area)1549 (MAR Unhold - Provider: Admin Adt)2037 (Given - Provider: Lissa Sabillon RN) 0807 (Given - Provider: Maribel Babcock RN)2100 (Given - Provider: Gamaliel Shelton RN) [...] (Rate/Dose Verify - Provider: Alyce Navarro RN)1401 (MAR Hold - Provider: Admin Adt - Reason: Transfer to a Procedural area)1549 (BANNER Unhold - Provider: Admin Adt)1600 (Rate/Dose Verify [...] 1049 (Given - Provider: Alyce Navarro RN)1401 (BANNER Hold - Provider: Admin Adt - Reason: Transfer to a Procedural area)1549 (BANNER Unhold - Provider: Admin Adt) 0109 (Given - Provider: Lissa Sabillon RN) clonazePAM (KlonoPIN) tablet 0.5 mg 0.5 mg, Oral, 2 TIMES DAILY PRN, Starting on Fri02/07/20 at 0921, Until Fri02/09/20 at 1430, Anxiety, DO NOT SPLIT, CRUSH OR OPEN, Routine 1401 (BANNER Hold - Provider: Admin Adt - Reason: Transfer to a Procedural area)1549 (BANNER Unhold - Provider: Admin Adt) cyclobenzaprine (Flexeril) tablet 10 mg 10 mg, Oral, 3 TIMES DAILY PRN, Starting on Fri02/07/20 at 0921, Until Fri02/09/20 at 1430, Muscle spasms, Routine 1401 (BANNER Hold - Provider: Admin Adt - Reason: Transfer to a Procedural area)1549 (BANNER Unhold - Provider: Admin Adt) dextrose 10% [...] the duration of the active insulin. 0755 (JUL Hold - Provider: Admin Adt - Reason: Transfer to a Procedural area)0906 (BANNER Unhold - Provider: Admin Adt)1401 (BANNER Hold - Provider: Admin Adt - Reason: Transfer to a Procedural area)1549 (BANNER Unhold - Provider: Admin Adt) fentaNYL (PF) [...] Routine 08 (Given - Provider: Maxime Trujillo RN)08 (Given - Provider: Maxime H Cassandra, RN)0829 (Given - Provider: Elsie Camacho RN) [...] of tube = 37.5 grams., Routine 0755 (BANNER Hold - Provider: Admin Adt - Reason: Transfer to a Procedural area)0906 (BANNER Unhold - Provider: Admin Adt)1401 (BANNER Hold - Provider: Admin Adt - Reason: Transfer to a Procedural area)1549 (BANNER Unhold - Provider: Admin Adt) heparin (porcine) [...] (Intra-Procedure), Routine 1509 (Given - Provider: Elsie Camacho, SHAR) nicotine polacrilex (NICORETTE) gum 2 mg 2 mg, Buccal, EVERY 2 HOURS PRN, Starting on Fri02/08/20 at 0157, Until Fri02/09/20 at 1430, Smoking cessation, Chew gum slowly. Do not swallow. Maximum of 48 mg/day., Routine 2100 (Given - Provider: Gamaliel Shelton, SHAR) nitroGLYcerin 100 mcg/mL intracoronary dilution (CANCELED) ONCE [...] Routine 1543 (New Bag - Provider: Ekaterina Romo, SHAR)1700 (Rate/Dose Change - Provider: Alyce Navarro, SHAR)1728 (Rate/Dose Change - Provider: Alyce Navarro, SHAR) potassium chloride ER (K-Dur/Klor-Con) tablet 20 mEq(Linked [...] Routine documented in this encounter Care Teams Analyst Relationship Specialty Start Date End Date Francy Lowe APRN PCP - General Family Medicine 10/19/19 02/11/21 documented as of this encounter
--- OUTSIDE RECORDS SUMMARY | 2024-05-21 20:18 | XMS_ITS | Encounter Summary ---
Author Organization [facility] [place] [address] Care Team Providers Care Steamboat Pilot Name Role Phone Radha Fry MD Primary Care Provider [phone] Reason for Visit * Reason Comments Left Knee Pain * High Dollar Medication (Urgent) - Closed Specialty Diagnoses / Procedures Referred By Jasson mendoza Referred To Contact Orthopaedics Diagnoses left knee osteoarthrtitis Procedures TC SYNVISC/SYNVISC-ONE, 1MG, INTRA-ARTICULAR INJECTION Left knee Synvsic [facility] Orthopaedics [address] [place] [phone] Referral ID Status Reason Start Date Expiration Date V isits Requested Visits Authorized [id number] Closed Evaluate and Treat 03/19/2018 03/19/2019 1 1 Encounter Details Date Type Department Care Team ([facility] Contact Info) Description 03/26/2018 1:30 PM EST Office Visit Orthopaedics at [address] [phone] Elvin Whiting MD [address] [place] [address] [place] [address] Primary osteoarthritis of left knee; Left knee [...] Instructions * Patient Instructions* Pinky Walters - 03/26/2018 1:30 PM EST FOLLOW UP NEEDED, [...] mg documented in this encounter Care Teams Ste[place]oat Pilot Relationship Specialty Start Date End Date Radha Fry MD PCP - General 07/22/11 11/17/18 documented as of this encounter
--- OUTSIDE RECORDS SUMMARY | 2024-05-21 20:18 | XMS_ITS | Encounter Summary ---
Author Organization [facility] [place] [address] Care Team Providers Care Process Inspector Name Role Phone Steven Jeffries MD Primary Care Provider Encounter Details Date Type Department Care Team (Latest Contact Info) Description 11/19/2018 11:59 AM EDT - 11/19/2018 2:02 PM EDT Hospital Encounter [place] [address] Nimesh Alicia MD [facility] [place] [address] Discharge Disposition: Home Social History Tobacco Use [...] better as expected. Friday-Friday Same Day Endo [phone]-[phone] Otherwise contact [phone] and ask to speak to the operations program manager virtualization architect Follow-up care is a prasad part of [...] ??? Carpal tunnel syndrome G56.00 ??? Cystocele [id number] ??? Degeneration of intervertebral disc of lumbar [...] Alicia MD - 11/19/2018 1:32 PM EDT [facility] Operative Note Patient Name: Danielle Mills : [id number] MR#: [id number] Case Date: 11/19/2018 Surgeon: Surgeon(s) and Role: [...] MD PATHOLOGY/CYTOLOGY O MARIANO Performing Organization Address [facility] [place] [address] * Specimen to Pathology (11/19/2018 1:26 PM EDT) AP Specimen 11/19/2018 1:26 PM EDT 11/19/2018 1:26 PM EDT Narrative [facility] - 11/19/2018 1:26 PM EDT Specimen requisition ordered. ??Separate Pathology report to follow Nimesh Alicia MD PATHOLOGY/CYTOLOGY O MARIANO Performing Organization Address [facility] [place] [address] * Specimen to Pathology (11/19/2018 1:26 PM EDT) AP Specimen 11/19/2018 1:26 PM EDT 11/19/2018 1:26 PM EDT Narrative [facility] - 11/19/2018 1:26 PM EDT Specimen requisition ordered. ??Separate Pathology report to follow Nimesh Alciia MD PATHOLOGY/CYTOLOGY O MARIANO Performing Organization Address [facility] [place] [address] * Specimen to Pathology (11/19/2018 1:26 PM EDT) AP Specimen 11/19/2018 1:26 PM EDT 11/19/2018 1:26 PM EDT Narrative [facility] - 11/19/2018 1:26 PM EDT Specimen requisition ordered. ??Separate Pathology report to follow Nimesh Alicia MD PATHOLOGY/CYTOLOGY O RDADOLFO [facility] [place] [address] * Surgical Pathology Report (11/19/2018 1:14 PM EDT) Final Diagnosis [id number] ? Location: 4T; 07; A The signing pathologist has (i) examined [...] Merrill MD Verified: ??11/20/2018 ?Pathologist Performed at: ??-[facility] Dept. of Pathology, [place], [place] CLINICAL INFORMATION Specimen Submitted: A - [...] toto ??in 1 cassette labeled D1. ??apb 11/20/2018 10:46 AM EDT [facility] GI Biopsy 11/19/2018 1:14 PM EDT 11/19/2018 1:14 PM EDT GI Biopsy 11/19/2018 1:14 PM EDT 11/19/2018 1:14 PM EDT GI Biopsy 11/19/2018 1:14 PM EDT 11/19/2018 1:14 PM EDT GI Biopsy 11/19/2018 1:14 PM EDT 11/19/2018 1:14 PM EDT Nimesh Alicia MD PATHOLOGY/CYTOLOGY O RDERABLES Performing Organization Address [facility]/State/ZIP Co de Phone Number [facility] [place] [address] * UPPER GI ENDOSCOPY (11/19/2018 12:41 PM EDT) UPPER GI ENDOSCOPY [facility] Endoscopy ___ Procedure Date: 11/19/2018 12:41 PM ? Patient Name: Danielle Mills ? Date of : 1960 ? Age: 58 ? Order #: [id number] ? Instrument Name: [id number] [facility] ? ___ Procedure: ? Upper GI endoscopy [...] GENERAL SURGICAL ORD ERABLES Performing Organization Address [facility] de Phone Number PROVATION * POCT Glucose (11/19/2018 12:17 PM EDT) Glucose, POC 90 65 - 199 mg/dL [facility] Comment: Supplemental ranges: <140 mg/dL before meals <180 mg/dL all other times of the day Blood specimen (specimen) 11/19/2018 12:17 PM EDT 11/19/2018 12:17 PM EDT Nimesh Alicia MD POINT OF CARE TEST O RDERATRAY Performing Organization Address [facility]/[place] [address] documented in this encounter Visit Diagnoses Not on filedocumented in this encounter Active and Recently Administered Medications Care Teams Process Inspector Relationship Specialty Start Date End Date Steven Jeffries MD [address] [place] [id number] PCP - General General Internal Medicine 11/18/1810/17 documented as of this encounter
--- OUTSIDE RECORDS SUMMARY | 2024-05-21 20:18 | XMS_ITS | Encounter Summary ---
Author Organization [facility] Address [facility] [place] [address] Care Team Providers Care Bilingual Sales Representative Name Role Phone Steven Jeffries MD Primary Care Provider Encounter Details Date Type Department Care Team (Late st Contact Info) Description 11/19/2018 1:00 PM EDT - 11/19/2018 1:30 PM EDT Surgery [place] [address] Nimesh Alicia MD [facility] [place] [address] EGD WITH BIOPSY (WRVU 2.39) Social History [...] better as expected. Friday-Friday Same Day Endo [phone] Otherwise contact [phone] and ask to speak to the supervisor photoengraving manager non profit Follow-up care is a prasad part of [...] ??? Carpal tunnel syndrome G56.00 ??? Cystocele [id number] ??? Degeneration of intervertebral disc of lumbar [...] Alicia MD - 11/19/2018 1:32 PM EDT [facility] Operative Note Patient Name: Danielle Mills : [id number] MR#: [id number] Case Date: 11/19/2018 Surgeon: Surgeon(s) and Role: [...] PM EDT 11/19/2018 1:26 PM EDT Narrative [facility] - 11/19/2018 1:26 PM EDT Specimen requisition ordered. ??Separate Pathology report to follow Nimesh Alicia MD PATHOLOGY/CYTOLOGY O MARIANO Performing Organization Address [facility]/[place] [address] * Specimen to Pathology (11/19/2018 1:26 PM EDT) AP Specimen 11/19/2018 1:26 PM EDT 11/19/2018 1:26 PM EDT Narrative [facility] - 11/19/2018 1:26 PM EDT Specimen requisition ordered. ??Separate Pathology report to follow Nimesh Alicia MD PATHOLOGY/CYTOLOGY O MARINAO Performing Organization Address [facility]/ZIP Co de Phone Number [facility] [place] [address] * Specimen to Pathology (11/19/2018 1:26 PM EDT) AP Specimen 11/19/2018 1:26 PM EDT 11/19/2018 1:26 PM EDT Narrative [facility] - 11/19/2018 1:26 PM EDT Specimen requisition ordered. ??Separate Pathology report to follow Nimesh Alicia MD PATHOLOGY/CYTOLOGY O MARIANO Performing Organization Address [facility] [place] [address] * Specimen to Pathology (11/19/2018 1:26 PM EDT) AP Specimen 11/19/2018 1:26 PM EDT 11/19/2018 1:26 PM EDT Narrative [facility] - 11/19/2018 1:26 PM EDT Specimen requisition ordered. ??Separate Pathology report to follow Nimesh Alicia MD PATHOLOGY/CYTOLOGY O MARIANO [facility] [place] [address] * Surgical Pathology Report (11/19/2018 1:14 PM EDT) Final Diagnosis [id number] ? Location: 4T; EA07; A The signing [...] Merrill MD Verified: ??11/20/2018 ?Pathologist Performed at: ??-[facility] Dept. of Pathology, [place], [place] CLINICAL INFORMATION Specimen Submitted: A - [...] labeled D1. ??apb 11/20/2018 10:46 AM EDT [facility] GI Biopsy 11/19/2018 1:14 PM EDT 11/19/2018 1:14 PM EDT GI Biopsy 11/19/2018 1:14 PM EDT 11/19/2018 1:14 PM EDT GI Biopsy 11/19/2018 1:14 PM EDT 11/19/2018 1:14 PM EDT GI Biopsy 11/19/2018 1:14 PM EDT 11/19/2018 1:14 PM EDT Nimesh Alicia MD PATHOLOGY/CYTOLOGY O RDERABLES [facility] [place] [address] * UPPER GI ENDOSCOPY (11/19/2018 12:41 PM EDT) UPPER GI ENDOSCOPY [facility] Endoscopy ___ Procedure Date: 11/19/2018 12:41 PM ? Patient Name: Danielle Mills ? Date of : 1960 ? Age: 58 ? Order #: [id number] ? Instrument Name: [id number] LOANER ? ___ Procedure: ? Upper GI [...] GENERAL SURGICAL ORD ERABLES Performing Organization Address [facility] Co de Phone Number [employer]OVATION * POCT Glucose (11/19/2018 12:17 PM EDT) Glucose, POC 90 65 - 199 mg/dL [facility] Comment: Supplemental ranges: <140 mg/dL before meals <180 mg/dL all other times of the day Blood specimen (specimen) 11/19/2018 12:17 PM EDT 11/19/2018 12:17 PM EDT Nimesh Alicia MD POINT OF CARE TEST O RDERABLES [facility] [address] [place] [address] documented in this encounter Visit Diagnoses Not on filedocumented in this encounter Active and Recently Administered Medications Care Teams Bilingual Sales Representative Relationship Specialty Start Date End Date Steven Jeffries MD [address] [place] [address] PCP - General General Internal Medicine 11/18/1810/17 documented as of this encounter
--- OUTSIDE RECORDS SUMMARY | 2024-05-21 20:18 | XMS_ITS | Encounter Summary ---
Author Organization [facility] Address [facility] [place] [address] Care Team Providers Care Deputy Sheriff/Investigator Name Role Phone Francy Lowe APRN Primary Care Provider + Reason for Visit * Consultation (Routine) - Specialty Diagnoses / Procedures Referred By Jasson mendoza Referred To Contact Endocrinology Diagnoses Autoimmune thyroiditis Francy Lowe APRN [address] [place] [address] [facility] Endocrinology [address] [place] [address] Referral ID Status Reason Start Date Expiration Date V isits Requested Visits Authorized [id number] Consult, Test & Treat Connection Center PCP Updated and/or Approved 10/19/2019 10/18/2020 1 1 Encounter Details Date Type Department Care Team (Latest Contact Info) Description 10/21/2019 10:30 AM EDT TH Visit (TeleHealth) [place] [address] Marta Cabral MD [facility] [place] [address] Delano's thyroiditis Social History Tobacco [...] thyroid size and to r/o nodule at [facility] as scheduled tomorrow. 4. RTC: As needed [...] PCP already arranged for thyroid US at [facility] tomorrow. Recent labs: 06/03/19 10/13/19 TSH 2.25 [...] ??? Carpal tunnel syndrome G56.00 ??? Cystocele [id number] ??? Depression, anxiety, insomnia, PTSD F32.9 ??? [...] voice or stridor. Deferred. Thyroid US at [facility] Radiology - pending for the report tomorrow [...] thyroid size and to r/o nodule at [facility] as scheduled tomorrow. 4. RTC: As needed [...] the ultrasound results and already told my litigation secretary to schedule 6 month follow-up so I can ultrasound by myself and show you at next clinic visit directly. Ok to call my litigation secretary at [phone] next week if you have not heard [...] function? My chiropractor is also a nutrition counselor. I figured I???d run it by her [...] thyroiditis documented in this encounter Care Teams Deputy Sheriff/Investigator Relationship Specialty Start Date End Date Francy Lowe APRN PCP - General Family Medicine 10/19/19 02/11/21 documented as of this encounter
--- OUTSIDE RECORDS SUMMARY | 2024-05-21 20:18 | XMS_ITS | Encounter Summary ---
[place] [address] Care Team Providers Care Environmental Geologist Name Role Phone Francy Lowe APRN Primary Care Provider + Encounter Details Date Type Department Care Team (Late st Contact Info) Description 12/08/2019 Telephone [place] [phone] Reid Mondragon RN Social History Tobacco Use [...] Relayed Dr Cabral's info to pt via [employer] message and Kimber Rivera via TC. Pending [...] glimepiride. This was largely outlined in the [employer] message sent to the patient today at [...] on filedocumented in this encounter Care Teams Environmental Geologist Relationship Specialty Start Date End Date Francy Lowe APRN PCP - General Family Medicine 10/19/19 02/11/21 documented as of this encounter
--- OUTSIDE RECORDS SUMMARY | 2024-05-21 20:18 | XMS_ITS | Encounter Summary ---
Author Organization [facility] [place] [address] Care Team Providers Care City Treasurer Name Role Phone Francy Lowe APRN Primary Care Provider + Encounter Details Date Type Department Care Team (Late st Contact Info) Description 12/06/2019 11:00 AM EDT Office [place] [address] Marta Cabral MD [facility] [place] [address] Delano's thyroiditis; Vitamin D deficiency; Controlled type [...] and occasional difficulty swallowing. Thyroid US at [facility] on 10/22/19 showed a Rt [...] the ultrasound results and already told my medical unit secretary to schedule 6 month follow-up so I can ultrasound by myself and show you at next clinic visit directly. Ok to call my medical unit secretary at [phone] next week if you have not heard [...] thyroid function? My chiropractor is also a community outreach specialist. I figured I???d run it by her [...] ??? Carpal tunnel syndrome G56.00 ??? Cystocele [id number] ??? Depression, anxiety, insomnia, PTSD F32.9 ??? [...] file Gets together: Not on file Attends synagogue service: Not on file Active member of [...] No proximal muscle weakness. Thyroid US at [facility] Radiology (10/22/19) before taking thyroid [...] suspicious. Comparison: 10/22/19 US from outside at [facility]. Procedure: Real-time ultrasonography limited to the thyroid gland and lateral neck area with and without color doppler were obtained using a Desall Flex Focus 400 US machine and an [...] B12 is good and still waiting for Adriana DIAGNOSIS: 59 y.o. lady with confirmed Delano's [...] year at our office by the same sueding machine operator. 4. RTC: 3 mo to assess [...] Free T4 0.80(L) 0.93 - 1.70 ng/dL [facility] Blood specimen (specimen) 12/06/2019 12:06 PM EDT 12/06/2019 12:23 PM EDT Narrative Resulting Agency Comment Spec In Lab Marta Cabral MD CHEMISTRY ORDERAB LES [facility] [place] [address] * TSH (12/06/2019 12:06 PM EDT) Thyroid Stimulating Hormone 1.75 0.27 - 4.20 mcIU/mL [facility] Blood specimen (specimen) 12/06/2019 12:06 PM EDT 12/06/2019 12:23 PM EDT Narrative Resulting Agency Comment Spec In Lab Marta Cabral MD CHEMISTRY ORDERAB LES Performing Organization Address City/[facility]/ZIP Co de Phone Number [facility] [place] [address] * Vitamin B12 (12/06/2019 12:06 PM EDT) Vitamin B12 617 232 - 1,245 pg/mL [facility] Blood specimen (specimen) 12/06/2019 12:06 PM EDT 12/06/2019 12:23 PM EDT Narrative Resulting Agency Comment Spec In Lab Marta Cabral MD CHEMISTRY ORDERAB LES [facility] [place] [address] * Vitamin D, 25-Hydroxy (12/06/2019 12:06 PM EDT) Vitamin D Total 25 OH 29 21 - 100 ng/mL [facility] Comment: Please note, effective September 15, 2019, additional result field for Vitamin D Interpretation, and updated flagging notification. Vit D Interp Insufficient [facility] Blood specimen (specimen) 12/06/2019 12:06 PM EDT 12/06/2019 12:23 PM EDT Narrative Resulting Agency Comment Spec In Lab Marta Cabral MD CHEMISTRY ORDERAB LES [facility] [place] [address] documented in this encounter Visit Diagnoses Diagnosis [...] uncontrolled documented in this encounter Care Teams City Treasurer Relationship Specialty Start Date End Date Francy Lowe APRN PCP - General Family Medicine 10/19/19 02/11/21 documented as of this encounter
--- OUTSIDE RECORDS SUMMARY | 2024-05-21 20:18 | XMS_ITS | Encounter Summary ---
Author Organization [facility] [place] [address] Care Team Providers Care Passenger Attendant Name Role Phone Francy Lowe APRN Primary Care Provider + Encounter Details Date Type Department Care Team (Late st Contact Info) Description 02/07/2020 3:00 AM EDT Ancillary Procedure Radiology Library at [facility] [place] [address] Francy Lowe APRN [address] [id number] Social History Tobacco Use Types Packs/Day Years [...] Abdomen Pelvis (02/07/2020 2:56 AM EDT) Narrative [facility] - 02/07/2020 2:56 AM EDT This exam is auto-finalizing. It's purpose is for storage only. Francy Lowe APRN [facility] FILM LIBRARY ORD ERABLES [facility] [place], [place] documented in this encounter Visit Diagnoses Not on filedocumented in this encounter Care Teams Passenger Attendant Relationship Specialty Start Date End Date Francy Lowe APRN PCP - General Family Medicine 10/19/19 02/11/21 documented as of this encounter
--- OUTSIDE RECORDS SUMMARY | 2024-05-21 20:18 | XMS_ITS | Encounter Summary ---
[place] [address] Care Team Providers Care Accounts Payable Or Receivable Clerk Name Role Phone Steven Jeffries MD Primary Care Provider Encounter Details Date Type Department Care Team (Late st Contact Info) Description 08/13/2019 Telephone [place] [address] Lisa Reza Social History Tobacco Use Types [...] on filedocumented in this encounter Care Teams Accounts Payable Or Receivable Clerk Relationship Specialty Start Date End Date Steven Jeffries MD [address] [place] [address] PCP - General General Internal Medicine 11/18/1810/17 documented as of this encounter
--- OUTSIDE RECORDS SUMMARY | 2024-05-21 20:18 | XMS_ITS | Encounter Summary ---
Author Organization [facility] Address [facility] [place] [address] Care Team Providers Care Manager Assembly Name Role Phone Steven Jeffries MD Primary Care Provider [phone] Encounter Details Date Type Department Care Team (Late st Contact Info) Description 11/19/2018 12:57 PM EDT Anesthesia [place] [address] Lorenzo Cotto MD [facility] [place] [address] Kayli Ferrera CRNA Anesthesia Record Procedure Summary Procedure Name Responsible [...] 1257; metacarpal vein (top of hand), left; mmft-owj-uyehtb catheter system; 20 gauge; distraction; 11/19/18; 1353 [...] Procedure Summary Date: 11/19/18 Room / Location: [facility] 6 / [facility] Anesthesia Start: 1257 Anesthesia Stop: 1326 Procedure: EGD WITH BIOPSY (WRVU 2.49) (N/A ) Diagnosis: (hx of Johnson's) Surgeon: Nimesh Alicia MD Responsible Provider: Lorenzo Cotto MD Anesthesia Type: MAC ASA Status: 2 All Anesthesia Providers: Anesthesiologist: Lorenzo Cotto MD MEDIA CENTER SPECIALIST: Michelle Freeman CRNA Student Nurse Filling Station Attendant: Ryan Paredes Vitals Value Taken Time BP 132/109 11/19/2018 1:50 PM Temp Pulse Resp 18 11/19/2018 1:50 PM SpO2 100 % 11/19/2018 1:52 PM Pain Level 0 11/19/2018 1:50 PM Vitals shown include unvalidated device data. Patient Location: PACU/[facility] Level of Consciousness: Awake and Alert [...] risks discussed with patient. Plan discussed with MEDIA CENTER SPECIALIST. PAT Clinic Note documented in this [...] /hr documented in this encounter Care Teams Manager Assembly Relationship Specialty Start Date End Date Steven Jeffries MD [address] [address] PCP - General General Internal Medicine 11/18/1810/17 documented as of this encounter
--- OUTSIDE RECORDS SUMMARY | 2024-05-21 20:18 | XMS_ITS | Encounter Summary ---
[place] [address] Care Team Providers Care Rod Buster Name Role Phone Francy Lowe APRN Primary Care Provider + Reason for Referral * Surgical (Routine) - Closed Specialty Diagnoses / Procedures Referred By Contac t Referred To Contact Gastroenterology Diagnoses Esophageal spasm Procedures High Resolution Esophageal Manometry Nimesh Alicia MD [facility] [address] [facility] [address] [place] [address] Referral ID Status Reason Start Date Expiration Date V isits Requested Visits Authorized [id number] Closed Consult, Test & Treat 02/03/2020 02/02/2021 1 1 * Consultation (Routine) - Closed Specialty Diagnoses / Procedures Referred By Contmacie t Referred To Contact Gastroenterology Diagnoses Esophageal spasm Nimesh Alicia MD [facility] [place] [address] [facility] [address] [place] [phone] Referral ID Status Reason Start Date Expiration Date V isits Requested Visits Authorized [id number] Closed Consult, Test & Treat 02/03/2020 02/02/2021 1 1 Encounter Details Date Type Department Care Team (Late st Contact Info) Description 02/03/2020 Orders Only Gastroenterology at [facility] [address] Nimesh Alicia MD [facility] [place] [address] Esophageal spasm Social History Tobacco Use Types [...] (Bezet) 497 ms MUSE SYSTEM Calculated P Cameron 58 degrees MUSE SYSTEM Calculated R Cameron 19 degrees MUSE SYSTEM Calculated T Cameron 109 degrees MUSE SYSTEM INTERPRETATION Normal sinus rhythm Possible Anterior infarct (cited on or before 07-FEB-2020) T wave abnormality, consider lateral ischemia Abnormal ECG When compared with ECG of 07-FEB-2020 06:33, No significant change was found Confirmed by MD YANDY, SOHAIL ([id number]) on 02/08/2020 8:36:48 AM MUSE SYSTEM 02/07/2020 9:16 AM EDT 02/08/2020 8:36 AM EDT Unknown ECG ORDERABLES [facility] documented in this encounter Visit Diagnoses Diagnosis Esophageal spasm Dyskinesia of esophagus documented in this encounter Care Teams Rod Buster Relationship Specialty Start Date End Date Francy Lowe APRN PCP - General Family Medicine 10/19/19 02/11/21 documented as of this encounter
--- OUTSIDE RECORDS SUMMARY | 2024-05-21 20:18 | XMS_ITS | Encounter Summary ---
[place] [address] Care Team Providers Care Network Intern Name Role Phone Francy Lowe APRN Primary Care Provider + Reason for Visit * Auth/Cert Specialty Diagnoses / Procedures Referred By Jasson mendoza Referred To Contact Diagnoses NSTEMI (non-ST elevated myocardial infarction) nstemi Referral ID Status Reason Start Date Expiration Date Visits Re quested Visits Authorized [id number] 1 1 Encounter Details Date Type Department Care Team (Latest Contact Info) Description 02/07/2020 8:50 AM EDT - 02/07/2020 11:59 PM EDT Hospital Encounter [place] [address] Discharge Disposition: Home Social History Tobacco Use [...] mLs documented in this encounter Care Teams Network Intern Relationship Specialty Start Date End Date Francy Lowe APRN PCP - General Family Medicine 10/19/19 02/11/21 documented as of this encounter
--- OUTSIDE RECORDS SUMMARY | 2024-05-21 20:18 | XMS_ITS | Encounter Summary ---
[place] [address] Care Team Providers Care Regulatory Affairs Strategy Specialist Name Role Phone Steven Jeffries MD Primary Care Provider + [phone] Reason for Referral * Physical Therapy (Routine) - Closed Specialty Diagnoses / Procedures Referred By Contac t Referred To Contact Physical Therapy / [facility] Diagnoses Chronic bilateral low back pain with right-sided sciatica Tony Rivera APRN [facility] [place] [address] [facility] [place] [address] Referral ID Status Reason Start Date Expiration Date V isits Requested Visits Authorized [id number] Closed Evaluate and Treat 10/12/2019 10/11/2020 12 12 Reason for Visit * Reason Comments Back Pain * Consultation (Routine) - Closed Specialty Diagnoses / Procedures Referred By Contac t Referred To Contact [facility] and Spine Center Diagnoses Other intervertebral disc degeneration, lumbar region Spine- lumbar disc degeneration/ low back pain/ MRI(12/23/17) @ [facility] Francy Lowe APRN [address] [place] [address] [facility] [place] [address] Referral ID Status Reason Start Date Expiration Date V isits Requested Visits Authorized [id number] Closed Consult, Test & Treat Connection Center PCP Updated and/or Approved 09/15/2019 09/14/2020 1 1 Encounter Details Date Type Department Care Team (Late st Contact Info) Description 10/12/2019 9:00 AM EDT Office Visit [place] [address] Tony Rivera APRN Chronic bilateral low back pain with right-sided [...] in this encounter Progress Notes * Tony Rivera APRN - 10/12/2019 9:00 AM EDT SUBJECTIVE: Danielle [...] per day, denies alcohol use, lives in [facility] with her and [id number] and is on disability. Past med history [...] options including spine specially physical therapy and [facility] briefly described the [facility] functional worship program to the patient. After discussed the [...] sciatica documented in this encounter Care Teams Regulatory Affairs Strategy Specialist Relationship Specialty Start Date End Date Steven Jeffries MD [address] [place] [address] PCP - General General Internal Medicine 11/18/1810/17 documented as of this encounter
--- OUTSIDE RECORDS SUMMARY | 2024-05-21 20:18 | XMS_ITS | Encounter Summary ---
[place] [address] Care Team Providers Care Returned Goods Sorter Name Role Phone Francy Lowe APRN Primary Care Provider + Reason for Visit * Reason Onset Date Comments Medication Refill 12/09/2019 Encounter Details Date Type Department Care Team (Late st Contact Info) Description 12/09/2019 Refill [place] [address] Bonnie Guillen RN Type 2 diabetes, controlled, [...] uncontrolled documented in this encounter Care Teams Returned Goods Sorter Relationship Specialty Start Date End Date Francy Lowe APRN PCP - General Family Medicine 10/19/19 02/11/21 documented as of this encounter
--- OUTSIDE RECORDS SUMMARY | 2024-05-21 20:18 | XMS_ITS | Encounter Summary ---
Author Organization [facility] [address] [place] [address] Care Team Providers Care Pmp Name Role Phone Steven Jeffries MD Primary Care Provider [phone] Encounter Details Date Type Department Care Team (Late st Contact Info) Description 02/18/2019 Telephone [place] [address] Nimesh Alicia MD [facility] [place] [address] Social History Tobacco Use Types Packs/Day Years [...] 10:51 AM EDT I spoke with Ms Mills, she wasn't sure any longer what her question was about her medication. She says she is feeling fine. She will contact me again if she has any questions. documented in this encounter Plan of Treatment Not on file documented as of this encounter Visit Diagnoses Not on filedocumented in this encounter Care Teams Pmp Relationship Specialty Start Date End Date Steven Jeffries MD [address] [place] [address] PCP - General General Internal Medicine 11/18/1810/17 documented as of this encounter
--- OUTSIDE RECORDS SUMMARY | 2024-05-21 20:18 | XMS_ITS | Encounter Summary ---
[facility] Organization [facility] [place] [address] Care Team Providers Care Client Support Administrator Name Role Phone Steven Jeffries MD Primary Care Provider [phone] Encounter Details Date Type Department Care Team (Late st Contact Info) Description 08/23/2019 8:00 AM EDT TH Visit (TeleHealth) [place] [address] Nimesh Alicia MD [facility] [place] [address] Throat burning Social History Tobacco Use Types [...] Alicia MD - 08/23/2019 8:00 AM EDT [facility] Section of Gastroenterology and Hepatology Outpatient Consultation [facility] Gastroenterology Telephone Note Primary care provider: Steven [...] 2.49) performed by Nimesh Alicia MD at [facility] ENDOSCOPY ??? RECTOCELE REPAIR 2014 Dr. Boo @ [facility] ??? 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 Patient verbally consents to this telephone visit and understands that this visit may be billed, similar to a clinic office visit. I provided care to the patient today via telephone call, 15 minutes telephone visit was spent in discussion with patient on above. Nimesh Alicia MD CC Steven Jeffries MD [address] [address] No referring provider defined for this encounter. Gastroenterology Section [facility] documented in this encounter Plan of Treatment Not on file documented as of this encounter Visit Diagnoses Diagnosis Throat burning Throat pain documented in this encounter Care Teams Client Support Administrator Relationship Specialty Start Date End Date Steven Jeffries MD [address] [address] PCP - General General Internal Medicine 11/18/1810/17 documented as of this encounter
--- OUTSIDE RECORDS SUMMARY | 2024-05-21 20:18 | XMS_ITS | Encounter Summary ---
Author Organization [facility] Address [facility] [place] [address] Care Team Providers Care Marketing Database Consultant Name Role Phone Francy Lowe APRN Primary Care Provider + Reason for Visit * Auth/Cert Specialty Diagnoses / Procedures Referred By Jasson mendoza Referred To Contact Diagnoses NSTEMI (non-ST elevated myocardial infarction) nstemi Referral ID Status Reason Start Date Expiration Date Visits Re quested Visits Authorized [id number] 1 1 Encounter Details Date Type Department Care Team (Late st Contact Info) Description 02/07/2020 7:30 AM EDT - 02/07/2020 8:30 AM [place] [address] Todd Garcia MD [facility] [place] [address] CARDIAC CATHETERIZATION Social History Tobacco Use Types [...] Danielle Mills Patient Age: 59 y.o. Language: Irish Race: White Ethnicity: Not nor Admit date: [...] DM, dyslipidemia, hypothyroidism, obesity/BEN was transferred from [facility] for NSTEMI. ?? Pt reports 1 [...] cough, leg swelling. No palpitations. ?? At [facility] starting 9 pm, VSS stable 113/73 HR 85 bpm, RR 19 Questionable CLEMENTINA in V1-V2. Troponin 0.24, lipase 117 CT abdomen/plevis reportedly unremarkable. Pt is s/p CCY She received 4mg IV morphine , Zofran She was started on Heparin and NTG drip. Received ASA 324mg @ 1:32 am at [facility] Plavix 300mg @ 1:55am and then 300mg @2:21am. Consulted with Cards fellow at [facility] and decided to transfer. Hospital Course: #NSTEMI s/p PCI with JEANETH to LAD, LPA and LPL1 Admitted to the cardiology service. The patient was taken to the medical laboratory technical officer and noted to have 3 vessel disease. [...] priority for the procedure was Emergent. [facility] procedure was NSTE-ACS. [...] appointments: During 8am-5pm Friday through Friday call [phone] to speak with a nurse in the cardiology clinic All other times call [phone] and ask to speak to the test consultant water restoration technician. Follow up Appointments: ?? Francy Lowe PCP on Friday02/21/20 @ 2:30pm Dr. Carlos Jenkins ([facility] Cardiology) on 03/02/20 @ 2:45pm Future Appointments Date Time Provider Department Center 03/07/2020 10:00 AM Marta Rivera MD [facility] ENDO [facility] PCP: Francy Lowe APRN at [phone] Your Inpatient Doctor(s) at [facility]: Rell Gutierrez MD - Attending physician Your Primary Care Provider: Francy Lowe APRN [address] / [place] [address] For questions regarding issues relating to your hospitalization on the Hospital Medicine Service, please contact your inpatient physician through the [facility] Candy Packer [phone]. Issues after hours and on weekends will be handled by the Hospitalist staff on-call. General Instructions None Future Appointments and Orders Future Appointments and Orders Future Appointments Provider Department Dept Phone 03/07/2020 10:00 AM Marta Rivera MD Endocrinology at [facility] Arrive at: Home [phone] Please do not come in for this visit. Your provider will call you at the number you provided. Future Orders Complete By Expires Referral to Cardiac Rehab [[id number] Custom] As directed Process Instructions: If no progress note charted, please enter Clinical details in comments. Scheduling Instructions: Questions: My question or request is: NSTEMI, PCI- CR at [facility] Discharge References/Attachments None documented in this [...] appointments: During 8am-5pm Friday through Friday call [phone] to speak with a nurse in the cardiology clinic All other times call [phone] and ask to speak to the test consultant water restoration technician. Follow up Appointments: ?? Francy Lowe, PCP on Friday02/21/20 @ 2:30pm Dr. Carlos Jenkins ([facility] Cardiology) on 03/02/20 @ 2:45pm Future Appointments Date Time Provider Department Center 03/07/2020 10:00 AM Marta Rivera MD [facility] ENDO [facility] PCP: Francy Lowe APRN at [phone] Your Inpatient Doctor(s) at [facility]: Rell Gutierrez MD - Attending physician Your Primary Care Provider: Francy Lowe APRN [address] / [place] [address] For questions regarding issues relating to your hospitalization on the Hospital Medicine Service, please contact your inpatient physician through the [facility] Candy Packer [phone]. Issues after hours and on weekends will [...] that she works with on this at [facility]. Also states that she is on a financial program at [facility]. CM encouraged patient to call the financial assistance number provided on the brochure for screening and to discuss the bill from this hospitalization to determine what could potentially be used towards her Medicaid spend down as well. Patient verbalized understanding and denies any further questions or concerns at this time. CM updated KILN FURNITURE SAW TENDER and completed consult that was placed for social work re: financial concerns. Clarisa Rees RN, MSN Recycler Forklift Driver Truck Driver - Cardiology Office of Care Management Pager: [phone] Work * Rell Gutierrez MD - 02/09/2020 [...] DM, dyslipidemia, hypothyroidism, obesity/BEN was transferred from [facility] for NSTEMI. S/p high risk PCI [...] home Maria Bolaños MD PGY1 Cardiology S2 #[id number] CARDIOLOGY ATTENDING NOTE Patient: Danielle Mills Date [...] anterior ST-T wave changes. Went urgently to medical laboratory technical officer due to ongoing pain on 02/06 - 3VD including KNOCK OUT HAND RCA; IABP placed due to ongoing pain. [...] Dr. Bolaños. Rell Gutierrez MD, MPH, RPVI, [facility] Pager [phone] Cardiovascular Masonry InspectorWheel [place] [address] * Rell Gutierrez MD - 02/08/2020 7:04 [...] DM, dyslipidemia, hypothyroidism, obesity/BEN was transferred from [facility] for NSTEMI. S/p high risk PCI [...] Status: Full code Dispo: transfer to floor Marai Bolaños MD PGY1 Cardiology S2 #[id number] CARDIOLOGY ATTENDING NOTE Patient: Danielle Mills Date [...] anterior ST-T wave changes. Went urgently to medical laboratory technical officer due to ongoing pain on 02/06 - 3VD including KNOCK OUT HAND RCA; IABP placed due to ongoing pain. [...] Dr. Bolaños. Rell Gutierrez MD, MPH, RPVI, [facility] Pager [phone] Cardiovascular Masonry InspectorWheel [place] [address] * Carmella Alexander - 02/07/2020 9:02 PM [...] Carmella Alexander MD, PGY-2 Cardiology S1/S2, Pager [phone] 02/07/2020 * Ney Sylvester MD - 02/07/2020 1:58 PM EDT Danielle Mills is a 59 y.o. female referred for cardiac catheterization by Dr. Gutierrez for evaluation of coronary arteries . 59 y/o F with HTN, DM, dyslipidemia, hypothyroidism, obesity/BEN was transferred from [facility] for NSTEMI. Cardiac cath this AM [...] DM, dyslipidemia, hypothyroidism, obesity/BEN was transferred from [facility] for NSTEMI. Cardiac cath this AM [...] 6:50 AM EDT 0630 Pt admitted for [facility] with c/o chest pain. Pt states [...] DM, dyslipidemia, hypothyroidism, obesity/BEN was transferred from [facility] for NSTEMI. Pt reports 1 week [...] fever, cough, leg swelling. No palpitations. At [facility] starting 9 pm, VSS stable 113/73 HR 85 bpm, RR 19 Questionable CLEMENTINA in V1-V2. Troponin 0.24, lipase 117 CT abdomen/plevis reportedly unremarkable. Pt is s/p CCY She received 4mg IV morphine , Zofran She was started on Heparin and NTG drip. Received ASA 324mg @ 1:32 am at [facility] Plavix 300mg @ 1:55am and then 300mg @2:21am. Consulted with Cards fellow at [facility] and decided to transfer. Personal and social [...] 2.49) performed by Nimesh Alicia MD at [facility] ENDOSCOPY ??? RECTOCELE REPAIR 2014 [...] file Gets together: Not on file Attends anabaptist service: Not on file Active member of [...] DM, dyslipidemia, hypothyroidism, obesity/BEN was transferred from [facility] for NSTEMI. TREATMENT PLAN: #[place]/NSTEMI -ANN score 111 , DENIA score 4 -C/w Heparin and NTG drip. - Received ASA 324mg @ 1:32 am at [facility] -Plavix 300mg @ 1:55am and then [...] attempt. Thank you. Arnaud Teague, MSN, RN-, [facility] Tobacco Machine Attendant [facility] Pager #[phone] * Consult Note - Chelsey Beltre RN [...] (Interventions Implemented as Appropriate) 02/08/20 0800 02/08/20 8260 Plan of Care Review Progress -- improving [...] spouse would be surrogate decision maker per [place] surrogate decision making law. (Only good for 90 days) Any patient receiving care at [facility] must abide by [place] law. The hierarchy for surrogate decision making [...] (i) The agent with financial power of securities attorney or a conservator appointed in accordance [...] at DC: none Home Address Listed as: [address] [place] [phone] Social & Family Supports: Extended Emergency Contact Information Primary Emergency Contact: Andrés Mills Address: [address] [place] [phone] [facility] Relation: Spouse [...] Preferred Pharmacy: [id number] [place] - [address] [place] [address] [id number] - [place], [place] - [address] [facility] [address] [facility] [address] [place] [address] [address] [address] Primary Care Provider: Francy Lowe APRN [phone] Patient/Caregiver Goals of Treatment: DC home Potential [...] of care planning. Clarisa Rees RN, MSN, jetting machine operator Office of Care Management Pager: [phone] Work * Brief Op Note - Todd Garcia MD - 02/07/2020 3:26 PM EDT Images from the original note were not included. Preliminary Cardiac Catheterization Procedure Note: Patient Name: Danielle Mills : [id number] MR#: [id number] Case Date: 02/07/2020 Candy Packer: Surgeon(s) and Role: * Todd Garcia MD - Primary Preoperative diagnosis: ?CAD Postoperative diagnosis: *ASCVD * Procedure(s) performed: Stent insertion, coronary Access: left STUDENT RECORDS SPECIALIST--> Perclosed A time-out was conducted prior to [...] Procedure Note: Patient Name: Danielle Mills : [id number] MR#: [id number] Case Date: 02/07/2020 Candy Packer: Surgeon(s) and Role: * Todd Garcia MD - Primary * David Vigil MD - Fellow Preoperative diagnosis: ASCVD Postoperative diagnosis: * ASCVD * Procedure(s) performed: [facility] Coronary angio IABP insertion Access: right radial--> TR band, right STUDENT RECORDS SPECIALIST--> IABP inserted A time-out was conducted prior [...] nitro. An IABP was placed in the medical laboratory technical officer and she is being transferred to [facility]. [...] ~2004 Bilateral carpal tunnel release Procedure Date: ??? CHOLECYSTECTOMY ??? ELBOW SURGERY 01/04/2015 Left lateral epi rel ??? HIP SURGERY Right Right hip spur Procedure Date: Unknown, Dr. Benitez ??? HYSTERECTOMY, TOTAL ABDOMINAL 1994 Total abdominal hysterectomy Procedure Date: 1994 ??? JOINT REPLACEMENT ??? ORTHOPEDIC SURGERY ??? PRO UPPER GI ENDOSCOPY, BIOPSY N/A 11/19/2018 EGD WITH BIOPSY (WRVU 2.49) performed by Nimesh Alicia MD at [facility] ENDOSCOPY ??? RECTOCELE REPAIR 2014 [...] issues/chronic pain. 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 Family- lives with Andrés and his mother. Illicit drug use- denies Gnosticist- denies Family History: History reviewed. No pertinent [...] of Danielle Mills. Signed: JUAN PABLO [facility] Section of Cardiac Surgery Date: 02/07/2020 59 yo female who presents with stuttering PR, on plavix, anterior WMA. CAth shows a very tight proximal LAD stenosis, distal LCX disease, non-dominant RCA which is occluded. The distal LCX circulation is not a good target for bypass surgery. The RCA is not a target. The LAD is a good target. We could end up surgery with only a NAIR to the LAD. Right now on plavix, with an acute PR, on an IABP, with BMI 43 and [...] further details. Vik Justin MD 02/07/2020 Pager [phone] documented in this encounter Plan of Treatment [...] 6 AM EDT CARDIAC CATHETERIZATION Routine 02/07/20 9:00 AM EDT POCT GLUCOSE Routine 02/07/2020 [...] POCT Glucose (02/09/2020 6:55 AM EDT) Pathologist [facility] Glucose, POC 228(H) 65 - 199 mg/dL [facility] Comment: Supplemental ranges: <140 mg/dL before meals <180 mg/dL all other times of the day Blood specimen (specimen) 02/09/2020 6:55 AM EDT 02/09/2020 6:55 AM EDT Rell Gutierrez MD POINT OF CARE TEST O RDERABLES [facility] [place] [address] * Differential, Automated (02/09/2020 3:34 AM EDT) [facility] Neutrophil % 67.7 % [facility] Neutrophil Absolute 5.30 1.70 - 6.10 x10(3)/[facility] Lymph % 20.9 % [facility] Lymphocytes Abs 1.6 0.9 - 3.2 x10(3)/[facility] Monocyte % 9.2 % [facility] Monocyte Abs 0.7 0.3 - 0.9 x10(3)/[facility] Eos % 1.5 % [facility] Eosinophils Abs 0.1 0.0 - 0.4 x10(3)/[facility] Basophil % 0.4 % [facility] Baso Absolute 0.0 0.0 - 0.1 x10(3)/[facility] Immature Gran % 0.30 % [facility] Comment: Immature granulocytes(IG's)percentage and absolute count will include metamyelocytes, myelocytes, and promyelocytes. Blood smears from CBCs yielding IG's will be scanned manually for concordance. If this scan disagrees with the automated IG or if promyelocytes are noted, a manual differential will be performed. Immature Gran Absolute 0.02 0.00 - 0.04 x10(3)/[facility] Blood specimen (specimen) 02/09/2020 3:34 AM EDT 02/09/2020 3:42 AM EDT Narrative Resulting Agency Comment Spec In Lab Maria Bolaños MD HEMATOLOGY ORDERABLE S [facility] [place] [address] * (ABNORMAL) Hemogram (02/09/2020 3:34 AM EDT) White Blood Cell 7.8 4.0 - 9.5 x10(3)/[facility] LABORAT[facility] Red Blood Cell 5.11 4.00 - 5.21 x10(6)/[facility] Hemoglobin 13.5 11.7 - 15.5 gm/dL [facility] Hematocrit 42.8 35.7 - 45.8 % [facility] Mean Cell Volume 83.8 82.6 - 94.4 [facility] Mean Cell Hemoglobin 26.4(L) 27.1 - 32.0 pg [facility] Mean Cell Hemoglobin Concentration 31.5(L) 31.7 - 35.0 gm/dL [facility] Platelet 168 145 - 357 x10(3)/[facility] LABORAT[facility] RDW Standard Deviation 43.8 37.0 - 46.0 [facility] RDW coefficient of variation 14.3(H) 11.5 - 14.1 % [facility] Mean Platelet Volume 11.5 7.6 - 12.9 [facility] NRBC% auto 0.0 % [facility] NRBC Absolute 0.000 0.000 - 0.000 x10(3)/[facility] LAB[facility] Blood specimen (specimen) 02/09/2020 3:34 AM EDT 02/09/2020 3:42 AM EDT Narrative Resulting Agency Comment Spec In Lab Maria Bolaños MD HEMATOLOGY ORDERABLE S Performing Organization Address City/[facility]/ZIP Co de Phone Number [facility] [place] [address] * Phosphorus (02/09/2020 3:34 AM EDT) Phosphorus 2.8 2.5 - 4.5 mg/dL [facility] Blood specimen (specimen) 02/09/2020 3:34 AM EDT 02/09/2020 3:42 AM EDT Narrative Resulting Agency Comment Spec In Lab Rell Gutierrez MD CHEMISTRY ORDERABLES Performing Organization Address [facility] Co de Phone Number [facility] [place] [address] * Magnesium (02/09/2020 3:34 AM EDT) Pathologist [facility] Magnesium 0.93 0.69 - 1.07 mmol/L [facility] Blood specimen (specimen) 02/09/2020 3:34 AM EDT 02/09/2020 3:42 AM EDT Narrative Resulting Agency Comment Spec In Lab Rell Gutierrez MD CHEMISTRY ORDERABLES Performing Organization Address City/[facility]/ZIP Co de Phone Number [facility] [place] [address] * (ABNORMAL) Basic Metabolic Panel (non-fasting) (02/09/2020 3:34 AM EDT) Glucose 249(H) 65 - 199 mg/dL [facility] Comment:Diabetes: >=200 mg/d L plus symptoms Blood Urea Nitrogen 12 8 - 18 mg/dL [facility] Creatinine 0.78 0.70 - 1.20 mg/dL [facility] Sodium 138 135 - 145 mmol/L [facility] Potassium 3.8 3.5 - 5.0 mmol/L [facility] Comment: Please note: ??Patients with WBC >100,000 may have falsely elevated Potassium levels. ??For accurate Potassium quantification in these patients send serum separator tube (gold top) for subsequent determinations. ??Contact the Clinical Chemistry Laboratory if there are any questions. Chloride 100 98 - 107 mmol/L [facility] Carbon Dioxide 29 22 - 31 mmol/L [facility] Anion Gap 9 5 - 15 mmol/L [facility] Calcium 8.0(L) 8.5 - 10.5 mg/dL [facility] Est Glomerular Filtration Rate 84 >=60 mL/min/1. 73 m?? [facility] Comment: The eGFR was calculated using the CKD-EPI equation. As with all creatinine based estimates of kidney function, eGFR values calculated with the CKD-EPI equation are not accurate in patients with acute kidney failure, extremes of body mass or the acutely ill. http://[employer]/[facility] eGFR 97 >=60 mL/min/1. 73 m?? [facility] Comment: The eGFR was calculated using the CKD-EPI equation. As with all creatinine based estimates of kidney function, eGFR values calculated with the CKD-EPI equation are not accurate in patients with acute kidney failure, extremes of body mass or the acutely ill. http://[employer]/[facility] Blood specimen (specimen) 02/09/2020 3:34 AM EDT 02/09/2020 3:42 AM EDT Narrative Resulting Agency Comment Spec In Lab Rell Gutierrez MD CHEMISTRY ORDERABLES [facility] [place] [address] * POCT Glucose (02/08/2020 8:56 PM EDT) Glucose, POC 145 65 - 199 mg/dL [facility] Comment: Supplemental ranges: <140 mg/dL before meals <180 mg/dL all other times of the day Blood specimen (specimen) 02/08/2020 8:56 PM EDT 02/08/2020 8:56 PM EDT Rell Gutierrez MD POINT OF CARE TEST O RDERABLES Performing Organization Address [facility] Co de Phone Number [facility] [place] [address] * POCT Glucose (02/08/2020 4:52 PM EDT) Glucose, POC 144 65 - 199 mg/dL [facility] Comment: Supplemental ranges: <140 mg/dL before meals <180 mg/dL all other times of the day Blood specimen (specimen) 02/08/2020 4:52 PM EDT 02/08/2020 4:52 PM EDT Rell Gutierrez MD POINT OF CARE TEST O RDERABLES Performing Organization Address [facility] de Phone Number [facility] [place] [address] * (ABNORMAL) POCT Glucose (02/08/2020 12:35 PM EDT) Glucose, POC 235(H) 65 - 199 mg/dL [facility] Comment: Supplemental ranges: <140 mg/dL before meals <180 mg/dL all other times of the day Blood specimen (specimen) 02/08/2020 12:35 PM EDT 02/08/2020 12:35 PM EDT Rell Gutierrez MD POINT OF CARE TEST O RDERABLES Performing Organization Address [facility] Co de Phone Number [facility] [place] [address] * (ABNORMAL) POCT Glucose (02/08/2020 9:38 AM EDT) Glucose, POC 296(H) 65 - 199 mg/dL [facility] Comment: Supplemental ranges: <140 mg/dL before meals <180 mg/dL all other times of the day Blood specimen (specimen) 02/08/2020 9:38 AM EDT 02/08/2020 9:38 AM EDT Rell Gutierrez MD POINT OF CARE TEST O RDERABLES Performing Organization Address City/[facility]/ZIP Co de Phone Number [facility] [place] [address] * (ABNORMAL) POCT Glucose (02/08/2020 7:35 AM EDT) Glucose, POC 241(H) 65 - 199 mg/dL [facility] Comment: Supplemental ranges: <140 mg/dL before meals <180 mg/dL all other times of the day Blood specimen (specimen) 02/08/2020 7:35 AM EDT 02/08/2020 7:35 AM EDT Rell Gutierrez MD POINT OF CARE TEST O SUSHILERATRAY Performing Organization Address City/[facility]/ZIP Co de Phone Number [facility] [place] [address] * Differential, Automated (02/08/2020 4:01 AM EDT) [facility] Neutrophil % 68.7 % [facility] Neutrophil Absolute 5.45 1.70 - 6.10 x10(3)/[facility] LAB[facility] Lymph % 21.1 % [facility] Lymphocytes Abs 1.7 0.9 - 3.2 x10(3)/[facility] LAB[facility] Monocyte % 8.6 % [facility] Monocyte Abs 0.7 0.3 - 0.9 x10(3)/[facility] LAB[facility] Eos % 0.8 % [facility] Eosinophils Abs 0.1 0.0 - 0.4 x10(3)/[facility] LABOR[facility]ORY Basophil % 0.4 % [facility] Baso Absolute 0.0 0.0 - 0.1 x10(3)/[facility] Immature Gran % 0.40 % [facility] Comment: Immature granulocytes(IG's)percentage and absolute count will include metamyelocytes, myelocytes, and promyelocytes. Blood smears from CBCs yielding IG's will be scanned manually for concordance. If this scan disagrees with the automated IG or if promyelocytes are noted, a manual differential will be performed. Immature Gran Absolute 0.03 0.00 - 0.04 x10(3)/mcL [facility] Blood specimen (specimen) 02/08/2020 4:01 AM EDT 02/08/2020 4:06 AM EDT Narrative Resulting Agency Comment Spec In Lab Kayleigh Crook MD HEMATOLOGY ORDERABLE S [facility] [place] [address] * (ABNORMAL) Hemogram (02/08/2020 4:01 AM EDT) White Blood Cell 7.9 4.0 - 9.5 x10(3)/mc L [facility] Red Blood Cell 5.11 4.00 - 5.21 x10(6)/mc L [facility] LABORATORY Hemoglobin 13.5 11.7 - 15.5 gm/dL [facility] Hematocrit 42.6 35.7 - 45.8 % [facility] Mean Cell Volume 83.4 82.6 - 94.4 fL [facility] Mean Cell Hemoglobin 26.4(L) 27.1 - 32.0 pg [facility] Mean Cell Hemoglobin Concentration 31.7 31.7 - 35.0 gm/dL [facility] Platelet 189 145 - 357 x10(3)/mc L [facility] RDW Standard Deviation 43.5 37.0 - 46.0 fL [facility] RDW coefficient of variation 14.3(H) 11.5 - 14.1 % [facility] Mean Platelet Volume 11.2 7.6 - 12.9 fL [facility] NRBC% auto 0.0 % [facility] NRBC Absolute 0.000 0.000 - 0.000 x10(3)/mc L [facility] Blood specimen (specimen) 02/08/2020 4:01 AM EDT 02/08/2020 4:06 AM EDT Narrative Resulting Agency Comment Spec In Lab Kayleigh Crook MD HEMATOLOGY ORDERABLE S Performing Organization Address [facility]/ZIP Co de Phone Number [facility] [place] [address] * (ABNORMAL) Phosphorus (02/08/2020 4:01 AM EDT) Phosphorus 1.9(L) 2.5 - 4.5 mg/dL [facility] Blood specimen (specimen) 02/08/2020 4:01 AM EDT 02/08/2020 4:06 AM EDT Narrative Resulting Agency Comment Spec In Lab Rell Gutierrez MD CHEMISTRY ORDERABLES Performing Organization Address [facility] Co de Phone Number [facility] [place] [address] * Magnesium (02/08/2020 4:01 AM EDT) Magnesium 0.91 0.69 - 1.07 mmol/L [facility] Blood specimen (specimen) 02/08/2020 4:01 AM EDT 02/08/2020 4:06 AM EDT Narrative Resulting Agency Comment Spec In Lab Rell Gutierrez MD CHEMISTRY ORDERABLES Performing Organization Address [facility] Co de Phone Number [facility] [place] [address] * (ABNORMAL) Basic Metabolic Panel (non-fasting) (02/08/2020 4:01 AM EDT) Glucose 247(H) 65 - 199 mg/dL [facility] Comment:Diabetes: >=200 mg/d L plus symptoms Blood Urea Nitrogen 8 8 - 18 mg/dL [facility] Creatinine 0.66(L) 0.70 - 1.20 mg/dL [facility] Sodium 138 135 - 145 mmol/L [facility] Potassium 4.4 3.5 - 5.0 mmol/L [facility] Comment: Please note: ??Patients with WBC >100,000 may have falsely elevated Potassium levels. ??For accurate Potassium quantification in these patients send serum separator tube (gold top) for subsequent determinations. ??Contact the Clinical Chemistry Laboratory if there are any questions. Chloride 102 98 - 107 mmol/L [facility] Carbon Dioxide 27 22 - 31 mmol/L [facility] Anion Gap 9 5 - 15 mmol/L [facility] Calcium 7.9(L) 8.5 - 10.5 mg/dL [facility] Est Glomerular Filtration Rate 97 >=60 mL/min/1. 73 m?? [facility] Comment: The eGFR was calculated using the CKD-EPI equation. As with all creatinine based estimates of kidney function, eGFR values calculated with the CKD-EPI equation are not accurate in patients with acute kidney failure, extremes of body mass or the acutely ill. http://[employer]/[facility]Enkf eGFR 113 >=60 mL/min/1. 73 m?? [facility] Comment: The eGFR was calculated using the CKD-EPI equation. As with all creatinine based estimates of kidney function, eGFR values calculated with the CKD-EPI equation are not accurate in patients with acute kidney failure, extremes of body mass or the acutely ill. http://[employer]/DHnkf Blood specimen (specimen) 02/08/2020 4:01 AM EDT 02/08/2020 4:06 AM EDT Narrative Resulting Agency Comment Spec In Lab Rell Gutierrez MD CHEMISTRY ORDERABLES [facility] [place] [address] * Potassium (02/07/2020 8:55 PM EDT) Potassium 3.7 3.5 - 5.0 mmol/L [facility] Comment: Please note: ??Patients [...] CHEMISTRY ORDERABLES Performing Organization Address [facility] Co de Phone Number [facility] [place] [address] * POCT Glucose (02/07/2020 8:48 PM EDT) Glucose, POC 183 65 - 199 mg/dL [facility] Comment: Supplemental ranges: <140 mg/dL before meals <180 mg/dL all other times of the day Blood specimen (specimen) 02/07/2020 8:48 PM EDT 02/07/2020 8:48 PM EDT Rell Gutierrez MD POINT OF CARE TEST O RDERABLES Performing Organization Address [facility] Co de Phone Number [facility] [place] [address] * Potassium (02/07/2020 5:10 PM EDT) Potassium 4.0 3.5 - 5.0 mmol/L [facility] Comment: Please note: ??Patients [...] Gutierrez MD CHEMISTRY ORDERABLES Performing Organization Address City/[facility]/ZIP Co de Phone Number [facility] [place] [address] * (ABNORMAL) Troponin (02/07/2020 5:10 PM EDT) Troponin-T 0.27(H) 0.00 - 0.00 ng/mL [facility] Comment: The 99th percentile for Troponin T is less than 0.01 ng/mL, any detectable cTnT concentration using this assay should be considered elevated. According to the third universal definition of myocardial infarction the following criteria with a clinical presentation consistent with acute myocardial ischemia meets the diagnosis for a myocardial infarction (PR). Detection of a rise and/or fall of cTnT, with at least one value greater than the 99th percentile (> or = 0.01) and with at least one of the following ?? Symptoms of ischemia ?? New or presumed new significant GB-wvkixrm-Z wave (ST-T) changes or new left bundle [...] additional sample may be indicated. Reference: Third Aromas Definition of Myocardial Infarction. Journal of the [place] College [employer] 2012;60:1581-98 Blood specimen (specimen) 02/07/2020 5:10 PM EDT 02/07/2020 5:28 PM EDT Narrative Resulting Agency Comment Spec In Lab Vik Justin MD CHEMISTRY ORDER TOBI Performing Organization Address City/[facility]/ZIP Co de Phone Number [facility] [place] [address] * XR Chest One View (02/07/2020 5:07 [...] report, please contact the number below. Rell Henkin MD IMG DX ORDERABLES * POCT Glucose (02/07/2020 4:21 PM EDT) Glucose, POC 139 65 - 199 mg/dL [facility] Comment: Supplemental ranges: <140 mg/dL before meals <180 mg/dL all other times of the day Blood specimen (specimen) 02/07/2020 4:21 PM EDT 02/07/2020 4:21 PM EDT Rell Gutierrez MD POINT OF CARE TEST O RDERABLES [facility] [place] [address] * CARDIAC CATHETERIZATION (02/07/2020 3:21 PM EDT) Anatomical Region Laterality Modality Other Narrative 02/07/2020 4:29 PM EDT ?[facility] ? Cardiac Catheterization/Intervention Report ? Patient Name: Jarrett, Danielle ? Procedure Date: 02/07/2020 ? A #: [id number] ? Primary Physician: Jose, Todd Mendoza ? Case #: [id number] ? File Name: [id number] ? Catheterization Order Number: [id number] ? [facility] ? Final Report [place], [place] ? Patient Name: ? Danielle Jarrett ? ID#: ?[id number] ? : ?1960 ? Procedure Date: ? February 07, 2020 ? Case #: ? [id number] ? Room: ? 6 ? Case Physician: ? Todd T Jose, M.D. ?Start: ?14:09 ?Fellow: ? David Vigil [...] ?was designated as ASA Class III. The [facility] clinical frailty scale is 5: ?Mildly Frail. [...] procedure was Urgent. The indication for ?the medical laboratory technical officer visit is worsening angina. Chest pain symptom [...] dose administered prior to arrival in the medical laboratory technical officer. ?Recommended anti-platelet/anti-thrombotic regimen: ?Start aspirin 81 mg daily now and continue for indefinitely. ?Start clopidogrel 75 mg daily now and continue for 12 months then stop. ?These recommendations are made at the time of the intervention. Patient ?and provider preferences or a changing clinical situation may require ?modification of this regimen. Consult [facility] Interventional Cardiology for ?questions. ?The 1 year [...] against any medical treatment. Consult ?http://tools.acc.org/DAPTriskapp/#!/content/calculator/ or [facility] ?Interventional Cardiology for questions. ? Conclusions: ?* [...] Procedure Note Todd Garcia MD - 03/23/2020 [facility] Cardiac Catheterization/Intervention Report Patient Name: Danielle Mills Procedure Date: 02/07/2020 A #: [id number] Primary Physician: Todd Garcia Case #: [id number] File Name: [id number] Catheterization Order Number: [id number] [facility] FinalReport [place], [place] Patient Name: Danielle Mills ID#:[id number] :1960 Procedure Date: February 07, 2020 Case [...] was designated as ASA Class III. The [facility] clinical frailty scale is5: Mildly Frail. Diagnostic Tests: Prior Coronary Angiography: LV ejection fraction within 6 months is 30%. Electrocardiography: EKG was assessed by ECG. EKG was Abnormal. EKG showed T-wave inversions and other abnormality. Medications Prior to Procedure: Aspirin, Beta Fernando and Statin. Indications for Diagnostic Cath: The priority of the diagnostic procedure was Urgent. The indicationfor the medical laboratory technical officer visit is worsening angina. Chest pain symptomassessment [...] the lesion was dilated using a 3.00mm DAABCPM09 MM balloon with a maximum inflation pressure [...] dose administered prior to arrival in the medical laboratory technical officer. Recommended anti-platelet/anti-thrombotic regimen: Start aspirin 81 mg daily now and continue for indefinitely. Start clopidogrel 75 mg daily now and continue for 12 months thenstop. These recommendations are made at the time of the intervention.Patient and provider preferences or a changing clinical situation mayrequire modification of this regimen. Consult [facility] Interventional Cardiologyfor questions. The 1 year bleeding [...] or against any medical treatment.Consult http://tools.acc.org/DAPTriskapp/#!/content/calculator/ or [facility] Interventional Cardiology for questions. Conclusions: * Obstructive [...] SARS-CoV-2 RNA (Rapid) Not Detected Not Detected [facility] Comment: This result should [...] using the Simplexa COVID-19 Direct Assay by [employer] as authorized by the FDA issued Emergency [...] Department of Pathology and Laboratory Medicine at [facility], certified under the Clinical Laboratory Improvement [...] Information for Healthcare Professionals (https://www.cdc.gov/coronavirus/2019-ncov/hcp/index.html). SARS-CoV-2 Source [employer] JAYME NORIEGA [facility] Nasopharyngeal swab (specimen) 02/07/2020 12:30 PM EDT 02/07/2020 12:59 PM EDT Comment:Symptoms->Surveillan ce Narrative Resulting Agency Comment Spec In Lab Vik Justin MD MICROBIOLOGY - GENERAL ORDERABLES Performing Organization Address [facility] Co de Phone Number [facility] [place] [address] * POCT Glucose (02/07/2020 10:58 AM EDT) Glucose, POC 115 65 - 199 mg/dL [facility] Comment: Supplemental ranges: <140 mg/dL before meals <180 mg/dL all other times of the day Blood specimen (specimen) 02/07/2020 10:58 AM EDT 02/07/2020 10:58 AM EDT Rell Gutierrez MD POINT OF CARE TEST O RDERABLES Performing Organization Address City/[facility]/ZIP Co de Phone Number [facility] [place] [address] * Lavender Tube HOLD (02/07/2020 10:55 AM EDT) Lavender Hold Sample in lab. [facility] Blood specimen (specimen) Venous Draw / Unknown 02/07/2020 10:55 AM EDT 02/07/2020 11:16 AM EDT Kayleigh Crook MD HEMATOLOGY ORDERABLE S [facility] [place] [address] * Phosphorus (02/07/2020 10:55 AM EDT) Phosphorus 3.0 2.5 - 4.5 mg/dL [facility] Blood specimen (specimen) 02/07/2020 10:55 AM EDT 02/07/2020 11:15 AM EDT Narrative Resulting Agency Comment Spec In Lab Rell Gutierrez MD CHEMISTRY ORDERABLES Performing Organization Address City/[facility]/ZIP Co de Phone Number [facility] [place] [address] * Magnesium (02/07/2020 10:55 AM EDT) Magnesium 1.00 0.69 - 1.07 mmol/L [facility] Blood specimen (specimen) 02/07/2020 10:55 AM EDT 02/07/2020 11:15 AM EDT Narrative Resulting Agency Comment Spec In Lab Rell Gutierrez MD CHEMISTRY ORDERABLES Performing Organization Address City/[facility]/ZIP Co de Phone Number [facility] [place] [address] * Heparin (unfractionated) Level (02/07/2020 10:55 AM EDT) UF Heparin 0.44 IU/mL [facility] Lab Vik Justin MD HEMATOLOGY EDEN LOPES [facility] [place] [address] * (ABNORMAL) Troponin (02/07/2020 10:55 AM EDT) Troponin-T 0.13(H) 0.00 - 0.00 ng/mL [facility] Comment: The 99th percentile for Troponin T is less than 0.01 ng/mL, any detectable cTnT concentration using this assay should be considered elevated. According to the third universal definition of myocardial infarction the following criteria with a clinical presentation consistent with acute myocardial ischemia meets the diagnosis for a myocardial infarction (PR). Detection of a rise and/or fall of cTnT, with at least one value greater than the 99th percentile (> or = 0.01) and with at least one of the following ?? Symptoms of ischemia ?? New or presumed new significant GO-vruzpew-L wave (ST-T) changes or new left bundle [...] additional sample may be indicated. Reference: Third Aromas Definition of Myocardial Infarction. Journal of the [place] College of Cardiology 2012;60:1581-98 Blood specimen (specimen) 02/07/2020 10:55 AM EDT 02/07/2020 11:15 AM EDT Narrative Resulting Agency Comment Spec In Lab Vik Jusitn MD CHEMISTRY ORDER TOBI [facility] [place] [address] * ECHO COMPLETE W CONTRAST (02/07/2020 10:46 AM EDT) EF 61 HEARTLAB SYSTEM Anatomical Region Laterality Modality Other 02/07/2020 Narrative 02/07/2020 1:49 PM EDT Procedure: ?Transthoracic Echocardiogram Patient: ?JARRETT Mcintosh ?(Age): 1960(59y) Med Rec#: ? [id number] ?Sex: ?F ? Site Loc: ? [facility] ?Ht / Wt: ??165(cm)/118(kg) Pt. Loc: ?CCU ? BSA: ?2.21 Study Date: ?? 02/07/2020 ?Pt. Type: Inpatient Tape: ? Referring: Rell Gutierrez ??([id number]) Referring: LISY Reading: Ruslan Mcfarlane ([id number]) Pc Network Technician: Laura Brown Diagnosis: *Non-ST elevation (NSTEMI) myocardial [...] Vmax ?0.61 ? m/sec ? MV deceleration [id number] ?msec ? MV A-wave Vmax ?0.77 ? [...] ? Mid-Inferior ?Normal ? Mid-Inferoseptal ?Hypokinetic ? [place]-Septal ? Hypokinetic ? [place]-Anterior ? Akinetic ? [place]-Lateral ?Akinetic ? [place]-Inferior ? Hypokinetic ? [place]-Tip ?Akinetic ? This report has been electronically signed by: Ruslan Mcfarlane MD ? 02/07/2020 13:49:14 Images reviewed and interpretation verified [facility] Cardiac Ultrasound Laboratory Procedure Note Ruslan Mcfarlane MD - 02/07/2020 Procedure: Transthoracic Echocardiogram Patient: JARRETT BUSTILLO(Age): 1960(59y) Med Rec#: [id number] Sex: F Site Loc: [facility] Ht / Wt: 165(cm)/118(kg) Pt. Loc: CCU BSA: 2.21 Study Date: 02/07/2020 Pt. Type: Inpatient Tape: Referring: Rell Gutierrez ([id number]) Referring: LISY Reading: Ruslan Mcfarlane ([id number]) Pc Network Technician: Laura Brown Diagnosis: *Non-ST elevation (NSTEMI) myocardial [...] MV E-wave Vmax 0.61 m/sec MV deceleration [id number] msec MV A-wave Vmax 0.77 m/sec MV [...] Normal Mid-Posterolateral Normal Mid-Inferior Normal Mid-Inferoseptal Hypokinetic [place]-Septal Hypokinetic [place]-Anterior Akinetic [place]-Lateral Akinetic [place]-Inferior Hypokinetic [place]-Tip Akinetic This report has been electronically signed by: Ruslan Mcfarlane MD 02/07/2020 13:49:14 Images reviewed and interpretation verified [facility] Cardiac Ultrasound Laboratory Rell Gutierrez MD [...] Modality Other Narrative 02/07/2020 9:04 AM EDT ?[facility] ? Cardiac Catheterization/Intervention Report ? Patient Name: Jarrett, Danielle ? Procedure Date: 02/07/2020 ? A #: [id number] ? Primary Physician: Jose, Todd T ? Case #: [id number] ? File Name: [id number] ? Catheterization Order Number: [id number] ? [facility] ? Final Report [place], [place] ? Patient Name: ? Danielle Jarrett ? ID#: ?[id number] ? : ?1960 ? Procedure Date: ? [...] was designated as ASA Class IV. ?The [facility] clinical frailty scale is 5: [...] procedure was Urgent. The indication for ?the medical laboratory technical officer visit is ACS less than or equal [...] 8Fr IABP was inserted via the right STUDENT RECORDS SPECIALIST using ultrasound guidance. ?The IABP was advanced via the right STUDENT RECORDS SPECIALIST into the distal aortic arch over ?a wire. ??After confirming position, the IABP was sutured in place and ?connected to the console. ??The counterpulsation was initiated and the ?patient was noted to become chest pain free. ?Successful inseriton of a 50cc IABP via an 8fr sheat in the right STUDENT RECORDS SPECIALIST. ?The attending physician was present for the entire procedure. ?Dr. Todd Garcia M.D. was present during the moderate sedation ?intraservice time as documented by the sedation nurse. ??Case time = 00:34. ?Dr. Todd Garcia M.D. performed the coronary angiography, left heart ?catheterization and IABP insertion in medical laboratory technical officer. ? Todd Garcia M.D. ? Electronically Signed by: Todd Garcia M.D. ? Report Finalized: 02/07/2020 ??08:57 ? Report Last Ammended: 03/23/2020 ??13:05 ? Procedure Note Todd Garcia MD - 03/23/2020 [facility] Cardiac Catheterization/Intervention Report Patient Name: Danielle Mills Procedure Date: 02/07/2020 A #: [id number] Primary Physician: Todd Garcia Case #: [id number] File Name: [id number] Catheterization Order Number: [id number] [facility] FinalReport [place], [place] Patient Name: Danielle Mills ID#:[id number] :1960 Procedure Date: February 07, 2020 Case [...] patient was designated as ASAClass IV. The HA clinical frailty scale is 5: Mildly Frail. Diagnostic Tests: Prior Coronary Angiography: LV ejection fraction within 6 months is 30%. Electrocardiography: EKG was assessed by ECG. EKG was Abnormal. EKG showed T-wave inversions. Medications Prior to Procedure: Aspirin and Statin. Indications for Diagnostic Cath: The priority of the diagnostic procedure was Urgent. The indicationfor the medical laboratory technical officer visit is ACS less than or equal [...] 8Fr IABP was inserted via the right STUDENT RECORDS SPECIALIST using ultrasoundguidance. The IABP was advanced via the right STUDENT RECORDS SPECIALIST into the distal aortic archover a wire. [...] angiography, leftheart catheterization and IABP insertion in medical laboratory technical officer. Todd Garcia M.D. Electronically Signed by: Todd Garcia M.D. Report Finalized: 02/07/2020 08:57 Report Last Ammended: 03/23/2020 13:05 Todd Garcia MD CARDIAC CATH ORDERAB LES * POCT Glucose (02/07/2020 7:32 AM EDT) Glucose, POC 147 65 - 199 mg/dL [facility] Comment: Supplemental ranges: <140 mg/dL before meals <180 mg/dL all other times of the day Blood specimen (specimen) 02/07/2020 7:32 AM EDT 02/07/2020 7:32 AM EDT Rell Gutierrez MD POINT OF CARE TEST O RDERABLES [facility] [place] [address] * (ABNORMAL) Hemoglobin A1c (02/07/2020 7:29 AM EDT) Hemoglobin A1c 6.8(H) 4.3 - 5.6 % [facility] Comment: Reference Range: 4.3 [...] 1, S67-94 Estimated Average Glucose 147 mg/dL [facility] Comment: eAG equivalents for [...] into estimated average glucose values. ??Diabetes Care 2008:31(8):2382-6990. Blood specimen (specimen) Venous Draw / Unknown 02/07/2020 7:29 AM EDT 02/07/2020 8:47 AM EDT Narrative Resulting Agency Comment Spec In Lab Keyon Foley MD CHEMISTRY ORDERABLES Performing Organization Address [facility] Co de Phone Number [facility] [place] [address] * Sedimentation rate (02/07/2020 7:29 AM EDT) [facility] Sedimentation Rate Automated 25 2 - 39 mm/hr [facility] Comment: Effective April 21, [...] MD HEMATOLOGY ORDERABLE S Performing Organization Address [facility] de Phone Number [facility] [place] [address] * (ABNORMAL) Hepatic Function Panel (02/07/2020 7:29 AM EDT) Protein, Total 6.0(L) 6.1 - 8.0 gm/dL [facility] Albumin 3.8 3.2 - 5.2 gm/dL [facility] Aspartate Aminotransferase 35(H) 0 - 30 unit/L [facility] Alanine Aminotransferase 36(H) 0 - 30 unit/L [facility] Alkaline Phosphatase 72 35 - 105 unit/L [facility] Bilirubin, Total 0.4 0.2 - 1.3 mg/dL [facility] Bilirubin, Direct 0.1 0.0 - 0.3 mg/dL [facility] Blood specimen (specimen) Venous Draw / Unknown 02/07/2020 7:29 AM EDT 02/07/2020 7:45 AM EDT Narrative Resulting Agency Comment Spec In Lab Rell Gutierrez MD CHEMISTRY ORDERABLES Performing Organization Address [facility]/ZIP Co de Phone Number [facility] [place] [address] * Lipase (02/07/2020 7:29 AM EDT) [facility] Lipase 28 0 - 60 unit/L [facility] Blood specimen (specimen) Venous Draw / Unknown 02/07/2020 7:29 AM EDT 02/07/2020 7:45 AM EDT Narrative Resulting Agency Comment Spec In Lab Rell Gutierrez MD CHEMISTRY ORDERABLES Performing Organization Address [facility] Co de Phone Number [facility] [place] [address] * (ABNORMAL) CRP, acute inflammation (02/07/2020 7:29 AM EDT) [facility] C-Reactive Protein 18.2(H) <=4.9 mg/L [facility] Blood specimen (specimen) Venous Draw / Unknown 02/07/2020 7:29 AM EDT 02/07/2020 7:45 AM EDT Narrative Resulting Agency Comment Spec In Lab Rell Gutierrez MD CHEMISTRY ORDERABLES Performing Organization Address City/[facility]/ZIP Co de Phone Number [facility] [place] [address] * Differential, Automated (02/07/2020 7:29 AM EDT) [facility] Neutrophil % 64.8 % [facility] Neutrophil Absolute 5.08 1.70 - 6.10 x10(3)/mcL [facility] Lymph % 27.1 % [facility] Lymphocytes Abs 2.1 0.9 - 3.2 x10(3)/[facility] Monocyte % 6.8 % [facility] Monocyte Abs 0.5 0.3 - 0.9 x10(3)/[facility] LAB[facility]ATORY Eos % 0.5 % [facility] Eosinophils Abs 0.0 0.0 - 0.4 x10(3)/[facility] LABORATORY Basophil % 0.5 % [facility] Baso Absolute 0.0 0.0 - 0.1 x10(3)/[facility] LAB[facility]ATORY Immature Gran % 0.30 % [facility] Comment: Immature granulocytes(IG's)percentage and absolute count will include metamyelocytes, myelocytes, and promyelocytes. Blood smears from CBCs yielding IG's will be scanned manually for concordance. If this scan disagrees with the automated IG or if promyelocytes are noted, a manual differential will be performed. Immature Gran Absolute 0.02 0.00 - 0.04 x10(3)/[facility] LAB[facility]ATORY Blood specimen (specimen) 02/07/2020 7:29 AM EDT 02/07/2020 7:45 AM EDT Narrative Resulting Agency Comment Spec In Lab Vik Justin MD HEMATOLOGY EDEN LOPES [facility] [place] [address] * (ABNORMAL) Hemogram (02/07/2020 7:29 AM EDT) White Blood Cell 7.8 4.0 - 9.5 x10(3)/ L [facility] Red Blood Cell 5.33(H) 4.00 - 5.21 x10(6)/ L [facility] Hemoglobin 13.7 11.7 - 15.5 gm/dL [facility] Hematocrit 45.2 35.7 - 45.8 % [facility] Mean Cell Volume 84.8 82.6 - 94.4 fL [facility] Mean Cell Hemoglobin 25.7(L) 27.1 - 32.0 pg [facility] Mean Cell Hemoglobin Concentration 30.3(L) 31.7 - 35.0 gm/dL [facility] Platelet 173 145 - 357 x10(3)/mc L [facility] RDW Standard Deviation 43.9 37.0 - 46.0 fL [facility] RDW coefficient of variation 14.2(H) 11.5 - 14.1 % [facility] Mean Platelet Volume 11.0 7.6 - 12.9 [facility] LAB[facility]ATORY NRBC% auto 0.0 % [facility] NRBC Absolute 0.000 0.000 - 0.000 x10(3)/mc L [facility] Blood specimen (specimen) 02/07/2020 7:29 AM EDT 02/07/2020 7:45 AM EDT Narrative Resulting Agency Comment Spec In Lab Vik Justin MD HEMATOLOGY ORDBelgica LOPES [facility] [place] [address] * Prothrombin Time (02/07/2020 7:29 AM EDT) Prothrombin Time 11.8 9.4 - 12.5 sec [facility] International Normalization Ratio 1.0 [facility] [...] Lab Vik Justin MD HEMATOLOGY ORDE RABLES [facility] [place] [address] * (ABNORMAL) pro-Brain Natriuretic Peptide (02/07/2020 7:29 AM EDT) NT-proBNP 893(H) <=125 pg/mL [facility] Blood specimen (specimen) 02/07/2020 7:29 AM EDT 02/07/2020 7:45 AM EDT Narrative Resulting Agency Comment Spec In Lab Vik Justin MD CHEMISTRY ORDER TOBI Performing Organization Address City/[facility]/ZIP Co de Phone Number [facility] [place] [address] * Lipid Panel (Reflex Direct LDL) (02/07/2020 7:29 AM EDT) Cholesterol, Total 186 mg/dL [facility] Comment: Lower Risk: <200 mg/dL Average Risk: 200-239 mg/dL Higher Risk: >su=788 mg/dL Triglyceride 161 mg/dL [facility] Comment: Average Risk/Lower Risk: <150 mg/dL Borderline High Risk: 150-199 mg/dL High Risk: 200-499 mg/dL Very High Risk: >ng=248 mg/dL HDL Cholesterol 34 mg/dL [facility] Comment: Males: ?? Higher Risk: <40 mg/dL Females: ?? HIgher Risk: <50 mg/dL LDL Cholesterol 120 mg/dL [facility] Comment: Lowest Risk: <100 mg/dL Lower Risk: 100-129 mg/dL Borderline High Risk: 130-159 mg/dL High Risk: 160-189 mg/dL Very High Risk: >fz=429 mg/dL Cholesterol/HDL Ratio 5.5 ratio [facility] Lipid Interpretation See Note [facility] Comment: Lipid management should be guided by a patient? s ASCVD risk, goals and preferences. ACC/AHA Guidelines recommend high intensity statin if clinical ASCVD or LDL greater than or equal to 190 mg/dL. http://[employer]/UUP-HVB-Yrvlhzplm Adults aged 40-75 with LDL 70-189 mg/dL should have their 10 year ASCVD risk estimated with the ACC/AHA ASCVD risk shop estimator http://tools.acc.org/EJURK-Mviw-Dltiommmu/ Statin should be discussed if risk greater [...] Lab Vik Justin MD CHEMISTRY ORDER TOBI [facility] [place] [address] * TSH (02/07/2020 7:29 AM EDT) Thyroid Stimulating Hormone 1.30 0.27 - 4.20 mcIU/mL [facility] Blood specimen (specimen) 02/07/2020 7:29 AM EDT 02/07/2020 7:45 AM EDT Narrative Resulting Agency Comment Spec In Lab Vik Justin MD CHEMISTRY ORDER TOBI Performing Organization Address City/[facility]/ZIP Co de Phone Number [facility] [place] [address] * (ABNORMAL) Troponin (02/07/2020 7:29 AM EDT) Troponin-T 0.10(H) 0.00 - 0.00 ng/mL [facility] Comment: Called by: graciela, Read back by: koby yates (software product manager), Date/Time:_02/07/20 08:14. The 99th percentile for Troponin T is less than 0.01 ng/mL, any detectable cTnT concentration using this assay should be considered elevated. According to the third universal definition of myocardial infarction the following criteria with a clinical presentation consistent with acute myocardial ischemia meets the diagnosis for a myocardial infarction (PR). Detection of a rise and/or fall of cTnT, with at least one value greater than the 99th percentile (> or = 0.01) and with at least one of the following ?? Symptoms of ischemia ?? New or presumed new significant HF-nuenbra-J wave (ST-T) changes or new left bundle [...] additional sample may be indicated. Reference: Third Aromas Definition of Myocardial Infarction. Journal of the [place] College of [employer]iology 2012;60:1581-98 Blood specimen (specimen) 02/07/2020 7:29 AM EDT 02/07/2020 7:45 AM EDT Narrative Resulting Agency Comment Spec In Lab Vik Justin MD CHEMISTRY ORDER TOBI [facility] [place] [address] * (ABNORMAL) BMP w/fasting Glucose (02/07/2020 7:29 AM EDT) Glucose Fasting 155(H) 65 - 99 mg/dL [facility] Comment: ?Fasting* Glucose Interpretive [...] of Diabetes Mellitus, Position Statement from the [place] Diabetes Association. ??Diabetes Care, Volume 33, Supplement 1, May 2009 Blood Urea Nitrogen 7(L) 8 - 18 mg/dL [facility] Creatinine 0.69(L) 0.70 - 1.20 mg/dL [facility] Sodium 139 135 - 145 mmol/L [facility] Potassium 4.1 3.5 - 5.0 mmol/L [facility] Comment: Please note: ??Patients with WBC >100,000 may have falsely elevated Potassium levels. ??For accurate Potassium quantification in these patients send serum separator tube (gold top) for subsequent determinations. ??Contact the Clinical Chemistry Laboratory if there are any questions. Chloride 105 98 - 107 mmol/L [facility] Carbon Dioxide 21(L) 22 - 31 mmol/L [facility] Anion Gap 13 5 - 15 mmol/L [facility] Calcium 8.1(L) 8.5 - 10.5 mg/dL [facility] Est Glomerular Filtration Rate 96 >=60 mL/min/1. 73 m?? [facility] Comment: The eGFR was calculated using the CKD-EPI equation. As with all creatinine based estimates of kidney function, eGFR values calculated with the CKD-EPI equation are not accurate in patients with acute kidney failure, extremes of body mass or the acutely ill. http://[employer]/[facility] GUTHRIEnkf eGFR 111 >=60 mL/min/1. 73 m?? [facility] Comment: The eGFR was calculated using the CKD-EPI equation. As with all creatinine based estimates of kidney function, eGFR values calculated with the CKD-EPI equation are not accurate in patients with acute kidney failure, extremes of body mass or the acutely ill. http://[employer]/[facility] GUTHRIEnkf Blood specimen (specimen) 02/07/2020 7:29 AM EDT 02/07/2020 7:45 AM EDT Narrative Resulting Agency Comment Spec In Lab Vik Justin MD CHEMISTRY ORDER TOBI [facility] [place] [address] * EKG 12 Lead (02/07/2020 6:33 AM EDT) Ventricular rate 80 BPM MUSE SYSTEM Atrial Rate 80 BPM MUSE SYSTEM P-R Interval 150 ms MUSE SYSTEM QRS Duration 82 ms MUSE SYSTEM Q-T Interval 426 ms MUSE SYSTEM QTC Calculated (Bezet) 491 ms MUSE SYSTEM Calculated P Astor 54 degrees MUSE SYSTEM Calculated R Astor 6 degrees MUSE SYSTEM Calculated T Astor 103 degrees MUSE SYSTEM INTERPRETATION Normal sinus rhythm Anterior infarct , age undetermined Possible Left atrial enlargement T wave abnormality, consider lateral ischemia Abnormal ECG No previous ECGs available I personally reviewed the tracing and edited the fellows interpretation Confirmed by fellow Fabian Waters ([id number]) on 02/07/2020 2:39:52 PM Confirmed by MD LENCHO, KOBY ([id number]) on 02/08/2020 5:36:22 PM MUSE SYSTEM 02/07/2020 6:33 AM EDT 02/08/2020 5:36 PM EDT Vik Justin MD ECG ORDERABLES Performing Organization Address City/[facility] Co de Phone Number MUSE SYSTEM documented [...] Babcock, SHAR) 0816 (Given - Provider: Ann Shea V, SHAR) atorvastatin (Lipitor) tablet 80 mg 80 mg, [...] Babcock, SHAR) 0816 (Given - Provider: Ann Shea V, SHAR) enoxaparin (LOVENOX) injection 40 mg 40 mg, Subcutaneous, EVERY 12 HOURS SCHEDULED, First dose (after last modification) on Fri02/08/20 at 2100, Until Discontinued, Routine 2100 (Given - Provider: Gamaliel Shelton RN) 0819 (Given - Provider: Ann Mari RN) furosemide (LASIX) injection 40 mg (COMPLETED) 40 mg, Intravenous, ONCE, 1 dose, On Fri02/07/20 at 1045, Routine 1049 (Given - Provider: Alyce Navarro, SHAR) furosemide (LASIX) injection 40 mg (COMPLETED) 40 [...] met) 0808 (Given - Provider: Maribel Babcock, RN)0939 (Given - Provider: Maribel Babcock, RN) insulin lispro (HumaLOG) VIAL injection 2-12 [...] Maribel Babcock, SHAR)2059 (Given - Provider: Gamaliel Shelton RN) 0848 (Given - Provider: Ann Mari RN)1130 (Due) liothyronine (Cytomel) tablet 5 mcg 5 mcg, Oral, DAILY, First dose on Fri02/08/20 at 0600, Until Discontinued, Routine 1401 (JUL Hold - Provider: Admin Adt - Reason: Transfer to a Procedural area)1549 (JUL Unhold - Provider: Admin Adt) 0622 (Given - Provider: Lissa Sabillon, SHAR) 0518 (Given - Provider: Gamaliel Shelton, SHAR) losartan (Cozaar) tablet 12.5 mg 12.5 mg, Oral, DAILY, First dose on Fri02/08/20 at 1015, Until Discontinued, Routine 1134 (Given - Provider: Maribel Babcock, SHAR) 0817 (Given - Provider: Ann Mari RN) magnesium sulfate 2 g in sterile water 50 mL (COMPLETED) 2 g, Intravenous, ONCE, 1 dose, On Fri02/08/20 at 0615, Administer over 120 Minutes 0623 (New Bag - Provider: Lissa Sabillon RN)0823 (Stopped - Provider: Maribel Babcock, SHAR) magnesium [...] Babcock, RN)2100 (Given - Provider: Gamaliel Shelton, SHAR) [...] - Reason: Transfer to a Procedural area)1549 ([facility] Unhold - Provider: Admin Adt)1600 (Rate/Dose Verify [...] - Reason: Transfer to a Procedural area)1549 ([facility] Unhold - Provider: Admin Adt) 0109 (Given - Provider: Lissa Sabillon RN) clonazePAM (KlonoPIN) tablet 0.5 mg 0.5 mg, Oral, 2 TIMES DAILY PRN, Starting on Fri02/07/20 at 0921, Until Fri02/09/20 at 1430, Anxiety, DO NOT SPLIT, CRUSH OR OPEN, Routine 1401 ([facility] Hold - Provider: Admin Adt - Reason: Transfer to a Procedural area)1549 ([facility] Unhold - Provider: Admin Adt) cyclobenzaprine (Flexeril) tablet 10 mg 10 mg, Oral, 3 TIMES DAILY PRN, Starting on Fri02/07/20 at 0921, Until Fri02/09/20 at 1430, Muscle spasms, Routine 1401 ([facility] Hold - Provider: Admin Adt - Reason: Transfer to a Procedural area)1549 ([facility] Unhold - Provider: Admin Adt) dextrose 10% [...] the duration of the active insulin. 0755 ([facility] Hold - Provider: Admin Adt - Reason: Transfer to a Procedural area)0906 ([facility] Unhold - Provider: Admin Adt)1401 (JUL Hold - Provider: Admin Adt - Reason: Transfer to a Procedural area)1549 (JUL Unhold - Provider: Admin Adt) fentaNYL (PF) [...] Procedural area)09 (JUL Unhold - Provider: Admin Adt)140 (JUL Hold - Provider: Admin Adt - Reason: Transfer to a Procedural area)1549 ([facility] Unhold - Provider: Admin Adt) heparin (porcine) 1,000 unit/mL injection (CANCELED) ONCE PRN, Starting on Fri02/07/20 at 0823, Until Fri02/07/20 at 0921, Cath (Intra-Procedure), Routine 0823 (Given - Provider: Elsie Camacho RN) heparin (porcine) 1,000 unit/mL injection (CANCELED) ONCE PRN, Starting on Fri02/07/20 at 1420, Until Fri02/07/20 at 1527, Cath (Intra-Procedure), Routine 1420 (Given - Provider: Ekaterina Romo RN)142 (Given - Provider: Elsie Camacho RN) iohexoL (Omnipaque) 350 mg/mL solution (CANCELED) ONCE PRN, Starting on Fri02/07/20 at 0847, Until Fri02/07/20 at 1527, Cath (Intra-Procedure), Routine 08 (Given - Provider: Todd Garcia MD) iohexoL [...] for discomfort with PIV insertion, Routine 1401 ([facility] Hold - Provider: Admin Adt - Reason: Transfer to a Procedural area)1549 ([facility] Unhold - Provider: Admin Adt) midazolam (PF) [...] Routine documented in this encounter Care Teams Marketing Database Consultant Relationship Specialty Start Date End Date Francy Lowe, JERSEY PCP - General Family Medicine 10/19/19 02/11/21 documented as of this encounter
--- OUTSIDE RECORDS SUMMARY | 2024-05-21 20:18 | XMS_ITS | Encounter Summary ---
[place] [address] Care Team Providers Care Security Guards Dispatcher Name Role Phone Francy Lowe APRN Primary Care Provider + Encounter Details Date Type Department Care Team (Late st Contact Info) Description 02/07/2020 Telephone [place] [phone] Maria Saenz MD Social History Tobacco Use Types Packs/Day Years [...] AM Referring provider: Dr. Richey Patient location: [place], [place] Past Medical History: HLD Diabetes on [...] on filedocumented in this encounter Care Teams Security Guards Dispatcher Relationship Specialty Start Date End Date Francy Lowe APRN PCP - General Family Medicine 10/19/19 02/11/21 documented as of this encounter
--- OUTSIDE RECORDS SUMMARY | 2024-05-21 20:18 | XMS_ITS | Encounter Summary ---
Author Organization [facility] [place] [address] Care Team Providers Care Ed Tech Name Role Phone Francy Lowe APRN Primary Care Provider + Encounter Details Date Type Department Care Team (Late st Contact Info) Description 02/07/2020 External [place] [phone] Social History Tobacco Use Types Packs/Day Years [...] on filedocumented in this encounter Care Teams Ed Tech Relationship Specialty Start Date End Date Francy Lowe APRN PCP - General Family Medicine 10/19/19 02/11/21 documented as of this encounter
--- OUTSIDE RECORDS SUMMARY | 2024-05-21 20:19 | XMS_ITS | Encounter Summary ---
Author Organization [facility] [place] [address] Care Team Providers Care Coal Inspector Name Role Phone Radha Fry MD Primary Care Provider [phone] Encounter Details Date Type Department Care Team (Late st Contact Info) Description 04/13/2013 8:00 AM EST Office [facility] [address] [place] [phone] Elvin Whiting MD [address] [place] [address] [place] [address] Social History Tobacco Use Types Packs/Day Years [...] on filedocumented in this encounter Care Teams Coal Inspector Relationship Specialty Start Date End Date Radha Fry MD PCP - General 07/22/11 11/17/18 documented as of this encounter
--- OUTSIDE RECORDS SUMMARY | 2024-05-21 20:19 | XMS_ITS | Encounter Summary ---
Author Organization [facility] [place] [address] Care Team Providers Care Truck Driver Salesperson Name Role Phone Radha Fry MD Primary Care Provider [phone] Encounter Details Date Type Department Care Team (Late st Contact Info) Description 08/11/2014 8:10 AM EDT [facility] [address] [place] [phone] Elvin Whiting MD [address] [place] [address] [place] [address] Social History Tobacco Use Types Packs/Day Years [...] on filedocumented in this encounter Care Teams Truck Driver Salesperson Relationship Specialty Start Date End Date Radha Fry MD PCP - General 07/22/11 11/17/18 documented as of this encounter
--- OUTSIDE RECORDS SUMMARY | 2024-05-21 20:19 | XMS_ITS | Encounter Summary ---
Author Organization [facility] [place] [address] Care Team Providers Care Viticulturist Name Role Phone Radha Fry MD Primary Care Provider [phone] Encounter Details Date Type Department Care Team (Late st Contact Info) Description 02/09/2013 7:00 AM EDT Office Visit [address] [phone] Elvin Whiting MD [address] [place] [address] [place] [address] Social History Tobacco Use Types Packs/Day Years [...] on filedocumented in this encounter Care Teams Viticulturist Relationship Specialty Start Date End Date Radha Fry MD PCP - General 07/22/11 11/17/18 documented as of this encounter
--- OUTSIDE RECORDS SUMMARY | 2024-05-21 20:19 | XMS_ITS | Encounter Summary ---
[place] [address] Care Team Providers Care Lead Programmer Analyst Name Role Phone Radha Fry MD Primary Care Provider [phone] Encounter Details Date Type Department Care Team (Late st Contact Info) Description 04/14/2015 Abstract [facility] [employer] [address] [place] [address] Provider, His MD Deven None Social History Tobacco Use Types Packs/Day [...] filedocumented in this encounter Care Teams Lead Programmer Analyst Relationship Specialty Start Date End Date Radha Fry MD PCP - General 07/22/11 11/17/18 documented as of this encounter
--- OUTSIDE RECORDS SUMMARY | 2024-05-21 20:19 | XMS_ITS | Encounter Summary ---
Author Organization [facility] [place] [address] Care Team Providers Care Match Up Worker Name Role Phone Radha Fry MD Primary Care Provider [phone] Encounter Details Date Type Department Care Team (Late st Contact Info) Description 08/23/2014 8:40 AM EDT Office Visit [facility] [address] [place] [phone] Elvin Whiting MD [address] [place] [address] ORTHOPAEDIC [place] [address] Social History Tobacco Use Types Packs/Day Years [...] on filedocumented in this encounter Care Teams Match Up Worker Relationship Specialty Start Date End Date Radha Fry MD PCP - General 07/22/11 11/17/18 documented as of this encounter
--- OUTSIDE RECORDS SUMMARY | 2024-05-21 20:19 | XMS_ITS | Encounter Summary ---
Author Organization [facility] [place] [address] Care Team Providers Care Microcomputer Support Specialist Name Role Phone Radha Fry MD Primary Care Provider Encounter Details Date Type Department Care Team (Late st Contact Info) Description 03/18/2018 Orders Only Orthopaedics at [address] [phone] Elvin Whiting MD [address] [place] [address] [place] [address] Primary osteoarthritis of left knee Social History [...] leg documented in this encounter Care Teams Microcomputer Support Specialist Relationship Specialty Start Date End Date Radha Fry MD PCP - General 07/22/11 11/17/18 documented as of this encounter
--- OUTSIDE RECORDS SUMMARY | 2024-05-21 20:19 | XMS_ITS | Encounter Summary ---
Author Organization [facility] [place] [address] Care Team Providers Care Senior Front End Engineer Name Role Phone Radha Fry MD Primary Care Provider [phone] Encounter Details Date Type Department Care Team (Late st Contact Info) Description 01/19/2013 3:10 PM EDT Office Visit [facility] [address] [place] [phone] Elvin Whiting MD [address] [place] [address] [place] [address] Social History Tobacco Use Types Packs/Day Years [...] filedocumented in this encounter Care Teams Senior Front End Engineer Relationship Specialty Start Date End Date Radha Fry MD PCP - General 07/22/11 11/17/18 documented as of this encounter
--- OUTSIDE RECORDS SUMMARY | 2024-05-21 20:19 | XMS_ITS | Encounter Summary ---
Author Organization [facility] [place] [address] Care Team Providers Care Reclamation Engineer Name Role Phone Gonzalez Sloan MD Primary Care Provider [phone] Encounter Details Date Type Department Care Team (Late st Contact Info) Description 08/24/2010 Orders Only Ob[place] [phone] Bill Banks MD [facility] OBSTETRICS [place] [address] Social History Tobacco Use Types Packs/Day Years [...] on filedocumented in this encounter Care Teams Reclamation Engineer Relationship Specialty Start Date End Date Gonzalez Sloan MD [place] [address] [address] [place] [address] PCP - General 04/03/10 04/14/11 documented as of this encounter
--- OUTSIDE RECORDS SUMMARY | 2024-05-21 20:19 | XMS_ITS | Encounter Summary ---
Author Organization [facility] [place] [address] Care Team Providers Care Zinc Plate Grainer Name Role Phone Radha Fry MD Primary Care Provider [phone] Encounter Details Date Type Department Care Team (Late st Contact Info) Description 10/31/2011 11:00 AM EDT Office Visit [address] [phone] Elvin Whiting MD [address] [place] [address] [place] [address] Social History Tobacco Use Types Packs/Day Years [...] on filedocumented in this encounter Care Teams Zinc Plate Grainer Relationship Specialty Start Date End Date Radha Fry MD PCP - General 07/22/11 11/17/18 documented as of this encounter
--- OUTSIDE RECORDS SUMMARY | 2024-05-21 20:19 | XMS_ITS | Encounter Summary ---
[place] [address] Care Team Providers Care Family Development Extension Specialist Name Role Phone Radha Fry MD Primary Care Provider [phone] Encounter Details Date Type Department Care Team (Latest Contact Info) Description 03/19/2018 2:00 PM EST Ancillary Procedure XRay at [address] [phone] Elvin Whiting MD [address] [place] [address] [place] [address] Primary osteoarthritis of left knee Social History [...] leg documented in this encounter Care Teams Family Development Extension Specialist Relationship Specialty Start Date End Date Radha Fry MD PCP - General 07/22/11 11/17/18 documented as of this encounter
--- OUTSIDE RECORDS SUMMARY | 2024-05-21 20:19 | XMS_ITS | Encounter Summary ---
Author Organization [facility] [place] [address] Care Team Providers Care Sports Coordinator Name Role Phone Radha Fry MD Primary Care Provider [phone] Encounter Details Date Type Department Care Team (Late st Contact Info) Description 08/07/2012 10:40 AM EDT [facility] [address] [place] [phone] Elvin Whiting MD [address] [place] [address] [place] [address] Social History Tobacco Use Types Packs/Day Years [...] on filedocumented in this encounter Care Teams Sports Coordinator Relationship Specialty Start Date End Date Radha Fry MD PCP - General 07/22/11 11/17/18 documented as of this encounter
--- OUTSIDE RECORDS SUMMARY | 2024-05-21 20:19 | XMS_ITS | Encounter Summary ---
Author Organization [facility] [place] [address] Care Team Providers Care Mold Puller Name Role Phone Radha Fry MD Primary Care Provider [phone] Encounter Details Date Type Department Care Team (Late st Contact Info) Description 04/06/2013 9:25 AM EST Office Visit MR at [address] [address] Social History Tobacco Use Types [...] on filedocumented in this encounter Care Teams Mold Puller Relationship Specialty Start Date End Date Radha Fry MD PCP - General 07/22/11 11/17/18 documented as of this encounter
--- OUTSIDE RECORDS SUMMARY | 2024-05-21 20:19 | XMS_ITS | Encounter Summary ---
Author Organization [facility] [place] [address] Care Team Providers Care Forest Fire Specialist Supervisor Name Role Phone Radha Fry MD Primary Care Provider [phone] Reason for Visit * Reason Comments Right Knee Pain s/p R TKA September 2009 b y srd Encounter Details Date Type Department Care Team (Late st Contact Info) Description 09/15/2015 3:20 PM EDT Office Visit Orthopaedics at [address] [phone] Elvin Whiting MD [address] [place] [address] [place] [address] Primary osteoarthritis of right knee (Primary Dx) [...] is going to be moving up to [place]. Wanted to check in to see me [...] and should require her to have an almsx-ncqth-lisq followup with me for consideration of x-rays [...] leg documented in this encounter Care Teams Forest Fire Specialist Supervisor Relationship Specialty Start Date End Date Radha Fry MD PCP - General 07/22/11 11/17/18 documented as of this encounter
--- OUTSIDE RECORDS SUMMARY | 2024-05-21 20:19 | XMS_ITS | Encounter Summary ---
Author Organization [facility] [place] [address] Care Team Providers Care Cook At School Name Role Phone Radha Fry MD Primary Care Provider [phone] Encounter Details Date Type Department Care Team (Late st Contact Info) Description 12/23/2017 Ancillary Procedure Radiology Library at [facility] [place] [phone] Tony Rivera APRN Social History Tobacco Use Types Packs/Day Years [...] is for storage only. Tony Rivera APRN IMG FILM LIBRARY ORDERABLES JAMES [place] documented in this encounter Visit Diagnoses Not on filedocumented in this encounter Care Teams Cook At School Relationship Specialty Start Date End Date Radha Fry MD PCP - General 07/22/11 11/17/18 documented as of this encounter
--- OUTSIDE RECORDS SUMMARY | 2024-05-21 20:19 | XMS_ITS | Encounter Summary ---
Author Organization [facility] [place] [address] Care Team Providers Care Ballistics Expert Forensic Name Role Phone Radha Fry MD Primary Care Provider [phone] Encounter Details Date Type Department Care Team (Late st Contact Info) Description 08/11/2012 10:50 AM EDT Office Visit [facility] [address] [place] [phone] Elvin Whiting MD [address] [place] [address] [place] [address] Social History Tobacco Use Types Packs/Day Years [...] on filedocumented in this encounter Care Teams Ballistics Expert Forensic Relationship Specialty Start Date End Date Radha Fry MD PCP - General 07/22/11 11/17/18 documented as of this encounter
--- OUTSIDE RECORDS SUMMARY | 2024-05-21 20:19 | XMS_ITS | Encounter Summary ---
Author Organization [facility] [place] [address] Care Team Providers Care Director Oncology Name Role Phone Radha Fry MD Primary Care Provider [phone] Encounter Details Date Type Department Care Team (Late st Contact Info) Description 11/28/2014 11:10 AM EDT Office Visit Orthopaedics at [address] [phone] Elvin Whiting MD [address] [place] [address] [place] [address] Social History Tobacco Use Types Packs/Day Years [...] filedocumented in this encounter Care Teams Director Oncology Relationship Specialty Start Date End Date Radha Fry MD PCP - General 07/22/11 11/17/18 documented as of this encounter
--- OUTSIDE RECORDS SUMMARY | 2024-05-21 20:19 | XMS_ITS | Encounter Summary ---
Author Organization [facility] [place] [address] Care Team Providers Care Instrumentation Supervisor Name Role Phone Gonzalez Sloan MD Primary Care Provider [phone] Encounter Details Date Type Department Care Team (Late st Contact Info) Description 07/17/2010 8:45 AM EST Office Visit Obstetrics [place] [address] Bill Banks MD [facility] OBSTETRICS [place] [address] Discharge Disposition: Home Social History Tobacco Use [...] on filedocumented in this encounter Care Teams Instrumentation Supervisor Relationship Specialty Start Date End Date Gonzalez Sloan MD [address] [address] PCP - General 04/03/10 04/14/11 documented as of this encounter
--- OUTSIDE RECORDS SUMMARY | 2024-05-21 20:19 | XMS_ITS | Encounter Summary ---
[place] [address] Care Team Providers Care Structural Iron Worker Name Role Phone Radha Fry MD Primary Care Provider Encounter Details Date Type Department Care Team (Late st Contact Info) Description 12/10/2011 8:45 AM EDT Office Visit [facility] [address] [place] [address] Fitz Post PA [address] [facility] [place] [address] Social History Tobacco Use Types Packs/Day Years [...] on filedocumented in this encounter Care Teams Structural Iron Worker Relationship Specialty Start Date End Date Radha Fry MD PCP - General 07/22/11 11/17/18 documented as of this encounter
--- OUTSIDE RECORDS SUMMARY | 2024-05-21 20:19 | XMS_ITS | Encounter Summary ---
[place] [address] Care Team Providers Care Nurse Obgyn Name Role Phone Gonzalez Sloan MD Primary Care Provider [phone] Encounter Details Date Type Department Care Team (Late st Contact Info) Description 12/14/2010 Abstract [facility] [address] [place] [address] Chrissy Mendoza, RN Social History Tobacco Use Types Packs/Day [...] filedocumented in this encounter Care Teams Nurse Obgyn Relationship Specialty Start Date End Date Gonzalez Sloan MD [place] [address] [address] [place] [address] PCP - General 04/03/10 04/14/11 documented as of this encounter
--- OUTSIDE RECORDS SUMMARY | 2024-05-21 20:19 | XMS_ITS | Encounter Summary ---
[place] [address] Care Team Providers Care Oxygen Therapist Name Role Phone Radha Fry MD Primary Care Provider [phone] Reason for Visit * Reason Onset Date Comments Medication Refill 05/23/2015 Encounter Details Date Type Department Care Team ([facility] st Contact Info) Description 05/23/2015 Telephone Orthopaedics at [address] [phone] Elvin Whiting MD [address] [place] [address] [place] [address] Medication Refill Social History Tobacco Use Types [...] Amoxicillin for her dental procedure called into [facility] Please call her at [phone] when done. documented in this encounter Plan of Treatment Not on file documented as of this encounter Visit Diagnoses Diagnosis History of total knee arthroplasty, right documented in this encounter Care Teams Oxygen Therapist Relationship Specialty Start Date End Date Radha Fry MD PCP - General 07/22/11 11/17/18 documented as of this encounter
--- OUTSIDE RECORDS SUMMARY | 2024-05-21 20:19 | XMS_ITS | Encounter Summary ---
[place] [address] Care Team Providers Care Clinical Project Manager Name Role Phone Radha Fry MD Primary Care Provider [phone] Encounter Details Date Type Department Care Team (Late st Contact Info) Description 12/06/2014 1:50 PM EDT Office Visit Orthopaedics at [address] [phone] Elvin Whiting MD [address] [place] [address] [place] [address] Social History Tobacco Use Types Packs/Day Years [...] filedocumented in this encounter Care Teams Clinical Project Manager Relationship Specialty Start Date End Date Radha Fry MD PCP - General 07/22/11 11/17/18 documented as of this encounter
--- OUTSIDE RECORDS SUMMARY | 2024-05-21 20:19 | XMS_ITS | Encounter Summary ---
[place] [address] Care Team Providers Care On Air Director Name Role Phone Radha Fry MD Primary Care Provider [phone] Reason for Visit * Reason Comments Left Knee Pain Left knee pain Encounter Details Date Type Department Care Team ([facility] st Contact Info) Description 03/19/2018 1:40 PM EST Office Visit Orthopaedics at [address] [phone] Sofie Sutton MD [address] [place] [address] [place] [address] Primary osteoarthritis of left knee Social History Tobacco Use Types Packs/Day Years Used Date Smoking Tobacco: Every Day Cigarettes Sex and Gender Information Value Date Recorded Sex Assigned at Not on file Gender Identity Female 02/07/2020 7:29 AM EDT Sexual Orientation Not on file documented as of this encounter Progress Notes * Sofie Sutton MD - 03/19/2018 1:40 PM EST Chrissy Sarkar CMA, have performed the documentation for this encounter in the presence of and acting as a scribe for SOFIE SUTTON MD. Visit type: FUV (last seen [...] ??? Carpal tunnel syndrome G56.00 ??? Cystocele [id number] ??? Degeneration of intervertebral disc of lumbar [...] bursitis M70.60 ??? Atopic rhinitis J30.9 Medications 11/8/18 1347 Medication Sig Taking? clonazePAM (KLONOPIN) 0.5 [...] Good pulses IMAGING: X-Rays taken on at [facility] were reviewed with the patient and shows: [...] leg documented in this encounter Care Teams On Air Director Relationship Specialty Start Date End Date Radha Fry MD PCP - General 07/22/11 11/17/18 documented as of this encounter
[2024-05-22 22:49] LABS: T3, Total 148 ng/dL (97-169)
== END 2024-05-21 20:09 | disposition home or self-care (01) ==
LOC: NCHCN 20:08
PROVIDERS: PCP Internal Medicine; Visit Provider Physician Assistant
DX: E06.3 Autoimmune thyroiditis (principal)
CPT/HCPCS: 80053; 83735; 84439; 84443; 84480; 85025

== ENCOUNTER 2024-06-25 10:59 | Outpatient (REF) | payer MEDICARE, SELFPAY ==
--- OUTSIDE RECORDS SUMMARY | 2024-06-25 11:01 | XMS_ITS | Continuity of Care Document ---
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) - 06/08/24 Discharge Disposition: Home or Self Care Attending Physician: Celia Mckinney DO Encounter Type: Clinic Allergies, Adverse Reactions, Alerts Substance Criticality Severity Reaction Reaction Severity Status codeine Unable to assess criticality Unknown Active indomethacin Unable to assess criticality Unknown Active cortisone Unable to assess criticality Unknown Active sertraline Unable to assess criticality Unknown Active atorvastatin Unable to assess criticality Unknown Active exenatide Unable to assess criticality Unknown Active metFORMIN Unable to assess criticality Unknown Active hydrocodone-acetaminop hen Unable to assess criticality Unknown Active citalopram Unable to assess criticality Unknown Active escitalopram Unable to assess criticality Unknown Active rosuvastatin Unable to assess criticality Unknown Active ezetimibe-simvastatin Unable to assess criticality Unknown Active buPROPion Unable to assess criticality Unknown Active predniSONE Unable to assess criticality Unknown Active DULoxetine Unable to assess criticality Unknown Active liraglutide Unable to assess criticality Unknown Active Tape Unable to assess criticality Unknown Active oxycodone-acetaminophe n Unable to assess criticality Unknown Active Assessment [...] Range]: 1 Peripheral Pulse Rate [60-100 bpm] 85 bp m (06/08/24 3:00 PM) Respiratory Rate [12-24 br/min] 20 br/mi n (06/08/24 3:00 PM) Blood Pressure [90-120/60-80 mmHg] 117/7 1mmHg (06/08/24 3:00 PM) Mean Arterial Pressure, Cuff [65-140 mmH g] 86 mmHg (06/08/24 3:00 PM) Social History Social History Type Response Tobacco Current everyday tob acco user Tobacco Use:. 1 ppd per day. Sex Sex Representation Female (finding) Patient Care team information Care Team Personnel Name: FITO MENG (JEAN)ROMEO Position: No Access Member Role: Primary Care Physician Address: [address] [place] [address] Telecom: Insurance Providers Guarantor name: DIPTI Health Plan Information #: 1 Payer: [employer] Member Number: [id number] Policy Number: NA Group Number: [id number] Health Plan Information #: 2 Payer: [employer] CLAIM[employer] Member Number: [id number] Policy Number: NA Group Number: [id number]
--- OUTSIDE RECORDS SUMMARY | 2024-06-25 11:02 | XMS_ITS | Encounter Summary ---
Author Organization [facility] Address [address] [place] [address] Care Team Providers Care Leaf Tier Name Role Phone Francy Lowe LEAKAGE TESTER Primary Care Provider [phone] Encounter Details Date Type Department Care Team (Late st Contact Info) Description 02/16/[address] [facility] Spine Program - [address] [place] [address] Fariba Darling, TAQUERIA [address] [facility] [place] [address] Low back pain, unspecified back [...] present documented in this encounter Care Teams Leaf Tier Relationship Specialty Start Date End Date Francy Lowe NP PCP - General 11/30/20 documented as of this encounter
--- OUTSIDE RECORDS SUMMARY | 2024-06-25 11:02 | XMS_ITS | Referral Summary ---
Author Organization [facility] Address [address] [place] [address] Care Team Providers Care Lawn Mower Repairer Name Role Phone BryFrancy villagran ORAL SURGERY ASSISTANT Primary Care Provider [phone] Encounters Date Type Department Care Team Description 05/22/2024 Lab Requisition [facility] Pathology & Laboratory Medicine - [facility] [address] [place] [address] Outr Resulting Lab, Provider from Last 3 Months Allergies Active Allergy Reactions Criticality Noted Date [...] Date/Time Associated Diagnosis Comments T3, TOTAL Routine 05/21/2024 15:00 EST HEPATITIS C AB W REFLEX TO HCV RNA BY PCR Today 09/12/2020 12:07 EDT from Last 3 Months or Most Recently Relevant to Health Maintenance Results * T3, TOTAL (05/21/2024 15:00 EST) T3, Total 148 97 - 169 ng/dL 05/22/2024 22:43 EST [facility] Blood VENOUS BLOOD / Unknown 05/21/2024 15:00 EST 05/22/2024 21:58 EST us Provider Outr Resulting Lab CHEMISTRY & BLOOD GA S ORDERABLES Final Result [facility] [address] [place] [address] * HEPATITIS C AB W REFLEX TO HCV RNA BY PCR (09/12/2020 12:07 EDT) Hep C Antibody Negative Negative 09/13/2020 10:17 EDT [facility] Blood VENOUS BLOOD / Unknown 09/12/2020 12:07 EDT 09/12/2020 20:24 EDT us Provider Outr Resulting Lab CHEMISTRY & BLOOD GA S ORDERABLES Final Result [facility] [address] [place] [address] from Last 3 Months or Most Recently Relevant to Health Maintenance Insurance [employer] MEDICARE Care Teams Lawn Mower Repairer Relationship Specialty Start Date End Date Francy Lowe NP PCP - General 11/30/20
--- OUTSIDE RECORDS SUMMARY | 2024-06-25 11:02 | XMS_ITS | Encounter Summary ---
Author Organization [facility] Address [address] [place] [address] Care Team Providers Care Assistant Women'S Tennis Coach Name Role Phone AdeFrancy orosco Pauline CASTING MACHINE OPERATOR Primary Care Provider [phone] Encounter Details Date Type Department Care Team (Latest Contact Info) Description 03/05/2021 10:48 EDT - 03/05/2021 23:59 EDT Hospital Encounter [facility] [address] [place], [place] [id number] Low back pain, unspecified back pain laterality, [...] present documented in this encounter Care Teams Assistant Women'S Tennis Coach Relationship Specialty Start Date End Date Francy Lowe NP PCP - General 11/30/20 documented as of this encounter
--- OUTSIDE RECORDS SUMMARY | 2024-06-25 11:02 | XMS_ITS | Encounter Summary ---
Author Organization [facility] Address [address] [place] [address] Care Team Providers Care Taxonomy Teacher Name Role Phone Vicentevashti Kenia Vashti SWING FRAME GRINDER OPERATOR Primary Care Provider [phone] Francy Lowe SWING FRAME GRINDER OPERATOR Primary Care Provider [phone] Encounter Details Date Type Department Care Team (Late st Contact Info) Description 09/12/2020 Lab Requisition [facility] Pathology & Laboratory Medicine - [facility] [address] [place], [place] [address] Outr Resulting Lab, Provider Social History Tobacco [...] Hold Hold 09/12/2020 21:32 EDT [facility] Blood VENOUS BLOOD / Unknown 09/12/2020 12:07 EDT 09/12/2020 20:29 EDT us Provider Outr Resulting Lab LAB INFO SERVICE AND SUPPORT & PHONE RESULT Final Result Performing Organization Address [facility] Co de Phone Number [facility] [address] [place] [address] * HEPATITIS B SURFACE ANTIBODY (09/12/2020 12:07 EDT) [facility] Hep B Surface Ab, Quantitative <3.1 See Note mIU/mL 09/13/2020 10:22 EDT [facility] Comment: Reference Range for Hep B Surface Ab, Quant: Positive: >= 10.0 mIU/mL Negative: ??< 10.0 mIU/mL Patient is presumed to not be immune to infection with Hepatitis B Virus. Hep B Surface Ab, Qualitative Negative See Note 09/13/2020 10:22 EDT [facility] Comment: Reference Range for Hep B Surface Ab, Qual: Unvaccinated: ??Negative Vaccinated: ??Positive Blood VENOUS BLOOD / Unknown 09/12/2020 12:07 EDT 09/12/2020 20:29 EDT us Provider Outr Resulting Lab CHEMISTRY & BLOOD GA S ORDERABLES Final Result Performing Organization Address [facility] Co de Phone Number [facility] [address] [place] [address] * HEPATITIS C AB W REFLEX TO HCV RNA BY PCR (09/12/2020 12:07 EDT) [facility] Hep C Antibody Negative Negative 09/13/2020 10:17 EDT [facility] Blood VENOUS BLOOD / Unknown 09/12/2020 12:07 EDT 09/12/2020 20:24 EDT us Provider Outr Resulting Lab CHEMISTRY & BLOOD GA S ORDERABLES Final Result Performing Organization Address City/[facility]/ZIP Co de Phone Number [facility] [address] [place] [address] * HEPATITIS A TOTAL ANTIBODY W REFLEX (09/12/2020 12:07 EDT) Hepatitis A Antibody, Total Negative Negative 09/13/2020 11:07 EDT [facility] Blood VENOUS BLOOD / Unknown 09/12/2020 12:07 EDT 09/12/2020 20:29 EDT Narrative [facility] - 09/13/2020 11:07 EDT The result of this assay can be falsely elevated (Positive) due to the consumption of Biotin. Provider Outr Resulting Lab CHEMISTRY & BLOOD GA S ORDERABLES Final Result Performing Organization Address City/[facility] Co de Phone Number [facility] [address] [place] [address] documented in this encounter Visit Diagnoses Not on filedocumented in this encounter Care Teams Taxonomy Teacher Relationship Specialty Start Date End Date Kenia Hernandez SWING FRAME GRINDER OPERATOR [address] [place] [address] PCP - General 06/04/16 11/29/20 Francy Lowe SWING FRAME GRINDER OPERATOR [address] [place] [address] PCP - General 11/30/20 documented as of this encounter
--- OUTSIDE RECORDS SUMMARY | 2024-06-25 11:02 | XMS_ITS | Continuity of Care Document ---
Author Organization [facility] Address [address] [place] [address] Care Team Providers Care Residential Program Manager Name Role Phone Mervin Steven ALEXIS Primary Care Physician Encounter [facility] Date(s): 05/26/24 - 05/26/[address] [address] Discharge Disposition: Home or Self Care Attending Physician: Celia Beaver DO Admitting Physician: Celia Beaver DO Referring Physician: Celia Beaver DO Encounter Type: Outpatient Allergies, Adverse Reactions, Alerts Substance Criticality Severity [...] to assess criticality Unknown Active 1skin chambers [id number] 3Headache 4Constipation 5GI upset 6GI upset 7Constipation 8Constipation 9Increased depression 10Increases blood sugar Assessment and Plan Future Appointments Medications Aspi-Cor 81 mg oral delayed release tablet 0 Refill(s) Start Date: 10/29/21 Status: Ordered Repeat number: 1 clonazePAM 1 mg oral tablet 0 Refill(s) Start Date: 12/17/21 Status: Ordered Repeat number: 1 cyclobenzaprine 10 mg oral tablet 10 mg = 1 tab, Oral, TID, PRN as needed for muscle spasm, # 30 tab, 0 Refill(s), Pharmacy: [id number], 165, cm, 12/17/21 12:57:00 EDT, Height/Length Dosing, 98.88, kg, 12/17/21 12:57:00 EDT, Weight Dosing Start Date: 12/17/21 Status: Ordered Quantity: 30.0 Unit: tab Repeat number: 1 Indication: Other intervertebral disc displacement, lumbar region Dexilant 30 mg oral delayed release capsule 0 Refill(s) Start Date: 12/17/21 Status: Ordered Repeat number: 1 estradiol 0.1 mg/g vaginal cream 0 Refill(s) Start Date: 12/17/21 Status: Ordered Repeat number: 1 isosorbide mononitrate 30 mg oral tablet, extended release 30 mg = 1 tab, Oral, every morning, 0 Refill(s) Start Date: 10/22/21 Status: Ordered Repeat number: 1 liothyronine 5 mcg oral tablet 0 Refill(s) Start Date: 12/17/21 Status: Ordered Repeat number: 1 losartan 25 mg oral tablet 0.5 tab, Oral, Daily, # 45 tab, 3 Refill(s), Pharmacy: [id number], 165, cm, 12/17/21 12:57:00 EDT, Height/Length Dosing, 98.88, kg, 12/17/21 12:57:00 EDT, Weight Dosing Start Date: 01/07/22 Status: Ordered Quantity: 45.0 Unit: tab Repeat number: 1 Metoprolol Succinate ER 50 mg oral tablet, extended release 1 tab, Oral, Daily, # 90 tab, 3 Refill(s), Pharmacy: [id number], 165, cm, 12/17/21 12:57:00 EDT, Height/Length Dosing, 98.88, kg, 12/17/21 12:57:00 EDT, Weight Dosing Start Date: 01/07/22 Status: Ordered Quantity: 90.0 Unit: tab Repeat number: 1 nitroglycerin 0.4 mg sublingual tablet 0 Refill(s) Start Date: 12/17/21 Status: Ordered Repeat number: 1 Ozempic (1 mg dose) 4 mg/3 mL subcutaneous solution 0.25 mg =, Subcutaneous, every week, # 3 mL, 0 Refill(s) Start Date: 10/29/21 Stop Date: 11/26/21 Status: Ordered Quantity: 3.0 Unit: mL Repeat number: 1 Repatha Pushtronex 420 mg/3.5 mL subcutaneous solution 0 Refill(s) Start Date: 12/17/21 Status: Ordered Repeat number: 1 Problem List [...] year(s). Sex Female Sex Representation Female (finding) Patient Care team information Care Team Personnel Name: Steven Jordan MD Position: No Access Member Role: Informed Provider Address: [address] Telecom: Care Team Related Persons Name: ROGELIO FARIAS Insurance Providers Guarantor name: MANISHA FARIAS Health Plan Information #: 1 Payer: [employer]ANT[employer] PPO Member Number: [id number] Policy Number: NA Group Number: [id number] Health Plan Information #: 2 Payer: [employer]VANTAGE PPO Member Number: [id number] Policy Number: NA Group Number: NA Health Plan Information #: 3 Payer: [facility] MEDICARE REPLACEMENTADVANTAGE PPO Member Number: NA Policy Number: NA Group Number: NA
--- OUTSIDE RECORDS SUMMARY | 2024-06-25 11:02 | XMS_ITS | Encounter Summary ---
Author Organization [facility] Address [address] [place] [address] Care Team Providers Care Customer Success Intern Name Role Phone Francy Lowe FIELD ARTILLERY OPERATIONS SPECIALIST Primary Care Provider [phone] Encounter Details Date Type Department Care Team (Late st Contact Info) Description 01/25/2022 Lab Requisition [facility] Pathology & Laboratory Medicine - [address] [address] Outr Resulting Lab, Provider Social History Tobacco [...] 97 - 169 ng/dL 01/25/2022 19:57 EDT [facility] Blood VENOUS BLOOD / Unknown 01/24/2022 12:00 EDT 01/25/2022 19:01 EDT us Provider Outr Resulting Lab CHEMISTRY & BLOOD GA S ORDERABLES Final Result [facility] [address] [place] [address] documented in this encounter Visit Diagnoses Not on filedocumented in this encounter Care Teams Customer Success Intern Relationship Specialty Start Date End Date Francy Lowe, VIRY PCP - General 11/30/20 documented as of this encounter
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
--- OUTSIDE RECORDS SUMMARY | 2024-06-25 11:02 | XMS_ITS | Encounter Summary ---
Author Organization [facility] Address [address] [place] [address] Care Team Providers Care Business Banking Manager Name Role Phone David Kenia Arnaldo TELEMARKETING SALES REPRESENTATIVE Primary Care Provider [phone] Francy Lowe TELEMARKETING SALES REPRESENTATIVE Primary Care Provider [phone] Encounter Details Date Type Department Care Team (Late st Contact Info) Description 01/29/2020 Lab Requisition [facility] Pathology & Laboratory Medicine - [address] [address] Outr Resulting Lab, Provider Social History Tobacco [...] Results * T3, TOTAL (01/28/2020 10:00 EDT) [facility] T3, Total 155 97 - 169 ng/dL 01/30/2020 20:29 EDT [facility] Blood VENOUS BLOOD / Unknown 01/28/2020 10:00 EDT 01/30/2020 19:43 EDT us Provider Outr Resulting Lab CHEMISTRY & BLOOD GA S ORDERABLES Final Result [facility] [address] [place] [address] * RHEUMATOID FACTOR (01/28/2020 10:00 EDT) [facility] Rheumatoid Factor <8.6 <12.0 IU/mL 01/30/2020 20:00 EDT [facility] Blood VENOUS BLOOD / Unknown 01/28/2020 10:00 EDT 01/30/2020 19:43 EDT us Provider Outr Resulting Lab CHEMISTRY & BLOOD GA S ORDERABLES Final Result Performing Organization Address City/[facility]/ZIP Co de Phone Number [facility] [address] [place] [address] * CCP ANTIBODIES (01/28/2020 10:00 EDT) [facility] CCP Antibodies <2.5 <5.0 U/mL 01/31/2020 9:16 EDT [facility] Blood VENOUS BLOOD / Unknown 01/28/2020 10:00 EDT 01/30/2020 19:43 EDT us Provider Outr Resulting Lab IMMUNOLOGY AND SEROL OGY ORDERABLES Final Result [facility] [address] [place] [address] * HIGH SENSITIVITY C-REACTIVE PROTEIN (CARDIOVASCULAR DISEASE) (01/28/2020 10:00 EDT) [facility] High Sensitivity CRP 9.57 See Note mg/L 01/30/2020 20:00 EDT [facility] Comment: Reference Range: ??Source: The [place] [employer] Clinical Practice Recommendations, 2003 ??Low Risk: ? <1.0 mg/L ??Average Risk: ?? 1.0 - 3.0 mg/L ??High Risk: ?>3.0 mg/L ??Indeterminate*: >10.0 mg/L ??*May be an indication of another source of inflammation or infection Blood VENOUS BLOOD / Unknown 01/28/2020 10:00 EDT 01/30/2020 19:43 EDT us Provider Outr Resulting Lab CHEMISTRY & BLOOD GA S ORDERABLES Final Result [facility] [address] [place] [address] documented in this encounter Visit Diagnoses Not on filedocumented in this encounter Care Teams Business Banking Manager Relationship Specialty Start Date End Date Kenia Hernandez NP [address] [place] [address] PCP - General 06/04/16 11/29/20 Francy Lowe NP [address] [place] [address] PCP - General 11/30/20 documented as of this encounter
--- OUTSIDE RECORDS SUMMARY | 2024-06-25 11:02 | XMS_ITS | Encounter Summary ---
Author Organization [facility] Address [address] [place] [address] Care Team Providers Care Assurance Manager Name Role Phone Kenia Hernandez MACHINE SPLITTER Primary Care Provider [phone] Encounter Details Date Type Department Care Team (Latest Contact Info) Description 09/08/2017 10:09 EDT - 09/08/2017 23:59 EDT Hospital Encounter [address] [address] Unknown, Provider, MD Discharge Disposition: Home or [...] Code Departure Means Destination Home or Self Retirement documented in this encounter Plan of Treatment Not on file documented as of this encounter Visit Diagnoses Not on filedocumented in this encounter Care Teams Assurance Manager Relationship Specialty Start Date End Date Kenia Hernandez, MACHINE SPLITTER [address] [place] [address] PCP - General 06/04/16 11/29/20 documented as of this encounter
--- OUTSIDE RECORDS SUMMARY | 2024-06-25 11:02 | XMS_ITS | Encounter Summary ---
Author Organization [facility] Address [address] [place] [address] Care Team Providers Care Mental Health Associate Name Role Phone Francy Lowe OFFICE ENGINEER Primary Care Provider [phone] Encounter Details Date Type Department Care Team (Late st Contact Info) Description 01/24/2021 Lab Requisition [facility] Pathology & Laboratory Medicine - [facility] [address] [place], [place] [address] Outr Resulting Lab, Provider Social History Tobacco [...] EDT) Hold Hold 01/24/2021 17:01 EDT [facility] Blood VENOUS BLOOD / Unknown 01/23/2021 11:30 EDT 01/24/2021 15:53 EDT us Provider Outr Resulting Lab LAB INFO SERVICE AND SUPPORT & PHONE RESULT Final Result [facility] [address] [place] [address] * HOLD SST (01/23/2021 11:30 EDT) Hold Hold 01/24/2021 17:01 EDT [facility] Blood VENOUS BLOOD / Unknown 01/23/2021 11:30 EDT 01/24/2021 15:53 EDT us Provider Outr Resulting Lab LAB INFO SERVICE AND SUPPORT & PHONE RESULT Final Result Performing Organization Address City/[facility]/ZIP Co de Phone Number [facility] [address] [place] [address] * T3 FREE (01/23/2021 11:30 EDT) Pathologist [facility] T3, Free 3.7 2.8 - 5.3 pg/mL 01/24/2021 16:39 EDT [facility] Blood VENOUS BLOOD / Unknown 01/23/2021 11:30 EDT 01/24/2021 15:52 EDT us Provider Outr Resulting Lab CHEMISTRY & BLOOD GA S ORDERABLES Final Result Performing Organization Address City/[facility]/ZIP Co de Phone Number [facility] [address] [place] [address] * (ABNORMAL) THYROPEROXIDASE ANTIBODY (01/23/2021 11:30 EDT) [facility] Thyroperoxidase Ab 98(H) <=60 U/mL 2020 18:10 EDT [facility] Blood VENOUS BLOOD / Unknown 01/23/2021 11:30 EDT 01/24/2021 15:52 EDT us Provider Outr Resulting Lab CHEMISTRY & BLOOD GA S ORDERABLES Final Result Performing Organization Address City/[facility]/ZIP Co de Phone Number [facility] [address] [place] [address] * ANTI THYROGLOBULIN (01/23/2021 11:30 EDT) Anti-Thyroglob ulin 34 <=60 U/mL 01/24/2021 18:10 EDT [facility] Blood VENOUS BLOOD / Unknown 01/23/2021 11:30 EDT 01/24/2021 15:52 EDT us Provider Outr Resulting Lab CHEMISTRY & BLOOD GA S ORDERABLES Final Result Performing Organization Address City/[facility] Co de Phone Number [facility] [address] [place] [address] documented in this encounter Visit Diagnoses Not on filedocumented in this encounter Care Teams Mental Health Associate Relationship Specialty Start Date End Date Francy Lowe NP PCP - General 11/30/20 documented as of this encounter
--- OUTSIDE RECORDS SUMMARY | 2024-06-25 11:02 | XMS_ITS | Encounter Summary ---
Author Organization [facility] Address [address] [place] [address] Care Team Providers Care Land Planner Name Role Phone Frnacy Lowe NP Primary Care Provider [phone] Reason for Referral * Radiology Services (Routine) - Closed Specialty Diagnoses / Procedures Referred By Jasson mendoza Referred To Contact Diagnoses Right hip pain Procedures XR HIP RIGHT 2-3 VIEWS, OPTIONAL PELVIS Helena Ramirez NP Phone: tel: fax: Referral ID Status Reason Start Date Expiration Date Visits Re quested Visits Authorized [id number] Closed 11/30/2020 1 1 Reason for Visit * Radiology Services (Routine) - Closed Specialty Diagnoses / Procedures Referred By Jasson mendoza Referred To Contact Diagnoses Right hip pain Procedures XR HIP RIGHT 2-3 VIEWS, OPTIONAL PELVIS Helena Ramirez NP Phone: tel: fax: Referral ID Status Reason Start Date Expiration Date Visits Re quested Visits Authorized [id number] Closed 11/30/2020 1 1 Encounter Details Date Type Department Care Team (Latest Contact Info) Description 11/30/2020 14:15 EDT - 11/30/2020 23:59 [address] Encounter [address] [place], [place] [id number] Right hip pain Discharge Disposition: Home or [...] thigh documented in this encounter Care Teams Land Planner Relationship Specialty Start Date End Date Francy Lowe NP PCP - General 11/30/20 documented as of this encounter
--- OUTSIDE RECORDS SUMMARY | 2024-06-25 11:02 | XMS_ITS | Encounter Summary ---
Author Organization [facility] Address [address] [place] [address] Care Team Providers Care Basketball Scout Name Role Phone Francy Lowe INCINERATOR PLANT SUPERVISOR Primary Care Provider [phone] Encounter Details Date Type Department Care Team (Late st Contact Info) Description 11/26/2023 Lab Requisition [facility] Pathology & Laboratory Medicine - [address] [address] Outr Resulting Lab, Provider Social History Tobacco [...] 4th Generation Negative Negative 11/26/2023 19:55 EDT [facility] Comment:If acute HIV-1 infec tion is suspected in a high risk patient, submit plasma specimen for HIV-1 RNA quantitation test. Blood VENOUS BLOOD / Unknown 11/25/2023 11:30 EDT 11/26/2023 18:10 EDT Narrative [facility] - 11/26/2023 19:55 EDT Fourth Generation assay performed on the Siemens TonZofaur XPT. us Provider Outr Resulting Lab IMMUNOLOGY AND SEROL OGY ORDERABLES Final Result [facility] [address] [place], [place] [id number] documented in this encounter Visit Diagnoses Not on filedocumented in this encounter Care Teams Basketball Scout Relationship Specialty Start Date End Date Francy Lowe NP PCP - General 11/30/20 documented as of this encounter
--- OUTSIDE RECORDS SUMMARY | 2024-06-25 11:02 | XMS_ITS | Clinical Summary ---
Author Organization [facility] Address [address] [place] [address] Care Team Providers Care Clinical Care Coordinator Name Role Phone Adeana luisa Francy Pauline COLLECTIONS CLERK Primary Care Provider [phone] Allergies Active Allergy Reactions Criticality Noted Date [...] Active Active Problems No known active problems Encounters Date Type Department Care Team Description 05/22/2024 Lab Requisition [facility] Pathology & Laboratory Medicine [address] [address] Outr Resulting Lab, Provider from Last 3 Months Social History Tobacco Use Types Packs/Day Years [...] Results * T3, TOTAL (05/21/2024 15:00 EST) Pathologist [facility] T3, Total 148 97 - 169 ng/dL 05/22/2024 22:43 EST [facility] Blood VENOUS BLOOD / Unknown 05/21/2024 15:00 EST 05/22/2024 21:58 EST us Provider Outr Resulting Lab CHEMISTRY & BLOOD GA S ORDERABLES Final Result [facility] [address] [place] [address] * HEPATITIS C AB W REFLEX TO HCV RNA BY PCR (09/12/2020 12:07 EDT) [facility] Hep C Antibody Negative Negative 09/13/2020 10:17 EDT [facility] Blood VENOUS BLOOD / Unknown 09/12/2020 12:07 EDT 09/12/2020 20:24 EDT us Provider Outr Resulting Lab CHEMISTRY & BLOOD GA S ORDERABLES Final Result [facility] [address] [place] [address] from Last 3 Months or Most Recently Relevant to Health Maintenance Insurance [employer] MEDICARE Care Teams Clinical Care Coordinator Relationship Specialty Start Date End Date Francy Lowe NP PCP - General 11/30/20
--- OUTSIDE RECORDS SUMMARY | 2024-06-25 11:02 | XMS_ITS | Encounter Summary ---
Author Organization [facility] Address [address] [place] [address] Care Team Providers Care Delicate Fabrics Presser Name Role Phone Francy Lowe NURSES AIDE Primary Care Provider [phone] Reason for Visit * Reason Onset Date Comments Other 03/05/2021 Encounter Details Date Type Department Care Team (Late st Contact Info) Description 03/05/2021 Telephone [facility] Spine Program - [address] [address] Fariba Darling PA-C [address] [facility] [place] [address] Other Social History Tobacco Use [...] Encounter - Froy Anguiano MA - 03/05/2021 1794 EDT Patient called to inform us that she would not be following up with Fariba Darling PA-C and would be seeing her doctor in [place]. She said she would not be doing [...] on filedocumented in this encounter Care Teams Delicate Fabrics Presser Relationship Specialty Start Date End Date Francy Lowe, VIRY PCP - General 11/30/20 documented as of this encounter
--- OUTSIDE RECORDS SUMMARY | 2024-06-25 11:02 | XMS_ITS | Encounter Summary ---
Author Organization [facility] Address [address] [place] [address] Care Team Providers Care Contract Clerk Name Role Phone Francy Lowe NP Primary Care Provider [phone] Reason for Referral * Consult (Routine) - Specialty Report Received Specialty Diagnoses / Procedures Referred By Jasson mendoza Referred To Contact Orthopedic Surgery Diagnoses Chronic right-sided low back pain, unspecified whether sciatica present Helena Ramirez NP Phone: tel: fax: [facility] Spine [place] [address] Phone: tel: fax: Referral ID Status Reason Start Date Expiration Date Visits Requested Visits Authorized [id number] Specialty Report Received Specialty Services Required 11/30/2020 1 1 Question Answer Reason for Request: right low back acute on chronic pain Reason for Visit * Reason Comments Pain * Referral (Routine) - Receiving Office to Obtain Authorization Specialty Diagnoses / Procedures Referred By Jasson mendoza Referred To Contact Orthopedic Surgery Diagnoses Pain in right hip Francy Lowe NP Phone: tel: fax: [facility] Joint [facility] [place] [address] Phone: tel: fax: Referral ID Status Reason Start Date Expiration Date Visits Requested Visits Authorized [id number] Receiving Office to Obtain Authorization 1 1 Encounter Details Date Type Department Care Team (Late st Contact Info) Description 11/30/2020 14:30 EDT Office Visit [facility] Total Joint Program - [facility] [address] [facility] [place] [address] Helena Ramirez, VIRY [address] [place] [address] Chronic right-sided low back pain, [...] this encounter Progress Notes * Helena Ramirez, [employer] SUPERVISOR - 11/30/2020 1430 EDT New Hip pain [...] She is also s/p right TKA (2009, [place]), which is doing well. She has [...] Gatherings with Friends and Family: ??? Attends Evangelical Services: ??? Active Member of Clubs or [...] clinic for further evaluation/management Disposition: follow-up in [facility] as needed Dr. Lan was the attending physician available in the clinic today if needed. A consultation was not required. All or part of this document has been prepared with speech recognition software and/or keyboard data collection technician techniques. Minor irregularities may be present. documented [...] Primary documented in this encounter Care Teams Contract Clerk Relationship Specialty Start Date End Date Francy Lowe NP PCP - General 11/30/20 documented as of this encounter
--- OUTSIDE RECORDS SUMMARY | 2024-06-25 11:02 | XMS_ITS | Encounter Summary ---
Author Organization [facility] Address [address] [place] [address] Care Team Providers Care Wood Cabinet Finisher Name Role Phone Kenia Hernandez ADVERTISING SALES ASSISTANT Primary Care Provider [phone] Encounter Details Date Type Department Care Team (Late st Contact Info) Description 09/09/2017 Results Only [facility] [phone] Tom Huber MD [address] [place] [id number] Social History Tobacco Use Types Packs/Day [...] ? DANIELLE FARIAS ? Accession #: ? [id number] ? : ? 1960 (Age: 57) ??F [...] (ASCP) 09/09/2017 7:35 AM End of Report [facility] 09/09/2017 0:02 EDT 09/09/2017 0:02 EDT us Tom Huber MD PATHOLOGY ORDERABLES Final Re sult [facility] [address] [place] [address] documented in this encounter Visit Diagnoses Not on filedocumented in this encounter Care Teams Wood Cabinet Finisher Relationship Specialty Start Date End Date Kenia Hernandez, ADVERTISING SALES ASSISTANT [address] [place] [address] PCP - General 06/04/16 11/29/20 documented as of this encounter
--- OUTSIDE RECORDS SUMMARY | 2024-06-25 11:02 | XMS_ITS | Encounter Summary ---
Author Organization [facility] Address [address] [place] [address] Care Team Providers Care Office Machine Servicer Name Role Phone Francy Lowe CURRICULUM DEVELOPMENT MANAGER Primary Care Provider [phone] Encounter Details Date Type Department Care Team (Late st Contact Info) Description 01/30/2023 Lab Requisition [facility] Pathology & Laboratory Medicine - [address] [id number] Outr Resulting Lab, Provider Social History Tobacco [...] 97 - 169 ng/dL 01/30/2023 19:11 EDT [facility] Blood VENOUS BLOOD / Unknown 01/29/2023 9:35 EDT 01/30/2023 18:02 EDT us Provider Outr Resulting Lab CHEMISTRY & BLOOD GA S ORDERABLES Final Result [facility] [address] [place] [address] documented in this encounter Visit Diagnoses Not on filedocumented in this encounter Care Teams Office Machine Servicer Relationship Specialty Start Date End Date Francy Lowe, VIRY PCP - General 11/30/20 documented as of this encounter
--- OUTSIDE RECORDS SUMMARY | 2024-06-25 11:02 | XMS_ITS | Encounter Summary ---
Author Organization [facility] Address [address] [place] [address] Care Team Providers Care Nutritional Services Director Name Role Phone Francy Lowe BAND SCROLL SAW OPERATOR Primary Care Provider [phone] Encounter Details Date Type Department Care Team (Late st Contact Info) Description 03/07/2021 Lab Requisition [facility] Pathology & Laboratory Medicine - [address] [address] Outr Resulting Lab, Provider Social History Tobacco [...] 97 - 169 ng/dL 03/07/2021 21:44 EDT [facility] Blood VENOUS BLOOD / Unknown 03/07/2021 14:31 EDT 03/07/2021 20:59 EDT us Provider Outr Resulting Lab CHEMISTRY & BLOOD GA S ORDERABLES Final Result [facility] [address] [place] [address] documented in this encounter Visit Diagnoses Not on filedocumented in this encounter Care Teams Nutritional Services Director Relationship Specialty Start Date End Date Francy Lowe NP PCP - General 11/30/20 documented as of this encounter
--- OUTSIDE RECORDS SUMMARY | 2024-06-25 11:02 | XMS_ITS | Encounter Summary ---
Author Organization [facility] Address [address] [place] [address] Care Team Providers Care University Partnership Rep Name Role Phone Francy Lowe BLOCK MECHANIC Primary Care Provider [phone] Encounter Details Date Type Department Care Team (Late st Contact Info) Description 05/22/2024 Lab Requisition [facility] Pathology & Laboratory Medicine - [address] [id number] Outr Resulting Lab, Provider Social History Tobacco [...] Comments T3, TOTAL Routine 05/21/2024 15:00 EST documented in this encounter Results * T3, TOTAL (05/21/2024 15:00 EST) T3, Total 148 97 - 169 ng/dL 05/22/2024 22:43 EST [facility] Blood VENOUS BLOOD / Unknown 05/21/2024 15:00 EST 05/22/2024 21:58 EST us Provider Outr Resulting Lab CHEMISTRY & BLOOD GA S ORDERABLES Final Result [facility] [address] [place] [address] documented in this encounter Visit Diagnoses Not on filedocumented in this encounter Care Teams University Partnership Rep Relationship Specialty Start Date End Date Francy Lowe, VIRY PCP - General 11/30/20 documented as of this encounter
--- OUTSIDE RECORDS SUMMARY | 2024-06-25 11:02 | XMS_ITS | Encounter Summary ---
Author Organization [facility] Address [address] [place] [address] Care Team Providers Care Resource Recovery Engineer Name Role Phone VicentevashtiKenia ENVIRONMENTAL SCIENCE PROGRAM DIRECTOR Primary Care Provider [phone] Francy Lowe ENVIRONMENTAL SCIENCE PROGRAM DIRECTOR Primary Care Provider [phone] Reason for Referral * Radiology Services (Routine) - Closed Specialty Diagnoses / Procedures Referred By Jasson mendoza Referred To Contact Diagnoses Right hip pain Procedures XR HIP RIGHT 2-3 VIEWS, OPTIONAL PELVIS Helena Ramirez NP Phone: tel: fax: Referral ID Status Reason Start Date Expiration Date Visits Re quested Visits Authorized [id number] Closed 11/30/2020 1 1 Reason for Visit * Reason Onset Date Comments Pain 11/27/2020 Encounter Details Date Type Department Care Team (Late st Contact Info) Description 11/27/2020 Orders Only [facility] Total Joint Program - [place] [address] [place] [address] Helena Ramirez NP [address] [place] [address] Right hip pain (Primary Dx) [...] thigh documented in this encounter Care Teams Resource Recovery Engineer Relationship Specialty Start Date End Date Kenia Hernandez NP [address] [place] [address] PCP - General 06/04/16 11/29/20 Francy Lowe NP [address] [place] [address] PCP - General 11/30/20 documented as of this encounter
--- OUTSIDE RECORDS SUMMARY | 2024-06-25 11:02 | XMS_ITS | Encounter Summary ---
Author Organization [facility] Address [address] [place] [address] Care Team Providers Care Video Coordinator Name Role Phone Francy Lowe LINING LAYER Primary Care Provider [phone] Encounter Details Date Type Department Care Team (Late st Contact Info) Description 05/09/2021 Lab Requisition [facility] Pathology & Laboratory Medicine - [address] [address] Outr Resulting Lab, Provider Social History Tobacco [...] MICROBIOLOGY - GENER AL ORDERABLES Final Result [facility] [address] [place] [address] * COVID-19 TESTING (05/08/2021 15:30 EST) COVID-19 rt-PCR Result Negative Negative 05/10/2021 10:28 EST [facility] Comment: This test has not [...] performed using the latanya SARS-CoV-2 assay ([employer] on the Latanya 6800 System Performing Lab Latanya [address] [facility] Lab 05/10/2021 10:28 EST [facility] Swab 05/08/2021 15:3 0 EST 05/09/2021 17:07 EST us Provider Outr Resulting Lab MICROBIOLOGY - GENER AL ORDERABLES Final Result [facility] [address] [place] [address] documented in this encounter Visit Diagnoses Not on filedocumented in this encounter Care Teams Video Coordinator Relationship Specialty Start Date End Date Francy Lowe NP PCP - General 11/30/20 documented as of this encounter
--- OUTSIDE RECORDS SUMMARY | 2024-06-25 11:02 | XMS_ITS | Encounter Summary ---
Author Organization [facility] Address [address] [place] [address] Care Team Providers Care Commercial Floor Covering Installer Name Role Phone Kenia Hernandez Arnaldo EDGER FEEDER Primary Care Provider [phone] Francy Lowe EDGER FEEDER Primary Care Provider [phone] Encounter Details Date Type Department Care Team (Late st Contact Info) Description 10/14/2019 Lab Requisition [facility] Pathology & Laboratory Medicine - [address] [address] Outr Resulting Lab, Provider Social History Tobacco [...] 10:00 EDT) Hold Hold 10/14/2019 17:17 EDT [facility] Blood VENOUS BLOOD / Unknown 10/13/2019 10:00 EDT 10/14/2019 16:02 EDT us Provider Outr Resulting Lab LAB INFO SERVICE AND SUPPORT & PHONE RESULT Final Result Performing Organization Address City/[facility]/ZIP Co de Phone Number [facility] [address] [place] [address] * T3 FREE (10/13/2019 10:00 EDT) T3, Free 4.4 2.8 - 5.3 pg/mL 10/14/2019 16:39 EDT [facility] Blood VENOUS BLOOD / Unknown 10/13/2019 10:00 EDT 10/14/2019 16:01 EDT us Provider Outr Resulting Lab CHEMISTRY & BLOOD GA S ORDERABLES Final Result Performing Organization Address [facility] Co de Phone Number [facility] [address] [place] [address] * (ABNORMAL) THYROID ANTIBODIES (10/13/2019 10:00 EDT) Anti-Thyroglobulin 61(H) <=60 U/mL 2019 10:54 EDT [facility] Thyroperoxidase Ab 324(H) <=60 U/mL 2019 10:54 EDT [facility] Blood VENOUS BLOOD / Unknown 10/13/2019 10:00 EDT 10/14/2019 16:01 EDT us Provider Outr Resulting Lab CHEMISTRY & BLOOD GA S ORDERABLES Final Result Performing Organization Address [facility]/ZIP Co de Phone Number [facility] [address] [place] [address] documented in this encounter Visit Diagnoses Not on filedocumented in this encounter Care Teams Commercial Floor Covering Installer Relationship Specialty Start Date End Date Kenia Hernandez NP [address] [place] [address] PCP - General 06/04/16 11/29/20 Francy Lowe EDGER FEEDER [address] [place] [address] PCP - General 11/30/20 documented as of this encounter
--- OUTSIDE RECORDS SUMMARY | 2024-06-25 11:02 | XMS_ITS | Encounter Summary ---
Author Organization [facility] Address [address] [place] [address] Care Team Providers Care Drawer In Jacquard Loom Name Role Phone Vicentevashti Kenia Vashti LIFE SKILLS SPECIALIST Primary Care Provider [phone] Francy Lowe LIFE SKILLS SPECIALIST Primary Care Provider [phone] Encounter Details Date Type Department Care Team (Late st Contact Info) Description 06/04/2019 Lab Requisition [facility] Pathology & Laboratory Medicine - [address] [address] Unknown, Provider, Social History Tobacco Use Types [...] 2.8 - 5.3 pg/mL 06/04/2019 17:10 EST [facility] Blood VENOUS BLOOD / Unknown 06/03/2019 8:30 EST 06/04/2019 16:44 EST us Provider Unknown CHEMISTRY & BLOOD GAS ORDERA BLES Final Result [facility] [address] [place] [address] * (ABNORMAL) THYROID ANTIBODIES (06/03/2019 8:30 EST) Anti-Thyroglobulin 63(H) <=60 U/mL 2019 10:54 EST [facility] Thyroperoxidase Ab 182(H) <=60 U/mL 2019 10:54 EST [facility] Blood VENOUS BLOOD / Unknown 06/03/2019 8:30 EST 06/04/2019 16:44 EST us Provider Unknown CHEMISTRY & BLOOD GAS ORDERA BLES Final Result Performing Organization Address [facility] Co de Phone Number [facility] [address] [place] [address] documented in this encounter Visit Diagnoses Not on filedocumented in this encounter Care Teams Drawer In Jacquard Loom Relationship Specialty Start Date End Date Kenia Hernandez NP [address] [place] [address] PCP - General 06/04/16 11/29/20 Francy Lowe NP [address] [place] [address] PCP - General 11/30/20 documented as of this encounter
--- OUTSIDE RECORDS SUMMARY | 2024-06-25 11:03 | XMS_ITS | Encounter Summary ---
Author Organization [facility] Address [facility] [place] [address] Care Team Providers Care Restaurant Front Manager Name Role Phone Kaylee Jaquez Primary Care Provider Reason for Visit * Reason Onset Date Comments Medication Refill 08/04/2023 Encounter Details Date Type Department Care Team (Late st Contact Info) Description 08/04/2023 Refill Cardiology at [address] [address] Lc Garcia MD [facility] [place] [address] Medication Refill Social History Tobacco Use Types [...] as of this encounter Plan of Treatment Upcoming Encounters Date Type Department Care Team (Late st Contact Info) Description 07/20/2024 1:15 PM EDT Office Visit [facility] [place] [address] Mary Hart MD [address] [place] [address] Irena Pierre PA [address] [place] [address] documented as of this encounter Visit Diagnoses Diagnosis NSTEMI (non-ST elevated myocardial infarction) Acute myocardial infarction, subendocardial infarction, episode of care unspecified documented in this encounter Care Teams Restaurant Front Manager Relationship Specialty Start Date End Date Kaylee Jaquez PA [address] [place] [address] PCP - General Family Medicine 01/18/22 documented as of this encounter
--- OUTSIDE RECORDS SUMMARY | 2024-06-25 11:03 | XMS_ITS | Encounter Summary ---
[place] [address] Care Team Providers Care Restuarant Crew Worker Name Role Phone Kaylee Jaquez Primary Care Provider [phone] Reason for Visit * Auth/Cert (Routine) Specialty Diagnoses / Procedures Referred By Jasson mendoza Referred To Contact Diagnoses Gastroparesis villegas's surveillance Procedures PRO UPPER GI ENDOSCOPY, DIAGNOSTIC PRO UPPER GI ENDOSCOPY, BIOPSY PRO UP GI ENDOSCOPY, REMV TUMOR, SNARE PRO ANES, UGI ENDOSCOPY NOS EGD, UPPER GI ENDOSCOPY (WRVU 2.09) Nimesh Alicia MD [facility] [place] [address] [facility] Referral ID Status Reason Start Date Expiration Date Visits Re quested Visits Authorized [id number] 1 1 Encounter Details Date Type Department Care Team (Late st Contact Info) Description 10/03/2023 10:47 AM EDT Anesthesia Event [place] [address] Lilibeth Freed MD [facility] DR ANESTHESIOLOGY [place] [address] Jason Hopson MD Anesthesia Record Procedure Summary [...] Type Details Placement Removal PIV 10/03/23; 1027; vtie-ren-ayrqly catheter system; 20 gauge; median cubital vein [...] Procedure Summary Date: 10/03/23 Room / Location: [facility] 3 / [facility] Anesthesia Start: 1047 Anesthesia Stop: 1111 Procedure: EGD WITH BIOPSY (WRVU 2.39) (Trunk) Diagnosis: Gastroparesis (villegas's surveillance) Surgeons: Nimesh Alicia MD Responsible Provider: Lilibeth Freed MD Anesthesia Type: MAC ASA Status: 3 All Anesthesia Providers: Anesthesiologist: Lilibeth Freed MD DISPUTE RESOLUTION ANALYST: Ryan Gates CRNA Shrimp Peeling Machine Tender: Jason Hopson MD Vitals Value Taken Time BP 117/68 10/03/23 1150 Temp Pulse Resp 16 10/03/23 1150 SpO2 99 % 10/03/23 1155 Pain Level 0 10/03/23 1150 Vitals shown include unfiled device data. Patient Location: PACU/[facility] Level of Consciousness: Awake and Alert Pain [...] 4.67) performed by Nimesh Alicia MD at [facility] ENDOSCOPY ??? PRO INJECTION DX/THER SBST INTRLMNR LMBR/SAC W/IMG GDN Midline 01/23/2023 INJECTION, EPIDURAL, LUMBAR OR SACRAL (CAUDAL), WITH IMAGING GUIDANCE (WRVU 1.8) performed by Alvarez Monteiro MD at [facility] PAIN MGMT MSO ??? PRO INJECTION DX/THER SBST INTRLMNR LMBR/SAC W/IMG GDN Midline 01/23/2023 Lumbar or Sacral Epidural Steroid Inj Sacral (Caudal) ([address]) performed by Alvarez Monteiro MD at [facility] MGMT MSO ??? PRO UPPER GI ENDOSCOPY, BIOPSY N/A 11/19/2018 EGD WITH BIOPSY (WRVU 2.49) performed by Nimesh Alicia MD at [facility] ??? RECTOCELE REPAIR 2014 Dr. Boo @ [facility] ??? SHOULDER SURGERY Left 06/05/2017 [...] needing to stop. Plan: JUN Hopson MD Shrimp Peeling Machine Tender Region - Other Informed Consent: Anesthetic plan and risks discussed with patient. Anesthesia Screening documented in this encounter Plan of Treatment Upcoming Encounters Date Type Department Care Team (Late st Contact Info) Description 07/20/2024 1:15 PM EDT Office Visit Neurosurgery at [facility] [address] [place] [address] Mary Hart MD [address] [facility] [place] [address] Irena Pierre PA [facility] [place] [address] documented as of this encounter Visit Diagnoses [...] mg documented in this encounter Care Teams Restuarant Crew Worker Relationship Specialty Start Date End Date Kaylee Jaquez PA [address] [address] PCP - General Family Medicine 01/18/22 documented as of this encounter
--- OUTSIDE RECORDS SUMMARY | 2024-06-25 11:03 | XMS_ITS | Encounter Summary ---
Author Organization [facility] [address] Care Team Providers Care Commissioner Conservation Of Resources Name Role Phone Kaylee Jaquez Primary Care Provider [phone] Reason for Visit * Reason Onset Date Comments Medication Refill 07/30/2023 Encounter Details Date Type Department Care Team (Late st Contact Info) Description 07/30/2023 Refill [place] [address] Chiquis Chen MD [facility] [place] [place] [address] Social History Tobacco Use Types Packs/Day Years [...] 1:15 PM EDT Office Visit Neurosurgery at [facility] [address] [facility] [place] [address] Mary [place] [address] Irena [place] [address] documented as of this encounter Visit Diagnoses Not on filedocumented in this encounter Care Teams Commissioner Conservation Of Resources Relationship Specialty Start Date End Date Kaylee Jaquez PA [address] [place] [address] PCP - General Family Medicine 01/18/22 documented as of this encounter
--- OUTSIDE RECORDS SUMMARY | 2024-06-25 11:03 | XMS_ITS | Encounter Summary ---
Author Organization [facility] [place] [address] Care Team Providers Care Rheostat Assembler Name Role Phone Kaylee Jaquez Primary Care Provider [phone] Reason for Referral * Consultation (Urgent) - Authorized Specialty Diagnoses / Procedures Referred By Contac t Referred To Contact Neurosurgery Diagnoses Low back pain, unspecified back pain laterality, unspecified chronicity, unspecified whether sciatica present Celia López DO [address] [address] Mary Hart MD [address] [place] [address] Referral ID Status Reason Start Date Expiration Date Visits Requested Visits Authorized [id number] Authorized Consult, Test & Treat 04/30/2024 04/30/2025 99 99 Encounter Details Date Type Department Care Team (Late st Contact Info) Description 04/30/2024 Transcribe Orders eDH Incoming Referrals [phone] Celia López DO [address] [address] Low back pain, unspecified back pain laterality, [...] 1:15 PM EDT Office Visit Neurosurgery at [facility] [address] [place] [address] Mary Hart MD 10 [facility] [place] [address] Irena Pierre PA [address] [facility] [place] [address] Scheduled Referrals Name Type Priority Associated Diagnoses Orde r Schedule Referral to Neurosurgery Outpatient Referral Routine Low back pain, unspecified back pain laterality, unspecified chronicity, unspecified whether sciatica present Ordered: 04/30/2024 documented as of this encounter Visit Diagnoses Diagnosis Low back pain, unspecified back pain laterality, unspecified chronicity, unspecified whether sciatica present documented in this encounter Care Teams Rheostat Assembler Relationship Specialty Start Date End Date Kaylee Jaquez PA [address] [place] [address] PCP - General Family Medicine 01/18/22 documented as of this encounter
--- OUTSIDE RECORDS SUMMARY | 2024-06-25 11:03 | XMS_ITS | Encounter Summary ---
Author Organization [place] [address] Care Team Providers Care Lace Winder Name Role Phone Kaylee Jaquez Primary Care Provider [phone] Reason for Visit * Reason Comments Medication Refill Encounter Details Date Type Department Care Team (Late st Contact Info) Description 08/25/2023 Refill Cardiology at [address] [address] Lc Garcia MD [facility] [place] [address] Medication Refill Social History Tobacco Use Types [...] this medication - Imdur per day. See [facility] message chain from 07/28/23. documented in this encounter Plan of Treatment Upcoming Encounters Date Type Department Care Team (Late st Contact Info) Description 07/20/2024 1:15 PM EDT Office Visit Neurosurgery at [address] [place] [address] Mary Hart MD [address] [place] [address] Irena Pierre PA [address] [place] [address] documented as of this encounter Visit Diagnoses Diagnosis NSTEMI (non-ST elevated myocardial infarction) Acute myocardial infarction, subendocardial infarction, episode of care unspecified documented in this encounter Care Teams Lace Winder Relationship Specialty Start Date End Date Kaylee Jaquez PA [address] [address] PCP - General Family Medicine 01/18/22 documented as of this encounter
--- OUTSIDE RECORDS SUMMARY | 2024-06-25 11:03 | XMS_ITS | Encounter Summary ---
[facility] [place] [address] Care Team Providers Care Drill Press Set Up Operator Radial Name Role Phone Kaylee Jaquez Primary Care Provider [phone] Reason for Visit * Auth/Cert (Routine) Specialty Diagnoses / Procedures Referred By Jasson mendoza Referred To Contact Diagnoses Gastroparesis villegas's surveillance Procedures PRO UPPER GI ENDOSCOPY, DIAGNOSTIC PRO UPPER GI ENDOSCOPY, BIOPSY PRO UP GI ENDOSCOPY, REMV TUMOR, SNARE PRO ANES, UGI ENDOSCOPY NOS EGD, UPPER GI ENDOSCOPY (WRVU 2.09) Nimesh Alicia MD [facility] [place] [address] [facility] Referral ID Status Reason Start Date Expiration Date Visits Re quested Visits Authorized [id number] 1 1 Encounter Details Date Type Department Care Team (Late st Contact Info) Description 10/03/2023 10:30 AM EDT - 10/03/2023 11:00 AM EDT Surgery [place] [address] Nimesh Alicia MD [facility] [place] [address] EGD WITH BIOPSY (WRVU 2.39) Social History [...] the day after the procedure, use an fpkf-rag-pzryypb spray to numb your throat. Sucking on [...] occurs, please contact your Doctor. Please call [phone] before 8pm Mon-Fri with problems, questions or concerns. If you call after 8pm or on weekends, call the Hospital at [phone] and ask to speak to the Clinical Editor gas distribution supervisor and the commutator operator will contact that person for you. When should you call for help? Call [phone] anytime you think you may need emergency [...] any problems. Where can you learn more? [facility] View your After Visit Summary and more online at [email or web address] If you would like to provide feedback about your hospital experience, please call the Office of Patient and Family Relations at . If you have received this After Visit Summary in error, please immediately return it in person to the department, or notify the [facility] Privacy Office by calling toll free at between the hours of 8AM and 5PM to arrange for our retrieval of the documents at no cost to you. Content Version: 12.2 ?? 5497-1593 [employer]. Care instructions adapted under license by [facility]. If you have questions about a medical condition or this instruction, always ask your healthcare professional. [employer] disclaims any warranty or liability for your [...] the day after the procedure, use an ntsz-gzt-ruorlil spray to numb your throat. Sucking on [...] occurs, please contact your Doctor. Please call [phone] before 8pm Mon-Fri with problems, questions or concerns. If you call after 8pm or on weekends, call the Hospital at [phone] and ask to speak to the Clinical Editor gas distribution supervisor and the commutator operator will contact that person for you. When should you call for help? Call [phone] anytime you think you may need emergency [...] any problems. Where can you learn more? [facility] View your After Visit Summary and more online at [email or web address] If you would like to provide feedback about your hospital experience, please call the Office of Patient and Family Relations at . If you have received this After Visit Summary in error, please immediately return it in person to the department, or notify the [facility] Privacy Office by calling toll free at between the hours of 8AM and 5PM to arrange for our retrieval of the documents at no cost to you. Content Version: 12.2 ?? 8356-3697 [employer]. Care instructions adapted under license by [facility]. If you have questions about a medical condition or this instruction, always ask your healthcare professional. [employer] disclaims any warranty or liability for your [...] by mouth daily. 90 tablet 3 08/04/2023 celecoxib (CeleBREX) 100 mg capsule Take 100 [...] x 1 day 30 tablet 07/21/2023 11/03/2023 dexlansoprazole (Dexilant) [address] capsule Take 1 capsule by mouth daily. 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 [address] [place] [address] Mary Hart MD 10 [facility] [place] [address] Irena Pierre PA [address] [place] [address] documented as of this encounter Procedures Procedure Name Priority Date/Time Associated Diagnosis Comments SPECIMEN TO PATHOLOGY Routine 10/03/2023 11:02 AM EDT SURGICAL PATHOLOGY REPORT Routine 10/03/2023 10:58 AM EDT UPPER GI ENDOSCOPY Routine 10/03/2023 10 :50 AM EDT Upper Gi Endoscopy, Biopsy (25064) 10/03/2023 10:48 AM EDT Gastroparesis POCT GLUCOSE Routine 10/03/2023 10:27 AM EDT documented in this encounter Results * Specimen to Pathology (10/03/2023 11:02 AM EDT) AP Specimen 10/03/2023 11:0 2 AM EDT 10/03/2023 11:03 AM EDT [facility] - 10/03/2023 11:03 AM EDT Specimen requisition ordered. ??Separate Pathology report to follow Nimesh Alicia MD PATHOLOGY/CYTOLOGY O RDERABLES Performing Organization Address City/State/[facility] Co de Phone Number [facility] [place] [address] * Surgical Pathology Report (10/03/2023 10:58 AM EDT) Final Diagnosis [id number] ? Location: 4T; EA10; A The signing pathologist has (i) examined the relevant preparation(s) for the specimen(s) and (ii) rendered or confirmed the diagnosis(es). . ?Surgical Pathology DIAGNOSIS A - GE junction,biopsy (Multiple): - ??Squamous esophageal and cardiac mucosa within normal limits. - ??No goblet cell metaplasia is seen. Electronically signed by: ?Desirae ABDUL, Cleopatra Andersen Verified: ??10/14/2023 15:24 ??Pathologist Performed at: ??-[facility] Dept. of Pathology, [place] [address] Fire Extinguisher Charger: Cleopatra Merrill MD, FCAP, ??CLIA Certificate: [id number] SPECIMEN(S) SUBMITTED A - GE junction bx's. r/o ?? Villegas's, biopsy (Multiple) CLINICAL INFORMATION 63-year-old with? ??Villegas's SPECIMEN PROCESSING A - Labeled/Fixativ e: GE junction BX, rule out Villegas's, formalin. Quantity/Size: Four, averaging 0.4 cm. Tissue Description: Soft, pink-red tissues. Sections/Proces sing: Submitted in toto ??in 1 cassette labeled A1. ??sns 10/14/2023 3:24 PM EDT [facility] GI Biopsy 10/03/2023 10:5 8 AM EDT 10/03/2023 10:58 AM EDT Nimesh Alicia MD PATHOLOGY/CYTOLOGY O [facility] [place] [address] * UPPER GI ENDOSCOPY (10/03/2023 10:50 AM EDT) Pathologist [facility] UPPER GI ENDOSCOPY [facility] Endoscopy ___ Procedure Date: 10/03/2023 10:50 AM ? Patient Name: Danielle Mills ? Date of : 1960 ? Age: 63 ? Order #: [id number] ? Instrument Name: [id number] ? ___ Procedure: ? Upper GI endoscopy Indications: ? Gastro-esophageal reflux disease, ? Follow-up of Villegas's esophagus Providers: ? Nimesh Alicia, Carlos Swann ? SHAR Stubbs, Carlos Jj MD: ?Kaylee Jaquez Medicines: ? [...] Procedure Code(s): ? --- Professional --- ? 68776, Esophagogastroduode noscopy, ? flexible, transoral; with biopsy, ? single or multiple Diagnosis Code(s): ? --- Professional --- ? K21.9, Gastro-esophageal reflux ? disease without esophagitis ? K22.70, Villegas's esophagus without ? dysplasia ? --- Technical --- ? K21.9, Gastro-esophageal reflux ? disease without esophagitis ? K22.70, Villegas's esophagus without ? dysplasia CPT copyright 202 [employer]. All rights reserved. The codes documented in this report are preliminary and upon supervisor water softener service review may be revised to meet current compliance requirements. Attending Participation: ? I personally performed the entire procedure. ? Nimesh Alicia, 10/03/2023 11:02:52 AM Number of Addenda: 0 Note Initiated On: 10/03/2023 10:50 AM PROVATION 10/03/2023 10:5 0 AM EDT Unknown GENERAL SURGICAL ORD ERABLES PROVATION * POCT Glucose (10/03/2023 10:27 AM EDT) Glucose, POC 114 65 - 199 mg/dL [facility] Comment: Supplemental ranges: <140 mg/dL before meals <180 mg/dL all other times of the day Blood 10/03/2023 10:2 7 AM EDT 10/03/2023 10:27 AM EDT iNmesh Alicia MD POINT OF CARE TEST O RDERABLES [facility] [place] [address] documented in this encounter Visit Diagnoses Diagnosis [...] CRNA) documented in this encounter Care Teams Drill Press Set Up Operator Radial Relationship Specialty Start Date End Date Kaylee Jaquez PA [address] [place] [address] PCP - General Family Medicine 01/18/22 documented as of this encounter
--- OUTSIDE RECORDS SUMMARY | 2024-06-25 11:03 | XMS_ITS | Encounter Summary ---
[place] [address] Care Team Providers Care Mac Developer Name Role Phone Kaylee Jaquez Primary Care Provider [phone] Reason for Referral * Diagnostic Test (Routine) - Closed Specialty Diagnoses / Procedures Referred By Contac t Referred To Contact Cardiology Diagnoses Palpitations Procedures Ziopatch 48 Hrs-15 Days Lc Garcia MD [facility] [place] [address] [facility] [place] [address] Referral ID Status Reason Start Date Expiration Date V isits Requested Visits Authorized [id number] Closed Specialty Service Requested 01/16/2024 01/15/2025 1 1 Reason for Visit * Diagnostic Test (Routine) - Closed Specialty Diagnoses / Procedures Referred By Contac t Referred To Contact Cardiology Diagnoses Palpitations Procedures Ziopatch 48 Hrs-15 Days Lc Garcia MD [facility] [address] [facility] [place] [address] Referral ID Status Reason Start Date Expiration Date V isits Requested Visits Authorized [id number] Closed Specialty Service Requested 01/16/2024 01/15/2025 1 1 Encounter Details Date Type Department Care Team (Latest Contact Info) Description 01/16/2024 1:30 PM EDT - 01/16/2024 11:59 PM EDT Hospital Encounter Non-Invasive Cardiology Lab [facility] [place] [address] Lc Garcia MD [facility] [place] [address] Palpitations Discharge Disposition: Home Social History Tobacco [...] Sig Dispensed Refills Start Date End Date Repatha Pushtronex 420 mg/3.5 mL wearable injectorIndications:H [...] 0.5 mg by mouth daily. 2 02/26/2018 prucalopride (Motegrity) 2 mg tabletIndications:Gas troparesis Take 1 tablet by mouth daily. 90 tablet 3 11/17/2023 06/01/2024 metoprolol succinate XL (Toprol-XL) 50 mg ER 24 hr tabletIndications:NST PAULETTE (non-ST elevated myocardial infarction) Take 1 tablet by mouth daily. 90 tablet 3 08/04/2023 02/12/2024 dexlansoprazole (Dexilant) [address] capsule Take 1 capsule by mouth daily. 90 capsule 1 07/07/2023 06/01/2024 documented as of this encounter Plan of Treatment Upcoming Encounters Date Type Department Care Team (Late st Contact Info) Description 07/20/2024 1:15 PM EDT Office Visit Neurosurgery at [facility] [address] [place] [address] Mary Hart MD [address] [place] [address] Irena Pierre PA [facility] [place] [address] documented as of this encounter Procedures Procedure Name Priority Date/Time Associated Diagnosis Comments ZIOPATCH 48 HRS-15 DAYS Routine 01/16/2024 1:56 PM EDT Palpitations documented in this encounter Results * Ziopatch 48 Hrs-15 Days (01/16/2024 1:56 PM EDT) Total Enrollment Period [id number] IRHYTHM Anatomical Region Laterality Modality Other 01/16/2024 Narrative 02/05/2024 3:58 PM EDT [facility] ? Zio Patch Ambulatory Cardiac Event Monitor [...] ??For patients accessing the study from [facility] (My Chart), click on the link or links found in the IMAGES area below the text of the report. Skyler Snowden MD [facility] [facility] Lc Garcia MD CARDIAC SERVICES ORD ERABLES documented in this encounter Visit Diagnoses Diagnosis Palpitations documented in this encounter Care Teams Mac Developer Relationship Specialty Start Date End Date Kaylee Jaquez PA [address] [place] [address] PCP - General Family Medicine 01/18/22 documented as of this encounter
--- OUTSIDE RECORDS SUMMARY | 2024-06-25 11:03 | XMS_ITS | Encounter Summary ---
[place] [address] Care Team Providers Care Financial Solutions Advisor Name Role Phone Kaylee Jaquez Primary Care Provider Reason for Visit * Diagnostic Test (Routine) - Closed Specialty Diagnoses / Procedures Referred By Jasson mendoza Referred To Contact Gastroenterology Diagnoses Constipation, unspecified constipation type ARM for constipation Procedures High Definition Anal Manometry Nimehs Alicia MD [facility] [place] [address] [facility] [place]astro [address] [place] [address] Referral ID Status Reason Start Date Expiration Date V isits Requested Visits Authorized [id number] Closed Consult, Test & Treat 07/14/2023 07/13/2024 1 1 Encounter Details Date Type Department Care Team (Latest Contact Info) Description 08/19/2023 2:00 PM EDT Procedure [place] [address] Constipation, unspecified constipation type Social History Tobacco [...] 2:00 PM EDT Re: Danielle Mills Reg No:[id number] : 1960 Date of Service: 08/19/2023 ANORECTAL MANOMETRY w/BALLOON EXPULSION Referring provider:Nimesh Alicia Dear: Dr. Alicia We had the pleasure of performing a high resolution anorectal manometry on your patient in the GI Motility Laboratory at [facility]. CLINICAL HISTORY AND INDICATION As you know, [...] MD, FRCPC Section of Gastroenterology and Hepatology [facility] [address] [place] [address] V: [phone] F: [phone] CC/EC: JUAN PABLO Waterman [address] [place] [address] documented in this encounter Plan of Treatment Upcoming Encounters Date Type Department Care Team (Late st Contact Info) Description 07/20/2024 1:15 PM EDT Office Visit Neurosurgery at [address] [place] [address] Mary Hart MD [address] [place] [address] Irena Pierre PA 10 [facility] [place] [address] documented as of this encounter Visit Diagnoses Diagnosis Constipation, unspecified constipation type documented in this encounter Care Teams Financial Solutions Advisor Relationship Specialty Start Date End Date Kaylee Jaquez PA [address] [place] [address] PCP - General Family Medicine 01/18/22 documented as of this encounter
--- OUTSIDE RECORDS SUMMARY | 2024-06-25 11:03 | XMS_ITS | Encounter Summary ---
Author Organization [facility] [address] Care Team Providers Care Childcare Administrator Name Role Phone Kaylee Jaquez Primary Care Provider [phone] Reason for Visit * Reason Onset Date Comments Medication Refill 02/12/2024 Encounter Details Date Type Department Care Team (Late st Contact Info) Description 02/12/2024 Refill Cardiology at [address] [address] Lc Garcia MD [facility] [place] [address] Medication Refill Social History Tobacco Use Types [...] RN [facility] Team Nurse [phone] documented in this encounter Plan of Treatment Upcoming Encounters Date Type Department Care Team (Late st Contact Info) Description 07/20/2024 1:15 PM EDT Office Visit Neurosurgery at [facility] [place] [address] Mary Hart MD [address] [facility] [place] [address] Irena Pierre PA [address] [facility] [place] [address] documented as of this encounter Visit Diagnoses Diagnosis NSTEMI (non-ST elevated myocardial infarction) Acute myocardial infarction, subendocardial infarction, episode of care unspecified documented in this encounter Care Teams Childcare Administrator Relationship Specialty Start Date End Date Kaylee Jaquez PA [address] [place] [address] PCP - General Family Medicine 01/18/22 documented as of this encounter
--- OUTSIDE RECORDS SUMMARY | 2024-06-25 11:03 | XMS_ITS | Encounter Summary ---
Author Organization [facility] [place] [address] Care Team Providers Care Fell Cutter Name Role Phone Kaylee Jaquez Primary Care Provider [phone] Reason for Visit * Reason Onset Date Comments Medication Refill 11/17/2023 Encounter Details Date Type Department Care Team (Late st Contact Info) Description 11/17/2023 [place] [address] Nimesh Alicia MD [facility] [place] [address] Gastroparesis Social History Tobacco Use Types Packs/Day [...] 1:15 PM EDT Office Visit Neurosurgery at [address] [place] [address] Mary Hart MD [place] [address] Irena Pierre [place] [address] documented as of this encounter Visit Diagnoses Diagnosis Gastroparesis documented in this encounter Care Teams Fell Cutter Relationship Specialty Start Date End Date Kaylee Jaquez PA [address] [address] PCP - General Family Medicine 01/18/22 documented as of this encounter
--- OUTSIDE RECORDS SUMMARY | 2024-06-25 11:03 | XMS_ITS | Encounter Summary ---
Author Organization [facility] Address [facility] [place] [address] Care Team Providers Care Bicycle Repair Technician Name Role Phone Kaylee Jaquez Primary Care Provider [phone] Encounter Details Date Type Department Care Team (Late st Contact Info) Description 07/31/2023 11:30 AM EDT Office [place] [address] Marta Cabral MD [facility] [place] [address] Type 2 diabetes, controlled, with neuropathy; Delano's [...] ng/mL 25-OH Vit D Interp Deficient TSH [place] Result Value Ref Range TSH 1.59 0.27 [...] Placed This Encounter Procedures Hemoglobin A1c TSH [place] Vitamin D, 25-Hydroxy LDL Cholesterol, Direct X-ray/Imaging study: Office Thyroid ultrasound for thyroid nodule size after 2-4 year at our office(by the same pig furnace operator). 4. RTC: 1-2 years for thyroid [...] our clinic 10/22/19 US from outside at [facility]. Procedure: Real-time ultrasonography limited to the thyroid gland and lateral neck area with and without color doppler were obtained using a SimpleReach Flex Focus 400 US machine and an [...] and occasional difficulty swallowing. Thyroid US at [facility] on 10/22/19 showed a Rt thyroid nodule [...] US in May 2021. 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 4. RTC: 1-2 years for thyroid [...] PM EDT Office Visit Neurosurgery at 10 [place] [address] [place] [address] Irena Pierre PA 10 [place] [address] documented as of this encounter Results * LDL Cholesterol, Direct (07/31/2023 12:12 PM EDT) Pathologist [facility] LDL Cholesterol, Direct 43 mg/dL [facility] Comment: Desirable: ? <100 mg/dL Above Desirable: 100-129 mg/dL Borderline High: 130-159 mg/dL High: ?160-189 mg/dL Very High: ? >pn=748 mg/dL If not reaching LDL goals on [...] Lab Marta Cabral MD CHEMISTRY ORDERAB LES [facility] [address] [place] [address] * (ABNORMAL) Vitamin D, 25-Hydroxy (07/31/2023 12:12 PM EDT) Pathologist [facility] Vitamin D Total 25 OH 20(L) 21 - 100 ng/mL [facility] Vit D Interp Deficient [facility] Blood 07/31/2023 12:1 2 PM EDT 07/31/2023 12:43 PM EDT Narrative Resulting Agency Comment Spec In Lab Marta Cabral MD CHEMISTRY ORDERAB LES Performing Organization Address City/[facility]/ZIP Co de Phone Number [facility] [place] [address] * TSH [place] (07/31/2023 12:12 PM EDT) Thyroid Stimulating Hormone 1.59 0.27 - 4.20 mcIU/mL [facility] Comment: Reference Interval (mcIU/mL): Females: ??First Trimester: 0.23-3.88 ??Second Trimester: 0.22-3.90 ??Third Trimester: 0.44-4.66 Blood 07/31/2023 12:1 2 PM EDT 07/31/2023 12:43 PM EDT Narrative Resulting Agency Comment Spec In Lab Marta Cabral MD CHEMISTRY ORDERAB LES Performing Organization Address [facility] Co de Phone Number [facility] [place] [address] * (ABNORMAL) Hemoglobin A1c (07/31/2023 12:12 PM EDT) Hemoglobin A1c 6.9(H) 4.3 - 5.6 % [facility] Comment: Reference Range: 4.3 - [...] Mellitus, Diabetes Care 2013; 36: Suppl. 1, B89-24 Estimated Average Glucose 150 mg/dL [facility] Blood 07/31/2023 12:1 2 PM EDT 07/31/2023 12:43 PM EDT Narrative Resulting Agency Comment Spec In Lab Marta Cabral MD CHEMISTRY ORDERAB LES [facility] [place] [address] documented in this encounter Visit Diagnoses Diagnosis Type 2 diabetes, controlled, with neuropathy Type II or unspecified type diabetes mellitus with neurological manifestations, not stated as uncontrolled Delano's thyroiditis Chronic lymphocytic thyroiditis Vitamin D deficiency Unspecified vitamin D deficiency 3-vessel CAD Coronary atherosclerosis of unspecified type of vessel, [place] or graft documented in this encounter Care Teams Bicycle Repair Technician Relationship Specialty Start Date End Date Kaylee Jaquez PA [address] [place] [address] PCP - General Family Medicine 01/18/22 documented as of this encounter
--- OUTSIDE RECORDS SUMMARY | 2024-06-25 11:03 | XMS_ITS | Encounter Summary ---
Author Organization [facility] [place] [address] Care Team Providers Care Plastic Die Maker Apprentice Name Role Phone Kaylee Jaquez Primary Care Provider [phone] Encounter Details Date Type Department Care Team [...] PM EDT Office Visit Neurosurgery at [address] [place] [address] Mary Hart MD [address] [place] [address] Irena Pierre PA [address] [place] [address] documented as of this encounter Visit Diagnoses Not on filedocumented in this encounter Care Teams Plastic Die Maker Apprentice Relationship Specialty Start Date End Date Kaylee Jaquez PA [address] [place] [address] PCP - General Family Medicine 01/18/22 documented as of this encounter
--- OUTSIDE RECORDS SUMMARY | 2024-06-25 11:03 | XMS_ITS | Encounter Summary ---
Author Organization [facility] [place] [address] Care Team Providers Care Maitre D Name Role Phone Kaylee Jaquez Primary Care Provider [phone] Encounter Details Date Type Department Care Team (Late st Contact Info) Description 05/26/2024 8:35 AM EST Ancillary Procedure Radiology Library at [facility] [place] [address] Kaylee Jaquez PA [address] [place], [place] [address] Social History Tobacco Use Types Packs/Day Years [...] Office Visit Neurosurgery at [facility] [address] [place] [address] Mary Hart MD [address] [place] [address] Irena Pierre PA [address] [place] [address] documented as of this encounter Procedures Procedure Name Priority Date/Time Associated Diagnosis Comments FILM LIBRARY STORAGE ONLY MR SPINE Routine 05/26/2024 8:35 AM EST documented in this encounter Results * Film Library- Storage Only MR Spine (05/26/2024 8:35 AM EST) 05/26/2024 3:42 PM EST Narrative [facility] 05/26/2024 3:42 PM EST This exam is auto-finalizing. It's purpose is for storage only. Kaylee ALMEIDA IMG FILM LIBRARY ORD ERABLES Performing Organization Address City/State/[facility] Co de Phone Number [place], [place] documented in this encounter Visit Diagnoses Not on filedocumented in this encounter Care Teams Maitre D Relationship Specialty Start Date End Date Kaylee Jaquez PA [address] [place] [address] PCP - General Family Medicine 01/18/22 documented as of this encounter
--- OUTSIDE RECORDS SUMMARY | 2024-06-25 11:03 | XMS_ITS | Encounter Summary ---
[place] [address] Care Team Providers Care Conference Coordinator Name Role Phone Kaylee Jaquez Primary Care Provider Reason for Referral * Diagnostic Test (Routine) - Closed Specialty Diagnoses / Procedures Referred By Jasson mendoza Referred To Contact Cardiology Diagnoses Palpitations Procedures Ziopatch 48 Hrs-15 Days Lc Garcia MD [facility] [place] [address] [facility] [place] [address] Referral ID Status Reason Start Date Expiration Date V isits Requested Visits Authorized [id number] Closed Specialty Service Requested 01/16/2024 01/15/2025 1 1 Reason for Visit * Reason Onset Date Comments Palpitations 01/13/2024 Chest Pain 01/13/2024 Encounter Details Date Type Department Care Team (Late st Contact Info) Description 01/13/2024 Telephone Cardiology at [address] [address] Minerva Mejia RN Palpitations; Chest [...] 3:41 PM EDT Lc Garcia MD to [facility] Nurse - [facility] Cardiology [place] 01/13/24 2:16 PM Please obtain records. Recommend [...] PM EDT Office Visit Neurosurgery at [address] [place] [phone] Mary Hart MD [address] [place] [address] Irena Pierre PA [address] [place] [address] documented as of this encounter Results * Ziopatch 48 Hrs-15 Days (01/16/2024 1:56 PM EDT) Total Enrollment Period [id number] IRHYTHM Anatomical Region Laterality Modality Other 01/16/2024 Narrative 02/05/2024 3:58 PM EDT [facility] ? [facility] [...] tab. ??For patients accessing the study from [facility] (My Chart), click on the link or links found in the IMAGES area below the text of the report. Skyler Snowden MD [facility] Lc Garcia MD CARDIAC SERVICES ORD ERABLES documented in this encounter Visit Diagnoses Diagnosis Palpitations Palpitations documented in this encounter Care Teams Conference Coordinator Relationship Specialty Start Date End Date Kaylee Jaquez PA [address] [place] [address] PCP - General Family Medicine 01/18/22 documented as of this encounter
--- OUTSIDE RECORDS SUMMARY | 2024-06-25 11:03 | XMS_ITS | Encounter Summary ---
Author Organization [facility] [place] [address] Care Team Providers Care Director Of Contracts Name Role Phone Kaylee Jaquez Primary Care [...] PM EDT Office Visit Neurosurgery at [address] [place] [address] Mary Hart MD [address] [place] [address] Irena Pierre PA [address] [place] [address] documented as of this encounter Visit Diagnoses Not on filedocumented in this encounter Care Teams Director Of Contracts Relationship Specialty Start Date End Date Kaylee Jaquez PA [address] [place] [address] PCP - General Family Medicine 01/18/22 documented as of this encounter
--- OUTSIDE RECORDS SUMMARY | 2024-06-25 11:03 | XMS_ITS | Encounter Summary ---
Author Organization [facility] [place] [address] Care Team Providers Care Metallurgical Engineering Technician Name Role Phone Kaylee Jaquez Primary Care Provider Encounter Details Date Type Department Care Team (Late st Contact Info) Description 09/05/2023 Interpretation Only Radiology Library at [facility] [place] [phone] Unknown None Social History Tobacco Use Types [...] EDT Office Visit Neurosurgery at [address] [place] [phone] Mary Hart MD [address] [place] [address] Irena Pierre PA [address] [place] [address] documented as of this encounter Procedures Procedure Name Priority Date/Time Associated Diagnosis Comments FILM LIBRARY STORAGE ONLY DX WRIST Routine 09/05/2023 2:30 PM EDT documented in this encounter Results * Film Library- Storage Only DX Wrist (09/05/2023 2:30 PM EDT) 10/28/2023 4:11 PM EDT Narrative [facility] - 10/28/2023 4:11 PM EDT This exam is auto-finalizing. It's purpose is for storage only. Unknown IMG FILM LIBRARY ORD ERABLES [place], [place] documented in this encounter Visit Diagnoses Not on filedocumented in this encounter Care Teams Metallurgical Engineering Technician Relationship Specialty Start Date End Date Kaylee Jaquez PA [address] [place] [address] PCP - General Family Medicine 01/18/22 documented as of this encounter
--- OUTSIDE RECORDS SUMMARY | 2024-06-25 11:03 | XMS_ITS | Encounter Summary ---
[place] [address] Care Team Providers Care Relief Mate Name Role Phone Kaylee Jaquez Primary Care Provider [phone] Encounter Details Date Type Department Care Team (Latest Contact Info) Description 07/31/2023 1:25 PM EDT Laboratory Appointment Lab [address] [place] [phone] Type 2 diabetes, controlled, with neuropathy; Delano's [...] PM EDT Office Visit Neurosurgery at Kristine [address] [place] [phone] [place] [address] Irena Pierre PA [address] [place] [address] documented as of this encounter Procedures Procedure [...] Hemoglobin A1c 6.9(H) 4.3 - 5.6 % [facility] Comment: Reference Range: 4.3 - [...] Mellitus, Diabetes Care 2013; 36: Suppl. 1, C17-12 Estimated Average Glucose 150 mg/dL [facility] Blood 07/31/2023 12:1 2 PM EDT 07/31/2023 12:43 PM EDT Narrative Resulting Agency Comment Spec In Lab Marta Rivera MD CHEMISTRY ORDERAB LES Performing Organization Address [facility] Co de Phone Number [facility] [place] [address] * TSH [place] (07/31/2023 12:12 PM EDT) Thyroid Stimulating Hormone 1.59 0.27 - 4.20 mcIU/mL [facility] Comment: Reference Interval (mcIU/mL): Females: ??First Trimester: 0.23-3.88 ??Second Trimester: 0.22-3.90 ??Third Trimester: 0.44-4.66 Blood 07/31/2023 12:1 2 PM EDT 07/31/2023 12:43 PM EDT Narrative Resulting Agency Comment Spec In Lab Marta Rivera MD CHEMISTRY ORDERAB LES Performing Organization Address [facility] Co de Phone Number [facility] [place] [address] * (ABNORMAL) Vitamin D, 25-Hydroxy (07/31/2023 12:12 PM EDT) Vitamin D Total 25 OH 20(L) 21 - 100 ng/mL [facility] Vit D Interp Deficient [facility] Blood 07/31/2023 12:1 2 PM EDT 07/31/2023 12:43 PM EDT Narrative Resulting Agency Comment Spec In Lab Marta Rivera MD CHEMISTRY ORDERAB LES Performing Organization Address [facility] Co de Phone Number [facility] [place] [address] * LDL Cholesterol, Direct (07/31/2023 12:12 PM EDT) LDL Cholesterol, Direct 43 mg/dL [facility] Comment: Desirable: ? <100 mg/dL Above Desirable: 100-129 mg/dL Borderline High: 130-159 mg/dL High: ?160-189 mg/dL Very High: ? >kq=609 mg/dL If not reaching LDL goals on [...] MD CHEMISTRY ORDERAB LES Performing Organization Address City/State/[facility] Co de Phone Number [facility] [place] [address] documented in this encounter Visit Diagnoses Diagnosis Type 2 diabetes, controlled, with neuropathy Type II or unspecified type diabetes mellitus with neurological manifestations, not stated as uncontrolled Delano's thyroiditis Chronic lymphocytic thyroiditis Vitamin D deficiency Unspecified vitamin D deficiency 3-vessel CAD Coronary atherosclerosis of unspecified type of vessel, elem or graft documented in this encounter Care Teams Relief Mate Relationship Specialty Start Date End Date Kaylee Jaquez PA [address] [place] [address] PCP - General Family Medicine 01/18/22 documented as of this encounter
--- OUTSIDE RECORDS SUMMARY | 2024-06-25 11:03 | XMS_ITS | Encounter Summary ---
Author Organization [facility] Address [facility] [place] [address] Care Team Providers Care Heel Seat Flap Stapler Name Role Phone Kaylee Jaquez Primary Care Provider Reason for Visit * Reason Onset Date Comments Medication Refill 07/30/2023 Encounter Details Date Type Department Care Team (Late st Contact Info) Description 07/30/2023 Refill Cardiology at [address] [address] Lc Garcia MD [facility] [place] [address] Medication Refill Social History Tobacco Use Types [...] EDT Office Visit Neurosurgery at [facility] [place] [address] Mary Hart MD [address] [place] [address] Irena Pierre PA [address] [place] [address] documented as of this encounter Visit Diagnoses Diagnosis NSTEMI (non-ST elevated myocardial infarction) Acute myocardial infarction, subendocardial infarction, episode of care unspecified documented in this encounter Care Teams Heel Seat Flap Stapler Relationship Specialty Start Date End Date Kaylee Jaquez PA [address] [place] [address] PCP - General Family Medicine 01/18/22 documented as of this encounter
--- OUTSIDE RECORDS SUMMARY | 2024-06-25 11:03 | XMS_ITS | Encounter Summary ---
Author Organization [facility] [place] [address] Care Team Providers Care Crown Presser Name Role Phone Kaylee Jaquez Primary Care Provider Reason for Visit * Reason Onset Date Comments Medication Refill 06/01/2024 Encounter Details Date Type Department Care Team (Late st Contact Info) Description 06/01/2024 [place] [address] Nimesh Alicia MD [facility] [place] [address] Gastroparesis Social History Tobacco Use Types Packs/Day [...] Visit Neurosurgery at [address] [place] [address] Mary Hart MD [place] [address] Irena Pierre [place] [address] documented as of this encounter Visit Diagnoses Diagnosis Gastroparesis documented in this encounter Care Teams Crown Presser Relationship Specialty Start Date End Date Kaylee Jaquez PA [address] [address] PCP - General Family Medicine 01/18/22 documented as of this encounter
--- OUTSIDE RECORDS SUMMARY | 2024-06-25 11:03 | XMS_ITS | Encounter Summary ---
[place] [address] Care Team Providers Care Sewing Machine Operator Paper Bags Name Role Phone Kaylee Jaquez Primary Care Provider Reason for Visit * Reason Comments Right Wrist Pain Encounter Details Date Type Department Care Team ([facility] st Contact Info) Description 11/03/2023 3:15 PM EDT Office Visit Orthopaedics at [address] [address] Sofie Whiting MD [address] [place] [address] [place] [address] Pain in right wrist Social History Tobacco [...] PM EDT Office Visit Neurosurgery at [address] [place] [address] Mary [place] [address] Irena [place] [address] documented as of this encounter Visit Diagnoses [...] mg documented in this encounter Care Teams Sewing Machine Operator Paper Bags Relationship Specialty Start Date End Date Kaylee Jaquez PA [address] [place] [address] PCP - General Family Medicine 01/18/22 documented as of this encounter
--- OUTSIDE RECORDS SUMMARY | 2024-06-25 11:03 | XMS_ITS | Encounter Summary ---
[place] [address] Care Team Providers Care Glass Maker Name Role Phone Kaylee Jaquez Primary Care Provider Encounter Details Date Type Department Care Team (Late st Contact Info) Description 07/30/2023 Abstract Cardiology at [address] [address] Kiki Peck, RN Social History Tobacco Use [...] 1:15 PM EDT Office Visit Neurosurgery at [facility] Cynthia [address] [place] [phone] Mary Hart MD [address] [place] [address] Irena Pierre PA [address] [place] [address] documented as of this encounter Visit Diagnoses Not on filedocumented in this encounter Care Teams Glass Maker Relationship Specialty Start Date End Date Kaylee Jaquez PA [address] [place] [address] PCP - General Family Medicine 01/18/22 documented as of this encounter
--- OUTSIDE RECORDS SUMMARY | 2024-06-25 11:03 | XMS_ITS | Encounter Summary ---
Author Organization [facility] Address [facility] [place] [address] Care Team Providers Care Natural Sciences Manager Name Role Phone Kaylee Jaquez Primary Care Provider Encounter Details Date Type Department Care Team (Latest Contact Info) Description 08/15/2023 11:40 AM EDT Office Visit Cardiology at [address] [address] Lc Garcia MD [facility] [place] [address] ASCVD (arteriosclerotic cardiovascular disease); Hyperlipidemia, unspecified hyperlipidemia [...] Garcia MD - 08/15/2023 11:40 AM EDT [facility] Outpatient Cardiology Patient: Danielle Mills : 1960 Reason for follow up: ASCVD chest pain PCP: JUAN PABLO Waterman History of present illness: Danielle Mills is a 63 y.o. female with multivessel ASCVD who presents to establish cardiovascular care in the setting of her prior blocker and cutter contact lens departing a local practice. History is notable for multivessel PCI in the context of non- STEMI in January 2022 performed at [facility], referred from [facility]. The patient was noted to have [...] Constipation Added automatically from request for surgery [id number] Non-ST elevation myocardial infarction (NSTEMI) NSTEMI (non-ST [...] 4.67) performed by Nimesh Alicia MD at [facility] ENDOSCOPY PRO INJECTION DX/THER SBST INTRLMNR LMBR/SAC W/IMG GDN Midline 01/23/2023 INJECTION, EPIDURAL, LUMBAR OR SACRAL (CAUDAL), WITH IMAGING GUIDANCE (WRVU 1.8) performed by Avlarez Monteiro MD at [facility] PAIN MGMT MSO PRO INJECTION DX/THER SBST INTRLMNR LMBR/SAC W/IMG GDN Midline 01/23/2023 Lumbar or Sacral Epidural Steroid Inj Sacral (Caudal) (90777) performed by Alvarez Monteiro MD at [facility] PAIN MGMT MSO PRO UPPER GI ENDOSCOPY, BIOPSY N/A 11/19/2018 EGD WITH BIOPSY (WRVU 2.49) performed by Nimesh Alicia MD at [facility] ENDOSCOPY RECTOCELE REPAIR 2014 Dr. Boo @ [facility] SHOULDER SURGERY Left 06/05/2017 L shoulder [...] discuss this patient, please contact me at [phone] or by email at [email or web address]. CC: JUAN PABLO Waterman documented in this encounter Plan of Treatment Upcoming Encounters Date Type Department Care Team (Late st Contact Info) Description 07/20/2024 1:15 PM EDT Office Visit Neurosurgery at [facility] [address] Mary Hart MD [place] [address] Irena Pierre PA [facility] [place] [address] documented as of this encounter Visit Diagnoses Diagnosis ASCVD (arteriosclerotic cardiovascular disease) Unspecified cardiovascular disease Hyperlipidemia, unspecified hyperlipidemia type Non-cardiac chest pain Other chest pain Current smoker Tobacco use disorder documented in this encounter Care Teams Natural Sciences Manager Relationship Specialty Start Date End Date Kaylee Jaquez PA [address] [address] PCP - General Family Medicine 01/18/22 documented as of this encounter
--- OUTSIDE RECORDS SUMMARY | 2024-06-25 11:03 | XMS_ITS | Encounter Summary ---
[facility] Organization [facility] [place] [address] Care Team Providers Care Family Worker Name Role Phone Kaylee Jaquez Primary Care Provider [phone] Reason for Visit * Auth/Cert (Routine) Specialty Diagnoses / Procedures Referred By Jasson mendoza Referred To Contact Diagnoses Gastroparesis villegas's surveillance Procedures PRO UPPER GI ENDOSCOPY, DIAGNOSTIC PRO UPPER GI ENDOSCOPY, BIOPSY PRO UP GI ENDOSCOPY, REMV TUMOR, SNARE PRO ANES, UGI ENDOSCOPY NOS EGD, UPPER GI ENDOSCOPY (WRVU 2.09) Nimesh Alicia MD [facility] [place] [address] [facility] Referral ID Status Reason Start Date Expiration Date Visits Re quested Visits Authorized [id number] 1 1 Encounter Details Date Type Department Care Team (Latest Contact Info) Description 10/03/2023 9:38 AM EDT - 10/03/2023 12:15 PM EDT Hospital En[place] [address] Nimesh Alicia MD [facility] [place] [address] Discharge Disposition: Home Social History Tobacco Use [...] the day after the procedure, use an igmu-iog-xffxrsc spray to numb your throat. Sucking on [...] occurs, please contact your Doctor. Please call [phone] before 8pm Mon-Fri with problems, questions or concerns. If you call after 8pm or on weekends, call the Hospital at [phone] and ask to speak to the Cardiovascular Radiologic Technologist professional housing consultant and the jigsaw operator will contact that person for you. When should you call for help? Call [phone] anytime you think you may need emergency [...] any problems. Where can you learn more? [facility] View your After Visit Summary and more online at [email or web address] If you would like to provide feedback about your hospital experience, please call the Office of Patient and Family Relations at . If you have received this After Visit Summary in error, please immediately return it in person to the department, or notify the [facility] Privacy Office by calling toll free at between the hours of 8AM and 5PM to arrange for our retrieval of the documents at no cost to you. Content Version: 12.2 ?? 9550-6015 [employer]. Care instructions adapted under license by [facility]. If you have questions about a medical condition or this instruction, always ask your healthcare professional. [employer] disclaims any warranty or liability for your [...] the day after the procedure, use an anfo-bmq-mkvlvwr spray to numb your throat. Sucking on [...] occurs, please contact your Doctor. Please call [phone] before 8pm Mon-Fri with problems, questions or concerns. If you call after 8pm or on weekends, call the Hospital at [phone] and ask to speak to the Cardiovascular Radiologic Technologist professional housing consultant and the jigsaw operator will contact that person for you. When should you call for help? Call [phone] anytime you think you may need emergency [...] any problems. Where can you learn more? [facility] View your After Visit Summary and more online at [email or web address] If you would like to provide feedback about your hospital experience, please call the Office of Patient and Family Relations at . If you have received this After Visit Summary in error, please immediately return it in person to the department, or notify the [facility] Privacy Office by calling toll free at between the hours of 8AM and 5PM to arrange for our retrieval of the documents at no cost to you. Content Version: 12.2 ?? 3487-1095 [employer]. Care instructions adapted under license by [facility]. If you have questions about a medical condition or this instruction, always ask your healthcare professional. 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 Carpal tunnel syndrome G56.00 Cystocele COD0092 Depression, anxiety, insomnia, PTSD F32.A Edema R60.9 [...] 1:15 PM EDT Office Visit Neurosurgery at [facility] [address] [place] [address] Mary Hart MD [facility] [place] [address] Irena Pierre PA [address] [place] [address] documented as of this encounter Procedures Procedure Name Priority Date/Time Associated Diagnosis Comments SPECIMEN TO PATHOLOGY Routine 10/03/2023 11:02 AM EDT SURGICAL PATHOLOGY REPORT Routine 10/03/2023 10:58 AM EDT UPPER GI ENDOSCOPY Routine 10/03/2023 10 :50 AM EDT Upper Gi Endoscopy, Biopsy (58480) 10/03/2023 10:48 AM EDT Gastroparesis POCT GLUCOSE Routine 10/03/2023 10:27 AM EDT documented in this encounter Results * Specimen to Pathology (10/03/2023 11:02 AM EDT) AP Specimen 10/03/2023 11:0 2 AM EDT 10/03/2023 11:03 AM EDT Narrative [facility] - 10/03/2023 11:03 AM EDT Specimen requisition ordered. ??Separate Pathology report to follow Nimesh Alicia MD PATHOLOGY/CYTOLOGY O RDERABLES [facility] [place] [address] * Surgical Pathology Report (10/03/2023 10:58 AM EDT) Final Diagnosis [id number] ? Location: 4T; EA10; A The signing pathologist has (i) examined the relevant preparation(s) for the specimen(s) and (ii) rendered or confirmed the diagnosis(es). . ?Surgical Pathology DIAGNOSIS A - GE junction,biopsy (Multiple): - ??Squamous esophageal and cardiac mucosa within normal limits. - ??No goblet cell metaplasia is seen. Electronically signed by: ?Desirae ABDUL, Cleopatra Andersen Verified: ??10/14/2023 15:24 ??Pathologist Performed at: ??-[facility] Dept. of Pathology, [place] [address] Hogshead Filler: Cleopatra Merrill MD, FCAP, ??CLIA Certificate: [id number] SPECIMEN(S) SUBMITTED A - GE junction bx's. r/o ?? Villegas's, biopsy (Multiple) CLINICAL INFORMATION 63-year-old with? ??Villegas's SPECIMEN PROCESSING A - Labeled/Fixativ e: GE junction BX, rule out Villegas's, formalin. Quantity/Size: Four, averaging 0.4 cm. Tissue Description: Soft, pink-red tissues. Sections/Proces sing: Submitted in toto ??in 1 cassette labeled A1. ??sns 10/14/2023 3:24 PM EDT [facility] GI Biopsy 10/03/2023 10:5 8 AM EDT 10/03/2023 10:58 AM EDT Nimesh Alicia MD PATHOLOGY/[place] [address] * UPPER GI ENDOSCOPY (10/03/2023 10:50 AM EDT) UPPER GI ENDOSCOPY [facility] ___ Procedure Date: 10/03/2023 10:50 AM ? Patient Name: Danielle Mills ? Date of : 1960 ? Age: 63 ? Order #: [id number] ? Instrument Name: [id number] ? ___ Procedure: ? Upper GI endoscopy Indications: ? Gastro-esophageal reflux disease, ? Follow-up of Villegas's esophagus Providers: ? Nimesh Alicia, Carlos Swann ? SHAR Stubbs, Carlos Veliz Referring : ?Kaylee Jaquez Medicines: [...] Procedure Code(s): ? --- Professional --- ? 51567, Esophagogastroduode noscopy, ? flexible, transoral; with biopsy, ? single or multiple Diagnosis Code(s): ? --- Professional --- ? K21.9, Gastro-esophageal reflux ? disease without esophagitis ? K22.70, Villegas's esophagus without ? dysplasia ? --- Technical --- ? K21.9, Gastro-esophageal reflux ? disease without esophagitis ? K22.70, Villegas's esophagus without ? dysplasia CPT copyright 2021 [employer]. All rights reserved. The codes documented in this report are preliminary and upon bench grinder review may be revised to meet current compliance requirements. Attending Participation: ? I personally performed the entire procedure. ? Nimesh Alicia, 10/03/2023 11:02:52 AM Number of Addenda: 0 Note Initiated On: 10/03/2023 10:50 AM PROVATION 10/03/2023 10:5 0 AM EDT Unknown GENERAL SURGICAL ORD ERABLES [facility] * POCT Glucose (10/03/2023 10:27 AM EDT) Glucose, POC 114 65 - 199 mg/dL [facility] Comment: Supplemental ranges: <140 mg/dL before meals <180 mg/dL all other times of the day Blood 10/03/2023 10:2 7 AM EDT 10/03/2023 10:27 AM EDT Nimesh Alicia MD POINT OF CARE TEST O RDERABLES [facility] [place] [address] documented in this encounter Visit Diagnoses Not [...] CRNA) documented in this encounter Care Teams Family Worker Relationship Specialty Start Date End Date Kaylee Jaquez PA [address] [place] [address] PCP - General Family Medicine 01/18/22 documented as of this encounter
--- OUTSIDE RECORDS SUMMARY | 2024-06-25 11:03 | XMS_ITS | Encounter Summary ---
[place] [address] Care Team Providers Care Storeroom Supervisor Name Role Phone Kaylee Jaquez Primary Care Provider [phone] Encounter Details Date Type Department Care Team (Late st Contact Info) Description 05/27/2024 Abstract Neurosurgery at [facility] [address] [place] [address] Joycelyn Richard, BUS PERSON Social History Tobacco Use Types Packs/Day Years [...] 1:15 PM EDT Office Visit Neurosurgery at [facility] [address] [place] [address] Mary Hart MD [address] [facility] [place] [address] Irena Pierre PA [address] [facility] [place] [address] documented as of this encounter Visit Diagnoses Not on filedocumented in this encounter Care Teams Storeroom Supervisor Relationship Specialty Start Date End Date Kaylee Jaquez PA [address] [place] [address] PCP - General Family Medicine 01/18/22 documented as of this encounter
--- OUTSIDE RECORDS SUMMARY | 2024-06-25 11:03 | XMS_ITS | Encounter Summary ---
[facility] [place] [address] Care Team Providers Care Finish Repairer Name Role Phone Kaylee Jaquez Primary Care Provider [phone] Encounter Details Date Type Department Care Team [...] PM EDT Office Visit Neurosurgery at [address] [place] [address] Mary Hart MD 10 [place] [address] Irena Pierre PA [address] [place] [address] documented as of this encounter Visit Diagnoses Not on filedocumented in this encounter Care Teams Finish Repairer Relationship Specialty Start Date End Date Kaylee Jaquez PA [address] [place] [address] PCP - General Family Medicine 01/18/22 documented as of this encounter
--- OUTSIDE RECORDS SUMMARY | 2024-06-25 11:03 | XMS_ITS | Encounter Summary ---
[place] [address] Care Team Providers Care Director Talent Acquisition Name Role Phone Kaylee Jaquez Primary Care Provider [phone] Reason for Referral * Consultation (Routine) - Closed Specialty Diagnoses / Procedures Referred By Jasson mendoza Referred To Contact Urology Diagnoses Pelvic and perineal pain Kaylee Jaquez PA [address] [place] [address], [place] [address] [facility] Concrete Engineering Technician [address], [place] [address] Referral ID Status Reason Start Date Expiration Date V isits Requested Visits Authorized [id number] Closed Consult, Test & Treat PCP Updated and/or Approved 03/26/2024 03/26/2025 6 6 Encounter Details Date Type Department Care Team (Latest Contact Info) Description 04/26/2024 Transcribe Orders eDH Incoming Referrals [phone] Kaylee Jaquez PA [address] [place] [address] Pelvic and perineal pain Social History Tobacco [...] 1:15 PM EDT Office Visit Neurosurgery at [facility] [address] [place] [address] Mary Hart MD 10 [facility] [place] [address] Irena Pierre PA [address] [facility] [place] [address] Scheduled Referrals Name Type Priority Associated Diagnoses Order Schedule Referral to Urogynecology Outpatient Referral Urgent Pelvic and perineal pain Ordered: 04/26/2024 documented as of this encounter Visit Diagnoses Diagnosis Pelvic and perineal pain Unspecified symptom associated with female genital organs documented in this encounter Care Teams Director Talent Acquisition Relationship Specialty Start Date End Date Kaylee Jaquez PA [address] [address] PCP - General Family Medicine 01/18/22 documented as of this encounter
--- OUTSIDE RECORDS SUMMARY | 2024-06-25 11:03 | XMS_ITS | Encounter Summary ---
[place] [address] Care Team Providers Care Dining Car Steward Name Role Phone Kaylee Jaquez Primary Care Provider Encounter Details Date Type Department Care Team (Late st Contact Info) Description 10/03/2023 Telephone Physical Therapy at [facility] [address] [place] [address] Tatyana Hernandez Social History Tobacco Use Types [...] PM EDT Office Visit Neurosurgery at [facility] [address] [place] [address] Mary Hart MD [address] [place] [address] Irena Pierre PA [address] [place] [address] documented as of this encounter Visit Diagnoses Not on filedocumented in this encounter Care Teams Dining Car Steward Relationship Specialty Start Date End Date Kaylee Jaquez PA [address] [address] PCP - General Family Medicine 01/18/22 documented as of this encounter
--- OUTSIDE RECORDS SUMMARY | 2024-06-25 11:03 | XMS_ITS | Encounter Summary ---
Author Organization [facility] [place] [address] Care Team Providers Care Top And Seat Cover Fitter Name Role Phone Kaylee Jaquez Primary Care Provider [phone] Encounter Details Date Type Department Care Team [...] PM EDT Office Visit Neurosurgery at 10 [place] [address] Mary Hart MD 10 [place] [address] Irena Pierre PA [address] [place] [address] documented as of this encounter Visit Diagnoses Not on filedocumented in this encounter Care Teams Top And Seat Cover Fitter Relationship Specialty Start Date End Date Kaylee Jaquez PA [address] [place] [address] PCP - General Family Medicine 01/18/22 documented as of this encounter
--- OUTSIDE RECORDS SUMMARY | 2024-06-25 11:03 | XMS_ITS | Clinical Summary ---
Author Organization [facility] Address [facility] [place] [address] Care Team Providers Care Adult School Counselor Name Role Phone Kaylee Jaquez Primary [...] mg by mouth 2 times daily. Active liothyronine (Cytomel) 5 mcg tablet Take [...] 30 DAYS 12 mL 3 11/07/2023 Active metoprolol succinate XL (Toprol-XL) 50 mg ER 24 hr tabletIndications:N STEMI (non-ST elevated myocardial infarction) Take 1.5 tablets by mouth daily. 135 tablet 3 02/12/2024 Active dexlansoprazole (Dexilant) [address] capsule Take 1 capsule by mouth daily. 90 capsule 1 06/01/2024 Active prucalopride (Motegrity) 2 mg tabletIndications:G astroparesis Take 1 tablet by mouth daily. 90 tablet 3 06/01/2024 Active Active Problems Problem Noted Date Diagnosed Date Radiculopathy of lumbar region 01/23/2023 Constipation 08/29/2020 Overview (08/29/2020): Added automatically from request for surgery [id number] Non-ST elevation myocardial infarction (NSTEMI) 02/07/2020 NSTEMI [...] Encounters Date Type Department Care Team Description 06/01/2024 [facility] [place] [address] Nimesh Alicia MD Gastroparesis 05/27/2024 Abstract Neurosurgery at [facility] [place] [address] Joycelyn Richard CMA 05/26/2024 8:35 AM EST Ancillary Procedure Radiology Library at [facility] ([place] [address] Kaylee Jaquez PA 05/26/2024 Interpretation Only Radiology Library at [facility] ([place] [address] Kaylee Jaquez PA 04/30/2024 Transcribe Orders eD Incoming Referrals [phone] Celia López, Low back pain, unspecified back pain laterality, unspecified chronicity, unspecified whether sciatica present 04/26/2024 Transcribe Orders eD Incoming Referrals [phone] Kaylee Jaquez PA Pelvic and perineal pain from Last 3 [...] 10/03/2023 10:07 AM EDT Plan of Treatment Upcoming Encounters Date Type Department Care Team (Late st Contact Info) Description 07/20/2024 1:15 PM EDT Office Visit Neurosurgery at 10 [place] [address] Mary Hart MD [address] [place] [address] Irena Pierre PA [address] [place] [address] Health Maintenance Due Date Last Done Comments CT Colonography 1960 FIT DNA 1960 FIT 1960 Sigmoidoscopy 1960 DM Opthalmology Exam 07/19/1971 HIV screen 07/19/1979 Hepatitis C Screening 07/19/1979 Pneumoccocal Vaccine: 50+ (1 of 2 - PCV) 1980 Tetanus/Diphtheria/Pertussis [...] MR SPINE Routine 05/26/2024 8:35 AM EST MRI/MRA SCAN 05/26/2024 12:00 AM EST HEMOGLOBIN A1C Routine 07/31/2023 12:12 PM EDT [...] Recently Relevant to Health Maintenance Results * Film Library- Storage Only MR Spine (05/26/2024 8:35 AM EST) 05/26/2024 3:42 PM EST Narrative [facility] 05/26/2024 3:42 PM EST This exam is auto-finalizing. It's purpose is for storage only. Kaylee ALMEIDA Radha FILM LIBRARY ORD ERABLES [facility] [place] * Scan Doc: MRI/MRA (05/26/2024 12:00 AM EST) Anatomical Region Laterality Modality Other Narrative 05/26/2024 12:00 AM EST Ordered by an unspecified provider. Scanning Provider MEDIA MGR SCAN EXT O RDR/RSLT * (ABNORMAL) Hemoglobin A1c (07/31/2023 12:12 PM EDT) Hemoglobin A1c 6.9(H) 4.3 - 5.6 % [facility] Comment: Reference Range: 4.3 - [...] Mellitus, Diabetes Care 2013; 36: Suppl. 1, I92-43 Estimated Average Glucose 150 mg/dL [facility] Blood 07/31/2023 12:1 2 PM EDT 07/31/2023 12:43 PM EDT Narrative Resulting Agency Comment Spec In Lab Marta Rivera MD CHEMISTRY ORDERAB LES [place] [address] * U Albumin/Cre Ratio (07/29/2022 10:59 AM EDT) Albumin / Creatinin Ratio, Urine Not Calculated 0 - 29 mcg/mg Cr [facility] Comment: Reference Ranges: <30 mcg/mg: Normal [...] 2, 357? 362 Albumin, Urine <3.0 mg/L [facility] Creatinine, Urine 49 mg/dL [facility] Urine 07/29/2022 10:5 9 AM EDT 07/29/2022 11:16 AM EDT Narrative Resulting Agency Comment Spec In Lab Marta Rivera MD URINE ORDERABLES [facility] [place] [address] * Basic Metabolic Panel (non-fasting) (07/29/2022 10:55 AM EDT) Glucose 139 65 - 199 mg/dL [facility] Comment:Diabetes: >=200 mg/d L plus symptoms Blood Urea Nitrogen 11 8 - 18 mg/dL [facility] Creatinine 0.70 0.70 - 1.20 mg/dL [facility] Sodium 142 135 - 145 mmol/L [facility] Potassium 3.8 3.5 - 5.0 mmol/L [facility] Comment: Please note: ??Patients with WBC >100,000 may have falsely elevated Potassium levels. ??For accurate Potassium quantification in these patients send serum separator tube (gold top) for subsequent determinations. ??Contact the Clinical Chemistry Laboratory if there are any questions. Chloride 103 98 - 107 mmol/L [facility] Carbon Dioxide 28 22 - 31 mmol/L [facility] Anion Gap 11 5 - 15 mmol/L [facility] Calcium 9.4 8.5 - 10.5 mg/dL [facility] Est Glomerular Filtration Rate 98 >=60 mL/min/1. 73 m?? [facility] Comment: This patient's estimated GFR was [...] Lab Marta Rivera MD CHEMISTRY ORDERAB LES [place] [address] * COLONOSCOPY (08/01/2021 9:51 AM EDT) COLONOSCOPY [facility] Endoscopy Procedure Date: 08/01/2021 9:51 AM ? Patient Name: Danielle Mills ? Date of : 1960 ? Age: 61 ? Order #: [id number] ? Instrument Name: [id number] ? Procedure: ? Colonoscopy Indications: ? Constipation [...] Procedure Code(s): ?? --- Professional --- ? 56469, Colonoscopy, flexible; with ? removal of tumor(s), polyp(s), or ? other lesion(s) by snare technique Diagnosis Code(s): ?? --- Professional --- ? K59.00, Constipation, unspecified ? K63.5, Polyp of colon ? --- Technical --- ? K59.00, Constipation, unspecified ? K63.5, Polyp of colon CPT copyright 2019 [employer]. All rights reserved. The codes documented in this report are preliminary and upon airport representative review may be revised to meet current compliance requirements. Attending Participation: ? I personally performed the entire procedure. ? Nimesh Alicia, 08/01/2021 11:11:02 AM Number of Addenda: 0 Note Initiated On: 08/01/2021 9:51 AM PROVATION 08/01/2021 9:51 AM EDT Steven Jeffries MD GENERAL SURGICAL ORD ERABLES [facility] * Lipid Panel (Reflex Direct LDL) (02/07/2020 7:29 AM EDT) Cholesterol, Total 186 mg/dL [facility] Comment: Lower Risk: <200 mg/dL Average Risk: 200-239 mg/dL Higher Risk: >zg=168 mg/dL Triglyceride 161 mg/dL [facility] Comment: Average Risk/Lower Risk: <150 mg/dL Borderline High Risk: 150-199 mg/dL High Risk: 200-499 mg/dL Very High Risk: >uz=840 mg/dL HDL Cholesterol 34 mg/dL [facility] Comment: Males: ?? Higher Risk: <40 mg/dL Females: ?? HIgher Risk: <50 mg/dL LDL Cholesterol 120 mg/dL [facility] Comment: Lowest Risk: <100 mg/dL Lower Risk: 100-129 mg/dL Borderline High Risk: 130-159 mg/dL High Risk: 160-189 mg/dL Very High Risk: >ka=059 mg/dL Cholesterol/HDL Ratio 5.5 ratio [facility] Lipid Interpretation See Note [facility] Comment: Lipid management should be guided by a patient? s ASCVD risk, goals and preferences. ACC/AHA Guidelines recommend high intensity statin if clinical ASCVD or LDL greater than or equal to 190 mg/dL. http://[email or web address]/TBS-RPF-Ztnpuxcmy Adults aged 40-75 with LDL 70-189 mg/dL should have their 10 year ASCVD risk estimated with the ACC/AHA ASCVD risk bobbin fixer http://tools.acc.org/TZCKV-Iele-Nztacyzzn/ Statin should be discussed if risk greater [...] Vik Justin MD CHEMISTRY ORDER TOBI KERON [facility] [address] from Last 3 Months or Most Recently [...] Status decision made by: Patient Care Teams Adult School Counselor Relationship Specialty Start Date End Date Kaylee Jaquez PA [address] [place] [address] PCP - General Family Medicine 01/18/22
--- OUTSIDE RECORDS SUMMARY | 2024-06-25 11:03 | XMS_ITS | Encounter Summary ---
[facility] Organization [place] [address] Care Team Providers Care Pediatric Acute Care Unit Nurse Name Role Phone Kaylee Jaquez Primary Care Provider [phone] Encounter Details Date Type Department Care Team [...] PM EDT Office Visit Neurosurgery at [address] [place] [address] Mary Hart MD [address] [place] [address] Irena Pierre PA [address] [place] [address] documented as of this encounter Visit Diagnoses Not on filedocumented in this encounter Care Teams Pediatric Acute Care Unit Nurse Relationship Specialty Start Date End Date Kaylee Jaquez PA [address] [place] [address] PCP - General Family Medicine 01/18/22 documented as of this encounter
--- OUTSIDE RECORDS SUMMARY | 2024-06-25 11:03 | XMS_ITS | Encounter Summary ---
Author Organization [facility] [place] [address] Care Team Providers Care Pipe Line Walker Name Role Phone Kaylee Jaquez Primary Care Provider Encounter Details Date Type Department Care Team (Late st Contact Info) Description 09/05/2023 2:30 PM EDT Ancillary Procedure Radiology Library at [facility] [place] [address] Unknown None Social History Tobacco Use Types [...] Neurosurgery at Kristine Marie [address] [place] [address] Mary Hart MD [address] [place] [address] Irena Pierre PA [address] [place] [address] documented as of this encounter Procedures Procedure Name Priority Date/Time Associated Diagnosis Comments FILM LIBRARY STORAGE ONLY DX WRIST Routine 09/05/2023 2:30 PM EDT documented in this encounter Results * Film Library- Storage Only DX Wrist (09/05/2023 2:30 PM EDT) 10/28/2023 4:11 PM EDT Narrative [facility] 10/28/2023 4:11 PM EDT This exam is auto-finalizing. It's purpose is for storage only. Unknown IMG FILM LIBRARY ORD ERABLES [place], [place] documented in this encounter Visit Diagnoses Not on filedocumented in this encounter Care Teams Pipe Line Walker Relationship Specialty Start Date End Date Kaylee Jaquez PA [address] [place] [address] PCP - General Family Medicine 01/18/22 documented as of this encounter
--- OUTSIDE RECORDS SUMMARY | 2024-06-25 11:03 | XMS_ITS | Encounter Summary ---
Author Organization [facility] [address] Care Team Providers Care Deputy Building Guard Name Role Phone Kaylee Jaquez Primary Care Provider [phone] Reason for Visit * Reason Comments Medication Refill Encounter Details Date Type Department Care Team (Late st Contact Info) Description 07/30/2023 [place] [address] Chiquis Chen MD [facility] [place] [address] Social History Tobacco Use Types Packs/Day Years [...] 1:15 PM EDT [facility] [address] [place] [address] Mary Hart MD [address] [place] [address] Irena Pierre PA [address] [address] documented as of this encounter Visit Diagnoses Not on filedocumented in this encounter Care Teams Deputy Building Guard Relationship Specialty Start Date End Date Kaylee Jaquez PA [address] [place] [address] PCP - General Family Medicine 01/18/22 documented as of this encounter
--- OUTSIDE RECORDS SUMMARY | 2024-06-25 11:03 | XMS_ITS | Encounter Summary ---
Author Organization [facility] [place] [address] Care Team Providers Care Child Care Director Name Role Phone Kaylee Jaquez Primary Care Provider [phone] Encounter Details Date Type Department Care Team (Late st Contact Info) Description 05/26/2024 Interpretation Only Radiology Library at [facility] [place] [address] Kaylee Jaquez PA [address] [place], [place] [id number] Social History Tobacco Use Types Packs/Day Years [...] PM EDT Office Visit Neurosurgery at [address] [place] [address] Mary Hart MD [address] [place], [place] [phone] Irena Pierre PA 10 [place] [address] documented as of this encounter Procedures Procedure Name Priority Date/Time Associated Diagnosis Comments FILM LIBRARY STORAGE ONLY MR SPINE Routine 05/26/2024 8:35 AM EST documented in this encounter Results * Film Library- Storage Only MR Spine (05/26/2024 8:35 AM EST) 05/26/2024 3:42 PM EST Narrative [facility] - 05/26/2024 3:42 PM EST This exam is auto-finalizing. It's purpose is for storage only. Kaylee ALMEIDA IMG FILM LIBRARY ORD ERABLES Performing Organization Address City/State/[facility] Co de Phone Number [place], [place] documented in this encounter Visit Diagnoses Not on filedocumented in this encounter Care Teams Child Care Director Relationship Specialty Start Date End Date Kaylee Jaquez PA [address] [place] [address] PCP - General Family Medicine 01/18/22 documented as of this encounter
--- OUTSIDE RECORDS SUMMARY | 2024-06-25 11:03 | XMS_ITS | Encounter Summary ---
Author Organization [facility] [place] [address] Care Team Providers Care Brim Curler Name Role Phone Kaylee Jaquez Primary Care Provider [phone] Encounter Details Date Type Department Care Team [...] PM EDT Office Visit Neurosurgery at 10 [place] [address] Mary Hart MD 10 [place] [address] Irena Pierre PA 10 [place] [address] documented as of this encounter Visit Diagnoses Not on filedocumented in this encounter Care Teams Brim Curler Relationship Specialty Start Date End Date Kaylee Jaquez PA [address] [place] [address] PCP - General Family Medicine 01/18/22 documented as of this encounter
--- OUTSIDE RECORDS SUMMARY | 2024-06-25 11:03 | XMS_ITS | Encounter Summary ---
Author Organization [facility] [place] [address] Care Team Providers Care Dairy Worker Name Role Phone Kaylee Jaquez Primary Care Provider Reason for Visit * Reason Comments Medication Refill Encounter Details Date Type Department Care Team (Late st Contact Info) Description 11/07/2023 Refill Cardiology at [address] [address] Lc Garcia MD [facility] [place] [address] Medication Refill Social History Tobacco Use Types [...] INJECTOR ROUTE EVERY 30 DAYS Annette Houser sales force developer Clinic at [facility] [address] documented in this encounter Plan of Treatment Upcoming Encounters Date Type Department Care Team (Late st Contact Info) Description 07/20/2024 1:15 PM EDT Office Visit Neurosurgery at [facility] 10 [place] [address] Mary Hart MD [address] [place] [address] Irena Pierre PA 10 [facility] [place] [address] documented as of this encounter Visit Diagnoses Diagnosis Hyperlipidemia, unspecified hyperlipidemia type documented in this encounter Care Teams Dairy Worker Relationship Specialty Start Date End Date Kaylee Jaquez PA [address] [place] [address] PCP - General Family Medicine 01/18/22 documented as of this encounter
--- OUTSIDE RECORDS SUMMARY | 2024-06-25 11:03 | XMS_ITS | Encounter Summary ---
[place] [address] Care Team Providers Care Lumber Hacker Name Role Phone Kaylee Jaquez Primary Care Provider Encounter Details Date Type Department Care Team (Late st Contact Info) Description 08/25/2023 Telephone [place] [address] China boycehector Social History Tobacco Use Types Packs/Day [...] - 08/25/2023 8:28 AM EDT Danielle Mills [id number] Diagnosis/Indication: barretts Please review patient chart to [...] your procedure. Who will likely be your straddle bug driver for the procedure? *Please Verify the [...] PM EDT Office Visit Neurosurgery at 10 [place] [address] Mary Hart MD 10 [place] [address] Irena Pierre PA [address] [address] documented as of this encounter Visit Diagnoses Not on filedocumented in this encounter Care Teams Lumber Hacker Relationship Specialty Start Date End Date Kaylee Jaquez PA [address] [place] [address] PCP - General Family Medicine 01/18/22 documented as of this encounter
--- OUTSIDE RECORDS SUMMARY | 2024-06-25 11:03 | XMS_ITS | Encounter Summary ---
Author Organization [facility] [place] [address] Care Team Providers Care Speech And Hearing Clinic Director Name Role Phone Kaylee Jaquez Primary [...] PM EDT Office Visit Neurosurgery at 10 [place] [address] Mary Hart MD 10 [place] [address] Irena Pierre PA [address] [place] [address] documented as of this encounter Visit Diagnoses Not on filedocumented in this encounter Care Teams Speech And Hearing Clinic Director Relationship Specialty Start Date End Date Kaylee Jaquez PA [address] [place] [address] PCP - General Family Medicine 01/18/22 documented as of this encounter
--- OUTSIDE RECORDS SUMMARY | 2024-06-25 11:03 | XMS_ITS | Encounter Summary ---
[place] [address] Care Team Providers Care Memorandum Statement Clerk Name Role Phone Kaylee Jaquez Primary Care Provider [phone] Encounter Details Date Type Department Care Team (Late st Contact Info) Description 02/12/2024 Telephone Cardiology at [address] [phone] Annette Houser, RN Social History Tobacco Use [...] RN Cardiology Clinic [facility] Ed Team Nurse [phone] documented in this encounter Plan of Treatment Upcoming Encounters Date Type Department Care Team (Late st Contact Info) Description 07/20/2024 1:15 PM EDT Office Visit Neurosurgery at [facility] 10 [place] [address] Mary Hart MD [address] [facility] [place] [address] Irena Pierre PA 10 [facility] [place] [address] documented as of this encounter Visit Diagnoses Not on filedocumented in this encounter Care Teams Memorandum Statement Clerk Relationship Specialty Start Date End Date Kaylee Jaquez PA [address] [place] [address] PCP - General Family Medicine 01/18/22 documented as of this encounter
--- OUTSIDE RECORDS SUMMARY | 2024-06-25 11:03 | XMS_ITS | Encounter Summary ---
Author Organization [facility] [place] [address] Care Team Providers Care Head Sampler Name Role Phone Kaylee Jaquez Primary [...] PM EDT Office Visit Neurosurgery at 10 [place] [address] Mary Hart MD 10 [place] [address] Irena Pierre PA 10 [place] [address] documented as of this encounter Visit Diagnoses Not on filedocumented in this encounter Care Teams Head Sampler Relationship Specialty Start Date End Date Kaylee Jaquez PA [address] [place] [address] PCP - General Family Medicine 01/18/22 documented as of this encounter
--- OUTSIDE RECORDS SUMMARY | 2024-06-25 11:04 | XMS_ITS | Encounter Summary ---
[place] [address] Care Team Providers Care Aix System Administrator Name Role Phone Kaylee Jaquez Primary Care Provider [phone] Encounter Details Date Type Department Care Team (Late st Contact Info) Description 07/02/2023 Telephone [place] [address] Jennifer Barber Social History Tobacco Use Types [...] PM EDT Office Visit Neurosurgery at 10 [place] [address] Mary Hart MD 10 [place] [address] Irena Pierre PA 10 [place] [address] documented as of this encounter Visit Diagnoses Not on filedocumented in this encounter Care Teams Aix System Administrator Relationship Specialty Start Date End Date Kaylee Jaquez PA [address] [place] [address] PCP - General Family Medicine 01/18/22 documented as of this encounter
--- OUTSIDE RECORDS SUMMARY | 2024-06-25 11:04 | XMS_ITS | Encounter Summary ---
Author Organization [facility] [address] Care Team Providers Care Transplant Case Manager Name Role Phone Kaylee Jaquez Primary [...] PM EDT Office Visit Neurosurgery at 10 [place] [address] Mary Hart MD 10 [place] [address] Irena Pierre PA [address] [place] [address] documented as of this encounter Visit Diagnoses Not on filedocumented in this encounter Care Teams Transplant Case Manager Relationship Specialty Start Date End Date Kaylee Jaquez PA [address] [place] [address] PCP - General Family Medicine 01/18/22 documented as of this encounter
--- OUTSIDE RECORDS SUMMARY | 2024-06-25 11:04 | XMS_ITS | Encounter Summary ---
Author Organization [facility] [place] [address] Care Team Providers Care Tongue Carrier Name Role Phone Kaylee Jaquez Primary Care Provider Encounter Details Date Type Department Care Team (Latest Contact Info) Description 04/21/2023 9:49 PM EST - 04/21/2023 11:59 PM [facility] Hospital [place] [address] Discharge Disposition: Home Social History Tobacco Use [...] PM EDT Office Visit Neurosurgery at 10 [place] [address] Mary Hart MD 10 [place] [address] Irena Pierre PA 10 [place] [address] documented as of this encounter Procedures Procedure Name Priority Date/Time Associated Diagnosis Comments SURGICAL PATHOLOGY REPORT Routine 04/21/2023 2:24 PM EST documented in this encounter Results * Surgical Pathology Report (04/21/2023 2:24 PM EST) Final Diagnosis [id number] ? Location: [facility] The signing pathologist has (i) examined the relevant preparation(s) for the specimen(s) and (ii) rendered or confirmed the diagnosis(es). . ?Surgical Pathology DIAGNOSIS Right foot toenail, clippings: - PAS staining positive for fungal hyphae present in nail plate ? (see discussion) Electronically signed by: ?Radha ABDUL, Steven Lindo Verified: ??04/24/2023 16:23 ??Dermatopathol ogist Performed at: ??-[facility] Dept. of Pathology, [place] [address] Database Reporting Consultant: Cleopatra Merrill MD, AP, ??CLIA Certificate: [id number] DISCUSSION The hyphae have a distorted apperance, which could reflect processing artifact or partial treatment. Staining also reveals background coccoid bacteria that appear distinct from the fungi. SPECIMEN(S) SUBMITTED A - toenail clipping right foot Referring Identifier: ??[id number] CLINICAL INFORMATION Thick discolored nails SPECIMEN PROCESSING A - Labeled/Fixativ e: Patient demographics, fresh. Quantity/Size: ??Two, 0.5 and 0.7 cm. Tissue Description: Chalky, yellow-wright nail clippings. Sections/Proces sing: Submitted in toto ??in 1 cassette labeled A1. ??sns 04/24/2023 4:23 PM EST [facility] NAIL SPECIMEN / Unknown 04/21/2023 2:24 PM EST 04/21/2023 2:24 PM EST Narrative Resulting Agency Comment Spec In Lab / [facility] Juanita Khan [facility]FFEE ROASTER PATHOLOGY/CYTOLOGY O RDERABLES [facility] [place] [address] [facility] [place] [address] documented in this encounter Visit Diagnoses Not on filedocumented in this encounter Care Teams Tongue Carrier Relationship Specialty Start Date End Date Kaylee Jaquez PA [address] [place] [address] PCP - General Family Medicine 01/18/22 documented as of this encounter
--- OUTSIDE RECORDS SUMMARY | 2024-06-25 11:04 | XMS_ITS | Encounter Summary ---
Author Organization [facility] [place] [address] Care Team Providers Care Vitreo Retinal Surgeon Name Role Phone Kaylee Jaquez Primary Care Provider [phone] Encounter Details Date Type Department Care Team [...] PM EDT Office Visit Neurosurgery at 10 [place] [address] Mary Hart MD 10 [place] [address] Irena Pierre PA 10 [place] [address] documented as of this encounter Visit Diagnoses Not on filedocumented in this encounter Care Teams Vitreo Retinal Surgeon Relationship Specialty Start Date End Date Kaylee Jaquez PA [address] [place] [address] PCP - General Family Medicine 01/18/22 documented as of this encounter
--- OUTSIDE RECORDS SUMMARY | 2024-06-25 11:04 | XMS_ITS | Encounter Summary ---
Author Organization [facility] [place] [address] Care Team Providers Care Peripheral Vascular Tech Name Role Phone Kaylee Jaquez Primary Care Provider [phone] Encounter Details Date Type Department Care Team [...] PM EDT Office Visit Neurosurgery at 10 [place] [address] Mary Hart MD 10 [place] [address] Irena Pierre PA 10 [place] [address] documented as of this encounter Visit Diagnoses Not on filedocumented in this encounter Care Teams Peripheral Vascular Tech Relationship Specialty Start Date End Date Kaylee Jaquez PA [address] [place] [address] PCP - General Family Medicine 01/18/22 documented as of this encounter
--- OUTSIDE RECORDS SUMMARY | 2024-06-25 11:04 | XMS_ITS | Encounter Summary ---
[place] [address] Care Team Providers Care Crankshaft Grinder Name Role Phone Kaylee Jaquez Primary Care Provider [phone] Encounter Details Date Type Department Care Team (Late Contact Info) Description 07/21/2023 12:00 PM EDT Ancillary Procedure XRay at [address] [address] Elvin Whiting MD [address] [place] [address] [place] [address] Pain in right hip Social History Tobacco [...] Encounters Date Type Department Care Team (Late Contact Info) Description 07/20/2024 1:15 PM EDT Office Visit Neurosurgery at [facility] [address] [place] [address] Mary Hart MD [address] [place] [address] Irena Pierre PA [address] [place] [address] documented as of this encounter Procedures Procedure [...] have questions please contact the health animal care attendant that requested your imaging first. ? Narrative [...] who have questions please contactthe health animal care attendant that requested your imaging first. Elvin Whiting MD IMG DX ORDERABLES documented in this encounter Visit Diagnoses Diagnosis Pain in right hip Pain in joint, pelvic region and thigh documented in this encounter Care Teams Crankshaft Grinder Relationship Specialty Start Date End Date Kaylee Jaquez PA [address] [place] [address] PCP - General Family Medicine 01/18/22 documented as of this encounter
--- OUTSIDE RECORDS SUMMARY | 2024-06-25 11:04 | XMS_ITS | Encounter Summary ---
Author Organization [facility] [place] [address] Care Team Providers Care Parks And Recreation Manager Name Role Phone Kaylee Jaquez Primary Care Provider Reason for Visit * Reason Comments Medication Refill Encounter Details Date Type Department Care Team (Late st Contact Info) Description 04/30/2023 [place] [address] Marta Rivera MD [facility] [place] [address] Social History Tobacco Use Types Packs/Day Years [...] EDT [facility] [address] [place] [address] Mary Hart MD [address] [place] [address] Irena Pierre PA [address] [place] [address] documented as of this encounter Visit Diagnoses Not on filedocumented in this encounter Care Teams Parks And Recreation Manager Relationship Specialty Start Date End Date Kaylee Jaquez PA [address] [address] PCP - General Family Medicine 01/18/22 documented as of this encounter
--- OUTSIDE RECORDS SUMMARY | 2024-06-25 11:04 | XMS_ITS | Encounter Summary ---
[place] [address] Care Team Providers Care Senior Pl Sql Developer Name Role Phone Kaylee Jaquez Primary Care Provider Encounter Details Date Type Department Care Team (Late st Contact Info) Description 01/22/2023 Telephone [facility] [place] [address] Charlee Porter RN Social History Tobacco Use [...] 1:15 PM EDT Office Visit Neurosurgery at [facility] 10 [place] [address] Mary Hart MD 10 [facility] [place] [address] Irena Pierre PA 10 [facility] [place] [address] documented as of this encounter Visit Diagnoses Not on filedocumented in this encounter Care Teams Senior Pl Sql Developer Relationship Specialty Start Date End Date Kaylee Jaquez PA [address] [address] PCP - General Family Medicine 01/18/22 documented as of this encounter
--- OUTSIDE RECORDS SUMMARY | 2024-06-25 11:04 | XMS_ITS | Encounter Summary ---
Author Organization [facility] [place] [address] Care Team Providers Care Slag Skimmer Name Role Phone Kaylee Jaquez Primary Care [...] PM EDT Office Visit Neurosurgery at 10 [place] [address] Mary Hart MD 10 [place] [address] Irena Pierre PA [address] [place] [address] documented as of this encounter Visit Diagnoses Not on filedocumented in this encounter Care Teams Slag Skimmer Relationship Specialty Start Date End Date Kaylee Jaquez PA [address] [place] [address] PCP - General Family Medicine 01/18/22 documented as of this encounter
--- OUTSIDE RECORDS SUMMARY | 2024-06-25 11:04 | XMS_ITS | Encounter Summary ---
Author Organization [facility] [place] [address] Care Team Providers Care Allergist/Pediatric Pulmonologist Name Role Phone Kaylee Jaquez Primary Care Provider [phone] Encounter Details Date Type Department Care Team (Late st Contact Info) Description 12/25/2022 Ancillary Procedure Radiology Library at [facility] [place] [address] Kaylee Jaquez PA [address] [place], [place] [id number] Social History Tobacco Use Types Packs/Day Years [...] Office Visit Neurosurgery at [address] [place] [address] Mary Hart MD [address] [place], [place] [address] Irena Pierre PA [address] [place] [address] documented as of this encounter Procedures Procedure Name Priority Date/Time Associated Diagnosis Comments FILM LIBRARY STORAGE ONLY MR SPINE Routine 12/25/2022 12:00 AM EDT documented in this encounter Results * Film Library- Storage Only MR Spine (12/25/2022 12:00 AM EDT) Narrative [facility] - 12/27/2022 8:59 AM EDT This exam is auto-finalizing. It's purpose is for storage only. Kaylee ALMEIDA IMG FILM LIBRARY ORD ERABLES [place], [place] documented in this encounter Visit Diagnoses Not on filedocumented in this encounter Care Teams Allergist/Pediatric Pulmonologist Relationship Specialty Start Date End Date Kaylee Jaquez PA [address] [place] [address] PCP - General Family Medicine 01/18/22 documented as of this encounter
--- OUTSIDE RECORDS SUMMARY | 2024-06-25 11:04 | XMS_ITS | Encounter Summary ---
[place] [address] Care Team Providers Care Patternmaker Name Role Phone Kaylee Jaquez Primary Care Provider Encounter Details Date Type Department Care Team (Late st Contact Info) Description 06/02/2023 Telephone [place] [phone] Jennifer Barber Social History Tobacco Use Types [...] Visit Neurosurgery at [facility] 10 [facility] [place] [address] Mary Hart MD [address] [place] [address] Irena Pierre PA [address] [place] [address] documented as of this encounter Visit Diagnoses Not on filedocumented in this encounter Care Teams Patternmaker Relationship Specialty Start Date End Date Kaylee Jaquez PA [address] [place] [address] PCP - General Family Medicine 01/18/22 documented as of this encounter
--- OUTSIDE RECORDS SUMMARY | 2024-06-25 11:04 | XMS_ITS | Encounter Summary ---
Author Organization [facility] [place] [address] Care Team Providers Care Learning Technologist Name Role Phone Kaylee Jaquez Primary Care Provider [phone] Encounter Details Date Type Department Care Team [...] PM EDT Office Visit Neurosurgery at 10 [place] [address] Mary Hart MD 10 [place] [address] Irena Pierre PA 10 [place] [address] documented as of this encounter Visit Diagnoses Not on filedocumented in this encounter Care Teams Learning Technologist Relationship Specialty Start Date End Date Kaylee Jaquez PA [address] [place] [address] PCP - General Family Medicine 01/18/22 documented as of this encounter
--- OUTSIDE RECORDS SUMMARY | 2024-06-25 11:04 | XMS_ITS | Encounter Summary ---
Author Organization [facility] [place] [address] Care Team Providers Care Cattle Trader Name Role Phone Kaylee Jaquez Primary Care Provider Reason for Visit * Reason Comments Follow-up Left sided foot and buttock pain * Consultation (Routine) - Closed Specialty Diagnoses / Procedures Referred By Contac t Referred To Contact Pain and Spine Center Diagnoses Other specified dorsopathies, site unspecified Kaylee Jaquez PA [address] [place] [address] Maxime Cadena MD [facility] [place] [address] Referral ID Status Reason Start Date Expiration Date V isits Requested Visits Authorized [id number] Closed Consult, Test & Treat PCP Updated and/or Approved 11/22/2022 11/22/2023 1 1 Encounter Details Date Type Department Care Team (Latest Contact Info) Description 12/09/2022 9:15 AM EDT Office Visit [facility] [place] [phone] Kayli Rader APRN [facility] [place] [address] Left lumbar radiculopathy Social History [...] documented in this encounter Progress Notes * Prasanth Kayli Pauline, IT INFRASTRUCTURE ARCHITECT - 12/09/2022 9:15 AM EDT [facility] Medical Decision Making: Danielle Mlils is a 62 y.o. female seen today [...] she spent quite some time vacuuming her xeqbap-ja-sbo's rug and on occasion, the vacuum would [...] experience with Higinio Mcdaniel PT in the [facility] area who predominantly performs manual physical [...] ref. provider found Kayli Rader APRN 12/09/2022 [facility] documented in this encounter Plan of Treatment Upcoming Encounters Date Type Department Care Team (Late st Contact Info) Description 07/20/2024 1:15 PM EDT Office Visit Neurosurgery at [facility] [address] [place] [address] Mary Hart MD 10 [facility] [place] [address] Irena Pierre PA 10 [facility] [place] [address] documented as of this encounter Visit Diagnoses Diagnosis Left lumbar radiculopathy Thoracic or lumbosacral neuritis or radiculitis, unspecified documented in this encounter Care Teams Cattle Trader Relationship Specialty Start Date End Date Kaylee Jaquez PA [address] [place] [address] PCP - General Family Medicine 01/18/22 documented as of this encounter
--- OUTSIDE RECORDS SUMMARY | 2024-06-25 11:04 | XMS_ITS | Encounter Summary ---
[facility] [place] [address] Care Team Providers Care Squeegee Finisher Name Role Phone Kaylee Jaquez Primary Care Provider Reason for Visit * Reason Onset Date Comments Medication Refill 07/07/2023 Encounter Details Date Type Department Care Team (Late st Contact Info) Description 07/07/2023 Refill [place] [address] Nimesh Alicia MD [facility] [place] [address] Social History Tobacco Use Types Packs/Day Years [...] Office Visit Neurosurgery at [facility] 10 [facility] [place] [address] Mary Hart [place] [address] Irena Pierre [place] [address] documented as of this encounter Visit Diagnoses Not on filedocumented in this encounter Care Teams Squeegee Finisher Relationship Specialty Start Date End Date Kaylee Jaquez PA [address] [place] [address] PCP - General Family Medicine 01/18/22 documented as of this encounter
--- OUTSIDE RECORDS SUMMARY | 2024-06-25 11:04 | XMS_ITS | Encounter Summary ---
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 Kaylee Jaquez PA [address] [place] [address] [facility] Endoscopy [address] [place] [address] Referral ID Status Reason Start Date Expiration Date V isits Requested Visits Authorized [id number] Closed Consult, Test & Treat PCP Updated and/or Approved 05/22/2023 05/21/2024 6 6 Encounter Details Date Type Department Care Team (Latest Contact Info) Description 05/22/2023 Transcribe Orders eDH Incoming Referrals [phone] Kaylee Jaquez PA [address] [place], [place] [phone] 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 Social History Tobacco [...] 1:15 PM EDT Office Visit Neurosurgery at [facility] [address] [place] [address] Mary Hart MD [address] [facility] [place] [address] Irena Pierre PA [address] [place] [address] Scheduled Referrals Name Type Priority Associated Diagnoses Order Schedule Referral to Gastroenterology Outpatient Referral Routine 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
--- OUTSIDE RECORDS SUMMARY | 2024-06-25 11:04 | XMS_ITS | Encounter Summary ---
Author Organization [facility] [address] Care Team Providers Care Ethnoarchaeologist Name Role Phone Kaylee Jaquez Primary Care Provider Reason for Referral * Diagnostic Test (Routine) - Closed Specialty Diagnoses / Procedures Referred By Contmacie t Referred To Contact Gastroenterology Diagnoses Constipation, unspecified constipation type ARM for constipation Procedures High Definition Anal Manometry Nimesh Alicia MD [facility] [place] [address] [facility] [place]astro [address] [place] [address] Referral ID Status Reason Start Date Expiration Date V isits Requested Visits Authorized [id number] Closed Consult, Test & Treat 07/14/2023 07/13/2024 1 1 Encounter Details Date Type Department Care Team (Late st Contact Info) Description 07/14/2023 Orders [place] [address] Niemsh Alicia MD [facility] [place] [address] Constipation, unspecified constipation type Social History Tobacco [...] 1:15 PM EDT Office Visit Neurosurgery at [facility] 10 [place] [address] Mary Hart MD 10 [facility] [place] [address] Irena Pierre PA [facility] [place] [address] Scheduled Orders Name Type Priority Associated Diagnoses Orde r Schedule High Definition Anal Manometry GI Routine Constipation, unspecified constipation type Expected: 07/14/2023 (Approximate), Expires: 01/13/2024 documented as of this encounter Visit Diagnoses Diagnosis Constipation, unspecified constipation type documented in this encounter Care Teams Ethnoarchaeologist Relationship Specialty Start Date End Date Kaylee Jaquez PA [address] [place] [address] PCP - General Family Medicine 01/18/22 documented as of this encounter
--- OUTSIDE RECORDS SUMMARY | 2024-06-25 11:04 | XMS_ITS | Encounter Summary ---
[place] [address] Care Team Providers Care Parts Processor Name Role Phone Kaylee Jaquez Primary [...] or Sacral Epidural Steroid Inj Sacral (Caudal) (10307) Alvarez Monteiro MD [facility] Referral ID Status Reason Start Date Expiration Date Visits Re quested Visits Authorized [id number] 1 1 Encounter Details Date Type Department Care Team (Late st Contact Info) Description 01/23/2023 11:00 AM EDT Ancillary [place] [address] Alvarez Monteiro MD Social History Tobacco Use Types Packs/Day [...] PM EDT Office Visit Neurosurgery at 10 [place] [address] Mary Hart MD 10 [place] [address] Irena Pierre PA [facility] [place] [address] documented as of this encounter Procedures Procedure Name Priority Date/Time Associated Diagnosis Comments FILM LIBRARY STORAGE ONLY PAIN CLINIC C ARM Routine 01/23/2023 1:06 PM EDT documented in this encounter Results * Film Library- Storage Only pain Clinic C-Arm (01/23/2023 1:06 PM EDT) Narrative [facility] - 01/23/2023 1:06 PM EDT See PACS for result report. Alvarez Monteiro MD IMG FILM LIBRARY ORD ERABLES Performing Organization Address City/State/[facility] Co de Phone Number [place], [place] documented in this encounter Visit Diagnoses Not on filedocumented in this encounter Care Teams Parts Processor Relationship Specialty Start Date End Date Kaylee Jaquez PA [address] [place] [address] PCP - General Family Medicine 01/18/22 documented as of this encounter
--- OUTSIDE RECORDS SUMMARY | 2024-06-25 11:04 | XMS_ITS | Encounter Summary ---
Author Organization [facility] [place] [address] Care Team Providers Care Rounding And Backing Machine Operator Name Role Phone Kaylee Jaquez [...] PM EDT Office Visit Neurosurgery at 10 [place] [address] Mary Hart MD 10 [place] [address] Irena Pierre PA 10 [place] [address] documented as of this encounter Visit Diagnoses Not on filedocumented in this encounter Care Teams Rounding And Backing Machine Operator Relationship Specialty Start Date End Date Kaylee Jaquez PA [address] [place] [address] PCP - General Family Medicine 01/18/22 documented as of this encounter
--- OUTSIDE RECORDS SUMMARY | 2024-06-25 11:04 | XMS_ITS | Encounter Summary ---
[place] [address] Care Team Providers Care Cigar Machine Feeder Name Role Phone Kaylee Jaquez Primary Care Provider Reason for Referral * Diagnostic Test (Routine) - Closed Specialty Diagnoses / Procedures Referred By Contac t Referred To Contact Radiology Diagnoses Chest pain, unspecified type ASCVD (arteriosclerotic cardiovascular disease) Procedures NM Exercise Stress and Rest Myocardial Perfusion Lc Garcia MD [facility] [place] [address] [place] [address] Referral ID Status Reason Start Date Expiration Date V isits Requested Visits Authorized [id number] Closed Specialty Service Requested 05/30/2023 11/28/2024 1 1 Reason for Visit * Diagnostic Test (Routine) - Closed Specialty Diagnoses / Procedures Referred By Contac t Referred To Contact Radiology Diagnoses Chest pain, unspecified type ASCVD (arteriosclerotic cardiovascular disease) Procedures NM Exercise Stress and Rest Myocardial Perfusion Lc Garcia MD [facility] [place] [address] [place] [address] Referral ID Status Reason Start Date Expiration Date V isits Requested Visits Authorized [id number] Closed Specialty Service Requested 05/30/2023 11/28/2024 1 1 Encounter Details Date Type Department Care Team (Latest Contact Info) Description 06/12/2023 8:59 AM EST Hospital Encounter Nuclear Medicine at [facility] [place] [address] Lc Garcia MD [facility] [place] [address] Chest pain, unspecified type; ASCVD (arteriosclerotic cardiovascular [...] Office Visit Neurosurgery at Kristine Monsalve [address] [place] [address] Mary [place] [address] [place] [address] documented as of this encounter Procedures Procedure [...] who have questions please contact the health summer child caregiver that requested your imaging first. ? Electronically signed by: Neto Hinson MD, [facility] ([phone]), at 06/12/2023 2:58 PM Narrative 06/12/2023 2:58 PM EST EXAMINATION: NM PHARMACOLOGIC STRESS AND REST MYOCARDIAL PERFUSION CLINICAL HISTORY: Chest pain/anginal equiv, 10yr CHD risk > 20%, EST candidate R07.9, Chest pain, unspecified - I25.10, Atherosclerotic heart disease of [place] coronary artery without angina pectoris TECHNIQUE: During [...] patients who have questions please contactthe health summer child caregiver that requested your imaging first. Electronically signed by: Neto Hinson MD, [facility]([phone]), at 06/12/2023 2:58 PM Lc Garcia MD IMG [place] ORDERABLES documented [...] Arm documented in this encounter Care Teams Cigar Machine Feeder Relationship Specialty Start Date End Date Kaylee Jaquez PA [address] [place] [address] PCP - General Family Medicine 01/18/22 documented as of this encounter
--- OUTSIDE RECORDS SUMMARY | 2024-06-25 11:04 | XMS_ITS | Encounter Summary ---
[place] [address] Care Team Providers Care Elementary Educator Name Role Phone Kaylee Jaquez Primary Care Provider [phone] Encounter Details Date Type Department Care Team (Late st Contact Info) Description 11/22/2022 Telephone [place] [address] Shahida Richard LPN Social History Tobacco Use [...] Visit Neurosurgery at [facility] [address] [place] [address] Mary Hart MD 10 [facility] [place] [address] Irena Pierre PA 10 [facility] [place] [address] documented as of this encounter Visit Diagnoses Not on filedocumented in this encounter Care Teams Elementary Educator Relationship Specialty Start Date End Date Kaylee Jaquez PA [address] [address] PCP - General Family Medicine 01/18/22 documented as of this encounter
--- OUTSIDE RECORDS SUMMARY | 2024-06-25 11:04 | XMS_ITS | Encounter Summary ---
[place] [address] Care Team Providers Care Broach Setter Name Role Phone Kaylee Jaquez Primary Care Provider Encounter Details Date Type Department Care Team (Latest Contact Info) Description 01/03/2023 10:00 AM EDT Office Visit [place] [address] Kayli Rader APRN [facility] [place] [address] Left lumbar radiculopathy Social History Tobacco Use [...] team at . Please call the office [phone] and ask to speak with a nurse if any of the following occurs within 14 days prior to your injection/procedure: [x]You have begun taking steroids or antibiotics [x]You have had any changes in your health status or medications [x]You have started taking a blood thinner documented in this encounter Progress Notes * Kayli Rader APRN - 01/03/2023 10:00 AM EDT [facility] Medical Decision Making: [...] or Sacral Epidural Steroid Inj Sacral (Caudal) (93487) Plan Left L4-5 MARINE Follow-up with me [...] [place] Referring Provider: Kaylee Rader APRN 01/03/2023 [facility] for [facility] Spine documented in this encounter Plan of Treatment Upcoming Encounters Date Type Department Care Team (Late st Contact Info) Description 07/20/2024 1:15 PM EDT Office Visit Neurosurgery at [facility] 10 [place] [address] Mary Hart MD [address] [facility] [place] [address] Irena Pierre PA 10 [facility] [address] documented as of this encounter Visit Diagnoses Diagnosis Left lumbar radiculopathy Thoracic or lumbosacral neuritis or radiculitis, unspecified documented in this encounter Care Teams Broach Setter Relationship Specialty Start Date End Date Kaylee Jaquez PA [address] [address] PCP - General Family Medicine 01/18/22 documented as of this encounter"
--- OUTSIDE RECORDS SUMMARY | 2024-06-25 11:04 | XMS_ITS | Encounter Summary ---
Author Organization [facility] [place] [address] Care Team Providers Care Body Wirer Name Role Phone Kaylee Jaquez Primary Care Provider [phone] Encounter Details Date Type Department Care Team [...] PM EDT Office Visit Neurosurgery at 10 [place] [address] Mary Hart MD 10 [place] [address] Irena Pierre PA [address] [place] [address] documented as of this encounter Visit Diagnoses Not on filedocumented in this encounter Care Teams Body Wirer Relationship Specialty Start Date End Date Kaylee Jaquez PA [address] [place] [address] PCP - General Family Medicine 01/18/22 documented as of this encounter
--- OUTSIDE RECORDS SUMMARY | 2024-06-25 11:04 | XMS_ITS | Encounter Summary ---
Author Organization [facility] [place] [address] Care Team Providers Care Ear Machine Operator Name Role Phone Kaylee Jaquez Primary Care Provider [phone] Reason for Visit * Diagnostic Test (Routine) - Canceled Specialty Diagnoses / Procedures Referred By Jasson mendoza Referred To Contact Cardiology Diagnoses Chest pain, unspecified type ASCVD (arteriosclerotic cardiovascular disease) Procedures Nuclear Exercise Stress Cardiology Lc Garcia MD [facility] [place] [address] [facility] [place] [address] Referral ID Status Reason Start Date Expiration Date Visits Requested Visits Authorized [id number] Canceled Specialty Service Requested 05/30/2023 05/29/2024 1 1 Encounter Details Date Type Department Care Team (Latest Contact Info) Description 06/12/2023 8:59 AM EST Hospital Encounter Non[place] [address] Lc Garcia MD [facility] [place] [address] Chest pain, unspecified type; ASCVD [...] 1:15 PM EDT Office Visit Neurosurgery at [facility] 10 [place] [address] Mary Hart MD 10 [facility] [place] [address] Irena Pierre PA 10 [facility] [place] [address] documented as of this encounter Procedures Procedure [...] disease documented in this encounter Care Teams Ear Machine Operator Relationship Specialty Start Date End Date Kaylee Jaquez PA [address] [place] [address] PCP - General Family Medicine 01/18/22 documented as of this encounter
--- OUTSIDE RECORDS SUMMARY | 2024-06-25 11:04 | XMS_ITS | Encounter Summary ---
Author Organization [facility] [place] [address] Care Team Providers Care Chucker Name Role Phone Kaylee Jaquez Primary Care [...] PM EDT Office Visit Neurosurgery at 10 [place] [address] Mary Hart MD 10 [place] [address] Irena Pierre PA 10 [place] [address] documented as of this encounter Visit Diagnoses Not on filedocumented in this encounter Care Teams Chucker Relationship Specialty Start Date End Date Kaylee Jaquez PA [address] [place] [address] PCP - General Family Medicine 01/18/22 documented as of this encounter
--- OUTSIDE RECORDS SUMMARY | 2024-06-25 11:04 | XMS_ITS | Encounter Summary ---
Author Organization [facility] [place] [address] Care Team Providers Care Merchant Mariner Name Role Phone Kaylee Jaquez Primary Care Provider Reason for Visit * Reason Comments Right Hip Pain * Consultation (Routine) - Pending Review Specialty Diagnoses / Procedures Referred By Jasson mendoza Referred To Contact Orthopaedics Diagnoses Pain of right hip PT ALREADY HAS APPT SCHED , ATTACHED REFERRAL TO APPT Kaylee Jaquez PA [address] [place] [address] Elvin Whiting MD [address] [place] [address] Referral ID Status Reason Start Date Expiration Date Visits Requested Visits Authorized [id number] Pending Review Consult, Test & Treat PCP Updated and/or Approved 06/26/2023 06/25/2024 6 6 Encounter Details Date Type Department Care Team (Late st Contact Info) Description 07/21/2023 12:30 PM EDT Office Visit Orthopaedics at [address] [address] Elvin Whiting MD [address] [place] [address] Pain in right hip Social History Tobacco [...] 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 Carpal tunnel syndrome G56.00 Cystocele [id number] Depression, anxiety, insomnia, PTSD F32.A Edema R60.9 [...] and rotation IMAGING: X-Rays taken today at [facility] were reviewed with the patient [...] from quite the distance traveling from near [place] and [place] and we will have to make sure [...] 1:15 PM EDT Office Visit Neurosurgery at [facility] 10 [place] [address] Mary Hart MD [address] [place] [address] Irena Pierre PA [address] [place] [place] [address] documented as of this encounter Visit Diagnoses Diagnosis Pain in right hip Pain in joint, pelvic region and thigh documented in this encounter Care Teams Merchant Mariner Relationship Specialty Start Date End Date Kaylee Jaquez PA [address] [place] [address] PCP - General Family Medicine 01/18/22 documented as of this encounter
--- OUTSIDE RECORDS SUMMARY | 2024-06-25 11:04 | XMS_ITS | Encounter Summary ---
[place] [address] Care Team Providers Care Senior Application Programmer Name Role Phone Kaylee Jaquez Primary Care Provider Reason for Referral * Diagnostic Test (Routine) - Closed Specialty Diagnoses / Procedures Referred By Contac t Referred To Contact Radiology Diagnoses Chest pain, unspecified type ASCVD (arteriosclerotic cardiovascular disease) Procedures NM Exercise Stress and Rest Myocardial Perfusion Lc Garcia MD [facility] [place] [address] [place] [address] Referral ID Status Reason Start Date Expiration Date V isits Requested Visits Authorized [id number] Closed Specialty Service Requested 05/30/2023 11/28/2024 1 1 * Diagnostic Test (Routine) - Closed Specialty Diagnoses / Procedures Referred By Contac t Referred To Contact Radiology Diagnoses Chest pain, unspecified type ASCVD (arteriosclerotic cardiovascular disease) Procedures NM Exercise Stress CT Component Lc Garcia MD [facility] [place] [address] [place] [address] Referral ID Status Reason Start Date Expiration Date V isits Requested Visits Authorized [id number] Closed Specialty Service Requested 05/30/2023 11/27/2024 1 1 * Consultation (Routine) - Closed Specialty Diagnoses / Procedures Referred By Contac t Referred To Contact Diagnoses ASCVD (arteriosclerotic cardiovascular disease) Cigarette smoker Lc Garcia MD [facility] [place] [address] [facility] [place] [address] Referral ID Status Reason Start Date Expiration Date V isits Requested Visits Authorized [id number] Closed Consult, Test & Treat 05/30/2023 05/29/2024 1 1 Encounter Details Date Type Department Care Team (Latest Contact Info) Description 05/30/2023 1:20 PM EST Office Visit Cardiology at [address] [address] Lc Garcia MD [facility] [place] [address] NSTEMI (non-ST elevated myocardial infarction); Chest pain, [...] Garcia MD - 05/30/2023 1:20 PM EST [facility] Outpatient Cardiology Patient: Danielle Mills : 1960 Reason for follow up: ASCVD, chest pain PCP: JUAN PABLO Waterman History of present illness: Danielle Mills is a 62 y.o. female with multivessel ASCVD who presents to [facility] cardiovascular care in the setting of her prior brusher machine departing a local practice. History is notable for multivessel PCI in the context of non- STEMI in January 2022 performed at [facility], referred from [facility]. The patient was noted to [...] not following with Dr. Carlos Jenkins at [facility]. She was switched to Repatha after both [...] Constipation Added automatically from request for surgery [id number] Non-ST elevation myocardial infarction (NSTEMI) NSTEMI (non-ST [...] or Sacral Epidural Steroid Inj Sacral (Caudal) (46006) performed by Alvarez Monteiro MD at [facility] PAIN MGMT MSO PRO UPPER GI ENDOSCOPY, BIOPSY N/A 11/19/2018 EGD WITH BIOPSY (WRVU 2.49) performed by Nimesh Alicia MD at [facility] ENDOSCOPY RECTOCELE REPAIR 2014 Dr. Boo @ [facility] SHOULDER SURGERY Left 06/05/2017 L shoulder [...] did agree to a referral to the [facility] tobacco cessation program, which I placed. The [...] discuss this patient, please contact me at [phone] or by email at [email or web address]. CC: JUAN PABLO Waterman documented in this encounter Plan of Treatment Upcoming Encounters Date Type Department Care Team (Late st Contact Info) Description 07/20/2024 1:15 PM EDT Office Visit Neurosurgery at [facility] [address] [place] [address] Mary Hart MD [address] [place] [address] Irena Pierre PA [address] [facility] [place] [address] Scheduled Referrals Name Type Priority Associated Diagnoses [...] have questions please contact the health child caregiver private home that requested your imaging first. ? Narrative 06/12/2023 2:58 PM EST EXAMINATION: NM PHARMACOLOGIC STRESS AND REST MYOCARDIAL PERFUSION CLINICAL HISTORY: Chest pain/anginal equiv, 10yr CHD risk > 20%, EST candidate R07.9, Chest pain, unspecified - I25.10, Atherosclerotic heart disease of [place] coronary artery without angina pectoris TECHNIQUE: During [...] who have questions please contactthe health child caregiver private home that requested your imaging first. Lc Gracia MD [facility] [place] ORDERABLES * NM Exercise Stress and [...] have questions please contact the health child caregiver private home that requested your imaging first. ? Narrative 06/12/2023 2:58 PM EST EXAMINATION: NM PHARMACOLOGIC STRESS AND REST MYOCARDIAL PERFUSION CLINICAL HISTORY: Chest pain/anginal equiv, 10yr CHD risk > 20%, EST candidate R07.9, Chest pain, unspecified - I25.10, Atherosclerotic heart disease of [place] coronary artery without angina pectoris TECHNIQUE: During [...] who have questions please contactthe health child caregiver private home that requested your imaging first. Lc Garcia MD [facility] ORDERABLES documented in this encounter Visit [...] disease documented in this encounter Care Teams Senior Application Programmer Relationship Specialty Start Date End Date Kaylee Jaquez PA [address] [address] PCP - General Family Medicine 01/18/22 documented as of this encounter
--- OUTSIDE RECORDS SUMMARY | 2024-06-25 11:04 | XMS_ITS | Encounter Summary ---
Author Organization [facility] [place] [address] Care Team Providers Care Test Director Name Role Phone Kaylee Jaquez Primary Care Provider Reason for Referral * Consultation (Routine) - Pending Review Specialty Diagnoses / Procedures Referred By Jasson mendoza Referred To Contact Orthopaedics Diagnoses Pain of right hip PT ALREADY HAS APPT SCHED , ATTACHED REFERRAL TO APPT Kaylee Jaquez PA [address] [place] [address] Elvin Whiting MD [address] [place] [address] [place] [address] Referral ID Status Reason Start Date Expiration Date Visits Requested Visits Authorized [id number] Pending Review Consult, Test & Treat PCP Updated and/or Approved 06/26/2023 06/25/2024 6 6 Encounter Details Date Type Department Care Team ([facility] st Contact Info) Description 06/26/2023 Transcribe Orders eDH Incoming Referrals [phone] Kaylee Jaquez PA [address] [place] [address] Pain of right hip Social History Tobacco [...] 1:15 PM EDT Office Visit Neurosurgery at [facility] [address] [place] [address] Mary Hart MD [address] [facility] [address] Irena Pierre PA [address] [facility] [address] Scheduled Referrals Name Type Priority Associated Diagnoses Order Schedule Referral to Orthopaedics Outpatient Referral Routine Pain of right hip Ordered: 06/26/2023 documented as of this encounter Visit Diagnoses Diagnosis Pain of right hip documented in this encounter Care Teams Test Director Relationship Specialty Start Date End Date Kaylee Jaquez PA [address] [place] [address] PCP - General Family Medicine 01/18/22 documented as of this encounter
--- OUTSIDE RECORDS SUMMARY | 2024-06-25 11:04 | XMS_ITS | Encounter Summary ---
[place] [address] Care Team Providers Care Information Security Analyst Name Role Phone Kaylee Jaquez Primary Care Provider Encounter Details Date Type Department Care Team (Late Contact Info) Description 02/03/2023 Telephone [place] [address] Fariba Palacio Social History Tobacco Use Types [...] Kayli Rader APRN from 02/14/23. Please call [phone]. SLB approved of a TOV documented in this encounter Plan of Treatment Upcoming Encounters Date Type Department Care Team (Late st Contact Info) Description 07/20/2024 1:15 PM EDT Office Visit Neurosurgery at 10 [place] [address] Mary Hart MD 10 [place] [address] Irena Pierre PA [address] [place] [address] documented as of this encounter Visit Diagnoses Not on filedocumented in this encounter Care Teams Information Security Analyst Relationship Specialty Start Date End Date Kaylee Jaquez PA [address] [address] PCP - General Family Medicine 01/18/22 documented as of this encounter
--- OUTSIDE RECORDS SUMMARY | 2024-06-25 11:04 | XMS_ITS | Encounter Summary ---
Author [place] [address] Care Team Providers Care Sanitary Napkin Machine Tender Name Role Phone Kayele Jaquez Primary Care Provider [phone] Encounter Details Date Type Department Care Team (Late st Contact Info) Description 01/22/2023 Telephone [facility] [place] [address] Charlee Porter RN Social History Tobacco Use [...] Neurosurgery at [facility] [address] [place] [address] Mary Hart MD [address] [place] [address] Irena Pierre PA [address] [place] [address] documented as of this encounter Visit Diagnoses Not on filedocumented in this encounter Care Teams Sanitary Napkin Machine Tender Relationship Specialty Start Date End Date Kaylee Jaquez PA [address] [address] PCP - General Family Medicine 01/18/22 documented as of this encounter
--- OUTSIDE RECORDS SUMMARY | 2024-06-25 11:04 | XMS_ITS | Encounter Summary ---
Author Organization [facility] [place] [address] Care Team Providers Care Migratory Game Bird Biologist Name Role Phone Kaylee Jaquez Primary Care Provider [phone] Reason for Visit * Diagnostic Test (Routine) - Closed Specialty Diagnoses / Procedures Referred By Jasson mendoza Referred To Contact Radiology Diagnoses Chest pain, unspecified type ASCVD (arteriosclerotic cardiovascular disease) Procedures NM Exercise Stress and Rest Myocardial Perfusion Lc Garcia MD [facility] [place] [address] [place] [address] Referral ID Status Reason Start Date Expiration Date V isits Requested Visits Authorized [id number] Closed Specialty Service Requested 05/30/2023 11/28/2024 1 1 Encounter Details Date Type Department Care Team (Latest Contact Info) Description 06/12/2023 8:59 AM EST Hospital Encounter [place] [address] Lc Garcia MD [facility] [place] [address] Discharge Disposition: Home Social History [...] 1:15 PM EDT Office Visit Neurosurgery at [facility] [address] [place] [address] Mary Hart MD 10 [facility] [place] [address] Irena Pierre PA 10 [facility] [place] [address] documented as of this encounter Procedures Procedure [...] Arm documented in this encounter Care Teams Migratory Game Bird Biologist Relationship Specialty Start Date End Date Kaylee Jaquez PA [address] [place] [address] PCP - General Family Medicine 01/18/22 documented as of this encounter
--- OUTSIDE RECORDS SUMMARY | 2024-06-25 11:04 | XMS_ITS | Encounter Summary ---
[place] [address] Care Team Providers Care Sales Agent Protective Service Name Role Phone Kaylee Jaquez Primary Care Provider [phone] Reason for Visit * Auth/Cert (Routine) Specialty Diagnoses / Procedures Referred By Jasson mendoza Referred To Contact Diagnoses Lumbar radiculopathy lumbar radiculopathy Procedures PRO INJECTION DX/THER SBST INTRLMNR LMBR/SAC W/IMG GDN PRO INJECTION DX/THER SBST INTRLMNR LMBR/SAC W/IMG GDN INJECTION, EPIDURAL, LUMBAR OR SACRAL (CAUDAL), WITH IMAGING GUIDANCE (WRVU 1.8) Lumbar or Sacral Epidural Steroid Inj Sacral (Caudal) (81978) Alvarez Monteiro MD [facility] Referral ID Status Reason Start Date Expiration Date Visits Re quested Visits Authorized [id number] 1 1 Encounter Details Date Type Department Care Team (Latest Contact Info) Description 01/23/2023 10:13 AM EDT - 01/23/2023 11:37 AM EDT Hospital En[place] [address] Alvarez Monteiro MD Left lumbar radiculopathy Discharge Disposition: Home Social [...] on file) Attending Physician: Alvarez Monteiro MD [facility] PREPROCEDURE HISTORY [...] Attending Physician [facility] [place] [id number] / documented in this encounter Miscellaneous Notes * Op Note - Alvarez Monteiro MD - 01/23/2023 11:25 AM EDT Pain Management Operative Note Patient Name: Danielle Mills : [id number] MR#: [id number] Case Date: 01/23/2023 Surgeon: Surgeon(s) and Role: [...] procedure. Alvarez Monteiro MD Pain Management Center Casting Plug Assembler of Anesthesiology [facility] [address] [address] / [facility] CC: Unknown None documented in this encounter Plan of Treatment Upcoming Encounters Date Type Department Care Team (Late st Contact Info) Description 07/20/2024 1:15 PM EDT Office Visit Neurosurgery at [facility] 10 [place] [address] Mary Hart MD 10 [facility] [place] [address] Irena Pierre PA [address] [facility] [place] [address] documented as of this encounter Procedures Procedure Name Priority Date/Time Associated Diagnosis Comments Injection Dx/Ther Sbst Intrlmnr Lmbr/Sac W/Img Gdn (47513) 01/23/2023 11:22 AM EDT Left lumbar radiculopathy Injection Dx/Ther Sbst Intrlmnr Lmbr/Sac W/Img Gdn (11015) 01/23/2023 11:22 AM EDT Left lumbar radiculopathy [...] JM) documented in this encounter Care Teams Sales Agent Protective Service Relationship Specialty Start Date End Date Kaylee Jaquez PA [address] [address] PCP - General Family Medicine 01/18/22 documented as of this encounter
--- OUTSIDE RECORDS SUMMARY | 2024-06-25 11:04 | XMS_ITS | Encounter Summary ---
[place] [address] Care Team Providers Care Data Warehousing Manager Name Role Phone Kaylee Jaquez Primary Care Provider [phone] Encounter Details Date Type Department Care Team (Late st Contact Info) Description 06/09/2023 Telephone [place] [address] Jennifer Barber Social History Tobacco Use Types [...] [facility] [place] [address] Mray Hart MD [address] [place] [address] Irena Pierre PA [address] [place] [address] documented as of this encounter Visit Diagnoses Not on filedocumented in this encounter Care Teams Data Warehousing Manager Relationship Specialty Start Date End Date Kaylee Jaquez PA [address] [place] [address] PCP - General Family Medicine 01/18/22 documented as of this encounter
--- OUTSIDE RECORDS SUMMARY | 2024-06-25 11:04 | XMS_ITS | Encounter Summary ---
Author Organization [facility] [place] [address] Care Team Providers Care Warp Dyeing Vat Tender Name Role Phone Kaylee Jaquez Primary Care Provider [phone] Encounter Details Date Type Department Care Team [...] PM EDT Office Visit Neurosurgery at 10 [place] [address] Mary Hart MD 10 [place] [address] Irena Pierre PA 10 [place] [address] documented as of this encounter Visit Diagnoses Not on filedocumented in this encounter Care Teams Warp Dyeing Vat Tender Relationship Specialty Start Date End Date Kaylee Jaquez PA [address] [place] [address] PCP - General Family Medicine 01/18/22 documented as of this encounter
--- OUTSIDE RECORDS SUMMARY | 2024-06-25 11:04 | XMS_ITS | Encounter Summary ---
Author Organization [facility] [address] Care Team Providers Care Retoucher Photoengraving Name Role Phone Kaylee Jaquez Primary Care Provider Reason for Visit * Reason Onset Date Comments Medication Refill 03/11/2023 Encounter Details Date Type Department Care Team (Late st Contact Info) Description 03/11/2023 [place] [address] Nimesh Alicia MD [facility] [place] [address] Social History Tobacco Use Types Packs/Day Years [...] Visit Neurosurgery at [facility] [address] [place] [address] Mary Hart [place] [address] Irena Pierre PA [place] [address] documented as of this encounter Visit Diagnoses Not on filedocumented in this encounter Care Teams Retoucher Photoengraving Relationship Specialty Start Date End Date Kaylee Jaquez PA [address] [place] [address] PCP - General Family Medicine 01/18/22 documented as of this encounter
--- OUTSIDE RECORDS SUMMARY | 2024-06-25 11:04 | XMS_ITS | Encounter Summary ---
[place] [address] Care Team Providers Care Chief Strategy Officer Name Role Phone Kaylee Jaquez Primary Care Provider [phone] Encounter Details Date Type Department Care Team (Late st Contact Info) Description 01/31/2023 Telephone [facility] [place] [address] Fariba Palacio Social History Tobacco Use Types [...] Kayli Rader APRN from 02/14/23. Please call [phone] documented in this encounter Plan of Treatment Upcoming Encounters Date Type Department Care Team (Late st Contact Info) Description 07/20/2024 1:15 PM EDT Office Visit Neurosurgery at 10 [place] [address] Mary Hart MD [address] [place] [address] Irena Pierre [place] [address] documented as of this encounter Visit Diagnoses Not on filedocumented in this encounter Care Teams Chief Strategy Officer Relationship Specialty Start Date End Date Kaylee Jaquez PA [address] [address] PCP - General Family Medicine 01/18/22 documented as of this encounter
--- OUTSIDE RECORDS SUMMARY | 2024-06-25 11:04 | XMS_ITS | Encounter Summary ---
[place] [address] Care Team Providers Care Tire Repair Mechanic Name Role Phone Kaylee Jaquez Primary [...] or Sacral Epidural Steroid Inj Sacral (Caudal) (84829) Alvarez Monteiro MD [facility] Referral ID Status Reason Start Date Expiration Date Visits Re quested Visits Authorized [id number] 1 1 Encounter Details Date Type Department Care Team (Late st Contact Info) Description 01/23/2023 11:00 AM EDT - 01/23/2023 11:30 AM EDT Surgery [place] [address] Alvarez Monteiro MD INJECTION, EPIDURAL, LUMBAR OR SACRAL (CAUDAL), WITH [...] on file) Attending Physician: Alvarez Monteiro MD [facility] PREPROCEDURE HISTORY AND [...] Attending Physician [facility] [place] [address] / documented in this encounter Miscellaneous Notes * Op Note - Alvarez Monteiro MD - 01/23/2023 11:25 AM EDT Pain Management Operative Note Patient Name: Danielle Mills : [id number] MR#: [id number] Case Date: 01/23/2023 Surgeon: Surgeon(s) and Role: [...] procedure. Alvarez Monteiro MD Pain Management Center Intervention Analyst of Anesthesiology [facility] [address] [address] / [facility] CC: Unknown None documented in this encounter Plan of Treatment Upcoming Encounters Date Type Department Care Team (Late st Contact Info) Description 07/20/2024 1:15 PM EDT Office Visit Neurosurgery at [facility] 10 [place] [address] Mary Hart MD 10 [facility] [place] [address] Irena Pierre PA 10 [facility] [place] [address] documented as of this encounter Procedures Procedure Name Priority Date/Time Associated Diagnosis Comments Injection Dx/Ther Sbst Intrlmnr Lmbr/Sac W/Img Gdn (19166) 01/23/2023 11:22 AM EDT Left lumbar radiculopathy Injection Dx/Ther Sbst Intrlmnr Lmbr/Sac W/Img Gdn (85800) 01/23/2023 11:22 AM EDT Left lumbar radiculopathy [...] LESI) documented in this encounter Care Teams Tire Repair Mechanic Relationship Specialty Start Date End Date Kaylee Jaquez PA [address] [address] PCP - General Family Medicine 01/18/22 documented as of this encounter
--- OUTSIDE RECORDS SUMMARY | 2024-06-25 11:04 | XMS_ITS | Encounter Summary ---
Author Organization [facility] [place] [address] Care Team Providers Care Noodle Press Operator Name Role Phone Kaylee Jaquez Primary Care Provider [phone] Reason for Visit * Reason Onset Date Comments Medication Refill 04/30/2023 Encounter Details Date Type Department Care Team (Late st Contact Info) Description 04/30/2023 Refill [place] [address] Marta Rivera MD [facility] [place] [address] Social History Tobacco Use Types Packs/Day Years [...] 1:15 PM EDT [facility] [place] [address] Mary Hart [place] [address] Irena Pierre [place] [address] documented as of this encounter Visit Diagnoses Not on filedocumented in this encounter Care Teams Noodle Press Operator Relationship Specialty Start Date End Date Kaylee Jaquez PA [address] [place] [address] PCP - General Family Medicine 01/18/22 documented as of this encounter
--- OUTSIDE RECORDS SUMMARY | 2024-06-25 11:04 | XMS_ITS | Encounter Summary ---
Author Organization [facility] [place] [address] Care Team Providers Care Engineering Inspector Name Role Phone Kaylee Jaquez Primary Care Provider Reason for Visit * Reason Onset Date Comments Medication Refill 12/16/2022 Encounter Details Date Type Department Care Team (Late st Contact Info) Description 12/16/2022 [place] [address] Nimesh Alicia MD [facility] [place] [address] Social History Tobacco Use Types Packs/Day Years [...] EDT Waiting for response from pt via [facility] to confirm dosing; once daily or twice daily. Pt responds and confirms that she is taking once daily Dexilant. documented in this encounter Plan of Treatment Upcoming Encounters Date Type Department Care Team (Late st Contact Info) Description 07/20/2024 1:15 PM EDT Office Visit Neurosurgery at 10 [place] [address] Mary Hart MD [address] [place] [address] Irena Pierre PA [facility] [place] [address] documented as of this encounter Visit Diagnoses Not on filedocumented in this encounter Care Teams Engineering Inspector Relationship Specialty Start Date End Date Kaylee Jaquez PA [address] [address] PCP - General Family Medicine 01/18/22 documented as of this encounter
--- OUTSIDE RECORDS SUMMARY | 2024-06-25 11:04 | XMS_ITS | Encounter Summary ---
[place] [address] Care Team Providers Care Crew Boat Operator Name Role Phone Kaylee Jaquez Primary Care Provider [phone] Encounter Details Date Type Department Care Team (Late st Contact Info) Description 11/22/2022 Telephone Pain [place] [address] Fariba Palacio Social History Tobacco Use Types [...] LVM on 11/22/22 in regards to a [facility] message left by patient stating she is having back pain with leg pain that is getting worse. Patient was requesting a follow up with Dr. Cadena. I asked to call [phone]. documented in this encounter Plan of Treatment Upcoming Encounters Date Type Department Care Team (Late st Contact Info) Description 07/20/2024 1:15 PM EDT Office Visit Neurosurgery at 10 [place] [address] Mary Hart MD 10 [place] [address] Irena Pierre PA 10 [place] [address] documented as of this encounter Visit Diagnoses Not on filedocumented in this encounter Care Teams Crew Boat Operator Relationship Specialty Start Date End Date Kaylee Jaquez PA [address] [address] PCP - General Family Medicine 01/18/22 documented as of this encounter
--- OUTSIDE RECORDS SUMMARY | 2024-06-25 11:04 | XMS_ITS | Encounter Summary ---
[place] [address] Care Team Providers Care Bean Viner Name Role Phone Kaylee Jaquez Primary Care Provider Encounter Details Date Type Department Care Team (Late st Contact Info) Description 07/02/2023 Orders Only Orthopaedics at [place] [address] [place] [address] Elvin Whiting MD [address] [facility] [place] [address] Pain in right hip Social History Tobacco [...] Neurosurgery at [facility] [address] [place] [address] Mary [place] [address] Irena Pierre PA [address] [place] [address] documented as of this encounter Results * [...] who have questions please contact the health school child care attendant that requested your imaging first. [...] patients who have questions please contactthe health school child care attendant that requested your imaging first. Elvin Whiting MD IMG DX ORDERABLES documented in this encounter Visit Diagnoses Diagnosis Pain in right hip Pain in joint, pelvic region and thigh Pain in right hip Pain in joint, pelvic region and thigh documented in this encounter Care Teams Bean Viner Relationship Specialty Start Date End Date Kaylee Jaquez PA [address] [place] [address] PCP - General Family Medicine 01/18/22 documented as of this encounter
--- OUTSIDE RECORDS SUMMARY | 2024-06-25 11:04 | XMS_ITS | Encounter Summary ---
Author Organization [facility] Address [facility] [place] [address] Care Team Providers Care Engraver Lettering Name Role Phone Kaylee Jaquez Primary Care Provider Reason for Visit * Reason Comments Medication Refill Encounter Details Date Type Department Care Team (Late st Contact Info) Description 07/27/2023 Refill Cardiology at [address] [address] Lc Garcia MD [facility] [place] [address] Medication Refill Social History Tobacco Use Types [...] 1:15 PM EDT Office Visit Neurosurgery at [facility] [address] [facility] [place] [address] Mary Hart MD [address] [place] [address] Irena Pierre PA [address] [place] [address] documented as of this encounter Visit Diagnoses Diagnosis NSTEMI (non-ST elevated myocardial infarction) Acute myocardial infarction, subendocardial infarction, episode of care unspecified documented in this encounter Care Teams Engraver Lettering Relationship Specialty Start Date End Date Kaylee Jaquez PA [address] [place] [address] PCP - General Family Medicine 01/18/22 documented as of this encounter
--- OUTSIDE RECORDS SUMMARY | 2024-06-25 11:04 | XMS_ITS | Encounter Summary ---
[place] [address] Care Team Providers Care Director Of Event Sales Name Role Phone Kaylee Jaquez Primary Care Provider [phone] Encounter Details Date Type Department Care Team (Late Contact Info) Description 07/24/2023 Telephone Gastroenterology at [place] [id number] [place] Social History Tobacco Use Types [...] calls can be handled by: Motility Lab Apprentice Photographer documented in this encounter Plan of Treatment Upcoming Encounters Date Type Department Care Team (Late st Contact Info) Description 07/20/2024 1:15 PM EDT Office Visit Neurosurgery at 10 [place] [address] Mary Hart MD 10 [place] [address] Irena Pierre PA 10 [place] [address] documented as of this encounter Visit Diagnoses Not on filedocumented in this encounter Care Teams Director Of Event Sales Relationship Specialty Start Date End Date Kaylee Jaquez PA [address] [address] PCP - General Family Medicine 01/18/22 documented as of this encounter
--- OUTSIDE RECORDS SUMMARY | 2024-06-25 11:04 | XMS_ITS | Encounter Summary ---
Author Organization [facility] [place] [address] Care Team Providers Care Photographic Artist Name Role Phone Kaylee Jaquez Primary Care Provider [phone] Reason for Visit * Diagnostic Test (Routine) - Closed Specialty Diagnoses / Procedures Referred By Jasson mendoza Referred To Contact Radiology Diagnoses Chest pain, unspecified type ASCVD (arteriosclerotic cardiovascular disease) Procedures NM Exercise Stress and Rest Myocardial Perfusion Lc Garcia MD [facility] [place] [address] [place] [address] Referral ID Status Reason Start Date Expiration Date V isits Requested Visits Authorized [id number] Closed Specialty Service Requested 05/30/2023 11/28/2024 1 1 Encounter Details Date Type Department Care Team (Latest Contact Info) Description 06/12/2023 8:59 AM EST Hospital Encounter [place] [address] Lc Garcia MD [facility] [place] [address] Discharge Disposition: Home Social History [...] EDT Office Visit Neurosurgery at [facility] [address] [place] [address] Mary Hart MD 10 [facility] [address] Irena Pierre PA 10 [facility] [place] [address] documented as of this encounter Procedures Procedure [...] who have questions please contact the health personal care assistant that requested your imaging first. ? Narrative 06/12/2023 2:58 PM EST EXAMINATION: NM PHARMACOLOGIC STRESS AND REST MYOCARDIAL PERFUSION CLINICAL HISTORY: Chest pain/anginal equiv, 10yr CHD risk > 20%, EST candidate R07.9, Chest pain, unspecified - I25.10, Atherosclerotic heart disease of [place] coronary artery without angina pectoris TECHNIQUE: During [...] patients who have questions please contactthe health personal care assistant that requested your imaging first. Lc Garcia MD [facility] [place] ORDERABLES * NM Exercise Stress and [...] who have questions please contact the health personal care assistant that requested your imaging first. ? Narrative 06/12/2023 2:58 PM EST EXAMINATION: NM PHARMACOLOGIC STRESS AND REST MYOCARDIAL PERFUSION CLINICAL HISTORY: Chest pain/anginal equiv, 10yr CHD risk > 20%, EST candidate R07.9, Chest pain, unspecified - I25.10, Atherosclerotic heart disease of [place] coronary artery without angina pectoris TECHNIQUE: During [...] resident's interpretationand agree with the findings, Neto Hinosn MD at 06/12/2023 2:58 PM Thank you for letting us participate in the care of this patient. If youare a health care provider and have any questions regarding this report,please contact the number below. For patients who have questions please contactthe health personal care assistant that requested your imaging first. Lc Garcia MD IMG NM ORDERABLES documented in this encounter Visit Diagnoses Not on filedocumented in this encounter Care Teams Photographic Artist Relationship Specialty Start Date End Date Kaylee Jaquez PA [address] [address] PCP - General Family Medicine 01/18/22 documented as of this encounter
--- OUTSIDE RECORDS SUMMARY | 2024-06-25 11:04 | XMS_ITS | Encounter Summary ---
[place] [address] Care Team Providers Care Advertising Copy Writer Name Role Phone Kaylee Jaquez Primary Care Provider Reason for Referral * Diagnostic Test (Routine) - Closed Specialty Diagnoses / Procedures Referred By Contac t Referred To Contact Radiology Diagnoses Chest pain, unspecified type ASCVD (arteriosclerotic cardiovascular disease) Procedures NM Exercise Stress CT Component Lc Garcia MD [facility] [place] [address] [place] [address] Referral ID Status Reason Start Date Expiration Date V isits Requested Visits Authorized [id number] Closed Specialty Service Requested 05/30/2023 11/27/2024 1 1 Reason for Visit * Diagnostic Test (Routine) - Closed Specialty Diagnoses / Procedures Referred By Contac t Referred To Contact Radiology Diagnoses Chest pain, unspecified type ASCVD (arteriosclerotic cardiovascular disease) Procedures NM Exercise Stress CT Component Lc Garcia MD [facility] [place] [address] [place] [address] Referral ID Status Reason Start Date Expiration Date V isits Requested Visits Authorized [id number] Closed Specialty Service Requested 05/30/2023 11/27/2024 1 1 Encounter Details Date Type Department Care Team (Latest Contact Info) Description 06/12/2023 9:00 AM EST - 06/12/2023 11:59 PM EST Hospital En[place] [address] Lc Garcia MD [facility] [place] [address] Chest pain, unspecified type; ASCVD [...] PM EDT Office Visit Neurosurgery at 10 [place] [address] [place] [address] [place] [address] documented as of this encounter Procedures Procedure [...] unspecified - I25.10, Atherosclerotic heart disease of [place] coronary artery without angina pectoris TECHNIQUE: During [...] care specialist that requested your imaging first. Lc Garcia MD IM NM ORDERABLES documented in this encounter Visit Diagnoses Diagnosis Chest pain, unspecified type ASCVD (arteriosclerotic cardiovascular disease) Unspecified cardiovascular disease documented in this encounter Care Teams Advertising Copy Writer Relationship Specialty Start Date End Date Kaylee Jaquez PA [address] [place] [address] PCP - General Family Medicine 01/18/22 documented as of this encounter
--- OUTSIDE RECORDS SUMMARY | 2024-06-25 11:05 | XMS_ITS | Encounter Summary ---
[place] [address] Care Team Providers Care Cat Scanner Operator Name Role Phone Kaylee Jaquez Primary Care Provider Reason for Visit * Reason Onset Date Comments Prior Authorization 09/05/2022 Motegrity Encounter Details Date Type Department Care Team (Late st Contact Info) Description 09/05/2022 Telephone [place] [address] Paulette Guevara CMA Prior Authorization (Motegrijoshua) Social [...] Case/Reference #: JUAN PABLO Case ID: JUAN [id number] Approval Letter will be scanned into media once received. * Telephone Encounter - Paulette Guevara CMA - 09/06/2022 10:36 AM EDT Images from the original note were not included. Received additional information request form from [employer]. Form printed off, filled out, faxed back to the insurance at [phone], and scanned into the patient chart. * Telephone Encounter - Paulette Guevara CMA - 09/05/2022 2:28 PM EDT PA Submitted Submitted Date: Submitted Date: 09/05/2022 Medication Prior Authorization Patient: Danielle Mills Patient : 1960 Insurance Company: [employer] Sent via: Sampa Leon: [id number] Physician: Nimesh Alicia MD Medication Requested: [email or web address] [...] would be a good option for her. [facility] Endoscopy Procedure Date: 08/01/2021 9:51 AM ? Patient Name: Danielle Mills ? Date of : 1960 ? Age: 61 ? Order #: [id number] ? Instrument Name: [id number] ? Procedure: ? Colonoscopy Indications: ? Constipation [...] ? Procedure Code(s): ?? --- Professional --- ?24770, Colonoscopy, flexible; with ?removal of tumor(s), polyp(s), or ?other lesion(s) by snare technique Diagnosis Code(s): ?? --- Professional --- ?K59.00, Constipation, unspecified ?K63.5, Polyp of colon ?--- Technical --- ?K59.00, Constipation, unspecified ?K63.5, Polyp of colon CPT copyright 2019 [employer]. All rights reserved. The codes documented in this report are preliminary and upon painter barrel review may be revised to meet current compliance requirements. Attending Participation: ?I personally performed the entire procedure. ? Nimesh Alicia, 08/01/2021 11:11:02 AM Number of Addenda: 0 [facility] Endoscopy Procedure Date: 11/19/2018 12:41 PM ? Patient Name: Danielle Mills ? Date of : 1960 ? Age: 58 ? Order #: [id number] ? Instrument Name: [id number] LOANER ? Procedure: ? Upper GI endoscopy [...] PM EDT Office Visit Neurosurgery at 10 [place] [address] Mary Hart MD [place] [address] Irena Pierre [place] [address] documented as of this encounter Visit Diagnoses Not on filedocumented in this encounter Care Teams Cat Scanner Operator Relationship Specialty Start Date End Date Kaylee Jaquez PA [address] [address] PCP - General Family Medicine 01/18/22 documented as of this encounter
--- OUTSIDE RECORDS SUMMARY | 2024-06-25 11:05 | XMS_ITS | Encounter Summary ---
Author Organization [facility] [place] [address] Care Team Providers Care Home Support Worker Name Role Phone Steven Jeffries MD Primary Care Provider [phone] Reason for Visit * Diagnostic Test (Routine) - Closed Specialty Diagnoses / Procedures Referred By Jasson mendoza Referred To Contact Gastroenterology Diagnoses Other constipation Nausea SMARTPILL-Nausea Procedures SmartPill SMARTPILL-Nausea Nimesh Alicia MD [facility] [place] [place] [address] [facility] [address] [place] [address] Referral ID Status Reason Start Date Expiration Date V isits Requested Visits Authorized [id number] Closed Consult, Test & Treat 08/01/2021 08/01/2022 1 1 Encounter Details Date Type Department Care Team (Latest Contact Info) Description 08/17/2021 10:00 AM EDT Procedure [place] [address] Other constipation; Nausea Social History Tobacco Use [...] 10:00 AM EDT Re: Danielle Mills Reg No:[id number] : 1960 Date of Service: 08/30/21 WIRELESS MOTILITY pH CAPSULE INGESTION (SMARTPILL) Referring provider:Nimesh Alicia Dear: Dr. Alicia We had the pleasure of performing a wireless motility pH capsule study on your patient in the GI Motility Laboratory at [facility]. CLINICAL HISTORY AND INDICATION As [...] MD, PARTH Section of Gastroenterology and Hepatology [facility] [place] [address] V: [phone] F: [phone] CC/EC: Steven Jeffries MD [address] [place] [address] documented in this encounter Plan of Treatment Upcoming Encounters Date Type Department Care Team (Late st Contact Info) Description 07/20/2024 1:15 PM EDT Office Visit Neurosurgery at [facility] 10 [place] [address] Mary Hart MD [address] [place] [address] Irena Pierre PA [address] [place] [address] documented as of this encounter Visit Diagnoses Diagnosis Other constipation Nausea Nausea alone documented in this encounter Care Teams Home Support Worker Relationship Specialty Start Date End Date Steven Jeffries MD [address] [place] [address] PCP - General General Internal Medicine 02/12/2101/17 documented as of this encounter
--- OUTSIDE RECORDS SUMMARY | 2024-06-25 11:05 | XMS_ITS | Encounter Summary ---
Author Organization [facility] [place] [address] Care Team Providers Care Assistant Professor Of Marine Biology Name Role Phone Kaylee Jaquez Primary Care Provider Encounter Details Date Type Department Care Team (Late st Contact Info) Description 07/17/2022 Notes [place] [address] Nimesh Alicia MD [facility] [place] [address] Social History Tobacco Use Types Packs/Day Years [...] Office Visit Neurosurgery at [facility] [address] [place] [place] [address] Mary Hart MD [address] [address] [place] [address] documented as of this encounter Visit Diagnoses Not on filedocumented in this encounter Care Teams Assistant Professor Of Marine Biology Relationship Specialty Start Date End Date Kaylee Jaquez PA [address] [place] [address] PCP - General Family Medicine 01/18/22 documented as of this encounter
--- OUTSIDE RECORDS SUMMARY | 2024-06-25 11:05 | XMS_ITS | Encounter Summary ---
[place] [address] Care Team Providers Care Resident Program Specialist Name Role Phone Kaylee Jaquez Primary Care Provider Reason for Referral * Consultation (Routine) - Closed Specialty Diagnoses / Procedures Referred By Contac t Referred To [facility] Diagnoses Chronic midline low back pain, unspecified whether sciatica present Maxime Cadena MD [facility] [place] [address] [facility] [place] [address] Referral ID Status Reason Start Date Expiration Date V isits Requested Visits Authorized [id number] Closed Consult, Test & Treat 01/21/2022 01/21/2023 [...] nerve impingement/ tried PT/ MRI 11/23/21 @ [facility] *AMP or KJM Kaylee Jaquez PA [address] [place] [address] [facility] [place] [address] Referral ID Status Reason Start Date Expiration Date V isits Requested Visits Authorized [id number] Closed Evaluate and Treat PCP Updated and/or Approved 11/28/2021 11/28/2022 6 6 Encounter Details Date Type Department Care Team (Late st Contact Info) Description 01/21/2022 3:00 PM EDT Office Visit [facility] [place] [address] Maxime Cadena MD [facility] [place] [address] Chronic midline low back pain, [...] ago following a work- related injury at [employer] with repetitive bending, twisting, and lifting in [...] Past medical history: Heart disease status post MT, diabetes, Delano's thyroiditis Past surgical history: Hysterectomy, [...] Office Visit Neurosurgery at [facility] 10 [place] [address] Mary Hart MD 10 [facility] [place] [address] Irena Pierre PA 10 [facility] [place] [address] Scheduled Referrals Name Type Priority Associated Diagnoses Orde r Schedule Referral to [facility] and Sp[facility] Center (Internal only) Outpatient Referral Routine Chronic midline low back pain, unspecified whether sciatica present Ordered: 01/21/2022 documented as of this encounter Visit Diagnoses Diagnosis Chronic midline low back pain, unspecified whether sciatica present documented in this encounter Care Teams Resident Program Specialist Relationship Specialty Start Date End Date Kaylee Jaquez PA [address] [place] [address] PCP - General Family Medicine 01/18/22 documented as of this encounter
--- OUTSIDE RECORDS SUMMARY | 2024-06-25 11:05 | XMS_ITS | Encounter Summary ---
[place] [address] Care Team Providers Care Collet Making Machine Operator Name Role Phone Kaylee Jaquez Primary Care Provider Encounter Details Date Type Department Care Team (Latest Contact Info) Description 03/04/2022 2:20 PM EDT Ancillary Procedure XRay at [address] [address] Elvin Whiting MD [address] [place] [address] [place] [address] Primary osteoarthritis of right knee Social History [...] 1:15 PM EDT Office Visit Neurosurgery at [facility] [address] [place] [address] [place] [address] Irena Pierre PA 10 [place] [address] documented as of this encounter Procedures Procedure [...] have questions please contact the health home health care worker that requested your imaging first. ? Narrative [...] who have questions please contactthe health home health care worker that requested your imaging first. Elvin Whiting MD IMG DX ORDERABLES documented in this encounter Visit Diagnoses Diagnosis Primary osteoarthritis of right knee Primary localized osteoarthrosis, lower leg documented in this encounter Care Teams Collet Making Machine Operator Relationship Specialty Start Date End Date Kaylee Jaquez PA [address] [address] PCP - General Family Medicine 01/18/22 documented as of this encounter
--- OUTSIDE RECORDS SUMMARY | 2024-06-25 11:05 | XMS_ITS | Encounter Summary ---
Author Organization [facility] [place] [address] Care Team Providers Care Boot Turner Name Role Phone Steven Jeffries MD Primary Care Provider [phone] Reason for Visit * Auth/Cert Specialty Diagnoses / Procedures Referred By Jasson mendoza Referred To Contact Diagnoses constipation Procedures PRO COLONOSCOPY, DIAGNOSTIC COLONOSCOPY, DIAGNOSTIC Referral ID Status Reason Start Date Expiration Date Visits Re quested Visits Authorized [id number] 1 1 Encounter Details Date Type Department Care Team (Late st Contact Info) Description 08/01/2021 10:30 AM EDT Anesthesia Event [place] [address] Viviana Mcclellan MD [facility] [place] [address] Anesthesia Record Procedure Summary Procedure Name Responsible [...] 0945; median cubital vein (antecubital fossa), left; vyqf-thk-bpgibn catheter system; Anatomical Landmarks; 20 gauge; distraction, [...] Procedure Summary Date: 08/01/21 Room / Location: [facility] ENDO 1 / [facility]OSCOPY Anesthesia Start: 1030 Anesthesia Stop: 1102 Procedure: COLONOSCOPY, POLYPECTOMY, REMOVAL LESION BY SNARE (WRVU 4.67) (N/A Trunk) Diagnosis: Constipation, unspecified constipation type (constipation) Surgeons: Nimesh Alicia MD Responsible Provider: Viviana Mcclellan MD Anesthesia Type: MAC ASA Status: 4 All Anesthesia Providers: Anesthesiologist: Viviana Mcclellan MD BIOSTATISTICS DIRECTOR: Elba Bean CRNA Vitals Value Taken Time [...] 2.49) performed by Nimesh Alicia MD at [facility] ENDOSCOPY ??? RECTOCELE REPAIR 2014 Dr. Boo @ [facility] ??? 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 Plan discussed with BIOSTATISTICS DIRECTOR. Anesthesia Screening documented in this encounter Plan of Treatment Upcoming Encounters Date Type Department Care Team (Late st Contact Info) Description 07/20/2024 1:15 PM EDT Office Visit Neurosurgery at 10 [place] [address] Mary Hart MD 10 [place] [address] Irena Pierre PA 10 [place] [address] documented as of this encounter Visit Diagnoses [...] mg documented in this encounter Care Teams Boot Turner Relationship Specialty Start Date End Date Steven Jeffries MD [address] [place] [address] PCP - General General Internal Medicine 02/12/2101/17 documented as of this encounter
--- OUTSIDE RECORDS SUMMARY | 2024-06-25 11:05 | XMS_ITS | Encounter Summary ---
Author Organization [facility] [place] [address] Care Team Providers Care Military Equipment Specialist Name Role Phone Kaylee Jaquez Primary [...] PM EDT Office Visit Neurosurgery at 10 [place] [address] Mary Hart MD 10 [place] [address] Irena Pierre PA 10 [place] [address] documented as of this encounter Visit Diagnoses Not on filedocumented in this encounter Care Teams Military Equipment Specialist Relationship Specialty Start Date End Date Kaylee Jqauez PA [address] [place] [address] PCP - General Family Medicine 01/18/22 documented as of this encounter
--- OUTSIDE RECORDS SUMMARY | 2024-06-25 11:05 | XMS_ITS | Encounter Summary ---
Author Organization [facility] Address [facility] [place] [address] Care Team Providers Care Warehouse Insulation Worker Name Role Phone Kaylee Jaquez Primary Care Provider Reason for Visit * Reason Onset Date Comments Medication Refill 09/10/2022 Encounter Details Date Type Department Care Team (Late st Contact Info) Description 09/10/2022 Refill Cardiology at [address] [address] Lc Garcia MD [facility] [place] [address] Medication Refill Social History Tobacco Use Types [...] PM EDT [facility] [place] [address] Mary Hart MD [address] [address] Irena Pierre PA [address] [place] [address] documented as of this encounter Visit Diagnoses Diagnosis NSTEMI (non-ST elevated myocardial infarction) Acute myocardial infarction, subendocardial infarction, episode of care unspecified documented in this encounter Care Teams Warehouse Insulation Worker Relationship Specialty Start Date End Date Kaylee Jaquez PA [address] [place] [address] PCP - General Family Medicine 01/18/22 documented as of this encounter
--- OUTSIDE RECORDS SUMMARY | 2024-06-25 11:05 | XMS_ITS | Encounter Summary ---
Author Organization [facility] Address [facility] [place] [address] Care Team Providers Care Quiller Hand Name Role Phone Steven Jeffries MD Primary Care Provider Reason for Visit * Auth/Cert Specialty Diagnoses / Procedures Referred By Jasson mendoza Referred To Contact Diagnoses constipation Procedures PRO COLONOSCOPY, DIAGNOSTIC COLONOSCOPY, DIAGNOSTIC Referral ID Status Reason Start Date Expiration Date Visits Re quested Visits Authorized [id number] 1 1 Encounter Details Date Type Department Care Team (Latest Contact Info) Description 08/01/2021 8:51 AM EDT - 08/01/2021 11:48 AM EDT Hospital Encounter [place] [address] Nimesh Alicia MD [facility] [place] [place] [address] Constipation Discharge Disposition: Home Social History Tobacco [...] occurs, please contact your Doctor. Please call [phone] before 8pm Mon-Fri with problems, questions or concerns. If you call after 8pm or on weekends, call the Hospital at [phone] and ask to speak to the Salad Counter Attendant stitch bonder machine operator helper and the silo operator will contact that person for you. When should you call for help? Call [phone] anytime you think you may need emergency [...] After Visit Summary and more online at [email or web address] If you would like to provide feedback [...] cost to you. Content Version: 12.2 ?? 5163-1908 [employer]. Care instructions adapted under license by [facility]. If you have questions about a medical condition or this instruction, always ask your healthcare professional. [employer] disclaims any warranty or liability for your [...] 12/25/2020 08/09/2022 GIDEON ROOT, BULK, MISC by [facility].(Non-Drug; Combo Route) route. 01/29/2022 docusate sodium (Colace) [...] - 07/20/2021 8:23 AM EST Danielle Mills [id number] Diagnosis/Indication: constipation 1. Have you ever had [...] ??? Carpal tunnel syndrome G56.00 ??? Cystocele [id number] ??? Depression, anxiety, insomnia, PTSD F32.A ??? [...] Operative Note Patient Name: Danielle Mills : [id number] MR#: [id number] Case Date: 08/01/2021 Surgeon: Surgeon(s) and Role: * Nimesh Alicia MD - Primary Procedure(s): COLONOSCOPY, POLYPECTOMY, REMOVAL LESION BY SNARE (WRVU 4.67) Please see Provation report for details. documented in this encounter Plan of Treatment Upcoming Encounters Date Type Department Care Team (Late st Contact Info) Description 07/20/2024 1:15 PM EDT Office Visit Neurosurgery at [address] [place] [address] Mary Hart MD 10 [place] [address] Irena Pierre PA 10 [place] [address] documented as of this encounter Procedures Procedure Name Priority Date/Time Associated Diagnosis Comments SPECIMEN TO PATHOLOGY Routine 08/01/2021 11:02 AM EDT SURGICAL PATHOLOGY REPORT Routine 08/01/2021 10:55 AM EDT Colonoscopy, Remv Reji Guardado ([id number]) 08/01/2021 10:30 AM EDT Constipation, unspecified constipation type COLONOSCOPY Routine 08/01/2021 9:51 AM EDT documented in this encounter Results * Specimen to Pathology (08/01/2021 11:02 AM EDT) AP Specimen 08/01/2021 11:0 2 AM EDT 08/01/2021 11:02 AM EDT Narrative [facility] - 08/01/2021 11:02 AM EDT Specimen requisition ordered. ??Separate Pathology report to follow Nimesh Alicia MD PATHOLOGY/CYTOLOGY O MARIANO [facility] [place] [address] * Surgical Pathology Report (08/01/2021 10:55 AM EDT) Final Diagnosis [id number] ? Location: 4T; EA11; A The signing pathologist has (i) examined the relevant preparation(s) for the specimen(s) and (ii) rendered or confirmed the diagnosis(es). . ?Surgical Pathology DIAGNOSIS A - Rectum polyps x2, excision: - ??Hyperplastic polyp. - Mucosal prolapse polyp. - ??Multiple levels examined. Electronically signed by: ?Shane ABDUL PhD, Adela Verified: ??08/06/2021 14:08 ??Pathologist Performed at: ??-[facility] Dept. [place]ology, [place], [place] SPECIMEN(S) SUBMITTED A - Rectum polyps [...] and trisected ??shb 08/06/2021 2:08 PM EDT [facility] GI Biopsy 08/01/2021 10:5 5 AM EDT 08/01/2021 10:55 AM EDT Nimesh Alicia MD PATHOLOGY/CYTOLOGY O RDERATRAY [facility] [place] [address] * COLONOSCOPY (08/01/2021 9:51 AM EDT) COLONOSCOPY [facility] Endoscopy Procedure Date: 08/01/2021 9:51 AM ? Patient Name: Danielle Mills ? N: [id number] ? Date of : 1960 ? Age: 61 ? Order #: [id number] ? Instrument Name: [id number] ? Procedure: ? Colonoscopy Indications: ? Constipation [...] Procedure Code(s): ?? --- Professional --- ? 67389, Colonoscopy, flexible; with ? removal of tumor(s), polyp(s), or ? other lesion(s) by snare technique Diagnosis Code(s): ?? --- Professional --- ? K59.00, Constipation, unspecified ? K63.5, Polyp of colon ? --- Technical --- ? K59.00, Constipation, unspecified ? K63.5, Polyp of colon CPT copyright 2019 [employer]. All rights reserved. The codes documented in this report are preliminary and upon principal programmer review may be revised to meet current [...] RN) documented in this encounter Care Teams Quiller Hand Relationship Specialty Start Date End Date Steven Jeffries MD [address] [place] [address] PCP - General General Internal Medicine 02/12/2101/17 documented as of this encounter
--- OUTSIDE RECORDS SUMMARY | 2024-06-25 11:05 | XMS_ITS | Encounter Summary ---
Author Organization [facility] [place] [address] Care Team Providers Care Jig And Fixture Builder Apprentice Name Role Phone Kaylee Jaquez Primary Care Provider Reason for Visit * Reason Onset Date Comments Medication Refill 06/17/2022 Encounter Details Date Type Department Care Team (Late st Contact Info) Description 06/17/2022 [place] [address] Nimesh Alicia MD [facility] [place] [address] Social History Tobacco Use Types Packs/Day Years [...] EDT Office Visit [facility] [address] Mary Hart MD [place] [address] Irena Pierre [place] [address] documented as of this encounter Visit Diagnoses Not on filedocumented in this encounter Care Teams Jig And Fixture Builder Apprentice Relationship Specialty Start Date End Date Kaylee Jaquez PA [address] [place] [address] PCP - General Family Medicine 01/18/22 documented as of this encounter
--- OUTSIDE RECORDS SUMMARY | 2024-06-25 11:05 | XMS_ITS | Encounter Summary ---
[place] [address] Care Team Providers Care Rivet Hole Machine Operator Name Role Phone Kaylee Jaquez Primary Care Provider [phone] Reason for Visit * Reason Onset Date Comments Prior Authorization 08/07/2022 dexlansopraz ole (Dexilant) [address] capsule Encounter Details Date Type Department Care Team (Late st Contact Info) Description 08/07/2022 [place] [address] Crista Beckwith CMA Prior Authorization [...] Date: 08/07/2022 End Date: 05/11/2023 Case/Reference #: [id number] Letter of approval will be scanned to media once received. Additional Notes: * Telephone Encounter - Crista Beckwith CMA - 08/07/2022 4:09 PM EDTSummary: JUAN PABLO submitted - dexlansoprazole Medication Prior Authorization Patient: Danielle Mills Patient : 1960 Insurance Company: [employer] Medicare Sent via: Scurri Leon: [id number] Physician: Nimesh Alicia MD Medication Requested: dexlansoprazole [...] 1:15 PM EDT Office Visit Neurosurgery at [facility] [place] [address] Mary Hart [place] [address] Irena Pierre [place] [address] documented as of this encounter Visit Diagnoses Not on filedocumented in this encounter Care Teams Rivet Hole Machine Operator Relationship Specialty Start Date End Date Kaylee Jaquez PA [address] [place] [address] PCP - General Family Medicine 01/18/22 documented as of this encounter
--- OUTSIDE RECORDS SUMMARY | 2024-06-25 11:05 | XMS_ITS | Encounter Summary ---
Author Organization [facility] [place] [address] Care Team Providers Care Sports Information Director Name Role Phone Kaylee Jaquez Primary [...] PM EDT Office Visit Neurosurgery at [address] [place] [address] Mary Hart MD 10 [place] [address] Irena Pierre PA 10 [place] [address] documented as of this encounter Visit Diagnoses Not on filedocumented in this encounter Care Teams Sports Information Director Relationship Specialty Start Date End Date Kaylee Jaquez PA [address] [place] [address] PCP - General Family Medicine 01/18/22 documented as of this encounter
--- OUTSIDE RECORDS SUMMARY | 2024-06-25 11:05 | XMS_ITS | Encounter Summary ---
Author Organization [facility] Address [facility] [place] [address] Care Team Providers Care Test Grader Name Role Phone Steven Jeffries MD Primary Care Provider [phone] Reason for Visit * Auth/Cert Specialty Diagnoses / Procedures Referred By Jasson mendoza Referred To Contact Diagnoses constipation Procedures PRO COLONOSCOPY, DIAGNOSTIC COLONOSCOPY, DIAGNOSTIC Referral ID Status Reason Start Date Expiration Date Visits Re quested Visits Authorized [id number] 1 1 Encounter Details Date Type Department Care Team (Late st Contact Info) Description 08/01/2021 10:00 AM EDT - 08/01/2021 10:45 AM EDT [place] [address] Nimesh Alicia MD [facility] [place] [address] COLONOSCOPY, POLYPECTOMY, REMOVAL LESION BY SNARE (WRVU [...] occurs, please contact your Doctor. Please call [phone] before 8pm Mon-Fri with problems, questions or concerns. If you call after 8pm or on weekends, call the Hospital at [phone] and ask to speak to the Group Counselor extracorporeal circulation specialist and the laundry operator finishing will contact that person for you. When should you call for help? Call [phone] anytime you think you may need emergency [...] After Visit Summary and more online at [email or web address] If you would like to [...] cost to you. Content Version: 12.2 ?? [id number] [employer]. Care instructions adapted under license by [facility]. If you have questions about a medical condition or this instruction, always ask your healthcare professional. [employer] disclaims any warranty or liability for your [...] 12/25/2020 08/09/2022 GIDEON ROOT, BULK, MISC by [facility]Non-Drug; Combo Route) route. 01/29/2022 docusate sodium (Colace) [...] - 07/20/2021 8:23 AM EST Danielle Mills [id number] Diagnosis/Indication: constipation 1. Have you ever had [...] ??? Carpal tunnel syndrome G56.00 ??? Cystocele GDQ3010 ??? Depression, anxiety, insomnia, PTSD F32.A ??? [...] Operative Note Patient Name: Danielle Mills : [id number] MR#: [id number] Case Date: 08/01/2021 Surgeon: Surgeon(s) and Role: * Nimesh Alicia MD - Primary Procedure(s): COLONOSCOPY, POLYPECTOMY, REMOVAL LESION BY SNARE (WRVU 4.67) Please see Provation report for details. documented in this encounter Plan of Treatment Upcoming Encounters Date Type Department Care Team (Late st Contact Info) Description 07/20/2024 1:15 PM EDT Office Visit Neurosurgery at [facility] [address] [place] [address] Mary Hart MD 10 [place] [address] Irena Pierre PA [address] [address] documented as of this encounter Procedures Procedure Name Priority Date/Time Associated Diagnosis Comments SPECIMEN TO PATHOLOGY Routine 08/01/2021 11:02 AM EDT SURGICAL PATHOLOGY REPORT Routine 08/01/2021 10:55 AM EDT Colonoscopy, RemReji Bustos ([id number]) 08/01/2021 10:30 AM EDT Constipation, unspecified constipation type COLONOSCOPY Routine 08/01/2021 9:51 AM EDT documented in this encounter Results * Specimen to Pathology (08/01/2021 11:02 AM EDT) AP Specimen 08/01/2021 11:0 2 AM EDT 08/01/2021 11:02 AM EDT Narrative [facility] - 08/01/2021 11:02 AM EDT Specimen requisition ordered. ??Separate Pathology report to follow Nimesh Alicia MD PATHOLOGY/CYTOLOGY O RDERATRAY [facility] [place] [address] * Surgical Pathology Report (08/01/2021 10:55 AM EDT) Final Diagnosis [id number] ? Location: 4T; EA11; A The signing pathologist has (i) examined the relevant preparation(s) for the specimen(s) and (ii) rendered or confirmed the diagnosis(es). . ?Surgical Pathology DIAGNOSIS A - Rectum polyps x2, excision: - ??Hyperplastic polyp. - Mucosal prolapse polyp. - ??Multiple levels examined. Electronically signed by: ?Shane ABDUL PhD, Adela Verified: ??08/06/2021 14:08 ??Pathologist Performed at: ??-[facility] Dept. of Pathology, [place], [place] SPECIMEN(S) SUBMITTED A - Rectum polyps [...] and trisected ??shb 08/06/2021 2:08 PM EDT [facility] GI Biopsy 08/01/2021 10:5 5 AM EDT 08/01/2021 10:55 AM EDT Nimesh Alicia MD PATHOLOGY/CYTOLOGY [place] [facility] [place] [address] * COLONOSCOPY (08/01/2021 9:51 AM EDT) COLONOSCOPY [facility] Endoscopy Procedure Date: 08/01/2021 9:51 AM ? Patient Name: Danielle Mills ? Date of : 1960 ? Age: 61 ? Order #: [id number] ? Instrument Name: [id number] ? Procedure: ? Colonoscopy Indications: ? Constipation [...] Procedure Code(s): ?? --- Professional --- ? 91058, Colonoscopy, flexible; with ? removal of tumor(s), polyp(s), or ? other lesion(s) by snare technique Diagnosis Code(s): ?? --- Professional --- ? K59.00, Constipation, unspecified ? K63.5, Polyp of colon ? --- Technical --- ? K59.00, Constipation, unspecified ? K63.5, Polyp of colon CPT copyright 2019 [employer]. All rights reserved. The codes documented in this report are preliminary and upon dental nurse review may be revised to meet current [...] RN) documented in this encounter Care Teams Test Grader Relationship Specialty Start Date End Date Steven Jeffries MD [address] [place] [address] PCP - General General Internal Medicine 02/12/2101/17 documented as of this encounter
--- OUTSIDE RECORDS SUMMARY | 2024-06-25 11:05 | XMS_ITS | Encounter Summary ---
[place] [address] Care Team Providers Care Family Service Caseworker Name Role Phone Kaylee Jaquez Primary Care Provider Reason for Visit * Reason Comments Prior Authorization Repatha Pushtronex S ystem 420 SOCT Encounter Details Date Type Department Care Team (Late st Contact Info) Description 09/09/2022 Specialty [place] [address] Paula Marcelo CPHT Social History [...] Address: [address] [place] [address] (home) Medication Name: REPATHA PUSHTRONEX 420 MG/3.5 ML SUBCUTANEOUS WEARABLE INJECTOR Medication ID: [id number] Patient Location: [facility] Patient Location Comment: Medication Strength Frequency Requested: Repatha Pushtronex System 420 SOCT: 3.5 mLs by subcutaneous (via wearable injector) route every 30 days Qty/Day Supply: 09/08 New Start: New to Pharmacy Diagnosis & ICD-10 Code: ASCVD, I25.10 Subscriber Insurance: [employer] Subscriber Insurance Comment: Fax: Physician: ARIK BARON Physician Comment : PA Status: PA Not Needed Insurance mandated Pharmacy[facility]: Yes Insurance requirements/notes: None Copay: Unknown Copay assistance: None Copay assistance comment: Pharmacy staff will be reaching out to the patient to inform them of their medication's approval [facility]. If applicable, a pharmacist will speak with the patient to offer our specialty pharmacy services and to arrange delivery of their medication. Paula Marcelo 09/09/22 2:50 PM documented in this encounter Plan of Treatment Upcoming Encounters Date Type Department Care Team (Late st Contact Info) Description 07/20/2024 1:15 PM EDT Office Visit Neurosurgery at 10 [place] [address] Mary Hart MD [address] [place] [address] [place] [address] documented as of this encounter Visit Diagnoses Not on filedocumented in this encounter Care Teams Family Service Caseworker Relationship Specialty Start Date End Date Kaylee Jaquez PA [address] [place] [address] PCP - General Family Medicine 01/18/22 documented as of this encounter
--- OUTSIDE RECORDS SUMMARY | 2024-06-25 11:05 | XMS_ITS | Encounter Summary ---
Author Organization [facility] [address] Care Team Providers Care Applications Tester Name Role Phone Kaylee Jaquez Primary Care Provider Reason for Visit * Reason Onset Date Comments Medication Refill 02/04/2022 Encounter Details Date Type Department Care Team (Late st Contact Info) Description 02/04/2022 Refill [place] [address] Reid Mondragon, RN Social History Tobacco Use [...] Office Visit Neurosurgery at [facility] [address] [place] [address] Mary Hart MD [address] [place] [address] Irena Pierre PA [address] [place] [address] documented as of this encounter Visit Diagnoses Not on filedocumented in this encounter Care Teams Applications Tester Relationship Specialty Start Date End Date Kaylee Jaquez PA [address] [place] [address] PCP - General Family Medicine 01/18/22 documented as of this encounter
--- OUTSIDE RECORDS SUMMARY | 2024-06-25 11:05 | XMS_ITS | Encounter Summary ---
Author Organization [facility] Address [facility] [place] [address] Care Team Providers Care Garment Fitter Name Role Phone Kaylee Jaquez Primary Care Provider Reason for Visit * Reason Onset Date Comments Medication Refill 11/22/2022 Encounter Details Date Type Department Care Team (Late st Contact Info) Description 11/22/2022 Refill Cardiology at [address] [address] Lc Garcia MD [facility] [place] [address] Medication Refill Social History Tobacco Use Types [...] 1:15 PM EDT [facility] [place] [address] Mary Hart MD [address] [place] [address] Irena Pierre PA [address] [place] [address] documented as of this encounter Visit Diagnoses Diagnosis Hyperlipidemia, unspecified hyperlipidemia type documented in this encounter Care Teams Garment Fitter Relationship Specialty Start Date End Date Kaylee Jaquez PA [address] [address] PCP - General Family Medicine 01/18/22 documented as of this encounter
--- OUTSIDE RECORDS SUMMARY | 2024-06-25 11:05 | XMS_ITS | Encounter Summary ---
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] [facility] at [facility] [place] [address] Mary Hart MD [address] [place] [address] Irena Pierre PA 10 [place] [address] Scheduled Referrals Name Type Priority Associated Diagnoses Orde r Schedule Referral to Pain Management Outpatient Referral Routine Cervical spondylosis Ordered: 01/18/2022 documented as of this encounter Visit Diagnoses Diagnosis Cervical spondylosis Cervical spondylosis without myelopathy documented in this encounter Care Teams Gas Engine Performance Engineer Relationship Specialty Start Date End Date Kaylee Jaquez PA [address] [place] [address] PCP - General Family Medicine 01/18/22 documented as of this encounter
--- OUTSIDE RECORDS SUMMARY | 2024-06-25 11:05 | XMS_ITS | Encounter Summary ---
Author Organization [facility] [place] [address] Care Team Providers Care Pediatric Cardiologist Name Role Phone Kaylee Jaquez Primary Care Provider Reason for Visit * Reason Onset Date Comments Medication Refill 09/04/2022 Encounter Details Date Type Department Care Team (Late st Contact Info) Description 09/04/2022 Refill [place] [address] Nimesh Alicia MD [facility] [place] [address] Gastroparesis Social History Tobacco Use Types Packs/Day [...] Visit Neurosurgery at [facility] [place] [address] Mary Hart [place] [address] Irena Pierre [place] [address] documented as of this encounter Visit Diagnoses Diagnosis Gastroparesis documented in this encounter Care Teams Pediatric Cardiologist Relationship Specialty Start Date End Date Kaylee Jaquez PA [address] [address] PCP - General Family Medicine 01/18/22 documented as of this encounter
--- OUTSIDE RECORDS SUMMARY | 2024-06-25 11:05 | XMS_ITS | Encounter Summary ---
Author Organization [facility] [place] [address] Care Team Providers Care Diversified Crops Farmer Name Role Phone Kaylee Jaquez Primary Care Provider Reason for Visit * Reason Comments Medication Refill Encounter Details Date Type Department Care Team (Late st Contact Info) Description 01/26/2022 [place] [address] Marta Rivera MD [facility] [place] [address] Social History Tobacco Use Types Packs/Day Years [...] 1:15 PM EDT [facility] [address] [place] [address] Mary Hart MD [address] [place] [address] Irena Pierre PA [address] [address] documented as of this encounter Visit Diagnoses Not on filedocumented in this encounter Care Teams Diversified Crops Farmer Relationship Specialty Start Date End Date Kaylee Jaquez PA [address] [address] PCP - General Family Medicine 01/18/22 documented as of this encounter
--- OUTSIDE RECORDS SUMMARY | 2024-06-25 11:05 | XMS_ITS | Encounter Summary ---
Author Organization [facility] [place] [address] Care Team Providers Care Farmer And Grazier Name Role Phone Kaylee Jaquez Primary Care Provider Reason for Visit * Reason Onset Date Comments Medication Refill 01/26/2022 Encounter Details Date Type Department Care Team (Late st Contact Info) Description 01/26/2022 Refill [place] [address] Marta Rivera MD [facility] [place] [address] Social History Tobacco Use Types Packs/Day Years [...] [facility] [place] [address] Mary Hart [place] [address] Irena Pierre [place] [address] documented as of this encounter Visit Diagnoses Not on filedocumented in this encounter Care Teams Farmer And Grazier Relationship Specialty Start Date End Date Kaylee Jaquez PA [address] [place] [address] PCP - General Family Medicine 01/18/22 documented as of this encounter
--- OUTSIDE RECORDS SUMMARY | 2024-06-25 11:05 | XMS_ITS | Encounter Summary ---
Author Organization [facility] [place] [address] Care Team Providers Care Telemarketing Representative Name Role Phone Kaylee Jaquez Primary Care Provider Reason for Referral * Consultation (Routine) - Closed Specialty Diagnoses / Procedures Referred By Contmacie t Referred To Contact [facility] Diagnoses Other specified dorsopathies, site unspecified Kaylee Jaquez PA [address] [place] [address] Maxime Cadena MD [facility] [place] [place] [address] Referral ID Status Reason Start Date Expiration Date V isits Requested Visits Authorized [id number] Closed Consult, Test & Treat PCP Updated and/or Approved 11/22/2022 11/22/2023 1 1 Encounter Details Date Type Department Care Team (Latest Contact Info) Description 11/22/2022 Transcribe Orders eDH Incoming Referrals [phone] Kaylee Jaquez PA [address] [place], [place] [id number] Other specified dorsopathies, site unspecified Social History [...] Office Visit Neurosurgery at [facility] 10 [place] [address] Mary Hart MD 10 [facility] [place] [address] Irena Pierre PA 10 [facility] [place] [address] Scheduled Referrals Name Type Priority Associated Diagnoses Orde r Schedule Referral to Pain Management Outpatient Referral Routine Other specified dorsopathies, site unspecified Ordered: 11/22/2022 documented as of this encounter Visit Diagnoses Diagnosis Other specified dorsopathies, site unspecified documented in this encounter Care Teams Telemarketing Representative Relationship Specialty Start Date End Date Kaylee Jaquez PA [address] [address] PCP - General Family Medicine 01/18/22 documented as of this encounter
--- OUTSIDE RECORDS SUMMARY | 2024-06-25 11:05 | XMS_ITS | Encounter Summary ---
Author Organization [facility] [place] [address] Care Team Providers Care Manager Nursing Home Name Role Phone Kayele Jaquez Primary Care Provider [phone] Reason for Visit * Reason Onset Date Comments Medication Refill 07/29/2022 Encounter Details Date Type Department Care Team (Late st Contact Info) Description 07/29/2022 Refill [place] [address] Marta Rivera MD [facility] [place] [place] [address] Social History Tobacco Use Types Packs/Day Years [...] 1:15 PM EDT [facility] [place] [address] Mary Hart [place] [address] Irena Pierre [place] [address] documented as of this encounter Visit Diagnoses Not on filedocumented in this encounter Care Teams Manager Nursing Home Relationship Specialty Start Date End Date Kaylee Jaquez PA [address] [place] [address] PCP - General Family Medicine 01/18/22 documented as of this encounter
--- OUTSIDE RECORDS SUMMARY | 2024-06-25 11:05 | XMS_ITS | Encounter Summary ---
Author Organization [facility] [place] [address] Care Team Providers Care Research Assistant Name Role Phone Steven Jeffries MD Primary Care Provider Reason for Referral * Diagnostic Test (Routine) - Closed Specialty Diagnoses / Procedures Referred By Contmacie mendoza Referred To Contact Gastroenterology Diagnoses Other constipation Nausea SMARTPILL-Nausea Procedures SmartPill SMARTPILL-Nausea Nimesh Alicia MD [facility] [place] [address] [facility] Gastro [address] [place] [address] Referral ID Status Reason Start Date Expiration Date V isits Requested Visits Authorized [id number] Closed Consult, Test & Treat 08/01/2021 08/01/2022 1 1 Encounter Details Date Type Department Care Team (Late st Contact Info) Description 08/01/2021 Orders [place] [address] Nimesh Alicia MD [facility] [place] [address] Other constipation; Nausea Social History Tobacco Use [...] 1:15 PM EDT Office Visit Neurosurgery at [facility] 10 [place] [address] Mary Hart MD [address] [place] [address] Irena Pierre PA [facility] [place] [address] Scheduled Orders Name Type Priority Associated Diagnoses Orde r Schedule SmartPill GI Routine Other constipation Nausea Expected: 08/01/2021, Expires: 01/31/2022 documented as of this encounter Visit Diagnoses Diagnosis Other constipation Nausea Nausea alone documented in this encounter Care Teams Research Assistant Relationship Specialty Start Date End Date Steven Jeffries MD [address] [place] [address] PCP - General General Internal Medicine 02/12/2101/17 documented as of this encounter
--- OUTSIDE RECORDS SUMMARY | 2024-06-25 11:05 | XMS_ITS | Encounter Summary ---
Author Organization [facility] [place] [address] Care Team Providers Care Manager Support Services Name Role Phone Kaylee Jaquez Primary Care Provider Reason for Visit * Reason Onset Date Comments Medication Refill 07/23/2022 Encounter Details Date Type Department Care Team (Late st Contact Info) Description 07/23/2022 [place] [address] Marta Rivera MD [facility] [place] [address] Social History Tobacco Use Types Packs/Day Years [...] EDT Office Visit [facility] [place] [address] Mary Hart [place] [address] Irena Pierre [place] [address] documented as of this encounter Visit Diagnoses Not on filedocumented in this encounter Care Teams Manager Support Services Relationship Specialty Start Date End Date Kaylee Jaquez PA [address] [place] [address] PCP - General Family Medicine 01/18/22 documented as of this encounter
--- OUTSIDE RECORDS SUMMARY | 2024-06-25 11:05 | XMS_ITS | Encounter Summary ---
Author Organization [facility] [place] [address] Care Team Providers Care Splitter Operator Name Role Phone Steven Jeffries MD Primary Care Provider Encounter Details Date Type Department Care Team (Late st Contact Info) Description 01/02/2022 Ancillary Procedure Radiology Library at [facility] [place] [address] Sirisha Tolliver APRN [facility] [place] [address] Social History Tobacco Use Types Packs/Day Years [...] PM EDT Office Visit Neurosurgery at 10 [place] [address] Mary Hart MD [address] NEUROSURGERY [place], [place] [address] Irena Pierre PA [address] [place] [address] documented as of this encounter Procedures Procedure Name Priority Date/Time Associated Diagnosis Comments FILM LIBRARY STORAGE ONLY MR SPINE Routine 01/02/2022 12:00 AM EDT documented in this encounter Results * Film Library- Storage Only MR Spine (01/02/2022 12:00 AM EDT) Narrative [facility] - 01/22/2022 8:06 PM EDT This exam is auto-finalizing. It's purpose is for storage only. Sirisha Tolliver APRN IMG FILM LIBRARY OR DERABLES Performing Organization Address City/State/[facility] Co de Phone Number [place], [place] documented in this encounter Visit Diagnoses Not on filedocumented in this encounter Care Teams Splitter Operator Relationship Specialty Start Date End Date Steven Jeffries MD [address] [place] [address] PCP - General General Internal Medicine 02/12/2101/17 documented as of this encounter
--- OUTSIDE RECORDS SUMMARY | 2024-06-25 11:05 | XMS_ITS | Encounter Summary ---
Author Organization [facility] [place] [address] Care Team Providers Care Director Of Analytical Development Name Role Phone Steven Jeffries MD Primary Care Provider [phone] Reason for Visit * Reason Onset Date Comments Medication Refill 01/02/2022 Encounter Details Date Type Department Care Team (Late st Contact Info) Description 01/02/2022 [place] [address] Nimesh Alicia MD [facility] [place] [address] Social History Tobacco Use Types Packs/Day Years [...] [facility] [place] [address] Mary Hart MD [address] [place] [address] Irena Pierer [place] [address] documented as of this encounter Visit Diagnoses Not on filedocumented in this encounter Care Teams Director Of Analytical Development Relationship Specialty Start Date End Date Steven Jeffries MD [address] [place] [address] PCP - General General Internal Medicine 02/12/2101/17 documented as of this encounter
--- OUTSIDE RECORDS SUMMARY | 2024-06-25 11:05 | XMS_ITS | Encounter Summary ---
Author Organization [place] [address] Care Team Providers Care Cisco Certified Network Professional Name Role Phone Kaylee Jaquez Primary Care Provider Reason for Visit * Reason Onset Date Comments Medication Refill 09/23/2022 Encounter Details Date Type Department Care Team (Late st Contact Info) Description 09/23/2022 Refill [place] [address] Nimesh Alicia MD [facility] [place] [address] Gastroparesis Social History Tobacco Use Types Packs/Day [...] Visit Neurosurgery at [address] [place] [address] Mary Hart MD [place] [address] Irena Pierre PA [place] [address] documented as of this encounter Visit Diagnoses Diagnosis Gastroparesis documented in this encounter Care Teams Cisco Certified Network Professional Relationship Specialty Start Date End Date Kaylee Jaquez PA [address] [address] PCP - General Family Medicine 01/18/22 documented as of this encounter
--- OUTSIDE RECORDS SUMMARY | 2024-06-25 11:05 | XMS_ITS | Encounter Summary ---
Author [facility] [place] [address] Care Team Providers Care Ios Architect Name Role Phone Kaylee Jaquez Primary Care Provider [phone] Encounter Details Date Type Department Care Team (Late st Contact Info) Description 07/31/2022 Orders Only [place] [address] Nimesh Alicia MD [facility] [place] [address] Social History Tobacco Use Types Packs/Day Years [...] at [facility] [address] [place] [address] Mary Hart MD [address] [place] [address] [place] [address] documented as of this encounter Visit Diagnoses Not on filedocumented in this encounter Care Teams Ios Architect Relationship Specialty Start Date End Date Kaylee Jaquez PA [address] [place] [address] PCP - General Family Medicine 01/18/22 documented as of this encounter
--- OUTSIDE RECORDS SUMMARY | 2024-06-25 11:05 | XMS_ITS | Encounter Summary ---
[place] [address] Care Team Providers Care Language Arts Teacher Name Role Phone Kaylee Jaquez Primary Care Provider Reason for Visit * Reason Comments Right Knee Pain S/P TKA dos September 2009 Encounter Details Date Type Department Care Team (Late st Contact Info) Description 03/04/2022 2:30 PM EDT Office Visit Orthopaedics at [address] [address] Elvin Whiting MD [address] [place] [address] [place] [address] Primary osteoarthritis of right knee; Presence of [...] lymphadenopathy IMAGING: X-Ray taken today at [facility], were reviewed with the patient and shows: [...] PM EDT Office Visit Neurosurgery at [facility] [address] [place] [address] Mary Hart MD 10 [place] [address] Irena Pierre PA [address] [place] [address] documented as of this encounter Visit Diagnoses Diagnosis Primary osteoarthritis of right knee Primary localized osteoarthrosis, lower leg Presence of right artificial knee joint Knee joint replacement by other means documented in this encounter Care Teams Language Arts Teacher Relationship Specialty Start Date End Date Kaylee Jaquez PA [address] [place] [address] PCP - General Family Medicine 01/18/22 documented as of this encounter
--- OUTSIDE RECORDS SUMMARY | 2024-06-25 11:05 | XMS_ITS | Encounter Summary ---
Author Organization [facility] [place] [address] Care Team Providers Care Risk Manager Name Role Phone Kaylee Jaquez Primary [...] PM EDT Office Visit Neurosurgery at 10 [place] [address] Mary Hart MD 10 [place] [address] Irena Pierre PA 10 [place] [address] documented as of this encounter Visit Diagnoses Not on filedocumented in this encounter Care Teams Risk Manager Relationship Specialty Start Date End Date Kaylee Jaquez PA [address] [place] [phone] PCP - General Family Medicine 01/18/22 documented as of this encounter
--- OUTSIDE RECORDS SUMMARY | 2024-06-25 11:05 | XMS_ITS | Encounter Summary ---
Author Organization [facility] Address [facility] [place] [place] [address] Care Team Providers Care Supervisor Dimension Warehouse Name Role Phone Kaylee Jaquez Primary Care Provider Reason for Visit * Reason Onset Date Comments Medication Refill 09/04/2022 Encounter Details Date Type Department Care Team (Late st Contact Info) Description 09/04/2022 Refill Cardiology at [address] [address] Lc Garcia MD [facility] [place] [address] Medication Refill Social History Tobacco Use Types [...] EDT Office Visit [facility] at [facility] [place] [address] Mary Hart MD [address] [address] Irena Pierre PA [address] [place] [address] documented as of this encounter Visit Diagnoses Diagnosis Hyperlipidemia, unspecified hyperlipidemia type NSTEMI (non-ST elevated myocardial infarction) Acute myocardial infarction, subendocardial infarction, episode of care unspecified documented in this encounter Care Teams Supervisor Dimension Warehouse Relationship Specialty Start Date End Date Kaylee Jaquez PA [address] [place] [address] PCP - General Family Medicine 01/18/22 documented as of this encounter
--- OUTSIDE RECORDS SUMMARY | 2024-06-25 11:05 | XMS_ITS | Encounter Summary ---
Author Organization [facility] [place] [address] Care Team Providers Care Physics Professor Name Role Phone Kaylee Jaquez Primary Care Provider [phone] Reason for Visit * Reason Onset Date Comments Medication Refill 11/01/2022 Encounter Details Date Type Department Care Team (Late st Contact Info) Description 11/01/2022 Ref[place] [address] Marta Rivera MD [facility] [place] [address] Social History Tobacco Use Types Packs/Day Years [...] [facility] [place] [address] Mary Hart MD [place] [address] Irena Pierre PA [place] [address] documented as of this encounter Visit Diagnoses Not on filedocumented in this encounter Care Teams Physics Professor Relationship Specialty Start Date End Date Kaylee Jaquez PA [address] [place] [address] PCP - General Family Medicine 01/18/22 documented as of this encounter
--- OUTSIDE RECORDS SUMMARY | 2024-06-25 11:05 | XMS_ITS | Encounter Summary ---
Author Organization [facility] Address [facility] [place] [address] Care Team Providers Care Access Control Specialist Name Role Phone Kaylee Jaquez Primary Care Provider [phone] Encounter Details Date Type Department Care Team (Late st Contact Info) Description 07/29/2022 10:00 AM EDT Office [place] [address] Marta Cabral MD [facility] [place] [address] Type 2 diabetes, controlled, with neuropathy; Delano's [...] Placed This Encounter Procedures Hemoglobin A1c TSH [place] Vitamin D, 25-Hydroxy LDL Cholesterol, Direct Basic Metabolic Panel (non-fasting) U Albumin/Cre Ratio X-ray/Imaging study: Office Thyroid ultrasound for thyroid nodule size after 2-5 year at our officenext year (by the same rasper machine operator). 4. RTC: 12 mo for [...] difficulty swallowing. Thyroid US at [facility] on 10/22/19 showed a Rt [...] ??? Carpal tunnel syndrome G56.00 ??? Cystocele [id number] ??? Depression, anxiety, insomnia, PTSD F32.A ??? [...] muscle weakness. Thyroid US at [facility] Radiology (10/22/19) before taking thyroid Rx showed a Rt thyroid nodule of 1.1 cmand the others were < 1 cm with rec to FU in 6 mo. Office Thyroid Ultrasound: 05/30/21 Indication: Rt thyroid nodule and Delano's thyroiditis - to assess nodule size after 1.5 yrs Comparison:12/06/19 at our clinic 10/22/19 US from outside at [facility]. Procedure: Real-time ultrasonography limited to the thyroid gland and lateral neck area with and without color doppler were obtained using a [employer] Flex Focus 400 US machine and an [...] ng/mL 25-OH Vit D Interp Sufficient TSH [place] Result Value Ref Range TSH 1.27 0.27 [...] Encounter Procedures ??? Hemoglobin A1c ??? TSH [place] ??? Vitamin D, 25-Hydroxy ??? LDL Cholesterol, Direct ??? Basic Metabolic Panel (non-fasting) ??? U Albumin/Cre Ratio X-ray/Imaging study: Office Thyroid ultrasound for thyroid nodule size after 2-5 year at our officenext year (by the same rasper machine operator). 4. RTC: 12 mo for [...] 1:15 PM EDT Office Visit Neurosurgery at [facility] [address] [place] [address] Mary Hart MD [address] [facility] [place] [address] Irena Pierre PA [address] [facility] [place] [address] documented as of this encounter Procedures Procedure [...] Not Calculated 0 - 29 mcg/mg Cr [facility] Comment: Reference Ranges: <30 mcg/mg: Normal [...] 2, 357? 362 Albumin, Urine <3.0 mg/L [facility] Creatinine, Urine 49 mg/dL [facility] Urine 07/29/2022 10:5 9 AM EDT 07/29/2022 11:16 AM EDT Narrative Resulting Agency Comment Spec In Lab Marta Cabral MD URINE ORDERABLES [facility] [address] [place] [address] * Basic Metabolic Panel (non-fasting) (07/29/2022 10:55 AM EDT) Glucose 139 65 - 199 mg/dL [facility] Comment:Diabetes: >=200 mg/d L plus symptoms Blood Urea Nitrogen 11 8 - 18 mg/dL [facility] Creatinine 0.70 0.70 - 1.20 mg/dL [facility] Sodium 142 135 - 145 mmol/L [facility] Potassium 3.8 3.5 - 5.0 mmol/L [facility] Comment: Please note: ??Patients with WBC >100,000 may have falsely elevated Potassium levels. ??For accurate Potassium quantification in these patients send serum separator tube (gold top) for subsequent determinations. ??Contact the Clinical Chemistry Laboratory if there are any questions. Chloride 103 98 - 107 mmol/L [facility] Carbon Dioxide 28 22 - 31 mmol/L [facility] Anion Gap 11 5 - 15 mmol/L [facility] Calcium 9.4 8.5 - 10.5 mg/dL [facility] Est Glomerular Filtration Rate 98 >=60 mL/min/1. 73 m?? [facility] Comment: This patient's estimated GFR was [...] Lab Marta Cabral MD CHEMISTRY ORDERAB LES [facility] [address] * LDL Cholesterol, Direct (07/29/2022 10:55 AM EDT) LDL Cholesterol, Direct 69 mg/dL [facility] Comment: Lowest Risk: <100 mg/dL Lower Risk: 100-129 mg/dL Borderline High Risk: 130-159 mg/dL High Risk: 160-189 mg/dL Very High Risk: >mo=635 mg/dL Blood 07/29/2022 10:5 5 AM EDT 07/29/2022 11:15 AM EDT Narrative Resulting Agency Comment Spec In Lab Marta Cabral MD CHEMISTRY ORDERAB LES [facility] [address] * Vitamin D, 25-Hydroxy (07/29/2022 10:55 AM EDT) Vitamin D Total 25 OH 34 21 - 100 ng/mL [facility] Vit D Interp Sufficient [facility] Blood 07/29/2022 10:5 5 AM EDT 07/29/2022 11:15 AM EDT Narrative Resulting Agency Comment Spec In Lab Marta Cabral MD CHEMISTRY ORDERAB LES Performing Organization Address City/[facility]/ZIP Co de Phone Number [facility] [address] * TSH [place] (07/29/2022 10:55 AM EDT) Thyroid Stimulating Hormone 1.27 0.27 - 4.20 mcIU/mL [facility] Comment: Reference Interval (mcIU/mL): Females: ??First Trimester: 0.23-3.88 ??Second Trimester: 0.22-3.90 ??Third Trimester: 0.44-4.66 Blood 07/29/2022 10:5 5 AM EDT 07/29/2022 11:15 AM EDT Narrative Resulting Agency Comment Spec In Lab Marta Cabral MD CHEMISTRY ORDERAB LES Performing Organization Address City/[facility]/ZIP Co de Phone Number [facility] [address] * (ABNORMAL) Hemoglobin A1c (07/29/2022 10:55 AM EDT) Hemoglobin A1c 6.5(H) 4.3 - 5.6 % [facility] Comment: Reference Range: 4.3 - 5.6% [...] Mellitus, Diabetes Care 2013; 36: Suppl. 1, S67-80 Estimated Average Glucose 140 mg/dL [facility] Comment: eAG equivalents for HbA1c percentages: [...] into estimated average glucose values. ??Diabetes Care 2008:31(8):2361-8013. Blood 07/29/2022 10:5 5 AM EDT 07/29/2022 11:15 AM EDT Narrative Resulting Agency Comment Spec In Lab Marta Cabral MD [place] [address] documented in this encounter Visit Diagnoses Diagnosis Type 2 diabetes, controlled, with neuropathy Type II or unspecified type diabetes mellitus with neurological manifestations, not stated as uncontrolled Delano's thyroiditis Chronic lymphocytic thyroiditis Vitamin D deficiency Unspecified vitamin D deficiency 3-vessel CAD Coronary atherosclerosis of unspecified type of vessel, [place] or graft documented in this encounter Care Teams Access Control Specialist Relationship Specialty Start Date End Date Kaylee Jaquez PA [address] [place] [address] PCP - General Family Medicine 01/18/22 documented as of this encounter
--- OUTSIDE RECORDS SUMMARY | 2024-06-25 11:05 | XMS_ITS | Encounter Summary ---
Author Organization [facility] [place] [address] Care Team Providers Care Steward/Stewardess Railroad Dining Car Name Role Phone Kaylee Jaquez Primary Care Provider Encounter Details Date Type Department Care Team (Latest Contact Info) Description 08/09/2022 1:40 PM EDT Office Visit Cardiology at [address] [address] Lc Garcia MD [facility] [place] [address] ASCVD (arteriosclerotic cardiovascular disease); Hyperlipidemia, unspecified hyperlipidemia [...] Garcia MD - 08/09/2022 1:40 PM EDT [facility] Patient: Danielle Mills : 1960 Reason for consult: ASCVD, hypertension, hyperlipidemia PCP: JUAN PABLO Waterman History of present illness: Danielle Mills is a 62 y.o. 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 History is notable for multivessel PCI in the context of non- STEMI in January 2022 performed at [facility], referred from [facility]. The [...] not following with Dr. Carlos Jenkins at [facility]. She was switched to [facility] after both [...] chest pain. She recalls that her prior strategic business development palpated her chest which reproduced the sensation. [...] Constipation Added automatically from request for surgery [id number] ??? Non-ST elevation myocardial infarction (NSTEMI) ??? [...] 4.67) performed by Nimesh Alicia MD at [facility] ENDOSCOPY ??? PRO UPPER GI ENDOSCOPY, BIOPSY N/A 11/19/2018 EGD WITH BIOPSY (WRVU 2.49) performed by Nimesh Alicia MD at [facility] ENDOSCOPY ??? RECTOCELE REPAIR 2014 Dr. Boo @ [facility] ??? SHOULDER SURGERY Left 06/05/2017 L [...] premounted 3.50 x 18 mm Resolute EZEQUIEL (JENAETH) was deployed with a maximum inflation pressure [...] following the recent departure of her local strategic business development, Dr. Jenkins, at [facility]. History is remarkable for multivessel ASCVD status [...] another round of tobacco cessation counseling at [facility], which the patient declined. After our discussion, [...] discuss this patient, please contact me at [phone] or by email at [email or web address]. CC: JUAN PABLO Waterman documented in this encounter Plan of Treatment Upcoming Encounters Date Type Department Care Team (Late st Contact Info) Description 07/20/2024 1:15 PM EDT Office Visit Neurosurgery at [facility] [address] [place] [address] Mary Hart MD [facility] [place] [address] Irena Pierre PA [facility] [place] [address] Scheduled Orders Name Type Priority Associated Diagnoses Orde r Schedule EKG 12 Lead ECG Routine ASCVD (arteriosclerotic cardiovascular disease) One Time for 1 Occurrences starting 08/09/2022 until 08/09/2022 documented as of this encounter Visit Diagnoses Diagnosis ASCVD (arteriosclerotic cardiovascular disease) Unspecified cardiovascular disease Hyperlipidemia, unspecified hyperlipidemia type Hypertension, unspecified type Current smoker Tobacco use disorder documented in this encounter Care Teams Steward/Stewardess Railroad Dining Car Relationship Specialty Start Date End Date Kaylee Jaquez PA [address] [place] [address] PCP - General Family Medicine 01/18/22 documented as of this encounter
--- OUTSIDE RECORDS SUMMARY | 2024-06-25 11:05 | XMS_ITS | Encounter Summary ---
Author Organization [facility] [place] [address] Care Team Providers Care Fabrication Machine Operator Name Role Phone Steven Jeffries MD Primary Care Provider [phone] Encounter Details Date Type Department Care Team (Late st Contact Info) Description 11/23/2021 Ancillary Procedure [facility] [place] [address] Steven Jeffries MD [address] [place] [address] Social History Tobacco Use Types Packs/Day Years [...] PM EDT Office Visit Neurosurgery at [facility] [address] [place] [address] Mary Hart MD [address] [place] [address] [place] [address] documented as of this encounter Procedures Procedure Name Priority Date/Time Associated Diagnosis Comments FILM LIBRARY STORAGE ONLY MR SPINE Routine 11/23/2021 12:00 AM EDT documented in this encounter Results * Film Library- Storage Only MR Spine (11/23/2021 12:00 AM EDT) Narrative [facility] - 01/16/2022 3:10 PM EDT This exam is auto-finalizing. It's purpose is for storage only. Steven Jeffries MD G FILM LIBRARY ORD ERABLES Performing Organization Address City/State/[facility] Co de Phone Number [place], [place] documented in this encounter Visit Diagnoses Not on filedocumented in this encounter Care Teams Fabrication Machine Operator Relationship Specialty Start Date End Date Steven Jeffries MD [address] [place] [address] PCP - General General Internal Medicine 02/12/2101/17 documented as of this encounter
--- OUTSIDE RECORDS SUMMARY | 2024-06-25 11:05 | XMS_ITS | Encounter Summary ---
Author Organization [facility] Address [facility] [place] [address] Care Team Providers Care Seo Consultant Name Role Phone Kaylee Jaquez Primary Care Provider [phone] Reason for Visit * Reason Comments Medication Refill Encounter Details Date Type Department Care Team (Late st Contact Info) Description 11/15/2022 Ref[place] [address] [facility] [place] [address] Social History Tobacco Use Types Packs/Day Years [...] Visit Neurosurgery at [facility] [address] [place] [address] Mary Hart MD [address] [place] [address] Irena Pierre PA [address] [place] [address] documented as of this encounter Visit Diagnoses Not on filedocumented in this encounter Care Teams Seo Consultant Relationship Specialty Start Date End Date Kaylee Jaquez PA [address] [address] PCP - General Family Medicine 01/18/22 documented as of this encounter
--- OUTSIDE RECORDS SUMMARY | 2024-06-25 11:05 | XMS_ITS | Encounter Summary ---
[place] [address] Care Team Providers Care Shaker Washer Name Role Phone Kaylee Jaquez Primary Care Provider [phone] Encounter Details Date Type Department Care Team (Late st Contact Info) Description 03/06/2022 Telephone [place] [address] Bonnie Rubio Social History Tobacco Use Types [...] calls can be handled by: [facility] [place] documented in this encounter Plan of Treatment Upcoming Encounters Date Type Department Care Team (Late st Contact Info) Description 07/20/2024 1:15 PM EDT Office Visit Neurosurgery at [address] [place] [address] Mary Hart MD 10 [place] [address] Irena Pierre PA [address] [place] [address] documented as of this encounter Visit Diagnoses Not on filedocumented in this encounter Care Teams Shaker Washer Relationship Specialty Start Date End Date Kaylee Jaquez PA [address] [place] [address] PCP - General Family Medicine 01/18/22 documented as of this encounter
--- OUTSIDE RECORDS SUMMARY | 2024-06-25 11:05 | XMS_ITS | Encounter Summary ---
Author Organization [facility] [place] [address] Care Team Providers Care Node Js Developer Name Role Phone Kaylee Jaquez Primary Care Provider [phone] Encounter Details Date Type Department Care Team [...] PM EDT Office Visit Neurosurgery at 10 [place] [address] Mary Hart MD [address] [place] [address] Irena Pierre PA [address] [place] [address] documented as of this encounter Visit Diagnoses Not on filedocumented in this encounter Care Teams Node Js Developer Relationship Specialty Start Date End Date Kaylee Jaquez PA [address] [place] [address] PCP - General Family Medicine 01/18/22 documented as of this encounter
--- OUTSIDE RECORDS SUMMARY | 2024-06-25 11:05 | XMS_ITS | Encounter Summary ---
Author Organization [facility] [place] [address] Care Team Providers Care Power Shovel Operator Helper Name Role Phone Kaylee Jaquez Primary Care Provider [phone] Encounter Details Date Type Department Care Team [...] PM EDT Office Visit Neurosurgery at [address] [place] [address] Mary Hart MD 10 [place] [address] Irena Pierre PA [address] [place] [address] documented as of this encounter Visit Diagnoses Not on filedocumented in this encounter Care Teams Power Shovel Operator Helper Relationship Specialty Start Date End Date Kaylee Jaquez PA [address] [place] [address] PCP - General Family Medicine 01/18/22 documented as of this encounter
--- OUTSIDE RECORDS SUMMARY | 2024-06-25 11:05 | XMS_ITS | Encounter Summary ---
Author Organization [facility] Address [facility] [facility] [address] Care Team Providers Care Ip Litigation Paralegal Name Role Phone Kaylee Jaquez Primary Care Provider [phone] Encounter Details Date Type Department Care Team (Late st Contact Info) Description 07/16/2022 10:00 AM EST Office [place] [address] Nimesh Alicia MD [facility] [place] [address] Gastroparesis; Constipation, unspecified constipation type Social History [...] 4.67) performed by Nimesh Alicia MD at [facility] ENDOSCOPY ??? PRO UPPER GI ENDOSCOPY, BIOPSY N/A 11/19/2018 EGD WITH BIOPSY (WRVU 2.49) performed by Nimesh Alicia MD at [facility] ENDOSCOPY ??? RECTOCELE REPAIR 2014 Dr. Boo @ [facility] ??? SHOULDER SURGERY Left 06/05/2017 [...] CC JUAN PABLO Waterman [address] [place] [address] No referring provider defined for this encounter. documented in this encounter Plan of Treatment Upcoming Encounters Date Type Department Care Team (Late st Contact Info) Description 07/20/2024 1:15 PM EDT Office Visit Neurosurgery at [address] [place] [address] [place] [address] Irena [place] [address] documented as of this encounter Visit Diagnoses Diagnosis Gastroparesis Constipation, unspecified constipation type documented in this encounter Care Teams Ip Litigation Paralegal Relationship Specialty Start Date End Date Kaylee Jaquez PA [address] [address] PCP - General Family Medicine 01/18/22 documented as of this encounter
--- OUTSIDE RECORDS SUMMARY | 2024-06-25 11:05 | XMS_ITS | Encounter Summary ---
Author Organization [facility] [place] [address] Care Team Providers Care Tourist Guide Name Role Phone Kaylee Jaquez Primary Care Provider [phone] Reason for Visit * Reason Onset Date Comments Medication Refill 06/16/2022 Encounter Details Date Type Department Care Team (Late st Contact Info) Description 06/16/2022 Refill [place] [address] Nimesh Alicia MD [facility] [place] [address] Social History Tobacco Use Types Packs/Day Years [...] EDT Office Visit Neurosurgery at [facility] [place] [address] Mary Hart [place] [address] Irena Pierre [place] [address] documented as of this encounter Visit Diagnoses Not on filedocumented in this encounter Care Teams Tourist Guide Relationship Specialty Start Date End Date Kaylee Jaquez PA [address] [place] [address] PCP - General Family Medicine 01/18/22 documented as of this encounter
--- OUTSIDE RECORDS SUMMARY | 2024-06-25 11:05 | XMS_ITS | Encounter Summary ---
[place] [address] Care Team Providers Care Oyster Planter Name Role Phone Kaylee Jaquez Primary Care Provider [phone] Reason for Referral * Consultation (Routine) - Canceled Specialty Diagnoses / Procedures Referred By Contac t Referred To Contact Pain [facility] Sp[facility] Center Diagnoses Chronic midline low back pain, unspecified whether sciatica present Sirisha Tolliver APRN [facility] [place] [address] [facility] [place] [address] Referral ID Status Reason Start Date Expiration Date V isits Requested Visits Authorized [id number] Canceled Consult, Test & Treat 01/29/2022 01/29/2023 1 1 Reason for Visit * Reason Comments Pain Lower back /tail bon e - down Left legNeck pain * Consultation (Routine) - Closed Specialty Diagnoses / Procedures Referred By Contac t Referred To [facility] Diagnoses Cervical spondylosis Connective tissue and disc stenosis of intervertebral foramina of cervical region Kaylee Jaquez PA [address] [place] [address] [facility] [place] [address] Referral ID Status Reason Start Date Expiration Date V isits Requested Visits Authorized [id number] Closed Consult, Test & Treat PCP Updated and/or Approved 01/18/2022 01/18/2023 6 6 Encounter Details Date Type Department Care Team (Late st Contact Info) Description 01/29/2022 1:30 PM EDT Office Visit [facility] [place] [phone] Sirisha Tolliver, HAUL CANE BRAKEMAN [facility] [place] [address] Chronic midline low back pain, unspecified whether [...] this encounter Progress Notes * Sirisha Tolliver, HAUL CANE BRAKEMAN - 01/29/2022 1:30 PM EDT Images from the original note were not included. [facility] Date [...] 43.97 PAST THERAPIES: Tylenol advil PT in [place], trying to change walking gait. Injections MARINE, YASMINE, LESI Chiropractor activator Functional Status Work--disbaled ADL's---can do pretty much everything with pacing Lives at home with her [facility] Prescription Monitoring Program was checked. The number [...] ??? Carpal tunnel syndrome G56.00 ??? Cystocele [id number] ??? Depression, anxiety, insomnia, PTSD F32.A ??? [...] performed by Nimesh Alicia MD at [facility] ENDOSCOPY ??? PRO UPPER GI ENDOSCOPY, BIOPSY N/A 11/19/2018 EGD WITH BIOPSY (WRVU 2.49) performed by Nimesh Alicia MD at [facility] ENDOSCOPY ??? RECTOCELE REPAIR 2014 Dr. Boo @ [facility] ??? SHOULDER SURGERY Left 06/05/2017 L [...] y.o. year-old female who presents to the [facility] for Pain and Spine clinic I spoke to the patient about her active pain service and the welcome group as well as the functional church program in detail. She actually has an acquaintance who went through the functional church program successfully and she is quite interested in that. We have agreed to have her go through the welcome group and pain 100 and perhaps empowered relief. If she listens tothe welcome group and is interested in the functional church program and the time team thinks is appropriate, she can go forward with a gap assessment to identify her goals and her needs. I am happy to see her in follow-up for a medical clearance afterwards. All her questions were answered. Thank you Dr. Cadena for allowing my participation in Danielle Mills's care. Sirisha oTlliver, MS, [employer], HAUL CANE BRAKEMAN Nurse practitioner Pain management [facility] documented in this encounter Plan of Treatment Upcoming Encounters Date Type Department Care Team (Late st Contact Info) Description 07/20/2024 1:15 PM EDT [place] [address] Mary Hart [place] [address] Irena Pierre [place] [address] Scheduled Referrals Name Type Priority Associated Diagnoses Orde r Schedule Amb Referral to Active Pain Care Services Outpatient Referral Routine Chronic midline low back pain, unspecified whether sciatica present Ordered: 01/29/2022 documented as of this encounter Visit Diagnoses Diagnosis Chronic midline low back pain, unspecified whether sciatica present- Primary documented in this encounter Care Teams Oyster Planter Relationship Specialty Start Date End Date Kaylee Jaquez PA [address] [address] PCP - General Family Medicine 01/18/22 documented as of this encounter
--- OUTSIDE RECORDS SUMMARY | 2024-06-25 11:05 | XMS_ITS | Encounter Summary ---
[place] [address] Care Team Providers Care Management Specialist Name Role Phone Kaylee Jaquez Primary Care Provider [phone] Encounter Details Date Type Department Care Team (Late st Contact Info) Description 01/31/2022 Notes Only [facility] [place] [address] Lisa Hernandez Social History Tobacco Use Types [...] for [employer] Welcome Group however, canceled via [facility] stating - After looking upthe program, [...] Office Visit Neurosurgery at [facility] [address] [place] [address] Mary Hart MD [address] [place] [address] Irena Pierre PA [facility] [place] [address] documented as of this encounter Visit Diagnoses Not on filedocumented in this encounter Care Teams Management Specialist Relationship Specialty Start Date End Date Kaylee Jaquez PA [address] [place] [address] PCP - General Family Medicine 01/18/22 documented as of this encounter
--- OUTSIDE RECORDS SUMMARY | 2024-06-25 11:05 | XMS_ITS | Encounter Summary ---
[place] [address] Care Team Providers Care Nurse Consultant Name Role Phone Steven Jeffries MD Primary Care Provider Reason for Referral * Consultation (Routine) - Closed Specialty Diagnoses / Procedures Referred By Jasson t Referred To Contact [facility] and Spine Center Diagnoses Intervertebral disc disease Degenerative disc disease, lumbar Radiculopathy of lumbar region Spine - Lumbar disc protrusion w/ nerve impingement/ tried PT/ MRI 11/23/21 @ [facility] *AMP or KJM Kaylee Jaquez PA [address] [place] [address] [facility] [place] [address] Referral ID Status Reason Start Date Expiration Date V isits Requested Visits Authorized [id number] Closed Evaluate and Treat PCP Updated and/or Approved 11/28/2021 11/28/2022 6 6 Encounter Details Date Type Department Care Team (Latest Contact Info) Description 11/28/2021 Transcribe Orders eDH Incoming Referrals [phone] Kaylee Jaquez PA [address] [place], [place] [id number] Intervertebral disc disease; Degenerative disc disease, lumbar; [...] 1:15 PM EDT Office Visit Neurosurgery at [facility] [address] [place] [address] Mary Hart MD 10 [facility] [place] [address] Irena Pierre PA 10 [facility] [place] [address] Scheduled Referrals Name Type Priority Associated Diagnoses [...] unspecified documented in this encounter Care Teams Nurse Consultant Relationship Specialty Start Date End Date Steven Jeffries MD [address] [place] [address] PCP - General General Internal Medicine 02/12/2101/17 documented as of this encounter
--- OUTSIDE RECORDS SUMMARY | 2024-06-25 11:05 | XMS_ITS | Encounter Summary ---
Author Organization [facility] [place] [address] Care Team Providers Care Ec Teacher Name Role Phone Kaylee Jaquez Primary [...] PM EDT Office Visit Neurosurgery at [address] [place] [address] Mary Hart MD 10 [place] [address] Irena Pierre PA 10 [place] [address] documented as of this encounter Visit Diagnoses Not on filedocumented in this encounter Care Teams Ec Teacher Relationship Specialty Start Date End Date Kaylee Jaquez PA [address] [place] [address] PCP - General Family Medicine 01/18/22 documented as of this encounter
--- OUTSIDE RECORDS SUMMARY | 2024-06-25 11:06 | XMS_ITS | Encounter Summary ---
Author Organization [facility] [place] [address] Care Team Providers Care V Belt Coverer Name Role Phone Francy Lowe APRN Primary Care Provider + Reason for Visit * Reason Onset Date Comments Medication Refill 12/25/2020 Encounter Details Date Type Department Care Team (Late st Contact Info) Description 12/25/2020 Refill [place] [address] Marta Rivera MD [facility] [place] [address] Social History Tobacco Use Types Packs/Day Years [...] 1:15 PM EDT [facility] [address] [place] [address] Mary Hart MD [address] [place] [address] Irena Pierre PA [address] [place] [address] documented as of this encounter Visit Diagnoses Not on filedocumented in this encounter Care Teams V Belt Coverer Relationship Specialty Start Date End Date Francy Lowe APRN PCP - General Family Medicine 10/19/19 02/11/21 documented as of this encounter
--- OUTSIDE RECORDS SUMMARY | 2024-06-25 11:06 | XMS_ITS | Encounter Summary ---
Author Organization [facility] Address [facility] [place] [address] Care Team Providers Care Transmissions Systems Operator Name Role Phone Steven Jeffries MD Primary Care Provider Encounter Details Date Type Department Care Team (Late st Contact Info) Description 05/30/2021 9:30 AM EST Office [place] [address] Marta Rivera MD [facility] [place] [address] Type 2 diabetes, controlled, with neuropathy; Delano's [...] a year atour office by the same scraper loader operator next spring/summer. 4. RTC: 12 mo [...] recently admitted in late Jan 2020 for MT s/p 3 stents (02/07/20) Patient verbally consents to this telephone visit and understands that this visit may be billed, similar to a clinic office visit. I provided care to the patient today via telephone call. The total time associated with this visit was 30 minutes. HISTORY OF PRESENT ILLNESS: Danielle Farias is a very pleasant 60 y.o. [...] to BEN. She recently admitted due to MT s/p 3 stents for her 3vss CAD with summary as shown below: Hospital Course during 02/06-02/09/20: #NSTEMI s/p PCI with JEANETH to LAD, LPA and LPL1 Admitted to the cardiology service. 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 [...] and occasional difficulty swallowing. Thyroid US at [facility] on 10/22/19 showed a Rt thyroid nodule [...] ??? Carpal tunnel syndrome G56.00 ??? Cystocele [id number] ??? Depression, anxiety, insomnia, PTSD F32.A ??? [...] No proximal muscle weakness. Thyroid US at [facility] Radiology (10/22/19) before taking thyroid Rx showed a Rt thyroid nodule of 1.1 cmand the others were < 1 cm with rec to FU in 6 mo. Office Thyroid Ultrasound: 12/06/19 (~6 weeks after taking liothyronine supplement) Indication: Rt thyroid nodule and Delano's thyroiditis - to assess nodule characteristic & may need FNA biopsy if suspicious. Comparison: 10/22/19 US from outside at [facility]. Procedure: Real-time ultrasonography limited to the thyroid gland and lateral neck area with and without color doppler were obtained using a [employer]) Focus 400 US machine and an HFL38/15-6 [...] recently admitted in late Jan 2020 for MT s/p 3 stents (02/07/20), so we will [...] a year atour office by the same scraper loader operator next spring/summer. 4. RTC: 12 mo [...] and occasional difficulty swallowing. Thyroid US at [facility] on 10/22/19 showed a Rt thyroid nodule [...] ??? Carpal tunnel syndrome G56.00 ??? Cystocele [id number] ??? Depression, anxiety, insomnia, PTSD F32.A ??? [...] No proximal muscle weakness. Thyroid US at [facility] Radiology (10/22/19) before taking thyroid Rx showed a Rt thyroid nodule of 1.1 cmand the others were < 1 cm with rec to FU in 6 mo. Office Thyroid Ultrasound: 05/30/2021 Indication: Rt thyroid nodule and Delano's thyroiditis - to assess nodule size after 1.5 yrs Comparison:12/06/19 at our clinic 10/22/19 US from outside at [facility]. Procedure: Real-time ultrasonography limited to the thyroid gland and lateral neck area with and without color doppler were obtained using a [employer] Flex Focus 400 US machine and an [...] our officetoday as above (by the same scraper loader operator). 4. RTC: 6-12 mo to assess [...] our clinic 10/22/19 US from outside at [facility]. Procedure: Real-time ultrasonography limited to the thyroid gland and lateral neck area with and without color doppler were obtained using a [employer] Flex Focus 400 US machine and an [...] PM EDT Office Visit Neurosurgery at 10 [place] [address] Mary Hart MD [address] [place] [address] Irena Pierre PA 10 [place] [address] documented as of this encounter Visit Diagnoses Diagnosis Type 2 diabetes, controlled, with neuropathy Type II or unspecified type diabetes mellitus with neurological manifestations, not stated as uncontrolled Delano's thyroiditis Chronic lymphocytic thyroiditis Vitamin D deficiency Unspecified vitamin D deficiency Thyroid nodule Nontoxic uninodular goiter documented in this encounter Care Teams Transmissions Systems Operator Relationship Specialty Start Date End Date Steven Jeffries MD [address] [place] [address] PCP - General General Internal Medicine 02/12/2101/17 documented as of this encounter
--- OUTSIDE RECORDS SUMMARY | 2024-06-25 11:06 | XMS_ITS | Encounter Summary ---
Author Organization [facility] Address [facility] [place] [address] Care Team Providers Care Ultrasound Sonographer Name Role Phone Steven Jeffries MD Primary Care Provider [phone] Reason for Visit * Reason Onset Date Comments Medication Refill 05/30/2021 Encounter Details Date Type Department Care Team (Late st Contact Info) Description 05/30/2021 Ref[place] [address] Nimesh Alicia MD [facility] [place] [address] Social History Tobacco Use Types Packs/Day Years [...] 1:15 PM EDT [facility] [address] [place] [address] Mary Hart MD [address] [place] [address] Irena Pierre PA [address] [place] [address] documented as of this encounter Visit Diagnoses Not on filedocumented in this encounter Care Teams Ultrasound Sonographer Relationship Specialty Start Date End Date Steven Jeffries MD [address] [place] [address] PCP - General General Internal Medicine 02/12/2101/17 documented as of this encounter
--- OUTSIDE RECORDS SUMMARY | 2024-06-25 11:06 | XMS_ITS | Encounter Summary ---
[place] [address] Care Team Providers Care Emergency Room Technician Name Role Phone Francy Lowe APRN Primary Care Provider + Encounter Details Date Type Department Care Team (Late Contact Info) Description 11/23/2020 [place] [address] Tanya Mccullough Social History Tobacco Use Types [...] at [facility] [address] [place] [address] Mary Hart MD [address] [address] Irena Pierre PA [address] [place] [address] documented as of this encounter Visit Diagnoses Not on filedocumented in this encounter Care Teams Emergency Room Technician Relationship Specialty Start Date End Date Francy Lowe APRN PCP - General Family Medicine 10/19/19 02/11/21 documented as of this encounter
--- OUTSIDE RECORDS SUMMARY | 2024-06-25 11:06 | XMS_ITS | Encounter Summary ---
Author Organization [facility] [place] [address] Care Team Providers Care Job Developer For Deaf Adults Name Role Phone Steven Jeffrise MD Primary Care Provider Reason for Visit * Reason Comments Medication Refill Encounter Details Date Type Department Care Team (Late st Contact Info) Description 07/02/2021 Ref[place] [address] Nimesh Alicia MD [facility] [place] [address] Social History Tobacco Use Types Packs/Day Years [...] at [facility] [address] [place] [address] Mary Hart MD [address] [place] [address] Irena Pierre PA [address] [place] [address] documented as of this encounter Visit Diagnoses Not on filedocumented in this encounter Care Teams Job Developer For Deaf Adults Relationship Specialty Start Date End Date Steven Jeffries MD [address] [place] [address] PCP - General General Internal Medicine 02/12/2101/17 documented as of this encounter
--- OUTSIDE RECORDS SUMMARY | 2024-06-25 11:06 | XMS_ITS | Encounter Summary ---
Author Organization [facility] [place] [address] Care Team Providers Care School Coordinator Name Role Phone Francy Lowe APRN Primary Care Provider + Reason for Visit * Reason Comments Medication Refill Encounter Details Date Type Department Care Team (Late st Contact Info) Description 10/13/2020 [place] [address] Marta Rivera MD [facility] [place] [address] Social History Tobacco Use Types Packs/Day Years [...] Visit Neurosurgery at [facility] [address] [place] [address] Mary Hart MD [address] [place] [address] [place] [address] documented as of this encounter Visit Diagnoses Not on filedocumented in this encounter Care Teams School Coordinator Relationship Specialty Start Date End Date Francy Lowe APRN PCP - General Family Medicine 10/19/19 02/11/21 documented as of this encounter
--- OUTSIDE RECORDS SUMMARY | 2024-06-25 11:06 | XMS_ITS | Encounter Summary ---
Author Organization [facility] Address [facility] [place] [address] Care Team Providers Care Roadway Engineer Name Role Phone Steven Jeffries MD Primary Care Provider Reason for Visit * Reason Comments Medication Refill Encounter Details Date Type Department Care Team (Late st Contact Info) Description 05/29/2021 Ref[place] [address] Marta Rivera MD [facility] [place] [address] Type 2 diabetes, controlled, with neuropathy Social [...] PM EDT Office Visit [facility]surgery at [facility] [address] [place] [address] Mary Hart MD [address] [place] [address] Irena Pierre PA [address] [place] [address] documented as of this encounter Visit Diagnoses Diagnosis Type 2 diabetes, controlled, with neuropathy Type II or unspecified type diabetes mellitus with neurological manifestations, not stated as uncontrolled documented in this encounter Care Teams Roadway Engineer Relationship Specialty Start Date End Date Steven Jeffries MD [address] [place] [address] PCP - General General Internal Medicine 02/12/2101/17 documented as of this encounter
--- OUTSIDE RECORDS SUMMARY | 2024-06-25 11:06 | XMS_ITS | Encounter Summary ---
[place] [address] Care Team Providers Care Manpower Development Specialist Manager Name Role Phone Francy Lowe APRN Primary Care Provider + Encounter Details Date Type Department Care Team (Late st Contact Info) Description 09/12/2020 Telephone [place] [address] Danielle Kimbrough Social History Tobacco Use Types [...] - 09/12/2020 8:19 AM EDT Danielle Mills [id number] Diagnosis/Indication: constipation 1. Have you ever had a/an Colonoscopy before? Yes: Date @ 51 in [place] If yes, did you have any problems [...] Neurosurgery at [facility] [address] [place] [address] Mary Hart MD [address] [place] [address] Irena Pierre PA [address] [facility] [address] documented as of this encounter Visit Diagnoses Not on filedocumented in this encounter Care Teams Manpower Development Specialist Manager Relationship Specialty Start Date End Date Francy Lowe APRN PCP - General Family Medicine 10/19/19 02/11/21 documented as of this encounter
--- OUTSIDE RECORDS SUMMARY | 2024-06-25 11:06 | XMS_ITS | Encounter Summary ---
Author Organization [facility] Address [facility] [place] [address] Care Team Providers Care Senior Electrical Project Manager Name Role Phone Steven Jeffries MD Primary Care Provider Reason for Visit * Reason Comments Medication Refill Encounter Details Date Type Department Care Team (Late st Contact Info) Description 07/07/2021 Refill [place] [address] Marta Rivera MD [facility] [place] [address] Type 2 diabetes, controlled, with neuropathy Social [...] EDT [facility] [address] [place] [address] Mary Hart MD [address] [place] [address] Irena Pierre PA [address] [place] [address] documented as of this encounter Visit Diagnoses Diagnosis Type 2 diabetes, controlled, with neuropathy Type II or unspecified type diabetes mellitus with neurological manifestations, not stated as uncontrolled documented in this encounter Care Teams Senior Electrical Project Manager Relationship Specialty Start Date End Date Steven Jeffries MD [address] [place] [phone] PCP - General General Internal Medicine 02/12/2101/17 documented as of this encounter
--- OUTSIDE RECORDS SUMMARY | 2024-06-25 11:06 | XMS_ITS | Encounter Summary ---
Author Organization [facility] Address [facility] [place] [address] Care Team Providers Care Bookkeeper Name Role Phone Steven Jeffries MD Primary Care Provider [phone] Reason for Visit * Reason Onset Date Comments Medication Refill 07/02/2021 Encounter Details Date Type Department Care Team (Late st Contact Info) Description 07/02/2021 [place] [address] Nimesh Alicia MD [facility] [place] [address] Social History Tobacco Use Types Packs/Day Years [...] Neurosurgery at [facility] [address] [place] [address] Mary Hart MD [address] [address] Irena Pierre PA [address] [place] [address] documented as of this encounter Visit Diagnoses Not on filedocumented in this encounter Care Teams Bookkeeper Relationship Specialty Start Date End Date Steven Jeffries MD [address] [place] [address] PCP - General General Internal Medicine 02/12/2101/17 documented as of this encounter
--- OUTSIDE RECORDS SUMMARY | 2024-06-25 11:06 | XMS_ITS | Encounter Summary ---
[place] [address] Care Team Providers Care Medical Donation Professional Name Role Phone Francy Lowe APRN Primary Care Provider + Encounter Details Date Type Department Care Team (Late st Contact Info) Description 03/08/2020 Telephone [place] [address] Sergio Jasmine Social History Tobacco Use Types [...] 1:15 PM EDT Office Visit Neurosurgery at [facility] [place] [phone] Mary Hart MD [address] [place] [address] Irena [place] [address] documented as of this encounter Visit Diagnoses Not on filedocumented in this encounter Care Teams Medical Donation Professional Relationship Specialty Start Date End Date Francy Lowe APRN PCP - General Family Medicine 10/19/19 02/11/21 documented as of this encounter
--- OUTSIDE RECORDS SUMMARY | 2024-06-25 11:06 | XMS_ITS | Encounter Summary ---
[place] [address] Care Team Providers Care Ribber Name Role Phone Francy Lowe APRN Primary Care Provider + Reason for Visit * Reason Onset Date Comments Follow-up 03/10/2020 tobacco treatmen t Encounter Details Date Type Department Care Team (Late st Contact Info) Description 03/10/2020 Telephone [place] [phone] Arnaud Teague, RN Follow-up (tobacco treatment) Social [...] for Call: 1-month follow-up for Tobacco Treatment [facility] Arnaud Teague, MSN, RN-BC, [facility] Tobacco Staff Nurse Midwife [facility] Pager #[phone] documented in this encounter Plan of Treatment Upcoming Encounters Date Type Department Care Team (Late st Contact Info) Description 07/20/2024 1:15 PM EDT Office Visit Neurosurgery at [facility] [address] [place] [address] Mary Hart MD [address] [place] [address] Irena Pierre PA [address] [place] [address] documented as of this encounter Visit Diagnoses Not on filedocumented in this encounter Care Teams Ribber Relationship Specialty Start Date End Date Francy Lowe APRN PCP - General Family Medicine 10/19/19 02/11/21 documented as of this encounter
--- OUTSIDE RECORDS SUMMARY | 2024-06-25 11:06 | XMS_ITS | Encounter Summary ---
Author Organization [facility] [place] [address] Care Team Providers Care Edge Finisher Name Role Phone Steven Jeffries MD Primary Care Provider Reason for Visit * Reason Comments Right Knee Pain S/P TKA dos September 2009 * Consultation (Urgent) - Closed Specialty Diagnoses / Procedures Referred By Jasson mendoza Referred To Contact Orthopaedics Diagnoses Pain in right knee Steven Jeffries MD [address] [place] [address] [facility] [address] [place] [id number] Referral ID Status Reason Start Date Expiration Date V isits Requested Visits Authorized [id number] Closed Consult, Test & Treat PCP Updated and/or Approved 02/09/2021 02/09/2022 6 6 Encounter Details Date Type Department Care Team (Late st Contact Info) Description 02/12/2021 10:45 AM EDT Office Visit Orthopaedics at [address] [address] Elvin Whiting MD [address] [place] [address] [place] [address] Presence of right artificial knee joint; Primary [...] with ambulation IMAGING: X-Ray taken today at [facility], were reviewed with the patient and [...] office were reviewed anddiscussed with the patient. [id number] treatment options were reviewed as well Cc: Francy Lowe APRN documented in this encounter Plan of Treatment Upcoming Encounters Date Type Department Care Team (Late st Contact Info) Description 07/20/2024 1:15 PM EDT Office Visit Neurosurgery at [facility] [address] [place] [address] Mary Hart MD [address] [place] [address] Irena Pierre PA [address] [place] [address] documented as of this encounter Visit Diagnoses Diagnosis Presence of right artificial knee joint Knee joint replacement by other means Primary osteoarthritis of right knee Primary localized osteoarthrosis, lower leg documented in this encounter Care Teams Edge Finisher Relationship Specialty Start Date End Date Steven Jeffries MD [address] [place] [id number] PCP - General General Internal Medicine 02/12/2101/17 documented as of this encounter
--- OUTSIDE RECORDS SUMMARY | 2024-06-25 11:06 | XMS_ITS | Encounter Summary ---
Author Organization [facility] Address [facility] [place] [address] Care Team Providers Care Sap Specialist Name Role Phone Francy Lowe APRN Primary Care Provider + Encounter Details Date Type Department Care Team (Late st Contact Info) Description 08/29/2020 8:30 AM EDT Office [place] [address] Nimesh Alicia MD [facility] [place] [address] Constipation, unspecified constipation type Social History Tobacco [...] 2.49) performed by Nimesh Alicia MD at [facility] ENDOSCOPY ??? RECTOCELE REPAIR 2014 Dr. Boo @ [facility] ??? SHOULDER SURGERY Left 06/05/2017 [...] and follow up afterwards. Nimesh Alicia MD Francy Lowe APRN [address] [place] [id number] No referring provider defined for this encounter. documented in this encounter Plan of Treatment Upcoming Encounters Date Type Department Care Team (Late st Contact Info) Description 07/20/2024 1:15 PM EDT Office Visit Neurosurgery at [facility] [address] [place] [address] Mary Hart MD [address] [place] [address] Irena Pierre PA 10 [place] [address] Scheduled Orders Name Type Priority Associated Diagnoses Orde r Schedule ENDOSCOPY CASE REQUEST: COLONOSCOPY, DIAGNOSTIC Procedures Routine Constipation, unspecified constipation type Ordered: 08/29/2020 documented as of this encounter Visit Diagnoses Diagnosis Constipation, unspecified constipation type documented in this encounter Care Teams Sap Specialist Relationship Specialty Start Date End Date Francy Lowe APRN PCP - General Family Medicine 10/19/19 02/11/21 documented as of this encounter
--- OUTSIDE RECORDS SUMMARY | 2024-06-25 11:06 | XMS_ITS | Encounter Summary ---
Author Organization [facility] Address [facility] [place] [address] Care Team Providers Care Joiner Apprentice Name Role Phone Steven Jeffries MD Primary Care Provider [phone] Reason for Visit * Reason Comments Medication Refill Encounter Details Date Type Department Care Team (Late st Contact Info) Description 04/11/2021 Refill [place]ocr[place] [address] Marta Rivera MD [facility] [place] [address] Type 2 diabetes, controlled, with neuropathy Social [...] Neurosurgery at [facility] [address] [place] [address] Mary Hart MD [address] [place] [address] Irena Pierre PA [address] [place] [address] documented as of this encounter Visit Diagnoses Diagnosis Type 2 diabetes, controlled, with neuropathy Type II or unspecified type diabetes mellitus with neurological manifestations, not stated as uncontrolled documented in this encounter Care Teams Joiner Apprentice Relationship Specialty Start Date End Date Steven Jeffries MD [address] [address] PCP - General General Internal Medicine 02/12/2101/17 documented as of this encounter
--- OUTSIDE RECORDS SUMMARY | 2024-06-25 11:06 | XMS_ITS | Encounter Summary ---
Author Organization [facility] [place] [address] Care Team Providers Care Gas And Oil Checker Name Role Phone Francy Lowe APRN Primary Care Provider + Reason for Visit * Reason Comments Medication Refill Encounter Details Date Type Department Care Team (Late st Contact Info) Description 08/29/2020 Refill [place] [address] Marta Rivera MD [facility] [place] [address] Type 2 diabetes, controlled, with neuropathy Social [...] PM EDT Office Visit Neurosurgery at [facility] [address] [place] [address] Mary Hart MD [address] [place] [address] Irena Pierre PA [address] [place] [place] [address] documented as of this encounter Visit Diagnoses Diagnosis Type 2 diabetes, controlled, with neuropathy Type II or unspecified type diabetes mellitus with neurological manifestations, not stated as uncontrolled documented in this encounter Care Teams Gas And Oil Checker Relationship Specialty Start Date End Date Francy Lowe APRN PCP - General Family Medicine 10/19/19 02/11/21 documented as of this encounter
--- OUTSIDE RECORDS SUMMARY | 2024-06-25 11:06 | XMS_ITS | Encounter Summary ---
Author Organization [facility] [place] [address] Care Team Providers Care Data Warehouse Architect Name Role Phone Brysharondaana luisaRadhaana luisa Carpenter APRN Primary Care Provider + Encounter Details Date Type Department Care Team (Late st Contact Info) Description 12/22/2020 Orders [place] [address] Nimesh Alicia MD [facility] [place] [address] Constipation, unspecified constipation type Social History Tobacco [...] PM EDT Office Visit Neurosurgery at [address] [place] [address] Mary Hart [place] [address] Irena Pierre PA [address] [place] [address] documented as of this encounter Visit Diagnoses Diagnosis Constipation, unspecified constipation type documented in this encounter Care Teams Data Warehouse Architect Relationship Specialty Start Date End Date Francy Lowe APRN PCP - General Family Medicine 10/19/19 02/11/21 documented as of this encounter
--- OUTSIDE RECORDS SUMMARY | 2024-06-25 11:06 | XMS_ITS | Encounter Summary ---
[place] [address] Care Team Providers Care Luncheonette Manager Name Role Phone Steven Jeffries MD Primary Care Provider Encounter Details Date Type Department Care Team (Late st Contact Info) Description 02/09/2021 Orders Only Orthopaedics at [address] [address] Elvin Whiting MD [address] [facility] [place] [address] Presence of right artificial knee joint; Primary [...] EDT Office Visit Neurosurgery at [facility] [address] [place] [address] Mary Hart MD [address] NEUROSURGERY [place], [place] [address] Irena Pierre PA [address] [place] [address] documented as of this encounter Results * [...] who have questions please contact the health resident caregiver that requested your imaging first. ? Electronically signed by: Gloria Davidson MD, [facility] ([phone]), at 02/12/2021 11:58 AM Narrative 02/12/2021 11:58 [...] patients who have questions please contactthe health resident caregiver that requested your imaging first. Elvin Whiting [...] leg documented in this encounter Care Teams Luncheonette Manager Relationship Specialty Start Date End Date Steven Jeffries MD [address] [place] [address] PCP - General General Internal Medicine 02/12/2101/17 documented as of this encounter
--- OUTSIDE RECORDS SUMMARY | 2024-06-25 11:06 | XMS_ITS | Encounter Summary ---
Author Organization [facility] [place] [address] Care Team Providers Care Bottling Line Operator Name Role Phone BryRadha vlilagranana luisa Carpenter APRN Primary Care Provider + Reason for Visit * Reason Onset Date Comments Medication Refill 12/25/2020 Encounter Details Date Type Department Care Team (Late st Contact Info) Description 12/25/2020 Refill [place] [address] Nimesh Alicia MD [facility] [place] [address] Social History Tobacco Use Types Packs/Day Years [...] Visit Neurosurgery at [facility] [address] [place] [address] Mary Hart MD [address] [place] [address] Irena Pierre PA [address] [place] [address] documented as of this encounter Visit Diagnoses Not on filedocumented in this encounter Care Teams Bottling Line Operator Relationship Specialty Start Date End Date Francy Lowe APRN PCP - General Family Medicine 10/19/19 02/11/21 documented as of this encounter
--- OUTSIDE RECORDS SUMMARY | 2024-06-25 11:06 | XMS_ITS | Encounter Summary ---
[place] [address] Care Team Providers Care Literacy Teacher Name Role Phone Francy Lowe APRN Primary Care Provider + Reason for Visit * Reason Onset Date Comments Follow-up 08/07/2020 Tobacco Treatmen t Encounter Details Date Type Department Care Team (Late st Contact Info) Description 08/07/2020 Telephone [place] [address] Arnaud Teague, RN Follow-up (Tobacco [...] for Call: 6-month follow-up for Tobacco Treatment [facility] Arnaud Teague, MSN, RN-BC, [facility]TP Tobacco Elementary Education Tutor [facility] Pager #[phone] documented in this encounter Plan of Treatment Upcoming Encounters Date Type Department Care Team (Late st Contact Info) Description 07/20/2024 1:15 PM EDT Office Visit Neurosurgery at [facility] [address] [place] [address] Mary Hart MD 10 [facility] [place] [address] Irena Pierre PA [address] [facility] [place] [address] documented as of this encounter Visit Diagnoses Not on filedocumented in this encounter Care Teams Literacy Teacher Relationship Specialty Start Date End Date Francy Lowe APRN PCP - General Family Medicine 10/19/19 02/11/21 documented as of this encounter
--- OUTSIDE RECORDS SUMMARY | 2024-06-25 11:06 | XMS_ITS | Encounter Summary ---
[place] [address] Care Team Providers Care Customizer Name Role Phone Steven Jeffries MD Primary Care Provider [phone] Encounter Details Date Type Department Care Team (Latest Contact Info) Description 02/12/2021 10:35 AM EDT Ancillary Procedure XRay at [address] [address] Elvin Whiting MD [address] [place] [address] [place] [address] Presence of right artificial knee joint; Primary [...] Visit Neurosurgery at [facility] [address] [place] [address] Mary Hart MD [address] [place] [address] Irena Pierre PA [address] [place] [address] documented as of this encounter Procedures Procedure [...] who have questions please contact the health ostomy care nurse that requested your imaging first. ? Electronically signed by: Gloria Davidson MD, [facility] ([phone]), at 02/12/2021 11:58 AM Narrative 02/12/2021 11:58 [...] patients who have questions please contactthe health ostomy care nurse that requested your imaging first. Electronically signed by: Gloria Davidson MD, [facility]([phone]), at 02/12/2021 11:58 AM Elvin Whiting MD IMG DX ORDERABLES documented in this encounter Visit Diagnoses Diagnosis Presence of right artificial knee joint Knee joint replacement by other means Primary osteoarthritis of right knee Primary localized osteoarthrosis, lower leg documented in this encounter Care Teams Customizer Relationship Specialty Start Date End Date Steven Jeffries MD [address] [place] [address] PCP - General General Internal Medicine 02/12/2101/17 documented as of this encounter
--- OUTSIDE RECORDS SUMMARY | 2024-06-25 11:06 | XMS_ITS | Encounter Summary ---
[place] [address] Care Team Providers Care Clinical Laboratory Aide Name Role Phone Francy Lowe APRN Primary Care Provider + Reason for Referral * Consultation (Routine) - Specialty Diagnoses / Procedures Referred By Jasson mendoza Referred To Contact Cardiac Rehabilitation Diagnoses Non-ST elevation myocardial infarction (NSTEMI) Rell Gutierrez MD [address] [place] [address] Cardiac Rehab, [address] [place] [address] Referral ID Status Reason Start Date Expiration Date V isits Requested Visits Authorized [id number] Consult, Test & Treat 02/09/2020 08/07/2020 36 36 Reason for Visit * Auth/Cert Specialty Diagnoses / Procedures Referred By Jasson mendoza Referred To Contact Diagnoses NSTEMI (non-ST elevated myocardial infarction) nstemi Referral ID Status Reason Start Date Expiration Date Visits Re quested Visits Authorized [id number] 1 1 Encounter Details Date Type Department Care Team (Latest Contact Info) Description 02/07/2020 6:06 AM EDT - 02/09/2020 12:30 PM EDT Hospital [place] [id number] Rell Gutierrez MD Non-ST elevation myocardial infarction [...] Danielle Mills Patient Age: 59 y.o. Language: Greenlandic Race: White Ethnicity: Not nor Admit date: [...] cough, leg swelling. No palpitations. ?? At [facility] starting 9 pm, VSS stable 113/73 HR 85 bpm, RR 19 Questionable CLEMENTINA in V1-V2. Troponin 0.24, lipase 117 CT abdomen/plevis reportedly unremarkable. Pt is s/p CCY She received 4mg IV morphine , Zofran She was started on Heparin and NTG drip. Received ASA 324mg @ 1:32 am at [facility] Plavix 300mg @ 1:55am and then 300mg @2:21am. Consulted with Cards fellow at [facility] and decided to transfer. Hospital Course: #NSTEMI s/p PCI with JEANETH to LAD, LPA and LPL1 Admitted to the cardiology service. The patient was taken to the manager labor relations and noted to have 3 vessel disease. [...] priority for the procedure was Emergent. The [facility] indication for the procedure was NSTE-ACS. LVEF [...] appointments: During 8am-5pm Friday through Friday call [phone] to speak with a nurse in the cardiology clinic All other times call [phone] and ask to speak to the exercise equipment specialist examination supervisor. Follow up Appointments: ?? Francy Lowe PCP on Friday02/21/20 @ 2:30pm Dr. Carlos Jenkins ([facility] Cardiology) on 03/02/20 @ 2:45pm Future Appointments Date Time Provider Department Center 03/07/2020 10:00 AM Marta Rivera MD [facility] PCP: Francy Lowe APRN at [phone] Your Inpatient Doctor(s) at [facility]: Rell Gutierrez MD - Attending physician Your Primary Care Provider: Francy Lowe APRN [address] / [place] [address] For questions regarding issues relating to your hospitalization on the Hospital Medicine Service, please contact your inpatient physician through the [facility] Senior Mechanical Estimator [phone]. Issues after hours and on weekends will be handled by the Hospitalist staff on-call. General Instructions None Future Appointments and Orders Future Appointments and Orders Future Appointments Provider Department Dept Phone 03/07/2020 10:00 AM Marta Rivera MD Endocrinology at [facility] Arrive at: Home [phone] Please do not come in for this visit. Your provider will call you at the number you provided. Future Orders Complete By Expires Referral to Cardiac Rehab [[id number] Custom] As directed Process Instructions: If no progress note charted, please enter Clinical details in comments. Scheduling Instructions: Questions: My question or request is: NSTEMI, PCI- CR at [facility] Discharge References/Attachments None documented in this [...] appointments: During 8am-5pm Friday through Friday call [phone] to speak with a nurse in the cardiology clinic All other times call [phone] and ask to speak to the exercise equipment specialist examination supervisor. Follow up Appointments: ?? COCO Staley on Friday02/21/20 @ 2:30pm Dr. Carlos Jenkins ([facility] Cardiology) on 03/02/20 @ 2:45pm Future Appointments Date Time Provider Department Center 03/07/2020 10:00 AM Marta Rivera MD [facility] PCP: Francy Lowe APRN at [phone] Your Inpatient Doctor(s) at [facility]: Rell Gutierrez MD - Attending physician Your Primary Care Provider: Francy Lowe APRN [address] / [facility] [place] [address] For questions regarding issues relating to your hospitalization on the Hospital Medicine Service, please contact your inpatient physician through the [facility] Senior Mechanical Estimator [phone]. Issues after hours and on weekends will [...] that she works with on this at [facility]. Also states that she is on a financial program at [facility]. CM encouraged patient to call the financial assistance number provided on the brochure for screening and to discuss the bill from this hospitalization to determine what could potentially be used towards her Medicaid spend down as well. Patient verbalized understanding and denies any further questions or concerns at this time. CM updated MANDREL CLEANER and completed consult that was placed for social work re: financial concerns. Clarisa Rees RN, MSN Moisture Tester - Cardiology Office of Care Management Pager: [phone] Work * Rell Gutierrez MD - 02/09/2020 7:26 AM EDT Inpatient Cardiology Progress Note Patient Name: Danielle Mills Date of Admission: 02/07/2020 ( Hospital Day 2 days ) Service: S2 ID: Danielle Mills 59 y/o F with HTN, DM, dyslipidemia, hypothyroidism, obesity/BEN was transferred from for NSTEMI. Cardiac cath this AM showed [...] below. Electronically signed by: Trace Lopez MD, [facility] ([phone]), at 02/08/2020 3:54 AM Cardiac Catheterization Final Result XR Chest One View Final Result Findings suggestive of mild volume overload without kuldeep pulmonary edema. Thank you for letting us participate in the care of this patient. For questions regarding this report, please contact the number below. Electronically signed by: Varghese Richmond MD, [facility] ([phone]), at 02/07/2020 9:53 AM Cardiac Catheterization Final [...] home Maria Bolaños MD PGY1 Cardiology S2 #[id number] CARDIOLOGY ATTENDING NOTE Patient: Danielle Mills Date [...] anterior ST-T wave changes. Went urgently to manager labor relations due to ongoing pain on 02/06 - 3VD including CONSUMER ATTORNEY RCA; IABP placed due to ongoing pain. [...] Rell Gutierrez MD, MPH, RPVI, FACC Pager [phone] Cardiovascular Hoe RunnerTicket Chopper [place] [address] * Rell Gutierrez MD - 02/08/2020 7:04 AM EDT Inpatient Cardiology Progress Note Patient Name: Danielle Mills Date of Admission: 02/07/2020 ( Hospital Day 1 day ) Service: S2 ID: Danielle Mills 59 y/o F with HTN, DM, dyslipidemia, hypothyroidism, obesity/BEN was transferred from for NSTEMI. Cardiac cath this AM showed [...] below. Electronically signed by: Trace Lopez MD, [facility] ([phone]), at 02/08/2020 3:54 AM Cardiac Catheterization Final Result XR Chest One View Final Result Findings suggestive of mild volume overload without kuldeep pulmonary edema. Thank you for letting us participate in the care of this patient. For questions regarding this report, please contact the number below. Electronically signed by: Varghese Richmond MD, [facility] ([phone]), at 02/07/2020 9:53 AM Cardiac Catheterization Final [...] floor Maria Bolaños MD PGY1 Cardiology S2 #[id number] CARDIOLOGY ATTENDING NOTE Patient: Danielle Mills Date [...] anterior ST-T wave changes. Went urgently to manager labor relations due to ongoing pain on 02/06 - 3VD including CONSUMER ATTORNEY RCA; IABP placed due to ongoing pain. [...] Dr. Bolaños. Rell Gutierrez MD, MPH, RPVI, [facility] Pager [phone] Cardiovascular Hoe RunnerTicket Chopper [place] [address] * JatinderashuCarmella - 02/07/2020 9:02 PM EDT [...] Carmella Alexander MD, PGY-2 Cardiology S1/S2, Pager [phone] 02/07/2020 * Ney Sylvester MD - 02/07/2020 [...] AM EDT 0630 Pt admitted for [facility] with c/o chest pain. Pt states [...] Lowe APRN Presenting Diagnosis/Chief Complaint: Transfer from with [place]I/[place]. Active Problem List: Active Hospital [...] fever, cough, leg swelling. No palpitations. At [facility] starting 9 pm, VSS stable 113/73 HR 85 bpm, RR 19 Questionable CLEMENTINA in V1-V2. Troponin 0.24, lipase 117 CT abdomen/plevis reportedly unremarkable. Pt is s/p CCY She received 4mg IV morphine , Zofran She was started on Heparin and NTG drip. Received ASA 324mg @ 1:32 am at [facility] Plavix 300mg @ 1:55am and then 300mg @2:21am. Consulted with Cards fellow at [facility] and decided to transfer. Personal and social [...] 2.49) performed by Nimesh Alicia MD at [facility] ENDOSCOPY ??? RECTOCELE REPAIR 2014 Dr. [...] file Gets together: Not on file Attends amish service: Not on file Active member of [...] Received ASA 324mg @ 1:32 am at [facility] -Plavix 300mg @ 1:55am and [...] attempt. Thank you. Arnaud Teague, MSN, RN-, [facility] Tobacco Scrap Drop Operator [facility] Pager #[phone] * Consult Note - Chelsey Beltre RN [...] in an outpatient cardiac rehabilitation program at was discussed. Patient agrees to a referral to this program. The referral will be sent at discharge and the patient should be contacted by the Program within 1- 2 weeks from discharge. * Plan of Care - Maribel Babcock RN - 02/08/2020 6:02 PM EDT Problem: Patient Care Overview Goal: Plan of Care Review Outcome: Ongoing (Interventions Implemented as Appropriate) 02/08/20 0802/08/20 1997 Plan of Care Review Progress -- improving [...] reinforcement provided * Initial Assessments - Clarisa Rese RN - 02/08/2020 6:12 AM EDT Office of Care Management Initial Assessment Clarisa Rees RN reviewed record and discussed patient with Care Team. Source of Information: Source: (chart reviewed), team, bedside nurse and medical record Introduced self/reviewed role; services accepted. Reason for Hospitalization: Reason for Admission as Stated by Patient: chest pain/NSTEMI. Transferred from Last COVID test date and time: 02/07/20 [...] spouse would be surrogate decision maker per [place] surrogate decision making law. (Only good for 90 days) Any patient receiving care at [facility] must abide by [place] law. The hierarchy for surrogate decision making [...] (i) The agent with financial power of ip technology transactions attorney or a conservator appointed in accordance [...] Home Address Listed as: [address] [place] [address] Social & Family Supports: Extended Emergency Contact Information Primary Emergency Contact: Andrés Mills Address: [address] [place] [address] [employer] Relation: Spouse Community Resources being provided [...] Secondary Insurance: N/A Prescription Coverage: Preferred Pharmacy: [id number] - [place] - [address] [place] [address] [id number] [place] - [address] [facility] [address] [facility] - [place], [place] - [address] [facility] [address] Primary Care Provider: Francy Lowe APRN [phone] Patient/Caregiver Goals of Treatment: DC home Potential [...] service for NSTEMI as a transfer from . Plan: A member of the Care Management team will continue to monitor progress, follow for continuityof care and assist with transition of care planning. Clarisa Rees, RN, MSN, compliance review specialist Office of Care Management Pager: [phone] Work * Brief Op Note - Todd Garcia MD - 02/07/2020 3:26 PM EDT Images from the original note were not included. Preliminary Cardiac Catheterization Procedure Note: Patient Name: Danielle Mills : [id number] MR#: [id number] Case Date: 02/07/2020 Senior Mechanical Estimator: Surgeon(s) and Role: * Todd Garcia MD - Primary Preoperative diagnosis: ?CAD Postoperative diagnosis: *ASCVD * Procedure(s) performed: Stent insertion, coronary Access: left HOMICIDE SQUAD LIEUTENANT--> Perclosed A time-out was conducted prior to [...] Procedure Note: Patient Name: Danielle Mills : [id number] MR#: [id number] Case Date: 02/07/2020 Senior Mechanical Estimator: Surgeon(s) and Role: * Todd Garcia MD - Primary * David Vigil MD - Fellow Preoperative diagnosis: ASCVD Postoperative diagnosis: * ASCVD * Procedure(s) performed: [facility] Coronary angio IABP insertion Access: right radial--> TR band, right HOMICIDE SQUAD LIEUTENANT--> IABP inserted A time-out was conducted prior [...] in the past at the ED at for epigastric pain that had been negative for acute findings. Thispresentation she was found to have a slight troponin elevation and slight ST elevation in V1-V6 with t wave inversions. Cath this am showed multivessel disease including LAD, Circ and RCA. She was still having some chest pain on low dose nitro. An IABP was placed in the manager labor relations and she is being transferred to [facility]. She received 600mg of plavix this morning. [...] 2.49) performed by Nimesh Alicia MD at [facility] ENDOSCOPY ??? RECTOCELE REPAIR 2014 Dr. [...] issues/chronic pain. 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 Family- lives with Andrés and his mother. Illicit drug use- denies Religious- denies Family History: History reviewed. No pertinent [...] of Danielle Mills. Signed: JUAN PABLO [facility] Section of Cardiac Surgery Date: 02/07/2020 59 yo female who presents with stuttering FL, on plavix, anterior WMA. CAth shows a very tight proximal LAD stenosis, distal LCX disease, non-dominant RCA which is occluded. The distal LCX circulation is not a good target for bypass surgery. The RCA is not a target. The LAD is a good target. We could end up surgery with only a NAIR to the LAD. Right now on plavix, with an acute FL, on an IABP, with BMI 43 and [...] further details. Vik Justin MD 02/07/2020 Pager [phone] documented in this encounter Plan of Treatment Upcoming Encounters Date Type Department Care Team (Late st Contact Info) Description 07/20/2024 1:15 PM EDT Office Visit Neurosurgery at [facility] [address] [place] [address] Mary Hart MD [address] [facility] [place] [address] Irena Pierre PA [address] [facility] [place] [address] Scheduled Referrals Name Type Priority Associated Diagnoses [...] AM EDT CRP, ACUTE INFLAMMATION STAT 02/07/20 7:29 AM EDT HC VENIPUNCTURE STAT 02/07/2020 [...] (ABNORMAL) POCT Glucose (02/09/2020 6:55 AM EDT) [facility] Glucose, POC 228(H) 65 - 199 mg/dL [facility] Comment: Supplemental ranges: <140 mg/dL before meals <180 mg/dL all other times of the day Blood specimen (specimen) 02/09/2020 6:55 AM EDT 02/09/2020 6:55 AM EDT Rell Gutierrez MD POINT OF CARE TEST O RDERABLES [facility] [place] [address] * Differential, Automated (02/09/2020 3:34 AM EDT) Neutrophil % 67.7 % [facility] Neutrophil Absolute 5.30 1.70 - 6.10 x10(3)/[facility] Lymph % 20.9 % [facility] Lymphocytes Abs 1.6 0.9 - 3.2 x10(3)/[facility]ORY Monocyte % 9.2 % [facility] Monocyte Abs 0.7 0.3 - 0.9 x10(3)/[facility]OR[facility]ORY Eos % 1.5 % [facility] Eosinophils Abs 0.1 0.0 - 0.4 x10(3)/[facility] Basophil % 0.4 % [facility] Baso Absolute 0.0 0.0 - 0.1 x10(3)/[facility] Immature Gran % 0.30 % [facility] Comment: Immature granulocytes(IG's)percentage and absolute count will include metamyelocytes, myelocytes, and promyelocytes. Blood smears from CBCs yielding IG's will be scanned manually for concordance. If this scan disagrees with the automated IG or if promyelocytes are noted, a manual differential will be performed. Immature Gran Absolute 0.02 0.00 - 0.04 x10(3)/[facility] Blood specimen (specimen) 02/09/2020 3:34 AM EDT 02/09/2020 3:42 AM EDT Narrative Resulting Agency Comment Spec In Lab Maria Bolaños MD HEMATOLOGY ORDERABLE S [facility] [place] [address] * (ABNORMAL) Hemogram (02/09/2020 3:34 AM EDT) Pathologist [facility] White Blood Cell 7.8 4.0 - 9.5 x10(3)/[facility]ORAT[facility] Red Blood Cell 5.11 4.00 - 5.21 x10(6)/[facility] Hemoglobin 13.5 11.7 - 15.5 gm/dL [facility] Hematocrit 42.8 35.7 - 45.8 % [facility] Mean Cell Volume 83.8 82.6 - 94.4 fL [facility] Mean Cell Hemoglobin 26.4(L) 27.1 - 32.0 pg [facility] Mean Cell Hemoglobin Concentration 31.5(L) 31.7 - 35.0 gm/dL [facility] Platelet 168 145 - 357 x10(3)/mc L [facility] RDW Standard Deviation 43.8 37.0 - 46.0 fL [facility] RDW coefficient of variation 14.3(H) 11.5 - 14.1 % [facility] Mean Platelet Volume 11.5 7.6 - 12.9 fL [facility] NRBC% auto 0.0 % [facility] NRBC Absolute 0.000 0.000 - 0.000 x10(3)/mc L [facility] Blood specimen (specimen) 02/09/2020 3:34 AM EDT 02/09/2020 3:42 AM EDT Narrative Resulting Agency Comment Spec In Lab Maria Bolaños MD HEMATOLOGY ORDERABLE S Performing Organization Address City/[facility]/ZIP Co de Phone Number [facility] [place] [address] * Phosphorus (02/09/2020 3:34 AM EDT) Phosphorus 2.8 2.5 - 4.5 mg/dL [facility] Blood specimen (specimen) 02/09/2020 3:34 AM EDT 02/09/2020 3:42 AM EDT Narrative Resulting Agency Comment Spec In Lab Rell Gutierrez MD CHEMISTRY ORDERABLES Performing Organization Address City/[facility]/ZIP Co de Phone Number [facility] [place] [address] * Magnesium (02/09/2020 3:34 AM EDT) Magnesium 0.93 0.69 - 1.07 mmol/L [facility] Blood specimen (specimen) 02/09/2020 3:34 AM EDT 02/09/2020 3:42 AM EDT Narrative Resulting Agency Comment Spec In Lab Rell Gutierrez MD CHEMISTRY ORDERABLES [facility] [place] [address] * (ABNORMAL) Basic Metabolic Panel (non-fasting) (02/09/2020 3:34 AM EDT) Glucose 249(H) 65 - 199 mg/dL [facility] Comment:Diabetes: >=200 mg/d L plus symptoms Blood Urea Nitrogen 12 8 - 18 mg/dL [facility] Creatinine 0.78 0.70 - 1.20 mg/dL [facility] Sodium 138 135 - 145 mmol/L [facility] Potassium 3.8 3.5 - 5.0 mmol/L [facility] Comment: Please note: ??Patients with WBC >100,000 may have falsely elevated Potassium levels. ??For accurate Potassium quantification in these patients send serum separator tube (gold top) for subsequent determinations. ??Contact the Clinical Chemistry Laboratory if there are any questions. Chloride 100 98 - 107 mmol/L [facility] Carbon Dioxide 29 22 - 31 mmol/L [facility] Anion Gap 9 5 - 15 mmol/L [facility] Calcium 8.0(L) 8.5 - 10.5 mg/dL [facility] Est Glomerular Filtration Rate 84 >=60 mL/min/1. 73 m?? [facility] Comment: The eGFR was calculated using the CKD-EPI equation. As with all creatinine based estimates of kidney function, eGFR values calculated with the CKD-EPI equation are not accurate in patients with acute kidney failure, extremes of body mass or the acutely ill. http://Redbooth/DHMCnkf eGFR 97 >=60 mL/min/1. 73 m?? [facility] Comment: The eGFR was calculated using the CKD-EPI equation. As with all creatinine based estimates of kidney function, eGFR values calculated with the CKD-EPI equation are not accurate in patients with acute kidney failure, extremes of body mass or the acutely ill. http://[employer]bo[employer]/DHMCnkf Blood specimen (specimen) 02/09/2020 3:34 AM EDT 02/09/2020 3:42 AM EDT Narrative Resulting Agency Comment Spec In Lab Rell Gutierrez MD CHEMISTRY ORDERABLES Performing Organization Address [facility] Co de Phone Number [facility] [place] [address] * POCT Glucose (02/08/2020 8:56 PM EDT) Glucose, POC 145 65 - 199 mg/dL [facility] Comment: Supplemental ranges: <140 mg/dL before meals <180 mg/dL all other times of the day Blood specimen (specimen) 02/08/2020 8:56 PM EDT 02/08/2020 8:56 PM EDT Rell Gutierrez MD POINT OF CARE TEST O RDERABLES Performing Organization Address [facility] Co de Phone Number [facility] [place] [address] * POCT Glucose (02/08/2020 4:52 PM EDT) Glucose, POC 144 65 - 199 mg/dL [facility] Comment: Supplemental ranges: <140 mg/dL before meals <180 mg/dL all other times of the day Blood specimen (specimen) 02/08/2020 4:52 PM EDT 02/08/2020 4:52 PM EDT Rell Gutierrez MD POINT OF CARE TEST O RDERABLES Performing Organization Address [facility] Co de Phone Number [facility] [place] [address] * (ABNORMAL) POCT Glucose (02/08/2020 12:35 PM EDT) Glucose, POC 235(H) 65 - 199 mg/dL [facility] Comment: Supplemental ranges: <140 mg/dL before meals <180 mg/dL all other times of the day Blood specimen (specimen) 02/08/2020 12:35 PM EDT 02/08/2020 12:35 PM EDT Rell Gutierrez MD POINT OF CARE TEST O RDERABLES Performing Organization Address [facility] Co de Phone Number [facility] [place] [address] * (ABNORMAL) POCT Glucose (02/08/2020 9:38 AM EDT) Glucose, POC 296(H) 65 - 199 mg/dL [facility] Comment: Supplemental ranges: <140 mg/dL before meals <180 mg/dL all other times of the day Blood specimen (specimen) 02/08/2020 9:38 AM EDT 02/08/2020 9:38 AM EDT Rell Gutierrez MD POINT OF CARE TEST O RDERABLES Performing Organization Address [facility] Co de Phone Number [facility] [place] [address] * (ABNORMAL) POCT Glucose (02/08/2020 7:35 AM EDT) Glucose, POC 241(H) 65 - 199 mg/dL [facility] LABORATORY Comment: Supplemental ranges: <140 mg/dL before meals <180 mg/dL all other times of the day Blood specimen (specimen) 02/08/2020 7:35 AM EDT 02/08/2020 7:35 AM EDT Rell Gutierrez MD POINT OF CARE TEST O RDERABLES Performing Organization Address City/[facility]/ZIP Co de Phone Number [facility] [place] [address] * Differential, Automated (02/08/2020 4:01 AM EDT) Neutrophil % 68.7 % [facility] Neutrophil Absolute 5.45 1.70 - 6.10 x10(3)/[facility] LABORATORY Lymph % 21.1 % [facility] Lymphocytes Abs 1.7 0.9 - 3.2 x10(3)/[facility] LABORATORY Monocyte % 8.6 % [facility] Monocyte Abs 0.7 0.3 - 0.9 x10(3)/[facility] LABORATORY Eos % 0.8 % [facility] Eosinophils Abs 0.1 0.0 - 0.4 x10(3)/[facility] LABORATORY Basophil % 0.4 % [facility] Baso Absolute 0.0 0.0 - 0.1 x10(3)/[facility] LABORATORY Immature Gran % 0.40 % [facility] Comment: Immature granulocytes(IG's)percentage and absolute count will include metamyelocytes, myelocytes, and promyelocytes. Blood smears from CBCs yielding IG's will be scanned manually for concordance. If this scan disagrees with the automated IG or if promyelocytes are noted, a manual differential will be performed. Immature Gran Absolute 0.03 0.00 - 0.04 x10(3)/[facility] LABORATORY Blood specimen (specimen) 02/08/2020 4:01 AM EDT 02/08/2020 4:06 AM EDT Narrative Resulting Agency Comment Spec In Lab Kayleigh Crook MD HEMATOLOGY ORDERABLE S Performing Organization Address City/[facility]/ZIP Co de Phone Number [facility] [place] [address] * (ABNORMAL) Hemogram (02/08/2020 4:01 AM EDT) White Blood Cell 7.9 4.0 - 9.5 x10(3)/ L [facility] Red Blood Cell 5.11 4.00 - 5.21 x10(6)/ L [facility] Hemoglobin 13.5 11.7 - 15.5 gm/dL [facility] Hematocrit 42.6 35.7 - 45.8 % [facility] Mean Cell Volume 83.4 82.6 - 94.4 fL [facility] Mean Cell Hemoglobin 26.4(L) 27.1 - 32.0 pg [facility] Mean Cell Hemoglobin Concentration 31.7 31.7 - 35.0 gm/dL [facility] Platelet 189 145 - 357 x10(3)/[facility] LABORATORY RDW Standard Deviation 43.5 37.0 - 46.0 [facility] LABORATORY RDW coefficient of variation 14.3(H) 11.5 - 14.1 % [facility] Mean Platelet Volume 11.2 7.6 - 12.9 [facility] LABORATORY NRBC% auto 0.0 % [facility] NRBC Absolute 0.000 0.000 - 0.000 x10(3)/[facility] LABORATORY Blood specimen (specimen) 02/08/2020 4:01 AM EDT 02/08/2020 4:06 AM EDT Narrative Resulting Agency Comment Spec In Lab Kayleigh Crook MD HEMATOLOGY ORDERABLE S [facility] [place] [address] * (ABNORMAL) Phosphorus (02/08/2020 4:01 AM EDT) Phosphorus 1.9(L) 2.5 - 4.5 mg/dL [facility] Blood specimen (specimen) 02/08/2020 4:01 AM EDT 02/08/2020 4:06 AM EDT Narrative Resulting Agency Comment Spec In Lab Rell Gutierrez MD CHEMISTRY ORDERABLES [facility] [place] [address] * Magnesium (02/08/2020 4:01 AM EDT) Magnesium 0.91 0.69 - 1.07 mmol/L [facility] Blood specimen (specimen) 02/08/2020 4:01 AM EDT 02/08/2020 4:06 AM EDT Narrative Resulting Agency Comment Spec In Lab Rell Gutierrez MD CHEMISTRY ORDERABLES Performing Organization Address [facility] Co de Phone Number [facility] [place] [address] * (ABNORMAL) Basic Metabolic Panel (non-fasting) (02/08/2020 4:01 AM EDT) Glucose 247(H) 65 - 199 mg/dL [facility] Comment:Diabetes: >=200 mg/d L plus symptoms Blood Urea Nitrogen 8 8 - 18 mg/dL [facility] Creatinine 0.66(L) 0.70 - 1.20 mg/dL [facility] Sodium 138 135 - 145 mmol/L [facility] Potassium 4.4 3.5 - 5.0 mmol/L [facility] Comment: Please note: ??Patients with WBC >100,000 may have falsely elevated Potassium levels. ??For accurate Potassium quantification in these patients send serum separator tube (gold top) for subsequent determinations. ??Contact the Clinical Chemistry Laboratory if there are any questions. Chloride 102 98 - 107 mmol/L [facility] Carbon Dioxide 27 22 - 31 mmol/L [facility] Anion Gap 9 5 - 15 mmol/L [facility] Calcium 7.9(L) 8.5 - 10.5 mg/dL [facility] Est Glomerular Filtration Rate 97 >=60 mL/min/1. 73 m?? [facility] Comment: The eGFR was calculated using the CKD-EPI equation. As with all creatinine based estimates of kidney function, eGFR values calculated with the CKD-EPI equation are not accurate in patients with acute kidney failure, extremes of body mass or the acutely ill. http://[employer]/[facility] eGFR 113 >=60 mL/min/1. 73 m?? [facility] Comment: The eGFR was calculated using the CKD-EPI equation. As with all creatinine based estimates of kidney function, eGFR values calculated with the CKD-EPI equation are not accurate in patients with acute kidney failure, extremes of body mass or the acutely ill. http://[employer]/[facility] Blood specimen (specimen) 02/08/2020 4:01 AM EDT 02/08/2020 4:06 AM EDT Narrative Resulting Agency Comment Spec In Lab Rell Gutierrez MD CHEMISTRY ORDERABLES Performing Organization Address City/[facility]/ZIP Co de Phone Number [facility] [place] [address] * Potassium (02/07/2020 8:55 PM EDT) [facility] Potassium 3.7 3.5 - 5.0 mmol/L [facility] Comment: Please note: ??Patients with [...] Gutierrez MD CHEMISTRY ORDERABLES Performing Organization Address City/[facility]/ZIP Co de Phone Number [facility] [place] [address] * POCT Glucose (02/07/2020 8:48 PM EDT) [facility] Glucose, POC 183 65 - 199 mg/dL [facility] Comment: Supplemental ranges: <140 mg/dL before meals <180 mg/dL all other times of the day Blood specimen (specimen) 02/07/2020 8:48 PM EDT 02/07/2020 8:48 PM EDT Rell Gutierrez MD POINT OF CARE TEST O RDERABLES Performing Organization Address [facility] Co de Phone Number [facility] [place] [address] * Potassium (02/07/2020 5:10 PM EDT) [facility] Potassium 4.0 3.5 - 5.0 mmol/L [facility] Comment: Please note: ??Patients with [...] Address [facility] de Phone Number [facility] [place] [address] * (ABNORMAL) Troponin (02/07/2020 5:10 PM EDT) [facility] Troponin-T 0.27(H) 0.00 - 0.00 ng/mL [facility] Comment: The 99th percentile for Troponin T is less than 0.01 ng/mL, any detectable cTnT concentration using this assay should be considered elevated. According to the third universal definition of myocardial infarction the following criteria with a clinical presentation consistent with acute myocardial ischemia meets the diagnosis for a myocardial infarction ([place]). Detection of a rise and/or fall of cTnT, with at least one value greater than the 99th percentile (> or = 0.01) and with at least one of the following ?? Symptoms of ischemia ?? New or presumed new significant RS-rhigfyu-X wave (ST-T) changes or new left bundle [...] additional sample may be indicated. Reference: Third Gatzke Definition of Myocardial Infarction. Journal of the [place] [employer] 2012;60:1581-98 Blood specimen (specimen) 02/07/2020 5:10 PM EDT 02/07/2020 5:28 PM EDT Narrative Resulting Agency Comment Spec In Lab Vik Justin MD CHEMISTRY ORDER TOBI [facility] [place] [address] * XR Chest One View (02/07/2020 5:07 [...] ? Electronically signed by: Trace Lopez MD, [facility] ([phone]), at 02/08/2020 3:54 AM Narrative 02/08/2020 3:54 [...] below. Electronically signed by: Trace Lopez MD, [facility]([phone]), at 02/08/2020 3:54 AM Rell Gutierrez MD IMG DX ORDERABLES * POCT Glucose (02/07/2020 4:21 PM EDT) Glucose, POC 139 65 - 199 mg/dL [facility] Comment: Supplemental ranges: <140 mg/dL before meals <180 mg/dL all other times of the day Blood specimen (specimen) 02/07/2020 4:21 PM EDT 02/07/2020 4:21 PM EDT Rell Gutierrez MD POINT OF CARE TEST O RDERABLES [facility] [place] [address] * CARDIAC CATHETERIZATION (02/07/2020 3:21 PM EDT) Anatomical Region Laterality Modality Other Narrative 02/07/2020 4:29 PM EDT ?[facility] ? Cardiac Catheterization/Intervention Report ? Patient Name: Jarrett, Danielle ? Procedure Date: 02/07/2020 ? A #: [id number] ? Primary Physician: Todd Garcia ? Case #: [id number] ? File Name: [id number] ? Catheterization Order Number: [id number] ? [facility] ? Final Report [place], [place] ? Patient Name: ? Danielle Mills ? ID#: ?[id number] ? : ?1960 ? Procedure Date: ? [...] ?was designated as ASA Class III. The [facility] clinical frailty scale is 5: ?Mildly [...] procedure was Urgent. The indication for ?the manager labor relations visit is worsening angina. Chest pain symptom [...] dose administered prior to arrival in the manager labor relations. ?Recommended anti-platelet/anti-thrombotic regimen: ?Start aspirin 81 mg daily now and continue for indefinitely. ?Start clopidogrel 75 mg daily now and continue for 12 months then stop. ?These recommendations are made at the time of the intervention. Patient ?and provider preferences or a changing clinical situation may require ?modification of this regimen. Consult [facility] Interventional Cardiology for ?questions. ?The 1 year [...] against any medical treatment. Consult ?http://tools.acc.org/DAPTriskapp/#!/content/calculator/ or [facility] ?Interventional Cardiology for questions. ? Conclusions: ?* [...] Procedure Note Todd Garcia MD - 03/23/2020 [facility] Cardiac Catheterization/Intervention Report Patient Name: Danielle Mills Procedure Date: 02/07/2020 A #: [id number] Primary Physician: Todd Garcia Case #: [id number] File Name: [id number] Catheterization Order Number: [id number] [facility] FinalReport [place], [place] Patient Name: Danielle Mills ID#:[id number] :1960 Procedure Date: February 07, 2020 Case [...] was designated as ASA Class III. The [facility] clinical frailty scale is5: Mildly Frail. Diagnostic Tests: Prior Coronary Angiography: LV ejection fraction within 6 months is 30%. Electrocardiography: EKG was assessed by ECG. EKG was Abnormal. EKG showed T-wave inversions and other abnormality. Medications Prior to Procedure: Aspirin, Beta Fernando and Statin. Indications for Diagnostic Cath: The priority of the diagnostic procedure was Urgent. The indicationfor the manager labor relations visit is worsening angina. Chest pain symptomassessment [...] the lesion was dilated using a 3.00mm [id number] MM balloon with a maximum inflation pressure [...] dose administered prior to arrival in the manager labor relations. Recommended anti-platelet/anti-thrombotic regimen: Start aspirin 81 mg daily now and continue for indefinitely. Start clopidogrel 75 mg daily now and continue for 12 months thenstop. These recommendations are made at the time of the intervention.Patient and provider preferences or a changing clinical situation mayrequire modification of this regimen. Consult [facility] Interventional Cardiologyfor questions. The 1 year bleeding [...] or against any medical treatment.Consult http://tools.acc.org/DAPTriskapp/#!/content/calculator/ or [facility] Interventional Cardiology for questions. Conclusions: * Obstructive [...] SARS-CoV-2 RNA (Rapid) Not Detected Not Detected [facility] Comment: This result should be [...] using the Simplexa COVID-19 Direct Assay by [employer] as authorized by the FDA issued Emergency [...] Department of Pathology and Laboratory Medicine at [facility], certified under the Clinical Laboratory Improvement [...] Information for Healthcare Professionals (https://www.cdc.gov/coronavirus/2019-ncov/hcp/index.html). SARS-CoV-2 Source [employer] [facility]3] LABORATORY Nasopharyngeal swab (specimen) 02/07/2020 12:30 PM EDT 02/07/2020 12:59 PM EDT Comment:Symptoms->Surveillan ce Narrative Resulting Agency Comment Spec In Lab Vik Justin MD MICROBIOLOGY - GENERAL ORDERABLES Performing Organization Address City/[facility]/ZIP Co de Phone Number [facility] [place] [address] * POCT Glucose (02/07/2020 10:58 AM EDT) Glucose, POC 115 65 - 199 mg/dL [facility] Comment: Supplemental ranges: <140 mg/dL before meals <180 mg/dL all other times of the day Blood specimen (specimen) 02/07/2020 10:58 AM EDT 02/07/2020 10:58 AM EDT Rell Gutierrez MD POINT OF CARE TEST O RDERABLES Performing Organization Address [facility] Co de Phone Number [facility] [place] [address] * Lavender Tube HOLD (02/07/2020 10:55 AM EDT) Lavender Hold Sample in lab. [facility] Blood specimen (specimen) Venous Draw / Unknown 02/07/2020 10:55 AM EDT 02/07/2020 11:16 AM EDT Kayleigh Crook MD HEMATOLOGY ORDERABLE S Performing Organization Address [facility]/ZIP Co de Phone Number [facility] [place] [address] * Phosphorus (02/07/2020 10:55 AM EDT) Phosphorus 3.0 2.5 - 4.5 mg/dL [facility] Blood specimen (specimen) 02/07/2020 10:55 AM EDT 02/07/2020 11:15 AM EDT Narrative Resulting Agency Comment Spec In Lab Rell Gutierrez MD CHEMISTRY ORDERABLES Performing Organization Address [facility] de Phone Number [facility] [place] [address] * Magnesium (02/07/2020 10:55 AM EDT) Magnesium 1.00 0.69 - 1.07 mmol/L [facility] Blood specimen (specimen) 02/07/2020 10:55 AM EDT 02/07/2020 11:15 AM EDT Narrative Resulting Agency Comment Spec In Lab Rell Gutierrez MD CHEMISTRY ORDERABLES Performing Organization Address [facility] de Phone Number [facility] [place] [address] * Heparin (unfractionated) Level (02/07/2020 10:55 AM EDT) Pathologist [facility] UF Heparin 0.44 IU/mL [facility] [...] MD HEMATOLOGY ORDE RABLES Performing Organization Address City/[facility]/ZIP Co de Phone Number [facility] [place] [address] * (ABNORMAL) Troponin (02/07/2020 10:55 AM EDT) Troponin-T 0.13(H) 0.00 - 0.00 ng/mL [facility] Comment: The 99th percentile for Troponin T is less than 0.01 ng/mL, any detectable cTnT concentration using this assay should be considered elevated. According to the third universal definition of myocardial infarction the following criteria with a clinical presentation consistent with acute myocardial ischemia meets the diagnosis for a myocardial infarction ([place]). Detection of a rise and/or fall of cTnT, with at least one value greater than the 99th percentile (> or = 0.01) and with at least one of the following ?? Symptoms of ischemia ?? New or presumed new significant TT-bopzncn-H wave (ST-T) changes or new left bundle [...] additional sample may be indicated. Reference: Third Gatzke Definition of Myocardial Infarction. Journal of the [place] [employer] 2012;60:1581-98 Blood specimen (specimen) 02/07/2020 10:55 AM EDT 02/07/2020 11:15 AM EDT Narrative Resulting Agency Comment Spec In Lab Vik Justin MD CHEMISTRY ORDER TOBI Performing Organization Address [facility]/ZIP Co de Phone Number [facility] [place] [address] * ECHO COMPLETE W CONTRAST (02/07/2020 10:46 AM EDT) EF 61 HEARTLAB SYSTEM Anatomical Region Laterality Modality Other 02/07/2020 Narrative 02/07/2020 1:49 PM EDT Procedure: ?Transthoracic Echocardiogram Patient: ?JARRETT Mcintosh ?(Age): 1960(59y) Med Rec#: ? [id number] ?Sex: ?F ? Site Loc: ? [facility] ?Ht / Wt: ??165(cm)/118(kg) Pt. Loc: ?CCU ? BSA: ?2.21 Study Date: ?? 02/07/2020 ?Pt. Type: Inpatient Tape: ? Referring: Rell Gutierrez ??([id number]) Referring: LISY Reading: Ruslan Mcfarlane ([id number]) Correctional Officer Lieutenant: Laura Brown Diagnosis: *Non-ST elevation (NSTEMI) myocardial [...] Vmax ?0.61 ? m/sec ? MV deceleration [id number] ?msec ? MV A-wave Vmax ?0.77 ? [...] ? Mid-Inferior ?Normal ? Mid-Inferoseptal ?Hypokinetic ? Wallace-Septal ? Hypokinetic ? Wallace-Anterior ? Akinetic ? Wallace-Lateral ?Akinetic ? Wallace-Inferior ? Hypokinetic ? Wallace-Tip ?Akinetic ? This report has been electronically signed by: Ruslan Mcfarlane MD ? 02/07/2020 13:49:14 Images reviewed and interpretation verified [facility] Cardiac Ultrasound Laboratory Procedure Note Ruslan Mcfarlane MD - 02/07/2020 Procedure: Transthoracic Echocardiogram Patient: JARRETT BUSTILLO(Age): 1960(59y) Med Rec#: [id number] Sex: F Site Loc: [facility] Ht / Wt: 165(cm)/118(kg) Pt. Loc: CCU BSA: 2.21 Study Date: 02/07/2020 Pt. Type: Inpatient Tape: Referring: Rell Gutierrez ([id number]) Referring: LISY Reading: Ruslan Mcfarlane ([id number]) Correctional Officer Lieutenant: Laura Brown Diagnosis: *Non-ST elevation (NSTEMI) myocardial [...] MV E-wave Vmax 0.61 m/sec MV deceleration [id number] msec MV A-wave Vmax 0.77 m/sec MV [...] Normal Mid-Posterolateral Normal Mid-Inferior Normal Mid-Inferoseptal Hypokinetic Wallace-Septal Hypokinetic Wallace-Anterior Akinetic Wallace-Lateral Akinetic Wallace-Inferior Hypokinetic Wallace-Tip Akinetic This report has been electronically signed by: Ruslan Mcfarlane MD 02/07/2020 13:49:14 Images reviewed and interpretation verified [facility] Cardiac Ultrasound Laboratory Rell Gutierrez MD [...] ? Electronically signed by: Varghese Richmond MD, [facility] ([phone]), at 02/07/2020 9:53 AM Narrative 02/07/2020 9:53 [...] below. Electronically signed by: Varghese Richmond MD, [facility]([phone]), at 02/07/2020 9:53 AM Vik Justin MD IMG DX ORDERABL ES * CARDIAC CATHETERIZATION (02/07/2020 9:00 AM EDT) Anatomical Region Laterality Modality Other Narrative 02/07/2020 9:04 AM EDT ?[facility] ? Cardiac Catheterization/Intervention Report ? Patient Name: Danielle Mills ? Procedure Date: 02/07/2020 ? A #: [id number] ? Primary Physician: Jose, Todd T ? Case #: [id number] ? File Name: [id number] ? Catheterization Order Number: [id number] ? [facility] ? Final Report [place], [place] ? Patient Name: ? Danielle Jarrett ? ID#: ?[id number] ? : ?1960 ? Procedure Date: ? [...] was designated as ASA Class IV. ?The [facility] clinical frailty scale is 5: Mildly Frail. ? Diagnostic Tests: ?Prior Coronary Angiography: ? LV ejection fraction within 6 months is 30%. ?Electrocardiography: ? EKG was assessed by ECG. EKG was Abnormal. EKG showed T-wave ? inversions. ?Medications Prior to Procedure: ? Aspirin and Statin. ? Indications for Diagnostic Cath: ?The priority of the diagnostic procedure was Urgent. The indication for ?the manager labor relations visit is ACS less than or equal [...] was 5.8 minutes, [place] product [place] [address] ?mGYcm2 and air kerma was 1,456 mGY. [...] 8Fr IABP was inserted via the right HOMICIDE SQUAD LIEUTENANT using ultrasound guidance. ?The IABP was advanced via the right HOMICIDE SQU[place]IE[place]NT into the distal aortic arch over ?a wire. ??After confirming position, the IABP was sutured in place and ?connected to the console. ??The counterpulsation was initiated and the ?patient was noted to become chest pain free. ?Successful inseriton of a 50cc IABP via an 8fr sheat in the right HOMICIDE SQUAD LIE[place]NT. ?The attending physician was present for the entire procedure. ?Dr. Todd Garcia M.D. was present during the moderate sedation ?intraservice time as documented by the sedation nurse. ??Case time = 00:34. ?Dr. Todd Garcia M.D. performed the coronary angiography, left heart ?catheterization and IABP insertion in manager labor relations. ? Todd Garcia M.D. ? Electronically Signed by: Todd Garcia M.D. ? Report Finalized: 02/07/2020 ??08:57 ? Report Last Ammended: 03/23/2020 ??13:05 ? Procedure Note Todd Garcia MD - 03/23/2020 [facility] Cardiac Catheterization/Intervention Report Patient Name: Danielle Mills Procedure Date: 02/07/2020 A #: [id number] Primary Physician: Todd Garcia Case #: [id number] File Name: [id number] Catheterization Order Number: [id number] [facility] FinalReport [place], [place] Patient Name: Danielle Mills ID#:[id number] :1960 Procedure Date: February 07, 2020 Case #: [id number] Room: 2 Case Physician: Todd Garcia M.D. [...] patient was designated as ASAClass IV. The [facility] clinical frailty scale is 5: Mildly Frail. Diagnostic Tests: Prior Coronary Angiography: LV ejection fraction within 6 months is 30%. Electrocardiography: EKG was assessed by ECG. EKG was Abnormal. EKG showed T-wave inversions. Medications Prior to Procedure: Aspirin and Statin. Indications for Diagnostic Cath: The priority of the diagnostic procedure was Urgent. The indicationfor the manager labor relations visit is ACS less than or equal [...] 8Fr IABP was inserted via the right HOMICIDE SQU[place] L[place]NT using ultrasoundguidance. The IABP was advanced via the right HOMICIDE S[place] into the distal aortic archover a wire. [...] angiography, leftheart catheterization and IABP insertion in manager labor relations. Todd Garcia M.D. Electronically Signed by: Todd Garcia M.D. Report Finalized: 02/07/2020 08:57 Report Last Ammended: 03/23/2020 13:05 Todd Garcia MD CARDIAC CATH ORDERAB LES * POCT Glucose (02/07/2020 7:32 AM EDT) Pathologist [facility] Glucose, POC 147 65 - 199 mg/dL [facility] Comment: Supplemental ranges: <140 mg/dL before meals <180 mg/dL all other times of the day Blood specimen (specimen) 02/07/2020 7:32 AM EDT 02/07/2020 7:32 AM EDT Rell Gutierrez MD POINT OF CARE TEST O RDERABLES [facility] [place] [address] * (ABNORMAL) Hemoglobin A1c (02/07/2020 7:29 AM EDT) Pathologist [facility] [place] Hemoglobin A1c 6.8(H) 4.3 - 5.6 % [facility] Comment: Reference Range: 4.3 - [...] Mellitus, Diabetes Care 2013; 36: Suppl. 1, L83-11 Estimated Average Glucose 147 mg/dL [facility] Comment: eAG equivalents for HbA1c [...] into estimated average glucose values. ??Diabetes Care 2008:31(8):0214-7942. Blood specimen (specimen) Venous Draw / Unknown 02/07/2020 7:29 AM EDT 02/07/2020 8:47 AM EDT Narrative Resulting Agency Comment Spec In Lab Keyon Foley MD CHEMISTRY ORDERABLES [facility] [place] [address] * Sedimentation rate (02/07/2020 7:29 AM EDT) Sedimentation Rate Automated 25 2 - 39 mm/hr [facility] Comment: Effective April 21, 2019 [...] MD HEMATOLOGY ORDERABLE S Performing Organization Address City/[facility]/ZIP Co de Phone Number [facility] [place] [address] * (ABNORMAL) Hepatic Function Panel (02/07/2020 7:29 AM EDT) [facility] Protein, Total 6.0(L) 6.1 - 8.0 gm/dL [facility] Albumin 3.8 3.2 - 5.2 gm/dL [facility] Aspartate Aminotransferase 35(H) 0 - 30 unit/L [facility] Alanine Aminotransferase 36(H) 0 - 30 unit/L [facility] Alkaline Phosphatase 72 35 - 105 unit/L [facility] Bilirubin, Total 0.4 0.2 - 1.3 mg/dL [facility] Bilirubin, Direct 0.1 0.0 - 0.3 mg/dL [facility] Blood specimen (specimen) Venous Draw / Unknown 02/07/2020 7:29 AM EDT 02/07/2020 7:45 AM EDT Narrative Resulting Agency Comment Spec In Lab Rell Gutierrez MD CHEMISTRY ORDERABLES Performing Organization Address [facility]/ZIP Co de Phone Number [facility] [place] [address] * Lipase (02/07/2020 7:29 AM EDT) [facility] Lipase 28 0 - 60 unit/L [facility] Blood specimen (specimen) Venous Draw / Unknown 02/07/2020 7:29 AM EDT 02/07/2020 7:45 AM EDT Narrative Resulting Agency Comment Spec In Lab Rell Gutierrez MD CHEMISTRY ORDERABLES Performing Organization Address City/[facility]/ZIP Co de Phone Number [facility] [place] [address] * (ABNORMAL) CRP, acute inflammation (02/07/2020 7:29 AM EDT) [facility] C-Reactive Protein 18.2(H) <=4.9 mg/L [facility] Blood specimen (specimen) Venous Draw / Unknown 02/07/2020 7:29 AM EDT 02/07/2020 7:45 AM EDT Narrative Resulting Agency Comment Spec In Lab Rell Gutierrez MD CHEMISTRY ORDERABLES Performing Organization Address [facility] Co de Phone Number [facility] [place] [address] * Differential, Automated (02/07/2020 7:29 AM EDT) [facility] Neutrophil % 64.8 % [facility] Neutrophil Absolute 5.08 1.70 - 6.10 x10(3)/[facility] LABORATORY Lymph % 27.1 % [facility] Lymphocytes Abs 2.1 0.9 - 3.2 x10(3)/[facility] LABORATORY Monocyte % 6.8 % [facility] Monocyte Abs 0.5 0.3 - 0.9 x10(3)/[facility] LABORATORY Eos % 0.5 % [facility] Eosinophils Abs 0.0 0.0 - 0.4 x10(3)/[facility] LABORATORY Basophil % 0.5 % [facility] Baso Absolute 0.0 0.0 - 0.1 x10(3)/[facility] LABORATORY Immature Gran % 0.30 % [facility] Comment: Immature granulocytes(IG's)percentage and absolute count will include metamyelocytes, myelocytes, and promyelocytes. Blood smears from CBCs yielding IG's will be scanned manually for concordance. If this scan disagrees with the automated IG or if promyelocytes are noted, a manual differential will be performed. Immature Gran Absolute 0.02 0.00 - 0.04 x10(3)/[facility] LABORATORY Blood specimen (specimen) 02/07/2020 7:29 AM EDT 02/07/2020 7:45 AM EDT Narrative Resulting Agency Comment Spec In Lab Vik Justin MD HEMATOLOGY EDEN LOPES [facility] [place] [address] * (ABNORMAL) Hemogram (02/07/2020 7:29 AM EDT) White Blood Cell 7.8 4.0 - 9.5 x10(3)/[facility] LABORATORY Red Blood Cell 5.33(H) 4.00 - 5.21 x10(6)/[facility] LABORATORY Hemoglobin 13.7 11.7 - 15.5 gm/dL [facility] Hematocrit 45.2 35.7 - 45.8 % [facility] Mean Cell Volume 84.8 82.6 - 94.4 fL [facility] Mean Cell Hemoglobin 25.7(L) 27.1 - 32.0 pg [facility] Mean Cell Hemoglobin Concentration 30.3(L) 31.7 - 35.0 gm/dL [facility] Platelet 173 145 - 357 x10(3)/ L [facility] RDW Standard Deviation 43.9 37.0 - 46.0 [facility]ATORY RDW coefficient of variation 14.2(H) 11.5 - 14.1 % [facility] Mean Platelet Volume 11.0 7.6 - 12.9 fL [facility] NRBC% auto 0.0 % [facility] NRBC Absolute 0.000 0.000 - 0.000 x10(3)/ L [facility] Blood specimen (specimen) 02/07/2020 7:29 AM EDT 02/07/2020 7:45 AM EDT Narrative Resulting Agency Comment Spec In Lab Vik Justin MD HEMATOLOGY ORDE MARIANNE Performing Organization Address City/[facility]/ZIP Co de Phone Number [facility] [place] [address] * Prothrombin Time (02/07/2020 7:29 AM EDT) Prothrombin Time 11.8 9.4 - 12.5 sec [facility] International Normalization Ratio 1.0 [facility] Comment: An INR <2.0 indicates [...] Address [facility]/ZIP Co de Phone Number [facility] [place] [address] * (ABNORMAL) pro-Brain Natriuretic Peptide (02/07/2020 7:29 AM EDT) NT-proBNP 893(H) <=125 pg/mL [facility] Blood specimen (specimen) 02/07/2020 7:29 AM EDT 02/07/2020 7:45 AM EDT Narrative Resulting Agency Comment Spec In Lab Vik Justin MD CHEMISTRY ORDER TOBI Performing Organization Address City/[facility]/ZIP Co de Phone Number [facility] [place] [address] * Lipid Panel (Reflex Direct LDL) (02/07/2020 7:29 AM EDT) Cholesterol, Total 186 mg/dL [facility]3] LABORATORY Comment: Lower Risk: <200 mg/dL Average Risk: 200-239 mg/dL Higher Risk: >sm=741 mg/dL Triglyceride 161 mg/dL [facility] Comment: Average Risk/Lower Risk: <150 mg/dL Borderline High Risk: 150-199 mg/dL High Risk: 200-499 mg/dL Very High Risk: >zb=537 mg/dL HDL Cholesterol 34 mg/dL [facility] Comment: Males: ?? Higher Risk: <40 mg/dL Females: ?? HIgher Risk: <50 mg/dL LDL Cholesterol 120 mg/dL [facility] Comment: Lowest Risk: <100 mg/dL Lower Risk: 100-129 mg/dL Borderline High Risk: 130-159 mg/dL High Risk: 160-189 mg/dL Very High Risk: >xf=717 mg/dL Cholesterol/HDL Ratio 5.5 ratio [facility] Lipid Interpretation See Note [facility] Comment: Lipid management should be guided by a patient? s ASCVD risk, goals and preferences. ACC/AHA Guidelines recommend high intensity statin if clinical ASCVD or LDL greater than or equal to 190 mg/dL. http://[employer]/GWO-MMM-Gbeogfeym Adults aged 40-75 with LDL 70-189 mg/dL should have their 10 year ASCVD risk estimated with the ACC/AHA ASCVD risk distribution estimator http://tools.acc.org/IACSY-Behj-Xuvkagwtv/ Statin should be discussed if risk greater [...] ORDER TOBI [facility] [place] [address] * TSH (02/07/2020 7:29 AM EDT) Thyroid Stimulating Hormone 1.30 0.27 - 4.20 mcIU/mL [facility] Blood specimen (specimen) 02/07/2020 7:29 AM EDT 02/07/2020 7:45 AM EDT Narrative Resulting Agency Comment Spec In Lab Vik Justin MD CHEMISTRY ORDER TOBI Performing Organization Address [facility] Co de Phone Number [facility] [place] [address] * (ABNORMAL) Troponin (02/07/2020 7:29 AM EDT) Troponin-T 0.10(H) 0.00 - 0.00 ng/mL [facility] Comment: Called by: graciela, Read back by: koby yates (bench chemist), Date/Time:_02/07/20 08:14. The 99th percentile for Troponin T is less than 0.01 ng/mL, any detectable cTnT concentration using this assay should be considered elevated. According to the third universal definition of myocardial infarction the following criteria with a clinical presentation consistent with acute myocardial ischemia meets the diagnosis for a myocardial infarction ([place]). Detection of a rise and/or fall of cTnT, with at least one value greater than the 99th percentile (> or = 0.01) and with at least one of the following ?? Symptoms of ischemia ?? New or presumed new significant IE-xiatwwq-J wave (ST-T) changes or new left bundle [...] additional sample may be indicated. Reference: Third Gatzke Definition of Myocardial Infarction. Journal of the [place] College [employer] 2012;60:1581-98 Blood specimen (specimen) 02/07/2020 7:29 AM EDT 02/07/2020 7:45 AM EDT Narrative Resulting Agency Comment Spec In Lab Vik Justin MD CHEMISTRY ORDER TOBI [facility] [place] [address] * (ABNORMAL) BMP w/fasting Glucose (02/07/2020 7:29 AM EDT) Glucose Fasting 155(H) 65 - 99 mg/dL [facility] Comment: ?Fasting* Glucose Interpretive Criteria [...] of Diabetes Mellitus, Position Statement from the [place] [employer] Association. ??Diabetes Care, Volume 33, Supplement 1, May 2009 Blood Urea Nitrogen 7(L) 8 - 18 mg/dL [facility] Creatinine 0.69(L) 0.70 - 1.20 mg/dL [facility] Sodium 139 135 - 145 mmol/L [facility] Potassium 4.1 3.5 - 5.0 mmol/L [facility] Comment: Please note: ??Patients with WBC >100,000 may have falsely elevated Potassium levels. ??For accurate Potassium quantification in these patients send serum separator tube (gold top) for subsequent determinations. ??Contact the Clinical Chemistry Laboratory if there are any questions. Chloride 105 98 - 107 mmol/L [facility] Carbon Dioxide 21(L) 22 - 31 mmol/L [facility] Anion Gap 13 5 - 15 mmol/L [facility] Calcium 8.1(L) 8.5 - 10.5 mg/dL [facility] Est Glomerular Filtration Rate 96 >=60 mL/min/1. 73 m?? [facility] Comment: The eGFR was calculated using the CKD-EPI equation. As with all creatinine based estimates of kidney function, eGFR values calculated with the CKD-EPI equation are not accurate in patients with acute kidney failure, extremes of body mass or the acutely ill. http://[employer]/[facility] – FAIRFAXnkf eGFR 111 >=60 mL/min/1. 73 m?? [facility] Comment: The eGFR was calculated using the CKD-EPI equation. As with all creatinine based estimates of kidney function, eGFR values calculated with the CKD-EPI equation are not accurate in patients with acute kidney failure, extremes of body mass or the acutely ill. http://Redbooth/DHnkf Blood specimen (specimen) 02/07/2020 7:29 AM EDT 02/07/2020 7:45 AM EDT Narrative Resulting Agency Comment Spec In Lab Vik Justin MD CHEMISTRY ORDER TOBI [facility] [place] [address] * EKG 12 Lead (02/07/2020 6:33 AM EDT) Ventricular rate 80 BPM MUSE SYSTEM Atrial Rate 80 BPM MUSE SYSTEM P-R Interval 150 ms MUSE SYSTEM QRS Duration 82 ms MUSE SYSTEM Q-T Interval 426 ms MUSE SYSTEM QTC Calculated (Bezet) 491 ms MUSE SYSTEM Calculated P Jefferson 54 degrees MUSE SYSTEM Calculated R Jefferson 6 degrees MUSE SYSTEM Calculated T Jefferson 103 degrees MUSE SYSTEM INTERPRETATION Normal sinus rhythm Anterior infarct , age undetermined Possible Left atrial enlargement T wave abnormality, consider lateral ischemia Abnormal ECG No previous ECGs available I personally reviewed the tracing and edited the fellows interpretation Confirmed by fellow Fabian Waters ([id number]) on 02/07/2020 2:39:52 PM Confirmed by MD [...] DAILY, First dose (after last modification) on Ayde 02/10/20 at 0900, Until Discontinued, DO NOT CRUSH [...] Maribel Babcock RN)0939 (Given - Provider: Maribel Babcock, SHAR) insulin [...] 120 Minutes 0623 (New Bag - Provider: Lsisa Sabillon RN)0823 (Stopped - Provider: Maribel Babcock [...] Adt)0906 (MAR Unhold - Provider: Admin Adt)1401 ([facility] Hold - Provider: Admin Adt - Reason: Transfer to a Procedural area)1549 ([facility] Unhold - Provider: Admin Adt)203 (Given - [...] Until Discontinued, Routine 1203 (Given - Provider: nAn Mari RN) pantoprazole EC (Protonix) tablet 40 mg 40 mg, Oral, DAILY, First dose on Fri02/07/20 at 1030, Until Discontinued 1049 (Given - Provider: Alyce Navarro RN)1401 ([facility] Hold - Provider: Admin Adt - Reason: Transfer to a Procedural area)1549 ([facility] Unhold - Provider: Admin Adt) [...] Shelton, SHAR) 0820 (Given - Provider: Ann Mari RN) [...] Alyce Navarro, RN)1800 (Stopped - Provider: Alyce Navarro RN) [...] 1049 (Given - Provider: Alyce Navarro RN)1401 ([facility] Hold - Provider: Admin Adt - Reason: Transfer to a Procedural area)1549 ([facility] Unhold - Provider: Admin Adt) 0109 (Given - Provider: Lissa Sabillon RN) clonazePAM (KlonoPIN) tablet 0.5 mg 0.5 mg, Oral, 2 TIMES DAILY PRN, Starting on Fri02/07/20 at 0921, Until Fri02/09/20 at 1430, Anxiety, DO NOT SPLIT, CRUSH OR OPEN, Routine 1401 ([facility] Hold - Provider: Admin Adt - Reason: Transfer to a Procedural area)1549 ([facility] Unhold - Provider: Admin Adt) cyclobenzaprine (Flexeril) tablet 10 mg 10 mg, Oral, 3 TIMES DAILY PRN, Starting on Fri02/07/20 at 0921, Until Fri02/09/20 at 1430, Muscle spasms, Routine 1401 ([facility] Hold - Provider: Admin Adt - Reason: Transfer to a Procedural area)1549 ([facility] Unhold - Provider: Admin Adt) [...] - Reason: Transfer to a Procedural area)0906 ([facility] Unhold - Provider: Admin Adt)1401 ([facility] Hold - Provider: Admin Adt - Reason: Transfer to a Procedural area)1549 ([facility] Unhold - Provider: Admin Adt) [...] Ekaterina Romo RN)1453 (Given - Provider: Ekaterina A Demetrius, RN - Comment: Chest pain with balloon [...] duration of the active insulin., Routine 0755 ([facility] Hold - Provider: Admin Adt - Reason: Transfer to a Procedural area)0906 ([facility] Unhold - Provider: Admin Adt)1401 ([facility] Hold - Provider: Admin Adt - Reason: Transfer to a Procedural area)1549 ([facility] Unhold - Provider: Admin Adt) glucose (GLUTOSE) [...] for Potassium Protocol in online policies., Routine 2206 (Given - Provider: Lissa Sabillon RN) sodium [...] Routine documented in this encounter Care Teams Clinical Laboratory Aide Relationship Specialty Start Date End Date Francy Lowe, PER DIEM INTERPRETER PCP - General Family Medicine 10/19/19 02/11/21 documented as of this encounter
--- OUTSIDE RECORDS SUMMARY | 2024-06-25 11:06 | XMS_ITS | Encounter Summary ---
Author Organization [facility] [place] [address] Care Team Providers Care Cafeteria Or Lunchroom Checker Name Role Phone BryRadha villagranana luisa Carpenter APRN Primary Care Provider + Reason for Visit * Reason Onset Date Comments Medication Refill 12/25/2020 Encounter Details Date Type Department Care Team (Late st Contact Info) Description 12/25/2020 Refill [place]ology [place] [address] Nimesh Alicia MD [facility] [place] [address] Social History Tobacco Use Types Packs/Day Years [...] Neurosurgery at [facility] [address] [place] [address] Mary Hart MD [address] [place] [address] Irena Pierre PA [address] [place] [address] documented as of this encounter Visit Diagnoses Not on filedocumented in this encounter Care Teams Cafeteria Or Lunchroom Checker Relationship Specialty Start Date End Date Francy Lowe APRN PCP - General Family Medicine 10/19/19 02/11/21 documented as of this encounter
--- OUTSIDE RECORDS SUMMARY | 2024-06-25 11:06 | XMS_ITS | Encounter Summary ---
Author Organization [facility] [place] [address] Care Team Providers Care Librarian School Name Role Phone Steven Jeffries MD Primary Care Provider Reason for Visit * Reason Comments Medication Refill Encounter Details Date Type Department Care Team (Late st Contact Info) Description 05/31/2021 Refill [place] [address] Nimesh Alicia MD [facility] [place] [address] Social History Tobacco Use Types Packs/Day Years [...] at [facility] [address] [place] [address] Mary Hart MD [address] [address] Irena Pierre PA [address] [place] [address] documented as of this encounter Visit Diagnoses Not on filedocumented in this encounter Care Teams Librarian School Relationship Specialty Start Date End Date Steven Jeffries MD [address] [place] [id number] PCP - General General Internal Medicine 02/12/2101/17 documented as of this encounter
--- OUTSIDE RECORDS SUMMARY | 2024-06-25 11:06 | XMS_ITS | Encounter Summary ---
Author Organization [facility] Address [facility] [place] [address] Care Team Providers Care Channeler Name Role Phone Francy Lowe APRN Primary Care Provider + Encounter Details Date Type Department Care Team (Latest Contact Info) Description 03/07/2020 10:00 AM EDT TH Visit (TeleHealth) [place] [address] Marta Rivera MD [facility] [place] [address] 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, Tg [...] year at our office by the same an/ssn 2 4 operator next spring/summer. 4. RTC: 6-9 mo [...] recently admitted in late Jan 2020 for ID s/p 3 stents (02/07/20) Patient verbally consents [...] to BEN. She recently admitted due to ID s/p 3 stents for her 3vss CAD with summary as shown below: Hospital Course during 02/06-02/09/20: #NSTEMI s/p PCI with JEANETH to LAD, LPA and LPL1 Admitted to the cardiology service. The patient was taken to the crime laboratory analyst and noted to have 3 vessel disease. [...] and occasional difficulty swallowing. Thyroid US at [facility] on 10/22/19 showed a Rt thyroid [...] ??? Carpal tunnel syndrome G56.00 ??? Cystocele [id number] ??? Depression, anxiety, insomnia, PTSD F32.9 ??? [...] file Gets together: Not on file Attends religion service: Not on file Active member of [...] No proximal muscle weakness. Thyroid US at [facility] Radiology (10/22/19) before taking thyroid Rx showed a Rt thyroid nodule of 1.1 cmand the others were < 1 cm with rec to FU in 6 mo. Office Thyrid Ultrasound: 12/06/19 (~6 weeks after taking liothyronine supplement) Indication: Rt thyroid nodule and Delano's thyroiditis - to assess nodule characteristic & may need FNA biopsy if suspicious. Comparison: 10/22/19 US from outside at [facility]. Procedure: Real-time ultrasonography limited to the thyroid gland and lateral neck area with and without color doppler were obtained using a [employer] Focus 400 US machine and an HFL38/15-6 [...] recently admitted in late Jan 2020 for ID s/p 3 stents (02/07/20), so we will [...] year at our office by the same an/ssn 2 4 operator next spring/summer. 4. RTC: 6-9 mo [...] 1:15 PM EDT Office Visit Neurosurgery at [facility] [address] [place] [address] Mary Hart MD [address] [place] [address] Irena Pierre PA [address] [place] [address] documented as of this encounter Visit Diagnoses [...] insulin documented in this encounter Care Teams Channeler Relationship Specialty Start Date End Date Francy Lowe APRN PCP - General Family Medicine 10/19/19 02/11/21 documented as of this encounter
--- OUTSIDE RECORDS SUMMARY | 2024-06-25 11:06 | XMS_ITS | Encounter Summary ---
[place] [address] Care Team Providers Care Abstractor Name Role Phone Francy Lowe APRN Primary Care Provider + Reason for Visit * Reason Onset Date Comments Appointment 11/30/2020 Encounter Details Date Type Department Care Team (Late st Contact Info) Description 11/30/2020 Telephone [place] [address] Felicita Costa I Appointment Social History Tobacco [...] PM EDT Office Visit Neurosurgery at [address] [place] [address] Mary Hart MD [address] [place] [address] Irena Pierre PA [address] [place] [address] documented as of this encounter Visit Diagnoses Not on filedocumented in this encounter Care Teams Abstractor Relationship Specialty Start Date End Date Francy Lowe APRN PCP - General Family Medicine 10/19/19 02/11/21 documented as of this encounter
--- OUTSIDE RECORDS SUMMARY | 2024-06-25 11:06 | XMS_ITS | Encounter Summary ---
[place] [address] Care Team Providers Care Housing Assistant Property Manager Name Role Phone Francy Lowe APRN Primary Care Provider + Reason for Visit * Reason Onset Date Comments Prior Authorization 08/30/2020 Encounter Details Date Type Department Care Team (Late st Contact Info) Description 08/30/2020 Telephone [place] [address] Lissa Bryant CCMA Prior Authorization Social History [...] Prior Authorization 4L Gastroenterology / [place] [address] Subscriber Insurance: [employer] BIN:[id number] PCN: [id number] Phone: Fax: Physician: Nimesh Alicia NPI: Return [...] Visit Neurosurgery at [facility] [address] [place] [address] Mary Hart MD [address] [place] [address] Irena Pierre PA [address] [facility] [place] [address] documented as of this encounter Visit Diagnoses Not on filedocumented in this encounter Care Teams Housing Assistant Property Manager Relationship Specialty Start Date End Date Francy Lowe APRN PCP - General Family Medicine 10/19/19 02/11/21 documented as of this encounter
--- OUTSIDE RECORDS SUMMARY | 2024-06-25 11:06 | XMS_ITS | Encounter Summary ---
Author Organization [facility] [place] [address] Care Team Providers Care Communication Consultant Name Role Phone Brysharondaana luisa Francy Carpenter APRN Primary Care Provider + Encounter Details Date Type Department Care Team (Late st Contact Info) Description 09/04/2020 Orders [place] [address] Nimesh Alicia MD [facility] [place] [address] Social History Tobacco Use Types Packs/Day Years [...] PM EDT Office Visit Neurosurgery at [facility] [address] [place] [phone] Mary Hart MD [facility] [address] [address] Irena Pierre PA [address] [place] [address] documented as of this encounter Visit Diagnoses Not on filedocumented in this encounter Care Teams Communication Consultant Relationship Specialty Start Date End Date Francy Lowe APRN PCP - General Family Medicine 10/19/19 02/11/21 documented as of this encounter
--- OUTSIDE RECORDS SUMMARY | 2024-06-25 11:06 | XMS_ITS | Encounter Summary ---
Author Organization [facility] Address [facility] [address] Care Team Providers Care It Service Technician Name Role Phone Francy Lowe APRN Primary Care Provider + Reason for Visit * Reason Comments Medication Refill Encounter Details Date Type Department Care Team (Late st Contact Info) Description 09/30/2020 Ref[place] [address] Marta Rivera MD [facility] [place] [address] Social History Tobacco Use Types Packs/Day Years [...] Neurosurgery at [facility] [address] [place] [address] Mary Hart MD [address] [place] [address] Irena Pierre PA [address] [place] [address] documented as of this encounter Visit Diagnoses Not on filedocumented in this encounter Care Teams It Service Technician Relationship Specialty Start Date End Date Francy Lowe APRN PCP - General Family Medicine 10/19/19 02/11/21 documented as of this encounter
--- OUTSIDE RECORDS SUMMARY | 2024-06-25 11:06 | XMS_ITS | Encounter Summary ---
Author Organization [facility] [place] [address] Care Team Providers Care Drying Supervisor Name Role Phone Steven Jeffries MD Primary Care Provider [phone] Reason for Visit * Reason Comments Medication Refill Encounter Details Date Type Department Care Team (Late st Contact Info) Description 04/26/2021 Ref[place] [address] Nimesh Aliica MD [facility] [place] [address] Social History Tobacco Use Types Packs/Day Years [...] at [facility] [address] [place] [address] Mary Hart MD [address] [place] [address] Irena Pierre PA [address] [place] [address] documented as of this encounter Visit Diagnoses Not on filedocumented in this encounter Care Teams Drying Supervisor Relationship Specialty Start Date End Date Steven Jeffries MD [address] [place] [id number] PCP - General General Internal Medicine 02/12/2101/17 documented as of this encounter
--- OUTSIDE RECORDS SUMMARY | 2024-06-25 11:06 | XMS_ITS | Encounter Summary ---
Author Organization [facility] Address [facility] [place] [address] Care Team Providers Care Colliery Clerk Name Role Phone Francy Lowe APRN Primary Care Provider + Reason for Visit * Reason Comments Medication Refill Encounter Details Date Type Department Care Team (Late st Contact Info) Description 01/06/2021 Ref[place] [address] Marta Rivera MD [facility] [place] [address] Type 2 diabetes, controlled, with neuropathy Social [...] at [facility] [address] [place] [address] Mary Hart MD [address] [address] Irena Pierre PA [address] [place] [address] documented as of this encounter Visit Diagnoses Diagnosis Type 2 diabetes, controlled, with neuropathy Type II or unspecified type diabetes mellitus with neurological manifestations, not stated as uncontrolled documented in this encounter Care Teams Colliery Clerk Relationship Specialty Start Date End Date Francy Lwoe APRN PCP - General Family Medicine 10/19/19 02/11/21 documented as of this encounter
--- OUTSIDE RECORDS SUMMARY | 2024-06-25 11:07 | XMS_ITS | Encounter Summary ---
Author Organization [facility] [address] Care Team Providers Care Therapeutic Support Staff Name Role Phone Francy Lowe APRN Primary Care Provider + Encounter Details Date Type Department Care Team (Late st Contact Info) Description 02/07/2020 External [place] [phone] Social History Tobacco Use Types Packs/Day Years [...] Neurosurgery at [facility] [address] [phone] aMry Hart MD [address] [place] [address] Irena Pierre PA [address] [facility] [place] [address] documented as of this encounter Procedures Procedure Name Priority Date/Time Associated Diagnosis Comments ECG SCAN Routine 02/07/2020 ECG SCAN Routine 02/07/2020 documented in this encounter Results * Scan Doc: ECG (02/07/2020) Historical Provider MD MEDIA MGR SCAN EX T ORDR/RSLT * Scan Doc: ECG (02/07/2020) Historical Provider MEDIA MGR SCAN EX T ORDR/RSLT documented in this encounter Visit Diagnoses Not on filedocumented in this encounter Care Teams Therapeutic Support Staff Relationship Specialty Start Date End Date Francy Lowe APRN PCP - General Family Medicine 10/19/19 02/11/21 documented as of this encounter
--- OUTSIDE RECORDS SUMMARY | 2024-06-25 11:07 | XMS_ITS | Encounter Summary ---
[place] [address] Care Team Providers Care Digital Associate Media Director Name Role Phone Francy Lowe APRN Primary Care Provider + Reason for Referral * Surgical (Routine) - Closed Specialty Diagnoses / Procedures Referred By Contac t Referred To Contact Gastroenterology Diagnoses Esophageal spasm Procedures High Resolution Esophageal Manometry Nimesh Alicia MD [facility] [place] [address] [facility] [address] [place] [id number] Referral ID Status Reason Start Date Expiration Date V isits Requested Visits Authorized [id number] Closed Consult, Test & Treat 02/03/2020 02/02/2021 1 1 * Consultation (Routine) - Closed Specialty Diagnoses / Procedures Referred By Contmacie t Referred To Contact Gastroenterology Diagnoses Esophageal spasm Nimesh Alicia MD [facility] [place] [address] [facility] Endoscopy [address] [place] [phone] Referral ID Status Reason Start Date Expiration Date V isits Requested Visits Authorized [id number] Closed Consult, Test & Treat 02/03/2020 02/02/2021 1 1 Encounter Details Date Type Department Care Team (Late st Contact Info) Description 02/03/2020 Orders [place] [address] Nimesh Alicia MD [facility] [place] [address] Esophageal spasm Social History Tobacco Use Types [...] Visit Neurosurgery at [facility] [address] [facility] [place] [address] Mary Hart MD [address] [place] [address] Irena Pierre PA [address] [facility] [place] [address] Scheduled Orders Name Type Priority Associated Diagnoses [...] (Bezet) 497 ms MUSE SYSTEM Calculated P [place] 58 degrees MUSE SYSTEM Calculated R [place] 19 degrees MUSE SYSTEM Calculated T [place] 109 degrees MUSE SYSTEM INTERPRETATION Normal sinus rhythm Possible Anterior infarct (cited on or before 07-FEB-2020) T wave abnormality, consider lateral ischemia Abnormal ECG When compared with ECG of 07-FEB-2020 06:33, No significant change was found Confirmed by MD YANDY, SOHAIL ([id number]) on 02/08/2020 8:36:48 AM MUSE SYSTEM 02/07/2020 9:16 AM EDT 02/08/2020 8:36 AM EDT Unknown ECG ORDERABLES MUSE SYSTEM documented in this encounter Visit Diagnoses Diagnosis Esophageal spasm Dyskinesia of esophagus documented in this encounter Care Teams Digital Associate Media Director Relationship Specialty Start Date End Date Francy Lowe APRN PCP - General Family Medicine 10/19/19 02/11/21 documented as of this encounter
--- OUTSIDE RECORDS SUMMARY | 2024-06-25 11:07 | XMS_ITS | Encounter Summary ---
[place] [address] Care Team Providers Care Physician'S Assistant Name Role Phone Francy Lowe APRN Primary Care Provider + Reason for Visit * Auth/Cert Specialty Diagnoses / Procedures Referred By Jasson mendoza Referred To Contact Diagnoses NSTEMI (non-ST elevated myocardial infarction) nstemi Referral ID Status Reason Start Date Expiration Date Visits Re quested Visits Authorized [id number] 1 1 Encounter Details Date Type Department Care Team (Latest Contact Info) Description 02/07/2020 8:50 AM EDT - 02/07/2020 11:59 PM EDT Hospital Encounter [place] [address] Discharge Disposition: Home Social History Tobacco Use [...] Office Visit Neurosurgery at [facility] [address] [place] [address] Mary Hart MD [address] [place] [address] Irena Pierre PA [address] [place] [address] documented as of this encounter Procedures Procedure [...] mLs documented in this encounter Care Teams Physician'S Assistant Relationship Specialty Start Date End Date Francy Lowe APRN PCP - General Family Medicine 10/19/19 02/11/21 documented as of this encounter
--- OUTSIDE RECORDS SUMMARY | 2024-06-25 11:07 | XMS_ITS | Encounter Summary ---
Author Organization [facility] Address [facility] [place] [address] Care Team Providers Care Pusher Operator Name Role Phone Francy Lowe APRN Primary Care Provider + Reason for Visit * Auth/Cert Specialty Diagnoses / Procedures Referred By Jasson mendoza Referred To Contact Diagnoses NSTEMI (non-ST elevated myocardial infarction) nstemi Referral ID Status Reason Start Date Expiration Date Visits Re quested Visits Authorized [id number] 1 1 Encounter Details Date Type Department Care Team (Late st Contact Info) Description 02/07/2020 2:03 PM EDT - 02/07/2020 3:03 PM EDT [place] [address] Todd Garcia MD [facility] [place] [address] CARDIAC CATHETERIZATION Social History Tobacco Use Types [...] Danielle Mills Patient Age: 59 y.o. Language: Japanese Race: White Ethnicity: Not nor Admit date: [...] transferred from [facility] for NSTEMI. ?? Pt reports 1 [...] cough, leg swelling. No palpitations. ?? At [facility] starting 9 pm, VSS stable 113/73 HR 85 bpm, RR 19 Questionable CLEMENTINA in V1-V2. Troponin 0.24, lipase 117 CT abdomen/plevis reportedly unremarkable. Pt is s/p CCY She received 4mg IV morphine , Zofran She was started on Heparin and NTG drip. Received ASA 324mg @ 1:32 am at [facility] Plavix 300mg @ 1:55am and then 300mg @2:21am. Consulted with Cards fellow at [facility] and decided to transfer. Hospital Course: #NSTEMI s/p PCI with JEANETH to LAD, LPA and LPL1 Admitted to the cardiology service. The patient was taken to the dental laboratory worker and noted to have 3 vessel disease. [...] appointments: During 8am-5pm Friday through Friday call [phone] to speak with a nurse in the cardiology clinic All other times call [phone] and ask to speak to the counseling center director administration clerk. Follow up Appointments: ?? Francy Lowe PCP on Friday02/21/20 @ 2:30pm Dr. Carlos Jenkins ([facility] Cardiology) on 03/02/20 @ 2:45pm Future Appointments Date Time Provider Department Center 03/07/2020 10:00 AM Marta Rivera MD [facility] ENDO [facility] PCP: Francy Lowe APRN at [phone] Your Inpatient Doctor(s) at [facility]: Rell Gutierrez MD - Attending physician Your Primary Care Provider: Francy Lowe APRN [address] / [place] [address] For questions regarding issues relating to your hospitalization on the Hospital Medicine Service, please contact your inpatient physician through the [facility] Marketing Analytics Analyst [phone]. Issues after hours and on weekends will be handled by the Hospitalist staff on-call. General Instructions None Future Appointments and Orders Future Appointments and Orders Future Appointments Provider Department Dept Phone 03/07/2020 10:00 AM Marta Rivera MD Endocrinology at [facility] Arrive at: Home [phone] Please do not come in for this visit. Your provider will call you at the number you provided. Future Orders Complete By Expires Referral to Cardiac Rehab [[id number] Custom] As directed Process Instructions: If no progress note charted, please enter Clinical details in comments. Scheduling Instructions: Questions: My question or request is: NSTEMI, PCI- CR at [facility] Discharge References/Attachments None documented in this encounter [...] appointments: During 8am-5pm Friday through Friday call [phone] to speak with a nurse in the cardiology clinic All other times call [phone] and ask to speak to the counseling center director administration clerk. Follow up Appointments: ?? Francy Lowe, PCP on Friday02/21/20 @ 2:30pm Dr. Carlos Jenkins ([facility] Cardiology) on 03/02/20 @ 2:45pm Future Appointments Date Time Provider Department Center 03/07/2020 10:00 AM Marta Rivera MD [facility] ENDO [facility] PCP: Francy Lowe APRN at [phone] Your Inpatient Doctor(s) at [facility]: Rell Gutierrez MD - Attending physician Your Primary Care Provider: Francy Lowe APRN [address] / [facility] [address] For questions regarding issues relating to your hospitalization on the Hospital Medicine Service, please contact your inpatient physician through the [facility] Marketing Analytics Analyst [phone]. Issues after hours and on weekends will [...] that she works with on this at [facility]. Also states that she is on a financial program at [facility]. CM encouraged patient to call the financial assistance number provided on the brochure for screening and to discuss the bill from this hospitalization to determine what could potentially be used towards her Medicaid spend down as well. Patient verbalized understanding and denies any further questions or concerns at this time. CM updated GUN NUMBER and completed consult that was placed for social work re: financial concerns. Clarisa Rees RN, MSN Shear Operator - Cardiology Office of Care Management Pager: [phone] Work * Rell Gutierrez MD - 02/09/2020 7:26 AM EDT Inpatient Cardiology Progress Note Patient Name: Danielle Mills Date of Admission: 02/07/2020 ( Hospital Day 2 days ) Service: S2 ID: Danielle Mills 59 y/o F with HTN, DM, dyslipidemia, hypothyroidism, obesity/BEN was transferred from [facility] for NSTEMI. Cardiac cath this AM [...] below. Electronically signed by: Trace Lopez MD, [facility] ([phone]), at 02/08/2020 3:54 AM Cardiac Catheterization Final [...] transferred from [facility] for NSTEMI. S/p high risk PCI [...] home Maria Bolaños MD PGY1 Cardiology S2 #[id number] CARDIOLOGY ATTENDING NOTE Patient: Danielle Mills Date [...] anterior ST-T wave changes. Went urgently to dental laboratory worker due to ongoing pain on 02/06 - 3VD including BLISTER PACK OPERATOR RCA; IABP placed due to ongoing [...] Dr. Bolaños. Rell Gutierrez MD, MPH, RPVI, [facility] Pager [phone] Cardiovascular School Services OfficerTip Out Workercareer [place] [address] * Rell Gutierrez MD - 02/08/2020 7:04 AM EDT Inpatient Cardiology Progress Note Patient Name: Danielle Mills Date of Admission: 02/07/2020 ( Hospital Day 1 day ) Service: S2 ID: Danielle Mills 59 y/o F with HTN, DM, dyslipidemia, hypothyroidism, obesity/BEN was transferred from [facility] for NSTEMI. Cardiac cath this AM [...] below. Electronically signed by: Trace Lopez MD, [facility] ([phone]), at 02/08/2020 3:54 AM Cardiac Catheterization Final Result XR Chest One View Final Result Findings suggestive of mild volume overload without kuldeep pulmonary edema. Thank you for letting us participate in the care of this patient. For questions regarding this report, please contact the number below. Electronically signed by: Varghese Richmond MD, [facility] ([phone]), at 02/07/2020 9:53 AM Cardiac Catheterization Final [...] transferred from [facility] for NSTEMI. S/p high risk PCI [...] floor Maria Bolaños MD PGY1 Cardiology S2 #2555 CARDIOLOGY ATTENDING NOTE Patient: Danielle Mills Date [...] anterior ST-T wave changes. Went urgently to dental laboratory worker due to ongoing pain on 02/06 - 3VD including BLISTER PACK OPERATOR RCA; IABP placed due to ongoing [...] Rell Gutierrez MD, MPH, RPVI, FACC Pager [phone] Cardiovascular School Services OfficerTip Out Workercare[place] [address] * Carmella Alexander - 02/07/2020 9:02 PM [...] Carmella Alexander MD, PGY-2 Cardiology S1/S2, Pager [phone] 02/07/2020 * Ney Sylvester MD - 02/07/2020 [...] 6:50 AM EDT 0630 Pt admitted for [facility] with c/o chest pain. Pt states she [...] Lowe APRN Presenting Diagnosis/Chief Complaint: Transfer from [facility] with NSTEMI/[place]. Active Problem List: Active Hospital Problems Diagnosis ??? Non-ST elevation myocardial infarction (NSTEMI) Resolved Hospital Problems No resolved problems to display. History of Present Illness: 59 y/o F with HTN, DM, dyslipidemia, hypothyroidism, obesity/BEN was transferred from [facility] for NSTEMI. Pt reports 1 week [...] fever, cough, leg swelling. No palpitations. At [facility] starting 9 pm, VSS stable 113/73 HR 85 bpm, RR 19 Questionable CLEMENTINA in V1-V2. Troponin 0.24, lipase 117 CT abdomen/plevis reportedly unremarkable. Pt is s/p CCY She received 4mg IV morphine , Zofran She was started on Heparin and NTG drip. Received ASA 324mg @ 1:32 am at [facility] Plavix 300mg @ 1:55am and then 300mg @2:21am. Consulted with Cards fellow at [facility] and decided to transfer. Personal and social [...] 2.49) performed by Nimesh Alicia MD at [facility] ENDOSCOPY ??? RECTOCELE REPAIR 2014 Dr. Boo @ [facility] ??? SHOULDER SURGERY Left 06/05/2017 L [...] file Gets together: Not on file Attends jewish service: Not on file Active member of [...] transferred from [facility] for NSTEMI. TREATMENT PLAN: #[place]/NSTEMI -ANN score 111 , DENIA score 4 -C/w Heparin and NTG drip. - Received ASA 324mg @ 1:32 am at [facility] -Plavix 300mg @ 1:55am and then 300mg [...] plan of care. I will follow-up with Danilele at the one month michelle to assess progress with this quit attempt. Thank you. Arnaud Teague, MSN, RN-, [facility] Tobacco Rn Anesthetist [facility] Pager #[phone] * Consult Note - Chelsey Beltre RN [...] in an outpatient cardiac rehabilitation program at [facility] was discussed. Patient agrees to a [...] (Interventions Implemented as Appropriate) 02/08/20 0800 02/08/20 7110 Plan of Care Review Progress -- improving [...] Stated by Patient: chest pain/NSTEMI. Transferred from [facility] Last COVID test date and time: [...] spouse would be surrogate decision maker per [place] surrogate decision making law. (Only good for 90 days) Any patient receiving care at [facility] must abide by [place] law. The hierarchy for surrogate decision making [...] (i) The agent with financial power of workers compensation defense attorney or a conservator appointed in accordance [...] Address Listed as: [address] [facility] [address] Social & Family Supports: Extended Emergency Contact Information Primary Emergency Contact: Andrés Mills Address: [address] [place] [address] [facility] Relation: Spouse Community Resources [...] Secondary Insurance: N/A Prescription Coverage: Preferred Pharmacy: [id number] [place] - [address] [place] [address] [id number] - [place], [place] - [address] [facility] [address] [facility] - [place], [place] - [address] [facility] [address] [facility] [address] Primary Care Provider: Francy Lowe APRN [phone] Patient/Caregiver Goals of Treatment: DC home Potential [...] service for NSTEMI as a transfer from [facility]. Plan: A member of the Care Management team will continue to monitor progress, follow for continuityof care and assist with transition of care planning. Clarisa Rees, RN, MSN, superintendent oil field drilling Office of Care Management Pager: [phone] Work * Brief Op Note - Todd Garcia MD - 02/07/2020 3:26 PM EDT Images from the original note were not included. Preliminary Cardiac Catheterization Procedure Note: Patient Name: Danielle Mills : [id number] MR#: [id number] Case Date: 02/07/2020 Marketing Analytics Analyst: Surgeon(s) and Role: * Todd Garcia MD - Primary Preoperative diagnosis: ?CAD Postoperative diagnosis: *ASCVD * Procedure(s) performed: Stent insertion, coronary Access: left PRESS ASSISTANT--> Perclosed A time-out was conducted prior to [...] Procedure Note: Patient Name: Danielle Mills : [id number] MR#: [id number] Case Date: 02/07/2020 Marketing Analytics Analyst: Surgeon(s) and Role: * Todd Garcia MD - Primary * David Vigil MD - Fellow Preoperative diagnosis: ASCVD Postoperative diagnosis: * ASCVD * Procedure(s) performed: [facility] Coronary angio IABP insertion Access: right radial--> TR band, right PRESS ASSISTANT--> IABP inserted A time-out was conducted prior [...] in the past at the ED at [facility] for epigastric pain that had been negative for acute findings. Thispresentation she was found to have a slight troponin elevation and slight ST elevation in V1-V6 with t wave inversions. Cath this am showed multivessel disease including LAD, Circ and RCA. She was still having some chest pain on low dose nitro. An IABP was placed in the dental laboratory worker and she is being transferred to [facility]. She received 600mg of plavix this [...] 2.49) performed by Nimesh Alicia MD at [facility] ENDOSCOPY ??? RECTOCELE REPAIR 2015 Dr. Boo @ [facility] ??? SHOULDER SURGERY Left 06/05/2017 L [...] issues/chronic pain. 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 Family- lives with Andrés and his mother. Illicit drug use- denies Pentecostalism- denies Family History: History reviewed. No pertinent [...] of Danielle Mills. Signed: JUAN PABLO [facility] Section of Cardiac Surgery Date: 02/07/2020 59 yo female who presents with stuttering ND, on plavix, anterior WMA. CAth shows a very tight proximal LAD stenosis, distal LCX disease, non-dominant RCA which is occluded. The distal LCX circulation is not a good target for bypass surgery. The RCA is not a target. The LAD is a good target. We could end up surgery with only a NAIR to the LAD. Right now on plavix, with an acute ND, on an IABP, with BMI 43 and [...] further details. Vik Justin MD 02/07/2020 Pager [phone] documented in this encounter Plan of Treatment Upcoming Encounters Date Type Department Care Team (Late st Contact Info) Description 07/20/2024 1:15 PM EDT Office Visit Neurosurgery at [address] [place] [address] Mary Hart MD [address] [place] [address] Irena Pierre PA [address] [place] [address] Scheduled Referrals Name Type Priority Associated Diagnoses [...] (ABNORMAL) POCT Glucose (02/09/2020 6:55 AM EDT) [facility] Glucose, POC 228(H) 65 - 199 mg/dL [facility] Comment: Supplemental ranges: <140 mg/dL before meals <180 mg/dL all other times of the day Blood specimen (specimen) 02/09/2020 6:55 AM EDT 02/09/2020 6:55 AM EDT Rell Gutierrez MD POINT OF CARE TEST O RDERABLES [facility] [place] [address] * Differential, Automated (02/09/2020 3:34 AM EDT) [facility] Neutrophil % 67.7 % [facility] Neutrophil Absolute 5.30 1.70 - 6.10 x10(3)/[facility] LABORATORY Lymph % 20.9 % [facility] Lymphocytes Abs 1.6 0.9 - 3.2 x10(3)/[facility]ORATORY Monocyte % 9.2 % [facility] Monocyte Abs 0.7 0.3 - 0.9 x10(3)/[facility]ORATORY Eos % 1.5 % [facility] Eosinophils Abs 0.1 0.0 - 0.4 x10(3)/[facility]ORAT[facility] Basophil % 0.4 % [facility] Baso Absolute 0.0 0.0 - 0.1 x10(3)/[facility] LABORATORY Immature Gran % 0.30 % [facility] Comment: Immature granulocytes(IG's)percentage and absolute count will include metamyelocytes, myelocytes, and promyelocytes. Blood smears from CBCs yielding IG's will be scanned manually for concordance. If this scan disagrees with the automated IG or if promyelocytes are noted, a manual differential will be performed. Immature Gran Absolute 0.02 0.00 - 0.04 x10(3)/[facility] LABORATORY Blood specimen (specimen) 02/09/2020 3:34 AM EDT 02/09/2020 3:42 AM EDT Narrative Resulting Agency Comment Spec In Lab Maria Bolaños MD HEMATOLOGY ORDERABLE S [facility] [place] [address] * (ABNORMAL) Hemogram (02/09/2020 3:34 AM EDT) White Blood Cell 7.8 4.0 - 9.5 x10(3)/ L [facility] Red Blood Cell 5.11 4.00 - 5.21 x10(6)/ L [facility] Hemoglobin 13.5 11.7 - 15.5 gm/dL [facility] Hematocrit 42.8 35.7 - 45.8 % [facility] Mean Cell Volume 83.8 82.6 - 94.4 fL [facility] Mean Cell Hemoglobin 26.4(L) 27.1 - 32.0 pg [facility] Mean Cell Hemoglobin Concentration 31.5(L) 31.7 - 35.0 gm/dL [facility] Platelet 168 145 - 357 x10(3)/ L [facility] RDW Standard Deviation 43.8 37.0 - 46.0 fL [facility] RDW coefficient of variation 14.3(H) 11.5 - 14.1 % [facility] Mean Platelet Volume 11.5 7.6 - 12.9 fL [facility] NRBC% auto 0.0 % [facility] NRBC Absolute 0.000 0.000 - 0.000 x10(3)/mc L [facility] Blood specimen (specimen) 02/09/2020 3:34 AM EDT 02/09/2020 3:42 AM EDT Narrative Resulting Agency Comment Spec In Lab Maria Bolaños MD HEMATOLOGY ORDERABLE S Performing Organization Address [facility]/[place] [address] * Phosphorus (02/09/2020 3:34 AM EDT) Phosphorus 2.8 2.5 - 4.5 mg/dL [facility] Blood specimen (specimen) 02/09/2020 3:34 AM EDT 02/09/2020 3:42 AM EDT Narrative Resulting Agency Comment Spec In Lab Rell Gutierrez MD CHEMISTRY ORDERABLES Performing Organization Address [facility] Co de Phone Number [facility] [place] [address] * Magnesium (02/09/2020 3:34 AM EDT) Magnesium 0.93 0.69 - 1.07 mmol/L [facility] Blood specimen (specimen) 02/09/2020 3:34 AM EDT 02/09/2020 3:42 AM EDT Narrative Resulting Agency Comment Spec In Lab Rell Gutierrez MD CHEMISTRY ORDERABLES Performing Organization Address City/[facility]/ZIP Co de Phone Number [facility] [place] [address] * (ABNORMAL) Basic Metabolic Panel (non-fasting) (02/09/2020 3:34 AM EDT) Glucose 249(H) 65 - 199 mg/dL [facility] Comment:Diabetes: >=200 mg/d L plus symptoms Blood Urea Nitrogen 12 8 - 18 mg/dL [facility] Creatinine 0.78 0.70 - 1.20 mg/dL [facility] Sodium 138 135 - 145 mmol/L [facility] Potassium 3.8 3.5 - 5.0 mmol/L [facility] Comment: Please note: ??Patients with WBC >100,000 may have falsely elevated Potassium levels. ??For accurate Potassium quantification in these patients send serum separator tube (gold top) for subsequent determinations. ??Contact the Clinical Chemistry Laboratory if there are any questions. Chloride 100 98 - 107 mmol/L [facility] Carbon Dioxide 29 22 - 31 mmol/L [facility] Anion Gap 9 5 - 15 mmol/L [facility] Calcium 8.0(L) 8.5 - 10.5 mg/dL [facility] Est Glomerular Filtration Rate 84 >=60 mL/min/1. 73 m?? [facility] Comment: The eGFR was calculated using the CKD-EPI equation. As with all creatinine based estimates of kidney function, eGFR values calculated with the CKD-EPI equation are not accurate in patients with acute kidney failure, extremes of body mass or the acutely ill. [email or web address] eGFR 97 >=60 mL/min/1. 73 m?? [facility] Comment: The eGFR was calculated using the CKD-EPI equation. As with all creatinine based estimates of kidney function, eGFR values calculated with the CKD-EPI equation are not accurate in patients with acute kidney failure, extremes of body mass or the acutely ill. [email or web address]nkf Blood specimen (specimen) 02/09/2020 3:34 AM EDT 02/09/2020 3:42 AM EDT Narrative Resulting Agency Comment Spec In Lab Rell Gutierrez MD CHEMISTRY ORDERABLES Performing Organization Address [facility] Co de Phone Number [facility] [place] [address] * POCT Glucose (02/08/2020 8:56 PM EDT) Glucose, POC 145 65 - 199 mg/dL [facility] Comment: Supplemental ranges: <140 mg/dL before meals <180 mg/dL all other times of the day Blood specimen (specimen) 02/08/2020 8:56 PM EDT 02/08/2020 8:56 PM EDT Rell Gutierrez MD POINT OF CARE TEST O RDERABLES Performing Organization Address [facility] Co de Phone Number [facility] [place] [address] * POCT Glucose (02/08/2020 4:52 PM EDT) Glucose, POC 144 65 - 199 mg/dL [facility] Comment: Supplemental ranges: <140 mg/dL before meals <180 mg/dL all other times of the day Blood specimen (specimen) 02/08/2020 4:52 PM EDT 02/08/2020 4:52 PM EDT Rell Gutierrez MD POINT OF CARE TEST O RDERABLES Performing Organization Address [facility] Co de Phone Number [facility] [place] [address] * (ABNORMAL) POCT Glucose (02/08/2020 12:35 PM EDT) Glucose, POC 235(H) 65 - 199 mg/dL [facility] Comment: Supplemental ranges: <140 mg/dL before meals <180 mg/dL all other times of the day Blood specimen (specimen) 02/08/2020 12:35 PM EDT 02/08/2020 12:35 PM EDT Rell Gutierrez MD POINT OF CARE TEST O RDERABLES Performing Organization Address [facility] Co de Phone Number [facility] [place] [address] * (ABNORMAL) POCT Glucose (02/08/2020 9:38 AM EDT) Glucose, POC 296(H) 65 - 199 mg/dL [facility] Comment: Supplemental ranges: <140 mg/dL before meals <180 mg/dL all other times of the day Blood specimen (specimen) 02/08/2020 9:38 AM EDT 02/08/2020 9:38 AM EDT Rell Gutierrez MD POINT OF CARE TEST O RDERABLES Performing Organization Address [facility] Co de Phone Number [facility] [place] [address] * (ABNORMAL) POCT Glucose (02/08/2020 7:35 AM EDT) Glucose, POC 241(H) 65 - 199 mg/dL [facility] Comment: Supplemental ranges: <140 mg/dL before meals <180 mg/dL all other times of the day Blood specimen (specimen) 02/08/2020 7:35 AM EDT 02/08/2020 7:35 AM EDT Rell Gutierrez MD POINT OF CARE TEST O RDERABLES Performing Organization Address [facility] Co de Phone Number [facility] [place] [address] * Differential, Automated (02/08/2020 4:01 AM EDT) Neutrophil % 68.7 % [facility] Neutrophil Absolute 5.45 1.70 - 6.10 x10(3)/mcL [facility] Lymph % 21.1 % [facility] Lymphocytes Abs 1.7 0.9 - 3.2 x10(3)/[facility] LABORATORY Monocyte % 8.6 % [facility] Monocyte Abs 0.7 0.3 - 0.9 x10(3)/[facility] LABORATORY Eos % 0.8 % [facility] Eosinophils Abs 0.1 0.0 - 0.4 x10(3)/[facility] [facility] LABORATORY Basophil % 0.4 % [facility] LABORATORY Baso Absolute 0.0 0.0 - 0.1 x10(3)/[facility] LABORATORY Immature Gran % 0.40 % [facility] Comment: Immature granulocytes(IG's)percentage and absolute count will include metamyelocytes, myelocytes, and promyelocytes. Blood smears from CBCs yielding IG's will be scanned manually for concordance. If this scan disagrees with the automated IG or if promyelocytes are noted, a manual differential will be performed. Immature Gran Absolute 0.03 0.00 - 0.04 x10(3)/[facility] LABORATORY Blood specimen (specimen) 02/08/2020 4:01 AM EDT 02/08/2020 4:06 AM EDT Narrative Resulting Agency Comment Spec In Lab Kayleigh Crook MD HEMATOLOGY ORDERABLE S [facility] [place] [address] * (ABNORMAL) Hemogram (02/08/2020 4:01 AM EDT) White Blood Cell 7.9 4.0 - 9.5 x10(3)/[facility] LABORATORY Red Blood Cell 5.11 4.00 - 5.21 x10(6)/[facility] LABORATORY Hemoglobin 13.5 11.7 - 15.5 gm/dL [facility] Hematocrit 42.6 35.7 - 45.8 % [facility] Mean Cell Volume 83.4 82.6 - 94.4 fL [facility] Mean Cell Hemoglobin 26.4(L) 27.1 - 32.0 pg [facility] Mean Cell Hemoglobin Concentration 31.7 31.7 - 35.0 gm/dL [facility] Platelet 189 145 - 357 x10(3)/mc L [facility] RDW Standard Deviation 43.5 37.0 - 46.0 fL [facility] RDW coefficient of variation 14.3(H) 11.5 - 14.1 % [facility] Mean Platelet Volume 11.2 7.6 - 12.9 fL [facility] NRBC% auto 0.0 % [facility] NRBC Absolute 0.000 0.000 - 0.000 x10(3)/mc L [facility] Blood specimen (specimen) 02/08/2020 4:01 AM EDT 02/08/2020 4:06 AM EDT Narrative Resulting Agency Comment Spec In Lab Kayleigh Crook MD HEMATOLOGY ORDERABLE S [facility] [place] [address] * (ABNORMAL) Phosphorus (02/08/2020 4:01 AM EDT) Phosphorus 1.9(L) 2.5 - 4.5 mg/dL [facility] Blood specimen (specimen) 02/08/2020 4:01 AM EDT 02/08/2020 4:06 AM EDT Narrative Resulting Agency Comment Spec In Lab Rell Gutierrez MD CHEMISTRY ORDERABLES [facility] [place] [address] * Magnesium (02/08/2020 4:01 AM EDT) Magnesium 0.91 0.69 - 1.07 mmol/L [facility] Blood specimen (specimen) 02/08/2020 4:01 AM EDT 02/08/2020 4:06 AM EDT Narrative Resulting Agency Comment Spec In Lab Rell Gutierrez MD CHEMISTRY ORDERABLES [facility] [place] [address] * (ABNORMAL) Basic Metabolic Panel (non-fasting) (02/08/2020 4:01 AM EDT) Glucose 247(H) 65 - 199 mg/dL [facility] Comment:Diabetes: >=200 mg/d L plus symptoms Blood Urea Nitrogen 8 8 - 18 mg/dL [facility] Creatinine 0.66(L) 0.70 - 1.20 mg/dL [facility] Sodium 138 135 - 145 mmol/L [facility] Potassium 4.4 3.5 - 5.0 mmol/L [facility] Comment: Please note: ??Patients with WBC >100,000 may have falsely elevated Potassium levels. ??For accurate Potassium quantification in these patients send serum separator tube (gold top) for subsequent determinations. ??Contact the Clinical Chemistry Laboratory if there are any questions. Chloride 102 98 - 107 mmol/L [facility] Carbon Dioxide 27 22 - 31 mmol/L [facility] Anion Gap 9 5 - 15 mmol/L [facility] Calcium 7.9(L) 8.5 - 10.5 mg/dL [facility] Est Glomerular Filtration Rate 97 >=60 mL/min/1. 73 m?? [facility] Comment: The eGFR was calculated using the CKD-EPI equation. As with all creatinine based estimates of kidney function, eGFR values calculated with the CKD-EPI equation are not accurate in patients with acute kidney failure, extremes of body mass or the acutely ill. http://D2S/DHMCnkf eGFR 113 >=60 mL/min/1. 73 m?? [facility] Comment: The eGFR was calculated using the CKD-EPI equation. As with all creatinine based estimates of kidney function, eGFR values calculated with the CKD-EPI equation are not accurate in patients with acute kidney failure, extremes of body mass or the acutely ill. http://[employer] ([employer]STEMpowerkids/DHMCnkf Blood specimen (specimen) 02/08/2020 4:01 AM EDT 02/08/2020 4:06 AM EDT Narrative Resulting Agency Comment Spec In Lab Rell Gutierrez MD CHEMISTRY ORDERABLES Performing Organization Address [facility] Co de Phone Number [facility] [place] [address] * Potassium (02/07/2020 8:55 PM EDT) Potassium 3.7 3.5 - 5.0 mmol/L [facility] Comment: Please note: ??Patients [...] Gutierrez MD CHEMISTRY ORDERABLES Performing Organization Address [facility] de Phone Number [facility] [place] [address] * POCT Glucose (02/07/2020 8:48 PM EDT) Glucose, POC 183 65 - 199 mg/dL [facility] Comment: Supplemental ranges: <140 mg/dL before meals <180 mg/dL all other times of the day Blood specimen (specimen) 02/07/2020 8:48 PM EDT 02/07/2020 8:48 PM EDT Rell Gutierrez MD POINT OF CARE TEST O RDERABLES Performing Organization Address [facility] Co de Phone Number [facility] [place] [address] * Potassium (02/07/2020 5:10 PM EDT) Potassium 4.0 3.5 - 5.0 mmol/L [facility] Comment: Please note: ??Patients [...] In Lab Rell Gutierrez MD CHEMISTRY ORDERABLES [facility] [place] [address] * (ABNORMAL) Troponin (02/07/2020 5:10 PM EDT) Troponin-T 0.27(H) 0.00 - 0.00 ng/mL [facility] Comment: The 99th percentile for Troponin T is less than 0.01 ng/mL, any detectable cTnT concentration using this assay should be considered elevated. According to the third universal definition of myocardial infarction the following criteria with a clinical presentation consistent with acute myocardial ischemia meets the diagnosis for a myocardial infarction (ND). Detection of a rise and/or fall of cTnT, with at least one value greater than the 99th percentile (> or = 0.01) and with at least one of the following ?? Symptoms of ischemia ?? New or presumed new significant EH-lmlrqwh-U wave (ST-T) changes or new left bundle [...] additional sample may be indicated. Reference: Third [place] Definition of Myocardial Infarction. Journal of the [place] [employer] 2012;60:1581-98 Blood specimen (specimen) 02/07/2020 5:10 PM EDT 02/07/2020 5:28 PM EDT Narrative Resulting Agency Comment Spec In Lab Vik Justin MD CHEMISTRY ORDER TOBI [facility] [place] [address] * XR Chest One View (02/07/2020 5:07 [...] ? Electronically signed by: Trace Lopez MD, [facility] ([phone]), at 02/08/2020 3:54 AM Narrative 02/08/2020 3:54 [...] below. Electronically signed by: Trace Lopez MD, [facility]([phone]), at 02/08/2020 3:54 AM Rell Gutierrez MD IMG DX ORDERABLES * POCT Glucose (02/07/2020 4:21 PM EDT) [facility] Glucose, POC 139 65 - 199 mg/dL [facility] Comment: Supplemental ranges: <140 mg/dL before meals <180 mg/dL all other times of the day Blood specimen (specimen) 02/07/2020 4:21 PM EDT 02/07/2020 4:21 PM EDT Rell Gutierrez MD POINT OF CARE TEST O RDERABLES Performing Organization Address City/State/[facility] Co de Phone Number [facility] [place] [address] * CARDIAC CATHETERIZATION (02/07/2020 3:21 PM EDT) Anatomical Region Laterality Modality Other Narrative 02/07/2020 4:29 PM EDT ?[facility] ? Cardiac Catheterization/Intervention Report ? Patient Name: Jarrett, Danielle ? Procedure Date: 02/07/2020 ? A #: [id number] ? Primary Physician: Jose, Todd T ? Case #: [id number] ? File Name: [id number] ? Catheterization Order Number: [id number] ? [facility] ? Final Report [place], [place] ? Patient Name: ? Danielle Jarrett ? ID#: ?[id number] ? : ?1960 ? Procedure Date: ? February 07, 2020 ? Case #: ? [id number] ? Room: ? 6 ? Case Physician: [...] ?was designated as ASA Class III. The [facility] clinical frailty scale is 5: [...] procedure was Urgent. The indication for ?the dental laboratory worker visit is worsening angina. Chest pain symptom [...] dose administered prior to arrival in the dental laboratory worker. ?Recommended anti-platelet/anti-thrombotic regimen: ?Start aspirin 81 mg daily now and continue for indefinitely. ?Start clopidogrel 75 mg daily now and continue for 12 months then stop. ?These recommendations are made at the time of the intervention. Patient ?and provider preferences or a changing clinical situation may require ?modification of this regimen. Consult [facility] Interventional Cardiology for ?questions. ?The 1 year [...] against any medical treatment. Consult ?http://tools.acc.org/DAPTriskapp/#!/content/calculator/ or [facility] ?Interventional Cardiology for questions. ? Conclusions: ?* [...] present for the entire procedure. ?Dr. Todd Garcai M.D. was present during the moderate sedation ?intraservice time as documented by the sedation nurse. ??Case time = 01:21. ?Dr. Todd Garcia M.D. performed the coronary angiography, stent ?insertion-coronary, access site angiography and vascular closure device. ? Todd Nickries, M.D. ? Electronically Signed by: Todd Mendoza Jose, M.D. ? Report Finalized: 02/07/2020 ??16:24 ? Report Last Ammended: 03/23/2020 ??13:04 ? Procedure Note Todd Garcia MD - 03/23/2020 [facility] Cardiac Catheterization/Intervention Report Patient Name: Danielle Mills Procedure Date: 02/07/2020 A #: [id number] Primary Physician: Todd Garcia Case #: [id number] File Name: [id number] Catheterization Order Number: [id number] [facility] FinalReport [place], [place] Patient Name: Danielle Mills ID#:[id number] :1960 Procedure Date: February 07, 2020 Case [...] was designated as ASA Class III. The [facility] clinical frailty scale is5: Mildly Frail. Diagnostic Tests: Prior Coronary Angiography: LV ejection fraction within 6 months is 30%. Electrocardiography: EKG was assessed by ECG. EKG was Abnormal. EKG showed T-wave inversions and other abnormality. Medications Prior to Procedure: Aspirin, Beta Fernando and Statin. Indications for Diagnostic Cath: The priority of the diagnostic procedure was Urgent. The indicationfor the dental laboratory worker visit is worsening angina. Chest pain symptomassessment [...] the lesion was dilated using a 3.00mm [id number] MM balloon with a maximum inflation pressure [...] dose administered prior to arrival in the dental laboratory worker. Recommended anti-platelet/anti-thrombotic regimen: Start aspirin 81 mg daily now and continue for indefinitely. Start clopidogrel 75 mg daily now and continue for 12 months thenstop. These recommendations are made at the time of the intervention.Patient and provider preferences or a changing clinical situation mayrequire modification of this regimen. Consult [facility] Interventional Cardiologyfor questions. The 1 year bleeding [...] or against any medical treatment.Consult http://tools.acc.org/DAPTriskapp/#!/content/calculator/ or [facility] Interventional Cardiology for questions. Conclusions: * Obstructive [...] PCR (02/07/2020 12:30 PM EDT) Pathologist [facility] SARS-CoV-2 RNA (Rapid) Not Detected Not Detected [facility] Comment: This result should [...] using the Simplexa COVID-19 Direct Assay by [employer] as authorized by the FDA issued Emergency [...] Department of Pathology and Laboratory Medicine at [facility], certified under the Clinical Laboratory Improvement [...] Information for Healthcare Professionals (https://www.cdc.gov/coronavirus/2019-ncov/hcp/index.html). SARS-CoV-2 Source [employer] EV[employer]ORATION OPERATOR Swab SD [facility] Nasopharyngeal swab (specimen) 02/07/2020 12:30 PM EDT 02/07/2020 12:59 PM EDT Comment:Symptoms->Surveillan ce Narrative Resulting Agency Comment Spec In Lab Vik Justin MD MICROBIOLOGY - GENERAL ORDERABLES [facility] [place] [address] * POCT Glucose (02/07/2020 10:58 AM EDT) Glucose, POC 115 65 - 199 mg/dL [facility] Comment: Supplemental ranges: <140 mg/dL before meals <180 mg/dL all other times of the day Blood specimen (specimen) 02/07/2020 10:58 AM EDT 02/07/2020 10:58 AM EDT Rell Gutierrez MD POINT OF CARE TEST O RDERABLES Performing Organization Address [facility]/ZIP Co de Phone Number [facility] [place] [address] * Lavender Tube HOLD (02/07/2020 10:55 AM EDT) Pathologist [facility] Lavender Hold Sample in lab. [facility] Blood specimen (specimen) Venous Draw / Unknown 02/07/2020 10:55 AM EDT 02/07/2020 11:16 AM EDT Kayleigh Crook MD HEMATOLOGY ORDERABLE S Performing Organization Address [facility]/ZIP Co de Phone Number [facility] [place] [address] * Phosphorus (02/07/2020 10:55 AM EDT) Phosphorus 3.0 2.5 - 4.5 mg/dL [facility] Blood specimen (specimen) 02/07/2020 10:55 AM EDT 02/07/2020 11:15 AM EDT Narrative Resulting Agency Comment Spec In Lab Rell Gutierrez MD CHEMISTRY ORDERABLES Performing Organization Address [facility]/ZIP Co de Phone Number [facility] [place] [address] * Magnesium (02/07/2020 10:55 AM EDT) [facility] Magnesium 1.00 0.69 - 1.07 mmol/L [facility] Blood specimen (specimen) 02/07/2020 10:55 AM EDT 02/07/2020 11:15 AM EDT Narrative Resulting Agency Comment Spec In Lab Rell Gutierrez MD CHEMISTRY ORDERABLES Performing Organization Address [facility] de Phone Number [facility] [place] [address] * Heparin (unfractionated) Level (02/07/2020 10:55 AM EDT) [facility] UF Heparin 0.44 IU/mL [facility] Comment: Guidelines for therapeutic [...] MD HEMATOLOGY ORDBelgica LOPES Performing Organization Address [facility] Co de Phone Number [facility] [place] [address] * (ABNORMAL) Troponin (02/07/2020 10:55 AM EDT) [facility] Troponin-T 0.13(H) 0.00 - 0.00 ng/mL [facility] Comment: The 99th percentile for Troponin T is less than 0.01 ng/mL, any detectable cTnT concentration using this assay should be considered elevated. According to the third universal definition of myocardial infarction the following criteria with a clinical presentation consistent with acute myocardial ischemia meets the diagnosis for a myocardial infarction (ND). Detection of a rise and/or fall of cTnT, with at least one value greater than the 99th percentile (> or = 0.01) and with at least one of the following ?? Symptoms of ischemia ?? New or presumed new significant MF-mzggesi-E wave (ST-T) changes or new left bundle [...] additional sample may be indicated. Reference: Third [place] Definition of Myocardial Infarction. Journal of the [place] College [employer]iology 2012;60:1581-98 Blood specimen (specimen) 02/07/2020 10:55 AM EDT 02/07/2020 11:15 AM EDT Narrative Resulting Agency Comment Spec In Lab Vik Justin MD CHEMISTRY ORDER TOBI [facility] [place] [address] * ECHO COMPLETE W CONTRAST (02/07/2020 10:46 AM EDT) Pathologist [facility] EF 61 HEARTLAB SYSTEM Anatomical Region Laterality Modality Other 02/07/2020 Narrative 02/07/2020 1:49 PM EDT Procedure: ?Transthoracic Echocardiogram Patient: ?JARRETT DANIELLE Mcintosh ?(Age): 1960(59y) Med Rec#: ? [id number] ?Sex: ?F ? Site Loc: ? [facility] ?Ht / Wt: ??165(cm)/118(kg) Pt. Loc: ?[facility] ? BSA: ?2.21 Study Date: ?? 02/07/2020 ?Pt. Type: Inpatient Tape: ? Referring: Rell Gutierrez ??([id number]) Referring: LISY Reading: Ruslan Mcfarlane ([id number]) Maintenance Technician 3Rd Shift: Laura Brown Diagnosis: *Non-ST elevation (NSTEMI) myocardial [...] Vmax ?0.61 ? m/sec ? MV deceleration [id number] ?msec ? MV A-wave Vmax ?0.77 ? [...] ? Mid-Inferior ?Normal ? Mid-Inferoseptal ?Hypokinetic ? [place]-Septal ? Hypokinetic ? [place]-Anterior ? Akinetic ? [place]-Lateral ?Akinetic ? [place]-Inferior ? Hypokinetic ? [place]-Tip ?Akinetic ? This report has been electronically signed by: Ruslan Mcfarlane MD ? 02/07/2020 13:49:14 Images reviewed and interpretation verified [facility] Cardiac Ultrasound Laboratory Procedure Note Ruslan Mcfarlane MD - 02/07/2020 Procedure: Transthoracic Echocardiogram Patient: JARRETT BUSTILLO(Age): 1960(59y) Med Rec#: [id number] Sex: F Site Loc: [facility] Ht / Wt: 165(cm)/118(kg) Pt. Loc: U BSA: 2.21 Study Date: 02/07/2020 Pt. Type: Inpatient Tape: Referring: Rell Gutierrez ([id number]) Referring: LISY Reading: Ruslan Mcfarlane ([id number]) Maintenance Technician 3Rd Shift: Laura Brown Diagnosis: *Non-ST elevation (NSTEMI) myocardial [...] MV E-wave Vmax 0.61 m/sec MV deceleration [id number] msec MV A-wave Vmax 0.77 m/sec MV [...] Normal Mid-Posterolateral Normal Mid-Inferior Normal Mid-Inferoseptal Hypokinetic [place]-Septal Hypokinetic [place]-Anterior Akinetic [place]-Lateral Akinetic [place]-Inferior Hypokinetic [place]-Tip Akinetic This report has been electronically signed by: Ruslan Mcfarlane MD 02/07/2020 13:49:14 Images reviewed and interpretation verified [facility] Cardiac Ultrasound Laboratory Rell Gutierrez MD [...] ? Electronically signed by: Varghese Richmond MD, [facility] ([phone]), at 02/07/2020 9:53 AM Narrative 02/07/2020 9:53 [...] below. Electronically signed by: Varghese Richmond MD, [facility]([phone]), at 02/07/2020 9:53 AM Vik Justin MD IMG DX ORDERABL ES * CARDIAC CATHETERIZATION (02/07/2020 9:00 AM EDT) Anatomical Region Laterality Modality Other Narrative 02/07/2020 9:04 AM EDT ?[facility] ? Cardiac Catheterization/Intervention Report ? Patient Name: Danielle Mills ? Procedure Date: 02/07/2020 ? A #: [id number] ? Primary Physician: Jose, Todd T ? Case #: [id number] ? File Name: [id number] ? Catheterization Order Number: [id number] ? [facility] ? Final Report [place], [place] ? Patient Name: ? Danielle Jarrett ? ID#: ?[id number] ? : ?1960 ? Procedure Date: ? [...] procedure was Urgent. The indication for ?the dental laboratory worker visit is ACS less than or equal [...] 8Fr IABP was inserted via the right PRESS ASSISTANT using ultrasound guidance. ?The IABP was advanced via the right PRESS ASSISTANT into the distal aortic arch over ?a wire. ??After confirming position, the IABP was sutured in place and ?connected to the console. ??The counterpulsation was initiated and the ?patient was noted to become chest pain free. ?Successful inseriton of a 50cc IABP via an 8fr sheat in the right PRESS ASSISTANT. ?The attending physician was present for the entire procedure. ?Dr. Todd Garcia M.D. was present during the moderate sedation ?intraservice time as documented by the sedation nurse. ??Case time = 00:34. ?Dr. Todd Garcia M.D. performed the coronary angiography, left heart ?catheterization and IABP insertion in dental laboratory worker. ? Todd Garcia M.D. ? Electronically Signed by: Todd Garcia M.D. ? Report Finalized: 02/07/2020 ??08:57 ? Report Last Ammended: 03/23/2020 ??13:05 ? Procedure Note Todd Garcia MD - 03/23/2020 [facility] Cardiac Catheterization/Intervention Report Patient Name: Danielle Mills Procedure Date: 02/07/2020 A #: [id number] Primary Physician: Todd Garcia Case #: [id number] File Name: [id number] Catheterization Order Number: [id number] [facility] FinalReport [place], [place] Patient Name: Danielle Mills ID#:[id number] :1960 Procedure Date: February 07, 2020 Case [...] patient was designated as ASAClass IV. The [facility] clinical frailty scale is 5: Mildly Frail. Diagnostic Tests: Prior Coronary Angiography: LV ejection fraction within 6 months is 30%. Electrocardiography: EKG was assessed by ECG. EKG was Abnormal. EKG showed T-wave inversions. Medications Prior to Procedure: Aspirin and Statin. Indications for Diagnostic Cath: The priority of the diagnostic procedure was Urgent. The indicationfor the dental laboratory worker visit is ACS less than or equal [...] 8Fr IABP was inserted via the right PRESS ASSISTANT using ultrasoundguidance. The IABP was advanced via the right PRESS ASSISTANT into the distal aortic archover a wire. [...] angiography, leftheart catheterization and IABP insertion in dental laboratory worker. Todd Garcia M.D. Electronically Signed by: Todd Garcia M.D. Report Finalized: 02/07/2020 08:57 Report Last Ammended: 03/23/2020 13:05 Todd Garcia MD CARDIAC CATH ORDERAB LES * POCT Glucose (02/07/2020 7:32 AM EDT) Glucose, POC 147 65 - 199 mg/dL [facility] Comment: Supplemental ranges: <140 mg/dL before meals <180 mg/dL all other times of the day Blood specimen (specimen) 02/07/2020 7:32 AM EDT 02/07/2020 7:32 AM EDT Rell Gutierrez MD POINT OF CARE TEST O RDERABLES Performing Organization Address City/State/[facility] Co de Phone Number [facility] [place] [address] * (ABNORMAL) Hemoglobin A1c (02/07/2020 7:29 AM EDT) Hemoglobin A1c 6.8(H) 4.3 - 5.6 % [facility] Comment: Reference Range: 4.3 [...] Mellitus, Diabetes Care 2013; 36: Suppl. 1, M77-27 Estimated Average Glucose 147 mg/dL [facility] Comment: [...] into estimated average glucose values. ??Diabetes Care 2008:31(8):9949-5386. Blood specimen (specimen) Venous Draw / Unknown 02/07/2020 7:29 AM EDT 02/07/2020 8:47 AM EDT Narrative Resulting Agency Comment Spec In Lab Keyon Foley MD CHEMISTRY ORDERABLES Performing Organization Address [facility] de Phone Number [facility] [place] [address] * Sedimentation rate (02/07/2020 7:29 AM EDT) Sedimentation Rate Automated 25 2 - 39 mm/hr [facility] Comment: Effective April 21, [...] MD HEMATOLOGY ORDERABLE S Performing Organization Address [facility] de Phone Number [facility] [place] [address] * (ABNORMAL) Hepatic Function Panel (02/07/2020 7:29 AM EDT) [facility] Protein, Total 6.0(L) 6.1 - 8.0 gm/dL [facility] Albumin 3.8 3.2 - 5.2 gm/dL [facility] Aspartate Aminotransferase 35(H) 0 - 30 unit/L [facility] Alanine Aminotransferase 36(H) 0 - 30 unit/L [facility] Alkaline Phosphatase 72 35 - 105 unit/L [facility] Bilirubin, Total 0.4 0.2 - 1.3 mg/dL [facility] Bilirubin, Direct 0.1 0.0 - 0.3 mg/dL [facility] Blood specimen (specimen) Venous Draw / Unknown 02/07/2020 7:29 AM EDT 02/07/2020 7:45 AM EDT Narrative Resulting Agency Comment Spec In Lab Rell Gutierrez MD CHEMISTRY ORDERABLES [facility] [place] [address] * Lipase (02/07/2020 7:29 AM EDT) [facility] Lipase 28 0 - 60 unit/L [facility] Blood specimen (specimen) Venous Draw / Unknown 02/07/2020 7:29 AM EDT 02/07/2020 7:45 AM EDT Narrative Resulting Agency Comment Spec In Lab Rell Gutierrez MD CHEMISTRY ORDERABLES [facility] [place] [address] * (ABNORMAL) CRP, acute inflammation (02/07/2020 7:29 AM EDT) [facility] C-Reactive Protein 18.2(H) <=4.9 mg/L [facility] Blood specimen (specimen) Venous Draw / Unknown 02/07/2020 7:29 AM EDT 02/07/2020 7:45 AM EDT Narrative Resulting Agency Comment Spec In Lab Rell Gutierrez MD CHEMISTRY ORDERABLES Performing Organization Address City/[facility]/ZIP Co de Phone Number [facility] [place] [address] * Differential, Automated (02/07/2020 7:29 AM EDT) Neutrophil % 64.8 % [facility] Neutrophil Absolute 5.08 1.70 - 6.10 x10(3)/[facility] LABORATORY Lymph % 27.1 % [facility] Lymphocytes Abs 2.1 0.9 - 3.2 x10(3)/[facility] LABORATORY Monocyte % 6.8 % [facility] Monocyte Abs 0.5 0.3 - 0.9 x10(3)/[facility] LABORATORY Eos % 0.5 % [facility] Eosinophils Abs 0.0 0.0 - 0.4 x10(3)/[facility] LABORATORY Basophil % 0.5 % [facility] Baso Absolute 0.0 0.0 - 0.1 x10(3)/[facility] LABORATORY Immature Gran % 0.30 % [facility] Comment: Immature granulocytes(IG's)percentage and absolute count will include metamyelocytes, myelocytes, and promyelocytes. Blood smears from CBCs yielding IG's will be scanned manually for concordance. If this scan disagrees with the automated IG or if promyelocytes are noted, a manual differential will be performed. Immature Gran Absolute 0.02 0.00 - 0.04 x10(3)/[facility] LABORATORY Blood specimen (specimen) 02/07/2020 7:29 AM EDT 02/07/2020 7:45 AM EDT Narrative Resulting Agency Comment Spec In Lab Vik Justin MD HEMATOLOGY ORDE MARIANNE [facility] [place] [address] * (ABNORMAL) Hemogram (02/07/2020 7:29 AM EDT) [facility] White Blood Cell 7.8 4.0 - 9.5 x10(3)/ L [facility] Red Blood Cell 5.33(H) 4.00 - 5.21 x10(6)/mc L [facility] Hemoglobin 13.7 11.7 - 15.5 gm/dL [facility] Hematocrit 45.2 35.7 - 45.8 % [facility] Mean Cell Volume 84.8 82.6 - 94.4 fL [facility] Mean Cell Hemoglobin 25.7(L) 27.1 - 32.0 pg [facility] Mean Cell Hemoglobin Concentration 30.3(L) 31.7 - 35.0 gm/dL [facility] Platelet 173 145 - 357 x10(3)/mc L [facility] RDW Standard Deviation 43.9 37.0 - 46.0 fL [facility] RDW coefficient of variation 14.2(H) 11.5 - 14.1 % [facility] Mean Platelet Volume 11.0 7.6 - 12.9 fL [facility] NRBC% auto 0.0 % [facility] NRBC Absolute 0.000 0.000 - 0.000 x10(3)/ L [facility] Blood specimen (specimen) 02/07/2020 7:29 AM EDT 02/07/2020 7:45 AM EDT Narrative Resulting Agency Comment Spec In Lab Vik Justin MD HEMATOLOGY EDEN LOPES [facility] [place] [address] * Prothrombin Time (02/07/2020 7:29 AM EDT) [facility] Prothrombin Time 11.8 9.4 - 12.5 sec [facility] International Normalization Ratio 1.0 [facility] Comment: An INR <2.0 [...] MD HEMATOLOGY ORDE MARIANNE Performing Organization Address City/[facility]/ZIP Co de Phone Number [facility] [place] [address] * (ABNORMAL) pro-Brain Natriuretic Peptide (02/07/2020 7:29 AM EDT) NT-proBNP 893(H) <=125 pg/mL [facility] Blood specimen (specimen) 02/07/2020 7:29 AM EDT 02/07/2020 7:45 AM EDT Narrative Resulting Agency Comment Spec In Lab Vik Justin MD CHEMISTRY ORDER TOBI Performing Organization Address City/[facility]/ZIP Co de Phone Number [facility] [place] [address] * Lipid Panel (Reflex Direct LDL) (02/07/2020 7:29 AM EDT) Cholesterol, Total 186 mg/dL [facility] Comment: Lower Risk: <200 mg/dL Average Risk: 200-239 mg/dL Higher Risk: >ru=915 mg/dL Triglyceride 161 mg/dL [facility] Comment: Average Risk/Lower Risk: <150 mg/dL Borderline High Risk: 150-199 mg/dL High Risk: 200-499 mg/dL Very High Risk: >hp=816 mg/dL HDL Cholesterol 34 mg/dL [facility] Comment: Males: ?? Higher Risk: <40 mg/dL Females: ?? HIgher Risk: <50 mg/dL LDL Cholesterol 120 mg/dL [facility] Comment: Lowest Risk: <100 mg/dL Lower Risk: 100-129 mg/dL Borderline High Risk: 130-159 mg/dL High Risk: 160-189 mg/dL Very High Risk: >pb=948 mg/dL Cholesterol/HDL Ratio 5.5 ratio [facility] Lipid Interpretation See Note [facility] Comment: Lipid management should be guided by a patient? s ASCVD risk, goals and preferences. ACC/AHA Guidelines recommend high intensity statin if clinical ASCVD or LDL greater than or equal to 190 mg/dL. http://D2S/GWE-NRL-Zkyprqypc Adults aged 40-75 with LDL 70-189 mg/dL should have their 10 year ASCVD risk estimated with the ACC/AHA ASCVD risk estimator jewelry http://tools.acc.org/ZLDZS-Ettd-Cfqyjvenc/ Statin should be discussed if risk greater [...] Lab Vik Justin MD CHEMISTRY ORDER TOBI [facility] [place] [address] * TSH (02/07/2020 7:29 AM EDT) Thyroid Stimulating Hormone 1.30 0.27 - 4.20 mcIU/mL [facility] Blood specimen (specimen) 02/07/2020 7:29 AM EDT 02/07/2020 7:45 AM EDT Narrative Resulting Agency Comment Spec In Lab Vik Justin MD CHEMISTRY ORDER TOBI Performing Organization Address [facility] Co de Phone Number [facility] [place] [address] * (ABNORMAL) Troponin (02/07/2020 7:29 AM EDT) Troponin-T 0.10(H) 0.00 - 0.00 ng/mL [facility] Comment: Called by: graciela, Read back by: koby yates (skin drier), Date/Time:_02/07/20 08:14. The 99th percentile for Troponin T is less than 0.01 ng/mL, any detectable cTnT concentration using this assay should be considered elevated. According to the third universal definition of myocardial infarction the following criteria with a clinical presentation consistent with acute myocardial ischemia meets the diagnosis for a myocardial infarction (ND). Detection of a rise and/or fall of cTnT, with at least one value greater than the 99th percentile (> or = 0.01) and with at least one of the following ?? Symptoms of ischemia ?? New or presumed new significant QC-nlcgnaj-X wave (ST-T) changes or new left bundle [...] additional sample may be indicated. Reference: Third [place] Definition of Myocardial Infarction. Journal of the [place] [employer] 2012;60:1581-98 Blood specimen (specimen) 02/07/2020 7:29 AM EDT 02/07/2020 7:45 AM EDT Narrative Resulting Agency Comment Spec In Lab Vik Justin MD CHEMISTRY ORDER TOBI Performing Organization Address City/[facility]/ZIP Co de Phone Number [facility] [place] [address] * (ABNORMAL) BMP w/fasting Glucose (02/07/2020 7:29 AM EDT) Glucose Fasting 155(H) 65 - 99 mg/dL [facility] Comment: ?Fasting* Glucose Interpretive [...] of Diabetes Mellitus, Position Statement from the [place] [employer]. ??Diabetes Care, Volume 33, Supplement 1, May 2009 Blood Urea Nitrogen 7(L) 8 - 18 mg/dL [facility] Creatinine 0.69(L) 0.70 - 1.20 mg/dL [facility] Sodium 139 135 - 145 mmol/L [facility] Potassium 4.1 3.5 - 5.0 mmol/L [facility] Comment: Please note: ??Patients with WBC >100,000 may have falsely elevated Potassium levels. ??For accurate Potassium quantification in these patients send serum separator tube (gold top) for subsequent determinations. ??Contact the Clinical Chemistry Laboratory if there are any questions. Chloride 105 98 - 107 mmol/L [facility] Carbon Dioxide 21(L) 22 - 31 mmol/L [facility] Anion Gap 13 5 - 15 mmol/L [facility] Calcium 8.1(L) 8.5 - 10.5 mg/dL [facility] Est Glomerular Filtration Rate 96 >=60 mL/min/1. 73 m?? [facility] Comment: The eGFR was calculated using the CKD-EPI equation. As with all creatinine based estimates of kidney function, eGFR values calculated with the CKD-EPI equation are not accurate in patients with acute kidney failure, extremes of body mass or the acutely ill. http://[email or web address]/[facility] HOBARTnkf eGFR 111 >=60 mL/min/1. 73 m?? [facility] Comment: The eGFR was calculated using the CKD-EPI equation. As with all creatinine based estimates of kidney function, eGFR values calculated with the CKD-EPI equation are not accurate in patients with acute kidney failure, extremes of body mass or the acutely ill. http://[email or web address]/DHnkf Blood specimen (specimen) 02/07/2020 7:29 AM EDT 02/07/2020 7:45 AM EDT Narrative Resulting Agency Comment Spec In Lab Vik Justin MD CHEMISTRY ORDER TOBI Performing Organization Address City/[facility]/ZIP Co de Phone Number [facility] [place] [address] * EKG 12 Lead (02/07/2020 6:33 AM EDT) Ventricular rate 80 BPM MUSE SYSTEM Atrial Rate 80 BPM MUSE SYSTEM P-R Interval 150 ms MUSE SYSTEM QRS Duration 82 ms MUSE SYSTEM Q-T Interval 426 ms MUSE SYSTEM QTC Calculated (Bezet) 491 ms MUSE SYSTEM Calculated P [place] 54 degrees MUSE SYSTEM Calculated R [place] 6 degrees MUSE SYSTEM Calculated T [place] 103 degrees MUSE SYSTEM INTERPRETATION Normal sinus rhythm Anterior infarct , age undetermined Possible Left atrial enlargement T wave abnormality, consider lateral ischemia Abnormal ECG No previous ECGs available I personally reviewed the tracing and edited the fellows interpretation Confirmed by fellow Fabian Waters ([id number]) on 02/07/2020 2:39:52 PM Confirmed by MD [...] 0745 (Given - Provider: Laura Sommer RN)0755 (MAR Hold - Provider: Admin Adt - [...] - Reason: Transfer to a Procedural area)1549 ([facility] Unhold - Provider: Admin Adt) 0806 [...] Lissa Sabillon, SHAR)0823 (Stopped - Provider: Maribel Babcock RN) magnesium sulfate 2 g in sterile water 50 mL (COMPLETED) 2 g, Intravenous, ONCE, 1 dose, On Fri02/09/20 at 0500, Administer over 120 Minutes 0517 (New Bag - Provider: Gamaliel Shelton, SHAR)0717 (Stopped - Provider: Gamaliel Shelton, SHAR) metoprolol succinate XL (Toprol-XL) tablet 50 mg [...] Adt)203 (Given - Provider: Lissa Sabillon RN) 0807 [...] (Rate/Dose Verify - Provider: Alyce Navarro, RN)1401 ([facility] Hold - Provider: Admin Adt - Reason: Transfer to a Procedural area)1549 ([facility] Unhold - Provider: Admin Adt)1600 (Rate/Dose Verify [...] 1049 (Given - Provider: Alyce Navarro RN)1401 ([facility] Hold - Provider: Admin Adt - Reason: Transfer to a Procedural area)1549 ([facility] Unhold - Provider: Admin Adt) 0109 (Given - Provider: Lissa Sabillon RN) clonazePAM (KlonoPIN) tablet 0.5 mg 0.5 mg, Oral, 2 TIMES DAILY PRN, Starting on Fri02/07/20 at 0921, Until Fri02/09/20 at 1430, Anxiety, DO NOT SPLIT, CRUSH OR OPEN, Routine 1401 ([facility] Hold - Provider: Admin Adt - Reason: Transfer to a Procedural area)1549 ([facility] Unhold - Provider: Admin Adt) cyclobenzaprine (Flexeril) tablet 10 mg 10 mg, Oral, 3 TIMES DAILY PRN, Starting on Fri02/07/20 at 0921, Until Fri02/09/20 at 1430, Muscle spasms, Routine 1401 ([facility] Hold - Provider: Admin Adt - Reason: Transfer to a Procedural area)1549 ([facility] Unhold - Provider: Admin Adt) dextrose [...] the duration of the active insulin. 0755 ([facility] Hold - Provider: Admin Adt - Reason: Transfer to a Procedural area)0906 ([facility] Unhold - Provider: Admin Adt)1401 ([facility] Hold - Provider: Admin Adt - Reason: Transfer to a Procedural area)1549 ([facility] Unhold - Provider: Admin Adt) fentaNYL [...] Routine 1826 (Given - Provider: Alyce Navarro, RN) fentaNYL 50 mcg/mL multi-dose injection (CANCELED) ONCE PRN, Starting on Fri02/07/20 at 0805, Until Fri02/07/20 at 0921, Cath (Intra-Procedure), Routine 0805 (Given - Provider: Maxime Trujillo, RN)0825 (Given - Provider: Maxime Trujillo, RN)0829 (Given - Provider: Elsie Camacho RN) [...] duration of the active insulin., Routine 0755 ([facility] Hold - Provider: Admin Adt - Reason: Transfer to a Procedural area)09 ([facility] Unhold - Provider: Admin Adt)140 ([facility] Hold - Provider: Admin Adt - Reason: Transfer to a Procedural area)154 ([facility] Unhold - Provider: Admin Adt) glucose [...] - Reason: Transfer to a Procedural area)09 ([facility] Unhold - Provider: Admin Adt)140 ([facility] Hold - Provider: Admin Adt - Reason: Transfer to a Procedural area)1549 ([facility] Unhold - Provider: Admin Adt) heparin (porcine) 1,000 unit/mL injection (CANCELED) ONCE PRN, Starting on Fri02/07/20 at 0823, Until Fri02/07/20 at 0921, Cath (Intra-Procedure), Routine 08 (Given - Provider: Elsie Camacho RN) heparin (porcine) 1,000 unit/mL injection (CANCELED) ONCE PRN, Starting on Fri02/07/20 at 1420, Until Fri02/07/20 at 1527, Cath (Intra-Procedure), Routine 1420 (Given - Provider: Ekaterina Romo RN)1427 (Given - Provider: lEsie Camacho RN) iohexoL (Omnipaque) 350 mg/mL solution [...] Routine documented in this encounter Care Teams Pusher Operator Relationship Specialty Start Date End Date Francy Lowe, HOG TRADER PCP - General Family Medicine 10/19/19 02/11/21 documented as of this encounter
--- OUTSIDE RECORDS SUMMARY | 2024-06-25 11:07 | XMS_ITS | Encounter Summary ---
Author Organization [facility] [place] [address] Care Team Providers Care Title Assistant Name Role Phone Francy Lowe APRN Primary Care Provider + Encounter Details Date Type Department Care Team (Late st Contact Info) Description 02/07/2020 3:00 AM EDT Ancillary Procedure Radiology Library [place] [address] Francy Lowe APRN [address] [id number] Social History Tobacco Use Types Packs/Day Years [...] EDT Office Visit Neurosurgery at [address] [place] [phone] [place] [address] Irena Pierre PA [address] [place] [address] documented as of this encounter Procedures Procedure Name Priority Date/Time Associated Diagnosis Comments FILM LIBRARY STORAGE ONLY CT CHEST ABDOMEN PELVIS Routine 02/07/2020 2:56 AM EDT documented in this encounter Results * Film Library- Storage Only CT Chest Abdomen Pelvis (02/07/2020 2:56 AM EDT) Narrative [facility] - 02/07/2020 2:56 AM EDT This exam is auto-finalizing. It's purpose is for storage only. Francy Lowe APRN IMRadha FILM LIBRARY ORD ERABLES [place], [place] documented in this encounter Visit Diagnoses Not on filedocumented in this encounter Care Teams Title Assistant Relationship Specialty Start Date End Date Francy Lowe APRN PCP - General Family Medicine 10/19/19 02/11/21 documented as of this encounter
--- OUTSIDE RECORDS SUMMARY | 2024-06-25 11:07 | XMS_ITS | Encounter Summary ---
[place] [address] Care Team Providers Care Resistance Welder Name Role Phone Francy Lowe APRN Primary Care Provider + Reason for Visit * Reason Onset Date Comments Medication Refill 12/09/2019 Encounter Details Date Type Department Care Team (Late st Contact Info) Description 12/09/2019 Ref[place] [address] Bonnie Guillen RN Type 2 diabetes, controlled, [...] PM EDT Office Visit Neurosurgery at [address] [place] [address] Mary Hart MD [address] [place] [address] Irena Pierre PA [address] [place] [address] documented as of this encounter Visit Diagnoses Diagnosis Type 2 diabetes, controlled, with neuropathy Type II or unspecified type diabetes mellitus with neurological manifestations, not stated as uncontrolled documented in this encounter Care Teams Resistance Welder Relationship Specialty Start Date End Date Francy Lowe APRN PCP - General Family Medicine 10/19/19 02/11/21 documented as of this encounter
--- OUTSIDE RECORDS SUMMARY | 2024-06-25 11:07 | XMS_ITS | Encounter Summary ---
Author Organization [facility] Address [facility] [place] [address] Care Team Providers Care Utilization Engineer Name Role Phone Francy Lowe APRN Primary Care Provider + Reason for Visit * Auth/Cert Specialty Diagnoses / Procedures Referred By Jasson mendoza Referred To Contact Diagnoses NSTEMI (non-ST elevated myocardial infarction) nstemi Referral ID Status Reason Start Date Expiration Date Visits Re quested Visits Authorized [id number] 1 1 Encounter Details Date Type Department Care Team (Late st Contact Info) Description 02/07/2020 7:30 AM EDT - 02/07/2020 8:30 AM EDT [place] [address] Todd Garcia MD [facility] [place] [address] CARDIAC CATHETERIZATION Social History Tobacco Use Types [...] Danielle Mills Patient Age: 59 y.o. Language: Serbian Race: White Ethnicity: Not nor Admit date: [...] cough, leg swelling. No palpitations. ?? At [facility] starting 9 pm, VSS stable 113/73 HR 85 bpm, RR 19 Questionable CLEMENTINA in V1-V2. Troponin 0.24, lipase 117 CT abdomen/plevis reportedly unremarkable. Pt is s/p CCY She received 4mg IV morphine , Zofran She was started on Heparin and NTG drip. Received ASA 324mg @ 1:32 am at [facility] Plavix 300mg @ 1:55am and then 300mg @2:21am. Consulted with Cards fellow at [facility] and decided to transfer. Hospital Course: #NSTEMI s/p PCI with JEANETH to LAD, LPA and LPL1 Admitted to the cardiology service. The patient was taken to the physical laboratory assistant and noted to have 3 vessel disease. [...] priority for the procedure was Emergent. [facility] [...] appointments: During 8am-5pm Friday through Friday call [phone] to speak with a nurse in the cardiology clinic All other times call [phone] and ask to speak to the pulmonary fellow apron trimmer. Follow up Appointments: ?? Francy Lowe PCP on Friday02/21/20 @ 2:30pm Dr. Carlos Jenkins ([facility] Cardiology) on 03/02/20 @ 2:45pm Future Appointments Date Time Provider Department Center 03/07/2020 10:00 AM Marta Rivera MD [facility] PCP: Francy Lowe APRN at [phone] Your Inpatient Doctor(s) at [facility]: Rell Gutierrez MD - Attending physician Your Primary Care Provider: Francy Lowe APRN [address] / [place] [address] For questions regarding issues relating to your hospitalization on the Hospital Medicine Service, please contact your inpatient physician through the [facility] Social Work Therapist [phone]. Issues after hours and on weekends will be handled by the Hospitalist staff on-call. General Instructions None Future Appointments and Orders Future Appointments and Orders Future Appointments Provider Department Dept Phone 03/07/2020 10:00 AM Marta Rivera MD Endocrinology at [facility] Arrive at: Home [phone] Please do not come in for this visit. Your provider will call you at the number you provided. Future Orders Complete By Expires Referral to Cardiac Rehab [[id number] Custom] As directed Process Instructions: If no progress note charted, please enter Clinical details in comments. Scheduling Instructions: Questions: My question or request is: NSTEMI, PCI- CR at [facility] Discharge References/Attachments None documented in this encounter [...] appointments: During 8am-5pm Friday through Friday call [phone] to speak with a nurse in the cardiology clinic All other times call [phone] and ask to speak to the pulmonary fellow apron trimmer. Follow up Appointments: ?? Francy Lowe, PCP on Friday02/21/20 @ 2:30pm Dr. Carlos Jenkins ([facility] Cardiology) on 03/02/20 @ 2:45pm Future Appointments Date Time Provider Department Center 03/07/2020 10:00 AM Marta Rivera MD [facility] PCP: Farncy Lwoe APRN at [phone] Your Inpatient Doctor(s) at [facility]: Rell Gutierrez MD - Attending physician Your Primary Care Provider: Francy Lowe APRN [address] / [place] [address] For questions regarding issues relating to your hospitalization on the Hospital Medicine Service, please contact your inpatient physician through the [facility] Social Work Therapist [phone]. Issues after hours and on weekends will [...] that she works with on this at [facility]. Also states that she is on a financial program at [facility]. CM encouraged patient to call the financial assistance number provided on the brochure for screening and to discuss the bill from this hospitalization to determine what could potentially be used towards her Medicaid spend down as well. Patient verbalized understanding and denies any further questions or concerns at this time. CM updated MANAGER NON PROFIT and completed consult that was placed for social work re: financial concerns. Clarisa Rees RN, MSN [employer] [facility]er - Cardiology Office of Care Management Pager: [phone] Work * Rell Gutierrez MD - 02/09/2020 [...] below. Electronically signed by: Trace Lopez MD, [facility] ([phone]), at 02/08/2020 3:54 AM Cardiac Catheterization Final Result XR Chest One View Final Result Findings suggestive of mild volume overload without kuldeep pulmonary edema. Thank you for letting us participate in the care of this patient. For questions regarding this report, please contact the number below. Electronically signed by: Varghese Richmond MD, [facility] ([phone]), at 02/07/2020 9:53 AM Cardiac Catheterization Final [...] home Maria Bolaños MD PGY1 Cardiology S2 #5515 CARDIOLOGY ATTENDING NOTE Patient: Danielle Mills Date [...] anterior ST-T wave changes. Went urgently to physical laboratory assistant due to ongoing pain on 02/06 - 3VD including INTERIOR WALL ASSEMBLER RCA; IABP placed due to ongoing pain. [...] Dr. Bolaños. Rell Gutierrez MD, MPH, RPVI, [facility] Pager [phone] Cardiovascular Baton TeacherSchool Traffic [place] [address] * Rell Gutierrez MD - 02/08/2020 7:04 [...] contact the number below. Electronically signed by: Trcae Lopez MD, [facility] ([phone]), at 02/08/2020 3:54 AM Cardiac Catheterization Final Result XR Chest One View Final Result Findings suggestive of mild volume overload without kuldeep pulmonary edema. Thank you for letting us participate in the care of this patient. For questions regarding this report, please contact the number below. Electronically signed by: Varghese Richmond MD, [facility] ([phone]), at 02/07/2020 9:53 AM Cardiac Catheterization Final [...] Full code Dispo: transfer to floor Maria Bolaoñs MD PGY1 Cardiology S2 #0925 CARDIOLOGY ATTENDING NOTE Patient: Danielle Mills Date [...] anterior ST-T wave changes. Went urgently to physical laboratory assistant due to ongoing pain on 02/06 - 3VD including INTERIOR WALL ASSEMBLER RCA; IABP placed due to ongoing pain. [...] Dr. Bolaños. Rell Gutierrez MD, MPH, RPVI, [facility] Pager [phone] Cardiovascular Baton TeacherSchool Traffic [place] [address] * Carmella Alexander - 02/07/2020 9:02 PM [...] Carmella Alexander MD, PGY-2 Cardiology S1/S2, Pager [phone] 02/07/2020 * Ney Sylvester MD - 02/07/2020 [...] EDT 0630 Pt admitted for [facility] with c/o chest pain. Pt states she [...] fever, cough, leg swelling. No palpitations. At [facility] starting 9 pm, VSS stable 113/73 HR 85 bpm, RR 19 Questionable CLEMENTINA in V1-V2. Troponin 0.24, lipase 117 CT abdomen/plevis reportedly unremarkable. Pt is s/p CCY She received 4mg IV morphine , Zofran She was started on Heparin and NTG drip. Received ASA 324mg @ 1:32 am at [facility] Plavix 300mg @ 1:55am and then 300mg @2:21am. Consulted with Cards fellow at [facility] and decided to transfer. Personal and social [...] performed by Nimesh Alicia MD at [facility] ENDOSCOPY ??? RECTOCELE REPAIR 2014 Dr. Boo @ [facility] ??? SHOULDER SURGERY Left 06/05/2017 [...] Received ASA 324mg @ 1:32 am at [facility] -Plavix 300mg @ 1:55am and then [...] attempt. Thank you. Arnaud Teague, MSN, RN-, [facility] Tobacco Special Delivery Worker [facility] Pager #[phone] * Consult Note - Chelsey Beltre RN [...] (Interventions Implemented as Appropriate) 02/08/20 0800 02/08/20 3618 Plan of Care Review Progress -- improving [...] spouse would be surrogate decision maker per [place] surrogate decision making law. (Only good for 90 days) Any patient receiving care at [facility] must abide by [place] law. The hierarchy for surrogate decision making [...] (i) The agent with financial power of state's attorney or a conservator appointed in accordance [...] at DC: none Home Address Listed as: [address] [place] [phone] Social & Family Supports: Extended Emergency Contact Information Primary Emergency Contact: Andrés Mills Address: [address] [place] [phone] [facility] [place] Relation: Spouse [...] Preferred Pharmacy: [id number] - [place] - [address] [place] [address] [id number] - [place], [place] - [address] [facility] [address] [facility] [address] [place] [address] - [address] [address] Primary Care Provider: Francy Lowe APRN [phone] Patient/Caregiver Goals of Treatment: DC home Potential [...] of care planning. Clarisa Rees RN, MSN, glue cook Office of Care Management Pager: [phone] Work * Brief Op Note - Todd Garcia MD - 02/07/2020 3:26 PM EDT Images from the original note were not included. Preliminary Cardiac Catheterization Procedure Note: Patient Name: Danielle Mills : [id number] MR#: [id number] Case Date: 02/07/2020 Social Work Therapist: Surgeon(s) and Role: * Todd Garcia MD - Primary Preoperative diagnosis: ?CAD Postoperative diagnosis: *ASCVD * Procedure(s) performed: Stent insertion, coronary Access: left FUND ACCOUNTANT--> Perclosed A time-out was conducted prior to [...] Procedure Note: Patient Name: Danielle Mills : [id number] MR#: [id number] Case Date: 02/07/2020 Social Work Therapist: Surgeon(s) and Role: * Todd Garcia MD - Primary * David Vigil MD - Fellow Preoperative diagnosis: ASCVD Postoperative diagnosis: * ASCVD * Procedure(s) performed: [facility] Coronary angio IABP insertion Access: right radial--> TR band, right FUND ACCOUNTANT--> IABP inserted A time-out was conducted prior [...] nitro. An IABP was placed in the physical laboratory assistant and she is being transferred to CV. [...] performed by Nimesh Alicia MD at [facility] ENDOSCOPY ??? RECTOCELE REPAIR 2014 Dr. Boo @ [facility] ??? SHOULDER SURGERY Left 06/05/2017 [...] issues/chronic pain. 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 Family- lives with Andrés and his mother. [...] of Danielle Mills. Signed: JUAN PABLO [place] [facility] Section of Cardiac Surgery Date: 02/07/2020 59 yo female who presents with stuttering AL, on plavix, anterior WMA. CAth shows a very tight proximal LAD stenosis, distal LCX disease, non-dominant RCA which is occluded. The distal LCX circulation is not a good target for bypass surgery. The RCA is not a target. The LAD is a good target. We could end up surgery with only a NAIR to the LAD. Right now on plavix, with an acute AL, on an IABP, with BMI 43 and [...] further details. Vik Justin MD 02/07/2020 Pager [phone] documented in this encounter Plan of Treatment Upcoming Encounters Date Type Department Care Team (Late st Contact Info) Description 07/20/2024 1:15 PM EDT Office Visit Neurosurgery at [address] [place] [address] Mary Hart MD [address] [place] [address] Irena Pierre PA [address] [place] [address] Scheduled Referrals Name Type Priority Associated Diagnoses [...] 02/07/20 3:21 PM EDT RAPID COVID-19 PCR ([facility]) [...] (ABNORMAL) POCT Glucose (02/09/2020 6:55 AM EDT) [facility] Glucose, POC 228(H) 65 - 199 mg/dL [facility] Comment: Supplemental ranges: <140 mg/dL before meals <180 mg/dL all other times of the day Blood specimen (specimen) 02/09/2020 6:55 AM EDT 02/09/2020 6:55 AM EDT Rell Gutierrez MD POINT OF CARE TEST O RDERABLES Performing Organization Address City/State/[facility] Co de Phone Number [facility] [place] [address] * Differential, Automated (02/09/2020 3:34 AM EDT) [facility] Neutrophil % 67.7 % [facility] Neutrophil Absolute 5.30 1.70 - 6.10 x10(3)/[facility] LABORATORY Lymph % 20.9 % [facility] Lymphocytes Abs 1.6 0.9 - 3.2 x10(3)/[facility] LABORATORY Monocyte % 9.2 % [facility] Monocyte Abs 0.7 0.3 - 0.9 x10(3)/[facility] LABORATORY Eos % 1.5 % [facility] Eosinophils Abs 0.1 0.0 - 0.4 x10(3)/[facility] LABORATORY Basophil % 0.4 % [facility] Baso Absolute 0.0 0.0 - 0.1 x10(3)/[facility] LABORATORY Immature Gran % 0.30 % [facility] Comment: Immature granulocytes(IG's)percentage and absolute count will include metamyelocytes, myelocytes, and promyelocytes. Blood smears from CBCs yielding IG's will be scanned manually for concordance. If this scan disagrees with the automated IG or if promyelocytes are noted, a manual differential will be performed. Immature Gran Absolute 0.02 0.00 - 0.04 x10(3)/[facility] LABORATORY Blood specimen (specimen) 02/09/2020 3:34 AM EDT 02/09/2020 3:42 AM EDT Narrative Resulting Agency Comment Spec In Lab Maria Bolaños MD HEMATOLOGY ORDERABLE S Performing Organization Address City/State/[facility] Co de Phone Number [facility] [place] [address] * (ABNORMAL) Hemogram (02/09/2020 3:34 AM EDT) White Blood Cell 7.8 4.0 - 9.5 x10(3)/[facility] Red Blood Cell 5.11 4.00 - 5.21 x10(6)/[facility] Hemoglobin 13.5 11.7 - 15.5 gm/dL [facility] Hematocrit 42.8 35.7 - 45.8 % [facility] Mean Cell Volume 83.8 82.6 - 94.4 fL [facility] Mean Cell Hemoglobin 26.4(L) 27.1 - 32.0 pg [facility] Mean Cell Hemoglobin Concentration 31.5(L) 31.7 - 35.0 gm/dL [facility] Platelet 168 145 - 357 x10(3)/[facility] RDW Standard Deviation 43.8 37.0 - 46.0 fL [facility] RDW coefficient of variation 14.3(H) 11.5 - 14.1 % [facility] Mean Platelet Volume 11.5 7.6 - 12.9 fL [facility] NRBC% auto 0.0 % [facility] NRBC Absolute 0.000 0.000 - 0.000 x10(3)/mc L [facility] Blood specimen (specimen) 02/09/2020 3:34 AM EDT 02/09/2020 3:42 AM EDT Narrative Resulting Agency Comment Spec In Lab Maria Bolaños MD HEMATOLOGY ORDERABLE S Performing Organization Address City/[facility]/ZIP Co de Phone Number [facility] [place] [address] * Phosphorus (02/09/2020 3:34 AM EDT) Phosphorus 2.8 2.5 - 4.5 mg/dL [facility] Blood specimen (specimen) 02/09/2020 3:34 AM EDT 02/09/2020 3:42 AM EDT Narrative Resulting Agency Comment Spec In Lab Rell Gutierrez MD CHEMISTRY ORDERABLES Performing Organization Address [facility]/ZIP Co de Phone Number [facility] [place] [address] * Magnesium (02/09/2020 3:34 AM EDT) Magnesium 0.93 0.69 - 1.07 mmol/L [facility] Blood specimen (specimen) 02/09/2020 3:34 AM EDT 02/09/2020 3:42 AM EDT Narrative Resulting Agency Comment Spec In Lab Rell Gutierrez MD CHEMISTRY ORDERABLES Performing Organization Address [facility]/ZIP Co de Phone Number [facility] [place] [address] * (ABNORMAL) Basic Metabolic Panel (non-fasting) (02/09/2020 3:34 AM EDT) Glucose 249(H) 65 - 199 mg/dL [facility] Comment:Diabetes: >=200 mg/d L plus symptoms Blood Urea Nitrogen 12 8 - 18 mg/dL [facility] Creatinine 0.78 0.70 - 1.20 mg/dL [facility] Sodium 138 135 - 145 mmol/L [facility] Potassium 3.8 3.5 - 5.0 mmol/L [facility] Comment: Please note: ??Patients with WBC >100,000 may have falsely elevated Potassium levels. ??For accurate Potassium quantification in these patients send serum separator tube (gold top) for subsequent determinations. ??Contact the Clinical Chemistry Laboratory if there are any questions. Chloride 100 98 - 107 mmol/L [facility] Carbon Dioxide 29 22 - 31 mmol/L [facility] Anion Gap 9 5 - 15 mmol/L [facility] Calcium 8.0(L) 8.5 - 10.5 mg/dL [facility] Est Glomerular Filtration Rate 84 >=60 mL/min/1. 73 m?? [facility] Comment: The eGFR was calculated using the CKD-EPI equation. As with all creatinine based estimates of kidney function, eGFR values calculated with the CKD-EPI equation are not accurate in patients with acute kidney failure, extremes of body mass or the acutely ill. [email or web address]/[email or web address] eGFR 97 >=60 mL/min/1. 73 m?? [facility] Comment: The eGFR was calculated using the CKD-EPI equation. As with all creatinine based estimates of kidney function, eGFR values calculated with the CKD-EPI equation are not accurate in patients with acute kidney failure, extremes of body mass or the acutely ill. [email or web address]/[email or web address] Blood specimen (specimen) 02/09/2020 3:34 AM EDT 02/09/2020 3:42 AM EDT Narrative Resulting Agency Comment Spec In Lab Rell Henkin MD CHEMISTRY ORDERABLES Performing Organization Address [facility]/ZIP Co de Phone Number [facility] [place] [address] * POCT Glucose (02/08/2020 8:56 PM EDT) Glucose, POC 145 65 - 199 mg/dL [facility] Comment: Supplemental ranges: <140 mg/dL before meals <180 mg/dL all other times of the day Blood specimen (specimen) 02/08/2020 8:56 PM EDT 02/08/2020 8:56 PM EDT Rell Gutierrez MD POINT OF CARE TEST O RDERABLES Performing Organization Address [facility] Co de Phone Number [facility] [place] [address] * POCT Glucose (02/08/2020 4:52 PM EDT) Glucose, POC 144 65 - 199 mg/dL [facility] Comment: Supplemental ranges: <140 mg/dL before meals <180 mg/dL all other times of the day Blood specimen (specimen) 02/08/2020 4:52 PM EDT 02/08/2020 4:52 PM EDT Rell Gutierrez MD POINT OF CARE TEST O RDERATRAY Performing Organization Address [facility] Co de Phone Number [facility] [place] [address] * (ABNORMAL) POCT Glucose (02/08/2020 12:35 PM EDT) Glucose, POC 235(H) 65 - 199 mg/dL [facility] Comment: Supplemental ranges: <140 mg/dL before meals <180 mg/dL all other times of the day Blood specimen (specimen) 02/08/2020 12:35 PM EDT 02/08/2020 12:35 PM EDT Rell Gutierrez MD POINT OF CARE TEST O RDERABLES Performing Organization Address [facility] Co de Phone Number [facility] [place] [address] * (ABNORMAL) POCT Glucose (02/08/2020 9:38 AM EDT) Glucose, POC 296(H) 65 - 199 mg/dL [facility] Comment: Supplemental ranges: <140 mg/dL before meals <180 mg/dL all other times of the day Blood specimen (specimen) 02/08/2020 9:38 AM EDT 02/08/2020 9:38 AM EDT Rell Gutierrez MD POINT OF CARE TEST O RDERABLES Performing Organization Address [facility] Co de Phone Number [facility] [place] [address] * (ABNORMAL) POCT Glucose (02/08/2020 7:35 AM EDT) Glucose, POC 241(H) 65 - 199 mg/dL [facility] Comment: Supplemental ranges: <140 mg/dL before meals <180 mg/dL all other times of the day Blood specimen (specimen) 02/08/2020 7:35 AM EDT 02/08/2020 7:35 AM EDT Rell Gutierrez MD POINT OF CARE TEST O RDERABLES Performing Organization Address [facility] Co de Phone Number [facility] [place] [address] * Differential, Automated (02/08/2020 4:01 AM EDT) Neutrophil % 68.7 % [facility] Neutrophil Absolute 5.45 1.70 - 6.10 x10(3)/[facility] LABORATORY Lymph % 21.1 % [facility] Lymphocytes Abs 1.7 0.9 - 3.2 x10(3)/[facility] LABORATORY Monocyte % 8.6 % [facility] Monocyte Abs 0.7 0.3 - 0.9 x10(3)/[facility] LABORATORY Eos % 0.8 % [facility] Eosinophils Abs 0.1 0.0 - 0.4 x10(3)/[facility] LABORATORY Basophil % 0.4 % [facility] Baso Absolute 0.0 0.0 - 0.1 x10(3)/[facility] LABORATORY Immature Gran % 0.40 % [facility] Comment: Immature granulocytes(IG's)percentage and absolute count will include metamyelocytes, myelocytes, and promyelocytes. Blood smears from CBCs yielding IG's will be scanned manually for concordance. If this scan disagrees with the automated IG or if promyelocytes are noted, a manual differential will be performed. Immature Gran Absolute 0.03 0.00 - 0.04 x10(3)/[facility] LABORATORY Blood specimen (specimen) 02/08/2020 4:01 AM EDT 02/08/2020 4:06 AM EDT Narrative Resulting Agency Comment Spec In Lab Kayleigh Crook MD HEMATOLOGY ORDERABLE S [facility] [place] [address] * (ABNORMAL) Hemogram (02/08/2020 4:01 AM EDT) White Blood Cell 7.9 4.0 - 9.5 x10(3)/mc L [facility] Red Blood Cell 5.11 4.00 - 5.21 x10(6)/mc L [facility] Hemoglobin 13.5 11.7 - 15.5 gm/dL [facility] Hematocrit 42.6 35.7 - 45.8 % [facility] Mean Cell Volume 83.4 82.6 - 94.4 fL [facility] Mean Cell Hemoglobin 26.4(L) 27.1 - 32.0 pg [facility] Mean Cell Hemoglobin Concentration 31.7 31.7 - 35.0 gm/dL [facility] Platelet 189 145 - 357 x10(3)/mc L [facility] RDW Standard Deviation 43.5 37.0 - 46.0 fL [facility] RDW coefficient of variation 14.3(H) 11.5 - 14.1 % [facility] Mean Platelet Volume 11.2 7.6 - 12.9 fL [facility] NRBC% auto 0.0 % [facility] NRBC Absolute 0.000 0.000 - 0.000 x10(3)/mc L [facility] Blood specimen (specimen) 02/08/2020 4:01 AM EDT 02/08/2020 4:06 AM EDT Narrative Resulting Agency Comment Spec In Lab Kayleigh Crook MD HEMATOLOGY ORDERABLE S [facility] [place] [address] * (ABNORMAL) Phosphorus (02/08/2020 4:01 AM EDT) Phosphorus 1.9(L) 2.5 - 4.5 mg/dL [facility] Blood specimen (specimen) 02/08/2020 4:01 AM EDT 02/08/2020 4:06 AM EDT Narrative Resulting Agency Comment Spec In Lab Rell Gutierrez MD CHEMISTRY ORDERABLES [facility] [place] [address] * Magnesium (02/08/2020 4:01 AM EDT) Magnesium 0.91 0.69 - 1.07 mmol/L [facility] Blood specimen (specimen) 02/08/2020 4:01 AM EDT 02/08/2020 4:06 AM EDT Narrative Resulting Agency Comment Spec In Lab Rell Gutierrez MD CHEMISTRY ORDERABLES [facility] [place] [address] * (ABNORMAL) Basic Metabolic Panel (non-fasting) (02/08/2020 4:01 AM EDT) Glucose 247(H) 65 - 199 mg/dL [facility] Comment:Diabetes: >=200 mg/d L plus symptoms Blood Urea Nitrogen 8 8 - 18 mg/dL [facility] Creatinine 0.66(L) 0.70 - 1.20 mg/dL [facility] Sodium 138 135 - 145 mmol/L [facility] Potassium 4.4 3.5 - 5.0 mmol/L [facility] Comment: Please note: ??Patients with WBC >100,000 may have falsely elevated Potassium levels. ??For accurate Potassium quantification in these patients send serum separator tube (gold top) for subsequent determinations. ??Contact the Clinical Chemistry Laboratory if there are any questions. Chloride 102 98 - 107 mmol/L [facility] Carbon Dioxide 27 22 - 31 mmol/L [facility] Anion Gap 9 5 - 15 mmol/L [facility] Calcium 7.9(L) 8.5 - 10.5 mg/dL [facility] Est Glomerular Filtration Rate 97 >=60 mL/min/1. 73 m?? [facility] Comment: The eGFR was calculated using the CKD-EPI equation. As with all creatinine based estimates of kidney function, eGFR values calculated with the CKD-EPI equation are not accurate in patients with acute kidney failure, extremes of body mass or the acutely ill. http://[employer] Elite/DHnkf eGFR 113 >=60 mL/min/1. 73 m?? [facility] Comment: The eGFR was calculated using the CKD-EPI equation. As with all creatinine based estimates of kidney function, eGFR values calculated with the CKD-EPI equation are not accurate in patients with acute kidney failure, extremes of body mass or the acutely ill. http://[employer]er [employer].com/DHMCnkf Blood specimen (specimen) 02/08/2020 4:01 AM EDT 02/08/2020 4:06 AM EDT Narrative Resulting Agency Comment Spec In Lab Rell Gutierrez MD CHEMISTRY ORDERABLES Performing Organization Address [facility]/ZIP Co de Phone Number [facility] [place] [address] * Potassium (02/07/2020 8:55 PM EDT) Potassium 3.7 3.5 - 5.0 mmol/L [facility] Comment: Please note: ??Patients with [...] Gutierrez MD CHEMISTRY ORDERABLES Performing Organization Address [facility] Co de Phone Number [facility] [place] [address] * POCT Glucose (02/07/2020 8:48 PM EDT) Glucose, POC 183 65 - 199 mg/dL [facility] Comment: Supplemental ranges: <140 mg/dL before meals <180 mg/dL all other times of the day Blood specimen (specimen) 02/07/2020 8:48 PM EDT 02/07/2020 8:48 PM EDT Rell Gutierrez MD POINT OF CARE TEST O RDERABLES Performing Organization Address [facility]/ZIP Co de Phone Number [facility] [place] [address] * Potassium (02/07/2020 5:10 PM EDT) Potassium 4.0 3.5 - 5.0 mmol/L [facility] Comment: Please note: ??Patients with [...] In Lab Rell Gutierrez MD CHEMISTRY ORDERABLES [facility] [place] [address] * (ABNORMAL) Troponin (02/07/2020 5:10 PM EDT) Troponin-T 0.27(H) 0.00 - 0.00 ng/mL [facility] Comment: The 99th percentile for Troponin T is less than 0.01 ng/mL, any detectable cTnT concentration using this assay should be considered elevated. According to the third universal definition of myocardial infarction the following criteria with a clinical presentation consistent with acute myocardial ischemia meets the diagnosis for a myocardial infarction (AL). Detection of a rise and/or fall of cTnT, with at least one value greater than the 99th percentile (> or = 0.01) and with at least one of the following ?? Symptoms of ischemia ?? New or presumed new significant MT-vgklrcy-B wave (ST-T) changes or new left bundle [...] additional sample may be indicated. Reference: Third [place] Definition of Myocardial Infarction. Journal of the [place] College of Cardiology 2012;60:1581-98 Blood specimen (specimen) 02/07/2020 5:10 PM EDT 02/07/2020 5:28 PM EDT Narrative Resulting Agency Comment Spec In Lab Vik Justin MD CHEMISTRY ORDER TOBI KERON [facility] [place] [address] * XR Chest One View (02/07/2020 5:07 [...] ? Electronically signed by: Trace Lopez MD, [facility] ([phone]), at 02/08/2020 3:54 AM Narrative 02/08/2020 3:54 [...] * POCT Glucose (02/07/2020 4:21 PM EDT) [facility] Glucose, POC 139 65 - 199 mg/dL [facility] Comment: Supplemental ranges: <140 mg/dL before meals <180 mg/dL all other times of the day Blood specimen (specimen) 02/07/2020 4:21 PM EDT 02/07/2020 4:21 PM EDT Rell Gutierrez MD POINT OF CARE TEST O RDERABLES Performing Organization Address City/State/[facility] Co de Phone Number [facility] [place] [address] * CARDIAC CATHETERIZATION (02/07/2020 3:21 PM EDT) Anatomical Region Laterality Modality Other Narrative 02/07/2020 4:29 PM EDT ?[facility] ? Cardiac Catheterization/Intervention Report ? Patient Name: Danielle Mills ? Procedure Date: 02/07/2020 ? A #: [id number] ? Primary Physician: Jose, Todd T ? Case #: [id number] ? File Name: [id number] ? Catheterization Order Number: [id number] ? [facility] ? Final Report [place], [place] ? Patient Name: ? Danielle Jarrett ? ID#: ?[id number] ? : ?1960 ? Procedure Date: ? February 07, 2020 ? Case #: ? [id number] ? Room: ? 6 ? Case Physician: [...] procedure was Urgent. The indication for ?the physical laboratory assistant visit is worsening angina. Chest pain symptom [...] dose administered prior to arrival in the physical laboratory assistant. ?Recommended anti-platelet/anti-thrombotic regimen: ?Start aspirin 81 mg daily now and continue for indefinitely. ?Start clopidogrel 75 mg daily now and continue for 12 months then stop. ?These recommendations are made at the time of the intervention. Patient ?and provider preferences or a changing clinical situation may require ?modification of this regimen. Consult [facility] Interventional Cardiology for ?questions. ?The 1 year [...] against any medical treatment. Consult ?http://tools.acc.org/DAPTriskapp/#!/content/calculator/ or [facility] ?Interventional Cardiology for questions. ? Conclusions: ?* [...] Nickries, M.D. ? Electronically Signed by: Todd Garcia, M.D. ? Report Finalized: 02/07/2020 ??16:24 ? Report Last Ammended: 03/23/2020 ??13:04 ? Procedure Note Todd Garcia MD - 03/23/2020 [facility] Cardiac Catheterization/Intervention Report Patient Name: Danielle Mills Procedure Date: 02/07/2020 A #: [id number] Primary Physician: Todd Garcia Case #: [id number] File Name: [id number] Catheterization Order Number: [id number] [facility] FinalReport [place], [place] Patient Name: Danielle Mills ID#:[id number] :1960 Procedure Date: February 07, 2020 Case [...] was designated as ASA Class III. The [facility] clinical frailty scale is5: Mildly Frail. Diagnostic Tests: Prior Coronary Angiography: LV ejection fraction within 6 months is 30%. Electrocardiography: EKG was assessed by ECG. EKG was Abnormal. EKG showed T-wave inversions and other abnormality. Medications Prior to Procedure: Aspirin, Beta Fernando and Statin. Indications for Diagnostic Cath: The priority of the diagnostic procedure was Urgent. The indicationfor the physical laboratory assistant visit is worsening angina. Chest pain symptomassessment [...] the lesion was dilated using a 3.00mm [id number] MM balloon with a maximum inflation pressure [...] dose administered prior to arrival in the physical laboratory assistant. Recommended anti-platelet/anti-thrombotic regimen: Start aspirin 81 mg daily now and continue for indefinitely. Start clopidogrel 75 mg daily now and continue for 12 months thenstop. These recommendations are made at the time of the intervention.Patient and provider preferences or a changing clinical situation mayrequire modification of this regimen. Consult [facility] Interventional Cardiologyfor questions. The 1 year bleeding [...] or against any medical treatment.Consult http://tools.acc.org/DAPTriskapp/#!/content/calculator/ or [facility] Interventional Cardiology for questions. Conclusions: * Obstructive [...] SARS-CoV-2 RNA (Rapid) Not Detected Not Detected [facility] Comment: This result should be [...] using the Simplexa COVID-19 Direct Assay by SMRxT as authorized by the FDA issued Emergency [...] Department of Pathology and Laboratory Medicine at [facility], certified under the Clinical Laboratory Improvement [...] Information for Healthcare Professionals (https://www.cdc.gov/coronavirus/2019-ncov/hcp/index.html). SARS-CoV-2 Source PUBLIC RELATIONS DIRECTOR Swab JAYME NORIEGA [facility] Nasopharyngeal swab (specimen) 02/07/2020 12:30 PM EDT 02/07/2020 12:59 PM EDT Comment:Symptoms->Surveillan ce Narrative Resulting Agency Comment Spec In Lab Vik Justin MD MICROBIOLOGY - GENERAL ORDERABLES [facility] [place] [address] * POCT Glucose (02/07/2020 10:58 AM EDT) Glucose, POC 115 65 - 199 mg/dL [facility] Comment: Supplemental ranges: <140 mg/dL before meals <180 mg/dL all other times of the day Blood specimen (specimen) 02/07/2020 10:58 AM EDT 02/07/2020 10:58 AM EDT Rell Gutierrez MD POINT OF CARE TEST O RDERABLES [facility] [place] [address] * Lavender Tube HOLD (02/07/2020 10:55 AM EDT) Lavender Hold Sample in lab. [facility] Blood specimen (specimen) Venous Draw / Unknown 02/07/2020 10:55 AM EDT 02/07/2020 11:16 AM EDT Kayleigh Crook MD HEMATOLOGY ORDERABLE S Performing Organization Address City/[facility]/ZIP Co de Phone Number [facility] [place] [address] * Phosphorus (02/07/2020 10:55 AM EDT) Phosphorus 3.0 2.5 - 4.5 mg/dL [facility] Blood specimen (specimen) 02/07/2020 10:55 AM EDT 02/07/2020 11:15 AM EDT Narrative Resulting Agency Comment Spec In Lab Rell Gutierrez MD CHEMISTRY ORDERABLES Performing Organization Address City/[facility]/ZIP Co de Phone Number [facility] [place] [address] * Magnesium (02/07/2020 10:55 AM EDT) Magnesium 1.00 0.69 - 1.07 mmol/L [facility] Blood specimen (specimen) 02/07/2020 10:55 AM EDT 02/07/2020 11:15 AM EDT Narrative Resulting Agency Comment Spec In Lab Rell Gutierrez MD CHEMISTRY ORDERABLES Performing Organization Address [facility] de Phone Number [facility] [place] [address] * Heparin (unfractionated) Level (02/07/2020 10:55 AM EDT) Pathologist [facility]F Heparin 0.44 IU/mL [facility] MD HEMATOLOGY ORDE RABLES Performing Organization Address [facility] Co de Phone Number [facility] [place] [address] * (ABNORMAL) Troponin (02/07/2020 10:55 AM EDT) [facility] Troponin-T 0.13(H) 0.00 - 0.00 ng/mL [facility] Comment: The 99th percentile for Troponin T is less than 0.01 ng/mL, any detectable cTnT concentration using this assay should be considered elevated. According to the third universal definition of myocardial infarction the following criteria with a clinical presentation consistent with acute myocardial ischemia meets the diagnosis for a myocardial infarction (AL). Detection of a rise and/or fall of cTnT, with at least one value greater than the 99th percentile (> or = 0.01) and with at least one of the following ?? Symptoms of ischemia ?? New or presumed new significant KH-pzvtdav-D wave (ST-T) changes or new left bundle [...] additional sample may be indicated. Reference: Third [place] Definition of Myocardial Infarction. Journal of the [place] College of Cardiology 2012;60:1581-98 Blood specimen (specimen) 02/07/2020 10:55 AM EDT 02/07/2020 11:15 AM EDT Narrative Resulting Agency Comment Spec In Lab Vik Justin MD CHEMISTRY ORDER TOBI [facility] [place] [address] * ECHO COMPLETE W CONTRAST (02/07/2020 10:46 AM EDT) EF 61 HEARTLAB SYSTEM Anatomical Region Laterality Modality Other 02/07/2020 Narrative 02/07/2020 1:49 PM EDT Procedure: ?Transthoracic Echocardiogram Patient: ?JARRETT Mcintosh ?(Age): 1960(59y) Med Rec#: ? [id number] ?Sex: ?F ? Site Loc: ? [facility] ?Ht / Wt: ??165(cm)/118(kg) Pt. Loc: ?[facility] ? BSA: ?2.21 Study Date: ?? 02/07/2020 ?Pt. Type: Inpatient Tape: ? Referring: Rell Gutierrez ??([id number]) Referring: LISY Reading: Ruslan Mcfarlane ([id number]) Community Development Officer: Laura Brown Diagnosis: *Non-ST elevation (NSTEMI) myocardial [...] Vmax ?0.61 ? m/sec ? MV deceleration [id number] ?msec ? MV A-wave Vmax ?0.77 ? [...] ? Mid-Inferior ?Normal ? Mid-Inferoseptal ?Hypokinetic ? Mather-Septal ? Hypokinetic ? Mather-Anterior ? Akinetic ? Mather-Lateral ?Akinetic ? Mather-Inferior ? Hypokinetic ? Mather-Tip ?Akinetic ? This report has been electronically signed by: Ruslan Mcfarlane MD ? 02/07/2020 13:49:14 Images reviewed and interpretation verified [facility] Cardiac Ultrasound Laboratory Procedure Note Ruslan Mcfarlane MD - 02/07/2020 Procedure: Transthoracic Echocardiogram Patient: JARRETT BUSTILLO(Age): 1960(59y) Med Rec#: [id number] Sex: F Site Loc: [facility] Ht / Wt: 165(cm)/118(kg) Pt. Loc: [facility] BSA: 2.21 Study Date: 02/07/2020 Pt. Type: Inpatient Tape: Referring: Rell Gutierrez ([id number]) Referring: LISY Reading: Ruslan Mcfarlane ([id number]) Community Development Officer: Laura Brown Diagnosis: *Non-ST elevation (NSTEMI) myocardial [...] MV E-wave Vmax 0.61 m/sec MV deceleration [id number] msec MV A-wave Vmax 0.77 m/sec MV [...] Normal Mid-Posterolateral Normal Mid-Inferior Normal Mid-Inferoseptal Hypokinetic Mather-Septal Hypokinetic Mather-Anterior Akinetic Mather-Lateral Akinetic Mather-Inferior Hypokinetic Mather-Tip Akinetic This report has been electronically signed by: Ruslan Mcfarlane MD 02/07/2020 13:49:14 Images reviewed and interpretation verified [facility]iac Ultrasound Laboratory Rell Gutierrez MD [...] below. Electronically signed by: Varghese Richmond MD, [facility]([phone]), at 02/07/2020 9:53 AM Vik Justin MD IMG DX ORDERABL ES * CARDIAC CATHETERIZATION (02/07/2020 9:00 AM EDT) Anatomical Region Laterality Modality Other Narrative 02/07/2020 9:04 AM EDT ?[facility] ? Cardiac Catheterization/Intervention Report ? Patient Name: Danielle Mills ? Procedure Date: 02/07/2020 ? A #: [id number] ? Primary Physician: Jose, Todd T ? Case #: [id number] ? File Name: [id number] ? Catheterization Order Number: [id number] ? [facility] ? Final Report [place], [place] ? Patient Name: ? Danilele Jarrett ? ID#: ?[id number] ? : ?1960 ? Procedure Date: ? February 07, 2020 ? Case #: ? [id number] ? Room: ? 2 ? Case Physician: [...] was designated as ASA Class IV. ?The [facility] clinical frailty scale is 5: [...] procedure was Urgent. The indication for ?the physical laboratory assistant visit is ACS less than or equal [...] 8Fr IABP was inserted via the right FUND ACCOUNTANT using ultrasound guidance. ?The IABP was advanced via the right FUND ACCOUNTANT into the distal aortic arch over ?a wire. ??After confirming position, the IABP was sutured in place and ?connected to the console. ??The counterpulsation was initiated and the ?patient was noted to become chest pain free. ?Successful inseriton of a 50cc IABP via an 8fr sheat in the right FUND ACCOUNTANT. ?The attending physician was present for the entire procedure. ?Dr. Todd Garcia M.D. was present during the moderate sedation ?intraservice time as documented by the sedation nurse. ??Case time = 00:34. ?Dr. Todd Garcia M.D. performed the coronary angiography, left heart ?catheterization and IABP insertion in physical laboratory assistant. ? Todd Garcia MDenysD. ? Electronically Signed by: Todd Garcia M.D. ? Report Finalized: 02/07/2020 ??08:57 ? Report Last Ammended: 03/23/2020 ??13:05 ? Procedure Note Tdod Garcia MD - 03/23/2020 [facility] Cardiac Catheterization/Intervention Report Patient Name: Danielle Mills Procedure Date: 02/07/2020 A #: [id number] Primary Physician: Todd Garcia Case #: [id number] File Name: [id number] Catheterization Order Number: [id number] [facility] FinalReport [place], [place] Patient Name: Danielle Mills ID#:[id number] :1960 Procedure Date: February 07, 2020 Case [...] patient was designated as ASAClass IV. The [facility] clinical frailty scale is 5: Mildly Frail. Diagnostic Tests: Prior Coronary Angiography: LV ejection fraction within 6 months is 30%. Electrocardiography: EKG was assessed by ECG. EKG was Abnormal. EKG showed T-wave inversions. Medications Prior to Procedure: Aspirin and Statin. Indications for Diagnostic Cath: The priority of the diagnostic procedure was Urgent. The indicationfor the physical laboratory assistant visit is ACS less than or equal [...] 8Fr IABP was inserted via the right FUND ACCOUNTANT using ultrasoundguidance. The IABP was advanced via the right FUND ACCOUNTANT into the distal aortic archover a wire. [...] angiography, leftheart catheterization and IABP insertion in physical laboratory assistant. Todd Garcia M.D. Electronically Signed by: Todd Garcia M.D. Report Finalized: 02/07/2020 08:57 Report Last Ammended: 03/23/2020 13:05 Todd Garcia MD CARDIAC CATH ORDERAB LES * POCT Glucose (02/07/2020 7:32 AM EDT) Glucose, POC 147 65 - 199 mg/dL [facility] Comment: Supplemental ranges: <140 mg/dL before meals <180 mg/dL all other times of the day Blood specimen (specimen) 02/07/2020 7:32 AM EDT 02/07/2020 7:32 AM EDT Rell Gutierrez MD POINT OF CARE TEST O RDERABLES Performing Organization Address City/State/[facility] Co de Phone Number [facility] [place] [address] * (ABNORMAL) Hemoglobin A1c (02/07/2020 7:29 AM EDT) Hemoglobin A1c 6.8(H) 4.3 - 5.6 % [facility] Comment: Reference Range: 4.3 - [...] Mellitus, Diabetes Care 2013; 36: Suppl. 1, S67-37 Estimated Average Glucose 147 mg/dL [facility] Comment: eAG equivalents for HbA1c [...] into estimated average glucose values. ??Diabetes Care 2008:31(8):8436-4431. Blood specimen (specimen) Venous Draw / Unknown 02/07/2020 7:29 AM EDT 02/07/2020 8:47 AM EDT Narrative Resulting Agency Comment Spec In Lab Keyon Foley MD CHEMISTRY ORDERABLES Performing Organization Address [facility] de Phone Number [facility] [place] [address] * Sedimentation rate (02/07/2020 7:29 AM EDT) [facility] Sedimentation Rate Automated 25 2 - 39 mm/hr [facility] Comment: Effective April 21, 2019 [...] MD HEMATOLOGY ORDERABLE S Performing Organization Address [facility] Co de Phone Number [facility] [place] [address] * (ABNORMAL) Hepatic Function Panel (02/07/2020 7:29 AM EDT) [facility] Protein, Total 6.0(L) 6.1 - 8.0 gm/dL [facility] Albumin 3.8 3.2 - 5.2 gm/dL [facility] Aspartate Aminotransferase 35(H) 0 - 30 unit/L [facility] Alanine Aminotransferase 36(H) 0 - 30 unit/L [facility] Alkaline Phosphatase 72 35 - 105 unit/L [facility] Bilirubin, Total 0.4 0.2 - 1.3 mg/dL [facility] Bilirubin, Direct 0.1 0.0 - 0.3 mg/dL [facility] Blood specimen (specimen) Venous Draw / Unknown 02/07/2020 7:29 AM EDT 02/07/2020 7:45 AM EDT Narrative Resulting Agency Comment Spec In Lab Rell Gutierrez MD CHEMISTRY ORDERABLES [facility] [place] [address] * Lipase (02/07/2020 7:29 AM EDT) [facility] Lipase 28 0 - 60 unit/L [facility] Blood specimen (specimen) Venous Draw / Unknown 02/07/2020 7:29 AM EDT 02/07/2020 7:45 AM EDT Narrative Resulting Agency Comment Spec In Lab Rell Gutierrez MD CHEMISTRY ORDERABLES [facility] [place] [address] * (ABNORMAL) CRP, acute inflammation (02/07/2020 7:29 AM EDT) [facility] C-Reactive Protein 18.2(H) <=4.9 mg/L [facility] Blood specimen (specimen) Venous Draw / Unknown 02/07/2020 7:29 AM EDT 02/07/2020 7:45 AM EDT Narrative Resulting Agency Comment Spec In Lab Rell Gutierrez MD [place] [address] * Differential, Automated (02/07/2020 7:29 AM EDT) Neutrophil % 64.8 % [facility] Neutrophil Absolute 5.08 1.70 - 6.10 x10(3)/[facility] Lymph % 27.1 % [facility] Lymphocytes Abs 2.1 0.9 - 3.2 x10(3)/[facility] LABOR[facility]ORY Monocyte % 6.8 % [facility] Monocyte Abs 0.5 0.3 - 0.9 x10(3)/[facility] LABOR[facility]ORY Eos % 0.5 % [facility] Eosinophils Abs 0.0 0.0 - 0.4 x10(3)/[facility] LAB[facility] Basophil % 0.5 % [facility] Baso Absolute 0.0 0.0 - 0.1 x10(3)/[facility] LAB[facility]ATORY Immature Gran % 0.30 % [facility] Comment: Immature granulocytes(IG's)percentage and absolute count will include metamyelocytes, myelocytes, and promyelocytes. Blood smears from CBCs yielding IG's will be scanned manually for concordance. If this scan disagrees with the automated IG or if promyelocytes are noted, a manual differential will be performed. Immature Gran Absolute 0.02 0.00 - 0.04 x10(3)/[facility] LAB[facility]ORY Blood specimen (specimen) 02/07/2020 7:29 AM EDT 02/07/2020 7:45 AM EDT Narrative Resulting Agency Comment Spec In Lab Vik Justin MD HEMATOLOGY ORDE MARIANNE [facility] [place] [address] * (ABNORMAL) Hemogram (02/07/2020 7:29 AM EDT) White Blood Cell 7.8 4.0 - 9.5 x10(3)/[facility] Red Blood Cell 5.33(H) 4.00 - 5.21 x10(6)/[facility] Hemoglobin 13.7 11.7 - 15.5 gm/dL [facility] Hematocrit 45.2 35.7 - 45.8 % [facility] Mean Cell Volume 84.8 82.6 - 94.4 fL [facility] Mean Cell Hemoglobin 25.7(L) 27.1 - 32.0 pg [facility] Mean Cell Hemoglobin Concentration 30.3(L) 31.7 - 35.0 gm/dL [facility] Platelet 173 145 - 357 x10(3)/[facility] RDW Standard Deviation 43.9 37.0 - 46.0 [facility] LABORATORY RDW coefficient of variation 14.2(H) 11.5 - 14.1 % [facility] Mean Platelet Volume 11.0 7.6 - 12.9 fL [facility] NRBC% auto 0.0 % [facility] NRBC Absolute 0.000 0.000 - 0.000 x10(3)/[facility] Blood specimen (specimen) 02/07/2020 7:29 AM EDT 02/07/2020 7:45 AM EDT Narrative Resulting Agency Comment Spec In Lab Vik Justin MD HEMATOLOGY EDEN LOPES [facility] [place] [address] * Prothrombin Time (02/07/2020 7:29 AM EDT) Prothrombin Time 11.8 9.4 - 12.5 sec [facility] International Normalization Ratio 1.0 [facility] Comment: An INR <2.0 indicates [...] MD HEMATOLOGY ORDE RABLES Performing Organization Address [facility]/ZIP Co de Phone Number [facility] [place] [address] * (ABNORMAL) pro-Brain Natriuretic Peptide (02/07/2020 7:29 AM EDT) NT-proBNP 893(H) <=125 pg/mL [facility] Blood specimen (specimen) 02/07/2020 7:29 AM EDT 02/07/2020 7:45 AM EDT Narrative Resulting Agency Comment Spec In Lab Vik Justin MD CHEMISTRY ORDER TOBI Performing Organization Address City/[facility]/ZIP Co de Phone Number [facility] [place] [address] * Lipid Panel (Reflex Direct LDL) (02/07/2020 7:29 AM EDT) Cholesterol, Total 186 mg/dL [facility] Comment: Lower Risk: <200 mg/dL Average Risk: 200-239 mg/dL Higher Risk: >vr=680 mg/dL Triglyceride 161 mg/dL [facility] Comment: Average Risk/Lower Risk: <150 mg/dL Borderline High Risk: 150-199 mg/dL High Risk: 200-499 mg/dL Very High Risk: >pu=245 mg/dL HDL Cholesterol 34 mg/dL [facility] Comment: Males: ?? Higher Risk: <40 mg/dL Females: ?? HIgher Risk: <50 mg/dL LDL Cholesterol 120 mg/dL [facility] Comment: Lowest Risk: <100 mg/dL Lower Risk: 100-129 mg/dL Borderline High Risk: 130-159 mg/dL High Risk: 160-189 mg/dL Very High Risk: >fh=048 mg/dL Cholesterol/HDL Ratio 5.5 ratio [facility] Lipid Interpretation See Note [facility] Comment: Lipid management should be guided by a patient? s ASCVD risk, goals and preferences. ACC/AHA Guidelines recommend high intensity statin if clinical ASCVD or LDL greater than or equal to 190 mg/dL. http://Shoulder Options.com/NJG-MHW-Lhtauktam Adults aged 40-75 with LDL 70-189 mg/dL should have their 10 year ASCVD risk estimated with the ACC/AHA ASCVD risk combine driver http://tools.acc.org/AYTWH-Rrkr-Cwgehxehp/ Statin should be discussed if risk greater [...] Lab Vik Justin MD CHEMISTRY ORDER TOBI [facility] [place] [address] * TSH (02/07/2020 7:29 AM EDT) Thyroid Stimulating Hormone 1.30 0.27 - 4.20 mcIU/mL [facility] Blood specimen (specimen) 02/07/2020 7:29 AM EDT 02/07/2020 7:45 AM EDT Narrative Resulting Agency Comment Spec In Lab Vik Justin MD CHEMISTRY ORDER TOBI [facility] [place] [address] * (ABNORMAL) Troponin (02/07/2020 7:29 AM EDT) Troponin-T 0.10(H) 0.00 - 0.00 ng/mL [facility] Comment: Called by: graciela, Read back by: koby yates (seamer elastic band), Date/Time:_02/07/20 08:14. The 99th percentile for Troponin T is less than 0.01 ng/mL, any detectable cTnT concentration using this assay should be considered elevated. According to the third universal definition of myocardial infarction the following criteria with a clinical presentation consistent with acute myocardial ischemia meets the diagnosis for a myocardial infarction (AL). Detection of a rise and/or fall of cTnT, with at least one value greater than the 99th percentile (> or = 0.01) and with at least one of the following ?? Symptoms of ischemia ?? New or presumed new significant LJ-xltgvrb-O wave (ST-T) changes or new left bundle [...] additional sample may be indicated. Reference: Third [place] Definition of Myocardial Infarction. Journal of the [place] College of Cardiology 2012;60:1581-98 Blood specimen (specimen) 02/07/2020 7:29 AM EDT 02/07/2020 7:45 AM EDT Narrative Resulting Agency Comment Spec In Lab Vik Justin MD CHEMISTRY ORDER TOBI Performing Organization Address City/[facility]/ZIP Co de Phone Number [facility] [place] [address] * (ABNORMAL) BMP w/fasting Glucose (02/07/2020 7:29 AM EDT) [facility] Signature Glucose Fasting 155(H) 65 - 99 mg/dL [facility] Comment: ?Fasting* Glucose Interpretive Criteria [...] of Diabetes Mellitus, Position Statement from the [place] Diabetes Association. ??Diabetes Care, Volume 33, Supplement 1, May 2009 Blood Urea Nitrogen 7(L) 8 - 18 mg/dL [facility] Creatinine 0.69(L) 0.70 - 1.20 mg/dL [facility] Sodium 139 135 - 145 mmol/L [facility] Potassium 4.1 3.5 - 5.0 mmol/L [facility] Comment: Please note: ??Patients with WBC >100,000 may have falsely elevated Potassium levels. ??For accurate Potassium quantification in these patients send serum separator tube (gold top) for subsequent determinations. ??Contact the Clinical Chemistry Laboratory if there are any questions. Chloride 105 98 - 107 mmol/L [facility] Carbon Dioxide 21(L) 22 - 31 mmol/L [facility] Anion Gap 13 5 - 15 mmol/L [facility] Calcium 8.1(L) 8.5 - 10.5 mg/dL [facility] Est Glomerular Filtration Rate 96 >=60 mL/min/1. 73 m?? [facility] Comment: The eGFR was calculated using the CKD-EPI equation. As with all creatinine based estimates of kidney function, eGFR values calculated with the CKD-EPI equation are not accurate in patients with acute kidney failure, extremes of body mass or the acutely ill. http://Data Elite/[facility] eGFR 111 >=60 mL/min/1. 73 m?? [facility] Comment: The eGFR was calculated using the CKD-EPI equation. As with all creatinine based estimates of kidney function, eGFR values calculated with the CKD-EPI equation are not accurate in patients with acute kidney failure, extremes of body mass or the acutely ill. http://Data Elite/[facility] Blood specimen (specimen) 02/07/2020 7:29 AM EDT 02/07/2020 7:45 AM EDT Narrative Resulting Agency Comment Spec In Lab Vik Justin MD CHEMISTRY ORDER TOBI Performing Organization Address City/[facility]/ZIP Co de Phone Number [facility] [place] [address] * EKG 12 Lead (02/07/2020 6:33 AM EDT) Ventricular rate 80 BPM MUSE SYSTEM Atrial Rate 80 BPM MUSE SYSTEM P-R Interval 150 ms MUSE SYSTEM QRS Duration 82 ms MUSE SYSTEM Q-T Interval 426 ms MUSE SYSTEM QTC Calculated (Bezet) 491 ms MUSE SYSTEM Calculated P [place] 54 degrees MUSE SYSTEM Calculated R [place] 6 degrees MUSE SYSTEM Calculated T [place] 103 degrees MUSE SYSTEM INTERPRETATION Normal sinus rhythm Anterior infarct , age undetermined Possible Left atrial enlargement T wave abnormality, consider lateral ischemia Abnormal ECG No previous ECGs available I personally reviewed the tracing and edited the fellows interpretation Confirmed by fellow Fabian Waters ([id number]) on 02/07/2020 2:39:52 PM Confirmed by MD [...] Maribel Babcock RN)1812 (Given - Provider: Maribel Babcock, SHAR)2355 (Given [...] Maribel Babcock RN)1405 (Given - Provider: Maribel Babcock, SHAR) sodium [...] Procedural area)1549 (MAR Unhold - Provider: Admin Adt)203 (Given - Provider: Lissa Sabillon RN) 0807 (Given - Provider: Maribel Babcock RN)2100 (Given - Provider: Gamaliel Shelton RN) 0820 (Given - Provider: Ann Shea V, RN) Continuous Medication Order 02/07/2020 02/08/2020 02/09/2020 nitroGLYcerin 50 mg in dextrose 5% 250 mL infusion (CANCELED) 0-200 mcg/min (0-60 mL/hr), Intravenous, CONTINUOUS, Starting on Fri02/07/20 at 1015, Until Fri02/08/20 at 0922, Titrate to keep chest pain < 2/10. Start at 25 mcg/min and adjust by 25 mcg/min every 5 minutes. Do not exceed 200 mcg/min., Routine 0900 (New Bag - Provider: Alyce Navarro, SHAR)1100 (Rate/Dose Verify - Provider: Alyce Navarro RN)1200 (Rate/Dose Verify - Provider: Alyce Navarro, SHAR)1401 (MAR Hold - Provider: Admin Adt - Reason: Transfer to a Procedural area)1549 (MAR Unhold - Provider: Admin Adt)1600 (Rate/Dose Verify - Provider: Alyce Navarro, SHAR)1800 (Stopped - Provider: Alyce Navarro, RN) PRN Medication Order 02/07/2020 02/08/2020 02/09/2020 [...] 1049 (Given - Provider: Alyce Navarro, SHAR)1401 ([facility] Hold - Provider: Admin Adt - Reason: Transfer to a Procedural area)1549 ([facility] Unhold - Provider: Admin Adt) 0109 (Given - Provider: Lissa Sabillon RN) clonazePAM (KlonoPIN) tablet 0.5 mg 0.5 mg, Oral, 2 TIMES DAILY PRN, Starting on Fri02/07/20 at 0921, Until Fri02/09/20 at 1430, Anxiety, DO NOT SPLIT, CRUSH OR OPEN, Routine 1401 ([facility] Hold - Provider: Admin Adt - Reason: Transfer to a Procedural area)1549 ([facility] Unhold - Provider: Admin Adt) cyclobenzaprine (Flexeril) tablet 10 mg 10 mg, Oral, 3 TIMES DAILY PRN, Starting on Fri02/07/20 at 0921, Until Fri02/09/20 at 1430, Muscle spasms, Routine 1401 ([facility] Hold - Provider: Admin Adt - Reason: Transfer to a Procedural area)1549 ([facility] Unhold - Provider: Admin Adt) dextrose [...] - Reason: Transfer to a Procedural area)0906 ([facility] Unhold - Provider: Admin Adt)1401 ([facility] Hold - Provider: Admin Adt - Reason: Transfer to a Procedural area)1549 ([facility] Unhold - Provider: Admin Adt) fentaNYL [...] (Intra-Procedure), Routine 08 (Given - Provider: Maxime Trujillo, SHAR)08 (Given - Provider: Maxime Trujillo, SHAR)08 (Given - Provider: Elsie Camacho RN) fentaNYL 50 mcg/mL multi-dose injection (CANCELED) ONCE PRN, Starting on Fri02/07/20 at 1411, Until Fri02/07/20 at 1527, Cath (Intra-Procedure), Routine 1411 (Given - Provider: Ekaterina Romo, RN)1453 (Given - Provider: Ekaterina Romo RN [...] duration of the active insulin., Routine 0755 ([facility] Hold - Provider: Admin Adt - Reason: Transfer to a Procedural area)0906 ([facility] Unhold - Provider: Admin Adt)1401 ([facility] Hold - Provider: Admin Adt - Reason: Transfer to a Procedural area)1549 ([facility] Unhold - Provider: Admin Adt) glucose [...] of tube = 37.5 grams., Routine 0755 ([facility] Hold - Provider: Admin Adt - Reason: Transfer to a Procedural area)0906 ([facility] Unhold - Provider: Admin Adt)1401 ([facility] Hold - Provider: Admin Adt - Reason: Transfer to a Procedural area)1549 ([facility] Unhold - Provider: Admin Adt) heparin [...] (Intra-Procedure), Routine 1529 (Given - Provider: Elsie Camacho, SHAR - Comment: 260 ml total) lidocaine (XYLOCAINE) [...] Routine documented in this encounter Care Teams Utilization Engineer Relationship Specialty Start Date End Date Francy Lowe APRN PCP - General Family Medicine 10/19/19 02/11/21 documented as of this encounter
--- OUTSIDE RECORDS SUMMARY | 2024-06-25 11:07 | XMS_ITS | Encounter Summary ---
[place] [address] Care Team Providers Care Driver/Refuse Collector Name Role Phone Francy Lowe APRN Primary Care Provider + Encounter Details Date Type Department Care Team (Late st Contact Info) Description 02/07/2020 [place] [phone] Maria Saenz MD Social History Tobacco Use [...] AM Referring provider: Dr. Richey Patient location: [place], [place] Past Medical History: HLD Diabetes on [...] EDT Office Visit Neurosurgery at [facility] [address] [place] [address] Mary Hart MD [address] [place] [address] Irena Pierre PA [address] [place] [address] documented as of this encounter Visit Diagnoses Not on filedocumented in this encounter Care Teams Driver/Refuse Collector Relationship Specialty Start Date End Date Francy Lowe APRN PCP - General Family Medicine 10/19/19 02/11/21 documented as of this encounter
--- OUTSIDE RECORDS SUMMARY | 2024-06-25 11:08 | XMS_ITS | Encounter Summary ---
[place] [address] Care Team Providers Care Cytology Laboratory Manager Name Role Phone Steven Jeffries MD Primary Care Provider Reason for Referral * Physical Therapy (Routine) - Closed Specialty Diagnoses / Procedures Referred By Contac t Referred To Contact Diagnoses Obstructive defecation Pelvic floor dysfunction Siria Lerner MD [address] [place] [address] Shell Ribeiro, PT [address] [place] [address] Referral ID Status Reason Start Date Expiration Date V isits Requested Visits Authorized [id number] Closed Evaluate and Treat 01/18/2019 07/17/2019 12 12 Reason for Visit * Reason Comments Establish Care * Consultation (Routine) - Closed Specialty Diagnoses / Procedures Referred By Contac t Referred To Contact Obstetrics and Gynecology Diagnoses Rectocele PoginyFrancy L, CONTRACT COORDINATOR [address] [place] [address] [facility] [employer] [address] [place] [phone] Referral ID Status Reason Start Date Expiration Date Visits Re quested Visits Authorized [id number] Closed 12/15/2018 12/15/2019 1 1 Encounter Details Date Type Department Care Team (Late st Contact Info) Description 01/18/2019 11:00 AM EDT Office Visit Obstetrics [place] [address] Siria Lerner MD [address] [place] [id number] Urinary urgency; Obstructive defecation; Pelvic floor dysfunction; [...] Female Pelvic Medicine and Reconstructive Surgery @ [facility] Patient Name: Danielle Mills Patient Primary [...] had a rectocele repair in 2014 at [facility] with Dr. Boo. She reports that [...] 2.49) performed by Nimesh Alicia MD at [facility] ENDOSCOPY ??? RECTOCELE REPAIR 2014 Dr. Boo @ [facility] ??? SHOULDER SURGERY Left 06/05/2017 L [...] oz) SpO2 98% BMI 46.13 kg/m?? The [employer] Bladder Scanner was used to obtain a [...] test (empty supine): negative External Genitalia: Vulva, Tye's and Bartholin glands normal, urethra without tenderness [...] 1:15 PM EDT Office Visit Neurosurgery at [facility] [address] [place] [address] Mary Hart MD [address] [facility] [address] Irena Pierre PA [address] [place] [address] Scheduled Referrals Name Type Priority Associated Diagnoses [...] * POCT urine dipstick (01/18/2019) POC Sp Nowata 1.005 1.002 - 1.030 POC pH, UA [...] female documented in this encounter Care Teams Cytology Laboratory Manager Relationship Specialty Start Date End Date Steven Jeffries MD [address] [place] [id number] PCP - General General Internal Medicine 11/18/1810/17 documented as of this encounter
--- OUTSIDE RECORDS SUMMARY | 2024-06-25 11:08 | XMS_ITS | Encounter Summary ---
Author Organization [facility]ly [facility] Address [facility] [place] [address] Care Team Providers Care Folded Towel Machine Operator Name Role Phone Steven Jeffries MD Primary Care Provider [phone] Encounter Details Date Type Department Care Team (Latest Contact Info) Description 11/19/2018 11:59 AM EDT - 11/19/2018 2:02 PM EDT Hospital Encounter [place] [address] Nimesh Alicia MD [facility] [place] [address] Discharge Disposition: Home Social History Tobacco Use [...] better as expected. Friday-Friday Same Day Endo [phone] 7a-8p Otherwise contact [phone] and ask to speak to the federal judicial law clerk division chair Follow-up care is a prasad part of [...] ??? Carpal tunnel syndrome G56.00 ??? Cystocele [id number] ??? Degeneration of intervertebral disc of lumbar [...] Alicia MD - 11/19/2018 1:32 PM EDT [facility] Operative Note Patient Name: Danielle Mills : [id number] MR#: [id number] Case Date: 11/19/2018 Surgeon: Surgeon(s) and Role: [...] Office Visit Neurosurgery at [facility] [address] [place] [address] Mary Hart MD [address] [place] [address] Irena Pierre PA [address] [facility] [place] [address] documented as of this encounter Procedures Procedure [...] PM EDT 11/19/2018 1:26 PM EDT Narrative [facility] - 11/19/2018 1:26 PM EDT Specimen requisition ordered. ??Separate Pathology report to follow Nimesh Alicia MD PATHOLOGY/CYTOLOGY O MARIANO Performing Organization Address [facility]/ZIP Co de Phone Number [facility] [place] [address] * Specimen to Pathology (11/19/2018 1:26 PM EDT) AP Specimen 11/19/2018 1:26 PM EDT 11/19/2018 1:26 PM EDT Narrative [facility] - 11/19/2018 1:26 PM EDT Specimen requisition ordered. ??Separate Pathology report to follow Nimesh Alicia MD PATHOLOGY/CYTOLOGY O RDADOLFO Performing Organization Address [facility]/ZIP Co de Phone Number [facility] [place] [address] * Specimen to Pathology (11/19/2018 1:26 PM EDT) AP Specimen 11/19/2018 1:26 PM EDT 11/19/2018 1:26 PM EDT Narrative [facility] - 11/19/2018 1:26 PM EDT Specimen requisition ordered. ??Separate Pathology report to follow Nimesh Alicia MD PATHOLOGY/CYTOLOGY O MARIANO Performing Organization Address [facility] [place] [place] [address] * Specimen to Pathology (11/19/2018 1:26 PM EDT) AP Specimen 11/19/2018 1:26 PM EDT 11/19/2018 1:26 PM EDT Narrative [facility] - 11/19/2018 1:26 PM EDT Specimen requisition ordered. ??Separate Pathology report to follow Nimesh Alicia MD PATHOLOGY/CYTOLOGY O SUSHILADOLFO Performing Organization Address [facility] [place] [address] * Surgical Pathology Report (11/19/2018 1:14 PM EDT) Final Diagnosis [id number] ? Location: 4T; EA07; A The signing [...] Merrill MD Verified: ??11/20/2018 ?Pathologist Performed at: ??-[facility] Dept. of Pathology, [place], [place] CLINICAL INFORMATION Specimen Submitted: A - [...] labeled D1. ??apb 11/20/2018 10:46 AM EDT [facility] GI Biopsy 11/19/2018 1:14 PM EDT 11/19/2018 1:14 PM EDT GI Biopsy 11/19/2018 1:14 PM EDT 11/19/2018 1:14 PM EDT GI Biopsy 11/19/2018 1:14 PM EDT 11/19/2018 1:14 PM EDT GI Biopsy 11/19/2018 1:14 PM EDT 11/19/2018 1:14 PM EDT Nimesh Alicia MD PATHOLOGY/CYTOLOGY O RDERABLES [facility] [place] [address] * UPPER GI ENDOSCOPY (11/19/2018 12:41 PM EDT) UPPER GI ENDOSCOPY [facility] Endoscopy ___ Procedure Date: 11/19/2018 12:41 PM ? Patient Name: Danielle Mills ? Date of : 1960 ? Age: 58 ? Order #: [id number] ? Instrument Name: [id number] GEORGINA ? ___ Procedure: ? Upper GI endoscopy [...] MD GENERAL SURGICAL ORD ERABLES [employer] * POCT Glucose (11/19/2018 12:17 PM EDT) Glucose, POC 90 65 - 199 mg/dL [facility] Comment: Supplemental ranges: <140 mg/dL before meals <180 mg/dL all other times of the day Blood specimen (specimen) 11/19/2018 12:17 PM EDT 11/19/2018 12:17 PM EDT Nimesh Alicia MD POINT OF CARE TEST O RDERABLES [facility] [place] [address] documented in this encounter Visit Diagnoses Not on filedocumented in this encounter Active and Recently Administered Medications Care Teams Folded Towel Machine Operator Relationship Specialty Start Date End Date Steven Jeffries MD [address] [place] [address] PCP - General General Internal Medicine 11/18/1810/17 documented as of this encounter
--- OUTSIDE RECORDS SUMMARY | 2024-06-25 11:08 | XMS_ITS | Encounter Summary ---
[place] [address] Care Team Providers Care Stitching Machine Operator Name Role Phone Radha Fry MD Primary Care Provider [phone] Encounter Details Date Type Department Care Team (Latest Contact Info) Description 03/19/2018 2:00 PM EST Ancillary Procedure XRay at [address] [address] Elvin Whiting MD [address] [place] [address] [place] [address] Primary osteoarthritis of left knee Social History [...] at [facility] [address] [place] [phone] Mary Hart MD [address] [address] Irena Pierre PA [address] [facility] [place] [address] documented as of this encounter Procedures Procedure [...] leg documented in this encounter Care Teams Stitching Machine Operator Relationship Specialty Start Date End Date Radha Fry MD PCP - General 07/22/11 11/17/18 documented as of this encounter
--- OUTSIDE RECORDS SUMMARY | 2024-06-25 11:08 | XMS_ITS | Encounter Summary ---
Author Organization [facility] [place] [address] Care Team Providers Care Graduate Teaching Associate Name Role Phone Radha Fry MD Primary Care Provider [phone] Encounter Details Date Type Department Care Team (Late st Contact Info) Description 08/11/2014 8:10 AM EDT Office Visit [address] [address] Elvin Whiting MD [address] [facility] [place] [address] Social History Tobacco Use Types Packs/Day Years [...] 1:15 PM EDT Office Visit Neurosurgery at [facility] [address] [place] [phone] Mary Hart MD [address] [place] [address] Irena Pierre PA [address] [address] documented as of this encounter Visit Diagnoses Not on filedocumented in this encounter Care Teams Graduate Teaching Associate Relationship Specialty Start Date End Date Radha Fry MD PCP - General 07/22/11 11/17/18 documented as of this encounter
--- OUTSIDE RECORDS SUMMARY | 2024-06-25 11:08 | XMS_ITS | Encounter Summary ---
Author Organization [facility] Address [facility] [place] [address] Care Team Providers Care Weed Sprayer Name Role Phone Francy Lowe APRN Primary Care Provider + Reason for Visit * Consultation (Routine) - Specialty Diagnoses / Procedures Referred By Jasson mendoza Referred To Contact Endocrinology Diagnoses Autoimmune thyroiditis Francy Lowe APRN [address] [place] [address] [facility] Endocrinology [address] [place] [address] Referral ID Status Reason Start Date Expiration Date V isits Requested Visits Authorized [id number] Consult, Test & Treat [facility] PCP Updated and/or Approved 10/19/2019 10/18/2020 1 1 Encounter Details Date Type Department Care Team (Latest Contact Info) Description 10/21/2019 10:30 AM EDT TH Visit (TeleHealth) [place] [address] aMrta Cabral MD [facility] [place] [address] Delano's thyroiditis Social History Tobacco [...] thyroid size and to r/o nodule at [facility] as scheduled tomorrow. 4. RTC: As needed [...] ??? Carpal tunnel syndrome G56.00 ??? Cystocele [id number] ??? Depression, anxiety, insomnia, PTSD F32.9 ??? [...] file Gets together: Not on file Attends restorationism service: Not on file Active member of [...] voice or stridor. Deferred. Thyroid US at [facility] Radiology - pending for the report tomorrow [...] thyroid size and to r/o nodule at [facility] as scheduled tomorrow. 4. RTC: As needed [...] the ultrasound results and already told my traveling secretary to schedule 6 month follow-up so I can ultrasound by myself and show you at next clinic visit directly. Ok to call my traveling secretary at [phone] next week if you have not heard [...] thyroid function? My chiropractor is also a insurance plan specialist. I figured I???d run it by [...] Neurosurgery at [facility] [address] [place] [address] Mary Hart MD [address] [place] [address] Irena Pierre PA [address] [facility] [place] [address] documented as of this encounter Visit Diagnoses Diagnosis Delano's thyroiditis Chronic lymphocytic thyroiditis documented in this encounter Care Teams Weed Sprayer Relationship Specialty Start Date End Date Francy Lowe APRN PCP - General Family Medicine 10/19/19 02/11/21 documented as of this encounter
--- OUTSIDE RECORDS SUMMARY | 2024-06-25 11:08 | XMS_ITS | Encounter Summary ---
Author Organization [facility] [place] [address] Care Team Providers Care Button Grader Name Role Phone Francy Lowe APRN Primary Care Provider + Encounter Details Date Type Department Care Team (Late st Contact Info) Description 12/06/2019 11:00 AM EDT Office [place] [address] Marta Cabral MD [facility] [place] [address] Delano's thyroiditis; Vitamin D deficiency; Controlled type [...] difficulty swallowing. Thyroid US at [facility] on 10/22/19 showed a Rt [...] the ultrasound results and already told my fertilizer mixer to schedule 6 month follow-up so I can ultrasound by myself and show you at next clinic visit directly. Ok to call my fertilizer mixer at [phone] next week if you have not heard [...] function? My chiropractor is also a nutrition club ambassador. I figured I???d run it by her [...] ??? Carpal tunnel syndrome G56.00 ??? Cystocele [id number] ??? Depression, anxiety, insomnia, PTSD F32.9 ??? [...] file Gets together: Not on file Attends baptism service: Not on file Active member of [...] muscle weakness. Thyroid US at [facility] Radiology (10/22/19) before taking thyroid [...] suspicious. Comparison: 10/22/19 US from outside at [facility]. Procedure: Real-time ultrasonography limited to the thyroid gland and lateral neck area with and without color doppler were obtained using a [employer] Flex Focus 400 US machine and an [...] year at our office by the same wire coiler machine operator. 4. RTC: 3 mo to [...] PM EDT Office Visit Neurosurgery at [address] [place] [address] Mary Hart MD [address] [place] [address] Irena Pierre PA [address] [place] [address] Scheduled Orders Name Type Priority Associated Diagnoses [...] Free T4 0.80(L) 0.93 - 1.70 ng/dL [facility] Blood specimen (specimen) 12/06/2019 12:06 PM EDT 12/06/2019 12:23 PM EDT Narrative Resulting Agency Comment Spec In Lab Marta Cabral MD CHEMISTRY ORDERAB LES Performing Organization Address City/[facility]/ZIP Co de Phone Number [facility] [place] [address] * TSH (12/06/2019 12:06 PM EDT) Thyroid Stimulating Hormone 1.75 0.27 - 4.20 mcIU/mL [facility] Blood specimen (specimen) 12/06/2019 12:06 PM EDT 12/06/2019 12:23 PM EDT Narrative Resulting Agency Comment Spec In Lab Marta Cabral MD CHEMISTRY ORDERAB LES [facility] [place] [address] * Vitamin B12 (12/06/2019 12:06 PM EDT) Vitamin B12 617 232 - 1,245 pg/mL [facility] Blood specimen (specimen) 12/06/2019 12:06 PM EDT 12/06/2019 12:23 PM EDT Narrative Resulting Agency Comment Spec In Lab Marta Cabral MD CHEMISTRY ORDERAB LES Performing Organization Address City/[facility] Co de Phone Number [facility] [place] [address] * Vitamin D, 25-Hydroxy (12/06/2019 12:06 PM EDT) Vitamin D Total 25 OH 29 21 - 100 ng/mL [facility] Comment: Please note, effective September 15, 2019, additional result field for Vitamin D Interpretation, and updated flagging notification. Vit D Interp Insufficient [facility] Blood specimen (specimen) 12/06/2019 12:06 PM EDT 12/06/2019 12:23 PM EDT Narrative Resulting Agency Comment Spec In Lab Marta Cabral MD CHEMISTRY ORDERAB LES Performing Organization Address City/[facility]/ZIP Co de Phone Number [facility] [place] [address] documented in this encounter Visit Diagnoses Diagnosis [...] uncontrolled documented in this encounter Care Teams Button Grader Relationship Specialty Start Date End Date Francy Lowe APRN PCP - General Family Medicine 10/19/19 02/11/21 documented as of this encounter
--- OUTSIDE RECORDS SUMMARY | 2024-06-25 11:08 | XMS_ITS | Encounter Summary ---
[place] [address] Care Team Providers Care Burn Nurse Name Role Phone Gonzalez Sloan MD Primary Care Provider [phone] Encounter Details Date Type Department Care Team (Late st Contact Info) Description 12/14/2010 Abstract [facility] [address] [place] [address] Chrissy Mendoza, RN Social History Tobacco Use [...] Office Visit Neurosurgery at [facility] [address] [place] [address] Mary Hart MD [address] [facility] [place] [address] Irena Pierre PA [address] [facility] [place] [address] documented as of this encounter Visit Diagnoses Not on filedocumented in this encounter Care Teams Burn Nurse Relationship Specialty Start Date End Date Gonzalez Sloan MD [place] [address] [address] [place] [address] PCP - General 04/03/10 04/14/11 documented as of this encounter
--- OUTSIDE RECORDS SUMMARY | 2024-06-25 11:08 | XMS_ITS | Encounter Summary ---
Author Organization [facility] [address] Care Team Providers Care Press Operator Heavy Duty Name Role Phone Gonzalez Sloan MD Primary Care Provider Encounter Details Date Type Department Care Team (Late st Contact Info) Description 07/17/2010 8:45 AM EST Office Visit Obstetrics [place] [address] Bill Banks MD [facility] [address] OBSTETRICS [place] [address] Discharge Disposition: Home Social History Tobacco Use [...] [facility] [address] [place] [phone] Mary Hart MD [address] [place] [address] Irena Pierre PA [address] [facility] [place] [address] documented as of this encounter Visit Diagnoses Not on filedocumented in this encounter Care Teams Press Operator Heavy Duty Relationship Specialty Start Date End Date Gonzalez Sloan MD [place] [address] [address] [place] [address] PCP - General 04/03/10 04/14/11 documented as of this encounter
--- OUTSIDE RECORDS SUMMARY | 2024-06-25 11:08 | XMS_ITS | Encounter Summary ---
Author Organization [facility] [place] [address] Care Team Providers Care Stack Supervisor Name Role Phone Radha Fry MD Primary Care Provider [phone] Encounter Details Date Type Department Care Team (Late st Contact Info) Description 08/07/2012 10:40 AM EDT Office Visit [address] [address] Elvin Whiting MD [address] [facility] [place] [address] Social History Tobacco Use Types Packs/Day Years [...] 1:15 PM EDT Office Visit Neurosurgery at [facility] [address] [phone] Mary Hart MD [address] [place] [address] Irena Pierre PA [address] [facility] [place] [address] documented as of this encounter Visit Diagnoses Not on filedocumented in this encounter Care Teams Stack Supervisor Relationship Specialty Start Date End Date Radha Fry MD PCP - General 07/22/11 11/17/18 documented as of this encounter
--- OUTSIDE RECORDS SUMMARY | 2024-06-25 11:08 | XMS_ITS | Encounter Summary ---
Author Organization [facility] [place] [address] Care Team Providers Care Manager Stars Name Role Phone Radha Fry MD Primary Care Provider [phone] Encounter Details Date Type Department Care Team (Late st Contact Info) Description 11/28/2014 11:10 AM EDT Office Visit Orthopaedics at [address] [address] Elvin Whiting MD [address] [place] [address] [place] [address] Social History Tobacco Use Types Packs/Day Years [...] Neurosurgery at [facility] [address] [place] [phone] Mary Hart MD [address] [address] Irena Pierre PA [address] [place] [address] documented as of this encounter Visit Diagnoses Not on filedocumented in this encounter Care Teams Manager Stars Relationship Specialty Start Date End Date Radha Fry MD PCP - General 07/22/11 11/17/18 documented as of this encounter
--- OUTSIDE RECORDS SUMMARY | 2024-06-25 11:08 | XMS_ITS | Encounter Summary ---
Author Organization [facility] [place] [address] Care Team Providers Care Frame Stylist Name Role Phone Radha Fry MD Primary Care Provider [phone] Encounter Details Date Type Department Care Team (Late st Contact Info) Description 04/13/2013 8:00 AM EST Office Visit [facility] [address] [place] [address] Elvin Whiting MD [address] [facility] [place] [address] Social History Tobacco Use Types Packs/Day Years [...] at [facility] [address] [place] [address] Mary Hart MD [address] [place] [address] Irena Pierre PA [address] [facility] [place] [address] documented as of this encounter Visit Diagnoses Not on filedocumented in this encounter Care Teams Frame Stylist Relationship Specialty Start Date End Date Radha Fry MD PCP - General 07/22/11 11/17/18 documented as of this encounter
--- OUTSIDE RECORDS SUMMARY | 2024-06-25 11:08 | XMS_ITS | Encounter Summary ---
Author Organization [facility] [place] [address] Care Team Providers Care Reliability Engineer Name Role Phone Radha Fry MD Primary Care Provider [phone] Encounter Details Date Type Department Care Team (Late st Contact Info) Description 01/19/2013 3:10 PM EDT Office Visit [address] [address] Elvin Whiting MD [address] [place] [address] [place] [address] Social History Tobacco Use Types Packs/Day Years [...] 1:15 PM EDT Office Visit Neurosurgery at [facility] [address] [address] Mary Hart MD [address] [place] [address] Irena Pierre PA [address] [facility] [place] [address] documented as of this encounter Visit Diagnoses Not on filedocumented in this encounter Care Teams Reliability Engineer Relationship Specialty Start Date End Date Radha Fry MD PCP - General 07/22/11 11/17/18 documented as of this encounter
--- OUTSIDE RECORDS SUMMARY | 2024-06-25 11:08 | XMS_ITS | Encounter Summary ---
[place] [address] Care Team Providers Care Business Law Professor Name Role Phone Steven Jeffries MD Primary Care Provider Encounter Details Date Type Department Care Team (Late st Contact Info) Description 08/13/2019 Telephone [place] [address] Lisa Reza Social History Tobacco Use Types [...] Visit Neurosurgery at [facility] 10 [facility] [place] [address] Mray Hart MD [address] [place] [address] Irena Pierre PA [address] [place] [address] documented as of this encounter Visit Diagnoses Not on filedocumented in this encounter Care Teams Business Law Professor Relationship Specialty Start Date End Date Steven Jeffries MD [address] [place] [address] PCP - General General Internal Medicine 11/18/1810/17 documented as of this encounter
--- OUTSIDE RECORDS SUMMARY | 2024-06-25 11:08 | XMS_ITS | Encounter Summary ---
Author Organization [facility] [place] [address] Care Team Providers Care Lehr Stripper Name Role Phone Radha Fry MD Primary Care Provider [phone] Encounter Details Date Type Department Care Team (Late st Contact Info) Description 12/06/2014 1:50 PM EDT Office Visit Orthopaedics at [address] [address] Elvin Whiting MD [address] [place] [address] [place] [address] Social History Tobacco Use Types Packs/Day Years [...] PM EDT Office Visit Neurosurgery at [facility] [address] [place] [address] Mary Hart MD [address] [place] [address] Irena Pierre PA [address] [place] [address] documented as of this encounter Visit Diagnoses Not on filedocumented in this encounter Care Teams Lehr Stripper Relationship Specialty Start Date End Date Radha Fry MD PCP - General 07/22/11 11/17/18 documented as of this encounter
--- OUTSIDE RECORDS SUMMARY | 2024-06-25 11:08 | XMS_ITS | Encounter Summary ---
Author Organization [facility] Address [facility] [place] [address] Care Team Providers Care Ingot Buggy Operator Name Role Phone Steven Jeffries MD Primary Care Provider Encounter Details Date Type Department Care Team (Late st Contact Info) Description 11/19/2018 1:00 PM EDT - 11/19/2018 1:30 PM EDT Surgery [place] [address] Nimesh Alicia MD [facility] [place] [address] EGD WITH BIOPSY (WRVU 2.39) Social History [...] better as expected. Friday-Friday Same Day Endo [phone] Otherwise contact [phone] and ask to speak to the massage coordinator contract consultant Follow-up care is a prasad part of [...] ??? Carpal tunnel syndrome G56.00 ??? Cystocele [id number] ??? Degeneration of intervertebral disc of lumbar [...] Alicia MD - 11/19/2018 1:32 PM EDT [facility] Operative Note Patient Name: Danielle Mills : [id number] MR#: [id number] Case Date: 11/19/2018 Surgeon: Surgeon(s) and Role: [...] Neurosurgery at [facility] 10 [place] [address] Mary Hart MD [address] [place] [address] Irena Pierre PA [address] [place] [address] documented as of this encounter Procedures Procedure [...] PM EDT 11/19/2018 1:26 PM EDT Narrative [facility] - 11/19/2018 1:26 PM EDT Specimen requisition ordered. ??Separate Pathology report to follow Nimesh Alicia MD PATHOLOGY/CYTOLOGY O MARIANO Performing Organization Address [facility]/ZIP Co de Phone Number [facility] [place] [address] * Specimen to Pathology (11/19/2018 1:26 PM EDT) AP Specimen 11/19/2018 1:26 PM EDT 11/19/2018 1:26 PM EDT Narrative [facility] - 11/19/2018 1:26 PM EDT Specimen requisition ordered. ??Separate Pathology report to follow Nimesh Alicia MD PATHOLOGY/CYTOLOGY O RDADOLFO Performing Organization Address [facility]/State/[place] [address] * Specimen to Pathology (11/19/2018 1:26 PM EDT) AP Specimen 11/19/2018 1:26 PM EDT 11/19/2018 1:26 PM EDT Narrative [facility] - 11/19/2018 1:26 PM EDT Specimen requisition ordered. ??Separate Pathology report to follow Nimesh Alicia MD PATHOLOGY/CYTOLOGY O MARIANO Performing Organization Address [facility] de Phone Number [facility] [place] [address] * Specimen to Pathology (11/19/2018 1:26 PM EDT) AP Specimen 11/19/2018 1:26 PM EDT 11/19/2018 1:26 PM EDT Narrative [facility] - 11/19/2018 1:26 PM EDT Specimen requisition ordered. ??Separate Pathology report to follow Nimesh Alicia MD PATHOLOGY/CYTOLOGY O NILSONTRAY Performing Organization Address [facility] de Phone Number [facility] [place] [address] * Surgical Pathology Report (11/19/2018 1:14 PM EDT) Final Diagnosis [id number] ? Location: 4T; EA07; A The signing [...] Merrill MD Verified: ??11/20/2018 ?Pathologist Performed at: ??-[facility] Dept. of Pathology, [place], [place] CLINICAL INFORMATION Specimen Submitted: A - [...] labeled D1. ??apb 11/20/2018 10:46 AM EDT [facility] GI Biopsy 11/19/2018 1:14 PM EDT 11/19/2018 1:14 PM EDT GI Biopsy 11/19/2018 1:14 PM EDT 11/19/2018 1:14 PM EDT GI Biopsy 11/19/2018 1:14 PM EDT 11/19/2018 1:14 PM EDT GI Biopsy 11/19/2018 1:14 PM EDT 11/19/2018 1:14 PM EDT Nimesh Alicia MD PATHOLOGY/CYTOLOGY O RDERABLES [facility] [place] [address] * UPPER GI ENDOSCOPY (11/19/2018 12:41 PM EDT) UPPER GI ENDOSCOPY [facility] ___ Procedure Date: 11/19/2018 12:41 PM ? Patient Name: Danielle Mills ? Date of : 1960 ? Age: 58 ? Order #: [id number] ? Instrument Name: [id number] LOANER ? ___ Procedure: ? Upper GI [...] Glucose, POC 90 65 - 199 mg/dL [facility] Comment: Supplemental ranges: <140 mg/dL before meals <180 mg/dL all other times of the day Blood specimen (specimen) 11/19/2018 12:17 PM EDT 11/19/2018 12:17 PM EDT Nimesh Alicia MD POINT OF CARE TEST O RDERABLES [facility] [place] [address] documented in this encounter Visit Diagnoses Not on filedocumented in this encounter Active and Recently Administered Medications Care Teams Ingot Buggy Operator Relationship Specialty Start Date End Date Steven Jeffries MD [address] [place] [address] PCP - General General Internal Medicine 11/18/1810/17 documented as of this encounter
--- OUTSIDE RECORDS SUMMARY | 2024-06-25 11:08 | XMS_ITS | Encounter Summary ---
Author Organization [facility] [place] [address] Care Team Providers Care Dry End Operator Name Role Phone Radha Fry MD Primary Care Provider [phone] Encounter Details Date Type Department Care Team (Late st Contact Info) Description 08/23/2014 8:40 AM EDT Office Visit [address] [address] Elvin Whiting MD [address] [facility] [place] [address] Social History Tobacco Use Types Packs/Day Years [...] Neurosurgery at [facility] [address] [place] [phone] Mary Hart MD [address] [place] [address] Irena Pierre PA [address] [facility] [place] [address] documented as of this encounter Visit Diagnoses Not on filedocumented in this encounter Care Teams Dry End Operator Relationship Specialty Start Date End Date Radha Fry MD PCP - General 07/22/11 11/17/18 documented as of this encounter
--- OUTSIDE RECORDS SUMMARY | 2024-06-25 11:08 | XMS_ITS | Encounter Summary ---
Author Organization [facility] [place] [address] Care Team Providers Care Reagent Tender Name Role Phone Radha Fry MD Primary Care Provider [phone] Reason for Visit * Reason Comments Left Knee Pain * High Dollar Medication (Urgent) - Closed Specialty Diagnoses / Procedures Referred By Jasson mendoza Referred To Contact Orthopaedics Diagnoses left knee osteoarthrtitis Procedures TC SYNVISC/SYNVISC-ONE, 1MG, INTRA-ARTICULAR INJECTION Left knee Synvsic [facility] [address] [place] [phone] Referral ID Status Reason Start Date Expiration Date V isits Requested Visits Authorized [id number] Closed Evaluate and Treat 03/19/2018 03/19/2019 1 1 Encounter Details Date Type Department Care Team ([facility] Contact Info) Description 03/26/2018 1:30 PM EST Office Visit Orthopaedics at [address] [address] Elvin Whiting MD [address] [place] [address] [place] [address] Primary osteoarthritis of left knee; Left knee pain, unspecified chronicity Social History Tobacco Use Types Packs/Day Years Used Date Smoking Tobacco: Every Day Cigarettes Smokeless Tobacco: Never Sex and Gender Information Value Date Recorded Sex Assigned at Not on file Gender Identity Female 02/07/2020 7:29 AM EDT Sexual Orientation Not on file documented as of this encounter Patient Instructions * Patient Instructions* RomeoPinky E - 03/26/2018 1:30 PM EST FOLLOW UP [...] 1:15 PM EDT Office Visit Neurosurgery at [facility] 10 [place] [address] Mary Hart MD [address] [place] [address] Irena Pierre PA [address] [facility] [place] [address] documented as of this encounter Visit Diagnoses [...] mg documented in this encounter Care Teams Reagent Tender Relationship Specialty Start Date End Date Radha Fry MD PCP - General 07/22/11 11/17/18 documented as of this encounter
--- OUTSIDE RECORDS SUMMARY | 2024-06-25 11:08 | XMS_ITS | Encounter Summary ---
[place] [address] Care Team Providers Care Photo Lab Manager Name Role Phone Steven Jeffries MD Primary Care Provider [phone] Encounter Details Date Type Department Care Team (Late st Contact Info) Description 08/13/2019 Telephone [place] [phone] Lisa Reza Social History Tobacco Use Types [...] at [facility] 10 [facility] [place] [address] Mary [place] [address] Irena Pierre [place] [address] documented as of this encounter Visit Diagnoses Not on filedocumented in this encounter Care Teams Photo Lab Manager Relationship Specialty Start Date End Date Steven Jeffries MD [address] [place] [address] PCP - General General Internal Medicine 11/18/1810/17 documented as of this encounter
--- OUTSIDE RECORDS SUMMARY | 2024-06-25 11:08 | XMS_ITS | Encounter Summary ---
Author Organization [facility] [place] [address] Care Team Providers Care Mixologist Name Role Phone Gonzalez Sloan MD Primary Care Provider [phone] Encounter Details Date Type Department Care Team (Late st Contact Info) Description 08/24/2010 Orders Only Obstetrics [place] [address] Bill Banks MD [facility] DR OBSTETRICS [place] [address] Social History Tobacco Use Types Packs/Day Years [...] Visit Neurosurgery at [facility] [address] [place] [address] Mary Hart MD [address] [place] [address] Irena Pierre PA [address] [place] [address] documented as of this encounter Visit Diagnoses Not on filedocumented in this encounter Care Teams Mixologist Relationship Specialty Start Date End Date Gonzalez Sloan MD [address] [address] PCP - General 04/03/10 04/14/11 documented as of this encounter
--- OUTSIDE RECORDS SUMMARY | 2024-06-25 11:08 | XMS_ITS | Encounter Summary ---
[place] [address] Care Team Providers Care Compatibility Test Engineer Name Role Phone Radha Fry MD Primary Care Provider [phone] Reason for Visit * Reason Comments Left Knee Pain Left knee pain Encounter Details Date Type Department Care Team ([facility] st Contact Info) Description 03/19/2018 1:40 PM EST Office Visit Orthopaedics at [address] [address] Sofie Sutton MD [address] [place] [address] [place] [address] Primary osteoarthritis of left knee Social History [...] ??? Carpal tunnel syndrome G56.00 ??? Cystocele [id number] ??? Degeneration of intervertebral disc of lumbar [...] Good pulses IMAGING: X-Rays taken [facility] at [facility] were reviewed with the patient and shows: [...] EDT Office Visit Neurosurgery at [facility] 10 [place] [address] Mary Hart MD 10 [facility] [place] [address] Irena Pierre PA 10 [facility] [place] [address] documented as of this encounter Visit Diagnoses Diagnosis Primary osteoarthritis of left knee Primary localized osteoarthrosis, lower leg documented in this encounter Care Teams Compatibility Test Engineer Relationship Specialty Start Date End Date Radha Fry MD PCP - General 07/22/11 11/17/18 documented as of this encounter
--- OUTSIDE RECORDS SUMMARY | 2024-06-25 11:08 | XMS_ITS | Encounter Summary ---
Author Organization [facility] [place] [address] Care Team Providers Care Superintendent Meters Name Role Phone Steven Jeffries MD Primary Care Provider [phone] Encounter Details Date Type Department Care Team (Late st Contact Info) Description 02/18/2019 Telephone [place] [address] Nimesh Alicia MD [facility] [place] [address] Social History Tobacco Use Types Packs/Day Years [...] Visit Neurosurgery at [facility] 10 [place] [address] Mary Hart MD 10 [place] [address] Irena Pierre PA [address] [place] [address] documented as of this encounter Visit Diagnoses Not on filedocumented in this encounter Care Teams Superintendent Meters Relationship Specialty Start Date End Date Steven Jeffries MD [address] [address] PCP - General General Internal Medicine 11/18/1810/17 documented as of this encounter
--- OUTSIDE RECORDS SUMMARY | 2024-06-25 11:08 | XMS_ITS | Encounter Summary ---
Author Organization [facility] [place] [address] Care Team Providers Care Inspector Canvas Products Name Role Phone Radha Fry MD Primary Care Provider [phone] Encounter Details Date Type Department Care Team (Late st Contact Info) Description 02/09/2013 7:00 AM EDT Office Visit [address] [address] Elvin Whiting MD 253 [facility] [place] [address] Social History Tobacco Use Types Packs/Day Years [...] 1:15 PM EDT Office Visit Neurosurgery at [facility] [address] [place] [address] Mary Hart MD [address] [place] [address] Irena Pierre PA [address] [facility] [place] [address] documented as of this encounter Visit Diagnoses Not on filedocumented in this encounter Care Teams Inspector Canvas Products Relationship Specialty Start Date End Date Radha Fry MD PCP - General 07/22/11 11/17/18 documented as of this encounter
--- OUTSIDE RECORDS SUMMARY | 2024-06-25 11:08 | XMS_ITS | Encounter Summary ---
Author Organization [facility] [place] [address] Care Team Providers Care Hotel Breakfast Attendant Name Role Phone Radha Fry MD Primary Care Provider [phone] Encounter Details Date Type Department Care Team (Late st Contact Info) Description 10/31/2011 11:00 AM EDT Office Visit [facility] 253 [place] [address] Elvin Whiting MD 253 [facility] [place] [address] Social History Tobacco Use Types Packs/Day Years [...] 1:15 PM EDT Office Visit Neurosurgery at [facility] [address] [place] [address] Mary Hart MD [address] [place] [address] Irena Pierre PA [address] [facility] [place] [address] documented as of this encounter Visit Diagnoses Not on filedocumented in this encounter Care Teams Hotel Breakfast Attendant Relationship Specialty Start Date End Date Radha Fry MD PCP - General 07/22/11 11/17/18 documented as of this encounter
--- OUTSIDE RECORDS SUMMARY | 2024-06-25 11:08 | XMS_ITS | Encounter Summary ---
Author Organization [facility] [place] [address] Care Team Providers Care Structural Steel Worker Name Role Phone Radha Fry MD Primary Care Provider [phone] Encounter Details Date Type Department Care Team (Late st Contact Info) Description 04/06/2013 9:25 AM EST Office Visit MR at [address] [phone] Social History Tobacco Use Types Packs/Day Years [...] EDT Office Visit Neurosurgery at [facility] [address] [place] [address] Mary Hart MD [address] [place] [address] Irena Pierre PA [address] [address] documented as of this encounter Procedures Procedure [...] filedocumented in this encounter Care Teams Structural Steel Worker Relationship Specialty Start Date End Date Radha Fry MD PCP - General 07/22/11 11/17/18 documented as of this encounter
--- OUTSIDE RECORDS SUMMARY | 2024-06-25 11:08 | XMS_ITS | Encounter Summary ---
Author Organization [facility] [place] [address] Care Team Providers Care Archival Records Clerk Name Role Phone Radha Fry MD Primary Care Provider [phone] Encounter Details Date Type Department Care Team (Late Contact Info) Description 04/14/2015 [facility] Information Services [address] [place] [address] Provider, His Deven MD None Social History [...] 1:15 PM EDT Office Visit Neurosurgery at [facility] [place] [address] Mary Hart MD [address] [place] [address] Irena Pierre [place] [address] documented as of this encounter Visit Diagnoses Not on filedocumented in this encounter Care Teams Archival Records Clerk Relationship Specialty Start Date End Date Radha Fry MD PCP - General 07/22/11 11/17/18 documented as of this encounter
--- OUTSIDE RECORDS SUMMARY | 2024-06-25 11:08 | XMS_ITS | Encounter Summary ---
Author Organization [facility] Address [place] [address] Care Team Providers Care Real Estate Portfolio Manager Name Role Phone Steven Jeffries MD Primary Care Provider Encounter Details Date Type Department Care Team (Late st Contact Info) Description 11/19/2018 12:57 PM EDT Anesthesia [place] [address] Lorenzo Cotto MD [facility] [place] [address] Kayli Ferrera CRNA Anesthesia Record Procedure Summary [...] 1257; metacarpal vein (top of hand), left; usmz-qco-tnsfuh catheter system; 20 gauge; distraction; 11/19/18; 1353 [...] Procedure Summary Date: 11/19/18 Room / Location: [facility] ENDO 6 / [facility] ENDOSCOPY Anesthesia Start: 1257 Anesthesia Stop: 1326 Procedure: EGD WITH BIOPSY (WRVU 2.49) (N/A ) Diagnosis: (hx of Johnson's) Surgeon: Nimesh Alicia MD Responsible Provider: Lorenzo Cotto MD Anesthesia Type: MAC ASA Status: 2 All Anesthesia Providers: Anesthesiologist: Lorenzo Cotto MD CLERK CARRIER: Michelle Freeman CRNA Student Nurse Preschool Paraprofessional: Ryan Paredes Vitals Value Taken Time BP 132/109 11/19/2018 1:50 PM Temp Pulse Resp 18 11/19/2018 1:50 PM SpO2 100 % 11/19/2018 1:52 PM Pain Level 0 11/19/2018 1:50 PM Vitals shown include unvalidated device data. Patient Location: PACU/[facility] Level of Consciousness: Awake and Alert Pain [...] risks discussed with patient. Plan discussed with CLERK CARRIER. PAT Clinic Note documented in this encounter Plan of Treatment Upcoming Encounters Date Type Department Care Team (Late st Contact Info) Description 07/20/2024 1:15 PM EDT Office Visit Neurosurgery at [facility] [place] [address] Mary Hart MD [address] [address] Irena Pierre PA [address] [place] [address] documented as of this encounter Visit Diagnoses [...] /hr documented in this encounter Care Teams Real Estate Portfolio Manager Relationship Specialty Start Date End Date Steven Jeffries MD [address] [place] [address] PCP - General General Internal Medicine 11/18/1810/17 documented as of this encounter
--- OUTSIDE RECORDS SUMMARY | 2024-06-25 11:08 | XMS_ITS | Encounter Summary ---
Author Organization [facility] [place] [address] Care Team Providers Care Receiving Associate Name Role Phone Radha Fry MD Primary Care Provider [phone] Encounter Details Date Type Department Care Team (Late st Contact Info) Description 03/18/2018 Orders Only Orthopaedics at [address] [address] Elvin Whiting MD [address] [facility] [place] [address] Primary osteoarthritis of left knee Social History [...] EDT Office Visit Neurosurgery at [facility] [address] [place] [address] Mary Hart MD [address] [place] [address] Irena Pierre PA [address] [place] [address] documented as of this encounter Results * [...] leg documented in this encounter Care Teams Receiving Associate Relationship Specialty Start Date End Date Radha Fry MD PCP - General 07/22/11 11/17/18 documented as of this encounter
--- OUTSIDE RECORDS SUMMARY | 2024-06-25 11:08 | XMS_ITS | Encounter Summary ---
[place] [address] Care Team Providers Care Svp Marketing Name Role Phone Steven Jeffries MD Primary Care Provider [phone] Reason for Referral * Physical Therapy (Routine) - Closed Specialty Diagnoses / Procedures Referred By Contac t Referred To Contact Physical Therapy / [facility] Diagnoses Chronic bilateral low back pain with right-sided sciatica Tony Rivera [place]N [facility] [place] [address] [facility] [place] [address] Referral ID Status Reason Start Date Expiration Date V isits Requested Visits Authorized [id number] Closed Evaluate and Treat 10/12/2019 10/11/2020 12 12 Reason for Visit * Reason Comments Back Pain * Consultation (Routine) - Closed Specialty Diagnoses / Procedures Referred By Contac t Referred To Contact [facility] Diagnoses Other intervertebral disc degeneration, lumbar region Spine- lumbar disc degeneration/ low back pain/ MRI(12/23/17) @ [facility] Francy Lowe APRN [address] [place] [address] [facility] [place] [address] Referral ID Status Reason Start Date Expiration Date V isits Requested Visits Authorized [id number] Closed Consult, Test & Treat Connection Center PCP Updated and/or Approved 09/15/2019 09/14/2020 1 1 Encounter Details Date Type Department Care Team (Late st Contact Info) Description 10/12/2019 9:00 AM EDT Office Visit [place] [address] Tony Rivera APRN Chronic bilateral low back [...] day, denies alcohol use, lives in [facility] with her and [id number] and is on disability. Past med history [...] options including spine specially physical therapy and Ialso briefly described the [facility] functional gnosticism program to the patient. After discussed the [...] 1:15 PM EDT Office Visit Neurosurgery at [facility] 10 [place] [address] Mary Hart MD 10 [facility] [place] [address] Irena Pierre PA 10 [facility] [place] [address] Scheduled Referrals Name Type Priority Associated Diagnoses Orde r Schedule Referral to Physical Therapy Outpatient Referral Routine Chronic bilateral low back pain with right-sided sciatica Ordered: 10/12/2019 documented as of this encounter Visit Diagnoses Diagnosis Chronic bilateral low back pain with right-sided sciatica documented in this encounter Care Teams Svp Marketing Relationship Specialty Start Date End Date Steven Jeffries MD [address] [place] [address] PCP - General General Internal Medicine 11/18/1810/17 documented as of this encounter
--- OUTSIDE RECORDS SUMMARY | 2024-06-25 11:08 | XMS_ITS | Encounter Summary ---
[place] [address] Care Team Providers Care Clock Mechanic Name Role Phone Francy Lowe APRN Primary Care Provider + Encounter Details Date Type Department Care Team (Late st Contact Info) Description 12/08/2019 [place] [address] Reid Mondragon RN Social History Tobacco Use [...] Relayed Dr Cabral's info to pt via Composeright message and Kimber Rivera via TC. Pending [...] glimepiride. This was largely outlined in the Composeright message sent to the patient today at [...] Office Visit Neurosurgery at [facility] [address] [place] [address] Mary Hart MD 10 [place] [address] Irena Pierre PA [address] [place] [address] documented as of this encounter Visit Diagnoses Not on filedocumented in this encounter Care Teams Clock Mechanic Relationship Specialty Start Date End Date Francy Lowe APRN PCP - General Family Medicine 10/19/19 02/11/21 documented as of this encounter
--- OUTSIDE RECORDS SUMMARY | 2024-06-25 11:08 | XMS_ITS | Encounter Summary ---
Author Organization [facility] [place] [address] Care Team Providers Care Machine Technician Name Role Phone Radha Fry MD Primary Care Provider [phone] Encounter Details Date Type Department Care Team (Late st Contact Info) Description 12/23/2017 Ancillary Procedure Radiology Library at [facility] [place] [address] Tony Rivera, DIESEL TECHNOLOGY INSTRUCTOR Social History Tobacco Use Types Packs/Day Years [...] 1:15 PM EDT Office Visit Neurosurgery at k 10 [place] [address] Mary Hart MD [address] [facility] [place] [address] Irena Pierre PA [address] [place] [address] documented as of this encounter Procedures Procedure Name Priority Date/Time Associated Diagnosis Comments FILM LIBRARY STORAGE ONLY MR SPINE Routine 12/23/2017 12:00 AM EDT documented in this encounter Results * Film Library- Storage Only MR Spine (12/23/2017 12:00 AM EDT) Narrative [facility] - 10/08/2019 11:08 AM EDT This exam is auto-finalizing. It's purpose is for storage only. Tony Rivera APRN IMG FILM LIBRARY ORDERABLES Performing Organization Address City/State/[facility] Co de Phone Number [place], [place] documented in this encounter Visit Diagnoses Not on filedocumented in this encounter Care Teams Machine Technician Relationship Specialty Start Date End Date Radha Fry MD PCP - General 07/22/11 11/17/18 documented as of this encounter
--- OUTSIDE RECORDS SUMMARY | 2024-06-25 11:08 | XMS_ITS | Encounter Summary ---
Author Organization [facility] [place] [address] Care Team Providers Care Brake Lining Finisher Asbestos Name Role Phone Radha Fry MD Primary Care Provider [phone] Reason for Visit * Reason Comments Right Knee Pain s/p R TKA September 2009 b y srd Encounter Details Date Type Department Care Team (Late st Contact Info) Description 09/15/2015 3:20 PM EDT Office Visit Orthopaedics at [address] [address] Elvin Whiting MD [address] [place] [address] [place] [address] Primary osteoarthritis of right knee (Primary Dx) [...] is going to be moving up to [place]. Wanted to check in to see me [...] and should require her to have an [id number] followup with me for consideration of x-rays [...] PM EDT Office Visit Neurosurgery at 10 [place] [address] Mary Hart [place] [address] Irena Pierre PA [address] [place] [address] documented as of this encounter Results * [...] leg documented in this encounter Care Teams Brake Lining Finisher Asbestos Relationship Specialty Start Date End Date Radha Fry MD PCP - General 07/22/11 11/17/18 documented as of this encounter
--- OUTSIDE RECORDS SUMMARY | 2024-06-25 11:08 | XMS_ITS | Encounter Summary ---
Author Organization [facility] [place] [address] Care Team Providers Care Line Rider Name Role Phone Radha Fry MD Primary Care Provider [phone] Encounter Details Date Type Department Care Team (Late st Contact Info) Description 12/10/2011 8:45 AM EDT Office Visit [facility] [address] [place] [address] Fitz Post PA 253 [facility] ORTHOPAEDIC [place] [address] Social History Tobacco Use Types Packs/Day Years [...] Neurosurgery at [facility] [address] [place] [address] Mary Hart MD [address] [address] Irena Pierre PA 10 [facility] [place] [address] documented as of this encounter Visit Diagnoses Not on filedocumented in this encounter Care Teams Line Rider Relationship Specialty Start Date End Date Radha Fry MD PCP - General 07/22/11 11/17/18 documented as of this encounter
--- OUTSIDE RECORDS SUMMARY | 2024-06-25 11:08 | XMS_ITS | Encounter Summary ---
Author Organization [facility] [place] [address] Care Team Providers Care Production Operations Inspector Name Role Phone Steven Jeffries MD Primary Care Provider [phone] Encounter Details Date Type Department Care Team (Late st Contact Info) Description 08/23/2019 8:00 AM EDT TH Visit (TeleHealth) [place] [address] Nimesh Alicia MD [facility] [place] [address] Throat burning Social History Tobacco Use Types [...] Alicia MD - 08/23/2019 8:00 AM EDT [facility] Section of Gastroenterology and Hepatology Outpatient Consultation [facility] Gastroenterology Telephone Note Primary care provider: [...] 2.49) performed by Nimesh Alicia MD at [facility] ENDOSCOPY ??? RECTOCELE REPAIR 2014 Dr. Boo @ [facility] ??? 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 Patient verbally consents to this telephone visit and understands that this visit may be billed, similar to a clinic office visit. I provided care to the patient today via telephone call, 15 minutes telephone visit was spent in discussion with patient on above. Nimesh Alicia MD CC Steven Jeffries MD [address] [place] [phone] No referring provider defined for this encounter. Gastroenterology Section [facility] documented in this encounter Plan of Treatment Upcoming Encounters Date Type Department Care Team (Late st Contact Info) Description 07/20/2024 1:15 PM EDT Office Visit Neurosurgery at [facility] 10 [place] [address] Mary Hart MD 10 [facility] [place] [address] Irena Pierre PA 10 [facility] [place] [address] documented as of this encounter Visit Diagnoses Diagnosis Throat burning Throat pain documented in this encounter Care Teams Production Operations Inspector Relationship Specialty Start Date End Date Steven Jeffries MD [address] [place] [address] PCP - General General Internal Medicine 11/18/1810/17 documented as of this encounter
--- OUTSIDE RECORDS SUMMARY | 2024-06-25 11:08 | XMS_ITS | Encounter Summary ---
Author Organization [place] [address] Care Team Providers Care Lint Cleaner Name Role Phone Radha Fry MD Primary Care Provider Encounter Details Date Type Department Care Team (Late st Contact Info) Description 08/11/2012 10:50 AM EDT Office Visit [address] [address] Elvin Whiting MD 253 [facility] [place] [address] Social History Tobacco Use Types Packs/Day Years [...] 1:15 PM EDT Office Visit Neurosurgery at [facility] [address] [place] [address] Mary Hart MD [address] [place] [address] Irena Pierre PA [address] [facility] [place] [address] documented as of this encounter Visit Diagnoses Not on filedocumented in this encounter Care Teams Lint Cleaner Relationship Specialty Start Date End Date Radha Fry MD PCP - General 07/22/11 11/17/18 documented as of this encounter
--- OUTSIDE RECORDS SUMMARY | 2024-06-25 11:08 | XMS_ITS | Encounter Summary ---
[place] [address] Care Team Providers Care Ironworker Wire Fence Erector Name Role Phone Radha Fry MD Primary Care Provider [phone] Reason for Visit * Reason Onset Date Comments Medication Refill 05/23/2015 Encounter Details Date Type Department Care Team ([facility] st Contact Info) Description 05/23/2015 Telephone Orthopaedics at [address] [address] Elvin Whiting MD [address] [place] [address] [place] [address] Medication Refill Social History Tobacco Use Types [...] Amoxicillin for her dental procedure called into [place] Please call her at [phone] when done. documented in this encounter Plan of Treatment Upcoming Encounters Date Type Department Care Team (Late st Contact Info) Description 07/20/2024 1:15 PM EDT Office Visit Neurosurgery at [facility] 10 [place] [address] Mary Hart MD 10 [facility] [place] [address] Irena Pierre PA 10 [facility] [place] [address] documented as of this encounter Visit Diagnoses Diagnosis History of total knee arthroplasty, right documented in this encounter Care Teams Ironworker Wire Fence Erector Relationship Specialty Start Date End Date Radha Fry MD PCP - General 07/22/11 11/17/18 documented as of this encounter
[2024-06-25 20:12] LABS: FREE T4 0.93 ng/dL (0.76-1.46); Magnesium 1.9 mg/dL (1.8-2.4); TSH 1.36 uIU/mL (0.36-3.74)
[2024-06-26 23:36] LABS: T3, Total 156 ng/dL (97-169)
== END 2024-06-25 11:00 | disposition home or self-care (01) ==
LOC: NCHCN 10:59
PROVIDERS: PCP Internal Medicine; Visit Provider Physician Assistant
DX: E83.42 Hypomagnesemia (principal); E06.3 Autoimmune thyroiditis
CPT/HCPCS: 83735; 84439; 84443; 84480

== ENCOUNTER 2024-08-06 15:12 | Outpatient (REF) | payer MEDICARE, SELFPAY ==
[2024-08-06 18:40] LABS: Abs Immature Grans 0.01 10^3/uL (0.0-0.06); Absolute Basophil Count 0.08 10^3/uL (0.0-0.2); Absolute Eosinophil Count 0.05 10^3/uL (0.0-0.7); Absolute Lymphocyte Count 2.45 10^3/uL (1.2-3.4); Absolute Monocyte Count 0.46 10^3/uL (0.1-0.8); Basophils % 1.3 %; Eosinophils % 0.8 %; HCT 48.1 % (36.0-46.0); HGB 15.7 g/dL (11.2-15.7); Immature Grans % 0.2 %; Lymphocytes % 41.2 %; MCH 27.1 pg (27.0-33.0); MCHC 32.6 % (32.0-36.0); MCV 83 fL (80-95); MPV 10.4 fL (8.0-11.0); Monocytes % 7.7 %; Neutrophils % 48.8 %; Platelet Count 233 10^3/uL (130-400); RDW 12.6 % (11.7-14.6); WBC 5.95 10^3/uL (4.4-10.8)
[2024-08-06 18:52] LABS: ALT 19 U/L (14-59); AST 17 U/L (15-37); Albumin 3.5 g/dL (3.4-5.0); Alkaline Phosphatase 65 U/L (46-116); Anion Gap 6.8 mmol/L (3-11); BUN 16 mg/dL (7-18); Bilirubin, Total 0.4 mg/dL (0.2-1.0); CO2 29.2 mmol/L (21.0-32.0); CREATININE 0.8 mg/dL (0.55-1.02); Calcium 9.5 mg/dL (8.5-10.1); Chloride 104 mmol/L (98-107); Estimated GFR 82.74 (mL/min/1.73m2); Glucose 124 mg/dL (74-106); Potassium 4.3 mmol/L (3.5-5.1); Sodium 140 mmol/L (136-145); Total Protein 6.6 g/dL (6.4-8.2)
== END 2024-08-06 15:13 | disposition home or self-care (01) ==
LOC: NCHCN 15:12
PROVIDERS: PCP Internal Medicine; Visit Provider Physician Assistant
DX: Z01.818 Encounter for other preprocedural examination (principal)
CPT/HCPCS: 80053; 85025

== ENCOUNTER 2024-10-06 15:15 | Outpatient (REF) | payer MEDICARE, SELFPAY ==
[2024-10-06 21:47] LABS: COMMENT (LAB VIEW ONLY) 87.98 mg/dL; Microalb ug/mg Crea 6.6 ug/mg Cr
== END 2024-10-06 15:16 | disposition home or self-care (01) ==
LOC: NCHCN 15:15
PROVIDERS: PCP Internal Medicine; Visit Provider Physician Assistant
DX: E11.43 Type 2 diabetes mellitus with diabetic autonomic (poly)neuropathy (principal)
CPT/HCPCS: 82043; 82570

== ENCOUNTER 2025-01-13 18:30 | Outpatient (REF) | payer MEDICARE, SELFPAY ==
[2025-01-18 12:16] LABS: 2-OH-Ethyl-Flurazepam Negative ng/mL (Cutoff: 10); 7-NH-Clonazepam 222 ng/mL (Cutoff: 10); 7-NH-Flunitrazepam Negative ng/mL (Cutoff: 10); Alpha OH-Alprazolam Negative ng/mL (Cutoff: 10); Alpha-OH Midazolam Negative ng/mL (Cutoff: 10); Benzodiazepines Interpretation Positive.; Prazepam Negative ng/mL (Cutoff: 10); Zolpidem Carboxylic acid Negative ng/mL (Cutoff: 10)
== END 2025-01-13 18:31 | disposition home or self-care (01) ==
LOC: NCHCN 18:30
PROVIDERS: PCP Internal Medicine; Visit Provider Physician Assistant
DX: F41.9 Anxiety disorder, unspecified (principal)
CPT/HCPCS: 80346

== ENCOUNTER 2025-03-30 14:55 | Outpatient (REF) | payer MEDICARE, SELFPAY ==
[2025-03-30 20:13] LABS: HCT 47.8 % (36.0-46.0); HGB 15.3 g/dL (11.2-15.7); MCH 26.5 pg (27.0-33.0); MCHC 32.0 % (32.0-36.0); MCV 83 fL (80-95); MPV 10.0 fL (8.0-11.0); Platelet Count 231 10^3/uL (130-400); RBC 5.78 10^6/uL (3.93-5.22); RDW 12.9 % (11.7-14.6); RDW-SD 38.9 fL; WBC 5.30 10^3/uL (4.4-10.8)
[2025-03-30 20:39] LABS: TSH 1.16 uIU/mL (0.55-4.78)
[2025-03-30 20:43] LABS: ALT 12 U/L (10-49); AST 19 U/L (<34); Albumin 4.1 g/dL (3.4-5.0); Alkaline Phosphatase 72 U/L (46-116); Anion Gap 5.4 mmol/L (3-11); BUN 7 mg/dL (9-23); Bilirubin, Total 0.40 mg/dL (0.2-1.2); CO2 31.6 mmol/L (20.0-31.0); Calcium 8.9 mg/dL (8.3-10.6); Chloride 104 mmol/L (98-107); Cholesterol 132 mg/dL (<200); Glucose 136 mg/dL (74-106); HDL Cholesterol 44 mg/dL (>40); Potassium 4.5 mmol/L (3.5-5.1); Sodium 141 mmol/L (136-145); Total Protein 6.5 g/dL (5.7-8.2)
[2025-04-05 14:32] LABS: 1,25-Dihydroxyvitamin D 46 pg/mL (18-78)
== END 2025-03-30 14:56 | disposition home or self-care (01) ==
LOC: NCHCN 14:55
PROVIDERS: PCP Internal Medicine; Visit Provider Physician Assistant
DX: E04.1 Nontoxic single thyroid nodule (principal); E78.5 Hyperlipidemia, unspecified; E55.9 Vitamin D deficiency, unspecified; K76.0 Fatty (change of) liver, not elsewhere classified
CPT/HCPCS: 80053; 80061; 85027; 82652; 84439; 84443